=== PATIENT | female | born 1940 | race Caucasian/White ===

== ENCOUNTER → 2017-06-07 11:14 | Outpatient (CLI) | payer MEDICARE, SELFPAY ==
[2017-06-07 13:07] LABS: Absolute Lymphocyte Count 1.81 X10^3/ul (0.83-4.51); Absolute Neutrophil Count 4.9 X10^3/uL (2.0-7.7); Basophil# 0.03 X10^3/uL; Basophil% 0.4 % (0-1); Eosinophil# 0.06 X10^3/uL; Eosinophils% 0.8 % (0-5); Hematocrit 45.4 % (37-47); Hemoglobin 14.9 g/dl (12.0-15.0); Lymphocyte # 1.81 X10^3/ul (4.0); Lymphocyte % 24.3 % (19-41); Mean Corp Hgb Conc 32.8 g/gl (32-36); Mean Corpuscular Hgb 31.8 pg (27.0-32.0); Mean Corpuscular Volume 96.8 fL (81-99); Mean Platelet Vol. 12.1 fl (6.2-12.0); Monocyte# 0.66 X10^3/uL; Monocyte% 8.8 % (0-10); Neutrophil # 4.85 X10^3/uL (2.7-7.7); Platelet Count 259 K/mm3 (150-450); RBC Distribution Width CV 13.5 % (11.6-14.6); RBC Distribution Width SD 47.9 fl (35.1-43.9); Red Blood Count 4.69 M/mm3 (4.2-5.4); White Blood Count 7.5 K/mm3 (4.4-11.0)
[2017-06-07 13:11] LABS: POSITIVE COUNT NO; POSITIVE DIFFERENTIAL NO; POSITIVE MORPHOLOGY NO
[2017-06-07 13:20] LABS: D-Dimer Quantitative (DVT/PE) 0.61 FEU/ug/m (0.27-0.49)
[2017-06-07 13:26] LABS: Vitamin D,25 Hydroxy 31.7 ng/mL (29.95-100.01)
[2017-06-07 13:29] LABS: AST(SGOT) 15 U/L (15-37); Alanine Aminotransfer ALT/SGPT 23 U/L (13-56); Albumin, Serum 3.6 g/dL (3.2-5.0); Alkaline Phosphatase 58 U/L (45-117); Anion Gap 8 (5-15); BUN 17 mg/dL (7-18); BUN/Creat Ratio 18.1 RATIO (10-20); Calcium,Total 8.7 mg/dL (8.5-10.1); Chloride 106 mmol/L (98-107); Creatinine, Serum 0.94 mg/dL (0.55-1.02); EST Glomerular Filtration Rate 61 mL/min (>60); Est Glom Filt Rate - Afr Amer 74 mL/min (>60); Globulin 3.6 g/dL (2.2-4.2); Glucose 91 mg/dL (74-106); Potassium 3.9 mmol/L (3.5-5.1); Protein, Total 7.2 g/dL (6.4-8.2); Sodium Level 138 mmol/L (136-145); Thyroid Stim Hormone (TSH) 1.92 uIU/mL (0.358-3.74)
[2017-06-07 13:35] LABS: BNP,B-Type NATRIURETIC PEPTIDE 20.7 pg/mL (0-100)
== END ==
PROVIDERS: Family Provider Family Medicine Geriatric Medicine; PCP Family Medicine Geriatric Medicine; Visit Provider Family Medicine Geriatric Medicine
DX: R06.02 Shortness of breath (principal); E55.9 Vitamin D deficiency, unspecified; I10 Essential (primary) hypertension
CPT/HCPCS: 36415; 80053; 82306; 83880; 84443; 85025; 85379

== ENCOUNTER → 2017-06-13 14:49 | Outpatient (CLI) | payer MEDICARE, SELFPAY ==
--- NOTE | 2017-06-13 | IMM_PTH ---
PATIENT: BRIANNE CALL LOC: [facility] U#:[id number] AGE/SX: 84/F ROOM: RE06/13/[address]: Dr. Scott Hull MD : 1940 BED: DIS: SPEC #: [id number] RECD: 06/15/17 13:23 STATUS: ANDREW REQ #: [id number] PEGGY: 06/13/17 00:[address]: Scott Hull [facility] DEPT: IMMUNOHISTOCHEMISTRY RECD BY: Ching Sanderson Tissues: Skin of face, NOS Procedures: BCL-2 (add) CD10 (add) CK14 (add) CK5-6 (add) Vimentin (add) Pankeratin (initial) P40 (add) PHYSICIAN & INSTITUTION [place] [id number] SPECIMEN INFORMATION: Tissue Source: Face, right side of nose Clinical Info: L98.9 Specimen Number: [id number] CPT code: 28430, 16360 x6 METHODOLOGY: Deparaffinized sections of prefer/formalin-fixed tissue or PAP/DQ stained slides are incubated with monoclonal/polyclonal antibodies/oligonucleotide probes. Localization is made via biotin free immunoperoxidase method. Appropriate controls are performed and reacted as expected. Results on target cell population are indicated in the following table: RESULTS: ANTIBODY / CLONE RESULT AE1-3 (AE1/AE3/PCK26) positive BCL-2 (bcl-2/100/D5) positive CD10 (56C6) positive, focal Vimentin (V9) negative CK5-6 (D5 & 1684) positive CK14 (LL002) positive P40 (BC28) positive These tests were developed and their performance characteristics determined by [facility]. They may not have been cleared or approved by the U.S. Food and Drug Administration. The FDA has determined that such clearance or approval is not necessary. INTERPRETATION: Skin lesion of nose, biopsy: Consistent with basosquamous carcinoma. AM:sanjuanita 06/19/17 Case has been reviewed in consultation with Dr. Koehler who concurs with the above diagnosis. IDC:LEE ANN
--- NOTE | 2017-06-13 13:08 | TISS_PTH ---
PATIENT: BRIANNE CALL LOC: [facility] U#:[id number] AGE/SX: 84/F ROOM: RE06/13/[address]: Dr. Scott Hull MD : 1940 BED: DIS: SPEC #: [id number] RECD: 06/13/17 15:40 STATUS: ANDREW WENDIE #: [id number] PEGGY: 06/13/17 13:[address]: Scott Hull [facility] DEPT: SURGICAL PATHOLOGY RECD BY: Digna Avendano Tissues: Skin of nose, NOS Procedures: Surgery Specimen Level IV HEADER OPERATION: Not noted PRE-OP DIAGNOSIS: L98.9, 709.9 TISSUE SUBMITTED: Face, right side of nose MICROSCOPIC DIAGNOSIS Skin lesion of nose, biopsy: Consistent with basosquamous carcinoma. AM:sanjuanita 06/19/17 COMMENT The lesion extends to the deep margin of excision. Clinical correlation is necessary. Case has been reviewed in consultation with Dr. Koehler who concurs with the above diagnosis. IDC:SJ MICROSCOPIC DESCRIPTION Slides are reviewed. GROSS DESCRIPTION Received is one container labeled with the patient's name and not further designated. The specimen consists of a discoid fragment of light chadwick skin measuring 0.8 x 0.7 x 0.2 cm. The specimen is inked, bisected and totally submitted in one cassette. / AM:sanjuanita 06/14/17 TC:0 CPT: 33452
== END ==
PROVIDERS: Family Provider Family Medicine Geriatric Medicine; PCP Family Medicine Geriatric Medicine; Visit Provider Family Medicine Geriatric Medicine
DX: L98.9 Disorder of the skin and subcutaneous tissue, unspecified (principal)
CPT/HCPCS: 88305; 88341; 88342

== ENCOUNTER → 2017-07-26 07:58 | Outpatient (CLI) | payer MEDICARE, SELFPAY ==
[2017-07-26 08:37] LABS: Absolute Lymphocyte Count 1.76 X10^3/ul (0.83-4.51); Basophil# 0.04 X10^3/uL; Basophil% 0.5 % (0-1); Eosinophil# 0.13 X10^3/uL; Eosinophils% 1.7 % (0-5); Hematocrit 43.3 % (37-47); Hemoglobin 14.4 g/dl (12.0-15.0); Lymphocyte # 1.76 X10^3/ul (4.0); Lymphocyte % 22.8 % (19-41); Mean Corp Hgb Conc 33.3 g/gl (32-36); Mean Corpuscular Hgb 32.7 pg (27.0-32.0); Mean Corpuscular Volume 98.4 fL (81-99); Monocyte# 0.73 X10^3/uL; Monocyte% 9.4 % (0-10); Neutrophil # 5.03 X10^3/uL (2.7-7.7); Neutrophil % 65.1 % (47-70); Platelet Count 228 K/mm3 (150-450); RBC Distribution Width CV 13.7 % (11.6-14.6); White Blood Count 7.7 K/mm3 (4.4-11.0)
[2017-07-26 08:38] LABS: POSITIVE COUNT NO; POSITIVE DIFFERENTIAL NO; POSITIVE MORPHOLOGY NO
== END ==
PROVIDERS: Family Provider Family Medicine Geriatric Medicine; PCP Family Medicine Geriatric Medicine; Visit Provider Specialist
DX: M17.11 Unilateral primary osteoarthritis, right knee (principal)
CPT/HCPCS: 36415; 85025

== ENCOUNTER → 2017-09-07 13:54 | Outpatient (CLI) | payer MEDICARE, SELFPAY ==
[2017-09-07 16:49] LABS: AST(SGOT) 12 U/L (15-37); Alanine Aminotransfer ALT/SGPT 16 U/L (13-56); Albumin, Serum 3.8 g/dL (3.2-5.0); Alkaline Phosphatase 49 U/L (45-117); Bilirubin, Direct 0.21 mg/dL (0.00-0.30); Globulin 2.8 g/dL (2.2-4.2); Protein, Total 6.6 g/dL (6.4-8.2); Thyroid Stim Hormone (TSH) 1.66 uIU/mL (0.358-3.74)
== END ==
PROVIDERS: Family Provider Family Medicine Geriatric Medicine; PCP Family Medicine Geriatric Medicine; Visit Provider Family Medicine Geriatric Medicine
DX: I10 Essential (primary) hypertension (principal)
CPT/HCPCS: 36415; 80076; 82306; 84443

== ENCOUNTER → 2017-09-11 09:25 | Outpatient (CLI) | payer MEDICARE, SELFPAY ==
--- NOTE | 2017-09-11 09:26 | STE_ITS ---
Reason For Study: AFIB/FLUTTER Stress Results Protocol: Dobutamine Maximum Predicted HR: 144 bpm Target HR: 122 bpm% Maximum Predicted HR: 90 % DurationHeart Rate Stage (mm:ss) (bpm) BPDos e Comment BASELINE 70 134/73 0.2 ML STAGE 1 3:25 80 152/8610.000.1 ML STAGE 2 3:00 12 0 156/7220.00 STAGE 3 2:22 12 9 136/5030.000.2 ML RECOVERY 90 128/81 0.2 ML Stress Duration: 8:47 mm:ss Maximum Stress HR: 129 bpm Baseline Echocardiogram Findings The estimated ejection fraction is 65 %. Stress Echo Wall motion Data Resting WMIntermediate WMStress WM Resting Wall Motion Wall Motion Stress No regional wall motion No regional wall motion abnormalities noted. abnormalities noted. EKG Data Atrial fibrillation with controlled vent response. The patient was titrated from 10 mcg to a maximun of 30 mcg of dobutamine during the stress. During dobutamine infusion, there were no ST or T wave changes noted to suggest ischemia. No clinical angina was noted. Interpretation Summary The study was technically difficult. Contrast injection was performed. The estimated ejection fraction is 65 %. The patient was titrated from 10 mcg to a maximun of 30 mcg of dobutamine during the stress. Normal, adequate, dobutamine echocardiogram. Negative for ischemia by EKG and echocardiographic criteria. No anginal symptoms noted. Baseline atrial fibrillation with rare PVCs during infusion. Appropriate blood pressure response to dobutamine. Decreased sensitivity due to poor echo windows requiring Definity agent enhancement. Final LVEF is 75%. Baseline peak gradient across the aortic valve estimated to be 28 mmHg. No complications Ordering Physician: Gerald Barragna Referring Physician: Gerald Barragan Performed By: Genoveva Arias, TYLER, RVT
== END ==
PROVIDERS: Family Provider Family Medicine Geriatric Medicine; PCP Family Medicine Geriatric Medicine; Visit Provider Internal Medicine Cardiovascular Disease
DX: Z01.810 Encounter for preprocedural cardiovascular examination (principal); Z95.2 Presence of prosthetic heart valve; Z90.710 Acquired absence of both cervix and uterus; Z98.890 Other specified postprocedural states; I10 Essential (primary) hypertension; Z90.49 Acquired absence of other specified parts of digestive tract
CPT/HCPCS: 93017; 93350; J7030; Q9957; A4216; C8928

== ENCOUNTER → 2017-09-13 08:31 | Outpatient (CLI) | payer MEDICARE, SELFPAY ==
--- NOTE | 2017-09-13 08:32 | ECHOD_ITS ---
Reason For Study: AFIB Procedure This was a 2D Doppler, Color Flow transthoracic echocardiogram. Exam performed in department. Left Ventricle Normal size and thickness. The estimated ejection fraction is 60 %. No regional wall motion abnormalities noted. Right Ventricle Mildly dilated right ventricle. Normal systolic function. Atria The left atrium is severely enlarged. Normal right atrium. Normal atrial septum. Mitral Valve Mild diffuse mitral valve thickening. Severe mitral annular calcification extending into the posterior leaflet. Trivial mitral valve insufficiency. Tricuspid Valve Normal tricuspid valve. Trivial tricuspid valve insufficiency. Right ventricular systolic pressure estimated to be 34 mmHg. Aortic Valve Peak aortic valve gradient 22 mmHg. Mean aortic valve gradient 13 mmHg. Bioprosthetic aortic valve. Great Vessels Normal aortic root. Mild atherosclerosis of the aortic arch. Normal inferior vena cava. Inferior vena cava collapse with sniff. Pericardium/Pleural No pericardial effusion. MMode/2D Measurements & Calculations LVIDd: 4.4 cm IVSd: 1.1 cm LVOT diam: 2.0 cm LVIDs: 3.1 cm LVPWd: 1.2 cm LVOT area: 3.2 cm2 RVDd: 3.5 cm FS: 29.0 % Ao root diam: 3.4 cm LAV(MOD-bp): 85.3 ml LA dimension: 4.5 cm LAV(MOD-bp) Indexed: 43.3 ml/m2 LA A4 area: 26.4 cm2 LAV(MOD-sp2): 84.0 ml LAV(MOD-sp4): 87.0 ml RA A4 area: 18.5 cm2 Doppler Measurements & Calculations MV E max sujey: 96.4 cm/sec MV V2 max: 111.7 cm/sec Ao V2 max: 233.6 cm/sec MV max P.0 mmHg Ao max P.0 mmHg MV V2 mean: 45.8 cm/sec Ao V2 mean: 174.1 cm/sec MV mean P.2 mmHg Ao mean P.3 mmHg MV V2 VTI: 34.1 cm Ao V2 VTI: 54.0 cm MVA(VTI): 1.3 cm2 RAMÓN(I,D): 0.81 cm2 RAMÓN(V,D): 0.79 cm2 LV V1 max: 58.1 cm/sec SV(LVOT): 44.0 ml PA V2 max: 73.0 cm/sec LV V1 max P.4 mmHg LV V1 mean P.86 mmHg LV V1 mean: 44.7 cm/sec LV V1 VTI: 13.8 cm TR max sujey: 221.5 cm/sec TR max P.7 mmHg Interpretation Summary The estimated ejection fraction is 60 %. Right ventricular systolic pressure estimated to be 34 mmHg. normal functioning bioprosthetic aortic valve. Mildly dilated right ventricle. Pt appears to be in atrial fibrillation. Compared to echo report dated 01/09/2017, pt now in atrial fibrillation and RVSP has gone from 18 to 34 mm Hg. Ordering Physician: Gerald Barragan Referring Physician: LUCINDA GALLAGHER [facility] Performed By: Corrie Wooten, TYLER, RVT
== END ==
PROVIDERS: Family Provider Family Medicine Geriatric Medicine; PCP Family Medicine Geriatric Medicine; Visit Provider Internal Medicine Cardiovascular Disease
DX: I10 Essential (primary) hypertension (principal); Z98.890 Other specified postprocedural states; Z90.710 Acquired absence of both cervix and uterus; Z90.49 Acquired absence of other specified parts of digestive tract; Z95.2 Presence of prosthetic heart valve; I50.32 Chronic diastolic (congestive) heart failure
CPT/HCPCS: 36415; 80048; 93306

== ENCOUNTER → 2017-09-13 10:18 | Outpatient (CLI) | payer MEDICARE, SELFPAY ==
[2017-09-13 11:43] LABS: Anion Gap 9 (5-15); BUN 37 mg/dL (7-18); Calcium,Total 9.2 mg/dL (8.5-10.1); Chloride 104 mmol/L (98-107); Creatinine, Serum 1.37 mg/dL (0.55-1.02); EST Glomerular Filtration Rate 40 mL/min (>60); Est Glom Filt Rate - Afr Amer 48 mL/min (>60); Glucose 93 mg/dL (74-106); Potassium 4.1 mmol/L (3.5-5.1); Sodium Level 138 mmol/L (136-145)
== END ==
PROVIDERS: Family Provider Family Medicine Geriatric Medicine; PCP Family Medicine Geriatric Medicine; Visit Provider Family Medicine Geriatric Medicine
DX: I50.32 Chronic diastolic (congestive) heart failure (principal)
CPT/HCPCS: 36415; 80048

== ENCOUNTER 2017-09-19 06:47 | Inpatient (IN) | payer MEDICARE, SELFPAY ==
[2017-09-07 09:01] VITALS: BP 150/81; PULSE 49; RESP 16; TEMP 36.3; O2SAT 95; BMI 39.6
[2017-09-07 11:08] LABS: Absolute Neutrophil Count 4.6 X10^3/uL (2.0-7.7); Basophil# 0.05 X10^3/uL; Basophil% 0.7 % (0-1); Eosinophil# 0.11 X10^3/uL; Eosinophils% 1.5 % (0-5); Hematocrit 45.8 % (37-47); Hemoglobin 15.2 g/dl (12.0-15.0); Lymphocyte % 23.8 % (19-41); Mean Corp Hgb Conc 33.2 g/gl (32-36); Mean Corpuscular Hgb 32.1 pg (27.0-32.0); Mean Corpuscular Volume 96.8 fL (81-99); Mean Platelet Vol. 12.3 fl (6.2-12.0); Monocyte# 0.65 X10^3/uL; Monocyte% 9.1 % (0-10); Neutrophil # 4.59 X10^3/uL (2.7-7.7); Neutrophil % 64.2 % (47-70); Platelet Count 223 K/mm3 (150-450); RBC Distribution Width CV 13.4 % (11.6-14.6); Red Blood Count 4.73 M/mm3 (4.2-5.4); White Blood Count 7.2 K/mm3 (4.4-11.0)
[2017-09-07 11:10] LABS: POSITIVE COUNT NO; POSITIVE DIFFERENTIAL NO; POSITIVE MORPHOLOGY NO
[2017-09-07 11:41] LABS: Anion Gap 6 (5-15); BUN 19 mg/dL (7-18); BUN/Creat Ratio 19.2 RATIO (10-20); Calcium,Total 8.8 mg/dL (8.5-10.1); Chloride 106 mmol/L (98-107); Creatinine, Serum 0.99 mg/dL (0.55-1.02); EST Glomerular Filtration Rate 58 mL/min (>60); Est Glom Filt Rate - Afr Amer 70 mL/min (>60); Estimated Creatinine Clearance 38.24 ml/min; Glucose 84 mg/dL (74-106); Potassium 3.9 mmol/L (3.5-5.1); Sodium Level 137 mmol/L (136-145)
--- NOTE | 2017-09-07 14:11 | PCM.HP.BLA ---
History and Physical DATE OF SURGERY: 09/19/2017 SCHEDULED PROCEDURE: Right total knee arthroplasty HISTORY OF PRESENT ILLNESS: This is a 76-year-old female who is been having ongoing pain in bilateral knees for over 10 years. Patient's right knee has been greater than her left knee. Patient does complain of stiffness in the knees. She has pain that is aching. Pain is increased with going up and down stairs. Pain is located behind the knee. She does have difficult time with prolonged walking and sitting. Patient states she has increased pain with activities of daily living including bathing and housework. She feels unsafe going on long walks. Patient has tried conservative measures consisting of rest, ice, elevation with minimal relief. She has had multiple cortisone injections with minimal relief. Patient has tried home exercises with no relief in symptoms. Patient has been using oral medications consisting of ibuprofen with minimal relief. She denies previous surgery on the right knee. Patient currently denies any chest pain, shortness of breath, fevers chills, recent infections. Patient does have a medical history pertinent for hypertension and previous heart valve replacement. 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 Barragan for her policewoman. We are obtaining surgical clearance from patient's policewoman. REVIEW OF SYSTEMS: ROS: Const: Denies change in appetite, fever and weight change. CV: Reports irregular heartbeat, but denies chest pain and heart murmur. Resp: Reports pneumonia and shortness of breath, but denies cough, tuberculosis and wheezing. GI: Reports heartburn, but denies constipation, diarrhea, nausea, rectal itching, bloody stools and vomiting. : Denies incontinence. Musculo: Reports trouble walking, but denies leg swelling, pain and weakness. Skin: Denies Raynaud's, history of shingles and tattoo. Neuro: Denies ambulatory dysfunction, dizziness, numbness/tingling and tremor. Psych: Reports insomnia, but denies anxiety and stress. Osei/Lymph: Denies anemia, bleeding/bruising tendency and past transfusion. Reviewed, no changes. PAST MEDICAL HISTORY: Advance Care Plan: Other Directive, LIVING WILL Effective Date: 07/24/2017 PMH: Medical Problems: Arthritis, High Blood Pressure Accidents: None Surgical Hx: Appendectomy, Heart Valve Replacement, Hysterectomy Anesthesia Complications: None Assistive Devices: Dentures, Glasses Reviewed, no changes. SOCIAL HISTORY: SH: Marital: .Occupation: Retired.Work Status: Retired.Hand Dominance: Right-handed. Personal Habits: Cigarette Use: Never Smoked Cigarettes.Alcohol: Denies use.Drug Use: Denies Use.Enjoy Exercising: Never Exercises. Reviewed, no changes. VITALS: Ht: 62 Wt: 215lb Wt k.524 BMI: 39.3 BP: 138/72 Pulse: 74 Resp: 16 T: 98.1 T: 36.7C ALLERGIES: Lisinopril MEDICATIONS: Losartan Potassium 100 mg 1po qday, Metoprolol Succinate ER 25 mg 1po qday, Vitamin D2 400 Unit 1po qday, Symbicort 160-4.5 mcg/Act 2 puffs bid PRE-OP EXAM: General appearance:NORMAL Other: Eyes: Conjunctivae and lids: NORMAL Pupils: ERR Ears, Nose, Mouth, and Throat: NORMAL Other: Inspection of lips, teeth and gums: NORMAL Other: Neck: Examination of neck: no masses noted. Respiratory: Assessment of respiratory effort: NORMAL Other: Auscultation of lungs: clear to auscultation no wheezes, rhonchi or rales. Cardiovascular: Auscultation of heart: regular rate and rhythm, no murmurs, gallops or rubs. Exam of carotid arteries: NORMAL Other: Gastrointestinal: Exam of abdomen: soft, nontender, nondistended bowel sounds present. PHYSICAL EXAMINATION: Patient walks with an antalgic gait. Right knee has tenderness to palpation of the medial joint line and lateral joint line. Patient does have varus alignment. Range of motion is 0? of extension to 115? of flexion with pain on end range. Sensations intact to light touch. IMAGING STUDIES: X-rays of bilateral knees were obtained at [facility] [place] on July 24, 2017 which does reveal bilateral varus alignment with medial joint space narrowing, subchondral sclerosis, and osteophyte formation consistent with bilateral severe tricompartmental osteoarthritis. IMPRESSION: 1. Severe bilateral knee tricompartmental osteoarthritis 2. Hypertension 3. History of heart valve replacement PLAN: Dr. Gross did discuss and review with the patient all treatment options including surgical versus nonsurgical. Patient wishes to proceed with above-stated procedure. Potential risks, benefits, and complications of this procedure were discussed in detail including but not limited to , infection, nerve and blood vessel damage, persistent pain, numbness, tingling, paresthesias, blood clot, pulmonary embolism, and requirement for further surgery. The patient expressed full understanding has no further questions for the doctor. Patient does agree to proceed with the above-stated procedure and has signed the surgery consent form. Patient will undergo preoperative lab work and EKG. We will obtain surgical clearance from patient's policewoman. ___ I have re-examined the patient. There are no clinical changes since date of exam. ___ See progress notes for changes. ___ Dictated on admission Date: Time: Signature:
--- NOTE | 2017-09-07 14:19 | HP.PCM_ITS ---
History and Physical DATE OF SURGERY: 09/19/2017 SCHEDULED PROCEDURE: Right total knee arthroplasty HISTORY OF PRESENT ILLNESS: This is a 76-year-old female who is been having ongoing pain in bilateral knees for over 10 years. Patient's right knee has been greater than her left knee. Patient does complain of stiffness in the knees. She has pain that is aching. Pain is increased with going up and down stairs. Pain is located behind the knee. She does have difficult time with prolonged walking and sitting. Patient states she has increased pain with activities of daily living including bathing and housework. She feels unsafe going on long walks. Patient has tried conservative measures consisting of rest, ice, elevation with minimal relief. She has had multiple cortisone injections with minimal relief. Patient has tried home exercises with no relief in symptoms. Patient has been using oral medications consisting of ibuprofen with minimal relief. She denies previous surgery on the right knee. Patient currently denies any chest pain, shortness of breath, fevers chills, recent infections. Patient does have a medical history pertinent for hypertension and previous heart valve replacement. 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 We are obtaining surgical clearance from patient's filler shredder machine. REVIEW OF SYSTEMS: ROS: Const: Denies change in appetite, fever and weight change. CV: Reports irregular heartbeat, but denies chest pain and heart murmur. Resp: Reports pneumonia and shortness of breath, but denies cough, tuberculosis and wheezing. GI: Reports heartburn, but denies constipation, diarrhea, nausea, rectal itching , bloody stools and vomiting. : Denies incontinence. Musculo: Reports trouble walking, but denies leg swelling, pain and weakness. Skin: Denies Raynaud's, history of shingles and tattoo. Neuro: Denies ambulatory dysfunction, dizziness, numbness/tingling and tremor. Psych: Reports insomnia, but denies anxiety and stress. Osei/Lymph: Denies anemia, bleeding/bruising tendency and past transfusion. Reviewed, no changes. PAST MEDICAL HISTORY: Advance Care Plan: Other Directive, LIVING WILL Effective Date: 07/24/2017 PMH: Medical Problems: Arthritis, High Blood Pressure Accidents: None Surgical Hx: Appendectomy, Heart Valve Replacement, Hysterectomy Anesthesia Complications: None Assistive Devices: Dentures, Glasses Reviewed, no changes. SOCIAL HISTORY: SH: Marital: .Occupation: Retired.Work Status: Retired.Hand Dominance: Right- handed. Personal Habits: Cigarette Use: Never Smoked Cigarettes.Alcohol: Denies use.Drug Use: Denies Use.Enjoy Exercising: Never Exercises. Reviewed, no changes. VITALS: Ht: 62 Wt: 215lb Wt k.524 BMI: 39.3 BP: 138/72 Pulse: 74 Resp: 16 T: 98.1 T: 36.7C ALLERGIES: Lisinopril MEDICATIONS: Losartan Potassium 100 mg 1po qday, Metoprolol Succinate ER 25 mg 1po qday, Vitamin D2 400 Unit 1po qday, Symbicort 160-4.5 mcg/Act 2 puffs bid PRE-OP EXAM: General appearance:NORMAL Other: Eyes: Conjunctivae and lids: NORMAL Pupils: ERR Ears, Nose, Mouth, and Throat: NORMAL Other: Inspection of lips, teeth and gums: NORMAL Other: Neck: Examination of neck: no masses noted. Respiratory: Assessment of respiratory effort: NORMAL Other: Auscultation of lungs: clear to auscultation no wheezes, rhonchi or rales. Cardiovascular: Auscultation of heart: regular rate and rhythm, no murmurs, gallops or rubs. Exam of carotid arteries: NORMAL Other: Gastrointestinal: Exam of abdomen: soft, nontender, nondistended bowel sounds present. PHYSICAL EXAMINATION: Patient walks with an antalgic gait. Right knee has tenderness to palpation of the medial joint line and lateral joint line. Patient does have varus alignment. Range of motion is 0? of extension to 115? of flexion with pain on end range. Sensations intact to light touch. IMAGING STUDIES: X-rays of bilateral knees were obtained at [facility] [place] on July 24, 2017 which does reveal bilateral varus alignment with medial joint space narrowing, subchondral sclerosis, and osteophyte formation consistent with bilateral severe tricompartmental osteoarthritis. IMPRESSION: 1. Severe bilateral knee tricompartmental osteoarthritis 2. Hypertension 3. History of heart valve replacement PLAN: Dr. Gross did discuss and review with the patient all treatment options including surgical versus nonsurgical. Patient wishes to proceed with above- stated procedure. Potential risks, benefits, and complications of this procedure were discussed in detail including but not limited to , infection , nerve and blood vessel damage, persistent pain, numbness, tingling, paresthesias, blood clot, pulmonary embolism, and requirement for further surgery. The patient expressed full understanding has no further questions for the doctor. Patient does agree to proceed with the above-stated procedure and has signed the surgery consent form. Patient will undergo preoperative lab work and EKG. We will obtain surgical clearance from patient's filler shredder machine. ___ I have re-examined the patient. There are no clinical changes since date of exam. ___ See progress notes for changes. ___ Dictated on admission Date: Time: Signature:
--- NOTE | 2017-09-07 15:54 | SDCEKG_ITS ---
Test Reason : Blood Pressure : / mmHG Vent. Rate : 043 BPM Atrial Rate : 060 BPM P-R Int : 000 ms QRS Dur : 092 ms QT Int : 420 ms P-R-T Axes : 000 -13 024 degrees QTc Int : 354 ms Atrial fibrillation with slow ventricular response Inferior infarct (cited on or before 01-MAY-2015) Cannot rule out Anterior infarct (cited on or before 01-MAY-2015) Abnormal ECG Confirmed by CAROLE FIELD ([id number]), make up editor SHASHA DIEZ ([id number]) on 09/11/2017 2:49:54 PM Referred By: Rios Gross Confirmed By:CAROLE FIELD
[2017-09-19] VITALS (13 sets, daily range): BP systolic 98–149; BP diastolic 40–78; PULSE 46–79; RESP 16–18; TEMP 36.1–37; O2SAT 93–100; BMI 39.6; BMI 40.8
--- NOTE | 2017-09-19 07:06 | RAD_ITS ---
STUDY: X-RAY - LEFT KNEE REASON FOR EXAM: Female, 76 years old. Total knee replacement. TECHNIQUE: 2 view(s) of the knee. COMPARISON: Comparison is made with prior examination dated November 27, 2015. FINDINGS: Normal visualized distal femur. Normal visualized proximal tibia and fibula. Normal proximal tibiofibular articulation. The patient is status post right total knee replacement. There is good alignment Postoperative soft tissue changes. RAD/Knee 1 or 2 Views IMPRESSION: Status post total knee replacement. There is good alignment. Postoperative soft tissue changes. Electronically Signed: Hugo De Leon MD at 14:52 EDT Tel [phone], Service support ,
[2017-09-19] MEDS: oxyCODONE HCl Cr 10 MG Tablet PO (07:43)
[2017-09-19] MEDS: Acetaminophen 500 MG Tablet 1000 MG PO ×3 (07:43→22:42)
[2017-09-19] MEDS: Scopolamine 1mg/72hr Patch 1 PATCH TD (08:00)
[2017-09-19] MEDS: Lactated Ringers 1,000 ML 999 ML IV (08:10)
[2017-09-19] MEDS: Cefazolin 2 GM in 0.9% Normal Saline 100 ML IV (09:16)
--- NOTE | 2017-09-19 10:37 | PCM.OPRPT ---
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 Guero size 3 triathlon cruciate retaining distal femoral component 2. Guero size 4 universal tibial baseplate 3. Guero X3 11 mm CS polyethylene 4. Guero X3 27 mm symmetric patella Brief history operative indications: 76-year-old f with history of right knee osteoarthritis with radiographic findings with loss of joint space, osteophyte formation and subchondral sclerosis. Failed conservative measures as mentioned in the H&P. Discussion of total knee arthroplasty as well as risk and benefits were discussed the patient including but not limited to blood loss, DVTs, PEs, neurovascular damage, general risk of anesthesia including loss of life, and stiffness or instability were discussed with patient. Patient demonstrated understanding and was able to sign informed consent. Procedure: On the date of procedure patient's right lower extremity was marked in the preoperative area. The patient was then taken back to the operating room where the patient was placed on the table in the supine position. All bony prominences were identified a well-padded. Anesthesia assumed control of the C-spine and airway and remained controlled throughout the remainder of the procedure. A tourniquet was placed on the right upper thigh and the leg was prepped in a sterile fashion. The surgeon then scrubbed at this time. Upon reentering the room the right lower extremity was draped in a standard orthopedic fashion. A timeout was then called and everyone agreed upon the side, the site, the procedure to be performed, patient's identity and antibiotics given. Esmarch bandage was used to exsanguinate the extremity and the tourniquet was placed up to 250 mmHg with the knee in flexion. A midline skin incision was made and sharp dissection was taken down through skin subcutaneous tissue and fat. The standard medial parapatellar incision was made and the patella was subluxed laterally. The standard deep MCL release was done and the fat pad was resected. Next our attention was directed to the femur. Navigation pins were placed, navigation was registered. The distal femoral cutting block was pinned into place and 10 mm of distal femur resection was completed. The distal femoral cut was verified with navigation. The knee was then placed in deep flexion in the standard [employer] sizing guide was used to place the femoral component in 3? external rotation based on the posterior condyles. A size 3 4-in-1 cutting block was selected and pinned into place. The anterior cut was then made and checked for notching. The subsequent anterior chamfer cuts, posterior condylar cuts and posterior chamfer cuts were made while ensuring the MCL and LCL were protected. Our attention was then turned to the tibia where the navigation pins were placed, navigation was registered. [employer] tibial cutting guide was used to make the appropriate tibial cut 90 degrees from the mechanical axis. Navigation was then used to verify the cut. A size 4 tibial base plate was selected. the knee was flexed to 90 degrees and the soft tissues and posterior osteophytes were removed from the joint. 40 cc of the periarticular injection was injected into the posterior medial corner of the joint. Standard box cutting jig was placed in a box cut was made. The appropriate trials were then placed on the femur and tibia. A trial polyethylene was trialed to ensure proper balancing and stability of the knee. Patella tracking, was then verified and corrected appropriately as needed. The appropriate tibial internal rotation was then marked with a bovie. Our attention was then directed to the patella. The patella was everted and a flat resection was made. The lug holes were drilled and the patella trial was placed. Patellar tracking was checked and deemed appropriate. Once we were happy lug holes were drilled for the femur and trial components were removed. the tibia was subluxed and pinned into place and the keel was punched and the canal was reamed. Final components were verified and opened, and cement was mixed in a vacuum. [place] Simplex cement was used. The wound was copiously irrigated with normal saline. When the cement was ready the components were cemented into place starting with the tibia, femur and finally the patella. The trial poly component was placed and the knee was placed in full extension. All excess cement was removed in the process. Once the cement had cured the tracking, alignment and balance were verified and a size 11 mm polyethylene component was placed. Once the final components were placed the wound was copiously irrigated with normal saline solution and the periarticular injection was given. The wound was closed in a layer mayorga fashion using #1 vicryl interrupted sutures for the arthrotomy, 2-0 interrupted Vicryl suture for the subcuticular layer and alicia for final skin closure. A sterile compressive dressing was then placed. The patient was then awakened from anesthesia, transferred to the [place] and transferred to the PACU for recovery. Post op plan DVT ppx: Patient will restart Eliquis, thigh high compression stockings Follow up: in office in 2 weeks for wound check PT: to start POD #0 at hospital, outpatient PT should be arranged. My physician photographer assistant was a vital part of this case. He was important in appropriate retraction during the case, and protection of soft tissues during bony cuts. His intimate knowledge of the case and my steps aided in safe and expedient completion of the procedure as well as appropriate position of the leg during the case. He was also vital in assisting with closure under my direct supervision. Grafts/Implants Used: [place] triathlon total knee - Complications None - Admit VTE Documentation VTE Present on Admission: No VTE Mechan Device Prophylaxis: SCD's, Thigh High GEORGI Hose VTE Pharm Prophylaxis ordered?: Yes
--- NOTE | 2017-09-19 10:41 | OP.PCM_ITS ---
Report of Operation Date of Procedure: 09/19/17 Pre-Operative Diagnosis: Right knee primary Osteoarthritis Post-Operative Diagnosis: Right knee primary Osteoarthritis Surgery/Procedure Performed:: Right total knee replacement Description of Surgical Findings:: Cemented posterior stabilized leach tank tender: Lennox Chun Type of Anesthesia:: Spinal Anesthesiologist: James Lizama Special Medications: 2 g Ancef, 1 g TXA at incision, 1 g TXA closure, 10 mg Decadron, joint cocktail (5 mg Duramorph, 30 mL of 0.5% Ropivicaine, 1000 units of epinephrine, 30 mg of Toradol) Specimen's removed: Bony cuts Estimated Blood Loss (mL): 50 Fluids Replaced: 1100 mL crystalloid Description of Procedure: Implants used: 1. Guero size 3 triathlon cruciate retaining distal femoral component 2. Guero size 4 universal tibial baseplate 3. Guero X3 11 mm CS polyethylene 4. Guero X3 27 mm symmetric patella Brief history operative indications: 76-year-old f with history of right knee osteoarthritis with radiographic findings with loss of joint space, osteophyte formation and subchondral sclerosis. Failed conservative measures as mentioned in the H&P. Discussion of total knee arthroplasty as well as risk and benefits were discussed the patient including but not limited to blood loss, DVTs, PEs, neurovascular damage , general risk of anesthesia including loss of life, and stiffness or instability were discussed with patient. Patient demonstrated understanding and was able to sign informed consent. Procedure: On the date of procedure patient's right lower extremity was marked in the preoperative area. The patient was then taken back to the operating room where the patient was placed on the table in the supine position. All bony prominences were identified a well-padded. Anesthesia assumed control of the C- spine and airway and remained controlled throughout the remainder of the procedure. A tourniquet was placed on the right upper thigh and the leg was prepped in a sterile fashion. The surgeon then scrubbed at this time. Upon reentering the room the right lower extremity was draped in a standard orthopedic fashion. A timeout was then called and everyone agreed upon the side , the site, the procedure to be performed, patient's identity and antibiotics given. Esmarch bandage was used to exsanguinate the extremity and the tourniquet was placed up to 250 mmHg with the knee in flexion. A midline skin incision was made and sharp dissection was taken down through skin subcutaneous tissue and fat. The standard medial parapatellar incision was made and the patella was subluxed laterally. The standard deep MCL release was done and the fat pad was resected. Next our attention was directed to the femur. Navigation pins were placed, navigation was registered. The distal femoral cutting block was pinned into place and 10 mm of distal femur resection was completed. The distal femoral cut was verified with navigation. The knee was then placed in deep flexion in the standard [employer] sizing guide was used to place the femoral component in 3? external rotation based on the posterior condyles. A size 3 4-in-1 cutting block was selected and pinned into place. The anterior cut was then made and checked for notching. The subsequent anterior chamfer cuts, posterior condylar cuts and posterior chamfer cuts were made while ensuring the MCL and LCL were protected. Our attention was then turned to the tibia where the navigation pins were placed , navigation was registered. [employer] tibial cutting guide was used to make the appropriate tibial cut 90 degrees from the mechanical axis. Navigation was then used to verify the cut. A size 4 tibial base plate was selected. the knee was flexed to 90 degrees and the soft tissues and posterior osteophytes were removed from the joint. 40 cc of the periarticular injection was injected into the posterior medial corner of the joint. Standard box cutting jig was placed in a box cut was made. The appropriate trials were then placed on the femur and tibia. A trial polyethylene was trialed to ensure proper balancing and stability of the knee. Patella tracking, was then verified and corrected appropriately as needed. The appropriate tibial internal rotation was then marked with a bovie. Our attention was then directed to the patella. The patella was everted and a flat resection was made. The lug holes were drilled and the patella trial was placed. Patellar tracking was checked and deemed appropriate. Once we were happy lug holes were drilled for the femur and trial components were removed. the tibia was subluxed and pinned into place and the keel was punched and the canal was reamed. Final components were verified and opened, and cement was mixed in a vacuum. Guero Simplex cement was used. The wound was copiously irrigated with normal saline. When the cement was ready the components were cemented into place starting with the tibia, femur and finally the patella. The trial poly component was placed and the knee was placed in full extension. All excess cement was removed in the process. Once the cement had cured the tracking, alignment and balance were verified and a size 11 mm polyethylene component was placed. Once the final components were placed the wound was copiously irrigated with normal saline solution and the periarticular injection was given. The wound was closed in a layer [place]orga fashion using #1 vicryl interrupted sutures for the arthrotomy, 2-0 interrupted Vicryl suture for the subcuticular layer and alicia for final skin closure. A sterile compressive dressing was then placed. The patient was then awakened from anesthesia, transferred to the [place] and transferred to the PACU for recovery. Post op plan DVT ppx: Patient will restart Eliquis, thigh high compression stockings Follow up: in office in 2 weeks for wound check PT: to start POD #0 at hospital, outpatient PT should be arranged. My physician pharmacy innovation assistant was a vital part of this case. He was important in appropriate retraction during the case, and protection of soft tissues during bony cuts. His intimate knowledge of the case and my steps aided in safe and expedient completion of the procedure as well as appropriate position of the leg during the case. He was also vital in assisting with closure under my direct supervision. Grafts/Implants Used: Guero triathlon total knee - Complications None - Admit VTE Documentation VTE Present on Admission: No VTE Mechan Device Prophylaxis: SCD's, Thigh High GEORGI Hose VTE Pharm Prophylaxis ordered?: Yes
[2017-09-19] MEDS: Metoprolol Tartrate 25 MG Tablet 12.5 MG PO (14:29)
[2017-09-19] MEDS: Senna/Docusate Sodium 1 Tablet 2 TABLET PO ×2 (14:29→22:42)
[2017-09-19] MEDS: Losartan Potassium 100 MG Tablet 50 MG PO (14:30)
[2017-09-19] MEDS: Famotidine 20 MG Tablet PO (14:30)
--- NOTE | 2017-09-19 15:25 | CASEMGMT ---
LEW WEISS Face to Face with patient for initial transition planning/care coordination assessment. LEW WEISS introduced self and role at [facility]. Patient sitting up in bed, alert and oriented. Patient willing to participate in assessment and is able to answer all questions appropriately. Care providers, pharmacy, and demographics verified. Patient lives with son in a 1st floor apartment with 2 steps to enter apartment. Patient states that she has cane and walker at home. Patient wishes to discharge home with [facility] and is agreeable to [facility]. Patient states she has no further needs or concerns at this time. RN ABHISHEK sent referral to [facility] and they are able to accept the patietn. CM to follow for discharge planning needs that may arise. Disposition Plan: Patient to discharge home with [facility], family support, and follow-up plans in place.
[2017-09-19] MEDS: Lactated Ringers 1,000 ML 125 ML IV (15:54)
[2017-09-19] MEDS: Cefazolin 1 GM/50 ML BAG IV (17:22)
--- NOTE | 2017-09-19 20:30 | NURSING ---
IV site to left upper forearm area intact & patent, but does appear slightly puffy. Area warm & soft, does have some bruising, but pt denies pain. will continue to monitor.
[2017-09-19] MEDS: Albuterol 2.5 MG/3 ML VIAL.NEB. INHALATION (21:40)
[2017-09-19] MEDS: Budesonide Respules 0.5 MG/2 ML AMPUL.NEB. INHALATION (21:50)
[2017-09-19] MEDS: 0.9% NaCl Peripheral Flush Adult/Peds IV (22:57)
[2017-09-20] MEDS: Cefazolin 1 GM/50 ML BAG IV (00:27)
[2017-09-20 02:33] VITALS: BP 159/82; PULSE 50; RESP 18; TEMP 36.3; O2SAT 97
[2017-09-20] MEDS: Acetaminophen 500 MG Tablet 1000 MG PO ×2 (06:05→15:05)
[2017-09-20 06:28] LABS: Hematocrit 41.3 % (37-47); Hemoglobin 13.2 g/dl (12.0-15.0); Mean Corpuscular Hgb 31.4 pg (27.0-32.0); Mean Corpuscular Volume 98.1 fL (81-99); Mean Platelet Vol. 12.4 fl (6.2-12.0); Platelet Count 198 K/mm3 (150-450); RBC Distribution Width CV 13.4 % (11.6-14.6); RBC Distribution Width SD 48.2 fl (35.1-43.9); Red Blood Count 4.21 M/mm3 (4.2-5.4); White Blood Count 9.7 K/mm3 (4.4-11.0)
[2017-09-20 06:33] LABS: Anion Gap 9 (5-15); BUN 31 mg/dL (7-18); BUN/Creat Ratio 27.7 RATIO (10-20); Calcium,Total 8.2 mg/dL (8.5-10.1); Chloride 108 mmol/L (98-107); Creatinine, Serum 1.12 mg/dL (0.55-1.02); EST Glomerular Filtration Rate 50 mL/min (>60); Est Glom Filt Rate - Afr Amer 61 mL/min (>60); Glucose 89 mg/dL (74-106); Potassium 4.4 mmol/L (3.5-5.1); Sodium Level 141 mmol/L (136-145)
[2017-09-20 06:49] LABS: Scan Indicated on CBC? Y/N NO
[2017-09-20] MEDS: Budesonide Respules 0.5 MG/2 ML AMPUL.NEB. INHALATION (07:09)
[2017-09-20] MEDS: Albuterol 2.5 MG/3 ML VIAL.NEB. INHALATION ×2 (07:09→13:17)
[2017-09-20 07:10] VITALS: PULSE 60; RESP 18; O2SAT 90
--- NOTE | 2017-09-20 08:34 | PN.ORTHO_ITS ---
Subjective: The patient was sitting in bedside chair upon examination. Patient denies any chest pain, shortness of breath, dizziness, lightheadedness, nausea or vomiting , or calf pain. Pain is controlled on medications. No adverse overnight events. Overall patient is doing well at this point. Patient does wish to try to go home today if pain is well controlled and tolerates physical therapy. Objective: Vital signs stable and afebrile. Patient is able to plantarflex and dorsiflex actively. Sensation is intact to light touch to saphenous, sural, superficial and deep peroneal, and tibial distribution. Main dressing is clean dry and intact. Distal dressing with old drainage Negative Homans bilaterally, negative signs and symptoms of DVT. - Physical Exam General: Alert, Oriented x3, Cooperative, No apparent distress Vital Signs Temp Pulse Resp BP Pulse Ox 97.4 F L 60 18 159/82 H 90 09/20/17 02:33 09/20/17 07:10 09/20/17 07:10 09/20/17 02:33 09/20/17 07:10 Oxygen Delivery Method Room Air Weight: 101.151 kg Body Mass Index (BMI) 40.8 Intake and Output for Last 24 Hours 09/18/17 09/19/17 09/20/17 23:59 23:59 23:59 Intake Total 2514 / 2514 1329 / 1329 Output Total 150 / 150 Balance 2514 / 2514 1179 / 1179 Laboratory Tests Past 24 Hrs 09/20/17 09/20/17 05:54 05:54 WBC 9.7 RBC 4.21 Hgb 13.2 Hct 41.3 MCV 98.1 MCH 31.4 MCHC 32.0 RDW 13.4 RDW Differential 48.2 H Plt Count 198 MPV 12.4 H Sodium 141 Potassium 4.4 Chloride 108 H Carbon Dioxide 24.0 Anion Gap 9 BUN 31 H Creatinine 1.12 H Estim Creat Clear Calc 33.80 Est GFR (MDRD) Af Amer 61 Est GFR (MDRD) Non-Af 50 L BUN/Creatinine Ratio 27.7 H Glucose 89 Calcium 8.2 L Medical Necessity - Tobacco Use Smoking Status: Never smoker Assessment/Plan All Active Problems (Last Updated 09/11/17 @ 14:38 by Yari Hernandez) New onset atrial fibrillation (Acute ~08/2017) 1. S/P right total knee arthroplasty POD #1 2. Continue Pain Medications: Tylenol and OxyIR 3. DVT Prophylaxis: Patient will restart Eliquis for DVT prophylaxis. 4. PT/OT: Weightbearing as tolerated 5. H & H: 13.2/41.3, asymptomatic 6. Encouraged Incentive Spirometry 7. Disposition: Plan will be for possible discharge home this afternoon if patient's pain is well controlled and tolerates physical therapy. Plan will be for patient to undergo home health physical therapy in which case management has established. Prescriptions will be attached to chart. Patient will follow- up postoperatively per [place] [facility] postop instructions.
--- NOTE | 2017-09-20 08:37 | PCM.DC.TKR ---
Discharge Diet: No Restrictions Discharge Activity: May Not Drive May shower in (days): 1 - Turned dressing away from water Ice area for (Minutes): 20 - every hour while awake. Weight Bearing Status: Weight bearing as tolerated Elevate: Operative Extremity Additional Activity Instructions:: Wear elastic stockings for 2 weeks after your surgery. Call your doctor if your incision/area has: Continuous Slow Oozing, Sudden Increased Bleeding, Increased Pain/ Swelling, Increased Redness, Foul Smelling Discharge Call your doctor if you observe: Fever of 101 or Higher, Coldness, Increased Pain, Numbness or Tingling, Change in Color, Calf discomfort, Uncontrolled pain Remove Dressing in (days):: 4 - Okay to remove dressing on September 24, 2017 Allergies/Adverse Reactions: Allergies lisinopril Adverse Reaction (Verified 09/07/17 08:56) COUGH Medications to take at Discharge budesonide-formoterol HFA 160 mcg-4.5 mcg/actuation aerosol inhaler 2 puff INHALATION BID 07/10/17 cholecalciferol (vitamin D3) 50,000 unit capsule 50,000 unit PO Q30D 07/10/17 losartan 100 mg tablet 100 mg PO DAILY 07/10/17 metoprolol tartrate 25 mg tablet 12.5 mg PO BID tab 07/10/17 apixaban 5 mg tablet 5 mg PO BID #60 tab 09/07/17 Acetaminophen [Tylenol] 1,000 mg PO Q8 tablet 09/20/17 Oxycodone [Oxyir] 5 - 10 mg PO Q4H PRN PRN 6 Days #80 tab 09/20/17 Senna/Docusate Sodium [Senokot-S] 2 tab PO BID #20 tab 09/20/17 The following prescriptions were given: Oxycodone [Oxyir] 5 - 10 mg PO Q4H PRN PRN 6 Days #80 tab PRN Reason: Mod-Severe Pain (4-1010) Senna/Docusate Sodium [Senokot-S] 2 tab PO BID #20 tab Primary Care Physician: Scott Hull Chi, MD [Primary Care Provider] - Test Results: Please Follow Up With: Home Health Physical Therapy When: Patient will be contacted Please Follow Up With: Lennox Chun PA-C When: 10/02/17 @ 8:30 am
[2017-09-20] MEDS: oxyCODONE 5 MG Tablet PO ×2 (10:06→13:49)
[2017-09-20] MEDS: APIXABAN 5 MG TABLET PO (10:07)
[2017-09-20] MEDS: Famotidine 20 MG Tablet PO (10:07)
[2017-09-20] MEDS: Losartan Potassium 100 MG Tablet 50 MG PO (10:07)
[2017-09-20 10:08] VITALS: PULSE 61
[2017-09-20] MEDS: Senna/Docusate Sodium 1 Tablet 2 TABLET PO (10:08)
[2017-09-20] MEDS: Metoprolol Tartrate 25 MG Tablet 12.5 MG PO (10:08)
[2017-09-20 10:55] VITALS: BP 132/55; PULSE 61; RESP 18; TEMP 36.7; O2SAT 97
[2017-09-20 13:19] VITALS: PULSE 46; RESP 18
== END 2017-09-20 16:38 | disposition home health service (06) | DRG 470 ==
PROVIDERS: Admitting Provider Specialist; Family Provider Family Medicine Geriatric Medicine; PCP Family Medicine Geriatric Medicine; Visit Provider Specialist
PROC: 0SRC0J9 Replacement of Right Knee Joint with Synthetic Substitute, Cemented, Open Approach (ICD-10-PCS; CPT 27447; principal; 2017-09-19 08:55)
DX: M17.11 Unilateral primary osteoarthritis, right knee (principal); Z95.2 Presence of prosthetic heart valve; I10 Essential (primary) hypertension
CPT/HCPCS: 36415; 73560; 80048; 85025; 85027; 87081; 93005; 94640; 97110; 97116; 97162; 97166; 97530; 97535; 97802; 99251; C1776; J7120; A4216; G0463

== ENCOUNTER 2017-12-26 06:33 | Inpatient (IN) | payer MEDICARE, SELFPAY ==
[2017-12-11 15:17] VITALS: BP 142/52; PULSE 48; RESP 16; TEMP 37; O2SAT 95; BMI 39.3
[2017-12-11 15:51] LABS: Absolute Lymphocyte Count 2.08 X10^3/ul (0.83-4.51); Absolute Neutrophil Count 3.9 X10^3/uL (2.0-7.7); Basophil# 0.04 X10^3/uL; Basophil% 0.6 % (0-1); Eosinophil# 0.08 X10^3/uL; Eosinophils% 1.2 % (0-5); Hematocrit 43.6 % (37-47); Hemoglobin 14.5 g/dl (12.0-15.0); Lymphocyte # 2.08 X10^3/ul (4.0); Lymphocyte % 30.3 % (19-41); Mean Corp Hgb Conc 33.3 g/gl (32-36); Mean Corpuscular Hgb 31.8 pg (27.0-32.0); Mean Corpuscular Volume 95.6 fL (81-99); Mean Platelet Vol. 12.7 fl (6.2-12.0); Monocyte% 10.2 % (0-10); Neutrophil # 3.94 X10^3/uL (2.7-7.7); Neutrophil % 57.4 % (47-70); Platelet Count 209 K/mm3 (150-450); RBC Distribution Width CV 13.9 % (11.6-14.6); RBC Distribution Width SD 47.6 fl (35.1-43.9); Red Blood Count 4.56 M/mm3 (4.2-5.4); White Blood Count 6.9 K/mm3 (4.4-11.0)
[2017-12-11 15:52] LABS: POSITIVE COUNT NO; POSITIVE DIFFERENTIAL NO; POSITIVE MORPHOLOGY NO
[2017-12-11 16:02] LABS: BUN 16 mg/dL (7-18); Creatinine, Serum 0.98 mg/dL (0.55-1.02); Estimated Creatinine Clearance 38.02 ml/min; Glucose 89 mg/dL (74-106)
[2017-12-11 16:03] LABS: Anion Gap 7 (5-15); BUN/Creat Ratio 16.3 RATIO (10-20); Calcium,Total 8.8 mg/dL (8.5-10.1); Chloride 108 mmol/L (98-107); EST Glomerular Filtration Rate 58 mL/min (>60); Est Glom Filt Rate - Afr Amer 70 mL/min (>60); Potassium 3.7 mmol/L (3.5-5.1); Sodium Level 141 mmol/L (136-145)
--- NOTE | 2017-12-12 21:07 | PCM.HP.BLA ---
History and Physical DATE OF SURGERY: 12/26/2017 SCHEDULED PROCEDURE: Left total knee arthroplasty HISTORY OF PRESENT ILLNESS: This is a 77-year-old female who has been having ongoing pain in bilateral knees for over 10 years. Patient recently underwent a right total knee arthroplasty 3 months ago and is doing well. Patient continues to complain of ongoing left knee pain. Pain is dull. Patient does report start up pain. Pain is increased with going up and down stairs, sitting for extended periods of time. Patient has difficult time with carrying heavy things with activities of daily living. She has tried rest, ice, elevation, and previous corticosteroid injections with minimal relief. Patient has also been through formal physical therapy and home exercises with minimal relief. She has tried previous Euflexxa injection with minimal relief. She has been on oral medications consisting of Tylenol without any significant relief in pain. Patient denies previous surgery on the left knee. She has been using a cane for inflammatory assistance. Patient currently denies any chest pain, shortness of breath, fevers chills, or recent infections. Patient does have a medical history pertinent for hypertension, previous heart valve replacement 5 years ago, and recent right total knee arthroplasty in September 2017. After failing conservative measures and discussing all treatment options with Dr. Rios Gross the patient does wish to proceed with a left total knee arthroplasty. REVIEW OF SYSTEMS: ROS: Const: Denies change in appetite, fever and weight change. CV: Reports irregular heartbeat, but denies chest pain and heart murmur. Resp: Reports pneumonia and shortness of breath, but denies cough, tuberculosis and wheezing. GI: Reports heartburn, but denies constipation, diarrhea, nausea, rectal itching, bloody stools and vomiting. : Denies incontinence. Musculo: Reports trouble walking, but denies leg swelling, pain and weakness. Skin: Denies Raynaud's, history of shingles and tattoo. Neuro: Denies ambulatory dysfunction, dizziness, numbness/tingling and tremor. Psych: Reports insomnia, but denies anxiety and stress. Osei/Lymph: Denies anemia, bleeding/bruising tendency and past transfusion. Reviewed, no changes. PAST MEDICAL HISTORY: Advance Care Plan: Other Directive, LIVING WILL Effective Date: 07/24/2017 PMH: Medical Problems: Arthritis, High Blood Pressure Accidents: None Surgical Hx: Appendectomy, Heart Valve Replacement, Hysterectomy Knee Replacement Rt - (09/2017) [email or web address] Anesthesia Complications: None Assistive Devices: Dentures, Glasses Reviewed, no changes. SOCIAL HISTORY: SH: Marital: .Occupation: Retired.Work Status: Retired.Hand Dominance: Right-handed. Personal Habits: Cigarette Use: Never Smoked Cigarettes.Alcohol: Denies use.Drug Use: Denies Use.Enjoy Exercising: Never Exercises. Reviewed, no changes. VITALS: Ht: 62 Wt: 213lb Wt k.617 BMI: 39.0 BP: 154/74 Pulse: 72 Resp: 18 T: 98.2 T: 36.8C ALLERGIES: Lisinopril MEDICATIONS: Losartan Potassium 100 mg 1po qday, Metoprolol Succinate ER 25 mg 1po qday, Symbicort 160-4.5 mcg/Act 2 puffs bid, Tylenol Extra Strength 500 mg 2 by mouth every 8 hours as needed pain, Eliquis 5 mg 1po qday PRE-OP EXAM: General appearance:NORMAL Other: Eyes: Conjunctivae and lids: NORMAL Pupils: ERR Ears, Nose, Mouth, and Throat: NORMAL Other: Inspection of lips, teeth and gums: NORMAL Other: Neck: Examination of neck: no masses noted. Respiratory: Assessment of respiratory effort: NORMAL Other: Auscultation of lungs: clear to auscultation no wheezes, rhonchi or rales. Cardiovascular: Auscultation of heart: regular rate and rhythm, positive systolic murmur Exam of carotid arteries: NORMAL Other: Gastrointestinal: Exam of abdomen: soft, nontender, nondistended bowel sounds present. PHYSICAL EXAMINATION: Right knee incision is well-healed without erythema or signs of infection. Patient does walk with a limping gait. Left knee is cool to touch without erythema or signs of infection. She has tenderness to palpation over the medial joint line. Patient has varus alignment. Stable to varus and valgus stress test. Patient does have positive effusion on the left. Range of motion on the left lacks 5 of full extension to 115 of flexion with crepitus. Sensation intact to light touch. Neurovascularly intact. IMAGING STUDIES: X-rays of the left knee reveal varus alignment with medial joint space narrowing, subchondral sclerosis, osteophyte formation consistent with severe tricompartmental osteoarthritis of the left knee. IMPRESSION: 1. Severe left knee tricompartmental osteoarthritis 2. Status post 3 month right total knee arthroplasty 3. Hypertension 4. Heart valve replacement 5 years ago PLAN: Dr. Gross did discuss and review with the patient all treatment options including surgical versus nonsurgical options. Patient does wish to proceed with the above-stated procedure. Potential risks, benefits, and complications of the procedure were discussed in detail including but not limited to , infection, nerve and blood vessel damage, persistent pain, numbness, tingling, paresthesias, blood clot, pulmonary embolism, and requirement for possible further surgery. The patient expressed full understanding and has no further questions for the doctor. Patient does agree to proceed with the above-stated procedure and has signed the surgery consent form. ___ I have re-examined the patient. There are no clinical changes since date of exam. ___ See progress notes for changes. ___ Dictated on admission Date: Time: Signature:
--- NOTE | 2017-12-21 10:46 | CASEMGMT ---
Call placed to patient's cell phone to discuss d/c needs after upcoming surgery. No answer, voicemail left requesting call back. Paige Valera LPN Clinical Support
--- NOTE | 2017-12-21 11:00 | CASEMGMT ---
Patient returned phone call. Patient's plan is to return home with assistance from son who lives with her. Outpatient physical therapy is not set up but patient plans to have [facility] PT. Patient has bed/bathroom on 1st level of home with 1 step to enter home. Patient reports she always has a walker. Informed patient that RN-CM will likely follow up to assess for further needs and assist with setting up [facility] PT. Paige Valera LPN Clinical Support
[2017-12-26] VITALS (10 sets, daily range): BP systolic 81–149; BP diastolic 59–81; PULSE 46–65; RESP 16–18; TEMP 35.8–36.8; O2SAT 93–100; BMI 39.3
[2017-12-26] MEDS: Acetaminophen 500 MG Tablet 1000 MG PO ×3 (07:40→21:07)
[2017-12-26] MEDS: oxyCODONE HCl Cr 10 MG Tablet PO (07:40)
[2017-12-26] MEDS: Scopolamine 1mg/72hr Patch 1 PATCH TD (08:05)
[2017-12-26] MEDS: Lactated Ringers 1,000 ML 999 ML IV (08:10)
[2017-12-26] MEDS: Cefazolin 2 GM in 0.9% Normal Saline 100 ML IV (09:01)
--- NOTE | 2017-12-26 10:16 | PCM.OPRPT ---
Report of Operation Date of Procedure: 12/26/17 Pre-Operative Diagnosis: L knee primary OA Post-Operative Diagnosis: L knee primary OA Surgery/Procedure Performed:: Left total knee replacement Description of Surgical Findings:: Stable knee with good patella tracking natural resource manager: Lennox Chun Type of Anesthesia:: Spinal Anesthesiologist: Mor Lowery Special Medications: 2 g Ancef, 1 g TXA at incision, 1 g TXA closure, 10 mg Decadron, joint cocktail (5 mg Duramorph, 30 mL of 0.5% Ropivicaine, 1000 units of epinephrine, 30 mg of Toradol) Specimen's removed: bony cuts Estimated Blood Loss (mL): 50 Fluids Replaced: Thousand liters crystalloid Description of Procedure: Brief history operative indications: 77-year-old F with history of left knee osteoarthritis with radiographic findings with loss of joint space, osteophyte formation and subchondral sclerosis. Failed conservative measures as mentioned in the H&P. Discussion of total knee arthroplasty as well as risk and benefits were discussed the patient including but not limited to blood loss, DVTs, PEs, neurovascular damage, general risk of anesthesia including loss of life, and stiffness or instability were discussed with patient. Patient demonstrated understanding and was able to sign informed consent. Procedure: On the date of procedure patient's left lower extremity was marked in the preoperative area. The patient was then taken back to the operating room where the patient was placed on the table in the supine position. All bony prominences were identified a well-padded. Anesthesia assumed control of the C-spine and airway and remained controlled throughout the remainder of the procedure. A tourniquet was placed on the left upper thigh and the leg was prepped in a sterile fashion. The surgeon then scrubbed at this time .Upon reentering the room left lower extremity was draped in a standard orthopedic fashion. A timeout was then called and everyone agreed upon the side, the site, the procedure to be performed, patient's identity and antibiotics given. Esmarch bandage was used to exsanguinate the extremity and the tourniquet was placed up to 250 mmHg with the knee in flexion. A midline skin incision was made and sharp dissection was taken down through skin subcutaneous tissue and fat. The standard medial parapatellar incision was made and the patella was subluxed laterally. The standard deep MCL release was done and the fat pad was resected. Next our attention was directed to the femur. Navigation pins were placed, navigation was registered. The distal femoral cutting block was pinned into place and 10 mm of distal femur resection was completed. The distal femoral cut was verified with navigation. The knee was then placed in deep flexion in the standard Conjur sizing guide was used to place the femoral component in 3? external rotation based on the posterior condyles. A 4-in-1 cutting block was selected and pinned into place. The anterior cut was then made and checked for notching. The subsequent anterior chamfer cuts, posterior condylar cuts and posterior chamfer cuts were made while ensuring the MCL and LCL were protected. Our attention was then turned to the tibia where the navigation pins were placed, navigation was registered. Package Concierge tibial cutting guide was used to make the appropriate tibial cut 90 degrees from the mechanical axis. Navigation was then used to verify the cut. A universal tibial base plate was selected. the knee was flexed to 90 degrees and the soft tissues and posterior osteophytes were removed from the joint. 40 cc of the periarticular injection was injected into the posterior medial corner of the joint. The appropriate trials were then placed on the femur and tibia. A trial polyethylene was trialed to ensure proper balancing and stability of the knee. Patella tracking, was then verified and corrected appropriately as needed. The appropriate tibial internal rotation was then marked with a bovie. Our attention was then directed to the patella. The patella was everted and a flat resection was made. The lug holes were drilled and the patella trial was placed. Patellar tracking was checked and deemed appropriate. Once we were happy lug holes were drilled for the femur and trial components were removed. the tibia was subluxed and pinned into place and the keel was punched and the canal was reamed. Final components were verified and opened, and cement was mixed in a vacuum. Guero Simplex cement was used. The wound was copiously irrigated with normal saline. When the cement was ready the components were cemented into place starting with the tibia, femur and finally the patella. The trial poly component was placed and the knee was placed in full extension. All excess cement was removed in the process. Once the cement had cured the tracking, alignment and balance were verified and a final polyethylene component was placed. Once the final components were placed the wound was copiously irrigated with normal saline solution and the periarticular injection was given. The wound was closed in a layer mayorga fashion using #1 vicryl interrupted sutures for the arthrotomy, 2-0 interrupted Vicryl suture for the subcuticular layer and alicia for final skin closure. A sterile compressive dressing was then placed. The patient was then awakened from anesthesia, transferred to the [facility] and transferred to the PACU for recovery. Post op plan Follow up: in office in 2 weeks for wound check PT: to start POD #0 at hospital, outpatient PT should be arranged. Grafts/Implants Used: Guero Triathlon - Complications none - Admit VTE Documentation VTE Present on Admission: No VTE Mechan Device Prophylaxis: SCD's, Thigh High GEORGI Hose VTE Pharm Prophylaxis ordered?: Yes
--- NOTE | 2017-12-26 11:00 | RAD_ITS ---
STUDY: X-RAY - LEFT KNEE REASON FOR EXAM: Postop. TECHNIQUE: 2 view(s) of the knee. COMPARISON: Radiographs 11/27/2015. FINDINGS: There is a left total knee arthroplasty without evidence of complication. There are overlying skin alicia and postoperative soft tissue gas. RAD/Knee 1 or 2 Views IMPRESSION: Uncomplicated left total knee arthroplasty. Electronically Signed: Duy Gregory MD at 13:01 EDT Tel , Service support ,
[2017-12-26] MEDS: APIXABAN 5 MG TABLET PO ×2 (12:32→21:07)
[2017-12-26] MEDS: Famotidine 20 MG Tablet PO (12:33)
--- NOTE | 2017-12-26 12:36 | PN_ITS ---
Subjective: Patient is a 77 old lady with past medical history significant for hypertension, generalized osteoarthritis, previous history of right total knee arthroplasty admitted by Dr. Gross who did perform left total knee arthroplasty on 12/26/2017. Hospitalist service was consulted to assist with management of patient medical comorbidities Objective: GENERAL: cooperative HEENT: Atraumatic; moist oral mucosa EYES; Anicteric, Normal Conjunctiva NECK; supple, normal thyroid, no distended JVD. RESPIRATORY: Diminished to auscultation bilaterally, CARDIOVASCULAR: Regular S1 S2, no audible murmurs GI: soft, non-tender, normoactive bowel sounds, : No Renal angle tenderness; EXTREMITIES: No edema, no clubbing, no cyanosis. MUSCULOSKELETAL: Knee in surgical dressing NEURO: Awake; no lateralizing signs. SKIN: No Rash PSYCH; Normal affect Vitals/I&O's: Vital Signs Temp Pulse Resp BP Pulse Ox 97.6 F L 55 L 18 136/81 H 96 12/26/17 12:20 12/26/17 12:20 12/26/17 12:20 12/26/17 12:20 12/26/17 12:20 Oxygen Delivery Method Room Air Weight: 97.5 kg Body Mass Index (BMI) 39.3 Intake and Output for Last 24 Hours 12/24/17 12/25/17 12/26/17 23:59 23:59 23:59 Intake Total 1300 / 1300 Balance 1300 / 1300 Current Medications Acetaminophen (Tylenol) 1,000 mg PO Q8 [facility] Apixaban (Eliquis) 5 mg PO BID [facility] Last Admin: 12/26/17 12:32 Dose: 5 mg Famotidine (Pepcid) 20 mg PO DAILY [facility] Last Admin: 12/26/17 12:33 Dose: 20 mg Cefazolin Sodium () 1 gm in 50 mls @ 150 mls/hr IV Q8H [facility] Stop: 12/27/17 01:19 Lactated Ringer's () 1,000 mls @ 125 mls/hr IV .Q8H [facility] Influenza Virus Vaccine Quadrival (Fluarix/Fluzone) 0.5 ml IM .ONCE ONE Stop: 12/27/17 10:01 Ketorolac Tromethamine (Toradol) 15 mg IV Q6H PRN PRN PRN Reason: MILD-MOD PAIN (1-10) Losartan Potassium (Cozaar) 50 mg PO DAILY [facility] Metoprolol Tartrate (Lopressor (Beta Wendy)) 12.5 mg PO BID [facility] Morphine Sulfate () 2 - 4 mg IV Q2H PRN PRN PRN Reason: SEVERE PAIN (6-12/27) Nutritional Formula (Lactose Free) (Ensure Enlive) 120 ml PO 4X/DAY [facility] Ondansetron HCl (Zofran) 4 mg IV Q8H PRN PRN PRN Reason: NAUSEA Oxycodone HCl (Oxyir) 5 - 10 mg PO Q4H PRN PRN PRN Reason: MOD-SEVERE PAIN (-12/27) Promethazine HCl (Phenergan) 12.5 mg IM Q6H PRN PRN; Protocol PRN Reason: NAUSEA/VOMITING Scopolamine HBr (Transderm-Scop) 1 patch TD Q3D KAMI Stop: 12/26/17 13:01 Last Admin: 12/26/17 08:05 Dose: 1 patch Senna/Docusate Sodium (Senokot-S, Janeth-Colace) 2 tablet PO BID [facility] Sodium Chloride () 5 - 30 ml IV UD PRN PRN Reason: SALINE FLUSH Medical Necessity - Tobacco Use Smoking Status: Never smoker Tobacco Use: Non-smoker Assessment/Plan All Active Problems (Last Updated 09/11/17 @ 14:38 by Yari Hernandez) New onset atrial fibrillation (Acute ~08/2017) Patient is a 77 old lady with past medical history significant for hypertension, generalized osteoarthritis, previous history of right total knee arthroplasty admitted by Dr. Gross who did perform left total knee arthroplasty on 12/26/2017. Hospitalist service was consulted to assist with management of patient medical comorbidities 1. Status post right total knee arthroplasty on account of Severe left knee tricompartmental osteoarthritis with mild on 12/26/2017: Patient postoperative orders regarding PT OT pain management and DVT prophylaxis addressed by Dr. Gross 2. Hypertension-blood pressure controlled, home medications continued with dose adjustment as needed 3. 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 Morbid obesity with BMI of 39.3 5. Previous history of right total knee arthroplasty 6. DVT prophylaxis as addressed by primary service Code Visit Inpatient E&M: 40056 Subs Hosp L3
[2017-12-26] MEDS: Lactated Ringers 1,000 ML 125 ML IV (16:39)
[2017-12-26] MEDS: Cefazolin 1 GM/50 ML BAG IV (16:39)
[2017-12-26] MEDS: Senna/Docusate Sodium 1 Tablet 2 TABLET PO (21:07)
[2017-12-27] VITALS (7 sets, daily range): BP systolic 113–159; BP diastolic 52–61; PULSE 49–60; RESP 16–18; TEMP 36.6–37.1; O2SAT 95–99
[2017-12-27] MEDS: Cefazolin 1 GM/50 ML BAG IV (01:10)
[2017-12-27 06:17] LABS: Hematocrit 37.8 % (37-47); Hemoglobin 12.3 g/dl (12.0-15.0); Mean Corp Hgb Conc 32.5 g/gl (32-36); Mean Corpuscular Hgb 31.9 pg (27.0-32.0); Mean Corpuscular Volume 98.2 fL (81-99); Mean Platelet Vol. 12.9 fl (6.2-12.0); Platelet Count 146 K/mm3 (150-450); RBC Distribution Width CV 13.5 % (11.6-14.6); RBC Distribution Width SD 47.7 fl (35.1-43.9); Red Blood Count 3.85 M/mm3 (4.2-5.4); White Blood Count 6.7 K/mm3 (4.4-11.0)
[2017-12-27] MEDS: Acetaminophen 500 MG Tablet 1000 MG PO ×3 (06:21→21:02)
[2017-12-27] MEDS: 0.9% NaCl Peripheral Flush Adult/Peds IV ×2 (06:21→21:02)
[2017-12-27 06:23] LABS: Scan Indicated on CBC? Y/N NO
[2017-12-27 06:28] LABS: Anion Gap 7 (5-15); BUN 22 mg/dL (7-18); Calcium,Total 8.1 mg/dL (8.5-10.1); Chloride 107 mmol/L (98-107); Creatinine, Serum 1.16 mg/dL (0.55-1.02); EST Glomerular Filtration Rate 48 mL/min (>60); Est Glom Filt Rate - Afr Amer 58 mL/min (>60); Estimated Creatinine Clearance 32.12 ml/min; Glucose 96 mg/dL (74-106); Potassium 4.4 mmol/L (3.5-5.1); Sodium Level 141 mmol/L (136-145)
--- NOTE | 2017-12-27 07:03 | PCM.PN.ORT ---
Subjective: The patient was sitting in bedside chair upon examination. Patient denies any chest pain, shortness of breath, dizziness, lightheadedness, or calf pain. Pain is controlled on medications. No adverse overnight events. Patient states she did vomit last night. She states today she feels well. However as I was discussing discharge with the patient patient began vomiting. Patient is still wanting to try to go home this afternoon if she is doing well. I explained to her we will see how she does with physical therapy and how she feels and make that decision this afternoon. Objective: Vital signs stable and afebrile. Patient is able to plantarflex and dorsiflex actively. Sensation is intact to light touch to saphenous, sural, superficial and deep peroneal, and tibial distribution. Dressing is mild drainage over middle one third Negative Homans bilaterally, negative signs and symptoms of DVT. - Physical Exam General: Alert, Oriented x3, Cooperative, No apparent distress Vital Signs Temp Pulse Resp BP Pulse Ox 98.4 F 53 L 16 113/61 99 12/27/17 03:05 12/27/17 03:05 12/27/17 03:05 12/27/17 03:05 12/27/17 03:05 Oxygen Delivery Method Room Air Weight: 97.5 kg Body Mass Index (BMI) 39.3 Intake and Output for Last 24 Hours 12/25/17 12/26/17 12/27/17 23:59 23:59 23:59 Intake Total 3608 / 3608 355 / 355 Balance 3608 / 3608 355 / 355 Laboratory Tests Past 24 Hrs 12/27/17 12/27/17 05:30 05:30 WBC 6.7 RBC 3.85 L Hgb 12.3 Hct 37.8 MCV 98.2 MCH 31.9 MCHC 32.5 RDW 13.5 RDW Differential 47.7 H Plt Count 146 L MPV 12.9 H Sodium 141 Potassium 4.4 Chloride 107 Carbon Dioxide 27.0 Anion Gap 7 BUN 22 H Creatinine 1.16 H Estim Creat Clear Calc 32.12 Est GFR (MDRD) Af Amer 58 L Est GFR (MDRD) Non-Af 48 L BUN/Creatinine Ratio 19.0 Glucose 96 Calcium 8.1 L Medical Necessity - Tobacco Use Smoking Status: Never smoker Tobacco Use: Non-smoker Assessment/Plan All Active Problems (Last Updated 09/11/17 @ 14:38 by Yari Hernandez) New onset atrial fibrillation (Acute ~08/2017) 1. S/P left total knee arthroplasty POD #1 2. Continue Pain Medications: Tylenol and oxycodone 3. DVT Prophylaxis: Patient was placed back on her Eliquis 4. PT/OT: Weightbearing as tolerated 5. H & H: 12.3/37.8, asymptomatic 6. Encouraged Incentive Spirometry 7. Continue postoperative medical management per medicine 8. Disposition: Patient is requesting to try to go home today. We will see how patient does with physical therapy and if pain is controlled. If she is feeling okay we could try to set her up to go home this afternoon. Patient states she has Tylenol, oxycodone, and senna at home from her previous surgery on the right knee. Patient will follow-up per postop instructions.
--- NOTE | 2017-12-27 07:21 | PCM.DC.TKR ---
Discharge Diet: No Restrictions Discharge Activity: May Not Drive May shower in (days): 1 - Turned dressing away from water Ice area for (Minutes): 20 - every hour while awake. Weight Bearing Status: Weight bearing as tolerated Elevate: Operative Extremity Additional Activity Instructions:: Wear elastic stockings for 2 weeks after your surgery. Call your doctor if your incision/area has: Continuous Slow Oozing, Sudden Increased Bleeding, Increased Pain/ Swelling, Increased Redness, Foul Smelling Discharge Call your doctor if you observe: Fever of 101 or Higher, Coldness, Increased Pain, Numbness or Tingling, Change in Color, Calf discomfort, Uncontrolled pain Remove Dressing in (days):: 4 - Okay to remove on December 31, 2017 Additional Instructions: Follow [place] [facility] postop instructions Allergies/Adverse Reactions: Allergies lisinopril Adverse Reaction (Verified 12/11/17 15:07) COUGH Medications to take at Discharge losartan 100 mg tablet 100 mg PO DAILY 07/10/17 metoprolol tartrate 25 mg tablet 12.5 mg PO BID tab 07/10/17 Apixaban [Eliquis] 5 mg PO BID 12/11/17 Acetaminophen [Tylenol] 1,000 mg PO Q8 tablet 12/27/17 Ondansetron HCl [Zofran] 4 mg PO Q8H PRN PRN #20 tab 12/27/17 Oxycodone [Oxyir] 5 - 10 mg PO Q4H PRN PRN 7 Days tablet 12/27/17 Senna/Docusate Sodium [Senokot-S] 2 tablet PO BID tablet 12/27/17 The following prescriptions were given: Ondansetron HCl [Zofran] 4 mg PO Q8H PRN PRN #20 tab PRN Reason: Nausea/Vomiting Primary Care Physician: Scott Hull Chi, MD [Primary Care Provider] - Test Results: Test results from this visit will be discussed in further detail at your follow-up appointment, if applicable. Please Follow Up With: Home health physical therapy Please Follow Up With: Lennox Chun PA-C When: 01/08/18 @ 10:00 am
--- NOTE | 2017-12-27 08:19 | PCM.PN.HOSP ---
Subjective: Patient seen complains of insomnia. Plan is for patient to be discharged by orthopedic surgery. Objective: GENERAL: cooperative HEENT: Atraumatic; moist oral mucosa EYES; Anicteric, Normal Conjunctiva NECK; supple, normal thyroid, no distended JVD. RESPIRATORY: Diminished to auscultation bilaterally, CARDIOVASCULAR: Regular S1 S2, no audible murmurs GI: soft, non-tender, normoactive bowel sounds, : No Renal angle tenderness; EXTREMITIES: No edema, no clubbing, no cyanosis. MUSCULOSKELETAL: Knee in surgical dressing NEURO: Awake; no lateralizing signs. SKIN: No Rash PSYCH; Normal affect Vitals/I&O's: Vital Signs Temp Pulse Resp BP Pulse Ox 98.4 F 53 L 16 113/61 99 12/27/17 03:05 12/27/17 03:05 12/27/17 03:05 12/27/17 03:05 12/27/17 03:05 Oxygen Delivery Method Room Air Weight: 97.5 kg Body Mass Index (BMI) 39.3 Intake and Output for Last 24 Hours 12/25/17 12/26/17 12/27/17 23:59 23:59 23:59 Intake Total 3608 / 3608 355 / 355 Balance 3608 / 3608 355 / 355 Laboratory Results 12/27/17 05:30: WBC 6.7, RBC 3.85 L, Hgb 12.3, Hct 37.8, MCV 98.2, MCH 31.9, MCHC 32.5, RDW 13.5, RDW Differential 47.7 H, Plt Count 146 L, MPV 12.9 H 12/27/17 05:30: Sodium 141, Potassium 4.4, Chloride 107, Carbon Dioxide 27.0, Anion Gap 7, BUN 22 H, Creatinine 1.16 H, Estim Creat Clear Calc 32.12, Est GFR (MDRD) Af Amer 58 L, Est GFR (MDRD) Non-Af 48 L, BUN/Creatinine Ratio 19.0, Glucose 96, Calcium 8.1 L Current Medications Acetaminophen (Tylenol) 1,000 mg PO Q8 [facility] Last Admin: 12/27/17 06:21 Dose: 1,000 mg Apixaban (Eliquis) 5 mg PO BID [facility] Last Admin: 12/26/17 21:07 Dose: 5 mg Famotidine (Pepcid) 20 mg PO DAILY [facility] Last Admin: 12/26/17 12:33 Dose: 20 mg Influenza Virus Vaccine Quadrival (Fluarix/Fluzone) 0.5 ml IM .ONCE ONE Stop: 12/27/17 10:01 Ketorolac Tromethamine (Toradol) 15 mg IV Q6H PRN PRN PRN Reason: MILD-MOD PAIN (1-5/10) Losartan Potassium (Cozaar) 50 mg PO DAILY [facility] Metoprolol Tartrate (Lopressor (Beta Wendy)) 12.5 mg PO BID [facility] Last Admin: 12/26/17 21:07 Dose: Not Given Morphine Sulfate () 2 - 4 mg IV Q2H PRN PRN PRN Reason: SEVERE PAIN (6-10/10) Nutritional Formula (Lactose Free) (Ensure Enlive) 120 ml PO 4X/DAY [facility] Last Admin: 12/26/17 21:07 Dose: Not Given Ondansetron HCl (Zofran) 4 mg IV Q8H PRN PRN PRN Reason: NAUSEA Oxycodone HCl (Oxyir) 5 - 10 mg PO Q4H PRN PRN PRN Reason: MOD-SEVERE PAIN (4-10/10) Promethazine HCl (Phenergan) 12.5 mg IM Q6H PRN PRN; Protocol PRN Reason: NAUSEA/VOMITING Senna/Docusate Sodium (Senokot-S, Janeth-Colace) 2 tablet PO BID [facility] Last Admin: 12/26/17 21:07 Dose: 2 tablet Sodium Chloride () 5 - 30 ml IV UD PRN PRN Reason: SALINE FLUSH Last Admin: 12/27/17 06:21 Dose: 10 ml Medical Necessity - Tobacco Use Smoking Status: Never smoker Tobacco Use: Non-smoker Assessment/Plan All Active Problems (Last Updated 09/11/17 @ 14:38 by Yari Hernandez) New onset atrial fibrillation (Acute ~08/2017) Patient is a 77 old lady with past medical history significant for hypertension, generalized osteoarthritis, previous history of right total knee arthroplasty admitted by Dr. Gross who did perform left total knee arthroplasty on 12/26/2017. Hospitalist service was consulted to assist with management of patient medical comorbidities 1. Status post right total knee arthroplasty on account of Severe left knee tricompartmental osteoarthritis with mild on 12/26/2017: Patient postoperative orders regarding PT OT pain management and DVT prophylaxis addressed by Dr. Gross 2. Hypertension-blood pressure controlled, home medications continued with dose adjustment as needed 3. 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 Morbid obesity with BMI of 39.3 5. Previous history of right total knee arthroplasty 6. DVT prophylaxis as addressed by primary service Code Visit Inpatient E&M: 85190 Subs Hosp L2
[2017-12-27] MEDS: Famotidine 20 MG Tablet PO (09:42)
[2017-12-27] MEDS: Metoprolol Tartrate 25 MG Tablet 12.5 MG PO ×2 (09:42→21:00)
[2017-12-27] MEDS: APIXABAN 5 MG TABLET PO ×2 (09:42→21:01)
[2017-12-27] MEDS: Senna/Docusate Sodium 1 Tablet 2 TABLET PO ×2 (09:42→21:02)
[2017-12-27] MEDS: Losartan Potassium 50 MG Tablet PO (09:42)
--- NOTE | 2017-12-27 10:40 | CASEMGMT ---
RN ABHISHEK Face to Face with patient for initial transition planning/care coordination assessment. RN ABHISHEK introduced self and role at [facility]. Patient sitting in chair, alert and oriented. Patient willing to participate in assessment and is able to answer all questions appropriately. Care providers, pharmacy, and demographics verified. Patient lives with son in first floor apt. Patient is independent at home and has friend that will be providing transporationl. Patient has shower chair, BSC, cane, and walker. Patient wishes to discharge home with HHC through [facility]. Patient states she has no further needs or concerns at this time. Referral made to [facility] and they are able to accept the patient. CM to follow for discharge planning needs that may arise. Disposition Plan: Patient to discharge home HHC, family support, and follow-up plans in place. Allyssa JUNG, RN, CM
[2017-12-27] MEDS: oxyCODONE 5 MG Tablet PO ×2 (16:09→21:01)
[2017-12-28 02:45] VITALS: BP 146/57; PULSE 59; RESP 18; TEMP 37.1; O2SAT 95
[2017-12-28] MEDS: Acetaminophen 500 MG Tablet 1000 MG PO ×2 (05:35→14:22)
[2017-12-28 06:24] LABS: Hemoglobin 12.5 g/dl (12.0-15.0); Mean Corp Hgb Conc 32.9 g/gl (32-36); Mean Corpuscular Volume 97.2 fL (81-99); Platelet Count 159 K/mm3 (150-450); RBC Distribution Width CV 13.5 % (11.6-14.6); RBC Distribution Width SD 46.7 fl (35.1-43.9); Red Blood Count 3.91 M/mm3 (4.2-5.4); White Blood Count 8.6 K/mm3 (4.4-11.0)
[2017-12-28 06:25] LABS: Scan Indicated on CBC? Y/N NO
[2017-12-28 07:37] VITALS: BP 132/62; PULSE 53; RESP 18; TEMP 37.6; O2SAT 97
[2017-12-28] MEDS: Famotidine 20 MG Tablet PO (07:39)
[2017-12-28] MEDS: Senna/Docusate Sodium 1 Tablet 2 TABLET PO (07:39)
[2017-12-28] MEDS: Losartan Potassium 50 MG Tablet PO (07:39)
[2017-12-28] MEDS: APIXABAN 5 MG TABLET PO (07:40)
[2017-12-28 08:04] VITALS: TEMP 37.6
[2017-12-28 08:08] VITALS: PULSE 53
[2017-12-28] MEDS: Metoprolol Tartrate 25 MG Tablet 12.5 MG PO (08:08)
--- NOTE | 2017-12-28 08:27 | PCM.PN.HOSP ---
Subjective: Patientliana discharged on 12/27/2017 was delayed for a day after she developed persistent nausea and vomiting in this a.m. had a relatively uneventful night able to tolerate breakfast Objective: GENERAL: cooperative HEENT: Atraumatic; moist oral mucosa EYES; Anicteric, Normal Conjunctiva NECK; supple, normal thyroid, no distended JVD. RESPIRATORY: Diminished to auscultation bilaterally, CARDIOVASCULAR: Regular S1 S2, no audible murmurs GI: soft, non-tender, normoactive bowel sounds, : No Renal angle tenderness; EXTREMITIES: No edema, no clubbing, no cyanosis. MUSCULOSKELETAL: Knee in surgical dressing NEURO: Awake; no lateralizing signs. SKIN: No Rash PSYCH; Normal affect Vitals/I&O's: Vital Signs Temp Pulse Resp BP Pulse Ox 99.7 F H 53 L 18 132/62 H 97 12/28/17 08:04 12/28/17 08:08 12/28/17 07:37 12/28/17 07:37 12/28/17 07:37 Oxygen Delivery Method Room Air Weight: 97.5 kg Body Mass Index (BMI) 39.3 Intake and Output for Last 24 Hours 12/26/17 12/27/17 12/28/17 23:59 23:59 23:59 Intake Total 3608 / 3608 1275 / 1275 240 / 240 Balance 3608 / 3608 1275 / 1275 240 / 240 Laboratory Results 12/28/17 05:42: WBC 8.6, RBC 3.91 L, Hgb 12.5, Hct 38.0, MCV 97.2, MCH 32.0, MCHC 32.9, RDW 13.5, RDW Differential 46.7 H, Plt Count 159, MPV 13.0 H Current Medications Acetaminophen (Tylenol) 1,000 mg PO Q8 [facility] Last Admin: 12/28/17 05:35 Dose: 1,000 mg Apixaban (Eliquis) 5 mg PO BID [facility] Last Admin: 12/28/17 07:40 Dose: 5 mg Famotidine (Pepcid) 20 mg PO DAILY [facility] Last Admin: 12/28/17 07:39 Dose: 20 mg Ketorolac Tromethamine (Toradol) 15 mg IV Q6H PRN PRN PRN Reason: MILD-MOD PAIN (-07/27) Losartan Potassium (Cozaar) 50 mg PO DAILY [facility] Last Admin: 12/28/17 07:39 Dose: 50 mg Metoprolol Tartrate (Lopressor (Beta Wendy)) 12.5 mg PO BID [facility] Last Admin: 12/28/17 08:08 Dose: 12.5 mg Morphine Sulfate () 2 - 4 mg IV Q2H PRN PRN PRN Reason: SEVERE PAIN (6-10) Nutritional Formula (Lactose Free) (Ensure Enlive) 120 ml PO 4X/DAY [facility] Last Admin: 12/28/17 07:42 Dose: 120 ml Ondansetron HCl (Zofran) 4 mg IV Q8H PRN PRN PRN Reason: NAUSEA Oxycodone HCl (Oxyir) 5 - 10 mg PO Q4H PRN PRN PRN Reason: MOD-SEVERE PAIN (4-12/27) Last Admin: 12/27/17 21:01 Dose: 5 mg Promethazine HCl (Phenergan) 12.5 mg IM Q6H PRN PRN; Protocol PRN Reason: NAUSEA/VOMITING Senna/Docusate Sodium (Senokot-S, Janeth-Colace) 2 tablet PO BID [facility] Last Admin: 12/28/17 07:39 Dose: 2 tablet Sodium Chloride () 5 - 30 ml IV UD PRN PRN Reason: SALINE FLUSH Last Admin: 12/27/17 21:02 Dose: 10 ml Medical Necessity - Tobacco Use Smoking Status: Never smoker Tobacco Use: Non-smoker Assessment/Plan All Active Problems (Last Updated 09/11/17 @ 14:38 by Yari Hernandez) New onset atrial fibrillation (Acute ~08/2017) Patient is a 77 old lady with past medical history significant for hypertension, generalized osteoarthritis, previous history of right total knee arthroplasty admitted by Dr. Gross who did perform left total knee arthroplasty on 12/26/2017. Hospitalist service was consulted to assist with management of patient medical comorbidities 1. Status post right total knee arthroplasty on account of Severe left knee tricompartmental osteoarthritis with mild on 12/26/2017: Patient postoperative orders regarding PT OT pain management and DVT prophylaxis addressed by Dr. Gross 2. Hypertension-blood pressure controlled, home medications continued with dose adjustment as needed 3. 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 Morbid obesity with BMI of 39.3 5. Previous history of right total knee arthroplasty 6. DVT prophylaxis as addressed by primary service Code Visit Inpatient E&M: 40040 Subs Hosp L2
--- NOTE | 2017-12-28 08:38 | PN.ORTHO_ITS ---
Subjective: The patient was sitting in bedside chair upon examination. Patient denies any chest pain, shortness of breath, dizziness, lightheadedness, nausea or vomiting, or calf pain. Pain is controlled on medications. No adverse overnight events. Patient had nausea/vomiting postoperative day 1 but this has resolved. She feels much better today. Plan is for her to go home today with home health physical therapy. Objective: Vital signs stable and afebrile. Patient is able to plantarflex and dorsiflex actively. Sensation is intact to light touch to saphenous, sural, superficial and deep peroneal, and tibial distribution. Dressing is mild drainage over middle one third, this has been stable Negative Homans bilaterally, negative signs and symptoms of DVT. - Physical Exam General: Alert, Oriented x3, Cooperative, No apparent distress Vital Signs Temp Pulse Resp BP Pulse Ox 99.7 F H 53 L 18 132/62 H 97 12/28/17 08:04 12/28/17 08:08 12/28/17 07:37 12/28/17 07:37 12/28/17 07:37 Oxygen Delivery Method Room Air Weight: 97.5 kg Body Mass Index (BMI) 39.3 Intake and Output for Last 24 Hours 12/26/17 12/27/17 12/28/17 23:59 23:59 23:59 Intake Total 3608 / 3608 1275 / 1275 240 / 240 Balance 3608 / 3608 1275 / 1275 240 / 240 Laboratory Tests Past 24 Hrs 12/28/17 05:42 WBC 8.6 RBC 3.91 L Hgb 12.5 Hct 38.0 MCV 97.2 MCH 32.0 MCHC 32.9 RDW 13.5 RDW Differential 46.7 H Plt Count 159 MPV 13.0 H Medical Necessity - Tobacco Use Smoking Status: Never smoker Tobacco Use: Non-smoker Assessment/Plan All Active Problems (Last Updated 09/11/17 @ 14:38 by Yari Hernandez) New onset atrial fibrillation (Acute ~08/2017) 1. S/P left total knee arthroplasty POD #2 2. Continue Pain Medications: Tylenol and oxycodone 3. DVT Prophylaxis: Continue with Eliquis 4. PT/OT: Weightbearing as tolerated 5. H & H: 12.5/38.0, asymptomatic 6. Encouraged Incentive Spirometry 7. Continue postoperative medical management per medicine 8. Disposition: Orthopedically stable, plan is for discharge home today with home health physical therapy. Patient states she has Tylenol, oxycodone, and senna at home from her previous surgery on the right knee. Patient will follow- up per postop instructions. Patient was given a prescription for Zofran for nausea/vomiting.
[2017-12-28 13:45] VITALS: BP 136/57; PULSE 53; RESP 18; TEMP 37.2; O2SAT 96
== END 2017-12-28 14:35 | disposition home health service (06) | DRG 470 ==
LOC: ACINP 06:34 → MS3 08:51
PROVIDERS: Admitting Provider Specialist; Family Provider Family Medicine Geriatric Medicine; PCP Family Medicine Geriatric Medicine; Referring Provider Specialist; Visit Provider Internal Medicine
PROC: 0SRD0J9 Replacement of Left Knee Joint with Synthetic Substitute, Cemented, Open Approach (ICD-10-PCS; CPT 27447; principal; 2017-12-26 08:30)
DX: M17.12 Unilateral primary osteoarthritis, left knee (principal); Z23 Encounter for immunization; Z95.3 Presence of xenogenic heart valve; Z68.39 Body mass index [BMI] 39.0-39.9, adult; E66.01 Morbid (severe) obesity due to excess calories; Z96.651 Presence of right artificial knee joint; I10 Essential (primary) hypertension
CPT/HCPCS: 36415; 73560; 80048; 85025; 85027; 87081; 97110; 97162; 97165; 97530; 97535; 97802; C1776; J7120; 90686; A4216

== ENCOUNTER → 2018-03-28 14:42 | Outpatient (CLI) | payer MEDICARE, SELFPAY ==
[2017-12-26 12:24] VITALS: BMI 39.3
--- NOTE | 2018-03-28 14:56 | RAD_ITS ---
STUDY: X-RAY - RIGHT FOOT CLINICAL: Female, 77 years old. Gout, pain at the base of the great toe. TECHNIQUE: 3 view(s) of the foot. COMPARISON: None. FINDINGS: 1st digit mild hallux valgus, mild DJD of the metatarsophalangeal joint, small bunion, prominent soft tissues medial to the joint suggesting inflamed joint space. No soft tissue calcifications. Mild DJD of the interphalangeal joints. Mild DJD of the 1st, 2nd and 3rd tarsometatarsal articulations. Small plantar calcaneal spur and Achilles insertion enthesophyte. RAD/Foot min 3 Views IMPRESSION: 1st digit hallux valgus, mild DJD of the metatarsophalangeal joint, mild soft tissue prominence medial to the joint suggesting inflammation. Small bunion. Electronically Signed: Dillon Lopez MD at 16:06 EST Tel , Service support ,
[2018-03-28 17:56] LABS: Anion Gap 10 (5-15); BUN 17 mg/dL (7-18); BUN/Creat Ratio 16.5 RATIO (10-20); Calcium,Total 9.1 mg/dL (8.5-10.1); Chloride 106 mmol/L (98-107); Creatinine, Serum 1.03 mg/dL (0.55-1.02); EST Glomerular Filtration Rate 55 mL/min (>60); Est Glom Filt Rate - Afr Amer 67 mL/min (>60); Glucose 90 mg/dL (74-106); Potassium 4.2 mmol/L (3.5-5.1); Sodium Level 141 mmol/L (136-145); Uric Acid 6.8 mg/dL (2.6-6.0)
[2018-03-28 19:18] LABS: Absolute Lymphocyte Count 1.78 X10^3/ul (0.83-4.51); Absolute Neutrophil Count 4.8 X10^3/uL (2.0-7.7); Basophil# 0.04 X10^3/uL; Basophil% 0.5 % (0-1); Eosinophils% 1.3 % (0-5); Hematocrit 47.5 % (37-47); Hemoglobin 15.2 g/dl (12.0-15.0); Lymphocyte # 1.78 X10^3/ul (4.0); Lymphocyte % 23.8 % (19-41); Mean Corpuscular Hgb 31.2 pg (27.0-32.0); Mean Corpuscular Volume 97.5 fL (81-99); Mean Platelet Vol. 13.1 fl (6.2-12.0); Monocyte# 0.76 X10^3/uL; Monocyte% 10.2 % (0-10); Neutrophil # 4.77 X10^3/uL (2.7-7.7); Neutrophil % 63.9 % (47-70); Platelet Count 242 K/mm3 (150-450); RBC Distribution Width CV 13.1 % (11.6-14.6); RBC Distribution Width SD 46.6 fl (35.1-43.9); Red Blood Count 4.87 M/mm3 (4.2-5.4); White Blood Count 7.5 K/mm3 (4.4-11.0)
[2018-03-28 19:19] LABS: POSITIVE COUNT NO; POSITIVE DIFFERENTIAL NO; POSITIVE MORPHOLOGY NO
[2018-03-28 20:08] LABS: Erythrocyte Sedimentation Rate 25 mm/hr (0-30)
== END ==
LOC: POLAB3 14:42 → RAD 14:55
PROVIDERS: Family Provider Family Medicine Geriatric Medicine; PCP Family Medicine Geriatric Medicine; Referring Provider Family Medicine Geriatric Medicine; Visit Provider Family Medicine Geriatric Medicine
DX: M25.571 Pain in right ankle and joints of right foot (principal); R79.9 Abnormal finding of blood chemistry, unspecified
CPT/HCPCS: 36415; 73630; 80048; 84550; 85025; 85652; 86140

== ENCOUNTER → 2018-09-03 | Outpatient (CLI) | payer MEDICARE, SELFPAY ==
[2017-12-26 12:24] VITALS: BMI 39.3
== END | disposition home or self-care (01) ==
LOC: PSN 14:49
PROVIDERS: Family Provider Family Medicine Geriatric Medicine; PCP Family Medicine Geriatric Medicine; Referring Provider Family Medicine Geriatric Medicine; Visit Provider Family Medicine Geriatric Medicine
DX: R68.83 Chills (without fever) (principal)
CPT/HCPCS: 87633

== ENCOUNTER → 2018-10-15 | Outpatient (CLI) | payer MEDICARE, SELFPAY ==
--- NOTE | 2018-10-15 | RAD_ITS ---
STUDY: X-RAY - ABDOMEN/PELVIS REASON FOR EXAM: Female, 77 years old. Diarrhea. TECHNIQUE: Upright and supine abdomen. COMPARISON: Vascular Surgeon view CT abdomen and pelvis May 01, 2015. FINDINGS: There is an unremarkable bowel gas pattern. There is no demonstrated free abdominal air. The visualized liver, spleen and kidneys are grossly normal in size and morphology. Normal soft tissue structures. Multilevel degenerative changes of the lumbar spine. Mild convex-right thoracic curvature. A sternal wire is visualized. RAD/Abd Inc Decub and/or Erect IMPRESSION: Nonspecific bowel gas pattern without evidence of obstruction. Electronically Signed: Kike Benites MD at 4:16 EDT , Service support ,
[2018-10-15 15:28] LABS: Absolute Lymphocyte Count 1.34 X10^3/uL (0.83-4.51); Absolute Neutrophil Count 6.7 X10^3/uL (2.0-7.7); Basophil# 0.06 X10^3/uL; Basophil% 0.7 % (0-1); Eosinophil# 0.02 X10^3/uL; Eosinophils% 0.2 % (0-5); Hematocrit 24.4 % (37-47); Hemoglobin 7.7 g/dL (12.0-15.0); Lymphocyte # 1.34 X10^3/ul (4.0); Lymphocyte % 14.9 % (19-41); Mean Corp Hgb Conc 31.6 g/dL (32-36); Mean Corpuscular Hgb 28.9 pg (27.0-32.0); Mean Corpuscular Volume 91.7 fL (81-99); Mean Platelet Vol. 13.3 fl (6.2-12.0); Monocyte# 0.76 X10^3/uL; Monocyte% 8.4 % (0-10); NRBC Flagged by Analyzer 0 % (0-5); Neutrophil # 6.69 X10^3/uL (2.7-7.7); Neutrophil % 74.4 % (47-70); POSITIVE MORPHOLOGY YES; Platelet Count 285 K/mm3 (150-450); RBC Distribution Width CV 22.8 % (11.6-14.6); RBC Distribution Width SD 74.8 fl (35.1-43.9); Red Blood Count 2.66 M/mm3 (4.2-5.4)
[2018-10-15 15:37] LABS: Anion Gap 7 (5-15); BUN 48 mg/dL (7-18); BUN/Creat Ratio 24.6 RATIO (10-20); Calcium,Total 8.5 mg/dL (8.5-10.1); Chloride 108 mmol/L (98-107); Creatinine, Serum 1.95 mg/dL (0.55-1.02); EST Glomerular Filtration Rate 26 mL/min (>60); Est Glom Filt Rate - Afr Amer 32 mL/min (>60); Glucose 108 mg/dL (74-106); Sodium Level 138 mmol/L (136-145)
[2018-10-15 16:04] LABS: Differential Indicated SCAN CRITERIA MET
[2018-10-15 17:54] LABS: Platelet Estimate ADEQUATE (ADEQ)
[2018-10-15 17:55] LABS: Anisocytosis 1+; Hypochromasia 1+; Macrocytosis RARE
== END | disposition home or self-care (01) ==
LOC: POLAB3 14:11 → RAD 16:26
PROVIDERS: Family Provider Family Medicine Geriatric Medicine; PCP Family Medicine Geriatric Medicine; Referring Provider Family Medicine Geriatric Medicine; Visit Provider Family Medicine Geriatric Medicine
DX: R19.7 Diarrhea, unspecified (principal); E86.0 Dehydration
CPT/HCPCS: 36415; 74019; 80048; 85025

== ENCOUNTER → 2018-10-16 | Outpatient (CLI) | payer MEDICARE, SELFPAY ==
[2018-10-16 09:29] LABS: Hematocrit 24.6 % (37-47); Hemoglobin 7.7 g/dL (12.0-15.0)
== END | disposition home or self-care (01) ==
LOC: POLAB3 08:39
PROVIDERS: Family Provider Family Medicine Geriatric Medicine; PCP Family Medicine Geriatric Medicine; Visit Provider Family Medicine Geriatric Medicine
DX: D64.9 Anemia, unspecified (principal)
CPT/HCPCS: 36415; 85014; 85018; 86850; 86900; 86920; 86922

== ENCOUNTER → 2018-10-16 | Outpatient (CLI) | payer MEDICARE, SELFPAY ==
[2017-12-26 12:24] VITALS: BMI 39.3
== END | disposition home or self-care (01) ==
PROVIDERS: Family Provider Family Medicine Geriatric Medicine; PCP Family Medicine Geriatric Medicine; Visit Provider Family Medicine Geriatric Medicine
DX: R19.7 Diarrhea, unspecified (principal); D64.9 Anemia, unspecified
CPT/HCPCS: 36415; 82274; 83630; 85014; 85018; 86850; 86900; 86920; 86922; 87177; 87209; 87493

== ENCOUNTER → 2018-10-17 | Outpatient (CLI) | payer MEDICARE, SELFPAY ==
[2017-12-26 12:24] VITALS: BMI 39.3
[2018-10-17 08:24] VITALS: BP 98/37; PULSE 49; RESP 16; TEMP 36.6; O2SAT 99; BMI 39.1
[2018-10-17 09:10] VITALS: BP 88/30; PULSE 42; RESP 16; TEMP 36.4; O2SAT 100
[2018-10-17 10:10] VITALS: BP 92/40; PULSE 40; RESP 15; TEMP 36.4; O2SAT 100
[2018-10-17 10:50] VITALS: BP 105/43; PULSE 45; RESP 15; TEMP 36.4; O2SAT 100
[2018-10-17 11:37] VITALS: BP 109/41; PULSE 48; RESP 15; TEMP 36.4; O2SAT 99
[2018-10-17 12:37] VITALS: BP 122/50; PULSE 55; TEMP 36.4
== END | disposition home or self-care (01) ==
LOC: MEDOUTP 08:15
PROVIDERS: Family Provider Family Medicine Geriatric Medicine; PCP Family Medicine Geriatric Medicine; Referring Provider Family Medicine Geriatric Medicine; Visit Provider Family Medicine Geriatric Medicine
DX: D64.9 Anemia, unspecified (principal)
CPT/HCPCS: 36430; 86850; 86900; 86920; 86922; J7040; P9016; A4216

== ENCOUNTER → 2018-10-18 09:04 | Outpatient (CLI) | payer MEDICARE, SELFPAY ==
[2018-10-17 08:24] VITALS: BMI 39.1
[2018-10-18 09:49] LABS: Hematocrit 30.5 % (37-47); Hemoglobin 9.4 g/dL (12.0-15.0)
== END ==
PROVIDERS: Family Provider Family Medicine Geriatric Medicine; PCP Family Medicine Geriatric Medicine; Referring Provider Family Medicine Geriatric Medicine; Visit Provider Family Medicine Geriatric Medicine
DX: D64.9 Anemia, unspecified (principal)
CPT/HCPCS: 36415; 85014; 85018

== ENCOUNTER → 2018-11-20 | Outpatient (CLI) | payer MEDICARE, SELFPAY ==
[2018-10-17 08:24] VITALS: BMI 39.1
[2018-11-20 17:31] LABS: Hemoglobin 9.2 g/dL (12.0-15.0); Mean Corp Hgb Conc 29.7 g/dL (32-36); Mean Corpuscular Hgb 24.9 pg (27.0-32.0); Mean Corpuscular Volume 83.8 fL (81-99); Mean Platelet Vol. 12.4 fl (6.2-12.0); POSITIVE MORPHOLOGY YES; Platelet Count 305 K/mm3 (150-450); RBC Distribution Width CV 20.1 % (11.6-14.6); RBC Distribution Width SD 61.9 fl (35.1-43.9); White Blood Count 7.2 K/mm3 (4.4-11.0)
[2018-11-20 17:34] LABS: Scan Indicated on CBC? Y/N YES- FLAGS NOTED
[2018-11-20 17:57] LABS: Ferritin 7 ng/mL (8-252); Iron 15 ug/dL (50-170)
[2018-11-20 18:07] LABS: Differential Comment SCANNED
== END | disposition home or self-care (01) ==
LOC: MTLAB 16:08
PROVIDERS: Family Provider Family Medicine Geriatric Medicine; PCP Family Medicine Geriatric Medicine; Referring Provider Internal Medicine Gastroenterology; Visit Provider Internal Medicine Gastroenterology
DX: D50.9 Iron deficiency anemia, unspecified (principal)
CPT/HCPCS: 36415; 82728; 83540; 85027

== ENCOUNTER → 2018-12-13 09:35 | Outpatient (CLI) | payer MEDICARE, SELFPAY ==
[2018-10-17 08:24] VITALS: BMI 39.1
[2018-12-13 11:47] LABS: Absolute Lymphocyte Count 2.12 X10^3/uL (0.83-4.51); Absolute Neutrophil Count 4.1 X10^3/uL (2.0-7.7); Basophil# 0.06 X10^3/uL; Basophil% 0.8 % (0-1); Eosinophil# 0.09 X10^3/uL; Eosinophils% 1.2 % (0-5); Hematocrit 35.5 % (37-47); Hemoglobin 10.4 g/dL (12.0-15.0); Lymphocyte # 2.12 X10^3/ul (4.0); Lymphocyte % 28.3 % (19-41); Mean Corp Hgb Conc 29.3 g/dL (32-36); Mean Corpuscular Volume 81.8 fL (81-99); Mean Platelet Vol. 12.6 fl (6.2-12.0); Monocyte# 1.06 X10^3/uL; Monocyte% 14.1 % (0-10); NRBC Flagged by Analyzer 0 % (0-5); Neutrophil # 4.11 X10^3/uL (2.7-7.7); Neutrophil % 54.8 % (47-70); POSITIVE MORPHOLOGY YES; Platelet Count 291 K/mm3 (150-450); RBC Distribution Width CV 20.7 % (11.6-14.6); RBC Distribution Width SD 61.8 fl (35.1-43.9); Red Blood Count 4.34 M/mm3 (4.2-5.4); White Blood Count 7.5 K/mm3 (4.4-11.0)
[2018-12-13 11:52] LABS: Differential Indicated SCAN CRITERIA MET
[2018-12-13 12:01] LABS: Vitamin D,25 Hydroxy 19.8 ng/mL (29.95-100.01)
[2018-12-13 12:02] LABS: ALB/GLOB Ratio 1.1 RATIO (0.9-2.4); AST(SGOT) 20 U/L (15-37); Alanine Aminotransfer ALT/SGPT 27 U/L (13-56); Albumin, Serum 3.5 g/dL (3.2-5.0); Alkaline Phosphatase 76 U/L (45-117); Anion Gap 9 (5-15); BUN 21 mg/dL (7-18); BUN/Creat Ratio 17.9 RATIO (10-20); Calcium,Total 8.6 mg/dL (8.5-10.1); Chloride 106 mmol/L (98-107); Creatinine, Serum 1.17 mg/dL (0.55-1.02); EST Glomerular Filtration Rate 48 mL/min (>60); Est Glom Filt Rate - Afr Amer 58 mL/min (>60); Globulin 3.3 g/dL (2.2-4.2); Glucose 87 mg/dL (74-106); Potassium 3.6 mmol/L (3.5-5.1); Protein, Total 6.8 g/dL (6.4-8.2); Sodium Level 143 mmol/L (136-145); Thyroid Stim Hormone (TSH) 2.02 uIU/mL (0.358-3.74); Uric Acid 3.7 mg/dL (2.6-6.0)
[2018-12-13 12:35] LABS: Anisocytosis 1+; Hypochromasia 1+; Microcytosis RARE; Platelet Estimate ADEQUATE (ADEQ); Platelet Morphology LARGE
== END ==
PROVIDERS: Family Provider Family Medicine Geriatric Medicine; PCP Family Medicine Geriatric Medicine; Visit Provider Family Medicine Geriatric Medicine
DX: I10 Essential (primary) hypertension (principal); M10.9 Gout, unspecified; E55.9 Vitamin D deficiency, unspecified
CPT/HCPCS: 36415; 80053; 82306; 84443; 84550; 85025

== ENCOUNTER → 2018-12-25 14:38 | Outpatient (CLI) | payer MEDICARE, SELFPAY ==
[2018-10-17 08:24] VITALS: BMI 39.1
--- NOTE | 2018-12-25 09:20 | TISS_PTH ---
PATIENT: BRIANNE CALL LOC: [facility] U#:[id number] AGE/SX: 84/F ROOM: RE12/25/[address]: Dr. Scott Hull MD : 1940 BED: DIS: SPEC #: [id number] RECD: 12/25/18 15:00 STATUS: ANDREW WENDIE #: [id number] PEGGY: 12/25/18 09:[address]: Scott Hull Chi DEPT: SURGICAL PATHOLOGY RECD BY: Digna Avendano Tissues: Skin of chest Procedures: Surgery Specimen Level IV HEADER OPERATION: Not noted PRE-OP DIAGNOSIS: L81.9 TISSUE SUBMITTED: Chest biopsy MICROSCOPIC DIAGNOSIS Skin lesion of chest, shave biopsy: Actinic keratosis with seborrheic keratosis-like features. AM:[email or web address] 12/27/18 MICROSCOPIC DESCRIPTION Slides are reviewed. GROSS DESCRIPTION Received in fixative is one container labeled with the patient's name and designated chest. The specimen consists of a shave biopsy of chadwick-brown skin measuring 1 x 0.5 x 0.1 cm. The specimen is inked and submitted entirely in one cassette. It will be serially sectioned at the time of embedding. / SJ:[email or web address] 12/26/18 TC:5 CPT: 89796
== END ==
PROVIDERS: Family Provider Family Medicine Geriatric Medicine; PCP Family Medicine Geriatric Medicine; Visit Provider Family Medicine Geriatric Medicine
DX: L82.1 Other seborrheic keratosis (principal)
CPT/HCPCS: 88305

== ENCOUNTER → 2019-06-13 09:39 | Outpatient (CLI) | payer MEDICARE, SELFPAY ==
[2018-10-17 08:24] VITALS: BMI 39.1
[2019-06-13 11:57] LABS: Absolute Lymphocyte Count 2.14 X10^3/uL (0.83-4.51); Absolute Neutrophil Count 4.5 X10^3/uL (2.0-7.7); Basophil# 0.06 X10^3/uL; Basophil% 0.8 % (0-1); Eosinophils% 1.3 % (0-5); Hematocrit 46.2 % (37-47); Hemoglobin 15.3 g/dL (12.0-15.0); Lymphocyte # 2.14 X10^3/ul (4.0); Lymphocyte % 28.1 % (19-41); Mean Corp Hgb Conc 33.1 g/dL (32-36); Mean Corpuscular Hgb 32.7 pg (27.0-32.0); Mean Corpuscular Volume 98.7 fL (81-99); Monocyte# 0.78 X10^3/uL; Monocyte% 10.2 % (0-10); NRBC Flagged by Analyzer 0 % (0-5); Neutrophil % 59.1 % (47-70); Platelet Count 215 K/mm3 (150-450); RBC Distribution Width CV 14.6 % (11.6-14.6); RBC Distribution Width SD 52.6 fl (35.1-43.9); Red Blood Count 4.68 M/mm3 (4.2-5.4); White Blood Count 7.6 K/mm3 (4.4-11.0)
[2019-06-13 12:04] LABS: Vitamin D,25 Hydroxy 22.1 ng/mL
[2019-06-13 12:10] LABS: AST(SGOT) 24 U/L (15-37); Alanine Aminotransfer ALT/SGPT 23 U/L (13-56); Albumin, Serum 3.5 g/dL (3.2-5.0); Alkaline Phosphatase 66 U/L (45-117); Anion Gap 8 (5-15); BUN 17 mg/dL (7-18); BUN/Creat Ratio 15.6 RATIO (10-20); Calcium,Total 8.8 mg/dL (8.5-10.1); Chloride 106 mmol/L (98-107); Creatinine, Serum 1.09 mg/dL (0.55-1.02); EST Glomerular Filtration Rate 52 mL/min (>60); Est Glom Filt Rate - Afr Amer 62 mL/min (>60); Globulin 3.6 g/dL (2.2-4.2); Glucose 89 mg/dL (74-106); Protein, Total 7.1 g/dL (6.4-8.2); Sodium Level 140 mmol/L (136-145); Thyroid Stim Hormone (TSH) 2.85 uIU/mL (0.358-3.74); Uric Acid 4.2 mg/dL (2.6-6.0)
== END ==
PROVIDERS: PCP Family Medicine Geriatric Medicine; Visit Provider Family Medicine Geriatric Medicine
DX: I10 Essential (primary) hypertension (principal); E55.9 Vitamin D deficiency, unspecified; M10.9 Gout, unspecified
CPT/HCPCS: 36415; 80053; 82306; 84443; 84550; 85025

== ENCOUNTER → 2019-08-15 17:46 | Outpatient (CLI) | payer MEDICARE, SELFPAY ==
[2018-10-17 08:24] VITALS: BMI 39.1
[2019-08-15 18:57] LABS: Absolute Lymphocyte Count 1.68 X10^3/uL (0.83-4.51); Absolute Neutrophil Count 5.8 X10^3/uL (2.0-7.7); Basophil# 0.05 X10^3/uL; Basophil% 0.6 % (0-1); Eosinophil# 0.13 X10^3/uL; Eosinophils% 1.5 % (0-5); Hematocrit 45.3 % (37-47); Hemoglobin 14.8 g/dL (12.0-15.0); Lymphocyte # 1.68 X10^3/ul (4.0); Lymphocyte % 19.7 % (19-41); Mean Corp Hgb Conc 32.7 g/dL (32-36); Mean Corpuscular Hgb 32.4 pg (27.0-32.0); Mean Corpuscular Volume 99.1 fL (81-99); Mean Platelet Vol. 13.1 fl (6.2-12.0); Monocyte# 0.82 X10^3/uL; Monocyte% 9.6 % (0-10); NRBC Flagged by Analyzer 0 % (0-5); Neutrophil # 5.81 X10^3/uL (2.7-7.7); Neutrophil % 68.1 % (47-70); Platelet Count 204 K/mm3 (150-450); RBC Distribution Width CV 13.5 % (11.6-14.6); RBC Distribution Width SD 48.9 fl (35.1-43.9); Red Blood Count 4.57 M/mm3 (4.2-5.4); White Blood Count 8.5 K/mm3 (4.4-11.0)
[2019-08-15 18:58] LABS: Anion Gap 6 (5-15); BUN 15 mg/dL (7-18); BUN/Creat Ratio 13.3 RATIO (10-20); Calcium,Total 9.1 mg/dL (8.5-10.1); Chloride 106 mmol/L (98-107); Creatinine, Serum 1.13 mg/dL (0.55-1.02); EST Glomerular Filtration Rate 49 mL/min (>60); Est Glom Filt Rate - Afr Amer 60 mL/min (>60); Glucose 98 mg/dL (74-106); Potassium 3.8 mmol/L (3.5-5.1); Sodium Level 140 mmol/L (136-145); Uric Acid 3.7 mg/dL (2.6-6.0)
[2019-08-15 19:29] LABS: Erythrocyte Sedimentation Rate 19 mm/hr (0-30)
== END ==
PROVIDERS: PCP Family Medicine Geriatric Medicine; Visit Provider Family Medicine Geriatric Medicine
DX: R79.9 Abnormal finding of blood chemistry, unspecified (principal)
CPT/HCPCS: 36415; 80048; 84550; 85025; 85652; 86140

== ENCOUNTER → 2019-12-19 09:34 | Outpatient (CLI) | payer MEDICARE, SELFPAY ==
[2018-10-17 08:24] VITALS: BMI 39.1
[2019-12-19 12:44] LABS: Absolute Lymphocyte Count 3.31 X10^3/uL (0.83-4.51); Absolute Neutrophil Count 4.9 X10^3/uL (2.0-7.7); Basophil# 0.11 X10^3/uL; Basophil% 1.1 % (0-1); Eosinophil# 0.19 X10^3/uL; Eosinophils% 1.9 % (0-5); Hematocrit 48.7 % (37-47); Hemoglobin 15.6 g/dL (12.0-15.0); Lymphocyte # 3.31 X10^3/ul (4.0); Lymphocyte % 33.5 % (19-41); Mean Corpuscular Hgb 32.7 pg (27.0-32.0); Mean Corpuscular Volume 102.1 fL (81-99); Mean Platelet Vol. 12.3 fl (6.2-12.0); Monocyte# 1.24 X10^3/uL; Monocyte% 12.6 % (0-10); NRBC Flagged by Analyzer 0 % (0-5); Neutrophil % 49.7 % (47-70); Platelet Count 277 K/mm3 (150-450); RBC Distribution Width CV 13.1 % (11.6-14.6); RBC Distribution Width SD 49.5 fl (35.1-43.9); Red Blood Count 4.77 M/mm3 (4.2-5.4); White Blood Count 9.9 K/mm3 (4.4-11.0)
[2019-12-19 13:03] LABS: Vitamin D,25 Hydroxy 40.6 ng/mL
[2019-12-19 13:08] LABS: ALB/GLOB Ratio 0.9 RATIO (0.9-2.4); AST(SGOT) 26 U/L (15-37); Alanine Aminotransfer ALT/SGPT 25 U/L (13-56); Albumin, Serum 3.7 g/dL (3.2-5.0); Alkaline Phosphatase 63 U/L (45-117); Anion Gap 9 (5-15); BUN 21 mg/dL (7-18); BUN/Creat Ratio 17.8 RATIO (10-20); Chloride 103 mmol/L (98-107); Creatinine, Serum 1.18 mg/dL (0.55-1.02); EST Glomerular Filtration Rate 47 mL/min (>60); Est Glom Filt Rate - Afr Amer 57 mL/min (>60); Glucose 88 mg/dL (74-106); Potassium 3.9 mmol/L (3.5-5.1); Protein, Total 7.7 g/dL (6.4-8.2); Sodium Level 139 mmol/L (136-145); Thyroid Stim Hormone (TSH) 2.32 uIU/mL (0.358-3.74)
== END ==
PROVIDERS: PCP Family Medicine Geriatric Medicine; Visit Provider Family Medicine Geriatric Medicine
DX: E55.9 Vitamin D deficiency, unspecified (principal); I10 Essential (primary) hypertension
CPT/HCPCS: 36415; 80053; 82306; 84443; 85025

== ENCOUNTER → 2019-12-25 13:35 | Outpatient (CLI) | payer MEDICARE, SELFPAY ==
[2018-10-17 08:24] VITALS: BMI 39.1
[2019-12-25 17:02] LABS: Absolute Lymphocyte Count 1.52 X10^3/uL (0.83-4.51); Absolute Neutrophil Count 5.8 X10^3/uL (2.0-7.7); Basophil# 0.09 X10^3/uL; Basophil% 1.1 % (0-1); Eosinophil# 0.07 X10^3/uL; Eosinophils% 0.8 % (0-5); Hematocrit 48.1 % (37-47); Hemoglobin 15.4 g/dL (12.0-15.0); Lymphocyte # 1.52 X10^3/ul (4.0); Lymphocyte % 18.2 % (19-41); Mean Corpuscular Hgb 32.8 pg (27.0-32.0); Mean Corpuscular Volume 102.3 fL (81-99); Mean Platelet Vol. 12.9 fl (6.2-12.0); Monocyte# 0.82 X10^3/uL; Monocyte% 9.8 % (0-10); NRBC Flagged by Analyzer 0 % (0-5); Neutrophil # 5.81 X10^3/uL (2.7-7.7); Neutrophil % 69.4 % (47-70); Platelet Count 246 K/mm3 (150-450); RBC Distribution Width CV 13.1 % (11.6-14.6); RBC Distribution Width SD 49.1 fl (35.1-43.9); White Blood Count 8.4 K/mm3 (4.4-11.0)
[2019-12-25 17:18] LABS: Erythrocyte Sedimentation Rate 30 mm/hr (0-30)
[2019-12-25 17:21] LABS: Anion Gap 9 (5-15); BUN 16 mg/dL (7-18); BUN/Creat Ratio 14.8 RATIO (10-20); Calcium,Total 8.6 mg/dL (8.5-10.1); Chloride 102 mmol/L (98-107); Creatinine, Serum 1.08 mg/dL (0.55-1.02); EST Glomerular Filtration Rate 52 mL/min (>60); Est Glom Filt Rate - Afr Amer 63 mL/min (>60); Glucose 107 mg/dL (74-106); Potassium 4.4 mmol/L (3.5-5.1); Sodium Level 138 mmol/L (136-145); Uric Acid 3.7 mg/dL (2.6-6.0)
== END ==
PROVIDERS: PCP Family Medicine Geriatric Medicine; Visit Provider Family Medicine Geriatric Medicine
DX: R79.9 Abnormal finding of blood chemistry, unspecified (principal)
CPT/HCPCS: 36415; 80048; 84550; 85025; 85652; 86140

== ENCOUNTER → 2020-02-03 10:06 | Outpatient (CLI) | payer MEDICARE, SELFPAY ==
[2018-10-17 08:24] VITALS: BMI 39.1
--- NOTE | 2020-02-03 10:09 | US_ITS ---
STUDY: RENAL ULTRASOUND - COMPLETE REASON FOR EXAM: Female, 79 years old. CKD3 TECHNIQUE: Ultrasound evaluation of the kidneys was performed with real-time and static lr-scale imaging. COMPARISON: None. FINDINGS: RIGHT KIDNEY: Normal location of the right kidney, which is normal in size. The right kidney measures 9.3 cm x 4.3 cm x 4.8 cm. There is a normal cortex of the right kidney. The renal cortex measures 1.5 cm. There is no right renal mass or cyst. There are no right renal calculi. There is no right hydronephrosis. DISTAL RIGHT URETER: There is non-visualization of the distal right ureter. There is no demonstrated right ureterovesical junction calculus. There is no demonstrated right ureteral jet. LEFT KIDNEY: Normal location of the left kidney, which is normal in size. The left kidney measures 10.2 cm x 4.4 cm x 4.9 cm. There is a normal cortex of the left kidney. The renal cortex measures 1.7 cm. There is no left renal mass or cyst. There are no left renal calculi. There is no left hydronephrosis. DISTAL LEFT URETER: There is non-visualization of the distal left ureter. There is no demonstrated left ureterovesical junction calculus. There is no demonstrated left ureteral jet. BLADDER: The bladder was not adequately distended and the time of the examination. US/Kidney and Bladder IMPRESSION: Normal ultrasound of the kidneys. Electronically Signed: Hugo De Leon, at 15:25 EST , Service support ,
== END ==
PROVIDERS: PCP Family Medicine Geriatric Medicine; Referring Provider Internal Medicine Nephrology; Visit Provider Internal Medicine Nephrology
DX: N18.31 Chronic kidney disease, stage 3a (principal)
CPT/HCPCS: 76770

== ENCOUNTER → 2020-06-18 10:47 | Outpatient (CLI) | payer MEDICARE, SELFPAY ==
[2018-10-17 08:24] VITALS: BMI 39.1
[2020-06-18 12:19] LABS: Absolute Lymphocyte Count 1.86 X10^3/uL (0.83-4.51); Absolute Neutrophil Count 4.5 X10^3/uL (2.0-7.7); Basophil# 0.09 X10^3/uL; Basophil% 1.2 % (0-1); Eosinophil# 0.09 X10^3/uL; Eosinophils% 1.2 % (0-5); Hematocrit 50.5 % (37-47); Hemoglobin 16.1 g/dL (12.0-15.0); Lymphocyte # 1.86 X10^3/ul (4.0); Lymphocyte % 24.4 % (19-41); Mean Corp Hgb Conc 31.9 g/dL (32-36); Mean Corpuscular Hgb 31.8 pg (27.0-32.0); Mean Corpuscular Volume 99.6 fL (81-99); Mean Platelet Vol. 12.9 fl (6.2-12.0); Monocyte# 1.07 X10^3/uL; Monocyte% 14.1 % (0-10); NRBC Flagged by Analyzer 0 % (0-5); Neutrophil # 4.45 X10^3/uL (2.7-7.7); Neutrophil % 58.4 % (47-70); Platelet Count 254 K/mm3 (150-450); RBC Distribution Width CV 12.4 % (11.6-14.6); RBC Distribution Width SD 45.8 fl (35.1-43.9); Red Blood Count 5.07 M/mm3 (4.2-5.4); White Blood Count 7.6 K/mm3 (4.4-11.0)
[2020-06-18 12:28] LABS: Vitamin D,25 Hydroxy 26.3 ng/mL
[2020-06-18 12:39] LABS: ALB/GLOB Ratio 0.9 RATIO (0.9-2.4); AST(SGOT) 19 U/L (15-37); Alanine Aminotransfer ALT/SGPT 23 U/L (13-56); Albumin, Serum 3.6 g/dL (3.2-5.0); Alkaline Phosphatase 67 U/L (45-117); Anion Gap 9 (5-15); BUN 20 mg/dL (7-18); BUN/Creat Ratio 15.9 RATIO (10-20); Calcium,Total 9.1 mg/dL (8.5-10.1); Chloride 105 mmol/L (98-107); Creatinine, Serum 1.26 mg/dL (0.55-1.02); EST Glomerular Filtration Rate 44 mL/min (>60); Est Glom Filt Rate - Afr Amer 53 mL/min (>60); Globulin 3.8 g/dL (2.2-4.2); Glucose 97 mg/dL (74-106); Potassium 3.8 mmol/L (3.5-5.1); Protein, Total 7.4 g/dL (6.4-8.2); Sodium Level 136 mmol/L (136-145); Thyroid Stim Hormone (TSH) 2.12 uIU/mL (0.358-3.74); Uric Acid 3.7 mg/dL (2.6-6.0)
== END ==
PROVIDERS: PCP Family Medicine Geriatric Medicine; Visit Provider Family Medicine Geriatric Medicine
DX: I10 Essential (primary) hypertension (principal); M10.9 Gout, unspecified; E55.9 Vitamin D deficiency, unspecified
CPT/HCPCS: 36415; 80053; 82306; 84443; 84550; 85025

== ENCOUNTER → 2020-06-23 | Outpatient (CLI) | payer MEDICARE, SELFPAY ==
[2018-10-17 08:24] VITALS: BMI 39.1
--- NOTE | 2020-06-23 09:30 | LES_PTH ---
PATIENT: BRIANNE CALL LOC: [facility] U#:[id number] AGE/SX: 79/F ROOM: RE06/23/[address]: Dr. Scott Hull MD : 1940 BED: DIS: 06/23/2020 SPEC #: [id number] RECD: 06/23/20 12:14 STATUS: ANDREW WENDIE #: [id number] PEGGY: 06/23/20 09:[address]: Scott Hull Chi DEPT: SURGICAL PATHOLOGY RECD BY: Rylee Henry Tissues: Skin of forehead Procedures: Surgery Specimen Level IV HEADER OPERATION: Forehead, shave biopsy PRE-OP DIAGNOSIS: Forehead lesion TISSUE SUBMITTED: Forehead MICROSCOPIC DIAGNOSIS Skin lesion of forehead, shave biopsy: Basal cell carcinoma, ulcerated, incompletely excised. AM:[email or web address] 06/24/2020 MICROSCOPIC DESCRIPTION Slides are reviewed. GROSS DESCRIPTION Received in fixative is one container labeled with the patient's name and designated forehead. The specimen consists of a shave biopsy of chadwick-white skin measuring 1 x 0.6 x 0.1 cm. The specimen is inked and submitted entirely in one cassette. It will be sectioned at the time of embedding. / SJ:sanjuanita 06/23/20 TC:0 CPT: 85831
== END | disposition home or self-care (01) ==
LOC: LABSPEC 11:00
PROVIDERS: PCP Family Medicine Geriatric Medicine; Visit Provider Family Medicine Geriatric Medicine
DX: C44.319 Basal cell carcinoma of skin of other parts of face (principal)
CPT/HCPCS: 88305

== ENCOUNTER → 2020-09-25 10:35 | Outpatient (CLI) | payer MEDICARE, SELFPAY ==
[2018-10-17 08:24] VITALS: BMI 39.1
--- NOTE | 2020-09-25 10:50 | RAD_ITS ---
STUDY: X-RAY CHEST REASON FOR EXAM: Female, 79 years old. SHORT OF BREATH TECHNIQUE: PA and lateral views of the chest. COMPARISON: None. FINDINGS: Status post coronary artery bypass grafting. The lungs are clear and expanded. There is no demonstrated pleural abnormality. Normal size heart. Normal mediastinum and brandi. Normal visualized pulmonary arteries. Normal visualized aortic arch and descending thoracic aorta. Normal visualized thoracic spine. Normal visualized ribs, clavicles, and shoulders. There is no demonstrated abnormality of the visualized soft tissue structures of the upper abdomen. RAD/Chest PA and Lateral IMPRESSION: No active disease. Electronically Signed: Dillon Ordoñez MD at 6:36 EDT Tel , Service support ,
[2020-09-25 11:37] LABS: Absolute Lymphocyte Count 1.26 X10^3/uL (0.83-4.51); Absolute Neutrophil Count 3.5 X10^3/uL (2.0-7.7); Basophil# 0.08 X10^3/uL; Basophil% 1.4 % (0-1); Eosinophil# 0.08 X10^3/uL; Eosinophils% 1.4 % (0-5); Hematocrit 48.8 % (37-47); Lymphocyte # 1.26 X10^3/ul (0.83-4.51); Mean Corp Hgb Conc 32.8 g/dL (32-36); Mean Corpuscular Hgb 31.5 pg (27.0-32.0); Mean Corpuscular Volume 96.1 fL (81-99); Mean Platelet Vol. 12.6 fl (6.2-12.0); Monocyte# 0.72 X10^3/uL; Monocyte% 12.6 % (0-10); NRBC Flagged by Analyzer 0 % (0-5); Neutrophil # 3.54 X10^3/uL (2.7-7.7); Neutrophil % 61.7 % (47-70); Platelet Count 233 K/mm3 (150-450); RBC Distribution Width CV 13.2 % (11.6-14.6); RBC Distribution Width SD 47.2 fl (35.1-43.9); Red Blood Count 5.08 M/mm3 (4.2-5.4); White Blood Count 5.7 K/mm3 (4.4-11.0)
[2020-09-25 12:01] LABS: Anion Gap 7 (5-15); BNP,B-Type NATRIURETIC PEPTIDE 89.7 pg/mL (0-100); BUN 18 mg/dL (7-18); BUN/Creat Ratio 15.7 RATIO (10-20); Calcium,Total 9.2 mg/dL (8.5-10.1); Chloride 104 mmol/L (98-107); Creatinine, Serum 1.15 mg/dL (0.55-1.02); EST Glomerular Filtration Rate 48 mL/min (>60); Est Glom Filt Rate - Afr Amer 58 mL/min (>60); Glucose 103 mg/dL (74-106); Potassium 4.5 mmol/L (3.5-5.1); Sodium Level 134 mmol/L (136-145)
== END ==
LOC: POLAB3 10:36 → RAD 10:47
PROVIDERS: PCP Family Medicine Geriatric Medicine; Visit Provider Family Medicine Geriatric Medicine
DX: R06.02 Shortness of breath (principal)
CPT/HCPCS: 36415; 71046; 80048; 83880; 85025

== ENCOUNTER → 2020-09-29 08:21 | Outpatient (CLI) | payer MEDICARE, SELFPAY ==
[2018-10-17 08:24] VITALS: BMI 39.1
--- NOTE | 2020-09-29 09:13 | ECHOCS_ITS ---
Reason For Study: SOB Procedure This was a 2D Doppler, Color Flow transthoracic echocardiogram. The study was technically difficult. Contrast injection was performed. Exam performed in department. Left Ventricle Normal LV size. Left ventricular systolic function is normal. The estimated ejection fraction is 55 %. Unable to assess diastolic dysfunction. No regional wall motion abnormalities noted. Right Ventricle Normal RV size. Normal systolic function. Atria The left atrium is severely enlarged. The right atrium is mildly enlarged. No doppler evidence for ASD. Mitral Valve There is moderate to severe mitral annular calcification. Extension of the mitral annular calcification onto the base of the posterior mitral valve leaflet. Mild-Moderate (1-2+) mitral valve insufficiency. Tricuspid Valve Normal tricuspid valve. Mild tricuspid valve insufficiency. Right ventricular systolic pressure estimated to be 41 mmHg. Aortic Valve Stable appearing bioprosthetic aortic valve apparatus. Trivial transvalvular insufficiency of the aortic valve. Pulmonic Valve The pulmonic valve is not well visualized. Trivial pulmonic valve insufficiency. Great Vessels Normal sized aortic root. Pericardium/Pleural No pericardial effusion. Medication 22 gauge I.V. with prn adaptor inserted into right arm. Diluted definity 2ml given slow IV push to enhance endocardial definition. MMode/2D Measurements & Calculations LVIDd: 4.5 cm IVSd: 1.6 cm LVOT diam: 2.0 cm LVIDs: 3.3 cm LVPWd: 1.2 cm RVDd: 3.9 cm FS: 26.4 % LVOT area: 3.1 cm2 Ao root diam: 3.8 cm LAV(MOD-bp): 93.0 ml LA A4 area: 29.9 cm2 LA dimension: 4.9 cm LAV(MOD-bp) Indexed: 45.0 ml/m2 LAV(MOD-sp2): 78.7 ml LAV(MOD-sp4): 99.8 ml RA A4 area: 19.5 cm2 Doppler Measurements & Calculations MV E max sujey: 105.6 cm/sec Ao V2 max: 265.6 cm/sec LV V1 max: 82.4 cm/sec Ao max P.3 mmHg LV V1 max P.9 mmHg Ao V2 mean: 187.3 cm/sec LV V1 mean P.8 mmHg Ao mean P.9 mmHg LV V1 mean: 61.8 cm/sec Ao V2 VTI: 70.5 cm LV V1 VTI: 21.4 cm RAMÓN(I,D): 0.93 cm2 RAMÓN(V,D): 0.95 cm2 MR max sujey: 535.8 cm/sec SV(LVOT): 65.9 ml PA V2 max: 72.7 cm/sec MR max P.8 mmHg TR max sujey: 309.0 cm/sec TR max P.2 mmHg ECHO/Echo Complete W/ Contrast Interpretation Summary The study was technically difficult. Contrast injection was performed. Left ventricular systolic function is normal. The estimated ejection fraction is 55 %. The left atrium is severely enlarged. The right atrium is mildly enlarged. There is moderate to severe mitral annular calcification. Extension of the mitral annular calcification onto the base of the posterior mi tral valve leaflet. Mild-Moderate (1-2+) mitral valve insufficiency. Mild tricuspid valve insufficiency. Stable appearing bioprosthetic aortic valve apparatus. Trivial transvalvular insufficiency of the aortic valve. Trivial pulmonic valve insufficiency. Right ventricular systolic pressure estimated to be 41 mmHg. Unable to assess diastolic dysfunction. Ordering Physician: Scott Hull Referring Physician: Scott Hull Chi Performed By: Fernando Cotter RCS
--- NOTE | 2020-09-30 09:46 | PFT ---
INTRODUCTION: The patient is a 79-year-old female that presents for pulmonary function studies secondary to a diagnosis of shortness of breath. Respiratory therapy reports good patient effort. Bronchodilators were used during testing. INTERPRETATION: Forced expiration spirometry demonstrates no evidence of a large airways obstructive ventilatory defect. There was no significant response to aerosolized bronchodilators. Spirograms are of good quality and plateau normally. Body plethysmography was performed and revealed a decreased TLC to 3.52 L, 81% of predicted, indicative of a mild restrictive ventilatory impairment. Diffusing capacity by single breath CO is reduced at 69% of predicted. IMPRESSION: Mild restrictive ventilatory impairment with disproportionate reduction in diffusing capacity.
== END ==
PROVIDERS: PCP Family Medicine Geriatric Medicine; Referring Provider Family Medicine Geriatric Medicine; Visit Provider Family Medicine Geriatric Medicine
DX: R06.02 Shortness of breath (principal)
CPT/HCPCS: 93306; 94060; 94726; 94729; Q9957; A4216; C8929; J3490

== ENCOUNTER → 2020-12-23 11:08 | Outpatient (CLI) | payer MEDICARE, SELFPAY ==
[2020-12-23 12:23] LABS: Absolute Lymphocyte Count 1.23 X10^3/uL (0.83-4.51); Absolute Neutrophil Count 2.8 X10^3/uL (2.0-7.7); Basophil# 0.06 X10^3/uL; Basophil% 1.3 % (0-1); Eosinophil# 0.09 X10^3/uL; Eosinophils% 1.9 % (0-5); Hematocrit 43.6 % (37-47); Hemoglobin 14.2 g/dL (12.0-15.0); Lymphocyte # 1.23 X10^3/ul (0.83-4.51); Lymphocyte % 26.1 % (19-41); Mean Corp Hgb Conc 32.6 g/dL (32-36); Mean Corpuscular Hgb 30.6 pg (27.0-32.0); Mean Platelet Vol. 12.6 fl (6.2-12.0); Monocyte# 0.55 X10^3/uL; Monocyte% 11.7 % (0-10); NRBC Flagged by Analyzer 0 % (0-5); Neutrophil # 2.75 X10^3/uL (2.7-7.7); Neutrophil % 58.4 % (47-70); Platelet Count 220 K/mm3 (150-450); RBC Distribution Width CV 13.5 % (11.6-14.6); RBC Distribution Width SD 46.5 fl (35.1-43.9); Red Blood Count 4.64 M/mm3 (4.2-5.4); White Blood Count 4.7 K/mm3 (4.4-11.0)
[2020-12-23 12:57] LABS: Vitamin D,25 Hydroxy 19.5 ng/mL
[2020-12-23 13:06] LABS: ALB/GLOB Ratio 0.9 RATIO (0.9-2.4); AST(SGOT) 18 U/L (15-37); Alanine Aminotransfer ALT/SGPT 22 U/L (13-56); Albumin, Serum 3.2 g/dL (3.2-5.0); Alkaline Phosphatase 72 U/L (45-117); Anion Gap 8 (5-15); BUN 22 mg/dL (7-18); BUN/Creat Ratio 21.8 RATIO (10-20); Calcium,Total 8.8 mg/dL (8.5-10.1); Chloride 106 mmol/L (98-107); Creatinine, Serum 1.01 mg/dL (0.55-1.02); EST Glomerular Filtration Rate 56 mL/min (>60); Est Glom Filt Rate - Afr Amer 68 mL/min (>60); Globulin 3.7 g/dL (2.2-4.2); Glucose 104 mg/dL (74-106); Protein, Total 6.9 g/dL (6.4-8.2); Sodium Level 138 mmol/L (136-145); Thyroid Stim Hormone (TSH) 2.04 uIU/mL (0.358-3.74); Uric Acid 3.4 mg/dL (2.6-6.0)
== END ==
PROVIDERS: PCP Family Medicine Geriatric Medicine; Visit Provider Family Medicine Geriatric Medicine
DX: E55.9 Vitamin D deficiency, unspecified (principal); I10 Essential (primary) hypertension; M10.9 Gout, unspecified
CPT/HCPCS: 36415; 80053; 82306; 84443; 84550; 85025

== ENCOUNTER → 2021-01-08 13:39 | Outpatient (CLI) | payer MEDICARE, SELFPAY ==
--- NOTE | 2021-01-08 14:11 | VDLE_ITS ---
Reason For Study: edema RIGHT LEFT GSV is normal. GSV is normal. CFV is compressible, spontaneous, phasic, CFV is compressible, spontaneous, phasic, competent and demonstrates normal competent, and demonstrates normal augmentation. augmentation. FV is compressible, spontaneous, phasic, FV is compressible, spontaneous, phasic, competent and demonstrates normal competent and demonstrates normal augmentation. augmentation. POP V is compressible, spontaneous, phasic, POP V is compressible, spontaneous, phasic, competent and demonstrates normal competent and demonstrates normal augmentation. augmentation. T/P Trunk is compressible. T/P Trunk is compressible. PTV is compressible. PTV is compressible. RT PerV is compressible. LT PerV is compressible. VL/Venous Duplex US - Sony Extrem Interpretation Summary Deep veins of the lower extremities are bilaterally patent and compressible seg mentally. There is no evidence of deep vein thrombosis on either side. Valvular competence appears in tact within the proximal deep venous systems bilaterally. The great saphenous veins appear bila terally patent and compressible segmentally. Ordering Physician: Scott Hull Performed By: Arslan Ortiz RVT
== END ==
PROVIDERS: PCP Family Medicine Geriatric Medicine; Referring Provider Family Medicine Geriatric Medicine; Visit Provider Family Medicine Geriatric Medicine
DX: R60.0 Localized edema (principal)
CPT/HCPCS: 93970

== ENCOUNTER → 2021-01-25 08:44 | Outpatient (CLI) | payer MEDICARE, SELFPAY ==
[2021-01-25 10:29] LABS: Anion Gap 4 (5-15); BUN 25 mg/dL (7-18); BUN/Creat Ratio 19.5 RATIO (10-20); Calcium,Total 9.5 mg/dL (8.5-10.1); Chloride 105 mmol/L (98-107); Creatinine, Serum 1.28 mg/dL (0.55-1.02); EST Glomerular Filtration Rate 43 mL/min (>60); Est Glom Filt Rate - Afr Amer 52 mL/min (>60); Glucose 99 mg/dL (74-106); Potassium 4.3 mmol/L (3.5-5.1); Sodium Level 136 mmol/L (136-145)
== END ==
PROVIDERS: PCP Family Medicine Geriatric Medicine; Referring Provider Family Medicine Geriatric Medicine; Visit Provider Family Medicine Geriatric Medicine
DX: I10 Essential (primary) hypertension (principal)
CPT/HCPCS: 36415; 80048

== ENCOUNTER 2021-06-30 12:20 | Outpatient (CLI) | payer MEDICARE, SELFPAY ==
[2021-06-30 12:31] LABS: Absolute Lymphocyte Count 1.74 X10^3/uL (0.83-4.51); Absolute Neutrophil Count 3.8 X10^3/uL (2.0-7.7); Basophil# 0.09 X10^3/uL; Basophil% 1.4 % (0-1); Eosinophil# 0.07 X10^3/uL; Eosinophils% 1.1 % (0-5); Hematocrit 47.8 % (37-47); Hemoglobin 15.7 g/dL (12.0-15.0); Lymphocyte # 1.74 X10^3/ul (0.83-4.51); Lymphocyte % 27.3 % (19-41); Mean Corp Hgb Conc 32.8 g/dL (32-36); Mean Corpuscular Hgb 31.7 pg (27.0-32.0); Mean Corpuscular Volume 96.6 fL (81-99); Mean Platelet Vol. 12.7 fl (6.2-12.0); Monocyte# 0.68 X10^3/uL; Monocyte% 10.7 % (0-10); NRBC Flagged by Analyzer 0 % (0-5); Neutrophil # 3.77 X10^3/uL (2.7-7.7); Neutrophil % 59.2 % (47-70); Platelet Count 242 K/mm3 (150-450); RBC Distribution Width CV 13.1 % (11.6-14.6); RBC Distribution Width SD 46.4 fl (35.1-43.9); Red Blood Count 4.95 M/mm3 (4.2-5.4); White Blood Count 6.4 K/mm3 (4.4-11.0)
[2021-06-30 12:56] LABS: Vitamin D,25 Hydroxy 24.2 ng/mL
[2021-06-30 13:07] LABS: AST(SGOT) 23 U/L (15-37); Alanine Aminotransfer ALT/SGPT 26 U/L (13-56); Albumin, Serum 3.6 g/dL (3.2-5.0); Alkaline Phosphatase 71 U/L (45-117); Anion Gap 6 (5-15); BUN 19 mg/dL (7-18); BUN/Creat Ratio 14.7 RATIO (10-20); Calcium,Total 9.2 mg/dL (8.5-10.1); Chloride 106 mmol/L (98-107); Creatinine, Serum 1.29 mg/dL (0.55-1.02); EST Glomerular Filtration Rate 42 mL/min (>60); Est Glom Filt Rate - Afr Amer 51 mL/min (>60); Globulin 3.7 g/dL (2.2-4.2); Glucose 112 mg/dL (74-106); Potassium 4.4 mmol/L (3.5-5.1); Protein, Total 7.3 g/dL (6.4-8.2); Sodium Level 137 mmol/L (136-145); Thyroid Stim Hormone (TSH) 2.54 uIU/mL (0.358-3.74); Uric Acid 4.3 mg/dL (2.6-6.0)
== END 2021-06-30 23:59 | disposition home or self-care (01) ==
LOC: POLAB3 12:20
PROVIDERS: PCP Family Medicine Geriatric Medicine; Visit Provider Family Medicine Geriatric Medicine
DX: I10 Essential (primary) hypertension (principal); M10.9 Gout, unspecified; E55.9 Vitamin D deficiency, unspecified
CPT/HCPCS: 36415; 80053; 82306; 84443; 84550; 85025

== ENCOUNTER → 2021-12-30 | Outpatient (CLI) | payer MEDICARE, SELFPAY ==
[2021-12-30 12:22] LABS: Absolute Lymphocyte Count 1.81 X10^3/uL (0.83-4.51); Absolute Neutrophil Count 3.7 X10^3/uL (2.0-7.7); Basophil# 0.07 X10^3/uL; Basophil% 1.1 % (0-1); Eosinophil# 0.09 X10^3/uL; Eosinophils% 1.4 % (0-5); Hematocrit 46.4 % (37-47); Hemoglobin 15.4 g/dL (12.0-15.0); Lymphocyte # 1.81 X10^3/ul (0.83-4.51); Lymphocyte % 27.5 % (19-41); Mean Corp Hgb Conc 33.2 g/dL (32-36); Mean Corpuscular Volume 96.3 fL (81-99); Mean Platelet Vol. 12.6 fl (6.2-12.0); Monocyte% 13.7 % (0-10); NRBC Flagged by Analyzer 0 % (0-5); Neutrophil # 3.68 X10^3/uL (2.7-7.7); Neutrophil % 55.7 % (47-70); Platelet Count 222 K/mm3 (150-450); RBC Distribution Width SD 45.9 fl (35.1-43.9); Red Blood Count 4.82 M/mm3 (4.2-5.4); White Blood Count 6.6 K/mm3 (4.4-11.0)
[2021-12-30 12:45] LABS: Vitamin D,25 Hydroxy 18.4 ng/mL
[2021-12-30 12:50] LABS: ALB/GLOB Ratio 0.9 RATIO (0.9-2.4); AST(SGOT) 22 U/L (15-37); Alanine Aminotransfer ALT/SGPT 23 U/L (13-56); Albumin, Serum 3.4 g/dL (3.2-5.0); Alkaline Phosphatase 78 U/L (45-117); Anion Gap 7 (5-15); BUN 22 mg/dL (7-18); Calcium,Total 9.1 mg/dL (8.5-10.1); Chloride 108 mmol/L (98-107); Creatinine, Serum 1.16 mg/dL (0.55-1.02); EST Glomerular Filtration Rate 48 mL/min (>60); Est Glom Filt Rate - Afr Amer 58 mL/min (>60); Globulin 3.9 g/dL (2.2-4.2); Glucose 104 mg/dL (74-106); Potassium 4.1 mmol/L (3.5-5.1); Protein, Total 7.3 g/dL (6.4-8.2); Sodium Level 138 mmol/L (136-145); Thyroid Stim Hormone (TSH) 2.92 uIU/mL (0.358-3.74); Uric Acid 4.1 mg/dL (2.6-6.0)
== END | disposition home or self-care (01) ==
LOC: POLAB3 09:30
PROVIDERS: PCP Family Medicine Geriatric Medicine; Visit Provider Family Medicine Geriatric Medicine
DX: I10 Essential (primary) hypertension (principal); E55.9 Vitamin D deficiency, unspecified; M10.9 Gout, unspecified
CPT/HCPCS: 36415; 80053; 82306; 84443; 84550; 85025

== ENCOUNTER → 2022-06-30 | Outpatient (CLI) | payer MEDICARE, SELFPAY ==
[2022-06-30 13:10] LABS: Absolute Neutrophil Count 5.8 X10^3/uL (2.0-7.7); Basophil# 0.11 X10^3/uL; Basophil% 1.3 % (0-1); Eosinophil# 0.14 X10^3/uL; Eosinophils% 1.6 % (0-5); Hematocrit 47.2 % (37-47); Hemoglobin 15.7 g/dL (12.0-15.0); Lymphocyte % 20.5 % (19-41); Mean Corp Hgb Conc 33.3 g/dL (32-36); Mean Corpuscular Hgb 32.4 pg (27.0-32.0); Mean Corpuscular Volume 97.5 fL (81-99); Mean Platelet Vol. 12.5 fl (6.2-12.0); Monocyte# 0.84 X10^3/uL; Monocyte% 9.6 % (0-10); NRBC Flagged by Analyzer 0 % (0-5); Neutrophil % 66.1 % (47-70); Platelet Count 252 K/mm3 (150-450); RBC Distribution Width CV 13.2 % (11.6-14.6); RBC Distribution Width SD 47.4 fl (35.1-43.9); Red Blood Count 4.84 M/mm3 (4.2-5.4); White Blood Count 8.8 K/mm3 (4.4-11.0)
[2022-06-30 13:25] LABS: Vitamin D,25 Hydroxy 33.6 ng/mL
[2022-06-30 13:47] LABS: AST(SGOT) 25 U/L (15-37); Alanine Aminotransfer ALT/SGPT 21 U/L (13-56); Albumin, Serum 3.5 g/dL (3.2-5.0); Alkaline Phosphatase 74 U/L (45-117); Anion Gap 9 (5-15); BUN 25 mg/dL (7-18); BUN/Creat Ratio 18.2 RATIO (10-20); Chloride 104 mmol/L (98-107); Creatinine, Serum 1.37 mg/dL (0.55-1.02); EST Glomerular Filtration Rate 39 mL/min (>60); Est Glom Filt Rate - Afr Amer 48 mL/min (>60); Globulin 3.4 g/dL (2.2-4.2); Glucose 106 mg/dL (74-106); Potassium 4.5 mmol/L (3.5-5.1); Protein, Total 6.9 g/dL (6.4-8.2); Sodium Level 136 mmol/L (136-145); Uric Acid 3.9 mg/dL (2.6-6.0)
== END | disposition home or self-care (01) ==
LOC: POLAB3 09:25
PROVIDERS: PCP Family Medicine Geriatric Medicine; Visit Provider Family Medicine Geriatric Medicine
DX: I10 Essential (primary) hypertension (principal); M10.9 Gout, unspecified; E55.9 Vitamin D deficiency, unspecified
CPT/HCPCS: 36415; 80053; 82306; 84443; 84550; 85025

== ENCOUNTER → 2023-01-05 | Outpatient (CLI) | payer MEDICARE, SELFPAY ==
[2023-01-05 10:05] LABS: Absolute Lymphocyte Count 2.04 X10^3/uL (0.83-4.51); Absolute Neutrophil Count 3.9 X10^3/uL (2.0-7.7); Basophil# 0.08 X10^3/uL; Basophil% 1.1 % (0-1); Eosinophil# 0.15 X10^3/uL; Eosinophils% 2.1 % (0-5); Hematocrit 48.1 % (37-47); Hemoglobin 15.7 g/dL (12.0-15.0); Lymphocyte # 2.04 X10^3/ul (0.83-4.51); Lymphocyte % 28.6 % (19-41); Mean Corp Hgb Conc 32.6 g/dL (32-36); Mean Corpuscular Volume 98.2 fL (81-99); Monocyte# 0.93 X10^3/uL; NRBC Flagged by Analyzer 0 % (0-5); Neutrophil # 3.89 X10^3/uL (2.7-7.7); Neutrophil % 54.6 % (47-70); Platelet Count 227 K/mm3 (150-450); RBC Distribution Width CV 13.5 % (11.6-14.6); White Blood Count 7.1 K/mm3 (4.4-11.0)
[2023-01-05 10:34] LABS: Vitamin D,25 Hydroxy 16.6 ng/mL
[2023-01-05 11:28] LABS: ALB/GLOB Ratio 0.8 RATIO (0.9-2.4); AST(SGOT) 18 U/L (15-37); Alanine Aminotransfer ALT/SGPT 22 U/L (13-56); Albumin, Serum 3.3 g/dL (3.2-5.0); Alkaline Phosphatase 63 U/L (45-117); Anion Gap 9 (5-15); BUN 18 mg/dL (7-18); BUN/Creat Ratio 15.3 RATIO (10-20); Calcium,Total 8.7 mg/dL (8.5-10.1); Chloride 108 mmol/L (98-107); Creatinine, Serum 1.18 mg/dL (0.55-1.02); EST Glomerular Filtration Rate 47 mL/min (>60); Est Glom Filt Rate - Afr Amer 56 mL/min (>60); Globulin 3.9 g/dL (2.2-4.2); Glucose 108 mg/dL (74-106); Potassium 4.1 mmol/L (3.5-5.1); Protein, Total 7.2 g/dL (6.4-8.2); Sodium Level 140 mmol/L (136-145); Thyroid Stim Hormone (TSH) 2.88 uIU/mL (0.358-3.74); Uric Acid 4.3 mg/dL (2.6-6.0)
== END | disposition home or self-care (01) ==
LOC: POLAB3 09:36
PROVIDERS: PCP Family Medicine Geriatric Medicine; Visit Provider Family Medicine Geriatric Medicine
DX: I10 Essential (primary) hypertension (principal); M10.9 Gout, unspecified; E55.9 Vitamin D deficiency, unspecified
CPT/HCPCS: 36415; 80053; 82306; 84443; 84550; 85025

== ENCOUNTER → 2023-07-13 | Outpatient (CLI) | payer MEDICARE, SELFPAY ==
[2023-07-13 11:01] LABS: Absolute Lymphocyte Count 1.36 X10^3/uL (0.83-4.51); Absolute Neutrophil Count 3.4 X10^3/uL (2.0-7.7); Basophil# 0.08 X10^3/uL; Basophil% 1.4 % (0-1); Eosinophil# 0.09 X10^3/uL; Eosinophils% 1.6 % (0-5); Hemoglobin 15.2 g/dL (12.0-15.0); Lymphocyte # 1.36 X10^3/ul (0.83-4.51); Lymphocyte % 23.9 % (19-41); Mean Corpuscular Hgb 32.1 pg (27.0-32.0); Mean Platelet Vol. 12.7 fl (6.2-12.0); Monocyte# 0.72 X10^3/uL; Monocyte% 12.6 % (0-10); NRBC Flagged by Analyzer 0 % (0-5); Neutrophil # 3.41 X10^3/uL (2.7-7.7); Neutrophil % 59.8 % (47-70); Platelet Count 190 K/mm3 (150-450); RBC Distribution Width CV 13.1 % (11.6-14.6); RBC Distribution Width SD 47.2 fl (35.1-43.9); Red Blood Count 4.74 M/mm3 (4.2-5.4); White Blood Count 5.7 K/mm3 (4.4-11.0)
[2023-07-13 11:32] LABS: Vitamin D,25 Hydroxy 21.5 ng/mL
[2023-07-13 11:52] LABS: ALB/GLOB Ratio 0.9 RATIO (0.9-2.4); AST(SGOT) 26 U/L (15-37); Alanine Aminotransfer ALT/SGPT 19 U/L (13-56); Albumin, Serum 3.4 g/dL (3.2-5.0); Alkaline Phosphatase 64 U/L (45-117); Anion Gap 5 (5-15); BUN 20 mg/dL (7-18); BUN/Creat Ratio 15.4 RATIO (10-20); Calcium,Total 8.8 mg/dL (8.5-10.1); Chloride 107 mmol/L (98-107); Cholesterol 170 mg/dL (200); EST Glomerular Filtration Rate 42 mL/min (>60); Est Glom Filt Rate - Afr Amer 50 mL/min (>60); Globulin 3.6 g/dL (2.2-4.2); Glucose 108 mg/dL (74-106); High Density Lipoprotein 37 mg/dL; Potassium 4.2 mmol/L (3.5-5.1); Sodium Level 138 mmol/L (136-145); Thyroid Stim Hormone (TSH) 2.73 uIU/mL (0.358-3.74); Triglycerides 186 mg/dL; Uric Acid 4.5 mg/dL (2.6-6.0); Very Low Density Lipoprotein 37 mg/dL (5-40)
== END | disposition home or self-care (01) ==
LOC: LAB 10:11
PROVIDERS: PCP Family Medicine Geriatric Medicine; Referring Provider Family Medicine Geriatric Medicine; Visit Provider Family Medicine Geriatric Medicine
DX: E78.5 Hyperlipidemia, unspecified (principal); I10 Essential (primary) hypertension; M10.9 Gout, unspecified; E55.9 Vitamin D deficiency, unspecified
CPT/HCPCS: 36415; 80053; 80061; 82306; 84443; 84550; 85025

== ENCOUNTER → 2023-07-27 | Outpatient (CLI) | payer MEDICARE, SELFPAY ==
[2023-07-27 12:41] LABS: Absolute Lymphocyte Count 1.13 X10^3/uL (0.83-4.51); Absolute Neutrophil Count 3.9 X10^3/uL (2.0-7.7); Basophil# 0.08 X10^3/uL; Basophil% 1.4 % (0-1); Eosinophil# 0.12 X10^3/uL; Hematocrit 48.5 % (37-47); Hemoglobin 15.6 g/dL (12.0-15.0); Lymphocyte # 1.13 X10^3/ul (0.83-4.51); Lymphocyte % 19.2 % (19-41); Mean Corp Hgb Conc 32.2 g/dL (32-36); Mean Corpuscular Hgb 31.5 pg (27.0-32.0); Mean Corpuscular Volume 97.8 fL (81-99); Mean Platelet Vol. 12.6 fl (6.2-12.0); Monocyte# 0.64 X10^3/uL; Monocyte% 10.8 % (0-10); NRBC Flagged by Analyzer 0 % (0-5); Neutrophil # 3.89 X10^3/uL (2.7-7.7); Neutrophil % 65.9 % (47-70); Platelet Count 190 K/mm3 (150-450); RBC Distribution Width CV 13.3 % (11.6-14.6); Red Blood Count 4.96 M/mm3 (4.2-5.4); White Blood Count 5.9 K/mm3 (4.4-11.0)
[2023-07-27 13:32] LABS: Anion Gap 6 (5-15); BUN 24 mg/dL (7-18); BUN/Creat Ratio 17.9 RATIO (10-20); Chloride 108 mmol/L (98-107); Creatinine, Serum 1.34 mg/dL (0.55-1.02); EST Glomerular Filtration Rate 40 mL/min (>60); Est Glom Filt Rate - Afr Amer 49 mL/min (>60); Glucose 109 mg/dL (74-106); Sodium Level 137 mmol/L (136-145)
== END | disposition home or self-care (01) ==
LOC: LAB 11:43
PROVIDERS: PCP Family Medicine Geriatric Medicine; Referring Provider Family Medicine Geriatric Medicine; Visit Provider Family Medicine Geriatric Medicine
DX: I10 Essential (primary) hypertension (principal)
CPT/HCPCS: 36415; 80048; 85025

== ENCOUNTER → 2023-09-14 | Outpatient (CLI) | payer MEDICARE, SELFPAY ==
[2023-09-14 09:56] LABS: Anion Gap 4 (5-15); BUN 18 mg/dL (7-18); BUN/Creat Ratio 13.1 RATIO (10-20); Calcium,Total 8.9 mg/dL (8.5-10.1); Chloride 106 mmol/L (98-107); Creatinine, Serum 1.37 mg/dL (0.55-1.02); EST Glomerular Filtration Rate 39 mL/min (>60); Est Glom Filt Rate - Afr Amer 47 mL/min (>60); Glucose 106 mg/dL (74-106); Potassium 4.5 mmol/L (3.5-5.1); Sodium Level 137 mmol/L (136-145)
== END | disposition home or self-care (01) ==
LOC: LAB 08:51
PROVIDERS: PCP Family Medicine Geriatric Medicine; Referring Provider Family Medicine Geriatric Medicine; Visit Provider Family Medicine Geriatric Medicine
DX: I10 Essential (primary) hypertension (principal)
CPT/HCPCS: 36415; 80048

== ENCOUNTER → 2023-09-22 | Outpatient (CLI) | payer MEDICARE, SELFPAY ==
--- NOTE | 2023-09-22 13:56 | ECHOD_ITS ---
Reason For Study: SOB Procedure This was a 2D Doppler, Color Flow transthoracic echocardiogram. Exam performed in department. Left Ventricle Normal LV size. Severe concentric left ventricular hypertrophy. The left ventricular ejection fraction is 30 %. No regional wall motion abnormalities noted. There is moderate to severe global hypokinesis of the left ventricle. Right Ventricle Normal RV size. Normal systolic function. Atria The left atrium is mildly enlarged. Normal right atrium. Mitral Valve Normal mitral valve. Tricuspid Valve Normal tricuspid valve. Mild tricuspid valve insufficiency. Aortic Valve Peak aortic valve gradient 71 mmHg. Mean aortic valve gradient 49 mmHg. Severe aortic stenosis. Bioprosthetic aortic valve. Pulmonic Valve Normal pulmonic valve. Great Vessels Normal aortic root. The pulmonary artery is normal size. Normal inferior vena cava. Pericardium/Pleural No pericardial effusion. MMode/2D Measurements & Calculations LVIDd: 4.4 cm IVSd: 1.7 cm LVOT diam: 2.1 cm LVIDs: 3.1 cm LVPWd: 1.4 cm LVOT area: 3.6 cm2 RVDd: 2.4 cm FS: 29.5 % LAV(MOD-bp): 86.7 ml LVAd ap4: 28.1 cm2 SV(MOD-sp4): 28.7 ml LAV(MOD-bp) Indexed: 42.0 ml/m2 LVLd ap4: 7.3 cm LAV(MOD-sp2): 88.5 ml EDV(MOD-sp4): 93.4 ml LAV(MOD-sp4): 88.2 ml EDV(sp4-el): 91.9 ml LVAs ap4: 21.8 cm2 LVLs ap4: 6.4 cm ESV(MOD-sp4): 64.7 ml ESV(sp4-el): 62.4 ml EF(MOD-sp4): 30.7 % EF(sp4-el): 32.1 % SV(sp4-el): 29.5 ml LA A4 area: 26.2 cm2 LA dimension(2D): 5.5 cm RA A4 area: 16.5 cm2 TAPSE: 1.0 cm Time Measurements MV dec time: 0.12 sec Doppler Measurements & Calculations MV E max sujey: 80.6 cm/sec MV V2 max: 85.2 cm/sec MV dec slope: 675.5 cm/sec2 MV A max sujey: 56.8 cm/sec MV max P.9 mmHg MV E/A: 1.4 MV V2 mean: 61.9 cm/sec MV mean P.6 mmHg MV V2 VTI: 17.8 cm Ao V2 max: 420.9 cm/sec PA V2 max: 83.4 cm/sec TR max sujey: 206.0 cm/sec Ao max P.0 mmHg PA max PG (full): 1.3 mmHg TR max P.0 mmHg Ao V2 mean: 336.3 cm/sec Ao mean P.9 mmHg Ao V2 VTI: 95.4 cm ECHO/Echo Complete Interpretation Summary Normal LV size. Severe concentric left ventricular hypertrophy. The left atrium is mildly enlarged. The left ventricular ejection fraction is 30 %. There is moderate to severe global hypokinesis of the left ventricle. Mean aortic valve gradient 49 mmHg. Severe aortic stenosis. Bioprosthetic aortic valve. Compared to the previous the left ventricular function is reduced and the aorti c valve appears to be more stenosed. Ordering Physician: Scott Hull Chi Referring Physician: Scott Hull Chi Performed By: Brooklynn James and Student
== END | disposition home or self-care (01) ==
LOC: CVS 13:53
PROVIDERS: PCP Family Medicine Geriatric Medicine; Referring Provider Family Medicine Geriatric Medicine; Visit Provider Family Medicine Geriatric Medicine
DX: R06.02 Shortness of breath (principal)
CPT/HCPCS: 93306

== ENCOUNTER → 2023-11-08 | Outpatient (CLI) | payer MEDICARE, SELFPAY ==
--- NOTE | 2023-11-08 10:30 | RAD_ITS ---
STUDY: X-RAY CHEST REASON FOR EXAM: Female, 82 years old. SOB/ALONSO TECHNIQUE: PA and lateral views of the chest. COMPARISON: 09/25/2020 FINDINGS: Status post median sternotomy. The lungs are clear and expanded. There is no demonstrated pleural abnormality. There is moderate cardiac enlargement. Normal mediastinum and brandi. Normal visualized pulmonary arteries. Normal visualized aortic arch and descending thoracic aorta. Normal visualized thoracic spine. Normal visualized ribs, clavicles, and shoulders. There is no demonstrated abnormality of the visualized soft tissue structures of the upper abdomen. RAD/Chest PA and Lateral IMPRESSION: No active disease. Cardiomegaly. Electronically Signed: Dillon Ordoñez MD at 12:47 EDT ,
[2023-11-08 11:51] LABS: BNP,B-Type NATRIURETIC PEPTIDE 346.5 pg/mL (0-100)
== END | disposition home or self-care (01) ==
LOC: RAD 10:26
PROVIDERS: PCP Family Medicine Geriatric Medicine; Referring Provider Internal Medicine Cardiovascular Disease; Visit Provider Internal Medicine Cardiovascular Disease
DX: I48.91 Unspecified atrial fibrillation (principal); I50.20 Unspecified systolic (congestive) heart failure; I11.0 Hypertensive heart disease with heart failure; I35.0 Nonrheumatic aortic (valve) stenosis; R06.09 Other forms of dyspnea
CPT/HCPCS: 36415; 71046; 80053; 80061; 83880

== ENCOUNTER → 2023-11-09 | Outpatient (CLI) | payer MEDICARE, SELFPAY ==
[2023-11-09 14:53] LABS: BNP,B-Type NATRIURETIC PEPTIDE 330.1 pg/mL (0-100)
[2023-11-09 14:58] LABS: ALB/GLOB Ratio 0.9 RATIO (0.9-2.4); AST(SGOT) 25 U/L (15-37); Alanine Aminotransfer ALT/SGPT 18 U/L (13-56); Albumin, Serum 3.5 g/dL (3.2-5.0); Alkaline Phosphatase 68 U/L (45-117); Anion Gap 10 (5-15); BUN 26 mg/dL (7-18); BUN/Creat Ratio 17.6 RATIO (10-20); Calcium,Total 8.8 mg/dL (8.5-10.1); Chloride 104 mmol/L (98-107); Cholesterol 175 mg/dL (200); Creatinine, Serum 1.48 mg/dL (0.55-1.02); EST Glomerular Filtration Rate 36 mL/min (>60); Est Glom Filt Rate - Afr Amer 43 mL/min (>60); Globulin 3.9 g/dL (2.2-4.2); Glucose 111 mg/dL (74-106); High Density Lipoprotein 35 mg/dL; Potassium 4.3 mmol/L (3.5-5.1); Protein, Total 7.4 g/dL (6.4-8.2); Sodium Level 138 mmol/L (136-145); Triglycerides 242 mg/dL; Very Low Density Lipoprotein 48 mg/dL (5-40)
== END | disposition home or self-care (01) ==
LOC: LAB 13:38
PROVIDERS: PCP Family Medicine Geriatric Medicine; Referring Provider Internal Medicine Cardiovascular Disease; Visit Provider Internal Medicine Cardiovascular Disease
DX: I50.32 Chronic diastolic (congestive) heart failure (principal); I35.0 Nonrheumatic aortic (valve) stenosis; R06.02 Shortness of breath
CPT/HCPCS: 80053; 80061; 83880

== ENCOUNTER 2023-12-04 07:13 | Day surgery (SDC) | payer MEDICARE, SELFPAY ==
[2023-11-28 10:03] LABS: Absolute Lymphocyte Count 1.45 X10^3/uL (0.83-4.51); Absolute Neutrophil Count 3.9 X10^3/uL (2.0-7.7); Basophil# 0.07 X10^3/uL; Basophil% 1.1 % (0-1); Eosinophil# 0.09 X10^3/uL; Eosinophils% 1.4 % (0-5); Hematocrit 50.3 % (37-47); Hemoglobin 16.2 g/dL (12.0-15.0); Lymphocyte # 1.45 X10^3/ul (0.83-4.51); Lymphocyte % 22.9 % (19-41); Mean Corp Hgb Conc 32.2 g/dL (32-36); Mean Corpuscular Hgb 31.3 pg (27.0-32.0); Mean Corpuscular Volume 97.3 fL (81-99); Mean Platelet Vol. 12.7 fl (6.2-12.0); Monocyte# 0.77 X10^3/uL; Monocyte% 12.2 % (0-10); NRBC Flagged by Analyzer 0 % (0-5); Neutrophil # 3.93 X10^3/uL (2.7-7.7); Neutrophil % 62.1 % (47-70); Platelet Count 191 K/mm3 (150-450); RBC Distribution Width CV 12.6 % (11.6-14.6); RBC Distribution Width SD 45.3 fl (35.1-43.9); Red Blood Count 5.17 M/mm3 (4.2-5.4); White Blood Count 6.3 K/mm3 (4.4-11.0)
[2023-11-28 10:19] LABS: International Normalized Ratio 1.6; Prothrombin Time (Protime)PT. 18.7 SECONDS (11.7-14.9)
[2023-11-28 10:20] LABS: Partial Thromboplast Time 28.7 Seconds (24.1-36.2)
[2023-11-28 10:33] LABS: Anion Gap 7 (5-15); BUN 35 mg/dL (7-18); BUN/Creat Ratio 21.1 RATIO (10-20); Calcium,Total 9.5 mg/dL (8.5-10.1); Chloride 103 mmol/L (98-107); Creatinine, Serum 1.66 mg/dL (0.55-1.02); EST Glomerular Filtration Rate 31 mL/min (>60); Est Glom Filt Rate - Afr Amer 38 mL/min (>60); Glucose 128 mg/dL (74-106); Potassium 3.8 mmol/L (3.5-5.1); Sodium Level 137 mmol/L (136-145)
[2023-12-01 09:17] VITALS: BMI 43.9
--- NOTE | 2023-12-04 09:39 | CL.D_ITS ---
Patient Name: BRIANNE CALL Study Date: 12/04/2023 Performing: Suzan Garces MD Ht: 62 inches 157.48 cm : 1940 Wt: 240 lbs 108.86 kg Age: 83 Gender: female BSA: 2.07 PROCEDURE(S) PERFORMED [id number])[facility] CLINICAL PROFILE AND INDICATIONS Indications: Valvular Disease Heart Failure: None CAD Presentations: No Sxs, no angina. CONCLUSIONS RECOMMENDATIONS Medical therapy Risk factor modification DESCRIPTION OF PROCEDURE The patient arrived to the procedure lab. The risks and benefits of the procedure as well as a full description of our services here and current unavailability of surgical backup were fully explained to the patient and/or their significant other prior to the catheterization. The Timeout was completed, verifying the correct patient and procedure. The patient's procedural site was prepped and draped in the usual fashion. Local anesthetic was given subcutaneously to right radial region with Lidocaine 2%. Using a modified Seldinger technique, arterial access was obtained via the right radial artery, a 6Fr sheath was inserted. Left Coronary Artery selective angiography was performed in multiple views using a 5 Fr. 4.0 [place] catheter. Right Coronary Artery selective angiography was then performed in multiple views using a 5 Fr. 3DRC (Andrew) catheter.The arterial sheath was pulled and a TR Band was applied for hemostasis. 13cc air inserted CORONARY ANGIOGRAPHY DOMINANCE: Right Dominant LEFT MAIN: No significant disease noted LEFT ANTERIOR DESCENDING ARTERY: LAD: Tubular 30% Mid lesion in LAD Tubular 30% Ostial lesion in LAD CIRCUMFLEX ARTERY: No significant disease noted RIGHT CORONARY ARTERY: No significant disease noted COMPLICATIONS No Complications PROCEDURE MEDICATIONS Fentanyl 50 mcg IV Versed 1 mg IV Oxygen: 2 L/min via nasal cannula Heparin given IA 12/04/2023 09:15:31 Heparin 2000 unit(s) IV 12/04/2023 09:20:29 SUMMARY OF HEMODYNAMIC DATA Time AIR REST ECG 07:46:03 AO 137/81 (106) SA 09:29:43 Signed By Suzan Garces MD On 12/04/2023 09:39:09 Suzan Garces MD
== END 2023-12-04 11:50 | disposition home or self-care (01) ==
PROVIDERS: PCP Family Medicine Geriatric Medicine; Referring Provider Internal Medicine Cardiovascular Disease; Visit Provider Internal Medicine Cardiovascular Disease
DX: I35.0 Nonrheumatic aortic (valve) stenosis (principal); I50.32 Chronic diastolic (congestive) heart failure; I13.0 Hypertensive heart and chronic kidney disease with heart failure and stage 1 through stage 4 chronic kidney disease, or unspecified chronic kidney disease; I48.91 Unspecified atrial fibrillation; N18.31 Chronic kidney disease, stage 3a; E66.9 Obesity, unspecified; E78.5 Hyperlipidemia, unspecified; R06.09 Other forms of dyspnea; R53.83 Other fatigue; R06.02 Shortness of breath; R00.2 Palpitations; Z90.710 Acquired absence of both cervix and uterus; Z95.2 Presence of prosthetic heart valve; I25.2 Old myocardial infarction
CPT/HCPCS: 36415; 80048; 85025; 85610; 85730; 93454; 99152; 99153; J7040; Q9967; C1769; C1894

== ENCOUNTER → 2023-12-19 | Outpatient (CLI) | payer MEDICARE, SELFPAY ==
[2023-12-19 10:37] LABS: Anion Gap 9 (5-15); BUN 34 mg/dL (7-18); BUN/Creat Ratio 17.9 RATIO (10-20); Calcium,Total 9.8 mg/dL (8.5-10.1); Chloride 103 mmol/L (98-107); EST Glomerular Filtration Rate 27 mL/min (>60); Est Glom Filt Rate - Afr Amer 33 mL/min (>60); Glucose 119 mg/dL (74-106); Potassium 3.8 mmol/L (3.5-5.1); Sodium Level 138 mmol/L (136-145)
== END | disposition home or self-care (01) ==
LOC: LAB 08:24
PROVIDERS: PCP Family Medicine Geriatric Medicine; Referring Provider Nurse Practitioner Adult Health; Visit Provider Nurse Practitioner Adult Health
DX: I35.0 Nonrheumatic aortic (valve) stenosis (principal)
CPT/HCPCS: 36415; 80048

== ENCOUNTER 2024-01-05 17:04 | Inpatient (IN) | payer MEDICARE, SELFPAY ==
[2024-01-05] VITALS (29 sets, daily range): BP systolic 147–206; BP diastolic 61–177; PULSE 46–78; RESP 10–25; TEMP 35.5–36.9; O2SAT 91–100; BMI 44.1; BMI 43.7
--- NOTE | 2024-01-05 18:00 | EX.ED.DYSGE1 ---
HPI History of Present Illness Chief Complaint: Fall Informant: patient and EMS Onset/Context/Timing Onset: Today Context: Sudden Onset Timing: Continuous Worsened by: Nothing Relieved by: Nothing Narrative Narrative: Patient presents after 2 falls that occurred today. states that the patient has been somewhat confused after the falls. Patient only answers yes no questions. Patient denies difficulty speaking. EMS reports that the patient was slow to respond to questions. The patient had a recent valve replacement surgery 1 week ago. Patient states that this did go through her groin. Patient denies any chest pain. Patient denies any shortness of breath. Patient denies any headaches. [facility] Medical History Osteoarthritis Chronic diastolic (congestive) heart failure Vitamin D deficiency Hyperlipidemia GERD (gastroesophageal reflux disease) Chronic kidney disease, stage 3a Hypokalemia Morbid obesity Severe aortic stenosis LVH (left ventricular hypertrophy) HFrEF (heart failure with reduced ejection fraction) ALONSO (dyspnea on exertion) Actinic keratosis History of skin cancer Pneumonia Gout Cataracts, bilateral Arthritis Encounter for preprocedural cardiovascular examination New onset atrial fibrillation (~08/2017) Hx of aortic valve stenosis Legionella pneumonia Pancreatitis Hypertension Gastric ulcer Home Medications ?Medication ?Instructions ?Recorded ?Last Taken ?Type metoprolol tartrate 25 mg tablet 12.5 mg PO BID BLOOD PRESSURE 07/10/17 12/26/17 06:00 History apixaban 5 mg tablet (Eliquis) 5 mg PO BID BLOOD THINNER 12/11/17 11/30/23 History febuxostat 40 mg tablet 40 mg PO DAILY 02/02/21 Unknown History pantoprazole 40 mg tablet,delayed 40 mg PO DAILY 02/02/21 Unknown History release dapagliflozin propanediol 10 mg 10 mg PO DAILY #90 tabs 11/08/23 Unknown Rx tablet (Farxiga) spironolactone 25 mg tablet 25 mg PO DAILY #90 tabs 11/08/23 Unknown Rx furosemide 40 mg tablet (Lasix) 40 mg PO DAILY #30 tabs 11/10/23 Unknown Rx Allergy/AdvReac Type Severity Reaction Status Date / Time Iodinated Contrast Media Allergy Intermediate Hives Verified 01/05/24 18:54 STANLEY Inhibitors AdvReac Intermediate Other Verified 11/08/23 09:28 dapagliflozin (From Farxiga) AdvReac Intermediate cough Verified 11/08/23 09:28 sacubitril (From Entresto) AdvReac Intermediate cough Verified 11/08/23 09:28 valsartan (From Entresto) AdvReac Intermediate cough Verified 11/08/23 09:28 lisinopril AdvReac COUGH Verified 11/08/23 09:28 Family History Father negative for CAD suspected ASD or VSD Mother Acute kidney failure Other Arthritis Hypertension Skin cancer Surgical History History of cataract removal with insertion of prosthetic lens History of aortic valve replacement History of appendectomy History of hysterectomy History of right and left heart catheterization History of left heart catheterization H/O right heart catheterization Social History Smoking Status: Never smoker alcohol intake: never substance use type: does not use additional social history: Does Not Take Aspirin Does Not Take Ibuprofen ROS ROS ED Review of Systems ROS Unobtainable: due to mental status EXAM Physical Exam Const Vital Signs: 01/05/24 17:05 01/05/24 17:09 01/05/24 17:15 Temperature 98.1 F Temperature Source Oral Pulse Rate 49 L 54 L 46 L Pulse Rate [Lying] Pulse Rate [Sitting (for 1 minute prior to obtaining)] Respiratory Rate 18 10 L 15 Respiratory Effort Respiratory Depth Respiratory Pattern Blood Pressure 155/70 H 149/61 H Blood Pressure [Lying] Blood Pressure [Sitting (for 1 minute prior to obtaining)] Blood Pressure Mean 98 86 Blood Pressure Mean [Lying] Blood Pressure Mean [Sitting (for 1 minute prior to obtaining)] Pulse Ox 96 96 92 Oxygen Delivery Method Room Air 01/05/24 17:30 01/05/24 17:45 01/05/24 18:00 Temperature Temperature Source Pulse Rate 52 L 49 L Pulse Rate [Lying] Pulse Rate [Sitting (for 1 minute prior to obtaining)] Respiratory Rate 18 19 H Respiratory Effort Respiratory Depth Respiratory Pattern Blood Pressure 149/83 H 162/76 H 166/95 H Blood Pressure [Lying] Blood Pressure [Sitting (for 1 minute prior to obtaining)] Blood Pressure Mean 102 101 113 Blood Pressure Mean [Lying] Blood Pressure Mean [Sitting (for 1 minute prior to obtaining)] Pulse Ox 91 95 Oxygen Delivery Method 01/05/24 18:04 01/05/24 18:04 01/05/24 18:15 Temperature Temperature Source Pulse Rate 48 L 49 L Pulse Rate [Lying] Pulse Rate [Sitting (for 1 minute prior to obtaining)] Respiratory Rate 14 16 Respiratory Effort Normal Non-Labored Respiratory Depth Normal Respiratory Pattern Normal Blood Pressure 150/73 H 185/91 H Blood Pressure [Lying] Blood Pressure [Sitting (for 1 minute prior to obtaining)] Blood Pressure Mean 98 107 Blood Pressure Mean [Lying] Blood Pressure Mean [Sitting (for 1 minute prior to obtaining)] Pulse Ox 97 Oxygen Delivery Method Room Air 01/05/24 18:19 01/05/24 18:30 01/05/24 18:45 Temperature Temperature Source Pulse Rate 52 L 55 L 51 L Pulse Rate [Lying] Pulse Rate [Sitting (for 1 minute prior to obtaining)] Respiratory Rate 16 18 19 H Respiratory Effort Respiratory Depth Respiratory Pattern Blood Pressure 168/74 H 150/73 H 169/74 H Blood Pressure [Lying] Blood Pressure [Sitting (for 1 minute prior to obtaining)] Blood Pressure Mean 98 83 100 Blood Pressure Mean [Lying] Blood Pressure Mean [Sitting (for 1 minute prior to obtaining)] Pulse Ox Oxygen Delivery Method 01/05/24 19:00 01/05/24 19:00 01/05/24 19:15 Temperature Temperature Source Pulse Rate 59 L 47 L 64 Pulse Rate [Lying] Pulse Rate [Sitting (for 1 minute prior to obtaining)] Respiratory Rate 13 16 22 H Respiratory Effort Respiratory Depth Respiratory Pattern Blood Pressure 179/103 H 173/79 H 179/103 H Blood Pressure [Lying] Blood Pressure [Sitting (for 1 minute prior to obtaining)] Blood Pressure Mean 128 103 124 Blood Pressure Mean [Lying] Blood Pressure Mean [Sitting (for 1 minute prior to obtaining)] Pulse Ox 92 100 99 Oxygen Delivery Method Room Air 01/05/24 19:30 01/05/24 19:32 01/05/24 19:35 Temperature Temperature Source Pulse Rate 76 70 Pulse Rate [Lying] 70 Pulse Rate [Sitting (for 1 minute prior to obtaining)] 65 Respiratory Rate 16 21 H Respiratory Effort Respiratory Depth Respiratory Pattern Blood Pressure 206/177 H 193/75 H Blood Pressure [Lying] 193/75 H Blood Pressure [Sitting (for 1 minute prior to obtaining)] 169/97 H Blood Pressure Mean 188 104 Blood Pressure Mean [Lying] 114 Blood Pressure Mean [Sitting (for 1 minute prior to obtaining)] 121 Pulse Ox 96 Oxygen Delivery Method 01/05/24 19:40 01/05/24 19:45 01/05/24 20:00 Temperature Temperature Source Pulse Rate 66 56 L Pulse Rate [Lying] Pulse Rate [Sitting (for 1 minute prior to obtaining)] Respiratory Rate 13 13 Respiratory Effort Respiratory Depth Respiratory Pattern Blood Pressure 169/97 H 154/73 H Blood Pressure [Lying] Blood Pressure [Sitting (for 1 minute prior to obtaining)] Blood Pressure Mean 116 97 Blood Pressure Mean [Lying] Blood Pressure Mean [Sitting (for 1 minute prior to obtaining)] Pulse Ox Oxygen Delivery Method 01/05/24 20:00 01/05/24 20:18 01/05/24 20:30 Temperature Temperature Source Pulse Rate 70 69 Pulse Rate [Lying] Pulse Rate [Sitting (for 1 minute prior to obtaining)] Respiratory Rate 13 18 Respiratory Effort Respiratory Depth Respiratory Pattern Blood Pressure 154/73 H Blood Pressure [Lying] Blood Pressure [Sitting (for 1 minute prior to obtaining)] Blood Pressure Mean 97 Blood Pressure Mean [Lying] Blood Pressure Mean [Sitting (for 1 minute prior to obtaining)] Pulse Ox 97 Oxygen Delivery Method 01/05/24 20:45 01/05/24 21:00 Temperature Temperature Source Pulse Rate 69 71 Pulse Rate [Lying] Pulse Rate [Sitting (for 1 minute prior to obtaining)] Respiratory Rate 18 25 H Respiratory Effort Respiratory Depth Respiratory Pattern Blood Pressure 162/75 H Blood Pressure [Lying] Blood Pressure [Sitting (for 1 minute prior to obtaining)] Blood Pressure Mean 98 Blood Pressure Mean [Lying] Blood Pressure Mean [Sitting (for 1 minute prior to obtaining)] Pulse Ox 96 97 Oxygen Delivery Method Positive well nourished and well developed General Appearance ED: well developed and NAD HEENT Reports moist mucous membranes Neck supple and no JVD Resp normal respiratory effort and clear to auscultation bilaterally Cardio Rate: bradycardia Rhythm: abnormal rhythm irregularly irregular GI non-tender and non-distended Palpation: soft Extremity General Extremety ED: Negative for edema or tenderness General Extremity: Negative for edema Neuro CN's II-XII intact bilaterally and no sensory deficits noted Neuro Narrative: Patient only answering yes/no questions. Sensorium / Orientation: alert Motor Exam: strength 5/5 throughout MDM MDM MDM Narrative Medical decision making narrative: Differential diagnosis includes intracranial bleeding, stroke, electrolyte abnormality, pneumonia, congestive heart failure, and cardiac dysrhythmia, cardiac ischemia. CT scan of the brain will be obtained to assess for intracranial bleeding and stroke. EKG will be obtained to assess for cardiac dysrhythmia and cardiac ischemia. CBC will be obtained to assess for leukocytosis and anemia. Basic metabolic profile will be obtained to assess for electrolyte abnormality and renal function. High-sensitivity troponin will be obtained to assess for cardiac ischemia. 2-hour repeat high-sensitivity troponin will be obtained to assess for ongoing cardiac ischemia. CTA of the head and neck will be obtained to assess for for carotid stenosis and large vessel occlusion. Urinalysis will be obtained to assess for urinary tract infection and hematuria. Lab Data Attestation: I reviewed the patient's lab results. Lab results narrative: CBC was reviewed and was within normal limits. Basic metabolic profile was reviewed. BUN was 34 and creatinine was 1.48. This is consistent with previous results. The remainder was essentially within normal limits. High-sensitivity troponin was reviewed and was normal at 24. PT with INR and PTT were reviewed. Pro time was 18.9 and INR is 1.6. PTT was normal at 27. Urinalysis was reviewed. There is no evidence of urinary tract infection or hematuria. COVID-19 PCR was reviewed and was negative. Influenza PCR was reviewed and was negative for influenza A and influenza B. RSV PCR was reviewed and was negative. Labs: Laboratory Results - last 24 hr 01/05/24 01/05/24 18:20 19:50 WBC 8.8 RBC 4.68 Hgb 15.2 H Hct 45.6 MCV 97.4 MCH 32.5 H MCHC 33.3 RDW Std Deviation 48.6 H RDW Coeff of [place] 13.3 Plt Count 187 MPV 12.2 H Immature Gran % (Auto) 0.800 Neut % (Auto) 76.2 H Lymph % (Auto) 13.6 L [place] % (Auto) 8.4 Eos % (Auto) 0.2 Baso % (Auto) 0.8 Absolute Neuts (auto) 6.7 Absolute Lymphs (auto) 1.20 Nucleated RBC % 0 PT 18.9 H INR 1.6 APTT 27.0 Sodium 139 Potassium 4.1 Chloride 104 Carbon Dioxide 28.0 Anion Gap 7 BUN 34 H Creatinine 1.48 H Estim Creat Clear Calc 33.57 Est GFR (MDRD) Af Amer 43 L Est GFR (MDRD) Non-Af 36 L BUN/Creatinine Ratio 23.0 H Glucose 128 H Lactic Acid 1.8 Calcium 9.4 Troponin I High Sens 24 Urine Color Yellow Urine Clarity Clear Urine pH 6.5 Ur Specific [place] 1.015 Urine Protein 15 H Urine Glucose (UA) 1000 H Urine Ketones Negative Urine Occult Blood Negative Urine Nitrite Negative Urine Bilirubin Negative Urine Urobilinogen 4 H Ur Leukocyte Esterase Negative Urine RBC 0-5 SEEN Urine WBC 0-5 SEEN Ur Squamous Epith Cells 0-5 SEEN Urine Bacteria 0 SEEN Hyaline Casts 0-5 SEEN Urine Mucus 0 SEEN Radiography Chest X-Ray - ED: 1 View, Read by ED Physician and Read by Radiologist Diagnostic Testing: Clinical Impression(s) from Imaging Studies Chest X-Ray 01/05/24 18:06 IMPRESSION: Incomplete expansion of the lungs. Patchy bilateral pulmonary opacities suggestive of pulmonary edema. Cannot exclude multifocal pneumonia. Electronically Signed: Ankush Sosa MD at 20:34 EDT , Head/Neck CTA 01/05/24 18:06 IMPRESSION: Severe calcific plaquing of the right carotid bulb creating greater than 70% stenosis. Occluded left common carotid just distal to the origin with reconstitution at the level of the cavernous carotid in the brain Electronically Signed: Benito Chan MD at 20:58 EDT , Portable 1 view chest x-ray was obtained. On my independent interpretation, lung alford show patchy bilateral pulmonary opacities suggestive of edema or multifocal pneumonia. There is incomplete expansion of the lungs. There is normal cardiac silhouette. Bony thorax is normal. Radiologist also interpreted the x-ray and agrees. CTA of the head and neck was obtained. There is no acute infarct noted. There is no acute bleeding noted. There is severe carotid stenosis on the right at 70%. There is left common carotid stenosis just distal to the origin that is occluded. There is collateral circulation at the level of the cavernous carotid sinus. This was interpreted by the radiologist and was also independently reviewed by myself. EKG Initial EKG: Attestation: I personally reviewed and interpreted this EKG as follows: Interpretation: Atrial Fibrillation (50) Comments: EKG was obtained. On my independent interpretation it shows atrial fibrillation with a rate of 50. QRS interval was slightly prolonged at 162 ms. QTc interval was normal at 430 ms. There is borderline left axis deviation at -25. There are occasional PVCs. There is a left bundle branch block pattern. There are no acute ST or T wave changes noted. Treatment and Re-Evaluation :: Patient and son were advised of the findings. Patient and son were advised of the need for admission to the hospital. They are agreeable with this. Case was discussed with the hospitalist. She will admit the patient to her service for further stroke workup. Patient and son understood and were agreeable with the plan. All questions were answered. Discharge Plan Triage Chief Complaint: Fall ED Provider: James Hodges Dx/Rx/DC Orders Clinical Impression: Altered mental status, Atrial fibrillation, Carotid artery stenosis Prescriptions: No Action metoprolol tartrate 25 mg tablet 12.5 mg PO BID febuxostat 40 mg tablet 40 mg PO DAILY pantoprazole 40 mg tablet,delayed release (DR/EC) 40 mg PO DAILY dapagliflozin propanediol [Farxiga] 10 mg tablet 10 mg PO DAILY Qty: 90 3RF Eliquis 5 MG tablet 5 mg PO BID spironolactone 25 mg tablet 25 mg PO DAILY Qty: 90 3RF furosemide [Lasix] 40 mg tablet 40 mg PO DAILY Qty: 30 11RF Primary Care Provider: Scott Hull Chi Referrals: Scott Hull Chi, MD [Primary Care Provider] - Print Language: Faroese Disposition Disposition: Acute Care Hospital [facility]
--- NOTE | 2024-01-05 18:06 | CT_ITS ---
We are attempting to reach an attending provider to discuss findings. An addendum with communication details will be sent when the communication is complete. STUDY: CTA HEAD AND NECK WITH CONTRAST REASON FOR EXAM: Female, 83 years old. Aphasia RADIATION DOSAGE (If Supplied By Facility): CTDIvol = ( 31.44 ) mGy, DLP = ( 1461.46 ) mGycm TECHNIQUE: CT angiography was performed with a multi-detector CT scanner. Data acquisition was obtained from the skull base through the vertex following intravenous administration of IV 100mL [id number]-[id number]. MIP images were reconstructed from the axial data set. Post-processing of the angiographic images was performed, with multiplanar reformation and 3D reconstruction. Individualized dose optimization techniques were used for this CT. COMPARISON: No relevant priors. FINDINGS: Normal right petrous carotid. Occluded left petrous. Calcific plaquing of the right cavernous carotid artery with a normal supraclinoid bifurcation. Calcific plaquing of the left cavernous carotid artery with a normal supraclinoid bifurcation. Normal right A1 segments of the anterior cerebral artery. Normal left A1 segments of the anterior cerebral artery. Normal intact anterior communicating artery (ACOM). Normal bilateral A2 segments of the anterior cerebral arteries. Normal right M1 and M2 segments of the middle cerebral arteries, with a normal M1 bifurcation. Normal left M1 and M2 segments of the middle cerebral arteries, with a normal M1 bifurcation. Normal right posterior communicating artery (PCOM). [Left posterior communicating artery not visualized consistent with normal variant Mild calcific plaquing of the distal vertebral arteries. Normal basilar artery with a normal basilar bifurcation. The visualized bilateral superior cerebellar (SCA) arteries are normal. Normal bilateral P1, P2 and visualized P3 segments of the posterior cerebral arteries. There is no demonstrated aneurysm of the [place] of [place]. There is no demonstrated abnormality of the visualized brain. AORTIC ARCH: Normal visualized aortic arch. Normal origins of the brachiocephalic, left common carotid, and left subclavian arteries. RIGHT CAROTID ARTERIES: Normal right common carotid artery (CCA). Severe calcific plaquing of the right common carotid bulb creating greater than 70% stenosis. Normal origin of the right internal carotid (ICA) artery without a hemodynamically significant stenosis. Normal visualized cervical portion of the right internal carotid artery. Normal origin of the right external carotid artery (ECA). LEFT CAROTID ARTERIES: Occlusion of the proximal left common carotid artery (CCA just distal to the origin). Densely calcified occluded carotid bulb Occluded origin of the left internal carotid (ICA) artery without a hemodynamically significant stenosis. Occluded visualized cervical portion of the left internal carotid artery. Normal origin of the left external carotid artery (ECA). VERTEBRAL ARTERIES: Mild calcific plaquing of the distal bilateral vertebral arteries. CT/CTA Head AND Neck W/ Contrast IMPRESSION: Severe calcific plaquing of the right carotid bulb creating greater than 70% stenosis. Occluded left common carotid just distal to the origin with reconstitution at the level of the cavernous carotid in the brain Electronically Signed: Benito Chan MD at 20:58 EDT ,
--- NOTE | 2024-01-05 18:06 | RAD_ITS ---
STUDY: X-RAY CHEST REASON FOR EXAM: Female, 83 years old. Fall TECHNIQUE: Single AP portable view of the chest. COMPARISON: 11/08/2023. FINDINGS: Exam limited by patient size. Low to moderate lung volumes. Bilateral diffuse patchy pulmonary opacities. Findings are most suggestive of pulmonary edema. Multifocal pneumonia is not excluded. Cannot exclude small effusions. There is moderate cardiac enlargement. Previous CABG. Aortic stent graft in grossly satisfactory position. Normal mediastinum and brandi. Normal visualized pulmonary arteries. There is atherosclerotic calcification of the aortic arch with tortuosity. Normal visualized thoracic spine. Normal visualized ribs, clavicles, and shoulders. There is no demonstrated abnormality of the visualized soft tissue structures of the upper abdomen. RAD/Chest 1 View (Portable) IMPRESSION: Incomplete expansion of the lungs. Patchy bilateral pulmonary opacities suggestive of pulmonary edema. Cannot exclude multifocal pneumonia. Electronically Signed: Ankush Sosa MD at 20:34 EDT ,
--- NOTE | 2024-01-05 18:07 | EKG12_ITS ---
Test Reason : Blood Pressure : / mmHG Vent. Rate : 050 BPM Atrial Rate : 000 BPM P-R Int : 000 ms QRS Dur : 162 ms QT Int : 472 ms P-R-T Axes : 000 -25 168 degrees QTc Int : 430 ms Atrial fibrillation with slow ventricular response with premature ventricular or aberrantly conducted complexes Left bundle branch block Abnormal ECG Confirmed by Sukh Madsen ([id number]), editor department JOSE LUIS FUENTES ([id number]) on 01/08/2024 11:58:07 AM Referred By: LARRY/YENNY Confirmed By:Sukh Madsen
[2024-01-05 18:37] LABS: Absolute Neutrophil Count 6.7 X10^3/uL (2.0-7.7); Basophil# 0.07 X10^3/uL; Basophil% 0.8 % (0-1); Eosinophil# 0.02 X10^3/uL; Eosinophils% 0.2 % (0-5); Hematocrit 45.6 % (37-47); Hemoglobin 15.2 g/dL (12.0-15.0); Lymphocyte % 13.6 % (19-41); Mean Corp Hgb Conc 33.3 g/dL (32-36); Mean Corpuscular Hgb 32.5 pg (27.0-32.0); Mean Corpuscular Volume 97.4 fL (81-99); Mean Platelet Vol. 12.2 fl (6.2-12.0); Monocyte# 0.74 X10^3/uL; Monocyte% 8.4 % (0-10); NRBC Flagged by Analyzer 0 % (0-5); Neutrophil # 6.74 X10^3/uL (2.7-7.7); Neutrophil % 76.2 % (47-70); Platelet Count 187 K/mm3 (150-450); RBC Distribution Width CV 13.3 % (11.6-14.6); RBC Distribution Width SD 48.6 fl (35.1-43.9); Red Blood Count 4.68 M/mm3 (4.2-5.4); White Blood Count 8.8 K/mm3 (4.4-11.0)
--- OUTSIDE RECORDS SUMMARY | 2024-01-05 18:37 | XMS RPT_ITS | CCD ---
Author Organization [facility] Care Team Providers Care Corrugated Box Machine Operator Name Role Phone Paige Singer Unavailable Paige Singer Unavailable Paige Singer N Unavailable Yari Hernandez RN Unavailable Unavailable Yari Hernandez RN Unavailable Unavailable Paige Singer Unavailable Shelly Ahuja Unavailable Unavailable SISI Gutierrez, Mónica Wells Unavailable Yari Hernandez RN Unavailable Unavailable Kurtis GUNN[facility] [phone] KURTIS, SCOTT-CHI Primary Care Unavailable HARJEET HUFFMAN Attending Unavailable HARJEET HUFFMAN Referring Unavailable ARLENE HIGGINS Attending Unavailable KURTIS, SCOTT-CHI Primary Care Unavailable ARLENE HIGGINS Referring Unavailable KURTIS, SCOTT-CHI Primary Care Unavailable HARJEET HUFFMAN Admitting Unavailable HARJEET HUFFMAN Attending Unavailable KURTIS, SCOTT-CHI Primary Care Unavailable JUAN REED Attending Unavailable KURTIS, SCOTT-CHI Primary Care Unavailable THADDEUS STODDARD Attending Unavailable KURTIS, SCOTT-CHI Primary Care Unavailable HARJEET HUFFMAN Attending Unavailable Allergies Allergy Classification Reported Allergen(s) Allergy Type Date of Onset Reaction(s) Facility (20 sources) Angiotensin Converting Enzyme (Varun) Inhibitors drug allergy 6 Other [facility] Work Phone: (11 sources) Lisinopril Propensity to adverse reactions 4 [facility] (11 sources) sacubitril Drug Allergy 4 [facility] (11 sources) Vals[facility] Propensity to adverse reactions [facility] Iodinated Contrast Media Propensity to adverse reactions 4 [facility] Medications Current Medications Medication Drug Class(es) Dates Sig (Normalized) Sig (Original) apixaban 5 mg oral tablet (13 sources) Factor Xa Inhibitor Start: 12-26-2023 End: 12-26-2023 apixaban (Eliquis) 5 MG tablet Take 1 tablet (5 mg) by mouth 2 times daily. Resum12/25 evening dose 12/26/2023 Active 2 ml furosemide 10 mg/ml injection (15 sources) Loop Diuretic Start: 12-26-2023 40 mg, IntraVENous, Once, On Mon12/26/23 at 0845, For 1 dose Start: 11-08-2023 End: 12-26-2023 Completed/Discontinued Medications Medication Drug Class(es) Dates Sig (Normalized) Sig (Original) acetaminophen 325 mg oral tablet (2 sources) Start: 12-25-19 End: 12-26-19 take 1 tablet by mouth every four hours as needed for pain aspirin 81 mg delayed release oral tablet (4 sources) Platelet Aggregation Inhibitor, Nonsteroidal Anti-inflammatory Drug Start: 12-26-19 End: 12-26-19 take 81 mg by mouth once daily 81 mg, Oral, Daily, First dose on Mon12/26/23 at 0900, Do not crush, chew, or split. celecoxib 200 mg oral capsule (15 sources) Nonsteroidal Anti-inflammatory Drug Start: 11-06-19 End: 12-30-19 take 1 tablet by mouth once daily CELEBREX 200 MG CAPS One tablet by mouth daily CELECOXIB [id number] Mónica Gutierrez PA-C dapagliflozin 10 mg oral tablet (13 sources) Sodium-Glucose Cotransporter 2 Inhibitor Start: 11-08-19 End: 12-26-19 take 10 mg by mouth once daily 10 mg, Oral, Daily, First dose on Mon12/26/23 at 0900, Indications: Chronic Renal Disease diphenhydrAMINE hydrochloride 25 mg oral tablet (2 sources) Histamine-1 Receptor Antagonist Start: 12-25-19 End: 12-25-19 take 50 mg by mouth once 50 mg, Oral, Once, On Mon12/25/23 at 0730, For 1 dose, Preprocedure famotidine 20 mg oral tablet (2 sources) Histamine-2 Receptor Antagonist Start: 12-25-19 End: 12-25-19 take 1 dose by mouth every hour 40 mg, Oral, Once, On Mon12/25/23 at 0730, For 1 dose, Preprocedure, One hour prior to procedure famotidine (Pepcid) 20 mg in sodium chloride (PF) 0.9 % 10 mL injection (1 source) Start: 12-12-19 End: 12-12-19 20 mg, IntraVENous, Administer over 2 Minutes, Once, On Mon12/12/23 at 1115, For 1 dose, IV Push over minimum of 2 minutes - Dilute with 10 mL NS febuxostat 40 mg oral tablet (13 sources) Xanthine Oxidase Inhibitor Start: 12-25-19 End: 12-26-19 take 40 mg by mouth once daily 40 mg, Oral, Daily, First dose on Mon12/25/23 at 1130 hydroCHLOROthiazide 25 mg oral tablet (3 sources) Thiazide Diuretic End: 11-21-19 take 1 tablet by mouth once daily hydroCHLOROthiazide (HYDRODiuril) 25 MG tablet Take 25 mg by mouth daily. 11/21/2023 Discontinued (Entered in error) hydrocortisone 100 mg injection (3 sources) Corticosteroid Start: 12-12-19 End: 12-12-19 100 mg, IntraVENous, Once, On Mon12/12/23 at 1245, For 1 dose Start: 12-12-2023 End: 12-12-2023 100 mg, IntraVENous, Once, O n Mon12/12/23 at 1115, For 1 dose Start: 12-12-2023 End: 12-12-2023 Starting on Mon12/12/23 at 1 110, For 1 dose, Cheri Wong: crow override iopamidol (Isovue-370) 76 % injection 100 mL (2 sources) Start: 12-12-2023 End: 12-12-2023 take 100 mL intravenously once as needed 100 mL, IntraVENous, IMG once PRN, contrast, Starting on Mon12/12/23 at 1039, For 1 dose losartan potassium 25 mg oral tablet (9 sources) Angiotensin 2 Receptor Wendy Start: 11-06-2015 take 1 tablet by mouth once daily COZAAR 25 MG TABS One tablet by mouth daily LOSARTAN POTASSIUM [id number] Rhonda Skinner RN metoprolol tartrate 25 mg oral tablet (13 sources) beta-Adrenergic Wendy Start: 12-25-2023 End: 12-26-2023 metoprolol tartr ate (Lopressor) 25 MG tablet Take 12.5 mg by mouth 2 times daily. Active mupirocin 0.02 mg/mg topical ointment (2 sources) RNA Synthetase Inhibitor Antibacterial Start: 12-25-2023 End: 12-26-2023 1 Application, Nasal, 2 times daily, First dose on Mon12/25/23 at 1130, For 5 days, Recovery & On Unit, Indications: MRSA Nasal Decolonization pantoprazole 40 mg delayed release oral tablet (20 sources) Proton Pump Inhibitor Start: 12-26-2023 End: 12-26-2023 take 40 mg by mouth once daily before breakfast 40 mg, Oral, Daily before breakfast, First dose on Mon12/26/23 at 0600, Do not crush, chew, or split. Start: 11-06-2015 End: 11-10-2015 take 1 tablet by mouth twice daily PROTONIX 40 MG SOLR One tablet by mouth twice daily PANTOPRAZOLE SODIUM [id number] Gerald Barragan MD perflutren protein A microsphere (Optison) 3 mL in sodium chloride (PF) 0.9 % 10 mL IV syringe (2 sources) Start: 12-25-2023 End: 12-26-2023 0-10 mL, IntraVENous, IMG once PRN, other, Suboptimal echo image, Starting on Mon12/25/23 at 1119, For 1 dose, CV Procedural Medications, Administer via slow IVP for suboptimal echocardiogram enhancement. May administer as divided doses to reach optimal image enhancement potassium chloride 20 meq extended release oral tablet (3 sources) End: 11-21-2023 take 1 tablet by mouth once daily potassium chloride CR (K-Tab) 20 MEQ ER tablet Take 20 mEq by mouth daily. Do not crush, chew, or split. 11/21/2023 Discontinued (Entered in error) predniSONE (6 sources) Start: 12-25-2023 End: 12-25-2023 take 1 dose by mouth every hour 60 mg, Oral, Once, On Mon12/25/23 at 0730, For 1 dose, Preprocedure, One hour prior to procedure Start: 12-24-2023 End: 12-26-2023 predniSONE (Deltasone) 20 MG tablet Indications: Nonrheumatic aortic valve stenosis Take 3 tablets by mouth 13 hours and 7 hours prior to Heart Valve Procedure. Do not start before December 24, 2023. 6 tablet 12/24/2023 12/26/2023 Discontinued (Stop taking at discharge) Start: 12-24-2023 predniSONE (De ltasone) 20 MG tablet Indications: Nonrheumatic aortic valve stenosis Take 3 tablets by mouth 13 hours and 7 hours prior to Heart Valve Procedure. Do not start before December 24, 2023. 6 tablet 12/24/2023 Active 1000 ml sodium chloride 9 mg/ml injection (4 sources) Start: 12-25-2023 End: 12-25-2023 take 50 mL intravenously every hour 50 mL/hr, IntraVENous, Continuous, Starting on Mon12/25/23 at 0730, Preprocedure, Upon admission to sameday - please start iv if patient does not have iv access. Start: 12-12-2023 End: 12-12-2023 500 mL, IntraVENous, at 100 mL/hr, Administer over 5 Hours, Once, On Mon12/12/23 at 0730, For 1 dose spironolactone 25 mg oral tablet (13 sources) Aldosterone Antagonist Start: 12-26-2023 End: 12-26-2023 take 25 mg by mouth once daily 25 mg, Oral, Daily, First dose on Mon12/26/23 at 0900 Problems Active Problems Problem Classification Problem Date Documented Date Episodic/Chronic Acute and unspecified renal failure (11 sources) Renal failure syndrome; Translations: [Unspecified kidney failure] Onset: 12-07-2023 12-07-2023 Chronic Cardiac dysrhythmias (13 sources) Chronic atrial fibrillation; Translations: [Chronic atrial fibrillation, unspecified] Onset: 11-21-2023 11-21-2023 Chronic Cardiac dysrhythmias (14 sources) Drug-induced bradycardia; Translations: [Bradycardia, unspecified] Onset: 11-21-2023 11-21-2023 Episodic Complication of device; implant or graft (16 sources) Prosthetic aortic valve stenosis; Translations: [Stenosis of other cardiac prosthetic devices, implants and grafts, initial encounter] Onset: 11-16-2023 11-16-2023 Episodic E Codes: Adverse effects of medical drugs (11 sources) Contrast media adverse reaction; Translations: [Adverse effect of diagnostic agents, initial encounter] Onset: 11-21-2023 12-12-2023 Episodic Essential hypertension (9 sources) Hypertensive disorder; Translations: [Essential (primary) hypertension] Onset: 11-06-2015 11-06-2015 Chronic Heart valve disorders (20 sources) Nonrheumatic aortic (valve) stenosis; Translations: [Aortic stenosis, non-rheumatic ] Onset: 11-06-2015 11-06-2015 Chronic Osteoarthritis (9 sources) Osteoarthritis of knee; Translations: [Bilateral primary osteoarthritis of knee] Onset: 04-07-2016 04-14-2016 Chronic Other aftercare (12 sources) Polypharmacy ; Translations: [Other long term care phlebotomist (current) drug therapy] Onset: 11-21-2023 11-21-2023 Episodic Other aftercare (2 sources) Other long term care phlebotomist (current) drug therapy; Translations: [Other long term care phlebotomist (current) drug therapy] Onset: 11-21-2023 Episodic Other and ill-defined heart disease (1 source) Left ventricular cardiac dysfunction; Translations: [Heart disease, unspecified] 12-05-2023 Chronic Other nutritional; endocrine; and metabolic disorders (12 sources) Body mass index (BMI) 38.0-38.9, adult; Translations: [Body mass index (BMI) 40.0-44.9, adult] Onset: 11-06-2015 11-10-2015 Chronic Residual codes; unclassified (12 sources) Poor short-term memory ; Translations: [Other amnesia] Onset: 11-21-2023 11-21-2023 Episodic Residual codes; unclassified (2 sources) Other amnesia; Translations: [Other amnesia] Onset: 11-21-2023 Episodic Unclassified (6 sources) Body mass index (BMI) 40.0-44.9, adult; Translations: [Body mass index (BMI) 40.0-44.9, adult] Onset: 11-06-2015 11-06-2015 Chronic Unclassified (7 sources) Replacement of aortic valve ; Translations: [Presence of prosthetic heart valve] Onset: 11-06-2015 11-06-2015 Unclassified (2 sources) Chronic atrial fibrillation, unspecified; Translations: [Chronic atrial fibrillation, unspecified (HCC)] Onset: 11-21-2023 Unclassified (2 sources) Cardiac Valve Problem; Translations: [Cardiac Valve Problem] Onset: 11-21-2023 Past or Other Problems Problem Classification Problem Date Documented Da te Episodic/Chronic Other lower respiratory disease (6 sources) Dyspnea on exertion; Translations: [Other forms of dyspnea] Onset: 12-29-2016 12-29-2016 Episodic Other non-traumatic joint disorders (9 sources) Knee pain; Translations: [Pain in right knee] Onset: 04-07-2016 04-07-2016 Episodic Unclassified (9 sources) Abnormal findings on diagnostic imaging of heart and coronary circulation; Translations: [Abnormal findings on diagnostic imaging of heart and coronary circulation] Onset: 11-06-2015 11-06-2015 Episodic Results Test Name Value Interpretation Reference Range Facility BASIC METABOLIC PANELon 10-0 Anion gap [Moles/Vol] 7 mmol/L Normal 3-13 [facility] Comment on above: Performed By: #### L [id number] ####Machine Cloth Examiner: AIDE RUEDA ([id number])[address] Calcium [Mass/Vol] 9.1 mg/dL Normal 8.4-10.4 [facility] Comment on above: Performed By: #### L AB15 ####Machine Cloth Examiner: AIDE RUEDA ([id number])[facility])[address] [place] [address] Chloride [Moles/Vol] 108 mmol/L High 98-107 [facility] Comment on above: Performed By: #### L AB15 ####Machine Cloth Examiner: AIDE RUEDA ([id number])[facility])[address] [place] [address] CO2 [Moles/Vol] 19 mmol/L Low 22-30 [facility] Comment on above: Performed By: #### L AB15 ####Machine Cloth Examiner: AIDE RUEDA ([id number])[facility])[address] [place] [address] Creatinine [Mass/Vol] 1.17 mg/dL High 0.52-1.04 [facility] Comment on above: Performed By: #### L AB15 ####Machine Cloth Examiner: AIDE RUEDA ([id number])[facility])[address] [place] [address] [place] GLOMERULAR FILTRATION RATE ML/MIN/1.73 SQ M.PREDICTED 46.4 mL/min/1.73m*2 Low >60.0 [facility] Comment on above: Result Comment: Calc ulation based on the Chronic Kidney Disease Epidemiology Collaboration (CKD-EPI) equation refit without adjustment for race Performed By: #### L AB15 ####Machine Cloth Examiner: AIDE RUEDA ([id number])[facility])[address] [place] [address] Glucose [Mass/Vol] 121 mg/dL High 70-100 [facility] Comment on above: Performed By: #### L AB15 ####Machine Cloth Examiner: AIDE RUEDA ([id number])[facility])[address] [place] [address] Potassium [Moles/Vol] 4.4 mmol/L Normal 3.5-5.1 [facility] Comment on above: Performed By: #### L AB15 ####Machine Cloth Examiner: AIDE RUEDA ([id number])[facility])[address] [place] [address] Sodium [Moles/Vol] 134 mmol/L Low 135-145 [facility] Comment on above: Performed By: #### L AB15 ####Machine Cloth Examiner: AIDE RUEDA ([id number])[facility])[address] [place] [address] Urea nitrogen [Mass/Vol] 31 mg/dL High 7-17 [facility] Comment on above: Performed By: #### L AB15 ####Machine Cloth Examiner: AIDE RUEDA ([id number])[facility] [place] [address] Basic metabolic 1998 panelon 12-26-2023 Anion gap [Moles/Vol] 7 mmol/L 3 - 13 mmol/L [facility] Calcium [Mass/Vol] 9.1 mg/dL 8.4 - 10. 4 mg/dL [facility] Chloride [Moles/Vol] 108 mmol/L High 98 - 10 7 mmol/L [facility] CO2 [Moles/Vol] 19 mmol/L Low 22 - 30 mmol/L [facility] Creatinine [Mass/Vol] 1.17 mg/dL High 0.52 - 1.04 mg/dL [facility] GFR/1.73 sq M.predicted (S/P/Bld) [Vol rate/Area] 46.4 mL/min Low - PINF [facility] Comment on above: Calculation based on the Chronic Kidney Disease Epidemiology Collaboration (CKD-EPI) equation refit without adjustment for race Glucose [Mass/Vol] 121 mg/dL High 70 - 100 mg/dL [facility] Interpretation and review of laboratory results Abnormal [facility] Potassium [Moles/Vol] 4.4 mmol/L 3.5 - 5.1 mmol/L [facility] Sodium [Moles/Vol] 134 mmol/L Low 135 - 145 mmol/L [facility] Urea nitrogen [Mass/Vol] 31 mg/dL High 7 - 17 mg/dL [facility] CBC (HEMOGRAM)on 12-26-2023 Erythrocyte distribution width (RBC) [Ratio] 13.3 % Normal 11.5-15.0 [facility] Comment on above: Performed By: #### L [id number] ####Machine Cloth Examiner: AIDE RUEDA ([id number])[facility] ([facility])[address] [place] [address] Hematocrit (Bld) [Volume fraction] 43.0 % Normal 35.0-47.0 [facility] Comment on above: Performed By: #### L AB294 ####Machine Cloth Examiner: AIDE RUEDA ([id number])[facility] [place] [address] Hemoglobin (Bld) [Mass/Vol] 14.0 g/dL Normal 11.7-16.0 [facility] Comment on above: Performed By: #### L AB294 ####Machine Cloth Examiner: AIDE RUEDA ([id number])[facility])[address] [place] [address] MCH (RBC) [Entitic mass] 31.9 pg Normal 26.0-34.0 [facility] Comment on above: Performed By: #### L AB294 ####Machine Cloth Examiner: AIDE RUEDA ([id number])[facility])[address] [place] [address] MCHC 32.6 % Normal 30.5-36.0 [facility] Comment on above: Performed By: #### L AB294 ####Machine Cloth Examiner: AIDE RUEDA ([id number])[facility])[address] [place] [address] MCV (RBC) [Entitic vol] 97.9 fL Normal 77.0-99.0 [facility] Comment on above: Performed By: #### L AB294 ####Machine Cloth Examiner: AIDE RUEDA ([id number])[facility])[address] [place] [address] Platelet mean volume (Bld) [Entitic vol] 12.4 fL Normal 9.0-12.7 [facility] Comment on above: Performed By: #### L AB294 ####Machine Cloth Examiner: AIDE RUEDA ([id number])[facility])[address] [place] [address] Platelets (Bld) [#/Vol] 154 10*3/uL Normal 140-440 [facility] Comment on above: Performed By: #### L AB294 ####Machine Cloth Examiner: AIDE RUEDA ([id number])[facility])[address] [place] [address] RBC (Bld) [#/Vol] 4.39 10*6/uL Normal 3.80-5.20 [facility] Comment on above: Performed By: #### L AB294 ####Machine Cloth Examiner: AIDE RUEDA ([id number])[facility] ([facility])[address] [place] [address] WBC (Bld) [#/Vol] 11.6 10*3/uL High 3.6-10.7 [facility] Comment on above: Performed By: #### L AB294 ####Machine Cloth Examiner: AIDE RUEDA ([id number])[facility] ([facility])[address] [place] [address] CBC panel Auto (Bld)on 12-25 Erythrocyte distribution width (RBC) [Ratio] 13.3 % 11.5 - 15.0 % [facility] Hematocrit (Bld) [Volume fraction] 43.0 % 35.0 - 47.0 % [facility] Hemoglobin (Bld) [Mass/Vol] 14.0 g/dL 11.7 - 16.0 g/dL [facility] Interpretation and review of laboratory results Abnormal [facility] MCH (RBC) [Entitic mass] 31.9 pg 26.0 - 34.0 pg [facility] MCHC (RBC) [Mass/Vol] 32.6 % 30.5 - 36.0 % [facility] MCV (RBC) [Entitic vol] 97.9 fL 77.0 - 99.0 fL [facility] Platelet mean volume (Bld) [Entitic vol] 12.4 fL 9.0 - 12.7 fL [facility] Platelets (Bld) [#/Vol] 154 10*3/uL 140 - 440 10*3/uL [facility] RBC (Bld) [#/Vol] 4.39 10*6/uL 3.80 - 5.2 0 10*6/uL [facility] WBC (Bld) [#/Vol] 11.6 10*3/uL High 3.6 - 10.7 10*3/uL [facility] ECG 12-LEADon 12-26-2023 ECG 12-LEAD IMPRESSION: Atrial fibrillation with slow ventricular rate Repol abnrm suggests ischemia, diffuse leads Electronically Signed On 12-26-2023 16:26:55 EDT by Austin Carmona Normal [facility] No Panel InformationOrdered By: Austin Carmona on 12-26-2023 P [place] 0 degrees [facility] [employer] Work Phone: CT Interval 0 ms [employer] [facility] Work Phone: QRS [place] 48 degrees [employer] [facility] [employer] Work Phone: QRSD Interval 103 ms [employer] [facility] [employer] Work Phone: QT Interval 492 ms [employer] [facility] [employer] Work Phone: QTC Interval 404 ms [employer] [facility] Work Phone: T Wave [place] -74 degrees [employer] [facility] Work Phone: [employer] [facility] [employer] Work Phone: No Panel Informationon 12-25 Atrial fibrillation with slow ventricular rate Repol abnrm suggests ischemia, diffuse leads Electronically Signed On 12-26-2023 16:26:55 EDT by Austin Carmona Austin Kruger MD - 12/26/2023 IMPRESSION: Atrial fibrillation with slow ventricular rate Repol abnrm suggests ischemia, diffuse leads Electronically Signed On 12-26-2023 16:26:55 EDT by Austin Carmona [facility] [employer] P [place] 0 degrees [facility] [employer] CT Interval 0 ms [facility] [employer] QRS [place] 22 degrees [facility] [employer] QRSD Interval 112 ms [facility] [employer] QT Interval 441 ms [facility] [employer] QTC Interval 405 ms [facility] [employer] T Wave [place] 230 degrees [facility] Austin Carmona MD - 12/26/2023 IMPRESSION: Atrial fibrillation Poor R wave progression, CONSIDER ANTERIOR INFARCT ST and T abnormality Electronically Signed On 12-26-2023 09:21:43 EDT by Austin Carmona [facility] Nursing Noteon 12-26-2023 Nursing Note Discharge instructions given to patient and daughter. Patient verbalizes understanding of medication changes and follow up appointments, and activity restrictions. Discharged to home with daughter. Normal [facility] [employer] [facility] US Heart TransthoracicOrdere d By: Christopher Ruggiero on 12-26-2023 Ao Root Index 1.47 cm/m2 [employer] Work Phone: Aortic Root 3.1 cm [employer] Work Phone: Aortic Sinus Valsalva 3.1 cm [facility] Work Phone: Aortic Sinus Valsalva Index 1.47 cm/m2 [facility] Work Phone: Ascending Aorta 3.6 cm [facility] Work Phone: Ascending Aorta Index 1.71 cm/m2 [facility] Work Phone: AV Area by Peak Velocity 0.6 cm2 [facility] Work Phone: AV Area by VTI 1.3 cm2 [facility] Work Phone: AV AT 75.0 ms [facility] Work Phone: AV Mean Gradient 21 mmHg [facility] Work Phone: AV Mean Velocity 2.8 m/s [facility] Work Phone: AV Peak Gradient 36 mmHg [facility] Work Phone: AV Peak Velocity 3.0 m/s [facility] Work Phone: AV Velocity Ratio 0.27 [facility] Work Phone: AV VTI 71.0 cm [facility] Work Phone: RAMÓN/BSA Peak Velocity 0.3 cm2/m2 [facility] Work Phone: RAMÓN/BSA VTI 0.6 cm2/m2 [facility] Work Phone: E/E' Lateral 11.25 [facility] Work Phone: E/E' Ratio (Averaged) 16.88 [facility] Work Phone: E/E' Septal 22.50 [facility] Work Phone: EF BP 36 % Abnormal 55 - 100 % [facility] Work Phone: Est. RA Pressure 3 mmHg [facility] Work Phone: Fractional Shortening 2D 29 % 28 - 44 % [facility] Work Phone: Interpretation and review of laboratory results Abnormal [facility] Work Phone: IVC Diameter 2.2 cm [facility] Work Phone: IVSd 1.4 cm Abnormal 0.6 - 0.9 cm [facility] Work Phone: LA Diameter 4.9 cm [facility] Work Phone: LA Size Index 2.32 cm/m2 [facility] [employer] Work Phone: LA Volume 2C 111 mL Abnormal 22 - 52 mL [facility] Work Phone: LA Volume 4C 131 mL Abnormal 22 - 52 mL [facility] Work Phone: LA Volume A/L 137 mL [facility] [employer] Work Phone: LA Volume BP 127 mL Abnormal 22 - 52 mL [facility] Work Phone: LA Volume Index 2C 53 mL/m2 Abnormal 16 - 34 mL/m2 [facility] Work Phone: LA Volume Index 4C 62 mL/m2 Abnormal 16 - 34 mL/m2 [facility] Work Phone: LA Volume Index A/L 65 mL/m2 16 - 34 mL/m2 [facility] Work Phone: LA Volume Index BP 60 ml/m2 Abnormal 16 - 34 ml/m2 [facility] Work Phone: LA/AO Root Ratio 1.58 [facility] Work Phone: LV E' Lateral Velocity 8 cm/s [facility] Work Phone: LV E' Septal Velocity 4 cm/s [facility] Work Phone: LV EDV A2C 137 mL [facility] Work Phone: LV EDV A4C 145 mL [facility] Work Phone: LV EDV BP 148 mL Abnormal 56 - 104 mL [facility] Work Phone: LV EDV Index A2C 65 mL/m2 [facility] Work Phone: LV EDV Index A4C 69 mL/m2 [facility] Work Phone: LV EDV Index BP 70 mL/m2 [facility] [employer] Work Phone: LV Ejection Fraction A2C 36 % [facility] Work Phone: LV Ejection Fraction A4C 35 % [facility] Work Phone: LV ESV A2C 88 mL [facility] Work Phone: LV ESV A4C 94 mL [facility] Work Phone: LV ESV BP 95 mL Abnormal 19 - 49 mL [facility] Work Phone: LV ESV Index A2C 42 mL/m2 [facility] [employer] [facility] Work Phone: LV ESV Index A4C 45 mL/m2 [facility] [employer] [facility] Work Phone: LV ESV Index BP 45 mL/m2 [facility] Work Phone: LV Mass 2D 355.3 g Abnormal 67 - 162 g [facility] Work Phone: LV Mass 2D Index 168.4 g/m2 Abnormal 43 - 95 g/m2 [facility] [employer] Work Phone: LV RWT Ratio 0.55 [facility] [employer] Work Phone: LVIDd 5.5 cm Abnormal 3.9 - 5.3 cm [facility] [employer] Work Phone: LVIDd Index 2.61 cm/m2 [facility] [employer] Work Phone: LVIDs 3.9 cm [facility] Work Phone: LVIDs Index 1.85 cm/m2 [facility] [employer] Work Phone: LVOT Area 4.2 cm2 [facility] Work Phone: LVOT Cardiac Output 3.1 liter/mi nut e [employer] [facility] Work Phone: LVOT Diameter 2.3 cm [facility] Work Phone: LVOT Mean Gradient 2 mmHg [facility] Work Phone: LVOT Peak Gradient 3 mmHg [facility] Work Phone: LVOT Peak Velocity 0.8 m/s [facility] Work Phone: LVOT Stroke Volume Index 45.3 mL/m2 [facility] Work Phone: LVOT SV 95.5 ml [facility] Work Phone: LVOT VTI 23.0 cm [facility] Work Phone: LVOT:AV VTI Index 0.32 [facility] Work Phone: LVPWd 1.5 cm Abnormal 0.6 - 0.9 cm [facility] Work Phone: MR VTI 167.4 cm [facility] Work Phone: MV A Velocity 0.53 m/s [facility] Work Phone: MV Area by PHT 3.0 cm2 [facility] Work Phone: MV Area by VTI 2.1 cm2 [facility] Work Phone: MV E Velocity 0.90 m/s [facility] Work Phone: MV E Wave Deceleration Time 149.3 ms [facility] Work Phone: MV E/A 1.70 [facility] Work Phone: MV Max Velocity 1.2 m/s [facility] Work Phone: MV Mean Gradient 2 mmHg [facility] Work Phone: MV Mean Velocity 0.6 m/s [facility] Work Phone: MV Nyquist Velocity 30 cm/s [facility] Work Phone: MV Peak Gradient 6 mmHg [facility] Work Phone: MV PHT 73.0 ms [facility] Work Phone: MV Regurg Velocity PISA 5.3 m/s S [facility] Work Phone: MV VTI 46.5 cm [facility] Work Phone: MV:LVOT VTI Index 2.02 [facility] Work Phone: RA Area 4C 65.2 mL [facility] Work Phone: RV Basal Dimension 3.4 cm [facility] Work Phone: RV Free Wall Peak S' 9 cm/s [facility] Work Phone: RV Mid Dimension 1.4 cm [facility] Work Phone: RVSP 41 mmHg [facility] Work Phone: Sinotubular Junction 2.5 cm [facility] Work Phone: TAPSE 1.7 cm 1.7 cm [facility] Work Phone: TR Max Velocity 3.10 m/s [facility] Work Phone: [facility] Work Phone: Heart Transthoracicon Left Ventricle: Left ventricle size is normal. Normal wall thickness. Normal left ventricular systolic function. The EF by visual approximation is 50%. Normal wall motion. Right Ventricle: Right ventricle is mildly dilated. Low normal systolic function. Aortic Valve: Lucia Soumya 3 Ultra bioprosthetic aortic valve with a size of 23 mm. AV mean gradient is 21 mmHg. No regurgitation. No stenosis. Elevated prosthetic gradient. AV mean gradient is 21 mmHg. AV peak gradient is 36 mmHg. AV peak velocity is 3.0 m/s. AV AT is 75.0 ms. LVOT:AV VTI Index is 0.32. AV area by continuity VTI is 1.3 cm2. Mitral Valve: Severe annular calcification. Mild (1+) regurgitation. No stenosis noted. Tricuspid Valve: Mild (1+) regurgitation. Mildly elevated RVSP. RVSP is 41 mmHg. Technically difficult study. Left Ventricle Left ventricle size is normal. Normal wall thickness. Normal left ventricular systolic function. The EF by visual approximation is 50%. Normal wall motion. Right Ventricle Right ventricle is mildly dilated. Low normal systolic function. Left Atrium Left atrium is severely dilated. LA Vol Index A/L is 65 mL/m2. Right Atrium Right atrium size is normal. IVC/SVC IVC diameter is normal and decreases greater than 50% during inspiration; therefore the estimated right atrial pressure is normal (~3 mmHg). Mitral Valve Severe annular calcification. Mild (1+) regurgitation. No stenosis noted. Tricuspid Valve Valve structure is normal. Mild (1+) regurgitation. Mildly elevated RVSP. RVSP is 41 mmHg. Aortic Valve Lucia Soumya 3 Ultra bioprosthetic aortic valve with a size of 23 mm. AV mean gradient is 21 mmHg. No regurgitation. No stenosis. Elevated prosthetic gradient. AV mean gradient is 21 mmHg. AV peak gradient is 36 mmHg. AV peak velocity is 3.0 m/s. AV AT is 75.0 ms. LVOT:AV VTI Index is 0.32. AV area by continuity VTI is 1.3 cm2. Pulmonic Valve Valve structure is normal. Trace regurgitation. Ascending Aorta Normal sized sinuses of Valsalva and ascending aorta. Pericardium No pericardial effusion. Septum No interatrial shunt visualized on color Doppler. Study Details Image quality: suboptimal. Heart rate: 75 bpm. Blood pressure: 165/78 mmHg. Technical qualifiers: Technically difficult study, technically difficult study with poor endocardial visualization and technically difficult study due to patient's body habitus. Ultrasound enhancement agent was given to enhance imaging. Echo Additional Conclusions Technically difficult study. CV CPACS Vital signsOrdered By: Austin Carmona on 12-26-2023 Heart rate 37 /min bpm [facility] [employer] Work Phone: Vital signson 12-26-2023 Heart rate 51 /min bpm [facility] BASIC METABOLIC PANELon 10-0 Anion gap [Moles/Vol] 9 mmol/L Normal 3-13 [facility] Comment on above: Performed By: #### L [id number] ####Machine Cloth Examiner: AIDE RUEDA ([id number])[facility] ([facility])[address] [place] [address] Calcium [Mass/Vol] 8.5 mg/dL Normal 8.4-10.4 [facility] Comment on above: Performed By: #### L AB15 ####Machine Cloth Examiner: AIDE RUEDA ([id number])[facility] [place] [address] Chloride [Moles/Vol] 113 mmol/L High 98-107 [facility] Comment on above: Performed By: #### L AB15 ####Machine Cloth Examiner: AIDE RUEDA ([id number])[facility] ([facility])[address] [place] [address] CO2 [Moles/Vol] 19 mmol/L Low 22-30 [facility] Comment on above: Performed By: #### L AB15 ####Machine Cloth Examiner: AIDE RUEDA ([id number])[facility])[address] [place] [address] Creatinine [Mass/Vol] 1.09 mg/dL High 0.52-1.04 [facility] Comment on above: Performed By: #### L AB15 ####Machine Cloth Examiner: AIDE RUEDA ([id number])[facility])[address] [place] [address] GLOMERULAR FILTRATION RATE ML/MIN/1.73 SQ M.PREDICTED 50.5 mL/min/1.73m*2 Low >60.0 [facility] Comment on above: Result Comment: Calc ulation based on the Chronic Kidney Disease Epidemiology Collaboration (CKD-EPI) equation refit without adjustment for race ORDER COMMENTS: Slightly Hemolyzed. Interpret {TESTS AFFECTED BY SLIGHT HEMOLYSIS:44869} with caution. Performed By: #### L AB15 ####Machine Cloth Examiner: AIDE RUEDA ([id number])[facility])[address] [place] [address] Glucose [Mass/Vol] 148 mg/dL High 70-100 [facility] Comment on above: Performed By: #### L AB15 ####Machine Cloth Examiner: AIDE RUEDA ([id number])[facility])[address] [place] [address] [place] Potassium [Moles/Vol] 4.7 mmol/L Normal 3.5-5.1 [facility] Comment on above: Performed By: #### L AB15 ####Machine Cloth Examiner: AIDE RUEDA ([id number])[facility])[address] [place] [address] [place] Sodium [Moles/Vol] 141 mmol/L Normal 135-145 [facility] Comment on above: Performed By: #### L AB15 ####Machine Cloth Examiner: AIDE RUEDA ([id number])[facility] ([facility])[address] [place] [address] Urea nitrogen [Mass/Vol] 28 mg/dL High 7-17 [facility] Comment on above: Performed By: #### L AB15 ####Machine Cloth Examiner: AIDE RUEDA ([id number])[facility] ([facility])[address] [place] [address] BLOOD TYPE AND SCREEN GELon 12-25-2023 ABO GROUPING O Normal [facility] Comment on above: Performed By: #### L [id number] ####Machine Cloth Examiner: AIDE RUEDA ([id number])[facility] ([facility])[address] [place] [address] RH TYPE IN BLOOD Positive Normal [facility] Comment on above: Performed By: #### L [id number] ####Machine Cloth Examiner: AIDE RUEDA ([id number])[facility] ([facility])[address] [place] [address] Basic metabolic 1998 panelon 12-25-2023 Anion gap [Moles/Vol] 9 mmol/L 3 - 13 mmol/L [facility] Calcium [Mass/Vol] 8.5 mg/dL 8.4 - 10. 4 mg/dL [facility] Chloride [Moles/Vol] 113 mmol/L High 98 - 10 7 mmol/L [facility] CO2 [Moles/Vol] 19 mmol/L Low 22 - 30 mmol/L [facility] Creatinine [Mass/Vol] 1.09 mg/dL High 0.52 - 1.04 mg/dL [facility] GFR/1.73 sq M.predicted (S/P/Bld) [Vol rate/Area] 50.5 mL/min Low - PINF [facility] Comment on above: Calculation based on the Chronic Kidney Disease Epidemiology Collaboration (CKD-EPI) equation refit without adjustment for race Glucose [Mass/Vol] 148 mg/dL High 70 - 100 mg/dL [facility] Interpretation and review of laboratory results Abnormal [facility] Potassium [Moles/Vol] 4.7 mmol/L 3.5 - 5.1 mmol/L [facility] Sodium [Moles/Vol] 141 mmol/L 135 - 145 mmol/L [facility] Urea nitrogen [Mass/Vol] 28 mg/dL High 7 - 17 mg/dL [facility] Slightly Hemolyzed. Interpret {TESTS AFFECTED BY SLIGHT HEMOLYSIS:82815} with caution. [facility] Blood type and Crossmatch pa justin (Bld)on 12-25-2023 ABO group Nom (Bld) O [facility] Blood group antibody screen GEL Ql Negative [facility] D Ag Ql (RBC) Positive [facility] CBC (HEMOGRAM)on 12-25-2023 Erythrocyte distribution width (RBC) [Ratio] 13.3 % Normal 11.5-15.0 [facility] Comment on above: Performed By: #### L [id number] ####Machine Cloth Examiner: AIDE RUEDA ([id number])[address] Hematocrit (Bld) [Volume fraction] 39.5 % Normal 35.0-47.0 [facility] Comment on above: Performed By: #### L AB294 ####Machine Cloth Examiner: AIDE RUEDA ([id number])[address] Hemoglobin (Bld) [Mass/Vol] 13.0 g/dL Normal 11.7-16.0 [facility] Comment on above: Performed By: #### L AB294 ####Machine Cloth Examiner: AIDE RUEDA ([id number])[address] MCH (RBC) [Entitic mass] 31.9 pg Normal 26.0-34.0 [facility] Comment on above: Performed By: #### L AB294 ####Machine Cloth Examiner: AIDE RUEDA ([id number])[address] MCHC 32.9 % Normal 30.5-36.0 [facility] Comment on above: Performed By: #### L AB294 ####Machine Cloth Examiner: AIDE RUEDA ([id number])[facility] ([facility])[address] [place] [address] MCV (RBC) [Entitic vol] 97.1 fL Normal 77.0-99.0 [facility] Comment on above: Performed By: #### L AB294 ####Machine Cloth Examiner: AIDE RUEDA ([id number])[facility])[address] [place] [address] Platelet mean volume (Bld) [Entitic vol] 12.2 fL Normal 9.0-12.7 [facility] Comment on above: Performed By: #### L [id number] ####Machine Cloth Examiner: AIDE RUEDA ([id number])[facility])[address] [place] [address] Platelets (Bld) [#/Vol] 140 10*3/uL Normal 140-440 [facility] Comment on above: Performed By: #### L AB294 ####Machine Cloth Examiner: AIDE RUEDA ([id number])[facility])[address] [place] [address] RBC (Bld) [#/Vol] 4.07 10*6/uL Normal 3.80-5.20 [facility] Comment on above: Performed By: #### L AB294 ####Machine Cloth Examiner: AIDE RUEDA ([id number])[facility])[address] [place] [address] WBC (Bld) [#/Vol] 9.1 10*3/uL Normal 3.6-10.7 [facility] Comment on above: Performed By: #### L AB294 ####Machine Cloth Examiner: AIDE RUEDA ([id number])[facility])[address] [place] [address] CBC panel Auto (Bld)on 12-24 Erythrocyte distribution width (RBC) [Ratio] 13.3 % 11.5 - 15.0 % [facility] Hematocrit (Bld) [Volume fraction] 39.5 % 35.0 - 47.0 % [facility] Hemoglobin (Bld) [Mass/Vol] 13.0 g/dL 11.7 - 16.0 g/dL [facility] Interpretation and review of laboratory results Normal [facility] MCH (RBC) [Entitic mass] 31.9 pg 26.0 - 34.0 pg [facility] MCHC (RBC) [Mass/Vol] 32.9 % 30.5 - 36.0 % [facility] MCV (RBC) [Entitic vol] 97.1 fL 77.0 - 99.0 fL [facility] Platelet mean volume (Bld) [Entitic vol] 12.2 fL 9.0 - 12.7 fL [facility] Platelets (Bld) [#/Vol] 140 10*3/uL 140 - 440 10*3/uL [facility] RBC (Bld) [#/Vol] 4.07 10*6/uL 3.80 - 5.2 0 10*6/uL [facility] WBC (Bld) [#/Vol] 9.1 10*3/uL 3.6 - 10.7 10*3/uL [facility] Cardiac catheterization stud n 12-25-2023 Successful [id number]-vfcig TAVR with a 23mm soumya S3u, via left femoral approach TAVR Procedural Report Interventional Cardiologists: -Harjeet Huffman MD -Vida Calvin MD (Fellow) -George Ann MD (Fellow) Cardiothoracic Surgeon: -Tien Cornell MD Procedure: 1. A 23 SOUMYA S3 VALVE IMPLANTATION. 2. TRANSFEMORAL TRANSCATHETER AORTIC VALVE REPLACEMENT. Preoperative Diagnosis: Severe and symptomatic aortic stenosis. Postoperative Diagnosis: Severe aortic stenosis. Anesthesia: Moderate Conscious Sedation History of Present Illness: This is a very pleasant 83 y.o. female with a history of severe and symptomatic aortic stenosis. her case was discussed in our multidisciplinary valve conference and was felt to be of appropriate candidacy for TAVR. The pros, cons, risks, benefits, and alternatives of transcatheter aortic valve replacement were reviewed with the patient, and questions were answered, she provided informed consent and wished to proceed with the procedure. Description of Procedure: The patient was brought to the operating suite by anesthesia. The patient was placed under conscious sedation. The patient was then cleaned, prepped and draped in the normal sterile manner. Access was then gained in the left femoral artery, right radial artery, and left femoral vein. Via the left femoral vein, a 6 Argentine sheath was placed and temporary pacing wire was placed into the RV apex with appropriate capture, in addition sterile tubing was attached and given the anesthesia for central access. Via right radial artery, a 6-Argentine sheath was placed and the pigtail catheter was placed into the aortic annulus with confirmation the implant angle. Via the left femoral artery, a 6-Argentine sheath was placed. The patient was then heparinized. Next, two Perclose devices were used using the pre-close strategy. A Super Stiff wire was then placed through the second Perclose into the descending aorta. Then, a 14-Argentine Soumya E-sheath was introduced over the wire into the descending aorta. The sheath was then flushed. Next, an AL1 catheter and a straight wire were used to cross the aortic valve through the e- sheath. The straight wire was then removed and an Amplatz extra stiff wire (formed into a curve) was placed into the LV apex. Next, the AL1 catheter was removed. Next a 23 mm Soumya S3 valve was then advanced through the sheath into the descending aorta.The valve was then mounted on the balloon, the delivery catheter was flexed and advanced around the aortic arch and across the aortic annulus. The valve was then deployed under rapid pacing. Confirmation of an appropriate implant position and appropriately functioning valve was done using TTE. Next, the delivery catheter, extra stiff wire, and large sheath were removed and the Perclose devices were used for hemostasis. A Vascband was used for hemostasis of the additional arterial site. Manual pressure was used for hemostasis of the femoral venous access site. Overall, the patient tolerated the procedure well with minimal blood loss. No immediate complications. The patient will return to the Cardiac Care unit for continued monitoring. It was a pleasure taking care of your patient while hospitalized at [facility]. I will continue to follow along while hospitalized. Please do not hesitate to call with any questions. [facility] [employer] [facility] [employer] No Panel Informationon 12-24 Blood Expiration Date S [facility] Blood Expiration Date S [facility] Crossmatch interpretation COMP [facility] Dispense Status Crossmatch [facility] Product Blood Type 5100 [facility] [employer] PRODUCT CODE [id number] [facility] [employer] PRODUCT CODE [id number] [facility] Unit ABO O [facility] Unit Number [id number] [facility] Number [id number] [facility] RH Positive [facility] Unit Volume 300 mL [facility] Op Noteon 12-25-2023 Op Note Date of surgery 12/25/2023 Cardiothoracic Surgeon: Tien [...] The valve was passed through the 14 Argentine sapient E sheath into the descending thoracic [...] patient was decannulated transferred stable to recovery. Normal [employer] [facility] Heart TransthoracicOrdere d By: Otto Fernandez on 12-25-2023 AV Area (Pre-TAVR) 0.3 cm2 [employer] [facility] Work Phone: AV Area by Peak Velocity 0.7 cm2 [facility] Work Phone: AV Area by VTI 0.7 cm2 [facility] th Work Phone: AV Mean Gradient 14 mmHg [facility] Work Phone: AV Mean Gradient (Pre-TAVR) 59 mmHg [facility] Work Phone: AV Mean Velocity 1.7 m/s [facility] Work Phone: AV Peak Gradient 25 mmHg [facility] Work Phone: AV Peak Gradient (Pre-TAVR) 93 mmHg [facility] Work Phone: AV Peak Velocity 2.5 m/s [facility] Work Phone: AV Peak Velocity (Pre-TAVR) 4.8 m/s [facility] Work Phone: AV Velocity Ratio 0.20 [facility] Work Phone: AV VTI 60.2 cm [facility] Work Phone: RAMÓN/BSA Peak Velocity 0.3 cm2/m2 [facility] Work Phone: RAMÓN/BSA VTI 0.3 cm2/m2 [facility] Work Phone: Est. RA Pressure 3 mmHg [facility] Work Phone: LVOT Area 3.1 cm2 [facility] Work Phone: LVOT Cardiac Output 1.6 liter/mi nut e [facility] Work Phone: LVOT Diameter 2.0 cm [facility] Work Phone: LVOT Mean Gradient 1 mmHg [facility] Work Phone: LVOT Peak Gradient 1 mmHg [facility] Work Phone: LVOT Peak Velocity 0.5 m/s [facility] Work Phone: LVOT Stroke Volume Index 20.6 mL/m2 [facility] Work Phone: LVOT SV 42.7 ml [facility] Work Phone: LVOT VTI 13.6 cm [facility] Work Phone: LVOT:AV VTI Index 0.23 [facility] Work Phone: RVSP 51 mmHg [facility] Work Phone: TR Max Velocity 3.45 m/s [facility] Work Phone: TR Peak Gradient 48 mmHg [facility] Work Phone: [facility] Work Phone: Heart Transthoracicon Aortic Valve: Lucia Soumya 3 Ultra bioprosthetic aortic valve with a size of 23mm mm. AV mean gradient is 14 mmHg. Tricuspid Valve: RVSP is 48 mmHg Plus the RA. Otherwise limited echo. Images not clear enough for further conclusions. Mitral Valve Moderate annular calcification (posterior). Mild (1+) regurgitation. Tricuspid Valve Mild (1+) regurgitation. RVSP is 48 mmHg Plus the RA. Aortic Valve Lucia Soumya 3 Ultra bioprosthetic aortic valve with a size of 23mm mm. AV mean gradient is 14 mmHg. Trace regurgitation. Pericardium No pericardial effusion. Study Details Image quality: technically difficult. Heart rate: 42 bpm. Blood pressure: 150/73 mmHg. Echo performed in conjunction with TAVR procedure. Technical qualifiers: Technically difficult study, technically difficult study due to patient's body habitus, technically difficult study due to patient's heart rhythm and procedure performed with the patient in a supine position. No contrast was given. [facility] CT ANGIOGRAM TAVRon 12-22-19 CT ANGIOGRAM TAVR Patient Name: BRIANNE CALL : 1940 Exam Date/Time: 12/12/2023 10:40 Procedure: CT ANGIOGRAM TAVR Ordering Provider: HIGGINS MEGGAN Reason For Exam: aortic stenosis --------ADDENDUM [...] 12/22/2023 11:10 AM EDT --------ORIGINAL REPORT -------- [facility] Valve [facility] Cardiovascular CTA Indication: 83 year-old woman with severe aortic stenosis, being evaluated for transcatheter aortic valve implantation. Technique: Computed tomography of the heart, thoracoabdominal aorta, and iliofemoral system was performed using a [employer] One 320 detector scanner. Images were [...] 10:40 Procedure: CT ANGIOGRAM TAVR Ordering Provider: HIGGINS MEGGAN Reason For Exam: aortic stenosis [facility] Valve [facility] Cardiovascular CTA Indication: 83 year-old woman with severe aortic stenosis, being evaluated for transcatheter aortic valve implantation. Technique: Computed tomography of the heart, thoracoabdominal aorta, and iliofemoral system was performed usi (more content not included)... Normal [facility] 36on 12-21-2023 36 Patient has stage 3 b- 4 CKD, stable compared to previous. OK to proceed. Normal [facility] 36 BMP received, reviewed, WHIT to enter, Creat 1.9 GFR 27. Teofilo David CNP to review. Normal [facility] 36 I called [facility] for BMP, left message w/ OP lab to fax results. Normal [facility] 36on 12-18-2023 36 I can not make any changes or cx the No Show b/c it's past. [place] [address]on 12-16-2023 36 Name of caller: Brianne Contact phone number: [phone] Relationship to Patient: patient Provider: Mónica David APRN-SIM Practice: [facility] Chief Complaint/Reason for Call: Patient had 3 appointments on 12/12/2023 11:00,11:00 and 11:20, the 11:00 and 11:20 were extended office visits the first 11:00 was moved to 10:00 in which she did arrive to and the other 11:00 was cancelled, no one cancelled out the 11:20 appointment resulting in a no show on an appointment that was cancelled. Can some one please correct the issue for the patient? Please advise. Best time of day caller can be reached: any Patient advised that office/PCP has 24-48 business hours to return their call: N/A [facility] 12-15-2023 36 Lab order faxed to [facility] [phone]/[facility] 12-14-2023 36 Per Teofilo David DNP, will get BMP done on 12/19/23 in [place], RX for Prednisone pended. [facility] to fax lab order to [facility], pt notified via phone and verbalizes understanding. [place] [id number] 36 Pt returned my call, no further issues w/ itching/hives from contrast allergy. I reviewed need for BMP and Prednisone before TAVR. Of note, pt was unaware of any renal insufficiency in the past. Will discuss timing of BMP w/ Teofilo David DNP. [facility] 36 Per Teofilo David DNP, pt had allergic reaction to CTA contrast yesterday, and pt with increase in Creat. Plan for [facility]ye Allergy Prep meds will be needed, and repeat BMP. I left vm message for pt to return call. Normal [facility] BLOOD TYPE AND SCREEN [facility]23 ABO GROUPING O Normal [facility] Comment on above: Performed By: #### L [id number] ####Machine Cloth Examiner: AIDE RUEDA ([id number])[facility] ([facility])[address] [place] [address] RH TYPE IN BLOOD Positive [facility] Comment on above: Performed By: #### L [id number] ####Machine Cloth Examiner: AIDE RUEDA ([id number])[facility] ([facility])[address] [place] [address] Blood type and Crossmatch pa justin (Bld)on 12-12-2023 ABO group Nom (Bld) O [facility] Blood group antibody screen GEL Ql Negative [facility] D [facility]l [facility]BC) [facility] CBC W Auto Differential pane l (Bld)on 12-12-2023 Basophils (Bld) [#/Vol] 0.1 10*3/uL 0.0 - 0.2 10*3/uL [facility] Basophils/100 WBC (Bld) 1.3 % 0.0 - 2.0 % [facility] Eosinophils (Bld) [#/Vol] 0.1 10*3/uL 0.0 - 0.5 10*3/uL [facility] Eosinophils/100 WBC (Bld) 2.0 % 0.0 - 6.0 % [facility] Erythrocyte distribution width (RBC) [Ratio] 13.1 % 11.5 - 15.0 % [facility] Hematocrit (Bld) [Volume fraction] 48.1 % High 35.0 - 47.0 % [facility] Hemoglobin (Bld) [Mass/Vol] 16.0 g/dL 11.7 - 16.0 g/dL [facility] Immature granulocytes (Bld) [#/Vol] 0.1 10*3/uL High NINF - 0.1 10*3/uL [facility] [employer] Immature granulocytes/100 WBC (Bld) 0.7 % 0.0 - 2.0 % [facility] Interpretation and review of laboratory results Abnormal [facility] Lymphocytes (Bld) [#/Vol] 1.6 10*3/uL 1.0 - 4.3 10*3/uL [facility] Lymphocytes/100 WBC (Bld) 23.0 % 15.0 - 45.0 % [facility] MCH (RBC) [Entitic mass] 31.7 pg 26.0 - 34.0 pg [facility] MCHC (RBC) [Mass/Vol] 33.3 % 30.5 - 36.0 % [facility] MCV (RBC) [Entitic vol] 95.2 fL 77.0 - 99.0 fL [facility] Monocytes (Bld) [#/Vol] 1.0 10*3/uL High 0.0 - 0.9 10*3/uL [facility] Monocytes/100 WBC (Bld) 14.2 % High 5.0 - 13.0 % [facility] Neutrophils (Bld) [#/Vol] 4.0 10*3/uL 1.8 - 7.5 10*3/uL [facility] Neutrophils/100 WBC (Bld) 58.8 % 38.0 - 82.0 % [facility] Nucleated RBC/100 WBC (Bld) [Ratio] 0.0 % [facility] Platelet mean volume (Bld) [Entitic vol] 13.0 fL High 9.0 - 12.7 fL [facility] Platelets (Bld) [#/Vol] 194 10*3/uL 140 - 440 10*3/uL [facility] RBC (Bld) [#/Vol] 5.05 10*6/uL 3.80 - 5.2 0 10*6/uL [facility] WBC (Bld) [#/Vol] 6.9 10*3/uL 3.6 - 10.7 10*3/uL [facility] CBC WITH AUTO DIFFERENTIALon 12-12-2023 Basophils (Bld) [#/Vol] 0.1 10*3/uL Normal 0.0-0.2 [facility] Comment on above: Performed By: #### L [id number] #### Machine Cloth Examiner: AIDE RUEDA ([id number]) [facility]) [address] [place] [address] Basophils/100 WBC (Bld) 1.3 % Normal 0.0-2.0 [facility] Comment on above: Performed By: #### L [id number] #### Machine Cloth Examiner: AIDE RUEDA ([id number]) [facility] ([facility]) [address] [place] [address] [place] Eosinophils (Bld) [#/Vol] 0.1 10*3/uL Normal 0.0-0.5 [facility] Comment on above: Performed By: #### L [id number] #### Machine Cloth Examiner: AIDE RUEDA ([id number]) [facility] ([facility]) [address] [place] [address] [place] Eosinophils/100 WBC (Bld) 2.0 % Normal 0.0-6.0 [facility] Comment on above: Performed By: #### L [id number] #### Machine Cloth Examiner: AIDE RUEDA ([id number]) [address] Erythrocyte distribution width (RBC) [Ratio] 13.1 % Normal 11.5-15.0 [facility] Comment on above: Performed By: #### L [id number] #### Machine Cloth Examiner: AIDE RUEDA ([id number]) [facility]) [address] [place] [address] Hematocrit (Bld) [Volume fraction] 48.1 % High 35.0-47.0 [facility] Comment on above: Performed By: #### L [id number] #### Machine Cloth Examiner: AIDE RUEDA ([id number]) [address] Hemoglobin (Bld) [Mass/Vol] 16.0 g/dL Normal 11.7-16.0 [facility] Comment on above: Performed By: #### L [id number] #### Machine Cloth Examiner: AIDE RUEDA ([id number]) [address] IMMATURE GRANS % 0.7 % Normal 0.0-2.0 [facility] Comment on above: Performed By: #### L [id number] #### Machine Cloth Examiner: AIDE RUEDA ([id number]) [address] IMMATURE GRANS ABSOLUTE 0.1 10*3/uL High <0.1 [facility] Comment on above: Performed By: #### L [id number] #### Machine Cloth Examiner: AIDE RUEDA ([id number]) [address] Lymphocytes (Bld) [#/Vol] 1.6 10*3/uL Normal 1.0-4.3 [facility] Comment on above: Performed By: #### L [id number] #### Machine Cloth Examiner: AIDE RUEDA ([id number]) [facility] ([facility]) [address] [place] [address] Lymphocytes/100 WBC (Bld) 23.0 % Normal 15.0-45.0 [facility] Comment on above: Performed By: #### L [id number] #### Machine Cloth Examiner: AIDE RUEAD ([id number]) [facility]) [address] [place] [address] MCH (RBC) [Entitic mass] 31.7 pg Normal 26.0-34.0 [facility] Comment on above: Performed By: #### L [id number] #### Machine Cloth Examiner: AIDE RUEDA ([id number]) [facility]) [address] [place] [address] MCHC 33.3 % Normal 30.5-36.0 [facility] Comment on above: Performed By: #### L [id number] #### Machine Cloth Examiner: AIDE RUEDA ([id number]) [facility] ([facility]) [address] [place] [address] MCV (RBC) [Entitic vol] 95.2 fL Normal 77.0-99.0 [facility] Comment on above: Performed By: #### L [id number] #### Machine Cloth Examiner: AIDE RUEDA ([id number]) [facility]) [address] [place] [address] Monocytes (Bld) [#/Vol] 1.0 10*3/uL High 0.0-0.9 [facility] Comment on above: Performed By: #### L [id number] #### Machine Cloth Examiner: AIDE RUEDA ([id number]) [facility]) [address] [place] [address] Monocytes/100 WBC (Bld) 14.2 % High 5.0-13.0 [facility] Comment on above: Performed By: #### L [id number] #### Machine Cloth Examiner: AIDE RUEDA ([id number]) [facility]) [address] [place] [address] NEUTROPHILS ABSOLUTE 4.0 10*3/uL Normal 1.8-7.5 [facility] Comment on above: Performed By: #### L [id number] #### Machine Cloth Examiner: AIDE RUEDA ([id number]) [facility]) [address] [place] [address] Neutrophils/100 WBC (Bld) 58.8 % Normal 38.0-82.0 [facility] Comment on above: Performed By: #### L [id number] #### Machine Cloth Examiner: AIDE RUEDA ([id number]) [facility]) [address] [place] [address] NRBC 0.0 /100 WBCs Normal 0.0-2.0 [facility] Comment on above: Performed By: #### L [id number] #### Machine Cloth Examiner: AIDE RUEDA ([id number]) [facility]) [address] [place] [address] Platelet mean volume (Bld) [Entitic vol] 13.0 fL High 9.0-12.7 [facility] Comment on above: Performed By: #### L [id number] #### Machine Cloth Examiner: AIDE RUEDA ([id number]) [facility] ([facility]) [address] [place] [address] [place] Platelets (Bld) [#/Vol] 194 10*3/uL Normal 140-440 [facility] Comment on above: Performed By: #### L [id number] #### Machine Cloth Examiner: AIDE RUEDA ([id number]) [facility]) [address] [place] [address] [place] RBC (Bld) [#/Vol] 5.05 10*6/uL Normal 3.80-5.20 [facility] Comment on above: Performed By: #### L [id number] #### Machine Cloth Examiner: AIDE RUEDA ([id number]) [facility]) [address] [place] [address] [place] WBC (Bld) [#/Vol] 6.9 10*3/uL Normal 3.6-10.7 [facility] Comment on above: Performed By: #### L [id number] #### Machine Cloth Examiner: AIDE RUEDA ([id number]) [facility]) [address] [place] [address] COMPREHENSIVE METABOLIC PANE [place] 12-12-2023 Albumin [Mass/Vol] 4.1 g/dL Normal 3.5-5.0 [facility] Comment on above: Performed By: #### L AB106, LAB17 ####Machine Cloth Examiner: AIDE RUEDA ([id number])[facility] ([facility])[address] [place] [address] ALP [Catalytic activity/Vol] 70 U/L Normal 38-126 [facility] Comment on above: Performed By: #### L AB106, LAB17 ####Machine Cloth Examiner: AIDE RUEDA ([id number])[facility])[address] [place] [address] ALT [Catalytic activity/Vol] 18 U/L Normal 0-34 [facility] Comment on above: Performed By: #### L AB106, LAB17 ####Machine Cloth Examiner: AIDE RUEDA ([id number])[facility] ([facility])[address] [place] [address] Anion gap [Moles/Vol] 11 mmol/L Normal 3-13 [facility] Comment on above: Performed By: #### L AB106, LAB17 ####Machine Cloth Examiner: AIDE RUEDA ([id number])[facility])[address] [place] [address] AST [Catalytic activity/Vol] 52 U/L High 15-46 [facility] Comment on above: Performed By: #### L AB106, LAB17 ####Machine Cloth Examiner: AIDE RUEDA ([id number])[facility])[address] [place] [address] Bilirubin [Mass/Vol] 1.0 mg/dL Normal 0.2-1.3 [facility] Comment on above: Performed By: #### L AB106, LAB17 ####Machine Cloth Examiner: AIDE RUEDA ([id number])[facility] ([facility])[address] [place] [address] [place] Calcium [Mass/Vol] 9.3 mg/dL Normal 8.4-10.4 [facility] Comment on above: Performed By: #### L AB106, LAB17 ####Machine Cloth Examiner: AIDE RUEDA ([id number])[facility])[address] [place] [address] [place] Chloride [Moles/Vol] 103 mmol/L Normal 98-107 [facility] Comment on above: Performed By: #### L AB106, LAB17 ####Machine Cloth Examiner: AIDE RUEDA ([id number])[facility] ([facility])[address] [place] [address] CO2 [Moles/Vol] 22 mmol/L Normal 22-30 [facility] Comment on above: Performed By: #### L AB106, LAB17 ####Machine Cloth Examiner: AIDE RUEDA ([id number])[facility] ([facility])[address] [place] [address] [place] Creatinine [Mass/Vol] 1.95 mg/dL High 0.52-1.04 [facility] Comment on above: Performed By: #### L AB106, LAB17 ####Machine Cloth Examiner: AIDE RUEDA ([id number])[facility])[address] [place] [address] [place] GLOMERULAR FILTRATION RATE ML/MIN/1.73 SQ M.PREDICTED 25.1 mL/min/1.73m*2 Low >60.0 [facility] Comment on above: Result Comment: Calc ulation based on the Chronic Kidney Disease Epidemiology Collaboration (CKD-EPI) equation refit without adjustment for race ORDER COMMENTS: Slightly Hemolyzed. Interpret Potassium, Alkaline Phosphatase, and AST with caution. Performed By: #### L AB106, LAB17 ####Machine Cloth Examiner: AIDE RUEDA ([id number])[facility] ([facility])[address] [place] [address] [place] Glucose [Mass/Vol] 107 mg/dL High 70-100 [facility] Comment on above: Performed By: #### L AB106, LAB17 ####Machine Cloth Examiner: AIDE RUEDA ([id number])[facility] ([facility])[address] [place] [address] Potassium [Moles/Vol] 4.3 mmol/L Normal 3.5-5.1 [facility] Comment on above: Performed By: #### L AB106, LAB17 ####Machine Cloth Examiner: AIDE RUEDA ([id number])[facility] ([facility])[address] [place] [address] Protein [Mass/Vol] 7.9 g/dL Normal 6.3-8.2 [facility] Comment on above: Performed By: #### L AB106, LAB17 ####Machine Cloth Examiner: AIDE RUEDA ([id number])[facility] ([facility])[address] [place] [address] Sodium [Moles/Vol] 136 mmol/L Normal 135-145 [facility] Comment on above: Performed By: #### L AB106, LAB17 ####Machine Cloth Examiner: AIDE RUEDA ([id number])[facility] ([facility])[address] [place] [address] Urea nitrogen [Mass/Vol] 36 mg/dL High 7-17 [facility] Comment on above: Performed By: #### L AB106, LAB17 ####Machine Cloth Examiner: AIDE RUEDA ([id number])[facility])[address] [place] [address] Comprehensive metabolic 1998 panelon 12-12-2023 Albumin [Mass/Vol] 4.1 g/dL 3.5 - 5.0 g/dL [facility] ALP [Catalytic activity/Vol] 70 U/L 38 - 126 U/L [facility] ALT [Catalytic activity/Vol] 18 U/L 0 - 34 U/L [facility] Anion gap [Moles/Vol] 11 mmol/L 3 - 13 mmol/L [facility] AST [Catalytic activity/Vol] 52 U/L High 15 - 46 U/L [facility] Bilirubin [Mass/Vol] 1.0 mg/dL 0.2 - 1 .3 mg/dL [facility] Calcium [Mass/Vol] 9.3 mg/dL 8.4 - 10. 4 mg/dL [facility] Chloride [Moles/Vol] 103 mmol/L 98 - 10 7 mmol/L [facility] CO2 [Moles/Vol] 22 mmol/L 22 - 30 mmol/L [facility] Creatinine [Mass/Vol] 1.95 mg/dL High 0.52 - 1.04 mg/dL [facility] GFR/1.73 sq M.predicted (S/P/Bld) [Vol rate/Area] 25.1 mL/min Low - PINF [facility] Comment on above: Calculation based on the Chronic Kidney Disease Epidemiology Collaboration (CKD-EPI) equation refit without adjustment for race Glucose [Mass/Vol] 107 mg/dL High 70 - 100 mg/dL [facility] Interpretation and review of laboratory results Abnormal [facility] Potassium [Moles/Vol] 4.3 mmol/L 3.5 - 5.1 mmol/L [facility] Protein [Mass/Vol] 7.9 g/dL 6.3 - 8.2 g/dL [facility] Sodium [Moles/Vol] 136 mmol/L 135 - 145 mmol/L [facility] Urea nitrogen [Mass/Vol] 36 mg/dL High 7 - 17 mg/dL [facility] Slightly Hemolyzed. Interpret Potassium, Alkaline Phosphatase, and AST with caution. [facility] NT PRO BNPon 12-12-2023 Natriuretic peptide B (Bld) [Mass/Vol] 2261 pg/mL High <450 [facility] Comment on above: Performed By: #### L AB106, LAB17 ####Machine Cloth Examiner: AIDE RUEDA ([id number])[facility] ([address] Natriuretic peptide B [Mass/ Vol]Ordered By: Bob Flores on 12-12-2023 Interpretation and review of laboratory results Abnormal [facility] Natriuretic peptide B (Bld) [Mass/Vol] 2261 pg/mL High NINF - 450 pg/mL [facility] Office Visiton 12-12-2023 Follow-up visit [id number] Brianne Call 1940 [facility] Provider Department Center 12/12/2023 84623-DPZJKNMÓNICA DAVID [facility] [address] No family history on file Level of Service:11187 CT OFFICE/OUTPATIENT ESTABLISHED MOD MDM 30 MIN Reason for Visit and Comments: Cardiac Valve Problem [1334] - Patient seen in private OP procedure area for H + P update and education prior to scheduled TAVR Normal [facility] Progress Noteon 12-12-2023 Progress Note Pts symptoms of the reaction have all gone away. Pt states she feels back to normal. Normal [facility] Progress Note [facility] [place] [address] [facility] [address] Dept: [phone] Dept Visit type: Established : 1940 Reason [...] mm Hg. She underwent cardiac cath at [place] which showed non obstructive CAD. He kidney [...] and headaches. Hematological: Does not bruise/bleed easily. Psychiatric/Behavior al: Negative for dysphoric mood. Allergies Allergen Reactions Varun Inhibitors Other Iodinated [...] tablet Take 25 mg by mouth daily. Facility-Administere d Medications Prior to Visit Medication Dose Route Frequency Provider Last Rate Last Admin famotidine (Pepcid) 20 MG/2ML injection - Pyxis ADS Override Pull Hydrocortisone Sod Suc (PF) (Solu-CORTEF) injection 100 mg 100 mg IntraVENous Once Mónica David APRN - [employer] sodium chloride 0.9 % bolus 500 mL 500 mL IntraVENous Once Harjeet Huffman MD 100 mL/hr at 12/12/23 1005 500 mL at 12/12/23 1005 Past Medical History: Diagnosis Date Aortic stenosis Atrial fibrillation (HCC) Cataracts, bilateral CKD (chronic kidney disease) Congenital heart disease GERD (gastroesophageal reflux disease) Gout Heart failure with reduced ejection fraction (HCC) History of skin cancer Hyperlipidemia Hypertension Hypokalemia LVH (left ventricular hypertrophy) Morbid obesity (HCC) Osteoarthritis Vitamin D deficiency Social (more content not included)... [address] 12-08-2023 Approved [id number] 12/24-12/26/23 Calendars and Snapboard updated. [place] [address] Messaged central scheduling through secure chat and CTA TAVR scheduled at [facility] at [address] 12-07-2023 36 Jay Currie RT is out of office until 12/11/23. I spoke w/ [facility] Radiology Dept, I was sent to a front desk supervisor , I left message re: add on CTA @ [facility] for 12/11. [place] [address] I spoke w/ Katherin in CS, re: [facility] IV hydration, having difficulty with adding pt, she will speak w/ coworker and call me back. I spoke w/ Jennifer RN in [facility], they have pt on their schedule. I spoke w/ patient, reviewed NPO 4 hrs prior, all questions answered. I also spoke w/ Rossana in [facility], CTA needs moved to [facility]. [address] 12-06-2023 Hydration orders faxed,confirmed and scanned under Media Submitted auth request on [facility]. Pending # [id number] On all 3 calendars. [place] [address] I spoke w/ pt and dtr Shama re: need for POP/IV hydration for CTA. I spoke w/ Hiwot in [facility], they can accommodate pt on 12/11 @ 7. 8 hr IV hydration orders and pre op TAVR lab/CXR orders given to [facility] to fax. I called Radha Christiano in to arrange CTA, she will call me back to arrange CTA & once IV hydration orders are scanned. Agrees to TAVR date of 12/25/23 @ 9:15, [facility] notified to schedule/PA/snap board/calendars. Normal [facility] 36 Patient returned my call. No issues with Right radial cath site, cath performed by Dr. Garces in [place], I called to have images pushed to PACS and fax report w/ recent labs. Labs reviewed from [place], drawn 11/28/23 GFR 31 prior to cath. Teofilo Higgins CNP notified to review and advise if IV hydration is needed. [facility] 36 I spoke w/ Medina in Dr. Garces's office, confirmed [facility] completed, she will push images to PACS and fax report & lab results. I left vm message for dtr Shama to review pt status, discuss next steps BMP/CTA. [facility] 36on 12-05-2023 36 Chart note done. I faxed it and the EKG tracings to [phone]/[facility] [address] Dr. Huffman verbally notified. [facility] 36 Medina from [place] [facility] called requesting last OV note but PB has not finished yet. (11/22/23) [phone] They need the most recent EKG wave forms as well. Normal [facility] 36on 11-28-2023 36 Spoke w/ Juana @ [facility], cath scheduled for 12/04/23 w/ Dr. Garces. Normal [facility] ECG 12 lead - CLINIC PERFORM EDon 11-25-2023 Atrial fibrillation -Old anteroseptal infarct. -Diffuse nonspecific T-abnormality. ABNORMAL [facility] 36on 11-22-2023 36 Patient seen in Heart valve Clinic yesterday. Dr. Huffman spoke w/ Dr. Garces @ [facility], agreed for R/LHC to be done in [place]. I spoke w/ Maggie RN in Dr. Garces' office, asked her to call me back with cath date. Need to expedite TAVR due to pt symptoms, will need to coordinate CTA, pt does have CKD, last creat was 1.38 done 08/10 scanned in media. Normal [facility] Office Visiton 11-21-2023 Follow-up visit [id number] Brianne Call 1940 F Date Provider Department Center 11/21/2023 [id number]-JJTGNTHADDEUS STODDARD [facility] [address] No family history on file Level of Service:71101 CT OFFICE/OUTPATIENT NEW MODERATE MDM 45 MINUTES Reason for Visit and Comments: Shortness of Breath [220784] Normal [facility] Follow-up visit [id number] Brianne Call 1940 F Date Provider Department Center 11/21/2023 [id number]-XAJTCYJUAN REED [facility] [address] No family history on file Level of Service:41019 CT OFFICE/OUTPATIENT NEW HIGH MDM 60 MINUTES Reason for Visit and Comments: Cardiac Valve Problem [1334] Normal [facility] Follow-up visit [id number] Brianne Call 1940 F Date Provider Department Center 11/21/2023 [id number]-EHKCLWYLTMFSHARJEET HUFFMAN [facility] [address] No family history on file Level of Service:30666 CT OFFICE/OUTPATIENT NEW HIGH MDM 60 MINUTES Reason for Visit and Comments: Cardiac Valve Problem [1334] Normal [facility] PATINSon 11-21-2023 [facility] DISCHARGE INSTRUCTIONS: Follow-up with [facility] (phone: [phone] fax: [phone]) as needed for memory testing. Please BEGIN TO USE (or continue to use) your pillbox and have someone else (like a trusted friend or family member like your son Rajiv) look over your pillbox (AT LEAST ONCE A WEEK) to make sure you're taking what you are supposed to be taking and not doubling up or missing doses (which can be dangerous). I recommended the following to the patient: Daylight driving only. Only drive locally (10-15 miles of home). No highway driving unless perfect weather conditions (no rain/snow/ice/fog/et c). I recommended having someone else drive long-distances if any trips come up. Recommended patient always have access to charged cell phone while driving in case of emergency. Pt/family is encouraged to notify us and PCP (primary care provider) if/when any of the above warning signs appear for patient driving safety risk. REGARDING YOUR LOW HEART RATE: (heart rate was 58 today on ECG in our office). Please discuss with her cardiologists/PCP (primary care provider) regarding possibly need for change of meds or doses given your advanced age and increased risk of falls. Normal [facility] Progress Noteon 11-21-2023 Progress Note [facility] [address] [facility] [address] Dept: [phone] Dept Loc: [phone] Today's Visit Location: TAVR (transcather aortic valve replacement) Clinic [facility] [address] [place] [address] Visit type: Senior Health Assessment at TAVR (transcather aortic valve replacement) Clinic Visit Date: 11/21/2023 Reason for Visit: Shortness of Breath Assessment and Plan 1. Nonrheumatic aortic valve stenosis Assessment & Plan: S/p AV replacement by Dr. Nagy in 201209/22/23 Transthoracic Echo (TTE) noted severe aortic stenosis . Mean Gradient of 49. Dr. Garces in [place]. No aortic valve area mentioned. I agree with cardiology plan as discussed with museum exhibit technician Dr. Huffman and CTS Dr. Reed on same date regarding next steps for further workup/treatment of cardiac disease which likely includes heart cath +/- TAVR. On this date of evaluation, the patient has sufficient understanding of procedure(s) to consent to the procedure(s) being discussed and has adequate social support(s). 2. Chronic atrial fibrillation (HCC) Assessment & Plan: Chronic; Stable Asymptomatic May be nearing renal (kidney) dysfunction requiring reduced dose of eliquis (given Cr nearly 1.5 in past and patient's age >80 yo). May need eliquis 2.5mg po bid instead of 5mg po bid in future pending renal (kidney) function 3. Short-term memory loss Assessment & Plan: Chronic Patient with occasional word-finding difficulties I suspect either normal memory loss for aging or possibly MCI (Mild Cognitive Impairment) Patient has already named her Power of Supervisor [employer] Finances (Both are her daughter Shama López) I recommended patient follow-up with [facility] (phone: [phone] fax: [phone]) as needed for memory testing. 4. Drug-induced bradycardia Assessment & Plan: HR 58 bpm today but no syncope, presyncope, falls Patient asymptomatic today Patient taking lopressor 12.5mg po bid - I encouraged patient to discuss with her cardiologists/PCP (primary care provider) regarding change of meds given her advanced age and increased risk of falls 5. Polypharmacy Assessment & Plan: meds reviewed; appropriate May be nearing renal (kidney) dysfunction requiring reduced dose of eliquis (given Cr nearly 1.5 in past and patient's age >80 yo). May need eliquis 2.5mg po bid instead of 5mg po bid in future pending renal (kidney) function Has a pill organizing box at home. Uses it routinely. Fills meds on Saturdays for the whole week. No one looks over them. She doesn't miss her meds. - encouraged her to have someone like her son Rajiv who lives with patient to look over meds to ensure she's not missing or doubling up on meds Subjective HPI: Brianne Call is a 83 y.o. female who presents to TAVR (transcather aortic valve replacement) clinic for a combined geriatric/cardiac assessment. The patient is new to me. Patient had AV replacement (Dr. Nagy) in 2012. Recent heart failure (no hospitalization). Reduced EF 55% in 2020->30% on 09/22/23 Transthoracic Echo (TTE) noted severe aortic stenosis . Mean Gradient of 49. Dr. Garces in [place]. No aortic valve area mentioned. A fib on eliquis 5 bid; heart failure w reduced EF, Hypertension, HLD; (CKD) Chronic Kidney Disease (baseline Cr 1.48), morbid obesity, STS score is 17. Unable to walk due to dyspnea on exertion. Some conversational dyspnea today. Being pushed in a Wheelchair here today due to ALONSO. Lives independently with son. Accompanied by daughter Shmaa López today in valve clinic appt. Short-term memory loss - has been more forgetful with birthdays of family members over the last year or so. Has a pill organizing box at home. Uses it routinely. Fills meds on Saturdays for the whole week. No one looks over them. She doesn't miss her meds. TAVR Clinic Geriatrics Screening Tool: Presence of cognitive decline (yes=2 points, no=0 points) 2 Living alone with no help from partner/family (yes=1 point, no=0 points)0 - patient rents room from [facility]. Rajiv (son) lives w pt Reduce mobility or falls in the last 6 mos (yes=1 point, no=0 points) 0 Hospitalized in the last 3 mos (yes=1 point, no=0 points) 0 Polypharmacy (>5 medications daily) (yes=1 point, no=0 points)1 Total points: 3 History obtained from caregiver(s): daughter Shama López has noticed patient's increased shortness of breath about one month ago. No increased swelling of legs. No syncope. No falls. Examples of difficulties patient is experiencing: Increased dyspnea on exertion. History obtained from patient: Occasoinal word-finding difficulties noted by patient. Able to identify 11-18-: yes Current events: Does know current [place] President (Lawson Garay). What is the name of the recent virus/pandemic? Patient does know about COVID19 pandemic. Revi (more content not included)... Normal [facility] Progress Note HR 58 bpm today but no syncope, presyncope, falls Patient asymptomatic today Patient taking lopressor 12.5mg po bid - I encouraged patient to discuss with her cardiologists/PCP (primary care provider) regarding change of meds given her advanced age and increased risk of falls Normal [facility] Progress Note [facility]: Cardiothoracic Surgery Multidisciplinary Heart Valve Clinic Date: 11/21/23 Patient:Brianne Aguayoalisha 1940 83 y.o. female [id number] Subjective: HPI: Brianne Wells [place] [address] Garces is being evaluated for aortic valve stenosis. Echocardiogram completed on 09/22/2023 showed severe bioprosthetic aortic valve stenosis with peak/mean gradients 71/49 mm Hg. Per note, pt has PMH significant for permanent afib, aortic valve disease s/p replacement with a #25 Medtronic bioprosthetic valve in 2012 and HTN. Pt saw Cardiology on 11/08/23 with complaints of increasing SOB with exertion for about 2 months. Recent echocardiogram showed severe LV systolic dysfunction with EF of 30%, severe aortic valve stenosis. Medical History Past Medical History: Diagnosis Date Aortic stenosis Atrial fibrillation (HCC) Cataracts, bilateral CKD (chronic kidney disease) Congenital heart disease GERD (gastroesophageal reflux disease) Gout Heart failure with reduced ejection fraction (HCC) History of skin cancer Hyperlipidemia Hypertension Hypokalemia LVH (left ventricular hypertrophy) Morbid obesity (HCC) Osteoarthritis Vitamin D deficiency Blood thinner - Eliquis Transthoracic Echocardiogram 09/22/2023 Review of Systems Constitutional: Positive for activity change and fatigue. Negative for chills, diaphoresis and fever. HENT: Negative for [...] and headaches. Hematological: Does not bruise/bleed easily. Psychiatric/Behavior al: Negative for dysphoric mood. Allergies: Varun inhibitors, Lisinopril, Sacubitril, and Valsartan Past Medical History: has a past medical history of Aortic stenosis, Atrial fibrillation (HCC), Cataracts, bilateral, CKD (chronic kidney disease), Congenital heart disease, GERD (gastroesophageal reflux disease), Gout, Heart failure with reduced ejection fraction (HCC), History of skin cancer, Hyperlipidemia, Hypertension, Hypokalemia, LVH (left ventricular hypertrophy), Morbid obesity (HCC), Osteoarthritis, and Vitamin D deficiency. Past Surgical History: has a past surgical history that includes Appendectomy; Hysterectomy; and Cataract extraction. Social History: reports that she has never smoked. She has never used smokeless tobacco. She reports that she does not drink alcohol. Family History: family history is not on file. Medications: Prior to Admission medications Medication Sig Start Date End Date Taking? Authorizing Provider apixaban (Eliquis) 5 MG tablet Take 5 mg by mouth 2 times daily. Historical Provider, Farxiga 10 MG tablet Take 10 mg by mouth daily. 11/08/23 Historical Provider, febuxostat (Uloric) 40 MG tablet Take 40 mg by mouth daily. Historical Provider, furosemide (Lasix) 40 MG tablet Take 40 mg by mouth daily. 11/08/23 Historical Provider, hydroCHLOROthiazide (HYDRODiuril) 25 MG tablet Take 25 mg by mouth daily. Historical Provider, metoprolol tartrate (Lopressor) 25 MG tablet Take 12.5 mg by mouth 2 times daily. Historical Provider, pantoprazole (ProtoNix) 40 MG EC tablet Take 40 mg by mouth every morning (before breakfast). Do not crush, chew, or split. Historical Provider, potassium chloride CR (K-Tab) 20 MEQ ER tablet Take 20 mEq by mouth daily. Do not crush, chew, or split. Historical Provider, spironolactone (Aldactone) 25 MG tablet Take 25 mg by mouth daily. Historical Provider, Objective: BP 136/82 (BP Location: Left arm, Patient Position: Sitting, BP Cuff Size: Adult) Pulse 58 Ht 5' 2 (1.575 m) Wt 235 lb 14.3 oz (107 kg) SpO2 98% BMI 43.15 kg/m? Physical Exam Vitals: BP 136/82 (BP Location: Left arm, Patient Position: Sitting, BP Cuff Size: Adult) Pulse 58 Ht 5' 2 (1.575 m) Wt 235 lb 14.3 oz (107 kg) SpO2 98% BMI 43.15 kg/m? Constitutional: General: Not in acute distress. Appearance: Normal appearance. Not toxic-appearing. Ear, nose, mouth: Bilateral external ear and nose normal. Nose: Nose normal. Mouth: Appearance normal, no bleeding, moist mucus membranes Eyes: General: No scleral icterus. No discharge from bilateral eyes Extraocular Movements: Extraocular movements intact. Pupils equal and reactive b (more content not included)... Normal [facility] Progress Note Chronic Patient with occasional word-finding difficulties I suspect either normal memory loss for aging or possibly MCI (Mild Cognitive Impairment) Patient has already named her Power of Supervisor [employer] Finances (Both are her daughter Shama López) I recommended patient follow-up with [facility] (phone: [phone] fax: [phone]) as needed for memory testing. Normal [facility] Progress Note Chronic; Stable Asymptomatic May be nearing renal (kidney) dysfunction requiring reduced dose of eliquis (given Cr nearly 1.5 in past and patient's age >80 yo). May need eliquis 2.5mg po bid instead of 5mg po bid in future pending renal (kidney) function Normal [facility] Progress Note meds reviewed; appropriate May be nearing renal (kidney) dysfunction requiring reduced dose of eliquis (given Cr nearly 1.5 in past and patient's age >80 yo). May need eliquis 2.5mg po bid instead of 5mg po bid in future pending renal (kidney) function Has a pill organizing box at home. Uses it routinely. Fills meds on Saturdays for the whole week. No one looks over them. She doesn't miss her meds. - encouraged her to have someone like her son Rajiv who lives with patient to look over meds to ensure she's not missing or doubling up on meds Normal [facility] Progress Note S/p AV replacement by Dr. Nagy in 201209/22/23 Transthoracic Echo (TTE) noted severe aortic stenosis . Mean Gradient of 49. Dr. Garces in [place]. No aortic valve area mentioned. I agree with cardiology plan as discussed with museum exhibit technician Dr. Huffman and CTS Dr. Reed on same date regarding next steps for further workup/treatment of cardiac disease which likely includes heart cath +/- TAVR. On this date of evaluation, the patient has sufficient understanding of procedure(s) to consent to the procedure(s) being discussed and has adequate social support(s). Normal [facility] Progress Note [facility] [address] [facility] [address] Dept: [phone] Dept Visit type: New : 1940 Reason for Visit: Cardiac Valve Problem Assessment and Plan 1. LV dysfunction 2. Stenosis of prosthetic aortic valve, initial encounter - ECG 12 lead - CLINIC PERFORMED This is a very pleasant 83 y.o. 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 she is clearly in need of aortic valve replacement, likely [id number] TAVR. Will need a diagnostic cath first, to evaluate for concomitant coronary disease. Will get a CTA for anatomic planning. If favorable anatomy for transfemoral TAVR, will likely proceed with TAVR. This decision was made after multidisciplinary discussion, using a shared decision making strategy. CT surgery also saw patient to aide in discussion. It was a pleasure seeing your patient in the office today. Please do not hesitate to call me with any questions. Follow up for Recheck on cath complete. Sonya ANDRE Brianne Call is a very pleasant 83 y.o. female who is here for evaluation of her aortic valve disease. She had a bioprosthetic aortic valve replacement in 2012 with a 25mm Medtronic valve. She has done well since that time, but is starting to have symptoms. her symptoms include progressive dyspnea on exertion and fatigue. her most recent echo shows EF 30% with severe aortic stenosis. Mean aortic valve gradient 49mmHg. Review of Systems Constitutional: Positive for activity change. Negative for chills, diaphoresis, fatigue and fever. HENT: Negative [...] and headaches. Hematological: Does not bruise/bleed easily. Psychiatric/Behavior al: Negative for dysphoric mood. Allergies Allergen Reactions Varun Inhibitors Other Lisinopril Cough Sacubitril Cough Valsartan Cough Outpatient [...] tablet Take 25 mg by mouth daily. hydroCHLOROthiazide (HYDRODiuril) 25 MG tablet Take 25 mg by mouth daily. potassium chloride CR (K-Tab) 20 MEQ ER tablet Take 20 mEq by mouth daily. Do not crush, chew, or split. No facility-administere d medications prior to visit. Past Medical History: [...] Procedure Laterality Date APPENDECTOMY CATARACT EXTRACTION HYSTERECTOMY No family history on file. Objective Vitals: 11/21/23 1401 BP: 136/82 BP Location: Left arm Patient Position: Sitting BP Cuff Size: Adult Pulse: 58 SpO2: 98% Weight: 236 lb 12.8 oz (107 kg) Height: 5' 2 (1.575 m) Physical Exam Constitutional: General: She is not in acute distress. Appearance: She is not diaphoretic. HENT: Head: Normocephalic. Nose: Nose normal. Mouth/Throat: Mouth: Mucous membranes are moist. Pharynx: No oropharyngeal exudate. Eyes: General: No scleral icterus. Right eye: No discharge. Left eye: No discharge. Neck: Thyroid: No thyromegaly. Vascular: No carotid bruit or JVD. Cardiovascular: Rate and Rhythm: Normal rate and regular rhythm. Pulses: Normal pulses. Heart sounds: Murmur heard. Systolic murmur is present with a grade of 3/6. Pulmonary: Effort: Pulmonary (more content not included)... Normal [facility] Progress Noteon 11-17-2023 Progress Note Brianne Wells Mandeepgautam 83 y[address] Dr[address] Garces is being evaluated for aortic valve stenosis. Echocardiogram completed on 09/22/2023 showed severe bioprosthetic aortic valve stenosis with peak/mean gradients 71/49 mm Hg. Per note, pt has PMH significant for permanent afib, aortic valve disease s/p replacement with a #25 Medtronic bioprosthetic valve in 2012 and HTN. Pt saw Cardiology on 11/08/23 with complaints of increasing SOB with exertion for about 2 months. Recent echocardiogram showed severe LV systolic dysfunction with EF of 30%, severe aortic valve stenosis. Past Medical History: Diagnosis Date Aortic stenosis Atrial fibrillation (HCC) Cataracts, bilateral CKD (chronic kidney disease) Congenital heart disease GERD (gastroesophageal reflux disease) Gout Heart failure with reduced ejection fraction (HCC) History of skin cancer Hyperlipidemia Hypertension Hypokalemia LVH (left ventricular hypertrophy) Morbid obesity (HCC) Osteoarthritis Vitamin D deficiency Blood thinner - Eliquis Transthoracic Echocardiogram 09/22/2023 Normal [facility] Office Visiton 01-04-2017 Dietary management education, guidance, and counseling (procedure) yes Invalid Interpretation Code [facility] Work Phone: Documentation of current medications (procedure) Done Invalid Interpretation Code [facility] Work Phone: Tobacco use [facility] Never smoker Invalid Interpretation Code [facility] Work Phone: Office Visit: [facility] 12-30-19 Documentation of current medications (procedure) Done Invalid Interpretation Code [facility] Work Phone: Fall risk assessment No Invalid Interpretation Code [facility] Work Phone: Protein mass conc Done Invalid Interpretation Code [facility] Work Phone: Office Visiton 09-28-2016 Dietary management education, guidance, and counseling (procedure) yes Invalid Interpretation Code [facility] Work Phone: Documentation of current medications (procedure) Done Invalid Interpretation Code [facility] Work Phone: Tobacco smoking status NHIS Never smoker Invalid Interpretation Code [facility] Work Phone: Tobacco use [facility] Never smoker Invalid Interpretation Code [facility] Work Phone: Office Visiton 06-29-2016 Dietary management education, guidance, and counseling (procedure) yes Invalid Interpretation Code [facility] Work Phone: Documentation of current medications (procedure) Done Invalid Interpretation Code [facility] Work Phone: Tobacco use [facility] Never smoker Invalid Interpretation Code [facility] Work Phone: Clinical Lists Update: Prelo animal husbandry manager 11-18-2015 Left ventricular Ejection fraction 65 % Invalid Interpretation Code [facility] Work Phone: Lab Report: Lipid Profileon 11-12-2015 Cholesterol 194 mg/dL Invalid Interpretation Code 200 [facility] Work Phone: HDL Cholesterol 45 mg/dL Invalid Interpretation Code [facility] Work Phone: LDL Cholesterol 123 mg/dL Invalid Interpretation Code 0-130 [facility] Work Phone: Triglyceride 132 mg/dL Invalid Interpretation Code [facility] Work Phone: very low density lipoproteins 26 mg/dL Invalid Interpretation Code 5-40 [facility] Work Phone: Lab Report: Liver Profileon 11-12-2015 Alanine aminotransferase (ALT) 19 U/L Invalid Interpretation Code 12-78 [facility] Work Phone: Albumin 3.6 g/dL Invalid Interpretation Code 3.4-5.[address] [facility] Work Phone: Alkaline phosphatase (ALP) 72 U/L Invalid Interpretation Code 50-136 [facility] Work Phone: ALP enzyme act/vol (Bld) 72 U/L Invalid Interpretation Code 50-136 [facility] Work Phone: Aspartate aminotransferase (AST) 17 U/L Invalid Interpretation Code 15-37 [facility] Work Phone: Bilirubin (direct) 0.17 mg/dL Invalid Interpretation Code 0.00-0.30 [facility] Work Phone: Bilirubin (total) 0.90 mg/dL Invalid Interpretation Code 0.20-1.[address] [facility] Work Phone: Globulin 3.7 g/dL High 2.3-3.[address] [facility] Work Phone: Protein 7.3 g/dL Invalid Interpretation Code 6.4-8.[address] [facility] Work Phone: Vital Signs Date Time Vital Sign Value Performing Clinician Faci [facility] 12-26-2023 11:34-0400 Body temperature 96.49 [degF] Harjeet Huffman MD Work Phone: [facility] 12-26-2023 11:34-0400 Diastolic blood pressure 82 mm[Hg] Harjeet Huffman MD Work Phone: [facility] 12-26-2023 11:34-0400 Heart rate 87 /min Harjeet Huffman MD Work Phone: [facility] 12-26-2023 11:34-0400 Respiratory rate 22 /min Harjeet Huffman MD Work Phone: [facility] 12-26-2023 11:34-0400 SaO2% (BldA) [Mass fraction] 98 % Harjeet Huffman MD Work Phone: [facility] 12-26-2023 11:34-0400 Systolic blood pressure 148 mm[Hg] Harjeet Huffman MD Work Phone: [facility] 12-26-2023 09:27-0400 Body height 157.5 cm Harjeet Huffman MD Work Phone: [facility] [employer] 12-26-2023 09:27-0400 Body mass index (BMI) [Ratio] 45.91 kg/m2 Harjeet Huffman MD Work Phone: [facility] [employer] 12-26-2023 09:27-0400 Body weight 113.85 kg Harjeet Huffman MD Work Phone: [facility] [employer] 12-12-2023 13:57-0400 Diastolic blood pressure 76 mm[Hg] Ach Pop [facility] [employer] 12-12-2023 13:57-0400 Heart rate 73 /min Ach Pop [employer] 12-12-2023 13:57-0400 Respiratory rate 18 /min Ach Pop [facility] [employer] 12-12-2023 13:57-0400 Systolic blood pressure 128 mm[Hg] Ach Pop [employer] 12-12-2023 12:30-0400 Body temperature 96.8 [degF] Arlene Higgins WAITER/[employer] Work Phone: [facility] [employer] 12-12-2023 12:30-0400 Diastolic blood pressure 64 mm[Hg] Arlene Higgins WAITER/[employer] Work Phone: [facility] [employer] 12-12-2023 12:30-0400 Heart rate 50 /min Arlene Higgins WAITER/[employer] Work Phone: [facility] [employer] 12-12-2023 12:30-0400 Respiratory rate 18 /min Arlene Higgins WAITER/[employer] Work Phone: [facility] [employer] 12-12-2023 12:30-0400 Systolic blood pressure 113 mm[Hg] Arlene Higgins WAITER/[employer] Work Phone: [facility] [employer] 12-12-2023 07:34-0400 Body temperature 97 [degF] Ach HouseCall [facility] [employer] 11-21-2023 14:17-0400 Body height 157.5 cm Juan Reed DO Work Phone: [employer] 11-21-2023 14:17-0400 Body mass index (BMI) [Ratio] 43.15 kg/m2 Juan Reed DO Work Phone: [employer] 11-21-2023 14:17-0400 Body weight 107 kg Juan Reed DO Work Phone: [facility] [employer] 11-21-2023 14:17-0400 Diastolic blood pressure 82 mm[Hg] Juan Reed DO Work Phone: [facility] [employer] 11-21-2023 14:17-0400 Heart rate 58 /min Juan Reed DO Work Phone: [facility] [employer] 11-21-2023 14:17-0400 SaO2% (BldA) [Mass fraction] 98 % Juan Reed DO Work Phone: [facility] [employer] 11-21-2023 14:17-0400 Systolic blood pressure 136 mm[Hg] Juan Reed DO Work Phone: [facility] [employer] 11-21-2023 14:01-0400 Body height 157.5 cm Harjeet Huffman MD Work Phone: [facility] [employer] 11-21-2023 14:01-0400 Body mass index (BMI) [Ratio] 43.31 kg/m2 Harjeet Huffman MD Work Phone: [facility] [employer] 11-21-2023 14:01-0400 Body weight 107.41 kg Harjeet Huffman MD Work Phone: [facility] [employer] 11-21-2023 14:01-0400 Diastolic blood pressure 82 mm[Hg] Harjeet Huffman MD Work Phone: [facility] [employer] 11-21-2023 14:01-0400 Heart rate 58 /min Harjeet Huffman MD Work Phone: [facility] [employer] 11-21-2023 14:01-0400 SaO2% (BldA) [Mass fraction] 98 % Harjeet Huffman MD Work Phone: [facility] [employer] 11-21-2023 14:01-0400 Systolic blood pressure 136 mm[Hg] Harjeet Huffman MD Work Phone: [facility] [employer] 12-29-2016 10:24-0400 BMI (Body Mass Index) 38.01 kg/m2 Shelly Ahuja [facility] Work Phone: 12-29-2016 10:24-0400 BP Diastolic 80 mm[Hg] [facility] Work Phone: 12-29-2016 10:24-0400 BP Systolic 128 mm[Hg] [facility] Work Phone: 12-29-2016 10:24-0400 Height 161.29 cm [facility] Work Phone: 12-29-2016 10:24-0400 Pulse (Heart Rate) 72 /min [facility] Work Phone: 12-29-2016 10:24-0400 Respiratory Rate 20 /min [facility] Work Phone: 12-29-2016 10:24-0400 Weight 98.88 kg [facility] Work Phone: 05-26-2016 14:01-0500 BMI (Body Mass Index) 37.83 kg/m2 [facility] Work Phone: 05-26-2016 14:01-0500 BP Diastolic 76 mm[Hg] [facility] Work Phone: 05-26-2016 14:01-0500 BP Systolic 144 mm[Hg] [facility] Work Phone: 05-26-2016 14:01-0500 Height 161.29 cm [facility] Work Phone: 05-26-2016 14:01-0500 Pulse (Heart Rate) 76 /min [facility] Work Phone: 05-26-2016 14:01-0500 Respiratory Rate 18 /min [facility] Work Phone: 05-26-2016 14:01-0500 Weight 98.43 kg Paige Singer [facility] Work Phone: 11-10-2015 14:49-0400 BSA (Body Surface Area) 2.03 m2 [facility] [facility] Work Phone: Encounters Encounter Date Encounter Type Care Provider Facility Start: 12-25-2023 End: 12-26-2023 [facility] and management [facility] Comment on above: Severe aortic stenos is (Primary Dx); Nonrheumatic aortic valve stenosis Start: 12-22-2023 End: 12-22-2023 ambulatory Arlene Higgins WAITER/WAITRESS BAR - [employer] Work Phone: [facility] Comment on above: Severe aortic stenos is (Primary Dx) Start: 12-12-2023 End: 12-12-2023 Office outpatient visit 25 minutes Mónica David APRN [employer] Work Phone: [facility] Comment on above: Chronic atrial fibri llation (HCC) (Primary Dx); Nonrheumatic aortic valve stenosis; Adverse effect of contrast media, initial encounter Start: 12-12-2023 End: 12-12-2023 Subsequent hospital visit by physician Arlene Higgins APRN - SEC[employer]ITY [employer]OVER Work Phone: [facility] Comment on above: Nonrheumatic aortic valve stenosis Start: 12-12-2023 End: 12-12-2023 ambulatory Harjeet Huffman MD Work Phone: [facility] Comment on above: Renal failure, unspe cified chronicity; Stenosis of prosthetic aortic valve, initial encounter Start: 11-21-2023 End: 11-21-2023 Office outpatient new 45 minutes Thaddeus Stoddard MD Work Phone: [facility] [employer] [facility] Comment on above: Nonrheumatic aortic valve stenosis (Primary Dx); Chronic atrial fibrillation (HCC); Short-term memory loss; Drug-induced bradycardia; Polypharmacy Start: 11-21-2023 End: 11-21-2023 Office outpatient new 60 minutes Juan Reed DO Work Phone: [facility] Comment on above: Stenosis of prosthet ic aortic valve, initial encounter (Primary Dx) LV dysfunction (Prim logan Dx); Stenosis of prosthetic aortic valve, initial encounter Start: 11-21-2023 End: 11-21-2023 ambulatory PadinmotionEULOGIO KURTIS [facility] Procedures Date Procedure Procedure Detail Performing Clinician Start: 12-26-2023 TTE w or wo fol wcon,Doppler Mónica David WAITER/WAITRESS BAR - [employer] Work Phone: Start: 12-26-2023 Ecg routine ecg w/le ast 12 lds trcg only w/o i&r Mónica David WAITER/WAITRESS BAR - [employer] Work Phone: Start: 12-26-2023 Basic metabolic pane l calcium total Mónica David WAITER/WAITRESS BAR - [employer] Work Phone: Start: 12-25-2023 Echo transthorc r-t 2d w/wo m-mode rec f-up/lmtd Harjeet Huffman MD Work Phone: Start: 12-25-2023 Basic metabolic pane l calcium total Mónica David WAITER/WAITRESS BAR - [employer] Work Phone: Start: 12-25-2023 Ecg routine ecg w/le ast 12 lds trcg only w/o i&r Mónica David WAITER/WAITRESS BAR - [employer] Work Phone: Start: 12-25-2023 OXYGEN THERAPY Mónica David WAITER/WAITRESS BAR - [employer] Work Phone: Start: 12-25-2023 Cardiac catheterizat ion study Harjeet Huffman MD Work Phone: Start: 12-25-2023 Antibody screen ALVARADO GALLAGHER Comment on above: Performed By: #### L [id number] ####Machine Cloth Examiner: AIDE RUEDA ([id number])[facility] ([facility])[address] [place] [address] Start: 12-25-2023 End: 12-25-2023 Blood typing serologic rh (d) Tien Cornell MD Work Phone: Start: 12-25-2023 End: 12-25-2023 TRANSCATHETER AORTIC VALVE REPLACEMENT (TAVR) - OR Tien Cornell MD Work Phone: Start: 12-12-2023 Antibody screen SCOTT-EULOGIO GALLAGHER Comment on above: Performed By: #### L [id number] ####Machine Cloth Examiner: AIDE RUEDA ([id number])[facility] ([facility])[address] [place] [address] Start: 12-12-2023 Blood typing serologic abo Harjeet Huffman MD Work Phone: Start: 12-12-2023 Comprehensive metabo lic panel Harjeet Huffman MD Work Phone: Start: 11-25-2023 Ecg routine ecg w/le ast 12 lds w/i&r Harjeet Huffman MD Work Phone: Start: 01-05-2017 End: 01-09-2017 Nuclear stress test -Lexiscan Mónica Gutierrez PA-C Work Phone: Start: 01-04-2017 End: 01-16-2017 Arthrocentesis aspir&/inj major jt/bursa w/o us Sukh Raya Work Phone: Start: 01-03-2017 End: 01-09-2017 Nuclear stress test -exercise Mónica Gutierrez PA-C Work Phone: Start: 12-29-2016 End: 12-29-2016 DJN Mónica Gutierrez PA-C Work Phone: Start: 12-29-2016 End: 01-09-2017 Echocardiography Mónica Gutierrez PA-C Work Phone: Start: 12-29-2016 End: 12-29-2016 Follow Up Appt 6 months Mónica shahid PA-C Work Phone: Start: 09-28-2016 End: 10-12-2016 Arthrocentesis aspir&/inj major jt/bursa w/o us Sukh Raya Work Phone: Start: 09-28-2016 End: 09-28-2016 Dietary management education, guidance, and counseling Mónica Gutierrez PA-C Start: 09-28-2016 End: 10-12-2016 Drain/inject, joint/bursa Sukh S Elver Work Phone: Start: 06-29-2016 End: 07-11-2016 Arthrocentesis aspir&/inj major jt/bursa w/o us Sukh S Elver Work Phone: Start: 06-29-2016 End: 07-11-2016 Drain/inject, joint/bursa Sukh S Elver Work Phone: Start: 05-26-2016 End: 05-26-2016 ERIC Barragan MD Work Phone: Start: 05-26-2016 End: 05-26-2016 Follow Up Appt 6 months Gerald Barragan MD Work Phone: Start: 05-26-2016 End: 05-26-2016 ERIC Barragan MD Work Phone: Start: 05-26-2016 End: 05-26-2016 Follow Up Appt 6 months eGrald Barragan MD Work Phone: Start: 04-07-2016 End: 04-14-2016 Arthrocentesis aspir&/inj major jt/bursa w/o us Sukh S Elver Work Phone: Start: 04-07-2016 End: 04-14-2016 Drain/inject, joint/bursa Sukh S Elver Work Phone: Start: 11-10-2015 End: 11-12-2015 *Hepatic Function Panel Gerald Barragan MD Work Phone: Start: 11-10-2015 End: 05-20-2016 ERIC Barragan MD Work Phone: Start: 11-10-2015 End: 11-18-2015 Shannan Barragan MD Work Phone: Start: 11-10-2015 End: 05-20-2016 Follow Up Appt 6 months Gerald Barragan MD Work Phone: Start: 11-10-2015 End: 11-12-2015 Lipid 1996 panel - Serum or Plasma Gerald Barragan MD Work Phone: Start: 11-10-2015 End: 11-12-2015 *Hepatic Function Panel Gerald Barragan MD Work Phone: Start: 11-10-2015 End: 05-20-2016 DJN Gerald Barragan MD Work Phone: Start: 11-10-2015 End: 11-18-2015 Echocardiography Gerald Barragan MD Work Phone: Start: 11-10-2015 End: 05-20-2016 Follow Up Appt 6 months Gerald Barragan MD Work Phone: Start: 11-10-2015 End: 11-12-2015 Lipid panel [AGGREGATE] Gerald Barragan MD Work Phone: Start: 11-06-2015 Replacement of aorti c valve Aortic valve replacement Mónica Gutierrez PA-C Plan of Treatment Date Care Activity Detail Author Start: 12-21-2026 DTaP/Tdap/Td Vaccines (2 - Td or Tdap) DTaP/Tdap/Td Vaccines (2 - Td or Tdap) [facility] Start: 01-04-2024 End: 01-04-2024 Patient encounter procedure 01/04/2024 12:00 PM EDT Office Visit [facility] [address] [place] [id number] Mónica David, WAITER/WAITRESS BAR - [employer] [address] [place] [address] [facility] Start: 12-25-2023 End: 12-25-2023 Admission to same day surgery center 12/25/2023 9:15 AM EDT - 12/25/2023 11:00 AM EDT Surgery [facility] OR [address] [place] [id number] Harjeet Huffman MD [address] [place] [address] TRANSCATHETER AORTIC VALVE REPLACEMENT, TRANSTHORACIC ECHOCARDIOGRAM [facility] Comment on above: TRANSCATHETER AORTIC VALVE REPLACEMENT, TRANSTHORACIC ECHOCARDIOGRAM Start: 12-25-2023 End: 12-25-2023 Anesthesia consultation 12/25/2023 9:15 AM EDT Anesthesia Event [facility] [address] [place] [address] Carolina Waldron, WAITER/WAITRESS BAR - SEC[employer]ITY [employer]OVER [facility] [address] [place], [place] [id number] [facility] Start: 12-25-2023 Subsequent hospital visit by physician 12/25/2023 9:15 AM EDT Hospital Encounter [facility] [address] [place] [address] Harjeet Huffman MD [address] [place] [address] [address] [place], [place] [id number] Nonrheumatic aortic valve stenosis [facility] Comment on above: Nonrheumatic aortic valve stenosis Start: 12-25-2023 End: 12-25-2023 TRANSCATHETER AORTIC VALVE REPLACEMENT (TAVR) - OR TRANSCATHETER AORTIC VALVE REPLACEMENT (TAVR) - OR Nonrheumatic aortic valve stenosis 12/25/2023 9:15 AM EDT [facility] Start: 11-19-2023 COVID-19 Vaccine ( season) COVID-19 Vaccine ( season) [facility] Start: 11-19-2023 Influenza vaccination Influenza Vaccine (#1) [facility] Start: 03-20-2023 Medicare Advantage Annual Wellness Visit Medicare Advantage Annual Wellness Visit [facility] Start: 11-09-2020 Lipid panel Lipid Panel [facility] Start: 07-10-2017 End: 07-10-2017 Appointment Appointment [employer] Work Phone: Start: 01-05-2017 End: 01-09-2017 Nuclear stress test -Lexiscan Nuclear stress test -Lexiscan [facility] Work Phone: Start: 01-04-2017 End: 01-04-2017 Appointment Appointment [facility] Work Phone: Start: 01-03-2017 End: 01-05-2017 Nuclear stress test -exercise Nuclear stress test -exercise [facility] Work Phone: Start: 12-29-2016 End: 12-29-2016 ERIC REYES [facility] Work Phone: Start: 12-29-2016 End: 12-29-2016 Echocardiography Echocardiogram (complete) [facility] Work Phone: Start: 12-29-2016 End: 12-29-2016 Follow Up Appt 6 months Follow Up Appt 6 months [facility] Work Phone: Start: 12-29-2016 End: 12-29-2016 Nuclear stress test -exercise Nuclear stress test -exercise [facility] Work Phone: Start: 12-29-2016 End: 12-29-2016 Appointment Appointment [facility] Work Phone: Start: 12-15-2016 End: 12-15-2016 Appointment Appointment [facility] Work Phone: Start: 11-11-2016 End: 11-18-2015 *Hepatic Function Panel *Hepatic Function Panel [facility] Work Phone: Start: 11-11-2016 End: 11-18-2015 Lipid panel [AGGREGATE] *Lipid Profile CC PCP [facility] Work Phone: Start: 11-11-2016 End: 11-18-2015 *Hepatic Function Panel *Hepatic Function Panel [facility] Work Phone: Start: 11-11-2016 End: 11-18-2015 Lipid panel [AGGREGATE] *Lipid Profile CC PCP [facility] Work Phone: Start: 09-28-2016 End: 09-28-2016 Appointment Appointment [facility] Work Phone: Start: 05-26-2016 End: 05-26-2016 ERIC REYES [facility] Work Phone: Start: 05-26-2016 End: 05-26-2016 Follow Up Appt 6 months Follow Up Appt 6 months [facility] Work Phone: Start: 05-26-2016 End: 05-26-2016 ERIC REYES [facility] Work Phone: Start: 05-26-2016 End: 05-26-2016 Follow Up Appt 6 months Follow Up Appt 6 months [facility] Work Phone: Start: 11-10-2015 End: 11-12-2015 *Hepatic Function Panel *Hepatic Function Panel [facility] Work Phone: Start: 11-10-2015 End: 05-20-2016 ERIC REYES [facility] Work Phone: Start: 11-10-2015 End: 11-10-2015 Echocardiography Echocardiogram (complete) [facility] Work Phone: Start: 11-10-2015 End: 11-10-2015 Follow Up Appt 6 months Follow Up Appt 6 months [facility] Work Phone: Start: 11-10-2015 End: 11-12-2015 Lipid panel [AGGREGATE] *Lipid Profile CC PCP [facility] Work Phone: Start: 11-10-2015 End: 11-12-2015 *Hepatic Function Panel *Hepatic Function Panel [facility] Work Phone: Start: 11-10-2015 End: 05-20-2016 ERIC REYES [facility] Work Phone: Start: 11-10-2015 End: 11-10-2015 Echocardiography Echocardiogram (complete) [facility] Work Phone: Start: 11-10-2015 End: 11-10-2015 Follow Up Appt 6 months Follow Up Appt 6 months [facility] Work Phone: Start: 11-10-2015 End: 11-12-2015 Lipid panel [AGGREGATE] *Lipid Profile CC [facility]CP [facility] Work Phone: Start: 1952 Depression Screening Depression Screening [facility] Start: 1940 Lipid panel Lipid Panel [facility] Start: 1940 Screening for osteoporosis Bone Density Scan [facility] End: 12-12-2023 CT Chest WO and CT angiogram Coronary arteries W contrast IV [facility] [employer] Work Phone: Comment on above: Once for 1 Occurrences starting 12/12/19 until 12/12/2023 Patient Education [facility] Work Phone: Immunizations Immunization Date Immunization Notes Care Provider Fa cili 01-05-2023 influenza virus vacc ine, unspecified formulation Thaddeus Stoddard MD Work Phone: [facility] Payers Date Payer Category Payer Medicare [employer] [id number] 2023-Present [address] [place] [address] Medicare HMO [id number] 2023 Medicare [id number] Social History Date Type Detail Facility Start: 2023 Tobacco smoking status NHIS Never sm oked tobacco [facility] Start: 2023 Tobacco use and exposure Smokeless t obacco non-user [facility] Start: 11-21-2023 End: 12-26-2023 Alcoholic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 on the day of the visit. In addition, that total time includes the following: -Obtaining and/or reviewing separately obtained history, -Communicating results to the patient/family/caregiver, -Counseling/educating the patient/family/caregiver, -Documenting clinical information in the patients electronic record, and -Coordination of care for the patient (Please note: Portions of this note were completed with a voice recognition program. Efforts were made to edit the dictations but occasionally words and phrases are mis-transcribed.) documented in this encounter [facility] 11-21-2023 Instructions Thaddeus Stoddard MD - 11/21/2023 3:30 PM EDT GERIATRICS DISCHARGE INSTRUCTIONS: Follow-up with [facility] (phone: [phone] fax: [phone]) as needed for memory testing. Please BEGIN TO USE (or continue to use) your pillbox and have someone else (like a trusted friend or family member like your son Rajiv) look over your pillbox (AT LEAST ONCE A WEEK) to make sure you're taking what you are supposed to be taking and not doubling up or missing doses (which can be dangerous). I recommended the following to the patient: Daylight driving only. Only drive locally (10-15 miles of home). No highway driving unless perfect weather conditions (no rain/snow/ice/fog/etc). I recommended having someone else drive long-distances if any trips come up. Recommended patient always have access to charged cell phone while driving in case of emergency. Pt/family is encouraged to notify us and PCP (primary care provider) if/when any of the above warning signs appear for patient driving safety risk. REGARDING YOUR LOW HEART RATE: (heart rate was 58 today on ECG in our office). Please discuss with her cardiologists/PCP (primary care provider) regarding possibly need for change of meds or doses given your advanced age and increased risk of falls. documented in this encounter [facility] 11-21-2023 Evaluation + Plan note Associated Problem(s): Drug-induced bradycardia HR 58 bpm today but no syncope, presyncope, falls Patient asymptomatic today Patient taking lopressor 12.5mg po bid - I encouraged patient to discuss with her cardiologists/PCP (primary care provider) regarding change of meds given her advanced age and increased risk of falls [facility] 11-21-2023 Miscellaneous Notes Associated Problem(s): Drug-induced bradycardia HR 58 bpm today but no syncope, presyncope, falls Patient asymptomatic today Patient taking lopressor 12.5mg po bid - I encouraged patient to discuss with her cardiologists/PCP (primary care provider) regarding change of meds given her advanced age and increased risk of falls Associated Problem(s): Short-term memory loss Chronic Patient with occasional word-finding difficulties I suspect either normal memory loss for aging or possibly MCI (Mild Cognitive Impairment) Patient has already named her Power of Supervisor [employer] for Healthcare and Finances (Both are her daughter Shama López) I recommended patient follow-up with [facility] (phone: [phone] fax: [phone]) as needed for memory testing. Associated Problem(s): Chronic atrial fibrillation (HCC) Chronic; Stable Asymptomatic May be nearing renal (kidney) dysfunction requiring reduced dose of eliquis (given Cr nearly 1.5 in past and patient's age >80 yo). May need eliquis 2.5mg po bid instead of 5mg po bid in future pending renal (kidney) function Associated Problem(s): Polypharmacy meds reviewed; appropriate May be nearing renal (kidney) dysfunction requiring reduced dose of eliquis (given Cr nearly 1.5 in past and patient's age >80 yo). May need eliquis 2.5mg po bid instead of 5mg po bid in future pending renal (kidney) function Has a pill organizing box at home. Uses it routinely. Fills meds on Saturdays for the whole week. No one looks over them. She doesn't miss her meds. - encouraged her to have someone like her son Rajiv who lives with patient to look over meds to ensure she's not missing or doubling up on meds Associated Problem(s): Nonrheumatic aortic valve stenosis S/p AV replacement by Dr. Nagy in 201209/22/23 Transthoracic Echo (TTE) noted severe aortic stenosis . Mean Gradient of 49. Dr. Garces in [place]. No aortic valve area mentioned. I agree with cardiology plan as discussed with museum exhibit technician Dr. Huffman and CTS Dr. Reed on same date regarding next steps for further workup/treatment of cardiac disease which likely includes heart cath +/- TAVR. On this date of evaluation, the patient has sufficient understanding of procedure(s) to consent to the procedure(s) being discussed and has adequate social support(s). documented in this encounter [facility] [employer] 11-21-2023 History of Presen t illness Narrative Images from the original note were not included. [facility]: Cardiothoracic Surgery Multidisciplinary Heart Valve Clinic Date: 11/21/23 Patient:Brianne Call 1940 83 y.o. female [id number] Subjective: HPI: Brianne Call [address] Garces is being evaluated for aortic valve stenosis. Echocardiogram completed on 09/22/2023 showed severe bioprosthetic aortic valve stenosis with peak/mean gradients 71/49 mm Hg. Per note, pt has PMH significant for permanent afib, aortic valve disease s/p replacement with a #25 [employer]onic bioprosthetic valve in 2012 and HTN. Pt saw Cardiology on 11/08/23 with complaints of increasing SOB with exertion for about 2 months. Recent echocardiogram showed severe LV systolic dysfunction with EF of 30%, severe aortic valve stenosis. Medical History Past Medical History: Diagnosis Date Aortic stenosis Atrial fibrillation (HCC) Cataracts, bilateral CKD (chronic kidney disease) Congenital heart disease GERD (gastroesophageal reflux disease) Gout Heart failure with reduced ejection fraction (HCC) History of skin cancer Hyperlipidemia Hypertension Hypokalemia LVH (left ventricular hypertrophy) Morbid obesity (HCC) Osteoarthritis Vitamin D deficiency Blood thinner - Eliquis Transthoracic Echocardiogram 09/22/2023 Review of Systems Constitutional: Positive for activity change and fatigue. Negative for chills, diaphoresis and fever. HENT: Negative for [...] bruise/bleed easily. Psychiatric/Behavioral: Negative for dysphoric mood. Allergies: Varun inhibitors, Lisinopril, Sacubitril, and Valsartan Past Medical History: has a past medical history of Aortic stenosis, Atrial fibrillation (HCC), Cataracts, bilateral, CKD (chronic kidney disease), Congenital heart disease, GERD (gastroesophageal reflux disease), Gout, Heart failure with reduced ejection fraction (HCC), History of skin cancer, Hyperlipidemia, Hypertension, Hypokalemia, LVH (left ventricular hypertrophy), Morbid obesity (HCC), Osteoarthritis, and Vitamin D deficiency. Past Surgical History: has a past surgical history that includes Appendectomy; Hysterectomy; and Cataract extraction. Social History: reports that she has never smoked. She has never used smokeless tobacco. She reports that she does not drink alcohol. Family History: family history is not on file. Medications: Prior to Admission medications Medication Sig Start Date End Date Taking? Authorizing Provider apixaban (Eliquis) 5 MG tablet Take 5 mg by mouth 2 times daily. Historical Provider, Farxiga 10 MG tablet Take 10 mg by mouth daily. 11/08/23 Historical Provider, febuxostat (Uloric) 40 MG tablet Take 40 mg by mouth daily. Historical Provider, furosemide (Lasix) 40 MG tablet Take 40 mg by mouth daily. 11/08/23 Historical Provider, hydroCHLOROthiazide (HYDRODiuril) 25 MG tablet Take 25 mg by mouth daily. Historical Provider, metoprolol tartrate (Lopressor) 25 MG tablet Take 12.5 mg by mouth 2 times daily. Historical Provider, pantoprazole (ProtoNix) 40 MG EC tablet Take 40 mg by mouth every morning (before breakfast). Do not crush, chew, or split. Historical Provider, potassium chloride CR (K-Tab) 20 MEQ ER tablet Take 20 mEq by mouth daily. Do not crush, chew, or split. Historical Provider, spironolactone (Aldactone) 25 MG tablet Take 25 mg by mouth daily. Historical Provider, Objective: BP 136/82 (BP Location: Left arm, Patient Position: Sitting, BP Cuff Size: Adult) Pulse 58 Ht 5' 2 (1.575 m) Wt 235 lb 14.3 oz (107 kg) SpO2 98% BMI 43.15 kg/m Physical Exam Vitals: BP 136/82 (BP Location: Left arm, Patient Position: Sitting, BP Cuff Size: Adult) Pulse 58 Ht 5' 2 (1.575 m) Wt 235 lb 14.3 oz (107 kg) SpO2 98% BMI 43.15 kg/m Constitutional: General: Not in acute distress. Appearance: Normal appearance. Not toxic-appearing. Ear, nose, mouth: Bilateral external ear and nose normal. Nose: Nose normal. Mouth: Appearance normal, no bleeding, moist mucus membranes Eyes: General: No scleral icterus. No discharge from bilateral eyes Extraocular Movements: Extraocular movements intact. Pupils equal and reactive bilaterally Cardiovascular: Heart: Regular rhythm. +murmur. Vascular: No carotid bruit. + radiation to bilateral carotids Edema: + edema in bilateral lower extremities Pulmonary: Effort: Pulmonary effort is normal. No respiratory distress. Breath sounds: Normal breath sounds. No wheezing. Chest wall: No tenderness. Abdominal: Appearance: Not distended Palpations: There is no abdominal tenderness, no guarding. Musculoskeletal: Bilateral upper and lower extremities: Normal range of motion, no deformity Head: Normocephalic and atraumatic. Neck: Normal range of motion and neck supple. No muscular tenderness. Lymphadenopathy: Cervical: No cervical adenopathy. Skin: General: Skin is warm and dry. Coloration: Skin is not jaundiced. Neurological: General: No focal deficit present. Cranial Nerves: No obvious cranial nerve deficit. Psychiatric: Mood and Affect: Mood normal. Thought Content: Thought content normal. Patient has good judgement and insight Mental Status: Alert and oriented to place, person, and time. Labs: Reviewed in EMR No results found for: WBC , HGB , HCT , MCV , PLT No results found for: NA , K , CL , CO2 , BUN , CREATININE , GLUCOSE , CALCIUM Diagnostics: Reviewed in EMR Assessment/Plan: Mrs. Call is a pleasant 83 year old female who is seen with family today in valve clinic. They have known aortic stenosis which has progressed to severe and are now having increased symptoms. They would benefit both in quantity and quality of life with a valve replacement. The procedural details as well as risks, benefits and alteratives were discussed with them. They would not pursue if this required open heart surgery primarily but are interested in percutaneous options. This is very reasonable given their age, functional status and comorbidities. They are open to surgical salvage if the unlikely need arose. The patient and her families questions were answered to their satisfaction and they would like to proceed toward TAVR. Plan for LHC and CTA TAVR in near future with subsequent discussion at multidisciplinary conference and TAVR in the near future. Given her proximity to [facility], she would prefer LHC performed there. We will work to coordinate this for her convenience. Patient consents to surgical bailout: [x] Yes [] No If No why: ATTESTATION I personally performed the evaluation and management of Brianne Call in the development of a treatment plan for this patient. I personally interviewed the patient and performed an individual physical examination. In addition, I discussed the patient's condition and treatment options with them. I have also reviewed and agree with the past medical, family and social history unless otherwise noted. All of the patient's questions were answered. I personally spent 60 minutes of time between the face to face encounter, physical exam, reviewing the medical history, coordinating the patient's care, counseling/educating the patient, ordering prescriptions/medications/tests/p rocedures, interpreting results and documenting clinical information in the patient's electronic health record on the day of the encounter. Electronically signed by Juan Reed DO, MS, FACCRISTINA Patient Care Team: Alvarado Gallagher MD as PCP - General (Geriatric Medicine) Disclaimers: INFORMED CONSENT: The nature and purpose of the proposed treatment and/or procedure have been discussed. The risks and benefits of the proposed treatment or procedures have been reviewed. Alternatives have been reviewed in addition to the risks and benefits of not receiving treatments or undergoing procedures. Pursuant to this discussion, the patient agrees to undergo the proposed treatment or procedure. Captured images seen in this note are not a substitute for a comprehensive interpretation of the entire data set as reflected by the interpreting physician with regard to radiology, echocardiography, and other diagnostic images. documented in this encounter [facility] 11-21-2023 Evaluation + Plan note Associated Problem(s): Short-term memory loss Chronic Patient with occasional word-finding difficulties I suspect either normal memory loss for aging or possibly MCI (Mild Cognitive Impairment) Patient has already named her Power of Supervisor [employer] for Healthcare and Finances (Both are her daughter Shama López) I recommended patient follow-up with [facility] (phone: [phone] fax: [phone]) as needed for memory testing. [facility] 11-21-2023 Evaluation + Plan note Associated Problem(s): Chronic atrial fibrillation (HCC) Chronic; Stable Asymptomatic May be nearing renal (kidney) dysfunction requiring reduced dose of eliquis (given Cr nearly 1.5 in past and patient's age >80 yo). May need eliquis 2.5mg po bid instead of 5mg po bid in future pending renal (kidney) function T [facility] 11-21-2023 Evaluation + Plan note Associated Problem(s): Polypharmacy meds reviewed; appropriate May be nearing renal (kidney) dysfunction requiring reduced dose of eliquis (given Cr nearly 1.5 in past and patient's age >80 yo). May need eliquis 2.5mg po bid instead of 5mg po bid in future pending renal (kidney) function Has a pill organizing box at home. Uses it routinely. Fills meds on Saturdays for the whole week. No one looks over them. She doesn't miss her meds. - encouraged her to have someone like her son Rajiv who lives with patient to look over meds to ensure she's not missing or doubling up on meds T [facility] 11-21-2023 Evaluation + Plan note Associated Problem(s): Nonrheumatic aortic valve stenosis S/p AV replacement by Dr. Nagy in 201209/22/23 Transthoracic Echo (TTE) noted severe aortic stenosis . Mean Gradient of 49. Dr. Garces in [place]. No aortic valve area mentioned. I agree with cardiology plan as discussed with museum exhibit technician Dr. Huffman and CTS Dr. Reed on same date regarding next steps for further workup/treatment of cardiac disease which likely includes heart cath +/- TAVR. On this date of evaluation, the patient has sufficient understanding of procedure(s) to consent to the procedure(s) being discussed and has adequate social support(s). [facility] 11-21-2023 History of Presen t illness Narrative Images from the original note were not included. [facility] [address] [place] [address] Dept: [phone] Dept Visit type: New : 1940 Reason for Visit: Cardiac Valve Problem Assessment and Plan 1. LV dysfunction 2. Stenosis of prosthetic aortic valve, initial encounter - ECG 12 lead - CLINIC PERFORMED This is a very pleasant 83 y.o. 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 she is clearly in need of aortic valve replacement, likely [id number] TAVR. Will need a diagnostic cath first, to evaluate for concomitant coronary disease. Will get a CTA for anatomic planning. If favorable anatomy for transfemoral TAVR, will likely proceed with TAVR. This decision was made after multidisciplinary discussion, using a shared decision making strategy. CT surgery also saw patient to aide in discussion. It was a pleasure seeing your patient in the office today. Please do not hesitate to call me with any questions. Follow up for Recheck on cath complete. Subjective HPI Brianne Call is a very pleasant 83 y.o. female who is here for evaluation of her aortic valve disease. She had a bioprosthetic aortic valve replacement in 2012 with a 25mm Medtronic valve. She has done well since that time, but is starting to have symptoms. her symptoms include progressive dyspnea on exertion and fatigue. her most recent echo shows EF 30% with severe aortic stenosis. Mean aortic valve gradient 49mmHg. Review of Systems Constitutional: Positive for activity change. Negative for chills, diaphoresis, fatigue and fever. HENT: Negative [...] easily. Psychiatric/Behavioral: Negative for dysphoric mood. Allergies Allergen Reactions Varun Inhibitors Other Lisinopril Cough Sacubitril Cough Valsartan Cough Outpatient [...] tablet Take 25 mg by mouth daily. hydroCHLOROthiazide (HYDRODiuril) 25 MG tablet Take 25 mg by mouth daily. potassium chloride CR (K-Tab) 20 MEQ ER tablet Take 20 mEq by mouth daily. Do not crush, chew, or split. No facility-administered medications prior to visit. Past [...] Procedure Laterality Date APPENDECTOMY CATARACT EXTRACTION HYSTERECTOMY No family history on file. Objective Vitals: 11/21/23 1401 BP: 136/82 BP Location: Left arm Patient Position: Sitting BP Cuff Size: Adult Pulse: 58 SpO2: 98% Weight: 236 lb 12.8 oz (107 kg) Height: 5' 2 (1.575 m) Physical Exam Constitutional: General: She is not in acute distress. Appearance: She is not diaphoretic. HENT: Head: Normocephalic. Nose: Nose normal. Mouth/Throat: Mouth: Mucous membranes are moist. Pharynx: No oropharyngeal exudate. Eyes: General: No scleral icterus. Right eye: No discharge. Left eye: No discharge. Neck: Thyroid: No thyromegaly. Vascular: No carotid bruit or JVD. Cardiovascular: Rate and Rhythm: Normal rate and regular rhythm. Pulses: Normal pulses. Heart sounds: Murmur heard. Systolic murmur is present with a grade of 3/6. Pulmonary: Effort: Pulmonary effort is normal. Breath sounds: Normal breath sounds. Abdominal: General: Bowel sounds are normal. There is no distension. Palpations: There is no hepatomegaly. Tenderness: There is no abdominal tenderness. Musculoskeletal: General: Normal range of motion. Cervical back: Normal range of motion. Right lower leg: No edema. Left lower leg: No edema. Skin: General: Skin is warm and dry. Neurological: Mental Status: She is oriented to person, place, and time. Psychiatric: Mood and Affect: Mood normal. Behavior: Behavior normal. Data Reviewed and Summarized No results found for: EFBP , PLVEF , LVEFPHYS , LVEF2D , EF Review of tests/labs done/ordered within my specialty: EKG in office: Review of tests/labs done/ordered outside my specialty: Independent interpretation of tests: I personally reviewed the images from Brianne Call's most recent TTE in the office today, to help with medical decision making. My interpretation is noted in the HPI section of this note. Harjeet Huffman MD documented in this encounter [facility] 11-16-2023 Note Received fax referra l to Heart Valve Clinic from Dr. Garces @ [facility]. I spoke w/ Juana, echo images to be pushed to PACS, she will fax lab work. I spoke w/ pt, appt scheduled. Chart made. [facility] Evaluation note Diagnosis Nonrheumatic aortic valve stenosis- Primary Chronic atrial fibrillation (HCC) Atrial fibrillation Short-term memory loss Memory loss Drug-induced bradycardia Polypharmacy Issue of repeat prescriptions [facility] Diagnosis Stenosis of prosthetic aortic valve, initial encounter- Primary documented in this encounter [facility] note* Diagnosis LV dysfunction- Primary Left heart failure Stenosis of prosthetic aortic valve, initial encounter [facility] Diagnosis Nonrheumatic aortic valve stenosis- Primary Chronic atrial fibrillation (HCC)- Primary Atrial fibrillation Nonrheumatic aortic valve stenosis Adverse effect of contrast media, initial encounter Nonrheumatic aortic valve stenosis [facility] Diagnosis Nonrheumatic aortic valve stenosis- Primary Renal failure, unspecified chronicity Stenosis of prosthetic aortic valve, initial encounter Nonrheumatic aortic valve stenosis [facility] Diagnosis Nonrheumatic aortic valve stenosis- Primary Nonrheumatic aortic valve stenosis Nonrheumatic aortic valve stenosis [facility] Diagnosis Nonrheumatic aortic valve stenosis- Primary Severe aortic stenosis- Primary Aortic valve disorders Nonrheumatic aortic valve stenosis [facility] Diagnosis Severe aortic stenosis- Primary Aortic valve disorders [facility] Diagnosis Nonrheumatic aortic valve stenosis- Primary Severe aortic stenosis Aortic valve disorders Severe aortic stenosis Aortic valve disorders Nonrheumatic aortic valve stenosis documented in this encounter [facility] Reason for Referral Specialty Diagnoses / Procedures Referred By Roseline ervin Referred To Contact Radiology Diagnoses Nonrheumatic aortic valve stenosis Procedures CTA Angiogram TAVR Arlene Higgins APRN - [employer] [address] [place] [address] Referral ID Status Reason Start Date Expiration Date Visits Re quested Visits Authorized [id number] Closed 12/07/2023 02/05/2024 1 1 Summary Purpose Family History No Family History Records Found Advance Directives Date Activated Date Inactivated Comments 12/25/2023 7:26 AM Date Activated Date Inactivated Comments 12/25/2023 7:26 AM 12/26/2023 3:54 PM Additional Source Comments Reason for Visit (unrecogniz ed section and content) Reason Comments Shortness of Breath Reason Comments Cardiac Valve Problem Reason Comments Cardiac Valve Problem Patient seen in pr ivate OP procedure area for H + P update and education prior to scheduled TAVR Reason Comments OP Infusion Specialty Diagnoses / Procedures Referred By Roseline t Referred To Contact Infusion Therapy Diagnoses Renal failure, unspecified chronicity Stenosis of prosthetic aortic valve, initial encounter Procedures ONCBCN THERAPY INFUSION APPOINTMENT REQUEST INFUSION TREATMENT Harjeet Huffman MD [address] [address] [address] [place] [address] Referral ID Status Reason Start Date Expiration Date Visits Re quested Visits Authorized [id number] Closed 12/12/2023 12/06/2024 1 1 Specialty Diagnoses / Procedures Referred By Contac t Referred To Contact Radiology Diagnoses Nonrheumatic aortic valve stenosis Procedures CTA Angiogram TAVR Arlene Higgins, JEREMIE - SIM [address] [place] [address] Referral ID Status Reason Start Date Expiration Date Visits Re quested Visits Authorized [id number] Closed 12/07/2023 02/05/2024 1 1 Specialty Diagnoses / Procedures Referred By Contac t Referred To Contact Diagnoses Nonrheumatic aortic valve stenosis Procedures TRANSCATHETER AORTIC VALVE REPLACEMENT, TRANSTHORACIC ECHOCARDIOGRAM TRANSCATHETER AORTIC VALVE REPLACEMENT, TRANSTHORACIC ECHOCARDIOGRAM Harjeet Huffman MD [address] [address] [address] [place] [address] Referral ID Status Reason Start Date Expiration Date Visits Re quested Visits Authorized [id number] 1 1 Care Teams (unrecognized sec tion and content) Corrugated Box Machine Operator Relationship Specialty Start Date End Date Alvarado Gallagher MD [address] [place] [address] PCP - General Geriatric Medicine 11/21/23 Corrugated Box Machine Operator Relationship Specialty Start Date End Date Alvarado Gallagher MD [address] [place], [place] [id number] PCP - General Geriatric Medicine 11/21/23 Corrugated Box Machine Operator Relationship Specialty Start Date End Date Alvarado Gallagher MD [address] [place], [place] [id number] PCP - General Geriatric Medicine 11/21/23 Corrugated Box Machine Operator Relationship Specialty Start Date End Date Alvarado Gallagher MD [address] [place] [address] PCP - General Geriatric Medicine 11/21/23 Corrugated Box Machine Operator Relationship Specialty Start Date End Date Alvarado Gallagher MD [address] [place] [address] PCP - General Geriatric Medicine 11/21/23 Corrugated Box Machine Operator Relationship Specialty Start Date End Date Alvarado Gallagher MD [address] [place] [address] PCP - General Geriatric Medicine 11/21/23 Corrugated Box Machine Operator Relationship Specialty Start Date End Date Alvarado Gallagher MD [address] [place] [address] PCP - General Geriatric Medicine 11/21/23 Corrugated Box Machine Operator Relationship Specialty Start Date End Date Alvarado Gallagher MD [address] [place] [address] PCP - General Geriatric Medicine 11/21/23 INFORMATION SOURCE (unrecogn ized section and content) DATE CREATED AUTHOR 12/27/2023 [facility] Scheduled Active and Recently Administ ered Medications (unrecognized section and content) Medication Order 12/24/2023 12/25/2023 12/26/2023 aspirin EC tablet 81 mg 81 mg, Oral, Daily, First dose on Mon12/26/23 at 0900, Do not crush, chew, or split. 0931 (Given - Provid er: Leticia Arshad RN) ceFAZolin in dextrose 4% (Ancef) IVPB 2,000 mg (COMPLETED) 2,000 mg, IntraVENous, Administer over 30 Minutes, Once, On Mon12/25/23 at 0730, For 1 dose, Preprocedure, Administer within 1 hour prior to incision. Recommend to repeat in 3-4 hours after initial dose if still intra-op. premix bag, Suspected Indication (Select all that apply): Surgical Prophylaxis 0959 (Given - Provider: Edgar Warner APRN - HIDE SORTER) dapagliflozin (Farxiga) tablet 10 mg 10 mg, Oral, Daily, First dose on Mon12/26/23 at 0900, Indications: Chronic Renal Disease 30 (Given - Provid er: Leticia Arshad RN) diphenhydrAMINE (BENADryl) tablet/capsule 50 mg (COMPLETED) 50 mg, Oral, Once, On Mon12/25/23 at 0730, For 1 dose, Preprocedure 0800 (Given - Provider: Jelena Doan RN) famotidine (Pepcid) tablet 40 mg (COMPLETED) 40 mg, Oral, Once, On Mon12/25/23 at 0730, For 1 dose, Preprocedure, One hour prior to procedure 0800 (Given - Provider: Jelena Doan, LEW) febuxostat (Uloric) tablet 40 mg 40 mg, Oral, Daily, First dose on Mon12/25/23 at 1130 1130 (Not Given - Provider: Mirella Kimball RN - Reason: Medication not available) 0931 (Given - Provider: Leticia Arshad RN) furosemide (Lasix) injection 40 mg (COMPLETED) 40 mg, IntraVENous, Once, On Mon12/26/23 at 0845, For 1 dose 0930 (Given - Provid er: Leticia Arshad RN) furosemide (Lasix) tablet 40 mg 40 mg, Oral, Daily, First dose on Mon12/26/23 at 0900 0900 (Not Given - Provider: Leticia Arshad RN - Reason: Other - Comment: got IV) metoprolol tartrate (Lopressor) tablet 12.5 mg 12.5 mg, Oral, 2 times daily, First dose on Mon12/25/23 at 1800, Hold for HR less than 50 1813 (Not Given - Provider: Mirella Kimball RN - Reason: Other - Comment: HR in 40s) 0930 (Not Given - Provider: Leticia Arshad RN - Reason: Contraindicated - Comment: HR 45) mupirocin (Bactroban) 2 % ointment 1 Application 1 Application, Nasal, 2 times daily, First dose on Mon12/25/23 at 1130, For 5 days, Recovery & On Unit, Indications: MRSA Nasal Decolonization 1145 (Given - Provider: Mirella Kimball RN)2006 (Given - Provider: Ellen Durant RN) 0900 (Given - Provider: Leticia Arshad RN) pantoprazole (ProtoNix) EC tablet 40 mg 40 mg, Oral, Daily before breakfast, First dose on Mon12/26/23 at 0600, Do not crush, chew, or split. 0513 (Given - Provid er: Ellen Durant RN) predniSONE (Deltasone) tablet 60 mg (COMPLETED) 60 mg, Oral, Once, On Mon12/25/23 at 0730, For 1 dose, Preprocedure, One hour prior to procedure 0800 (Given - Provider: Jelena Doan RN) spironolactone (Aldactone) tablet 25 mg 25 mg, Oral, Daily, First dose on Mon12/26/23 at 0900 0931 (Given - Provid er: Leticia Arshad RN) Continuous Medication Order 12/24/2023 12/25/2023 12/26/2023 sodium chloride 0.9 % infusion (CANCELED) 50 mL/hr, IntraVENous, Continuous, Starting on Mon12/25/23 at 0730, Preprocedure, Upon admission to sameday - please start iv if patient does not have iv access. 0800 (New Bag - Provider: Jimbo Doan RN)0946 (Continued by Anesthesia - Provider: Edgar Warner APRN - AIYANA)1118 (Anesthesia Volume Adjustment - Provider: JEREMIE Neri CRNA)1130 (Stopped - Provider: Mirella Kimball RN) PRN Medication Order 12/24/2023 12/25/2023 12/26/2023 acetaminophen (Tylenol) tablet 650 mg 650 mg, Oral, Every 4 hours PRN, mild pain (1-3), Fever > 100.5 F (38 C), Starting on Mon12/25/23 at 1117, Recovery & On Unit, Maximum dose of acetaminophen is 4000 mg from all sources in 24 hours. heparin 1,000 Units in sodium chloride 0.9 % 500 mL OR irrigation (CANCELED) As needed, Starting on Mon12/25/23 at 1046, Intraprocedure 1046 (Given - Provider: Harjeet Huffman MD) lidocaine (Xylocaine) 1 % injection (CANCELED) As needed, Starting on Mon12/25/23 at 1046, Intraprocedure 1046 (Given - Provider: Harjeet Huffman MD) perflutren protein A microsphere (Optison) 3 mL in sodium chloride (PF) 0.9 % 10 mL IV syringe (COMPLETED) 0-10 mL, IntraVENous, IMG once PRN, other, Suboptimal echo image, Starting on Mon12/25/23 at 1119, For 1 dose, CV Procedural Medications, Administer via slow IVP for suboptimal echocardiogram enhancement. May administer as divided doses to reach optimal image enhancement 0830 (Given - Provid er: Leticia Arshad RN) sodium chloride 0.9 % irrigation solution (CANCELED) As needed, Starting on Mon12/25/23 at 1046, Intraprocedure 1046 (Given - Provider: Harjeet Huffman MD) FOR RECORDS PERTAINING TO PATIENTS WHO ARE OR HAVE BEEN ENROLLED IN A CHEMICAL DEPENDENCY/SUBSTANCEABUSE PROGRAM, SOME INFORMATION MAY BE OMITTED. This clinical summary was aggregated from multiple sources. Caution should be exercised in using it in the provision of clinical care. This summary normalizes information from multiple sources, and as a consequence, information in this document may materially change the coding, format and clinical context of patient data. In addition, data may be omitted in some cases. CLINICAL DECISIONS SHOULD BE BASED ON THE PRIMARY CLINICAL RECORDS. [facility]. provides no warranty or guarantee of the accuracy or completeness of information in this document.
[2024-01-05 18:52] LABS: Anion Gap 7 (5-15); BUN 34 mg/dL (7-18); Calcium,Total 9.4 mg/dL (8.5-10.1); Chloride 104 mmol/L (98-107); Creatinine, Serum 1.48 mg/dL (0.55-1.02); EST Glomerular Filtration Rate 36 mL/min (>60); Est Glom Filt Rate - Afr Amer 43 mL/min (>60); Estimated Creatinine Clearance 33.57 ml/min; Glucose 128 mg/dL (74-106); Potassium 4.1 mmol/L (3.5-5.1); Sodium Level 139 mmol/L (136-145); Troponin-I HS (w/2H Reflex) 24 pg/mL (3.0-54.0)
[2024-01-05 18:53] LABS: International Normalized Ratio 1.6; Prothrombin Time (Protime)PT. 18.9 SECONDS (11.7-14.9)
[2024-01-05] MEDS: DiphenhydrAMINE 50 MG/ML Syringe IV (19:05)
[2024-01-05 19:09] LABS: Lactic Acid 1.8 mmol/L (0.4-1.9)
[2024-01-05 20:03] LABS: Bacteria 0 SEEN /hpf (None Seen); Color, Urine Yellow (Yellow); Glucose, Dipstick 1000 mg/dl (Normal); Ketone-Dipstick Negative (Negative); Leukocyte Esterase-Dipstick Negative /ul (Negative); Mucous, Urine 0 SEEN /hpf (<or=2+); Nitrite-Dipstick Negative (Negative); Occult Blood-Urine Negative /ul (Negative); Protein-Dipstick 15 mg/dl (Negative); Specific Gravity, Urine 1.015 (1.002-1.030); Urine Bilirubin Dipstick Negative (Negative); Urine Clarity Clear (Clear); Urine Urobilinogen 4 mg/dl (Normal); Urine pH 6.5 (5.0 - 8.0)
[2024-01-05 20:19] LABS: Squamous Epithelial Cells - UA 0-5 SEEN /hpf (5-10)
[2024-01-05 20:21] LABS: Hyaline Cast 0-5 SEEN /lpf (0-5); Red Blood Cells-Urine 0-5 SEEN /hpf (0-5); White Blood Cells 0-5 SEEN /hpf (0-5)
[2024-01-05 20:26] LABS: Reflex Troponin-HS? (from REC) Y
--- NOTE | 2024-01-05 21:32 | HP.PCM.HOS_ITS ---
HPI - General General Date of Admission: 01/05/24 Date of Service: 01/05/24 Chief Complaint: Acute aphasia, confusion, lethargy. HPI Narrative The patient is an 83 y/o F w/ PMHx: Morbid obesity, HFrEF, Valvular Heart Disease, CKD stage IIIa, HTN, HLD, GERD, PAF, GERD w/ Hx Gastric ulcer who presents to the [facility] ED on 01/05/24 with history of unfortunately 2 mechanical falls on day of presentation and per significant mild confusion following these as well as EMS reporting that she was slow to respond to questions status post recent valve replacement approximately 1 week prior to current presentation with groin access reportedly with no recent chest pain or shortness of breath or any headaches but given this new status prompted ED evaluation to be cautious. From review of records patient did have cardiac catheterization 12/04/23 with evidence of 30% stenosis of the proximal and mid LAD with recommendation for medical therapy at that time as part of his evaluation prior to valvular intervention. Workup in the ED included T98.1, heart rate 49, BP 155/70, respiratory rate 18, 96% on room air, orthostatics notable for greater than a 20 point change in systolic with positional changes as well as significant change in heart rate, CBC with WBC 8.8, he will 15.2, platelet 187 without marked shift, coags with PT 18.9 otherwise not marked appearing, BMP with BUN/creatinine 34/1.48, GFR 36, glucose 128, lactic acid 1.8, troponin 24, urinalysis with urine protein 15, glucose of thousand, negative ketone, leukocyte esterase negative with no obvious evidence of UTI, chest x-ray with incomplete expansion of the lungs with patchy bilateral pulmonary opacities suggestive of pulmonary edema although cannot exclude multifocal pneumonia, CTA head and neck w/ severe calcific plaquing of the right carotid bulb creating greater than 70% stenosis, occluded left common carotid just 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 In the ED patient ministered diphenhydramine 50 mg IV x 1 as well as Solu-Medrol 40 mg IV x 1 in order to obtain CTA imaging. [facility] Medical History Osteoarthritis Chronic diastolic (congestive) heart failure Vitamin D deficiency Hyperlipidemia GERD (gastroesophageal reflux disease) Chronic kidney disease, stage 3a Hypokalemia Morbid obesity Severe aortic stenosis LVH (left ventricular hypertrophy) HFrEF (heart failure with reduced ejection fraction) ALONSO (dyspnea on exertion) Actinic keratosis History of skin cancer Pneumonia Gout Cataracts, bilateral Arthritis Encounter for preprocedural cardiovascular examination New onset atrial fibrillation (~08/2017) Hx of aortic valve stenosis Legionella pneumonia Pancreatitis Hypertension Gastric ulcer Home Medications ?Medication ?Instructions ?Recorded ?Last Taken ?Type metoprolol tartrate 25 mg tablet 12.5 mg PO BID BLOOD PRESSURE 07/10/17 12/26/17 06:00 History apixaban 5 mg tablet (Eliquis) 5 mg PO BID BLOOD THINNER 12/11/17 11/30/23 History febuxostat 40 mg tablet 40 mg PO DAILY 02/02/21 Unknown History pantoprazole 40 mg tablet,delayed 40 mg PO DAILY 02/02/21 Unknown History release dapagliflozin propanediol 10 mg 10 mg PO DAILY #90 tabs 11/08/23 Unknown Rx tablet (Farxiga) spironolactone 25 mg tablet 25 mg PO DAILY #90 tabs 11/08/23 Unknown Rx furosemide 40 mg tablet (Lasix) 40 mg PO DAILY #30 tabs 11/10/23 Unknown Rx Allergy/AdvReac Type Severity Reaction Status Date / Time Iodinated Contrast Media Allergy Intermediate Hives Verified 01/05/24 18:54 STANLEY Inhibitors AdvReac Intermediate Other Verified 11/08/23 09:28 dapagliflozin (From Farxiga) AdvReac Intermediate cough Verified 11/08/23 09:28 sacubitril (From Entresto) AdvReac Intermediate cough Verified 11/08/23 09:28 valsartan (From Entresto) AdvReac Intermediate cough Verified 11/08/23 09:28 lisinopril AdvReac COUGH Verified 11/08/23 09:28 Family History Father negative for CAD suspected ASD or VSD Mother Acute kidney failure Other Arthritis Hypertension Skin cancer Surgical History History of cataract removal with insertion of prosthetic lens History of aortic valve replacement History of appendectomy History of hysterectomy History of right and left heart catheterization History of left heart catheterization H/O right heart catheterization Social History (Updated 01/05/24 @ 22:[address] Maribel Vizcarra MD) household members: none Smoking Status: Never smoker alcohol intake: never substance use type: does not use additional social history: Does Not Take Aspirin Does Not Take Ibuprofen ROS ROS Narrative GIVEN PER FAMILY/PATIENT LETHARGIC AND GIVING INCORRECT ORIENTATION QUESTION ANSWERS. Admission Review of Systems: CONSTITUTIONAL: No weight loss, fever, chills, + weakness or fatigue. HEENT: + Possible dizziness/LH. Eyes: No visual loss, blurred vision, double vision or yellow sclerae. Ears, Nose, Throat: No hearing loss, sneezing, congestion, runny nose or sore throat. SKIN: No rash or itching, lesions, wounds. CARDIOVASCULAR: + Possible LH/Dizziness. No chest pain, chest pressure or chest discomfort, palpitations, edema, orthopnea, syncopal events. RESPIRATORY: No shortness of breath, cough or sputum, wheezing, hemoptysis. GASTROINTESTINAL: No anorexia, nausea, vomiting or diarrhea, abdominal pain, melena, BRBPR. GENITOURINARY: No dysuria, frequency, urgency or retention. NEUROLOGICAL: + Concern for confusion, frequent falls, possible dizziness/LH. No headache, syncope, paralysis, ataxia, numbness or tingling in the extremities, focal weakness, change in bowel or bladder control, seizure. MUSCULOSKELETAL: No muscle, back pain, joint pain or stiffness. HEMATOLOGIC: No anemia. + Easy bleeding/bruising. LYMPHATICS: No enlarged nodes. No history of splenectomy. PSYCHIATRIC: No history of depression or anxiety. ENDOCRINOLOGIC: No reports of sweating, cold or heat intolerance. No polyuria or polydipsia. ALLERGIES: + History of hives. Vital Signs Vital Signs Vital Signs: 01/05/24 17:05 01/05/24 17:09 01/05/24 17:15 Temperature 98.1 F Temperature Source Oral Pulse Rate 49 L 54 L 46 L Pulse Rate [Lying] Pulse Rate [Sitting (for 1 minute prior to obtaining)] Respiratory Rate 18 10 L 15 Respiratory Effort Respiratory Depth Respiratory Pattern Blood Pressure 155/70 H 149/61 H Blood Pressure [Lying] Blood Pressure [Sitting (for 1 minute prior to obtaining)] Blood Pressure Mean 98 86 Blood Pressure Mean [Lying] Blood Pressure Mean [Sitting (for 1 minute prior to obtaining)] Pulse Ox 96 96 92 Oxygen Delivery Method Room Air 01/05/24 17:30 01/05/24 17:45 01/05/24 18:00 Temperature Temperature Source Pulse Rate 52 L 49 L Pulse Rate [Lying] Pulse Rate [Sitting (for 1 minute prior to obtaining)] Respiratory Rate 18 19 H Respiratory Effort Respiratory Depth Respiratory Pattern Blood Pressure 149/83 H 162/76 H 166/95 H Blood Pressure [Lying] Blood Pressure [Sitting (for 1 minute prior to obtaining)] Blood Pressure Mean 102 101 113 Blood Pressure Mean [Lying] Blood Pressure Mean [Sitting (for 1 minute prior to obtaining)] Pulse Ox 91 95 Oxygen Delivery Method 01/05/24 18:04 01/05/24 18:04 01/05/24 18:15 Temperature Temperature Source Pulse Rate 48 L 49 L Pulse Rate [Lying] Pulse Rate [Sitting (for 1 minute prior to obtaining)] Respiratory Rate 14 16 Respiratory Effort Normal Non-Labored Respiratory Depth Normal Respiratory Pattern Normal Blood Pressure 150/73 H 185/91 H Blood Pressure [Lying] Blood Pressure [Sitting (for 1 minute prior to obtaining)] Blood Pressure Mean 98 107 Blood Pressure Mean [Lying] Blood Pressure Mean [Sitting (for 1 minute prior to obtaining)] Pulse Ox 97 Oxygen Delivery Method Room Air 01/05/24 18:19 01/05/24 18:30 01/05/24 18:45 Temperature Temperature Source Pulse Rate 52 L 55 L 51 L Pulse Rate [Lying] Pulse Rate [Sitting (for 1 minute prior to obtaining)] Respiratory Rate 16 18 19 H Respiratory Effort Respiratory Depth Respiratory Pattern Blood Pressure 168/74 H 150/73 H 169/74 H Blood Pressure [Lying] Blood Pressure [Sitting (for 1 minute prior to obtaining)] Blood Pressure Mean 98 83 100 Blood Pressure Mean [Lying] Blood Pressure Mean [Sitting (for 1 minute prior to obtaining)] Pulse Ox Oxygen Delivery Method 01/05/24 19:00 01/05/24 19:00 01/05/24 19:15 Temperature Temperature Source Pulse Rate 59 L 47 L 64 Pulse Rate [Lying] Pulse Rate [Sitting (for 1 minute prior to obtaining)] Respiratory Rate 13 16 22 H Respiratory Effort Respiratory Depth Respiratory Pattern Blood Pressure 179/103 H 173/79 H 179/103 H Blood Pressure [Lying] Blood Pressure [Sitting (for 1 minute prior to obtaining)] Blood Pressure Mean 128 103 124 Blood Pressure Mean [Lying] Blood Pressure Mean [Sitting (for 1 minute prior to obtaining)] Pulse Ox 92 100 99 Oxygen Delivery Method Room Air 01/05/24 19:30 01/05/24 19:32 01/05/24 19:35 Temperature Temperature Source Pulse Rate 76 70 Pulse Rate [Lying] 70 Pulse Rate [Sitting (for 1 minute prior to obtaining)] 65 Respiratory Rate 16 21 H Respiratory Effort Respiratory Depth Respiratory Pattern Blood Pressure 206/177 H 193/75 H Blood Pressure [Lying] 193/75 H Blood Pressure [Sitting (for 1 minute prior to obtaining)] 169/97 H Blood Pressure Mean 188 104 Blood Pressure Mean [Lying] 114 Blood Pressure Mean [Sitting (for 1 minute prior to obtaining)] 121 Pulse Ox 96 Oxygen Delivery Method 01/05/24 19:40 01/05/24 19:45 01/05/24 20:00 Temperature Temperature Source Pulse Rate 66 56 L Pulse Rate [Lying] Pulse Rate [Sitting (for 1 minute prior to obtaining)] Respiratory Rate 13 13 Respiratory Effort Respiratory Depth Respiratory Pattern Blood Pressure 169/97 H 154/73 H Blood Pressure [Lying] Blood Pressure [Sitting (for 1 minute prior to obtaining)] Blood Pressure Mean 116 97 Blood Pressure Mean [Lying] Blood Pressure Mean [Sitting (for 1 minute prior to obtaining)] Pulse Ox Oxygen Delivery Method 01/05/24 20:00 01/05/24 20:18 01/05/24 20:30 Temperature Temperature Source Pulse Rate 70 69 Pulse Rate [Lying] Pulse Rate [Sitting (for 1 minute prior to obtaining)] Respiratory Rate 13 18 Respiratory Effort Respiratory Depth Respiratory Pattern Blood Pressure 154/73 H Blood Pressure [Lying] Blood Pressure [Sitting (for 1 minute prior to obtaining)] Blood Pressure Mean 97 Blood Pressure Mean [Lying] Blood Pressure Mean [Sitting (for 1 minute prior to obtaining)] Pulse Ox 97 Oxygen Delivery Method 01/05/24 20:45 01/05/24 21:00 Temperature Temperature Source Pulse Rate 69 71 Pulse Rate [Lying] Pulse Rate [Sitting (for 1 minute prior to obtaining)] Respiratory Rate 18 25 H Respiratory Effort Respiratory Depth Respiratory Pattern Blood Pressure 162/75 H Blood Pressure [Lying] Blood Pressure [Sitting (for 1 minute prior to obtaining)] Blood Pressure Mean 98 Blood Pressure Mean [Lying] Blood Pressure Mean [Sitting (for 1 minute prior to obtaining)] Pulse Ox 96 97 Oxygen Delivery Method Weight Weight: 241 lb 3.2 oz Body Mass Index (BMI) 44.1 Physical Exam Narrative Physical Examination: General: Patient will awaken to stimuli, not very alert and falls back asleep easily, will answer some orientation questions giving correct self, people in the room, location but gave the wrong year but then gives the correct month, remains cooperative, laying in the ED bed. Skin: Normal color, normal turgor, no icterus, no cyanosis except very staged ecchymoses, abrasions including on the face. HEENT: AT/NC, EOMI, PERRLA, mildly dry MM, no carotid bruits or JVD noted. Lungs: Diminished, greater bases, mildly increased respiratory rate but no distress and despite film findings no obvious appreciated rales, ronchi or wheezing. Heart: Irregular, rate controlled; no gallop, rub audible. Abdomen: Soft, morbidly obese, NTTP, mildly hyperactive BS, difficult to discern distention HSM given habitus. Extremities: No cyanosis, no clubbing, no marked peripheral edema noted Neurological: Patient will awaken to stimuli, not very alert and falls back asleep easily, will answer some orientation questions giving correct self, people in the room, location but gave the wrong year but then gives the correct month, remains cooperative, laying in the ED bed, cognitive function not baseline intact; pupils equally reactive to light and accommodation, cranial nerves grossly normal, moving all 4 extremities, no focal deficits, strength severely globally decreased, difficulty performing finger-nose and [id number] and answering questions given significant fatigue more than anything, equivocal Babinski. Psychiatric: Affect appears flat, fatigued, lethargic, no acute evidence of depressive or anxiety feelings. Results Lab / Micro Data 01/05/24 18:20 01/05/24 18:20 Labs: Laboratory Results - last 24 hr 01/05/24 18:20: WBC 8.8, RBC 4.68, Hgb 15.2 H, Hct 45.6, MCV 97.4, MCH 32.5 H, MCHC 33.3, RDW Std Deviation 48.6 H, RDW Coeff of [place] 13.3, Plt Count 187, MPV 12.2 H, Immature Gran % (Auto) 0.800, Neut % (Auto) 76.2 H, Lymph % (Auto) 13.6 L, [place] % (Auto) 8.4, Eos % (Auto) 0.2, Baso % (Auto) 0.8, Absolute Neuts (auto) 6.7, Absolute Lymphs (auto) 1.20, Nucleated RBC % 0, PT 18.9 H, INR 1.6, APTT 27.0, Sodium 139, Potassium 4.1, Chloride 104, Carbon Dioxide 28.0, Anion Gap 7, BUN 34 H, Creatinine 1.48 H, Estim Creat Clear Calc 33.57, Est GFR (MDRD) Af Amer 43 L, Est GFR (MDRD) Non-Af 36 L, BUN/Creatinine Ratio 23.0 H, Glucose 128 H, Lactic Acid 1.8, Calcium 9.4, Troponin I High Sens 24 01/05/24 19:50: Urine Color Yellow, Urine Clarity Clear, Urine pH 6.5, Ur Specific [place] 1.015, Urine Protein 15 H, Urine Glucose (UA) 1000 H, Urine Ketones Negative, Urine Occult Blood Negative, Urine Nitrite Negative, Urine Bilirubin Negative, Urine Urobilinogen 4 H, Ur Leukocyte Esterase Negative, Urine RBC 0-5 SEEN, Urine WBC 0-5 SEEN, Ur Squamous Epith Cells 0-5 SEEN, Urine Bacteria 0 SEEN, Hyaline Casts 0-5 SEEN, Urine Mucus 0 SEEN Micro: Microbiology 01/05/24 19:11 Mucosa - Nose SARS-CoV-2, Influenza & RSV (PCR) - Final Imaging Radiology Impression Chest X-Ray 01/05/24 18:06 IMPRESSION: Incomplete expansion of the lungs. Patchy bilateral pulmonary opacities suggestive of pulmonary edema. Cannot exclude multifocal pneumonia. Electronically Signed: Ankush Sosa MD at 20:34 EDT , Head/Neck CTA 01/05/24 18:06 IMPRESSION: Severe calcific plaquing of the right carotid bulb creating greater than 70% stenosis. 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 Occluded left common carotid just distal to the origin with reconstitution at the level of the cavernous carotid in the brain N.B. : The above Results were Read Back by Benito Chan MD to James Hodges DO, and understanding confirmed on 01/05/2024 21:10:00 (ET). Electronically Signed: Benito Chan MD at 20:58 EDT , Assessment & Plan Assessment/Plan (1) Altered mental status: PLAN: Plan The patient is an 83 y/o F w/ PMHx: Morbid obesity, HFrEF, Valvular Heart Disease, CKD stage IIIa, HTN, HLD, GERD, PAF, GERD w/ Hx Gastric ulcer who presents to the [facility] ED on 01/05/24 with history of unfortunately 2 mechanical falls on day of presentation and per significant mild confusion following these as well as EMS reporting that she was slow to respond to questions status post recent valve replacement approximately 1 week prior to current presentation with groin access reportedly with no recent chest pain or shortness of breath or any headaches but given this new status prompted ED evaluation to be cautious. From review of records patient did have cardiac catheterization 12/04/23 with evidence of 30% stenosis of the proximal and mid LAD with recommendation for medical therapy at that time as part of his evaluation prior to valvular intervention. #1. Acute aphasia concerning for TIA/CVA: Will admit to PCU, will obtain MRI Brain, ECHO repeat as noted with bubble study concurrently, PT/OT/Speech/Nutrition evaluation per protocol. Will allow permissive HTN temporarily, maintain on asa, will hold on statin as she does have underlying history but is not on statin but unclear reason why thus will attempt to investigate further, AM FLP, fall precautions. Mag, TSH, FLP, HgbA1c requested. Maintain on fall and aspiration precautions. Will request Neurology consultation. UA unremarkable. #2. CXR comments of possible Decompensated HFrEF versus possible multifocal pneumonia, complicated by recent valvular surgery intervention with mechanical falls, weakness, debility, adult failure to thrive with noted significant orthostatic vital sign assessment/orthostasis: Given her presentation more suspicious for possible infection than #1. Also, given significant orthostasis and no obvious distress or marked edema will defer diuresis, no recent shortness of breath, chest discomfort, weight gain or peripheral increased edema. BNP requested. Will maintain on telemetry monitoring, given #1 temporary permissive hypertension but will avoid any aggressive fluid administration until assure what process is ongoing, will request repeat echocardiogram as well as records from recent valve replacement to be certain things appear appropriate, will obtain full respiratory viral panel as well as procalcitonin, maintain on fall precautions, PT/OT/case management as noted above concurrently. #3. Valvular heart disease with recent presumed possible TAVR with previous history of bioprosthetic aortic valve additionally: Patient with last echo in the system noted 09/22/2023 thus this is prior to most recent intervention with normal LV size, severe concentric LVH, LA mildly enlarged, LVEF 30%, moderate to severe global hypokinesis LV, mean aortic valve gradient 49 mmHg, severe aortic stenosis, bioprosthetic aortic valve present, compared to previous LV function reduced and aortic valve appears to be more stenosed. Encourage continued outpatient follow-up with cardiothoracic surgery, cardiology as previously arranged. Records requested to discern exact recent intervention although suspect related with aortic valve for repeat replacement. Repeat echocardiogram requested given presentation as noted. #4. Hypertension: Will temporally hold regimen given number 1 investigation per stroke protocol, as needed agents per stroke order set. #4. Hyperlipidemia: Per current list does not appear to be on any statin therapy, FLP in AM. #5. PAF: We will continue home Eliquis regimen, temporarily holding metoprolol given permissive hypertension, add back once appropriate. #6. Chronic Kidney Disease Stage IIIa per records: Admission BUN/Cr 34/1.48, GFR 36, baseline renal function primarily 1.3-1.6 but did vacillate and was noted to be on 10/creatinine 1.90, repeat BMP in AM. #7. Morbid Obesity: Weight loss and lifestyle changes encourage. #8. GERD with history of gastric ulcer: We will continue patient home PPI. #9. DVT prophylaxis: Will continue patient home Eliquis regimen. #10. CODE status: Patient KHADIJAH is her daughter who is present and living will is currently in place. Discussed CODE status at length including difference between FULL code, DNR-CCA and DNR-CC status. Following discussions about the differences in these status, requested following discussions with her brother Full Code status. Encouraged that following her clinical improvement and discharge that as a family they discussed these as it sounds from discussions these have never been reviewed previously. Advanced Care Planning Face to Face Time: 16 minutes. Charges/Coding Visit Charges Inpatient E&M: 49411 Init Hosp L3 Procedures Hospitalists Procedures: 66650 Advncd Care Plan 30 Min
[2024-01-05 21:52] LABS: Troponin-I HS 24 pg/mL (3.0-54.0)
--- OUTSIDE RECORDS SUMMARY | 2024-01-05 22:10 | XMS RPT_ITS | CCD ---
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 Phone Paige Singer Unavailable Paige Singer Unavailable Paige Singer N Unavailable Yari Hernandez RN Unavailable Unavailable Yari Hernandez RN Unavailable Unavailable Paige Singer Unavailable Shelly Ahuja Unavailable Unavailable SISI Gutierrez, Mónica Wells Unavailable Yari Hernandez RN Unavailable Unavailable Kurt[facility] [phone] KURTIS, SCOTT-CHI Primary Care Unavailable HARJEET HUFFMAN [...] Enzyme (Varun) Inhibitors drug allergy 6 Other [facility] Work Phone: (11 sources) Lisinopril Propensity to adverse reactions 4 [facility] (11 sources) sacubitril Drug Allergy 4 [facility]ough [facility] (11 sources) Valsartan Propensity to adverse reactions [facility] Iodinated Contrast Media Propensity to adverse reactions 4 Hives [facility] Medications Current Medications Medication Drug Class(es) [...] CAPS One tablet by mouth daily CELECOXIB [id number] Mónica Gutierrez PA-C dapagliflozin 10 mg oral [...] One tablet by mouth daily LOSARTAN POTASSIUM [id number] Rhonda Skinner RN metoprolol tartrate 25 mg [...] tablet by mouth twice daily PANTOPRAZOLE SODIUM [id number] Gerald Barragan MD perflutren protein A microsphere [...] aftercare (12 sources) Polypharmacy ; Translations: [Other 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 termite (current) drug therapy] Onset: 11-21-2023 11-21-2023 Episodic Other aftercare (2 sources) Other 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 termite (current) drug therapy; Translations: [Other 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 termite (current) drug therapy] Onset: 11-21-2023 Episodic Other [...] Anion gap [Moles/Vol] 7 mmol/L Normal 3-13 [facility] Comment on above: Performed By: #### L AB15 ####Mass Spec: AIDE RUEDA ([id number])[address] Calcium [Mass/Vol] 9.1 mg/dL Normal 8.4-10.4 [facility] Comment on above: Performed By: #### L AB15 ####Mass Spec: AIDE RUEDA ([id number])[facility])[address] [place] [address] Chloride [Moles/Vol] 108 mmol/L High 98-107 [facility] Comment on above: Performed By: #### L AB15 ####Mass Spec: AIDE RUEDA ([id number])[facility])[address] [place] [address] CO2 [Moles/Vol] 19 mmol/L Low 22-30 [facility] Comment on above: Performed By: #### L AB15 ####Mass Spec: AIDE RUEDA ([id number])[facility] ([facility])[address] [place] [address] Creatinine [Mass/Vol] 1.17 mg/dL High 0.52-1.04 [facility] Comment on above: Performed By: #### L AB15 ####Mass Spec: AIDE RUEDA ([id number])[facility])[address] [place] [address] [place] GLOMERULAR FILTRATION RATE ML/MIN/1.73 SQ M.PREDICTED 46.4 mL/min/1.73m*2 Low >60.0 [facility] Comment on above: Result Comment: Calc ulation based on the Chronic Kidney Disease Epidemiology Collaboration (CKD-EPI) equation refit without adjustment for race Performed By: #### L AB15 ####Mass Spec: AIDE RUEDA ([id number])[facility])[address] [place] [address] Glucose [Mass/Vol] 121 mg/dL High 70-100 [facility] Comment on above: Performed By: #### L AB15 ####Mass Spec: AIDE RUEDA ([id number])[facility])[address] [place] [address] Potassium [Moles/Vol] 4.4 mmol/L Normal 3.5-5.1 [facility] Comment on above: Performed By: #### L AB15 ####Mass Spec: AIDE RUEDA ([id number])[facility])[address] [place] [address] Sodium [Moles/Vol] 134 mmol/L Low 135-145 [facility] Comment on above: Performed By: #### L AB15 ####Mass Spec: AIDE RUEDA ([id number])[facility])[address] [place] [address] Urea nitrogen [Mass/Vol] 31 mg/dL High 7-17 [facility] Comment on above: Performed By: #### L AB15 ####Mass Spec: AIDE RUEDA ([id number])[facility])[address] [place] [address] Basic metabolic 1998 panelon 12-26-2023 Anion gap [Moles/Vol] 7 mmol/L 3 - 13 mmol/L [facility] Calcium [Mass/Vol] 9.1 mg/dL 8.4 - 10. 4 mg/dL [facility] Chloride [Moles/Vol] 108 mmol/L High 98 - 10 7 mmol/L [facility] CO2 [Moles/Vol] 19 mmol/L Low 22 - 30 mmol/L [facility] Creatinine [Mass/Vol] 1.17 mg/dL High 0.52 - 1.04 mg/dL [facility] GFR/1.73 sq M.predicted (S/P/Bld) [Vol rate/Area] 46.4 mL/min Low - PINF [facility] Comment on above: Calculation based on the Chronic Kidney Disease Epidemiology Collaboration (CKD-EPI) equation refit without adjustment for race Glucose [Mass/Vol] 121 mg/dL High 70 - 100 mg/dL [facility] Interpretation and review of laboratory results Abnormal [facility] Potassium [Moles/Vol] 4.4 mmol/L 3.5 - 5.1 mmol/L [facility] Sodium [Moles/Vol] 134 mmol/L Low 135 - 145 mmol/L [facility] Urea nitrogen [Mass/Vol] 31 mg/dL High 7 - 17 mg/dL [facility] CBC (HEMOGRAM)on 12-26-2023 Erythrocyte distribution width (RBC) [Ratio] 13.3 % Normal 11.5-15.0 [facility] Comment on above: Performed By: #### L [id number] ####Mass Spec: AIDE RUEDA ([id number])[facility] ([facility])[address] [place] [address] Hematocrit (Bld) [Volume fraction] 43.0 % Normal 35.0-47.0 [facility] Comment on above: Performed By: #### L [id number] ####Mass Spec: AIDE RUEDA ([id number])[facility])[address] [place] [address] Hemoglobin (Bld) [Mass/Vol] 14.0 g/dL Normal 11.7-16.0 [facility] Comment on above: Performed By: #### L [id number] ####Mass Spec: AIDE RUEDA ([id number])[facility])[address] [place] [address] MCH (RBC) [Entitic mass] 31.9 pg Normal 26.0-34.0 [facility] Comment on above: Performed By: #### L [id number] ####Mass Spec: AIDE RUEDA ([id number])[facility])[address] [place] [address] MCHC 32.6 % Normal 30.5-36.0 [facility] Comment on above: Performed By: #### L [id number] ####Mass Spec: AIDE RUEDA ([id number])[facility])[address] [place] [address] MCV (RBC) [Entitic vol] 97.9 fL Normal 77.0-99.0 S [facility] Comment on above: Performed By: #### L [id number] ####Mass Spec: AIDE RUEDA ([id number])[facility])[address] [place] [address] Platelet mean volume (Bld) [Entitic vol] 12.4 fL Normal 9.0-12.7 [facility] Comment on above: Performed By: #### L [id number] ####Mass Spec: AIDE RUEDA ([id number])[facility])[address] [place] [address] Platelets (Bld) [#/Vol] 154 10*3/uL Normal 140-440 [facility] Comment on above: Performed By: #### L [id number] ####Mass Spec: AIDE RUEDA ([id number])[facility])[address] [place] [address] RBC (Bld) [#/Vol] 4.39 10*6/uL Normal 3.80-5.20 [facility] Comment on above: Performed By: #### L [id number] ####Mass Spec: AIDE RUEDA ([id number])[facility] ([facility])[address] [place] [address] WBC (Bld) [#/Vol] 11.6 10*3/uL High 3.6-10.7 [facility] Comment on above: Performed By: #### L [id number] ####Mass Spec: AIDE RUEDA ([id number])[facility] ([facility])[address] [place] [address] CBC panel Auto (Bld)on 12-25 Erythrocyte distribution width (RBC) [Ratio] 13.3 % 11.5 - 15.0 % [facility] Hematocrit (Bld) [Volume fraction] 43.0 % 35.0 - 47.0 % [facility] Hemoglobin (Bld) [Mass/Vol] 14.0 g/dL 11.7 - 16.0 g/dL [facility] Interpretation and review of laboratory results Abnormal [facility] MCH (RBC) [Entitic mass] 31.9 pg 26.0 - 34.0 pg [facility] MCHC (RBC) [Mass/Vol] 32.6 % 30.5 - 36.0 % [facility] MCV (RBC) [Entitic vol] 97.9 fL 77.0 - 99.0 fL [facility] Platelet mean volume (Bld) [Entitic vol] 12.4 fL 9.0 - 12.7 fL [facility] Platelets (Bld) [#/Vol] 154 10*3/uL 140 - 440 10*3/uL [facility] RBC (Bld) [#/Vol] 4.39 10*6/uL 3.80 - 5.2 0 10*6/uL [facility] WBC (Bld) [#/Vol] 11.6 10*3/uL High 3.6 - 10.7 10*3/uL [facility] ECG 12-LEADon 12-26-2023 ECG 12-LEAD IMPRESSION: Atrial fibrillation with slow ventricular rate Repol abnrm suggests ischemia, diffuse leads Electronically Signed On 12-26-2023 16:26:55 EDT by Austin Carmona Normal [facility] No Panel InformationOrdered By: Austin Carmona on 12-26-2023 P [place] 0 degrees [facility] [employer] Work Phone: [place] Interval 0 ms [employer] [facility] Work Phone: QRS [place] 48 degrees [employer] Work Phone: QRSD Interval 103 ms [employer] Work Phone: QT Interval 492 ms [employer] Work Phone: QTC Interval 404 ms [employer] Work Phone: T Wave [place] -74 degrees [employer] [facility] Work Phone: [employer] Work Phone: No Panel Informationon 12-25 Atrial fibrillation with slow ventricular rate Repol abnrm suggests ischemia, diffuse leads Electronically Signed On 12-26-2023 16:26:55 EDT by Austin Carmona Austin Kruger MD - 12/26/2023 IMPRESSION: Atrial fibrillation with slow ventricular rate Repol abnrm suggests ischemia, diffuse leads Electronically Signed On 12-26-2023 16:26:55 EDT by Austin Carmona [facility] [employer] P [place] 0 degrees [facility] [employer] [place] Interval 0 ms [facility] [employer] QRS [place] 22 degrees [facility] [employer] QRSD Interval 112 ms [facility] Campaign [employer] QT Interval 441 ms [facility] [employer] QTC Interval 405 ms [facility] [employer] T Wave [place] 230 degrees [facility] Austin Carmona MD - 12/26/2023 IMPRESSION: Atrial fibrillation Poor R wave progression, CONSIDER ANTERIOR INFARCT ST and T abnormality Electronically Signed On 12-26-2023 09:21:43 EDT by Austin Carmona [facility] Nursing Noteon 12-26-2023 Nursing Note Discharge instructions given to patient and daughter. Patient verbalizes understanding of medication changes and follow up appointments, and activity restrictions. Discharged to home with daughter. Normal [facility] [employer] [facility] US Heart TransthoracicOrdere d By: Christopher Ruggiero on 12-26-2023 Ao Root Index 1.47 cm/m2 [facility] Work Phone: Aortic Root 3.1 cm [employer] Work Phone: Aortic Sinus Valsalva 3.1 cm [facility] Work Phone: Aortic Sinus Valsalva Index 1.47 cm/m2 [facility] Work Phone: Ascending Aorta 3.6 cm [facility] Work Phone: Ascending Aorta Index 1.71 cm/m2 [facility] Work Phone: AV Area by Peak Velocity 0.6 cm2 [facility] Work Phone: AV Area by [...] ealth Work Phone: AV VTI 71.0 cm [facility] Work Phone: RAMÓN/BSA Peak Velocity 0.3 cm2/m2 [facility] Work Phone: RMAÓN/BSA VTI 0.6 cm2/m2 [facility] Work Phone: E/E' Lateral 11.25 [facility] Work Phone: E/E' Ratio (Averaged) 16.88 [facility] Work Phone: E/E' Septal 22.50 [facility] Work Phone: EF BP 36 % Abnormal 55 - 100 % [facility] Work Phone: Est. RA Pressure 3 mmHg [facility] Work Phone: Fractional Shortening 2D 29 % 28 - 44 % [facility] Work Phone: Interpretation and review of laboratory results Abnormal [facility] Work Phone: IVC Diameter 2.2 cm [facility] Work Phone: IVSd 1.4 cm Abnormal 0.6 - 0.9 cm [facility] Work Phone: LA Diameter 4.9 cm [facility] Work Phone: LA Size Index 2.32 cm/m2 [facility] [employer] Work Phone: LA Volume 2C 111 mL Abnormal 22 - 52 mL [facility] Work Phone: LA Volume 4C 131 mL Abnormal 22 - 52 mL [facility] Work Phone: LA Volume A/L 137 mL [facility] [employer] Work Phone: LA Volume BP 127 mL Abnormal 22 - 52 mL [facility] Work Phone: LA Volume Index 2C 53 mL/m2 Abnormal 16 - 34 mL/m2 [facility] Work Phone: LA Volume Index 4C 62 mL/m2 Abnormal 16 - 34 mL/m2 [facility] Work Phone: LA Volume Index A/L 65 mL/m2 16 - 34 mL/m2 [facility] Work Phone: LA Volume Index BP 60 ml/m2 Abnormal 16 - 34 ml/m2 [facility] Work Phone: LA/AO Root Ratio 1.58 [facility] Work Phone: LV E' Lateral Velocity 8 cm/s [facility] Work Phone: LV E' Septal Velocity 4 cm/s [facility] Work Phone: LV EDV A2C 137 mL [facility] Work Phone: LV EDV A4C 145 mL [facility] Work Phone: LV EDV BP 148 mL Abnormal 56 - 104 mL [facility] Health Work Phone: LV EDV Index A2C 65 mL/m2 [facility] Work Phone: LV EDV Index A4C 69 mL/m2 [facility] Work Phone: LV EDV Index BP 70 mL/m2 [facility] [employer] Work Phone: LV Ejection Fraction A2C 36 % [facility] Work Phone: LV Ejection Fraction A4C 35 % [facility] Work Phone: LV ESV A2C 88 mL [facility] Work Phone: LV ESV A4C 94 mL [facility] Work Phone: LV ESV BP 95 mL Abnormal 19 - 49 mL [facility] Work Phone: LV ESV Index A2C 42 mL/m2 [facility] Sequence Design [facility] Work Phone: LV ESV Index A4C 45 mL/m2 [facility] Sequence Design [facility] Work Phone: LV ESV Index BP 45 mL/m2 [facility] Work Phone: LV Mass 2D 355.3 g Abnormal 67 - 162 g [facility] Health Work Phone: LV Mass 2D Index 168.4 g/m2 Abnormal 43 - 95 g/m2 [facility] [employer] Work Phone: LV RWT Ratio 0.55 [facility] [employer] Work Phone: LVIDd 5.5 cm Abnormal 3.9 - 5.3 cm [facility] [employer] Work Phone: LVIDd Index 2.61 cm/m2 [facility] [employer] Work Phone: LVIDs 3.9 cm [facility] Health Work Phone: LVIDs Index 1.85 cm/m2 [facility] [employer] Work Phone: LVOT Area 4.2 cm2 [facility] Health Work Phone: LVOT Cardiac Output 3.1 liter/mi nut e [employer] [facility] Work Phone: LVOT Diameter 2.3 cm [facility] Work Phone: LVOT Mean Gradient 2 mmHg [facility] Work Phone: LVOT Peak Gradient 3 mmHg [facility] Work Phone: LVOT Peak Velocity 0.8 m/s [facility] Work Phone: LVOT Stroke Volume Index 45.3 mL/m2 [facility] Health Work Phone: LVOT SV 95.5 ml [facility] Health Work Phone: LVOT VTI 23.0 cm [facility] Work Phone: LVOT:AV VTI Index 0.32 [facility] H ealth Work Phone: LVPWd 1.5 cm Abnormal 0.6 - 0.9 cm [facility] Health Work Phone: MR VTI 167.4 cm [facility] Health Work Phone: MV A Velocity 0.53 m/s [facility] Work Phone: MV Area by PHT 3.0 cm2 [facility] Heal th Work Phone: MV Area by VTI 2.1 cm2 [facility] Heal th Work Phone: MV E Velocity 0.90 m/s [facility] Work Phone: MV E Wave Deceleration Time 149.3 ms [facility] Health Work Phone: MV E/A 1.70 [facility] Health Work Phone: MV Max Velocity 1.2 m/s [facility] Work Phone: MV Mean Gradient 2 mmHg [facility] Work Phone: MV Mean Velocity 0.6 m/s [facility] Work Phone: MV Nyquist Velocity 30 cm/s [facility] Work Phone: MV Peak Gradient 6 mmHg [facility] Work Phone: MV PHT 73.0 ms [facility] Health Work Phone: MV Regurg Velocity PISA 5.3 m/s [facility] Health Work Phone: MV VTI 46.5 cm [facility] Health Work Phone: MV:LVOT VTI Index 2.02 [facility] Work Phone: RA Area 4C 65.2 mL [facility] Health Work Phone: RV Basal Dimension 3.4 cm [facility] Health Work Phone: RV Free Wall Peak S' 9 cm/s [facility] Work Phone: RV Mid Dimension 1.4 cm [facility] He alth Work Phone: RVSP 41 mmHg [facility] Health Work Phone: Sinotubular Junction 2.5 cm [facility] Work Phone: TAPSE 1.7 cm 1.7 cm [facility] Health Work Phone: TR Max Velocity 3.10 m/s [facility] lt Work Phone: [facility] Health Work Phone: Heart Transthoracicon Left Ventricle: [...] on 12-26-2023 Heart rate 37 /min bpm [facility] [employer] Work Phone: Vital signson 12-26-2023 Heart rate 51 /min bpm [facility] BASIC METABOLIC PANELon 10-0 Anion gap [Moles/Vol] 9 mmol/L Normal 3-13 [facility] Comment on above: Performed By: #### L AB15 ####Mass Spec: AIDE RUEDA ([id number])[facility] ([facility])[address] [place] [address] Calcium [Mass/Vol] 8.5 mg/dL Normal 8.4-10.4 [facility] Comment on above: Performed By: #### L AB15 ####Mass Spec: AIDE RUEDA ([id number])[facility] ([facility])[address] [place] [address] Chloride [Moles/Vol] 113 mmol/L High 98-107 [facility] Comment on above: Performed By: #### L [id number] ####Mass Spec: AIDE RUEDA ([id number])[facility] ([facility])[address] [place] [address] CO2 [Moles/Vol] 19 mmol/L Low 22-30 [facility] Comment on above: Performed By: #### L [id number] ####Mass Spec: AIDE RUEDA ([id number])[facility])[address] [place] [address] Creatinine [Mass/Vol] 1.09 mg/dL High 0.52-1.04 [facility] Comment on above: Performed By: #### L AB15 ####Mass Spec: AIDE RUEDA ([id number])[facility])[address] [place] [address] GLOMERULAR FILTRATION RATE ML/MIN/1.73 SQ M.PREDICTED 50.5 mL/min/1.73m*2 Low >60.0 [facility] Comment on above: Result Comment: Calc ulation based on the Chronic Kidney Disease Epidemiology Collaboration (CKD-EPI) equation refit without adjustment for race ORDER COMMENTS: Slightly Hemolyzed. Interpret {TESTS AFFECTED BY SLIGHT HEMOLYSIS:12867} with caution. Performed By: #### L AB15 ####Mass Spec: AIDE RUEDA ([id number])[facility])[address] [place] [address] Glucose [Mass/Vol] 148 mg/dL High 70-100 [facility] Comment on above: Performed By: #### L AB15 ####Mass Spec: AIDE RUEDA ([id number])[facility])[address] [place] [address] [place] Potassium [Moles/Vol] 4.7 mmol/L Normal 3.5-5.1 [facility] Comment on above: Performed By: #### L AB15 ####Mass Spec: AIDE RUEDA ([id number])[facility])[address] [place] [address] [place] Sodium [Moles/Vol] 141 mmol/L Normal 135-145 [facility] Comment on above: Performed By: #### L AB15 ####Mass Spec: AIDE RUEDA ([id number])[facility] ([facility])[address] [place] [address] Urea nitrogen [Mass/Vol] 28 mg/dL High 7-17 [facility] Comment on above: Performed By: #### L AB15 ####Mass Spec: AIDE RUEDA ([id number])[facility] ([facility])[address] [place] [address] BLOOD TYPE AND SCREEN GELon 12-25-2023 ABO GROUPING O Normal [facility] Comment on above: Performed By: #### L [id number] ####Mass Spec: AIDE RUEDA ([id number])[facility] ([facility])[address] [place] [address] RH TYPE IN BLOOD Positive Normal [facility] Comment on above: Performed By: #### L [id number] ####Mass Spec: AIDE RUEDA ([id number])[facility] ([facility])[address] [place] [address] Basic metabolic 1998 panelon 12-25-2023 Anion gap [Moles/Vol] 9 mmol/L 3 - 13 mmol/L [facility] Calcium [Mass/Vol] 8.5 mg/dL 8.4 - 10. 4 mg/dL [facility] Chloride [Moles/Vol] 113 mmol/L High 98 - 10 7 mmol/L [facility] CO2 [Moles/Vol] 19 mmol/L Low 22 - 30 mmol/L [facility] Creatinine [Mass/Vol] 1.09 mg/dL High 0.52 - 1.04 mg/dL [facility] GFR/1.73 sq M.predicted (S/P/Bld) [Vol rate/Area] 50.5 mL/min Low - PINF [facility] Comment on above: Calculation based on the Chronic Kidney Disease Epidemiology Collaboration (CKD-EPI) equation refit without adjustment for race Glucose [Mass/Vol] 148 mg/dL High 70 - 100 mg/dL [facility] Interpretation and review of laboratory results Abnormal [facility] Potassium [Moles/Vol] 4.7 mmol/L 3.5 - 5.1 mmol/L [facility] Sodium [Moles/Vol] 141 mmol/L 135 - 145 mmol/L [facility] Urea nitrogen [Mass/Vol] 28 mg/dL High 7 - 17 mg/dL [facility] Slightly Hemolyzed. Interpret {TESTS AFFECTED BY SLIGHT HEMOLYSIS:99427} with caution. [facility] Blood type and Crossmatch pa justin (Bld)on 12-25-2023 ABO group Nom (Bld) O [facility] Blood group antibody screen GEL Ql Negative [facility] D Ag Ql (RBC) Positive [facility] Healt [facility] CBC (HEMOGRAM)on 12-25-2023 Erythrocyte distribution width (RBC) [Ratio] 13.3 % Normal 11.5-15.0 [facility] Comment on above: Performed By: #### L [id number] ####Mass Spec: AIDE RUEDA ([id number])[address] Hematocrit (Bld) [Volume fraction] 39.5 % Normal 35.0-47.0 [facility] Comment on above: Performed By: #### L [id number] ####Mass Spec: AIDE RUEDA ([id number])[address] Hemoglobin (Bld) [Mass/Vol] 13.0 g/dL Normal 11.7-16.0 [facility] Comment on above: Performed By: #### L [id number] ####Mass Spec: AIDE RUEDA ([id number])[address] MCH (RBC) [Entitic mass] 31.9 pg Normal 26.0-34.0 [facility] Comment on above: Performed By: #### L [id number] ####Mass Spec: AIDE RUEDA ([id number])[address] MCHC 32.9 % Normal 30.5-36.0 [facility] Comment on above: Performed By: #### L [id number] ####Mass Spec: AIDE RUEDA ([id number])[facility] ([facility])[address] [place] [address] MCV (RBC) [Entitic vol] 97.1 fL Normal 77.0-99.0 S [facility] Comment on above: Performed By: #### L [id number] ####Mass Spec: AIDE RUEDA ([id number])[facility])[address] [place] [address] Platelet mean volume (Bld) [Entitic vol] 12.2 fL Normal 9.0-12.7 [facility] Comment on above: Performed By: #### L [id number] ####Mass Spec: AIDE RUEDA ([id number])[facility])[address] [place] [address] Platelets (Bld) [#/Vol] 140 10*3/uL Normal 140-440 [facility] Comment on above: Performed By: #### L [id number] ####Mass Spec: AIDE RUEDA ([id number])[facility])[address] [place] [address] RBC (Bld) [#/Vol] 4.07 10*6/uL Normal 3.80-5.20 [facility] Comment on above: Performed By: #### L [id number] ####Mass Spec: AIDE RUEDA ([id number])[facility])[address] [place] [address] WBC (Bld) [#/Vol] 9.1 10*3/uL Normal 3.6-10.7 [facility] Comment on above: Performed By: #### L [id number] ####Mass Spec: AIDE RUEDA ([id number])[facility])[address] [place] [address] CBC panel Auto (Bld)on 12-24 Erythrocyte distribution width (RBC) [Ratio] 13.3 % 11.5 - 15.0 % [facility] Hematocrit (Bld) [Volume fraction] 39.5 % 35.0 - 47.0 % [facility] Hemoglobin (Bld) [Mass/Vol] 13.0 g/dL 11.7 - 16.0 g/dL [facility] Interpretation and review of laboratory results Normal [facility] MCH (RBC) [Entitic mass] 31.9 pg 26.0 - 34.0 pg [facility] MCHC (RBC) [Mass/Vol] 32.9 % 30.5 - 36.0 % [facility] MCV (RBC) [Entitic vol] 97.1 fL 77.0 - 99.0 fL [facility] Platelet mean volume (Bld) [Entitic vol] 12.2 fL 9.0 - 12.7 fL [facility] Platelets (Bld) [#/Vol] 140 10*3/uL 140 - 440 10*3/uL [facility] RBC (Bld) [#/Vol] 4.07 10*6/uL 3.80 - 5.2 0 10*6/uL [facility] WBC (Bld) [#/Vol] 9.1 10*3/uL 3.6 - 10.7 10*3/uL [facility] Cardiac catheterization stud n 12-25-2023 Successful ujxca-ef-bodxv TAVR with a 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 Via right radial artery, a 6-Haitian sheath was placed and the pigtail catheter was placed into the aortic annulus with confirmation the implant angle. Via the left femoral artery, a 6-Haitian sheath was placed. The patient was then heparinized. Next, two Perclose devices were used using the pre-close strategy. A Super Stiff wire was then placed through the second Perclose into the descending aorta. Then, a 14-Haitian Soumya E-sheath was introduced over the wire [...] care of your patient while hospitalized at [facility]. I will continue to follow along while hospitalized. Please do not hesitate to call with any questions. [facility] Jag.ag [facility] Jag.ag No Panel Informationon 12-24 Blood Expiration Date S [facility] Blood Expiration Date S [facility] Crossmatch interpretation COMP [facility] Dispense Status Crossmatch [facility] Product Blood Type 5100 [facility] [employer] PRODUCT CODE [id number] [facility] [employer]ag PRODUCT CODE [id number] [facility] Unit ABO O [facility] Unit Number [id number] [facility] Number [id number] [facility] RH Positive [facility] Unit Volume 300 mL [facility] Op Noteon 12-25-2023 Op Note Date of [...] The valve was passed through the 14 Haitian sapient E sheath into the descending thoracic [...] was decannulated transferred stable to recovery. Normal [employer] Jag.ag [facility] Heart TransthoracicOrdere d By: Otto Fernandez on 12-25-2023 AV Area (Pre-TAVR) 0.3 cm2 [facility] Work Phone: AV Area by Peak Velocity 0.7 cm2 [facility] Health Work Phone: AV Area by VTI 0.7 cm2 [facility] th Work Phone: AV Mean Gradient 14 mmHg [facility] alth Work Phone: AV Mean Gradient (Pre-TAVR) 59 mmHg [facility] Work Phone: AV Mean Velocity 1.7 m/s [facility] Luis [facility] alth Work Phone: AV Peak Gradient 25 mmHg [facility] Work Phone: AV Peak Gradient (Pre-TAVR) 93 mmHg [facility] Work Phone: AV Peak Velocity 2.5 m/s [facility] Work Phone: AV Peak Velocity (Pre-TAVR) 4.8 m/s [facility] Work Phone: AV Velocity Ratio 0.20 [facility] Work Phone: AV VTI 60.2 cm [facility] Work Phone: RAMÓN/BSA Peak Velocity 0.3 cm2/m2 [facility] Health Work Phone: RAMÓN/BSA VTI 0.3 cm2/m2 [facility] Work Phone: Est. RA Pressure 3 mmHg [facility] He alth Work Phone: LVOT Area 3.1 cm2 [facility] Health Work Phone: LVOT Cardiac Output 1.6 liter/mi nut e [facility] Work Phone: LVOT Diameter 2.0 cm [facility] Healt h Work Phone: LVOT Mean Gradient 1 mmHg [facility] Work Phone: LVOT Peak Gradient 1 mmHg [facility] Work Phone: LVOT Peak Velocity 0.5 m/s [facility] Work Phone: LVOT Stroke Volume Index 20.6 mL/m2 [facility] Work Phone: LVOT SV 42.7 ml [facility] Work Phone: LVOT VTI 13.6 cm [facility] Work Phone: LVOT:AV VTI Index 0.23 [facility] Work Phone: RVSP 51 mmHg [facility] Work Phone: TR Max Velocity 3.45 m/s [facility] Work Phone: TR Peak Gradient 48 mmHg [facility] Work Phone: [facility] [...] mmHg Plus the RA. Aortic Valve Lucia Suomya 3 Ultra bioprosthetic aortic valve with a [...] a supine position. No contrast was given. [facility] CT ANGIOGRAM TAVRon 12-22-19 CT ANGIOGRAM TAVR [...] 12/22/2023 11:10 AM EDT --------ORIGINAL REPORT -------- [facility] Valve [facility] Cardiovascular CTA Indication: 83 year-old woman with severe aortic stenosis, being evaluated for transcatheter aortic valve implantation. Technique: Computed tomography of the heart, thoracoabdominal aorta, and iliofemoral system was performed using a [employer] Aquilion One 320 detector scanner. Images were [...] HIGGINS MEGGAN Reason For Exam: aortic stenosis [facility] Valve [facility] CTA Indication: 83 year-old woman with severe aortic stenosis, being evaluated for transcatheter aortic valve implantation. Technique: Computed tomography of the heart, thoracoabdominal aorta, and iliofemoral system was performed usi (more content not included)... Normal [facility] 36on 12-21-2023 36 Patient has stage 3 b- 4 CKD, stable compared to previous. OK to proceed. Normal [facility] 36 BMP received, reviewed, WHIT to enter, Creat 1.9 GFR 27. Teofilo David CNP to review. Normal [facility] 36 I called [facility] for BMP, left message w/ OP lab to fax results. Normal [facility] 36on 12-18-2023 36 I can not make any changes or cx the No Show b/c it's past. [place] [address]on 12-16-2023 36 Name of caller: Brianne Contact phone number: [phone] Relationship to Patient: patient Provider: Mónica David APRN-SIM Practice: [facility] Chief Complaint/Reason for Call: Patient had 3 [...] business hours to return their call: N/A [facility] 12-15-2023 36 Lab order faxed to [facility] [phone]/[facility] 12-14-2023 36 Per Teofilo David DNP, will get BMP done on 12/19/23 in [place], RX for Prednisone pended. [place] to fax lab order to [facility], pt notified via phone and verbalizes understanding. [place] 7502812-13-2023 36 Pt returned my call, no further issues w/ itching/hives from contrast allergy. I reviewed need for BMP and Prednisone before TAVR. Of note, pt was unaware of any renal insufficiency in the past. Will discuss timing of BMP w/ Teofilo David DNP. [facility] 36 Per Teofilo David DNP, pt had allergic reaction to CTA contrast yesterday, and pt with increase in Creat. Plan for Dye Allergy Prep meds will be needed, and repeat BMP. I left vm message for pt to return call. Normal [facility] BLOOD TYPE AND SCREEN [facility]12-12-2023 ABO GROUPING O Normal [facility] Comment on above: Performed By: #### L [id number] ####Mass Spec: AIDE RUEDA ([id number])[facility] ([facility])[address] [place] [address] RH TYPE IN BLOOD Positive [facility] Comment on above: Performed By: #### L [id number] ####Mass Spec: AIDE RUEDA ([id number])[facility] ([facility])[address] [place] [address] Blood type and Crossmatch pa justin (Bld)on 12-12-2023 ABO group Nom (Bld) O [facility] Blood group antibody screen GEL Ql Negative [facility] D Ag Ql (RBC) [facility] CBC W Auto Differential pane l (Bld)on 12-12-2023 Basophils (Bld) [#/Vol] 0.1 10*3/uL 0.0 - 0.2 10*3/uL [facility] Basophils/100 WBC (Bld) 1.3 % 0.0 - 2.0 % [facility] Eosinophils (Bld) [#/Vol] 0.1 10*3/uL 0.0 - 0.5 10*3/uL [facility] Eosinophils/100 WBC (Bld) 2.0 % 0.0 - 6.0 % [facility] Erythrocyte distribution width (RBC) [Ratio] 13.1 % 11.5 - 15.0 % [facility] Hematocrit (Bld) [Volume fraction] 48.1 % High 35.0 - 47.0 % [facility] Hemoglobin (Bld) [Mass/Vol] 16.0 g/dL 11.7 - 16.0 g/dL [facility] Immature granulocytes (Bld) [#/Vol] 0.1 10*3/uL High NINF - 0.1 10*3/uL [facility] Jag.ag Immature granulocytes/100 WBC (Bld) 0.7 % 0.0 - 2.0 % [facility] Interpretation and review of laboratory results Abnormal [facility] Lymphocytes (Bld) [#/Vol] 1.6 10*3/uL 1.0 - 4.3 10*3/uL [facility] Lymphocytes/100 WBC (Bld) 23.0 % 15.0 - 45.0 % [facility] MCH (RBC) [Entitic mass] 31.7 pg 26.0 - 34.0 pg [facility] MCHC (RBC) [Mass/Vol] 33.3 % 30.5 - 36.0 % [facility] MCV (RBC) [Entitic vol] 95.2 fL 77.0 - 99.0 fL [facility] Monocytes (Bld) [#/Vol] 1.0 10*3/uL High 0.0 - 0.9 10*3/uL [facility] Monocytes/100 WBC (Bld) 14.2 % High 5.0 - 13.0 % [facility] Neutrophils (Bld) [#/Vol] 4.0 10*3/uL 1.8 - 7.5 10*3/uL [facility] Neutrophils/100 WBC (Bld) 58.8 % 38.0 - 82.0 % [facility] Nucleated RBC/100 WBC (Bld) [Ratio] 0.0 % [facility] Platelet mean volume (Bld) [Entitic vol] 13.0 fL High 9.0 - 12.7 fL [facility] Platelets (Bld) [#/Vol] 194 10*3/uL 140 - 440 10*3/uL [facility] RBC (Bld) [#/Vol] 5.05 10*6/uL 3.80 - 5.2 0 10*6/uL [facility] WBC (Bld) [#/Vol] 6.9 10*3/uL 3.6 - 10.7 10*3/uL [facility] CBC WITH AUTO DIFFERENTIALon 12-12-2023 Basophils (Bld) [#/Vol] 0.1 10*3/uL Normal 0.0-0.2 [facility] Comment on above: Performed By: #### L [id number] #### Mass Spec: AIDE RUEDA ([id number]) [facility]) [address] [place] [address] Basophils/100 WBC (Bld) 1.3 % Normal 0.0-2.0 S [facility] Comment on above: Performed By: #### L [id number] #### Mass Spec: AIDE RUEDA ([id number]) [facility] ([facility]) [address] [place] [address] [place] Eosinophils (Bld) [#/Vol] 0.1 10*3/uL Normal 0.0-0.5 [facility] Comment on above: Performed By: #### L [id number] #### Mass Spec: AIDE RUEDA ([id number]) [facility] ([facility]) [address] [place] [address] [place] Eosinophils/100 WBC (Bld) 2.0 % Normal 0.0-6.0 [facility] Comment on above: Performed By: #### L [id number] #### Mass Spec: AIDE RUEDA ([id number]) [address] Erythrocyte distribution width (RBC) [Ratio] 13.1 % Normal 11.5-15.0 [facility] Comment on above: Performed By: #### L [id number] #### Mass Spec: AIDE RUEDA ([id number]) [facility]) [address] [place] [address] Hematocrit (Bld) [Volume fraction] 48.1 % High 35.0-47.0 [facility] Comment on above: Performed By: #### L [id number] #### Mass Spec: AIDE RUEDA ([id number]) [address] Hemoglobin (Bld) [Mass/Vol] 16.0 g/dL Normal 11.7-16.0 [facility] Comment on above: Performed By: #### L [id number] #### Mass Spec: AIDE RUEDA ([id number]) [address] IMMATURE GRANS % 0.7 % Normal 0.0-2.0 [facility] Comment on above: Performed By: #### L [id number] #### Mass Spec: AIDE RUEDA ([id number]) [address] IMMATURE GRANS ABSOLUTE 0.1 10*3/uL High <0.1 [facility] Comment on above: Performed By: #### L [id number] #### Mass Spec: AIDE RUEDA ([id number]) [address] Lymphocytes (Bld) [#/Vol] 1.6 10*3/uL Normal 1.0-4.3 [facility] Comment on above: Performed By: #### L [id number] #### Mass Spec: AIDE RUEDA ([id number]) [facility] ([facility]) [address] [place] [address] Lymphocytes/100 WBC (Bld) 23.0 % Normal 15.0-45.0 [facility] Comment on above: Performed By: #### L [id number] #### Mass Spec: AIDE RUEDA ([id number]) [facility]) [address] [place] [address] MCH (RBC) [Entitic mass] 31.7 pg Normal 26.0-34.0 [facility] Comment on above: Performed By: #### L [id number] #### Mass Spec: AIDE RUEDA ([id number]) [facility]) [address] [place] [address] MCHC 33.3 % Normal 30.5-36.0 [facility] Comment on above: Performed By: #### L [id number] #### Mass Spec: AIDE RUEDA ([id number]) [facility] ([facility]) [address] [place] [address] MCV (RBC) [Entitic vol] 95.2 fL Normal 77.0-99.0 S [facility] Comment on above: Performed By: #### L [id number] #### Mass Spec: AIDE RUEDA ([id number]) [facility]) [address] [place] [address] Monocytes (Bld) [#/Vol] 1.0 10*3/uL High 0.0-0.9 [facility] Comment on above: Performed By: #### L [id number] #### Mass Spec: AIDE RUEDA ([id number]) [facility]) [address] [place] [address] Monocytes/100 WBC (Bld) 14.2 % High 5.0-13.0 S [facility] Comment on above: Performed By: #### L [id number] #### Mass Spec: AIDE RUEDA ([id number]) [facility]) [address] [place] [address] NEUTROPHILS ABSOLUTE 4.0 10*3/uL Normal 1.8-7.5 [facility] Comment on above: Performed By: #### L [id number] #### Mass Spec: AIDE RUEDA ([id number]) [facility]) [address] [place] [address] Neutrophils/100 WBC (Bld) 58.8 % Normal 38.0-82.0 [facility] Comment on above: Performed By: #### L [id number] #### Mass Spec: AIDE RUEDA ([id number]) [facility] ([facility]) [address] [place] [address] NRBC 0.0 /100 WBCs Normal 0.0-2.0 [facility] Comment on above: Performed By: #### L [id number] #### Mass Spec: AIDE RUEDA ([id number]) [facility]) [address] [place] [address] Platelet mean volume (Bld) [Entitic vol] 13.0 fL High 9.0-12.7 [facility] Comment on above: Performed By: #### L [id number] #### Mass Spec: AIDE RUEDA ([id number]) [facility] ([facility]) [address] [place] [address] [place] Platelets (Bld) [#/Vol] 194 10*3/uL Normal 140-440 [facility] Comment on above: Performed By: #### L [id number] #### Mass Spec: AIDE RUEDA ([id number]) [facility]) [address] [place] [address] [place] RBC (Bld) [#/Vol] 5.05 10*6/uL Normal 3.80-5.20 [facility] Comment on above: Performed By: #### L [id number] #### Mass Spec: AIDE RUEDA ([id number]) [facility]) [address] [place] [address] [place] WBC (Bld) [#/Vol] 6.9 10*3/uL Normal 3.6-10.7 [facility] Comment on above: Performed By: #### L [id number] #### Mass Spec: AIDE RUEDA ([id number]) [facility]) [address] [place] [address] COMPREHENSIVE METABOLIC PANE [place] 12-12-2023 Albumin [Mass/Vol] 4.1 g/dL Normal 3.5-5.0 [facility] Comment on above: Performed By: #### L [id number], LAB17 ####Mass Spec: AIDE RUEDA ([id number])[facility] ([facility])[address] [place] [address] ALP [Catalytic activity/Vol] 70 U/L Normal 38-126 [facility] Comment on above: Performed By: #### L [id number], LAB17 ####Mass Spec: AIDE RUEDA ([id number])[facility])[address] [place] [address] ALT [Catalytic activity/Vol] 18 U/L Normal 0-34 [facility] Comment on above: Performed By: #### L [id number], LAB17 ####Mass Spec: AIDE RUEDA ([id number])[facility] ([facility])[address] [place] [address] Anion gap [Moles/Vol] 11 mmol/L Normal 3-13 [facility] Comment on above: Performed By: #### L [id number], LAB17 ####Mass Spec: AIDE RUEDA ([id number])[facility])[address] [place] [address] AST [Catalytic activity/Vol] 52 U/L High 15-46 [facility] Comment on above: Performed By: #### L [id number], LAB17 ####Mass Spec: AIDE RUEDA ([id number])[facility])[address] [place] [address] Bilirubin [Mass/Vol] 1.0 mg/dL Normal 0.2-1.3 [facility] Comment on above: Performed By: #### L [id number], LAB17 ####Mass Spec: IADE RUEDA ([id number])[facility] ([facility])[address] [place] [address] [place] Calcium [Mass/Vol] 9.3 mg/dL Normal 8.4-10.4 [facility] Comment on above: Performed By: #### L [id number], LAB17 ####Mass Spec: AIDE RUEDA ([id number])[facility] ([facility])[address] [place] [address] [place] Chloride [Moles/Vol] 103 mmol/L Normal 98-107 [facility] Comment on above: Performed By: #### L [id number], LAB17 ####Mass Spec: AIDE RUEDA ([id number])[facility] ([facility])[address] [place] [address] CO2 [Moles/Vol] 22 mmol/L Normal 22-30 [facility] Comment on above: Performed By: #### L [id number], LAB17 ####Mass Spec: AIDE RUEDA ([id number])[facility] ([facility])[address] [place] [address] [place] Creatinine [Mass/Vol] 1.95 mg/dL High 0.52-1.04 [facility] Comment on above: Performed By: #### L [id number], LAB17 ####Mass Spec: AIDE RUEDA ([id number])[facility])[address] [place] [address] [place] GLOMERULAR FILTRATION RATE ML/MIN/1.73 SQ M.PREDICTED 25.1 mL/min/1.73m*2 Low >60.0 [facility] Comment on above: Result Comment: Calc ulation based on the Chronic Kidney Disease Epidemiology Collaboration (CKD-EPI) equation refit without adjustment for race ORDER COMMENTS: Slightly Hemolyzed. Interpret Potassium, Alkaline Phosphatase, and AST with caution. Performed By: #### L [id number], LAB17 ####Mass Spec: AIDE RUEDA ([id number])[facility] ([facility])[address] [place] [address] [place] Glucose [Mass/Vol] 107 mg/dL High 70-100 [facility] Comment on above: Performed By: #### L [id number], LAB17 ####Mass Spec: AIDE RUEDA ([id number])[facility] ([facility])[address] [place] [address] Potassium [Moles/Vol] 4.3 mmol/L Normal 3.5-5.1 [facility] Comment on above: Performed By: #### L [id number], LAB17 ####Mass Spec: AIDE RUEDA ([id number])[facility] ([facility])[address] [place] [address] Protein [Mass/Vol] 7.9 g/dL Normal 6.3-8.2 [facility] Comment on above: Performed By: #### L [id number], LAB17 ####Mass Spec: AIDE RUEDA ([id number])[facility] ([facility])[address] [place] [address] Sodium [Moles/Vol] 136 mmol/L Normal 135-145 [facility] Comment on above: Performed By: #### L [id number], LAB17 ####Mass Spec: AIDE RUEDA ([id number])[facility] ([facility])[address] [place] [address] Urea nitrogen [Mass/Vol] 36 mg/dL High 7-17 [facility] Comment on above: Performed By: #### L [id number], LAB17 ####Mass Spec: AIDE RUEDA ([id number])[facility])[address] [place] [address] Comprehensive metabolic 1998 panelon 12-12-2023 Albumin [Mass/Vol] 4.1 g/dL 3.5 - 5.0 g/dL [facility] ALP [Catalytic activity/Vol] 70 U/L 38 - 126 U/L [facility] ALT [Catalytic activity/Vol] 18 U/L 0 - 34 U/L [facility] Anion gap [Moles/Vol] 11 mmol/L 3 - 13 mmol/L [facility] AST [Catalytic activity/Vol] 52 U/L High 15 - 46 U/L [facility] Bilirubin [Mass/Vol] 1.0 mg/dL 0.2 - 1 .3 mg/dL [facility] Calcium [Mass/Vol] 9.3 mg/dL 8.4 - 10. 4 mg/dL [facility] Chloride [Moles/Vol] 103 mmol/L 98 - 10 7 mmol/L [facility] CO2 [Moles/Vol] 22 mmol/L 22 - 30 mmol/L [facility] Creatinine [Mass/Vol] 1.95 mg/dL High 0.52 - 1.04 mg/dL [facility] GFR/1.73 sq M.predicted (S/P/Bld) [Vol rate/Area] 25.1 mL/min Low - PINF [facility] Comment on above: Calculation based on the Chronic Kidney Disease Epidemiology Collaboration (CKD-EPI) equation refit without adjustment for race Glucose [Mass/Vol] 107 mg/dL High 70 - 100 mg/dL [facility] Interpretation and review of laboratory results Abnormal [facility] Potassium [Moles/Vol] 4.3 mmol/L 3.5 - 5.1 mmol/L [facility] Protein [Mass/Vol] 7.9 g/dL 6.3 - 8.2 g/dL [facility] Sodium [Moles/Vol] 136 mmol/L 135 - 145 mmol/L [facility] Urea nitrogen [Mass/Vol] 36 mg/dL High 7 - 17 mg/dL [facility] Slightly Hemolyzed. Interpret Potassium, Alkaline Phosphatase, and AST with caution. [facility] NT PRO BNPon 12-12-2023 Natriuretic peptide B (Bld) [Mass/Vol] 2261 pg/mL High <450 [facility] Comment on above: Performed By: #### L AB106, LAB17 ####Mass Spec: AIDE RUEDA ([id number])[facility] ([address] Natriuretic peptide B [Mass/ Vol]Ordered By: Bob Flores on 12-12-2023 Interpretation and review of laboratory results Abnormal [facility] Natriuretic peptide B (Bld) [Mass/Vol] 2261 pg/mL High NINF - 450 pg/mL [facility] Office Visiton 12-12-2023 Follow-up visit [id number] Brianne Call [address] [facility] Provider Department Center 12/12/2023 [address]09[address]-LEFEOUMÓNICA ADVID [facility] [address] No family history on file Level of Service:03566 [place] OFFICE/OUTPATIENT ESTABLISHED MOD MDM 30 MIN Reason for Visit and Comments: Cardiac Valve Problem [1334] - Patient seen in private OP procedure area for H + P update and education prior to scheduled TAVR [facility] Progress Noteon 12-12-2023 Progress Note Pts symptoms of the reaction have all gone away. Pt states she feels back to normal. [facility] Progress Note [facility] [place] [address] [facility] [address] Dept: [phone] Dept Visit type: Established : 1940 Reason [...] mm Hg. She underwent cardiac cath at [place] which showed non obstructive CAD. He kidney [...] mg IntraVENous Once Mónica David APRN - DROSOPHERE OPERATOR sodium chloride 0.9 % bolus 500 [...] D deficiency Social (more content not included)... [address] 12-08-2023 Approved [id number] 12/24-12/26/23 Calendars and Snapboard updated. [place] [address] Messaged central scheduling through secure chat and CTA TAVR scheduled at [facility] at [address] 12-07-2023 36 Jay Currie RT is out of office until 12/11/23. I spoke w/ [facility] Radiology Dept, I was sent to a finishing and shipping supervisor , I left message re: add on CTA @ [facility] for 12/11. [place] [address] I spoke w/ Katherin in CS, re: [facility] IV hydration, having difficulty with adding pt, she will speak w/ coworker and call me back. I spoke w/ Jennifer RN in POP, they have pt on their schedule. I spoke w/ patient, reviewed NPO 4 hrs prior, all questions answered. I also spoke w/ Rossana in CS, CTA needs moved to [facility]. [address] 12-06-2023 Hydration orders faxed,confirmed and scanned under Media Submitted auth request on [facility] Central. Pending # [id number] On all 3 calendars. [place] [address] I spoke w/ pt and dtr Shama [...] Capo Bear notified to schedule/PA/snap board/calendars. [facility] 36 Patient returned my call. No issues with Right radial cath site, cath performed by Dr. Garces in [place], I called to have images pushed to PACS and fax report w/ recent labs. Labs reviewed from [place], drawn 11/28/23 GFR 31 prior to cath. Teofilo Higgins CNP notified to review and advise if IV hydration is needed. [facility] 36 I spoke w/ Medina in Dr. Garces's office, confirmed [facility] completed, she will push images to PACS and fax report & lab results. I left vm message for dtr Shama to review pt status, discuss next steps BMP/CTA. [facility] 36on 12-05-2023 36 Chart note done. I faxed it and the EKG tracings to [phone]/[facility] [address] Dr. Huffman verbally notified. [facility] 36 Medina from [facility] called requesting last OV note but PB has not finished yet. (11/22/23) [phone] [phone] They need the most recent EKG wave forms as well. [facility] 36on 11-28-2023 36 Spoke w/ Juana @ [facility], cath scheduled for 12/04/23 w/ Dr. Garces. [facility] ECG 12 lead - CLINIC PERFORM EDon 11-25-2023 Atrial fibrillation -Old anteroseptal infarct. -Diffuse nonspecific T-abnormality. ABNORMAL [facility] 36on 11-22-2023 36 Patient seen in Heart valve Clinic yesterday. Dr. Huffman spoke w/ Dr. Garces @ [facility], agreed for R/LHC to be done in [place]. I spoke w/ Maggie RN in Dr. Garces' office, asked her to call me back with cath date. Need to expedite TAVR due to pt symptoms, will need to coordinate CTA, pt does have CKD, last creat was 1.38 done 08/10 scanned in media. [facility] Office Visiton 11-21-2023 Follow-up visit [id number] Brianne Call 1940 F Date Provider Department Center 11/21/2023 16926-GBNTJTHADDEUS STODDARD [facility] [address] No family history on file Level of Service:58967 [place] OFFICE/OUTPATIENT NEW MODERATE MDM 45 MINUTES Reason for Visit and Comments: Shortness of Breath [768224] [facility] Follow-up visit [id number] Brianne Call 1940 F Date Provider Department Center 11/21/2023 [id number]-ONNIRTJUAN REED [facility] [address] No family history on file Level of Service:92075 [place] OFFICE/OUTPATIENT NEW HIGH MDM 60 MINUTES Reason for Visit and Comments: Cardiac Valve Problem [1334] [facility] Follow-up visit [id number] Brianne Call 1940 F Date Provider Department Center 11/21/2023 51176-KLDORTYLCKXSHARJEET HUFFMAN [facility] [address] No family history on file Level of Service:64430 [place] OFFICE/OUTPATIENT NEW HIGH MDM 60 MINUTES Reason for Visit and Comments: Cardiac Valve Problem [1334] [facility] PATINSon 11-21-2023 [facility] DISCHARGE INSTRUCTIONS: Follow-up with [facility] (phone: [phone] fax: [phone]) as needed for memory testing. Please BEGIN [...] age and increased risk of falls. [facility] Progress Noteon 11-21-2023 Progress Note [facility] C[facility] [address] [facility] [address] Dept: [phone] Dept Loc: [phone] Today's Visit Location: TAVR (transcather aortic valve replacement) Clinic [facility] Cardiology [address] [place] [address] Visit type: Senior Health Assessment at TAVR (transcather aortic valve replacement) Clinic Visit Date: 11/21/2023 Reason for Visit: Shortness of Breath Assessment and Plan 1. Nonrheumatic aortic valve stenosis Assessment & Plan: S/p AV replacement by Dr. Nagy in 201209/22/23 Transthoracic Echo (TTE) noted severe aortic stenosis . Mean Gradient of 49. Dr. Garces in [place]. No aortic valve area mentioned. I agree with cardiology plan as discussed with animator Dr. Huffman and CTS Dr. Reed on [...] Patient has already named her Power of Transport Driver for Healthcare and Finances (Both are her daughter Shama López) I recommended patient follow-up with [facility] (phone: [phone] fax: [phone]) as needed for memory testing. 4. Drug-induced [...] Mean Gradient of 49. Dr. Garces in [place]. No aortic valve area mentioned. A fib [...] no=0 points)0 - [facility]. Rajiv (son) lives w pt Reduce [...] pandemic. Revi (more content not included)... [facility] Progress Note HR 58 bpm today but no syncope, presyncope, falls Patient asymptomatic today Patient taking lopressor 12.5mg po bid - I encouraged patient to discuss with her cardiologists/PCP (primary care provider) regarding change of meds given her advanced age and increased risk of falls [facility] Progress Note [facility]: Cardiothoracic Surgery Multidisciplinary Heart Valve Clinic Date: 11/21/23 Patient:Brianne Aguayoalisha 1940 83 y.o. female [id number] Subjective: HPI: Brianne Wells Marin 83 y.o. [...] reactive b (more content not included)... [facility] Progress Note Chronic Patient with occasional word-finding difficulties I suspect either normal memory loss for aging or possibly MCI (Mild Cognitive Impairment) Patient has already named her Power of Transport Driver for Healthcare and Finances (Both are her daughter Shama López) I recommended patient follow-up with [facility] (phone: [phone] fax: [phone]) as needed for memory testing. [facility] Progress Note Chronic; Stable Asymptomatic May be nearing renal (kidney) dysfunction requiring reduced dose of eliquis (given Cr nearly 1.5 in past and patient's age >80 yo). May need eliquis 2.5mg po bid instead of 5mg po bid in future pending renal (kidney) function [facility] Progress Note meds reviewed; appropriate May be [...] missing or doubling up on meds [facility] Progress Note S/p AV replacement by Dr. Nagy in 201209/22/23 Transthoracic Echo (TTE) noted severe aortic stenosis . Mean Gradient of 49. Dr. Garces in [place]. No aortic valve area mentioned. I agree with cardiology plan as discussed with animator Dr. Huffman and CTS Dr. Reed on same date regarding next steps for further workup/treatment of cardiac disease which likely includes heart cath +/- TAVR. On this date of evaluation, the patient has sufficient understanding of procedure(s) to consent to the procedure(s) being discussed and has adequate social support(s). [facility] Progress Note [facility] [address] [facility] [address] Dept: [phone] Dept Visit type: New : 1940 Reason for Visit: Cardiac Valve Problem Assessment and Plan 1. LV dysfunction 2. Stenosis of prosthetic aortic valve, initial encounter - ECG 12 lead - CLINIC PERFORMED This is a very pleasant 83 y.o. 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 she is clearly in need of aortic valve replacement, likely emikz-me-unylz TAVR. Will need a diagnostic cath first, [...] Effort: Pulmonary (more content not included)... [facility] Progress Noteon 11-17-2023 Progress Note Brianne Wells [...] thinner - Eliquis Transthoracic Echocardiogram 09/22/2023 [facility] Office Visiton 01-04-2017 Dietary management education, guidance, and counseling (procedure) yes Invalid Interpretation Code [facility] Work Phone: Documentation of current medications (procedure) Done Invalid Interpretation Code [facility] Work Phone: Tobacco use CPHS Never smoker Invalid Interpretation Code [facility] Work Phone: Office Visit: [facility] 12-30-19 Documentation of current medications (procedure) Done Invalid Interpretation Code [facility] Work Phone: Fall risk assessment No Invalid Interpretation Code [facility] Work Phone: Protein mass conc Done Invalid Interpretation Code [facility] Work Phone: Office Visiton 09-28-2016 Dietary management education, guidance, and counseling (procedure) yes Invalid Interpretation Code [facility] Work Phone: Documentation of current medications (procedure) Done Invalid Interpretation Code [facility] Work Phone: Tobacco smoking status NHIS Never smoker Invalid Interpretation Code [facility] Work Phone: Tobacco use [facility] Never smoker Invalid Interpretation Code [facility] Work Phone: Office Visiton 06-29-2016 Dietary management education, guidance, and counseling (procedure) yes Invalid Interpretation Code [facility] Work Phone: Documentation of current medications (procedure) Done Invalid Interpretation Code [facility] Work Phone: Tobacco use [facility] Never smoker Invalid Interpretation Code [facility] Work Phone: Clinical 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-2015 Left ventricular Ejection fraction 65 % Invalid Interpretation Code [facility] Work Phone: Lab Report: Lipid Profileon 11-12-2015 Cholesterol 194 mg/dL Invalid Interpretation Code 200 [facility] Work Phone: HDL Cholesterol 45 mg/dL Invalid Interpretation Code [facility] Work Phone: LDL Cholesterol 123 mg/dL Invalid Interpretation Code 0-130 [facility] Work Phone: Triglyceride 132 mg/dL Invalid Interpretation Code [facility] Work Phone: very low density lipoproteins 26 mg/dL Invalid Interpretation Code 5-40 [facility] Work Phone: Lab Report: Liver Profileon 11-12-2015 Alanine aminotransferase (ALT) 19 U/L Invalid Interpretation Code 12-78 [facility] Work Phone: Albumin 3.6 g/dL Invalid Interpretation Code 3.4-5.0 [facility] Work Phone: Alkaline phosphatase (ALP) 72 U/L Invalid Interpretation Code 50-136 [facility] Work Phone: ALP enzyme act/vol (Bld) 72 U/L Invalid Interpretation Code 50-136 [facility] Work Phone: Aspartate aminotransferase (AST) 17 U/L Invalid Interpretation Code 15-37 [facility] Work Phone: Bilirubin (direct) 0.17 mg/dL Invalid Interpretation Code 0.00-0.30 [facility] Work Phone: Bilirubin (total) 0.90 mg/dL Invalid Interpretation Code 0.20-1.00 [facility] Work Phone: Globulin 3.7 g/dL High 2.3-3.5 [facility] Work Phone: Protein 7.3 g/dL Invalid Interpretation Code 6.4-8.2 [facility] Work Phone: Vital Signs Date Time Vital Sign Value Performing Clinician [facility] 12-26-2023 11:34-0400 Body temperature 96.49 [degF] Harjeet Huffman MD Work Phone: [facility] 12-26-2023 11:34-0400 Diastolic blood pressure 82 mm[Hg] Harjeet Huffman MD Work Phone: [facility] 12-26-2023 11:34-0400 Heart rate 87 /min Harjeet Huffman MD Work Phone: [facility] 12-26-2023 11:34-0400 Respiratory rate 22 /min Harjeet Huffman MD Work Phone: [facility] 12-26-2023 11:34-0400 SaO2% (BldA) [Mass fraction] 98 % Harjeet Huffman MD Work Phone: [facility] 12-26-2023 11:34-0400 Systolic blood pressure 148 mm[Hg] Harjeet Huffman MD Work Phone: [facility] 12-26-2023 09:27-0400 Body height 157.5 cm Harjeet Huffman MD Work Phone: [facility] [employer] 12-26-2023 09:27-0400 Body mass index (BMI) [Ratio] 45.91 kg/m2 Harjeet Huffman MD Work Phone: [facility] [employer] 12-26-2023 09:27-0400 Body weight 113.85 kg Harjeet Huffman MD Work Phone: [facility] [employer] 12-12-2023 13:57-0400 Diastolic blood pressure 76 mm[Hg] Ach Pop [facility] [employer] 12-12-2023 13:57-0400 Heart rate 73 /min Ach [employer] 12-12-2023 13:57-0400 Respiratory rate 18 /min Ach Pop [facility] [employer] 12-12-2023 13:57-0400 Systolic blood pressure 128 mm[Hg] Ach Pop [employer] 12-12-2023 12:30-0400 Body temperature 96.8 [degF] Arlene Higgins DYE PENETRANT TESTING TECHNICIAN - DROSOPHERE OPERATOR Work Phone: [facility] [employer] 12-12-2023 12:30-0400 Diastolic blood pressure 64 mm[Hg] Arlene Higgins DYE PENETRANT TESTING TECHNICIAN - DROSOPHERE OPERATOR Work Phone: [facility] [employer] 12-12-2023 12:30-0400 Heart rate 50 /min Arlene Higgins DYE PENETRANT TESTING TECHNICIAN - DROSOPHERE OPERATOR Work Phone: [facility] [employer] 12-12-2023 12:30-0400 Respiratory rate 18 /min Arlene Higgins DYE PENETRANT TESTING TECHNICIAN - DROSOPHERE OPERATOR Work Phone: [facility] [employer] 12-12-2023 12:30-0400 Systolic blood pressure 113 mm[Hg] Arlene Higgins DYE PENETRANT TESTING TECHNICIAN - DROSOPHERE OPERATOR Work Phone: [facility] [employer] 12-12-2023 07:34-0400 Body temperature 97 [degF] Ach [employer] [facility] [employer] 11-21-2023 14:17-0400 Body height 157.5 cm Juan Reed DO Work Phone: [employer] 11-21-2023 14:17-0400 Body mass index (BMI) [Ratio] 43.15 kg/m2 Juan Reed DO Work Phone: [employer] 11-21-2023 14:17-0400 Body weight 107 kg Juan Reed DO Work Phone: [facility] [employer] 11-21-2023 14:17-0400 Diastolic blood pressure 82 mm[Hg] Juan Reed DO Work Phone: [facility] [employer] 11-21-2023 14:17-0400 Heart rate 58 /min Juan Reed DO Work Phone: [facility] [employer] 11-21-2023 14:17-0400 SaO2% (BldA) [Mass fraction] 98 % Juan Reed DO Work Phone: [facility] [employer] 11-21-2023 14:17-0400 Systolic blood pressure 136 mm[Hg] Juan Reed DO Work Phone: [facility] [employer] 11-21-2023 14:01-0400 Body height 157.5 cm Harjeet Huffman MD Work Phone: [facility] [employer] 11-21-2023 14:01-0400 Body mass index (BMI) [Ratio] 43.31 kg/m2 Harjeet Huffman MD Work Phone: [facility] [employer] 11-21-2023 14:01-0400 Body weight 107.41 kg Harjeet Huffman MD Work Phone: [facility] [employer] 11-21-2023 14:01-0400 Diastolic blood pressure 82 mm[Hg] Harjeet Huffman MD Work Phone: [facility] [employer] 11-21-2023 14:01-0400 Heart rate 58 /min Harjeet Huffman MD Work Phone: [facility] [employer] 11-21-2023 14:01-0400 SaO2% (BldA) [Mass fraction] 98 % Harjeet Huffman MD Work Phone: [facility] [employer] 11-21-2023 14:01-0400 Systolic blood pressure 136 mm[Hg] Harjeet Huffman MD Work Phone: [facility] [employer] 12-29-2016 10:24-0400 BMI (Body Mass Index) 38.01 kg/m2 Shelly Ahuja [facility] Work Phone: 12-29-2016 10:24-0400 BP [...] 14:01-0500 BMI (Body Mass Index) 37.83 kg/m2 [facility] Work Phone: 05-26-2016 14:01-0500 BP Diastolic 76 mm[Hg] [facility] Work Phone: 05-26-2016 14:01-0500 BP Systolic 144 mm[Hg] [facility] Work Phone: 05-26-2016 14:01-0500 Height 161.29 cm [facility] Work Phone: 05-26-2016 14:01-0500 Pulse (Heart Rate) 76 /min [facility] Work Phone: 05-26-2016 14:01-0500 Respiratory Rate 18 /min [facility] Work Phone: 05-26-2016 14:01-0500 Weight 98.43 kg Paige Singer [facility] Work Phone: 11-10-2015 14:49-0400 BSA (Body Surface Area) 2.03 m2 Paige Singer [facility] Work Phone: Encounters Encounter Date Encounter Type Care Provider Facility Start: 12-25-2023 End: 12-26-2023 Evaluation and management of [facility] [employer] Comment on above: Severe aortic stenos is (Primary Dx); Nonrheumatic aortic valve stenosis Start: 12-22-2023 End: 12-22-2023 ambulatory Arlene Higgins DYE PENETRANT TESTING TECHNICIAN - [employer] Work Phone: [facility] Comment on above: Severe aortic stenos is (Primary Dx) Start: 12-12-2023 End: 12-12-2023 Office outpatient visit 25 minutes Mónica David APRN [employer] Work Phone: [facility] Comment on above: Chronic atrial fibri llation (HCC) (Primary Dx); Nonrheumatic aortic valve stenosis; Adverse effect of contrast media, initial encounter Start: 12-12-2023 End: 12-12-2023 Subsequent hospital visit by physician Arlene Higgins APRN - DROSOPHERE OPERATOR Work Phone: [facility] Comment on above: Nonrheumatic aortic valve stenosis Start: 12-12-2023 End: 12-12-2023 ambulatory Harjeet Huffman MD Work Phone: [facility] POP Comment on above: Renal failure, unspe cified chronicity; Stenosis of prosthetic aortic valve, initial encounter Start: 11-21-2023 End: 11-21-2023 Office outpatient new 45 minutes Thaddeus Stoddard MD Work Phone: [facility] Comment on above: Nonrheumatic aortic valve stenosis (Primary Dx); Chronic atrial fibrillation (HCC); Short-term memory loss; Drug-induced bradycardia; Polypharmacy Start: 11-21-2023 End: 11-21-2023 Office outpatient new 60 minutes Juan Reed DO Work Phone: [facility] Comment on above: Stenosis of prosthet ic aortic valve, initial encounter (Primary Dx) LV dysfunction (Prim logan Dx); Stenosis of prosthetic aortic valve, initial encounter Start: 11-21-2023 End: 11-21-2023 ambulatory [employer] [facility] [facility] Procedures Date Procedure Procedure Detail Performing Clinician Start: 12-26-2023 TTE w or wo fol wcon,Doppler Mónica David DYE PENETRANT TESTING TECHNICIAN - DROSOPHERE OPERATOR Work Phone: Start: 12-26-2023 Ecg routine ecg w/le ast 12 lds trcg only w/o i&r Mónica Davdi DYE PENETRANT TESTING TECHNICIAN - DROSOPHERE OPERATOR Work Phone: Start: 12-26-2023 Basic metabolic pane l calcium total Mónica David DYE PENETRANT TESTING TECHNICIAN - DROSOPHERE OPERATOR Work Phone: Start: 12-25-2023 Echo transthorc r-t 2d w/wo m-mode rec f-up/lmtd Harjeet Huffman MD Work Phone: Start: 12-25-2023 Basic metabolic pane l calcium total Mónica David DYE PENETRANT TESTING TECHNICIAN - DROSOPHERE OPERATOR Work Phone: Start: 12-25-2023 Ecg routine ecg w/le ast 12 lds trcg only w/o i&r Mónica David DYE PENETRANT TESTING TECHNICIAN - DROSOPHERE OPERATOR Work Phone: Start: 12-25-2023 OXYGEN THERAPY Mónica David DYE PENETRANT TESTING TECHNICIAN - DROSOPHERE OPERATOR Work Phone: Start: 12-25-2023 Cardiac catheterizat ion study Harjeet Huffman MD Work Phone: Start: 12-25-2023 Antibody screen [facility] Comment on above: Performed By: #### L [id number] ####Mass Spec: AIDE RUEDA ([id number])[facility] ([facility])[address] [place] [address] Start: 12-25-2023 End: 12-25-2023 Blood typing serologic rh (d) Tien Cornell MD Work Phone: Start: 12-25-2023 End: 12-25-2023 TRANSCATHETER AORTIC VALVE REPLACEMENT (TAVR) - OR Tien Cornell MD Work Phone: Start: 12-12-2023 Antibody screen [facility] Comment on above: Performed By: #### L [id number] ####Mass Spec: AIDE RUEDA ([id number])[facility] BLOOD [facility] ([facility])[address] [place] [address] Start: 12-12-2023 Blood typing serologic abo Harjeet [...] months Gerald Barragan MD Work Phone: Start: 04-07-2016 End: [...] DTaP/Tdap/Td Vaccines (2 - Td or Tdap) [facility] Start: 01-04-2024 End: 01-04-2024 Patient encounter procedure 01/04/2024 12:00 PM EDT Office Visit [facility] [address] [place] [phone] Mónica David, DYE PENETRANT TESTING TECHNICIAN - DROSOPHERE OPERATOR [address] [place] [address] [facility] Start: 12-25-2023 End: 12-25-2023 Admission to same day surgery center 12/25/2023 9:15 AM EDT - 12/25/2023 11:00 AM EDT Surgery [facility] OR [address] [place] [phone] Harjeet Huffman MD [address] [place] [address] TRANSCATHETER AORTIC VALVE REPLACEMENT, TRANSTHORACIC ECHOCARDIOGRAM [facility] Comment on above: TRANSCATHETER AORTIC VALVE REPLACEMENT, TRANSTHORACIC ECHOCARDIOGRAM Start: 12-25-2023 End: 12-25-2023 Anesthesia consultation 12/25/2023 9:15 AM EDT Anesthesia Event [facility] [address] [place] [address] Carolina Waldron, DYE PENETRANT TESTING TECHNICIAN - DROSOPHERE OPERATOR 1 [facility] [place] [address] [place], [place] [id number] [facility] Start: 12-25-2023 Subsequent hospital visit by physician 12/25/2023 9:15 AM EDT Hospital Encounter [facility] MA[facility] OR [address] [place] [address] Harjeet Huffman MD [address] [place] [address] [address] [place], [place] [id number] Nonrheumatic aortic valve stenosis [facility] Comment on above: Nonrheumatic aortic valve stenosis Start: 12-25-2023 End: 12-25-2023 TRANSCATHETER AORTIC VALVE REPLACEMENT (TAVR) - OR TRANSCATHETER AORTIC VALVE REPLACEMENT (TAVR) - OR Nonrheumatic aortic valve stenosis 12/25/2023 9:15 AM EDT [facility] Start: 11-19-2023 COVID-19 Vaccine ( season) COVID-19 Vaccine ( season) [facility] Start: 11-19-2023 Influenza vaccination Influenza Vaccine (#1) [facility] Start: 03-20-2023 Medicare Advantage Annual Wellness Visit Medicare Advantage Annual Wellness Visit [facility] Start: 11-09-2020 Lipid panel Lipid Panel [facility] Start: 07-10-2017 End: 07-10-2017 Appointment Appointment [facility] Work Phone: Start: 01-05-2017 End: 01-09-2017 Nuclear stress test -Lexiscan Nuclear stress test -Lexiscan [facility] Work Phone: Start: 01-04-2017 End: 01-04-2017 Appointment Appointment [facility] Work Phone: Start: 01-03-2017 End: 01-05-2017 Nuclear stress test -exercise Nuclear stress test -exercise [facility] Work Phone: Start: 12-29-2016 End: 12-29-2016 ERIC REYES [facility] Work Phone: Start: 12-29-2016 End: 12-29-2016 Echocardiography Echocardiogram (complete) [facility] Work Phone: Start: 12-29-2016 End: 12-29-2016 Follow Up Appt 6 months Follow Up Appt 6 months [facility] Work Phone: Start: 12-29-2016 End: 12-29-2016 Nuclear stress test -exercise Nuclear stress test -exercise [facility] Work Phone: Start: 12-29-2016 End: 12-29-2016 Appointment Appointment [facility] Work Phone: Start: 12-15-2016 End: 12-15-2016 Appointment Appointment [facility] Work Phone: Start: 11-11-2016 End: 11-18-2015 *Hepatic Function Panel *Hepatic Function Panel [facility] Work Phone: Start: 11-11-2016 End: 11-18-2015 Lipid panel [AGGREGATE] *Lipid Profile CC PCP [facility] Work Phone: Start: 11-11-2016 End: 11-18-2015 *Hepatic Function Panel *Hepatic Function Panel [facility] Work Phone: Start: 11-11-2016 End: 11-18-2015 Lipid panel [AGGREGATE] *Lipid Profile CC PCP [facility] Work Phone: Start: 09-28-2016 End: 09-28-2016 Appointment Appointment [facility] Work Phone: Start: 05-26-2016 End: 05-26-2016 ERIC REYES [facility] Work Phone: Start: 05-26-2016 End: 05-26-2016 Follow Up Appt 6 months Follow Up Appt 6 months [facility] Work Phone: Start: 05-26-2016 End: 05-26-2016 ERIC REYES [facility] Work Phone: Start: 05-26-2016 End: 05-26-2016 Follow Up Appt 6 months Follow Up Appt 6 months [facility] Work Phone: Start: 11-10-2015 End: 11-12-2015 *Hepatic Function Panel *Hepatic Function Panel [facility] Work Phone: Start: 11-10-2015 End: 05-20-2016 ERIC REYES [facility] Work Phone: Start: 11-10-2015 End: 11-10-2015 Echocardiography Echocardiogram (complete) [facility] Work Phone: Start: 11-10-2015 End: 11-10-2015 Follow Up Appt 6 months Follow Up Appt 6 months [facility] Work Phone: Start: 11-10-2015 End: 11-12-2015 Lipid panel [AGGREGATE] *Lipid Profile CC PCP [facility] Work Phone: Start: 11-10-2015 End: 11-12-2015 *Hepatic Function Panel *Hepatic Function Panel [facility] Work Phone: Start: 11-10-2015 End: 05-20-2016 ERIC REYES [facility] Work Phone: Start: 11-10-2015 End: 11-10-2015 Echocardiography Echocardiogram (complete) [facility] Work Phone: Start: 11-10-2015 End: 11-10-2015 Follow Up Appt 6 months Follow Up Appt 6 months [facility] Work Phone: Start: 11-10-2015 End: 11-12-2015 Lipid panel [AGGREGATE] *Lipid Profile CC PCP [facility] Work Phone: Start: 1952 Depression Screening Depression Screening [facility] Start: 1940 Lipid panel Lipid Panel [facility] Start: 1940 Screening for osteoporosis Bone Density Scan [facility] End: 12-12-2023 CT Chest WO and CT angiogram Coronary arteries W contrast IV [facility] Work Phone: Comment on above: Once for 1 Occurrences starting 12/12/19 until 12/12/2023 Patient Education [facility] Work Phone: Immunizations Immunization Date Immunization Notes Care Provider Fa cili 01-05-2023 influenza virus vacc ine, unspecified formulation Thaddeus Stoddard MD Work Phone: [facility] Payers Date Payer Category Payer Medicare [employer]URE [id number] 2023-Present [address] [place] [address] Medicare HMO [id number] 2023 Medicare [id number] Social History Date Type Detail Facility Start: 2023 Tobacco smoking status NHIS Never sm oked tobacco [facility] Start: 2023 Tobacco use and exposure Smokeless t obacco non-user [facility] Start: 11-21-2023 End: 12-26-2023 Alcoholic beverage intake Lifetime non-drinker (finding) [facility] Start: 11-21-2023 End: 12-25-2023 History of Social function [facility] Start: 11-21-2023 End: 12-25-2023 Tobacco use panel [facility] Start: 1940 Sex assigned at Not on file S [facility] Medical Equipment Procedure Code Equipment Code Equipment Origin al Text Equipment Identifier Dates Valve Aor Soumya 3 Ultra 23mm - [id number] - [id number] Start: 12-25-2023 Comment on above: Description: [id number] Device Perclose Prostyle - [id number] Start: 12-25-2023 Device Perclose Prostyle - [id number] Start: 12-25-2023 Clinical Notes 11-16-2023 to [...] activity restrictions. Discharged to home with daughter. [facility] 12-26-2023 Nurse Note Discharge instructions given to patient and daughter. Patient verbalizes understanding of medication changes and follow up appointments, and activity restrictions. Discharged to home with daughter. documented in this encounter [facility] 12-26-2023 Consult note Associated Order (s): IP CONSULT TO CARDIAC REHAB Received referral and reviewed chart. Phase II Cardiopulmonary Rehab Referral discussed with Brianne Call. Patient prefers cardiopulmonary rehab at [facility]. Given information on program at preferred location. [facility] 12-26-2023 Note Received referral an d reviewed chart. Phase II Cardiopulmonary Rehab Referral discussed with Brianne Call. [facility] Given information on program at preferred location. [facility] 12-26-2023 Consult note Associated Order (s): IP CONSULT TO CARDIAC REHAB Received referral and reviewed chart. Phase II Cardiopulmonary Rehab Referral discussed with Brianne Call. Patient prefers cardiopulmonary rehab at [facility]. Given information on program at preferred location. documented in this encounter [facility] 12-26-2023 Note Atrial fibrillation Poor R wave progression, CONSIDER ANTERIOR INFARCT ST and T abnormality Electronically Signed On 12-26-2023 09:21:43 EDT by Austin Carmona [facility] 12-26-2023 Note Atrial fibrillation Poor R wave progression, CONSIDER ANTERIOR INFARCT ST and T abnormality Electronically Signed On 12-26-2023 09:21:43 EDT by Austin Carmona [facility] 12-26-2023 Note IMPRESSION: Atrial fibrillation Poor R wave progression, CONSIDER ANTERIOR INFARCT ST and T abnormality Electronically Signed On 12-26-2023 09:21:43 EDT by Austin Carmona [facility] 12-25-2023 Hospital Discharg e wero David APRN - DROSOPHERE OPERATOR - 12/25/2023 12:24 PM EDT - Please call the Heart [facility]ve Clinic with any questions: [phone] -You will have have the following follow [...] unless otherwise specified. documented in this encounter [facility] 12-25-2023 Note Patient: Brianne reynolds Procedure Summary Date: 12/25/23 Room / Location: [facility] OR [facility] Operating Room Anesthesia Start: 945 Anesthesia Stop: [...] once all PACU criteria has been met. [facility] 12-25-2023 Note Patient: Brianne reynolds Procedure Summary Date: 12/25/23 Room / Location: [facility] Operating Room Anesthesia Start: 945 Anesthesia Stop: [...] opportunity for questions and acknowledgement of understanding. [facility] 12-25-2023 Note Arterial Line: Date/Time: 12/25/2023 10:22 AM An arterial line was placed Procedure performed using ultrasound guidance - Image permanently retained with wire or catheter in vein.in the Procedural for the following indication(s): continuous blood pressure monitoring and blood sampling needed. A (size) (length) (type) catheter was placed, into the Right secured by tape. Staffing Performed: Other Other staff: Harjeet Huffman MD [facility] 12-25-2023 Note Formatting of this n ote [...] The valve was passed through the 14 Haitian sapient E sheath into the descending thoracic [...] patient was decannulated transferred stable to recovery. [facility] Phone: 12-25-2023 Note Formatting of this n [...] The valve was passed through the 14 Haitian sapient E sheath into the descending thoracic [...] patient was decannulated transferred stable to recovery. [facility] Phone: 12-25-2023 Miscellaneous Notes Date of surgery [...] The valve was passed through the 14 Haitian sapient E sheath into the descending thoracic [...] stable to recovery. documented in this encounter [facility] 12-25-2023 Attending History and physical note H&P reviewed. The patient was examined and there are no changes to the H&P. Source Note - Arlene Higgins APRN - DROSOPHERE OPERATOR - 12/22/2023 12:39 PM EDT Images from the original note were not included. H+ P copied to chart from (office provider's name Mónica David APRN) progress note dated 12/12/23 on behalf of (procedural physician's name Dr. Huffman). Expand All Collapse All [facility] [place] [address] [facility] [address] Dept: [phone] Dept Visit type: Established : 1940 Reason [...] mm Hg. She underwent cardiac cath at [facility] which showed non obstructive CAD. He kidney [...] 100 mg 100 mg IntraVENous Once Mónica Daivd APRN - DROSOPHERE OPERATOR sodium chloride 0.9 % bolus 500 [...] Independent interpretation of tests: JEREMIE Ruiz CNP [facility] Work Phone: 12-25-2023 History and physical [...] name Dr. Huffman). Expand All Collapse All [facility] - [address] [address] Dept: [phone] Dept Visit type: Established : 1940 Reason [...] mm Hg. She underwent cardiac cath at [place] which showed non obstructive CAD. He kidney [...] mg IntraVENous Once Mónica David APRN - DROSOPHERE OPERATOR sodium chloride 0.9 % bolus 500 [...] interpretation of tests: Mónica David APRN - DROSOPHERE OPERATOR documented in this encounter [facility] 12-25-2023 Note H&P reviewed. The pa tient was examined and there are no changes to the H&P. [facility] 12-22-2023 History and physical note Images from the original note were not included. H+ P copied to chart from (office provider's name Mónica David APRN) progress note dated 12/12/23 on behalf of (procedural physician's name Dr. Huffman). Expand All Collapse All [facility] [place] [address] [facility] [address] Dept: [phone] Dept Visit type: Established : 1940 Reason [...] mm Hg. She underwent cardiac cath at [place] which showed non obstructive CAD. He kidney [...] mg IntraVENous Once Mónica David APRN - DROSOPHERE OPERATOR sodium chloride 0.9 % bolus 500 [...] interpretation of tests: Mónica David APRN - DROSOPHERE OPERATOR Associated attestation - Harjeet Huffman MD - [...] We will proceed with the planned procedure. [facility] 12-22-2023 History and physical note Images from the original note were not included. H+ P copied to chart from (office provider's name Mónica David APRN) progress note dated 12/12/23 on behalf of (procedural physician's name Dr. Huffman). Expand All Collapse All [facility] [place] [facility] [place] [address] [place] [address] Dept: [phone] Dept Visit type: Established : 1940 Reason [...] mm Hg. She underwent cardiac cath at [place] which showed non obstructive CAD. He kidney [...] mg IntraVENous Once Mónica David APRN - DROSOPHERE OPERATOR sodium chloride 0.9 % bolus 500 [...] interpretation of tests: Mónica David, JEREMIE - DROSOPHERE OPERATOR Associated attestation - Harjeet Huffman MD - [...] the planned procedure. documented in this encounter [facility] 12-22-2023 Note Attestation signed by Harjeet [...] name Dr. Huffman). Expand All Collapse All [facility] [place] [facility] [place] [address] [facility] [address] Dept: [phone] Dept Visit type: Established : 1940 Reason [...] mm Hg. She underwent cardiac cath at [place] which showed non obstructive CAD. He kidney [...] spironolactone (Aldactone) 25 (more content not included)... [facility] 12-22-2023 Note Attestation signed by Harjeet [...] name Dr. Huffman). Expand All Collapse All [facility] [place] [address] [facility] [address] Dept: [phone] Dept Visit type: Established : 1940 Reason [...] mm Hg. She underwent cardiac cath at [place] which showed non obstructive CAD. He kidney [...] spironolactone (Aldactone) 25 (more content not included)... [facility] 12-21-2023 Note Pre TAVR phone call placed. Reviewed, procedure, instructions and meds. Confirmed Eliquis, and Dye Allergy Prep med instructions. Pt verbalizes understanding. Pt knows to call [phone] with any concerns. Teofilo Higgins CNP notified for prep for procedure orders. Diagnosis: Procedure being done: TF TAVR Date/time of procedure: 12/25/2023 @ 9:15 am Surgeon: Dr. Huffman 2nd surgeon: Dr. Olsen Admission type: To be admitted Anesthesia: MAC Completed: H&P/BNP/CBC/CMP/CXR/EKG Date completed: [facility] 12/19/23, 12/12/23 Additional orders Dye Allergy Prep meds [facility] 12-15-2023 Note Patient: Brianne reynolds Procedure Information Date/Time: 12/25/23 0915 Procedures: TRANSCATHETER AORTIC VALVE REPLACEMENT, TRANSTHORACIC ECHOCARDIOGRAM TRANSCATHETER AORTIC VALVE REPLACEMENT, TRANSTHORACIC ECHOCARDIOGRAM (Chest) Location: [facility] OR [facility] Operating Room Surgeons: Harjeet Huffman MD; Juan [...] Records in media Carolina Waldron APRN - DROSOPHERE OPERATOR JOB Screening Labs: Lab Results Component [...] 71 mmHg Equipment Requests: Additional Equipment Requests [facility] 12-12-2023 History of Presen t illness Narrative Pts symptoms of the reaction have all gone away. Pt states she feels back to normal. Pt came back from CT and pts face is red and she states she is starting to progressively get itchy. Mónica David FRAME AND SCRAP CRUSHER is here at this time and order medications. documented in this encounter [facility] 12-12-2023 History of Presen t illness Narrative Images from the original note were not included. [facility] - [address] [address] Dept: [phone] Dept Visit type: Established : 1940 Reason [...] mm Hg. She underwent cardiac cath at [place] which showed non obstructive CAD. He kidney [...] mg IntraVENous Once Mónica David APRN - DROSOPHERE OPERATOR sodium chloride 0.9 % bolus 500 [...] JEREMIE Ruiz CNP documented in this encounter [facility] 12-12-2023 Note Pt came back from CT and pts face is red and she states she is starting to progressively get itchy. Mónica David FRAME AND SCRAP CRUSHER is here at this time and order medications. [facility] 12-06-2023 Note Message reviewed. Re commend CTA with IV hydration. Can get pre procedure labs at time of CTA. [facility] 11-21-2023 History of Presen t illness Narrative Images from the original note were not included. [facility] [address] [facility] [address] Dept: [phone] Dept Loc: [phone] Today's Visit Location: TAVR (transcather aortic valve replacement) Clinic [facility] Cardiology [address] [place] [address] Visit type: Senior Health Assessment at TAVR [...] agree with cardiology plan as discussed with animator Dr. Huffman and CTS Dr. Reed on [...] Patient has already named her Power of Transport Driver for Healthcare and Finances (Both are her daughter Shama López) I recommended patient follow-up with [facility] (phone: [phone] fax: [phone]) as needed for memory testing. 4. Drug-induced [...] Mean Gradient of 49. Dr. Garces in [place]. No aortic valve area mentioned. A fib [...] no=0 points)0 - patient rents room from [facility]. Rajiv (son) lives w pt Reduce mobility [...] [] Daughter Shama López (financial Power of Transport Driver) is on bank acct but patient manages [...] phrases are mis-transcribed.) documented in this encounter [facility] 11-21-2023 Instructions Thaddeus Stoddard MD - 11/21/2023 3:30 PM EDT GERIATRICS DISCHARGE INSTRUCTIONS: Follow-up with [facility] (phone: [phone] fax: [phone]) as needed for memory testing. Please BEGIN [...] risk of falls. documented in this encounter [facility] 11-21-2023 Evaluation + Plan note Associated Problem(s): Drug-induced bradycardia HR 58 bpm today but no syncope, presyncope, falls Patient asymptomatic today Patient taking lopressor 12.5mg po bid - I encouraged patient to discuss with her cardiologists/PCP (primary care provider) regarding change of meds given her advanced age and increased risk of falls [facility] 11-21-2023 Miscellaneous Notes Associated Problem(s): Drug-induced [...] Patient has already named her Power of Transport Driver for Healthcare and Finances (Both are her daughter Shama López) I recommended patient follow-up with [facility] (phone: [phone] fax: [phone]) as needed for memory testing. Associated Problem(s): [...] agree with cardiology plan as discussed with animator Dr. Huffman and CTS Dr. Reed on same date regarding next steps for further workup/treatment of cardiac disease which likely includes heart cath +/- TAVR. On this date of evaluation, the patient has sufficient understanding of procedure(s) to consent to the procedure(s) being discussed and has adequate social support(s). documented in this encounter [facility] 11-21-2023 History of Presen t illness Narrative Images from the original note were not included. [facility]: Cardiothoracic Surgery Multidisciplinary Heart Valve Clinic Date: 11/21/23 Patient:Brianne Call 1940 83 y.o. female [id number] Subjective: HPI: Brianne Call 83 y.o. referred [...] the near future. Given her proximity to [facility], she would prefer LHC performed there. [...] other diagnostic images. documented in this encounter [facility] 11-21-2023 Evaluation + Plan note Associated Problem(s): Short-term memory loss Chronic Patient with occasional word-finding difficulties I suspect either normal memory loss for aging or possibly MCI (Mild Cognitive Impairment) Patient has already named her Power of Transport Driver for Healthcare and Finances (Both are her daughter Shama López) I recommended patient follow-up with [facility] (phone: [phone] fax: [phone]) as needed for memory testing. [facility] 11-21-2023 Evaluation + Plan note Associated Problem(s): Chronic atrial fibrillation (HCC) Chronic; Stable Asymptomatic May be nearing renal (kidney) dysfunction requiring reduced dose of eliquis (given Cr nearly 1.5 in past and patient's age >80 yo). May need eliquis 2.5mg po bid instead of 5mg po bid in future pending renal (kidney) function T [facility] 11-21-2023 Evaluation + Plan note Associated [...] missing or doubling up on meds T [facility] 11-21-2023 Evaluation + Plan note Associated Problem(s): Nonrheumatic aortic valve stenosis S/p AV replacement by Dr. Nagy in 201209/22/23 Transthoracic Echo (TTE) noted severe aortic stenosis . Mean Gradient of 49. Dr. Garces in [place]. No aortic valve area mentioned. I agree with cardiology plan as discussed with animator Dr. Huffman and CTS Dr. Reed on same date regarding next steps for further workup/treatment of cardiac disease which likely includes heart cath +/- TAVR. On this date of evaluation, the patient has sufficient understanding of procedure(s) to consent to the procedure(s) being discussed and has adequate social support(s). [facility] 11-21-2023 History of Presen t illness Narrative Images from the original note were not included. [facility] C[facility] [address] [place] [address] Dept: [phone] Dept Visit type: New : 1940 Reason for Visit: Cardiac Valve Problem Assessment and Plan 1. LV dysfunction 2. Stenosis of prosthetic aortic valve, initial encounter - ECG 12 lead - CLINIC PERFORMED This is a very pleasant 83 y.o. 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 she is clearly in need of aortic valve replacement, likely [id number] TAVR. Will need a diagnostic cath first, [...] Harjeet Huffman MD documented in this encounter [facility] 11-16-2023 Note Received fax referra l to [facility] from Dr. Garces @ [facility]. I spoke w/ Juana, echo images to be pushed to PACS, she will fax lab work. I spoke w/ pt, appt scheduled. Chart made. [facility] Evaluation note Diagnosis Nonrheumatic aortic valve stenosis- Primary Chronic atrial fibrillation (HCC) Atrial fibrillation Short-term memory loss Memory loss Drug-induced bradycardia Polypharmacy Issue of repeat prescriptions [facility]* Diagnosis Stenosis of prosthetic aortic valve, initial encounter- Primary documented in this encounter [facility] note* Diagnosis LV dysfunction- Primary Left heart failure Stenosis of prosthetic aortic valve, initial encounter [facility] Diagnosis Nonrheumatic aortic valve stenosis- Primary Chronic atrial fibrillation (HCC)- Primary Atrial fibrillation Nonrheumatic aortic valve stenosis Adverse effect of contrast media, initial encounter Nonrheumatic aortic valve stenosis [facility] Diagnosis Nonrheumatic aortic valve stenosis- Primary Renal failure, unspecified chronicity Stenosis of prosthetic aortic valve, initial encounter Nonrheumatic aortic valve stenosis [facility] Diagnosis Nonrheumatic aortic valve stenosis- Primary Nonrheumatic aortic valve stenosis Nonrheumatic aortic valve stenosis [facility] Diagnosis Nonrheumatic aortic valve stenosis- Primary Severe aortic stenosis- Primary Aortic valve disorders Nonrheumatic aortic valve stenosis [facility] Diagnosis Severe aortic stenosis- Primary Aortic valve disorders [facility] Diagnosis Nonrheumatic aortic valve stenosis- Primary Severe aortic stenosis Aortic valve disorders Severe aortic stenosis Aortic valve disorders Nonrheumatic aortic valve stenosis [facility] Reason for Referral Specialty Diagnoses / Procedures Referred By Roseline ervin Referred To Contact Radiology Diagnoses Nonrheumatic aortic valve stenosis Procedures CTA Angiogram TAVR Arlene Higgins APRN - DROSOPHERE OPERATOR [address] [place] [address] Referral ID Status Reason Start Date Expiration Date Visits Re quested Visits Authorized [id number] Closed 12/07/2023 02/05/2024 1 1 Summary Purpose [...] REQUEST INFUSION TREATMENT Harjeet Huffman MD [address] [address] [address] [place] [address] Referral ID Status Reason Start Date Expiration Date Visits Re quested Visits Authorized [id number] Closed 12/12/2023 12/06/2024 1 1 Specialty Diagnoses / Procedures Referred By Contac t Referred To Contact Radiology Diagnoses Nonrheumatic aortic valve stenosis Procedures CTA Angiogram TAVR Arlene Higgins, JEREMIE - SIM [address] [place] [address] Referral ID Status Reason Start Date Expiration Date Visits Re quested Visits Authorized [id number] Closed 12/07/2023 02/05/2024 1 1 Specialty Diagnoses / Procedures Referred By Contac t Referred To Contact Diagnoses Nonrheumatic aortic valve stenosis Procedures TRANSCATHETER AORTIC VALVE REPLACEMENT, TRANSTHORACIC ECHOCARDIOGRAM TRANSCATHETER AORTIC VALVE REPLACEMENT, TRANSTHORACIC ECHOCARDIOGRAM Harjeet Huffman MD [address] [address] [address] [place] [address] Referral ID Status Reason Start Date Expiration Date Visits Re quested Visits Authorized [id number] 1 1 Care Teams (unrecognized sec tion and content) [employer] Mechanic Relationship Specialty Start Date End Date Alvarado Gallagher MD [address] [place] [address] PCP - General Geriatric Medicine 11/21/23 [employer] Mechanic Relationship Specialty Start Date End Date Alvarado Gallagher MD [address] [place], [place] [id number] PCP - General Geriatric Medicine 11/21/23 [employer] Mechanic Relationship Specialty Start Date End Date Alvarado Gallagher MD [address] [place], [place] [id number] PCP - General Geriatric Medicine 11/21/23 [employer] Power[employer] Mechanic Relationship Specialty Start Date End Date Alvarado Gallagher MD [address] [place] [address] PCP - General Geriatric Medicine 11/21/23 [employer] Mechanic Relationship Specialty Start Date End Date Alvarado Gallagher MD [address] [place] [address] PCP - General Geriatric Medicine 11/21/23 [employer] Power[employer] Mechanic Relationship Specialty Start Date End Date Alvarado Gallagher MD [address] [place] [address] PCP - General Geriatric Medicine 11/21/23 [employer] Power[employer] Mechanic Relationship Specialty Start Date End Date Alvarado Gallagher MD [address] [place] [address] PCP - General Geriatric Medicine 11/21/23 [employer] Power[employer] Mechanic Relationship Specialty Start Date End Date Alvarado Gallagher MD [address] [place] [address] PCP - General Geriatric Medicine 11/21/23 INFORMATION SOURCE (unrecogn ized section and content) DATE CREATED AUTHOR 12/27/2023 [employer] [facility] Scheduled Active and Recently [...] (Given - Provider: Edgar Warner APRN - MANAGER PEST) dapagliflozin (Farxiga) tablet 10 mg 10 mg, [...] 1046, Intraprocedure 1046 (Given - Provider: Harjeet Hufmfan MD) perflutren protein A microsphere (Optison) 3 [...] BE BASED ON THE PRIMARY CLINICAL RECORDS. [facility]. provides no warranty or guarantee of the accuracy or completeness of information in this document.
[2024-01-05 22:17] LABS: Magnesium 2.4 mg/dL (1.6-2.6)
[2024-01-05 22:19] LABS: BNP,B-Type NATRIURETIC PEPTIDE 161.7 pg/mL (0-100)
--- NOTE | 2024-01-05 22:39 | MRI_ITS ---
ACR Level 3 findings have been noted. An addendum which confirms receipt of the report will follow. HISTORY: TIA/CVA. TECHNIQUE: Multiplanar and multisequence MR images of the brain were obtained without contrast. 282 images. COMPARISON: CT prior day. FINDINGS: BRAIN PARENCHYMA: Multiple zones and foci of restricted diffusion in the left frontal lobe, left parietal lobe, left blunt radiata, and left basal ganglia with mild associated cytotoxic edema. Mild foci of restricted diffusion in the left temporal cortex and posterior cerebellum. Mild chronic small vessel seen gliosis. No acute intracranial hemorrhage identified. CSF SPACES: Mild volume loss with an empty sella configuration. No significant midline shift or other mass effect.No extra-axial fluid collection. VASCULAR SYSTEM: Loss of the left internal carotid artery flow void with reconstitution in the distal cavernous portion, corresponding to the CTA findings. PARANASAL SINUSES AND MASTOID AIR CELLS: Trace fluid in the right mastoid air cells. ORBITS: Symmetric contents. MRI/Brain without Contrast IMPRESSION: Multiple small acute left frontal, parietal, temporal, and cerebellar infarcts. 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 Electronically Signed: Gwen Nair MD at 13:38 EDT ,
--- NOTE | 2024-01-05 22:39 | ECHOCS_ITS ---
Reason For Study: CHF, Recent TAVR Procedure This was a 2D Doppler, Color Flow transthoracic echocardiogram. The study was technically difficult. Contrast injection was performed. Exam performed portable in patient room. Left Ventricle Mildly dilated left ventricular cavity. Dyssynchronous LV wall motion. Estimated LVEF 30 to 35%. Right Ventricle Normal right ventricle. Atria The left atrium is severely enlarged. Normal right atrium. Mitral Valve Mild (1+) mitral valve insufficiency. Tricuspid Valve Trivial tricuspid valve insufficiency. Unable to estimate RV systolic pressure due to insufficient tricuspid regurgitant envelope. Aortic Valve Bioprosthetic aortic valve mean peak gradient 26.9 mmHg. Pulmonic Valve The pulmonic valve is not well visualized. Great Vessels Normal sized aortic root. Pericardium/Pleural No pericardial effusion. Medication Diluted definity 3.5ml given slow IV push to enhance endocardial definition. Performed a rapid injection of agitated mix of 9 cc saline and 1cc air to assess for atrial septal defect. MMode/2D Measurements & Calculations LVIDd: 5.7 cm IVSd: 1.1 cm LVOT diam: 2.0 cm LVIDs: 4.7 cm LVPWd: 1.0 cm FS: 16.7 % LVOT area: 3.0 cm2 Ao root diam: 3.4 cm asc Aorta Diam: 3.4 cm LAV(MOD-sp4): 124.9 ml LA dimension: 4.5 cm LVAd ap4: 29.2 cm2 SV(MOD-sp4): 39.7 ml SV(sp4-el): 41.3 ml LVLd ap4: 6.8 cm EDV(MOD-sp4): 100.8 ml EDV(sp4-el): 106.7 ml LVAs ap4: 21.6 cm2 LVLs ap4: 6.0 cm ESV(MOD-sp4): 61.2 ml ESV(sp4-el): 65.4 ml EF(MOD-sp4): 39.3 % EF(sp4-el): 38.7 % LA A4 area: 34.5 cm2 RA A4 area: 19.9 cm2 TAPSE: 1.4 cm Doppler Measurements & Calculations MV E max sujey: 82.5 cm/sec MV V2 max: 90.5 cm/sec Ao V2 max: 342.0 cm/sec MV max P.3 mmHg Ao max P.4 mmHg MV V2 mean: 42.9 cm/sec Ao V2 mean: 240.6 cm/sec MV mean P.00 mmHg Ao mean P.9 mmHg MV V2 VTI: 33.6 cm Ao V2 VTI: 68.7 cm AV (velocity ratio): 0.27 MVA(VTI): 1.6 cm2 RAMÓN(I,D): 0.80 cm2 RAMÓN(V,D): 0.87 cm2 LV V1 max: 99.3 cm/sec SV(LVOT): 55.3 ml PA V2 max: 98.9 cm/sec LV V1 max P.1 mmHg PA max PG (full): 2.2 mmHg LV V1 mean P.4 mmHg LV V1 mean: 69.8 cm/sec LV V1 VTI: 18.4 cm TR max sujey: 203.7 cm/sec TR max P.6 mmHg ECHO/Echo Complete W/ Contrast Interpretation Summary The study was technically difficult. Mildly dilated left ventricular cavity. Dyssynchronous LV wall motion. Estimate d LVEF 30 to 35%. The left atrium is severely enlarged. Bioprosthetic aortic valve mean peak gradient 26.9 mmHg. Ordering Physician: Maribel Vizcarra Performed By: Fernando Carrasquillo and Student
[2024-01-05 22:43] LABS: Procalcitonin 0.08 ng/mL (0.00-0.09)
[2024-01-06] VITALS (9 sets, daily range): BP systolic 131–165; BP diastolic 68–114; PULSE 45–86; RESP 16; TEMP 35.4–36.9; O2SAT 94–99; BMI 43.5
[2024-01-06 00:37] LABS: Allen Test Positive; Base Excess -1 mmol/L (-2 to +2); Bicarbonate 22.4 mmol/L (22-26); Blood Gas Specimen Type ART; Mode Not entered; O2 Delivery Device Room Air; PO2 85 mmHG (75-100); SITE R Radial; SO2 98 % (95-99); Total Carbon Dioxide 23 mmol/L; pCO2 28.1 mmHg (35-45); pH 7.51 (7.35-7.45)
[2024-01-06 00:57] LABS: Ammonia < 10.0 umol/L (11-32)
[2024-01-06 07:22] LABS: Absolute Lymphocyte Count 0.62 X10^3/uL (0.83-4.51); Absolute Neutrophil Count 7.5 X10^3/uL (2.0-7.7); Basophil# 0.02 X10^3/uL; Basophil% 0.2 % (0-1); Hematocrit 44.3 % (37-47); Hemoglobin 14.6 g/dL (12.0-15.0); Lymphocyte # 0.62 X10^3/ul (0.83-4.51); Lymphocyte % 7.4 % (19-41); Mean Corpuscular Hgb 32.1 pg (27.0-32.0); Mean Corpuscular Volume 97.4 fL (81-99); Mean Platelet Vol. 12.4 fl (6.2-12.0); Monocyte# 0.21 X10^3/uL; Monocyte% 2.5 % (0-10); NRBC Flagged by Analyzer 0 % (0-5); Platelet Count 188 K/mm3 (150-450); RBC Distribution Width CV 13.4 % (11.6-14.6); RBC Distribution Width SD 48.2 fl (35.1-43.9); Red Blood Count 4.55 M/mm3 (4.2-5.4); White Blood Count 8.4 K/mm3 (4.4-11.0)
[2024-01-06 08:00] LABS: ALB/GLOB Ratio 0.9 RATIO (0.9-2.4); AST(SGOT) 19 U/L (15-37); Alanine Aminotransfer ALT/SGPT 17 U/L (13-56); Albumin, Serum 3.3 g/dL (3.2-5.0); Alkaline Phosphatase 55 U/L (45-117); Anion Gap 7 (5-15); BUN 33 mg/dL (7-18); BUN/Creat Ratio 22.9 RATIO (10-20); Calcium,Total 9.6 mg/dL (8.5-10.1); Chloride 108 mmol/L (98-107); Cholesterol 201 mg/dL (200); Creatinine, Serum 1.44 mg/dL (0.55-1.02); EST Glomerular Filtration Rate 37 mL/min (>60); Est Glom Filt Rate - Afr Amer 45 mL/min (>60); Estimated Creatinine Clearance 34.35 ml/min; Globulin 3.6 g/dL (2.2-4.2); Glucose 138 mg/dL (74-106); High Density Lipoprotein 41 mg/dL; Potassium 4.6 mmol/L (3.5-5.1); Protein, Total 6.9 g/dL (6.4-8.2); Sodium Level 139 mmol/L (136-145); Triglycerides 99 mg/dL; Very Low Density Lipoprotein 20 mg/dL (5-40)
[2024-01-06 09:36] LABS: Hemoglobin A1c 5.8 % (3.8-5.6)
--- NOTE | 2024-01-06 10:53 | PN.HOSP_ITS ---
Subjective Subjective She seems confused today. She does arouse to answer questions but has difficulty staying awake Objective Data Objective Data Vital Signs: Vital Signs Temp Pulse Resp BP Pulse Ox O2 Del Method 97.6 F L 49 L 16 140/68 H 98 Room Air 01/06/24 08:10 01/06/24 08:26 01/06/24 08:10 01/06/24 08:26 01/06/24 08:10 01/06/24 08:20 Oxygen Delivery Method Room Air Weight: 236 lb 12.423 oz Body Mass Index (BMI) 43.5 Intake & Output: Intake and Output for Last 24 Hours 01/05/24 01/06/24 01/07/24 03:59 03:59 03:59 Intake Total 0 / 0 0 / 0 Output Total 0 / 0 0 / 0 Balance 0 / 0 0 / 0 Lab / Micro Data 01/06/24 06:50 01/06/24 06:50 Labs: Laboratory Results - last 24 hr 01/05/24 18:20: WBC 8.8, RBC 4.68, Hgb 15.2 H, Hct 45.6, MCV 97.4, MCH 32.5 H, MCHC 33.3, RDW Std Deviation 48.6 H, RDW Coeff of Dedrick 13.3, Plt Count 187, MPV 12.2 H, Immature Gran % (Auto) 0.800, Neut % (Auto) 76.2 H, Lymph % (Auto) 13.6 L, [place] % (Auto) 8.4, Eos % (Auto) 0.2, Baso % (Auto) 0.8, Absolute Neuts (auto) 6.7, Absolute Lymphs (auto) 1.20, Nucleated RBC % 0, PT 18.9 H, INR 1.6, APTT 27.0, Sodium 139, Potassium 4.1, Chloride 104, Carbon Dioxide 28.0, Anion Gap 7, BUN 34 H, Creatinine 1.48 H, Estim Creat Clear Calc 33.57, Est GFR (MDRD) Af Amer 43 L, Est GFR (MDRD) Non-Af 36 L, BUN/Creatinine Ratio 23.0 H, Glucose 128 H, Lactic Acid 1.8, Calcium 9.4, Troponin I High Sens 24, B-Natriuretic Peptide 161.7 H 01/05/24 19:50: Urine Color Yellow, Urine Clarity Clear, Urine pH 6.5, Ur Specific Pipestem 1.015, Urine Protein 15 H, Urine Glucose (UA) 1000 H, Urine Ketones Negative, Urine Occult Blood Negative, Urine Nitrite Negative, Urine Bilirubin Negative, Urine Urobilinogen 4 H, Ur Leukocyte Esterase Negative, Urine RBC 0-5 SEEN, Urine WBC 0-5 SEEN, Ur Squamous Epith Cells 0-5 SEEN, Urine Bacteria 0 SEEN, Hyaline Casts 0-5 SEEN, Urine Mucus 0 SEEN 01/05/24 21:25: Magnesium 2.4, Troponin I High Sens 24 01/05/24 21:58: Procalcitonin 0.08 01/06/24 00:25: Ammonia < 10.0 L 01/06/24 06:50: WBC 8.4, RBC 4.55, Hgb 14.6, Hct 44.3, MCV 97.4, MCH 32.1 H, MCHC 33.0, RDW Std Deviation 48.2 H, RDW Coeff of Dedrick 13.4, Plt Count 188, MPV 12.4 H, Immature Gran % (Auto) 0.900, Neut % (Auto) 89.0 H, Lymph % (Auto) 7.4 L , [place] % (Auto) 2.5, Eos % (Auto) 0.0, Baso % (Auto) 0.2, Absolute Neuts (auto) 7.5, Absolute Lymphs (auto) 0.62 L, Nucleated RBC % 0, Sodium 139, Potassium 4.6, Chloride 108 H, Carbon Dioxide 24.0, Anion Gap 7, BUN 33 H, Creatinine 1.44 H, Estim Creat Clear Calc 34.35, Est GFR (MDRD) Af Amer 45 L, Est GFR (MDRD) Non-Af 37 L, BUN/Creatinine Ratio 22.9 H, Glucose 138 H, Hemoglobin A1c 5.8 H, Calcium 9.6, Total Bilirubin 1.30 H, AST 19, ALT 17, Alkaline Phosphatase 55, Total Protein 6.9, Albumin 3.3, Globulin 3.6, Albumin/Globulin Ratio 0.9, Triglycerides 99, Cholesterol 201 H, LDL Cholesterol 140 H, VLDL Cholesterol 20, HDL Cholesterol 41, TSH 1.140 Micro: Microbiology 01/05/24 22:50 Mucosa - Nasopharyngeal Respiratory Panel (PCR) - Final 01/05/24 19:11 Mucosa - Nose SARS-CoV-2, Influenza & RSV (PCR) - Final ABG Data ABG results: ABG 01/06/24 00:34 Specimen Type ART Sample Site R Radial pH 7.51 H Bicarbonate Actual 22.4 Total CO2 23 Base Excess -1 O2 Saturation 98 ABG pCO2 28.1 L ABG pO2 85 Brandon Test Positive O2 Delivery Device Room Air Vent Mode Not entered Radiography Diagnostic Testing: Radiology Impression Chest X-Ray 01/05/24 18:06 IMPRESSION: Incomplete expansion of the lungs. Patchy bilateral pulmonary opacities suggestive of pulmonary edema. Cannot exclude multifocal pneumonia. Electronically Signed: Ankush Sosa MD at 20:34 EDT , Head/Neck CTA 01/05/24 18:06 IMPRESSION: Severe calcific plaquing of the right carotid bulb creating greater than 70% stenosis. 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 Occluded left common carotid just distal to the origin with reconstitution at the level of the cavernous carotid in the brain N.B. : The above Results were Read Back by Benito Chan MD to James Hodges DO, and understanding confirmed on 01/05/2024 21:10:00 (ET). Electronically Signed: Benito Chan MD at 20:58 EDT , Physical Exam Narrative General: Arousable, disoriented, Cooperative, No apparent distress HEENT: Atraumatic, PERRLA, EOMI, Normocephalic Oral: Moist Mucosa Neck: Supple, No JVD Lungs: Clear to auscultation, Normal air movement, No rhonchi, No wheeze, No rales Cardiovascular: Irregular rate and rhythm, Normal S1, Normal S2, No murmurs Abdomen: Soft, Non Tender, Non-Distended, No Hepato-splenomegaly Extremities: No edema, Capillary Refill Less than 3 Seconds Skin: No rashes, No breakdown Musculoskeletal: No Tenderness to Palpation of Joints or Extremities Neurological: NIH of 14 upper and lower extremity weakness Psych/Mental Status: Flat Assessment & Plan Assessment/Plan (1) Altered mental status: PLAN: Plan #1. Acute aphasia concerning for TIA/CVA: Will admit to PCU, will obtain MRI Brain, ECHO repeat as noted with bubble study concurrently, PT/OT/Speech/Nutrition evaluation per protocol. Will allow permissive HTN temporarily, maintain on asa, will hold on statin as she does have underlying history but is not on statin but unclear reason why thus will attempt to investigate further, AM FLP, fall precautions. Mag, TSH, FLP, HgbA1c requested. Maintain on fall and aspiration precautions. Will request Neurology consultation. UA unremarkable. 01/06/2024: MRI positive for several acute strokes on the left with occlusion of the left internal carotid artery with distal cavernous reconstitution. Consult to [facility] neurology for evaluation #2. CXR comments of possible Decompensated HFrEF versus possible multifocal pneumonia, complicated by recent valvular surgery intervention with mechanical falls, weakness, debility, adult failure to thrive with noted significant orthostatic vital sign assessment/orthostasis: Given her presentation more suspicious for possible infection than #1. Also, given significant orthostasis and no obvious distress or marked edema will defer diuresis, no recent shortness of breath, chest discomfort, weight gain or peripheral increased edema. BNP requested. Will maintain on telemetry monitoring, given #1 temporary permissive hypertension but will avoid any aggressive fluid administration until assure what process is ongoing, will request repeat echocardiogram as well as records from recent valve replacement to be certain things appear appropriate, will obtain full respiratory viral panel as well as procalcitonin, maintain on fall precautions, PT/OT/case management as noted above concurrently. 01/06/2024: Echo with an EF of 30% and severe aortic stenosis with a bioprosthetic valve on echo in September. Continue with Eliquis despite the acute CVA monitor for change in NIH will await neuroevaluation #3. Valvular heart disease with recent presumed possible TAVR with previous history of bioprosthetic aortic valve additionally: Patient with last echo in the system noted 09/22/2023 thus this is prior to most recent intervention with normal LV size, severe concentric LVH, LA mildly enlarged, LVEF 30%, moderate to severe global hypokinesis LV, mean aortic valve gradient 49 mmHg, severe aortic stenosis, bioprosthetic aortic valve present, compared to previous LV function reduced and aortic valve appears to be more stenosed. Encourage continued outpatient follow-up with cardiothoracic surgery, cardiology as previously arranged. Records requested to discern exact recent intervention although suspect related with aortic valve for repeat replacement. Repeat echocardiogram requested given presentation as noted. #4. Hypertension: Will temporally hold regimen given number 1 investigation per stroke protocol, as needed agents per stroke order set. #4. Hyperlipidemia: Per current list does not appear to be on any statin therapy, FLP in AM. #5. PAF: We will continue home Eliquis regimen, temporarily holding metoprolol given permissive hypertension, add back once appropriate. #6. Chronic Kidney Disease Stage IIIa per records: Admission BUN/Cr 34/1.48, GFR 36, baseline renal function primarily 1.3-1.6 but did vacillate and was noted to be on 12/18/creatinine 1.90, repeat BMP in AM. #7. Morbid Obesity: Weight loss and lifestyle changes encourage. #8. GERD with history of gastric ulcer: We will continue patient home PPI. DVT: Eliquis Charges/Coding Visit Charges Inpatient E&M: 23837 Subs Hosp L2
[2024-01-06] MEDS: APIXABAN 5 MG TABLET PO (13:32)
[2024-01-06] MEDS: Pantoprazole Sodium 40 MG Tablet PO (13:33)
[2024-01-06] MEDS: Aspirin 81 MG TAB.CHEW PO (13:33)
[2024-01-06] MEDS: Febuxostat 40 MG TABLET PO (13:33)
--- NOTE | 2024-01-06 16:02 | CASEMGMT ---
Addendum entered by Nereyda Navarro 01/06/24 16:08: Pt previously had [facility]. JAQUAN Kelley Original Note: Social Work- SW met with pt, pt dtr, and pt son. SW administered PHQ9; pt score of 2. Pt had been having difficulty sleeping. Pt and family report no concerns and declined any resources. Pt previously had HHC; would like again if need continued therapy. Pt lives with son who works 10-12 hours/day. Pt dtr recently retired & lives out of town, but near by. Pt son and dtr open to SNF if it is recommended pt not d/c home with HHC; SW provided education on process. SW remains available to follow. JAQUAN Kelley
--- NOTE | 2024-01-06 22:55 | STROKE.CONS ---
Assessment and Plan: Stroke Assessment/Plan BRIANNE CALL is a 83 F with a history of a fib on Eliquiswho presents for evaluation of AMS and R weakness. She take Eliquis. Might have missed one dose. But usually takes all her pills daily on time. Neurological examination shows AMS, pt is drowsy not following commands. Did just receive meds. Per RN she does move all her extremities. 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 - Anti-platelet medication: Eliquis. Can start tomorrow. - Occupational/ Physical therapy consults - NPO until swallow evaluation. IVF until able to take po - DVT prophylaxis with SCDs and heparin SQ - Vascular risk factor modification. The following are the recommended guidelines: LDL Goal < 70 Diabetes Management residential blood pressure control should achieve <130/80 mmHg. BP management should aim to achieve skilled nursing contorl in a reasonable amount of time, taking into consideration the individual patient's requirements and characteristics. Weight Management: Goal for BMI is 18.5 -24.9 kg/m2 Alcohol: No more than 2 drinks/day for men or 1 drink/day for non- women - Promote lifestyle modification: weight control, physical activity, moderation of alcohol intake, moderate sodium intake. Followup with PCP in 1-2 weeks, and in Neurology clinic in 6-12 weeks HPI Consult Data Date of Consult: 01/06/24 HPI Narrative HPI Narrative: BRIANNE CALL, is a 83 F who presents [facility] Medical History Osteoarthritis Chronic diastolic (congestive) heart failure Vitamin D deficiency Hyperlipidemia GERD (gastroesophageal reflux disease) Chronic kidney disease, stage 3a Hypokalemia Morbid obesity Severe aortic stenosis LVH (left ventricular hypertrophy) HFrEF (heart failure with reduced ejection fraction) ALONSO (dyspnea on exertion) Actinic keratosis History of skin cancer Pneumonia Gout Cataracts, bilateral Arthritis Encounter for preprocedural cardiovascular examination New onset atrial fibrillation (~08/2017) Hx of aortic valve stenosis Legionella pneumonia Pancreatitis Hypertension Gastric ulcer Home Medications ?Medication ?Instructions ?Recorded ?Last Taken ?Type metoprolol tartrate 25 mg tablet 12.5 mg PO BID BLOOD PRESSURE 07/10/17 12/26/17 06:00 History apixaban 5 mg tablet (Eliquis) 5 mg PO BID BLOOD THINNER 12/11/17 11/30/23 History febuxostat 40 mg tablet 40 mg PO DAILY 02/02/21 Unknown History pantoprazole 40 mg tablet,delayed 40 mg PO DAILY 02/02/21 Unknown History release dapagliflozin propanediol 10 mg 10 mg PO DAILY #90 tabs 11/08/23 Unknown Rx tablet (Farxiga) spironolactone 25 mg tablet 25 mg PO DAILY #90 tabs 11/08/23 Unknown Rx furosemide 40 mg tablet (Lasix) 40 mg PO DAILY #30 tabs 11/10/23 Unknown Rx Allergy/AdvReac Type Severity Reaction Status Date / Time Iodinated Contrast Media Allergy Intermediate Hives Verified 01/05/24 18:54 STANLEY Inhibitors AdvReac Intermediate Other Verified 11/08/23 09:28 dapagliflozin (From Farxiga) AdvReac Intermediate cough Verified 11/08/23 09:28 sacubitril (From Entresto) AdvReac Intermediate cough Verified 11/08/23 09:28 valsartan (From Entresto) AdvReac Intermediate cough Verified 11/08/23 09:28 lisinopril AdvReac COUGH Verified 11/08/23 09:28 Family History Father negative for CAD suspected ASD or VSD Mother Acute kidney failure Other Arthritis Hypertension Skin cancer Surgical History History of cataract removal with insertion of prosthetic lens History of aortic valve replacement History of appendectomy History of hysterectomy History of right and left heart catheterization History of left heart catheterization H/O right heart catheterization Social History (Updated 01/05/24 @ 22:[address] Maribel Vizcarra MD) household members: none Smoking Status: Never smoker alcohol intake: never substance use type: does not use additional social history: Does Not Take Aspirin Does Not Take Ibuprofen Vital Signs Vital Signs Vital Signs: 01/06/24 02:00 01/06/24 04:16 01/06/24 06:00 Temperature 98.3 F 95.8 F L Temperature Source Temporal Temporal Pulse Rate 69 61 Pulse Rate [Lying] Pulse Rate [Sitting (for 1 minute prior to obtaining)] Pulse Rate [Standing (for 1 minute prior to obtaining)] Respiratory Rate 16 16 Respiratory Effort Normal Non-Labored Respiratory Depth Normal Respiratory Pattern Normal Blood Pressure 141/76 H 131/76 H Blood Pressure [Lying] Blood Pressure [Sitting (for 1 minute prior to obtaining)] Blood Pressure [Standing (for 1 minute prior to obtaining)] Blood Pressure Mean 97 94 Blood Pressure Mean [Lying] Blood Pressure Mean [Sitting (for 1 minute prior to obtaining)] Blood Pressure Mean [Standing (for 1 minute prior to obtaining)] Blood Pressure Source Monitor Monitor Blood Pressure Position Semi-Fowlers Semi-Fowlers Blood Pressure Location Right Arm Right Arm Pulse Ox 94 99 Oxygen Delivery Method Room Air Room Air Room Air 01/06/24 07:58 01/06/24 08:10 01/06/24 08:20 Temperature 97.6 F L Temperature Source Oral Pulse Rate 48 L Pulse Rate [Lying] Pulse Rate [Sitting (for 1 minute prior to obtaining)] Pulse Rate [Standing (for 1 minute prior to obtaining)] Respiratory Rate 16 Respiratory Effort Normal Non-Labored Respiratory Depth Normal Respiratory Pattern Normal Blood Pressure 141/80 H Blood Pressure [Lying] Blood Pressure [Sitting (for 1 minute prior to obtaining)] Blood Pressure [Standing (for 1 minute prior to obtaining)] Blood Pressure Mean 100 Blood Pressure Mean [Lying] Blood Pressure Mean [Sitting (for 1 minute prior to obtaining)] Blood Pressure Mean [Standing (for 1 minute prior to obtaining)] Blood Pressure Source Monitor Blood Pressure Position Semi-Fowlers Blood Pressure Location Right Forearm Pulse Ox 99 98 Oxygen Delivery Method Room Air Room Air Room Air 01/06/24 08:26 01/06/24 12:10 01/06/24 14:00 Temperature 97.5 F L Temperature Source Oral Pulse Rate 46 L Pulse Rate [Lying] 49 L Pulse Rate [Sitting (for 1 minute prior to obtaining)] 57 L Pulse Rate [Standing (for 1 minute prior to obtaining)] 52 L Respiratory Rate 16 Respiratory Effort Normal Non-Labored Respiratory Depth Normal Respiratory Pattern Normal Blood Pressure 138/81 H Blood Pressure [Lying] 140/68 H Blood Pressure [Sitting (for 1 minute prior to obtaining)] 154/95 H Blood Pressure [Standing (for 1 minute prior to obtaining)] 159/114 H Blood Pressure Mean 100 Blood Pressure Mean [Lying] 92 Blood Pressure Mean [Sitting (for 1 minute prior to obtaining)] 114 Blood Pressure Mean [Standing (for 1 minute prior to obtaining)] 129 Blood Pressure Source Monitor Blood Pressure Position Semi-Fowlers Blood Pressure Location Right Forearm Pulse Ox 98 Oxygen Delivery Method Room Air Room Air 01/06/24 16:10 01/06/24 19:34 01/06/24 20:11 Temperature 96.9 F L 97 F L Temperature Source Temporal Temporal Pulse Rate 45 L 48 L Pulse Rate [Lying] Pulse Rate [Sitting (for 1 minute prior to obtaining)] Pulse Rate [Standing (for 1 minute prior to obtaining)] Respiratory Rate 16 16 Respiratory Effort Normal Non-Labored Respiratory Depth Normal Respiratory Pattern Normal Blood Pressure 165/76 H 151/84 H Blood Pressure [Lying] Blood Pressure [Sitting (for 1 minute prior to obtaining)] Blood Pressure [Standing (for 1 minute prior to obtaining)] Blood Pressure Mean 105 106 Blood Pressure Mean [Lying] Blood Pressure Mean [Sitting (for 1 minute prior to obtaining)] Blood Pressure Mean [Standing (for 1 minute prior to obtaining)] Blood Pressure Source Monitor Monitor Blood Pressure Position Semi-Fowlers Semi-Fowlers Blood Pressure Location Right Arm Right Arm Pulse Ox 95 97 Oxygen Delivery Method Room Air Room Air Room Air 01/06/24 20:20 Temperature 98.4 F Temperature Source Oral Pulse Rate 86 Pulse Rate [Lying] Pulse Rate [Sitting (for 1 minute prior to obtaining)] Pulse Rate [Standing (for 1 minute prior to obtaining)] Respiratory Rate 16 Respiratory Effort Respiratory Depth Respiratory Pattern Blood Pressure 164/75 H Blood Pressure [Lying] Blood Pressure [Sitting (for 1 minute prior to obtaining)] Blood Pressure [Standing (for 1 minute prior to obtaining)] Blood Pressure Mean 104 Blood Pressure Mean [Lying] Blood Pressure Mean [Sitting (for 1 minute prior to obtaining)] Blood Pressure Mean [Standing (for 1 minute prior to obtaining)] Blood Pressure Source Monitor Blood Pressure Position Semi-Fowlers Blood Pressure Location Right Arm Pulse Ox 98 Oxygen Delivery Method Room Air Weight Weight: 107.4 kg Body Mass Index (BMI) 43.5 EEG Results Procedure Details EEG Procedure Details: BRIANNE CALL is a 83 year old F with a past medical history of , who presents for evaluation of Electroencephalogram on DATE at TIME NIHSS NIHSS Nursing Documentation NIHSS Nursing Documentation: NIHSS: Ischemic Stroke/TIA Start: 01/05/24 22:39 Text: For PCU Patients: NIH and Neuro Check every 4 Status: Active hours, PRN and with change in RN caregiver. Freq: [id number] Protocol: Activity Type Activity Date Activity User E-sign Co-sign Detail Recorded Client Recorded Date Recorded By Document 01/06/24 19:34 Tawny [id number] 01/06/24 19:41 HANS 01/06/24 19:34 NIH Stroke Scale [NIHSS] A score of 0 is normal or asymptomatic . Total possible score is 42. Inpatient: RN or Physician to activate a stroke alert for onset of new stroke symptoms or with NIHSS increase >/= 3 points. Following change in neurological status, NIHSS will be performed per physician order or more frequently PRN. -1a. Level of Consciousness Not alert; Arouse to repeat stimuli or strong/pain stimuli if obtunded -1b. LOC Questions Answers one question correctly. -1c. LOC Commands Performs both tasks correctly . -2. Best Gaze Partial gaze palsy; -3. Visual Partial hemianopia -4. Facial Palsy Minor paralysis (flattened nasolabial fold , asymmetry on smiling) -5a. Left Arm No drift; arm holds 90 (or 45 ) degrees for full 10 seconds -5b. Right Arm Some effort against gravity ; -6a. Left Leg Drift; leg falls by the end of 5- seconds, but does not hit bed -6b. Right Leg Some effort against gravity ; -7. Limb Ataxia Present in 2 limbs -8. Sensory Normal; no sensory loss -9. Best Language Severe aphasia; -10. Dysarthria Mild-to- moderate dysarthria; -11. Extinction and Inattention Visual, tactile , auditory, spatial, or personal inattention -Total 17 Query Text:A score of 0 is normal or asymptomatic. Total possible score is 42 . ED: Notify Physician for NIHSS increase by > / = 3 points. Inpatient: RN or Physician to activate a stroke alert for NIHSS increase of > / = 3 points. Lab / Micro Data 01/06/24 06:50 01/06/24 06:50 Labs: Laboratory Results - last 24 hr 01/05/24 21:25: Troponin I High Sens 24 01/06/24 00:25: Ammonia < 10.0 L 01/06/24 06:50: WBC 8.4, RBC 4.55, Hgb 14.6, Hct 44.3, MCV 97.4, MCH 32.1 H, MCHC 33.0, RDW Std Deviation 48.2 H, RDW Coeff of Dedrick 13.4, Plt Count 188, MPV 12.4 H, Immature Gran % (Auto) 0.900, Neut % (Auto) 89.0 H, Lymph % (Auto) 7.4 L, [place] % (Auto) 2.5, Eos % (Auto) 0.0, Baso % (Auto) 0.2, Absolute Neuts (auto) 7.5, Absolute Lymphs (auto) 0.62 L, Nucleated RBC % 0, Sodium 139, Potassium 4.6, Chloride 108 H, Carbon Dioxide 24.0, Anion Gap 7, BUN 33 H, Creatinine 1.44 H, Estim Creat Clear Calc 34.35, Est GFR (MDRD) Af Amer 45 L, Est GFR (MDRD) Non-Af 37 L, BUN/Creatinine Ratio 22.9 H, Glucose 138 H, Hemoglobin A1c 5.8 H, Calcium 9.6, Total Bilirubin 1.30 H, AST 19, ALT 17, Alkaline Phosphatase 55, Total Protein 6.9, Albumin 3.3, Globulin 3.6, Albumin/Globulin Ratio 0.9, Triglycerides 99, Cholesterol 201 H, LDL Cholesterol 140 H, VLDL Cholesterol 20, HDL Cholesterol 41, TSH 1.140 Micro: Microbiology 01/05/24 22:50 Mucosa - Nasopharyngeal Respiratory Panel (PCR) - Final 01/05/24 19:11 Mucosa - Nose SARS-CoV-2, Influenza & RSV (PCR) - Final ABG Data ABG results: ABG 01/06/24 00:34 Specimen Type ART Sample Site R Radial pH 7.51 H Bicarbonate Actual 22.4 Total CO2 23 Base Excess -1 O2 Saturation 98 ABG pCO2 28.1 L ABG pO2 85 Brandon Test Positive O2 Delivery Device Room Air Vent Mode Not entered Imaging Radiology Impression Brain MRI 01/05/24 22:39 IMPRESSION: Multiple small acute left frontal, parietal, temporal, and cerebellar infarcts. 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 Electronically Signed: Gwen Nair MD at 13:38 EDT , ADDENDUM: 01/06/24 1421 IMPRESSION: Multiple small acute left frontal, parietal, temporal, and cerebellar infarcts. 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 N.B. : Emily Mobley RN, confirmed on 01/06/2024 14:14:28 (ET) that the healthcare facility has received the radiology report. Electronically Signed: Gwen Nair MD at 13:38 EDT , Active Medications Active Medications Active Medications: Current Medications Generic Name Dose Route Start Last Admin Trade Name Freq PRN Reason Stop Dose Admin Acetaminophen 650 mg 01/05/24 22:39 Acetaminophen 325 Mg Tablet PO Q4H PRN PRN Fever, pain 1-12/27 Al Hydroxide/Mg Hydroxide 30 ml 01/05/24 22:39 Mag Hydrox/Al Hydrox/Simeth 30 Ml Udc PO Q6H PRN PRN Gastric Burning Albuterol Sulfate 2.5 mg 01/05/24 22:39 Albuterol 2.5 Mg/3 Ml Vial.Neb. INHALATION Q2H PRN PRN Dyspnea, wheezing Apixaban 5 mg 01/05/24 22:39 01/06/24 13:32 Apixaban 5 Mg Tablet PO 5 mg BID KAMI Administration Aspirin 81 mg 01/06/24 08:00 01/06/24 13:33 Aspirin 81 Mg Tab.Chew PO 81 mg BREAKFAST KAMI Administration Febuxostat 40 mg 01/06/24 10:00 01/06/24 13:33 Febuxostat 40 Mg Tablet PO 40 mg DAILY KAMI Administration Guaifenesin 20 ml 01/05/24 22:39 Guaifenesin 10 Ml Udc (200mg/10ml) PO Q4H PRN PRN COUGH Sodium Chloride 500 mls @ 15 mls/hr 01/05/24 23:08 IV .[id number] PRN Saline Flush Sodium Chloride 500 mls @ 15 mls/hr 01/05/24 23:08 IV .[id number] PRN Additional IVPB Infusion Melatonin 3 mg 01/05/24 22:39 Melatonin 3 Mg Tablet PO QHS PRN PRN INSOMNIA Ondansetron HCl 4 mg 01/05/24 22:39 Ondansetron 4 Mg/2 Ml Vial IV Q8H PRN PRN NAUSEA/VOMITING Pantoprazole Sodium 40 mg 01/06/24 10:00 01/06/24 13:33 Pantoprazole Sodium 40 Mg Tablet PO 40 mg DAILY KAMI Administration Prochlorperazine Edisylate 5 mg 01/05/24 22:39 Prochlorperazine 10 Mg/2 Ml Vial IV Q4H PRN PRN Breakthrough Nausea/Vomiting Senna/Docusate Sodium 2 tablet 01/05/24 22:39 Senna/Docusate Sodium 1 Tablet PO BID PRN PRN Constipation Sodium Chloride 10 - 40 ml 01/05/24 23:08 0.9% Saline Lock 10 Ml Syringe IV UD PRN SALINE FLUSH
[2024-01-07] VITALS (9 sets, daily range): BP systolic 115–178; BP diastolic 62–91; PULSE 41–75; RESP 16–18; TEMP 36–36.8; O2SAT 94–98; BMI 43.5
[2024-01-07 04:17] LABS: Absolute Lymphocyte Count 1.42 X10^3/uL (0.83-4.51); Absolute Neutrophil Count 7.4 X10^3/uL (2.0-7.7); Basophil# 0.09 X10^3/uL; Basophil% 0.9 % (0-1); Eosinophil# 0.03 X10^3/uL; Eosinophils% 0.3 % (0-5); Hematocrit 45.3 % (37-47); Lymphocyte # 1.42 X10^3/ul (0.83-4.51); Lymphocyte % 14.2 % (19-41); Mean Corp Hgb Conc 33.1 g/dL (32-36); Mean Corpuscular Hgb 32.3 pg (27.0-32.0); Mean Corpuscular Volume 97.4 fL (81-99); Mean Platelet Vol. 12.1 fl (6.2-12.0); Monocyte# 0.98 X10^3/uL; Monocyte% 9.8 % (0-10); NRBC Flagged by Analyzer 0 % (0-5); Neutrophil % 74.2 % (47-70); Platelet Count 193 K/mm3 (150-450); RBC Distribution Width CV 13.5 % (11.6-14.6); RBC Distribution Width SD 48.4 fl (35.1-43.9); Red Blood Count 4.65 M/mm3 (4.2-5.4)
[2024-01-07 04:54] LABS: Anion Gap 7 (5-15); BUN 31 mg/dL (7-18); BUN/Creat Ratio 22.3 RATIO (10-20); Calcium,Total 9.6 mg/dL (8.5-10.1); Chloride 105 mmol/L (98-107); Creatinine, Serum 1.39 mg/dL (0.55-1.02); EST Glomerular Filtration Rate 39 mL/min (>60); Est Glom Filt Rate - Afr Amer 47 mL/min (>60); Estimated Creatinine Clearance 35.49 ml/min; Glucose 106 mg/dL (74-106); Potassium 4.3 mmol/L (3.5-5.1); Sodium Level 136 mmol/L (136-145)
--- NOTE | 2024-01-07 10:34 | PN.HOSP_ITS ---
Subjective Subjective No issues overnight Objective Data Objective Data Vital Signs: Vital Signs Temp Pulse Resp BP Pulse Ox O2 Del Method 97.7 F L 41 L 16 136/73 H 94 Room Air 01/07/24 07:35 01/07/24 07:35 01/07/24 07:35 01/07/24 07:35 01/07/24 08:49 01/07/24 08:49 Oxygen Delivery Method Room Air Weight: 238 lb 5.115 oz Body Mass Index (BMI) 43.5 Intake & Output: Intake and Output for Last 24 Hours 01/06/24 01/07/24 01/08/24 03:59 03:59 03:59 Intake Total 0 / 0 200 / 200 Output Total 0 / 0 200 / 200 175 / 175 Balance 0 / 0 0 / 0 -175 / -175 Lab / Micro Data 01/07/24 03:50 01/07/24 03:50 Labs: Laboratory Results - last 24 hr 01/07/24 03:50: WBC 10.0, RBC 4.65, Hgb 15.0, Hct 45.3, MCV 97.4, MCH 32.3 H, MCHC 33.1, RDW Std Deviation 48.4 H, RDW Coeff of Dedrick 13.5, Plt Count 193, MPV 12.1 H, Immature Gran % (Auto) 0.600, Neut % (Auto) 74.2 H, Lymph % (Auto) 14.2 L, [place] % (Auto) 9.8, Eos % (Auto) 0.3, Baso % (Auto) 0.9, Absolute Neuts (auto) 7.4, Absolute Lymphs (auto) 1.42, Nucleated RBC % 0, Sodium 136, Potassium 4.3, Chloride 105, Carbon Dioxide 24.0, Anion Gap 7, BUN 31 H, Creatinine 1.39 H, Estim Creat Clear Calc 35.49, Est GFR (MDRD) Af Amer 47 L, Est GFR (MDRD) Non-Af 39 L, BUN/Creatinine Ratio 22.3 H, Glucose 106, Calcium 9.6 Micro: Microbiology 01/05/24 22:50 Mucosa - Nasopharyngeal Respiratory Panel (PCR) - Final 01/05/24 19:11 Mucosa - Nose SARS-CoV-2, Influenza & RSV (PCR) - Final Radiography Diagnostic Testing: Radiology Impression Brain MRI 01/05/24 22:39 IMPRESSION: Multiple small acute left frontal, parietal, temporal, and cerebellar infarcts. 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 Electronically Signed: Gwen Nair MD at 13:38 EDT Reading Location ID and State: [facility] / [place] Tel , Service support , ADDENDUM: 01/06/24 1421 IMPRESSION: Multiple small acute left frontal, parietal, temporal, and cerebellar infarcts. 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 N.B. : Emily Mobley RN, confirmed on 01/06/2024 14:14:28 (ET) that the healthcare facility has received the radiology report. Electronically Signed: Gwen Nair MD at 13:38 EDT , Physical Exam Narrative General: Arousable, disoriented, No apparent distress HEENT: Atraumatic, PERRLA, EOMI, Normocephalic Oral: Moist Mucosa Neck: Supple, No JVD Lungs: Clear to auscultation, Normal air movement, No rhonchi, No wheeze, No rales Cardiovascular: Irregular rate and rhythm, Normal S1, Normal S2, No murmurs Abdomen: Soft, Non Tender, Non-Distended, No Hepato-splenomegaly Extremities: No edema, Capillary Refill Less than 3 Seconds Skin: No rashes, No breakdown Musculoskeletal: No Tenderness to Palpation of Joints or Extremities Neurological: NIH of 14 upper and lower extremity weakness with aphasia and dysarthria Psych/Mental Status: Flat Assessment & Plan Assessment/Plan (1) Altered mental status: PLAN: Plan #1. Acute aphasia concerning for TIA/CVA: Will admit to PCU, will obtain MRI Brain, ECHO repeat as noted with bubble study concurrently, PT/OT/Speech/Nutrition evaluation per protocol. Will allow permissive HTN temporarily, maintain on asa, will hold on statin as she does have underlying history but is not on statin but unclear reason why thus will attempt to investigate further, AM FLP, fall precautions. Mag, TSH, FLP, HgbA1c requested. Maintain on fall and aspiration precautions. Will request Neurology consultation. UA unremarkable. 01/06/2024: MRI positive for several acute strokes on the left with occlusion of the left internal carotid artery with distal cavernous reconstitution. Consult to [facility] neurology for evaluation 01/07/2024: Will obtain a carotid ultrasound tomorrow for better characterization of the CTA findings, will discuss with vascular surgery #2. CXR comments of possible Decompensated HFrEF versus possible multifocal pneumonia, complicated by recent valvular surgery intervention with mechanical falls, weakness, debility, adult failure to thrive with noted significant orthostatic vital sign assessment/orthostasis: Given her presentation more suspicious for possible infection than #1. Also, given significant orthostasis and no obvious distress or marked edema will defer diuresis, no recent shortness of breath, chest discomfort, weight gain or peripheral increased edema. BNP requested. Will maintain on telemetry monitoring, given #1 temporary permissive hypertension but will avoid any aggressive fluid administration until assure what process is ongoing, will request repeat echocardiogram as well as records from recent valve replacement to be certain things appear appropriate, will obtain full respiratory viral panel as well as procalcitonin, maintain on fall precautions, PT/OT/case management as noted above concurrently. 01/06/2024: Echo with an EF of 30% and severe aortic stenosis with a bioprosthetic valve on echo in September. Continue with Eliquis despite the acute CVA monitor for change in NIH will await neuroevaluation #3. Valvular heart disease with recent presumed possible TAVR with previous history of bioprosthetic aortic valve additionally: Patient with last echo in the system noted 09/22/2023 thus this is prior to most recent intervention with normal LV size, severe concentric LVH, LA mildly enlarged, LVEF 30%, moderate to severe global hypokinesis LV, mean aortic valve gradient 49 mmHg, severe aortic stenosis, bioprosthetic aortic valve present, compared to previous LV function reduced and aortic valve appears to be more stenosed. Encourage continued outpatient follow-up with cardiothoracic surgery, cardiology as previously arranged. Records requested to discern exact recent intervention although suspect related with aortic valve for repeat replacement. Repeat echocardiogram requested given presentation as noted. #4. Hypertension: Will temporally hold regimen given number 1 investigation per stroke protocol, as needed agents per stroke order set. 01/07/2024: Will reinstitute blood pressure medications #4. Hyperlipidemia: Per current list does not appear to be on any statin therapy, FLP in AM. 01/07/2024: Continue with statin therapy #5. PAF: We will continue home Eliquis regimen, temporarily holding metoprolol given permissive hypertension, add back once appropriate. #6. Chronic Kidney Disease Stage IIIa per records: Admission BUN/Cr 34/1.48, GFR 36, baseline renal function primarily 1.3-1.6 but did vacillate and was noted to be on 12/18/creatinine 1.90, repeat BMP in AM. #7. Morbid Obesity: Weight loss and lifestyle changes encourage. #8. GERD with history of gastric ulcer: We will continue patient home PPI. DVT: Eliquis Charges/Coding Visit Charges Inpatient E&M: 17691 Subs Hosp L2
--- NOTE | 2024-01-07 10:41 | CDU_ITS ---
Reason For Study: Stroke Rt. Velocities/BP Lt. Velocities/BP Prox CCA 62.2/8.1 cm/sec. Prox CCA 32.4 cm/sec. Mid CCA 50/9.9 cm/sec. Mid CCA 20.8 cm/sec. Dist CCA 50.9/9.9 cm/sec. Dist CCA 11.5 cm/sec. Prox ICA 63.1/16 cm/sec. Prox ICA 0 cm/sec. Mid ICA 83.2/29.3 cm/sec. Mid ICA 0 cm/sec. Dist ICA 71.8/21.2 cm/sec. Distal ICA, retrograde flow. Rt. ICA/CCA = 1.66. Prox ECA 447.1/15.3 cm/sec. Prox ECA 70.9/4.6 cm/sec. Lt. Vert. 48.8/14.7 cm/sec. Rt. Vert. 85/20.1 cm/sec. Right Extracranial There is homogeneous, smooth atherosclerotic plaque noted in the right common carotid artery. There is heterogeneous, irregular atherosclerotic plaque noted in the right internal carotid artery. There is heterogeneous, irregular atherosclerotic plaque noted in the right external carotid artery. Antegrade flow is noted in the right vertebral artery. Left Extracranial There is homogeneous, smooth atherosclerotic plaque noted in the left common carotid artery. Drumbeat flow noted throughout the CCA. The left internal carotid artery is occluded. Retrograde flow noted in the distal ICA. There is heterogeneous, irregular atherosclerotic plaque noted in the left external carotid artery. Antegrade flow is noted in the left vertebral artery. Procedure Carotid Duplex [id number]. This is a Carotid Duplex examination using B-mode, color flow and specral Doppler. Preliminary report given to business development sales executive. Exam performed portable in patient room. VL/Carotid Duplex Ultrasound Interpretation Summary Mild (<50%) stenosis right extracranial internal carotid. Occlusion of the left extracranial internal carotid. Patent and antegrade vertebrals bilaterally. Ordering Physician: Ricardo Viera Referring Physician: Scott Hull Chi Performed By: Allyssa Solano RVT
[2024-01-07] MEDS: APIXABAN 5 MG TABLET PO ×2 (11:47→21:00)
[2024-01-07] MEDS: Pantoprazole Sodium 40 MG Tablet PO (11:47)
[2024-01-07] MEDS: Febuxostat 40 MG TABLET PO (11:47)
[2024-01-07] MEDS: Aspirin 81 MG TAB.CHEW PO (11:47)
--- NOTE | 2024-01-07 15:42 | CT_ITS ---
STUDY: CT BRAIN WITHOUT CONTRAST REASON FOR EXAM: Female, 83 years old. worsening stroke symptoms Individualized dose optimization techniques were used for this CT. TECHNIQUE: Transaxial CT imaging of the brain was performed without administration of intravenous contrast material. COMPARISON: 01.05.24 CT head. An MRI done yesterday FINDINGS: There are calcifications noted in the distal vertebral arteries. There are calcifications noted in the cavernous carotid arteries. This is consistent for atherosclerotic disease. Normal calvarium. Normal soft tissues. There is mild cerebral atrophy with widening of the extra-axial spaces and ventricular dilatation. There are areas of decreased attenuation within the white matter tracts of the supratentorial brain, consistent with microvascular disease changes. Normal basal ganglia and thalami. Normal brainstem. There is mild cerebellar atrophy. There is no intracranial hemorrhage. Punctate area of low density in the left cerebral hemisphere, left basal ganglia, and left frontal parietal lobe. Normal visualized paranasal sinuses. CT/Brain/Head without Contrast IMPRESSION: Multiple left-sided acute infarcts as described above. This correlate with MRI findings. Electronically Signed: Tarun Aguiar MD at 16:40 EDT ,
[2024-01-07] MEDS: Atorvastatin Calcium 40 MG Tablet PO (21:01)
[2024-01-08] VITALS (8 sets, daily range): BP systolic 124–165; BP diastolic 59–88; PULSE 48–69; RESP 16–18; TEMP 35.5–36.6; O2SAT 86–96; BMI 44.2
[2024-01-08 09:10] LABS: Anion Gap 8 (5-15); BUN 27 mg/dL (7-18); BUN/Creat Ratio 21.1 RATIO (10-20); Calcium,Total 9.3 mg/dL (8.5-10.1); Chloride 101 mmol/L (98-107); Creatinine, Serum 1.28 mg/dL (0.55-1.02); EST Glomerular Filtration Rate 42 mL/min (>60); Est Glom Filt Rate - Afr Amer 51 mL/min (>60); Estimated Creatinine Clearance 38.87 ml/min; Glucose 106 mg/dL (74-106); Potassium 4.5 mmol/L (3.5-5.1); Sodium Level 135 mmol/L (136-145)
--- NOTE | 2024-01-08 10:41 | PCM.PN.HOSP ---
Subjective Subjective Very little improvement since admission on her NIH, there is a slightly worsening in her NIH as yesterday so CT of the brain was obtained to rule out bleed, and it was negative Objective Data Objective Data Vital Signs: Vital Signs Temp Pulse Resp BP Pulse Ox O2 Del Method O2 Flow Rate 97.5 F L 48 L 16 124/59 H 93 Room Air 3 01/08/24 07:50 01/08/24 07:50 01/08/24 07:50 01/08/24 07:50 01/08/24 07:50 01/08/24 07:50 01/07/24 16:23 Oxygen Flow Rate (L/min) 3 Oxygen Delivery Method Room Air Weight: 241 lb 13.553 oz Body Mass Index (BMI) 44.2 Intake & Output: Intake and Output for Last 24 Hours 01/07/24 01/08/24 01/09/24 03:59 03:59 03:59 Intake Total 200 / 200 240 / 240 Output Total 200 / 200 625 / 625 Balance 0 / 0 -385 / -385 Lab / Micro Data 01/07/24 03:50 01/08/24 08:23 Labs: Laboratory Results - last 24 hr 01/08/24 05:17: Sodium Cancelled, Potassium Cancelled, Chloride Cancelled, Carbon Dioxide Cancelled, Anion Gap Cancelled, BUN Cancelled, Creatinine Cancelled, Estim Creat Clear Calc Cancelled, Est GFR (MDRD) Af Amer Cancelled, Est GFR (MDRD) Non-Af Cancelled, BUN/Creatinine Ratio Cancelled, Glucose Cancelled, Calcium Cancelled 01/08/24 08:23: Sodium 135 L, Potassium 4.5, Chloride 101, Carbon Dioxide 25.0, Anion Gap 8, BUN 27 H, Creatinine 1.28 H, Estim Creat Clear Calc 38.87, Est GFR (MDRD) Af Amer 51 L, Est GFR (MDRD) Non-Af 42 L, BUN/Creatinine Ratio 21.1 H, Glucose 106, Calcium 9.3 Micro: Microbiology 01/05/24 22:50 Mucosa - Nasopharyngeal Respiratory Panel (PCR) - Final 01/05/24 19:11 Mucosa - Nose SARS-CoV-2, Influenza & RSV (PCR) - Final Radiography Diagnostic Testing: Radiology Impression Brain CT 01/07/24 15:42 IMPRESSION: Multiple left-sided acute infarcts as described above. This correlate with MRI findings. Electronically Signed: Tarun Aguiar MD at 16:40 EDT , Physical Exam Narrative General: Arousable, disoriented, No apparent distress HEENT: Atraumatic, PERRLA, EOMI, Normocephalic Oral: Moist Mucosa Neck: Supple, No JVD Lungs: Clear to auscultation, Normal air movement, No rhonchi, No wheeze, No rales Cardiovascular: Irregular rate and rhythm, Normal S1, Normal S2, No murmurs Abdomen: Soft, Non Tender, Non-Distended, No Hepato-splenomegaly Extremities: No edema, Capillary Refill Less than 3 Seconds Skin: No rashes, No breakdown Musculoskeletal: No Tenderness to Palpation of Joints or Extremities Neurological: Significant neurological derangements, NIH around 16 moves extremities but difficult to follow exam Psych/Mental Status: Flat Assessment & Plan Assessment/Plan (1) Altered mental status: PLAN: Plan #1. Acute aphasia concerning for TIA/CVA: Will admit to PCU, will obtain MRI Brain, ECHO repeat as noted with bubble study concurrently, PT/OT/Speech/Nutrition evaluation per protocol. Will allow permissive HTN temporarily, maintain on asa, will hold on statin as she does have underlying history but is not on statin but unclear reason why thus will attempt to investigate further, AM FLP, fall precautions. Mag, TSH, FLP, HgbA1c requested. Maintain on fall and aspiration precautions. Will request Neurology consultation. UA unremarkable. 01/06/2024: MRI positive for several acute strokes on the left with occlusion of the left internal carotid artery with distal cavernous reconstitution. Consult to [facility] neurology for evaluation 01/07/2024: Will obtain a carotid ultrasound tomorrow for better characterization of the CTA findings, will discuss with vascular surgery 01/08/2024: Left carotid ultrasound demonstrates less than 50% occlusion on the right with a complete occlusion on the left. Continue with statin. Appreciate neurology's assistance given the severity of her deficits will need SNF #2. CXR comments of possible Decompensated HFrEF versus possible multifocal pneumonia, complicated by recent valvular surgery intervention with mechanical falls, weakness, debility, adult failure to thrive with noted significant orthostatic vital sign assessment/orthostasis: Given her presentation more suspicious for possible infection than #1. Also, given significant orthostasis and no obvious distress or marked edema will defer diuresis, no recent shortness of breath, chest discomfort, weight gain or peripheral increased edema. BNP requested. Will maintain on telemetry monitoring, given #1 temporary permissive hypertension but will avoid any aggressive fluid administration until assure what process is ongoing, will request repeat echocardiogram as well as records from recent valve replacement to be certain things appear appropriate, will obtain full respiratory viral panel as well as procalcitonin, maintain on fall precautions, PT/OT/case management as noted above concurrently. 01/06/2024: Echo with an EF of 30% and severe aortic stenosis with a bioprosthetic valve on echo in September. Continue with Eliquis despite the acute CVA monitor for change in NIH will await neuroevaluation 01/08/2024: Awaiting echo today with bubble #3. Valvular heart disease with recent presumed possible TAVR with previous history of bioprosthetic aortic valve additionally: Patient with last echo in the system noted 09/22/2023 thus this is prior to most recent intervention with normal LV size, severe concentric LVH, LA mildly enlarged, LVEF 30%, moderate to severe global hypokinesis LV, mean aortic valve gradient 49 mmHg, severe aortic stenosis, bioprosthetic aortic valve present, compared to previous LV function reduced and aortic valve appears to be more stenosed. Encourage continued outpatient follow-up with cardiothoracic surgery, cardiology as previously arranged. Records requested to discern exact recent intervention although suspect related with aortic valve for repeat replacement. Repeat echocardiogram requested given presentation as noted. #4. Hypertension: Will temporally hold regimen given number 1 investigation per stroke protocol, as needed agents per stroke order set. 01/07/2024: Will reinstitute blood pressure medications #4. Hyperlipidemia: Per current list does not appear to be on any statin therapy, FLP in AM. 01/07/2024: Continue with statin therapy #5. PAF: We will continue home Eliquis regimen, temporarily holding metoprolol given permissive hypertension, add back once appropriate. 01/08/2024: Continue with Eliquis, CT scan did not demonstrate any head bleeds #6. Chronic Kidney Disease Stage IIIa per records: Admission BUN/Cr 34/1.48, GFR 36, baseline renal function primarily 1.3-1.6 but did vacillate and was noted to be on 12/18/creatinine 1.90, repeat BMP in AM. #7. Morbid Obesity: Weight loss and lifestyle changes encourage. #8. GERD with history of gastric ulcer: We will continue patient home PPI. DVT: Eliquis Charges/Coding Visit Charges Inpatient E&M: 58699 Subs Hosp L2
--- NOTE | 2024-01-08 11:00 | CASEMGMT ---
LEW WEISS Face to Face with daughter, Shama, for initial transition planning/care coordination assessment as patient is confused. LEW CM introduced self and role at [facility]. Daughter willing to participate in assessment and is able to answer all questions appropriately. Care providers, pharmacy, and demographics verified. Strata: 3 PCP: Kurt[facility] Specialists: Dez, company manager; [facility]acy[facility] Insurance: [employer] Prescription Benefit: yes Living Will/HPOA: yes, daughter Shama López LNOK: daughter, sons Living Arrangements: Patient lives with son in a first floor apartment with 1 step to enter. Patient was independent at home. Transportation: self, children DME/HHC: Patient has cane and grab bars at home. No previous SNF. Patient has had [facility] in the past. RN CM reviewed progress with therapy, SNF recommended for additional therapy, discussed with daughter. RN CM provided daughter SNF list to review with family and provide preferences, daughter voiced understanding. Daughter states she has no further needs or concerns at this time. CM to follow for discharge planning needs that may arise. Disposition Plan: SNF pending acceptance and precert. Allyssa JUNG, RN, CM
[2024-01-08] MEDS: Aspirin 81 MG TAB.CHEW PO (12:30)
[2024-01-08] MEDS: Furosemide 40 MG Tablet PO (12:30)
[2024-01-08] MEDS: Febuxostat 40 MG TABLET PO (12:30)
[2024-01-08] MEDS: Pantoprazole Sodium 40 MG Tablet PO (12:31)
[2024-01-08] MEDS: APIXABAN 5 MG TABLET PO ×2 (12:31→23:14)
[2024-01-08] MEDS: Ondansetron 4 MG/2 ML Vial IV (15:32)
--- NOTE | 2024-01-08 15:35 | CASEMGMT ---
Social Work SW met with pt's dgt and two sons to discuss discharge plan. They are agreeable that pt will need SNF (A list of SNF providers including quality and resource use data and consistent with the patient?s preferred geographic region, medical needs, and insurance network were provided from the [facility]Port Guide had been provided by RNCM). Family preferred providers are 1. [facility] 2. [facility] 3. [facility]. Referral sent to [facility]CU. SW will await determination of acceptance. Plan: TCU, pending acceptance JAQUAN Perez
[2024-01-08] MEDS: Atorvastatin Calcium 40 MG Tablet PO (23:14)
[2024-01-09] VITALS (7 sets, daily range): BP systolic 140–150; BP diastolic 74–91; PULSE 55–75; RESP 16–18; TEMP 36.6–37; O2SAT 94–98; BMI 44.1
[2024-01-09] MEDS: Pantoprazole Sodium 40 MG Tablet PO (10:11)
[2024-01-09] MEDS: Aspirin 81 MG TAB.CHEW PO (10:11)
[2024-01-09] MEDS: APIXABAN 5 MG TABLET PO ×2 (10:11→20:44)
[2024-01-09] MEDS: Furosemide 40 MG Tablet PO (10:12)
[2024-01-09] MEDS: Metoprolol Tartrate 25 MG Tablet 12.5 MG PO (10:12)
[2024-01-09] MEDS: Febuxostat 40 MG TABLET PO (10:12)
--- NOTE | 2024-01-09 10:12 | PCM.PN.HOSP ---
Subjective Subjective She is getting frustrated with the NIH's and so she show seems to not want a participate Objective Data Objective Data Vital Signs: Vital Signs Temp Pulse Resp BP Pulse Ox O2 Del Method O2 Flow Rate 98.3 F 75 18 142/91 H 98 Nasal Cannula 2 01/09/24 10:10 01/09/24 10:10 01/09/24 10:10 01/09/24 10:10 01/09/24 10:10 01/09/24 10:10 01/09/24 10:10 Oxygen Flow Rate (L/min) 2 Oxygen Delivery Method Nasal Cannula Weight: 241 lb 2.971 oz Body Mass Index (BMI) 44.1 Intake & Output: Intake and Output for Last 24 Hours 01/08/24 01/09/24 01/10/24 03:59 03:59 03:59 Intake Total 240 / 240 230 / 230 Output Total 625 / 625 250 / 250 Balance -385 / -385 -20 / -20 Lab / Micro Data 01/07/24 03:50 01/08/24 08:23 Micro: Microbiology 01/05/24 22:50 Mucosa - Nasopharyngeal Respiratory Panel (PCR) - Final 01/05/24 19:11 Mucosa - Nose SARS-CoV-2, Influenza & RSV (PCR) - Final Radiography Diagnostic Testing: Radiology Impression Echocardiogram 01/05/24 22:39 Interpretation Summary The study was technically difficult. Mildly dilated left ventricular cavity. Dyssynchronous LV wall motion. Estimated LVEF 30 to 35%. The left atrium is severely enlarged. Bioprosthetic aortic valve mean peak gradient 26.9 mmHg. Ordering Physician: Maribel Vizcarra Performed By: Fernando Carrasquillo and Student Physical Exam Narrative General: Arousable, disoriented, No apparent distress HEENT: Atraumatic, PERRLA, EOMI, Normocephalic Oral: Moist Mucosa Neck: Supple, No JVD Lungs: Clear to auscultation, Normal air movement, No rhonchi, No wheeze, No rales Cardiovascular: Irregular rate and rhythm, Normal S1, Normal S2, No murmurs Abdomen: Soft, Non Tender, Non-Distended, No Hepato-splenomegaly Extremities: No edema, Capillary Refill Less than 3 Seconds Skin: No rashes, No breakdown Musculoskeletal: No Tenderness to Palpation of Joints or Extremities Neurological: Significant neurological derangements, NIH this morning of 21 however it is difficult to discern whether this is due to actual physical issues versus mental health, she does not want to participate in the NIHs Psych/Mental Status: Flat Assessment & Plan Assessment/Plan (1) Altered mental status: PLAN: Plan #1. Acute aphasia concerning for TIA/CVA: Will admit to PCU, will obtain MRI Brain, ECHO repeat as noted with bubble study concurrently, PT/OT/Speech/Nutrition evaluation per protocol. Will allow permissive HTN temporarily, maintain on asa, will hold on statin as she does have underlying history but is not on statin but unclear reason why thus will attempt to investigate further, AM FLP, fall precautions. Mag, TSH, FLP, HgbA1c requested. Maintain on fall and aspiration precautions. Will request Neurology consultation. UA unremarkable. 01/06/2024: MRI positive for several acute strokes on the left with occlusion of the left internal carotid artery with distal cavernous reconstitution. Consult to [facility] neurology for evaluation 01/07/2024: Will obtain a carotid ultrasound tomorrow for better characterization of the CTA findings, will discuss with vascular surgery 01/08/2024: Left carotid ultrasound demonstrates less than 50% occlusion on the right with a complete occlusion on the left. Continue with statin. Appreciate neurology's assistance given the severity of her deficits will need SNF 01/09/2024: Continues to have significant deficits, will need placement. Neurology has signed off #2. CXR comments of possible Decompensated HFrEF versus possible multifocal pneumonia, complicated by recent valvular surgery intervention with mechanical falls, weakness, debility, adult failure to thrive with noted significant orthostatic vital sign assessment/orthostasis: Given her presentation more suspicious for possible infection than #1. Also, given significant orthostasis and no obvious distress or marked edema will defer diuresis, no recent shortness of breath, chest discomfort, weight gain or peripheral increased edema. BNP requested. Will maintain on telemetry monitoring, given #1 temporary permissive hypertension but will avoid any aggressive fluid administration until assure what process is ongoing, will request repeat echocardiogram as well as records from recent valve replacement to be certain things appear appropriate, will obtain full respiratory viral panel as well as procalcitonin, maintain on fall precautions, PT/OT/case management as noted above concurrently. 01/06/2024: Echo with an EF of 30% and severe aortic stenosis with a bioprosthetic valve on echo in September. Continue with Eliquis despite the acute CVA monitor for change in NIH will await neuroevaluation 01/08/2024: Awaiting echo today with bubble 01/09/2024: Echo with an EF of 30 to 35% #3. Valvular heart disease with recent presumed possible TAVR with previous history of bioprosthetic aortic valve additionally: Patient with last echo in the system noted 09/22/2023 thus this is prior to most recent intervention with normal LV size, severe concentric LVH, LA mildly enlarged, LVEF 30%, moderate to severe global hypokinesis LV, mean aortic valve gradient 49 mmHg, severe aortic stenosis, bioprosthetic aortic valve present, compared to previous LV function reduced and aortic valve appears to be more stenosed. Encourage continued outpatient follow-up with cardiothoracic surgery, cardiology as previously arranged. Records requested to discern exact recent intervention although suspect related with aortic valve for repeat replacement. Repeat echocardiogram requested given presentation as noted. #4. Hypertension: Will temporally hold regimen given number 1 investigation per stroke protocol, as needed agents per stroke order set. 01/07/2024: Will reinstitute blood pressure medications 01/09/2024: Blood pressures are staying in the 140s to 160s, will not lower further #4. Hyperlipidemia: Per current list does not appear to be on any statin therapy, FLP in AM. 01/07/2024: Continue with statin therapy #5. PAF: We will continue home Eliquis regimen, temporarily holding metoprolol given permissive hypertension, add back once appropriate. 01/08/2024: Continue with Eliquis, CT scan did not demonstrate any head bleeds #6. Chronic Kidney Disease Stage IIIa per records: Admission BUN/Cr 34/1.48, GFR 36, baseline renal function primarily 1.3-1.6 but did vacillate and was noted to be on 12/18/creatinine 1.90, repeat BMP in AM. #7. Morbid Obesity: Weight loss and lifestyle changes encourage. #8. GERD with history of gastric ulcer: We will continue patient home PPI. DVT: Eliquis Charges/Coding Visit Charges Inpatient E&M: 11682 Subs Hosp L2
--- NOTE | 2024-01-09 15:07 | CASEMGMT ---
Social Work Patients daughter notified that TCU is unable to accept patient and that a referral will be sent to [facility]. Daughter in agreement with same. Vanesa Alves, CONDUIT REAMER OPERATOR, [employer]
--- NOTE | 2024-01-09 15:13 | CASEMGMT ---
Addendum entered by Yari Rodríguez 01/09/24 16:15: [facility] has accepted. SW updated. Yari Rodríguez DC Planning Asst. Original Note: Discharge Planning Referral sent via [facility]port to [facility]. Yari Rodríguez DC Planning Asst.
[2024-01-09] MEDS: Atorvastatin Calcium 40 MG Tablet PO (20:42)
[2024-01-10] VITALS (7 sets, daily range): BP systolic 132–154; BP diastolic 55–80; PULSE 56–65; RESP 16–18; TEMP 36.7–37.1; O2SAT 92–96; BMI 44.1
[2024-01-10 06:27] LABS: Absolute Lymphocyte Count 1.48 X10^3/uL (0.83-4.51); Absolute Neutrophil Count 8.6 X10^3/uL (2.0-7.7); Basophil# 0.13 X10^3/uL; Basophil% 1.1 % (0-1); Eosinophil# 0.35 X10^3/uL; Eosinophils% 2.9 % (0-5); Hematocrit 46.4 % (37-47); Hemoglobin 15.5 g/dL (12.0-15.0); Lymphocyte # 1.48 X10^3/ul (0.83-4.51); Lymphocyte % 12.1 % (19-41); Mean Corp Hgb Conc 33.4 g/dL (32-36); Mean Corpuscular Hgb 32.4 pg (27.0-32.0); Mean Corpuscular Volume 97.1 fL (81-99); Mean Platelet Vol. 12.7 fl (6.2-12.0); Monocyte# 1.54 X10^3/uL; Monocyte% 12.6 % (0-10); NRBC Flagged by Analyzer 0 % (0-5); Neutrophil # 8.58 X10^3/uL (2.7-7.7); Neutrophil % 70.1 % (47-70); POSITIVE DIFFERENTIAL YES; Platelet Count 199 K/mm3 (150-450); RBC Distribution Width CV 13.1 % (11.6-14.6); RBC Distribution Width SD 46.5 fl (35.1-43.9); Red Blood Count 4.78 M/mm3 (4.2-5.4); White Blood Count 12.2 K/mm3 (4.4-11.0)
[2024-01-10 06:41] LABS: Anion Gap 7 (5-15); BUN 39 mg/dL (7-18); BUN/Creat Ratio 24.4 RATIO (10-20); Calcium,Total 9.5 mg/dL (8.5-10.1); Chloride 99 mmol/L (98-107); EST Glomerular Filtration Rate 33 mL/min (>60); Est Glom Filt Rate - Afr Amer 40 mL/min (>60); Estimated Creatinine Clearance 31.06 ml/min; Glucose 116 mg/dL (74-106); Potassium 4.4 mmol/L (3.5-5.1); Sodium Level 131 mmol/L (136-145)
[2024-01-10 07:06] LABS: Differential Indicated SCAN CRITERIA MET
[2024-01-10 08:22] LABS: Differential Comment SCANNED
[2024-01-10] MEDS: Metoprolol Tartrate 25 MG Tablet 12.5 MG PO (09:24)
[2024-01-10] MEDS: Furosemide 40 MG Tablet PO (09:26)
[2024-01-10] MEDS: Aspirin 81 MG TAB.CHEW PO (09:26)
[2024-01-10] MEDS: APIXABAN 5 MG TABLET PO (09:26)
[2024-01-10] MEDS: Pantoprazole Sodium 40 MG Tablet PO (09:27)
[2024-01-10] MEDS: Febuxostat 40 MG TABLET PO (09:27)
[2024-01-10] MEDS: 0.9% Saline Lock 10 ML Syringe IV (09:38)
--- NOTE | 2024-01-10 09:50 | CASEMGMT ---
SW asked [facility] to please start pre-cert. Plan: [facility] pending insurance approval. Yael VILLARREAL
--- NOTE | 2024-01-10 16:07 | CASEMGMT ---
Discharge Planning [facility] has obtained auth to admit. Yari Rodríguez DC Planning Asst.
--- NOTE | 2024-01-10 16:15 | TREXTCAR_ITS ---
Diet Diet Order/Speech Therapy: 01/06/24 09:12 Diet: Cardiac - Heart Healthy Food consistency:: Mechanical (Minced/Moist) Liquid Consistency:: Regular/Thin Dietary Modifications:: Sodium Restricted Type of Dietary Supplement:: Ensure Compact w/ meals Diet Comments: 1:1 supervision/assistance; Upright Position, small bite/sip, liquid wash Routine Orders/Code Status Routine Lab Work: CBC and BMP Code Status: Full Code Wound(s) forehead: Wound Type: Abrasion Therapies Physical Therapy: Eval and Treat Occupational Therapy: Eval and Treat Problem/Diagnosis (1) Altered mental status: Status: Acute Code(s): R41.82 - Altered mental status, unspecified Plan #1. Acute aphasia concerning for TIA/CVA: Will admit to PCU, will obtain MRI Brain, ECHO repeat as noted with bubble study concurrently, PT/OT/Speech/Nutrition evaluation per protocol. Will allow permissive HTN temporarily, maintain on asa, will hold on statin as she does have underlying history but is not on statin but unclear reason why thus will attempt to investigate further, AM FLP, fall precautions. Mag, TSH, FLP, HgbA1c requested. Maintain on fall and aspiration precautions. Will request Neurology consultation. UA unremarkable. 01/06/2024: MRI positive for several acute strokes on the left with occlusion of the left internal carotid artery with distal cavernous reconstitution. Consult to [facility] neurology for evaluation 01/07/2024: Will obtain a carotid ultrasound tomorrow for better characterization of the CTA findings, will discuss with vascular surgery 01/08/2024: Left carotid ultrasound demonstrates less than 50% occlusion on the right with a complete occlusion on the left. Continue with statin. Appreciate neurology's assistance given the severity of her deficits will need SNF 01/09/2024: Continues to have significant deficits, will need placement. Neurology has signed off #2. CXR comments of possible Decompensated HFrEF versus possible multifocal pneumonia, complicated by recent valvular surgery intervention with mechanical falls, weakness, debility, adult failure to thrive with noted significant orthostatic vital sign assessment/orthostasis: Given her presentation more suspicious for possible infection than #1. Also, given significant orthostasis and no obvious distress or marked edema will defer diuresis, no recent shortness of breath, chest discomfort, weight gain or peripheral increased edema. BNP requested. Will maintain on telemetry monitoring, given #1 temporary permissive hypertension but will avoid any aggressive fluid administration until assure what process is ongoing, will request repeat echocardiogram as well as records from recent valve replacement to be certain things appear appropriate, will obtain full respiratory viral panel as well as procalcitonin, maintain on fall precautions, PT/OT/case management as noted above concurrently. 01/06/2024: Echo with an EF of 30% and severe aortic stenosis with a bioprosth etic valve on echo in September. Continue with Eliquis despite the acute CVA monitor for change in NIH will await neuroevaluation 01/08/2024: Awaiting echo today with bubble 01/09/2024: Echo with an EF of 30 to 35% #3. Valvular heart disease with recent presumed possible TAVR with previous history of bioprosthetic aortic valve additionally: Patient with last echo in the system noted 09/22/2023 thus this is prior to most recent intervention with normal LV size, severe concentric LVH, LA mildly enlarged, LVEF 30%, moderate to severe global hypokinesis LV, mean aortic valve gradient 49 mmHg, severe aortic stenosis, bioprosthetic aortic valve present, compared to previous LV function reduced and aortic valve appears to be more stenosed. Encourage continued outpatient follow-up with cardiothoracic surgery, cardiology as previously arranged. Records requested to discern exact recent intervention although suspect related with aortic valve for repeat replacement. Repeat echocardiogram requested given presentation as noted. #4. Hypertension: Will temporally hold regimen given number 1 investigation per stroke protocol, as needed agents per stroke order set. 01/07/2024: Will reinstitute blood pressure medications 01/09/2024: Blood pressures are staying in the 140s to 160s, will not lower further #4. Hyperlipidemia: Per current list does not appear to be on any statin therapy, FLP in AM. 01/07/2024: Continue with statin therapy #5. PAF: We will continue home Eliquis regimen, temporarily holding metoprolol given permissive hypertension, add back once appropriate. 01/08/2024: Continue with Eliquis, CT scan did not demonstrate any head bleeds #6. Chronic Kidney Disease Stage IIIa per records: Admission BUN/Cr 34/1.48, GFR 36, baseline renal function primarily 1.3-1.6 but did vacillate and was noted to be on 12/18/creatinine 1.90, repeat BMP in AM. #7. Morbid Obesity: Weight loss and lifestyle changes encourage. #8. GERD with history of gastric ulcer: We will continue patient home PPI. DVT: Eliquis Allergies/Procedures Done in Hospital Allergies Iodinated Contrast Media Allergy (Intermediate, Verified 01/05/24 18:54) Hives hives, red face and itching STANLEY Inhibitors Adverse Reaction (Intermediate, Verified 11/08/23 09:28) Other dapagliflozin (From Farxiga) Adverse Reaction (Intermediate, Verified 11/08/23 09:28) cough sacubitril (From Entresto) Adverse Reaction (Intermediate, Verified 11/08/23 09:28) cough valsartan (From Entresto) Adverse Reaction (Intermediate, Verified 11/08/23 09:28) cough lisinopril Adverse Reaction (Verified 11/08/23 09:28) COUGH Procedures: 2-D Echocardiogram Type of Care/Length of Stay Estimated LOS: Convalescent Care Less Than 30 days Type of Care Needed: Skilled Rehab Potential: Poor Prognosis: Poor Additional Orders/Day of Discharge Day of Discharge: 01/10/24 Dietary and Speech Recommendations Dietitian Recommendations/Changes: Will continue cardiac/sodium-restricted diet with consistency/texture as per CIVIL STRUCTURAL ENGINEER. FR as needed per physician given history of CHF. Will ensure compact for now until PO established with meals, will d/c if oral intake adequate. Speech Linguistic Eval Summary: Seated upright in bed. BEST aphasia eval attempted but unable to participate. Informal cognitive-linguistic evaluation initiated this date - Unable to state name or answer any orientation questions. Verbal expression is marked by mildly breathy vocal quality w/ frequent perseveration on no , no, no, no and I don't know . Able to repeat ah following modeling w/ max cues. Attempted to repeat ooo w/ brief lip rounding w/out voicing appreciated before returning to perseverative no response (ooo) no . Pt was able to count from 1-5 in unison w/ this CIVIL STRUCTURAL ENGINEER w/ max visual and verbal cues, accurately producing two, three, four, five 2x in unison. Confrontation naming 0% Able to point to the printed words yes and no when named by this CIVIL STRUCTURAL ENGINEER, but was not inconsistent w/ pointing responses to questions. Verbal responses to yes/no ?s were all no , but the patient was able to nod her head yes to provide an appropriate response (while still perseverativng on no verbally). Able to touch her nose w/ hand over hand assist and make a fist following CIVIL STRUCTURAL ENGINEER model, although perseveration persisted w/ patient touching her nose w/ the fist. Family reports spontaneous verablizations in response to Hello and How are you? this morning. Pt was yawning frequently and required verbal/tactile cues to maintain alertness for participation in this evaluation. Severe expressive aphasia w/ comprehension > expression, suspicious for apraxia, given her difficulty w/ motor planning for ah , ah-ah-ah and oo . Discharge Plan Admission Admit Date/Time: 01/06/24 14:45 Attending Provider: Ricardo Viera Primary Care Provider: Scott Hull Chi Consulting Providers: Sudarshan Sandoval; Rosi Decker; Alla Dunlap; Carolina Dobbs; Micki Fair; Rommel Dobbins; Debbie Zhang; Flash Blackwell; Preet Clark; Griffin Simon; Amanda Bustamante; Eriberto Eddy; Lucy Muñoz; George Parker; Shikha Olsen; Earnest French; Tiffany Sharpe; Peña Gilmore; Penelope Jama; Shawn Agrawal; Maribel Vizcarra Discharge Orders/Prescriptions Prescriptions: New atorvastatin 40 mg Tablet 40 mg PO QHS Qty: 0 0RF Continued metoprolol tartrate 25 mg tablet 12.5 mg PO BID febuxostat 40 mg tablet 40 mg PO DAILY pantoprazole 40 mg tablet,delayed release (DR/EC) 40 mg PO DAILY dapagliflozin propanediol [Farxiga] 10 mg tablet 10 mg PO DAILY Qty: 90 3RF Eliquis 5 MG tablet 5 mg PO BID Held spironolactone 25 mg tablet 25 mg PO DAILY Qty: 90 3RF Hold Instructions: Resume on 01/12/24. furosemide [Lasix] 40 mg tablet 40 mg PO DAILY Qty: 30 11RF Hold Instructions: Resume on 01/12/24. Referrals / Follow Up: Scott Hull Chi, MD [Primary Care Provider] - Disposition Disposition (needs filled in before D/C Order can be placed): [facility]
--- NOTE | 2024-01-10 16:38 | PCM.DC.SUM ---
Providers Date of Admission: 01/06/24 Primary Care Physician: Dr. Scott Hull MD Consultations 01/05/24 22:39 Consult: Tele-Neurology Routine Consulting Provider: [facility] Reason for Consult: Acute Ischemic Stroke/TIA EMERGENT Consult: No MD Notified: Yes Date Notified: 01/05/24 Time Notified: 23:26 Method of Notification: Answering Service Nursing Unit Staff Notify [facility] of Tele-Neurology Consult: Yes Reason For Visit: TIA/CVA Diagnosis Discharge Diagnosis (1) Altered mental status: Status: Acute Code(s): R41.82 - Altered mental status, unspecified Plan #1. Acute aphasia concerning for TIA/CVA: Will admit to PCU, will obtain MRI Brain, ECHO repeat as noted with bubble study concurrently, PT/OT/Speech/Nutrition evaluation per protocol. Will allow permissive HTN temporarily, maintain on asa, will hold on statin as she does have underlying history but is not on statin but unclear reason why thus will attempt to investigate further, AM FLP, fall precautions. Mag, TSH, FLP, HgbA1c requested. Maintain on fall and aspiration precautions. Will request Neurology consultation. UA unremarkable. 01/06/2024: MRI positive for several acute strokes on the left with occlusion of the left internal carotid artery with distal cavernous reconstitution. Consult to [facility] neurology for evaluation 01/07/2024: Will obtain a carotid ultrasound tomorrow for better characterization of the CTA findings, will discuss with vascular surgery 01/08/2024: Left carotid ultrasound demonstrates less than 50% occlusion on the right with a complete occlusion on the left. Continue with statin. Appreciate neurology's assistance given the severity of her deficits will need SNF 01/09/2024: Continues to have significant deficits, will need placement. Neurology has signed off #2. CXR comments of possible Decompensated HFrEF versus possible multifocal pneumonia, complicated by recent valvular surgery intervention with mechanical falls, weakness, debility, adult failure to thrive with noted significant orthostatic vital sign assessment/orthostasis: Given her presentation more suspicious for possible infection than #1. Also, given significant orthostasis and no obvious distress or marked edema will defer diuresis, no recent shortness of breath, chest discomfort, weight gain or peripheral increased edema. BNP requested. Will maintain on telemetry monitoring, given #1 temporary permissive hypertension but will avoid any aggressive fluid administration until assure what process is ongoing, will request repeat echocardiogram as well as records from recent valve replacement to be certain things appear appropriate, will obtain full respiratory viral panel as well as procalcitonin, maintain on fall precautions, PT/OT/case management as noted above concurrently. 01/06/2024: Echo with an EF of 30% and severe aortic stenosis with a bioprosthetic valve on echo in September. Continue with Eliquis despite the acute CVA monitor for change in NIH will await neuroevaluation 01/08/2024: Awaiting echo today with bubble 01/09/2024: Echo with an EF of 30 to 35% #3. Valvular heart disease with recent presumed possible TAVR with previous history of bioprosthetic aortic valve additionally: Patient with last echo in the system noted 09/22/2023 thus this is prior to most recent intervention with normal LV size, severe concentric LVH, LA mildly enlarged, LVEF 30%, moderate to severe global hypokinesis LV, mean aortic valve gradient 49 mmHg, severe aortic stenosis, bioprosthetic aortic valve present, compared to previous LV function reduced and aortic valve appears to be more stenosed. Encourage continued outpatient follow-up with cardiothoracic surgery, cardiology as previously arranged. Records requested to discern exact recent intervention although suspect related with aortic valve for repeat replacement. Repeat echocardiogram requested given presentation as noted. #4. Hypertension: Will temporally hold regimen given number 1 investigation per stroke protocol, as needed agents per stroke order set. 01/07/2024: Will reinstitute blood pressure medications 01/09/2024: Blood pressures are staying in the 140s to 160s, will not lower further #4. Hyperlipidemia: Per current list does not appear to be on any statin therapy, FLP in AM. 01/07/2024: Continue with statin therapy #5. PAF: We will continue home Eliquis regimen, temporarily holding metoprolol given permissive hypertension, add back once appropriate. 01/08/2024: Continue with Eliquis, CT scan did not demonstrate any head bleeds #6. Chronic Kidney Disease Stage IIIa per records: Admission BUN/Cr 34/1.48, GFR 36, baseline renal function primarily 1.3-1.6 but did vacillate and was noted to be on 12/18/creatinine 1.90, repeat BMP in AM. #7. Morbid Obesity: Weight loss and lifestyle changes encourage. #8. GERD with history of gastric ulcer: We will continue patient home PPI. DVT: Eliquis Medications at Discharge Home Medications metoprolol tartrate 25 mg tablet 12.5 mg PO BID BLOOD PRESSURE 07/10/17 apixaban 5 mg tablet (Eliquis) 5 mg PO BID BLOOD THINNER 12/11/17 febuxostat 40 mg tablet 40 mg PO DAILY 02/02/21 pantoprazole 40 mg tablet,delayed release 40 mg PO DAILY 02/02/21 dapagliflozin propanediol 10 mg tablet (Farxiga) 10 mg PO DAILY #90 tabs 11/08/23 spironolactone 25 mg tablet 25 mg PO DAILY #90 tabs 11/08/23 furosemide 40 mg tablet (Lasix) 40 mg PO DAILY #30 tabs 11/10/23 atorvastatin 40 mg tablet 40 mg PO QHS #0 tabs 01/10/24 Hospital Course Operations None Procedures 2-D Echocardiogram Summary of Care Provided Minutes Spent on Discharge: 34 Hospital Course: Per HPI: The patient is an 83 y/o F w/ PMHx: Morbid obesity, HFrEF, Valvular Heart Disease, CKD stage IIIa, HTN, HLD, GERD, PAF, GERD w/ Hx Gastric ulcer who presents to the [facility] ED on 01/05/24 with history of unfortunately 2 mechanical falls on day of presentation and per significant mild confusion following these as well as EMS reporting that she was slow to respond to questions status post recent valve replacement approximately 1 week prior to current presentation with groin access reportedly with no recent chest pain or shortness of breath or any headaches but given this new status prompted ED evaluation to be cautious. From review of records patient did have cardiac catheterization 12/04/23 with evidence of 30% stenosis of the proximal and mid LAD with recommendation for medical therapy at that time as part of his evaluation prior to valvular intervention. Workup in the ED included T98.1, heart rate 49, BP 155/70, respiratory rate 18, 96% on room air, orthostatics notable for greater than a 20 point change in systolic with positional changes as well as significant change in heart rate, CBC with WBC 8.8, he will 15.2, platelet 187 without marked shift, coags with PT 18.9 otherwise not marked appearing, BMP with BUN/creatinine 34/1.48, GFR 36, glucose 128, lactic acid 1.8, troponin 24, urinalysis with urine protein 15, glucose of thousand, negative ketone, leukocyte esterase negative with no obvious evidence of UTI, chest x-ray with incomplete expansion of the lungs with patchy bilateral pulmonary opacities suggestive of pulmonary edema although cannot exclude multifocal pneumonia, CTA head and neck w/ severe calcific plaquing of the right carotid bulb creating greater than 70% stenosis, occluded left common carotid just 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 In the ED patient ministered diphenhydramine 50 mg IV x 1 as well as Solu-Medrol 40 mg IV x 1 in order to obtain CTA imaging. Hospital Course: 1. 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 She had an MRI which demonstrated multiple left-sided strokes and a CTA of the head and neck demonstrated a left carotid artery occlusion. Carotid Doppler was obtained which confirmed the left carotid artery occlusion however downgraded the right carotid artery stenosis seen on the CTA from 70% to less than 50%. She has not had any significant improvement in her stroke symptoms since admission. She is already on Eliquis and family confirms that she is not missing any doses and it is possible that she had a rupture in her left carotid artery plaques leading to stroke. She has not been having any heart failure or pneumonia like symptoms. I discussed with family the plan for discharge to SNF expressed understanding the risk and benefits of going to SNF and would like to go today. Of note during this admission she had a repeat echo with an EF of 30 to 35% which is baseline, negative for PFO. She does have a history of severe aortic stenosis with a bioprosthetic valve. Will continue with Eliquis and Lipitor on discharge we will hold off on aspirin. 2. Essential hypertension, hyperlipidemia, paroxysmal A-fib, chronic kidney disease stage IIIa, GERD with a history of gastric ulcer all chronic medical conditions which complicate her care. Her home medications were continued where appropriate. Of note on discharge her creatinine was slightly elevated to 1.6 which is not outside of the realm of her previous baselines. Will hold her Lasix and Aldactone for a couple of days Physical Exam Narrative General: Arousable, disoriented, No apparent distress HEENT: Atraumatic, PERRLA, EOMI, Normocephalic Oral: Moist Mucosa Neck: Supple, No JVD Lungs: Clear to auscultation, Normal air movement, No rhonchi, No wheeze, No rales Cardiovascular: Irregular rate and rhythm, Normal S1, Normal S2, No murmurs Abdomen: Soft, Non Tender, Non-Distended, No Hepato-splenomegaly Extremities: No edema, Capillary Refill Less than 3 Seconds Skin: No rashes, No breakdown Musculoskeletal: No Tenderness to Palpation of Joints or Extremities Neurological: Significant neurological derangements, NIH of 21 however it is difficult to discern whether this is due to actual physical issues versus mental health, she does not want to participate in the NIHs Psych/Mental Status: Flat Weight / BMI Weight Weight: 241 lb 6.499 oz Body Mass Index (BMI) 44.1 ABG / Lab / Microbiology Data 01/10/24 05:44 01/10/24 05:44 Laboratory: Laboratory Results - last 24 hr 01/10/24 05:44: WBC 12.2 H, RBC 4.78, Hgb 15.5 H, Hct 46.4, MCV 97.1, MCH 32.4 H, MCHC 33.4, RDW Std Deviation 46.5 H, RDW Coeff of [place] 13.1, Plt Count 199, MPV 12.7 H, Immature Gran % (Auto) 1.200 H, Neut % (Auto) 70.1 H, Lymph % (Auto) 12.1 L, [place] % (Auto) 12.6 H, Eos % (Auto) 2.9, Baso % (Auto) 1.1 H, Absolute Neuts (auto) 8.6 H, Absolute Lymphs (auto) 1.48, Nucleated RBC % 0, Differential Comment SCANNED, Diff Path Review July foll, Sodium 131 L, Potassium 4.4, Chloride 99, Carbon Dioxide 25.0, Anion Gap 7, BUN 39 H, Creatinine 1.60 H, Estim Creat Clear Calc 31.06, Est GFR (MDRD) Af Amer 40 L, Est GFR (MDRD) Non-Af 33 L, BUN/Creatinine Ratio 24.4 H, Glucose 116 H, Calcium 9.5 Microbiology: Microbiology 01/05/24 22:50 Mucosa - Nasopharyngeal Respiratory Panel (PCR) - Final 01/05/24 19:11 Mucosa - Nose SARS-CoV-2, Influenza & RSV (PCR) - Final Meaningful Use Info Meaningful Use Meaningful Use Diagnoses (Choose all that apply): None applicable Ischemic Stroke Statin Dosing Therapy Reference: STATIN DOSE THERAPY REFERENCE: * Patients > 75 years receive moderate or high dose statin therapy. * Patients 75 years or YOUNGER should receive HIGH intensity statin dose unless contraindicated. You will be required to document reason for non-treatment if statin daily dose does not meet guidelines. HIGH DOSE STATIN THERAPY DAILY Atorvastatin > than or = to 40 mg Rosuvastatin > than or = to 20 mg Amlodipine + Atorvastatin > than or = to 2.5/40 mg Ezetimibe + Simvastatin 10/80 mg Simvastatin 80mg Discharge Plan Admission Admit Date/Time: 01/06/24 14:45 Attending Provider: Ricardo Viera Primary Care Provider: Scott Hull Chi Consulting Providers: Sudarshan Sandoval; Rosi Decker; Alla Dunlap; Carolina Dobbs; Micki Fair; Rommel Dobbins; Debbie Zhang; Flash Blackwell; Preet Clark; Griffin Simon; Amanda Bustamante; Eriberto Eddy; Lucy Muñoz; George Parker; Shikha Olsen; Earnest French; Tiffany Sharpe; Peña Gilmore; Penelope Jama; Shawn Agrawal; Maribel Vizcarra Discharge Orders/Prescriptions Prescriptions: New atorvastatin 40 mg Tablet 40 mg PO QHS Qty: 0 0RF Continued metoprolol tartrate 25 mg tablet 12.5 mg PO BID febuxostat 40 mg tablet 40 mg PO DAILY pantoprazole 40 mg tablet,delayed release (DR/EC) 40 mg PO DAILY dapagliflozin propanediol [Farxiga] 10 mg tablet 10 mg PO DAILY Qty: 90 3RF Eliquis 5 MG tablet 5 mg PO BID Held spironolactone 25 mg tablet 25 mg PO DAILY Qty: 90 3RF Hold Instructions: Resume on 01/12/24. furosemide [Lasix] 40 mg tablet 40 mg PO DAILY Qty: 30 11RF Hold Instructions: Resume on 01/12/24. Referrals / Follow Up: Scott Hull Chi, MD [Primary Care Provider] - Disposition Disposition (needs filled in before D/C Order can be placed): Long-Term Facility Charges/Coding Visit Charges Inpatient E&M: 68449 Disch Hosp >30min
--- NOTE | 2024-01-10 16:45 | CASEMGMT ---
Social Work Convalescent exemption form completed via the [facility]. Copy made for [facility] Medical records. Plan: Short term convalescent stay, skilled at [facility]. Notifications to SNF/Patient/family as per Discharge Doubling Machine Operator. -DEBBIE Castellano
--- NOTE | 2024-01-10 16:49 | CASEMGMT ---
Discharge Planning Discharge orders and med list sent to [facility]. COLE (Nicole) completed [id number]. Nursing, pt, and her son updated on discharge. insole tape stitcher [facility] will schedule cot transport once med list is signed. Yari Rodríguez DC Planning Asst.
--- NOTE | 2024-01-10 18:03 | NURSING ---
This RN attemped to call report to [facility] x4 at this time. Placed on hold with no reanswer.
--- NOTE | 2024-01-10 19:55 | NURSING ---
Call placed to [facility]. No answer at 2 different extension to give report. Transport stated the would notify staff at [facility] that attempts were made and if information was needed they were to call [facility] PCU. IV removed, heart monitor off and pt transported to [facility] at this time.
--- NOTE | 2024-01-10 20:00 | NURSING ---
Attempted to call [facility] for report as nurse was unable to reach anyone earlier. NO answer, left message with call back number on answering machine if they have any questions.
[2024-01-11 09:45] LABS: Pathologist Review Reviewed
== END 2024-01-10 19:50 | disposition skilled nursing facility (03) | DRG 65 ==
LOC: ED 22:05 → PCU 22:07
PROVIDERS: Admitting Provider Family Medicine; Emergency Provider Emergency Medicine; PCP Family Medicine Geriatric Medicine; Visit Provider Family Medicine
DX: I63.232 Cerebral infarction due to unspecified occlusion or stenosis of left carotid arteries (principal); I13.0 Hypertensive heart and chronic kidney disease with heart failure and stage 1 through stage 4 chronic kidney disease, or unspecified chronic kidney disease; I50.20 Unspecified systolic (congestive) heart failure; Z68.41 Body mass index [BMI] 40.0-44.9, adult; R29.714 NIHSS score 14; N18.31 Chronic kidney disease, stage 3a; I35.0 Nonrheumatic aortic (valve) stenosis; I48.0 Paroxysmal atrial fibrillation; E66.01 Morbid (severe) obesity due to excess calories; K21.9 Gastro-esophageal reflux disease without esophagitis; E78.5 Hyperlipidemia, unspecified; M10.9 Gout, unspecified; I35.2 Nonrheumatic aortic (valve) stenosis with insufficiency; Z90.710 Acquired absence of both cervix and uterus; Z85.828 Personal history of other malignant neoplasm of skin; Z79.899 Other long term (current) drug therapy; Z79.01 Long term (current) use of anticoagulants; Z90.49 Acquired absence of other specified parts of digestive tract; Z95.3 Presence of xenogenic heart valve
CPT/HCPCS: 36415; 36600; 70450; 70496; 70498; 70551; 71045; 80048; 80053; 80061; 81001; 82140; 82803; 83036; 83605; 83735; 83880; 84145; 84443; 84484; 85025; 85610; 85730; 87631; 87633; 92507; 92523; 92526; 92610; 93005; 93306; 93880; 94762; 97110; 97162; 97166; 97530; 97535; 97802; 99285; P9612; Q9957; Q9967; A4216; C8929; J2405

== ENCOUNTER → 2024-02-23 | Outpatient (REF) | payer MEDICARE, SELFPAY ==
[2024-02-23 07:45] LABS: Absolute Lymphocyte Count 1.23 X10^3/uL (0.83-4.51); Absolute Neutrophil Count 5.4 X10^3/uL (2.0-7.7); Basophil% 1.2 % (0-1); Eosinophil# 0.13 X10^3/uL; Eosinophils% 1.6 % (0-5); Hemoglobin 13.3 g/dL (12.0-15.0); Lymphocyte # 1.23 X10^3/ul (0.83-4.51); Lymphocyte % 15.3 % (19-41); Mean Corp Hgb Conc 33.3 g/dL (32-36); Mean Corpuscular Volume 96.4 fL (81-99); Mean Platelet Vol. 12.7 fl (6.2-12.0); Monocyte# 1.11 X10^3/uL; Monocyte% 13.8 % (0-10); NRBC Flagged by Analyzer 0 % (0-5); Neutrophil # 5.39 X10^3/uL (2.7-7.7); Neutrophil % 67.4 % (47-70); Platelet Count 236 K/mm3 (150-450); RBC Distribution Width CV 13.7 % (11.6-14.6); RBC Distribution Width SD 48.6 fl (35.1-43.9); Red Blood Count 4.15 M/mm3 (4.2-5.4)
[2024-02-23 08:00] LABS: Anion Gap 9 (5-15); BUN 36 mg/dL (7-18); BUN/Creat Ratio 19.3 RATIO (10-20); Calcium,Total 9.4 mg/dL (8.5-10.1); Chloride 101 mmol/L (98-107); Creatinine, Serum 1.87 mg/dL (0.55-1.02); EST Glomerular Filtration Rate 27 mL/min (>60); Est Glom Filt Rate - Afr Amer 33 mL/min (>60); Glucose 91 mg/dL (74-106); Potassium 5.1 mmol/L (3.5-5.1); Sodium Level 133 mmol/L (136-145)
== END ==
LOC: OLS.WHLEAS 05:00
PROVIDERS: PCP Family Medicine Geriatric Medicine; Visit Provider Internal Medicine
DX: R48.8 Other symbolic dysfunctions (principal); I69.820 Aphasia following other cerebrovascular disease; I69.398 Other sequelae of cerebral infarction; I69.391 Dysphagia following cerebral infarction
CPT/HCPCS: 36415; 80048; 85025

== ENCOUNTER → 2024-03-01 | Outpatient (REF) | payer MEDICARE, SELFPAY ==
[2024-03-01 06:21] LABS: Absolute Lymphocyte Count 1.56 X10^3/uL (0.83-4.51); Absolute Neutrophil Count 5.1 X10^3/uL (2.0-7.7); Basophil# 0.13 X10^3/uL; Basophil% 1.6 % (0-1); Eosinophil# 0.26 X10^3/uL; Eosinophils% 3.2 % (0-5); Hematocrit 37.7 % (37-47); Hemoglobin 12.6 g/dL (12.0-15.0); Lymphocyte # 1.56 X10^3/ul (0.83-4.51); Mean Corp Hgb Conc 33.4 g/dL (32-36); Mean Corpuscular Hgb 32.1 pg (27.0-32.0); Mean Corpuscular Volume 96.2 fL (81-99); Monocyte# 1.06 X10^3/uL; Monocyte% 12.9 % (0-10); NRBC Flagged by Analyzer 0 % (0-5); Neutrophil # 5.12 X10^3/uL (2.7-7.7); Neutrophil % 62.1 % (47-70); Platelet Count 212 K/mm3 (150-450); RBC Distribution Width SD 49.1 fl (35.1-43.9); Red Blood Count 3.92 M/mm3 (4.2-5.4); White Blood Count 8.2 K/mm3 (4.4-11.0)
[2024-03-01 06:37] LABS: Anion Gap 8 (5-15); BUN 32 mg/dL (7-18); BUN/Creat Ratio 15.9 RATIO (10-20); Calcium,Total 9.6 mg/dL (8.5-10.1); Chloride 101 mmol/L (98-107); Creatinine, Serum 2.01 mg/dL (0.55-1.02); EST Glomerular Filtration Rate 25 mL/min (>60); Est Glom Filt Rate - Afr Amer 30 mL/min (>60); Glucose 101 mg/dL (74-106); Potassium 4.1 mmol/L (3.5-5.1); Sodium Level 136 mmol/L (136-145)
== END ==
LOC: OLS.WHLEAS 05:00
PROVIDERS: PCP Family Medicine Geriatric Medicine; Visit Provider Internal Medicine
DX: R48.8 Other symbolic dysfunctions (principal)
CPT/HCPCS: 36415; 80048; 85025

== ENCOUNTER → 2024-03-08 04:00 | Outpatient (REF) | payer MEDICARE, SELFPAY ==
[2024-03-08 08:08] LABS: Absolute Lymphocyte Count 1.69 X10^3/uL (0.83-4.51); Absolute Neutrophil Count 5.5 X10^3/uL (2.0-7.7); Basophil# 0.11 X10^3/uL; Basophil% 1.3 % (0-1); Eosinophil# 0.31 X10^3/uL; Eosinophils% 3.6 % (0-5); Hematocrit 39.8 % (37-47); Hemoglobin 13.1 g/dL (12.0-15.0); Lymphocyte # 1.69 X10^3/ul (0.83-4.51); Lymphocyte % 19.6 % (19-41); Mean Corp Hgb Conc 32.9 g/dL (32-36); Mean Corpuscular Volume 97.3 fL (81-99); Mean Platelet Vol. 11.9 fl (6.2-12.0); Monocyte# 0.94 X10^3/uL; Monocyte% 10.9 % (0-10); NRBC Flagged by Analyzer 0 % (0-5); Neutrophil # 5.48 X10^3/uL (2.7-7.7); Neutrophil % 63.3 % (47-70); Platelet Count 232 K/mm3 (150-450); RBC Distribution Width CV 14.1 % (11.6-14.6); RBC Distribution Width SD 50.5 fl (35.1-43.9); Red Blood Count 4.09 M/mm3 (4.2-5.4); White Blood Count 8.6 K/mm3 (4.4-11.0)
[2024-03-08 08:41] LABS: Anion Gap 9 (5-15); BUN 24 mg/dL (7-18); BUN/Creat Ratio 13.4 RATIO (10-20); Calcium,Total 9.6 mg/dL (8.5-10.1); Chloride 98 mmol/L (98-107); Creatinine, Serum 1.79 mg/dL (0.55-1.02); EST Glomerular Filtration Rate 29 mL/min (>60); Est Glom Filt Rate - Afr Amer 35 mL/min (>60); Glucose 82 mg/dL (74-106); Potassium 4.1 mmol/L (3.5-5.1); Sodium Level 134 mmol/L (136-145)
== END ==
LOC: OLS.WHLEAS 04:00
PROVIDERS: PCP Family Medicine Geriatric Medicine; Referring Provider Internal Medicine; Visit Provider Internal Medicine
DX: R48.8 Other symbolic dysfunctions (principal)
CPT/HCPCS: 36415; 80048; 85025

== ENCOUNTER → 2024-03-15 14:14 | Outpatient (REF) | payer MEDICARE, SELFPAY ==
[2024-03-15 14:23] LABS: Color, Urine Straw (Yellow); Glucose, Dipstick 250 mg/dl (Normal); Ketone-Dipstick Negative (Negative); Leukocyte Esterase-Dipstick 500 /ul (Negative); Nitrite-Dipstick Negative (Negative); Occult Blood-Urine 250 /ul (Negative); Protein-Dipstick 100 mg/dl (Negative); Specific Gravity, Urine 1.015 (1.002-1.030); Urine Bilirubin Dipstick Negative (Negative); Urine Clarity Cloudy (Clear); Urine Urobilinogen Normal (Normal)
== END ==
LOC: OLS.WHLEAS 14:14
PROVIDERS: PCP Family Medicine Geriatric Medicine; Visit Provider Internal Medicine
DX: N39.0 Urinary tract infection, site not specified (principal)
CPT/HCPCS: 81002; 87077; 87086; 87088; 87186

== ENCOUNTER → 2024-04-09 | Outpatient (REF) | payer MEDICARE, SELFPAY ==
[2024-04-09 08:16] LABS: Absolute Lymphocyte Count 1.63 X10^3/uL (0.83-4.51); Basophil% 1.3 % (0-1); Eosinophil# 0.19 X10^3/uL; Eosinophils% 2.4 % (0-5); Hematocrit 40.5 % (37-47); Lymphocyte # 1.63 X10^3/ul (0.83-4.51); Lymphocyte % 20.7 % (19-41); Mean Corp Hgb Conc 32.1 g/dL (32-36); Mean Corpuscular Hgb 31.6 pg (27.0-32.0); Mean Corpuscular Volume 98.5 fL (81-99); Mean Platelet Vol. 12.2 fl (6.2-12.0); Monocyte# 0.86 X10^3/uL; Monocyte% 10.9 % (0-10); NRBC Flagged by Analyzer 0 % (0-5); Neutrophil # 5.04 X10^3/uL (2.7-7.7); Neutrophil % 64.1 % (47-70); Platelet Count 215 K/mm3 (150-450); RBC Distribution Width CV 13.6 % (11.6-14.6); RBC Distribution Width SD 49.9 fl (35.1-43.9); Red Blood Count 4.11 M/mm3 (4.2-5.4); White Blood Count 7.9 K/mm3 (4.4-11.0)
[2024-04-09 08:30] LABS: Anion Gap 6 (5-15); BUN 20 mg/dL (7-18); BUN/Creat Ratio 11.4 RATIO (10-20); Calcium,Total 9.8 mg/dL (8.5-10.1); Chloride 100 mmol/L (98-107); Creatinine, Serum 1.75 mg/dL (0.55-1.02); EST Glomerular Filtration Rate 30 mL/min (>60); Est Glom Filt Rate - Afr Amer 36 mL/min (>60); Glucose 86 mg/dL (74-106); Potassium 4.2 mmol/L (3.5-5.1); Sodium Level 137 mmol/L (136-145)
== END ==
LOC: OLS.WHLEAS 05:00
PROVIDERS: PCP Family Medicine Geriatric Medicine; Visit Provider Internal Medicine
DX: R48.8 Other symbolic dysfunctions (principal); I63.542 Cerebral infarction due to unspecified occlusion or stenosis of left cerebellar artery; I69.320 Aphasia following cerebral infarction; I69.351 Hemiplegia and hemiparesis following cerebral infarction affecting right dominant side
CPT/HCPCS: 36415; 80048; 85025

== ENCOUNTER → 2024-05-07 05:00 | Outpatient (REF) | payer MEDICARE, SELFPAY ==
[2024-05-07 08:07] LABS: Absolute Neutrophil Count 5.1 X10^3/uL (2.0-7.7); Basophil# 0.07 X10^3/uL; Eosinophils% 2.7 % (0-5); Hematocrit 41.3 % (37-47); Hemoglobin 13.4 g/dL (12.0-15.0); Lymphocyte % 19.1 % (19-41); Mean Corp Hgb Conc 32.4 g/dL (32-36); Mean Corpuscular Volume 98.6 fL (81-99); Mean Platelet Vol. 12.6 fl (6.2-12.0); Monocyte# 0.54 X10^3/uL; Monocyte% 7.4 % (0-10); NRBC Flagged by Analyzer 0 % (0-5); Neutrophil # 5.07 X10^3/uL (2.7-7.7); Neutrophil % 69.1 % (47-70); Platelet Count 194 K/mm3 (150-450); RBC Distribution Width CV 13.5 % (11.6-14.6); RBC Distribution Width SD 48.3 fl (35.1-43.9); Red Blood Count 4.19 M/mm3 (4.2-5.4); White Blood Count 7.3 K/mm3 (4.4-11.0)
[2024-05-07 08:14] LABS: Anion Gap 10 (5-15); BUN 29 mg/dL (7-18); BUN/Creat Ratio 13.9 RATIO (10-20); Calcium,Total 9.3 mg/dL (8.5-10.1); Chloride 101 mmol/L (98-107); Creatinine, Serum 2.08 mg/dL (0.55-1.02); EST Glomerular Filtration Rate 24 mL/min (>60); Est Glom Filt Rate - Afr Amer 29 mL/min (>60); Glucose 122 mg/dL (74-106); Potassium 3.6 mmol/L (3.5-5.1); Sodium Level 139 mmol/L (136-145)
== END ==
LOC: OLS.WHLEAS 05:00
PROVIDERS: PCP Family Medicine Geriatric Medicine; Visit Provider Internal Medicine
DX: I63.542 Cerebral infarction due to unspecified occlusion or stenosis of left cerebellar artery (principal); I69.320 Aphasia following cerebral infarction; I69.351 Hemiplegia and hemiparesis following cerebral infarction affecting right dominant side; R48.8 Other symbolic dysfunctions
CPT/HCPCS: 36415; 80048; 85025

== ENCOUNTER → 2024-06-04 | Outpatient (REF) | payer MEDICARE, SELFPAY ==
[2024-06-04 08:12] LABS: Absolute Lymphocyte Count 1.61 X10^3/uL (0.83-4.51); Absolute Neutrophil Count 5.3 X10^3/uL (2.0-7.7); Basophil# 0.09 X10^3/uL; Basophil% 1.1 % (0-1); Eosinophil# 0.18 X10^3/uL; Eosinophils% 2.2 % (0-5); Hematocrit 43.1 % (37-47); Hemoglobin 14.2 g/dL (12.0-15.0); Lymphocyte # 1.61 X10^3/ul (0.83-4.51); Lymphocyte % 19.9 % (19-41); Mean Corp Hgb Conc 32.9 g/dL (32-36); Mean Corpuscular Hgb 31.9 pg (27.0-32.0); Mean Corpuscular Volume 96.9 fL (81-99); Mean Platelet Vol. 12.3 fl (6.2-12.0); Monocyte# 0.84 X10^3/uL; Monocyte% 10.4 % (0-10); NRBC Flagged by Analyzer 0 % (0-5); Neutrophil # 5.32 X10^3/uL (2.7-7.7); Neutrophil % 65.8 % (47-70); Platelet Count 216 K/mm3 (150-450); RBC Distribution Width CV 13.2 % (11.6-14.6); RBC Distribution Width SD 46.8 fl (35.1-43.9); Red Blood Count 4.45 M/mm3 (4.2-5.4); White Blood Count 8.1 K/mm3 (4.4-11.0)
[2024-06-04 08:29] LABS: Anion Gap 13 (5-15); BUN 28 mg/dL (4-19); Calcium,Total 9.5 mg/dL (7.6-11.0); Carbon Dioxide 26.2 mmol/L (21.0-32.0); Chloride 99 mmol/L (98-108); Creatinine, Serum 1.74 mg/dL (0.70-1.20); EST Glomerular Filtration Rate 29 (>60); Glucose 91 mg/dL (70-99); Potassium 4.5 mmol/L (3.3-5.1); Sodium Level 138 mmol/L (133-145)
== END ==
LOC: OLS.WHLEAS 05:00
PROVIDERS: PCP Family Medicine Geriatric Medicine; Visit Provider Internal Medicine
DX: R48.8 Other symbolic dysfunctions (principal); I63.542 Cerebral infarction due to unspecified occlusion or stenosis of left cerebellar artery; I69.321 Dysphasia following cerebral infarction; I69.351 Hemiplegia and hemiparesis following cerebral infarction affecting right dominant side
CPT/HCPCS: 36415; 80048; 85025

== ENCOUNTER → 2024-06-18 | Outpatient (REF) | payer MEDICARE, SELFPAY ==
[2024-06-18 09:29] LABS: Vitamin D,25 Hydroxy 23.4 ng/mL (30-100)
== END ==
LOC: OLS.WHLEAS 05:00
PROVIDERS: PCP Family Medicine Geriatric Medicine; Visit Provider Internal Medicine
DX: E55.9 Vitamin D deficiency, unspecified (principal)
CPT/HCPCS: 36415; 82306

== ENCOUNTER → 2024-07-02 | Outpatient (REF) | payer MEDICARE, SELFPAY ==
[2024-07-02 08:17] LABS: Absolute Lymphocyte Count 1.69 X10^3/uL (0.83-4.51); Absolute Neutrophil Count 4.5 X10^3/uL (2.0-7.7); Basophil# 0.07 X10^3/uL; Eosinophil# 0.12 X10^3/uL; Eosinophils% 1.7 % (0-5); Hematocrit 41.2 % (37-47); Hemoglobin 13.8 g/dL (12.0-15.0); Lymphocyte # 1.69 X10^3/ul (0.83-4.51); Lymphocyte % 23.8 % (19-41); Mean Corp Hgb Conc 33.5 g/dL (32-36); Mean Corpuscular Hgb 32.1 pg (27.0-32.0); Mean Corpuscular Volume 95.8 fL (81-99); Mean Platelet Vol. 12.6 fl (6.2-12.0); Monocyte% 9.8 % (0-10); NRBC Flagged by Analyzer 0 % (0-5); Neutrophil # 4.49 X10^3/uL (2.7-7.7); Neutrophil % 63.1 % (47-70); Platelet Count 210 K/mm3 (150-450); RBC Distribution Width CV 13.5 % (11.6-14.6); RBC Distribution Width SD 47.8 fl (35.1-43.9); White Blood Count 7.1 K/mm3 (4.4-11.0)
[2024-07-02 08:45] LABS: Anion Gap 13 (5-15); BUN 30 mg/dL (4-19); BUN/Creat Ratio 16.6 RATIO (10-20); Calcium,Total 9.5 mg/dL (7.6-11.0); Chloride 99 mmol/L (98-108); Creatinine, Serum 1.78 mg/dL (0.70-1.20); EST Glomerular Filtration Rate 28 (>60); Glucose 100 mg/dL (70-99); Potassium 4.4 mmol/L (3.3-5.1); Sodium Level 138 mmol/L (133-145)
== END ==
LOC: OLS.WHLEAS 05:00
PROVIDERS: PCP Family Medicine Geriatric Medicine; Visit Provider Internal Medicine
DX: R48.8 Other symbolic dysfunctions (principal); I69.320 Aphasia following cerebral infarction; I69.351 Hemiplegia and hemiparesis following cerebral infarction affecting right dominant side
CPT/HCPCS: 36415; 80048; 85025

== ENCOUNTER → 2024-07-15 | Outpatient (REF) | payer MEDICARE, SELFPAY ==
[2024-07-15 09:49] LABS: Hemoglobin A1c 5.5 % (<=5.6)
[2024-07-15 09:53] LABS: AST(SGOT) 19 U/L (<=31); Alanine Aminotransfer ALT/SGPT 7 U/L (<=34); Albumin, Serum 3.4 g/dL (3.4-4.8); Alkaline Phosphatase 67 U/L (35-104); Bilirubin, Direct 0.26 mg/dL (0.00-0.30); Cholesterol 142 mg/dL (<=200); Globulin 3.2 g/dL (2.2-4.2); High Density Lipoprotein 36 mg/dL; Low Density Lipoprotein Calc. 86 mg/dL; Protein, Total 6.7 g/dL (5.9-8.4); Total Bilirubin 0.62 mg/dL (0.00-1.30); Triglycerides 101 mg/dL; Very Low Density Lipoprotein 20 mg/dL (5-40); cholesterol:hdl ratio screen 3.91
== END ==
LOC: OLS.WHLEAS 04:00
PROVIDERS: PCP Family Medicine Geriatric Medicine; Referring Provider Internal Medicine; Visit Provider Internal Medicine
DX: N18.31 Chronic kidney disease, stage 3a (principal); I12.9 Hypertensive chronic kidney disease with stage 1 through stage 4 chronic kidney disease, or unspecified chronic kidney disease; Z79.899 Other long term (current) drug therapy
CPT/HCPCS: 36415; 80061; 80076; 83036

== ENCOUNTER → 2024-07-30 | Outpatient (REF) | payer MEDICARE, SELFPAY ==
[2024-07-30 08:00] LABS: Absolute Lymphocyte Count 1.85 X10^3/uL (0.83-4.51); Absolute Neutrophil Count 3.8 X10^3/uL (2.0-7.7); Basophil# 0.07 X10^3/uL; Basophil% 1.1 % (0-1); Eosinophil# 0.12 X10^3/uL; Eosinophils% 1.8 % (0-5); Hematocrit 41.4 % (37-47); Hemoglobin 13.5 g/dL (12.0-15.0); Lymphocyte # 1.85 X10^3/ul (0.83-4.51); Lymphocyte % 28.5 % (19-41); Mean Corp Hgb Conc 32.6 g/dL (32-36); Mean Corpuscular Hgb 33.5 pg (27.0-32.0); Mean Corpuscular Volume 102.7 fL (81-99); Mean Platelet Vol. 11.8 fl (6.2-12.0); Monocyte% 9.2 % (0-10); NRBC Flagged by Analyzer 0 % (0-5); Neutrophil # 3.81 X10^3/uL (2.7-7.7); Neutrophil % 58.6 % (47-70); Platelet Count 167 K/mm3 (150-450); RBC Distribution Width CV 14.2 % (11.6-14.6); RBC Distribution Width SD 52.9 fl (35.1-43.9); Red Blood Count 4.03 M/mm3 (4.2-5.4); White Blood Count 6.5 K/mm3 (4.4-11.0)
[2024-07-30 08:26] LABS: Anion Gap 12 (5-15); BUN 28 mg/dL (4-19); BUN/Creat Ratio 14.9 RATIO (10-20); Calcium,Total 9.4 mg/dL (7.6-11.0); Carbon Dioxide 26.5 mmol/L (21.0-32.0); Chloride 100 mmol/L (98-108); Creatinine, Serum 1.87 mg/dL (0.70-1.20); EST Glomerular Filtration Rate 26 (>60); Glucose 89 mg/dL (70-99); Potassium 4.3 mmol/L (3.3-5.1); Sodium Level 138 mmol/L (133-145)
== END ==
LOC: OLS.WHLEAS 05:00
PROVIDERS: PCP Family Medicine Geriatric Medicine; Visit Provider Internal Medicine
DX: R48.8 Other symbolic dysfunctions (principal); I69.320 Aphasia following cerebral infarction; I69.351 Hemiplegia and hemiparesis following cerebral infarction affecting right dominant side
CPT/HCPCS: 36415; 80048; 85025

== ENCOUNTER → 2024-08-14 05:00 | Outpatient (REF) | payer MEDICARE, SELFPAY ==
[2024-08-14 11:47] LABS: Vitamin D,25 Hydroxy 27.1 ng/mL (30-100)
== END ==
LOC: OLS.WHLEAS 05:00
PROVIDERS: PCP Family Medicine Geriatric Medicine; Visit Provider Internal Medicine
DX: E55.9 Vitamin D deficiency, unspecified (principal)
CPT/HCPCS: 36415; 82306

== ENCOUNTER → 2024-08-27 05:00 | Outpatient (REF) | payer MEDICARE, SELFPAY ==
--- OUTSIDE RECORDS SUMMARY | 2024-08-27 04:08 | XMS RPT_ITS | CCD ---
Author Organization [facility] CliniSyde Care Team Providers Care Assembly Line Upholsterer Name Role Phone SingerPaige N Unavailable Lucrecia Paige N Unavailable Lucrecia Paige N Unavailable Yari Hernandez RN Unavailable Unavailable Yari Hernandez RN Unavailable Unavailable Paige Singer Unavailable Shelly Ahuja Unavailable Unavailable SISI Gutierrez Michelle M Unavailable Yari Hernandez RN Unavailable Unavailable Kurtis GUNN, Alvarado Primary Care Provider HARJEET HUFFMAN Attending Unavailable HARJEET HUFFMAN Referring Unavailable KURTIS, SCOTT-CHI Primary Care Unavailable HARJEET HUFFMAN Admitting Unavailable HARJEET HUFFMAN Attending Unavailable KURTIS, SCOTT-CHI Primary Care Unavailable THADDEUS MCKEON Attending Unavailable KURTIS, SCOTT-CHI Primary Care Unavailable MÓNICA DAVID Attending Unavailable KURTIS, SCOTT-CHI Primary Care Unavailable HARJEET HUFFMAN Attending Unavailable KURTIS, SCOTT-CHI Primary Care Unavailable ARLENE VELEZ Attending Unavailable ARLENE VELEZ Referring Unavailable KURTIS, SCOTT-CHI Primary Care Unavailable JUAN REED Attending Unavailable KURTIS, SCOTT-CHI Primary Care Unavailable Dr. Scott Hull MD, Chi Primary Care Provider Sara Cormier Attending Provider Joe Sanchez MD Attending Provider UnavailJoe Rivera MD Referring Provider Unavailagustin Sanchez MD, Dr. Diaz Attending Provider Eriberto Lugo Attending Provider Kurtis MD, Dr. Scott Sabillon Primary Care Provider Daniel GUNN, Joe Attending Provider Unavailagustin Hull MD, Dr. Scott Sabillon Primary Care Provider Joe Sanchez MD Attending Provider Unavailagustin Sanchez MD, Dr. Diaz Attending Provider Kurtis, Scott Chi Primary Care Unavailable Bruce Bourne Attending Unavailable Kurtis, Scott Chi Primary Care Unavailable Oleghe OLS, Efewongbe Attending Unavailabl e Kurtis, Scott Chi Primary Care Unavailable Oleghe OLS, Efewongbe Attending Unavailabl e Kurtis, Scott Chi Primary Care Unavailable Oleghe OLS, Efewongbe Attending Unavailabl e Oleghe OLS, Efewongbe Attending Unavailabl e Kurtis, Scott Chi Primary Care Unavailable Oleghe OLS, Efewongbe Attending Unavailabl e Kurtis, Scott Chi Primary Care Unavailable Kurtis, Scott Chi Primary Care Unavailable Dez, Suzan Referring Unavailable Dez, Suzan Attending Unavailable Kurtis, Scott Chi Primary Care Unavailable Dez, Suzan Referring Unavailable Dez, Suzan Attending Unavailable Kurtis, Scott Chi Primary Care Unavailable Kurtis, Scott Chi Attending Unavailable Kurtis, Scott Chi Referring Unavailable Kurtis, Scott Chi Primary Care Unavailable Oleghe OLS, Efewongbe Attending Unavailabl e Oleghe OLS, Efewongbe Attending Unavailabl e Kurtis, Scott Chi Primary Care Unavailable Kurtis, Scott Chi Primary Care Unavailable Dez, Suzan Attending Unavailable Dez, Suzan Referring Unavailable Kurtis, Scott Chi Primary Care Unavailable Mónica David Referring Unavailable Mónica David Attending Unavailable Oleghe OLS, Efewongbe Attending Unavailabl e Kurtis, Scott Chi Primary Care Unavailable Kurtis, Scott Chi Primary Care Unavailable Oleghe OLS, Efewongbe Attending Unavailabl e Kurtis, Scott Chi Primary Care Unavailable Oleghe OLS, Efewongbe Attending Unavailabl e Kurtis, Scott Chi Primary Care Unavailable Oleghe OLS, Efewongbe Attending Unavailabl e Oleghe OLS, Efewongbe Referring Unavailabl e Oleghe OLS, Efewongbe Attending Unavailabl e Kurtis, Scott Chi Primary Care Unavailable Kurtis, Scott Chi Primary Care Unavailable Oleghe OLS, Efewongbe Attending Unavailabl e Oleghe OLS, Efewongbe Attending Unavailabl e Kurtis, Scott Chi Primary Care Unavailable Kurtis, Scott Chi Primary Care Unavailable Oleghe OLS, Efewongbe Attending Unavailabl e Maribel Vizcarra Admitting Unavailable Kurtis, Scott Chi Primary Care Unavailable Sudarshan Sandoval Consulting Unavailable Ricardo Viera Attending Unavailable Adeli, Amir Consulting Unavailable Hinduja, Alla Consulting Unavailable Rinku, Carolina Consulting Unavailable Zha, Micki Consulting Unavailable Mu, Rommel Consulting Unavailable Vicente, Debbie Consulting Unavailable Bittar, Flash Consulting Unavailable Preet Clark Consulting Unavailable Simon, Griffin Consulting Unavailable BeAngie whitet Consulting Unavailable Eriberto Eddy Consulting Unavailable Toni, Lucy Consulting Unavailable Ridha, Mohamed Consulting Unavailable Zaghlouleh, Mhd Walter Consulting UnavailHarjeet Garza Consulting Unavailable Sharpe, Rami Consulting Unavailable Deirdre, Peña Consulting Unavailable Wiley, Penelope Consulting Unavailable Hannawi, Yousef Consulting Unavailable Maribel Vizcarra Consulting Unavailable Oleghe OLS, Efewongbe Referring Unavailabl e Oleghe OLS, Efewongbe Attending Unavailabl e Kurtis, Scott Chi Primary Care Unavailable Kurtis, Scott Chi Primary Care Unavailable Sudarshan Sandoval Consulting Unavailable Ricardo Viera Attending Unavailable Maribel Vizcarra Admitting Unavailable Adeli, Amir Consulting Unavailable Hinduja, Alla Consulting Unavailable Rinku, Carolina Consulting Unavailable Zha, Micki Consulting Unavailable Mu, Rommel Consulting Unavailable Vicente, Debbie Consulting Unavailable Bittar, Flash Consulting Unavailable Preet Clark Consulting Unavailable Danna Simonrge Consulting Unavailable Holli Bustamantearet Consulting Unavailable Gusivet, Eriberto Consulting Unavailable Toni, Lucy Consulting Unavailable Ridha, Mohamed Consulting Unavailable Zaghlouleh, Mhd Walter Consulting UnavailHarjeet Garza Consulting Unavailable Sharpe, Rami Consulting Unavailable Deirdre, Peña Consulting Unavailable Wiley, Penelope Consulting Unavailable Hannawi, Yousef Consulting Unavailable Maribel Vizcarra Consulting Unavailable Ricardo Viera Consulting Unavailable Kurtis, Scott Chi Primary Care Unavailable Oleghe OLS, Efewongbe Attending Unavailabl e Kurtis, Scott Chi Primary Care Unavailable Oleghe, Efewongbe Attending Unavailable Kurtis, Scott Chi Primary Care Unavailable Opalton ANIMAL CRUELTY INVESTIGATION SUPERVISOR, Sara Attending Unavailable Kurtis, Scott Chi Primary Care Unavailable Tickton ANIMAL CRUELTY INVESTIGATION SUPERVISOR, Sara Attending Unavailable Kurtis, Scott Chi Primary Care Unavailable Tickton ANIMAL CRUELTY INVESTIGATION SUPERVISOR, Sara Attending Unavailable Kurtis, Scott Chi Primary Care Unavailable Tickton ANIMAL CRUELTY INVESTIGATION SUPERVISOR, Sara Attending Unavailable Kurtis, Scott Chi Primary Care Unavailable Oleghe, Efewongbe Attending Unavailable Kurtis, Scott Chi Primary Care Unavailable Eriberto Lugo Attending Unavailable White, Maribel L Consulting Unavailable White, Maribel L Admitting Unavailable Kurtis, Scott Chi Primary Care Unavailable White, Maribel L Attending Unavailable Kurtis, Scott Chi Primary Care Unavailable Dez, Suzan Attending Unavailable Mónica Sterling Attending Unavail able Kurtis, Scott Chi Referring Unavailable Kurtis, Scott Chi Primary Care Unavailable Kurtis, Scott Chi Primary Care Unavailable Kurtis, Scott Chi Referring Unavailable Dez, Suzan Attending Unavailable Oleghe, Efewongbe Attending Unavailable Kurtis, Scott Chi Primary Care Unavailable Kurtis, Scott Chi Primary Care Unavailable Kurtis, Scott Chi Referring Unavailable Mis Wagner Attending Unavailable Kurtis, Scott Chi Primary Care Unavailable Kurtis, Scott Chi Referring Unavailable Dez, Suzan Attending Unavailable Kurtis, Scott Chi Primary Care Unavailable James Flores Attending Unavailable Ricardo Viera Referring Unavailable Kurtis, Scott Chi Primary Care Unavailable Oleghe OLS Efewongbe Attending Unavailabl e Kurtis, Scott Chi Primary Care Unavailable Oleghe OLS Efewongbe Attending Unavailabl e Kurtis, Scott Chi Primary Care Unavailable Oleghe OLS Efewongbe Attending Unavailabl e Kurtis, Scott Chi Primary Care Unavailable Oleghe OLS, Efewongbe Attending Unavailabl e Kurtis, Scott Chi Primary Care Unavailable Kurtis, Scott Chi Referring Unavailable Dez, Suzan Attending Unavailable Kurtis, Scott Chi Primary Care Unavailable Kurtis, Scott Chi Attending Unavailable Kurtis, Scott Chi Referring Unavailable Oleghe OLS, Efewongbe Attending Unavailabl e Kurtis, Scott Chi Primary Care Unavailable Allergies Allergy Classification Reported Allergen(s) Allergy Type Date of Onset Reaction(s) Facility (20 sources) Angiotensin Converting Enzyme (Landon) Inhibitors; Translations: [LANDON Inhibitors] drug allergy 11-06-19 16 Other [facility] Work Phone: (8 sources) Lisinopril Drug Allergy 03-04-20 [facility] (17 sources) Lisinopril Propensity to adverse reactions 11-14-19 [facility] (17 sources) sacubitril Drug Allergy 11-14-19 [facility] (17 sources) Valsartan Propensity to adverse reactions 11-14-19 [facility] (14 sources) Iodinated Contrast Media Propensity to adverse reactions 12-12-19 [facility] (3 sources) dapagliflozin Drug Allergy 02-07-20 [facility] (3 sources) sacubitril Drug Allergy 02-07-20 [facility] (3 sources) Triiodobenzoic Acids Allergy to substance 02-07-20 [facility] Comment on above: hives, red face and itching (3 sources) valsartan Drug Allergy 02-07-20 [facility] (1 source) dapagliflozin Drug Allergy 02-07-20 [facility] (1 source) Lisinopril Drug Allergy 02-07-20 [facility] (1 source) sacubitril Drug Allergy 02-07-20 [facility] (1 source) valsartan Drug Allergy 02-07-20 [facility] (1 source) Iodinated Contrast Media Drug allergy (disorder) 02-07-20 [facility] Medications Current Medications Medication Drug Class(es) Dates Sig (Normalized) Sig (Original) apixaban 5 mg oral tablet (20 sources) Factor Xa Inhibitor Start: 09-07-2017 End: 12-26-2023 take 1 tablet by mouth twice daily Apixaban (Eliquis) 5 MG tablet Active 5 mg PO TWICE A DAY December 11, 2017 3:10pm atorvastatin 40 mg oral tablet (3 sources) HMG-CoA Reductase Inhibitor Start: 01-10-2024 take 1 tablet by mouth at bedtime Atorvastatin 40 mg Tablet Active 40 mg PO AT BEDTIME 0 January 10, 2024 12:00am dapagliflozin 10 mg oral tablet (20 sources) Sodium-Glucose Cotransporter 2 Inhibitor Start: 11-08-2023 End: 12-26-2023 take 1 tablet by mouth once daily Dapagliflozin Propanediol (Farxiga) 10 mg tablet Active 10 mg PO DAILY November 08, 2023 12:00am febuxostat 40 mg oral tablet (20 sources) Xanthine Oxidase Inhibitor Start: 02-02-2021 End: 12-26-2023 take 1 tablet by mouth once daily Febuxostat 40 mg tablet Active 40 mg PO DAILY February 02, 2021 1:00am 2 ml furosemide 10 mg/ml injection (20 sources) Loop Diuretic Start: 12-26-2023 40 mg, IntraVENous, Once, On Mon12/26/23 at 0845, For 1 dose Start: 11-08-2023 End: 12-26-2023 take 1 tablet by mouth once daily Furosemide (Lasix) 40 mg tablet Active 40 mg PO DAILY November 10, 2023 11:35am On Hold: Resume on 01/12/24. pantoprazole 40 mg delayed release oral tablet (20 sources) Proton Pump Inhibitor Start: 02-02-2021 End: 12-26-2023 take 1 tablet by mouth once daily Pantoprazole 40 mg tablet,delayed release (DR/EC) Active 40 mg PO DAILY February 02, 2021 1:00am Start: 11-06-2015 End: 11-10-2015 take 1 tablet by mouth twice daily PROTONIX 40 MG SOLR One tablet by mouth twice daily PANTOPRAZOLE SODIUM [id number] Gerald Barragan MD potassium chloride 20 meq extended release oral tablet (9 sources) Start: 02-07-2024 take 1 tablet by mouth once daily Potassium Chloride 20 mEq tablet extended release Active 20 meq PO daily February 07, 2024 1:00am Start: 10-06-2023 End: 11-08-2023 take 1 tablet by mouth once daily Potassium Chloride 20 mEq tablet,ER particles/crystals Discontinued 20 meq PO DAILY October 06, 2023 12:00am November 08, 2023 12:53pm End: 11-21-2023 take 1 tablet by mouth once daily potassium chloride CR (K-Tab) 20 MEQ ER tablet Take 20 mEq by mouth daily. Do not crush, chew, or split. 11/21/2023 Discontinued (Entered in error) sertraline 50 mg oral tablet (3 sources) Serotonin Reuptake Inhibitor Start: 02-07-2024 take 1 tablet by mouth once daily Sertraline 50 mg tablet Active 50 mg PO daily February 07, 2024 1:00am spironolactone 25 mg oral tablet (20 sources) Aldosterone Antagonist Start: 11-08-2023 End: 12-26-2023 take 1 tablet by mouth once daily Spironolactone 25 mg tablet Active 25 mg PO DAILY November 08, 2023 12:54pm On Hold: Resume on 01/12/24. Start: 10-06-2023 End: 11-08-2023 Spironolactone 25 mg tablet Discontinued 12.5 mg PO DAILY October 06, 2023 12:00am November 08, 2023 12:54pm Start: 05-01-2015 End: 05-02-2015 take 1 tablet by mouth once daily Spironolactone 25 MG tablet Discontinued 25 mg PO DAILY May 01, 2015 1:00am May 02, 2015 12:15pm Completed/Discontinued Medications Medication Drug Class(es) Dates Sig (Normalized) Sig (Original) acetaminophen 325 mg oral tablet (20 sources) Start: 12-25-2023 End: 12-26-2023 take 1 tablet by mouth every four hours as needed for pain Start: 09-20-2017 End: 10-06-2023 take 2 tablets by mouth every eight hours Acetaminophen 500 MG tablet Discontinued 1000 mg PO EVERY 8 HOURS December 27, 2017 12:00am October 06, 2023 8:37am Start: 09-20-2017 End: 12-27-2017 take 1000 mg by mouth every eight hours Acetaminophen Discontinued 1000 MG PO EVERY 8 HOURS December 11, 2017 3:10pm December 27, 2017 7:13am aspirin 81 mg delayed release oral tablet (12 sources) Platelet Aggregation Inhibitor, Nonsteroidal Anti-inflammatory Drug Start: 12-26-2023 End: 12-26-2023 take 81 mg by mouth once daily 81 mg, Oral, Daily, First dose on Mon12/26/23 at 0900, Do not crush, chew, or split. Start: 05-01-2015 End: 05-02-2015 take 1 tablet by mouth once daily Aspirin 325 MG tablet Discontinued 325 mg PO DAILY@0800 May 01, 2015 1:00am May 02, 2015 12:14pm celecoxib 200 mg oral capsule (15 sources) Nonsteroidal Anti-inflammatory Drug Start: 11-06-2015 End: 12-29-2016 take 1 tablet by mouth once daily CELEBREX 200 MG CAPS One tablet by mouth daily CELECOXIB [id number] Mónica Gutierrez PA-C diphenhydrAMINE hydrochloride 25 mg oral tablet (2 sources) Histamine-1 Receptor Antagonist Start: 12-25-2023 End: 12-25-2023 take 50 mg by mouth once 50 mg, Oral, Once, On Mon12/25/23 at 0730, For 1 dose, Preprocedure docusate sodium 50 mg / sennosides, long term 8.6 mg oral tablet (8 sources) Start: 12-27-2017 End: 10-06-2023 take 1 tablet by mouth twice daily as needed Sennosides-Docusate Sodium (Stool Softener-Stimulant Laxat) 1 TABLET tablet Discontinued 2 {tbl} PO TWICE A DAY December 27, 2017 12:00am October 06, 2023 8:38am Take until first bowel movement, then as needed famotidine 20 mg oral tablet (2 sources) Histamine-2 Receptor Antagonist Start: 12-25-2023 End: 12-25-2023 take 1 dose by mouth every hour 40 mg, Oral, Once, On Mon12/25/23 at 0730, For 1 dose, Preprocedure, One hour prior to procedure famotidine (Pepcid) 20 mg in sodium chloride (PF) 0.9 % 10 mL injection (1 source) Start: 12-12-2023 End: 12-12-2023 20 mg, IntraVENous, Administer over 2 Minutes, Once, On Mon12/12/23 at 1115, For 1 dose, IV Push over minimum of 2 minutes - Dilute with 10 mL NS hydroCHLOROthiazide 25 mg oral tablet (11 sources) Thiazide Diuretic Start: 02-02-2021 End: 11-21-2023 take 1 tablet by mouth once daily Hydrochlorothiazide 25 mg tablet Discontinued 25 mg PO DAILY February 02, 2021 1:00am November 08, 2023 12:52pm hydrocortisone 100 mg injection (3 sources) Corticosteroid Start: 12-12-2023 End: 12-12-2023 100 mg, IntraVENous, Once, On Mon12/12/23 at 1245, For 1 dose Start: 12-12-2023 End: 12-12-2023 100 mg, IntraVENous, Once, O n Mon12/12/23 at 1115, For 1 dose Start: 12-12-2023 End: 12-12-2023 Starting on Mon12/12/23 at 1 110, For 1 dose, Cheri Wong: crow stallings imiquimod 50 mg/ml topical cream (8 sources) Start: 02-02-2021 End: 03-04-2021 Imiquimod 5 % cream in packet Discontinued 4 mmol TOPICAL 5 times per week 30 42 February 02, 2021 1:00am March 15, 2021 1:00am March 04, 2021 3:01pm apply once daily Monday through Monday before bedtime 30 packets iopamidol (Isovue-370) 76 % injection 100 mL (2 sources) Start: 12-12-2023 End: 12-12-2023 take 100 mL intravenously once as needed 100 mL, IntraVENous, IMG once PRN, contrast, Starting on Mon12/12/23 at 1039, For 1 dose losartan potassium 100 mg oral tablet (20 sources) Angiotensin 2 Receptor Vaughn Start: 07-10-2017 End: 02-02-2021 take 0.5 tablet by mouth once daily Losartan 100 mg tablet Discontinued 100 mg PO DAILY July 10, 2017 1:53pm February 02, 2021 10:10am 100 mg PO 0.5 tablet daily Start: 07-10-2017 End: 07-10-2017 take 1 tablet by mouth once daily Losartan 100 mg tablet Discontinued 100 mg PO daily July 10, 2017 12:00am July 10, 2017 1:54pm Start: 05-01-2015 End: 07-10-2017 take 1 tablet by mouth once daily Losartan 25 MG tablet Discontinued 25 mg PO DAILY May 01, 2015 1:00am July 10, 2017 1:49pm meloxicam 15 mg oral tablet (8 sources) Nonsteroidal Anti-inflammatory Drug Start: 05-01-2015 End: 05-02-2015 take 1 tablet by mouth once daily Meloxicam 15 MG tablet Discontinued 15 mg PO DAILY May 01, 2015 1:00am May 02, 2015 12:14pm metoprolol tartrate 25 mg oral tablet (20 sources) beta-Adrenergic Vaughn Start: 12-25-2023 End: 12-26-2023 Start: 07-10-2017 Metoprolol Tar trate 25 mg tablet Active 12.5 mg PO TWICE A DAY July 10, 2017 12:00am Start: 07-10-2017 take 12.5 mg by mout h twice daily Metoprolol Tartrate Active 12.5 MG PO TWICE A DAY July 10, 2017 12:00am mupirocin 0.02 mg/mg topical ointment (2 sources) RNA Synthetase Inhibitor Antibacterial Start: 12-25-2023 End: 12-26-2023 1 Application, Nasal, 2 times daily, First dose on Mon12/25/23 at 1130, For 5 days, Recovery [facility] On Unit, Indications: MRSA Nasal Decolonization ondansetron 4 mg oral tablet (8 sources) Serotonin-3 Receptor Antagonist Start: 12-27-2017 End: 01-03-2018 take 1 tablet by mouth every eight hours as needed for nausea Ondansetron Hcl 4 MG tablet Discontinued 4 mg PO EVERY 8 HOURS NEEDED as needed for Nausea/Vomiting December 27, 2017 7:16am January 02, 2018 12:00am January 03, 2018 12:08am oxyCODONE hydrochloride 5 mg oral tablet (8 sources) Opioid Agonist Start: 12-27-2017 End: 01-03-2018 take 5-10 mg by mouth every four hours as needed for pain Oxycodone 5 MG tablet Discontinued 5 - 10 mg PO EVERY 4 HOURS NEEDED as needed for Mod-Severe Pain () December 27, 2017 12:00am January 02, 2018 12:00am January 03, 2018 12:08am perflutren protein A microsphere (Optison) 3 mL in sodium chloride (PF) 0.9 % 10 mL IV syringe (2 sources) Start: 12-25-2023 End: 12-26-2023 0-10 mL, IntraVENous, IMG once PRN, other, Suboptimal echo image, Starting on Mon12/25/23 at 1119, For 1 dose, CV Procedural Medications, Administer via slow IVP for suboptimal echocardiogram enhancement. May administer as divided doses to reach optimal image enhancement predniSONE (6 sources) Start: 12-25-2023 End: 12-25-2023 [...] On Mon12/12/23 at 0730, For 1 dose triamcinolone acetonide 40 mg/ml injectable suspension (2 sources) Corticosteroid Start: 07-05-2017 End: 07-05-2017 inject 4 mg by intramuscular injection once Kenalog (triamcinolone acetonide) 10 mg/mL suspension for injection Discontinued 4 MG IM ONCE 0.4 July 05, 2017 8:47am July 05, 2017 9:28am Start: 04-10-2017 End: 04-10-2017 inject 2 mg by intramuscular injection once Kenalog (triamcinolone acetonide) 10 mg/mL suspension for injection Discontinued 2 MG IM ONCE 0.2 April 10, 2017 12:54pm April 10, 2017 12:59pm Problems Active Problems Problem Classification Problem Date Documented Da te Episodic/Chronic Acute and unspecified renal failure (17 sources) Renal failure syndrome; Translations: [Unspecified kidney failure] Onset: 12-07-2023 12-07-2023 Chronic Acute cerebrovascular disease (3 sources) 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; Translations: [Cerebral infarction due to unspecified occlusion or stenosis of left carotid arteries] Onset: 03-27-2024 Chronic Cardiac dysrhythmias (20 sources) Atrial fibrillation; Translations: [Unspecified atrial fibrillation] Onset: 03-20-2017 12-28-2017 Chronic Chronic kidney disease (7 sources) Chronic kidney disease stage 3A ; Translations: [Stage 3a chronic kidney disease (HCC)] Onset: 01-03-2024 01-03-2024 Chronic Chronic kidney disease (3 sources) Chronic kidney disease; Translations: [Chronic kidney disease, stage 3a (HCC)] Onset: 01-03-2024 Congestive heart failure; nonhypertensive (17 sources) Left heart failure; Translations: [Left ventricular failure, unspecified] Onset: 11-22-2023 01-03-2024 Chronic Disorders of lipid metabolism (4 sources) Hyperlipidemia; Translations: [Hyperlipidemia, unspecified] Onset: 11-08-2023 10-06-2023 Chronic Essential hypertension (18 sources) Hypertensive disorder; Translations: [Essential (primary) hypertension] Onset: 11-06-2015 11-06-2015 Chronic Heart valve disorders (20 sources) Nonrheumatic aortic (valve) stenosis; Translations: [History of aortic valve replacement] Onset: 11-06-2015 11-06-2015 Chronic Comment on above: #25 [employer]onic Porcin e Valve 01/22/2013 @ [facility] per Dr. Rivero Late effects of cerebrovascular disease (7 sources) Aphasia following cerebral infarction; Translations: [Dysphagia following cerebral infarction] Onset: 03-27-2024 Chronic Nutritional deficiencies (1 source) Vitamin D deficiency, unspecified; Translations: [Vitamin D deficiency, unspecified] Onset: 07-16-2024 Chronic Occlusion or stenosis of precerebral arteries (3 sources) Carotid artery stenosis; Translations: [Occlusion and stenosis of unspecified carotid artery] 01-05-2024 Chronic Osteoarthritis (17 sources) Osteoarthritis of knee; Translations: [Arthritis] Onset: 04-07-2016 04-14-2016 Chronic Other aftercare (3 sources) Long-term current use of anticoagulant; Translations: [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) use of anticoagulants] 11-22-2023 Episodic Other and ill-defined heart disease (1 source) Left ventricular cardiac dysfunction; Translations: [Heart disease, unspecified] 12-05-2023 Chronic Other and ill-defined heart disease (3 sources) Left ventricular hypertrophy; Translations: [Cardiomegaly] 10-06-2023 Chronic Other and ill-defined heart disease (1 source) Cardiomegaly; Translations: [Cardiomegaly] Onset: 11-08-2023 Chronic Other gastrointestinal disorders (3 sources) Occult blood in stools; Translations: [Other fecal abnormalities] 01-18-2024 Episodic Other lower respiratory disease (9 sources) Dyspnea on exertion; Translations: [Other forms of dyspnea] Onset: 12-29-2016 12-29-2016 Episodic Other lower respiratory disease (3 sources) Dyspnea; Translations: [Shortness of breath] 11-09-2023 Episodic Other nervous system disorders (2 sources) Other symbolic dysfunctions; Translations: [Other symbolic dysfunctions] Onset: 03-27-2024 Episodic Other non-epithelial cancer of skin (8 sources) History of malignant neoplasm of skin; Translations: [Personal history of other malignant neoplasm of skin] 02-04-2021 Episodic Other nutritional; endocrine; and metabolic disorders (12 sources) Body mass index (BMI) 38.0-38.9, adult; Translations: [Body mass index (BMI) 40.0-44.9, adult] Onset: 11-06-2015 11-10-2015 Chronic Other nutritional; endocrine; and metabolic disorders (3 sources) Morbid obesity; Translations: [Morbid (severe) obesity due to excess calories] 10-06-2023 Chronic Other nutritional; endocrine; and metabolic disorders (3 sources) Obesity; Translations: [Obesity, unspecified] 11-08-2023 Chronic Other nutritional; endocrine; and metabolic disorders (1 source) Obesity, unspecified; Translations: [Obesity, unspecified] Onset: 03-28-2024 Chronic Other skin disorders (8 sources) Actinic keratosis; Translations: [Actinic keratosis] 02-18-2021 Episodic Comment on above: 8 mm actinic lesion nasal tip 8 mm actinic lesion nasal dorsumscattered areas of actinic damage cheeks Residual codes; unclassified (8 sources) History of cardiac catheterization; Translations: [Other specified postprocedural states] 12-28-2017 Episodic Comment on above: 11/03/[address] 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, implants and grafts, initial encounter] Onset: 11-16-2023 11-16-2023 Episodic E Codes: Adverse effects of medical drugs (17 sources) Contrast media adverse reaction; Translations: [Adverse effect of diagnostic agents, initial encounter] Onset: 11-21-2023 12-12-2023 Episodic Other aftercare (18 sources) Polypharmacy ; Translations: [Other oysterman (current) drug therapy] Onset: 11-21-2023 11-21-2023 Episodic Other aftercare (2 sources) Other shelter (current) drug therapy; Translations: [Other oysterman (current) drug therapy] Onset: 11-21-2023 Episodic Other gastrointestinal disorders (1 source) Other fecal abnormalities; Translations: [Other fecal abnormalities] Onset: 04-02-2024 Episodic Other lower respiratory disease (1 source) Other forms of dyspnea; Translations: [Other forms of dyspnea] Onset: 11-08-2023 Episodic Other lower respiratory disease (1 source) Shortness of breath; Translations: [Shortness of breath] Onset: 10-05-2023 Episodic Other non-traumatic joint disorders (9 sources) Knee pain; Translations: [Pain in right knee] Onset: 04-07-2016 04-07-2016 Episodic Residual codes; unclassified (18 sources) Poor short-term memory ; Translations: [Other amnesia] Onset: 11-21-2023 11-21-2023 Episodic Residual codes; unclassified (2 sources) Other amnesia; Translations: [Other amnesia] Onset: 11-21-2023 Episodic Residual codes; unclassified (1 source) Altered mental status, unspecified; Translations: [Altered mental status, unspecified] Onset: 01-10-2024 Episodic Unclassified (9 sources) Abnormal findings on diagnostic imaging of heart and coronary circulation; Translations: [Abnormal findings on diagnostic imaging of heart and coronary circulation] Onset: 11-06-2015 11-06-2015 Episodic Urinary tract infections (1 source) Urinary tract infection, site not specified; Translations: [Urinary tract infection, site not specified] Onset: 03-27-2024 Episodic Results Test Name Value Interpretation Reference Range Facility Absolute lymphocyte countOrd ered By: Joe Sanchez on 07-30-2024 Lymphocytes Auto (Unsp spec) [#/Vol] 1.85 10*3/uL 0.83-4.51 [facility] Absolute neutrophil countOrd ered By: Joe Sanchez on 07-30-2024 Neutrophils (Bld) [#/Vol] 3.8 10*3/uL 2.0-7.7 [facility] Anion gap in Serum or Plasma Ordered By: Joe Sanchez on 07-30-2024 Anion gap [Moles/Vol] 12 mmol/L 5-15 [facility] Automated lymphocyte count a s percentage of total leukocytesOrdered By: Joe Sanchez on 07-30-2024 Lymphocytes/100 WBC Auto (Unsp spec) 28.5 % - [facility] BUN/creatinine ratioOrdered By: montez Sanchez on 07-30-2024 Urea nitrogen/Creatinine [Mass ratio] 14.9 mg/mg 10-20 [facility] Basophil percentageOrdered B y: Joe Sanchez on 07-30-2024 Basophils/100 WBC (Bld) 1.1 % High 0-1 [facility] Carbon dioxide, total [Moles /volume] in Central venous bloodOrdered By: Joe Sanchez on 07-30-2024 CO2 [Moles/Vol] 26.5 mmol/L 21.0-32.0 [facility] Chloride assayOrdered By: Lluvia Sanchez on 07-30-2024 Chloride [Moles/Vol] 100 mmol/L 98-108 [facility] Eosinophil percentageOrdered By: Joe Sanchez on 07-30-2024 Eosinophils/100 WBC (Bld) 1.8 % 0-5 [facility] Erythrocyte distribution wid th ratioOrdered By: Joe Sanchez on 07-30-2024 Erythrocyte distribution width (RBC) [Ratio] 14.2 % 11.6-14.6 [facility] Erythrocyte distribution wid th standard deviationOrdered By: Joe Sanchez on 07-30-2024 Erythrocyte distribution width (RBC) [Ratio] 52.9 fl High 35.1-43.9 [facility] Glomerular filtration rate ( GFR) estimation/1.73 sq m using serum, plasma, or whole bOrdered By: Joe Sanchez on 07-30-2024 GFR/1.73 sq M.predicted among non-blacks MDRD (S/P/Bld) [Vol rate/Area] 26 mL/min/{1.73_m2} Low >60 [facility] Comment on above: mL/min/1.73m2 CKD-EP I Creatinine Equation (2020) Hematocrit Auto (Bld) [Volum e fraction]Ordered By: Joe Sanchez on 07-30-2024 Hematocrit (Bld) [Volume fraction] 41.4 % 37-47 [facility] Hemoglobin measurementOrdere d By: Joe Sanchez on 07-30-2024 Hemoglobin (Bld) [Mass/Vol] 13.5 g/dL 12.0-15.0 [facility] Immature granulocytes/100 WB C Auto (Bld)Ordered By: Joe Sanchez on 07-30-2024 Immature granulocytes/100 WBC (Bld) 0.800 % 0.0-0.9 [facility] Comment on above: IG% - Immature Granu locytes (promyelocytes, myelocytes and metamyelocytes) > 1% indicates that a LEFT SHIFT is Present. MCV (mean corpuscular volume ) determinationOrdered By: Joe Sanchez on 07-30-2024 MCV (RBC) [Entitic vol] 102.7 fL High 81-99 [facility] Mean corpuscular hemoglobin (MCH) determinationOrdered By: Joe Sanchez on 07-30-2024 MCH (RBC) [Entitic mass] 33.5 pg High 27.0-32.0 [facility] Mean corpuscular hemoglobin concentration (MCHC) determinationOrdered By: Joe Sanchez on 07-30-2024 MCHC (RBC) [Mass/Vol] 32.6 g/dL 32-36 [facility] Mean platelet volume determi nationOrdered By: Joe Sanchez on 07-30-2024 Platelet mean volume (Bld) [Entitic vol] 11.8 fL 6.2-12.0 [facility] Monocyte percentageOrdered B y: Joe Sanchez on 07-30-2024 Monocytes/100 WBC (Bld) 9.2 % 0-10 [facility] Neutrophil percentageOrdered By: [facility] on 07-30-2024 Neutrophils/100 WBC (Bld) 58.6 % 47-70 [facility] Nucleated red blood cell per centageOrdered By: Joe Sanchez on 07-30-2024 Nucleated RBC/100 WBC (Bld) [Ratio] 0 % 0-5 [facility] Platelet countOrdered By: Lluvia Sanchez on 07-30-2024 Platelets (Bld) [#/Vol] 167 10*3/uL 150-450 [facility] Potassium measurement (mass/ volume)Ordered By: Joe Sanchez on 07-30-2024 Potassium (Unsp spec) [Mass/Vol] 4.3 mmol/L 3.3-5.1 [facility] Comment on above: Hemolysis present, R esults could be affected. RBC Auto (Bld) [#/Vol]Ordere d By: Joe Sanchez on 07-30-2024 RBC (Bld) [#/Vol] 4.03 10*6/uL Low 4.2-5.4 [facility] Serum creatinine measurement (mass/volume)Ordered By: Joe Sanchez on 07-30-2024 Creatinine [Mass/Vol] 1.87 mg/dL High 0.70-1.20 [facility] Serum glucose measurement (m ass/volume)Ordered By: Joe Sanchez on 07-30-2024 Glucose [Mass/Vol] 89 mg/dL 70-99 [facility] Serum or plasma calcium leah urement (mass/volume)Ordered By: Joe Sanchez on 07-30-2024 Calcium [Mass/Vol] 9.4 mg/dL 7.6-11.0 [facility] Serum or plasma urea nitroge n measurement (mass/volume)Ordered By: Joe Sanchez on 07-30-2024 Urea nitrogen [Mass/Vol] 28 mg/dL High 4-19 [facility] Sodium levelOrdered By: Yudi Sanchez on 07-30-2024 Sodium [Moles/Vol] 138 mmol/L 133-145 [facility] White blood cell (WBC) count Ordered By: Joe Sanchez on 07-30-2024 WBC (Bld) [#/Vol] 6.5 10*3/uL 4.4-11.0 [facility] Bilirubin directOrdered By: Joe Sanchez on 07-15-2024 Bilirubin.direct [Mass/Vol] 0.26 mg/dL 0.00-0.30 [facility] Bilirubin, totalOrdered By: Joe Sanchez on 07-15-2024 Bilirubin [Mass/Vol] 0.62 mg/dL 0.00-1.30 [facility] Calculated very low density lipoprotein (VLDL) cholesterol measurementOrdered By: Joe Sanchez on 07-15-2024 Calculated very low density lipoprotein (VLDL) cholesterol measurement 20 mg/dL 5-40 [facility] Hemoglobin A1c percentageOrd ered By: Joe Sanchez on 07-15-2024 HbA1c (Bld) [Mass fraction] 5.5 % <5.7 [facility] Comment on above: Normal < 5.7 % Predi abetic 5.7 - 6.4 % Diabetic >or= 6.5 % Please note range changes. LDL calc ser/plasOrdered By: Joe Sanchez on 07-15-2024 Cholesterol in LDL [Mass/Vol] 86 mg/dL [facility] Comment on above: Mbcwtrzvub=360-649 m g/dL & Higher Sfcg=514 mg/dL or greater Laboratory - Chemistry and C hemistry - challengeOrdered By: Joe Sanchez on 07-15-2024 AST [Catalytic activity/Vol] 19 U/L <32 [facility] Screening total cholesterol/ high density lipoprotein (HDL) cholesterol ratioOrdered By: Joe Sanchez on 07-15-2024 Cholesterol.total/Shannon sterol in HDL [Mass ratio] 3.91 {ratio} [facility] Serum globulin measurementOr dered By: Joe Sanchez 07-15-2024 Globulin (S) [Mass/Vol] 3.2 g/dL 2.2-4.2 [facility] Serum or plasma alanine kilpatrick otransferase (ALT) measurementOrdered By: Joe Sanchez on 07-15-2024 ALT [Catalytic activity/Vol] 7 U/L <35 [facility] Serum or plasma albumin leah urement (mass/volume)Ordered By: Joe Sanchez 07-15-2024 Albumin [Mass/Vol] 3.4 g/dL 3.4-4.8 [facility] Serum or plasma alkaline kirti sphatase measurementOrdered By: Joe Sanchez 07-15-2024 ALP [Catalytic activity/Vol] 67 U/L 35-104 [facility] Serum or plasma cholesterol in HDL measurement (mass/volume)Ordered By: Joe Sanchez 07-15-2024 Cholesterol in HDL [Mass/Vol] 36 mg/dL Low >40 [facility] Comment on above: National Cholesterol Education Program (NCEP) guidelines:<40 mg/dL: Low HDL-cholesterol (major risk factor for CHD)>= 60 mg/dL: High HDL-cholesterol (negative risk factor for CHD)HDL-cholesterol is affected by a number of factors, e.g. smoking, exercise, hormones, sex and age. Serum or plasma cholesterol measurement (mass/volume)Ordered By: Lluviaclaudiomelissalynnette Morrisawaismilton on 07-15-2024 Cholesterol [Mass/Vol] 142 mg/dL <201 [facility] Comment on above: Cholesterol level, D esirable <200 mg/dLBorderline high cholesterol 200-239 mg/dLHigh cholesterol >=240 mg/dLRecommendations of the NCEP Adult Treatment Panel for the following risk-cutoff thresholds for the [place] population. Total proteinOrdered By: Constantin frausto Arturoawaismilton on 07-15-2024 Protein [Mass/Vol] 6.7 g/dL 5.9-8.4 [facility] Triglycerides measurementOrd ered By: Lluviaclaudiokayleigh Arturoawaismilton on 07-15-2024 Triglyceride [Mass/Vol] 101 mg/dL <199 [facility] Comment on above: The drugs N-Acetylcy steine and Metamizole may falsely depress this assay. Normal range: <150 mg/dLBorderline High: 150-199 mg/dLHigh: 200-499 mg/dLVery High: >500 mg/dL Absolute lymphocyte countOrd ered By: Lluviaclaudiomelissalynnette Morrisawaismilton on 07-02-2024 Lymphocytes Auto (Unsp spec) [#/Vol] 1.69 10*3/uL 0.83-4.51 [facility] Absolute neutrophil countOrd ered By: Joe Arturohans on 07-02-2024 Neutrophils (Bld) [#/Vol] 4.5 10*3/uL 2.0-7.7 [facility] Anion gap in Serum or Plasma Ordered By: Lluviaclaudiomelissalynnette Morrisawaismilton on 07-02-2024 Anion gap [Moles/Vol] 13 mmol/L - [facility] Automated lymphocyte count a s percentage of total leukocytesOrdered By: Lluviaclaudiomelissalynnette Morrisawaismilton on 07-02-2024 Lymphocytes/100 WBC Auto (Unsp spec) 23.8 % - [facility] BUN/creatinine ratioOrdered By: Lluviamontez Morrisawaismilton on 07-02-2024 Urea nitrogen/Creatinine [Mass ratio] 16.6 mg/mg 10-20 [facility] Basophil percentageOrdered B y: Joe Sanchez on 07-02-2024 Basophils/100 WBC (Bld) 1.0 % 0-1 [facility] Carbon dioxide, total [Moles /volume] in Central venous bloodOrdered By: Joe Sanchez on 07-02-2024 CO2 [Moles/Vol] 26.0 mmol/L 21.0-32.0 [facility] Chloride assayOrdered By: Lluvia Sanchez on 07-02-2024 Chloride [Moles/Vol] 99 mmol/L 98-108 [facility] Eosinophil percentageOrdered By: Joe Sanchez on 07-02-2024 Eosinophils/100 WBC (Bld) 1.7 % 0-5 [facility] Erythrocyte distribution wid th ratioOrdered By: Joe Sanchez on 07-02-2024 Erythrocyte distribution width (RBC) [Ratio] 13.5 % 11.6-14.6 [facility] Erythrocyte distribution wid th standard deviationOrdered By: Joe Sanchez 07-02-2024 Erythrocyte distribution width (RBC) [Ratio] 47.8 fl High 35.1-43.9 [facility] Glomerular filtration rate ( GFR) estimation/1.73 sq m using serum, plasma, or whole bOrdered By: Joe Sanchez on 07-02-2024 GFR/1.73 sq M.predicted among non-blacks MDRD (S/P/Bld) [Vol rate/Area] 28 mL/min/{1.73_m2} Low >60 [facility] Comment on above: mL/min/1.73m2 CKD-EP I Creatinine Equation (2020) Hematocrit Auto (Bld) [Volum e fraction]Ordered By: Joe Sanchez on 07-02-2024 Hematocrit (Bld) [Volume fraction] 41.2 % 37-47 [facility] Hemoglobin measurementOrdere d By: Joe Sanchez 07-02-2024 Hemoglobin (Bld) [Mass/Vol] 13.8 g/dL 12.0-15.0 [facility] Immature granulocytes/100 WB C Auto (Bld)Ordered By: Joe Sanchez 07-02-2024 Immature granulocytes/100 WBC (Bld) 0.600 % 0.0-0.9 [facility] Comment on above: IG% - Immature Granu locytes (promyelocytes, myelocytes and metamyelocytes) > 1% indicates that a LEFT SHIFT is Present. MCV (mean corpuscular volume ) determinationOrdered By: Lluviamontez Sanchez on 07-02-2024 MCV (RBC) [Entitic vol] 95.8 fL 81-99 [facility] Mean corpuscular hemoglobin (MCH) determinationOrdered By: claudiomelissalynnette Morrisawaismilton on 07-02-2024 MCH (RBC) [Entitic mass] 32.1 pg High 27.0-32.0 [facility] Mean corpuscular hemoglobin concentration (MCHC) determinationOrdered By: claudiograngerlynnette Morrisawaismilton on 07-02-2024 MCHC (RBC) [Mass/Vol] 33.5 g/dL 32-36 [facility] Mean platelet volume determi nationOrdered By: Lluviaclaudiograngerlynnette Morrisawaismilton on 07-02-2024 Platelet mean volume (Bld) [Entitic vol] 12.6 fL High 6.2-12.0 [facility] Monocyte percentageOrdered B y: [facility] Arturomilton on 07-02-2024 Monocytes/100 WBC (Bld) 9.8 % 0-10 [facility] Neutrophil percentageOrdered By: [facility] Morrismilton on 07-02-2024 Neutrophils/100 WBC (Bld) 63.1 % 47-70 [facility] Nucleated red blood cell per centageOrdered By: Lluviaclaudiograngerlynnette Morrisawaismilton on 07-02-2024 Nucleated RBC/100 WBC (Bld) [Ratio] 0 % 0-5 [facility] Platelet countOrdered By: montez Arturomilton on 07-02-2024 Platelets (Bld) [#/Vol] 210 10*3/uL 150-450 [facility] Potassium measurement (mass/ volume)Ordered By: claudiograngerlynnette Morrisawaismilton on 07-02-2024 Potassium (Unsp spec) [Mass/Vol] 4.4 mmol/L 3.3-5.1 [facility] Comment on above: Hemolysis present, R esults could be affected. RBC Auto (Bld) [#/Vol]Ordere d By: Joe Sanchez on 07-02-2024 RBC (Bld) [#/Vol] 4.30 10*6/uL 4.2-5.4 [facility] Serum creatinine measurement (mass/volume)Ordered By: Joe Sanchez on 07-02-2024 Creatinine [Mass/Vol] 1.78 mg/dL High 0.70-1.20 [facility] Serum glucose measurement (m ass/volume)Ordered By: Joe Sanchez on 07-02-2024 Glucose [Mass/Vol] 100 mg/dL High 70-99 [facility] Serum or plasma calcium leah urement (mass/volume)Ordered By: Joe Sanchez on 07-02-2024 Calcium [Mass/Vol] 9.5 mg/dL 7.6-11.0 [facility] Serum or plasma urea nitroge n measurement (mass/volume)Ordered By: Joe Sanchez on 07-02-2024 Urea nitrogen [Mass/Vol] 30 mg/dL High 4-19 [facility] Sodium levelOrdered By: Yudi kirbydrew Daniel on 07-02-2024 Sodium [Moles/Vol] 138 mmol/L 133-145 [facility] White blood cell (WBC) count Ordered By: Joe Sanchez on 07-02-2024 WBC (Bld) [#/Vol] 7.1 10*3/uL 4.4-11.0 [facility] Vitamin D, 25-hydroxyOrdered By: Joe Sanchez on 06-18-2024 Vitamin D 25-Hydroxy 23.4 ng/mL Low 30-100 [facility] Comment on above: Vitamin D StatusDefi ciency: <20 ng/mL (50nmol/L)Insufficiency: 20-30 ng/mL (50-75 nmol/L)Sufficiency: 30-100 ng/mL (75-250 nmol/L)Toxicity: >100 ng/mL (>250 nmol/L) Absolute lymphocyte countOrd ered By: Joe Sanchez on 06-04-2024 Lymphocytes Auto (Unsp spec) [#/Vol] 1.61 10*3/uL 0.83-4.51 [facility] Absolute neutrophil countOrd ered By: montez Sanchez on 06-04-2024 Neutrophils (Bld) [#/Vol] 5.3 10*3/uL 2.0-7.7 [facility] Anion gap in Serum or Plasma Ordered By: montez Sanchez on 06-04-2024 Anion gap [Moles/Vol] 13 mmol/L 5-15 [facility] Automated lymphocyte count a s percentage of total leukocytesOrdered By: Joe Sanchez on 06-04-2024 Lymphocytes/100 WBC Auto (Unsp spec) 19.9 % 19-41 [facility] BUN/creatinine ratioOrdered By: [facility] on 06-04-2024 Urea nitrogen/Creatinine [Mass ratio] 16.0 mg/mg 10-20 [facility] Basophil percentageOrdered B y: Joe Sanchez on 06-04-2024 Basophils/100 WBC (Bld) 1.1 % High 0-1 [facility] Carbon dioxide, total [Moles /volume] in Central venous bloodOrdered By: [facility] on 06-04-2024 CO2 [Moles/Vol] 26.2 mmol/L 21.0-32.0 [facility] Chloride assayOrdered By: Lluvia Sanchez on 06-04-2024 Chloride [Moles/Vol] 99 mmol/L 98-108 [facility] Eosinophil percentageOrdered By: montez Sanchez on 06-04-2024 Eosinophils/100 WBC (Bld) 2.2 % 0-5 [facility] Erythrocyte distribution wid th (RBC) [Ratio]Ordered By: montez Sanchez on 06-04-2024 Erythrocyte distribution width (RBC) [Entitic vol] 46.8 fL High 35.1-43.9 [facility] Erythrocyte distribution wid th ratioOrdered By: [facility] on 06-04-2024 Erythrocyte distribution width (RBC) [Ratio] 13.2 % 11.6-14.6 [facility] Erythrocyte distribution wid th standard deviationOrdered By: claudiograngerlynnette Sanchez on 06-04-2024 Erythrocyte distribution width (RBC) [Ratio] 46.8 fl High 35.1-43.9 [facility] GFR/1.73 sq M.predicted venkata g non-blacks MDRD (S/P/Bld) [Vol rate/Area]Ordered By: Joe Sanchez on 06-04-2024 Estimated GFR (MDRD) Non-Af Amer 29 Low >60 [facility] Comment on above: mL/min/1.73m2 CKD-EP I Creatinine Equation (2020) Glomerular filtration rate ( GFR) estimation/1.73 sq m using serum, plasma, or whole bOrdered By: Joe Sanchez on 06-04-2024 GFR/1.73 sq M.predicted among non-blacks MDRD (S/P/Bld) [Vol rate/Area] 29 mL/min/{1.73_m2} Low >60 [facility] Comment on above: mL/min/1.73m2 CKD-EP I Creatinine Equation (2020) Hematocrit Auto (Bld) [Volum e fraction]Ordered By: Joe Sanchez on 06-04-2024 Hematocrit (Bld) [Volume fraction] 43.1 % 37-47 [facility] Hemoglobin measurementOrdere d By: Joe Sanchez on 06-04-2024 Hemoglobin (Bld) [Mass/Vol] 14.2 g/dL 12.0-15.0 [facility] Immature granulocytes/100 WB C Auto (Bld)Ordered By: Joe Sanchez on 06-04-2024 Immature granulocytes/100 WBC (Bld) 0.600 % 0.0-0.9 [facility] Comment on above: IG% - Immature Granu locytes (promyelocytes, myelocytes and metamyelocytes) > 1% indicates that a LEFT SHIFT is Present. Lymphocytes Auto (Unsp spec) [#/Vol]Ordered By: Joe Sanchez on 06-04-2024 Lymphocytes (Bld) [#/Vol] 1.61 10*3/uL 0.83-4.51 [facility] Lymphocytes/100 WBC Auto (Un sp spec)Ordered By: Joe Sanchez on 06-04-2024 Lymphocytes/100 WBC (Bld) 19.9 % 19-41 [facility] MCV (mean corpuscular volume ) determinationOrdered By: Joe Sanchez on 06-04-2024 MCV (RBC) [Entitic vol] 96.9 fL 81-99 [facility] Mean corpuscular hemoglobin (MCH) determinationOrdered By: Joe Sanchez on 06-04-2024 MCH (RBC) [Entitic mass] 31.9 pg 27.0-32.0 [facility] Mean corpuscular hemoglobin concentration (MCHC) determinationOrdered By: Joe Sanchez on 06-04-2024 MCHC (RBC) [Mass/Vol] 32.9 g/dL 32-36 [facility] Mean platelet volume determi nationOrdered By: Joe Sanchez on 06-04-2024 Platelet mean volume (Bld) [Entitic vol] 12.3 fL High 6.2-12.0 [facility] Monocyte percentageOrdered B y: Joe Sanchez on 06-04-2024 Monocytes/100 WBC (Bld) 10.4 % High 0-10 [facility] Neutrophil percentageOrdered By: Joe Sanchez on 06-04-2024 Neutrophils/100 WBC (Bld) 65.8 % 47-70 [facility] Nucleated red blood cell per centageOrdered By: Joe Sanchez on 06-04-2024 Nucleated RBC/100 WBC (Bld) [Ratio] 0 % 0-5 [facility] Platelet countOrdered By: Lluvia Sanchez on 06-04-2024 Platelets (Bld) [#/Vol] 216 10*3/uL 150-450 [facility] Potassium (Unsp spec) [Mass/ Vol]Ordered By: Joe Sanchez on 06-04-2024 Potassium [Moles/Vol] 4.5 mmol/L 3.3-5.1 [facility] Potassium measurement (mass/ volume)Ordered By: Joe Sanchez on 06-04-2024 Potassium (Unsp spec) [Mass/Vol] 4.5 mmol/L 3.3-5.1 [facility] RBC Auto (Bld) [#/Vol]Ordere d By: Joe Sanchez on 06-04-2024 RBC (Bld) [#/Vol] 4.45 10*6/uL 4.2-5.4 [facility] Serum creatinine measurement (mass/volume)Ordered By: Lluviaclaudiokayleigh Chaumilton on 06-04-2024 Creatinine [Mass/Vol] 1.74 mg/dL High 0.70-1.20 [facility] Serum glucose measurement (m ass/volume)Ordered By: Lluviamontez Morrisawaismilton on 06-04-2024 Glucose [Mass/Vol] 91 mg/dL 70-99 [facility] Serum or plasma calcium leah urement (mass/volume)Ordered By: Lluviaclaudiomelissalynnetet Morrisawaismilton on 06-04-2024 Calcium [Mass/Vol] 9.5 mg/dL 7.6-11.0 [facility] Serum or plasma urea nitroge n measurement (mass/volume)Ordered By: Joe Morrisawaismilton on 06-04-2024 Urea nitrogen [Mass/Vol] 28 mg/dL High 4-19 [facility] Sodium levelOrdered By: Yudi Sanchez on 06-04-2024 Sodium [Moles/Vol] 138 mmol/L 133-145 [facility] White blood cell (WBC) count Ordered By: Lluviaclaudiokayleigh Arturoawaismilton on 06-04-2024 WBC (Bld) [#/Vol] 8.1 10*3/uL 4.4-11.0 [facility] Absolute lymphocyte countOrd ered By: Yudimelissalynnette Morrisawaismilton on 05-07-2024 Lymphocytes Auto (Unsp spec) [#/Vol] 1.40 10*3/uL 0.83-4.51 [facility] Absolute neutrophil countOrd ered By: Joaquinlynnette Morrisawaismilton on 05-07-2024 Neutrophils (Bld) [#/Vol] 5.1 10*3/uL 2.0-7.7 [facility] Automated lymphocyte count a s percentage of total leukocytesOrdered By: Lluviamontez Morrisawaismilton on 05-07-2024 Lymphocytes/100 WBC Auto (Unsp spec) 19.1 % 19-41 [facility] Basophil percentageOrdered B y: Joe Sanchez on 05-07-2024 Basophils/100 WBC (Bld) 1.0 % 0-1 [facility] Blood urea nitrogen (BUN)/cr eatinine ratioOrdered By: Joe Sanchez on 05-07-2024 Urea nitrogen/Creatinine [Mass ratio] 13.9 mg/mg 10-20 [facility] Carbon dioxide measurementOr dered By: Joe Sanchez on 05-07-2024 CO2 [Moles/Vol] 28.0 mmol/L 21.0-32.0 [facility] Chloride measurementOrdered By: Joe Sanchez on 05-07-2024 Chloride [Moles/Vol] 101 mmol/L 98-107 [facility] Eosinophil percentageOrdered By: Joe Sanchez on 05-07-2024 Eosinophils/100 WBC (Bld) 2.7 % 0-5 [facility] Erythrocyte distribution wid th (RBC) [Ratio]Ordered By: Joe Sanchez on 05-07-2024 Erythrocyte distribution width (RBC) [Entitic vol] 48.3 fL High 35.1-43.9 [facility] Erythrocyte distribution wid th ratioOrdered By: Joe Sanchez on 05-07-2024 Erythrocyte distribution width (RBC) [Ratio] 13.5 % 11.6-14.6 [facility] Erythrocyte distribution wid th standard deviationOrdered By: claudiograngerlynnette Sanchez on 05-07-2024 Erythrocyte distribution width (RBC) [Ratio] 48.3 fl High 35.1-43.9 [facility] Estimated glomerular filtrat ion rate (GFR) AmericanOrdered By: Joe Sanchez on 05-07-2024 Estimated GFR (MDRD) Amer 29 mL/min Low >60 [facility] Comment on above: GFR Calc Glomerular filtration rate ( GFR) estimationOrdered By: Joe Sanchez on 05-07-2024 Estimated GFR (MDRD) Non-Af Amer 24 mL/min Low >60 [facility] Comment on above: Non- GFR Calc GFR/1.73 sq M.predicted among non-blacks MDRD (S/P/Bld) [Vol rate/Area] 24 mL/min/{1.73_m2} Low >60 [facility] Comment on above: Non- GFR Calc Glucose measurementOrdered B y: Joe Arturohans on 05-07-2024 Glucose [Mass/Vol] 122 mg/dL High 74-106 [facility] Comment on above: Fasting Glucose resu lt from 100 to 125 mg/dL suggests IMPAIRED HOMEOSTASIS per A.D.A. criteria. Hematocrit Auto (Bld) [Volum e fraction]Ordered By: Joe Sanchez on 05-07-2024 Hematocrit (Bld) [Volume fraction] 41.3 % 37-47 [facility] Hemoglobin measurementOrdere d By: Joe Sanchez on 05-07-2024 Hemoglobin (Bld) [Mass/Vol] 13.4 g/dL 12.0-15.0 [facility] Immature granulocytes/100 WB C Auto (Bld)Ordered By: Joe Sanchez on 05-07-2024 Immature granulocytes/100 WBC (Bld) 0.700 % 0.0-0.9 [facility] Comment on above: IG% - Immature Granu locytes (promyelocytes, myelocytes and metamyelocytes) > 1% indicates that a LEFT SHIFT is Present. Lymphocytes Auto (Unsp spec) [#/Vol]Ordered By: Joe Sanchez on 05-07-2024 Lymphocytes (Bld) [#/Vol] 1.40 10*3/uL 0.83-4.51 [facility] Lymphocytes/100 WBC Auto (Un sp spec)Ordered By: Joe Sanchez on 05-07-2024 Lymphocytes/100 WBC (Bld) 19.1 % 19-41 [facility] MCV (mean corpuscular volume ) determinationOrdered By: Joe Sanchez on 05-07-2024 MCV (RBC) [Entitic vol] 98.6 fL 81-99 [facility] Mean corpuscular hemoglobin (MCH) determinationOrdered By: Joe Sanchez on 05-07-2024 MCH (RBC) [Entitic mass] 32.0 pg 27.0-32.0 [facility] Mean corpuscular hemoglobin concentration (MCHC) determinationOrdered By: Joe Sanchez on 05-07-2024 MCHC (RBC) [Mass/Vol] 32.4 g/dL 32-36 [facility] Mean platelet volume determi nationOrdered By: Joe Sanchez on 05-07-2024 Platelet mean volume (Bld) [Entitic vol] 12.6 fL High 6.2-12.0 [facility] Monocyte percentageOrdered B y: Joe Sanchez on 05-07-2024 Monocytes/100 WBC (Bld) 7.4 % 0-10 [facility] Neutrophil percentageOrdered By: Joe Sanchez on 05-07-2024 Neutrophils/100 WBC (Bld) 69.1 % 47-70 [facility] Nucleated red blood cell per centageOrdered By: Joe Sanchez on 05-07-2024 Nucleated RBC/100 WBC (Bld) [Ratio] 0 % 0-5 [facility] Platelet countOrdered By: Lluvia Sanchez on 05-07-2024 Platelets (Bld) [#/Vol] 194 10*3/uL 150-450 [facility] Potassium measurementOrdered By: Joe Sanchez on 05-07-2024 Potassium [Moles/Vol] 3.6 mmol/L 3.5-5.1 [facility] RBC Auto (Bld) [#/Vol]Ordere d By: Joe Sanchez on 05-07-2024 RBC (Bld) [#/Vol] 4.19 10*6/uL Low 4.2-5.4 [facility] Serum anion gap measurementO rdered By: Joe Sanchez on 05-07-2024 Anion gap [Moles/Vol] 10 mmol/L 5-15 [facility] Serum or plasma calcium leah urement (mass/volume)Ordered By: Joe Sanchez on 05-07-2024 Calcium [Mass/Vol] 9.3 mg/dL 8.5-10.1 [facility] Serum or plasma creatinine m easurement (mass/volume)Ordered By: Joe Sanchez on 05-07-2024 Creatinine [Mass/Vol] 2.08 mg/dL High 0.55-1.02 [facility] Comment on above: The validity of the calculated GFR & GFRAA in patients over 70 years has not been determined. Clinical correlation is essential. Serum or plasma urea nitroge n measurement (mass/volume)Ordered By: Joe Sanchez on 05-07-2024 Urea nitrogen [Mass/Vol] 29 mg/dL High 7-18 [facility] Sodium levelOrdered By: Yudi Sanchez on 05-07-2024 Sodium [Moles/Vol] 139 mmol/L 136-145 [facility] White blood cell (WBC) count Ordered By: Joe Sanchez on 05-07-2024 WBC (Bld) [#/Vol] 7.3 10*3/uL 4.4-11.0 [facility] 81-OK-Arbayhv DOrdered By: Milton Sanchez on 04-22-2024 Vitamin D 25-Hydroxy 69.4 ng/mL [facility] Comment on above: Vitamin D 25(OH) Sta tus Range Deficiency <20 ng/mL (50nmol/L) Insufficiency 20 - 30 ng/mL (50 - 75 nmol/L) Sufficiency 30 - 100 ng/mL (75 - 250 nmol/L) Toxicity >100 ng/mL (>250 nmol/L) Bilirubin directOrdered By: Joe Sanchez on 04-22-2024 Bilirubin.direct [Mass/Vol] 0.29 mg/dL 0.00-0.30 [facility] Bilirubin, totalOrdered By: Joe Sanchez on 04-22-2024 Bilirubin [Mass/Vol] 0.90 mg/dL 0.20-1.00 [facility] Comment on above: For patients on eltr ombopag therapy, use of Dimension [place] TBIL is not recommended. Hemoglobin A1c percentageOrd ered By: Joe Sanchez on 04-22-2024 HbA1c (Bld) [Mass fraction] 5.2 % 3.8-5.6 [facility] Comment on above: Normal < 5.7 % Predi abetic 5.7 - 6.4 % Diabetic >or= 6.5 % Please note range changes. High density lipoprotein (HD L) measurementOrdered By: Joe Sanchez on 04-22-2024 Cholesterol in HDL [Mass/Vol] 44 mg/dL >40 [facility] Comment on above: The drugs N-Acetylcy steine and Metamizole may falsely depress this assay. Reference Range HDL <40 mg/dL Low HDL Cholesterol HDL >or= 60 mg/dL High HDL Cholesterol Laboratory - Chemistry and C hemistry - challengeOrdered By: Joe Sanchez on 04-22-2024 AST [Catalytic activity/Vol] 15 U/L 15-37 [facility] Low density lipoprotein (LDL ) cholesterol measurementOrdered By: Joe Sanchez on 04-22-2024 Cholesterol in LDL [Mass/Vol] 41 mg/dL 0-130 [facility] Serum globulin measurementOr dered By: Joe Sanchez on 04-22-2024 Globulin (S) [Mass/Vol] 3.7 g/dL 2.2-4.2 [facility] Serum or plasma alanine kilpatrick otransferase (ALT) measurementOrdered By: Joe Sanchez on 04-22-2024 ALT [Catalytic activity/Vol] 14 U/L 13-56 [facility] Serum or plasma albumin leha urement (mass/volume)Ordered By: Joe Sanchez on 04-22-2024 Albumin [Mass/Vol] 2.7 g/dL Low 3.2-5.0 [facility] Serum or plasma alkaline kirti sphatase measurementOrdered By: Joe Sanchez on 04-22-2024 ALP [Catalytic activity/Vol] 61 U/L 45-117 [facility] Serum or plasma cholesterol measurement (mass/volume)Ordered By: Joe Sanchez on 04-22-2024 Cholesterol [Mass/Vol] 106 mg/dL <200 [facility] Comment on above: <200 mg/dL Desirable 200-240 mg/dL Borderline >240 mg/dL High Risk Total proteinOrdered By: Constantin Sanchez on 04-22-2024 Protein [Mass/Vol] 6.4 g/dL 6.4-8.2 [facility] Triglycerides measurementOrd ered By: Joe Sanchez on 04-22-2024 Triglyceride [Mass/Vol] 107 mg/dL <199 [facility] Comment on above: The drugs N-Acetylcy steine and Metamizole may falsely depress this assay.Serum Triglycerides Reference Interval Normal <150 mg/dL Borderline high 150 - 199 mg/dL High 200 - 499 mg/dL Very High > or = 500 mg/dL Very low density lipoprotein (VLDL) cholesterol measurementOrdered By: Joe Sanchez on 04-22-2024 Very low density lipoprotein (VLDL) cholesterol measurement 21 mg/dL 5-40 [facility] VLDL Cholesterol 21 mg/dL 5-40 [facility] Absolute lymphocyte countOrd ered By: Yudimelissalynnette Morrisawaismilton on 04-09-2024 Lymphocytes Auto (Unsp spec) [#/Vol] 1.63 10*3/uL 0.83-4.51 [facility] Absolute neutrophil countOrd ered By: Joe Sanchez on 04-09-2024 Neutrophils (Bld) [#/Vol] 5.0 10*3/uL 2.0-7.7 [facility] Automated lymphocyte count a s percentage of total leukocytesOrdered By: Joe Sanchez on 04-09-2024 Lymphocytes/100 WBC Auto (Unsp spec) 20.7 % 19-41 [facility] Basophil percentageOrdered B y: Joe Morrisawaismilton on 04-09-2024 Basophils/100 WBC (Bld) 1.3 % High 0-1 [facility] Blood urea nitrogen (BUN)/cr eatinine ratioOrdered By: Joe Sanchez on 04-09-2024 Urea nitrogen/Creatinine [Mass ratio] 11.4 mg/mg 10-20 [facility] Carbon dioxide measurementOr dered By: Joe Morrisawaismilton on 04-09-2024 CO2 [Moles/Vol] 30.0 mmol/L 21.0-32.0 [facility] Chloride measurementOrdered By: Joe Sanchez on 04-09-2024 Chloride [Moles/Vol] 100 mmol/L 98-107 [facility] Eosinophil percentageOrdered By: Joe Sanchez on 04-09-2024 Eosinophils/100 WBC (Bld) 2.4 % 0-5 [facility] Erythrocyte distribution wid th (RBC) [Ratio]Ordered By: Joe Sanchez on 04-09-2024 Erythrocyte distribution width (RBC) [Entitic vol] 49.9 fL High 35.1-43.9 [facility] Erythrocyte distribution wid th ratioOrdered By: montez Sanchez on 04-09-2024 Erythrocyte distribution width (RBC) [Ratio] 13.6 % 11.6-14.6 [facility] Erythrocyte distribution wid th standard deviationOrdered By: Joe Sanchez on 04-09-2024 Erythrocyte distribution width (RBC) [Ratio] 49.9 fl High 35.1-43.9 [facility] Estimated glomerular filtrat ion rate (GFR) AmericanOrdered By: Joe Sanchez on 04-09-2024 Estimated GFR (MDRD) Amer 36 mL/min Low >60 [facility] Comment on above: GFR Calc Glomerular filtration rate ( GFR) estimationOrdered By: Joe Sanchez on 04-09-2024 Estimated GFR (MDRD) Non-Af Amer 30 mL/min Low >60 [facility] Comment on above: Non- GFR Calc GFR/1.73 sq M.predicted among non-blacks MDRD (S/P/Bld) [Vol rate/Area] 30 mL/min/{1.73_m2} Low >60 [facility] Comment on above: Non- GFR Calc Glucose measurementOrdered B y: Joe Sanchez on 04-09-2024 Glucose [Mass/Vol] 86 mg/dL 74-106 [facility] Hematocrit Auto (Bld) [Volum e fraction]Ordered By: Joe Sanchez on 04-09-2024 Hematocrit (Bld) [Volume fraction] 40.5 % 37-47 [facility] Hemoglobin measurementOrdere d By: Joe Sanchez on 04-09-2024 Hemoglobin (Bld) [Mass/Vol] 13.0 g/dL 12.0-15.0 [facility] Immature granulocytes/100 WB C Auto (Bld)Ordered By: Joe Sanchez on 04-09-2024 Immature granulocytes/100 WBC (Bld) 0.600 % 0.0-0.9 [facility] Comment on above: IG% - Immature Granu locytes (promyelocytes, myelocytes and metamyelocytes) > 1% indicates that a LEFT SHIFT is Present. Lymphocytes Auto (Unsp spec) [#/Vol]Ordered By: Joe Sanchez on 04-09-2024 Lymphocytes (Bld) [#/Vol] 1.63 10*3/uL 0.83-4.51 [facility] Lymphocytes/100 WBC Auto (Un sp spec)Ordered By: Joe Sanchez on 04-09-2024 Lymphocytes/100 WBC (Bld) 20.7 % 19-41 [facility] MCV (mean corpuscular volume ) determinationOrdered By: Joe Sanchez on 04-09-2024 MCV (RBC) [Entitic vol] 98.5 fL 81-99 [facility] Mean corpuscular hemoglobin (MCH) determinationOrdered By: Joe Sanchez on 04-09-2024 MCH (RBC) [Entitic mass] 31.6 pg 27.0-32.0 [facility] Mean corpuscular hemoglobin concentration (MCHC) determinationOrdered By: montez Sanchez on 04-09-2024 MCHC (RBC) [Mass/Vol] 32.1 g/dL 32-36 [facility] Mean platelet volume determi nationOrdered By: Joe Sanchez on 04-09-2024 Platelet mean volume (Bld) [Entitic vol] 12.2 fL High 6.2-12.0 [facility] Monocyte percentageOrdered B y: Joe Sanchez on 04-09-2024 Monocytes/100 WBC (Bld) 10.9 % High 0-10 [facility] Neutrophil percentageOrdered By: Joe Sanchez on 04-09-2024 Neutrophils/100 WBC (Bld) 64.1 % 47-70 [facility] Nucleated red blood cell per centageOrdered By: Joe Sanchez on 04-09-2024 Nucleated RBC/100 WBC (Bld) [Ratio] 0 % 0-5 [facility] Platelet countOrdered By: Lluvia Sanchez on 04-09-2024 Platelets (Bld) [#/Vol] 215 10*3/uL 150-450 [facility] Potassium measurementOrdered By: Joe Morrisawaismilton on 04-09-2024 Potassium [Moles/Vol] 4.2 mmol/L 3.5-5.1 [facility] RBC Auto (Bld) [#/Vol]Ordere d By: Yudimelissalynnette Morrishans on 04-09-2024 RBC (Bld) [#/Vol] 4.11 10*6/uL Low 4.2-5.4 [facility] Serum anion gap measurementO rdered By: Yudimelissalynnette Morrisawaismilton on 04-09-2024 Anion gap [Moles/Vol] 6 mmol/L 5-15 [facility] Serum or plasma calcium leah urement (mass/volume)Ordered By: Joe Morrisawaismilton on 04-09-2024 Calcium [Mass/Vol] 9.8 mg/dL 8.5-10.1 [facility] Serum or plasma creatinine m easurement (mass/volume)Ordered By: Joe Morrisawaismilton on 04-09-2024 Creatinine [Mass/Vol] 1.75 mg/dL High 0.55-1.02 [facility] Comment on above: The validity of the calculated GFR & GFRAA in patients over 70 years has not been determined. Clinical correlation is essential. Serum or plasma urea nitroge n measurement (mass/volume)Ordered By: Joe Sanchez on 04-09-2024 Urea nitrogen [Mass/Vol] 20 mg/dL High 7-18 [facility] Sodium levelOrdered By: Yudi kayleigh Arturoawaismilton on 04-09-2024 Sodium [Moles/Vol] 137 mmol/L 136-145 [facility] White blood cell (WBC) count Ordered By: Yudimelissalynnette Morrisawaismilton on 04-09-2024 WBC (Bld) [#/Vol] 7.9 10*3/uL 4.4-11.0 [facility] 36on 04-03-2024 36 Records received and scanned under [facility] 36on 04-01-2024 36 I called Osmany and she requested me to fax med recs release to [phone] I faxed this morning. Confirmed 04/02 at 5:45p [facility] 36on 03-15-2024 36 Chart reviewed, patient completed 30 day follow-up in [place]. Cancelled echo order [facility] 36 Patient prefers care in [facility] 36 We have been unable to reach your patient to schedule their testing. Test Name: echo 1st Attempt: 03/14/2024 left voicemail 2nd Attempt: 03/15/2024 left voicemail [facility] Bilirubin Test strip Ql (U)O rdered By: Joe Sanchez on 03-15-2024 Bilirubin Ql (U) Negative Negative [facility] Glucose Ql (U)Ordered By: Lluvia Sanchez on 03-15-2024 Glucose (U) [Mass/Vol] 250 mg/dL High Normal [facility] Ketones Test strip Ql (U)Ord ered By: Joe Sanchez on 03-15-2024 Ketones Ql (U) Negative Negative [facility] Nitrite Test strip Ql (U)Ord ered By: Joe Sanchez on 03-15-2024 Nitrite Ql (U) Negative Negative [facility] Protein Test strip Ql (U)Ord ered By: Joe Sanchez on 03-15-2024 Protein Ql (U) 100 mg/dl High Negative [facility] Urine blood detectionOrdered By: Joe Sanchez on 03-15-2024 Urine Occult Blood 250 /ul High Negative [facility] Urine clarityOrdered By: Constantin Sanchez on 03-15-2024 Clarity (U) Cloudy Clear [facility] Urine color determinationOrd ered By: Joe Sanchez on 03-15-2024 Color (U) Straw Yellow [facility] Urine cultureOrdered By: Constantin Sanchez on 03-15-2024 Bacteria identified Cx Nom (U) Enterobacter cloacae complex Abnormal [facility] Urine leukocyte esterase det ection by dipstickOrdered By: Joe Sanchez on 03-15-2024 Leukocyte esterase Test strip Ql (U) 500 /ul High Negative [facility] Urine pHOrdered By: Miles Sanchez on 03-15-2024 pH (U) 6.0 [pH] 5.0 - 8.0 [facility] Urine specific gravity measu rementOrdered By: Lluviaclaudiokayleigh Chaumilton on 03-15-2024 Specific gravity (U) [Rel density] 1.015 1.002-1.030 [facility] Urobilinogen Ql (U)Ordered B y: Joe Chaumilton on 03-15-2024 Urine Urobilinogen Normal mg/dl Normal [facility] Absolute neutrophil countOrd ered By: Lluviamontez Morrisawaismilton on 03-08-2024 Neutrophils (Bld) [#/Vol] 5.5 10*3/uL 2.0-7.7 [facility] Basophil percentageOrdered B y: Joaquinlynnette Morrisawaismilton on 03-08-2024 Basophils/100 WBC (Bld) 1.3 % High 0-1 [facility] Blood urea nitrogen (BUN)/cr eatinine ratioOrdered By: Joe Morrisawaismilton on 03-08-2024 Urea nitrogen/Creatinine [Mass ratio] 13.4 mg/mg 10-20 [facility] Carbon dioxide measurementOr dered By: Joaquinlynnette Arturoawaismilton on 03-08-2024 CO2 [Moles/Vol] 27.0 mmol/L 21.0-32.0 [facility] Chloride measurementOrdered By: Joe Sanchez on 03-08-2024 Chloride [Moles/Vol] 98 mmol/L 98-107 [facility] Eosinophil percentageOrdered By: Yudionglynnette Kandie on 03-08-2024 Eosinophils/100 WBC (Bld) 3.6 % 0-5 [facility] Erythrocyte distribution wid th (RBC) [Ratio]Ordered By: Joe Morrisawaise on 03-08-2024 Erythrocyte distribution width (RBC) [Entitic vol] 50.5 fL High 35.1-43.9 [facility] Erythrocyte distribution wid th ratioOrdered By: Joe Morrisawaise on 03-08-2024 Erythrocyte distribution width (RBC) [Ratio] 14.1 % 11.6-14.6 [facility] Estimated glomerular filtrat ion rate (GFR) AmericanOrdered By: Joe Sanchez on 03-08-2024 Estimated GFR (MDRD) Amer 35 mL/min Low >60 [facility] Comment on above: GFR Calc Glomerular filtration rate ( GFR) estimationOrdered By: Joe Sanchez on 03-08-2024 Estimated GFR (MDRD) Non-Af Amer 29 mL/min Low >60 [facility] Comment on above: Non- GFR Calc Glucose measurementOrdered B y: Joe Sanchez on 03-08-2024 Glucose [Mass/Vol] 82 mg/dL 74-106 [facility] Hematocrit Auto (Bld) [Volum e fraction]Ordered By: Joe Sanchez on 03-08-2024 Hematocrit (Bld) [Volume fraction] 39.8 % 37-47 [facility] Hemoglobin measurementOrdere d By: Joe Sanchez on 03-08-2024 Hemoglobin (Bld) [Mass/Vol] 13.1 g/dL 12.0-15.0 [facility] Immature granulocytes/100 WB C Auto (Bld)Ordered By: montez Sanchez on 03-08-2024 Immature granulocytes/100 WBC (Bld) 1.300 % High 0.0-0.9 [facility] Comment on above: IG% - Immature Granu locytes (promyelocytes, myelocytes and metamyelocytes) > 1% indicates that a LEFT SHIFT is Present. Lymphocytes Auto (Unsp spec) [#/Vol]Ordered By: Joe Sanchez on 03-08-2024 Lymphocytes (Bld) [#/Vol] 1.69 10*3/uL 0.83-4.51 [facility] Lymphocytes/100 WBC Auto (Un sp spec)Ordered By: Joe Sanchez on 03-08-2024 Lymphocytes/100 WBC (Bld) 19.6 % 19-41 [facility] MCV (mean corpuscular volume ) determinationOrdered By: Joe Sanchez on 03-08-2024 MCV (RBC) [Entitic vol] 97.3 fL 81-99 [facility] Mean corpuscular hemoglobin (MCH) determinationOrdered By: Joe Sanchez on 03-08-2024 MCH (RBC) [Entitic mass] 32.0 pg 27.0-32.0 [facility] Mean corpuscular hemoglobin concentration (MCHC) determinationOrdered By: Joe Sanchez on 03-08-2024 MCHC (RBC) [Mass/Vol] 32.9 g/dL 32-36 [facility] Mean platelet volume determi nationOrdered By: Joe Sanchez on 03-08-2024 Platelet mean volume (Bld) [Entitic vol] 11.9 fL 6.2-12.0 [facility] Monocyte percentageOrdered B y: Joe Sanchez on 03-08-2024 Monocytes/100 WBC (Bld) 10.9 % High 0-10 [facility] Neutrophil percentageOrdered By: Joe Sanchez on 03-08-2024 Neutrophils/100 WBC (Bld) 63.3 % 47-70 [facility] Nucleated red blood cell per centageOrdered By: Joe Sanchez on 03-08-2024 Nucleated RBC/100 WBC (Bld) [Ratio] 0 % 0-5 [facility] Platelet countOrdered By: Lluvia Sanchez on 03-08-2024 Platelets (Bld) [#/Vol] 232 10*3/uL 150-450 [facility] Potassium measurementOrdered By: Joe Sanchez on 03-08-2024 Potassium [Moles/Vol] 4.1 mmol/L 3.5-5.1 [facility] RBC Auto (Bld) [#/Vol]Ordere d By: Joaquinbe Daniel on 03-08-2024 RBC (Bld) [#/Vol] 4.09 10*6/uL Low 4.2-5.4 [facility] Serum anion gap measurementO rdered By: Joe Sanchez on 03-08-2024 Anion gap [Moles/Vol] 9 mmol/L 5-15 [facility] Serum or plasma calcium leah urement (mass/volume)Ordered By: Joe Sanchez on 03-08-2024 Calcium [Mass/Vol] 9.6 mg/dL 8.5-10.1 [facility] Serum or plasma creatinine m easurement (mass/volume)Ordered By: Joe Sanchez on 03-08-2024 Creatinine [Mass/Vol] 1.79 mg/dL High 0.55-1.02 [facility] Comment on above: The validity of the calculated GFR & GFRAA in patients over 70 years has not been determined. Clinical correlation is essential. Serum or plasma urea nitroge n measurement (mass/volume)Ordered By: Joe Sanchez on 03-08-2024 Urea nitrogen [Mass/Vol] 24 mg/dL High 7-18 [facility] Sodium levelOrdered By: Yudi kayleigh Daniel on 03-08-2024 Sodium [Moles/Vol] 134 mmol/L Low 136-145 [facility] White blood cell (WBC) count Ordered By: Joe Sanchez on 03-08-2024 WBC (Bld) [#/Vol] 8.6 10*3/uL 4.4-11.0 [facility] Absolute neutrophil countOrd ered By: Joe Sanchez on 03-01-2024 Neutrophils (Bld) [#/Vol] 5.1 10*3/uL 2.0-7.7 [facility] Basophil percentageOrdered B y: Joe Sanchez on 03-01-2024 Basophils/100 WBC (Bld) 1.6 % High 0-1 [facility] Blood urea nitrogen (BUN)/cr eatinine ratioOrdered By: Joe Sanchez on 03-01-2024 Urea nitrogen/Creatinine [Mass ratio] 15.9 mg/mg 10- [facility] Carbon dioxide measurementOr dered By: Joe Sanchez on 03-01-2024 CO2 [Moles/Vol] 26.0 mmol/L 21.0-32.0 [facility] Chloride measurementOrdered By: Joe Sanchez on 03-01-2024 Chloride [Moles/Vol] 101 mmol/L 98-107 [facility] Eosinophil percentageOrdered By: Joe Sanchez on 03-01-2024 Eosinophils/100 WBC (Bld) 3.2 % 0-5 [facility] Erythrocyte distribution wid th (RBC) [Ratio]Ordered By: Joe Sanchez on 03-01-2024 Erythrocyte distribution width (RBC) [Entitic vol] 49.1 fL High 35.1-43.9 [facility] Erythrocyte distribution wid th ratioOrdered By: Joe Sanchez on 03-01-2024 Erythrocyte distribution width (RBC) [Ratio] 14.0 % 11.6-14.6 [facility] Estimated glomerular filtrat ion rate (GFR) AmericanOrdered By: montez Sanchez on 03-01-2024 Estimated GFR (MDRD) Amer 30 mL/min Low >60 [facility] Comment on above: GFR Calc Glomerular filtration rate ( GFR) estimationOrdered By: Joe Sanchez on 03-01-2024 Estimated GFR (MDRD) Non-Af Amer 25 mL/min Low >60 [facility] Comment on above: Non- GFR Calc Glucose measurementOrdered B y: Lluviaclaudiomelissalynnette Sanchez on 03-01-2024 Glucose [Mass/Vol] 101 mg/dL 74-106 [facility] Comment on above: Fasting Glucose resu lt from 100 to 125 mg/dL suggests IMPAIRED HOMEOSTASIS per A.D.A. criteria. Hematocrit Auto (Bld) [Volum e fraction]Ordered By: Joe Sanchez on 03-01-2024 Hematocrit (Bld) [Volume fraction] 37.7 % 37-47 [facility] Hemoglobin measurementOrdere d By: Joe Sanchez on 03-01-2024 Hemoglobin (Bld) [Mass/Vol] 12.6 g/dL 12.0-15.0 [facility] Immature granulocytes/100 WB C Auto (Bld)Ordered By: Joe Sanchez on 03-01-2024 Immature granulocytes/100 WBC (Bld) 1.200 % High 0.0-0.9 [facility] Comment on above: IG% - Immature Granu locytes (promyelocytes, myelocytes and metamyelocytes) > 1% indicates that a LEFT SHIFT is Present. Lymphocytes Auto (Unsp spec) [#/Vol]Ordered By: Joe Chaumilton on 03-01-2024 Lymphocytes (Bld) [#/Vol] 1.56 10*3/uL 0.83-4.51 [facility] Lymphocytes/100 WBC Auto (Un sp spec)Ordered By: Joe Chaue on 03-01-2024 Lymphocytes/100 WBC (Bld) 19.0 % 19-41 [facility] MCV (mean corpuscular volume ) determinationOrdered By: Joe Arturoawaismilton on 03-01-2024 MCV (RBC) [Entitic vol] 96.2 fL 81-99 [facility] Mean corpuscular hemoglobin (MCH) determinationOrdered By: Lluviaclaudiomelissalynnette Morrisawaismilton on 03-01-2024 MCH (RBC) [Entitic mass] 32.1 pg High 27.0-32.0 [facility] Mean corpuscular hemoglobin concentration (MCHC) determinationOrdered By: Joe Morrisawaismilton on 03-01-2024 MCHC (RBC) [Mass/Vol] 33.4 g/dL 32-36 [facility] Mean platelet volume determi nationOrdered By: Joe Arturoawaismilton on 03-01-2024 Platelet mean volume (Bld) [Entitic vol] 12.0 fL 6.2-12.0 [facility] Monocyte percentageOrdered B y: Joe Chaumilton on 03-01-2024 Monocytes/100 WBC (Bld) 12.9 % High 0-10 [facility] Neutrophil percentageOrdered By: Lluviaclaudiokayleigh Chaumilton on 03-01-2024 Neutrophils/100 WBC (Bld) 62.1 % 47-70 [facility] Nucleated red blood cell per centageOrdered By: Joe Arturoawaismilton on 03-01-2024 Nucleated RBC/100 WBC (Bld) [Ratio] 0 % 0-5 [facility] Platelet countOrdered By: Ef montez Arturoawaismilton on 03-01-2024 Platelets (Bld) [#/Vol] 212 10*3/uL 150-450 [facility] Potassium measurementOrdered By: Lluviaclaudiomelissalynnette Morrisawaismilton on 03-01-2024 Potassium [Moles/Vol] 4.1 mmol/L 3.5-5.1 [facility] RBC Auto (Bld) [#/Vol]Ordere d By: Joe Sanchez on 03-01-2024 RBC (Bld) [#/Vol] 3.92 10*6/uL Low 4.2-5.4 [facility] Serum anion gap measurementO rdered By: Joe Sanchez on 03-01-2024 Anion gap [Moles/Vol] 8 mmol/L 5-15 [facility] Serum or plasma calcium leah urement (mass/volume)Ordered By: Joe Morrisawaismilton on 03-01-2024 Calcium [Mass/Vol] 9.6 mg/dL 8.5-10.1 [facility] Serum or plasma creatinine m easurement (mass/volume)Ordered By: Lluviaclaudiomelissalynnette Morrisawaismilton on 03-01-2024 Creatinine [Mass/Vol] 2.01 mg/dL High 0.55-1.02 [facility] Comment on above: The validity of the calculated GFR & GFRAA in patients over 70 years has not been determined. Clinical correlation is essential. Serum or plasma urea nitroge n measurement (mass/volume)Ordered By: Lluviaclaudiomelissalynnette Morrishnas on 03-01-2024 Urea nitrogen [Mass/Vol] 32 mg/dL High -18 [facility] Sodium levelOrdered By: Yudi Sanchez on 03-01-2024 Sodium [Moles/Vol] 136 mmol/L 136-145 [facility] White blood cell (WBC) count Ordered By: Lluviaclaudiomelissalynnette Morrisawaismilton on 03-01-2024 WBC (Bld) [#/Vol] 8.2 10*3/uL 4.4-11.0 [facility] Cardiology Visit Reporton Cardiology Visit Report Normal [facility] Gastroenterology Visit Repor ton 01-18-2024 Gastroenterology Visit Report Normal [facility] CBC W/Diff, Automatedon 12-19 PATH REV Reviewed Normal [facility] Comment on above: Result Comment: Neut rophilic leukocytosis.REACTIVE LYMPHOCYTES PRESENTArun Mahesh King 01/11/24 AMENDED REPORT 01/11/24 2797 PATH REV previously reported as: July Performed By: #### L 100.0100, L500.2500 ####[facility] [address] [place], [address] Basic Metabolic Profile (BMP )on 01-10-2024 BUN/CRE 24.4 RATIO High 10-20 [facility] Comment on above: Performed By: #### L 100.0100, L500.2500 ####[facility] [address] [place], [address] CA,Total 9.5 mg/dL Normal 8.5-10.1 [facility] Comment on above: Performed By: #### L 100.0100, L500.2500 ####[facility] [address] [place], [address] Chloride [Moles/Vol] 99 mmol/L Normal 98-107 [facility] Comment on above: Performed By: #### L 100.0100, L500.2500 ####[facility] [address] [place], [address] CO2 [Moles/Vol] 25.0 mmol/L Normal 21.0-32.0 [facility] Comment on above: Performed By: #### L 100.0100, L500.2500 ####[facility] [address] [place], [address] Creatinine [Mass/Vol] 1.60 mg/dL High 0.55-1.02 [facility] Comment on above: Result Comment: The validity of the calculated GFR GFRAA in patients over70 years has not been determined. Clinical correlation isessential. Performed By: #### L 100.0100, L500.2500 ####[facility] [address] [place], [address] ECRCL 31.06 ml/min Normal [facility] Comment on above: Performed By: #### L 100.0100, L500.2500 ####[facility] [address] [place], [address] EST GFR - AA 40 mL/min Low >60 [facility] Comment on above: Result Comment: Afri can Cypriot GFR Calc Performed By: #### L 100.0100, L500.2500 ####[facility] [address] [place], [address] GAP 7 Normal 5-15 [facility] Comment on above: Performed By: #### L 100.0100, L500.2500 ####[facility] [address] [place], [address] GFR/1.73 sq M.predicted among non-blacks MDRD (S/P/Bld) [Vol rate/Area] 33 mL/min/{1.73_m2} Low >60 [facility] Comment on above: Result Comment: Non- GFR Calc Performed By: #### L 100.0100, L500.2500 ####[facility] [address] [place], [address] Glucose [Mass/Vol] 116 mg/dL High 74-106 [facility] Comment on above: Result Comment: Fast ing Glucose result from 100 to 125 mg/dLsuggests IMPAIRED HOMEOSTASIS per A.D.A. criteria. Performed By: #### L 100.0100, L500.2500 ####[facility] [address] [place], [address] Potassium [Moles/Vol] 4.4 mmol/L Normal 3.5-5.1 [facility] Comment on above: Performed By: #### L 100.0100, L500.2500 ####[facility] [address] [place], [address] Sodium [Moles/Vol] 131 mmol/L Low 136-145 [facility] Comment on above: Performed By: #### L 100.0100, L500.2500 ####[facility] [address] [place], [address] Urea nitrogen [Mass/Vol] 39 mg/dL High - [facility] Comment on above: Performed By: #### L 100.0100, L500.2500 ####[facility] [address] [place], [address] Basic Metabolic Profile (BMP )on 01-08-2024 BUN/CRE 21.1 RATIO High - [facility] Comment on above: Order Comment: REDRA W. PREVIOUS SPECIMEN REJECTED DUE TOHEMOLYSIS. 01/08/24742 Preet Vizcarra. Performed By: #### L 500.2500 ####[facility] [address] [place], [address] CA,Total 9.3 mg/dL Normal 8.5-10.1 [facility] Comment on above: Order Comment: REDRA W. PREVIOUS SPECIMEN REJECTED DUE TOHEMOLYSIS. 01/08/2443 Preet Vizcarra. Performed By: #### L 500.2500 ####[facility] [address] [place], [address] Chloride [Moles/Vol] 101 mmol/L Normal 98-107 [facility] Comment on above: Order Comment: REDRA W. PREVIOUS SPECIMEN REJECTED DUE TOHEMOLYSIS. 01/08/2443 Preet Vizcarra. Performed By: #### L 500.2500 ####[facility] [address] [place], [address] CO2 [Moles/Vol] 25.0 mmol/L Normal 21.0-32.0 [facility] Comment on above: Order Comment: REDRA W. PREVIOUS SPECIMEN REJECTED DUE TOHEMOLYSIS. 01/08/2443 Preet Vizcarra. Performed By: #### L 500.2500 ####[facility] [address] [place], [address] Creatinine [Mass/Vol] 1.28 mg/dL High 0.55-1.02 [facility] Comment on above: Order Comment: REDRA W. PREVIOUS SPECIMEN REJECTED DUE TOHEMOLYSIS. 01/08/24742 Preet Vizcarra. Result Comment: The validity of the calculated GFR GFRAA in patients over70 years has not been determined. Clinical correlation isessential. Performed By: #### L 500.2500 ####[facility] [address] [place], [address] ECRCL 38.87 ml/min Normal [facility] Comment on above: Order Comment: REDRA W. PREVIOUS SPECIMEN REJECTED DUE TOHEMOLYSIS. 01/08/24742 Preet Vizcarra. Performed By: #### L 500.2500 ####[facility] [address] [place], [address] EST GFR - AA 51 mL/min Low >60 [facility] Comment on above: Order Comment: REDRA W. PREVIOUS SPECIMEN REJECTED DUE TOHEMOLYSIS. 01/08/24742 Preet Vizcarra. Result Comment: Afri can Cypriot GFR Calc Performed By: #### L 500.2500 ####[facility] [address] [place], [address] GAP 8 Normal 5-15 [facility] Comment on above: Order Comment: REDRA W. PREVIOUS SPECIMEN REJECTED DUE TOHEMOLYSIS. 01/08/24742 Preet Vizcarra. Performed By: #### L 500.2500 ####[facility] [address] [place], [address] GFR/1.73 sq M.predicted among non-blacks MDRD (S/P/Bld) [Vol rate/Area] 42 mL/min/{1.73_m2} Low >60 [facility] Comment on above: Order Comment: REDRA W. PREVIOUS SPECIMEN REJECTED DUE TOHEMOLYSIS. 01/08/24742 Preet Vizcarra. Result Comment: Non- GFR Calc Performed By: #### L 500.2500 ####[facility] [address] [place], [address] Glucose [Mass/Vol] 106 mg/dL Normal 74-106 [facility] Comment on above: Order Comment: REDRA W. PREVIOUS SPECIMEN REJECTED DUE TOHEMOLYSIS. 01/08/24742 Preet Vizcarra. Result Comment: Fast ing Glucose result from 100 to 125 mg/dLsuggests IMPAIRED HOMEOSTASIS per A.D.A. criteria. Performed By: #### L 500.2500 ####[facility] [address] [place], [address] Potassium [Moles/Vol] 4.5 mmol/L Normal 3.5-5.1 [facility] Comment on above: Order Comment: REDRA W. PREVIOUS SPECIMEN REJECTED DUE TOHEMOLYSIS. 01/08/24742 Preet Vizcarra. Performed By: #### L 500.2500 ####[facility] [address] [place], [address] Sodium [Moles/Vol] 135 mmol/L Low 136-145 [facility] Comment on above: Order Comment: REDRA W. PREVIOUS SPECIMEN REJECTED DUE TOHEMOLYSIS. 01/08/24742 Preet Vizcarra. Performed By: #### L 500.2500 ####[facility] [address] [place], [address] Urea nitrogen [Mass/Vol] 27 mg/dL High - [facility] Comment on above: Order Comment: REDRA W. PREVIOUS SPECIMEN REJECTED DUE TOHEMOLYSIS. 01/08/24742 Preet Vizcarra. Performed By: #### L 500.2500 ####[facility] [address] [place], [address] BUN Normal - [facility] Comment on above: Result Comment: This specimen has been REJECTED due to Laboratory criteria:Hemolyzed.PHLEBOTOMISTS has been notified of need of recollection.01/08/24742 Preet Vizcarra Performed By: #### L 500.2500 ####[facility] [address] [place], [address] BUN/CRE Normal -20 [facility] Comment on above: Result Comment: This specimen has been REJECTED due to Laboratory criteria:Hemolyzed.PHLEBOTOMISTS has been notified of need of recollection.01/08/24742 Preet L White Performed By: #### L 500.2500 ####[facility] [address] [place], [address] CA,Total Normal 8.5-10.1 [facility] Comment on above: Result Comment: This specimen has been REJECTED due to Laboratory criteria:Hemolyzed.PHLEBOTOMISTS has been notified of need of recollection.01/08/24742 Preet L White Performed By: #### L 500.2500 ####[facility] [address] [place], [address] CL Normal 98-107 [facility] Comment on above: Result Comment: This specimen has been REJECTED due to Laboratory criteria:Hemolyzed.PHLEBOTOMISTS has been notified of need of recollection.01/08/24742 Preet L White Performed By: #### L 500.2500 ####[facility] [address] [place], [address] CO2 Normal 21.0-32.0 [facility] Comment on above: Result Comment: This specimen has been REJECTED due to Laboratory criteria:Hemolyzed.PHLEBOTOMISTS has been notified of need of recollection.01/08/24742 Preet L White Performed By: #### L 500.2500 ####[facility] [address] [place], [address] CREAT,SERUM Normal 0.55-1.02 [facility] Comment on above: Result Comment: This specimen has been REJECTED due to Laboratory criteria:Hemolyzed.PHLEBOTOMISTS has been notified of need of recollection.01/08/24742 Preet L White Performed By: #### L 500.2500 ####[facility] [address] [place], [address] EST GFR Normal >60 [facility] Comment on above: Result Comment: This specimen has been REJECTED due to Laboratory criteria:Hemolyzed.PHLEBOTOMISTS has been notified of need of recollection.01/08/24742 Preet L White Performed By: #### L 500.2500 ####[facility] [address] [place], [address] EST GFR - AA Normal >60 [facility] Comment on above: Result Comment: This specimen has been REJECTED due to Laboratory criteria:Hemolyzed.PHLEBOTOMISTS has been notified of need of recollection.01/08/24742 Preet L White Performed By: #### L 500.2500 ####[facility] [address] [facility] [address] GAP Normal 5-15 [facility] Comment on above: Result Comment: This specimen has been REJECTED due to Laboratory criteria:Hemolyzed.PHLEBOTOMISTS has been notified of need of recollection.01/08/24742 Preet L White Performed By: #### L 500.2500 ####[facility] [address] [place], [address] GLU Normal 74-106 [facility] Comment on above: Result Comment: This specimen has been REJECTED due to Laboratory criteria:Hemolyzed.PHLEBOTOMISTS has been notified of need of recollection.01/08/24742 Preet L White Performed By: #### L 500.2500 ####[facility] [address] [facility] [address] Potassium Normal 3.5-5.1 [facility] Comment on above: Result Comment: This specimen has been REJECTED due to Laboratory criteria:Hemolyzed.PHLEBOTOMISTS has been notified of need of recollection.01/08/24742 Preet L White Performed By: #### L 500.2500 ####[facility] [address] [place], [address] Basic Metabolic Profile (BMP) Normal 136-145 [facility] Comment on above: Result Comment: This specimen has been REJECTED due to Laboratory criteria:Hemolyzed.PHLEBOTOMISTS has been notified of need of recollection.01/08/24 0743 Preet Radford Carmita Performed By: #### L 500.2500 ####[facility] [address] [place], [address] Basic Metabolic Profile (BMP )on 01-07-2024 BUN/CRE 22.3 RATIO High 01-06 [facility] Comment on above: Performed By: #### L 100.0100, L500.2500 ####[facility] [address] [place], [address] CA,Total 9.6 mg/dL Normal 8.5-10.1 [facility] Comment on above: Performed By: #### L 100.0100, L500.2500 ####[facility] [address] [place], [address] Chloride [Moles/Vol] 105 mmol/L Normal 98-107 [facility] Comment on above: Performed By: #### L 100.0100, L500.2500 ####[facility] [address] [place], [address] CO2 [Moles/Vol] 24.0 mmol/L Normal 21.0-32.0 [facility] Comment on above: Performed By: #### L 100.0100, L500.2500 ####[facility] [address] [place], [address] Creatinine [Mass/Vol] 1.39 mg/dL High 0.55-1.02 [facility] Comment on above: Result Comment: The validity of the calculated GFR GFRAA in patients over70 years has not been determined. Clinical correlation isessential. Performed By: #### L 100.0100, L500.2500 ####[facility] [address] [place], [address] ECRCL 35.49 ml/min Normal [facility] Comment on above: Performed By: #### L 100.0100, L500.2500 ####[facility] [address] [place], [address] EST GFR - AA 47 mL/min Low >60 [facility] Comment on above: Result Comment: Afri can Cypriot GFR Calc Performed By: #### L 100.0100, L500.2500 ####[facility] [address] [place], [address] GAP 7 Normal 5-15 [facility] Comment on above: Performed By: #### L 100.0100, L500.2500 ####[facility] [address] [place], [address] GFR/1.73 sq M.predicted among non-blacks MDRD (S/P/Bld) [Vol rate/Area] 39 mL/min/{1.73_m2} Low >60 [facility] Comment on above: Result Comment: Non- GFR Calc Performed By: #### L 100.0100, L500.2500 ####[facility] [address] [place], [address] Glucose [Mass/Vol] 106 mg/dL Normal 74-106 [facility] Comment on above: Result Comment: Fast ing Glucose result from 100 to 125 mg/dLsuggests IMPAIRED HOMEOSTASIS per A.D.A. criteria. Performed By: #### L 100.0100, L500.2500 ####[facility] [address] [place], [address] Potassium [Moles/Vol] 4.3 mmol/L Normal 3.5-5.1 [facility] Comment on above: Performed By: #### L 100.0100, L500.2500 ####[facility] [address] [place], [address] Sodium [Moles/Vol] 136 mmol/L Normal 136-145 [facility] Comment on above: Performed By: #### L 100.0100, L500.2500 ####[facility] [address] [place], [address] Urea nitrogen [Mass/Vol] 31 mg/dL High 7-18 [facility] Comment on above: Performed By: #### L 100.0100, L500.2500 ####[facility] [address] [place], [address] Brain/Head without Contrasto n --2023 Brain/Head without Contrast Normal [facility] CBC W/Diff, Automatedon 10- 0-2023 Absolute Lymph 1.42 X10 3/uL Normal 0.83-4.51 [facility] Comment on above: Performed By: #### L 100.0100, L500.2500 ####[facility] [address] [place], [address] Absolute Neut 7.4 X10 3/uL Normal 2.0-7.7 [facility] Comment on above: Performed By: #### L 100.0100, L500.2500 ####[facility] [address] [place], [address] Basophils/100 WBC (Bld) 0.9 % Normal 0-1 [facility] Comment on above: Performed By: #### L 100.0100, L500.2500 ####[facility] [address] [place], [address] Eosinophils/100 WBC (Bld) 0.3 % Normal 0-5 [facility] Comment on above: Performed By: #### L 100.0100, L500.2500 ####[facility] [address] [place], [address] Erythrocyte distribution width (RBC) [Ratio] 13.5 % Normal 11.6-14.6 [facility] Comment on above: Performed By: #### L 100.0100, L500.2500 ####[facility] [address] [place], [address] Hematocrit (Bld) [Volume fraction] 45.3 % Normal 37-47 [facility] Comment on above: Performed By: #### L 100.0100, L500.2500 ####[facility] [address] [place], [address] Hemoglobin (Bld) [Mass/Vol] 15.0 g/dL Normal 12.0-15.0 [facility] Comment on above: Performed By: #### L 100.0100, L500.2500 ####[facility] [address] [place], [address] IG% 0.600 Normal 0.0-0.9 [facility] Comment on above: Result Comment: IG% - Immature Granulocytes (promyelocytes, myelocytes andmetamyelocytes) > 1% indicates that a LEFT SHIFT is Present. Performed By: #### L 100.0100, L500.2500 ####[facility] [address] [place], [address] Lymphocytes/100 WBC (Bld) 14.2 % Low 19-41 [facility] Comment on above: Performed By: #### L 100.0100, L500.2500 ####[facility] [address] [place], [address] MCH (RBC) [Entitic mass] 32.3 pg High 27.0-32.0 [facility] Comment on above: Performed By: #### L 100.0100, L500.2500 ####[facility] [address] [place], [address] MCHC (RBC) [Mass/Vol] 33.1 g/dL Normal 32-36 [facility] Comment on above: Performed By: #### L 100.0100, L500.2500 ####[facility] [address] [place], [address] MCV (RBC) [Entitic vol] 97.4 fL Normal 81-99 [facility] Comment on above: Performed By: #### L 100.0100, L500.2500 ####[facility] [address] [place], [address] Monocytes/100 WBC (Bld) 9.8 % Normal 0-10 [facility] Comment on above: Performed By: #### L 100.0100, L500.2500 ####[facility] [address] [place], [address] Neutrophils/100 WBC (Bld) 74.2 % High 47-70 [facility] Comment on above: Performed By: #### L 100.0100, L500.2500 ####[facility] [address] [place], [address] Nucleated RBC (Bld) [#/Vol] 0 10*3/uL Normal 0-5 [facility] Comment on above: Performed By: #### L 100.0100, L500.2500 ####[facility] [address] [place], [address] Platelet mean volume (Bld) [Entitic vol] 12.1 fL High 6.2-12.0 [facility] Comment on above: Performed By: #### L 100.0100, L500.2500 ####[facility] [address] [place], [address] Platelets (Bld) [#/Vol] 193 10*3/uL Normal 150-450 [facility] Comment on above: Performed By: #### L 100.0100, L500.2500 ####[facility] [address] [place], [address] RBC (Bld) [#/Vol] 4.65 10*6/uL Normal 4.2-5.4 [facility] Comment on above: Performed By: #### L 100.0100, L500.2500 ####[facility] [address] [place], [address] RDW SD 48.4 fl High 35.1-43.9 [facility] Comment on above: Performed By: #### L 100.0100, L500.2500 ####[facility] [address] [place], [address] WBC (Bld) [#/Vol] 10.0 10*3/uL Normal 4.4-11.0 [facility] Comment on above: Performed By: #### L 100.0100, L500.2500 ####[facility] [address] [place], [address] Carotid Duplex Ultrasoundon 01-07-2024 Carotid Duplex Ultrasound Normal [facility] Ammoniaon 01-06-2024 Ammonia (P) [Mass/Vol] ug/dL Low 11-32 [facility] Comment on above: Performed By: #### L 503.5510 ####[facility] [address] [place], [address] [facility] Positive Normal [facility] Comment on above: Performed By: #### L 9000.0800 ####[facility] [address] [place], [address] Base excess Calc (Bld) [Moles/Vol] -1 mmol/L Normal -2 to +2 [facility] Comment on above: Performed By: #### L 9000.0800 ####[facility] [address] [place], [address] Blood Gas Type ART Normal [facility] Comment on above: Performed By: #### L 9000.0800 ####[facility] [address] [place], [address] CO2 [Moles/Vol] 23 mmol/L Normal [facility] Comment on above: Performed By: #### L 9000.0800 ####[facility] [address] [place], [address] HCO3 (Bld) [Moles/Vol] 22.4 mmol/L Normal 22-26 [facility] Comment on above: Performed By: #### L 0.0800 ####[facility] [address] [place], [address] Mode Not entered Normal [facility] Comment on above: Performed By: #### L 0.0800 ####[facility] [address] [place], [address] O2 Delivery Dev Room Air Normal [facility] Comment on above: Performed By: #### L 0.08 ####[facility] [address] [place], [address] pCO2 28.1 mmHg Low 35-45 [facility] Comment on above: Performed By: #### L 0.08 ####[facility] [address] [place], [address] pH (Bld) 7.51 [pH] High 7.35-7.45 [facility] Comment on above: Performed By: #### L 0.0800 ####[facility] [address] [place], [address] PO2 85 mmHG Normal 75-100 [facility] Comment on above: Performed By: #### L 0.0800 ####[facility] [address] [place], [address] SITE R Radial Normal [facility] Comment on above: Performed By: #### L 0.0800 ####[facility] [address] [place], [address] SO2 98 Normal 95-99 [facility] Comment on above: Performed By: #### L 0.0800 ####[facility] [address] [place], [address] CBC W/Diff, Automatedon 10- Absolute Lymph 0.62 X10 3/uL Low 0.83-4.51 [facility] Comment on above: Performed By: #### L 500.4050, L500.4100, L501.9520, L100.0100, L501.9985 ####[facility] [address] [place], [address] Absolute Neut 7.5 X10 3/uL Normal 2.0-7.7 [facility] Comment on above: Performed By: #### L 500.4050, L500.4100, L501.9520, L100.0100, L501.9985 ####[facility] [address] [place], [address] Basophils/100 WBC (Bld) 0.2 % Normal 0-1 [facility] Comment on above: Performed By: #### L 500.4050, L500.4100, L501.9520, L100.0100, L501.9985 ####[facility] [address] [place], [address] Eosinophils/100 WBC (Bld) 0.0 % Normal 0-5 [facility] Comment on above: Performed By: #### L 500.4050, L500.4100, L501.9520, L100.0100, L501.9985 ####[facility] [address] [place], [address] Erythrocyte distribution width (RBC) [Ratio] 13.4 % Normal 11.6-14.6 [facility] Comment on above: Performed By: #### L 500.4050, L500.4100, L501.9520, L100.0100, L501.9985 ####[facility] [address] [place], [address] Hematocrit (Bld) [Volume fraction] 44.3 % Normal 37-47 [facility] Comment on above: Performed By: #### L 500.4050, L500.4100, L501.9520, L100.0100, L501.9985 ####[facility] [address] [place], [address] Hemoglobin (Bld) [Mass/Vol] 14.6 g/dL Normal 12.0-15.0 [facility] Comment on above: Performed By: #### L 500.4050, L500.4100, L501.9520, L100.0100, L501.9985 ####[facility] [address] [place], [address] IG% 0.900 Normal 0.0-0.9 [facility] Comment on above: Result Comment: IG% - Immature Granulocytes (promyelocytes, myelocytes andmetamyelocytes) > 1% indicates that a LEFT SHIFT is Present. Performed By: #### L 500.4050, L500.4100, L501.9520, L100.0100, L501.9985 ####[facility] [address] [place], [address] Lymphocytes/100 WBC (Bld) 7.4 % Low 19-41 [facility] Comment on above: Performed By: #### L 500.4050, L500.4100, L501.9520, L100.0100, L501.9985 ####[facility] [address] [place], [address] MCH (RBC) [Entitic mass] 32.1 pg High 27.0-32.0 [facility] Comment on above: Performed By: #### L 500.4050, L500.4100, L501.9520, L100.0100, L501.9985 ####[facility] [address] [place], [address] MCHC (RBC) [Mass/Vol] 33.0 g/dL Normal 32-36 [facility] Comment on above: Performed By: #### L 500.4050, L500.4100, L501.9520, L100.0100, L501.9985 ####[facility] [address] [place], [address] MCV (RBC) [Entitic vol] 97.4 fL Normal 81-99 [facility] Comment on above: Performed By: #### L 500.4050, L500.4100, L501.9520, L100.0100, L501.9985 ####[facility] [address] [place], [address] Monocytes/100 WBC (Bld) 2.5 % Normal 0-10 [facility] Comment on above: Performed By: #### L 500.4050, L500.4100, L501.9520, L100.0100, L501.9985 ####[facility] [address] [place], [address] Neutrophils/100 WBC (Bld) 89.0 % High 47-70 [facility] Comment on above: Performed By: #### L 500.4050, L500.4100, L501.9520, L100.0100, L501.9985 ####[facility] [address] [place], [address] Nucleated RBC (Bld) [#/Vol] 0 10*3/uL Normal 0-5 [facility] Comment on above: Performed By: #### L 500.4050, L500.4100, L501.9520, L100.0100, L501.9985 ####[facility] [address] [place], [address] Platelet mean volume (Bld) [Entitic vol] 12.4 fL High 6.2-12.0 [facility] Comment on above: Performed By: #### L 500.4050, L500.4100, L501.9520, L100.0100, L501.9985 ####[facility] [address] [place], [address] Platelets (Bld) [#/Vol] 188 10*3/uL Normal 150-450 [facility] Comment on above: Performed By: #### L 500.4050, L500.4100, L501.9520, L100.0100, L501.9985 ####[facility] [address] [place], [address] RBC (Bld) [#/Vol] 4.55 10*6/uL Normal 4.2-5.4 [facility] Comment on above: Performed By: #### L 500.4050, L500.4100, L501.9520, L100.0100, L501.9985 ####[facility] [address] [place], [address] RDW SD 48.2 fl High 35.1-43.9 [facility] Comment on above: Performed By: #### L 500.4050, L500.4100, L501.9520, L100.0100, L501.9985 ####[facility] [address] [place], [address] WBC (Bld) [#/Vol] 8.4 10*3/uL Normal 4.4-11.0 [facility] Comment on above: Performed By: #### L 500.4050, L500.4100, L501.9520, L100.0100, L501.9985 ####[facility] [address] [place], [address] Comprehensive Metabolic Prof ilon 01-06-2024 Albumin [Mass/Vol] 3.3 g/dL Normal 3.2-5.0 [facility] Comment on above: Order Comment: Comme nts: NPO at [place] prior to lipid panel Performed By: #### L 500.4050, L500.4100, L501.9520, L100.0100, L501.9985 ####[facility] [address] [place], [address] Albumin/Globulin [Mass ratio] 0.9 {ratio} Normal 0.9-2.4 [facility] Comment on above: Order Comment: Comme nts: NPO at [place] prior to lipid panel Performed By: #### L 500.4050, L500.4100, L501.9520, L100.0100, L501.9985 ####[facility] [address] [place], [address] ALK P 55 U/L Normal 45-117 [facility] Comment on above: Order Comment: Comme nts: NPO at [place] prior to lipid panel Performed By: #### L 500.4050, L500.4100, L501.9520, L100.0100, L501.9985 ####[facility] [address] [place], [address] ALT [Catalytic activity/Vol] 17 U/L Normal 13-56 [facility] Comment on above: Order Comment: Comme nts: NPO at [place] prior to lipid panel Performed By: #### L 500.4050, L500.4100, L501.9520, L100.0100, L501.9985 ####[facility] [address] [place], [address] AST [Catalytic activity/Vol] 19 U/L Normal 15-37 [facility] Comment on above: Order Comment: Comme nts: NPO at [place] prior to lipid panel Performed By: #### L 500.4050, L500.4100, L501.9520, L100.0100, L501.9985 ####[facility] [address] [place], [address] Bilirubin [Mass/Vol] 1.30 mg/dL High 0.20-1.00 [facility] Comment on above: Order Comment: Comme nts: NPO at [place] prior to lipid panel Result Comment: For patients on eltrombopag therapy, use of Dimension [place] TBIL is not recommended. Performed By: #### L 500.4050, L500.4100, L501.9520, L100.0100, L501.9985 ####[facility] [address] [place], [address] BUN/CRE 22.9 RATIO High 10-20 [facility] Comment on above: Order Comment: Comme nts: NPO at [place] prior to lipid panel Performed By: #### L 500.4050, L500.4100, L501.9520, L100.0100, L501.9985 ####[facility] [address] [place], [address] CA,Total 9.6 mg/dL Normal 8.5-10.1 [facility] Comment on above: Order Comment: Comme nts: NPO at [place] prior to lipid panel Performed By: #### L 500.4050, L500.4100, L501.9520, L100.0100, L501.9985 ####[facility] [address] [place], [address] Chloride [Moles/Vol] 108 mmol/L High 98-107 [facility] Comment on above: Order Comment: Comme nts: NPO at [place] prior to lipid panel Performed By: #### L 500.4050, L500.4100, L501.9520, L100.0100, L501.9985 ####[facility] [address] [place], [address] CO2 [Moles/Vol] 24.0 mmol/L Normal 21.0-32.0 [facility] Comment on above: Order Comment: Comme nts: NPO at [place] prior to lipid panel Performed By: #### L 500.4050, L500.4100, L501.9520, L100.0100, L501.9985 ####[facility] [address] [place], [address] Creatinine [Mass/Vol] 1.44 mg/dL High 0.55-1.02 [facility] Comment on above: Order Comment: Comme nts: NPO at [place] prior to lipid panel Result Comment: The validity of the calculated GFR GFRAA in patients over70 years has not been determined. Clinical correlation isessential. Performed By: #### L 500.4050, L500.4100, L501.9520, L100.0100, L501.9985 ####[facility] [address] [place], [address] ECRCL 34.35 ml/min Normal [facility] Comment on above: Order Comment: Comme nts: NPO at [place] prior to lipid panel Performed By: #### L 500.4050, L500.4100, L501.9520, L100.0100, L501.9985 ####[facility] [address] [place], [address] EST GFR - AA 45 mL/min Low >60 [facility] Comment on above: Order Comment: Comme nts: NPO at [place] prior to lipid panel Result Comment: Afri can Cypriot GFR Calc Performed By: #### L 500.4050, L500.4100, L501.9520, L100.0100, L501.9985 ####[facility] [address] [place], [address] GAP 7 Normal 5-15 [facility] Comment on above: Order Comment: Comme nts: NPO at [place] prior to lipid panel Performed By: #### L 500.4050, L500.4100, L501.9520, L100.0100, L501.9985 ####[facility] [address] [place], [address] GFR/1.73 sq M.predicted among non-blacks MDRD (S/P/Bld) [Vol rate/Area] 37 mL/min/{1.73_m2} Low >60 [facility] Comment on above: Order Comment: Comme nts: NPO at [place] prior to lipid panel Result Comment: Non- GFR Calc Performed By: #### L 500.4050, L500.4100, L501.9520, L100.0100, L501.9985 ####[facility] [address] [place], [address] Globulin (S) [Mass/Vol] 3.6 g/dL Normal 2.2-4.2 [facility] Comment on above: Order Comment: Comme nts: NPO at [place] prior to lipid panel Performed By: #### L 500.4050, L500.4100, L501.9520, L100.0100, L501.9985 ####[facility] [address] [place], [address] Glucose [Mass/Vol] 138 mg/dL High 74-106 [facility] Comment on above: Order Comment: Comme nts: NPO at [place] prior to lipid panel Result Comment: Fast ing Glucose result greater than or equal to 126 mg/dLsuggests DIABETES MELLITUS per A.D.A. criteria. Performed By: #### L 500.4050, L500.4100, L501.9520, L100.0100, L501.9985 ####[facility] [address] [place], [address] Potassium [Moles/Vol] 4.6 mmol/L Normal 3.5-5.1 [facility] Comment on above: Order Comment: Comme nts: NPO at [place] prior to lipid panel Performed By: #### L 500.4050, L500.4100, L501.9520, L100.0100, L501.9985 ####[facility] [address] [place], [address] Sodium [Moles/Vol] 139 mmol/L Normal 136-145 [facility] Comment on above: Order Comment: Comme nts: NPO at [place] prior to lipid panel Performed By: #### L 500.4050, L500.4100, L501.9520, L100.0100, L501.9985 ####[facility] [address] [place], [address] T PROT 6.9 g/dL Normal 6.4-8.2 [facility] Comment on above: Order Comment: Comme nts: NPO at [place] prior to lipid panel Performed By: #### L 500.4050, L500.4100, L501.9520, L100.0100, L501.9985 ####[facility] [address] [place], [address] Urea nitrogen [Mass/Vol] 33 mg/dL High 7-18 [facility] Comment on above: Order Comment: Comme nts: NPO at [place] prior to lipid panel Performed By: #### L 500.4050, L500.4100, L501.9520, L100.0100, L501.9985 ####[facility] [address] [place], [address] Hemoglobin A1con 01-06-2024 HbA1c (Bld) [Mass fraction] 5.8 % High 3.8-5.6 [facility] Comment on above: Result Comment: Norm al < 5.7 % Prediabetic 5.7 - 6.4 % Diabetic >or= 6.5 % Please note range changes. Performed By: #### L 500.4050, L500.4100, L501.9520, L100.0100, L501.9985 ####[facility] [address] [place], [address] Lipid Profileon 01-06-2024 Cholesterol [Mass/Vol] 201 mg/dL High 200 [facility] Comment on above: Order Comment: Comme nts: NPO at [place] prior to lipid panel Result Comment: <200 mg/dL Desirable 200-240 mg/dL Borderline >240 mg/dL High Risk Performed By: #### L 500.4050, L500.4100, L501.9520, L100.0100, L501.9985 ####[facility] [address] [place], [address] Cholesterol in HDL [Mass/Vol] 41 mg/dL Normal [facility] Comment on above: Order Comment: Comme nts: NPO at [place] prior to lipid panel Result Comment: The drugs N-Acetylcysteine and Metamizole may falselydepress this assay. Reference Range HDL <40 mg/dL Low HDL Cholesterol HDL >or= 60 mg/dL High HDL Cholesterol Performed By: #### L 500.4050, L500.4100, L501.9520, L100.0100, L501.9985 ####[facility] [address] [place], [address] Cholesterol in LDL [Mass/Vol] 140 mg/dL High 0-130 [facility] Comment on above: Order Comment: Comme nts: NPO at [place] prior to lipid panel Performed By: #### L 500.4050, L500.4100, L501.9520, L100.0100, L501.9985 ####[facility] [address] [place], [address] Cholesterol in VLDL [Mass/Vol] 20 mg/dL Normal 5-40 [facility] Comment on above: Order Comment: Comme nts: NPO at [place] prior to lipid panel Performed By: #### L 500.4050, L500.4100, L501.9520, L100.0100, L501.9985 ####[facility] [address] [place], [address] Triglyceride [Mass/Vol] 99 mg/dL Normal [facility] Comment on above: Order Comment: Comme nts: NPO at [place] prior to lipid panel Result Comment: The drugs N-Acetylcysteine and Metamizole may falselydepress this assay.Serum Triglycerides Reference Interval Normal <150 mg/dL Borderline high 150 - 199 mg/dL High 200 - 499 mg/dL Very High > or = 500 mg/dL Performed By: #### L 500.4050, L500.4100, L501.9520, L100.0100, L501.9985 ####[facility] [address] [place], [address] MR/CON.PCM.NEon 01-06-2024 MR/CON.PCM.NE Normal [facility] RESPIRATORY PANEL MOLECULARo n 01-06-2024 RP PANEL Normal [facility] Comment on above: Performed By: #### M 100.638 ####[facility] [address] [place], [address] Thyroid Stim Hormone (TSH)on 01-06-2024 TSH 1.140 uIU/mL Normal 0.358-3.740 [facility] Comment on above: Order Comment: Comme nts: NPO at [place] prior to lipid panel Performed By: #### L 500.4050, L500.4100, L501.9520, L100.0100, L501.9985 ####[facility] [address] [place], [address] 12 Lead EKGon 01-05-2024 12 Lead EKG Normal [facility] BNP,B-Type NATRIURETIC PEPTI Delroy 01-05-2024 Natriuretic peptide B (Bld) [Mass/Vol] 161.7 pg/mL High 0-100 [facility] Comment on above: Performed By: #### L 509.7000, L501.5200, L503.6620 ####[facility] [address] [place], [address] Basic Metabolic Profile (BMP )on 01-05-2024 BUN/CRE 23.0 RATIO High 10-20 [facility] Comment on above: Order Comment: 1Y Performed By: #### L 300.4310, L501.5425, L300.3900, L503.6005, L100.0100, L500.2500 ####[facility] [address] [place], [address] CA,Total 9.4 mg/dL Normal 8.5-10.1 [facility] Comment on above: Order Comment: 1Y Performed By: #### L 300.4310, L501.5425, L300.3900, L503.6005, L100.0100, L500.2500 ####[facility] [address] [place], [address] Chloride [Moles/Vol] 104 mmol/L Normal 98-107 [facility] Comment on above: Order Comment: 1Y Performed By: #### L 300.4310, L501.5425, L300.3900, L503.6005, L100.0100, L500.2500 ####[facility] [address] [place], [address] CO2 [Moles/Vol] 28.0 mmol/L Normal 21.0-32.0 [facility] Comment on above: Order Comment: 1Y Performed By: #### L 300.4310, L501.5425, L300.3900, L503.6005, L100.0100, L500.2500 ####[facility] [address] [place], [address] Creatinine [Mass/Vol] 1.48 mg/dL High 0.55-1.02 [facility] Comment on above: Order Comment: 1Y Result Comment: The validity of the calculated GFR GFRAA in patients over70 years has not been determined. Clinical correlation isessential. Performed By: #### L 300.4310, L501.5425, L300.3900, L503.6005, L100.0100, L500.2500 ####[facility] [address] [place], [address] ECRCL 33.57 ml/min Normal [facility] Comment on above: Order Comment: 1Y Performed By: #### L 300.4310, L501.5425, L300.3900, L503.6005, L100.0100, L500.2500 ####[facility] [address] [place], [address] EST GFR - AA 43 mL/min Low >60 [facility] Comment on above: Order Comment: 1Y Result Comment: Afri can Cypriot GFR Calc Performed By: #### L 300.4310, L501.5425, L300.3900, L503.6005, L100.0100, L500.2500 ####[facility] [address] [place], [address] GAP 7 Normal 5-15 [facility] Comment on above: Order Comment: 1Y Performed By: #### L 300.4310, L501.5425, L300.3900, L503.6005, L100.0100, L500.2500 ####[facility] [address] [place], [address] GFR/1.73 sq M.predicted among non-blacks MDRD (S/P/Bld) [Vol rate/Area] 36 mL/min/{1.73_m2} Low >60 [facility] Comment on above: Order Comment: 1Y Result Comment: Non- GFR Calc Performed By: #### L 300.4310, L501.5425, L300.3900, L503.6005, L100.0100, L500.2500 ####[facility] [address] [place], [address] Glucose [Mass/Vol] 128 mg/dL High 74-106 [facility] Comment on above: Order Comment: 1Y Result Comment: Fast ing Glucose result greater than or equal to 126 mg/dLsuggests DIABETES MELLITUS per A.D.A. criteria. Performed By: #### L 300.4310, L501.5425, L300.3900, L503.6005, L100.0100, L500.2500 ####[facility] [address] [place], [address] Potassium [Moles/Vol] 4.1 mmol/L Normal 3.5-5.1 [facility] Comment on above: Order Comment: 1Y Performed By: #### L 300.4310, L501.5425, L300.3900, L503.6005, L100.0100, L500.2500 ####[facility] [address] [place], [address] Sodium [Moles/Vol] 139 mmol/L Normal 136-145 [facility] Comment on above: Order Comment: 1Y Performed By: #### L 300.4310, L501.5425, L300.3900, L503.6005, L100.0100, L500.2500 ####[facility] [address] [place], [address] Urea nitrogen [Mass/Vol] 34 mg/dL High - [facility] Comment on above: Order Comment: 1Y Performed By: #### L 300.4310, L501.5425, L300.3900, L503.6005, L100.0100, L500.2500 ####[facility] [address] [place], [address] Brain without Contraston Brain without Contrast Normal [facility] CBC W/Diff, Automatedon 12-18 Absolute Lymph 1.20 X10 3/uL Normal 0.83-4.51 [facility] Comment on above: Performed By: #### L 300.4310, L501.5425, L300.3900, L503.6005, L100.0100, L500.2500 ####[facility] [address] [place], [address] Absolute Neut 6.7 X10 3/uL Normal 2.0-7.7 [facility] Comment on above: Performed By: #### L 300.4310, L501.5425, L300.3900, L503.6005, L100.0100, L500.2500 ####[facility] [address] [place], [address] Basophils/100 WBC (Bld) 0.8 % Normal 0-1 [facility] Comment on above: Performed By: #### L 300.4310, L501.5425, L300.3900, L503.6005, L100.0100, L500.2500 ####[facility] [address] [place], [address] Eosinophils/100 WBC (Bld) 0.2 % Normal 0-5 [facility] Comment on above: Performed By: #### L 300.4310, L501.5425, L300.3900, L503.6005, L100.0100, L500.2500 ####[facility] [address] [place], [address] Erythrocyte distribution width (RBC) [Ratio] 13.3 % Normal 11.6-14.6 [facility] Comment on above: Performed By: #### L 300.4310, L501.5425, L300.3900, L503.6005, L100.0100, L500.2500 ####[facility] [address] [place], [address] Hematocrit (Bld) [Volume fraction] 45.6 % Normal 37-47 [facility] Comment on above: Performed By: #### L 300.4310, L501.5425, L300.3900, L503.6005, L100.0100, L500.2500 ####[facility] [address] [place], [address] Hemoglobin (Bld) [Mass/Vol] 15.2 g/dL High 12.0-15.0 [facility] Comment on above: Performed By: #### L 300.4310, L501.5425, L300.3900, L503.6005, L100.0100, L500.2500 ####[facility] [address] [place], [address] IG% 0.800 Normal 0.0-0.9 [facility] Comment on above: Result Comment: IG% - Immature Granulocytes (promyelocytes, myelocytes andmetamyelocytes) > 1% indicates that a LEFT SHIFT is Present. Performed By: #### L 300.4310, L501.5425, L300.3900, L503.6005, L100.0100, L500.2500 ####[facility] [address] [place], [address] Lymphocytes/100 WBC (Bld) 13.6 % Low 19-41 [facility] Comment on above: Performed By: #### L 300.4310, L501.5425, L300.3900, L503.6005, L100.0100, L500.2500 ####[facility] [address] [place], [address] MCH (RBC) [Entitic mass] 32.5 pg High 27.0-32.0 [facility] Comment on above: Performed By: #### L 300.4310, L501.5425, L300.3900, L503.6005, L100.0100, L500.2500 ####[facility] [address] [place], [address] MCHC (RBC) [Mass/Vol] 33.3 g/dL Normal 32-36 [facility] Comment on above: Performed By: #### L 300.4310, L501.5425, L300.3900, L503.6005, L100.0100, L500.2500 ####[facility] [address] [place], [address] MCV (RBC) [Entitic vol] 97.4 fL Normal 81-99 [facility] Comment on above: Performed By: #### L 300.4310, L501.5425, L300.3900, L503.6005, L100.0100, L500.2500 ####[facility] [address] [place], [address] Monocytes/100 WBC (Bld) 8.4 % Normal 0-10 [facility] Comment on above: Performed By: #### L 300.4310, L501.5425, L300.3900, L503.6005, L100.0100, L500.2500 ####[facility] [address] [place], [address] Neutrophils/100 WBC (Bld) 76.2 % High 47-70 [facility] Comment on above: Performed By: #### L 300.4310, L501.5425, L300.3900, L503.6005, L100.0100, L500.2500 ####[facility] [address] [place], [address] Nucleated RBC (Bld) [#/Vol] 0 10*3/uL Normal 0-5 [facility] Comment on above: Performed By: #### L 300.4310, L501.5425, L300.3900, L503.6005, L100.0100, L500.2500 ####[facility] [address] [place], [address] Platelet mean volume (Bld) [Entitic vol] 12.2 fL High 6.2-12.0 [facility] Comment on above: Performed By: #### L 300.4310, L501.5425, L300.3900, L503.6005, L100.0100, L500.2500 ####[facility] [address] [place], [address] Platelets (Bld) [#/Vol] 187 10*3/uL Normal 150-450 [facility] Comment on above: Performed By: #### L 300.4310, L501.5425, L300.3900, L503.6005, L100.0100, L500.2500 ####[facility] [address] [place], [address] RBC (Bld) [#/Vol] 4.68 10*6/uL Normal 4.2-5.4 [facility] Comment on above: Performed By: #### L 300.4310, L501.5425, L300.3900, L503.6005, L100.0100, L500.2500 ####[facility] [address] [place], [address] RDW SD 48.6 fl High 35.1-43.9 [facility] Comment on above: Performed By: #### L 300.4310, L501.5425, L300.3900, L503.6005, L100.0100, L500.2500 ####[facility] [address] [place], [address] WBC (Bld) [#/Vol] 8.8 10*3/uL Normal 4.4-11.0 [facility] Comment on above: Performed By: #### L 300.4310, L501.5425, L300.3900, L503.6005, L100.0100, L500.2500 ####[facility] [address] [place], [address] CTA Head AND Neck W/ Contras ton 01-05-2024 CTA Head AND Neck W/ Contrast Normal [facility] Chest 1 View (Portable)on Chest 1 View (Portable) Normal [facility] Echo Complete W/ Contraston 01-05-2024 Echo Complete W/ Contrast Normal [facility] Emergency Department Summary on 01-05-2024 Emergency Department Summary Normal [facility] H AND P Exam - Hospitaliston 01-05-2024 H&P Exam - Hospitalist Normal [facility] L501.4020on 01-05-2024 TROPONIN-I HS 24 pg/mL Normal 3.0-54.0 [facility] Comment on above: Result Comment: Plea se Note: New Test Units and Gender Specific Reference Ranges. For more information see Policy Stat Procedure [place] High Sensitivity Troponin (TNIH) and attachments. Performed By: #### L 501.4020 ####[facility] [address] [place], [address] L501.5425on 01-05-2024 TROPONIN-I HS 24 pg/mL Normal 3.0-54.0 [facility] Comment on above: Order Comment: 1Y Result Comment: Plea se Note: New Test Units and Gender Specific Reference Ranges. For more information see Policy Stat Procedure [place] High Sensitivity Troponin (TNIH) and attachments. Performed By: #### L 300.4310, L501.5425, L300.3900, L503.6005, L100.0100, L500.2500 ####[facility] [address] [place], [address] Lactic Acidon 01-05-2024 Lactate [Moles/Vol] 1.8 mmol/L Normal 0.4-1.9 [facility] Comment on above: Order Comment: Y Performed By: #### L 300.4310, L501.5425, L300.3900, L503.6005, L100.0100, L500.2500 ####[facility] [address] [place], [address] M100.678on 01-05-2024 M100.678 Pending SARS-CoV-2 (COVID 19) Negative INFLUENZA A Negative INFLUENZA B Negative RSV PCR Negative Normal [facility] Comment on above: Performed By: #### M 100.678 ####[facility] [address] [place], [address] Magnesiumon 01-05-2024 Magnesium [Mass/Vol] 2.4 mg/dL Normal 1.6-2.6 [facility] Comment on above: Order Comment: Comme nts: may add to ED labs Performed By: #### L 509.7000, L501.5200, L503.6620 ####[facility] [address] [place], [place], [address] Partial Thromboplast Timeon 01-05-2024 aPTT Coag (Bld) [Time] 27.0 s Normal 24.1-36.2 [facility] Comment on above: Performed By: #### L 300.4310, L501.5425, L300.3900, L503.6005, L100.0100, L500.2500 ####[facility] [address] [facility] [address] [place], [place], [id number] Procalcitoninon 01-05-2024 Procalcitonin 0.08 ng/mL Normal 0.00-0.09 [facility] Comment on above: Result Comment: A pr ocalcitonin (PCT) level above 2.0 ng/mL on the first day of ICU admission is associated with a high risk for progression to severe sepsis and/or septic shock. A PCT level below 0.5 ng/mL on the first day of ICU admission is associated with a low risk for progression to severe and/or septic shock. Note: Concentrations <0.5 ng/mL do not exclude an infection on account of localized infections (without systemic signs) which can be associated with such low concentrations, or a systemic infection in its initial stages (<6 hours). Furthermore, increased procalcitonin can occur without infection. PCT concentrations between 0.5 and 2.0 ng/mL should be interpreted taking into account the patient's history. It is recommended to retest PCT within 6-24 hours if any concentrations <2 ng/mL are obtained. Performed By: #### L 509.7000, L501.5200, L503.6620 ####[facility] [address] [place], [address] Prothrombin Time w/INRon INR Coag (PPP) [Relative time] 1.6 {INR} Normal [facility] Comment on above: Performed By: #### L 300.4310, L501.5425, L300.3900, L503.6005, L100.0100, L500.2500 ####[facility] [address] [place], [address] PT Coag (PPP) [Time] 18.9 s High 11.7-14.9 [facility] Comment on above: Performed By: #### L 300.4310, L501.5425, L300.3900, L503.6005, L100.0100, L500.2500 ####[facility] [address] [place], [address] Urinalysis, Completeon 01-04 CAST,HYALINE 0-5 SEEN Normal 0-5 [facility] Comment on above: Order Comment: JESÚS CTOR TO SPECIFY Performed By: #### L 400.0001 ####[facility] [address] [place], [address] RBC 0-5 SEEN Normal 0-5 [facility] Comment on above: Order Comment: JESÚS CTOR TO SPECIFY Performed By: #### L 400.0001 ####[facility] [id number] [place], [address] WBC 0-5 SEEN Normal 0-5 [facility] Comment on above: Order Comment: JESÚS CTOR TO SPECIFY Performed By: #### L 400.0001 ####[facility] [address] [place], [address] EPI,SQUAMOUS 0-5 SEEN Normal 5-10 [facility] Comment on above: Order Comment: COLLE CTOR TO SPECIFY Performed By: #### L 400.0001 ####[facility] [id number] [place], [address] BACTERIA 0 SEEN Normal None Seen [facility] Comment on above: Order Comment: COLLE CTOR TO SPECIFY Performed By: #### L 400.0001 ####[facility] [id number] [place], [address] Mucus Ql (Urine sed) 0 SEEN Normal [facility] Comment on above: Order Comment: COLLE CTOR TO SPECIFY Performed By: #### L 400.0001 ####[facility] [id number] [place], [address] 36on 01-04-2024 36 I spoke w/ Juana in Dr. Garces's office, asking for echo order to be faxed. I placed order, Teofilo David DNP to sign, order needs faxed to Juana's attention @ [phone]. Time frame dates given to Juana for completion of OV/EKG/echo. KCCQ mailed to pt. [facility] 36 ----- Message from JEREMIE Saldaña CNP sent at 01/04/2024 1:51 PM EDT ----- Please call [facility] office and advise regarding registry requirements of one month and one yr appts and echo. Will likely need phone call for KCCQ. [facility] Office Visiton 01-04-2024 Follow-up visit [id number] Brianne Call 1940 F Date Provider Department Center 01/04/2024 55428-NQJYKXMÓNICA DAVID [facility] [address] No family history on file Level of Service:67346 [place] OFFICE/OUTPATIENT ESTABLISHED MOD MDM 30 MIN Reason for Visit and Comments: Cardiac Valve Problem [1334] - One week post TAVR [facility] Progress Noteon 01-04-2024 Progress Note [facility] [place] [address] [facility] [address] Dept: [phone] Dept Visit type: Established : 1940 Reason for Visit: Cardiac Valve Problem (One week post TAVR) Assessment and Plan 1. Chronic atrial fibrillation (HCC). HR stable. Continue Apixaban 2. Severe aortic stenosis. S/p tAVR. Continue Eliquis. Will contact [facility] regarding follow up and registry requirements. SBE prophylaxis. Plan echo in one month 3. Stage 3a chronic kidney disease (HCC). Renal function remains stable post procedure. 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 GFR 27--> 46 4. Left heart failure (HCC). Improved after TAVR, EF 30%--> 50 %, continue furosemide, Aldactone, Farxiga, metoprolol (allerg to landon/ARB) Plan follow up in [place] Subjective Ms Call is an 83 yr old female with a PMH of permanent AF, HFrEF, HTN, HPL, CKD stage 3b, obesity, GERD, and severe with EF 30%, mean and peak gradients 49/71 mm Hg. She underwent cardiac cath at [facility] which showed non obstructive CAD. She underwent [...] wrist complaints. She wishes to follow in [place] as travel is difficult for her Allergies Allergen Reactions Landon Inhibitors Other Iodinated Contrast Media Hives Lisinopril Cough Sacubitril Cough Valsartan Cough Outpatient Medications Prior to Visit Medication Sig Dispense Refill apixaban (Eliquis) 5 MG tablet Take 1 tablet (5 mg) by mouth 2 times daily. Resume 12/25 evening dose Farxiga 10 MG tablet Take [...] daily. furosemide (Lasix) injection 40 mg No facility-administere d medications prior to visit. [...] 12/25/2023 Performed by Harjeet Huffman MD at [facility] OR CATARACT EXTRACTION HYSTERECTOMY No family history [...] specialty: Independent interpretation of tests: Mónica David, HEAD OF GEOGRAPHY - LEARNING SUPPORT ASSISTANT Normal [facility] BASIC METABOLIC PANELon 10-0 Anion gap [Moles/Vol] 7 mmol/L Normal 3-13 [facility] Comment on above: Performed By: #### L AB15 ####Relocation Coordinator: AIDE RUEDA ([id number])[facility] ([address] Calcium [Mass/Vol] 9.1 mg/dL Normal 8.4-10.4 [facility] Comment on above: Performed By: #### L AB15 ####Relocation Coordinator: AIDE RUEDA ([id number])[facility] [place] [address] Chloride [Moles/Vol] 108 mmol/L High 98-107 [facility] Comment on above: Performed By: #### L AB15 ####Relocation Coordinator: AIDE RUEDA ([id number])[facility] [place] [address] [place] CO2 [Moles/Vol] 19 mmol/L Low 22-30 [facility] Comment on above: Performed By: #### L AB15 ####Relocation Coordinator: AIDE RUEDA ([id number])[facility] ([facility])[address] [place] [address] Creatinine [Mass/Vol] 1.17 mg/dL High 0.52-1.04 [facility] Comment on above: Performed By: #### L AB15 ####Relocation Coordinator: AIDE RUEDA ([id number])[facility] ([facility])[address] [place] [address] [place] GLOMERULAR FILTRATION RATE ML/MIN/1.73 SQ M.PREDICTED 46.4 mL/min/1.73m*2 Low >60.0 [facility] Comment on above: Result Comment: Calc ulation based on the Chronic Kidney Disease Epidemiology Collaboration (CKD-EPI) equation refit without adjustment for race Performed By: #### L AB15 ####Relocation Coordinator: AIDE RUEDA ([id number])[facility] ([facility])[address] [place] [address] [place] Glucose [Mass/Vol] 121 mg/dL High 70-100 [facility] Comment on above: Performed By: #### L AB15 ####Relocation Coordinator: AIDE RUEDA ([id number])[facility] ([facility])[address] [place] [address] [place] Potassium [Moles/Vol] 4.4 mmol/L Normal 3.5-5.1 [facility] Comment on above: Performed By: #### L AB15 ####Relocation Coordinator: AIDE RUEDA ([id number])[facility] ([facility])[address] [place] [address] Sodium [Moles/Vol] 134 mmol/L Low 135-145 [facility] Comment on above: Performed By: #### L AB15 ####Relocation Coordinator: AIDE RUEDA ([id number])[facility])[address] [place] [address] Urea nitrogen [Mass/Vol] 31 mg/dL High 7-17 [facility] Comment on above: Performed By: #### L AB15 ####Relocation Coordinator: AIDE RUEDA ([id number])[facility])[address] [place] [address] Basic metabolic 1998 panelon 12-26-2023 Anion gap [Moles/Vol] 7 mmol/L 3 - 13 mmol/L [facility] Calcium [Mass/Vol] 9.1 mg/dL 8.4 - 10. 4 mg/dL [facility] Chloride [Moles/Vol] 108 mmol/L High 98 - 10 7 mmol/L [facility] CO2 [Moles/Vol] 19 mmol/L Low 22 - 30 mmol/L [facility] Creatinine [Mass/Vol] 1.17 mg/dL High 0.52 - 1.04 mg/dL [facility] GFR/1.73 sq M.predicted (S/P/Bld) [Vol rate/Area] 46.4 mL/min Low - PINF [facility] Comment on above: Calculation based on the Chronic Kidney Disease Epidemiology Collaboration (CKD-EPI) equation refit without adjustment for race Glucose [Mass/Vol] 121 mg/dL High 70 - 100 mg/dL [facility] Interpretation and review of laboratory results Abnormal [facility] Potassium [Moles/Vol] 4.4 mmol/L 3.5 - 5.1 mmol/L [facility] Sodium [Moles/Vol] 134 mmol/L Low 135 - 145 mmol/L [facility] Urea nitrogen [Mass/Vol] 31 mg/dL High 7 - 17 mg/dL [facility] CBC (HEMOGRAM)on 12-26-2023 Erythrocyte distribution width (RBC) [Ratio] 13.3 % Normal 11.5-15.0 [facility] Comment on above: Performed By: #### L [id number] ####Relocation Coordinator: AIDE RUEDA ([id number])[facility])[address] [place] [address] Hematocrit (Bld) [Volume fraction] 43.0 % Normal 35.0-47.0 [facility] Comment on above: Performed By: #### L AB294 ####Relocation Coordinator: AIDE RUEDA ([id number])[facility])[address] [place] [address] Hemoglobin (Bld) [Mass/Vol] 14.0 g/dL Normal 11.7-16.0 [facility] Comment on above: Performed By: #### L AB294 ####Relocation Coordinator: AIDE RUEDA ([id number])[facility])[address] [place] [address] MCH (RBC) [Entitic mass] 31.9 pg Normal 26.0-34.0 [facility] Comment on above: Performed By: #### L AB294 ####Relocation Coordinator: AIDE RUEDA ([id number])[facility])[address] [place] [address] MCHC 32.6 % Normal 30.5-36.0 [facility] Comment on above: Performed By: #### L AB294 ####Relocation Coordinator: AIDE RUEDA ([id number])[facility])[address] [place] [address] MCV (RBC) [Entitic vol] 97.9 fL Normal 77.0-99.0 [facility] Comment on above: Performed By: #### L AB294 ####Relocation Coordinator: AIDE RUEDA ([id number])[facility])[address] [place] [address] Platelet mean volume (Bld) [Entitic vol] 12.4 fL Normal 9.0-12.7 [facility] Comment on above: Performed By: #### L AB294 ####Relocation Coordinator: AIDE RUEDA ([id number])[facility] ([facility])[address] [place] [address] Platelets (Bld) [#/Vol] 154 10*3/uL Normal 140-440 [facility] Comment on above: Performed By: #### L AB294 ####Relocation Coordinator: AIDE RUEDA ([id number])[facility] ([facility])[address] [place] [address] RBC (Bld) [#/Vol] 4.39 10*6/uL Normal 3.80-5.20 [facility] Comment on above: Performed By: #### L AB294 ####Relocation Coordinator: AIDE RUEDA ([id number])[facility] ([facility])[address] [place] [address] WBC (Bld) [#/Vol] 11.6 10*3/uL High 3.6-10.7 [facility] Comment on above: Performed By: #### L AB294 ####Relocation Coordinator: AIDE RUEDA ([id number])[facility])[address] [place] [address] CBC panel Auto (Bld)on 12-25 Erythrocyte distribution width (RBC) [Ratio] 13.3 % 11.5 - 15.0 % [facility] Hematocrit (Bld) [Volume fraction] 43.0 % 35.0 - 47.0 % [facility] Hemoglobin (Bld) [Mass/Vol] 14.0 g/dL 11.7 - 16.0 g/dL [facility] Interpretation and review of laboratory results Abnormal [facility] MCH (RBC) [Entitic mass] 31.9 pg 26.0 - 34.0 pg [facility] MCHC (RBC) [Mass/Vol] 32.6 % 30.5 - 36.0 % [facility] MCV (RBC) [Entitic vol] 97.9 fL 77.0 - 99.0 fL [facility] Platelet mean volume (Bld) [Entitic vol] 12.4 fL 9.0 - 12.7 fL [facility] Platelets (Bld) [#/Vol] 154 10*3/uL 140 - 440 10*3/uL [facility]To RBC (Bld) [#/Vol] 4.39 10*6/uL 3.80 - 5.2 0 10*6/uL [facility]To WBC (Bld) [#/Vol] 11.6 10*3/uL High 3.6 - 10.7 10*3/uL [facility] ECG 12-LEADon 12-26-2023 ECG 12-LEAD IMPRESSION: Atrial fibrillation with slow ventricular rate Repol abnrm suggests ischemia, diffuse leads Electronically Signed On 12-26-2023 16:26:55 EDT by Austin Carmona [facility] No Panel InformationOrdered By: Austin Carmona on 12-26-2023 P [place] 0 degrees [facility] Work Phone: [place] Interval 0 ms [facility] Work Phone: QRS [place] 48 degrees [facility] Work Phone: QRSD Interval 103 ms [facility] Work Phone: QT Interval 492 ms [facility] Work Phone: QTC Interval 404 ms [facility] Work Phone: T Wave [place] -74 degrees [facility] Work Phone: [facility] Work Phone: No Panel Informationon 12-25 Atrial fibrillation with slow ventricular rate Repol abnrm suggests ischemia, diffuse leads Electronically Signed On 12-26-2023 16:26:55 EDT by Austin Carmona Austin Kruger MD - 12/26/2023 IMPRESSION: Atrial fibrillation with slow ventricular rate Repol abnrm suggests ischemia, diffuse leads Electronically Signed On 12-26-2023 16:26:55 EDT by Austin Carmona [facility] P [place] 0 degrees [facility] [place] Interval 0 ms [facility] QRS [place] 22 degrees [facility] QRSD Interval 112 ms [facility] QT Interval 441 ms [facility] QTC Interval 405 ms [facility] T Wave [place] 230 degrees [facility] Austin Carmona MD - 12/26/2023 IMPRESSION: Atrial fibrillation Poor R wave progression, CONSIDER ANTERIOR INFARCT ST and T abnormality Electronically Signed On 12-26-2023 09:21:43 EDT by Austin Carmona [facility] Nursing Noteon 12-26-2023 Nursing Note Discharge instructions given to patient and daughter. Patient verbalizes understanding of medication changes and follow up appointments, and activity restrictions. Discharged to home with daughter. Normal [facility] US Heart TransthoracicOrdere d By: Christopher Ruggiero on 12-26-2023 Ao Root Index 1.47 cm/m2 [facility] Work Phone: Aortic Root 3.1 cm [facility] Work Phone: Aortic Sinus Valsalva 3.1 cm [facility] Work Phone: Aortic Sinus Valsalva Index 1.47 cm/m2 [facility] Work Phone: Ascending Aorta 3.6 cm [facility] Work Phone: Ascending Aorta Index 1.71 cm/m2 [facility] Work Phone: AV Area by Peak Velocity 0.6 cm2 [facility] Work Phone: AV Area by VTI 1.3 cm2 [facility] Work Phone: AV AT 75.0 ms [facility] Work Phone: AV Mean Gradient 21 mmHg [facility] Work Phone: AV Mean Velocity 2.8 m/s [facility] Work Phone: AV Peak Gradient 36 mmHg [facility] Work Phone: AV Peak Velocity 3.0 m/s [facility] Work Phone: AV Velocity Ratio 0.27 [facility] Work Phone: AV VTI 71.0 cm [facility] Work Phone: RAMÓN/BSA Peak Velocity 0.3 cm2/m2 [facility] Work Phone: RAMÓN/BSA VTI 0.6 cm2/m2 [facility] Work Phone: E/E' Lateral 11.25 [facility] Work Phone: E/E' Ratio (Averaged) 16.88 [facility] Work Phone: E/E' Septal 22.50 [facility] Work Phone: EF BP 36 % Abnormal 55 - 100 % [facility] Work Phone: Est. RA Pressure 3 mmHg [facility] [employer] Work Phone: Fractional Shortening 2D 29 % 28 - 44 % [facility] Work Phone: Interpretation and review of laboratory results Abnormal [facility] [employer] Phone: IVC Diameter 2.2 cm [facility] [employer] Phone: IVSd 1.4 cm Abnormal 0.6 - 0.9 cm [facility] [employer] Phone: LA Diameter 4.9 cm [facility] [employer] Phone: LA Size Index 2.32 cm/m2 [facility] [employer] Work Phone: LA Volume 2C 111 mL Abnormal 22 - 52 mL [facility] [employer] Phone: LA Volume 4C 131 mL Abnormal 22 - 52 mL [facility] [employer] Phone: LA Volume A/L 137 mL [facility] [employer] Work Phone: LA Volume BP 127 mL Abnormal 22 - 52 mL [facility] [employer] Work Phone: LA Volume Index 2C 53 mL/m2 Abnormal 16 - 34 mL/m2 [facility] [employer] Phone: LA Volume Index 4C 62 mL/m2 Abnormal 16 - 34 mL/m2 [facility] [employer] Work Phone: LA Volume Index A/L 65 mL/m2 16 - 34 mL/m2 [facility] [employer] Phone: LA Volume Index BP 60 ml/m2 Abnormal 16 - 34 ml/m2 [facility] [employer] Phone: LA/AO Root Ratio 1.58 [facility] Work Phone: LV E' Lateral Velocity 8 cm/s [facility] Work Phone: LV E' Septal Velocity 4 cm/s [facility] Work Phone: LV EDV A2C 137 mL [facility] Work Phone: LV EDV A4C 145 mL [facility] Work Phone: LV EDV BP 148 mL Abnormal 56 - 104 mL [facility] Work Phone: LV EDV Index A2C 65 mL/m2 [facility] Work Phone: LV EDV Index A4C 69 mL/m2 [facility] Work Phone: LV EDV Index BP 70 mL/m2 [facility] Work Phone: LV Ejection Fraction A2C 36 % [facility] Work Phone: LV Ejection Fraction A4C 35 % [facility] Work Phone: LV ESV A2C 88 mL [facility] Work Phone: LV ESV A4C 94 mL [facility] Work Phone: LV ESV BP 95 mL Abnormal 19 - 49 mL [facility] Work Phone: LV ESV Index A2C 42 mL/m2 [facility] Work Phone: LV ESV Index A4C 45 mL/m2 [facility] Work Phone: LV ESV Index BP 45 mL/m2 [facility] Work Phone: LV Mass 2D 355.3 g Abnormal 67 - 162 g [facility] Work Phone: LV Mass 2D Index 168.4 g/m2 Abnormal 43 - 95 g/m2 [facility] Work Phone: LV RWT Ratio 0.55 [facility] Work Phone: LVIDd 5.5 cm Abnormal 3.9 - 5.3 cm [facility] Work Phone: LVIDd Index 2.61 cm/m2 [facility] Work Phone: LVIDs 3.9 cm [facility] Work Phone: LVIDs Index 1.85 cm/m2 [facility] Work Phone: LVOT Area 4.2 cm2 [facility] Work Phone: LVOT Cardiac Output 3.1 liter/mi nut e [facility] Work Phone: LVOT Diameter 2.3 cm [facility] Work Phone: LVOT Mean Gradient 2 mmHg [facility] Work Phone: LVOT Peak Gradient 3 mmHg [facility] Work Phone: LVOT Peak Velocity 0.8 m/s [facility] Work Phone: LVOT Stroke Volume Index 45.3 mL/m2 [facility] Work Phone: LVOT SV 95.5 ml [facility] Work Phone: LVOT VTI 23.0 cm [facility] Work Phone: LVOT:AV VTI Index 0.32 [facility] ealth Work Phone: LVPWd 1.5 cm Abnormal 0.6 - 0.9 cm [facility] Work Phone: MR VTI 167.4 cm [facility] Work Phone: MV A Velocity 0.53 m/s [facility] Work Phone: MV Area by PHT 3.0 cm2 [facility] Work Phone: MV Area by VTI 2.1 cm2 [facility] Work Phone: MV E Velocity 0.90 m/s [facility] Work Phone: MV E Wave Deceleration Time 149.3 ms [facility] Work Phone: MV E/A 1.70 [facility] Work Phone: MV Max Velocity 1.2 m/s [facility] Work Phone: MV Mean Gradient 2 mmHg [facility] Work Phone: MV Mean Velocity 0.6 m/s [facility] Work Phone: MV Nyquist Velocity 30 cm/s [facility] Work Phone: MV Peak Gradient 6 mmHg [facility] Work Phone: MV PHT 73.0 ms [facility] Work Phone: MV Regurg Velocity PISA 5.3 m/s S [facility] Work Phone: MV VTI 46.5 cm [facility] Work Phone: MV:LVOT VTI Index 2.02 [facility] Work Phone: RA Area 4C 65.2 mL [facility] Work Phone: RV Basal Dimension 3.4 cm [facility] Work Phone: RV Free Wall Peak S' 9 cm/s [facility] Work Phone: RV Mid Dimension 1.4 cm [facility] Work Phone: RVSP 41 mmHg [facility] Work Phone: Sinotubular Junction 2.[address] [facility] Work Phone: TAPSE 1.7 cm 1.7 cm [facility] Work Phone: TR Max Velocity 3.10 m/s [facility] Work Phone: [facility] Work Phone: Heart Transthoracicon Left [...] on 12-26-2023 Heart rate 37 /min bpm [employer] Work Phone: Vital signson 12-26-2023 Heart rate 51 /min bpm [employer] BASIC METABOLIC PANELon 10- Anion gap [Moles/Vol] 9 mmol/L Normal 3-13 [facility] Comment on above: Performed By: #### L AB15 ####Relocation Coordinator: AIDE RUEDA ([id number])[facility])[address] [place] [address] Calcium [Mass/Vol] 8.5 mg/dL Normal 8.4-10.4 [facility] Comment on above: Performed By: #### L AB15 ####Relocation Coordinator: AIDE RUEDA ([id number])[facility] [place] [address] Chloride [Moles/Vol] 113 mmol/L High 98-107 [facility] Comment on above: Performed By: #### L AB15 ####Relocation Coordinator: AIDE RUEDA ([id number])[facility] ([facility])[address] [place] [address] CO2 [Moles/Vol] 19 mmol/L Low 22-30 [facility] Comment on above: Performed By: #### L AB15 ####Relocation Coordinator: AIDE RUEDA ([id number])[facility])[address] [place] [address] Creatinine [Mass/Vol] 1.09 mg/dL High 0.52-1.04 [facility] Comment on above: Performed By: #### L AB15 ####Relocation Coordinator: AIDE RUEDA ([id number])[facility])[address] [place] [address] GLOMERULAR FILTRATION RATE ML/MIN/1.73 SQ M.PREDICTED 50.5 mL/min/1.73m*2 Low >60.0 [facility] Comment on above: Result Comment: Calc ulation based on the Chronic Kidney Disease Epidemiology Collaboration (CKD-EPI) equation refit without adjustment for race ORDER COMMENTS: Slightly Hemolyzed. Interpret {TESTS AFFECTED BY SLIGHT HEMOLYSIS:86223} with caution. Performed By: #### L AB15 ####Relocation Coordinator: AIDE RUEDA ([id number])[facility] ([facility])[address] [place] [address] Glucose [Mass/Vol] 148 mg/dL High 70-100 [facility] Comment on above: Performed By: #### L AB15 ####Relocation Coordinator: AIDE RUEDA ([id number])[facility] CENTER ([facility])[address] [place] [address] Potassium [Moles/Vol] 4.7 mmol/L Normal 3.5-5.1 [facility] Comment on above: Performed By: #### L [id number] ####Relocation Coordinator: AIDE RUEDA ([id number])[facility] ([facility])[address] [place] [address] Sodium [Moles/Vol] 141 mmol/L Normal 135-145 [facility] Comment on above: Performed By: #### L AB15 ####Relocation Coordinator: AIDE RUEDA ([id number])[facility] ([facility])[address] [place] [address] Urea nitrogen [Mass/Vol] 28 mg/dL High 7-17 [facility] Comment on above: Performed By: #### L AB15 ####Relocation Coordinator: AIDE RUEDA ([id number])[facility] ([facility])[address] [place] [address] BLOOD TYPE AND SCREEN GELon 12-25-2023 ABO GROUPING O Normal [facility] Comment on above: Performed By: #### L [id number] #### Relocation Coordinator: AIDE RUEDA ([id number]) [facility] ([facility]) [address] [place] [address] RH TYPE IN BLOOD Positive Normal [facility] Comment on above: Performed By: #### L [id number] #### Relocation Coordinator: AIDE RUEDA ([id number]) [facility] ([facility]) [address] [place] [address] Basic metabolic 1998 panelon 12-25-2023 Anion gap [Moles/Vol] 9 mmol/L 3 - 13 mmol/L [facility] Calcium [Mass/Vol] 8.5 mg/dL 8.4 - 10. 4 mg/dL [facility] Chloride [Moles/Vol] 113 mmol/L High 98 - 10 7 mmol/L [facility] CO2 [Moles/Vol] 19 mmol/L Low 22 - 30 mmol/L [facility] Creatinine [Mass/Vol] 1.09 mg/dL High 0.52 - 1.04 mg/dL [facility] GFR/1.73 sq M.predicted (S/P/Bld) [Vol rate/Area] 50.5 mL/min Low - PINF [facility] Comment on above: Calculation based on the Chronic Kidney Disease Epidemiology Collaboration (CKD-EPI) equation refit without adjustment for race Glucose [Mass/Vol] 148 mg/dL High 70 - 100 mg/dL [facility] Interpretation and review of laboratory results Abnormal [facility] Potassium [Moles/Vol] 4.7 mmol/L 3.5 - 5.1 mmol/L [facility] Sodium [Moles/Vol] 141 mmol/L 135 - 145 mmol/L [facility] Urea nitrogen [Mass/Vol] 28 mg/dL High 7 - 17 mg/dL [facility] Slightly Hemolyzed. Interpret {TESTS AFFECTED BY SLIGHT HEMOLYSIS:74580} with caution. [facility] Blood type and Crossmatch pa justin (Bld)on 12-25-2023 ABO group Nom (Bld) O [facility] Blood group antibody screen GEL Ql Negative [facility] D Ag Ql (RBC) [facility] CBC (HEMOGRAM)on 12-25-2023 Erythrocyte distribution width (RBC) [Ratio] 13.3 % Normal 11.5-15.0 [facility] Comment on above: Performed By: #### L [id number] ####Relocation Coordinator: AIDE RUEDA ([id number])[address] Hematocrit (Bld) [Volume fraction] 39.5 % Normal 35.0-47.0 [facility] Comment on above: Performed By: #### L [id number] ####Relocation Coordinator: AIDE RUEDA ([id number])[facility])[address] [place] [address] Hemoglobin (Bld) [Mass/Vol] 13.0 g/dL Normal 11.7-16.0 [facility] Comment on above: Performed By: #### L [id number] ####Relocation Coordinator: AIDE RUEDA ([id number])[facility])[address] [place] [address] MCH (RBC) [Entitic mass] 31.9 pg Normal 26.0-34.0 [facility] Comment on above: Performed By: #### L [id number] ####Relocation Coordinator: AIDE RUEDA ([id number])[facility])[address] [place] [address] MCHC 32.9 % Normal 30.5-36.0 [facility] Comment on above: Performed By: #### L [id number] ####Relocation Coordinator: AIDE RUEDA ([id number])[facility])[address] [place] [address] MCV (RBC) [Entitic vol] 97.1 fL Normal 77.0-99.0 S [facility] Comment on above: Performed By: #### L [id number] ####Relocation Coordinator: AIDE RUEDA ([id number])[facility])[address] [place] [address] Platelet mean volume (Bld) [Entitic vol] 12.2 fL Normal 9.0-12.7 [facility] Comment on above: Performed By: #### L [id number] ####Relocation Coordinator: AIDE RUEDA ([id number])[facility])[address] [place] [address] Platelets (Bld) [#/Vol] 140 10*3/uL Normal 140-440 [facility] Comment on above: Performed By: #### L [id number] ####Relocation Coordinator: AIDE RUEDA ([id number])[facility])[address] [place] [address] RBC (Bld) [#/Vol] 4.07 10*6/uL Normal 3.80-5.20 [facility] Comment on above: Performed By: #### L [id number] ####Relocation Coordinator: AIDE RUEDA ([id number])[facility] ([facility])[address] [place] [address] WBC (Bld) [#/Vol] 9.1 10*3/uL Normal 3.6-10.7 [facility] System [facility] Comment on above: Performed By: #### L [id number] ####Relocation Coordinator: AIDE RUEDA ([id number])[facility] ([facility])[address] [place] [address] CBC panel Auto (Bld)on 12-24 Erythrocyte distribution width (RBC) [Ratio] 13.3 % 11.5 - 15.0 % [facility] Hematocrit (Bld) [Volume fraction] 39.5 % 35.0 - 47.0 % [facility] Hemoglobin (Bld) [Mass/Vol] 13.0 g/dL 11.7 - 16.0 g/dL [facility] Interpretation and review of laboratory results Normal [facility] MCH (RBC) [Entitic mass] 31.9 pg 26.0 - 34.0 pg [facility] MCHC (RBC) [Mass/Vol] 32.9 % 30.5 - 36.0 % [facility] MCV (RBC) [Entitic vol] 97.1 fL 77.0 - 99.0 fL [facility] Platelet mean volume (Bld) [Entitic vol] 12.2 fL 9.0 - 12.7 fL [facility] Platelets (Bld) [#/Vol] 140 10*3/uL 140 - 440 10*3/uL [facility] RBC (Bld) [#/Vol] 4.07 10*6/uL 3.80 - 5.2 0 10*6/uL [facility] WBC (Bld) [#/Vol] 9.1 10*3/uL 3.6 - 10.7 10*3/uL [facility] Cardiac catheterization stud yon 12-25-2023 Successful [id number] TAVR with a 23mm soumya S3u, via [...] Via the left femoral vein, a 6 Algerian sheath was placed and temporary pacing wire was placed into the RV apex with appropriate capture, in addition sterile tubing was attached and given the anesthesia for central access. Via right radial artery, a 6-Algerian sheath was placed and the pigtail catheter was placed into the aortic annulus with confirmation the implant angle. Via the left femoral artery, a 6-Algerian sheath was placed. The patient was then heparinized. Next, two Perclose devices were used using the pre-close strategy. A Super Stiff wire was then placed through the second Perclose into the descending aorta. Then, a 14-Algerian Soumya E-sheath was introduced over the wire [...] care of your patient while hospitalized at [facility]. I will continue to follow along while hospitalized. Please do not hesitate to call with any questions. ReplySend The Local Path.To No Panel Informationon 12-24 Blood Expiration Date S [facility] Path.To Blood Expiration Date S [facility] Path.To Crossmatch interpretation COMP ReplySend Path.To Dispense Status Crossmatch ReplySend [facility] Product Blood Type 5100 ReplySend Path.To PRODUCT CODE [id number] ReplySend Path.To PRODUCT CODE [id number] ReplySend Path.To Unit ABO O ReplySend Path.To Unit Number [id number] [facility] Unit Number [id number] [facility] alth Unit RH Positive [facility] Path.To Unit Volume 300 mL ReplySend The [facility] Path.To Op Noteon 12-25-2023 Op Note Date of [...] The valve was passed through the 14 Algerian sapient E sheath into the descending thoracic [...] was decannulated transferred stable to recovery. Normal [facility] Path.To System [facility] US Heart TransthoracicOrdere d By: Otto Fernandez on 12-25-2023 AV Area (Pre-TAVR) 0.3 cm2 [facility] Work Phone: AV Area by Peak Velocity 0.7 cm2 [facility] Work Phone: AV Area by VTI 0.7 cm2 [facility] th Work Phone: AV Mean Gradient 14 mmHg [facility] Work Phone: AV Mean Gradient (Pre-TAVR) 59 mmHg [facility] Work Phone: AV Mean Velocity 1.7 m/s [facility] Work Phone: AV Peak Gradient 25 mmHg [facility] Work Phone: AV Peak Gradient (Pre-TAVR) 93 mmHg [facility] Work Phone: AV Peak Velocity 2.5 m/s [facility] Work Phone: AV Peak Velocity (Pre-TAVR) 4.8 m/s [facility] Work Phone: AV Velocity Ratio 0.20 [facility] Work Phone: AV VTI 60.2 cm [facility] Work Phone: RAMÓN/BSA Peak Velocity 0.3 cm2/m2 [facility] Work Phone: RAMÓN/BSA VTI 0.3 cm2/m2 [facility] Work Phone: Est. RA Pressure 3 mmHg [facility] Work Phone: LVOT Area 3.1 cm2 [facility] Work Phone: LVOT Cardiac Output 1.6 liter/mi nut e [facility] Work Phone: LVOT Diameter 2.0 cm [facility] Work Phone: LVOT Mean Gradient 1 mmHg [facility] Work Phone: LVOT Peak Gradient 1 mmHg [facility] Work Phone: LVOT Peak Velocity 0.5 m/s [facility] Work Phone: LVOT Stroke Volume Index 20.6 mL/m2 [facility] Work Phone: LVOT SV 42.7 ml [facility] Work Phone: LVOT VTI 13.6 cm [facility] Work Phone: LVOT:AV VTI Index 0.23 [facility] Work Phone: RVSP 51 mmHg [facility] Work Phone: TR Max Velocity 3.45 m/s [facility] Work Phone: TR Peak Gradient 48 mmHg [facility] Work Phone: [facility] Work Phone: Heart Transthoracicon Aortic Valve: Lucia [...] a supine position. No contrast was given. CV CPACS CT ANGIOGRAM TAVRon 12-22-19 CT ANGIOGRAM TAVR [...] 12/22/2023 11:10 AM EDT --------ORIGINAL REPORT -------- [facility] Valve [facility] Cardiovascular CTA Indication: 83 year-old woman with severe aortic stenosis, being evaluated for transcatheter aortic valve implantation. Technique: Computed tomography of the heart, thoracoabdominal aorta, and iliofemoral system was performed using a [employer] One 320 detector scanner. Images were [...] VELEZ MEGGAN Reason For Exam: aortic stenosis [facility] Valve [facility] Cardiovascular CTA Indication: 83 year-old woman with severe aortic stenosis, being evaluated for transcatheter aortic valve implantation. Technique: Computed tomography of the heart, thoracoabdominal aorta, and iliofemoral system was performed usi (more content not included)... Normal [facility] 36on 12-21-2023 36 Patient has stage 3 b- 4 CKD, stable compared to previous. OK to proceed. Normal [facility] 36 BMP received, reviewed, MA to enter, Creat 1.9 GFR 27. Teofilo David CNP to review. Normal [facility] 36 I called [facility] for BMP, left message w/ OP lab to fax results. Normal [facility] Basic Metabolic Profile (BMP )on 12-19-2023 BUN/CRE 17.9 RATIO Normal 10-20 [facility] Comment on above: Performed By: #### L 500.2500 ####[facility] [address] [place], [address] CA,Total 9.8 mg/dL Normal 8.5-10.1 [facility] Comment on above: Performed By: #### L 500.2500 ####[facility] [address] [place], [address] Chloride [Moles/Vol] 103 mmol/L Normal 98-107 [facility] Comment on above: Performed By: #### L 500.2500 ####[facility] [address] [place], [address] CO2 [Moles/Vol] 26.0 mmol/L Normal 21.0-32.0 [facility] Comment on above: Performed By: #### L 500.2500 ####[facility] [address] [place], [address] Creatinine [Mass/Vol] 1.90 mg/dL High 0.55-1.02 [facility] Comment on above: Result Comment: The validity of the calculated GFR GFRAA in patients over70 years has not been determined. Clinical correlation isessential. Performed By: #### L 500.2500 ####[facility] [address] [place], [address] EST GFR - AA 33 mL/min Low >60 [facility] Comment on above: Result Comment: Afri can Cypriot GFR Calc Performed By: #### L 500.2500 ####[facility] [address] [place], [address] GAP 9 Normal 5-15 [facility] Comment on above: Performed By: #### L 500.2500 ####[facility] [address] [place], [address] GFR/1.73 sq M.predicted among non-blacks MDRD (S/P/Bld) [Vol rate/Area] 27 mL/min/{1.73_m2} Low >60 [facility] Comment on above: Result Comment: Non- GFR Calc Performed By: #### L 500.2500 ####[facility] [address] [place], [address] Glucose [Mass/Vol] 119 mg/dL High 74-106 [facility] Comment on above: Result Comment: Fast ing Glucose result from 100 to 125 mg/dLsuggests IMPAIRED HOMEOSTASIS per A.D.A. criteria. Performed By: #### L 500.2500 ####[facility] [address] [place], [address] Potassium [Moles/Vol] 3.8 mmol/L Normal 3.5-5.1 [facility] Comment on above: Performed By: #### L 500.2500 ####[facility] [address] [place], [address] Sodium [Moles/Vol] 138 mmol/L Normal 136-145 [facility] Comment on above: Performed By: #### L 500.2500 ####[facility] [address] [place], [address] Urea nitrogen [Mass/Vol] 34 mg/dL High 7-18 [facility] Comment on above: Performed By: #### L 500.2500 ####[facility] [address] [place], [address] 36on 12-18-2023 36 I can not make any changes or cx the No Show b/c it's past. [facility] 12-16-2023 36 Name of caller: Brianne Contact phone number: [phone] Relationship to Patient: patient Provider: Mónica VOGEL Practice: [facility] Chief Complaint/Reason for Call: Patient had [...] business hours to return their call: N/A [facility] 12-15-2023 36 Lab order faxed to [facility] [phone]/[facility] 12-14-2023 36 Per Teofilo David DNP, will get BMP done on 12/19/23 in [place], RX for Prednisone pended. [place] to fax lab order to [facility], pt notified via phone and verbalizes understanding. [facility] 12-13-2023 36 Pt returned my call, no further issues w/ itching/hives from contrast allergy. I reviewed need for BMP and Prednisone before TAVR. Of note, pt was unaware of any renal insufficiency in the past. Will discuss timing of BMP w/ Teofilo David DNP. [facility] 36 Per Teofilo David DNP, pt had allergic reaction to CTA contrast yesterday, and pt with increase in Creat. Plan for Dye Allergy Prep meds will be needed, and repeat BMP. I left vm message for pt to return call. [facility] BLOOD TYPE AND SCREEN GEL12-12-2023 ABO GROUPING O [facility] Comment on above: Performed By: #### L [id number] ####Relocation Coordinator: AIDE RUEDA ([id number])[facility] ([facility])[address] [place] [address] RH TYPE IN BLOOD Positive Normal [facility] alth System [facility] Comment on above: Performed By: #### L [id number] ####Relocation Coordinator: AIDE RUEDA ([id number])[facility] ([facility])[address] [place] [address] Blood type and Crossmatch pa justin (Bld)on 12-12-2023 ABO group Nom (Bld) O [facility] Blood group antibody screen GEL Ql Negative [facility] Path.To D Ag Ql (RBC) Positive [facility] Healt [facility]Send[facility] CBC W Auto Differential pane l (Bld)on 12-12-2023 Basophils (Bld) [#/Vol] 0.1 10*3/uL 0.0 - 0.2 10*3/uL ReplySend Path.To Basophils/100 WBC (Bld) 1.3 % 0.0 - 2.0 % ReplySend Path.To Eosinophils (Bld) [#/Vol] 0.1 10*3/uL 0.0 - 0.5 10*3/uL ReplySend Path.To Eosinophils/100 WBC (Bld) 2.0 % 0.0 - 6.0 % ReplySend Path.To Erythrocyte distribution width (RBC) [Ratio] 13.1 % 11.5 - 15.0 % ReplySend Path.To Hematocrit (Bld) [Volume fraction] 48.1 % High 35.0 - 47.0 % ReplySend Path.To Hemoglobin (Bld) [Mass/Vol] 16.0 g/dL 11.7 - 16.0 g/dL ReplySend Path.To Immature granulocytes (Bld) [#/Vol] 0.1 10*3/uL High NINF - 0.1 10*3/uL ReplySend Path.To Immature granulocytes/100 WBC (Bld) 0.7 % 0.0 - 2.0 % [facility] Path.To Interpretation and review of laboratory results Abnormal ReplySend Path.To Lymphocytes (Bld) [#/Vol] 1.6 10*3/uL 1.0 - 4.3 10*3/uL ReplySend Path.To Lymphocytes/100 WBC (Bld) 23.0 % 15.0 - 45.0 % ReplySend Path.To MCH (RBC) [Entitic mass] 31.7 pg 26.0 - 34.0 pg ReplySend Path.To MCHC (RBC) [Mass/Vol] 33.3 % 30.5 - 36.0 % [facility] MCV (RBC) [Entitic vol] 95.2 fL 77.0 - 99.0 fL [facility] Monocytes (Bld) [#/Vol] 1.0 10*3/uL High 0.0 - 0.9 10*3/uL [facility] Monocytes/100 WBC (Bld) 14.2 % High 5.0 - 13.0 % [facility] Neutrophils (Bld) [#/Vol] 4.0 10*3/uL 1.8 - 7.5 10*3/uL [facility] Neutrophils/100 WBC (Bld) 58.8 % 38.0 - 82.0 % [facility] Nucleated RBC/100 WBC (Bld) [Ratio] 0.0 % [facility] Platelet mean volume (Bld) [Entitic vol] 13.0 fL High 9.0 - 12.7 fL [facility] Platelets (Bld) [#/Vol] 194 10*3/uL 140 - 440 10*3/uL [facility] RBC (Bld) [#/Vol] 5.05 10*6/uL 3.80 - 5.2 0 10*6/uL [facility] WBC (Bld) [#/Vol] 6.9 10*3/uL 3.6 - 10.7 10*3/uL [facility] CBC WITH AUTO DIFFERENTIALon 12-12-2023 Basophils (Bld) [#/Vol] 0.1 10*3/uL Normal 0.0-0.2 [facility] Comment on above: Performed By: #### L [id number] ####Relocation Coordinator: AIDE RUEDA ([id number])[facility])[address] [place] [address] Basophils/100 WBC (Bld) 1.3 % Normal 0.0-2.0 S [facility] Comment on above: Performed By: #### L [id number] ####Relocation Coordinator: AIDE RUEDA ([id number])[facility] ([facility])[address] [place] [address] Eosinophils (Bld) [#/Vol] 0.1 10*3/uL Normal 0.0-0.5 [facility] Comment on above: Performed By: #### L [id number] ####Relocation Coordinator: AIDE RUEDA ([id number])[facility])[address] [place] [address] Eosinophils/100 WBC (Bld) 2.0 % Normal 0.0-6.0 [facility] Comment on above: Performed By: #### L [id number] ####Relocation Coordinator: AIDE RUEDA ([id number])[facility])[address] [place] [address] Erythrocyte distribution width (RBC) [Ratio] 13.1 % Normal 11.5-15.0 [facility] Comment on above: Performed By: #### L [id number] ####Relocation Coordinator: AIDE RUEDA ([id number])[address] Hematocrit (Bld) [Volume fraction] 48.1 % High 35.0-47.0 [facility] Comment on above: Performed By: #### L [id number] ####Relocation Coordinator: AIDE RUEDA ([id number])[address] Hemoglobin (Bld) [Mass/Vol] 16.0 g/dL Normal 11.7-16.0 [facility] Comment on above: Performed By: #### L [id number] ####Relocation Coordinator: AIDE RUEDA ([id number])[facility])[address] [place] [address] IMMATURE GRANS % 0.7 % Normal 0.0-2.0 [facility] Comment on above: Performed By: #### L [id number] ####Relocation Coordinator: AIDE RUEDA ([id number])[address] IMMATURE GRANS ABSOLUTE 0.1 10*3/uL High <0.1 [facility] Comment on above: Performed By: #### L [id number] ####Relocation Coordinator: AIDE [id number])[facility])[address] [place] [address] Lymphocytes (Bld) [#/Vol] 1.6 10*3/uL Normal 1.0-4.3 [facility] Comment on above: Performed By: #### L [id number] ####Relocation Coordinator: AIDE RUEDA ([id number])[facility])[address] [place] [address] Lymphocytes/100 WBC (Bld) 23.0 % Normal 15.0-45.0 [facility] Comment on above: Performed By: #### L [id number] ####Relocation Coordinator: AIDE RUEDA ([id number])[facility])[address] [place] [address] MCH (RBC) [Entitic mass] 31.7 pg Normal 26.0-34.0 [facility] Comment on above: Performed By: #### L [id number] ####Relocation Coordinator: AIDE RUEDA ([id number])[facility])[address] [place] [address] MCHC 33.3 % Normal 30.5-36.0 [facility] Comment on above: Performed By: #### L [id number] ####Relocation Coordinator: AIDE RUEDA ([id number])[facility])[address] [place] [address] MCV (RBC) [Entitic vol] 95.2 fL Normal 77.0-99.0 S [facility] Comment on above: Performed By: #### L [id number] ####Relocation Coordinator: AIDE RUEDA ([id number])[facility])[address] [place] [address] Monocytes (Bld) [#/Vol] 1.0 10*3/uL High 0.0-0.9 [facility] Comment on above: Performed By: #### L [id number] ####Relocation Coordinator: AIDE RUEDA ([id number])[facility])[address] [place] [address] Monocytes/100 WBC (Bld) 14.2 % High 5.0-13.0 [facility] Comment on above: Performed By: #### L [id number] ####Relocation Coordinator: AIDE RUEDA ([id number])[facility] ([facility])[address] [place] [address] NEUTROPHILS ABSOLUTE 4.0 10*3/uL Normal 1.8-7.5 [facility] Comment on above: Performed By: #### L [id number] ####Relocation Coordinator: AIDE RUEDA ([id number])[facility] ([facility])[address] [place] [address] Neutrophils/100 WBC (Bld) 58.8 % Normal 38.0-82.0 [facility] Comment on above: Performed By: #### L [id number] ####Relocation Coordinator: AIDE RUEDA ([id number])[facility] ([facility])[address] [place] [address] NRBC 0.0 /100 WBCs Normal 0.0-2.0 [facility] Comment on above: Performed By: #### L [id number] ####Relocation Coordinator: AIDE RUEDA ([id number])[facility] ([facility])[address] [place] [address] Platelet mean volume (Bld) [Entitic vol] 13.0 fL High 9.0-12.7 [facility] Comment on above: Performed By: #### L [id number] ####Relocation Coordinator: AIDE RUEDA ([id number])[facility] ([facility])[address] [place] [address] Platelets (Bld) [#/Vol] 194 10*3/uL Normal 140-440 [facility] Comment on above: Performed By: #### L [id number] ####Relocation Coordinator: AIDE RUEDA ([id number])[facility] [facility])[address] [place] [address] [place] RBC (Bld) [#/Vol] 5.05 10*6/uL Normal 3.80-5.20 [facility] Comment on above: Performed By: #### L [id number] ####Relocation Coordinator: AIDE RUEDA ([id number])[facility])[address] [place] [address] WBC (Bld) [#/Vol] 6.9 10*3/uL Normal 3.6-10.7 [facility] Comment on above: Performed By: #### L [id number] ####Relocation Coordinator: AIDE RUEDA ([id number])[facility])[address] [place] [address] COMPREHENSIVE METABOLIC PANE Dillon 12-12-2023 Albumin [Mass/Vol] 4.1 g/dL Normal 3.5-5.0 [facility] Comment on above: Performed By: #### L AB106, LAB17 ####Relocation Coordinator: AIDE RUEDA ([id number])[facility])[address] [place] [address] ALP [Catalytic activity/Vol] 70 U/L Normal 38-126 [facility] Comment on above: Performed By: #### L AB106, LAB17 ####Relocation Coordinator: AIDE RUEDA ([id number])[facility])[address] [place] [address] ALT [Catalytic activity/Vol] 18 U/L Normal 0-34 [facility] Comment on above: Performed By: #### L AB106, LAB17 ####Relocation Coordinator: AIDE RUEDA ([id number])[facility])[address] [place] [address] Anion gap [Moles/Vol] 11 mmol/L Normal 3-13 [facility] Comment on above: Performed By: #### L AB106, LAB17 ####Relocation Coordinator: AIDE RUEDA ([id number])[facility])[address] [place] [address] AST [Catalytic activity/Vol] 52 U/L High 15-46 [facility] Comment on above: Performed By: #### L AB106, LAB17 ####Relocation Coordinator: AIDE [id number])[facility] [place] [address] [place] Bilirubin [Mass/Vol] 1.0 mg/dL Normal 0.2-1.3 [facility] Comment on above: Performed By: #### L AB106, LAB17 ####Relocation Coordinator: AIDE RUEDA ([id number])[facility])[address] [place] [address] Calcium [Mass/Vol] 9.3 mg/dL Normal 8.4-10.4 [facility] Comment on above: Performed By: #### L AB106, LAB17 ####Relocation Coordinator: AIDE RUEDA ([id number])[facility] ([facility])[address] [place] [address] Chloride [Moles/Vol] 103 mmol/L Normal 98-107 [facility] Comment on above: Performed By: #### L AB106, LAB17 ####Relocation Coordinator: AIDE RUEDA ([id number])[facility] ([facility])[address] [place] [address] [place] CO2 [Moles/Vol] 22 mmol/L Normal 22-30 [facility] Comment on above: Performed By: #### L AB106, LAB17 ####Relocation Coordinator: AIDE RUEDA ([id number])[facility] ([facility])[address] [place] [address] [place] Creatinine [Mass/Vol] 1.95 mg/dL High 0.52-1.04 [facility] Comment on above: Performed By: #### L AB106, LAB17 ####Relocation Coordinator: AIDE RUEDA ([id number])[facility])[address] [place] [address] [place] GLOMERULAR FILTRATION RATE ML/MIN/1.73 SQ M.PREDICTED 25.1 mL/min/1.73m*2 Low >60.0 [facility] Comment on above: Result Comment: Calc ulation based on the Chronic Kidney Disease Epidemiology Collaboration (CKD-EPI) equation refit without adjustment for race ORDER COMMENTS: Slightly Hemolyzed. Interpret Potassium, Alkaline Phosphatase, and AST with caution. Performed By: #### L AB106, LAB17 ####Relocation Coordinator: AIDE RUEDA ([id number])[facility])[address] [place] [address] Glucose [Mass/Vol] 107 mg/dL High 70-100 [facility] Comment on above: Performed By: #### L AB106, LAB17 ####Relocation Coordinator: AIDE RUEDA ([id number])[facility])[address] [place] [address] Potassium [Moles/Vol] 4.3 mmol/L Normal 3.5-5.1 [facility] Comment on above: Performed By: #### L AB106, LAB17 ####Relocation Coordinator: AIDE RUEDA ([id number])[facility])[address] [place] [address] Protein [Mass/Vol] 7.9 g/dL Normal 6.3-8.2 [facility] Comment on above: Performed By: #### L AB106, LAB17 ####Relocation Coordinator: AIDE RUEDA ([id number])[facility])[address] [place] [address] Sodium [Moles/Vol] 136 mmol/L Normal 135-145 [facility] Comment on above: Performed By: #### L AB106, LAB17 ####Relocation Coordinator: AIDE RUEDA ([id number])[facility])[address] [place] [address] Urea nitrogen [Mass/Vol] 36 mg/dL High 7-17 [facility] Comment on above: Performed By: #### L AB106, LAB17 ####Relocation Coordinator: AIDE RUEDA ([id number])[facility])[address] [place] [address] Comprehensive metabolic 1998 panelon 12-12-2023 Albumin [Mass/Vol] 4.1 g/dL 3.5 - 5.0 g/dL [facility] ALP [Catalytic activity/Vol] 70 U/L 38 - 126 U/L [facility] ALT [Catalytic activity/Vol] 18 U/L 0 - 34 U/L [facility] Anion gap [Moles/Vol] 11 mmol/L 3 - 13 mmol/L [facility] AST [Catalytic activity/Vol] 52 U/L High 15 - 46 U/L [facility] Bilirubin [Mass/Vol] 1.0 mg/dL 0.2 - 1 .3 mg/dL [facility] Calcium [Mass/Vol] 9.3 mg/dL 8.4 - 10. 4 mg/dL [facility] Chloride [Moles/Vol] 103 mmol/L 98 - 10 7 mmol/L [facility] CO2 [Moles/Vol] 22 mmol/L 22 - 30 mmol/L [facility] Creatinine [Mass/Vol] 1.95 mg/dL High 0.52 - 1.04 mg/dL [facility] GFR/1.73 sq M.predicted (S/P/Bld) [Vol rate/Area] 25.1 mL/min Low - PINF [facility] Comment on above: Calculation based on the Chronic Kidney Disease Epidemiology Collaboration (CKD-EPI) equation refit without adjustment for race Glucose [Mass/Vol] 107 mg/dL High 70 - 100 mg/dL [facility] Interpretation and review of laboratory results Abnormal [facility] Potassium [Moles/Vol] 4.3 mmol/L 3.5 - 5.1 mmol/L [facility] Protein [Mass/Vol] 7.9 g/dL 6.3 - 8.2 g/dL [facility] Sodium [Moles/Vol] 136 mmol/L 135 - 145 mmol/L [facility] Urea nitrogen [Mass/Vol] 36 mg/dL High 7 - 17 mg/dL [facility] Slightly Hemolyzed. Interpret Potassium, Alkaline Phosphatase, and AST with caution. [facility] NT PRO BNPon 12-12-2023 Natriuretic peptide B (Bld) [Mass/Vol] 2261 pg/mL High <450 [facility] Comment on above: Performed By: #### L AB106, LAB17 ####Relocation Coordinator: AIDE RUEDA ([id number])[facility] ([address] Natriuretic peptide B [Mass/ Vol]Ordered By: Bob Flores on 12-12-2023 Interpretation and review of laboratory results Abnormal [facility] Natriuretic peptide B (Bld) [Mass/Vol] 2261 pg/mL High NINF - 450 pg/mL [facility] Office Visiton 12-12-2023 Follow-up visit [id number] Brianne Call 1940 F Date Provider Department Center 12/12/2023 23158-VUJMFUMÓNICA DAVID [facility] [address] No family history on file Level of Service:52011 [place] OFFICE/OUTPATIENT ESTABLISHED MOD MDM 30 MIN Reason for Visit and Comments: Cardiac Valve Problem [1334] - Patient seen in private OP procedure area for H + P update and education prior to scheduled TAVR Normal [facility] Progress Noteon 12-12-2023 Progress Note Pts symptoms of the reaction have all gone away. Pt states she feels back to normal. Normal [facility] Progress Note [facility] [place] [address] [place] [address] Dept: [phone] Dept Visit type: Established : 1940 Reason [...] mm Hg. She underwent cardiac cath at [place] which showed non obstructive CAD. He kidney [...] Negative for dysphoric mood. Allergies Allergen Reactions Landon Inhibitors Other Iodinated Contrast Media Hives Lisinopril [...] mg IntraVENous Once Mónica David APRN - LEARNING SUPPORT ASSISTANT sodium chloride 0.9 % bolus 500 mL [...] D deficiency Social (more content not included)... [place] [address]on 12-08-2023 36 Approved [id number] 12/24-12/26/23 Calendars and Snapboard updated. [facility] 36 Messaged central scheduling through secure chat and CTA TAVR scheduled at [facility] at [address] 12-07-2023 36 Jay Currie RT is out of office until 12/11/23. I spoke w/ [facility] Radiology Dept, I was sent to a fish hatchery supervisor , I left message re: add on CTA @ [facility] for 12/11. [facility] 36 I spoke w/ Katherin in [place], re: [facility] IV hydration, having difficulty with adding pt, she will speak w/ coworker and call me back. I spoke w/ Jennifer RN in [facility], they have pt on their schedule. I spoke w/ patient, reviewed NPO 4 hrs prior, all questions answered. I also spoke w/ Rossana in [facility], CTA needs moved to [facility]. [facility] 36on 12-06-2023 36 Hydration orders faxed,confirmed and scanned under Media Submitted auth request on [facility]. Pending # [id number] On all 3 calendars. [facility] 36 I spoke w/ pt and dtr Shama re: need for POP/IV hydration for CTA. I spoke w/ Hiwot in [place], they can accommodate pt on 12/11 @ 7. 8 hr IV hydration orders and pre op TAVR lab/CXR orders given to [facility] [place] to fax. I called Radha Christiano in [place] to arrange CTA, she will call me back to arrange CTA & once IV hydration orders are scanned. Agrees to TAVR date of 12/25/23 @ 9:15, [facility] notified to schedule/PA/snap board/calendars. Normal [facility] 36 Patient returned my call. No issues with Right radial cath site, cath performed by Dr. Garces in [place], I called to have images pushed to PACS and fax report w/ recent labs. Labs reviewed from [place], drawn 11/28/23 GFR 31 prior to cath. Teofilo Velez CNP notified to review and advise if IV hydration is needed. [facility] 36 I spoke w/ Medina in Dr. Garces's office, confirmed LHC completed, she will push images to PACS and fax report & lab results. I left vm message for dtr Shama to review pt status, discuss next steps BMP/CTA. [facility] 36on 12-05-2023 36 Chart note done. I faxed it and the EKG tracings to [phone]/[facility] [address] Dr. Huffman verbally notified. [facility] 36 Medina from [facility] called requesting last OV note but PB has not finished yet. (11/22/23) [phone] They need the most recent EKG wave forms as well. [facility] Cardiac Cath [employer] Cardiac Cath Diagnostic Normal [facility] 36on 11-28-2023 36 Spoke w/ Juana @ [facility], cath scheduled for 12/04/23 w/ Dr. Garces. Normal [facility] Basic Metabolic Profile (BMP )on 11-28-2023 BUN/CRE 21.1 RATIO High 10-20 [facility] Comment on above: Order Comment: for h eart cath Performed By: #### L 500.2500, L300.4310, L100.0100, L300.3900 ####[facility] [address] [place], [address] CA,Total 9.5 mg/dL Normal 8.5-10.1 [facility] Comment on above: Order Comment: for h eart cath Performed By: #### L 500.2500, L300.4310, L100.0100, L300.3900 ####[facility] [address] [place], [address] Chloride [Moles/Vol] 103 mmol/L Normal 98-107 [facility] Comment on above: Order Comment: for h eart cath Performed By: #### L 500.2500, L300.4310, L100.0100, L300.3900 ####[facility] [address] [place], [address] CO2 [Moles/Vol] 27.0 mmol/L Normal 21.0-32.0 [facility] Comment on above: Order Comment: for h eart cath Performed By: #### L 500.2500, L300.4310, L100.0100, L300.3900 ####[facility] [address] [place], [address] Creatinine [Mass/Vol] 1.66 mg/dL High 0.55-1.02 [facility] Comment on above: Order Comment: for h eart cath Result Comment: The validity of the calculated GFR GFRAA in patients over70 years has not been determined. Clinical correlation isessential. Performed By: #### L 500.2500, L300.4310, L100.0100, L300.3900 ####[facility] [address] [place], [address] EST GFR - AA 38 mL/min Low >60 [facility] Comment on above: Order Comment: for h eart cath Result Comment: Afri can Cypriot GFR Calc Performed By: #### L 500.2500, L300.4310, L100.0100, L300.3900 ####[facility] [address] [place], [address] GAP 7 Normal 5-15 [facility] Comment on above: Order Comment: for h eart cath Performed By: #### L 500.2500, L300.4310, L100.0100, L300.3900 ####[facility] [address] [place], [address] GFR/1.73 sq M.predicted among non-blacks MDRD (S/P/Bld) [Vol rate/Area] 31 mL/min/{1.73_m2} Low >60 [facility] Comment on above: Order Comment: for h eart cath Result Comment: Non- GFR Calc Performed By: #### L 500.2500, L300.4310, L100.0100, L300.3900 ####[facility] [address] [place], [address] Glucose [Mass/Vol] 128 mg/dL High 74-106 [facility] Comment on above: Order Comment: for h eart cath Result Comment: Fast ing Glucose result greater than or equal to 126 mg/dLsuggests DIABETES MELLITUS per A.D.A. criteria. Performed By: #### L 500.2500, L300.4310, L100.0100, L300.3900 ####[facility] [address] [place], [address] Potassium [Moles/Vol] 3.8 mmol/L Normal 3.5-5.1 [facility] Comment on above: Order Comment: for h eart cath Performed By: #### L 500.2500, L300.4310, L100.0100, L300.3900 ####[facility] [address] [place], [address] Sodium [Moles/Vol] 137 mmol/L Normal 136-145 [facility] Comment on above: Order Comment: for h eart cath Performed By: #### L 500.2500, L300.4310, L100.0100, L300.3900 ####[facility] [address] [place], [address] Urea nitrogen [Mass/Vol] 35 mg/dL High 7-18 [facility] Comment on above: Order Comment: for h eart cath Performed By: #### L 500.2500, L300.4310, L100.0100, L300.3900 ####[facility] [address] [place], [address] CBC W/Diff, Automatedon 09- 0-4 Absolute Lymph 1.45 X10 3/uL Normal 0.83-4.51 [facility] Comment on above: Order Comment: Comme nts: For heart cath Performed By: #### L 500.2500, L300.4310, L100.0100, L300.3900 ####[facility] [address] [place], [address] Absolute Neut 3.9 X10 3/uL Normal 2.0-7.7 [facility] Comment on above: Order Comment: Comme nts: For heart cath Performed By: #### L 500.2500, L300.4310, L100.0100, L300.3900 ####[facility] [address] [place], [address] Basophils/100 WBC (Bld) 1.1 % High 0-1 [facility] Comment on above: Order Comment: Comme nts: For heart cath Performed By: #### L 500.2500, L300.4310, L100.0100, L300.3900 ####[facility] [address] [place], [address] Eosinophils/100 WBC (Bld) 1.4 % Normal 0-5 [facility] Comment on above: Order Comment: Comme nts: For heart cath Performed By: #### L 500.2500, L300.4310, L100.0100, L300.3900 ####[facility] [address] [place], [address] Erythrocyte distribution width (RBC) [Ratio] 12.6 % Normal 11.6-14.6 [facility] Comment on above: Order Comment: Comme nts: For heart cath Performed By: #### L 500.2500, L300.4310, L100.0100, L300.3900 ####[facility] [address] [place], [address] Hematocrit (Bld) [Volume fraction] 50.3 % High 37-47 [facility] Comment on above: Order Comment: Comme nts: For heart cath Performed By: #### L 500.2500, L300.4310, L100.0100, L300.3900 ####[facility] [address] [place], [address] Hemoglobin (Bld) [Mass/Vol] 16.2 g/dL High 12.0-15.0 [facility] Comment on above: Order Comment: Comme nts: For heart cath Performed By: #### L 500.2500, L300.4310, L100.0100, L300.3900 ####[facility] [address] [place], [address] IG% 0.300 Normal 0.0-0.9 [facility] Comment on above: Order Comment: Comme nts: For heart cath Result Comment: IG% - Immature Granulocytes (promyelocytes, myelocytes andmetamyelocytes) > 1% indicates that a LEFT SHIFT is Present. Performed By: #### L 500.2500, L300.4310, L100.0100, L300.3900 ####[facility] [address] [place], [address] Lymphocytes/100 WBC (Bld) 22.9 % Normal 19-41 [facility] Comment on above: Order Comment: Comme nts: For heart cath Performed By: #### L 500.2500, L300.4310, L100.0100, L300.3900 ####[facility] [address] [place], [address] MCH (RBC) [Entitic mass] 31.3 pg Normal 27.0-32.0 [facility] Comment on above: Order Comment: Comme nts: For heart cath Performed By: #### L 500.2500, L300.4310, L100.0100, L300.3900 ####[facility] [address] [place], [address] MCHC (RBC) [Mass/Vol] 32.2 g/dL Normal 32-36 [facility] Comment on above: Order Comment: Comme nts: For heart cath Performed By: #### L 500.2500, L300.4310, L100.0100, L300.3900 ####[facility] [address] [place], [address] MCV (RBC) [Entitic vol] 97.3 fL Normal 81-99 [facility] Comment on above: Order Comment: Comme nts: For heart cath Performed By: #### L 500.2500, L300.4310, L100.0100, L300.3900 ####[facility] [address] [place], [address] Monocytes/100 WBC (Bld) 12.2 % High 0-10 [facility] Comment on above: Order Comment: Comme nts: For heart cath Performed By: #### L 500.2500, L300.4310, L100.0100, L300.3900 ####[facility] [address] [place], [address] Neutrophils/100 WBC (Bld) 62.1 % Normal 47-70 [facility] Comment on above: Order Comment: Comme nts: For heart cath Performed By: #### L 500.2500, L300.4310, L100.0100, L300.3900 ####[facility] [address] [place], [address] Nucleated RBC (Bld) [#/Vol] 0 10*3/uL Normal 0-5 [facility] Comment on above: Order Comment: Comme nts: For heart cath Performed By: #### L 500.2500, L300.4310, L100.0100, L300.3900 ####[facility] [address] [place], [address] Platelet mean volume (Bld) [Entitic vol] 12.7 fL High 6.2-12.0 [facility] Comment on above: Order Comment: Comme nts: For heart cath Performed By: #### L 500.2500, L300.4310, L100.0100, L300.3900 ####[facility] [address] [place], [address] Platelets (Bld) [#/Vol] 191 10*3/uL Normal 150-450 [facility] Comment on above: Order Comment: Comme nts: For heart cath Performed By: #### L 500.2500, L300.4310, L100.0100, L300.3900 ####[facility] [address] [place], [address] RBC (Bld) [#/Vol] 5.17 10*6/uL Normal 4.2-5.4 [facility] Comment on above: Order Comment: Comme nts: For heart cath Performed By: #### L 500.2500, L300.4310, L100.0100, L300.3900 ####[facility] [address] [place], [address] RDW SD 45.3 fl High 35.1-43.9 [facility] Comment on above: Order Comment: Comme nts: For heart cath Performed By: #### L 500.2500, L300.4310, L100.0100, L300.3900 ####[facility] [address] [place], [address] WBC (Bld) [#/Vol] 6.3 10*3/uL Normal 4.4-11.0 [facility] Comment on above: Order Comment: Comme nts: For heart cath Performed By: #### L 500.2500, L300.4310, L100.0100, L300.3900 ####[facility] [address] [place], [address] Partial Thromboplast Timeon 11-28-2023 aPTT Coag (Bld) [Time] 28.7 s Normal 24.1-36.2 [facility] Comment on above: Order Comment: Comme nts: for heart cath Performed By: #### L 500.2500, L300.4310, L100.0100, L300.3900 ####[facility] [address] [place], [address] Prothrombin Time w/INRon INR Coag (PPP) [Relative time] 1.6 {INR} Normal [facility] Comment on above: Order Comment: Comme nts: for heart cath Performed By: #### L 500.2500, L300.4310, L100.0100, L300.3900 ####[facility] [address] [place], [address] PT Coag (PPP) [Time] 18.7 s High 11.7-14.9 [facility] Comment on above: Order Comment: Comme nts: for heart cath Performed By: #### L 500.2500, L300.4310, L100.0100, L300.3900 ####[facility] [address] [place], [address] ECG 12 lead - CLINIC PERFORM EDon 11-25-2023 Atrial fibrillation -Old anteroseptal infarct. -Diffuse nonspecific T-abnormality. ABNORMAL [facility] 36on 11-22-2023 36 Patient seen in Heart valve Clinic yesterday. Dr. Huffman spoke w/ Dr. Garces @ [facility], agreed for R/LHC to be done in [place]. I spoke w/ Maggie HACKETT in Dr. Garces' office, asked her to call me back with cath date. Need to expedite TAVR due to pt symptoms, will need to coordinate CTA, pt does have CKD, last creat was 1.38 done 08/10 scanned in media. Normal [facility] Office Visiton 11-21-2023 Follow-up visit [id number] Nitza Cally 1940 F Date Provider Department Center 11/21/2023 30265-AESRWTHADDEUS MCKEON [facility] [address] No family history on file Level of Service:52498 [place] OFFICE/OUTPATIENT NEW MODERATE MDM 45 MINUTES Reason for Visit and Comments: Shortness of Breath [968081] Normal [facility] Follow-up visit [id number] Brianne Call 1940 F Date Provider Department Center 11/21/2023 69015-QNNGOIJUAN [place] [facility] [address] No family history on file Level of Service:95666 [place] OFFICE/OUTPATIENT NEW HIGH MDM 60 MINUTES Reason for Visit and Comments: Cardiac Valve Problem [1334] Normal [facility] Follow-up visit [id number] Brianne Call 1940 F Date Provider Department Center 11/21/2023 31594-HJHNUCDXWWIJHARJEET RUIZ [facility] [address] No family history on file Level of Service:44940 [place] OFFICE/OUTPATIENT NEW HIGH MDM 60 MINUTES Reason for Visit and Comments: Cardiac Valve Problem [1334] Normal [facility] PATINSon 11-21-2023 [facility] DISCHARGE INSTRUCTIONS: Follow-up with [facility] (phone: [phone] fax: [phone]) as needed for memory testing. Please BEGIN [...] age and increased risk of falls. Normal [facility] Progress Noteon 11-21-2023 Progress Note [facility] [address] [facility] [address] Dept: [phone] Dept Loc: [phone] Today's Visit Location: TAVR (transcather aortic valve replacement) Clinic [facility] Cardiology [address] [place] [address] Visit type: Senior Health Assessment at TAVR (transcather aortic valve replacement) Clinic Visit Date: 11/21/2023 Reason for Visit: Shortness of Breath Assessment and Plan 1. Nonrheumatic aortic valve stenosis Assessment & Plan: S/p AV replacement by Dr. Nagy in 201209/22/23 Transthoracic Echo (TTE) noted severe aortic stenosis. Mean Gradient of 49. Dr. Garces in [place]. No aortic valve area mentioned. I agree with cardiology plan as discussed with claims collector Dr. Huffman and CTS Dr. Reed on [...] Patient has already named her Power of Navigation Teacher for Healthcare and Finances (Both are her daughter Shama López) I recommended patient follow-up with [facility] (phone: [phone] fax: [phone]) as needed for memory testing. 4. Drug-induced [...] 09/22/23 Transthoracic Echo (TTE) noted severe aortic stenosis. Mean Gradient of 49. Dr. Garces in [place]. No aortic valve area mentioned. A fib [...] no=0 points)0 - patient rents room from [facility]. Rajiv (son) lives w pt Reduce mobility [...] difficulties noted by patient. Able to identify : yes Current events: Does know current [place] President (Lawson Garay). What is the name of the recent virus/pandemic? Patient does know about COVID19 pandemic. Revi (more content not included)... Normal [facility] Progress Note HR 58 bpm today but no syncope, presyncope, falls Patient asymptomatic today Patient taking lopressor 12.5mg po bid - I encouraged patient to discuss with her cardiologists/PCP (primary care provider) regarding change of meds given her advanced age and increased risk of falls Normal [facility] Progress Note [facility] Group: Cardiothoracic Surgery Multidisciplinary Heart Valve Clinic Date: 11/21/23 Patient:Brianne Call 1940 83 y.o. female [id number] Subjective: HPI: Brianne Call 83 y.o. referred [...] Psychiatric/Behavior al: Negative for dysphoric mood. Allergies: Landon inhibitors, Lisinopril, Sacubitril, and Valsartan Past Medical [...] reactive b (more content not included)... Normal [facility] Progress Note Chronic Patient with occasional word-finding difficulties I suspect either normal memory loss for aging or possibly MCI (Mild Cognitive Impairment) Patient has already named her Power of Navigation Teacher for Healthcare and Finances (Both are her daughter Shama López) I recommended patient follow-up with [facility] (phone: [phone] fax: [phone]) as needed for memory testing. Normal [facility] Progress Note Chronic; Stable Asymptomatic May be nearing renal (kidney) dysfunction requiring reduced dose of eliquis (given Cr nearly 1.5 in past and patient's age >80 yo). May need eliquis 2.5mg po bid instead of 5mg po bid in future pending renal (kidney) function Normal [facility] Progress Note meds reviewed; appropriate May [...] missing or doubling up on meds Normal [facility] Progress Note S/p AV replacement by Dr. Nagy in 201209/22/23 Transthoracic Echo (TTE) noted severe aortic stenosis. Mean Gradient of 49. Dr. Garces in [place]. No aortic valve area mentioned. I agree with cardiology plan as discussed with claims collector Dr. Huffman and CTS Dr. Reed on same date regarding next steps for further workup/treatment of cardiac disease which likely includes heart cath +/- TAVR. On this date of evaluation, the patient has sufficient understanding of procedure(s) to consent to the procedure(s) being discussed and has adequate social support(s). Normal [facility] Progress Note [facility] CARDIOLOGY [address] [place] [address] Dept: [phone] Dept Visit type: New : 1940 Reason for Visit: Cardiac Valve Problem Assessment and Plan 1. LV dysfunction 2. Stenosis of prosthetic aortic valve, initial encounter - ECG 12 lead - CLINIC PERFORMED This is a very pleasant 83 y.o. 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 she is clearly in need of aortic valve replacement, likely [id number] TAVR. Will need a diagnostic cath first, [...] up for Recheck on cath complete. Sonya HPI Brianne Call is a very pleasant [...] Negative for dysphoric mood. Allergies Allergen Reactions Landon Inhibitors Other Lisinopril Cough Sacubitril Cough Valsartan [...] Effort: Pulmonary (more content not included)... Normal [facility] Progress Noteon 11-17-2023 Progress Note Brianne Wells Marin 83 y.o. referred by [...] thinner - Eliquis Transthoracic Echocardiogram 09/22/2023 Normal [facility] BNP,B-Type NATRIURETIC PEPTI Delroy 11-09-2023 Natriuretic peptide B (Bld) [Mass/Vol] 330.1 pg/mL High 0-100 [facility] Comment on above: Performed By: #### L 500.2272, L503.0607, L500.4051 ####[facility] [address] [place], [place], [address] Comprehensive Metabolic Prof ilon 11-09-2023 Albumin [Mass/Vol] 3.5 g/dL Normal 3.2-5.0 [facility] Comment on above: Performed By: #### L 500.4100, L503.6620, L500.4050 ####[facility] [address] [place], [address] Albumin/Globulin [Mass ratio] 0.9 {ratio} Normal 0.9-2.4 [facility] Comment on above: Performed By: #### L 500.4100, L503.6620, L500.4050 ####[facility] [address] [place], [address] ALK P 68 U/L Normal 45-117 [facility] Comment on above: Performed By: #### L 500.4100, L503.6620, L500.4050 ####[facility] [address] [place], [address] ALT [Catalytic activity/Vol] 18 U/L Normal 13-56 [facility] Comment on above: Performed By: #### L 500.4100, L503.6620, L500.4050 ####[facility] [address] [place], [address] AST [Catalytic activity/Vol] 25 U/L Normal 15-37 [facility] Comment on above: Result Comment: Slig ht Hemolysis, Result may be falsely increased. Performed By: #### L 500.4100, L503.6620, L500.4050 ####[facility] [address] [place], [address] Bilirubin [Mass/Vol] 1.10 mg/dL High 0.20-1.00 [facility] Comment on above: Result Comment: For patients on eltrombopag therapy, use of Dimension [place] TBIL is not recommended. Performed By: #### L 500.4100, L503.6620, L500.4050 ####[facility] [address] [place], [address] BUN/CRE 17.6 RATIO Normal 10-20 [facility] Comment on above: Performed By: #### L 500.4100, L503.6620, L500.4050 ####[facility] [address] [place], [address] CA,Total 8.8 mg/dL Normal 8.5-10.1 [facility] Comment on above: Performed By: #### L 500.4100, L503.6620, L500.4050 ####[facility] [address] [place], [address] Chloride [Moles/Vol] 104 mmol/L Normal 98-107 [facility] Comment on above: Performed By: #### L 500.4100, L503.6620, L500.4050 ####[facility] [address] [place], [address] CO2 [Moles/Vol] 24.0 mmol/L Normal 21.0-32.0 [facility] Comment on above: Performed By: #### L 500.4100, L503.6620, L500.4050 ####[facility] [address] [place], [address] Creatinine [Mass/Vol] 1.48 mg/dL High 0.55-1.02 [facility] Comment on above: Result Comment: The validity of the calculated GFR GFRAA in patients over70 years has not been determined. Clinical correlation isessential. Performed By: #### L 500.4100, L503.6620, L500.4050 ####[facility] [address] [place], [address] EST GFR - AA 43 mL/min Low >60 [facility] Comment on above: Result Comment: Afri can Cypriot GFR Calc Performed By: #### L 500.4100, L503.6620, L500.4050 ####[facility] [address] [place], [address] GAP 10 Normal 5-15 [facility] Comment on above: Performed By: #### L 500.4100, L503.6620, L500.4050 ####[facility] [address] [place], [address] GFR/1.73 sq M.predicted among non-blacks MDRD (S/P/Bld) [Vol rate/Area] 36 mL/min/{1.73_m2} Low >60 [facility] Comment on above: Result Comment: Non- GFR Calc Performed By: #### L 500.4100, L503.6620, L500.4050 ####[facility] [address] [place], [address] Globulin (S) [Mass/Vol] 3.9 g/dL Normal 2.2-4.2 [facility] Comment on above: Performed By: #### L 500.4100, L503.6620, L500.4050 ####[facility] [address] [place], [address] Glucose [Mass/Vol] 111 mg/dL High 74-106 [facility] Comment on above: Result Comment: Fast ing Glucose result from 100 to 125 mg/dLsuggests IMPAIRED HOMEOSTASIS per A.D.A. criteria. Performed By: #### L 500.4100, L503.6620, L500.4050 ####[facility] [address] [place], [address] Potassium [Moles/Vol] 4.3 mmol/L Normal 3.5-5.1 [facility] Comment on above: Result Comment: Slig ht Hemolysis, Result may be falsely increased. Performed By: #### L 500.4100, L503.6620, L500.4050 ####[facility] [address] [place], [address] Sodium [Moles/Vol] 138 mmol/L Normal 136-145 [facility] Comment on above: Performed By: #### L 500.4100, L503.6620, L500.4050 ####[facility] [address] [place], [address] T PROT 7.4 g/dL Normal 6.4-8.2 [facility] Comment on above: Performed By: #### L 500.4100, L503.6620, L500.4050 ####[facility] [address] [place], [address] Urea nitrogen [Mass/Vol] 26 mg/dL High 7-18 [facility] Comment on above: Performed By: #### L 500.4100, L503.6620, L500.4050 ####[facility] [address] [place], [address] Lipid Profileon 11-09-2023 Cholesterol [Mass/Vol] 175 mg/dL Normal 200 [facility] Comment on above: Result Comment: <200 mg/dL Desirable 200-240 mg/dL Borderline >240 mg/dL High Risk Performed By: #### L 500.4100, L503.6620, L500.4050 ####[facility] [address] [place], [address] Cholesterol in HDL [Mass/Vol] 35 mg/dL Low [facility] Comment on above: Result Comment: The drugs N-Acetylcysteine and Metamizole may falselydepress this assay. Reference Range HDL <40 mg/dL Low HDL Cholesterol HDL >or= 60 mg/dL High HDL Cholesterol Performed By: #### L 500.4100, L503.6620, L500.4050 ####[facility] [address] [place], [address] Cholesterol in LDL [Mass/Vol] 92 mg/dL Normal 0-130 [facility] Comment on above: Performed By: #### L 500.4100, L503.6620, L500.4050 ####[facility] [address] [place], [address] Cholesterol in VLDL [Mass/Vol] 48 mg/dL High 5-40 [facility] Comment on above: Performed By: #### L 500.4100, L503.6620, L500.4050 ####[facility] [address] [place], [address] Triglyceride [Mass/Vol] 242 mg/dL High [facility] Comment on above: Result Comment: The drugs N-Acetylcysteine and Metamizole may falselydepress this assay.Serum Triglycerides Reference Interval Normal <150 mg/dL Borderline high 150 - 199 mg/dL High 200 - 499 mg/dL Very High > or = 500 mg/dL Performed By: #### L 500.4100, L503.6620, L500.4050 ####[facility] [address] [place], [address] 12 Lead EKG performed by BMS on 11-08-2023 12 Lead EKG performed by BMS Normal [facility] BNP,B-Type NATRIURETIC PEPTI Delroy 11-08-2023 Natriuretic peptide B (Bld) [Mass/Vol] 346.5 pg/mL High 0-100 [facility] Comment on above: Performed By: #### L 500.4100, L503.6620, L500.4050 ####[facility] [address] [place], [address] Cardiology Visit Reporton Cardiology Visit Report Normal [facility] Chest PA and Lateralon 11-07 Chest PA and Lateral Normal [facility] Comprehensive Metabolic Prof ilon 11-08-2023 ALB Normal 3.2-5.0 [facility] Comment on above: Result Comment: no t ube in lab Performed By: #### L 500.4100, L503.6620, L500.4050 ####[facility] [address] [place], [address] ALK P Normal 45-117 [facility] Comment on above: Result Comment: no t ube in lab Performed By: #### L 500.4100, L503.6620, L500.4050 ####[facility] [address] [place], [address] ALT Normal 13-56 [facility] Comment on above: Result Comment: no t ube in lab Performed By: #### L 500.4100, L503.6620, L500.4050 ####[facility] [address] [place], [address] AST Normal 15-37 [facility] Comment on above: Result Comment: no t ube in lab Performed By: #### L 500.4100, L503.6620, L500.4050 ####[facility] [address] [place], [address] BUN Normal 7-18 [facility] Comment on above: Result Comment: no t ube in lab Performed By: #### L 500.4100, L503.6620, L500.4050 ####[facility] [address] [place], [address] BUN/CRE Normal 10-20 [facility] Comment on above: Result Comment: no t ube in lab Performed By: #### L 500.4100, L503.6620, L500.4050 ####[facility] [address] [place], [address] CA,Total Normal 8.5-10.1 [facility] Comment on above: Result Comment: no t ube in lab Performed By: #### L 500.4100, L503.6620, L500.4050 ####[facility] [address] [place], [address] CL Normal 98-107 [facility] Comment on above: Result Comment: no t ube in lab Performed By: #### L 500.4100, L503.6620, L500.4050 ####[facility] [address] [place], [address] CO2 Normal 21.0-32.0 [facility] Comment on above: Result Comment: no t ube in lab Performed By: #### L 500.4100, L503.6620, L500.4050 ####[facility] [address] [place], [address] CREAT,SERUM Normal 0.55-1.02 [facility] Comment on above: Result Comment: no t ube in lab Performed By: #### L 500.4100, L503.6620, L500.4050 ####[facility] [address] [place], [address] EST GFR Normal >60 [facility] Comment on above: Result Comment: no t ube in lab Performed By: #### L 500.4100, L503.6620, L500.4050 ####[facility] [address] [place], [address] EST GFR - AA Normal >60 [facility] Comment on above: Result Comment: no t ube in lab Performed By: #### L 500.4100, L503.6620, L500.4050 ####[facility] [address] [place], [address] GAP Normal 5-15 [facility] Comment on above: Result Comment: no t ube in lab Performed By: #### L 500.4100, L503.6620, L500.4050 ####[facility] [address] [place], [address] GLU Normal 74-106 [facility] Comment on above: Result Comment: no t ube in lab Performed By: #### L 500.4100, L503.6620, L500.4050 ####[facility] [address] [place], [address] Potassium Normal 3.5-5.1 [facility] Comment on above: Result Comment: no t ube in lab Performed By: #### L 500.4100, L503.6620, L500.4050 ####[facility] [address] [place], [address] T BILI Normal 0.20-1.00 [facility] Comment on above: Result Comment: no t ube in lab Performed By: #### L 500.4100, L503.6620, L500.4050 ####[facility] [address] [place], [address] T PROT Normal 6.4-8.2 [facility] Comment on above: Result Comment: no t ube in lab Performed By: #### L 500.4100, L503.6620, L500.4050 ####[facility] [address] [place], [address] Comprehensive Metabolic Profil Normal 136-145 [facility] Comment on above: Result Comment: no t ube in lab Performed By: #### L 500.4100, L503.6620, L500.4050 ####[facility] [address] [place], [address] Lipid Profileon 11-08-2023 HDL Normal [facility] Comment on above: Result Comment: no t ube in labThe drugs N-Acetylcysteine and Metamizole may falselydepress this assay. Performed By: #### L 500.4100, L503.6620, L500.4050 ####[facility] [address] [place], [address] TRIG Normal [facility] Comment on above: Result Comment: no t ube in labThe drugs N-Acetylcysteine and Metamizole may falselydepress this assay. Performed By: #### L 500.4100, L503.6620, L500.4050 ####[facility] [address] [place], [address] CHOL Normal 200 [facility] Comment on above: Result Comment: no t ube in lab Performed By: #### L 500.4100, L503.6620, L500.4050 ####[facility] [address] [place], [address] LDL Normal 0-130 [facility] Comment on above: Result Comment: no t ube in lab Performed By: #### L 500.4100, L503.6620, L500.4050 ####[facility] [address] [place], [address] VLDL Normal 5-40 [facility] Comment on above: Result Comment: no t ube in lab Performed By: #### L 500.4100, L503.6620, L500.4050 ####[facility] [address] [place], [address] Echo Completeon 09-22-2023 Echo Complete Normal [facility] Basic Metabolic Profile (BMP )on 09-14-2023 BUN/CRE 13.1 RATIO Normal 10-20 [facility] Comment on above: Performed By: #### L 500.2500 ####[facility] [address] [place], [address] CA,Total 8.9 mg/dL Normal 8.5-10.1 [facility] Comment on above: Performed By: #### L 500.2500 ####[facility] [address] [place], [address] Chloride [Moles/Vol] 106 mmol/L Normal 98-107 [facility] Comment on above: Performed By: #### L 500.2500 ####[facility] [address] [place], [address] CO2 [Moles/Vol] 27.0 mmol/L Normal 21.0-32.0 [facility] Comment on above: Performed By: #### L 500.2500 ####[facility] [address] [place], [address] Creatinine [Mass/Vol] 1.37 mg/dL High 0.55-1.02 [facility] Comment on above: Result Comment: The validity of the calculated GFR GFRAA in patients over70 years has not been determined. Clinical correlation isessential. Performed By: #### L 500.2500 ####[facility] [address] [place], [address] EST GFR - AA 47 mL/min Low >60 [facility] Comment on above: Result Comment: Afri can Cypriot GFR Calc Performed By: #### L 500.2500 ####[facility] [address] [place], [address] GAP 4 Low 5-15 [facility] Comment on above: Performed By: #### L 500.2500 ####[facility] [address] [place], [address] GFR/1.73 sq M.predicted among non-blacks MDRD (S/P/Bld) [Vol rate/Area] 39 mL/min/{1.73_m2} Low >60 [facility] Comment on above: Result Comment: Non- GFR Calc Performed By: #### L 500.2500 ####[facility] [address] [place], [address] Glucose [Mass/Vol] 106 mg/dL Normal 74-106 [facility] Comment on above: Result Comment: Fast ing Glucose result from 100 to 125 mg/dLsuggests IMPAIRED HOMEOSTASIS per A.D.A. criteria. Performed By: #### L 500.2500 ####[facility] [address] [place], [address] Potassium [Moles/Vol] 4.5 mmol/L Normal 3.5-5.1 [facility] Comment on above: Performed By: #### L 500.2500 ####[facility] [address] [place], [place], [address] Sodium [Moles/Vol] 137 mmol/L Normal 136-145 [facility] Comment on above: Performed By: #### L 500.2500 ####[facility] [address] [place], [place], [address] Urea nitrogen [Mass/Vol] 18 mg/dL Normal 7-18 [facility] Comment on above: Performed By: #### L 500.2500 ####[facility] [address] [place], [place], [address] Absolute lymphocyte countOrd ered By: Scott Hull on 07-13-2023 Lymphocytes Auto (Unsp spec) [#/Vol] 1.36 10*3/uL 0.83-4.51 [facility] Automated lymphocyte count a s percentage of total leukocytesOrdered By: Scott Hull on 07-13-2023 Lymphocytes/100 WBC Auto (Unsp spec) 23.9 % 19-41 [facility] Basophil percentageOrdered B y: Scott Hull on 07-13-2023 Basophils/100 WBC (Bld) 1.4 % 0-1 [facility] Bilirubin [Mass/Vol] 1.30 mg/dL 0.20-1.00 [facility] Comment on above: For patients on eltr ombopag therapy, use of Dimension [place] TBIL is not recommended. Chloride [Moles/Vol] 107 mmol/L 98-107 [facility] Cholesterol [Mass/Vol] 170 mg/dL <200 [facility] Comment on above: <200 mg/dL Desirable 200-240 mg/dL Borderline >240 mg/dL High Risk Eosinophils/100 WBC (Bld) 1.6 % 0-5 [facility] Glucose [Mass/Vol] 108 mg/dL 74-106 [facility] Comment on above: Fasting Glucose resu lt from 100 to 125 mg/dL suggests IMPAIRED HOMEOSTASIS per A.D.A. criteria. Hemoglobin (Bld) [Mass/Vol] 15.2 g/dL 12.0-15.0 [facility] Monocytes/100 WBC (Bld) 12.6 % 0-10 [facility] Neutrophils (Bld) [#/Vol] 3.4 10*3/uL 2.0-7.7 [facility] Neutrophils/100 WBC (Bld) 59.8 % 47-70 [facility] Potassium [Moles/Vol] 4.2 mmol/L 3.5-5.1 [facility] Protein [Mass/Vol] 7.0 g/dL 6.4-8.2 [facility] Sodium [Moles/Vol] 138 mmol/L 136-145 [facility] Triglyceride [Mass/Vol] 186 mg/dL <199 [facility] Comment on above: The drugs N-Acetylcy steine and Metamizole may falsely depress this assay.Serum Triglycerides Reference Interval Normal <150 mg/dL Borderline high 150 - 199 mg/dL High 200 - 499 mg/dL Very High > or = 500 mg/dL WBC (Bld) [#/Vol] 5.7 10*3/uL 4.4-11.0 [facility] Determination of erythrocyte mean corpuscular volume (MCV)Ordered By: Scott Hull on 07-13-2023 MCV (RBC) [Entitic vol] 97.0 fL 81-99 [facility] Erythrocyte distribution wid th ratioOrdered By: [facility] on 07-13-2023 Erythrocyte distribution width (RBC) [Ratio] 13.1 % 11.6-14.6 [facility] Erythrocyte distribution wid th standard deviationOrdered By: [facility] on 07-13-2023 Erythrocyte distribution width (RBC) [Entitic vol] 47.2 fL 35.1-43.9 [facility] Hematocrit Auto (Bld) [Volum e fraction][facility] Hematocrit (Bld) [Volume fraction] 46.0 % 37-47 [facility] Immature granulocytes/100 WB C Auto (Bld)Ordered By: Scott Kurtis on 07-13-2023 Immature granulocytes/100 WBC (Bld) 0.700 % 0.0-0.9 [facility] Comment on above: IG% - Immature Granu locytes (promyelocytes, myelocytes and metamyelocytes) > 1% indicates that a LEFT SHIFT is Present. Laboratory - Chemistry and C hemistry - challengeOrdered By: Scott Hull on 07-13-2023 Albumin/Globulin [Mass ratio] 0.9 {ratio} 0.9-2.4 [facility] ALP [Catalytic activity/Vol] 64 U/L 45-117 [facility] ALT [Catalytic activity/Vol] 19 U/L 13-56 [facility] Cholesterol in HDL [Mass/Vol] 37 mg/dL >40 [facility] Comment on above: The drugs N-Acetylcy steine and Metamizole may falsely depress this assay. Reference Range HDL <40 mg/dL Low HDL Cholesterol HDL >or= 60 mg/dL High HDL Cholesterol Cholesterol in LDL [Mass/Vol] 96 mg/dL 0-130 [facility] CO2 [Moles/Vol] 26.0 mmol/L 21.0-32.0 [facility] Globulin (S) [Mass/Vol] 3.6 g/dL 2.2-4.2 [facility] Urea nitrogen/Creatinine [Mass ratio] 15.4 mg/mg 10-20 [facility] Laboratory - Hematology and Cell countsOrdered By: Scott Hull on 07-13-2023 MCH (RBC) [Entitic mass] 32.1 pg 27.0-32.0 [facility] MCHC (RBC) [Mass/Vol] 33.0 g/dL 32-36 [facility] Nucleated RBC/100 WBC (Bld) [Ratio] 0 % 0-5 [facility] Platelet mean volume (Bld) [Entitic vol] 12.7 fL 6.2-12.0 [facility] Platelets (Bld) [#/Vol] 190 10*3/uL 150-450 [facility] No Panel InformationOrdered By: Scott Hull on 07-13-2023 Estimated GFR (MDRD) Amer 50 mL/min >60 [facility] Comment on above: GFR Calc Estimated GFR (MDRD) Non-Af Amer 42 mL/min >60 [facility] Comment on above: Non- GFR Calc Vitamin D 25-Hydroxy 21.5 ng/mL [facility] Comment on above: Vitamin D 25(OH) Sta tus Range Deficiency <20 ng/mL (50nmol/L) Insufficiency 20 - 30 ng/mL (50 - 75 nmol/L) Sufficiency 30 - 100 ng/mL (75 - 250 nmol/L) Toxicity >100 ng/mL (>250 nmol/L) VLDL Cholesterol 37 mg/dL 5-40 [facility] RBC Auto (Bld) [#/Vol]Ordere d By: Scott Hull on 07-13-2023 RBC (Bld) [#/Vol] 4.74 10*6/uL 4.2-5.4 [facility] Serum or plasma calcium leah urement (mass/volume)Ordered By: Scott Hull on 07-13-2023 Calcium [Mass/Vol] 8.8 mg/dL 8.5-10.1 [facility] Serum or plasma creatinine m easurement (mass/volume)Ordered By: Scott Hull on 07-13-2023 Creatinine [Mass/Vol] 1.30 mg/dL 0.55-1.02 [facility] Comment on above: The validity of the calculated GFR & GFRAA in patients over 70 years has not been determined. Clinical correlation is essential. Serum or plasma thyroid stim ulating hormone (TSH) measurement (units/volume)Ordered By: Scott Hull 07-13-2023 TSH Qn 2.73 uIU/mL 0.358-3.74 [facility] Serum or plasma urea nitroge n measurement (mass/volume)Ordered By: Scott Hull 07-13-2023 Urea nitrogen [Mass/Vol] 20 mg/dL 7-18 [facility] Serum or plasma uric acid me asurement (mass/volume)Ordered By: Scott Hull 07-13-2023 Urate [Mass/Vol] 4.5 mg/dL 2.6-6.0 [facility] Comment on above: The drugs N-Acetylcy steine and Metamizole may falsely depress this assay. Thin prep Papanicolaou smear with manual screeningOrdered By: Scott Hull on 07-13-2023 Thin prep Papanicolaou smear with manual screening 3.4 g/dL 3.2-5.0 [facility] Thin prep Papanicolaou smear with manual screening 26 U/L 15-37 [facility] Thin prep Papanicolaou smear with manual screening 5 5-15 [facility] Absolute lymphocyte countOrd ered By: Scott Hull on 01-05-2023 Lymphocytes Auto (Unsp spec) [#/Vol] 2.04 10*3/uL 0.83-4.51 [facility] [facility] Bas[facility] percentageOrdered B y: Scott Hull on 01-05-2023 Basophils/100 WBC (Bld) 1.1 % 0-1 [facility] Bilirubin [Mass/Vol] 0.90 mg/dL 0.20-1.00 [facility] Comment on above: For patients on eltr ombopag therapy, use of Dimension [place] TBIL is not recommended. Chloride [Moles/Vol] 108 mmol/L 98-107 [facility] Eosinophils/100 WBC (Bld) 2.1 % 0-5 [facility] Glucose [Mass/Vol] 108 mg/dL 74-106 [facility] Comment on above: Fasting Glucose resu lt from 100 to 125 mg/dL suggests IMPAIRED HOMEOSTASIS per A.D.A. criteria. Neutrophils (Bld) [#/Vol] 3.9 10*3/uL 2.0-7.7 [facility] Neutrophils/100 WBC (Bld) 54.6 % 47-70 [facility] Potassium [Moles/Vol] 4.1 mmol/L 3.5-5.1 [facility] Protein [Mass/Vol] 7.2 g/dL 6.4-8.2 [facility] Sodium [Moles/Vol] 140 mmol/L 136-145 [facility] WBC (Bld) [#/Vol] 7.1 10*3/uL 4.4-11.0 [facility] Blood erythrocytes count (nu mber/volume)Ordered By: Scott Hull on 01-05-2023 RBC (Bld) [#/Vol] 4.90 10*6/uL 4.2-5.4 [facility] Blood hemoglobin measurement (mass/volume)Ordered By: Scott Hull on 01-05-2023 Hemoglobin (Bld) [Mass/Vol] 15.7 g/dL 12.0-15.0 [facility] Blood lymphocytes/100 leukoc ytesOrdered By: Scott Hull on 01-05-2023 Lymphocytes/100 WBC (Bld) 28.6 % 19-41 [facility] Blood monocytes/100 leukocyt esOrdered By: Scott Kurtis on 01-05-2023 Monocytes/100 WBC (Bld) 13.0 % 0-10 [facility] Blood platelet mean volumeOr dered By: [facility] on 01-05-2023 Platelet mean volume (Bld) [Entitic vol] 12.0 fL 6.2-12.0 [facility] Determination of erythrocyte mean corpuscular volume (MCV)Ordered By: [facility] on 01-05-2023 MCV (RBC) [Entitic vol] 98.2 fL 81-99 [facility] Hematocrit Auto (Bld) [Volum e fraction]Ordered By: [facility] on 01-05-2023 Hematocrit (Bld) [Volume fraction] 48.1 % 37-47 [facility] Laboratory - Chemistry and C hemistry - challengeOrdered By: [facility] on 01-05-2023 ALP [Catalytic activity/Vol] 63 U/L 45-117 [facility] ALT [Catalytic activity/Vol] 22 U/L 13-56 [facility] CO2 [Moles/Vol] 23.0 mmol/L 21.0-32.0 [facility] Globulin (S) [Mass/Vol] 3.9 g/dL 2.2-4.2 [facility] Urea nitrogen/Creatinine [Mass ratio] 15.3 mg/mg 10-20 [facility] Laboratory - Hematology and Cell countsOrdered By: [facility] on 01-05-2023 Erythrocyte distribution width (RBC) [Entitic vol] 49.0 fL 35.1-43.9 [facility] Erythrocyte distribution width (RBC) [Ratio] 13.5 % 11.6-14.6 [facility] Immature granulocytes/100 WBC (Bld) 0.600 % 0.0-0.9 [facility] Comment on above: IG% - Immature Granu locytes (promyelocytes, myelocytes and metamyelocytes) > 1% indicates that a LEFT SHIFT is Present. MCH (RBC) [Entitic mass] 32.0 pg 27.0-32.0 [facility] Nucleated RBC/100 WBC (Bld) [Ratio] 0 % 0-5 [facility] MCHC Auto (RBC) [Mass/Vol]Or dered By: Scott Hull on 01-05-2023 MCHC (RBC) [Mass/Vol] 32.6 g/dL 32-36 [facility] No Panel InformationOrdered By: Scott Hull on 01-05-2023 Estimated GFR (MDRD) Amer 56 mL/min >60 [facility] Comment on above: GFR Calc Estimated GFR (MDRD) Non-Af Amer 47 mL/min >60 [facility] Comment on above: Non- GFR Calc Thyroid Stimulating Hormone (TSH) 2.88 uIU/mL 0.358-3.74 [facility] Vitamin D 25-Hydroxy 16.6 ng/mL [facility] Comment on above: Vitamin D 25(OH) Sta tus Range Deficiency <20 ng/mL (50nmol/L) Insufficiency 20 - 30 ng/mL (50 - 75 nmol/L) Sufficiency 30 - 100 ng/mL (75 - 250 nmol/L) Toxicity >100 ng/mL (>250 nmol/L) Platelets bldOrdered By: Scott Hull on 01-05-2023 Platelets (Bld) [#/Vol] 227 10*3/uL 150-450 [facility] Serum or plasma albumin leah urement (mass/volume)Ordered By: Scott Hull on 01-05-2023 Albumin [Mass/Vol] 3.3 g/dL 3.2-5.0 [facility] Serum or plasma albumin/glob ulin mass ratioOrdered By: Scott Hull 01-05-2023 Albumin/Globulin [Mass ratio] 0.8 {ratio} 0.9-2.4 [facility] Serum or plasma calcium leah urement (mass/volume)Ordered By: Scott Hull on 01-05-2023 Calcium [Mass/Vol] 8.7 mg/dL 8.5-10.1 [facility] Serum or plasma creatinine m easurement (mass/volume)Ordered By: Scott Hull on 01-05-2023 Creatinine [Mass/Vol] 1.18 mg/dL 0.55-1.02 [facility] Comment on above: The validity of the calculated GFR & GFRAA in patients over 70 years has not been determined. Clinical correlation is essential. Serum or plasma urea nitroge n measurement (mass/volume)Ordered By: Scott Hull on 01-05-2023 Urea nitrogen [Mass/Vol] 18 mg/dL 7-18 [facility] Serum or plasma uric acid me asurement (mass/volume)Ordered By: Scott Hull on 01-05-2023 Urate [Mass/Vol] 4.3 mg/dL 2.6-6.0 [facility] Comment on above: The drugs N-Acetylcy steine and Metamizole may falsely depress this assay. Thin prep Papanicolaou smear with manual screeningOrdered By: Scott Hull on 01-05-2023 Thin prep Papanicolaou smear with manual screening 18 U/L 15-37 [facility] Thin prep Papanicolaou smear with manual screening 9 5-15 [facility] Absolute lymphocyte countOrd ered By: Dr. Hull on 06-30-2022 Lymphocytes Auto (Unsp spec) [#/Vol] 1.80 10*3/uL 0.83-4.51 [facility] Basophil percentageOrdered B y: Dr. Hull on 06-30-2022 Basophils/100 WBC (Bld) 1.3 % 0-1 [facility] Bilirubin [Mass/Vol] 0.80 mg/dL 0.20-1.00 [facility] Comment on above: For patients on eltr ombopag therapy, use of Dimension [place] TBIL is not recommended. Chloride [Moles/Vol] 104 mmol/L 98-107 [facility] Eosinophils/100 WBC (Bld) 1.6 % 0-5 [facility] Glucose [Mass/Vol] 106 mg/dL 74-106 [facility] Comment on above: Fasting Glucose resu lt from 100 to 125 mg/dL suggests IMPAIRED HOMEOSTASIS per A.D.A. criteria. Neutrophils (Bld) [#/Vol] 5.8 10*3/uL 2.0-7.7 [facility] Neutrophils/100 WBC (Bld) 66.1 % 47-70 [facility] Potassium [Moles/Vol] 4.5 mmol/L 3.5-5.1 [facility] Protein [Mass/Vol] 6.9 g/dL 6.4-8.2 [facility] Sodium [Moles/Vol] 136 mmol/L 136-145 [facility] WBC (Bld) [#/Vol] 8.8 10*3/uL 4.4-11.0 [facility] Blood erythrocytes count (nu mber/volume)Ordered By: Dr. Hull on 06-30-2022 RBC (Bld) [#/Vol] 4.84 10*6/uL 4.2-5.4 [facility] Blood hemoglobin measurement (mass/volume)Ordered By: Dr. Hull on 06-30-2022 Hemoglobin (Bld) [Mass/Vol] 15.7 g/dL 12.0-15.0 [facility] Blood lymphocytes/100 leukoc ytesOrdered By: Dr. Hull on 06-30-2022 Lymphocytes/100 WBC (Bld) 20.5 % 19-41 [facility] Blood monocytes/100 leukocyt esOrdered By: Dr. Hull on 06-30-2022 Monocytes/100 WBC (Bld) 9.6 % 0-10 [facility] Blood platelet mean volumeOr dered By: Dr. Hull on 06-30-2022 Platelet mean volume (Bld) [Entitic vol] 12.5 fL 6.2-12.0 [facility] Determination of erythrocyte mean corpuscular volume (MCV)Ordered By: Dr. Hull on 06-30-2022 MCV (RBC) [Entitic vol] 97.5 fL 81-99 [facility] Hematocrit Auto (Bld) [Volum e fraction]Ordered By: Dr. Hull on 06-30-2022 Hematocrit (Bld) [Volume fraction] 47.2 % 37-47 [facility] Laboratory - Chemistry and C hemistry - challengeOrdered By: Dr. Hull on 06-30-2022 ALP [Catalytic activity/Vol] 74 U/L 45-117 [facility] ALT [Catalytic activity/Vol] 21 U/L 13-56 [facility] CO2 [Moles/Vol] 23.0 mmol/L 21.0-32.0 [facility] Globulin (S) [Mass/Vol] 3.4 g/dL 2.2-4.2 [facility] Urea nitrogen/Creatinine [Mass ratio] 18.2 mg/mg 10-20 [facility] Laboratory - Hematology and Cell countsOrdered By: Dr. Hull on 06-30-2022 Erythrocyte distribution width (RBC) [Entitic vol] 47.4 fL 35.1-43.9 [facility] Erythrocyte distribution width (RBC) [Ratio] 13.2 % 11.6-14.6 [facility] Immature granulocytes/100 WBC (Bld) 0.900 % 0.0-0.9 [facility] Comment on above: IG% - Immature Granu locytes (promyelocytes, myelocytes and metamyelocytes) > 1% indicates that a LEFT SHIFT is Present. MCH (RBC) [Entitic mass] 32.4 pg 27.0-32.0 [facility] Nucleated RBC/100 WBC (Bld) [Ratio] 0 % 0-5 [facility] MCHC Auto (RBC) [Mass/Vol]Or dered By: Dr. Hull on 06-30-2022 MCHC (RBC) [Mass/Vol] 33.3 g/dL 32-36 [facility] No Panel InformationOrdered By: Dr. Hull on 06-30-2022 Estimated GFR (MDRD) Amer 48 mL/min >60 [facility] Comment on above: GFR Calc Estimated GFR (MDRD) Non-Af Amer 39 mL/min >60 [facility] Comment on above: Non- GFR Calc Thyroid Stimulating Hormone (TSH) 3.20 uIU/mL 0.358-3.74 [facility] Vitamin D 25-Hydroxy 33.6 ng/mL [facility] Comment on above: Vitamin D 25(OH) Sta tus Range Deficiency <20 ng/mL (50nmol/L) Insufficiency 20 - 30 ng/mL (50 - 75 nmol/L) Sufficiency 30 - 100 ng/mL (75 - 250 nmol/L) Toxicity >100 ng/mL (>250 nmol/L) Platelets bldOrdered By: Dr. Hull on 06-30-2022 Platelets (Bld) [#/Vol] 252 10*3/uL 150-450 [facility] Serum or plasma albumin leah urement (mass/volume)Ordered By: Dr. Hull on 06-30-2022 Albumin [Mass/Vol] 3.5 g/dL 3.2-5.0 [facility] Serum or plasma albumin/glob ulin mass ratioOrdered By: Dr. Hull on 06-30-2022 Albumin/Globulin [Mass ratio] 1.0 {ratio} 0.9-2.4 [facility] Serum or plasma calcium leah urement (mass/volume)Ordered By: Dr. Hull on 06-30-2022 Calcium [Mass/Vol] 9.0 mg/dL 8.5-10.1 [facility] Serum or plasma creatinine m easurement (mass/volume)Ordered By: Dr. Hull on 06-30-2022 Creatinine [Mass/Vol] 1.37 mg/dL 0.55-1.02 [facility] Comment on above: The validity of the calculated GFR & GFRAA in patients over 70 years has not been determined. Clinical correlation is essential. Serum or plasma urea nitroge n measurement (mass/volume)Ordered By: Dr. Hull on 06-30-2022 Urea nitrogen [Mass/Vol] 25 mg/dL 7-18 [facility] Serum or plasma uric acid me asurement (mass/volume)Ordered By: Dr. Hull on 06-30-2022 Urate [Mass/Vol] 3.9 mg/dL 2.6-6.0 [facility] Comment on above: The drugs N-Acetylcy steine and Metamizole may falsely depress this assay. Thin prep Papanicolaou smear with manual screeningOrdered By: Dr. Hull on 06-30-2022 Thin prep Papanicolaou smear with manual screening 25 U/L 15-37 [facility] Thin prep Papanicolaou smear with manual screening 9 5-15 [facility] Absolute lymphocyte counton 12-30-2021 Lymphocytes Auto (Unsp spec) [#/Vol] 1.81 10*3/uL 0.83-4.51 [facility] Work Phone: Basophil percentageon 2021 Basophils/100 WBC (Bld) 1.1 % 0-1 [facility] Work Phone: Bilirubin [Mass/Vol] 1.10 mg/dL 0.20-1.00 [facility] Work Phone: Comment on above: For patients on eltr ombopag therapy, use of Dimension [place] TBIL is not recommended. Chloride [Moles/Vol] 108 mmol/L 98-107 [facility] Work Phone: Eosinophils/100 WBC (Bld) 1.4 % 0-5 [facility] Work Phone: Glucose [Mass/Vol] 104 mg/dL 74-106 [facility] Work Phone: Comment on above: Fasting Glucose resu lt from 100 to 125 mg/dL suggests IMPAIRED HOMEOSTASIS per A.D.A. criteria. Neutrophils (Bld) [#/Vol] 3.7 10*3/uL 2.0-7.7 [facility] Work Phone: Neutrophils/100 WBC (Bld) 55.7 % 47-70 [facility] Work Phone: Potassium [Moles/Vol] 4.1 mmol/L 3.5-5.1 [facility] Work Phone: Protein [Mass/Vol] 7.3 g/dL 6.4-8.2 [facility] Work Phone: Sodium [Moles/Vol] 138 mmol/L 136-145 [facility] Work Phone: WBC (Bld) [#/Vol] 6.6 10*3/uL 4.4-11.0 [facility] Work Phone: Blood erythrocytes count (nu mber/volume)on 12-30-2021 RBC (Bld) [#/Vol] 4.82 10*6/uL 4.2-5.4 [facility] Work Phone: Blood hemoglobin measurement (mass/volume)on 12-30-2021 Hemoglobin (Bld) [Mass/Vol] 15.4 g/dL 12.0-15.0 [facility] Work Phone: Blood lymphocytes/100 leukoc yteson 12-30-2021 Lymphocytes/100 WBC (Bld) 27.5 % 19-41 [facility] Work Phone: Blood monocytes/100 leukocyt eson 12-30-2021 Monocytes/100 WBC (Bld) 13.7 % 0-10 [facility] Work Phone: Blood platelet mean volumeon 12-30-2021 Platelet mean volume (Bld) [Entitic vol] 12.6 fL 6.2-12.0 [facility] Work Phone: Determination of erythrocyte mean corpuscular volume (MCV)on 12-30-2021 MCV (RBC) [Entitic vol] 96.3 fL 81-99 [facility] Work Phone: Hematocrit Auto (Bld) [Volum e fraction]on 12-30-2021 Hematocrit (Bld) [Volume fraction] 46.4 % 37-47 [facility] Work Phone: Laboratory - Chemistry and C hemistry - challengeon 12-30-2021 ALP [Catalytic activity/Vol] 78 U/L 45-117 [facility] Work Phone: ALT [Catalytic activity/Vol] 23 U/L 13-56 [facility] Work Phone: CO2 [Moles/Vol] 23.0 mmol/L 21.0-32.0 [facility] Work Phone: Globulin (S) [Mass/Vol] 3.9 g/dL 2.2-4.2 [facility] Work Phone: Urea nitrogen/Creatinine [Mass ratio] 19.0 mg/mg 10-20 [facility] Work Phone: Laboratory - Hematology and Cell countson 12-30-2021 Erythrocyte distribution width (RBC) [Entitic vol] 45.9 fL 35.1-43.9 [facility] Work Phone: Erythrocyte distribution width (RBC) [Ratio] 13.0 % 11.6-14.6 [facility] Work Phone: Immature granulocytes/100 WBC (Bld) 0.600 % 0.0-0.9 [facility] Work Phone: Comment on above: IG% - Immature Granu locytes (promyelocytes, myelocytes and metamyelocytes) > 1% indicates that a LEFT SHIFT is Present. MCH (RBC) [Entitic mass] 32.0 pg 27.0-32.0 [facility] Work Phone: Nucleated RBC/100 WBC (Bld) [Ratio] 0 % 0-5 [facility] Work Phone: MCHC Auto (RBC) [Mass/Vol]on 12-30-2021 MCHC (RBC) [Mass/Vol] 33.2 g/dL 32-36 [facility] Work Phone: No Panel Informationon 12-30 Estimated GFR (MDRD) Amer 58 mL/min >60 [facility] Work Phone: Comment on above: GFR Calc Estimated GFR (MDRD) Non-Af Amer 48 mL/min >60 [facility] Work Phone: Comment on above: Non- GFR Calc Thyroid Stimulating Hormone (TSH) 2.92 uIU/mL 0.358-3.74 [facility] Work Phone: Vitamin D 25-Hydroxy 18.4 ng/mL [facility] Work Phone: Comment on above: Vitamin D 25(OH) Sta tus Range Deficiency <20 ng/mL (50nmol/L) Insufficiency 20 - 30 ng/mL (50 - 75 nmol/L) Sufficiency 30 - 100 ng/mL (75 - 250 nmol/L) Toxicity >100 ng/mL (>250 nmol/L) Platelets bldon 12-30-2021 Platelets (Bld) [#/Vol] 222 10*3/uL 150-450 [facility] Work Phone: Serum or plasma albumin leah urement (mass/volume)on 12-30-2021 Albumin [Mass/Vol] 3.4 g/dL 3.2-5.0 [facility] Work Phone: Serum or plasma albumin/glob ulin mass ratioon 12-30-2021 Albumin/Globulin [Mass ratio] 0.9 {ratio} 0.9-2.4 [facility] Work Phone: Serum or plasma calcium leah urement (mass/volume)on 12-30-2021 Calcium [Mass/Vol] 9.1 mg/dL 8.5-10.1 [facility] Work Phone: Serum or plasma creatinine m easurement (mass/volume)on 12-30-2021 Creatinine [Mass/Vol] 1.16 mg/dL 0.55-1.02 [facility] Work Phone: Comment on above: The validity of the calculated GFR & GFRAA in patients over 70 years has not been determined. Clinical correlation is essential. Serum or plasma urea nitroge n measurement (mass/volume)on 12-30-2021 Urea nitrogen [Mass/Vol] 22 mg/dL 7-18 [facility] Work Phone: Serum or plasma uric acid me asurement (mass/volume)on 12-30-2021 Urate [Mass/Vol] 4.1 mg/dL 2.6-6.0 [facility] Work Phone: Comment on above: The drugs N-Acetylcy steine and Metamizole may falsely depress this assay. Thin prep Papanicolaou smear with manual screeningon 12-30-2021 Thin prep Papanicolaou smear with manual screening 22 U/L 15-37 [facility] Work Phone: Thin prep Papanicolaou smear with manual screening 7 5-15 [facility] Work Phone: Absolute lymphocyte counton 06-30-2021 Lymphocytes Auto (Unsp spec) [#/Vol] 1.74 10*3/uL 0.83-4.51 [facility] Work Phone: Basophil percentageon 2021 Basophils/100 WBC (Bld) 1.4 % 0-1 [facility] Work Phone: Bilirubin [Mass/Vol] 0.90 mg/dL 0.20-1.00 [facility] Work Phone: Comment on above: For patients on eltr ombopag therapy, use of Dimension [place] TBIL is not recommended. Chloride [Moles/Vol] 106 mmol/L 98-107 [facility] Work Phone: Eosinophils/100 WBC (Bld) 1.1 % 0-5 [facility] Work Phone: Glucose [Mass/Vol] 112 mg/dL 74-106 [facility] Work Phone: Comment on above: Fasting Glucose resu lt from 100 to 125 mg/dL suggests IMPAIRED HOMEOSTASIS per A.D.A. criteria. Neutrophils (Bld) [#/Vol] 3.8 10*3/uL 2.0-7.7 [facility] Work Phone: Neutrophils/100 WBC (Bld) 59.2 % 47-70 [facility] Work Phone: Potassium [Moles/Vol] 4.4 mmol/L 3.5-5.1 [facility] Work Phone: Protein [Mass/Vol] 7.3 g/dL 6.4-8.2 [facility] Work Phone: Sodium [Moles/Vol] 137 mmol/L 136-145 [facility] Work Phone: WBC (Bld) [#/Vol] 6.4 10*3/uL 4.4-11.0 [facility] Work Phone: Blood erythrocytes count (nu mber/volume)on 06-30-2021 RBC (Bld) [#/Vol] 4.95 10*6/uL 4.2-5.4 [facility] Work Phone: Blood hemoglobin measurement (mass/volume)on 06-30-2021 Hemoglobin (Bld) [Mass/Vol] 15.7 g/dL 12.0-15.0 [facility] Work Phone: Blood lymphocytes/100 leukoc yteson 06-30-2021 Lymphocytes/100 WBC (Bld) 27.3 % 19-41 [facility] Work Phone: Blood monocytes/100 leukocyt eson 06-30-2021 Monocytes/100 WBC (Bld) 10.7 % 0-10 [facility] Work Phone: Blood platelet mean volumeon 06-30-2021 Platelet mean volume (Bld) [Entitic vol] 12.7 fL 6.2-12.0 [facility] Work Phone: Determination of erythrocyte mean corpuscular volume (MCV)on 06-30-2021 MCV (RBC) [Entitic vol] 96.6 fL 81-99 [facility] Work Phone: Hematocrit Auto (Bld) [Volum e fraction]on 06-30-2021 Hematocrit (Bld) [Volume fraction] 47.8 % 37-47 [facility] Work Phone: Laboratory - Chemistry and C hemistry - challengeon 06-30-2021 ALP [Catalytic activity/Vol] 71 U/L 45-117 [facility] Work Phone: ALT [Catalytic activity/Vol] 26 U/L 13-56 [facility] Work Phone: CO2 [Moles/Vol] 25.0 mmol/L 21.0-32.0 [facility] Work Phone: Globulin (S) [Mass/Vol] 3.7 g/dL 2.2-4.2 [facility] Work Phone: Urea nitrogen/Creatinine [Mass ratio] 14.7 mg/mg 10-20 [facility] Work Phone: Laboratory - Hematology and Cell countson 06-30-2021 Erythrocyte distribution width (RBC) [Entitic vol] 46.4 fL 35.1-43.9 [facility] Work Phone: Erythrocyte distribution width (RBC) [Ratio] 13.1 % 11.6-14.6 [facility] Work Phone: Immature granulocytes/100 WBC (Bld) 0.300 % 0.0-0.9 [facility] Work Phone: Comment on above: IG% - Immature Granu locytes (promyelocytes, myelocytes and metamyelocytes) > 1% indicates that a LEFT SHIFT is Present. MCH (RBC) [Entitic mass] 31.7 pg 27.0-32.0 [facility] Work Phone: Nucleated RBC/100 WBC (Bld) [Ratio] 0 % 0-5 [facility] Work Phone: MCHC Auto (RBC) [Mass/Vol]on 06-30-2021 MCHC (RBC) [Mass/Vol] 32.8 g/dL 32-36 [facility] Work Phone: No Panel Informationon 06-30 Estimated GFR (MDRD) Amer 51 mL/min >60 [facility] Work Phone: Comment on above: GFR Calc Estimated GFR (MDRD) Non-Af Amer 42 mL/min >60 [facility] Work Phone: Comment on above: Non- GFR Calc Thyroid Stimulating Hormone (TSH) 2.54 uIU/mL 0.358-3.74 [facility] Work Phone: Vitamin D 25-Hydroxy 24.2 ng/mL [facility] Work Phone: Comment on above: Vitamin D 25(OH) Sta tus Range Deficiency <20 ng/mL (50nmol/L) Insufficiency 20 - 30 ng/mL (50 - 75 nmol/L) Sufficiency 30 - 100 ng/mL (75 - 250 nmol/L) Toxicity >100 ng/mL (>250 nmol/L) Platelets bldon 06-30-2021 Platelets (Bld) [#/Vol] 242 10*3/uL 150-450 [facility] Work Phone: Serum or plasma albumin leah urement (mass/volume)on 06-30-2021 Albumin [Mass/Vol] 3.6 g/dL 3.2-5.0 [facility] Work Phone: Serum or plasma albumin/glob ulin mass ratioon 06-30-2021 Albumin/Globulin [Mass ratio] 1.0 {ratio} 0.9-2.4 [facility] Work Phone: Serum or plasma calcium leah urement (mass/volume)on 06-30-2021 Calcium [Mass/Vol] 9.2 mg/dL 8.5-10.1 [facility] Work Phone: Serum or plasma creatinine m easurement (mass/volume)on 06-30-2021 Creatinine [Mass/Vol] 1.29 mg/dL 0.55-1.02 [facility] Work Phone: Comment on above: The validity of the calculated GFR & GFRAA in patients over 70 years has not been determined. Clinical correlation is essential. Serum or plasma urea nitroge n measurement (mass/volume)on 06-30-2021 Urea nitrogen [Mass/Vol] 19 mg/dL 7-18 [facility] Work Phone: Serum or plasma uric acid me asurement (mass/volume)on 06-30-2021 Urate [Mass/Vol] 4.3 mg/dL 2.6-6.0 [facility] Work Phone: Comment on above: The drugs N-Acetylcy steine and Metamizole may falsely depress this assay. Thin prep Papanicolaou smear with manual screeningon 06-30-2021 Thin prep Papanicolaou smear with manual screening 23 U/L 15-37 [facility] Work Phone: Thin prep Papanicolaou smear with manual screening 6 5-15 [facility] Work Phone: Office Visiton 01-04-2017 Dietary management education, guidance, and counseling (procedure) yes Invalid Interpretation Code [facility] Work Phone: Documentation of current medications (procedure) Done Invalid Interpretation Code [facility] Work Phone: Tobacco use CPHS Never smoker Invalid Interpretation Code [facility] Work Phone: Office Visit: [facility] 12-30-19 Documentation of current medications (procedure) Done Invalid Interpretation Code [facility] Work Phone: Fall risk assessment No Invalid Interpretation Code [facility] Work Phone: Protein mass conc Done Invalid Interpretation Code [facility] Work Phone: Office Visiton 09-28-2016 Dietary management education, guidance, and counseling (procedure) yes Invalid Interpretation Code [facility] Work Phone: Documentation of current medications (procedure) Done Invalid Interpretation Code [facility] Work Phone: Tobacco smoking status NHIS Never smoker Invalid Interpretation Code [facility] Work Phone: Tobacco use CPHS Never smoker Invalid Interpretation Code [facility] Work Phone: Office Visiton 06-29-2016 Dietary management education, guidance, and counseling (procedure) yes Invalid Interpretation Code [facility] Work Phone: Documentation of current medications (procedure) Done Invalid Interpretation Code [facility] Work Phone: Tobacco use [facility]PHS Never smoker Invalid Interpretation Code [facility] Work Phone: Clinical Lists Update: Prelo rn pediatric 11-18-2015 Left ventricular Ejection fraction 65 % Invalid Interpretation Code [facility] Work Phone: Lab Report: Lipid Profileon 11-12-2015 Cholesterol 194 mg/dL Invalid Interpretation Code 200 [facility] Work Phone: HDL Cholesterol 45 mg/dL Invalid Interpretation Code [facility] Work Phone: LDL Cholesterol 123 mg/dL Invalid Interpretation Code 0-130 [facility] Work Phone: Triglyceride 132 mg/dL Invalid Interpretation Code [facility] Work Phone: very low density lipoproteins 26 mg/dL Invalid Interpretation Code 5-40 [facility] Work Phone: Lab Report: Liver Profileon 11-12-2015 Alanine aminotransferase (ALT) 19 U/L Invalid Interpretation Code 12-78 [facility] [facility] Work Phone: Albumin 3.6 g/dL Invalid Interpretation Code 3.4-5.0 [facility] Work Phone: Alkaline phosphatase (ALP) 72 U/L Invalid Interpretation Code 50-136 [facility] Work Phone: ALP enzyme act/vol (Bld) 72 U/L Invalid Interpretation Code 50-136 [facility] Work Phone: Aspartate aminotransferase (AST) 17 U/L Invalid Interpretation Code 15-37 [facility] Work Phone: Bilirubin (direct) 0.17 mg/dL Invalid Interpretation Code 0.00-0.30 [facility] Work Phone: Bilirubin (total) 0.90 mg/dL Invalid Interpretation Code 0.20-1.00 [facility] Work Phone: Globulin 3.7 g/dL High 2.3-3.5 [facility] Work Phone: Protein 7.3 g/dL Invalid Interpretation Code 6.4-8.2 [facility] Work Phone: Vital Signs Date Time Vital Sign Value Performing Clinician Angle euceda 01-04-2024 11:57-0400 Body height 157.5 cm Mónica Maldonado CNP Work Phone: [facility]To 01-04-2024 11:57-0400 Body mass index (BMI) [Ratio] 43.09 kg/m2 Mónica Maldonado CNP Work Phone: [facility]To 01-04-2024 11:57-0400 Body weight 106.87 kg Mónica Maldonado CNP Work Phone: [facility]To 01-04-2024 11:57-0400 Diastolic blood pressure 64 mm[Hg] Mónica Maldonado CNP Work Phone: [facility]To 01-04-2024 11:57-0400 Heart rate 68 /min Mónica David HEAD OF GEOGRAPHY - LEARNING SUPPORT ASSISTANT Work Phone: [facility].To 01-04-2024 11:57-0400 SaO2% (BldA) [Mass fraction] 97 % Mónica David HEAD OF GEOGRAPHY - LEARNING SUPPORT ASSISTANT Work Phone: [facility] 01-04-2024 11:57-0400 Systolic blood pressure 112 mm[Hg] Mónica David HEAD OF GEOGRAPHY - LEARNING SUPPORT ASSISTANT Work Phone: [facility]To 12-26-2023 11:34-0400 Body temperature 96.49 [degF] Harjeet Huffman MD Work Phone: [facility]To 12-26-2023 11:34-0400 Diastolic blood pressure 82 mm[Hg] Harjeet Huffman MD Work Phone: [facility]To 12-26-2023 11:34-0400 Heart rate 87 /min Harjeet Huffman MD Work Phone: [facility]To 12-26-2023 11:34-0400 Respiratory rate 22 /min Harjeet Huffman MD Work Phone: [facility]To 12-26-2023 11:34-0400 SaO2% (BldA) [Mass fraction] 98 % Harjeet Huffman MD Work Phone: [facility]To 12-26-2023 11:34-0400 Systolic blood pressure 148 mm[Hg] Harjeet Huffman MD Work Phone: [facility]To 12-26-2023 09:27-0400 Body height 157.5 cm Harjeet Huffman MD Work Phone: [facility]To 12-26-2023 09:27-0400 Body mass index (BMI) [Ratio] 45.91 kg/m2 Harjeet Huffman MD Work Phone: [facility]To 12-26-2023 09:27-0400 Body weight 113.85 kg Harjeet Huffman MD Work Phone: [facility]To 12-12-2023 13:57-0400 Diastolic blood pressure 76 mm[Hg] [facility] 12-12-2023 13:57-0400 Heart rate 73 /min [facility] 12-12-2023 13:57-0400 Respiratory rate 18 /min [facility] 12-12-2023 13:57-0400 Systolic blood pressure 128 mm[Hg] [facility] 12-12-2023 12:30-0400 Body temperature 96.8 [degF] Arlene Velez HEAD OF GEOGRAPHY - LEARNING SUPPORT ASSISTANT Work Phone: [facility] 12-12-2023 12:30-0400 Diastolic blood pressure 64 mm[Hg] Arlene Velez HEAD OF GEOGRAPHY - LEARNING SUPPORT ASSISTANT Work Phone: [facility] 12-12-2023 12:30-0400 Heart rate 50 /min Arlene Velez HEAD OF GEOGRAPHY - LEARNING SUPPORT ASSISTANT Work Phone: [facility] 12-12-2023 12:30-0400 Respiratory rate 18 /min Arlene Velez HEAD OF GEOGRAPHY - LEARNING SUPPORT ASSISTANT Work Phone: [facility] 12-12-2023 12:30-0400 Systolic blood pressure 113 mm[Hg] Arlene Velez HEAD OF GEOGRAPHY - LEARNING SUPPORT ASSISTANT Work Phone: [facility] 12-12-2023 07:34-0400 Body temperature 97 [degF] [facility] 11-21-2023 14:17-0400 Body height 157.5 cm Juan Reed DO Work Phone: [facility] 11-21-2023 14:17-0400 Body mass index (BMI) [Ratio] 43.15 kg/m2 Juan Reed DO Work Phone: [facility] 11-21-2023 14:17-0400 Body weight 107 kg Juan Reed DO Work Phone: [facility] 11-21-2023 14:17-0400 Diastolic blood pressure 82 mm[Hg] Juan Reed DO Work Phone: [facility] 11-21-2023 14:17-0400 Heart rate 58 /min Juan Reed DO Work Phone: [facility] 11-21-2023 14:17-0400 SaO2% (BldA) [Mass fraction] 98 % Juan Reed DO Work Phone: [facility] 11-21-2023 14:17-0400 Systolic blood pressure 136 mm[Hg] Juan Reed DO Work Phone: [facility] 11-21-2023 14:01-0400 Body height 157.5 cm Harjeet Huffman MD Work Phone: [facility] 11-21-2023 14:01-0400 Body mass index (BMI) [Ratio] 43.31 kg/m2 Harjeet Huffman MD Work Phone: [facility] 11-21-2023 14:01-0400 Body weight 107.41 kg Harjeet Huffman MD Work Phone: [facility] 11-21-2023 14:01-0400 Diastolic blood pressure 82 mm[Hg] Harjeet Huffman MD Work Phone: [facility] 11-21-2023 14:01-0400 Heart rate 58 /min Harjeet Huffman MD Work Phone: [facility] 11-21-2023 14:01-0400 SaO2% (BldA) [Mass fraction] 98 % Harjeet Huffman MD Work Phone: [facility] 11-21-2023 14:01-0400 Systolic blood pressure 136 mm[Hg] Harjeet Huffman MD Work Phone: [facility] 12-29-2016 10:24-0400 BMI (Body Mass Index) 38.01 kg/m2 [facility] Work Phone: 12-29-2016 10:24-0400 BP Diastolic 80 mm[Hg] [facility] Work Phone: 12-29-2016 10:24-0400 BP Systolic 128 mm[Hg] [facility] Work Phone: 12-29-2016 10:24-0400 Height 161.29 cm [facility] Work Phone: 12-29-2016 10:24-0400 Pulse (Heart Rate) 72 /min [facility] Work Phone: 12-29-2016 10:24-0400 Respiratory Rate 20 /min [facility] Work Phone: 12-29-2016 10:24-0400 Weight 98.88 kg [facility] Work Phone: 05-26-2016 14:01-0500 BMI (Body Mass Index) 37.83 kg/m2 [facility] Work Phone: 05-26-2016 14:01-0500 BP Diastolic 76 mm[Hg] [facility] Work Phone: 05-26-2016 14:01-0500 BP Systolic 144 mm[Hg] [facility] Work Phone: 05-26-2016 14:01-[address] [facility] Work Phone: 05-26-2016 14:01-0500 Pulse (Heart Rate) 76 /min [facility] Work Phone: 05-26-2016 14:01-0500 Respiratory Rate 18 /min [facility] Work Phone: 05-26-2016 14:01-[address] [facility] Work Phone: 11-10-2015 14:49-0400 BSA (Body Surface Area) 2.03 m2 [facility] Work Phone: Encounters Encounter Date Encounter Type Care Provider Facility Start: 08-14-2024 ambulatory Joe PORTILLO Fa cility:[facility] Start: 08-14-2024 [facility] Start: 07-30-2024 End: 07-30-[address] Scott Hull MD Work Phone: [facility] Work Phone: Start: 07-30-2024 End: 07-30-2024 [facility] Start: 07-30-2024 End: 07-30-2024 ambulatory Joe PORTILLO Facility:[facility] Start: 07-15-2024 [facility] Start: 07-15-2024 End: 07-15-2024 ambulatory Joe PORTILLO Facility:[facility] Start: 07-02-2024 End: 07-02-[address] Scott Hull MD Work Phone: [facility] Work Phone: Start: 07-02-2024 End: 07-02-2024 [facility] Start: 07-02-2024 End: 07-02-2024 ambulatory Scott Hull Facility:[facility] Start: 06-18-2024 End: 06-18-2024 [facility] Start: 06-18-2024 [facility] Start: 06-18-2024 End: 06-18-2024 ambulatory Scott Chi Kurtis Facility:[facility] Start: 06-04-2024 End: 06-04-[address] Scott Hull MD Work Phone: [facility] Work Phone: Start: 06-04-2024 End: 06-04-2024 [facility] Start: 06-04-2024 End: 06-04-2024 ambulatory Scott Chi Kurtis Facility:[facility] Start: 05-28-2024 End: 05-28-2024 ambulatory Scott Chi Kurtis Facility:[facility] Start: 05-28-2024 End: 05-28-[address] Joe Sanchez MD -[facility] [place] Work Phone: Start: 05-16-2024 End: 05-16-2024 ambulatory Scott Chi Kurtis Facility:[facility] Start: 05-16-2024 End: 05-16-2024 Patient encounter procedure Eriberto VILLALOBOS -[facility] [place] Work Phone: Start: 05-07-2024 ambulatory Scott Chi Kurtis Facility:[facility] Start: 05-07-2024 [facility] Start: 04-22-2024 ambulatory Scott Chi Kurtis Facility:[facility] Start: 04-22-2024 [facility] Start: 04-18-2024 ambulatory Mónica VILLALOBOS Facility:[facility] Start: 04-09-2024 End: 04-09-2024 [facility] Start: 04-09-2024 End: 04-09-2024 ambulatory Joe PORTILLO Facility:[facility] Start: 04-02-2024 End: 04-02-2024 ambulatory Scott Chi Kurtis Facility:[facility] Start: 04-02-2024 End: 04-02-[address] Joe Sanchez MD -[facility] [place] Work Phone: Start: 03-15-2024 End: 03-15-2024 ambulatory Scott Chi Kurtis Facility:[facility] Start: 03-15-2024 End: 03-15-2024 Patient encounter procedure Sara MONTEMAYOR -[facility] Work Phone: Start: 03-15-2024 ambulatory Joe PORTILLO Fa cility:[facility] Start: 03-15-2024 Registered Referred Joe Sanchez MD [facility] Start: 03-08-2024 ambulatory Joe Sanchez OLS Fa cility:[facility] Start: 03-08-2024 Registered Referred Joe Sanchez MD [facility] Start: 03-01-2024 End: 03-01-2024 [facility] Start: 03-01-2024 End: 03-01-2024 ambulatory Joe Sanchez OLS Facility:[facility] Start: 02-27-2024 End: 02-27-2024 ambulatory Scott Chi Kurtis Facility:[facility] Start: 02-27-2024 End: 02-27-2024 Patient encounter procedure Sara MONTEMAYOR -[facility] [place] Work Phone: Start: 02-23-2024 End: 02-23-2024 ambulatory Joe Sanchez OLS Facility:[facility] Start: 02-16-2024 ambulatory Scott Chi Kurtis Facility:[facility] Start: 02-09-2024 ambulatory Csott Chi Kurtis Facility:[facility] Start: 02-07-2024 End: 02-07-2024 ambulatory Scott Chi Kurtis Facility:[facility] Start: 02-02-2024 ambulatory Scott Chi Kurtis Facility:[facility] Start: 01-29-2024 ambulatory Scott Chi Kurtis [facility] Start: 01-26-2024 ambulatory Scott Chi Kurtis Facility:[facility] Start: 01-22-2024 ambulatory Scott Chi Kurtis Facility:[facility] Start: 01-19-2024 ambulatory Scott Chi Kurtis Facility:[facility] Start: 01-18-2024 End: 01-18-2024 ambulatory Scott Chi Kurtis Facility:[facility] Start: 01-16-2024 End: 01-16-2024 ambulatory Efewongbe Oleghe Facility:[facility] Start: 01-15-2024 End: 01-15-2024 ambulatory Scott Chi Kurtis Facility:[facility] Start: 01-12-2024 ambulatory Scott Chi Kurtis Facility:[facility] Start: 01-11-2024 End: 01-11-2024 ambulatory Scott Chi Kurtis Facility:[facility] Start: 01-08-2024 ambulatory Scott Chi Kurtis [facility] Start: 01-08-2024 ambulatory Scott Chi Kurtis [facility] Start: 01-06-2024 ambulatory Scott Chi Kurtis [facility] Start: 01-06-2024 End: 01-10-2024 Evaluation and management of inpatient Maribel Vizcarra Facility:[facility] Start: 01-05-2024 ambulatory Maribel Vizcarra Facility :[facility] Start: 01-04-2024 End: 02-22-2024 Telephone encounter Mónica David HEAD OF GEOGRAPHY - LEARNING SUPPORT ASSISTANT Work Phone: [facility] [place] Comment on above: Orders Start: 01-04-2024 End: 01-04-2024 Office outpatient visit 25 minutes Mónica David HEAD OF GEOGRAPHY - LEARNING SUPPORT ASSISTANT Work Phone: [facility] [employer] [place] Comment on above: Chronic atrial fibri llation (HCC) (Primary Dx); Severe aortic stenosis; Stage 3a chronic kidney disease (HCC); Left heart failure (HCC) Start: 01-04-2024 End: 01-04-2024 [facility] Start: 12-25-2023 End: 12-26-2023 Evaluation and management of inpatient Harjeet Huffman MD Work Phone: [facility] Cardiac Thoracic Vascular Intensive Care Unit CTV ICU T1 Comment on above: Severe aortic stenos is (Primary Dx); Nonrheumatic aortic valve stenosis Start: 12-22-2023 End: 12-22-2023 ambulatory Arlene Velez HEAD OF GEOGRAPHY - LEARNING SUPPORT ASSISTANT Work Phone: [facility] [employer] [place] Comment on above: Severe aortic stenos is (Primary Dx) Start: 12-19-2023 End: 12-19-2023 ambulatory Scott Chi Kurtis Facility:[facility] Start: 12-12-2023 End: 12-12-2023 Office outpatient visit 25 minutes Mónica David HEAD OF GEOGRAPHY - LEARNING SUPPORT ASSISTANT Work Phone: [facility] [employer] [place] Comment on above: Chronic atrial fibri llation (HCC) (Primary Dx); Nonrheumatic aortic valve stenosis; Adverse effect of contrast media, initial encounter Start: 12-12-2023 End: 12-12-2023 Subsequent hospital visit by physician Arlene Maldonado CNP Work Phone: [facility] Imaging Comment on above: Nonrheumatic aortic valve stenosis Start: 12-12-2023 End: 12-12-2023 ambulatory Harjeet Huffman MD Work Phone: [facility] Comment on above: Renal failure, unspe cified chronicity; Stenosis of prosthetic aortic valve, initial encounter Start: 12-04-2023 End: 12-04-2023 ambulatory Scott Chi Kurtis Facility:[facility] Start: 11-21-2023 End: 11-21-2023 Office outpatient new 45 minutes Thaddeus Mckeon MD Work Phone: [facility] Comment on above: Nonrheumatic aortic valve stenosis (Primary Dx); Chronic atrial fibrillation (HCC); Short-term memory loss; Drug-induced bradycardia; Polypharmacy Start: 11-21-2023 End: 11-21-2023 Office outpatient new 60 minutes Juan Reed DO Work Phone: [facility] Comment on above: Stenosis of prosthet ic aortic valve, initial encounter (Primary Dx) LV dysfunction (Prim logan Dx); Stenosis of prosthetic aortic valve, initial encounter Start: 11-21-2023 End: 11-21-2023 ambulatory THADDEUS MCKEON [facility] Start: 11-08-2023 End: 11-09-2023 ambulatory Scott Chi Kurtis Facility:[facility] Start: 11-08-2023 End: 11-08-2023 ambulatory Scott Chi Kurtis Facility:[facility] Start: 09-22-2023 ambulatory Scott Chi Kurtis [facility] Start: 09-22-2023 End: 09-22-2023 ambulatory Scott Chi Kurtis Facility:[facility] Start: 09-14-2023 End: 09-14-2023 ambulatory Scott Chi Kurtis Facility:[facility] Start: 07-13-2023 End: 07-13-2023 ambulatory [facility] Work Phone: Start: 07-13-2023 End: 07-13-2023 Patient encounter procedure [facility] Work Phone: Start: 01-05-2023 End: 01-05-2023 ambulatory [facility] Work Phone: Start: 01-05-2023 End: 01-05-2023 Patient encounter procedure [facility], Phy Office 3rd Flr Start: 06-30-2022 End: 06-30-2022 ambulatory [facility] Work Phone: Start: 06-30-2022 End: 06-30-2022 Patient encounter procedure [facility], Phy Office 3rd Flr Start: 12-30-2021 End: 12-30-2021 ambulatory [facility] Work Phone: Start: 12-30-2021 End: 12-30-2021 [facility] Start: 06-30-2021 End: 06-30-2021 [facility] Start: 09-11-2017 Patient encounter status [facility] Procedures Date Procedure Procedure Detail Performing Clinician Start: 08-14-2024 Vitamin D, 25-hydrox y measurement Dr. Scott Hull MD Work Phone: Comment on above: Vitamin D StatusDefi ciency: <20 ng/mL (50nmol/L)Insufficiency: 20-30 ng/mL (50-75 nmol/L)Sufficiency: 30-100 ng/mL (75-250 nmol/L)Toxicity: >100 ng/mL (>250 nmol/L) Start: 06-18-2024 Vitamin D, 25-hydrox y measurement Dr. Scott Hull MD Work Phone: Comment on above: Vitamin D StatusDefi ciency: <20 ng/mL (50nmol/L)Insufficiency: 20-30 ng/mL (50-75 nmol/L)Sufficiency: 30-100 ng/mL (75-250 nmol/L)Toxicity: >100 ng/mL (>250 nmol/L) Start: 05-07-2024 Measurement of renal function Dr. Scott Hull MD Work Phone: Comment on above: GFR Calc Start: 04-22-2024 Vitamin D, 25-hydrox y measurement Dr. Scott Hull MD Work Phone: Comment on above: Vitamin D 25(OH) Sta tus Range Deficiency <20 ng/mL (50nmol/L) Insufficiency 20 - 30 ng/mL (50 - 75 nmol/L) Sufficiency 30 - 100 ng/mL (75 - 250 nmol/L) Toxicity >100 ng/mL (>250 nmol/L) Start: 04-09-2024 Measurement of renal function Dr. Scott Hull MD Work Phone: Comment on above: GFR Calc Start: 03-15-[address] Scott mitchell MD Work Phone: Start: 01-04-2024 Ecg routine ecg w/le ast 12 lds trcg only w/o i&r Harjeet Huffman MD Work Phone: Start: 12-26-2023 TTE w or wo fol wcon,Doppler Mónica David HEAD OF GEOGRAPHY - LEARNING SUPPORT ASSISTANT Work Phone: Start: 12-26-2023 Ecg routine ecg w/le ast 12 lds trcg only w/o i&r Mónica David HEAD OF GEOGRAPHY - LEARNING SUPPORT ASSISTANT Work Phone: Start: 12-26-2023 Basic metabolic pane l calcium total Mónica David HEAD OF GEOGRAPHY - LEARNING SUPPORT ASSISTANT Work Phone: Start: 12-25-2023 Echo transthorc r-t 2d w/wo m-mode rec f-up/lmtd Harjeet Huffman MD Work Phone: Start: 12-25-2023 Basic metabolic pane l calcium total Mónica David HEAD OF GEOGRAPHY - LEARNING SUPPORT ASSISTANT Work Phone: Start: 12-25-2023 Ecg routine ecg w/le ast 12 lds trcg only w/o i&r Mónica David HEAD OF GEOGRAPHY - LEARNING SUPPORT ASSISTANT Work Phone: Start: 12-25-2023 OXYGEN THERAPY Mónica David APRN - LEARNING SUPPORT ASSISTANT Work Phone: Start: 12-25-2023 Cardiac catheterizat ion study Harjeet Huffman MD Work Phone: Start: 12-25-2023 Antibody screen HARJEET DOWNING Comment on above: Performed By: #### L [id number] #### Relocation Coordinator: AIDE RUEDA ([phone]) [facility] BLOOD [facility] [address] [place] [address] Start: 12-25-2023 End: 12-25-2023 Blood typing serologic rh (d) Tien Cornell MD Work Phone: Start: 12-25-2023 End: 12-25-2023 TRANSCATHETER AORTIC VALVE REPLACEMENT (TAVR) - OR Tien Cornell MD Work Phone: Start: 12-12-2023 Antibody screen HARJEET DOWNING Comment on above: Performed By: #### L [id number] ####Relocation Coordinator: AIDE RUEDA ([phone])[facility] BLOOD [facility])[address] [place] [address] Start: 12-12-2023 Blood typing serologic abo Harjeet [...] PA-C Work Phone: Start: 12-29-2016 End: 12-29-2016 ERIC Gutierrez PA-C Work Phone: Start: 12-29-2016 End: 01-09-2017 Shannan Gutierrez PA-C Work Phone: Start: 12-29-2016 End: 12-29-2016 Follow Up Appt 6 months Mónica shahid PA-C Work Phone: Start: 09-28-2016 End: 10-12-2016 Arthrocentesis aspir&/inj major jt/bursa w/o us Sukh S Elver Work Phone: Start: 09-28-2016 End: 09-28-2016 Dietary [...] Start: 04-07-2016 End: 04-14-2016 Drain/inject, joint/bursa Sukh Raya Work Phone: Start: 11-10-2015 End: 11-12-2015 *Hepatic Function Panel Gerald Barragan MD Work Phone: Start: 11-10-2015 End: 05-20-2016 ERENN Gerald Barragan MD Work Phone: Start: 11-10-2015 [...] valve Aortic valve replacement Mónica Gutierrez PA-C H/O: hysterectomy History of hysterectomy History of appendectomy History of appendectomy Plan of Treatment Date Care Activity Detail Author Start: 12-21-2026 DTaP/Tdap/Td Vaccines (2 - Td or Tdap) DTaP/Tdap/Td Vaccines (2 - Td or Tdap) [facility] Start: 12-25-2024 Creatinine measurement Creatinine Level [facility] Start: 12-25-2024 Echocardiography Echocardiogram [facility] Start: 12-25-2024 Potassium measurement Potassium Level [facility] Start: 03-20-2024 Medicare Advantage Annual Wellness Visit Medicare [facility] Annual Wellness Visit [facility] Start: 01-04-2024 End: 01-04-2024 Patient encounter procedure 01/04/2024 12:00 PM EDT Office Visit [facility] [address] [place] [id number] Mónica David, HEAD OF GEOGRAPHY - LEARNING SUPPORT ASSISTANT [address] [place] [address] [facility] Start: 12-25-2023 End: 12-25-2023 Admission to same day surgery center 12/25/2023 9:15 AM EDT - 12/25/2023 11:00 AM EDT Surgery [facility] [address] [place] [id number] Harjeet Huffman MD [address] [place] [address] TRANSCATHETER AORTIC VALVE REPLACEMENT, TRANSTHORACIC ECHOCARDIOGRAM [facility] Comment on above: TRANSCATHETER AORTIC VALVE REPLACEMENT, TRANSTHORACIC ECHOCARDIOGRAM Start: 12-25-2023 End: 12-25-2023 Anesthesia consultation 12/25/2023 9:15 AM EDT Anesthesia Event [facility] [address] [place] [address] Carolina Waldron, HEAD OF GEOGRAPHY - LEARNING SUPPORT ASSISTANT [address] [facility] [address] [place] [address] [facility] Start: 12-25-2023 Subsequent hospital visit by physician 12/25/2023 9:15 AM EDT Hospital Encounter [facility] [address] [place] [phone] Harjeet Huffman MD [address] [place] [address] Nonrheumatic aortic valve stenosis [facility] Comment on above: Nonrheumatic aortic valve stenosis Start: 12-25-2023 End: 12-25-2023 TRANSCATHETER AORTIC VALVE REPLACEMENT (TAVR) - OR TRANSCATHETER AORTIC VALVE REPLACEMENT (TAVR) - OR Nonrheumatic aortic valve stenosis 12/25/2023 9:15 AM EDT [facility] Start: 11-19-2023 COVID-19 Vaccine ( season) COVID-19 Vaccine () [facility] Start: 11-19-2023 COVID-19 Vaccine () [facility]19 [facility] Start: 11-19-2023 Influenza vaccination Influenza Vaccine (#1) [facility]To Start: 03-20-2023 Medicare Advantage Annual Wellness Visit Medicare Advantage Annual Wellness Visit [facility]To Start: 11-09-2020 Lipid panel Lipid Panel [facility]To Start: 07-10-2017 End: 07-10-2017 Appointment Appointment [facility] Work Phone: Start: 01-05-2017 End: 01-09-2017 Nuclear stress test -Lexiscan Nuclear stress test -Lexiscan [facility] Work Phone: Start: 01-04-2017 End: 01-04-2017 Appointment Appointment [facility] Work Phone: Start: 01-03-2017 End: 01-05-2017 Nuclear stress test -exercise Nuclear stress test -exercise [facility] Work Phone: Start: 12-29-2016 End: 12-29-2016 DJN DJN [facility] Work Phone: Start: 12-29-2016 End: 12-29-2016 Echocardiography Echocardiogram (complete) [facility] Work Phone: Start: 12-29-2016 End: 12-29-2016 Follow Up Appt 6 months Follow Up Appt 6 months [facility] Work Phone: Start: 12-29-2016 End: 12-29-2016 Nuclear stress test -exercise Nuclear stress test -exercise [facility] Work Phone: Start: 12-29-2016 End: 12-29-2016 Appointment Appointment [facility] Work Phone: Start: 12-15-2016 End: 12-15-2016 Appointment Appointment [facility] Work Phone: Start: 11-11-2016 End: 11-18-2015 *Hepatic Function Panel *Hepatic Function Panel [facility] Work Phone: Start: 11-11-2016 End: 11-18-2015 Lipid panel [AGGREGATE] *Lipid Profile CC PCP [facility] Work Phone: Start: 11-11-2016 End: 11-18-2015 *Hepatic Function Panel *Hepatic Function Panel [facility] Work Phone: Start: 11-11-2016 End: 11-18-2015 Lipid panel [AGGREGATE] *Lipid Profile CC PCP [facility] Work Phone: Start: 09-28-2016 End: 09-28-2016 Appointment Appointment [facility] Work Phone: Start: 05-26-2016 End: 05-26-2016 ERIC REYES [facility] Work Phone: Start: 05-26-2016 End: 05-26-2016 Follow Up Appt 6 months Follow Up Appt 6 months [facility] Work Phone: Start: 05-26-2016 End: 05-26-2016 ERIC REYES [facility] Work Phone: Start: 05-26-2016 End: 05-26-2016 Follow Up Appt 6 months Follow Up Appt 6 months [facility] Work Phone: Start: 11-10-2015 End: 11-12-2015 *Hepatic Function Panel *Hepatic Function Panel [facility] Work Phone: Start: 11-10-2015 End: 05-20-2016 ERIC REYES [facility] Work Phone: Start: 11-10-2015 End: 11-10-2015 Echocardiography Echocardiogram (complete) [facility] Work Phone: Start: 11-10-2015 End: 11-10-2015 Follow Up Appt 6 months Follow Up Appt 6 months [facility] Work Phone: Start: 11-10-2015 End: 11-12-2015 Lipid panel [AGGREGATE] *Lipid Profile CC PCP [facility] Work Phone: Start: 11-10-2015 End: 11-12-2015 *Hepatic Function Panel *Hepatic Function Panel [facility] Work Phone: Start: 11-10-2015 End: 05-20-2016 DJN DJN [facility] Work Phone: Start: 11-10-2015 End: 11-10-2015 Echocardiography Echocardiogram (complete) [facility] Work Phone: Start: 11-10-2015 End: 11-10-2015 Follow Up Appt 6 months Follow Up Appt 6 months [facility] Work Phone: Start: 11-10-2015 End: 11-12-2015 Lipid panel [AGGREGATE] *Lipid Profile CC PCP [facility] Work Phone: Start: 1952 Depression Screening Depression Screening [facility] Start: 1940 Lipid panel Lipid Panel [facility] Start: 1940 Screening for osteoporosis Bone Density Scan [facility] End: 12-12-2023 CT Chest WO and CT angiogram Coronary arteries W contrast IV [facility] [employer] Work Phone: Comment on above: Once for 1 Occurrences starting 12/12/19 until 12/12/2023 ECG 12 lead - CLINIC PERFORMED ECG 12 lead - CLINIC PERFORMED CV ECG Routine Severe aortic stenosis 01/04/2024 11:54 AM EDT [facility] [employer] Work Phone: Patient Education [facility] Work Phone: Immunizations Immunization Date Immunization Notes Care Provider Fa cililaurence 01-05-2023 influenza virus vaccine, unspecified formulation Thaddeus Mckeon MD Work Phone: [facility] 12-27-2017 influenza, injectabl e, quadrivalent, preservative free [facility] 12-27-2017 influenza, seasonal, injectable [facility] Payers Date Payer Category Payer Unknown 2024 Medicare [id number] 2024 Medicaid [id number] 2023 Self-pay [id number] 2023 Medicare [employer] MED[employer] RE [employer] SECURE [id number] 2023-Present [address] [place] [address] Medicare HMO [id number] 2023 Medicare HMO [employer] SECURE [id number] 2016 Medicare [id number] Unknown [id number] 2.0.1.047968.3.579.2.462 Unknown [id number] 2.0.1.079330.3.579.2.462 Unknown [id number] 2.0.1.099600.3.579.2.462 Unknown [id number] 2.16.840.1.495893.3.579.2.462 Unknown [id number] 2.16.840.1.343151.3.579.2.462 Unknown [id number] 2.16.840.1.510056.3.579.2.462 Unknown [id number] 2.16.840.1.719833.3.579.2.462 Unknown [id number] 2.16.840.1.035978.3.579.2.462 Unknown [id number] 2.16.840.1.066326.3.579.2.462 Unknown [id number] 2.16.840.1.864776.3.579.2.462 Unknown [id number] 2.16.840.1.208528.3.579.2.462 Unknown [id number] 2.16.840.1.571920.3.579.2.462 Unknown [id number] 2.16.840.1.021380.3.579.2.462 Unknown [id number] 2.16.840.1.933792.3.579.2.462 Unknown [id number] 2.16.840.1.450836.3.579.2.462 Unknown [id number] 2.16.840.1.907255.3.579.2.462 Unknown [id number] 2.16.840.1.101245.3.579.2.462 Unknown [id number] 2.16.840.1.376578.3.579.2.462 Unknown [id number] 2.16.840.1.782372.3.579.2.462 Unknown [id number] 2.16.840.1.108824.3.579.2.462 Unknown [id number] 2.16.840.1.202627.3.579.2.462 Unknown [id number] 2.16.840.1.753144.3.579.2.462 Unknown [id number] 2.16.840.1.981218.3.579.2.462 Unknown [id number] 2.16840.1.287325.3.579.2.462 Unknown [id number] 2.16840.1.990880.3.579.2.462 Unknown [id number] 2.16840.1.651954.3.579.2.462 Unknown [id number] 2.16840.1.102626.3.579.2.462 Unknown [id number] 2.840.1.754068.3.579.2.462 Unknown [id number] 2.840.1.050857.3.579.2.462 Unknown [id number] 2.840.1.640520.3.579.2.462 Unknown [id number] 2.840.1.972395.3.579.2.462 Unknown [id number] 2.840.1.578218.3.579.2.462 Unknown [id number] 2.840.1.579589.3.579.2.462 Unknown [id number] 2.840.1.442411.3.579.2.462 Unknown [id number] 2.840.1.460508.3.579.2.462 Unknown [id number] 2.840.1.826065.3.579.2.462 Unknown [id number] 2.840.1.768077.3.579.2.462 Unknown [id number] 2.840.1.403463.3.579.2.462 Unknown [id number] 2.16840.1.520285.3.579.2.462 Unknown [id number] 2.16840.1.843709.3.579.2.462 Unknown [id number] 2.840.1.349304.3.579.2.462 Unknown [id number] 2.16.840.1.856765.3.579.2.462 Unknown [id number] 2.16.840.1.559848.3.579.2.462 Social History Date Type Detail Facility [facility] Start: 12-28-2017 Non-smoker [facility] Start: 1940 Sex Assigned At Female W [facility] Start: 2023 End: 01-10-2024 Tobacco smoking status VTIS Never smoked tobacco [facility] Start: 2023 Tobacco use and exposure Smokeless tobacco non-user [facility] Start: 11-21-2023 End: 01-04-2024 Alcoholic beverage intake Lifetime non-drinker (finding) [facility] Start: 11-21-2023 End: 01-04-2024 History of Social function [facility] Start: 11-21-2023 End: 01-04-2024 Tobacco use panel [facility] Start: 1940 Sex assigned at Not on file [facility] Start: 10-18-2021 End: 06-25-2024 Sex Female (finding) [facility] Medical Equipment Procedure Code Equipment Code Equipment Original Text Equipment Identifier Dates Total replacement of knee joint DOUGH,CEMENT 6191-1-010 FDA Start: 12-26-2017 Total replacement of knee joint TRAITHLON POST STAB FEM COMP FDA Start: 12-26-2017 Total replacement of knee joint TRIATHLON UNIV TIBIAL B-PLATE FDA Start: 12-26-2017 Total replacement of knee joint TRIATHLON X3 ASYMMETRC PATELLA FDA Start: 12-26-2017 Total replacement of knee joint TRIATHLON X3 TIBIAL INSERT-PS FDA Start: 12-26-2017 Total replacement of knee joint DOUGH,CEMENT 6191-1-010 FDA Start: 12-26-2017 Total replacement of knee joint TRAITHLON POST STAB FEM COMP FDA Start: 12-26-2017 Total replacement of knee joint TRIATHLON UNIV TIBIAL B-PLATE FDA Start: 12-26-2017 Total replacement of knee joint TRIATHLON X3 ASYMMETRC PATELLA FDA Start: 12-26-2017 Total replacement of knee joint TRIATHLON X3 TIBIAL INSERT-PS FDA Start: 12-26-2017 Total replacement of knee joint DOUGH,CEMENT 6191-1-010 FDA Start: 12-26-2017 Total replacement of knee joint TRAITHLON POST STAB FEM COMP FDA Start: 12-26-2017 Total replacement of knee joint TRIATHLON UNIV TIBIAL B-PLATE FDA Start: 12-26-2017 Total replacement of knee joint TRIATHLON X3 ASYMMETRC PATELLA FDA Start: 12-26-2017 Total replacement of knee joint TRIATHLON X3 TIBIAL INSERT-PS FDA Start: 12-26-2017 Total replacement of knee joint DOUGH,CEMENT 6191-1-010 FDA Start: 12-26-2017 Total replacement of knee joint TRAITHLON POST STAB FEM COMP FDA Start: 12-26-2017 Total replacement of knee joint TRIATHLON UNIV TIBIAL B-PLATE FDA Start: 12-26-2017 Total replacement of knee joint TRIATHLON X3 ASYMMETRC PATELLA FDA Start: 12-26-2017 Total replacement of knee joint TRIATHLON X3 TIBIAL INSERT-PS FDA Start: 12-26-2017 Total replacement of knee joint DOUGH,CEMENT 6191-1-010 FDA Start: 12-26-2017 Total replacement of knee joint TRAITHLON POST STAB FEM COMP FDA Start: 12-26-2017 Total replacement of knee joint TRIATHLON UNIV TIBIAL B-PLATE FDA Start: 12-26-2017 Total replacement of knee joint TRIATHLON X3 ASYMMETRC PATELLA FDA Start: 12-26-2017 Total replacement of knee joint TRIATHLON X3 TIBIAL INSERT-PS FDA Start: 12-26-2017 Total replacement of knee joint DOUGH,CEMENT 6191-1-010 FDA Start: 12-26-2017 Total replacement of knee joint TRAITHLON POST STAB FEM COMP FDA Start: 12-26-2017 Total replacement of knee joint TRIATHLON UNIV TIBIAL B-PLATE FDA Start: 12-26-2017 Total replacement of knee joint TRIATHLON X3 ASYMMETRC PATELLA FDA Start: 12-26-2017 Total replacement of knee joint TRIATHLON X3 TIBIAL INSERT-PS FDA Start: 12-26-2017 Total replacement of knee joint DOUGH,CEMENT 6191-1-010 FDA Start: 12-26-2017 Total replacement of knee joint TRAITHLON POST STAB FEM COMP FDA Start: 12-26-2017 Total replacement of knee joint TRIATHLON UNIV TIBIAL B-PLATE FDA Start: 12-26-2017 Total replacement of knee joint TRIATHLON X3 ASYMMETRC PATELLA FDA Start: 12-26-2017 Total replacement of knee joint TRIATHLON X3 TIBIAL INSERT-PS FDA Start: 12-26-2017 Total replacement of knee joint DOUGH,CEMENT 6191-1-010 FDA Start: 12-26-2017 Total replacement of knee joint TRAITHLON POST STAB FEM COMP FDA Start: 12-26-2017 Total replacement of knee joint TRIATHLON UNIV TIBIAL B-PLATE FDA Start: 12-26-2017 Total replacement of knee joint TRIATHLON X3 ASYMMETRC PATELLA FDA Start: 12-26-2017 Total replacement of knee joint TRIATHLON X3 TIBIAL INSERT-PS FDA Start: 12-26-2017 DOUGH,CEMENT 6191-1-010 FDA Start: 09-19-2017 DOUGH,CEMENT 6191-1-010 FDA Start: 09-19-2017 TRIATHLON TIBIAL INSERT-PS FDA Start: 09-19-2017 TRIATHLON UNIV TIB BASEPLATE FDA Start: 09-19-2017 TRIATHLON X3 PATELLA FDA Start: 09-19-2017 TRIATLHON POST STABIL FEM COMP FDA Start: 09-19-2017 DOUGH,CEMENT 6191-1-010 FDA Start: 09-19-2017 DOUGH,CEMENT 6191-1-010 FDA Start: 09-19-2017 TRIATHLON TIBIAL INSERT-PS FDA Start: 09-19-2017 TRIATHLON UNIV TIB BASEPLATE FDA Start: 09-19-2017 TRIATHLON X3 PATELLA FDA Start: 09-19-2017 TRIATLHON POST STABIL FEM COMP FDA Start: 09-19-2017 DOUGH,CEMENT 6191-1-010 FDA Start: 09-19-2017 DOUGH,CEMENT 6191-1-010 FDA Start: 09-19-2017 TRIATHLON TIBIAL INSERT-PS FDA Start: 09-19-2017 TRIATHLON UNIV TIB BASEPLATE FDA Start: 09-19-2017 TRIATHLON X3 PATELLA FDA Start: 09-19-2017 TRIATLHON POST STABIL FEM COMP FDA Start: 09-19-2017 DOUGH,CEMENT 6191-1-010 FDA Start: 09-19-2017 DOUGH,CEMENT 6191-1-010 FDA Start: 09-19-2017 TRIATHLON TIBIAL INSERT-PS FDA Start: 09-19-2017 TRIATHLON UNIV TIB BASEPLATE FDA Start: 09-19-2017 TRIATHLON X3 PATELLA FDA Start: 09-19-2017 TRIATLHON POST STABIL FEM COMP FDA Start: 09-19-2017 DOUGH,CEMENT 6191-1-010 FDA Start: 09-19-2017 DOUGH,CEMENT 6191-1-010 FDA Start: 09-19-2017 TRIATHLON TIBIAL INSERT-PS FDA Start: 09-19-2017 TRIATHLON UNIV TIB BASEPLATE FDA Start: 09-19-2017 TRIATHLON X3 PATELLA FDA Start: 09-19-2017 TRIATLHON POST STABIL FEM COMP FDA Start: 09-19-2017 Valve Aor Soumya 3 Ultra 23mm - [id number] - [id number] Start: 12-25-2023 Comment on above: Description: [id number] Device Perclose Prostyle - [id number] Start: 12-25-2023 Device Perclose Prostyle - [id number] Start: 12-25-2023 DOUGH,CEMENT 6191-1-010 FDA Start: 09-19-2017 DOUGH,CEMENT 6191-1-010 FDA Start: 09-19-2017 TRIATHLON TIBIAL INSERT-PS FDA Start: 09-19-2017 TRIATHLON UNIV TIB BASEPLATE FDA Start: 09-19-2017 TRIATHLON X3 PATELLA FDA Start: 09-19-2017 TRIATLHON POST STABIL FEM COMP FDA Start: 09-19-2017 DOUGH,CEMENT 6191-1-010 FDA Start: 09-19-2017 DOUGH,CEMENT 6191-1-010 FDA Start: 09-19-2017 TRIATHLON TIBIAL INSERT-PS FDA Start: 09-19-2017 TRIATHLON UNIV TIB BASEPLATE FDA Start: 09-19-2017 TRIATHLON X3 PATELLA FDA Start: 09-19-2017 TRIATLHON POST STABIL FEM COMP FDA Start: 09-19-2017 DOUGH,CEMENT 6191-1-010 FDA Start: 09-19-2017 FEMI RAY 6191-1-010 FDA Start: 09-19-2017 TRIATHLON TIBIAL INSERT-PS FDA Start: 09-19-2017 TRIATHLON UNIV TIB BASEPLATE FDA Start: 09-19-2017 TRIATHLON X3 PATELLA FDA Start: 09-19-2017 TRIATLHON POST STABIL FEM COMP FDA Start: 09-19-2017 Clinical Notes 11-16-2023 to 04-03-2024 Telephone Encounter - Jennifer Bear - 04/03/2024 11:30 AM ESTTelephone Encounter - Jennifer Bear - 04/03/2024 11:30 AM ESTTelephone Encounter - Jennifer Bear - 04/01/2024 10:30 AM ESTPatient Instructions Note Date & Type Note Facility 04-03-2024 Telephone encounter Note Records received and scanned under Media [employer] 04-03-2024 Miscellaneous Notes Records received and scanned under Media I called [facility] and she requested me to fax med recs release to [phone] I faxed this morning. Confirmed 04/02 at 5:45p I spoke w/ Juana in Dr. Garces's office, asking for echo order to be faxed. I placed Teofilo brennan DNP to sign, order needs faxed to Juana's attention @ [phone]. Time frame dates given to Juana for completion of OV/EKG/echo. KCCQ mailed to pt. ----- Message from JEREMIE Saldaña CNP sent at 01/04/2024 1:51 PM EDT ----- Please call [facility] office and advise regarding registry requirements of one month and one yr appts and echo. Will likely need phone call for KCCQ. documented in this encounter [facility] 04-01-2024 Telephone encounter Note I called [facility] and she requested me to fax med recs release to [phone] I faxed this morning. Confirmed 04/02 at 5:45p [facility] 04-01-2024 Miscellaneous Notes I called [facility] and she requested me to fax med recs release to [phone] I faxed this morning. I spoke w/ Juana in Dr. Garces's office, asking for echo order to be faxed. I placed order, Teofilo David DNP to sign, order needs faxed to Juana's attention @ [phone]. Time frame dates given to Juana for completion of OV/EKG/echo. KCCQ mailed to pt. ----- Message from JEREMIE Saldaña CNP sent at 01/04/2024 1:51 PM EDT ----- Please call [facility] office and advise regarding registry requirements of one month and one yr appts and echo. Will likely need phone call for KCCQ. documented in this encounter [facility] 04-01-2024 Miscellaneous Notes I called [facility] and she requested me to fax med recs release to [phone] I faxed this morning. Confirmed 04/02 at 5:45p I spoke w/ Juana in Dr. Garces's office, asking for echo order to be faxed. I placed Teofilo brennan DNP to sign, order needs faxed to Juana's attention @ [phone]. Time frame dates given to Juana for completion of OV/EKG/echo. KCCQ mailed to pt. ----- Message from Mónica David, JEREMIE - LEARNING SUPPORT ASSISTANT sent at 01/04/2024 1:51 PM EDT ----- Please call [facility] office and advise regarding registry requirements of one month and one yr appts and echo. Will likely need phone call for KCCQ. documented in this encounter [facility] 01-10-2024 French Ceron [facility] 01-04-2024 Telephone encounter Note I spoke omid/ Juana in Dr. Garces's office, asking for echo order to be faxed. I placed Teofilo brennan DNP to sign, order needs faxed to Juana's attention @ [phone]. Time frame dates given to Juana for completion of OV/EKG/echo. KCCQ mailed to pt. [facility] 01-04-2024 Telephone encounter Note ----- Message from JEREMIE Saldaña CNP sent at 01/04/2024 1:51 PM EDT ----- Please call [facility] office and advise regarding registry requirements of one month and one yr appts and echo. Will likely need phone call for KCCQ. [facility] 01-04-2024 History of Present illness Narrative Images from the original note were not included. [facility] [address] [facility] [address] Dept: [phone] Dept Visit type: Established : 1940 Reason for Visit: Cardiac Valve Problem (One week post TAVR) Assessment and Plan 1. Chronic atrial fibrillation (HCC). HR stable. Continue Apixaban 2. Severe aortic stenosis. S/p tAVR. Continue Eliquis. Will contact [facility] regarding follow up and registry requirements. SBE prophylaxis. Plan echo in one month 3. Stage 3a chronic kidney disease (HCC). Renal function remains stable post procedure. 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 GFR 27--> 46 4. Left heart failure (HCC). Improved after TAVR, EF 30%--> 50 %, continue furosemide, Aldactone, Farxiga, metoprolol (allerg to landon/ARB) Plan follow up in [facility] Subjective Ms Call is an 83 yr old female with a PMH of permanent AF, HFrEF, HTN, HPL, CKD stage 3b, obesity, GERD, and severe with EF 30%, mean and peak gradients 49/71 mm Hg. She underwent cardiac cath at [facility] which showed non obstructive CAD. She underwent [...] wrist complaints. She wishes to follow in [facility] as travel is difficult for her Allergies Allergen Reactions Landon Inhibitors Other Iodinated Contrast Media Hives Lisinopril Cough Sacubitril Cough Valsartan Cough Outpatient Medications Prior to Visit Medication Sig Dispense Refill apixaban (Eliquis) 5 MG tablet Take 1 tablet (5 mg) by mouth 2 times daily. Resume 12/25 evening dose Farxiga 10 MG tablet Take [...] Hypokalemia LVH (left ventricular hypertrophy) Morbid obesity ([facility]) Osteoarthritis Vitamin D deficiency Social History Tobacco Use Smoking status: Never Smokeless tobacco: Never Substance Use Topics Alcohol use: Never Past Surgical History: Procedure Laterality Date APPENDECTOMY CARDIAC CATHETERIZATION N/A 12/25/2023 Performed by Harjeet Huffman MD at [facility] OR CATARACT EXTRACTION HYSTERECTOMY No family history [...] JEREMIE Ruiz CNP documented in this encounter [facility] 12-26-2023 Nurse Note Discharge instructions given to patient and daughter. Patient verbalizes understanding of medication changes and follow up appointments, and activity restrictions. Discharged to home with daughter. [facility] 12-26-2023 Nurse Note Discharge instructions given to patient and daughter. Patient verbalizes understanding of medication changes and follow up appointments, and activity restrictions. Discharged to home with daughter. documented in this encounter [facility] 12-26-2023 Note Attestation signed by Harjeet Huffman MD [...] JEREMIE Ruiz CNP, MD Primary Care Physician: ALVARADO HULL MD Reason for Admission: Severe Symptomatic Aortic [...] discharge. Referral has been made to the [facility] Program. Last Labs: Lab Results Component Value Date WBC 11.6 (H) 12/26/2023 HGB 14.0 12/26/2023 HCT 43.0 12/26/2023 MCV 97.9 12/26/2023 PLT 154 10/ (more content not included)... [facility] 12-26-2023 Consult note Associated Order (s): IP CONSULT TO CARDIAC REHAB Received referral and reviewed chart. Phase II Cardiopulmonary Rehab Referral discussed with Brianne Call. Patient prefers cardiopulmonary rehab at [facility]. Given information on program at preferred location. [facility] 12-26-2023 Note Received referral an d reviewed chart. Phase II Cardiopulmonary Rehab Referral discussed with Brianne Call. Patient prefers cardiopulmonary rehab at [facility]. Given information on program at preferred location. [facility] 12-26-2023 Consult note Associated Order (s): IP CONSULT TO CARDIAC REHAB Received referral and reviewed chart. Phase II Cardiopulmonary Rehab Referral discussed with Brianne Call. [facility] Given information on program at preferred location. documented in this encounter [facility] 12-26-2023 Note Atrial fibrillation Poor R wave progression, CONSIDER ANTERIOR INFARCT ST and T abnormality Electronically Signed On 12-26-2023 09:21:43 EDT by Austin Carmona [facility] 12-26-2023 Note Atrial fibrillation Poor R wave progression, CONSIDER ANTERIOR INFARCT ST and T abnormality Electronically Signed On 12-26-2023 09:21:43 EDT by Austin Carmona [facility] 12-26-2023 Note IMPRESSION: Atrial fibrillation Poor R wave progression, CONSIDER ANTERIOR INFARCT ST and T abnormality Electronically Signed On 12-26-2023 09:21:43 EDT by Austin Kristine [facility] 12-25-2023 Hospital Discharge instructions Mónica David APRN - SIM - 12/25/2023 12:24 PM EDT - Please call the [facility] with any questions: [phone] -You will have have the following follow [...] unless otherwise specified. documented in this encounter [facility] 12-25-2023 Note Patient: Brianne Yao rodolfo Procedure Summary Date: 12/25/23 Room / Location: [facility] Operating Room Anesthesia Start: 945 Anesthesia Stop: Procedures: TRANSCATHETER AORTIC VALVE REPLACEMENT, TRANSTHORACIC ECHOCARDIOGRAM TRANSCATHETER AORTIC VALVE REPLACEMENT, TRANSTHORACIC ECHOCARDIOGRAM (Chest) Diagnosis: Nonrheumatic aortic valve stenosis Surgeons: Harjeet Huffman MD; Tien Conrell MD Responsible Provider: Phu Lee MD Anesthesia [...] once all PACU criteria has been met. [facility] 12-25-2023 Note Patient: Brianne reynolds Procedure Summary Date: 12/25/23 Room / Location: [facility] Operating Room Anesthesia Start: 945 Anesthesia Stop: [...] opportunity for questions and acknowledgement of understanding. [facility] 12-25-2023 Note Arterial Line: Date/Time: 12/25/2023 [...] Performed: Other Other staff: Harjeet Huffman MD [facility] 12-25-2023 Note Formatting of this n [...] The valve was passed through the 14 Algerian sapient E sheath into the descending thoracic [...] patient was decannulated transferred stable to recovery. [facility] Phone: 12-25-2023 Note Formatting of this n ote might be different from the original. Date of surgery 12/25/2023 Cardiothoracic Surgeon: Tien Cornell MD, [facility] Preoperative diagnosis: Severe, symptomatic aortic valve stenosis [...] The valve was passed through the 14 [place]ian sapient E sheath into the descending thoracic [...] patient was decannulated transferred stable to recovery. [facility] Phone: 12-25-2023 Miscellaneous Notes Date of surgery [...] The valve was passed through the 14 Algerian sapient E sheath into the descending thoracic [...] stable to recovery. documented in this encounter [facility] 12-25-2023 Attending History and physical note H&P reviewed. The patient was examined and there are no changes to the H&P. Source Note - Arlene Velez APRN - LEARNING SUPPORT ASSISTANT - 12/22/2023 12:39 PM EDT Images from the original note were not included. H+ P copied to chart from (office provider's name Mónica David APRN) progress note dated 12/12/23 on behalf of (procedural physician's name Dr. Huffman). Expand All Collapse All [facility] [place] [address] [facility] [address] Dept: [phone] Dept Visit type: Established : 1940 Reason [...] 2 days prior and begin ASA. Brianne Aguayosydneygautam participated in a shared decision making process regarding treatment of aortic stenosis. Brianne Call was made aware of the techniques for aortic valve implantation, the risks and benefits for both forms of AVR therapy, medical management or a palliative care strategy, and the multidisciplinary team's recommendations to facilitate achieving the best outcome given specific risk, characteristics, and goals of care. Brianne Wlels Mandeepgautam was engaged in the decision and expressed [...] mm Hg. She underwent cardiac cath at [place] which showed non obstructive CAD. He kidney [...] for dysphoric mood. Allergies Allergies Allergen Reactions Landon Inhibitors Other Iodinated Contrast Media Hives Lisinopril [...] mg IntraVENous Once Mónica David APRN - LEARNING SUPPORT ASSISTANT sodium chloride 0.9 % bolus 500 mL [...] Independent interpretation of tests: JEREMIE Ruiz CNP [employer] Phone: 12-25-2023 History and physical note H&P [...] All Collapse All [facility] [place] [address] [facility] [address] Dept: [phone] Dept Visit type: Established : 1940 Reason [...] mm Hg. She underwent cardiac cath at [place] which showed non obstructive CAD. He kidney [...] for dysphoric mood. Allergies Allergies Allergen Reactions Landon Inhibitors Other Iodinated Contrast Media Hives Lisinopril [...] JEREMIE Ruiz CNP documented in this encounter [facility] 12-25-2023 Note H&P reviewed. The griselda hannah was examined and there are no changes to the H&P. [facility] 12-22-2023 History and physical note Images from the original note were not included. H+ P copied to chart from (office provider's name Mónica David APRN) progress note dated 12/12/23 on behalf of (procedural physician's name Dr. Huffman). Expand All Collapse All [facility] [place] [address] [place] [address] Dept: [phone] Dept Visit type: Established : 1940 Reason [...] mm Hg. She underwent cardiac cath at [place] which showed non obstructive CAD. He kidney [...] for dysphoric mood. Allergies Allergies Allergen Reactions Landon Inhibitors Other Iodinated Contrast Media Hives Lisinopril [...] mg IntraVENous Once Mónica David APRN - LEARNING SUPPORT ASSISTANT sodium chloride 0.9 % bolus 500 mL [...] interpretation of tests: Mónica David APRN - LEARNING SUPPORT ASSISTANT Associated attestation - Harjeet Huffman MD - [...] We will proceed with the planned procedure. [facility] 12-22-2023 History and physical note Images from the original note were not included. H+ P copied to chart from (office provider's name Mónica David APRN) progress note dated 12/12/23 on behalf of (procedural physician's name Dr. Huffman). Expand All Collapse All [facility] [address] [address] Dept: [phone] Dept Visit type: Established : 1940 Reason [...] mm Hg. She underwent cardiac cath at [place] which showed non obstructive CAD. He kidney [...] for dysphoric mood. Allergies Allergies Allergen Reactions Landon Inhibitors Other Iodinated Contrast Media Hives Lisinopril [...] mg IntraVENous Once Mónica David APRN - LEARNING SUPPORT ASSISTANT sodium chloride 0.9 % bolus 500 mL [...] interpretation of tests: Mónica David APRN - LEARNING SUPPORT ASSISTANT Associated attestation - Harjeet Huffman MD - [...] the planned procedure. documented in this encounter [facility] 12-22-2023 Note Attestation signed by Harjeet Huffman [...] Expand All Collapse All [facility] [address] [facility] [address] Dept: [phone] Dept Visit type: Established : 1940 Reason [...] mm Hg. She underwent cardiac cath at [place] which showed non obstructive CAD. He kidney [...] for dysphoric mood. Allergies Allergies Allergen Reactions Landon Inhibitors Other Iodinated Contrast Media Hives Lisinopril [...] spironolactone (Aldactone) 25 (more content not included)... [facility] 12-22-2023 Note Attestation signed by Harjeet [...] All Collapse All [facility] [address] [facility] [address] Dept: [phone] Dept Visit type: Established : 1940 Reason [...] mm Hg. She underwent cardiac cath at [place] which showed non obstructive CAD. He kidney [...] for dysphoric mood. Allergies Allergies Allergen Reactions Landon Inhibitors Other Iodinated Contrast Media Hives Lisinopril [...] spironolactone (Aldactone) 25 (more content not included)... [facility] 12-21-2023 Note Pre TAVR phone call placed. Reviewed, procedure, instructions and meds. Confirmed Eliquis, and Dye Allergy Prep med instructions. Pt verbalizes understanding. Pt knows to call [phone] with any concerns. Teofilo Velez CNP notified for prep for procedure orders. Diagnosis: Procedure being done: TF TAVR Date/time of procedure: 12/25/2023 @ 9:15 am Surgeon: Dr. Huffman 2nd surgeon: Dr. Olsen Admission type: To be admitted Anesthesia: MAC Completed: H&P/BNP/CBC/CMP/CXR/EKG Date completed: BMP 12/19/23, 12/12/23 Additional orders Dye Allergy Prep [facility] 12-15-2023 Note Patient: Brianne reynolds Procedure Information Date/Time: 12/25/23914 Procedures: TRANSCATHETER AORTIC VALVE REPLACEMENT, TRANSTHORACIC ECHOCARDIOGRAM TRANSCATHETER AORTIC VALVE REPLACEMENT, TRANSTHORACIC ECHOCARDIOGRAM (Chest) Location: [facility] Operating Room Surgeons: Harjeet Huffman MD; Juan [...] Records in media Carolina Waldron APRN - LEARNING SUPPORT ASSISTANT JOB Screening Labs: Lab Results Component Value [...] 71 mmHg Equipment Requests: Additional Equipment Requests [facility] 12-12-2023 History of Present illness Narrative Pts symptoms of the reaction have all gone away. Pt states she feels back to normal. Pt came back from CT and pts face is red and she states she is starting to progressively get itchy. Mónica David NP is here at this time and order medications. documented in this encounter [facility] 12-12-2023 History of Present illness Narrative Images from the original note were not included. [facility] [place] [address] Dept: [phone] Dept Visit type: Established : 1940 Reason [...] mm Hg. She underwent cardiac cath at [place] which showed non obstructive CAD. He kidney [...] Negative for dysphoric mood. Allergies Allergen Reactions Landon Inhibitors Other Iodinated Contrast Media Hives Lisinopril [...] mg IntraVENous Once Mónica David APRN - LEARNING SUPPORT ASSISTANT sodium chloride 0.9 % bolus 500 mL [...] JEREMIE Ruiz CNP documented in this encounter [facility] 12-12-2023 Note Pt came back from CT and pts face is red and she states she is starting to progressively get itchy. Mónica David ANIMAL CRUELTY INVESTIGATION SUPERVISOR is here at this time and order medications. [facility] 12-06-2023 Note Message reviewed. Re commend CTA with IV hydration. Can get pre procedure labs at time of CTA. [facility] 11-21-2023 History of Present illness Narrative Images from the original note were not included. [facility] [address] [facility] [address] Dept: [phone] Dept Loc: [phone] Today's Visit Location: TAVR (transcather aortic valve replacement) Clinic [facility] Cardiology [address] [place] [address] Visit type: Senior Health Assessment at TAVR (transcather aortic valve replacement) Clinic Visit Date: 11/21/2023 Reason for Visit: Shortness of Breath Assessment and Plan 1. Nonrheumatic aortic valve stenosis Assessment & Plan: S/p AV replacement by Dr. Nagy in 201209/22/23 Transthoracic Echo (TTE) noted severe aortic stenosis. Mean Gradient of 49. Dr. Garces in . No aortic valve area mentioned. I agree with cardiology plan as discussed with claims collector Dr. Huffman and CTS Dr. Reed on [...] Patient has already named her Power of Navigation Teacher for Healthcare and Finances (Both are her daughter Shama López) I recommended patient follow-up with [facility] (phone: [phone] fax: [phone]) as needed for memory testing. 4. Drug-induced [...] 09/22/23 Transthoracic Echo (TTE) noted severe aortic stenosis. Mean Gradient of 49. Dr. Garces in [place]. No aortic valve area mentioned. A fib [...] no=0 points)0 - patient rents room from [facility]. Rajiv (son) lives w pt Reduce mobility [...] difficulties noted by patient. Able to identify : yes Current events: Does know current [place] [...] Negative for dysphoric mood. Allergies Allergen Reactions Landon Inhibitors Other Lisinopril Cough Sacubitril Cough Valsartan [...] [] Daughter Shama López (financial Power of Navigation Teacher) is on bank acct but patient manages [...] phrases are mis-transcribed.) documented in this encounter [facility] 11-21-2023 Instructions Thaddeus Mckeon MD - 11/21/2023 3:30 PM EDT GERIATRICS DISCHARGE INSTRUCTIONS: Follow-up with [facility] (phone: [phone] fax: [phone]) as needed for memory testing. Please BEGIN [...] risk of falls. documented in this encounter [facility] 11-21-2023 Evaluation + Plan note Associated Problem(s): Drug-induced bradycardia HR 58 bpm today but no syncope, presyncope, falls Patient asymptomatic today Patient taking lopressor 12.5mg po bid - I encouraged patient to discuss with her cardiologists/PCP (primary care provider) regarding change of meds given her advanced age and increased risk of falls [facility] 11-21-2023 Miscellaneous Notes Associated Problem(s): Drug-induced bradycardia [...] Patient has already named her Power of Navigation Teacher for Healthcare and Finances (Both are her daughter Shama López) I recommended patient follow-up with [facility] (phone: [phone] fax: [phone]) as needed for memory testing. Associated Problem(s): [...] 201209/22/23 Transthoracic Echo (TTE) noted severe aortic stenosis. Mean Gradient of 49. Dr. Garces in [place]. No aortic valve area mentioned. I agree with cardiology plan as discussed with claims collector Dr. Huffman and CTS Dr. Reed on same date regarding next steps for further workup/treatment of cardiac disease which likely includes heart cath +/- TAVR. On this date of evaluation, the patient has sufficient understanding of procedure(s) to consent to the procedure(s) being discussed and has adequate social support(s). documented in this encounter [facility] 11-21-2023 History of Present illness Narrative Images from the original note were not included. [facility] Medical Group: Cardiothoracic Surgery Multidisciplinary Heart Valve Clinic Date: 11/21/23 Patient:Brianne Call 1940 83 y.o. female [id number] Subjective: HPI: Brianne Call 83 y.o. referred [...] easily. Psychiatric/Behavioral: Negative for dysphoric mood. Allergies: Landon inhibitors, Lisinopril, Sacubitril, and Valsartan Past Medical [...] by mouth 2 times daily. Historical Provider, MD Hernandez 10 MG tablet Take 10 mg by [...] Reviewed in EMR No results found for: WBC, HGB, HCT, MCV, PLT No results found for: NA, K, CL, CO2, BUN, CREATININE, GLUCOSE, CALCIUM Diagnostics: Reviewed in EMR Assessment/Plan: Mrs. [...] the near future. Given her proximity to [facility], she would prefer LHC performed there. We [...] DO, MS, FACCRISTINA Patient Care Team: Alvarado Hull MD as PCP - General (Geriatric Medicine) [...] other diagnostic images. documented in this encounter [facility] 11-21-2023 Evaluation + Plan note Associated Problem(s): Short-term memory loss Chronic Patient with occasional word-finding difficulties I suspect either normal memory loss for aging or possibly MCI (Mild Cognitive Impairment) Patient has already named her Power of Navigation Teacher for Healthcare and Finances (Both are her daughter Shama López) I recommended patient follow-up with [facility] (phone: [phone] fax: [phone]) as needed for memory testing. [facility] 11-21-2023 Evaluation + Plan note Associated Problem(s): Chronic atrial fibrillation (HCC) Chronic; Stable Asymptomatic May be nearing renal (kidney) dysfunction requiring reduced dose of eliquis (given Cr nearly 1.5 in past and patient's age >80 yo). 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 Nagy in 201209/22/23 Transthoracic Echo (TTE) noted severe aortic stenosis. Mean Gradient of 49. Dr. Garces in [place]. No aortic valve area mentioned. I agree with cardiology plan as discussed with claims collector Dr. Huffman and CTS Dr. Reed on same date regarding next steps for further workup/treatment of cardiac disease which likely includes heart cath +/- TAVR. On this date of evaluation, the patient has sufficient understanding of procedure(s) to consent to the procedure(s) being discussed and has adequate social support(s). [facility] 11-21-2023 History of Present illness Narrative Images from the original note were not included. [facility] [address] [facility] [address] Dept: [phone] Dept Visit type: New : 1940 Reason for Visit: Cardiac Valve Problem Assessment and Plan 1. LV dysfunction 2. Stenosis of prosthetic aortic valve, initial encounter - ECG 12 lead - CLINIC PERFORMED This is a very pleasant 83 y.o. 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 she is clearly in need of aortic valve replacement, likely [id number] TAVR. Will need a diagnostic cath first, [...] up for Recheck on cath complete. Sonya Goddarddamon Call is a very pleasant 83 y.o. [...] Negative for dysphoric mood. Allergies Allergen Reactions Landon Inhibitors Other Lisinopril Cough Sacubitril Cough Valsartan [...] Harjeet Huffman MD documented in this encounter [facility] 11-16-2023 Note Received fax referra l to Heart Valve Clinic from Dr. Garces @ [facility]. I spoke w/ Juana, echo images to be pushed to PACS, she will fax lab work. I spoke w/ pt, appt scheduled. Chart made. [facility] Evaluation note No assessment inform ation available [facility] Work Phone: Evaluation note Diagnosis Nonrheumatic aortic valve stenosis- Primary Chronic atrial fibrillation (HCC) Atrial fibrillation Short-term memory loss Memory loss Drug-induced bradycardia Polypharmacy Issue of repeat prescriptions [facility] Diagnosis Stenosis of prosthetic aortic valve, initial encounter- Primary documented in this encounter [facility] note* Diagnosis LV dysfunction- Primary Left heart failure Stenosis of prosthetic aortic valve, initial encounter documented in this encounter [facility]* Diagnosis Nonrheumatic aortic valve stenosis- Primary Chronic atrial fibrillation (HCC)- Primary Atrial fibrillation Nonrheumatic aortic valve stenosis Adverse effect of contrast media, initial encounter Nonrheumatic aortic valve stenosis documented in this encounter [facility] Diagnosis Nonrheumatic aortic valve stenosis- Primary Renal failure, unspecified chronicity Stenosis of prosthetic aortic valve, initial encounter Nonrheumatic aortic valve stenosis documented in this encounter [facility] note* Diagnosis Nonrheumatic aortic valve stenosis- Primary Nonrheumatic aortic valve stenosis Nonrheumatic aortic valve stenosis documented in this encounter [facility] note* Diagnosis Nonrheumatic aortic valve stenosis- Primary Severe aortic stenosis- Primary Aortic valve disorders Nonrheumatic aortic valve stenosis documented in this encounter [facility]* Diagnosis Severe aortic stenosis- Primary Aortic valve disorders documented in this encounter [facility] note* Diagnosis Nonrheumatic aortic valve stenosis- Primary Severe aortic stenosis Aortic valve disorders Severe aortic stenosis Aortic valve disorders Nonrheumatic aortic valve stenosis documented in this encounter [facility] note* Diagnosis Chronic atrial fibrillation (HCC)- Primary Atrial fibrillation Severe aortic stenosis Aortic valve disorders Stage 3a chronic kidney disease (HCC) Left heart failure (HCC) Left heart failure [facility] Diagnosis Nonrheumatic aortic valve stenosis- Primary Chronic atrial fibrillation (HCC) Atrial fibrillation Short-term memory loss Memory loss Drug-induced bradycardia Polypharmacy Issue of repeat prescriptions S/P TAVR (transcatheter aortic valve replacement) [facility] Diagnosis Nonrheumatic aortic valve stenosis- Primary Chronic atrial fibrillation (HCC) Atrial fibrillation Short-term memory loss Memory loss Drug-induced bradycardia Polypharmacy Issue of repeat prescriptions S/P TAVR (transcatheter aortic valve replacement) [facility] (n[facility]ative)No reason for referral information availableWUniversity [facility] Work Phone: Family History No Family History Records Found Relationship Condition Age at Onset Recorded Date/T robinson Not Specified Malignant neoplasm of skin Unknown Arthritis Unknown Hypertension Unknown father Unknown Unknown Relationship Condition Age at Onset Recorded Date/T robinson Not Specified Malignant neoplasm of skin Unknown Arthritis Unknown Hypertension Unknown father Unknown Unknown mother Acute renal failure Unknown Advance Directives No Advanced Directives Records Found Advance Directive Response Recorded Date/ Time Advance Directives Yes September 07 9:01am Living Will Yes December 26 8 12:21pm Power of Navigation Teacher Yes December 26 12:21pm Date Activated Date Inactivated Comments 12/25/2023 7:26 AM Date Activated Date Inactivated Comments 12/25/2023 7:26 AM 12/26/2023 3:54 PM Date Activated Date Inactivated Comments 12/25/2023 7:26 AM 12/26/2023 3:54 PM Advance Directive Response Recorded Date/ Time Advance Directives Yes November 7:44am Reason for Referral Specialty Diagnoses / Procedures Referred By Roseline ervin Referred To Contact Radiology Diagnoses Nonrheumatic aortic valve stenosis Procedures CTA Angiogram TAVR Arlene Velez APRN - LEARNING SUPPORT ASSISTANT [address] [place] [address] Referral ID Status Reason Start Date Expiration Date Visits Re quested Visits Authorized [id number] Closed 12/07/2023 02/05/2024 1 1 Summary Purpose Chief Complaint and Reason for Visit Chief Complaint Admit Date MONTHLY EXAM February 27, 2024 3:12pm LABWORK March 01, 2024 5:00am SKILLED NURSING LAB WORK March 08 4:00am LABWORK March 15, 2024 2:14pm NEW CONCERN March 15, 2024 4:36pm MONTHLY EXAM April 02, 2024 1 1:01pm SKILLED NURSING LAB WORK April 09, 2024 5:00am SKILLED NURSING LAB WORK April 22, 2024 5:00am LABWORK May 07, 2024 5:00am MONTHLY EXAM May 16, 2024 11:05am SKILLED NURSING LAB WORK June 04, 2024 5 :00am Chief Complaint Admit Date MONTHLY EXAM April 02, 2024 1 1:01pm SKILLED NURSING LAB WORK April 09, 2024 5:00am SKILLED NURSING LAB WORK April 22, 2024 5:00am LABWORK May 07, 2024 5:00am MONTHLY EXAM May 16, 2024 11:05am MONTHLY EXAM May 28, 2024 4:2 0pm SKILLED NURSING LAB WORK June 04, 2024 5 :00am SKILLED NURSING LAB WORK June 18, 2024 5: 00am SKILLED NURSING LAB WORK July 02, 2024 5 :00am Chief Complaint Admit Date SKILLED NURSING LAB WORK April 22, 2024 5:00am LABWORK May 07, 2024 5:00am MONTHLY EXAM May 16, 2024 11:05am MONTHLY EXAM May 28, 2024 4:2 0pm SKILLED NURSING LAB WORK June 04, 2024 5 :00am SKILLED NURSING LAB WORK June 18, 2024 5: 00am SKILLED NURSING LAB WORK July 02, 2024 5 :00am LABWORK July 30, 2024 5:00a m Additional Source Comments Goals (unrecognized section and content) Goals may be documented in a n alternate sectionGoals may be documented in an alternate sectionGoals may be documented in an alternate sectionGoals may be documented in an alternate sectionGoals may be documented in an alternate sectionGoals may be documented in an alternate sectionGoals may be documented in an alternate section Care Teams (unrecognized sec tion and content) Team Status: Active Member Role Status Dates Dr. Scott Hull MD Primary Care Provider Active Team Status: Active Member Role Status Dates Dr. Scott Hull MD Primary Care Provider Active Start: April 22, 2024 Joe PORTILLO MD Attending Provider Active Start: April 22, 2024 Team Status: Active Member Role Status Dates Dr. Scott Hull MD Primary Care Provider Active Start: May 07, 2024 Joe PORTILLO MD Attending Provider Active Start: May 07, 2024 Team Status: Inactive Member Role Status Dates Dr. Scott Hull MD Primary Care Provider Active Start: May 16, 2024 End: May 16, 2024 GRISELDA Lai Attending Provider Active St art: May 16, 2024 End: May 16, 2024 Team Status: Inactive Member Role Status Dates Dr. Scott Hull MD Primary Care Provider Active Start: May 28, 2024 End: May 28, 2024 Dr. Joe Sanchez MD Attending Provider Active Start: May 28, 2024 End: May 28, 2024 Team Status: Inactive Member Role Status Dates Dr. Scott Hull MD Primary Care Provider Active Start: June 04, 2024 End: June 04, 2024 Joe PORTILLO MD Attending Provider Active Start: June 04, 2024 End: June 04, 2024 Team Status: Inactive Member Role Status Dates Dr. Scott Hull MD Primary Care Provider Active Start: June 18, 2024 End: June 18, 2024 Joe PORTILLO MD Attending Provider Active Start: June 18, 2024 End: June 18, 2024 Team Status: Inactive Member Role Status Dates Dr. Soctt Hull MD Primary Care Provider Active Start: July 02, 2024 End: July 02, 2024 Joe PORTILLO MD Attending Provider Active Start: July 02, 2024 End: July 02, 2024 Team Status: Active Member Role Status Dates Dr. Scott Hull MD Primary Care Provider Active Start: July 15, 2024 Joe PORTILLO MD Attending Provider Active Start: July 15, 2024 Team Status: Inactive Member Role Status Dates Dr. Scott Hull MD Primary Care Provider Active Start: July 30, 2024 End: July 30, 2024 Joe PORTILLO MD Attending Provider Active Start: July 30, 2024 End: July 30, 2024 Team Status: Active Member Role Status Dates Dr. Scott Hull MD Primary Care Provider Active Start: August 14, 2024 Joe PORTILLO MD Attending Provider Active Start: August 14, 2024 Team Status: Active Member Role Status Dates Dr. Scott Hull MD Family Provider Active Dr. Scott Hull MD Primary Care Provider Active Team Status: Inactive Member Role Status Dates Dr. Scott Hull MD Primary Care Provider, Attending Provider Active Team Status: Inactive Member Role Status Dates Dr. Scott Hull MD Primary Care Provi guillermo, Attending Provider, Referring Provider Active Assembly Line Upholsterer Relationship Specialty Start Date End Date Alvarado Hull MD [address] [place] [address] PCP - General Geriatric Medicine 11/21/23 Assembly Line Upholsterer Relationship Specialty Start Date End Date Alvarado Hull MD [address] [place] [address] PCP - General Geriatric Medicine 11/21/23 Assembly Line Upholsterer Relationship Specialty Start Date End Date Alvarado Hull MD [address] [place] [address] PCP - General Geriatric Medicine 11/21/23 Assembly Line Upholsterer Relationship Specialty Start Date End Date Alvarado Hull MD [address] [place] [address] PCP - General Geriatric Medicine 11/21/23 Assembly Line Upholsterer Relationship Specialty Start Date End Date Alvarado Hull MD [address] [place] [address] PCP - General Geriatric Medicine 11/21/23 Assembly Line Upholsterer Relationship Specialty Start Date End Date Alvarado Hull MD [address] [place] [address] PCP - General Geriatric Medicine 11/21/23 Assembly Line Upholsterer Relationship Specialty Start Date End Date Alvarado Hull MD [address] [place] [address] PCP - General Geriatric Medicine 11/21/23 Assembly Line Upholsterer Relationship Specialty Start Date End Date Alvarado Hull MD [address] [place] [address] PCP - General Geriatric Medicine 11/21/23 Assembly Line Upholsterer Relationship Specialty Start Date End Date Alvarado Hull MD [address] [place] [address] PCP - General Geriatric Medicine 11/21/23 Assembly Line Upholsterer Relationship Specialty Start Date End Date Alvarado Hull MD [address] [place] [address] PCP - General Geriatric Medicine 11/21/23 Assembly Line Upholsterer Relationship Specialty Start Date End Date Alvarado Hull MD [address] [place] [address] PCP - General Geriatric Medicine 11/21/23 Team Status: Inactive Member Role Status Dates Dr. Scott Hull MD Primary Care Provider Active Start: February 27, 2024 End: February 27, 2024 Sara Irizarry ANIMAL CRUELTY INVESTIGATION SUPERVISOR, ANIMAL CRUELTY INVESTIGATION SUPERVISOR-C Attending Provider Active Start: February 27, 2024 End: February 27, 2024 Team Status: Inactive Member Role Status Dates Dr. Scott Hull MD Primary Care Provider Active Start: March 01, 2024 End: March 01, 2024 Joe PORTILLO MD Attending Provider Active Start: March 01, 2024 End: March 01, 2024 Team Status: Active Member Role Status Dates Dr. Scott Hull MD Primary Care Provider Active Start: March 08, 2024 Joe PORTILLO MD Attending Provider Active Start: March 08, 2024 Joe PORTILLO MD Referring Provider Active Start: March 08, 2024 Team Status: Active Member Role Status Dates Dr. Scott Hull MD Primary Care Provider Active Start: March 15, 2024 Joe PORTILLO MD Attending Provider Active Start: March 15, 2024 Team Status: Inactive Member Role Status Dates Dr. Scott Hull MD Primary Care Provider Active Start: March 15, 2024 End: March 15, 2024 Sara Irizarry NP, ANIMAL CRUELTY INVESTIGATION SUPERVISOR-C Attending Provider Active Start: March 15, 2024 End: March 15, 2024 Team Status: Inactive Member Role Status Dates Dr. Scott Hull MD Primary Care Provider Active Start: April 02, 2024 End: April 02, 2024 Dr. Joe Sanchez MD Attending Provider Active Start: April 02, 2024 End: April 02, 2024 Team Status: Inactive Member Role Status Dates Dr. Scott Hull MD Primary Care Provider Active Start: April 09, 2024 End: April 09, 2024 Joe PORTILLO MD Attending Provider Active Start: April 09, 2024 End: April 09, 2024 Team Status: Active Member Role Status Dates Dr. Scott Hull MD Primary Care Provider Active Start: June 18, 2024 Joe PORTILLO MD Attending Provider Active Start: June 18, 2024 Reason for Visit (unrecogniz ed section and content) Reason Comments Shortness of Breath Reason Comments Cardiac Valve Problem Reason Comments Cardiac Valve Problem Patient seen in pr ivate OP procedure area for H + P update and education prior to scheduled TAVR Reason Comments OP Infusion Specialty Diagnoses / Procedures Referred By Roseline ervin Referred To Contact Infusion Therapy Diagnoses Renal failure, unspecified chronicity Stenosis of prosthetic aortic valve, initial encounter Procedures ONCBCN THERAPY INFUSION APPOINTMENT REQUEST INFUSION TREATMENT Harjeet Huffman MD [address] [facility] [address] [place] [address] [facility] [address] [place] [address] Referral ID Status Reason Start Date Expiration Date Visits Re quested Visits Authorized [id number] Closed 12/12/2023 12/06/2024 1 1 Specialty Diagnoses / Procedures Referred By Roseline ervin Referred To Contact Radiology Diagnoses Nonrheumatic aortic valve stenosis Procedures CTA Angiogram TAVR Arlene Velez APRN - SIM [address] [place] [address] Referral ID Status Reason Start Date Expiration Date Visits Re quested Visits Authorized [id number] Closed 12/07/2023 02/05/2024 1 1 Specialty Diagnoses / Procedures Referred By Contac t Referred To Contact Diagnoses Nonrheumatic aortic valve stenosis Procedures TRANSCATHETER AORTIC VALVE REPLACEMENT, TRANSTHORACIC ECHOCARDIOGRAM TRANSCATHETER AORTIC VALVE REPLACEMENT, TRANSTHORACIC ECHOCARDIOGRAM Harjeet Huffman MD [address] [place] [address] [address] [place] [address] Referral ID Status Reason Start Date Expiration Date Visits Re quested Visits Authorized [id number] 1 1 Reason Comments Cardiac Valve Problem One week post TAVR Reason Onset Date Comments Orders 01/04/2024 Scheduled Active and Recently Administ ered Medications [...] Indication (Select all that apply): Surgical Prophylaxis 59 (Given - Provider: Edgar Warner APRN - SECTION CHIEF) dapagliflozin (Farxiga) tablet 10 mg 10 mg, Oral, Daily, First dose on Mon12/26/23 at 0900, Indications: Chronic Renal Disease 30 (Given - Provid er: Leticia Arshad RN) diphenhydrAMINE (BENADryl) tablet/capsule 50 mg (COMPLETED) 50 mg, Oral, Once, On Mon12/25/23 at 0730, For 1 dose, Preprocedure 0800 (Given - Provider: Jelena Doan, RN) famotidine (Pepcid) tablet 40 mg (COMPLETED) 40 mg, Oral, Once, On Mon12/25/23 at 0730, For 1 dose, Preprocedure, One hour prior to procedure 0800 (Given - Provider: Jelena Doan, RN) febuxostat (Uloric) tablet 40 mg 40 mg, [...] RN)2006 (Given - Provider: Ellen Durant RN) 09 (Given - Provider: Leticia Arshad RN) pantoprazole (ProtoNix) EC tablet 40 mg 40 mg, Oral, Daily before breakfast, First dose on Mon12/26/23 at 0600, Do not crush, chew, or split. 0513 (Given - Provid er: Ellen Durant, LEW) predniSONE (Deltasone) tablet 60 mg (COMPLETED) 60 mg, Oral, Once, On Mon12/25/23 at 0730, For 1 dose, Preprocedure, One hour prior to procedure 0800 (Given - Provider: Jelena Doan, LEW) spironolactone (Aldactone) tablet 25 mg 25 mg, [...] Doan RN)0946 (Continued by Anesthesia - Provider: JEREMIE Neri CRNA)1118 (Anesthesia Volume Adjustment - Provider: JEREMIE Neri [...] 1046 (Given - Provider: Harjeet Huffman MD) INFORMATION SOURCE (unrecogn ized section and content) DATE CREATED AUTHOR 04/04/2024 [facility]To [facility] DATE CREATED AUTHOR AUTHOR'S ORGANIZ ATION 08/22/2024 [facility] FOR RECORDS PERTAINING TO PATIENTS WHO ARE [...] BE BASED ON THE PRIMARY CLINICAL RECORDS. [employer] [facility]. provides no warranty or guarantee of the accuracy or completeness of information in this document.
--- OUTSIDE RECORDS SUMMARY | 2024-08-27 04:08 | XMS RPT_ITS | CCD ---
Author Organization [facility] [employer] Care Team Providers Care Operational Risk Manager Name Role Phone SingerPaige N Unavailable Lucrecia [...] MD, Dr. Scott Sabillon Primary Care Provider [phone] Joe Sanchez MD Attending Provider Unavailagustin Sanchez [...] Kurtis, Scott Chi Primary Care Unavailable [place] DATABASE REPORT WRITER, Sara Attending Unavailable Kurtis, Scott Chi Primary Care Unavailable [place] DATABASE REPORT WRITER, Sara Attending Unavailable Kurtis, Scott Chi Primary Care Unavailable [place] DATABASE REPORT WRITER, Sara Attending Unavailable Kurtis, Scott Chi Primary Care Unavailable [place] DATABASE REPORT WRITER, Sara Attending Unavailable Kurtis, Scott Chi Primary [...] [LANDON Inhibitors] drug allergy 11-06-19 16 Other [facility] Work Phone: (8 sources) Lisinopril Drug Allergy 03-04-20 [facility] (17 sources) Lisinopril Propensity to adverse reactions 11-14-19 [facility] (17 sources) sacubitril Drug Allergy 11-14-19 [facility] (17 sources) Valsartan Propensity to adverse reactions 11-14-19 [facility] (14 sources) Iodinated Contrast Media Propensity to adverse reactions 12-12-19 [facility] (3 sources) dapagliflozin Drug Allergy 02-07-20 [facility] (3 sources) sacubitril Drug Allergy 02-07-20 [facility] (3 sources) Triiodobenzoic Acids Allergy to substance 02-07-20 [facility] Comment on above: hives, red face and itching (3 sources) valsartan Drug Allergy 02-07-20 [facility] (1 source) dapagliflozin Drug Allergy 02-07-20 [facility] (1 source) Lisinopril Drug Allergy 02-07-20 [facility] (1 source) sacubitril Drug Allergy 02-07-20 [facility] (1 source) valsartan Drug Allergy 02-07-20 [facility] (1 source) Iodinated Contrast Media Drug allergy (disorder) 02-07-20 [facility] Medications Current Medications Medication Drug Class(es) [...] tablet by mouth twice daily PANTOPRAZOLE SODIUM [id number] Gerald Barragan MD potassium chloride 20 meq [...] CAPS One tablet by mouth daily CELECOXIB [id number] Mónica Gutierrez PA-C diphenhydrAMINE hydrochloride 25 mg oral tablet (2 sources) Histamine-1 Receptor Antagonist Start: 12-25-2023 End: 12-25-2023 take 50 mg by mouth once 50 mg, Oral, Once, On Mon12/25/23 at 0730, For 1 dose, Preprocedure docusate sodium 50 mg / sennosides, detention 8.6 mg oral tablet (8 sources) Start: [...] #25 Medtronic Porcin e 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 Jeyson sánchez @ [facility], and 01/18/2013 per Kahlil Burgess Residual codes; [...] aftercare (18 sources) Polypharmacy ; Translations: [Other terminal makeup operator (current) drug therapy] Onset: 11-21-2023 11-21-2023 Episodic Other aftercare (2 sources) Other correction (current) drug therapy; Translations: [Other terminal makeup operator (current) drug therapy] Onset: 11-21-2023 Episodic Other [...] Auto (Unsp spec) [#/Vol] 1.85 10*3/uL 0.83-4.51 [facility] Absolute neutrophil countOrd ered By: Joe Sanchez on 07-30-2024 Neutrophils (Bld) [#/Vol] 3.8 10*3/uL 2.0-7.7 [facility] Anion gap in Serum or Plasma Ordered By: Joe Sanchez on 07-30-2024 Anion gap [Moles/Vol] 12 mmol/L 5-15 [facility] Automated lymphocyte count a s percentage of total leukocytesOrdered By: Joe Sanchez on 07-30-2024 Lymphocytes/100 WBC Auto (Unsp spec) 28.5 % - [facility] BUN/creatinine ratioOrdered By: montez Sanchez on 07-30-2024 Urea nitrogen/Creatinine [Mass ratio] 14.9 mg/mg 10-20 [facility] Basophil percentageOrdered B y: Joe Sanchez on 07-30-2024 Basophils/100 WBC (Bld) 1.1 % High 0-1 [facility] Carbon dioxide, total [Moles /volume] in Central venous bloodOrdered By: Joe Sanchez on 07-30-2024 CO2 [Moles/Vol] 26.5 mmol/L 21.0-32.0 [facility] Chloride assayOrdered By: Lluvia Sanchez on 07-30-2024 Chloride [Moles/Vol] 100 mmol/L 98-108 [facility] [place] Eosinophil percentageOrdered By: Joe Sanchez on 07-30-2024 Eosinophils/100 WBC (Bld) 1.8 % 0-5 [facility] Erythrocyte distribution wid th ratioOrdered By: Joe Sanchez on 07-30-2024 Erythrocyte distribution width (RBC) [Ratio] 14.2 % 11.6-14.6 [facility] Erythrocyte distribution wid th standard deviationOrdered By: Joe Sanchez on 07-30-2024 Erythrocyte distribution width (RBC) [Ratio] 52.9 fl High 35.1-43.9 [facility] Glomerular filtration rate ( GFR) estimation/1.73 sq m using serum, plasma, or whole bOrdered By: Joe Sanchez on 07-30-2024 GFR/1.73 sq M.predicted among non-blacks MDRD (S/P/Bld) [Vol rate/Area] 26 mL/min/{1.73_m2} Low >60 [facility] Comment on above: mL/min/1.73m2 CKD-EP I Creatinine Equation (2020) Hematocrit Auto (Bld) [Volum e fraction]Ordered By: Joe Sanchez on 07-30-2024 Hematocrit (Bld) [Volume fraction] 41.4 % 37-47 [facility] Hemoglobin measurementOrdere d By: Joe Sanchez on 07-30-2024 Hemoglobin (Bld) [Mass/Vol] 13.5 g/dL 12.0-15.0 [facility] Immature granulocytes/100 WB C Auto (Bld)Ordered By: Joe Sanchez on 07-30-2024 Immature granulocytes/100 WBC (Bld) 0.800 % 0.0-0.9 [facility] Comment on above: IG% - Immature Granu locytes (promyelocytes, myelocytes and metamyelocytes) > 1% indicates that a LEFT SHIFT is Present. MCV (mean corpuscular volume ) determinationOrdered By: Joe Sanchez on 07-30-2024 MCV (RBC) [Entitic vol] 102.7 fL High 81-99 [facility] Mean corpuscular hemoglobin (MCH) determinationOrdered By: Joe Sanchez on 07-30-2024 MCH (RBC) [Entitic mass] 33.5 pg High 27.0-32.0 [facility] Mean corpuscular hemoglobin concentration (MCHC) determinationOrdered By: Joe Sanchez on 07-30-2024 MCHC (RBC) [Mass/Vol] 32.6 g/dL 32-36 [facility] Mean platelet volume determi nationOrdered By: Joe Sanchez on 07-30-2024 Platelet mean volume (Bld) [Entitic vol] 11.8 fL 6.2-12.0 [facility] Monocyte percentageOrdered B y: Joe Sanchez on 07-30-2024 Monocytes/100 WBC (Bld) 9.2 % 0-10 [facility] Neutrophil percentageOrdered By: [facility] on 07-30-2024 Neutrophils/100 WBC (Bld) 58.6 % 47-70 [facility] Nucleated red blood cell per centageOrdered By: Joe Sanchez on 07-30-2024 Nucleated RBC/100 WBC (Bld) [Ratio] 0 % 0-5 [facility] Platelet countOrdered By: Lluvia Sanchez on 07-30-2024 Platelets (Bld) [#/Vol] 167 10*3/uL 150-450 [facility] Potassium measurement (mass/ volume)Ordered By: Joe Sanchez on 07-30-2024 Potassium (Unsp spec) [Mass/Vol] 4.3 mmol/L 3.3-5.1 [facility] Comment on above: Hemolysis present, R esults could be affected. RBC Auto (Bld) [#/Vol]Ordere d By: Joe Sanchez on 07-30-2024 RBC (Bld) [#/Vol] 4.03 10*6/uL Low 4.2-5.4 [facility] Serum creatinine measurement (mass/volume)Ordered By: Joe Sanchez on 07-30-2024 Creatinine [Mass/Vol] 1.87 mg/dL High 0.70-1.20 [facility] Serum glucose measurement (m ass/volume)Ordered By: Joe Sanchez on 07-30-2024 Glucose [Mass/Vol] 89 mg/dL 70-99 [facility] Serum or plasma calcium leah urement (mass/volume)Ordered By: Joe Sanchez on 07-30-2024 Calcium [Mass/Vol] 9.4 mg/dL 7.6-11.0 [facility] Serum or plasma urea nitroge n measurement (mass/volume)Ordered By: Joe Sanchez on 07-30-2024 Urea nitrogen [Mass/Vol] 28 mg/dL High 4-19 [facility] Sodium levelOrdered By: Yudi Sanchez on 07-30-2024 Sodium [Moles/Vol] 138 mmol/L 133-145 [facility] White blood cell (WBC) count Ordered By: Joe Sanchez on 07-30-2024 WBC (Bld) [#/Vol] 6.5 10*3/uL 4.4-11.0 [facility] Bilirubin directOrdered By: Joe Sanchez on 07-15-2024 Bilirubin.direct [Mass/Vol] 0.26 mg/dL 0.00-0.30 [facility] Bilirubin, totalOrdered By: Joe Sanchez on 07-15-2024 Bilirubin [Mass/Vol] 0.62 mg/dL 0.00-1.30 [facility] [place] Calculated very low density lipoprotein (VLDL) cholesterol measurementOrdered By: Joe Sanchez on 07-15-2024 Calculated very low density lipoprotein (VLDL) cholesterol measurement 20 mg/dL 5-40 [facility] Hemoglobin A1c percentageOrd ered By: Joe Sanchez on 07-15-2024 HbA1c (Bld) [Mass fraction] 5.5 % <5.7 [facility] Comment on above: Normal < 5.7 % Predi abetic 5.7 - 6.4 % Diabetic >or= 6.5 % Please note range changes. LDL calc ser/plasOrdered By: Joe Sanchez on 07-15-2024 Cholesterol in LDL [Mass/Vol] 86 mg/dL [facility] Comment on above: Bntbjnuqfk=452-602 m g/dL & Higher Iciq=375 mg/dL or greater Laboratory - Chemistry and C hemistry - challengeOrdered By: Joe Sanchez on 07-15-2024 AST [Catalytic activity/Vol] 19 U/L <32 [facility] Screening total cholesterol/ high density lipoprotein (HDL) cholesterol ratioOrdered By: Joe Sanchez on 07-15-2024 Cholesterol.total/Shannon sterol in HDL [Mass ratio] 3.91 {ratio} [facility] Serum globulin measurementOr dered By: Joe Sanchez 07-15-2024 Globulin (S) [Mass/Vol] 3.2 g/dL 2.2-4.2 [facility] Serum or plasma alanine kilpatrick otransferase (ALT) measurementOrdered By: Joe Sanchez on 07-15-2024 ALT [Catalytic activity/Vol] 7 U/L <35 [facility] Serum or plasma albumin leah urement (mass/volume)Ordered By: Joe Sanchez 07-15-2024 Albumin [Mass/Vol] 3.4 g/dL 3.4-4.8 [facility] Serum or plasma alkaline kirti sphatase measurementOrdered By: Joe Sanchez 07-15-2024 ALP [Catalytic activity/Vol] 67 U/L 35-104 [facility] Serum or plasma cholesterol in HDL measurement (mass/volume)Ordered By: Joe Sanchez 07-15-2024 Cholesterol in HDL [Mass/Vol] 36 mg/dL Low >40 [facility] Comment on above: National Cholesterol Education Program (NCEP) guidelines:<40 mg/dL: Low HDL-cholesterol (major risk factor for CHD)>= 60 mg/dL: High HDL-cholesterol (negative risk factor for CHD)HDL-cholesterol is affected by a number of factors, e.g. smoking, exercise, hormones, sex and age. Serum or plasma cholesterol measurement (mass/volume)Ordered By: Lluviaclaudiomelissalynnette Morrisawaismilton on 07-15-2024 Cholesterol [Mass/Vol] 142 mg/dL <201 [facility] Comment on above: Cholesterol level, D esirable <200 mg/dLBorderline high cholesterol 200-239 mg/dLHigh cholesterol >=240 mg/dLRecommendations of the NCEP Adult Treatment Panel for the following risk-cutoff thresholds for the [place] population. Total proteinOrdered By: Constantin frausto Arturoawaismilton on 07-15-2024 Protein [Mass/Vol] 6.7 g/dL 5.9-8.4 [facility] Triglycerides measurementOrd ered By: Lluviaclaudiokayleigh Arturoawaismilton on 07-15-2024 Triglyceride [Mass/Vol] 101 mg/dL <199 [facility] Comment on above: The drugs N-Acetylcy steine and Metamizole may falsely depress this assay. Normal range: <150 mg/dLBorderline High: 150-199 mg/dLHigh: 200-499 mg/dLVery High: >500 mg/dL Absolute lymphocyte countOrd ered By: Lluviaclaudiomelissalynnette Morrisawaismilton on 07-02-2024 Lymphocytes Auto (Unsp spec) [#/Vol] 1.69 10*3/uL 0.83-4.51 [facility] Absolute neutrophil countOrd ered By: Joe Arturohans on 07-02-2024 Neutrophils (Bld) [#/Vol] 4.5 10*3/uL 2.0-7.7 [facility] Anion gap in Serum or Plasma Ordered By: Lluviaclaudiomelissalynnette Morrisawaismilton on 07-02-2024 Anion gap [Moles/Vol] 13 mmol/L - [facility] Automated lymphocyte count a s percentage of total leukocytesOrdered By: Lluviaclaudiomelissalynnette Morrisawaismilton on 07-02-2024 Lymphocytes/100 WBC Auto (Unsp spec) 23.8 % - [facility] BUN/creatinine ratioOrdered By: Lluviamontez Morrisawaismilton on 07-02-2024 Urea nitrogen/Creatinine [Mass ratio] 16.6 mg/mg 10-20 [facility] Basophil percentageOrdered B y: Joe Sanchez on 07-02-2024 Basophils/100 WBC (Bld) 1.0 % 0-1 [facility] Carbon dioxide, total [Moles /volume] in Central venous bloodOrdered By: Joe Sanchez on 07-02-2024 CO2 [Moles/Vol] 26.0 mmol/L 21.0-32.0 [facility] Chloride assayOrdered By: Lluvia Sanchez on 07-02-2024 Chloride [Moles/Vol] 99 mmol/L 98-108 [facility] [place] Eosinophil percentageOrdered By: Joe Sanchez on 07-02-2024 Eosinophils/100 WBC (Bld) 1.7 % 0-5 [facility] Erythrocyte distribution wid th ratioOrdered By: Joe Sanchez on 07-02-2024 Erythrocyte distribution width (RBC) [Ratio] 13.5 % 11.6-14.6 [facility] Erythrocyte distribution wid th standard deviationOrdered By: Joe Sanchez 07-02-2024 Erythrocyte distribution width (RBC) [Ratio] 47.8 fl High 35.1-43.9 [facility] Glomerular filtration rate ( GFR) estimation/1.73 sq m using serum, plasma, or whole bOrdered By: Joe Sanchez on 07-02-2024 GFR/1.73 sq M.predicted among non-blacks MDRD (S/P/Bld) [Vol rate/Area] 28 mL/min/{1.73_m2} Low >60 [facility] Comment on above: mL/min/1.73m2 CKD-EP I Creatinine Equation (2020) Hematocrit Auto (Bld) [Volum e fraction]Ordered By: Joe Sanchez on 07-02-2024 Hematocrit (Bld) [Volume fraction] 41.2 % 37-47 [facility] Hemoglobin measurementOrdere d By: Joe Sanchez 07-02-2024 Hemoglobin (Bld) [Mass/Vol] 13.8 g/dL 12.0-15.0 [facility] Immature granulocytes/100 WB C Auto (Bld)Ordered By: Joe Sanchez 07-02-2024 Immature granulocytes/100 WBC (Bld) 0.600 % 0.0-0.9 [facility] Comment on above: IG% - Immature Granu locytes (promyelocytes, myelocytes and metamyelocytes) > 1% indicates that a LEFT SHIFT is Present. MCV (mean corpuscular volume ) determinationOrdered By: Lluviamontez Sacnhez on 07-02-2024 MCV (RBC) [Entitic vol] 95.8 fL 81-99 [facility] Mean corpuscular hemoglobin (MCH) determinationOrdered By: claudoimelissalynnette Morrisawaismilton on 07-02-2024 MCH (RBC) [Entitic mass] 32.1 pg High 27.0-32.0 [facility] Mean corpuscular hemoglobin concentration (MCHC) determinationOrdered By: claudiowacolynnette Morrisawaismilton on 07-02-2024 MCHC (RBC) [Mass/Vol] 33.5 g/dL 32-36 [facility] Mean platelet volume determi nationOrdered By: Lluviaclaudiowacolynnette Morrisawaismilton on 07-02-2024 Platelet mean volume (Bld) [Entitic vol] 12.6 fL High 6.2-12.0 [facility] Monocyte percentageOrdered B y: [facility] Arturomilton on 07-02-2024 Monocytes/100 WBC (Bld) 9.8 % 0-10 [facility] Neutrophil percentageOrdered By: [facility] Morrismilton on 07-02-2024 Neutrophils/100 WBC (Bld) 63.1 % 47-70 [facility] Nucleated red blood cell per centageOrdered By: Lluviaclaudiowacolynnette Morrisawaismilton on 07-02-2024 Nucleated RBC/100 WBC (Bld) [Ratio] 0 % 0-5 [facility] Platelet countOrdered By: montez Arturomilton on 07-02-2024 Platelets (Bld) [#/Vol] 210 10*3/uL 150-450 [facility] Potassium measurement (mass/ volume)Ordered By: claudiowacolynnette Morrisawaismilton on 07-02-2024 Potassium (Unsp spec) [Mass/Vol] 4.4 mmol/L 3.3-5.1 [facility] Comment on above: Hemolysis present, R esults could be affected. RBC Auto (Bld) [#/Vol]Ordere d By: Joe Sanchez on 07-02-2024 RBC (Bld) [#/Vol] 4.30 10*6/uL 4.2-5.4 [facility] Serum creatinine measurement (mass/volume)Ordered By: Joe Sanchez on 07-02-2024 Creatinine [Mass/Vol] 1.78 mg/dL High 0.70-1.20 [facility] Serum glucose measurement (m ass/volume)Ordered By: Joe Sanchez on 07-02-2024 Glucose [Mass/Vol] 100 mg/dL High 70-99 [facility] Serum or plasma calcium leah urement (mass/volume)Ordered By: Joe Sanchez on 07-02-2024 Calcium [Mass/Vol] 9.5 mg/dL 7.6-11.0 [facility] Serum or plasma urea nitroge n measurement (mass/volume)Ordered By: Joe Sanchez on 07-02-2024 Urea nitrogen [Mass/Vol] 30 mg/dL High 4-19 [facility] Sodium levelOrdered By: Yudi kirbydrew Daniel on 07-02-2024 Sodium [Moles/Vol] 138 mmol/L 133-145 [facility] White blood cell (WBC) count Ordered By: Jeo Sanchez on 07-02-2024 WBC (Bld) [#/Vol] 7.1 10*3/uL 4.4-11.0 [facility] Vitamin D, 25-hydroxyOrdered By: Joe Sanchez on 06-18-2024 Vitamin D 25-Hydroxy 23.4 ng/mL Low 30-100 [facility] [place] Comment on above: Vitamin D StatusDefi ciency: <20 ng/mL (50nmol/L)Insufficiency: 20-30 ng/mL (50-75 nmol/L)Sufficiency: 30-100 ng/mL (75-250 nmol/L)Toxicity: >100 ng/mL (>250 nmol/L) Absolute lymphocyte countOrd ered By: Joe Sanchez on 06-04-2024 Lymphocytes Auto (Unsp spec) [#/Vol] 1.61 10*3/uL 0.83-4.51 [facility] Absolute neutrophil countOrd ered By: montez Sanchez on 06-04-2024 Neutrophils (Bld) [#/Vol] 5.3 10*3/uL 2.0-7.7 [facility] Anion gap in Serum or Plasma Ordered By: montez Sanchez on 06-04-2024 Anion gap [Moles/Vol] 13 mmol/L 5-15 [facility] Automated lymphocyte count a s percentage of total leukocytesOrdered By: Joe Sanchez on 06-04-2024 Lymphocytes/100 WBC Auto (Unsp spec) 19.9 % 19-41 [facility] BUN/creatinine ratioOrdered By: [facility] Sanchez on 06-04-2024 Urea nitrogen/Creatinine [Mass ratio] 16.0 mg/mg 10-20 [facility] Basophil percentageOrdered B y: Joe Sanchez on 06-04-2024 Basophils/100 WBC (Bld) 1.1 % High 0-1 [facility] Carbon dioxide, total [Moles /volume] in Central venous bloodOrdered By: [facility] Sanchez on 06-04-2024 CO2 [Moles/Vol] 26.2 mmol/L 21.0-32.0 [facility] Chloride assayOrdered By: Lluvia Sanchez on 06-04-2024 Chloride [Moles/Vol] 99 mmol/L 98-108 [facility] [place] Eosinophil percentageOrdered By: montez Sanchez on 06-04-2024 Eosinophils/100 WBC (Bld) 2.2 % 0-5 [facility] Erythrocyte distribution wid th (RBC) [Ratio]Ordered By: montez Sanchez on 06-04-2024 Erythrocyte distribution width (RBC) [Entitic vol] 46.8 fL High 35.1-43.9 [facility] Erythrocyte distribution wid th ratioOrdered By: [facility] Sanchez on 06-04-2024 Erythrocyte distribution width (RBC) [Ratio] 13.2 % 11.6-14.6 [facility] Erythrocyte distribution wid th standard deviationOrdered By: claudiowacolynnette Sanchez on 06-04-2024 Erythrocyte distribution width (RBC) [Ratio] 46.8 fl High 35.1-43.9 [facility] GFR/1.73 sq M.predicted venkata g non-blacks MDRD (S/P/Bld) [Vol rate/Area]Ordered By: Joe Sanchez on 06-04-2024 Estimated GFR (MDRD) Non-Af Amer 29 Low >60 [facility] Comment on above: mL/min/1.73m2 CKD-EP I Creatinine Equation (2020) Glomerular filtration rate ( GFR) estimation/1.73 sq m using serum, plasma, or whole bOrdered By: Joe Sanchez on 06-04-2024 GFR/1.73 sq M.predicted among non-blacks MDRD (S/P/Bld) [Vol rate/Area] 29 mL/min/{1.73_m2} Low >60 [facility] Comment on above: mL/min/1.73m2 CKD-EP I Creatinine Equation (2020) Hematocrit Auto (Bld) [Volum e fraction]Ordered By: Joe Sanchez on 06-04-2024 Hematocrit (Bld) [Volume fraction] 43.1 % 37-47 [facility] Hemoglobin measurementOrdere d By: Joe Sanchez on 06-04-2024 Hemoglobin (Bld) [Mass/Vol] 14.2 g/dL 12.0-15.0 [facility] Immature granulocytes/100 WB C Auto (Bld)Ordered By: oJe Sanchez on 06-04-2024 Immature granulocytes/100 WBC (Bld) 0.600 % 0.0-0.9 [facility] Comment on above: IG% - Immature Granu locytes (promyelocytes, myelocytes and metamyelocytes) > 1% indicates that a LEFT SHIFT is Present. Lymphocytes Auto (Unsp spec) [#/Vol]Ordered By: Joe Sanchez on 06-04-2024 Lymphocytes (Bld) [#/Vol] 1.61 10*3/uL 0.83-4.51 [facility] Lymphocytes/100 WBC Auto (Un sp spec)Ordered By: Joe Sanchez on 06-04-2024 Lymphocytes/100 WBC (Bld) 19.9 % 19-41 [facility] MCV (mean corpuscular volume ) determinationOrdered By: Joe Sanchez on 06-04-2024 MCV (RBC) [Entitic vol] 96.9 fL 81-99 [facility] Mean corpuscular hemoglobin (MCH) determinationOrdered By: Joe Sanchez on 06-04-2024 MCH (RBC) [Entitic mass] 31.9 pg 27.0-32.0 [facility] Mean corpuscular hemoglobin concentration (MCHC) determinationOrdered By: Joe Sanchez on 06-04-2024 MCHC (RBC) [Mass/Vol] 32.9 g/dL 32-36 [facility] Mean platelet volume determi nationOrdered By: Joe Sanchez on 06-04-2024 Platelet mean volume (Bld) [Entitic vol] 12.3 fL High 6.2-12.0 [facility] Monocyte percentageOrdered B y: Joe Sanchez on 06-04-2024 Monocytes/100 WBC (Bld) 10.4 % High 0-10 [facility] Neutrophil percentageOrdered By: Joe Sanchez on 06-04-2024 Neutrophils/100 WBC (Bld) 65.8 % 47-70 [facility] Nucleated red blood cell per centageOrdered By: Joe Sanchez on 06-04-2024 Nucleated RBC/100 WBC (Bld) [Ratio] 0 % 0-5 [facility] Platelet countOrdered By: Lluvia Sanchez on 06-04-2024 Platelets (Bld) [#/Vol] 216 10*3/uL 150-450 [facility] Potassium (Unsp spec) [Mass/ Vol]Ordered By: Joe Sanchez on 06-04-2024 Potassium [Moles/Vol] 4.5 mmol/L 3.3-5.1 [facility] Potassium measurement (mass/ volume)Ordered By: Joe Sanchez on 06-04-2024 Potassium (Unsp spec) [Mass/Vol] 4.5 mmol/L 3.3-5.1 [facility] RBC Auto (Bld) [#/Vol]Ordere d By: Joe Sanchez on 06-04-2024 RBC (Bld) [#/Vol] 4.45 10*6/uL 4.2-5.4 [facility] Serum creatinine measurement (mass/volume)Ordered By: Lluviaclaudiokayleigh Chaumilton on 06-04-2024 Creatinine [Mass/Vol] 1.74 mg/dL High 0.70-1.20 [facility] Serum glucose measurement (m ass/volume)Ordered By: Lluviamontez Morrisawaismilton on 06-04-2024 Glucose [Mass/Vol] 91 mg/dL 70-99 [facility] Serum or plasma calcium leah urement (mass/volume)Ordered By: Lluviaclaudiomelissalynnette Morrisawaismilton on 06-04-2024 Calcium [Mass/Vol] 9.5 mg/dL 7.6-11.0 [facility] Serum or plasma urea nitroge n measurement (mass/volume)Ordered By: Joe Morrisawaismilton on 06-04-2024 Urea nitrogen [Mass/Vol] 28 mg/dL High 4-19 [facility] Sodium levelOrdered By: Yudi Sanchez on 06-04-2024 Sodium [Moles/Vol] 138 mmol/L 133-145 [facility] White blood cell (WBC) count Ordered By: Lluviaclaudiokayleigh Arturoawaismilton on 06-04-2024 WBC (Bld) [#/Vol] 8.1 10*3/uL 4.4-11.0 [facility] Absolute lymphocyte countOrd ered By: Yudimelissalynnette Morrisawaismilton on 05-07-2024 Lymphocytes Auto (Unsp spec) [#/Vol] 1.40 10*3/uL 0.83-4.51 [facility] Absolute neutrophil countOrd ered By: Joaquinlynnette Morrisawaismilton on 05-07-2024 Neutrophils (Bld) [#/Vol] 5.1 10*3/uL 2.0-7.7 [facility] Automated lymphocyte count a s percentage of total leukocytesOrdered By: Lluviamontez Morrisawaismilton on 05-07-2024 Lymphocytes/100 WBC Auto (Unsp spec) 19.1 % 19-41 [facility] Basophil percentageOrdered B y: Joe Sanchez on 05-07-2024 Basophils/100 WBC (Bld) 1.0 % 0-1 [facility] Blood urea nitrogen (BUN)/cr eatinine ratioOrdered By: Joe Sanchez on 05-07-2024 Urea nitrogen/Creatinine [Mass ratio] 13.9 mg/mg 10-20 [facility] Carbon dioxide measurementOr dered By: Joe Sanchez on 05-07-2024 CO2 [Moles/Vol] 28.0 mmol/L 21.0-32.0 [facility] Chloride measurementOrdered By: Joe Sanchez on 05-07-2024 Chloride [Moles/Vol] 101 mmol/L 98-107 [facility] [place] Eosinophil percentageOrdered By: Joe Sanchez on 05-07-2024 Eosinophils/100 WBC (Bld) 2.7 % 0-5 [facility] Erythrocyte distribution wid th (RBC) [Ratio]Ordered By: Joe Sanchez on 05-07-2024 Erythrocyte distribution width (RBC) [Entitic vol] 48.3 fL High 35.1-43.9 [facility] Erythrocyte distribution wid th ratioOrdered By: Joe Sanchez on 05-07-2024 Erythrocyte distribution width (RBC) [Ratio] 13.5 % 11.6-14.6 [facility] Erythrocyte distribution wid th standard deviationOrdered By: claudiowacolynnette Sanchez on 05-07-2024 Erythrocyte distribution width (RBC) [Ratio] 48.3 fl High 35.1-43.9 [facility] Estimated glomerular filtrat ion rate (GFR) AmericanOrdered By: Joe Sanchez on 05-07-2024 Estimated GFR (MDRD) Amer 29 mL/min Low >60 [facility] Comment on above: GFR Calc Glomerular filtration rate ( GFR) estimationOrdered By: Joe Sanchez on 05-07-2024 Estimated GFR (MDRD) Non-Af Amer 24 mL/min Low >60 [facility] Comment on above: Non- GFR Calc GFR/1.73 sq M.predicted among non-blacks MDRD (S/P/Bld) [Vol rate/Area] 24 mL/min/{1.73_m2} Low >60 [facility] Comment on above: Non- GFR Calc Glucose measurementOrdered B y: Joe Arturohans on 05-07-2024 Glucose [Mass/Vol] 122 mg/dL High 74-106 [facility] Comment on above: Fasting Glucose resu lt from 100 to 125 mg/dL suggests IMPAIRED HOMEOSTASIS per A.D.A. criteria. Hematocrit Auto (Bld) [Volum e fraction]Ordered By: Joe Sanchez on 05-07-2024 Hematocrit (Bld) [Volume fraction] 41.3 % 37-47 [facility] Hemoglobin measurementOrdere d By: Joe Sanchez on 05-07-2024 Hemoglobin (Bld) [Mass/Vol] 13.4 g/dL 12.0-15.0 [facility] Immature granulocytes/100 WB C Auto (Bld)Ordered By: Joe Sanchez on 05-07-2024 Immature granulocytes/100 WBC (Bld) 0.700 % 0.0-0.9 [facility] Comment on above: IG% - Immature Granu locytes (promyelocytes, myelocytes and metamyelocytes) > 1% indicates that a LEFT SHIFT is Present. Lymphocytes Auto (Unsp spec) [#/Vol]Ordered By: Joe Sanchez on 05-07-2024 Lymphocytes (Bld) [#/Vol] 1.40 10*3/uL 0.83-4.51 [facility] Lymphocytes/100 WBC Auto (Un sp spec)Ordered By: Joe Sanchez on 05-07-2024 Lymphocytes/100 WBC (Bld) 19.1 % 19-41 [facility] MCV (mean corpuscular volume ) determinationOrdered By: Joe Sanchez on 05-07-2024 MCV (RBC) [Entitic vol] 98.6 fL 81-99 [facility] Mean corpuscular hemoglobin (MCH) determinationOrdered By: Joe Sanchez on 05-07-2024 MCH (RBC) [Entitic mass] 32.0 pg 27.0-32.0 [facility] Mean corpuscular hemoglobin concentration (MCHC) determinationOrdered By: Joe Sanchez on 05-07-2024 MCHC (RBC) [Mass/Vol] 32.4 g/dL 32-36 [facility] Mean platelet volume determi nationOrdered By: Joe Sanchez on 05-07-2024 Platelet mean volume (Bld) [Entitic vol] 12.6 fL High 6.2-12.0 [facility] Monocyte percentageOrdered B y: Joe aSnchez on 05-07-2024 Monocytes/100 WBC (Bld) 7.4 % 0-10 [facility] Neutrophil percentageOrdered By: Joe Sanchez on 05-07-2024 Neutrophils/100 WBC (Bld) 69.1 % 47-70 [facility] Nucleated red blood cell per centageOrdered By: Joe Sanchez on 05-07-2024 Nucleated RBC/100 WBC (Bld) [Ratio] 0 % 0-5 [facility] Platelet countOrdered By: Lluvia Sanchez on 05-07-2024 Platelets (Bld) [#/Vol] 194 10*3/uL 150-450 [facility] Potassium measurementOrdered By: Joe Sanchez on 05-07-2024 Potassium [Moles/Vol] 3.6 mmol/L 3.5-5.1 [facility] RBC Auto (Bld) [#/Vol]Ordere d By: Joe Sanchez on 05-07-2024 RBC (Bld) [#/Vol] 4.19 10*6/uL Low 4.2-5.4 [facility] Serum anion gap measurementO rdered By: Joe Sanchez on 05-07-2024 Anion gap [Moles/Vol] 10 mmol/L 5-15 [facility] Serum or plasma calcium leah urement (mass/volume)Ordered By: Joe Sanchez on 05-07-2024 Calcium [Mass/Vol] 9.3 mg/dL 8.5-10.1 [facility] Serum or plasma creatinine m easurement (mass/volume)Ordered By: Joe Sanchez on 05-07-2024 Creatinine [Mass/Vol] 2.08 mg/dL High 0.55-1.02 [facility] Comment on above: The validity of the calculated GFR & GFRAA in patients over 70 years has not been determined. Clinical correlation is essential. Serum or plasma urea nitroge n measurement (mass/volume)Ordered By: Joe Sanchez on 05-07-2024 Urea nitrogen [Mass/Vol] 29 mg/dL High 7-18 [facility] Sodium levelOrdered By: Yudi Sanchez on 05-07-2024 Sodium [Moles/Vol] 139 mmol/L 136-145 [facility] White blood cell (WBC) count Ordered By: Joe Sanchez on 05-07-2024 WBC (Bld) [#/Vol] 7.3 10*3/uL 4.4-11.0 [facility] [id number] DOrdered By: Milton Sanchez on 04-22-2024 Vitamin D 25-Hydroxy 69.4 ng/mL [facility] [place] Comment on above: Vitamin D 25(OH) Sta tus Range Deficiency <20 ng/mL (50nmol/L) Insufficiency 20 - 30 ng/mL (50 - 75 nmol/L) Sufficiency 30 - 100 ng/mL (75 - 250 nmol/L) Toxicity >100 ng/mL (>250 nmol/L) Bilirubin directOrdered By: Joe Sanchez on 04-22-2024 Bilirubin.direct [Mass/Vol] 0.29 mg/dL 0.00-0.30 [facility] Bilirubin, totalOrdered By: Joe Sanchez on 04-22-2024 Bilirubin [Mass/Vol] 0.90 mg/dL 0.20-1.00 [facility] [place] Comment on above: For patients on eltr ombopag therapy, use of Dimension [place] TBIL is not recommended. Hemoglobin A1c percentageOrd ered By: Joe Sanchez on 04-22-2024 HbA1c (Bld) [Mass fraction] 5.2 % 3.8-5.6 [facility] Comment on above: Normal < 5.7 % Predi abetic 5.7 - 6.4 % Diabetic >or= 6.5 % Please note range changes. High density lipoprotein (HD L) measurementOrdered By: Joe Sanchez on 04-22-2024 Cholesterol in HDL [Mass/Vol] 44 mg/dL >40 [facility] Comment on above: The drugs N-Acetylcy steine and Metamizole may falsely depress this assay. Reference Range HDL <40 mg/dL Low HDL Cholesterol HDL >or= 60 mg/dL High HDL Cholesterol Laboratory - Chemistry and C hemistry - challengeOrdered By: Joe Sanchez on 04-22-2024 AST [Catalytic activity/Vol] 15 U/L 15-37 [facility] Low density lipoprotein (LDL ) cholesterol measurementOrdered By: Joe Sanchez on 04-22-2024 Cholesterol in LDL [Mass/Vol] 41 mg/dL 0-130 [facility] Serum globulin measurementOr dered By: Jeo Sanchez on 04-22-2024 Globulin (S) [Mass/Vol] 3.7 g/dL 2.2-4.2 [facility] Serum or plasma alanine kilpatrick otransferase (ALT) measurementOrdered By: Joe Sanchez on 04-22-2024 ALT [Catalytic activity/Vol] 14 U/L 13-56 [facility] Serum or plasma albumin leah urement (mass/volume)Ordered By: Joe Sanchez on 04-22-2024 Albumin [Mass/Vol] 2.7 g/dL Low 3.2-5.0 [facility] Serum or plasma alkaline kirti sphatase measurementOrdered By: Joe Sanchez on 04-22-2024 ALP [Catalytic activity/Vol] 61 U/L 45-117 [facility] Serum or plasma cholesterol measurement (mass/volume)Ordered By: Joe Sanchez on 04-22-2024 Cholesterol [Mass/Vol] 106 mg/dL <200 [facility] Comment on above: <200 mg/dL Desirable 200-240 mg/dL Borderline >240 mg/dL High Risk Total proteinOrdered By: Constantin Sanchez on 04-22-2024 Protein [Mass/Vol] 6.4 g/dL 6.4-8.2 [facility] Triglycerides measurementOrd ered By: Joe Sanchez on 04-22-2024 Triglyceride [Mass/Vol] 107 mg/dL <199 [facility] Comment on above: The drugs N-Acetylcy steine and Metamizole may falsely depress this assay.Serum Triglycerides Reference Interval Normal <150 mg/dL Borderline high 150 - 199 mg/dL High 200 - 499 mg/dL Very High > or = 500 mg/dL Very low density lipoprotein (VLDL) cholesterol measurementOrdered By: Joe Sanchez on 04-22-2024 Very low density lipoprotein (VLDL) cholesterol measurement 21 mg/dL 5-40 [facility] VLDL Cholesterol 21 mg/dL 5-40 [facility] Absolute lymphocyte countOrd ered By: Yudimelissalynnette Morrisawaismilton on 04-09-2024 Lymphocytes Auto (Unsp spec) [#/Vol] 1.63 10*3/uL 0.83-4.51 [facility] Absolute neutrophil countOrd ered By: Joe Sanchez on 04-09-2024 Neutrophils (Bld) [#/Vol] 5.0 10*3/uL 2.0-7.7 [facility] Automated lymphocyte count a s percentage of total leukocytesOrdered By: Joe Sanchez on 04-09-2024 Lymphocytes/100 WBC Auto (Unsp spec) 20.7 % 19-41 [facility] Basophil percentageOrdered B y: Joe Morrisawaismilton on 04-09-2024 Basophils/100 WBC (Bld) 1.3 % High 0-1 [facility] Blood urea nitrogen (BUN)/cr eatinine ratioOrdered By: Joe Sanchez on 04-09-2024 Urea nitrogen/Creatinine [Mass ratio] 11.4 mg/mg 10-20 [facility] Carbon dioxide measurementOr dered By: Joe Morrisawaismilton on 04-09-2024 CO2 [Moles/Vol] 30.0 mmol/L 21.0-32.0 [facility] Chloride measurementOrdered By: Joe Sanchez on 04-09-2024 Chloride [Moles/Vol] 100 mmol/L 98-107 [facility] [place] Eosinophil percentageOrdered By: Joe Sanchez on 04-09-2024 Eosinophils/100 WBC (Bld) 2.4 % 0-5 [facility] Erythrocyte distribution wid th (RBC) [Ratio]Ordered By: Joe Sanchez on 04-09-2024 Erythrocyte distribution width (RBC) [Entitic vol] 49.9 fL High 35.1-43.9 [facility] Erythrocyte distribution wid th ratioOrdered By: montez Sanchez on 04-09-2024 Erythrocyte distribution width (RBC) [Ratio] 13.6 % 11.6-14.6 [facility] Erythrocyte distribution wid th standard deviationOrdered By: Joe Sanchez on 04-09-2024 Erythrocyte distribution width (RBC) [Ratio] 49.9 fl High 35.1-43.9 [facility] Estimated glomerular filtrat ion rate (GFR) AmericanOrdered By: Joe Sanchez on 04-09-2024 Estimated GFR (MDRD) Amer 36 mL/min Low >60 [facility] Comment on above: GFR Calc Glomerular filtration rate ( GFR) estimationOrdered By: Joe Sanchez on 04-09-2024 Estimated GFR (MDRD) Non-Af Amer 30 mL/min Low >60 [facility] Comment on above: Non- GFR Calc GFR/1.73 sq M.predicted among non-blacks MDRD (S/P/Bld) [Vol rate/Area] 30 mL/min/{1.73_m2} Low >60 [facility] Comment on above: Non- GFR Calc Glucose measurementOrdered B y: Joe Sanchez on 04-09-2024 Glucose [Mass/Vol] 86 mg/dL 74-106 [facility] Hematocrit Auto (Bld) [Volum e fraction]Ordered By: Joe Sanchez on 04-09-2024 Hematocrit (Bld) [Volume fraction] 40.5 % 37-47 [facility] Hemoglobin measurementOrdere d By: Joe Sanchez on 04-09-2024 Hemoglobin (Bld) [Mass/Vol] 13.0 g/dL 12.0-15.0 [facility] Immature granulocytes/100 WB C Auto (Bld)Ordered By: Joe Sanchez on 04-09-2024 Immature granulocytes/100 WBC (Bld) 0.600 % 0.0-0.9 [facility] Comment on above: IG% - Immature Granu locytes (promyelocytes, myelocytes and metamyelocytes) > 1% indicates that a LEFT SHIFT is Present. Lymphocytes Auto (Unsp spec) [#/Vol]Ordered By: Joe Sanchez on 04-09-2024 Lymphocytes (Bld) [#/Vol] 1.63 10*3/uL 0.83-4.51 [facility] Lymphocytes/100 WBC Auto (Un sp spec)Ordered By: Joe Sanchez on 04-09-2024 Lymphocytes/100 WBC (Bld) 20.7 % 19-41 [facility] MCV (mean corpuscular volume ) determinationOrdered By: Joe Sanchez on 04-09-2024 MCV (RBC) [Entitic vol] 98.5 fL 81-99 [facility] Mean corpuscular hemoglobin (MCH) determinationOrdered By: Joe Sanchez on 04-09-2024 MCH (RBC) [Entitic mass] 31.6 pg 27.0-32.0 [facility] Mean corpuscular hemoglobin concentration (MCHC) determinationOrdered By: montez Sanchez on 04-09-2024 MCHC (RBC) [Mass/Vol] 32.1 g/dL 32-36 [facility] Mean platelet volume determi nationOrdered By: Joe Sanchez on 04-09-2024 Platelet mean volume (Bld) [Entitic vol] 12.2 fL High 6.2-12.0 [facility] Monocyte percentageOrdered B y: Joe Sanchez on 04-09-2024 Monocytes/100 WBC (Bld) 10.9 % High 0-10 [facility] Neutrophil percentageOrdered By: Joe Sanchez on 04-09-2024 Neutrophils/100 WBC (Bld) 64.1 % 47-70 [facility] Nucleated red blood cell per centageOrdered By: Joe Sanchez on 04-09-2024 Nucleated RBC/100 WBC (Bld) [Ratio] 0 % 0-5 [facility] Platelet countOrdered By: Lluvia Sanchez on 04-09-2024 Platelets (Bld) [#/Vol] 215 10*3/uL 150-450 [facility] Potassium measurementOrdered By: Joe Morrisawaismilton on 04-09-2024 Potassium [Moles/Vol] 4.2 mmol/L 3.5-5.1 [facility] RBC Auto (Bld) [#/Vol]Ordere d By: Yudimelissalynnette Morrishans on 04-09-2024 RBC (Bld) [#/Vol] 4.11 10*6/uL Low 4.2-5.4 [facility] Serum anion gap measurementO rdered By: Yudimelissalynnette Morrisawaismilton on 04-09-2024 Anion gap [Moles/Vol] 6 mmol/L 5-15 [facility] Serum or plasma calcium leah urement (mass/volume)Ordered By: Joe Morrisawaismilton on 04-09-2024 Calcium [Mass/Vol] 9.8 mg/dL 8.5-10.1 [facility] Serum or plasma creatinine m easurement (mass/volume)Ordered By: Joe Morrisawaismilton on 04-09-2024 Creatinine [Mass/Vol] 1.75 mg/dL High 0.55-1.02 [facility] Comment on above: The validity of the calculated GFR & GFRAA in patients over 70 years has not been determined. Clinical correlation is essential. Serum or plasma urea nitroge n measurement (mass/volume)Ordered By: Joe Sanchez on 04-09-2024 Urea nitrogen [Mass/Vol] 20 mg/dL High 7-18 [facility] Sodium levelOrdered By: Yudi kayleigh Arturoawaismilton on 04-09-2024 Sodium [Moles/Vol] 137 mmol/L 136-145 [facility] White blood cell (WBC) count Ordered By: Yudimelissalynnette Morrisawaismilton on 04-09-2024 WBC (Bld) [#/Vol] 7.9 10*3/uL 4.4-11.0 [facility] 36on 04-03-2024 36 Records received and scanned under [facility] 36on 04-01-2024 36 I called Osmany and she requested me to fax med recs release to [phone] I faxed this morning. Confirmed 04/02 at 5:45p 36on 03-15-2024 36 Chart reviewed, patient completed 30 day follow-up in [place]. Cancelled echo order 36 Patient prefers care in [facility] 36 We have been unable to reach your patient to schedule their testing. Test Name: echo 1st Attempt: 03/14/2024 left voicemail 2nd Attempt: 03/15/2024 left voicemail Bilirubin Test strip Ql (U)O rdered By: Joe Sanchez on 03-15-2024 Bilirubin Ql (U) Negative Negative [facility] Glucose Ql (U)Ordered By: Lluvia Sanchez on 03-15-2024 Glucose (U) [Mass/Vol] 250 mg/dL High Normal [facility] Ketones Test strip Ql (U)Ord ered By: Joe Sanchez on 03-15-2024 Ketones Ql (U) Negative Negative [facility] Nitrite Test strip Ql (U)Ord ered By: Joe Sanchez on 03-15-2024 Nitrite Ql (U) Negative Negative [facility] Protein Test strip Ql (U)Ord ered By: Joe Sanchez on 03-15-2024 Protein Ql (U) 100 mg/dl High Negative [facility] Urine blood detectionOrdered By: Joe Sanchez on 03-15-2024 Urine Occult Blood 250 /ul High Negative [facility] Urine clarityOrdered By: Constantin Sanchez on 03-15-2024 Clarity (U) Cloudy Clear [facility] Urine color determinationOrd ered By: Joe Sanchez on 03-15-2024 Color (U) Straw Yellow [facility] Urine cultureOrdered By: Constantin Sanchez on 03-15-2024 Bacteria identified Cx Nom (U) Enterobacter cloacae complex Abnormal [facility] Urine leukocyte esterase det ection by dipstickOrdered By: Joe Sanchez on 03-15-2024 Leukocyte esterase Test strip Ql (U) 500 /ul High Negative [facility] Urine pHOrdered By: Miles Sanchez on 03-15-2024 pH (U) 6.0 [pH] 5.0 - 8.0 [facility] Urine specific gravity measu rementOrdered By: Lluviaclaudiokayleigh Chaumilton on 03-15-2024 Specific gravity (U) [Rel density] 1.015 1.002-1.030 [facility] Urobilinogen Ql (U)Ordered B y: Joe Chaumilton on 03-15-2024 Urine Urobilinogen Normal mg/dl Normal [facility] [place] Absolute neutrophil countOrd ered By: Lluviamontez Morrisawaismilton on 03-08-2024 Neutrophils (Bld) [#/Vol] 5.5 10*3/uL 2.0-7.7 [facility] Basophil percentageOrdered B y: Joaquinlynnette Morrisawaismilton on 03-08-2024 Basophils/100 WBC (Bld) 1.3 % High 0-1 [facility] Blood urea nitrogen (BUN)/cr eatinine ratioOrdered By: Joe Morrisawaismilton on 03-08-2024 Urea nitrogen/Creatinine [Mass ratio] 13.4 mg/mg 10-20 [facility] Carbon dioxide measurementOr dered By: Joaquinlynnette Arturoawaismilton on 03-08-2024 CO2 [Moles/Vol] 27.0 mmol/L 21.0-32.0 [facility] Chloride measurementOrdered By: Joe Sanchez on 03-08-2024 Chloride [Moles/Vol] 98 mmol/L 98-107 [facility] [place] Eosinophil percentageOrdered By: Yudionglynnette Kandie on 03-08-2024 Eosinophils/100 WBC (Bld) 3.6 % 0-5 [facility] Erythrocyte distribution wid th (RBC) [Ratio]Ordered By: Joe Morrisawaise on 03-08-2024 Erythrocyte distribution width (RBC) [Entitic vol] 50.5 fL High 35.1-43.9 [facility] Erythrocyte distribution wid th ratioOrdered By: Joe Morrisawaise on 03-08-2024 Erythrocyte distribution width (RBC) [Ratio] 14.1 % 11.6-14.6 [facility] Estimated glomerular filtrat ion rate (GFR) AmericanOrdered By: Joe Sanchez on 03-08-2024 Estimated GFR (MDRD) Amer 35 mL/min Low >60 [facility] Comment on above: GFR Calc Glomerular filtration rate ( GFR) estimationOrdered By: Joe Sanchez on 03-08-2024 Estimated GFR (MDRD) Non-Af Amer 29 mL/min Low >60 [facility] Comment on above: Non- GFR Calc Glucose measurementOrdered B y: Joe Sanchez on 03-08-2024 Glucose [Mass/Vol] 82 mg/dL 74-106 [facility] Hematocrit Auto (Bld) [Volum e fraction]Ordered By: Joe Sanchez on 03-08-2024 Hematocrit (Bld) [Volume fraction] 39.8 % 37-47 [facility] Hemoglobin measurementOrdere d By: Joe Sanchez on 03-08-2024 Hemoglobin (Bld) [Mass/Vol] 13.1 g/dL 12.0-15.0 [facility] Immature granulocytes/100 WB C Auto (Bld)Ordered By: montez Sanchez on 03-08-2024 Immature granulocytes/100 WBC (Bld) 1.300 % High 0.0-0.9 [facility] Comment on above: IG% - Immature Granu locytes (promyelocytes, myelocytes and metamyelocytes) > 1% indicates that a LEFT SHIFT is Present. Lymphocytes Auto (Unsp spec) [#/Vol]Ordered By: Joe Sanchez on 03-08-2024 Lymphocytes (Bld) [#/Vol] 1.69 10*3/uL 0.83-4.51 [facility] Lymphocytes/100 WBC Auto (Un sp spec)Ordered By: Joe Sanchez on 03-08-2024 Lymphocytes/100 WBC (Bld) 19.6 % 19-41 [facility] MCV (mean corpuscular volume ) determinationOrdered By: Joe Sanchez on 03-08-2024 MCV (RBC) [Entitic vol] 97.3 fL 81-99 [facility] Mean corpuscular hemoglobin (MCH) determinationOrdered By: Joe Sanchez on 03-08-2024 MCH (RBC) [Entitic mass] 32.0 pg 27.0-32.0 [facility] Mean corpuscular hemoglobin concentration (MCHC) determinationOrdered By: Joe Sanchez on 03-08-2024 MCHC (RBC) [Mass/Vol] 32.9 g/dL 32-36 [facility] Mean platelet volume determi nationOrdered By: Joe Sanchez on 03-08-2024 Platelet mean volume (Bld) [Entitic vol] 11.9 fL 6.2-12.0 [facility] Monocyte percentageOrdered B y: Joe Sanchez on 03-08-2024 Monocytes/100 WBC (Bld) 10.9 % High 0-10 [facility] Neutrophil percentageOrdered By: Joe Sanchez on 03-08-2024 Neutrophils/100 WBC (Bld) 63.3 % 47-70 [facility] Nucleated red blood cell per centageOrdered By: Joe Sanchez on 03-08-2024 Nucleated RBC/100 WBC (Bld) [Ratio] 0 % 0-5 [facility] Platelet countOrdered By: Lluvia Sanchez on 03-08-2024 Platelets (Bld) [#/Vol] 232 10*3/uL 150-450 [facility] Potassium measurementOrdered By: Joe Sanchez on 03-08-2024 Potassium [Moles/Vol] 4.1 mmol/L 3.5-5.1 [facility] RBC Auto (Bld) [#/Vol]Ordere d By: Joaquinbe Daniel on 03-08-2024 RBC (Bld) [#/Vol] 4.09 10*6/uL Low 4.2-5.4 [facility] Serum anion gap measurementO rdered By: Joe Sanchez on 03-08-2024 Anion gap [Moles/Vol] 9 mmol/L 5-15 [facility] Serum or plasma calcium leah urement (mass/volume)Ordered By: Joe Sanchez on 03-08-2024 Calcium [Mass/Vol] 9.6 mg/dL 8.5-10.1 [facility] Serum or plasma creatinine m easurement (mass/volume)Ordered By: Joe Sanchez on 03-08-2024 Creatinine [Mass/Vol] 1.79 mg/dL High 0.55-1.02 [facility] Comment on above: The validity of the calculated GFR & GFRAA in patients over 70 years has not been determined. Clinical correlation is essential. Serum or plasma urea nitroge n measurement (mass/volume)Ordered By: Joe Sanchez on 03-08-2024 Urea nitrogen [Mass/Vol] 24 mg/dL High 7-18 [facility] Sodium levelOrdered By: Yudi kayleigh Daniel on 03-08-2024 Sodium [Moles/Vol] 134 mmol/L Low 136-145 [facility] White blood cell (WBC) count Ordered By: Joe Sanchez on 03-08-2024 WBC (Bld) [#/Vol] 8.6 10*3/uL 4.4-11.0 [facility] Absolute neutrophil countOrd ered By: Joe Sanchez on 03-01-2024 Neutrophils (Bld) [#/Vol] 5.1 10*3/uL 2.0-7.7 [facility] Basophil percentageOrdered B y: Joe Sanchez on 03-01-2024 Basophils/100 WBC (Bld) 1.6 % High 0-1 [facility] Blood urea nitrogen (BUN)/cr eatinine ratioOrdered By: Joe Sanchez on 03-01-2024 Urea nitrogen/Creatinine [Mass ratio] 15.9 mg/mg 10- [facility] Carbon dioxide measurementOr dered By: Joe Sanchez on 03-01-2024 CO2 [Moles/Vol] 26.0 mmol/L 21.0-32.0 [facility] Chloride measurementOrdered By: Joe Sanchez on 03-01-2024 Chloride [Moles/Vol] 101 mmol/L 98-107 [facility] [place] Eosinophil percentageOrdered By: Joe Sanchez on 03-01-2024 Eosinophils/100 WBC (Bld) 3.2 % 0-5 [facility] Erythrocyte distribution wid th (RBC) [Ratio]Ordered By: Joe Sanchez on 03-01-2024 Erythrocyte distribution width (RBC) [Entitic vol] 49.1 fL High 35.1-43.9 [facility] Erythrocyte distribution wid th ratioOrdered By: Joe Sanchez on 03-01-2024 Erythrocyte distribution width (RBC) [Ratio] 14.0 % 11.6-14.6 [facility] Estimated glomerular filtrat ion rate (GFR) AmericanOrdered By: montez Sanchez on 03-01-2024 Estimated GFR (MDRD) Amer 30 mL/min Low >60 [facility] Comment on above: GFR Calc Glomerular filtration rate ( GFR) estimationOrdered By: Joe Sanchez on 03-01-2024 Estimated GFR (MDRD) Non-Af Amer 25 mL/min Low >60 [facility] Comment on above: Non- GFR Calc Glucose measurementOrdered B y: Lluviaclaudiomelissalynnette Sanchez on 03-01-2024 Glucose [Mass/Vol] 101 mg/dL 74-106 [facility] Comment on above: Fasting Glucose resu lt from 100 to 125 mg/dL suggests IMPAIRED HOMEOSTASIS per A.D.A. criteria. Hematocrit Auto (Bld) [Volum e fraction]Ordered By: Joe Sanchez on 03-01-2024 Hematocrit (Bld) [Volume fraction] 37.7 % 37-47 [facility] Hemoglobin measurementOrdere d By: Joe Sanchez on 03-01-2024 Hemoglobin (Bld) [Mass/Vol] 12.6 g/dL 12.0-15.0 [facility] Immature granulocytes/100 WB C Auto (Bld)Ordered By: Joe Sanchez on 03-01-2024 Immature granulocytes/100 WBC (Bld) 1.200 % High 0.0-0.9 [facility] Comment on above: IG% - Immature Granu locytes (promyelocytes, myelocytes and metamyelocytes) > 1% indicates that a LEFT SHIFT is Present. Lymphocytes Auto (Unsp spec) [#/Vol]Ordered By: Joe Chaumilton on 03-01-2024 Lymphocytes (Bld) [#/Vol] 1.56 10*3/uL 0.83-4.51 [facility] Lymphocytes/100 WBC Auto (Un sp spec)Ordered By: Joe Chaue on 03-01-2024 Lymphocytes/100 WBC (Bld) 19.0 % 19-41 [facility] MCV (mean corpuscular volume ) determinationOrdered By: Joe Arturoawaismilton on 03-01-2024 MCV (RBC) [Entitic vol] 96.2 fL 81-99 [facility] Mean corpuscular hemoglobin (MCH) determinationOrdered By: Lluviaclaudiomelissalynnette Morrisawaismilton on 03-01-2024 MCH (RBC) [Entitic mass] 32.1 pg High 27.0-32.0 [facility] Mean corpuscular hemoglobin concentration (MCHC) determinationOrdered By: Joe Morrisawaismilton on 03-01-2024 MCHC (RBC) [Mass/Vol] 33.4 g/dL 32-36 [facility] Mean platelet volume determi nationOrdered By: Joe Arturoawaismilton on 03-01-2024 Platelet mean volume (Bld) [Entitic vol] 12.0 fL 6.2-12.0 [facility] Monocyte percentageOrdered B y: Joe Chaumilton on 03-01-2024 Monocytes/100 WBC (Bld) 12.9 % High 0-10 [facility] Neutrophil percentageOrdered By: Lluviaclaudiokayleigh Chaumilton on 03-01-2024 Neutrophils/100 WBC (Bld) 62.1 % 47-70 [facility] Nucleated red blood cell per centageOrdered By: Joe Arturoawaismilton on 03-01-2024 Nucleated RBC/100 WBC (Bld) [Ratio] 0 % 0-5 [facility] Platelet countOrdered By: Ef montez Arturoawaismilton on 03-01-2024 Platelets (Bld) [#/Vol] 212 10*3/uL 150-450 [facility] Potassium measurementOrdered By: Lluviaclaudiomelissalynnette Morrisawaismilton on 03-01-2024 Potassium [Moles/Vol] 4.1 mmol/L 3.5-5.1 [facility] RBC Auto (Bld) [#/Vol]Ordere d By: Joe Sanchez on 03-01-2024 RBC (Bld) [#/Vol] 3.92 10*6/uL Low 4.2-5.4 [facility] Serum anion gap measurementO rdered By: Joe Sanchez on 03-01-2024 Anion gap [Moles/Vol] 8 mmol/L 5-15 [facility] Serum or plasma calcium leah urement (mass/volume)Ordered By: Joe Morrisawaismilton on 03-01-2024 Calcium [Mass/Vol] 9.6 mg/dL 8.5-10.1 [facility] Serum or plasma creatinine m easurement (mass/volume)Ordered By: Lluviaclaudiomelissalynnette Morrisawaismilton on 03-01-2024 Creatinine [Mass/Vol] 2.01 mg/dL High 0.55-1.02 [facility] Comment on above: The validity of the calculated GFR & GFRAA in patients over 70 years has not been determined. Clinical correlation is essential. Serum or plasma urea nitroge n measurement (mass/volume)Ordered By: Lluviaclaudiomelissalynnette Morrishans on 03-01-2024 Urea nitrogen [Mass/Vol] 32 mg/dL High -18 [facility] Sodium levelOrdered By: Yudi Sanchez on 03-01-2024 Sodium [Moles/Vol] 136 mmol/L 136-145 [facility] White blood cell (WBC) count Ordered By: Lluviaclaudiomelissalynnette Morrisawaismilton on 03-01-2024 WBC (Bld) [#/Vol] 8.2 10*3/uL 4.4-11.0 [facility] Cardiology Visit Reporton Cardiology Visit Report Normal [facility] Gastroenterology Visit Repor ton 01-18-2024 Gastroenterology Visit Report Normal [facility] CBC W/Diff, Automatedon 12-19 PATH REV Reviewed Normal [facility] Comment on above: Result Comment: Neut rophilic leukocytosis.REACTIVE LYMPHOCYTES PRESENTArun Mahesh King 01/11/24 AMENDED REPORT 01/11/24 0298 PATH REV previously reported as: July Performed By: #### L 100.0100, L500.2500 ####[facility] [address] [place], [address] Basic Metabolic Profile (BMP )on 01-10-2024 BUN/CRE 24.4 RATIO High 10-20 [facility] Comment on above: Performed By: #### L 100.0100, L500.2500 ####[facility] [address] [place], [address] CA,Total 9.5 mg/dL Normal 8.5-10.1 [facility] Comment on above: Performed By: #### L 100.0100, L500.2500 ####[facility] [address] [place], [address] Chloride [Moles/Vol] 99 mmol/L Normal 98-107 [facility] Comment on above: Performed By: #### L 100.0100, L500.2500 ####[facility] [address] [place], [address] CO2 [Moles/Vol] 25.0 mmol/L Normal 21.0-32.0 [facility] Comment on above: Performed By: #### L 100.0100, L500.2500 ####[facility] [address] [place], [address] Creatinine [Mass/Vol] 1.60 mg/dL High 0.55-1.02 [facility] Comment on above: Result Comment: The validity of the calculated GFR GFRAA in patients over70 years has not been determined. Clinical correlation isessential. Performed By: #### L 100.0100, L500.2500 ####[facility] [address] [place], [address] ECRCL 31.06 ml/min Normal [facility] Comment on above: Performed By: #### L 100.0100, L500.2500 ####[facility] [address] [place], [address] EST GFR - AA 40 mL/min Low >60 [facility] Comment on above: Result Comment: Afri can Welsh GFR Calc Performed By: #### L 100.0100, L500.2500 ####[facility] [address] [place], [address] GAP 7 Normal 5-15 [facility] Comment on above: Performed By: #### L 100.0100, L500.2500 ####[facility] [address] [place], [address] GFR/1.73 sq M.predicted among non-blacks MDRD (S/P/Bld) [Vol rate/Area] 33 mL/min/{1.73_m2} Low >60 [facility] Comment on above: Result Comment: Non- GFR Calc Performed By: #### L 100.0100, L500.2500 ####[facility] [address] [place], [address] Glucose [Mass/Vol] 116 mg/dL High 74-106 [facility] Comment on above: Result Comment: Fast ing Glucose result from 100 to 125 mg/dLsuggests IMPAIRED HOMEOSTASIS per A.D.A. criteria. Performed By: #### L 100.0100, L500.2500 ####[facility] [address] [place], [address] Potassium [Moles/Vol] 4.4 mmol/L Normal 3.5-5.1 [facility] Comment on above: Performed By: #### L 100.0100, L500.2500 ####[facility] [address] [place], [address] Sodium [Moles/Vol] 131 mmol/L Low 136-145 [facility] Comment on above: Performed By: #### L 100.0100, L500.2500 ####[facility] [address] [place], [address] Urea nitrogen [Mass/Vol] 39 mg/dL High - [facility] Comment on above: Performed By: #### L 100.0100, L500.2500 ####[facility] [address] [place], [address] Basic Metabolic Profile (BMP )on 01-08-2024 BUN/CRE 21.1 RATIO High - [facility] Comment on above: Order Comment: REDRA W. PREVIOUS SPECIMEN REJECTED DUE TOHEMOLYSIS. 01/08/24742 Preet Vizcarra. Performed By: #### L 500.2500 ####[facility] [address] [place], [address] CA,Total 9.3 mg/dL Normal 8.5-10.1 [facility] Comment on above: Order Comment: REDRA W. PREVIOUS SPECIMEN REJECTED DUE TOHEMOLYSIS. 01/08/2443 Preet Vizcarra. Performed By: #### L 500.2500 ####[facility] [address] [place], [address] Chloride [Moles/Vol] 101 mmol/L Normal 98-107 [facility] [place] Comment on above: Order Comment: REDRA W. PREVIOUS SPECIMEN REJECTED DUE TOHEMOLYSIS. 01/08/2443 Preet Vizcarra. Performed By: #### L 500.2500 ####[facility] [address] [place], [address] CO2 [Moles/Vol] 25.0 mmol/L Normal 21.0-32.0 [facility] Comment on above: Order Comment: REDRA W. PREVIOUS SPECIMEN REJECTED DUE TOHEMOLYSIS. 01/08/2443 Preet Vizcarra. Performed By: #### L 500.2500 ####[facility] [address] [place], [address] Creatinine [Mass/Vol] 1.28 mg/dL High 0.55-1.02 [facility] Comment on above: Order Comment: REDRA W. PREVIOUS SPECIMEN REJECTED DUE TOHEMOLYSIS. 01/08/24742 Preet Vizcarra. Result Comment: The validity of the calculated GFR GFRAA in patients over70 years has not been determined. Clinical correlation isessential. Performed By: #### L 500.2500 ####[facility] [address] [place], [address] ECRCL 38.87 ml/min Normal [facility] Comment on above: Order Comment: REDRA W. PREVIOUS SPECIMEN REJECTED DUE TOHEMOLYSIS. 01/08/24742 Preet Vizcarra. Performed By: #### L 500.2500 ####[facility] [address] [place], [address] EST GFR - AA 51 mL/min Low >60 [facility] Comment on above: Order Comment: REDRA W. PREVIOUS SPECIMEN REJECTED DUE TOHEMOLYSIS. 01/08/24742 Preet Vizcarra. Result Comment: Afri can Welsh GFR Calc Performed By: #### L 500.2500 ####[facility] [address] [place], [address] GAP 8 Normal 5-15 [facility] Comment on above: Order Comment: REDRA W. PREVIOUS SPECIMEN REJECTED DUE TOHEMOLYSIS. 01/08/24742 Preet Vizcarra. Performed By: #### L 500.2500 ####[facility] [address] [place], [address] GFR/1.73 sq M.predicted among non-blacks MDRD (S/P/Bld) [Vol rate/Area] 42 mL/min/{1.73_m2} Low >60 [facility] Comment on above: Order Comment: REDRA W. PREVIOUS SPECIMEN REJECTED DUE TOHEMOLYSIS. 01/08/24742 Preet Vizcarra. Result Comment: Non- GFR Calc Performed By: #### L 500.2500 ####[facility] [address] [place], [address] Glucose [Mass/Vol] 106 mg/dL Normal 74-106 [facility] Comment on above: Order Comment: REDRA W. PREVIOUS SPECIMEN REJECTED DUE TOHEMOLYSIS. 01/08/24742 Preet Vizcarra. Result Comment: Fast ing Glucose result from 100 to 125 mg/dLsuggests IMPAIRED HOMEOSTASIS per A.D.A. criteria. Performed By: #### L 500.2500 ####[facility] [address] [place], [address] Potassium [Moles/Vol] 4.5 mmol/L Normal 3.5-5.1 [facility] Comment on above: Order Comment: REDRA W. PREVIOUS SPECIMEN REJECTED DUE TOHEMOLYSIS. 01/08/24742 Preet Vizcarra. Performed By: #### L 500.2500 ####[facility] [address] [place], [address] Sodium [Moles/Vol] 135 mmol/L Low 136-145 [facility] Comment on above: Order Comment: REDRA W. PREVIOUS SPECIMEN REJECTED DUE TOHEMOLYSIS. 01/08/24742 Preet Vizcarra. Performed By: #### L 500.2500 ####[facility] [address] [place], [address] Urea nitrogen [Mass/Vol] 27 mg/dL High - [facility] Comment on above: Order Comment: REDRA W. PREVIOUS SPECIMEN REJECTED DUE TOHEMOLYSIS. 01/08/24742 Preet Vizcarra. Performed By: #### L 500.2500 ####[facility] [address] [place], [address] BUN Normal - [facility] Comment on above: Result Comment: This specimen has been REJECTED due to Laboratory criteria:Hemolyzed.PHLEBOTOMISTS has been notified of need of recollection.01/08/24742 Preet Vizcarra Performed By: #### L 500.2500 ####[facility] [address] [place], [address] BUN/CRE Normal -20 [facility] Comment on above: Result Comment: This specimen has been REJECTED due to Laboratory criteria:Hemolyzed.PHLEBOTOMISTS has been notified of need of recollection.01/08/24742 Preet L White Performed By: #### L 500.2500 ####[facility] [address] [place], [address] CA,Total Normal 8.5-10.1 [facility] Comment on above: Result Comment: This specimen has been REJECTED due to Laboratory criteria:Hemolyzed.PHLEBOTOMISTS has been notified of need of recollection.01/08/24742 Preet L White Performed By: #### L 500.2500 ####[facility] [address] [place], [address] CL Normal 98-107 [facility] Comment on above: Result Comment: This specimen has been REJECTED due to Laboratory criteria:Hemolyzed.PHLEBOTOMISTS has been notified of need of recollection.01/08/24742 Preet L White Performed By: #### L 500.2500 ####[facility] [address] [place], [address] CO2 Normal 21.0-32.0 [facility] Comment on above: Result Comment: This specimen has been REJECTED due to Laboratory criteria:Hemolyzed.PHLEBOTOMISTS has been notified of need of recollection.01/08/24742 Preet L White Performed By: #### L 500.2500 ####[facility] [address] [place], [address] CREAT,SERUM Normal 0.55-1.02 [facility] Comment on above: Result Comment: This specimen has been REJECTED due to Laboratory criteria:Hemolyzed.PHLEBOTOMISTS has been notified of need of recollection.01/08/24742 Preet L White Performed By: #### L 500.2500 ####[facility] [address] [place], [address] EST GFR Normal >60 [facility] Comment on above: Result Comment: This specimen has been REJECTED due to Laboratory criteria:Hemolyzed.PHLEBOTOMISTS has been notified of need of recollection.01/08/24742 Preet L White Performed By: #### L 500.2500 ####[facility] [address] [place], [address] EST GFR - AA Normal >60 [facility] Comment on above: Result Comment: This specimen has been REJECTED due to Laboratory criteria:Hemolyzed.PHLEBOTOMISTS has been notified of need of recollection.01/08/24742 Preet L White Performed By: #### L 500.2500 ####[facility] [address] [facility] [address] GAP Normal 5-15 [facility] Comment on above: Result Comment: This specimen has been REJECTED due to Laboratory criteria:Hemolyzed.PHLEBOTOMISTS has been notified of need of recollection.01/08/24742 Preet L White Performed By: #### L 500.2500 ####[facility] [address] [place], [address] GLU Normal 74-106 [facility] Comment on above: Result Comment: This specimen has been REJECTED due to Laboratory criteria:Hemolyzed.PHLEBOTOMISTS has been notified of need of recollection.01/08/24742 Preet L White Performed By: #### L 500.2500 ####[facility] [address] [facility] [address] Potassium Normal 3.5-5.1 [facility] Comment on above: Result Comment: This specimen has been REJECTED due to Laboratory criteria:Hemolyzed.PHLEBOTOMISTS has been notified of need of recollection.01/08/24742 Preet L White Performed By: #### L 500.2500 ####[facility] [address] [place], [address] Basic Metabolic Profile (BMP) Normal 136-145 [facility] Comment on above: Result Comment: This specimen has been REJECTED due to Laboratory criteria:Hemolyzed.PHLEBOTOMISTS has been notified of need of recollection.01/08/24 0743 Preet Radford Carmita Performed By: #### L 500.2500 ####[facility] [address] [place], [address] Basic Metabolic Profile (BMP )on 01-07-2024 BUN/CRE 22.3 RATIO High 01-06 [facility] Comment on above: Performed By: #### L 100.0100, L500.2500 ####[facility] [address] [place], [address] CA,Total 9.6 mg/dL Normal 8.5-10.1 [facility] Comment on above: Performed By: #### L 100.0100, L500.2500 ####[facility] [address] [place], [address] Chloride [Moles/Vol] 105 mmol/L Normal 98-107 [facility] [place] Comment on above: Performed By: #### L 100.0100, L500.2500 ####[facility] [address] [place], [address] CO2 [Moles/Vol] 24.0 mmol/L Normal 21.0-32.0 [facility] Comment on above: Performed By: #### L 100.0100, L500.2500 ####[facility] [address] [place], [address] Creatinine [Mass/Vol] 1.39 mg/dL High 0.55-1.02 [facility] Comment on above: Result Comment: The validity of the calculated GFR GFRAA in patients over70 years has not been determined. Clinical correlation isessential. Performed By: #### L 100.0100, L500.2500 ####[facility] [address] [place], [address] ECRCL 35.49 ml/min Normal [facility] Comment on above: Performed By: #### L 100.0100, L500.2500 ####[facility] [address] [place], [address] EST GFR - AA 47 mL/min Low >60 [facility] Comment on above: Result Comment: Afri can Welsh GFR Calc Performed By: #### L 100.0100, L500.2500 ####[facility] [address] [place], [address] GAP 7 Normal 5-15 [facility] Comment on above: Performed By: #### L 100.0100, L500.2500 ####[facility] [address] [place], [address] GFR/1.73 sq M.predicted among non-blacks MDRD (S/P/Bld) [Vol rate/Area] 39 mL/min/{1.73_m2} Low >60 [facility] Comment on above: Result Comment: Non- GFR Calc Performed By: #### L 100.0100, L500.2500 ####[facility] [address] [place], [address] Glucose [Mass/Vol] 106 mg/dL Normal 74-106 [facility] Comment on above: Result Comment: Fast ing Glucose result from 100 to 125 mg/dLsuggests IMPAIRED HOMEOSTASIS per A.D.A. criteria. Performed By: #### L 100.0100, L500.2500 ####[facility] [address] [place], [address] Potassium [Moles/Vol] 4.3 mmol/L Normal 3.5-5.1 [facility] Comment on above: Performed By: #### L 100.0100, L500.2500 ####[facility] [address] [place], [address] Sodium [Moles/Vol] 136 mmol/L Normal 136-145 [facility] Comment on above: Performed By: #### L 100.0100, L500.2500 ####[facility] [address] [place], [address] Urea nitrogen [Mass/Vol] 31 mg/dL High 7-18 [facility] Comment on above: Performed By: #### L 100.0100, L500.2500 ####[facility] [address] [place], [address] Brain/Head without Contrasto n --2023 Brain/Head without Contrast Normal [facility] CBC W/Diff, Automatedon 10- 0-2023 Absolute Lymph 1.42 X10 3/uL Normal 0.83-4.51 [facility] Comment on above: Performed By: #### L 100.0100, L500.2500 ####[facility] [address] [place], [address] Absolute Neut 7.4 X10 3/uL Normal 2.0-7.7 [facility] Comment on above: Performed By: #### L 100.0100, L500.2500 ####[facility] [address] [place], [address] Basophils/100 WBC (Bld) 0.9 % Normal 0-1 [facility] Comment on above: Performed By: #### L 100.0100, L500.2500 ####[facility] [address] [place], [address] Eosinophils/100 WBC (Bld) 0.3 % Normal 0-5 [facility] Comment on above: Performed By: #### L 100.0100, L500.2500 ####[facility] [address] [place], [address] Erythrocyte distribution width (RBC) [Ratio] 13.5 % Normal 11.6-14.6 [facility] Comment on above: Performed By: #### L 100.0100, L500.2500 ####[facility] [address] [place], [address] Hematocrit (Bld) [Volume fraction] 45.3 % Normal 37-47 [facility] Comment on above: Performed By: #### L 100.0100, L500.2500 ####[facility] [address] [place], [address] Hemoglobin (Bld) [Mass/Vol] 15.0 g/dL Normal 12.0-15.0 [facility] Comment on above: Performed By: #### L 100.0100, L500.2500 ####[facility] [address] [place], [address] IG% 0.600 Normal 0.0-0.9 [facility] Comment on above: Result Comment: IG% - Immature Granulocytes (promyelocytes, myelocytes andmetamyelocytes) > 1% indicates that a LEFT SHIFT is Present. Performed By: #### L 100.0100, L500.2500 ####[facility] [address] [place], [address] Lymphocytes/100 WBC (Bld) 14.2 % Low 19-41 [facility] Comment on above: Performed By: #### L 100.0100, L500.2500 ####[facility] [address] [place], [address] MCH (RBC) [Entitic mass] 32.3 pg High 27.0-32.0 [facility] Comment on above: Performed By: #### L 100.0100, L500.2500 ####[facility] [address] [place], [address] MCHC (RBC) [Mass/Vol] 33.1 g/dL Normal 32-36 [facility] Comment on above: Performed By: #### L 100.0100, L500.2500 ####[facility] [address] [place], [address] MCV (RBC) [Entitic vol] 97.4 fL Normal 81-99 [facility] Comment on above: Performed By: #### L 100.0100, L500.2500 ####[facility] [address] [place], [address] Monocytes/100 WBC (Bld) 9.8 % Normal 0-10 [facility] Comment on above: Performed By: #### L 100.0100, L500.2500 ####[facility] [address] [place], [address] Neutrophils/100 WBC (Bld) 74.2 % High 47-70 [facility] Comment on above: Performed By: #### L 100.0100, L500.2500 ####[facility] [address] [place], [address] Nucleated RBC (Bld) [#/Vol] 0 10*3/uL Normal 0-5 [facility] Comment on above: Performed By: #### L 100.0100, L500.2500 ####[facility] [address] [place], [address] Platelet mean volume (Bld) [Entitic vol] 12.1 fL High 6.2-12.0 [facility] Comment on above: Performed By: #### L 100.0100, L500.2500 ####[facility] [address] [place], [address] Platelets (Bld) [#/Vol] 193 10*3/uL Normal 150-450 [facility] Comment on above: Performed By: #### L 100.0100, L500.2500 ####[facility] [address] [place], [address] RBC (Bld) [#/Vol] 4.65 10*6/uL Normal 4.2-5.4 [facility] Comment on above: Performed By: #### L 100.0100, L500.2500 ####[facility] [address] [place], [address] RDW SD 48.4 fl High 35.1-43.9 [facility] Comment on above: Performed By: #### L 100.0100, L500.2500 ####[facility] [address] [place], [address] WBC (Bld) [#/Vol] 10.0 10*3/uL Normal 4.4-11.0 [facility] Comment on above: Performed By: #### L 100.0100, L500.2500 ####[facility] [address] [place], [address] Carotid Duplex Ultrasoundon 01-07-2024 Carotid Duplex Ultrasound Normal [facility] Ammoniaon 01-06-2024 Ammonia (P) [Mass/Vol] ug/dL Low 11-32 [facility] Comment on above: Performed By: #### L 503.5510 ####[facility] [address] [place], [address] [facility] JORGITO TEST Positive Normal [facility] Comment on above: Performed By: #### L 9000.0800 ####[facility] [address] [place], [address] Base excess Calc (Bld) [Moles/Vol] -1 mmol/L Normal -2 to +2 [facility] Comment on above: Performed By: #### L 9000.0800 ####[facility] [address] [place], [address] Blood Gas Type ART Normal [facility] Comment on above: Performed By: #### L 9000.0800 ####[facility] [address] [place], [address] CO2 [Moles/Vol] 23 mmol/L Normal [facility] Comment on above: Performed By: #### L 9000.0800 ####[facility] [address] [place], [address] HCO3 (Bld) [Moles/Vol] 22.4 mmol/L Normal 22-26 [facility] Comment on above: Performed By: #### L 0.0800 ####[facility] [address] [place], [address] Mode Not entered Normal [facility] Comment on above: Performed By: #### L 0.0800 ####[facility] [address] [place], [address] O2 Delivery Dev Room Air Normal [facility] Comment on above: Performed By: #### L 0.08 ####[facility] [address] [place], [address] pCO2 28.1 mmHg Low 35-45 [facility] Comment on above: Performed By: #### L 0.08 ####[facility] [address] [place], [address] pH (Bld) 7.51 [pH] High 7.35-7.45 [facility] Comment on above: Performed By: #### L 0.0800 ####[facility] [address] [place], [address] PO2 85 mmHG Normal 75-100 [facility] Comment on above: Performed By: #### L 0.0800 ####[facility] [address] [place], [address] SITE R Radial Normal [facility] Comment on above: Performed By: #### L 0.0800 ####[facility] [address] [place], [address] SO2 98 Normal 95-99 [facility] Comment on above: Performed By: #### L 0.0800 ####[facility] [address] [place], [address] CBC W/Diff, Automatedon 10- Absolute Lymph 0.62 X10 3/uL Low 0.83-4.51 [facility] Comment on above: Performed By: #### L 500.4050, L500.4100, L501.9520, L100.0100, L501.9985 ####[facility] [address] [place], [address] Absolute Neut 7.5 X10 3/uL Normal 2.0-7.7 [facility] Comment on above: Performed By: #### L 500.4050, L500.4100, L501.9520, L100.0100, L501.9985 ####[facility] [address] [place], [address] Basophils/100 WBC (Bld) 0.2 % Normal 0-1 [facility] Comment on above: Performed By: #### L 500.4050, L500.4100, L501.9520, L100.0100, L501.9985 ####[facility] [address] [place], [address] Eosinophils/100 WBC (Bld) 0.0 % Normal 0-5 [facility] Comment on above: Performed By: #### L 500.4050, L500.4100, L501.9520, L100.0100, L501.9985 ####[facility] [address] [place], [address] Erythrocyte distribution width (RBC) [Ratio] 13.4 % Normal 11.6-14.6 [facility] Comment on above: Performed By: #### L 500.4050, L500.4100, L501.9520, L100.0100, L501.9985 ####[facility] [address] [place], [address] Hematocrit (Bld) [Volume fraction] 44.3 % Normal 37-47 [facility] Comment on above: Performed By: #### L 500.4050, L500.4100, L501.9520, L100.0100, L501.9985 ####[facility] [address] [place], [address] Hemoglobin (Bld) [Mass/Vol] 14.6 g/dL Normal 12.0-15.0 [facility] Comment on above: Performed By: #### L 500.4050, L500.4100, L501.9520, L100.0100, L501.9985 ####[facility] [address] [place], [address] IG% 0.900 Normal 0.0-0.9 [facility] Comment on above: Result Comment: IG% - Immature Granulocytes (promyelocytes, myelocytes andmetamyelocytes) > 1% indicates that a LEFT SHIFT is Present. Performed By: #### L 500.4050, L500.4100, L501.9520, L100.0100, L501.9985 ####[facility] [address] [place], [address] Lymphocytes/100 WBC (Bld) 7.4 % Low 19-41 [facility] Comment on above: Performed By: #### L 500.4050, L500.4100, L501.9520, L100.0100, L501.9985 ####[facility] [address] [place], [address] MCH (RBC) [Entitic mass] 32.1 pg High 27.0-32.0 [facility] Comment on above: Performed By: #### L 500.4050, L500.4100, L501.9520, L100.0100, L501.9985 ####[facility] [id number] [place], [address] MCHC (RBC) [Mass/Vol] 33.0 g/dL Normal 32-36 [facility] Comment on above: Performed By: #### L 500.4050, L500.4100, L501.9520, L100.0100, L501.9985 ####[facility] [id number] [place], [address] MCV (RBC) [Entitic vol] 97.4 fL Normal 81-99 [facility] Comment on above: Performed By: #### L 500.4050, L500.4100, L501.9520, L100.0100, L501.9985 ####[facility] [address] [place], [address] Monocytes/100 WBC (Bld) 2.5 % Normal 0-10 [facility] Comment on above: Performed By: #### L 500.4050, L500.4100, L501.9520, L100.0100, L501.9985 ####[facility] [address] [place], [address] Neutrophils/100 WBC (Bld) 89.0 % High 47-70 [facility] Comment on above: Performed By: #### L 500.4050, L500.4100, L501.9520, L100.0100, L501.9985 ####[facility] [address] [place], [address] Nucleated RBC (Bld) [#/Vol] 0 10*3/uL Normal 0-5 [facility] Comment on above: Performed By: #### L 500.4050, L500.4100, L501.9520, L100.0100, L501.9985 ####[facility] [address] [place], [address] Platelet mean volume (Bld) [Entitic vol] 12.4 fL High 6.2-12.0 [facility] Comment on above: Performed By: #### L 500.4050, L500.4100, L501.9520, L100.0100, L501.9985 ####[facility] [address] [place], [address] Platelets (Bld) [#/Vol] 188 10*3/uL Normal 150-450 [facility] Comment on above: Performed By: #### L 500.4050, L500.4100, L501.9520, L100.0100, L501.9985 ####[facility] [address] [place], [address] RBC (Bld) [#/Vol] 4.55 10*6/uL Normal 4.2-5.4 [facility] Comment on above: Performed By: #### L 500.4050, L500.4100, L501.9520, L100.0100, L501.9985 ####[facility] [address] [place], [address] RDW SD 48.2 fl High 35.1-43.9 [facility] Comment on above: Performed By: #### L 500.4050, L500.4100, L501.9520, L100.0100, L501.9985 ####[facility] [address] [place], [address] WBC (Bld) [#/Vol] 8.4 10*3/uL Normal 4.4-11.0 [facility] Comment on above: Performed By: #### L 500.4050, L500.4100, L501.9520, L100.0100, L501.9985 ####[facility] [address] [place], [address] Comprehensive Metabolic Prof ilon 01-06-2024 Albumin [Mass/Vol] 3.3 g/dL Normal 3.2-5.0 [facility] Comment on above: Order Comment: Comme nts: NPO at [place] prior to lipid panel Performed By: #### L 500.4050, L500.4100, L501.9520, L100.0100, L501.9985 ####[facility] [address] [place], [address] Albumin/Globulin [Mass ratio] 0.9 {ratio} Normal 0.9-2.4 [facility] Comment on above: Order Comment: Comme nts: NPO at [place] prior to lipid panel Performed By: #### L 500.4050, L500.4100, L501.9520, L100.0100, L501.9985 ####[facility] [address] [place], [address] ALK P 55 U/L Normal 45-117 [facility] Comment on above: Order Comment: Comme nts: NPO at [place] prior to lipid panel Performed By: #### L 500.4050, L500.4100, L501.9520, L100.0100, L501.9985 ####[facility] [address] [place], [address] ALT [Catalytic activity/Vol] 17 U/L Normal 13-56 [facility] Comment on above: Order Comment: Comme nts: NPO at [place] prior to lipid panel Performed By: #### L 500.4050, L500.4100, L501.9520, L100.0100, L501.9985 ####[facility] [address] [place], [address] AST [Catalytic activity/Vol] 19 U/L Normal 15-37 [facility] Comment on above: Order Comment: Comme nts: NPO at [place] prior to lipid panel Performed By: #### L 500.4050, L500.4100, L501.9520, L100.0100, L501.9985 ####[facility] [address] [place], [address] Bilirubin [Mass/Vol] 1.30 mg/dL High 0.20-1.00 [facility] [place] Comment on above: Order Comment: Comme nts: NPO at [place] prior to lipid panel Result Comment: For patients on eltrombopag therapy, use of Dimension [place] TBIL is not recommended. Performed By: #### L 500.4050, L500.4100, L501.9520, L100.0100, L501.9985 ####[facility] [address] [place], [address] BUN/CRE 22.9 RATIO High 10-20 [facility] Comment on above: Order Comment: Comme nts: NPO at [place] prior to lipid panel Performed By: #### L 500.4050, L500.4100, L501.9520, L100.0100, L501.9985 ####[facility] [address] [place], [address] CA,Total 9.6 mg/dL Normal 8.5-10.1 [facility] Comment on above: Order Comment: Comme nts: NPO at [place] prior to lipid panel Performed By: #### L 500.4050, L500.4100, L501.9520, L100.0100, L501.9985 ####[facility] [address] [place], [address] Chloride [Moles/Vol] 108 mmol/L High 98-107 [facility] [place] Comment on above: Order Comment: Comme nts: NPO at [place] prior to lipid panel Performed By: #### L 500.4050, L500.4100, L501.9520, L100.0100, L501.9985 ####[facility] [address] [place], [address] CO2 [Moles/Vol] 24.0 mmol/L Normal 21.0-32.0 [facility] Comment on above: Order Comment: Comme nts: NPO at [place] prior to lipid panel Performed By: #### L 500.4050, L500.4100, L501.9520, L100.0100, L501.9985 ####[facility] [address] [place], [address] Creatinine [Mass/Vol] 1.44 mg/dL High 0.55-1.02 [facility] Comment on above: Order Comment: Comme nts: NPO at [place] prior to lipid panel Result Comment: The validity of the calculated GFR GFRAA in patients over70 years has not been determined. Clinical correlation isessential. Performed By: #### L 500.4050, L500.4100, L501.9520, L100.0100, L501.9985 ####[facility] [address] [place], [address] ECRCL 34.35 ml/min Normal [facility] Comment on above: Order Comment: Comme nts: NPO at [place] prior to lipid panel Performed By: #### L 500.4050, L500.4100, L501.9520, L100.0100, L501.9985 ####[facility] [address] [place], [address] EST GFR - AA 45 mL/min Low >60 [facility] Comment on above: Order Comment: Comme nts: NPO at [place] prior to lipid panel Result Comment: Afri can Welsh GFR Calc Performed By: #### L 500.4050, L500.4100, L501.9520, L100.0100, L501.9985 ####[facility] [address] [place], [address] GAP 7 Normal 5-15 [facility] Comment on above: Order Comment: Comme nts: NPO at [place] prior to lipid panel Performed By: #### L 500.4050, L500.4100, L501.9520, L100.0100, L501.9985 ####[facility] [address] [place], [address] GFR/1.73 sq M.predicted among non-blacks MDRD (S/P/Bld) [Vol rate/Area] 37 mL/min/{1.73_m2} Low >60 [facility] Comment on above: Order Comment: Comme nts: NPO at [place] prior to lipid panel Result Comment: Non- GFR Calc Performed By: #### L 500.4050, L500.4100, L501.9520, L100.0100, L501.9985 ####[facility] [address] [place], [address] Globulin (S) [Mass/Vol] 3.6 g/dL Normal 2.2-4.2 [facility] Comment on above: Order Comment: Comme nts: NPO at [place] prior to lipid panel Performed By: #### L 500.4050, L500.4100, L501.9520, L100.0100, L501.9985 ####[facility] [address] [place], [address] Glucose [Mass/Vol] 138 mg/dL High 74-106 [facility] Comment on above: Order Comment: Comme nts: NPO at [place] prior to lipid panel Result Comment: Fast ing Glucose result greater than or equal to 126 mg/dLsuggests DIABETES MELLITUS per A.D.A. criteria. Performed By: #### L 500.4050, L500.4100, L501.9520, L100.0100, L501.9985 ####[facility] [address] [place], [address] Potassium [Moles/Vol] 4.6 mmol/L Normal 3.5-5.1 [facility] Comment on above: Order Comment: Comme nts: NPO at [place] prior to lipid panel Performed By: #### L 500.4050, L500.4100, L501.9520, L100.0100, L501.9985 ####[facility] [address] [place], [address] Sodium [Moles/Vol] 139 mmol/L Normal 136-145 [facility] Comment on above: Order Comment: Comme nts: NPO at [place] prior to lipid panel Performed By: #### L 500.4050, L500.4100, L501.9520, L100.0100, L501.9985 ####[facility] [address] [place], [address] T PROT 6.9 g/dL Normal 6.4-8.2 [facility] Comment on above: Order Comment: Comme nts: NPO at [place] prior to lipid panel Performed By: #### L 500.4050, L500.4100, L501.9520, L100.0100, L501.9985 ####[facility] [address] [place], [address] Urea nitrogen [Mass/Vol] 33 mg/dL High 7-18 [facility] Comment on above: Order Comment: Comme nts: NPO at [place] prior to lipid panel Performed By: #### L 500.4050, L500.4100, L501.9520, L100.0100, L501.9985 ####[facility] [address] [place], [address] Hemoglobin A1con 01-06-2024 HbA1c (Bld) [Mass fraction] 5.8 % High 3.8-5.6 [facility] Comment on above: Result Comment: Norm al < 5.7 % Prediabetic 5.7 - 6.4 % Diabetic >or= 6.5 % Please note range changes. Performed By: #### L 500.4050, L500.4100, L501.9520, L100.0100, L501.9985 ####[facility] [address] [place], [address] Lipid Profileon 01-06-2024 Cholesterol [Mass/Vol] 201 mg/dL High 200 [facility] Comment on above: Order Comment: Comme nts: NPO at [place] prior to lipid panel Result Comment: <200 mg/dL Desirable 200-240 mg/dL Borderline >240 mg/dL High Risk Performed By: #### L 500.4050, L500.4100, L501.9520, L100.0100, L501.9985 ####[facility] [address] [place], [address] Cholesterol in HDL [Mass/Vol] 41 mg/dL Normal [facility] Comment on above: Order Comment: Comme nts: NPO at [place] prior to lipid panel Result Comment: The drugs N-Acetylcysteine and Metamizole may falselydepress this assay. Reference Range HDL <40 mg/dL Low HDL Cholesterol HDL >or= 60 mg/dL High HDL Cholesterol Performed By: #### L 500.4050, L500.4100, L501.9520, L100.0100, L501.9985 ####[facility] [address] [place], [address] Cholesterol in LDL [Mass/Vol] 140 mg/dL High 0-130 [facility] Comment on above: Order Comment: Comme nts: NPO at [place] prior to lipid panel Performed By: #### L 500.4050, L500.4100, L501.9520, L100.0100, L501.9985 ####[facility] [address] [place], [address] Cholesterol in VLDL [Mass/Vol] 20 mg/dL Normal 5-40 [facility] Comment on above: Order Comment: Comme nts: NPO at [place] prior to lipid panel Performed By: #### L 500.4050, L500.4100, L501.9520, L100.0100, L501.9985 ####[facility] [address] [place], [address] Triglyceride [Mass/Vol] 99 mg/dL Normal [facility] Comment on above: Order Comment: Comme nts: NPO at [place] prior to lipid panel Result Comment: The drugs N-Acetylcysteine and Metamizole may falselydepress this assay.Serum Triglycerides Reference Interval Normal <150 mg/dL Borderline high 150 - 199 mg/dL High 200 - 499 mg/dL Very High > or = 500 mg/dL Performed By: #### L 500.4050, L500.4100, L501.9520, L100.0100, L501.9985 ####[facility] [address] [place], [address] MR/CON.PCM.NEon 01-06-2024 MR/CON.PCM.NE Normal [facility] RESPIRATORY PANEL MOLECULARo n 01-06-2024 RP PANEL Normal [facility] Comment on above: Performed By: #### M 100.638 ####[facility] [address] [place], [address] Thyroid Stim Hormone (TSH)on 01-06-2024 TSH 1.140 uIU/mL Normal 0.358-3.740 [facility] Comment on above: Order Comment: Comme nts: NPO at [place] prior to lipid panel Performed By: #### L 500.4050, L500.4100, L501.9520, L100.0100, L501.9985 ####[facility] [address] [place], [address] 12 Lead EKGon 01-05-2024 12 Lead EKG Normal [facility] BNP,B-Type NATRIURETIC PEPTI Delroy 01-05-2024 Natriuretic peptide B (Bld) [Mass/Vol] 161.7 pg/mL High 0-100 [facility] Comment on above: Performed By: #### L 509.7000, L501.5200, L503.6620 ####[facility] [address] [place], [address] Basic Metabolic Profile (BMP )on 01-05-2024 BUN/CRE 23.0 RATIO High 10-20 [facility] Comment on above: Order Comment: 1Y Performed By: #### L 300.4310, L501.5425, L300.3900, L503.6005, L100.0100, L500.2500 ####[facility] [address] [place], [address] CA,Total 9.4 mg/dL Normal 8.5-10.1 [facility] Comment on above: Order Comment: 1Y Performed By: #### L 300.4310, L501.5425, L300.3900, L503.6005, L100.0100, L500.2500 ####[facility] [address] [place], [address] Chloride [Moles/Vol] 104 mmol/L Normal 98-107 [facility] [place] Comment on above: Order Comment: 1Y Performed By: #### L 300.4310, L501.5425, L300.3900, L503.6005, L100.0100, L500.2500 ####[facility] [address] [place], [address] CO2 [Moles/Vol] 28.0 mmol/L Normal 21.0-32.0 [facility] Comment on above: Order Comment: 1Y Performed By: #### L 300.4310, L501.5425, L300.3900, L503.6005, L100.0100, L500.2500 ####[facility] [address] [place], [address] Creatinine [Mass/Vol] 1.48 mg/dL High 0.55-1.02 [facility] Comment on above: Order Comment: 1Y Result Comment: The validity of the calculated GFR GFRAA in patients over70 years has not been determined. Clinical correlation isessential. Performed By: #### L 300.4310, L501.5425, L300.3900, L503.6005, L100.0100, L500.2500 ####[facility] [address] [place], [address] ECRCL 33.57 ml/min Normal [facility] Comment on above: Order Comment: 1Y Performed By: #### L 300.4310, L501.5425, L300.3900, L503.6005, L100.0100, L500.2500 ####[facility] [address] [place], [address] EST GFR - AA 43 mL/min Low >60 [facility] Comment on above: Order Comment: 1Y Result Comment: Afri can Welsh GFR Calc Performed By: #### L 300.4310, L501.5425, L300.3900, L503.6005, L100.0100, L500.2500 ####[facility] [address] [place], [address] GAP 7 Normal 5-15 [facility] Comment on above: Order Comment: 1Y Performed By: #### L 300.4310, L501.5425, L300.3900, L503.6005, L100.0100, L500.2500 ####[facility] [address] [place], [address] GFR/1.73 sq M.predicted among non-blacks MDRD (S/P/Bld) [Vol rate/Area] 36 mL/min/{1.73_m2} Low >60 [facility] Comment on above: Order Comment: 1Y Result Comment: Non- GFR Calc Performed By: #### L 300.4310, L501.5425, L300.3900, L503.6005, L100.0100, L500.2500 ####[facility] [address] [place], [address] Glucose [Mass/Vol] 128 mg/dL High 74-106 [facility] Comment on above: Order Comment: 1Y Result Comment: Fast ing Glucose result greater than or equal to 126 mg/dLsuggests DIABETES MELLITUS per A.D.A. criteria. Performed By: #### L 300.4310, L501.5425, L300.3900, L503.6005, L100.0100, L500.2500 ####[facility] [address] [place], [address] Potassium [Moles/Vol] 4.1 mmol/L Normal 3.5-5.1 [facility] Comment on above: Order Comment: 1Y Performed By: #### L 300.4310, L501.5425, L300.3900, L503.6005, L100.0100, L500.2500 ####[facility] [address] [place], [address] Sodium [Moles/Vol] 139 mmol/L Normal 136-145 [facility] Comment on above: Order Comment: 1Y Performed By: #### L 300.4310, L501.5425, L300.3900, L503.6005, L100.0100, L500.2500 ####[facility] [address] [place], [address] Urea nitrogen [Mass/Vol] 34 mg/dL High - [facility] Comment on above: Order Comment: 1Y Performed By: #### L 300.4310, L501.5425, L300.3900, L503.6005, L100.0100, L500.2500 ####[facility] [address] [place], [address] Brain without Contraston Brain without Contrast Normal [facility] CBC W/Diff, Automatedon 12-18 Absolute Lymph 1.20 X10 3/uL Normal 0.83-4.51 [facility] Comment on above: Performed By: #### L 300.4310, L501.5425, L300.3900, L503.6005, L100.0100, L500.2500 ####[facility] [address] [place], [address] Absolute Neut 6.7 X10 3/uL Normal 2.0-7.7 [facility] Comment on above: Performed By: #### L 300.4310, L501.5425, L300.3900, L503.6005, L100.0100, L500.2500 ####[facility] [address] [place], [address] Basophils/100 WBC (Bld) 0.8 % Normal 0-1 [facility] Comment on above: Performed By: #### L 300.4310, L501.5425, L300.3900, L503.6005, L100.0100, L500.2500 ####[facility] [address] [place], [address] Eosinophils/100 WBC (Bld) 0.2 % Normal 0-5 [facility] Comment on above: Performed By: #### L 300.4310, L501.5425, L300.3900, L503.6005, L100.0100, L500.2500 ####[facility] [address] [place], [address] Erythrocyte distribution width (RBC) [Ratio] 13.3 % Normal 11.6-14.6 [facility] Comment on above: Performed By: #### L 300.4310, L501.5425, L300.3900, L503.6005, L100.0100, L500.2500 ####[facility] [address] [place], [address] Hematocrit (Bld) [Volume fraction] 45.6 % Normal 37-47 [facility] Comment on above: Performed By: #### L 300.4310, L501.5425, L300.3900, L503.6005, L100.0100, L500.2500 ####[facility] [address] [place], [address] Hemoglobin (Bld) [Mass/Vol] 15.2 g/dL High 12.0-15.0 [facility] Comment on above: Performed By: #### L 300.4310, L501.5425, L300.3900, L503.6005, L100.0100, L500.2500 ####[facility] [address] [place], [address] IG% 0.800 Normal 0.0-0.9 [facility] Comment on above: Result Comment: IG% - Immature Granulocytes (promyelocytes, myelocytes andmetamyelocytes) > 1% indicates that a LEFT SHIFT is Present. Performed By: #### L 300.4310, L501.5425, L300.3900, L503.6005, L100.0100, L500.2500 ####[facility] [address] [place], [address] Lymphocytes/100 WBC (Bld) 13.6 % Low 19-41 [facility] Comment on above: Performed By: #### L 300.4310, L501.5425, L300.3900, L503.6005, L100.0100, L500.2500 ####[facility] [address] [place], [address] MCH (RBC) [Entitic mass] 32.5 pg High 27.0-32.0 [facility] Comment on above: Performed By: #### L 300.4310, L501.5425, L300.3900, L503.6005, L100.0100, L500.2500 ####[facility] [address] [place], [address] MCHC (RBC) [Mass/Vol] 33.3 g/dL Normal 32-36 [facility] Comment on above: Performed By: #### L 300.4310, L501.5425, L300.3900, L503.6005, L100.0100, L500.2500 ####[facility] [address] [place], [address] MCV (RBC) [Entitic vol] 97.4 fL Normal 81-99 [facility] Comment on above: Performed By: #### L 300.4310, L501.5425, L300.3900, L503.6005, L100.0100, L500.2500 ####[facility] [address] [place], [address] Monocytes/100 WBC (Bld) 8.4 % Normal 0-10 [facility] Comment on above: Performed By: #### L 300.4310, L501.5425, L300.3900, L503.6005, L100.0100, L500.2500 ####[facility] [address] [place], [address] Neutrophils/100 WBC (Bld) 76.2 % High 47-70 [facility] Comment on above: Performed By: #### L 300.4310, L501.5425, L300.3900, L503.6005, L100.0100, L500.2500 ####[facility] [address] [place], [address] Nucleated RBC (Bld) [#/Vol] 0 10*3/uL Normal 0-5 [facility] Comment on above: Performed By: #### L 300.4310, L501.5425, L300.3900, L503.6005, L100.0100, L500.2500 ####[facility] [address] [place], [address] Platelet mean volume (Bld) [Entitic vol] 12.2 fL High 6.2-12.0 [facility] Comment on above: Performed By: #### L 300.4310, L501.5425, L300.3900, L503.6005, L100.0100, L500.2500 ####[facility] [address] [place], [address] Platelets (Bld) [#/Vol] 187 10*3/uL Normal 150-450 [facility] Comment on above: Performed By: #### L 300.4310, L501.5425, L300.3900, L503.6005, L100.0100, L500.2500 ####[facility] [address] [place], [address] RBC (Bld) [#/Vol] 4.68 10*6/uL Normal 4.2-5.4 [facility] Comment on above: Performed By: #### L 300.4310, L501.5425, L300.3900, L503.6005, L100.0100, L500.2500 ####[facility] [address] [place], [address] RDW SD 48.6 fl High 35.1-43.9 [facility] Comment on above: Performed By: #### L 300.4310, L501.5425, L300.3900, L503.6005, L100.0100, L500.2500 ####[facility] [address] [place], [address] WBC (Bld) [#/Vol] 8.8 10*3/uL Normal 4.4-11.0 [facility] Comment on above: Performed By: #### L 300.4310, L501.5425, L300.3900, L503.6005, L100.0100, L500.2500 ####[facility] [address] [place], [address] CTA Head AND Neck W/ Contras ton 01-05-2024 CTA Head AND Neck W/ Contrast Normal [facility] Chest 1 View (Portable)on Chest 1 View (Portable) Normal [facility] Echo Complete W/ Contraston 01-05-2024 Echo Complete W/ Contrast Normal [facility] Emergency Department Summary on 01-05-2024 Emergency Department Summary Normal [facility] H AND P Exam - Hospitaliston 01-05-2024 H&P Exam - Hospitalist Normal [facility] L501.4020on 01-05-2024 TROPONIN-I HS 24 pg/mL Normal 3.0-54.0 [facility] Comment on above: Result Comment: Plea se Note: New Test Units and Gender Specific Reference Ranges. For more information see Policy Stat Procedure [place] High Sensitivity Troponin (TNIH) and attachments. Performed By: #### L 501.4020 ####[facility] [address] [place], [address] L501.5425on 01-05-2024 TROPONIN-I HS 24 pg/mL Normal 3.0-54.0 [facility] Comment on above: Order Comment: 1Y Result Comment: Plea se Note: New Test Units and Gender Specific Reference Ranges. For more information see Policy Stat Procedure [place] High Sensitivity Troponin (TNIH) and attachments. Performed By: #### L 300.4310, L501.5425, L300.3900, L503.6005, L100.0100, L500.2500 ####[facility] [address] [place], [address] Lactic Acidon 01-05-2024 Lactate [Moles/Vol] 1.8 mmol/L Normal 0.4-1.9 [facility] Comment on above: Order Comment: Y Performed By: #### L 300.4310, L501.5425, L300.3900, L503.6005, L100.0100, L500.2500 ####[facility] [address] [place], [address] M100.678on 01-05-2024 M100.678 Pending SARS-CoV-2 (COVID 19) Negative INFLUENZA A Negative INFLUENZA B Negative RSV PCR Negative Normal [facility] Comment on above: Performed By: #### M 100.678 ####[facility] [address] [place], [address] Magnesiumon 01-05-2024 Magnesium [Mass/Vol] 2.4 mg/dL Normal 1.6-2.6 [facility] [place] Comment on above: Order Comment: Comme nts: may add to ED labs Performed By: #### L 509.7000, L501.5200, L503.6620 ####[facility] [address] [place], [place], [id number] Partial Thromboplast Timeon 01-05-2024 aPTT Coag (Bld) [Time] 27.0 s Normal 24.1-36.2 [facility] Comment on above: Performed By: #### L 300.4310, L501.5425, L300.3900, L503.6005, L100.0100, L500.2500 ####[facility] [address] [place], [place], [id number] Procalcitoninon 01-05-2024 Procalcitonin 0.08 ng/mL Normal 0.00-0.09 [facility] Comment on above: Result Comment: A pr [...] Performed By: #### L 509.7000, L501.5200, L503.6620 ####[facility] [address] [place], [address] Prothrombin Time w/INRon INR Coag (PPP) [Relative time] 1.6 {INR} Normal [facility] Comment on above: Performed By: #### L 300.4310, L501.5425, L300.3900, L503.6005, L100.0100, L500.2500 ####[facility] [address] [place], [address] PT Coag (PPP) [Time] 18.9 s High 11.7-14.9 [facility] [place] Comment on above: Performed By: #### L 300.4310, L501.5425, L300.3900, L503.6005, L100.0100, L500.2500 ####[facility] [address] [place], [address] Urinalysis, Completeon 01-04 CAST,HYALINE 0-5 SEEN Normal 0-5 [facility] Comment on above: Order Comment: JESÚS CTOR TO SPECIFY Performed By: #### L 400.0001 ####[facility] [address] [place], [address] RBC 0-5 SEEN Normal 0-5 [facility] Comment on above: Order Comment: JESÚS CTOR TO SPECIFY Performed By: #### L 400.0001 ####[facility] [address] [place], [address] WBC 0-5 SEEN Normal 0-5 [facility] Comment on above: Order Comment: JESÚS CTOR TO SPECIFY Performed By: #### L 400.0001 ####[facility] [address] [place], [address] EPI,SQUAMOUS 0-5 SEEN Normal 5-10 [facility] Comment on above: Order Comment: COLLE CTOR TO SPECIFY Performed By: #### L 400.0001 ####[facility] [address] [place], [place], [address] BACTERIA 0 SEEN Normal None Seen [facility] Comment on above: Order Comment: COLLE CTOR TO SPECIFY Performed By: #### L 400.0001 ####[facility] [id number] [place], [address] Mucus Ql (Urine sed) 0 SEEN Normal [facility] [place] Comment on above: Order Comment: COLLE CTOR TO SPECIFY Performed By: #### L 400.0001 ####[facility] [id number] [place], [address] 36on 01-04-2024 36 I spoke w/ Juana in Dr. Garces's office, asking for echo order to be faxed. I placed order, Teofilo David DNP to sign, order needs faxed to Juana's attention @ [phone]. Time frame dates given to Juana for completion of OV/EKG/echo. KCCQ mailed to pt. 36 ----- Message from JEREMIE Saldaña CNP sent at 01/04/2024 1:51 PM EDT ----- Please call [place] office and advise regarding registry requirements of one month and one yr appts and echo. Will likely need phone call for KCCQ. Office Visiton 01-04-2024 Follow-up visit [id number] Brianne Call 1940 F Date Provider Department Center 01/04/2024 [id number] DAVID [facility] [address] No family history on file Level of Service:42549 [place] OFFICE/OUTPATIENT ESTABLISHED MOD MDM 30 MIN Reason for Visit and Comments: Cardiac Valve Problem [1334] - One week post TAVR Progress Noteon 01-04-2024 Progress Note [facility] [place] [address] [facility] [address] Dept: [phone] Dept Visit type: Established : 1940 Reason for Visit: Cardiac Valve Problem (One week post TAVR) Assessment and Plan 1. Chronic atrial fibrillation (HCC). HR stable. Continue Apixaban 2. Severe aortic stenosis. S/p tAVR. Continue Eliquis. Will contact [place] regarding follow up and registry requirements. SBE prophylaxis. Plan echo in one month 3. Stage 3a chronic kidney disease (HCC). Renal function remains stable post procedure. 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 GFR 27--> 46 4. Left heart failure (HCC). Improved after TAVR, EF 30%--> 50 %, continue furosemide, Aldactone, Farxiga, metoprolol (allerg to landon/ARB) Plan follow up in [place] Subjective Ms Call is an 83 yr old female with a PMH of permanent AF, HFrEF, HTN, HPL, CKD stage 3b, obesity, GERD, and severe with EF 30%, mean and peak gradients 49/71 mm Hg. She underwent cardiac cath at [place] which showed non obstructive CAD. She underwent [...] wrist complaints. 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 ([address] Calcium [Mass/Vol] 9.1 mg/dL Normal 8.4-10.4 [facility] Comment on above: Performed By: #### L [id number] ####Hanger Off: AIDE RUEDA ([id number])[facility] [place] [address] Chloride [Moles/Vol] 108 mmol/L High 98-107 [facility] Comment on above: Performed By: #### L AB15 ####Hanger Off: AIDE RUEDA ([id number])[facility] [place] [address] [place] CO2 [Moles/Vol] 19 mmol/L Low 22-30 [facility] Comment on above: Performed By: #### L AB15 ####Hanger Off: AIDE RUEDA ([id number])[facility] ([facility])[address] [place] [address] Creatinine [Mass/Vol] 1.17 mg/dL High 0.52-1.04 [facility] Comment on above: Performed By: #### L AB15 ####Hanger Off: AIDE RUEDA ([id number])[facility] ([facility])[address] [place] [address] [place] GLOMERULAR FILTRATION RATE ML/MIN/1.73 SQ M.PREDICTED 46.4 mL/min/1.73m*2 Low >60.0 [facility] Comment on above: Result Comment: Calc ulation based on the Chronic Kidney Disease Epidemiology Collaboration (CKD-EPI) equation refit without adjustment for race Performed By: #### L AB15 ####Hanger Off: AIDE RUEDA ([id number])[facility] ([facility])[address] [place] [address] [place] Glucose [Mass/Vol] 121 mg/dL High 70-100 [facility] Comment on above: Performed By: #### L [id number] ####Hanger Off: AIDE RUEDA ([id number])[facility] ([facility])[address] [place] [address] [place] Potassium [Moles/Vol] 4.4 mmol/L Normal 3.5-5.1 [facility] Comment on above: Performed By: #### L AB15 ####Hanger Off: AIDE RUEDA ([id number])[facility] ([facility])[address] [place] [address] Sodium [Moles/Vol] 134 mmol/L Low 135-145 [facility] Comment on above: Performed By: #### L AB15 ####Hanger Off: AIDE RUEDA ([id number])[facility])[address] [place] [address] Urea nitrogen [Mass/Vol] 31 mg/dL High 7-17 [facility] Comment on above: Performed By: #### L AB15 ####Hanger Off: AIDE RUEDA ([id number])[facility])[address] [place] [address] Basic metabolic 1998 panelon 12-26-2023 Anion gap [Moles/Vol] 7 mmol/L 3 - 13 mmol/L [facility] Calcium [Mass/Vol] 9.1 mg/dL 8.4 - 10. 4 mg/dL [facility] Chloride [Moles/Vol] 108 mmol/L High 98 - 10 7 mmol/L [facility] CO2 [Moles/Vol] 19 mmol/L Low 22 - 30 mmol/L [facility] Creatinine [Mass/Vol] 1.17 mg/dL High 0.52 - 1.04 mg/dL [facility] GFR/1.73 sq M.predicted (S/P/Bld) [Vol rate/Area] 46.4 mL/min Low - PINF [facility] Comment on above: Calculation based on the Chronic Kidney Disease Epidemiology Collaboration (CKD-EPI) equation refit without adjustment for race Glucose [Mass/Vol] 121 mg/dL High 70 - 100 mg/dL [facility] Interpretation and review of laboratory results Abnormal [facility] Potassium [Moles/Vol] 4.4 mmol/L 3.5 - 5.1 mmol/L [facility] Sodium [Moles/Vol] 134 mmol/L Low 135 - 145 mmol/L [facility] Urea nitrogen [Mass/Vol] 31 mg/dL High 7 - 17 mg/dL [facility] CBC (HEMOGRAM)on 12-26-2023 Erythrocyte distribution width (RBC) [Ratio] 13.3 % Normal 11.5-15.0 [facility] Comment on above: Performed By: #### L [id number] ####Hanger Off: AIDE RUEDA ([id number])[facility])[address] [place] [address] Hematocrit (Bld) [Volume fraction] 43.0 % Normal 35.0-47.0 [facility] Comment on above: Performed By: #### L [id number] ####Hanger Off: AIDE RUEDA ([id number])[facility])[address] [place] [address] Hemoglobin (Bld) [Mass/Vol] 14.0 g/dL Normal 11.7-16.0 [facility] Comment on above: Performed By: #### L [id number] ####Hanger Off: AIDE RUEDA ([id number])[facility])[address] [place] [address] MCH (RBC) [Entitic mass] 31.9 pg Normal 26.0-34.0 [facility] Comment on above: Performed By: #### L [id number] ####Hanger Off: AIDE RUEDA ([id number])[facility])[address] [place] [address] MCHC 32.6 % Normal 30.5-36.0 [facility] Comment on above: Performed By: #### L [id number] ####Hanger Off: AIDE RUEDA ([id number])[facility])[address] [place] [address] MCV (RBC) [Entitic vol] 97.9 fL Normal 77.0-99.0 S [facility] Comment on above: Performed By: #### L [id number] ####Hanger Off: AIDE RUEDA ([id number])[facility])[address] [place] [address] Platelet mean volume (Bld) [Entitic vol] 12.4 fL Normal 9.0-12.7 [facility] Comment on above: Performed By: #### L [id number] ####Hanger Off: AIDE RUEDA ([id number])[facility] ([facility])[address] [place] [address] Platelets (Bld) [#/Vol] 154 10*3/uL Normal 140-440 [facility] Comment on above: Performed By: #### L [id number] ####Hanger Off: AIDE RUEDA ([id number])[facility] ([facility])[address] [place] [address] RBC (Bld) [#/Vol] 4.39 10*6/uL Normal 3.80-5.20 [facility] Comment on above: Performed By: #### L [id number] ####Hanger Off: AIDE RUEDA ([id number])[facility] ([facility])[address] [place] [address] WBC (Bld) [#/Vol] 11.6 10*3/uL High 3.6-10.7 [facility] Comment on above: Performed By: #### L [id number] ####Hanger Off: AIDE RUEDA ([id number])[facility])[address] [place] [address] CBC panel Auto (Bld)on 12-25 Erythrocyte distribution width (RBC) [Ratio] 13.3 % 11.5 - 15.0 % [facility] Hematocrit (Bld) [Volume fraction] 43.0 % 35.0 - 47.0 % [facility] Hemoglobin (Bld) [Mass/Vol] 14.0 g/dL 11.7 - 16.0 g/dL [facility] Interpretation and review of laboratory results Abnormal [facility] MCH (RBC) [Entitic mass] 31.9 pg 26.0 - 34.0 pg [facility] MCHC (RBC) [Mass/Vol] 32.6 % 30.5 - 36.0 % [facility] MCV (RBC) [Entitic vol] 97.9 fL 77.0 - 99.0 fL [facility] Platelet mean volume (Bld) [Entitic vol] 12.4 fL 9.0 - 12.7 fL [facility] Platelets (Bld) [#/Vol] 154 10*3/uL 140 - 440 10*3/uL [facility] [employer] RBC (Bld) [#/Vol] 4.39 10*6/uL 3.80 - 5.2 0 10*6/uL [facility] [employer] WBC (Bld) [#/Vol] 11.6 10*3/uL High 3.6 - 10.7 10*3/uL [facility] ECG 12-LEADon 12-26-2023 ECG 12-LEAD IMPRESSION: Atrial fibrillation with slow ventricular rate Repol abnrm suggests ischemia, diffuse leads Electronically Signed On 12-26-2023 16:26:55 EDT by Austin Carmona [facility] No Panel InformationOrdered By: Austin Carmona on 12-26-[address] [place] [address] [facility] Work Phone: [place] Interval [address] [facility] Work Phone: QRS [place] [address] [facility] Work Phone: QRSD Interval [address] [facility] Work Phone: QT Interval 492 ms [facility] Work Phone: QTC Interval [address] [facility] Work Phone: T Wave [place] -[address] [facility] Work Phone: [facility] Work Phone: No Panel Informationon 12-25 Atrial fibrillation with slow ventricular rate Repol abnrm suggests ischemia, diffuse leads Electronically Signed On 12-26-2023 16:26:55 EDT by Austin Carmona Austin Kruger MD - 12/26/2023 IMPRESSION: Atrial fibrillation with slow ventricular rate Repol abnrm suggests ischemia, diffuse leads Electronically Signed On 12-26-2023 16:26:55 EDT by Austin Carmona [facility] P [place] 0 degrees [facility] [place] Interval 0 ms [facility] QRS [place] 22 degrees [facility] QRSD Interval [address] [facility] QT Interval 441 ms [facility] QTC Interval 405 ms [facility] T Wave [place] 230 degrees [facility] Austin Carmona MD - 12/26/2023 IMPRESSION: Atrial fibrillation Poor R wave progression, CONSIDER ANTERIOR INFARCT ST and T abnormality Electronically Signed On 12-26-2023 09:21:43 EDT by Austin Carmona [facility] Nursing Noteon 12-26-2023 Nursing Note Discharge instructions given to patient and daughter. Patient verbalizes understanding of medication changes and follow up appointments, and activity restrictions. Discharged to home with daughter. Normal [facility] US Heart TransthoracicOrdere d By: Christopher Ruggiero on 12-26-2023 Ao Root Index 1.47 cm/m2 [facility] Work Phone: Aortic Root 3.[address] [facility] Work Phone: Aortic Sinus Valsalva 3.1 cm [facility] Work Phone: Aortic Sinus Valsalva Index 1.47 cm/m2 [facility] Work Phone: Ascending Aorta 3.[address] [facility] Work Phone: Ascending Aorta Index 1.71 cm/m2 [facility] Work Phone: AV Area by Peak Velocity 0.[address] [facility] Work Phone: AV Area by VTI 1.[address] [facility] Work Phone: AV AT 75.[address] [facility] Work Phone: AV Mean Gradient [address] [facility] Work Phone: AV Mean Velocity 2.8 m/s [facility] Work Phone: AV Peak Gradient [address] [facility] Work Phone: AV Peak Velocity 3.0 m/s [facility] Work Phone: AV Velocity Ratio 0.27 [facility] Work Phone: AV VTI 71.[address] [facility] Work Phone: RAMÓN/BSA Peak Velocity 0.3 cm2/m2 [facility] Work Phone: RAMÓN/BSA VTI 0.6 cm2/m2 [facility] [employer] Work Phone: E/E' Lateral 11.25 [facility] [employer] Work Phone: E/E' Ratio (Averaged) 16.88 [facility] [employer] Work Phone: E/E' Septal 22.50 [facility] [employer] Work Phone: EF BP 36 % Abnormal 55 - 100 % [facility] [employer] Work Phone: Est. RA Pressure 3 mmHg [facility] [employer] Work Phone: Fractional Shortening 2D 29 % 28 - 44 % [facility] [employer] Work Phone: Interpretation and review of laboratory results Abnormal [facility] [employer] Phone: IVC Diameter 2.2 cm [facility] [employer] Phone: IVSd 1.4 cm Abnormal 0.6 - 0.9 cm [facility] [employer] Phone: LA Diameter 4.9 cm [facility] [employer] Phone: LA Size Index 2.32 cm/m2 [facility] [employer] Work Phone: LA Volume 2C 111 mL Abnormal 22 - 52 mL [facility] [employer] Phone: LA Volume 4C 131 mL Abnormal 22 - 52 mL [facility] [employer] Phone: LA Volume A/L 137 mL [facility] [employer] Work Phone: LA Volume BP 127 mL Abnormal 22 - 52 mL [facility] [employer] Work Phone: LA Volume Index 2C 53 mL/m2 Abnormal 16 - 34 mL/m2 [facility] [employer] Phone: LA Volume Index 4C 62 mL/m2 Abnormal 16 - 34 mL/m2 [facility] [employer] Work Phone: LA Volume Index A/L 65 mL/m2 16 - 34 mL/m2 [facility] [employer] Phone: LA Volume Index BP 60 ml/m2 Abnormal 16 - 34 ml/m2 [facility] [employer] Phone: LA/AO Root Ratio 1.58 [facility] Work Phone: LV E' Lateral Velocity 8 cm/s [facility] Work Phone: LV E' Septal Velocity 4 cm/s [facility] Work Phone: LV EDV A2C 137 mL [facility] Work Phone: LV EDV A4C 145 mL [facility] Work Phone: LV EDV BP 148 mL Abnormal 56 - 104 mL [facility] Work Phone: LV EDV Index A2C 65 mL/m2 [facility] Work Phone: LV EDV Index A4C 69 mL/m2 [facility] Work Phone: LV EDV Index BP 70 mL/m2 [facility] Work Phone: LV Ejection Fraction A2C 36 % [facility] Work Phone: LV Ejection Fraction A4C 35 % [facility] Work Phone: LV ESV A2C 88 mL [facility] Work Phone: LV ESV A4C 94 mL [facility] Work Phone: LV ESV BP 95 mL Abnormal 19 - 49 mL [facility] Work Phone: LV ESV Index A2C 42 mL/m2 [facility] Work Phone: LV ESV Index A4C 45 mL/m2 [facility] Work Phone: LV ESV Index BP 45 mL/m2 [facility] Work Phone: LV Mass 2D 355.3 g Abnormal 67 - 162 g [facility] Work Phone: LV Mass 2D Index 168.4 g/m2 Abnormal 43 - 95 g/m2 [facility] Work Phone: LV RWT Ratio 0.55 [facility] Work Phone: LVIDd 5.5 cm Abnormal 3.9 - 5.3 cm [facility] Work Phone: LVIDd Index 2.61 cm/m2 [facility] Work Phone: LVIDs 3.[address] [facility] Work Phone: LVIDs Index 1.85 cm/m2 [facility] Work Phone: LVOT Area 4.[address] [facility] Work Phone: LVOT Cardiac Output 3.1 liter/mi nut e [facility] Work Phone: LVOT Diameter 2.3 cm [facility] Work Phone: LVOT Mean Gradient [address] [facility] Work Phone: LVOT Peak Gradient [address] [facility] Work Phone: LVOT Peak Velocity 0.8 m/s [facility] Work Phone: LVOT Stroke Volume Index 45.3 mL/m2 [facility] Work Phone: LVOT SV 95.5 ml [facility] Work Phone: LVOT VTI 23.[address] [facility] Work Phone: LVOT:AV VTI Index 0.32 [facility] Work Phone: LVPWd 1.5 cm Abnormal 0.6 - 0.[address] [facility] Work Phone: MR VTI 167.4 cm [facility] Work Phone: MV A Velocity 0.53 m/s [facility] Work Phone: MV Area by PHT 3.[address] [facility] Work Phone: MV Area by VTI 2.[address] [facility] Work Phone: MV E Velocity 0.90 m/s [facility] Work Phone: MV E Wave Deceleration Time 149.[address] [facility] Work Phone: MV E/A 1.70 [facility] Work Phone: MV Max Velocity 1.2 m/s [facility] Work Phone: MV Mean Gradient 2 mmHg [facility] Work Phone: MV Mean Velocity 0.6 m/s [facility] Work Phone: MV Nyquist Velocity 30 cm/s [facility] Work Phone: MV Peak Gradient [address] [facility] Work Phone: MV PHT 73.[address] [facility] Work Phone: MV Regurg Velocity PISA 5.3 m/s S [facility] Work Phone: MV VTI 46.5 cm [facility] Work Phone: MV:LVOT VTI Index 2.02 [facility] Work Phone: RA Area 4C 65.[address] [facility] Work Phone: RV Basal Dimension 3.4 cm [facility] Work Phone: RV Free Wall Peak S' 9 cm/s [facility] Work Phone: RV Mid Dimension 1.4 cm [facility] He alth Work Phone: RVSP 41 mmHg [facility] Work Phone: Sinotubular Junction 2.5 cm [facility] Work Phone: TAPSE 1.7 cm 1.7 cm [facility] Work Phone: TR Max Velocity 3.10 m/s [facility] Work Phone: [facility] Work Phone: Heart Transthoracicon Left [...] on 12-26-2023 Heart rate 37 /min bpm [employer] Work Phone: Vital signson 12-26-2023 Heart rate 51 /min bpm [facility] BASIC METABOLIC PANELon 10- Anion gap [Moles/Vol] 9 mmol/L Normal 3-13 [facility] Comment on above: Performed By: #### L [id number] ####Hanger Off: AIDE RUEDA ([id number])[facility])[address] [place] [address] Calcium [Mass/Vol] 8.5 mg/dL Normal 8.4-10.4 [facility] Comment on above: Performed By: #### L AB15 ####Hanger Off: AIDE RUEDA ([id number])[facility] [place] [address] Chloride [Moles/Vol] 113 mmol/L High 98-107 [facility] Comment on above: Performed By: #### L AB15 ####Hanger Off: AIDE RUEDA ([id number])[facility] ([facility])[address] [place] [address] CO2 [Moles/Vol] 19 mmol/L Low 22-30 [facility] Comment on above: Performed By: #### L AB15 ####Hanger Off: AIDE RUEDA ([id number])[facility])[address] [place] [address] Creatinine [Mass/Vol] 1.09 mg/dL High 0.52-1.04 [facility] Comment on above: Performed By: #### L AB15 ####Hanger Off: AIDE RUEDA ([id number])[facility])[address] [place] [address] GLOMERULAR FILTRATION RATE ML/MIN/1.73 SQ M.PREDICTED 50.5 mL/min/1.73m*2 Low >60.0 [facility] Comment on above: Result Comment: Calc ulation based on the Chronic Kidney Disease Epidemiology Collaboration (CKD-EPI) equation refit without adjustment for race ORDER COMMENTS: Slightly Hemolyzed. Interpret {TESTS AFFECTED BY SLIGHT HEMOLYSIS:[id number]} with caution. Performed By: #### L AB15 ####Hanger Off: AIDE RUEDA ([id number])[facility] ([facility])[address] [place] [address] Glucose [Mass/Vol] 148 mg/dL High 70-100 [facility] Comment on above: Performed By: #### L AB15 ####Hanger Off: AIDE RUEDA ([id number])[facility] ([facility])[address] [place] [address] Potassium [Moles/Vol] 4.7 mmol/L Normal 3.5-5.1 [facility] Comment on above: Performed By: #### L AB15 ####Hanger Off: AIDE RUEDA ([id number])[facility] ([facility])[address] [place] [address] Sodium [Moles/Vol] 141 mmol/L Normal 135-145 [facility] Comment on above: Performed By: #### L AB15 ####Hanger Off: AIDE RUEDA ([id number])[facility] ([facility])[address] [place] [address] Urea nitrogen [Mass/Vol] 28 mg/dL High 7-17 [facility] Comment on above: Performed By: #### L AB15 ####Hanger Off: AIDE RUEDA ([id number])[facility] ([facility])[address] [place] [address] BLOOD TYPE AND SCREEN GELon 12-25-2023 ABO GROUPING O Normal [facility] Comment on above: Performed By: #### L [id number] #### Hanger Off: AIDE RUEDA ([id number]) [facility] ([facility]) [address] [place] [address] RH TYPE IN BLOOD Positive Normal [facility] Comment on above: Performed By: #### L [id number] #### Hanger Off: AIDE RUEDA ([id number]) [facility] ([facility]) [address] [place] [address] Basic metabolic 1998 panelon 12-25-2023 Anion gap [Moles/Vol] 9 mmol/L 3 - 13 mmol/L [facility] Calcium [Mass/Vol] 8.5 mg/dL 8.4 - 10. 4 mg/dL [facility] Chloride [Moles/Vol] 113 mmol/L High 98 - 10 7 mmol/L [facility] CO2 [Moles/Vol] 19 mmol/L Low 22 - 30 mmol/L [facility] Creatinine [Mass/Vol] 1.09 mg/dL High 0.52 - 1.04 mg/dL [facility] GFR/1.73 sq M.predicted (S/P/Bld) [Vol rate/Area] 50.5 mL/min Low - PINF [facility] Comment on above: Calculation based on the Chronic Kidney Disease Epidemiology Collaboration (CKD-EPI) equation refit without adjustment for race Glucose [Mass/Vol] 148 mg/dL High 70 - 100 mg/dL [facility] Interpretation and review of laboratory results Abnormal [facility] Potassium [Moles/Vol] 4.7 mmol/L 3.5 - 5.1 mmol/L [facility] Sodium [Moles/Vol] 141 mmol/L 135 - 145 mmol/L [facility] Urea nitrogen [Mass/Vol] 28 mg/dL High 7 - 17 mg/dL [facility] Slightly Hemolyzed. Interpret {TESTS AFFECTED BY SLIGHT HEMOLYSIS:96757} with caution. [facility] Blood type and Crossmatch pa justin (Bld)on 12-25-2023 ABO group Nom (Bld) O [facility] Blood group antibody screen GEL Ql Negative [facility] D Ag Ql (RBC) [facility] CBC (HEMOGRAM)on 12-25-2023 Erythrocyte distribution width (RBC) [Ratio] 13.3 % Normal 11.5-15.0 [facility] Comment on above: Performed By: #### L [id number] ####Hanger Off: AIDE RUEDA ([id number])[address] Hematocrit (Bld) [Volume fraction] 39.5 % Normal 35.0-47.0 [facility] Comment on above: Performed By: #### L [id number] ####Hanger Off: AIDE RUEDA ([id number])[facility])[address] [place] [address] Hemoglobin (Bld) [Mass/Vol] 13.0 g/dL Normal 11.7-16.0 [facility] Comment on above: Performed By: #### L [id number] ####Hanger Off: AIDE RUEDA ([phone])[facility])[address] [place] [address] MCH (RBC) [Entitic mass] 31.9 pg Normal 26.0-34.0 [facility] Comment on above: Performed By: #### L [id number] ####Hanger Off: AIDE RUEDA ([id number])[facility])[address] [place] [address] MCHC 32.9 % Normal 30.5-36.0 [facility] Comment on above: Performed By: #### L [id number] ####Hanger Off: AIDE RUEDA ([id number])[facility])[address] [place] [address] MCV (RBC) [Entitic vol] 97.1 fL Normal 77.0-99.0 S [facility] Comment on above: Performed By: #### L [id number] ####Hanger Off: AIDE RUEDA ([id number])[facility])[address] [place] [address] Platelet mean volume (Bld) [Entitic vol] 12.2 fL Normal 9.0-12.7 [facility] Comment on above: Performed By: #### L [id number] ####Hanger Off: AIDE RUEDA ([phone])[facility])[address] [place] [address] Platelets (Bld) [#/Vol] 140 10*3/uL Normal 140-440 [facility] Comment on above: Performed By: #### L [id number] ####Hanger Off: AIDE RUEDA ([id number])[facility])[address] [place] [address] RBC (Bld) [#/Vol] 4.07 10*6/uL Normal 3.80-5.20 [facility] Comment on above: Performed By: #### L [id number] ####Hanger Off: AIDE RUEDA ([id number])[facility] ([facility])[address] [place] [address] WBC (Bld) [#/Vol] 9.1 10*3/uL Normal 3.6-10.7 [facility] Comment on above: Performed By: #### L [id number] ####Hanger Off: AIDE RUEDA ([id number])[facility] ([facility])[address] [place] [address] CBC panel Auto (Bld)on 12-24 Erythrocyte distribution width (RBC) [Ratio] 13.3 % 11.5 - 15.0 % [facility] Hematocrit (Bld) [Volume fraction] 39.5 % 35.0 - 47.0 % [facility] Hemoglobin (Bld) [Mass/Vol] 13.0 g/dL 11.7 - 16.0 g/dL [facility] Interpretation and review of laboratory results Normal [facility] MCH (RBC) [Entitic mass] 31.9 pg 26.0 - 34.0 pg [facility] MCHC (RBC) [Mass/Vol] 32.9 % 30.5 - 36.0 % [facility] MCV (RBC) [Entitic vol] 97.1 fL 77.0 - 99.0 fL [facility] Platelet mean volume (Bld) [Entitic vol] 12.2 fL 9.0 - 12.7 fL [facility] Platelets (Bld) [#/Vol] 140 10*3/uL 140 - 440 10*3/uL [facility] RBC (Bld) [#/Vol] 4.07 10*6/uL 3.80 - 5.2 0 10*6/uL [facility] WBC (Bld) [#/Vol] 9.1 10*3/uL 3.6 - 10.7 10*3/uL [facility] Cardiac catheterization stud yon 12-25-2023 Successful pfcvs-[id number] TAVR with a 23mm soumya S3u, via [...] Via the left femoral vein, a 6 American sheath was placed and temporary pacing wire was placed into the RV apex with appropriate capture, in addition sterile tubing was attached and given the anesthesia for central access. Via right radial artery, a 6-American sheath was placed and the pigtail catheter was placed into the aortic annulus with confirmation the implant angle. Via the left femoral artery, a 6-American sheath was placed. The patient was then heparinized. Next, two Perclose devices were used using the pre-close strategy. A Super Stiff wire was then placed through the second Perclose into the descending aorta. Then, a 14-American Soumya E-sheath was introduced over the wire [...] care of your patient while hospitalized at [facility]. I will continue to follow along while hospitalized. Please do not hesitate to call with any questions. [email or web address] No Panel Informationon 12-24 Blood Expiration Date S [facility] Blood Expiration Date S [facility] Crossmatch interpretation COMP [employer] [facility] Dispense Status Crossmatch [facility] Product Blood Type 5100 [employer] [facility] PRODUCT CODE [id number] [employer] [facility] PRODUCT CODE [id number] [employer] Unit ABO O [employer] [facility] Unit Number [id number] [facility] Number [id number] [facility] alth Unit RH Positive [facility] Ziptr Unit Volume 300 mL [email or web address] Op Noteon 12-25-2023 Op Note Date of [...] The valve was passed through the 14 American sapient E sheath into the descending thoracic [...] was decannulated transferred stable to recovery. Normal [facility] Ziptr System [facility] US Heart TransthoracicOrdere d By: Otto Fernandez on 12-25-2023 AV Area (Pre-TAVR) 0.[address] [facility] Work Phone: AV Area by Peak Velocity 0.[address] [facility] Work Phone: AV Area by VTI 0.7 cm2 [facility] Heal th Work Phone: AV Mean Gradient 14 mmHg [facility] Work Phone: AV Mean Gradient (Pre-TAVR) [address] [facility] Work Phone: AV Mean Velocity 1.7 m/s [facility] Work Phone: AV Peak Gradient [address] [facility] Work Phone: AV Peak Gradient (Pre-TAVR) 93 mmHg [facility] Work Phone: AV Peak Velocity 2.5 m/s [facility] Work Phone: AV Peak Velocity (Pre-TAVR) 4.8 m/s [facility] Work Phone: AV Velocity Ratio 0.20 [facility] Work Phone: AV VTI 60.[address] [facility] Work Phone: RAMÓN/BSA Peak Velocity 0.3 cm2/m2 [facility] Work Phone: RAMÓN/BSA VTI 0.3 cm2/m2 [facility] Work Phone: Est. RA Pressure [address] [facility] Work Phone: LVOT Area 3.[address] [facility] Work Phone: LVOT Cardiac Output 1.6 liter/mi nut e [facility] Work Phone: LVOT Diameter 2.0 cm [facility]alt h Work Phone: LVOT Mean Gradient [address] [facility] Work Phone: LVOT Peak Gradient [address] [facility] Work Phone: LVOT Peak Velocity 0.5 m/s [facility] Work Phone: LVOT Stroke Volume Index 20.6 mL/m2 [facility] Health Work Phone: LVOT SV 42.7 ml [facility] Work Phone: LVOT VTI 13.6 cm [facility] Health Work Phone: LVOT:AV VTI Index 0.23 [facility] ealth Work Phone: RVSP 51 mmHg [facility] Health Work Phone: TR Max Velocity 3.45 m/s [facility] Work Phone: TR Peak Gradient 48 mmHg [facility] He alth Work Phone: [facility] Work Phone: Heart Transthoracicon Aortic Valve: Lucia [...] 12/22/2023 11:10 AM EDT --------ORIGINAL REPORT -------- [facility] Valve [facility] Cardiovascular CTA Indication: 83 year-old woman with severe aortic stenosis, being evaluated for transcatheter aortic valve implantation. Technique: Computed tomography of the heart, thoracoabdominal aorta, and iliofemoral system was performed using a [employer] ([employer]) Aquilion One 320 detector scanner. Images were [...] VELEZ MEGGAN Reason For Exam: aortic stenosis [facility] Valve [facility] Cardiovascular CTA Indication: 83 year-old woman with severe aortic stenosis, being evaluated for transcatheter aortic valve implantation. Technique: Computed tomography of the heart, thoracoabdominal aorta, and iliofemoral system was performed usi (more content not included)... Normal [facility] 36on 12-21-2023 36 Patient has stage 3 b- 4 CKD, stable compared to previous. OK to proceed. Normal [facility] 36 BMP received, reviewed, MA to enter, Creat 1.9 GFR 27. Teofilo David CNP to review. Normal [facility] 36 I called [facility] for BMP, left message w/ OP lab to fax results. Normal [facility] Basic Metabolic Profile (BMP )on 12-19-2023 BUN/CRE 17.9 RATIO Normal 10-20 [facility] Comment on above: Performed By: #### L 500.2500 ####[facility] [address] [place], [address] CA,Total 9.8 mg/dL Normal 8.5-10.1 [facility] Comment on above: Performed By: #### L 500.2500 ####[facility] [address] [place], [address] Chloride [Moles/Vol] 103 mmol/L Normal 98-107 [facility] Comment on above: Performed By: #### L 500.2500 ####[facility] [address] [place], [address] CO2 [Moles/Vol] 26.0 mmol/L Normal 21.0-32.0 [facility] Comment on above: Performed By: #### L 500.2500 ####[facility] [address] [place], [address] Creatinine [Mass/Vol] 1.90 mg/dL High 0.55-1.02 [facility] Comment on above: Result Comment: The validity of the calculated GFR GFRAA in patients over70 years has not been determined. Clinical correlation isessential. Performed By: #### L 500.2500 ####[facility] [address] [place], [address] EST GFR - AA 33 mL/min Low >60 [facility] Comment on above: Result Comment: Afri can Welsh GFR Calc Performed By: #### L 500.2500 ####[facility] [address] [place], [address] GAP 9 Normal 5-15 [facility] Comment on above: Performed By: #### L 500.2500 ####[facility] [address] [place], [address] GFR/1.73 sq M.predicted among non-blacks MDRD (S/P/Bld) [Vol rate/Area] 27 mL/min/{1.73_m2} Low >60 [facility] Comment on above: Result Comment: Non- GFR Calc Performed By: #### L 500.2500 ####[facility] [address] [place], [address] Glucose [Mass/Vol] 119 mg/dL High 74-106 [facility] Comment on above: Result Comment: Fast ing Glucose result from 100 to 125 mg/dLsuggests IMPAIRED HOMEOSTASIS per A.D.A. criteria. Performed By: #### L 500.2500 ####[facility] [address] [place], [address] Potassium [Moles/Vol] 3.8 mmol/L Normal 3.5-5.1 [facility] Comment on above: Performed By: #### L 500.2500 ####[facility] [address] [place], [address] Sodium [Moles/Vol] 138 mmol/L Normal 136-145 [facility] Comment on above: Performed By: #### L 500.2500 ####[facility] [address] [place], [address] Urea nitrogen [Mass/Vol] 34 mg/dL High 7-18 [facility] Comment on above: Performed By: #### L 500.2500 ####[facility] [address] [place], [address] 36on 12-18-2023 36 I can not make any changes or cx the No Show b/c it's past. 12-16-2023 36 Name of caller: Brianne Contact phone number: [phone] Relationship to Patient: patient Provider: Mónica VOGEL Practice: [facility] Chief Complaint/Reason for Call: Patient had 3 [...] business hours to return their call: N/A 12-15-2023 36 Lab order faxed to [facility] [phone]/[facility] 12-14-2023 36 Per Teofilo David DNP, will get BMP done on 12/19/23 in [place], RX for Prednisone pended. [place] to fax lab order to [facility], pt notified via phone and verbalizes understanding. 12-13-2023 36 Pt returned my call, no further issues w/ itching/hives from contrast allergy. I reviewed need for BMP and Prednisone before TAVR. Of note, pt was unaware of any renal insufficiency in the past. Will discuss timing of BMP w/ Teofilo David DNP. 36 Per Teofilo David DNP, pt had allergic reaction to CTA contrast yesterday, and pt with increase in Creat. Plan for Dye Allergy Prep meds will be needed, and repeat BMP. I left vm message for pt to return call. BLOOD TYPE AND SCREEN GEL12-12-2023 ABO GROUPING O Comment on above: Performed By: #### L [id number] ####Hanger Off: AIDE RUEDA ([id number])[facility] ([facility])[address] [place] [address] RH TYPE IN BLOOD Positive Normal [facility] alth System [facility] Comment on above: Performed By: #### L [id number] ####Hanger Off: AIDE RUEDA ([id number])[facility] ([facility])[address] [place] [address] Blood type and Crossmatch pa justin (Bld)on 12-12-2023 ABO group Nom (Bld) O [facility] Blood group antibody screen GEL Ql Negative [facility] D Ag Ql (RBC) Positive [facility]alt [facility] CBC W Auto Differential pane l (Bld)on 12-12-2023 Basophils (Bld) [#/Vol] 0.1 10*3/uL 0.0 - 0.2 10*3/uL [facility] Basophils/100 WBC (Bld) 1.3 % 0.0 - 2.0 % [facility] Eosinophils (Bld) [#/Vol] 0.1 10*3/uL 0.0 - 0.5 10*3/uL [facility] Eosinophils/100 WBC (Bld) 2.0 % 0.0 - 6.0 % [facility] Erythrocyte distribution width (RBC) [Ratio] 13.1 % 11.5 - 15.0 % [facility] Hematocrit (Bld) [Volume fraction] 48.1 % High 35.0 - 47.0 % [facility] Hemoglobin (Bld) [Mass/Vol] 16.0 g/dL 11.7 - 16.0 g/dL [facility] Immature granulocytes (Bld) [#/Vol] 0.1 10*3/uL High NINF - 0.1 10*3/uL [facility] Immature granulocytes/100 WBC (Bld) 0.7 % 0.0 - 2.0 % [facility] Interpretation and review of laboratory results Abnormal [facility] Lymphocytes (Bld) [#/Vol] 1.6 10*3/uL 1.0 - 4.3 10*3/uL [facility] Lymphocytes/100 WBC (Bld) 23.0 % 15.0 - 45.0 % [facility] MCH (RBC) [Entitic mass] 31.7 pg 26.0 - 34.0 pg [facility] MCHC (RBC) [Mass/Vol] 33.3 % 30.5 - 36.0 % [facility] MCV (RBC) [Entitic vol] 95.2 fL 77.0 - 99.0 fL [facility] Monocytes (Bld) [#/Vol] 1.0 10*3/uL High 0.0 - 0.9 10*3/uL [facility] Health Monocytes/100 WBC (Bld) 14.2 % High 5.0 - 13.0 % [facility] Neutrophils (Bld) [#/Vol] 4.0 10*3/uL 1.8 - 7.5 10*3/uL [facility] Neutrophils/100 WBC (Bld) 58.8 % 38.0 - 82.0 % [facility] Nucleated RBC/100 WBC (Bld) [Ratio] 0.0 % [facility] Platelet mean volume (Bld) [Entitic vol] 13.0 fL High 9.0 - 12.7 fL [facility] Platelets (Bld) [#/Vol] 194 10*3/uL 140 - 440 10*3/uL [facility] RBC (Bld) [#/Vol] 5.05 10*6/uL 3.80 - 5.2 0 10*6/uL [facility] WBC (Bld) [#/Vol] 6.9 10*3/uL 3.6 - 10.7 10*3/uL [facility] CBC WITH AUTO DIFFERENTIALon 12-12-2023 Basophils (Bld) [#/Vol] 0.1 10*3/uL Normal 0.0-0.2 [facility] Comment on above: Performed By: #### L [id number] ####Hanger Off: AIDE RUEDA ([id number])[facility])[address] [place] [address] Basophils/100 WBC (Bld) 1.3 % Normal 0.0-2.0 [facility] Comment on above: Performed By: #### L [id number] ####Hanger Off: AIDE RUEDA ([phone])[facility] ([facility])[address] [place] [address] Eosinophils (Bld) [#/Vol] 0.1 10*3/uL Normal 0.0-0.5 [facility] Comment on above: Performed By: #### L [id number] ####Hanger Off: AIDE RUEDA ([id number])[facility])[address] [place] [address] Eosinophils/100 WBC (Bld) 2.0 % Normal 0.0-6.0 [facility] Comment on above: Performed By: #### L [id number] ####Hanger Off: AIDE RUEDA ([id number])[facility])[address] [place] [address] Erythrocyte distribution width (RBC) [Ratio] 13.1 % Normal 11.5-15.0 [facility] Comment on above: Performed By: #### L [id number] ####Hanger Off: AIDE RUEDA ([id number])[address] Hematocrit (Bld) [Volume fraction] 48.1 % High 35.0-47.0 [facility] Comment on above: Performed By: #### L [id number] ####Hanger Off: AIDE RUEDA ([id number])[address] Hemoglobin (Bld) [Mass/Vol] 16.0 g/dL Normal 11.7-16.0 [facility] Comment on above: Performed By: #### L [id number] ####Hanger Off: AIDE RUEDA ([id number])[facility])[address] [place] [address] IMMATURE GRANS % 0.7 % Normal 0.0-2.0 [facility] Comment on above: Performed By: #### L [id number] ####Hanger Off: AIDE RUEDA ([id number])[address] IMMATURE GRANS ABSOLUTE 0.1 10*3/uL High <0.1 [facility] Comment on above: Performed By: #### L [id number] ####Hanger Off: AIDE [id number])[facility])[address] [place] [address] Lymphocytes (Bld) [#/Vol] 1.6 10*3/uL Normal 1.0-4.3 [facility] Comment on above: Performed By: #### L [id number] ####Hanger Off: AIDE RUEDA ([id number])[facility])[address] [place] [address] Lymphocytes/100 WBC (Bld) 23.0 % Normal 15.0-45.0 [facility] Comment on above: Performed By: #### L [id number] ####Hanger Off: AIDE RUEDA ([id number])[facility])[address] [place] [address] MCH (RBC) [Entitic mass] 31.7 pg Normal 26.0-34.0 [facility] Comment on above: Performed By: #### L [id number] ####Hanger Off: AIDE RUEDA ([id number])[facility])[address] [place] [address] MCHC 33.3 % Normal 30.5-36.0 [facility] Comment on above: Performed By: #### L [id number] ####Hanger Off: AIDE RUEDA ([id number])[facility])[address] [place] [address] MCV (RBC) [Entitic vol] 95.2 fL Normal 77.0-99.0 [facility] Comment on above: Performed By: #### L [id number] ####Hanger Off: AIDE RUEDA ([id number])[facility])[address] [place] [address] Monocytes (Bld) [#/Vol] 1.0 10*3/uL High 0.0-0.9 [facility] Comment on above: Performed By: #### L [id number] ####Hanger Off: AIDE RUEDA ([id number])[facility])[address] [place] [address] Monocytes/100 WBC (Bld) 14.2 % High 5.0-13.0 [facility] Comment on above: Performed By: #### L [id number] ####Hanger Off: AIDE RUEDA ([id number])[facility] ([facility])[address] [place] [address] NEUTROPHILS ABSOLUTE 4.0 10*3/uL Normal 1.8-7.5 [facility] Comment on above: Performed By: #### L [id number] ####Hanger Off: AIDE RUEDA ([id number])[facility] ([facility])[address] [place] [address] Neutrophils/100 WBC (Bld) 58.8 % Normal 38.0-82.0 [facility] Comment on above: Performed By: #### L [id number] ####Hanger Off: AIDE RUEDA ([id number])[facility] ([facility])[address] [place] [address] NRBC 0.0 /100 WBCs Normal 0.0-2.0 [facility] Comment on above: Performed By: #### L [id number] ####Hanger Off: AIDE RUEDA ([id number])[facility] ([facility])[address] [place] [address] Platelet mean volume (Bld) [Entitic vol] 13.0 fL High 9.0-12.7 [facility] Comment on above: Performed By: #### L [id number] ####Hanger Off: AIDE RUEDA ([id number])[facility] ([facility])[address] [place] [address] Platelets (Bld) [#/Vol] 194 10*3/uL Normal 140-440 [facility] Comment on above: Performed By: #### L [id number] ####Hanger Off: AIDE RUEDA ([id number])[facility] ([facility])[address] [place] [address] [place] RBC (Bld) [#/Vol] 5.05 10*6/uL Normal 3.80-5.20 [facility] Comment on above: Performed By: #### L [id number] ####Hanger Off: AIDE RUEDA ([id number])[facility])[address] [place] [address] WBC (Bld) [#/Vol] 6.9 10*3/uL Normal 3.6-10.7 [facility] Comment on above: Performed By: #### L [id number] ####Hanger Off: AIDE RUEDA ([id number])[facility])[address] [place] [address] COMPREHENSIVE METABOLIC PANE [place] 12-12-2023 Albumin [Mass/Vol] 4.1 g/dL Normal 3.5-5.0 [facility] Comment on above: Performed By: #### L AB106, LAB17 ####Hanger Off: AIDE RUEDA ([id number])[facility])[address] [place] [address] ALP [Catalytic activity/Vol] 70 U/L Normal 38-126 [facility] Comment on above: Performed By: #### L AB106, LAB17 ####Hanger Off: AIDE RUEDA ([id number])[facility])[address] [place] [address] ALT [Catalytic activity/Vol] 18 U/L Normal 0-34 [facility] Comment on above: Performed By: #### L AB106, LAB17 ####Hanger Off: AIDE RUEDA ([id number])[facility])[address] [place] [address] Anion gap [Moles/Vol] 11 mmol/L Normal 3-13 [facility] Comment on above: Performed By: #### L AB106, LAB17 ####Hanger Off: AIDE RUEDA ([id number])[facility])[address] [place] [address] AST [Catalytic activity/Vol] 52 U/L High 15-46 [facility] Comment on above: Performed By: #### L AB106, LAB17 ####Hanger Off: AIDE [id number])[facility] [place] [address] [place] Bilirubin [Mass/Vol] 1.0 mg/dL Normal 0.2-1.3 [facility] Comment on above: Performed By: #### L [id number], LAB17 ####Hanger Off: AIDE RUEDA ([id number])[facility])[address] [place] [address] Calcium [Mass/Vol] 9.3 mg/dL Normal 8.4-10.4 [facility] Comment on above: Performed By: #### L AB106, LAB17 ####Hanger Off: AIDE RUEDA ([id number])[facility] ([facility])[address] [place] [address] Chloride [Moles/Vol] 103 mmol/L Normal 98-107 [facility] Comment on above: Performed By: #### L AB106, LAB17 ####Hanger Off: AIDE RUEDA ([id number])[facility] ([facility])[address] [place] [address] [place] CO2 [Moles/Vol] 22 mmol/L Normal 22-30 [facility] Comment on above: Performed By: #### L AB106, LAB17 ####Hanger Off: AIDE RUEDA ([id number])[facility] ([facility])[address] [place] [address] [place] Creatinine [Mass/Vol] 1.95 mg/dL High 0.52-1.04 [facility] Comment on above: Performed By: #### L AB106, LAB17 ####Hanger Off: AIDE RUEDA ([id number])[facility])[address] [place] [address] [place] GLOMERULAR FILTRATION RATE ML/MIN/1.73 SQ M.PREDICTED 25.1 mL/min/1.73m*2 Low >60.0 [facility] Comment on above: Result Comment: Calc ulation based on the Chronic Kidney Disease Epidemiology Collaboration (CKD-EPI) equation refit without adjustment for race ORDER COMMENTS: Slightly Hemolyzed. Interpret Potassium, Alkaline Phosphatase, and AST with caution. Performed By: #### L AB106, LAB17 ####Hanger Off: AIDE RUEDA ([id number])[facility])[address] [place] [address] Glucose [Mass/Vol] 107 mg/dL High 70-100 [facility] Comment on above: Performed By: #### L AB106, LAB17 ####Hanger Off: AIDE RUEDA ([id number])[facility])[address] [place] [address] Potassium [Moles/Vol] 4.3 mmol/L Normal 3.5-5.1 [facility] Comment on above: Performed By: #### L AB106, LAB17 ####Hanger Off: AIDE RUEDA ([id number])[facility])[address] [place] [address] Protein [Mass/Vol] 7.9 g/dL Normal 6.3-8.2 [facility] Comment on above: Performed By: #### L AB106, LAB17 ####Hanger Off: AIDE RUEDA ([id number])[facility])[address] [place] [address] Sodium [Moles/Vol] 136 mmol/L Normal 135-145 [facility] Comment on above: Performed By: #### L AB106, LAB17 ####Hanger Off: AIDE RUEDA ([id number])[facility])[address] [place] [address] Urea nitrogen [Mass/Vol] 36 mg/dL High 7-17 [facility] Comment on above: Performed By: #### L AB106, LAB17 ####Hanger Off: AIDE RUEDA ([id number])[facility])[address] [place] [address] Comprehensive metabolic 1998 panelon 12-12-2023 Albumin [Mass/Vol] 4.1 g/dL 3.5 - 5.0 g/dL [facility] ALP [Catalytic activity/Vol] 70 U/L 38 - 126 U/L [facility] ALT [Catalytic activity/Vol] 18 U/L 0 - 34 U/L [facility] Anion gap [Moles/Vol] 11 mmol/L 3 - 13 mmol/L [facility] AST [Catalytic activity/Vol] 52 U/L High 15 - 46 U/L [facility] Bilirubin [Mass/Vol] 1.0 mg/dL 0.2 - 1 .3 mg/dL [facility] Calcium [Mass/Vol] 9.3 mg/dL 8.4 - 10. 4 mg/dL [facility] Chloride [Moles/Vol] 103 mmol/L 98 - 10 7 mmol/L [facility] CO2 [Moles/Vol] 22 mmol/L 22 - 30 mmol/L [facility] Creatinine [Mass/Vol] 1.95 mg/dL High 0.52 - 1.04 mg/dL [facility] GFR/1.73 sq M.predicted (S/P/Bld) [Vol rate/Area] 25.1 mL/min Low - PINF [facility] Comment on above: Calculation based on the Chronic Kidney Disease Epidemiology Collaboration (CKD-EPI) equation refit without adjustment for race Glucose [Mass/Vol] 107 mg/dL High 70 - 100 mg/dL [facility] Interpretation and review of laboratory results Abnormal [facility] Potassium [Moles/Vol] 4.3 mmol/L 3.5 - 5.1 mmol/L [facility] Protein [Mass/Vol] 7.9 g/dL 6.3 - 8.2 g/dL [facility] Sodium [Moles/Vol] 136 mmol/L 135 - 145 mmol/L [facility] Urea nitrogen [Mass/Vol] 36 mg/dL High 7 - 17 mg/dL [facility] Slightly Hemolyzed. Interpret Potassium, Alkaline Phosphatase, and AST with caution. [facility] NT PRO BNPon 12-12-2023 Natriuretic peptide B (Bld) [Mass/Vol] 2261 pg/mL High <450 [facility] Comment on above: Performed By: #### L AB106, LAB17 ####Hanger Off: AIDE RUEDA ([id number])[facility] ([address] Natriuretic peptide B [Mass/ Vol]Ordered By: Bob Flores on 12-12-2023 Interpretation and review of laboratory results Abnormal [facility] Natriuretic peptide B (Bld) [Mass/Vol] 2261 pg/mL High NINF - 450 pg/mL [facility] Office Visiton 12-12-2023 Follow-up visit [id number] Brianne Call 1940 F Date Provider Department Center 12/12/2023 [id number]-BMOBEFMÓNICA DAVID [facility] [address] No family history on file Level of Service:00313 [place] OFFICE/OUTPATIENT ESTABLISHED MOD MDM 30 MIN Reason for Visit and Comments: Cardiac Valve Problem [1334] - Patient seen in private OP procedure area for H + P update and education prior to scheduled TAVR Normal [facility] Progress Noteon 12-12-2023 Progress Note Pts symptoms of the reaction have all gone away. Pt states she feels back to normal. Normal [facility] Progress Note [facility] [place] [address] [place] [address] Dept: [phone] Dept Visit type: Established : 1940 Reason [...] mm Hg. She underwent cardiac cath at [place] which showed non obstructive CAD. 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 [place] [address]on 12-08-2023 36 Approved [id number] 12/24-12/26/23 Calendars and Snapboard updated. 36 Messaged central scheduling through secure chat and CTA TAVR scheduled at [facility] at [address] 12-07-2023 36 Jay Currie RT is out of office until 12/11/23. I spoke w/ [facility] Radiology Dept, I was sent to a automobile body repair supervisor , I left message re: add on CTA @ [facility] for 12/11. 36 I spoke w/ Katherin in CS, re: [facility] IV hydration, having difficulty with adding pt, she will speak w/ coworker and call me back. I spoke w/ Jennifer RN in [facility], they have pt on their schedule. I spoke w/ patient, reviewed NPO 4 hrs prior, all questions answered. I also spoke w/ Rossana in CS, CTA needs moved to [facility]. 36on 12-06-2023 36 Hydration orders faxed,confirmed and scanned under Media Submitted auth request on [facility]. Pending # [id number] On all 3 calendars. 36 I spoke w/ pt and dtr [...] Capo Bear notified to schedule/PA/snap board/calendars. Normal [facility] 36 Patient returned my call. No issues with Right radial cath site, cath performed by Dr. Garces in [place], I called to have images pushed to PACS and fax report w/ recent labs. Labs reviewed from [place], drawn 11/28/23 GFR 31 prior to cath. Teofilo Velez CNP notified to review and advise if IV hydration is needed. 36 I spoke w/ Medina in Dr. Garces's office, confirmed LHC completed, she will push images to PACS and fax report & lab results. I left vm message for dtr Shama to review pt status, discuss next steps BMP/CTA. 36on 12-05-2023 36 Chart note done. I faxed it and the EKG tracings to [phone]/[facility] [address]. Huffman verbally notified. 36 Medina from [facility] called requesting last OV note but PB has not finished yet. (11/22/23) [phone] They need the most recent EKG wave forms as well. Cardiac Cath [facility] Cardiac Cath Diagnostic Normal [facility] 36on 11-28-2023 36 Spoke w/ Juana @ [facility], cath scheduled for 12/04/23 w/ Dr. Garces. Normal [facility] Basic Metabolic Profile (BMP )on 11-28-2023 BUN/CRE 21.1 RATIO High 10-20 [facility] Comment on above: Order Comment: for h eart cath Performed By: #### L 500.2500, L300.4310, L100.0100, L300.3900 ####[facility] [address] [place], [address] CA,Total 9.5 mg/dL Normal 8.5-10.1 [facility] Comment on above: Order Comment: for h eart cath Performed By: #### L 500.2500, L300.4310, L100.0100, L300.3900 ####[facility] [address] [place], [address] Chloride [Moles/Vol] 103 mmol/L Normal 98-107 [facility] Comment on above: Order Comment: for h eart cath Performed By: #### L 500.2500, L300.4310, L100.0100, L300.3900 ####[facility] [address] [place], [address] CO2 [Moles/Vol] 27.0 mmol/L Normal 21.0-32.0 [facility] Comment on above: Order Comment: for h eart cath Performed By: #### L 500.2500, L300.4310, L100.0100, L300.3900 ####[facility] [address] [place], [address] Creatinine [Mass/Vol] 1.66 mg/dL High 0.55-1.02 [facility] Comment on above: Order Comment: for h eart cath Result Comment: The validity of the calculated GFR GFRAA in patients over70 years has not been determined. Clinical correlation isessential. Performed By: #### L 500.2500, L300.4310, L100.0100, L300.3900 ####[facility] [address] [place], [address] EST GFR - AA 38 mL/min Low >60 [facility] Comment on above: Order Comment: for h eart cath Result Comment: Afri can Welsh GFR Calc Performed By: #### L 500.2500, L300.4310, L100.0100, L300.3900 ####[facility] [address] [place], [address] GAP 7 Normal 5-15 [facility] Comment on above: Order Comment: for h eart cath Performed By: #### L 500.2500, L300.4310, L100.0100, L300.3900 ####[facility] [address] [place], [address] GFR/1.73 sq M.predicted among non-blacks MDRD (S/P/Bld) [Vol rate/Area] 31 mL/min/{1.73_m2} Low >60 [facility] Comment on above: Order Comment: for h eart cath Result Comment: Non- GFR Calc Performed By: #### L 500.2500, L300.4310, L100.0100, L300.3900 ####[facility] [address] [place], [address] Glucose [Mass/Vol] 128 mg/dL High 74-106 [facility] Comment on above: Order Comment: for h eart cath Result Comment: Fast ing Glucose result greater than or equal to 126 mg/dLsuggests DIABETES MELLITUS per A.D.A. criteria. Performed By: #### L 500.2500, L300.4310, L100.0100, L300.3900 ####[facility] [address] [place], [address] Potassium [Moles/Vol] 3.8 mmol/L Normal 3.5-5.1 [facility] Comment on above: Order Comment: for h eart cath Performed By: #### L 500.2500, L300.4310, L100.0100, L300.3900 ####[facility] [address] [place], [address] Sodium [Moles/Vol] 137 mmol/L Normal 136-145 [facility] Comment on above: Order Comment: for h eart cath Performed By: #### L 500.2500, L300.4310, L100.0100, L300.3900 ####[facility] [address] [place], [address] Urea nitrogen [Mass/Vol] 35 mg/dL High 7-18 [facility] Comment on above: Order Comment: for h eart cath Performed By: #### L 500.2500, L300.4310, L100.0100, L300.3900 ####[facility] [address] [place], [address] CBC W/Diff, Automatedon 09- 0-4 Absolute Lymph 1.45 X10 3/uL Normal 0.83-4.51 [facility] Comment on above: Order Comment: Comme nts: For heart cath Performed By: #### L 500.2500, L300.4310, L100.0100, L300.3900 ####[facility] [address] [place], [address] Absolute Neut 3.9 X10 3/uL Normal 2.0-7.7 [facility] Comment on above: Order Comment: Comme nts: For heart cath Performed By: #### L 500.2500, L300.4310, L100.0100, L300.3900 ####[facility] [address] [place], [address] Basophils/100 WBC (Bld) 1.1 % High 0-1 [facility] Comment on above: Order Comment: Comme nts: For heart cath Performed By: #### L 500.2500, L300.4310, L100.0100, L300.3900 ####[facility] [address] [place], [address] Eosinophils/100 WBC (Bld) 1.4 % Normal 0-5 [facility] Comment on above: Order Comment: Comme nts: For heart cath Performed By: #### L 500.2500, L300.4310, L100.0100, L300.3900 ####[facility] [address] [place], [address] Erythrocyte distribution width (RBC) [Ratio] 12.6 % Normal 11.6-14.6 [facility] Comment on above: Order Comment: Comme nts: For heart cath Performed By: #### L 500.2500, L300.4310, L100.0100, L300.3900 ####[facility] [address] [place], [address] Hematocrit (Bld) [Volume fraction] 50.3 % High 37-47 [facility] Comment on above: Order Comment: Comme nts: For heart cath Performed By: #### L 500.2500, L300.4310, L100.0100, L300.3900 ####[facility] [address] [place], [address] Hemoglobin (Bld) [Mass/Vol] 16.2 g/dL High 12.0-15.0 [facility] Comment on above: Order Comment: Comme nts: For heart cath Performed By: #### L 500.2500, L300.4310, L100.0100, L300.3900 ####[facility] [address] [place], [address] IG% 0.300 Normal 0.0-0.9 [facility] Comment on above: Order Comment: Comme nts: For heart cath Result Comment: IG% - Immature Granulocytes (promyelocytes, myelocytes andmetamyelocytes) > 1% indicates that a LEFT SHIFT is Present. Performed By: #### L 500.2500, L300.4310, L100.0100, L300.3900 ####[facility] [address] [place], [address] Lymphocytes/100 WBC (Bld) 22.9 % Normal 19-41 [facility] Comment on above: Order Comment: Comme nts: For heart cath Performed By: #### L 500.2500, L300.4310, L100.0100, L300.3900 ####[facility] [address] [place], [address] MCH (RBC) [Entitic mass] 31.3 pg Normal 27.0-32.0 [facility] Comment on above: Order Comment: Comme nts: For heart cath Performed By: #### L 500.2500, L300.4310, L100.0100, L300.3900 ####[facility] [address] [place], [address] MCHC (RBC) [Mass/Vol] 32.2 g/dL Normal 32-36 [facility] Comment on above: Order Comment: Comme nts: For heart cath Performed By: #### L 500.2500, L300.4310, L100.0100, L300.3900 ####[facility] [address] [place], [address] MCV (RBC) [Entitic vol] 97.3 fL Normal 81-99 [facility] Comment on above: Order Comment: Comme nts: For heart cath Performed By: #### L 500.2500, L300.4310, L100.0100, L300.3900 ####[facility] [address] [place], [address] Monocytes/100 WBC (Bld) 12.2 % High 0-10 [facility] Comment on above: Order Comment: Comme nts: For heart cath Performed By: #### L 500.2500, L300.4310, L100.0100, L300.3900 ####[facility] [address] [place], [address] Neutrophils/100 WBC (Bld) 62.1 % Normal 47-70 [facility] Comment on above: Order Comment: Comme nts: For heart cath Performed By: #### L 500.2500, L300.4310, L100.0100, L300.3900 ####[facility] [address] [place], [address] Nucleated RBC (Bld) [#/Vol] 0 10*3/uL Normal 0-5 [facility] Comment on above: Order Comment: Comme nts: For heart cath Performed By: #### L 500.2500, L300.4310, L100.0100, L300.3900 ####[facility] [address] [place], [address] Platelet mean volume (Bld) [Entitic vol] 12.7 fL High 6.2-12.0 [facility] Comment on above: Order Comment: Comme nts: For heart cath Performed By: #### L 500.2500, L300.4310, L100.0100, L300.3900 ####[facility] [address] [place], [address] Platelets (Bld) [#/Vol] 191 10*3/uL Normal 150-450 [facility] Comment on above: Order Comment: Comme nts: For heart cath Performed By: #### L 500.2500, L300.4310, L100.0100, L300.3900 ####[facility] [address] [place], [address] RBC (Bld) [#/Vol] 5.17 10*6/uL Normal 4.2-5.4 [facility] Comment on above: Order Comment: Comme nts: For heart cath Performed By: #### L 500.2500, L300.4310, L100.0100, L300.3900 ####[facility] [address] [place], [address] RDW SD 45.3 fl High 35.1-43.9 [facility] Comment on above: Order Comment: Comme nts: For heart cath Performed By: #### L 500.2500, L300.4310, L100.0100, L300.3900 ####[facility] [address] [place], [address] WBC (Bld) [#/Vol] 6.3 10*3/uL Normal 4.4-11.0 [facility] Comment on above: Order Comment: Comme nts: For heart cath Performed By: #### L 500.2500, L300.4310, L100.0100, L300.3900 ####[facility] [address] [place], [address] Partial Thromboplast Timeon 11-28-2023 aPTT Coag (Bld) [Time] 28.7 s Normal 24.1-36.2 [facility] Comment on above: Order Comment: Comme nts: for heart cath Performed By: #### L 500.2500, L300.4310, L100.0100, L300.3900 ####[facility] [address] [place], [address] Prothrombin Time w/INRon INR Coag (PPP) [Relative time] 1.6 {INR} Normal [facility] Comment on above: Order Comment: Comme nts: for heart cath Performed By: #### L 500.2500, L300.4310, L100.0100, L300.3900 ####[facility] [address] [place], [address] PT Coag (PPP) [Time] 18.7 s High 11.7-14.9 [facility] Comment on above: Order Comment: Comme nts: for heart cath Performed By: #### L 500.2500, L300.4310, L100.0100, L300.3900 ####[facility] [address] [place], [address] ECG 12 lead - CLINIC PERFORM EDon 11-25-2023 Atrial fibrillation -Old anteroseptal infarct. -Diffuse nonspecific T-abnormality. ABNORMAL [facility] 36on 11-22-2023 36 Patient seen in Heart valve Clinic yesterday. Dr. Huffman spoke w/ Dr. Garces @ [place] [facility], agreed for R/LHC to be done in [place]. I spoke w/ Maggie HACKETT in Dr. Garces' office, asked her to call me back with cath date. Need to expedite TAVR due to pt symptoms, will need to coordinate CTA, pt does have CKD, last creat was 1.38 done 08/10 scanned in media. Normal [facility] Office Visiton 11-21-2023 Follow-up visit [id number] Nitza Cally 1940 F Date Provider Department Center 11/21/2023 71765-RJDKPTHADDEUS MCKEON [facility] [address] No family history on file Level of Service:73933 [place] OFFICE/OUTPATIENT NEW MODERATE MDM 45 MINUTES Reason for Visit and Comments: Shortness of Breath [718419] Normal [facility] Follow-up visit [id number] Brianne Call 1940 F Date Provider Department Center 11/21/2023 70547-DPMBOJJUAN WINCHESTER [facility] [address] No family history on file Level of Service:97511 [place] OFFICE/OUTPATIENT NEW HIGH MDM 60 MINUTES Reason for Visit and Comments: Cardiac Valve Problem [1334] Normal [facility] Follow-up visit [id number] Brianne Call 1940 F Date Provider Department Center 11/21/2023 55060-YDVDDKYPDAYYHARJEET RUIZ [facility] [address] No family history on file Level of Service:02688 [place] OFFICE/OUTPATIENT NEW HIGH MDM 60 MINUTES Reason for Visit and Comments: Cardiac Valve Problem [1334] Normal [facility] PATINSon 11-21-2023 [facility] DISCHARGE INSTRUCTIONS: Follow-up with [facility] (phone: [phone] fax: [phone]) as needed for memory testing. Please BEGIN [...] age and increased risk of falls. Normal [facility] Progress Noteon 11-21-2023 Progress Note [facility] MEDICAL [facility] CARDIOLOGY [address] [address] Dept: [phone] Dept Loc: [phone] Today's Visit Location: TAVR (transcather aortic valve replacement) Clinic [facility] Cardiology [address] [place] [address] Visit type: Senior Health Assessment at TAVR (transcather aortic valve replacement) Clinic Visit Date: 11/21/2023 Reason for Visit: Shortness of Breath Assessment and Plan 1. Nonrheumatic aortic valve stenosis Assessment & Plan: S/p AV replacement by Dr. Nagy in 201209/22/23 Transthoracic Echo (TTE) noted severe aortic stenosis. Mean Gradient of 49. Dr. Garces in [place]. No aortic valve area mentioned. I agree with cardiology plan as discussed with extractor plant operator Dr. Huffman and CTS Dr. Reed on [...] Patient has already named her Power of Events Administrative Assistant for Healthcare and Finances (Both are her daughter Shama López) I recommended patient follow-up with [facility] (phone: [phone] fax: [phone]) as needed for memory testing. 4. Drug-induced [...] Mean Gradient of 49. Dr. Garces in [place]. No aortic valve area mentioned. A fib [...] no=0 points)0 - patient rents room from [facility]. Rajiv (son) lives w pt Reduce mobility [...] pandemic. Revi (more content not included)... Normal [facility] Progress Note HR 58 bpm today but no syncope, presyncope, falls Patient asymptomatic today Patient taking lopressor 12.5mg po bid - I encouraged patient to discuss with her cardiologists/PCP (primary care provider) regarding change of meds given her advanced age and increased risk of falls Normal [facility] Progress Note [facility]: Cardiothoracic Surgery Multidisciplinary Heart Valve Clinic Date: 11/21/23 Patient:Brianne Call 1940 83 y.o. female [id number] Subjective: HPI: Brianne Call 83 y.o. referred [...] reactive b (more content not included)... Normal [facility] Progress Note Chronic Patient with occasional word-finding difficulties I suspect either normal memory loss for aging or possibly MCI (Mild Cognitive Impairment) Patient has already named her Power of Events Administrative Assistant for Healthcare and Finances (Both are her daughter Shama López) I recommended patient follow-up with [facility] (phone: [phone] fax: [phone]) as needed for memory testing. Normal [facility] Progress Note Chronic; Stable Asymptomatic May be nearing renal (kidney) dysfunction requiring reduced dose of eliquis (given Cr nearly 1.5 in past and patient's age >80 yo). May need eliquis 2.5mg po bid instead of 5mg po bid in future pending renal (kidney) function Normal [facility] Progress Note meds reviewed; appropriate May [...] missing or doubling up on meds Normal [facility] Progress Note S/p AV replacement by Dr. Nagy in 201209/22/23 Transthoracic Echo (TTE) noted severe aortic stenosis. Mean Gradient of 49. Dr. Garces in [place]. No aortic valve area mentioned. I agree with cardiology plan as discussed with extractor plant operator Dr. Huffman and CTS Dr. Reed on same date regarding next steps for further workup/treatment of cardiac disease which likely includes heart cath +/- TAVR. On this date of evaluation, the patient has sufficient understanding of procedure(s) to consent to the procedure(s) being discussed and has adequate social support(s). Normal [facility] Progress Note [facility] CARDIOLOGY [address] [place] [address] Dept: [phone] Dept Visit type: New : 1940 Reason for Visit: Cardiac Valve Problem Assessment and Plan 1. LV dysfunction 2. Stenosis of prosthetic aortic valve, initial encounter - ECG 12 lead - CLINIC PERFORMED This is a very pleasant 83 y.o. 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 she is clearly in need of aortic valve replacement, likely umpwk-wa-hxhyf TAVR. Will need a diagnostic cath first, [...] Effort: Pulmonary (more content not included)... Normal [facility] Progress Noteon 11-17-2023 Progress Note Brianne [...] thinner - Eliquis Transthoracic Echocardiogram 09/22/2023 Normal [facility] BNP,B-Type NATRIURETIC PEPTI Delroy 11-09-2023 Natriuretic peptide B (Bld) [Mass/Vol] 330.1 pg/mL High 0-100 [facility] Comment on above: Performed By: #### L 500.5501, L503.8483, L500.4055 ####[facility] [address] [place], [place], [address] Comprehensive Metabolic Prof ilon 11-09-2023 Albumin [Mass/Vol] 3.5 g/dL Normal 3.2-5.0 [facility] Comment on above: Performed By: #### L 500.4100, L503.6620, L500.4050 ####[facility] [address] [place], [address] Albumin/Globulin [Mass ratio] 0.9 {ratio} Normal 0.9-2.4 [facility] Comment on above: Performed By: #### L 500.4100, L503.6620, L500.4050 ####[facility] [address] [place], [address] ALK P 68 U/L Normal 45-117 [facility] Comment on above: Performed By: #### L 500.4100, L503.6620, L500.4050 ####[facility] [address] [place], [address] ALT [Catalytic activity/Vol] 18 U/L Normal 13-56 [facility] Comment on above: Performed By: #### L 500.4100, L503.6620, L500.4050 ####[facility] [address] [place], [address] AST [Catalytic activity/Vol] 25 U/L Normal 15-37 [facility] Comment on above: Result Comment: Slig ht Hemolysis, Result may be falsely increased. Performed By: #### L 500.4100, L503.6620, L500.4050 ####[facility] [address] [place], [address] Bilirubin [Mass/Vol] 1.10 mg/dL High 0.20-1.00 [facility] Comment on above: Result Comment: For patients on eltrombopag therapy, use of Dimension [place] TBIL is not recommended. Performed By: #### L 500.4100, L503.6620, L500.4050 ####[facility] [address] [place], [address] BUN/CRE 17.6 RATIO Normal 10-20 [facility] Comment on above: Performed By: #### L 500.4100, L503.6620, L500.4050 ####[facility] [address] [place], [address] CA,Total 8.8 mg/dL Normal 8.5-10.1 [facility] Comment on above: Performed By: #### L 500.4100, L503.6620, L500.4050 ####[facility] [address] [place], [address] Chloride [Moles/Vol] 104 mmol/L Normal 98-107 [facility] [place] Comment on above: Performed By: #### L 500.4100, L503.6620, L500.4050 ####[facility] [address] [place], [address] CO2 [Moles/Vol] 24.0 mmol/L Normal 21.0-32.0 [facility] Comment on above: Performed By: #### L 500.4100, L503.6620, L500.4050 ####[facility] [address] [place], [address] Creatinine [Mass/Vol] 1.48 mg/dL High 0.55-1.02 [facility] Comment on above: Result Comment: The validity of the calculated GFR GFRAA in patients over70 years has not been determined. Clinical correlation isessential. Performed By: #### L 500.4100, L503.6620, L500.4050 ####[facility] [address] [place], [address] EST GFR - AA 43 mL/min Low >60 [facility] Comment on above: Result Comment: Afri can Welsh GFR Calc Performed By: #### L 500.4100, L503.6620, [id number] ####[facility] [address] [place], [address] GAP 10 Normal 5-15 [facility] Comment on above: Performed By: #### L 500.4100, L503.6620, L500.4050 ####[facility] [address] [place], [address] GFR/1.73 sq M.predicted among non-blacks MDRD (S/P/Bld) [Vol rate/Area] 36 mL/min/{1.73_m2} Low >60 [facility] Comment on above: Result Comment: Non- GFR Calc Performed By: #### L 500.4100, L503.6620, L500.4050 ####[facility] [address] [place], [address] Globulin (S) [Mass/Vol] 3.9 g/dL Normal 2.2-4.2 [facility] Comment on above: Performed By: #### L 500.4100, L503.6620, L500.4050 ####[facility] [address] [place], [address] Glucose [Mass/Vol] 111 mg/dL High 74-106 [facility] Comment on above: Result Comment: Fast ing Glucose result from 100 to 125 mg/dLsuggests IMPAIRED HOMEOSTASIS per A.D.A. criteria. Performed By: #### L 500.4100, L503.6620, L500.4050 ####[facility] [address] [place], [address] Potassium [Moles/Vol] 4.3 mmol/L Normal 3.5-5.1 [facility] Comment on above: Result Comment: Slig ht Hemolysis, Result may be falsely increased. Performed By: #### L 500.4100, L503.6620, L500.4050 ####[facility] [address] [place], [address] Sodium [Moles/Vol] 138 mmol/L Normal 136-145 [facility] Comment on above: Performed By: #### L 500.4100, L503.6620, L500.4050 ####[facility] [address] [place], [address] T PROT 7.4 g/dL Normal 6.4-8.2 [facility] Comment on above: Performed By: #### L 500.4100, L503.6620, L500.4050 ####[facility] [address] [place], [address] Urea nitrogen [Mass/Vol] 26 mg/dL High 7-18 [facility] Comment on above: Performed By: #### L 500.4100, L503.6620, L500.4050 ####[facility] [address] [place], [address] Lipid Profileon 11-09-2023 Cholesterol [Mass/Vol] 175 mg/dL Normal 200 [facility] Comment on above: Result Comment: <200 mg/dL Desirable 200-240 mg/dL Borderline >240 mg/dL High Risk Performed By: #### L 500.4100, L503.6620, L500.4050 ####[facility] [address] [place], [address] Cholesterol in HDL [Mass/Vol] 35 mg/dL Low [facility] Comment on above: Result Comment: The drugs N-Acetylcysteine and Metamizole may falselydepress this assay. Reference Range HDL <40 mg/dL Low HDL Cholesterol HDL >or= 60 mg/dL High HDL Cholesterol Performed By: #### L 500.4100, L503.6620, L500.4050 ####[facility] [address] [place], [address] Cholesterol in LDL [Mass/Vol] 92 mg/dL Normal 0-130 [facility] Comment on above: Performed By: #### L 500.4100, L503.6620, L500.4050 ####[facility] [address] [place], [address] Cholesterol in VLDL [Mass/Vol] 48 mg/dL High 5-40 [facility] Comment on above: Performed By: #### L 500.4100, L503.6620, L500.4050 ####[facility] [address] [place], [address] Triglyceride [Mass/Vol] 242 mg/dL High [facility] Comment on above: Result Comment: The drugs N-Acetylcysteine and Metamizole may falselydepress this assay.Serum Triglycerides Reference Interval Normal <150 mg/dL Borderline high 150 - 199 mg/dL High 200 - 499 mg/dL Very High > or = 500 mg/dL Performed By: #### L 500.4100, L503.6620, L500.4050 ####[facility] [address] [place], [address] 12 Lead EKG performed by BMS on 11-08-2023 12 Lead EKG performed by [facility] Normal [facility] BNP,B-Type NATRIURETIC PEPTI Delroy 11-08-2023 Natriuretic peptide B (Bld) [Mass/Vol] 346.5 pg/mL High 0-100 [facility] Comment on above: Performed By: #### L 500.4100, L503.6620, L500.4050 ####[facility] [address] [place], [address] Cardiology Visit Reporton Cardiology Visit Report Normal [facility] Chest PA and Lateralon 11-07 Chest PA and Lateral Normal [facility] [place] Comprehensive Metabolic Prof ilon 11-08-2023 ALB Normal 3.2-5.0 [facility] Comment on above: Result Comment: no t ube in lab Performed By: #### L 500.4100, L503.6620, L500.4050 ####[facility] [address] [place], [address] ALK P Normal 45-117 [facility] Comment on above: Result Comment: no t ube in lab Performed By: #### L 500.4100, L503.6620, L500.4050 ####[facility] [address] [place], [address] ALT Normal 13-56 [facility] Comment on above: Result Comment: no t ube in lab Performed By: #### L 500.4100, L503.6620, L500.4050 ####[facility] [address] [place], [address] AST Normal 15-37 [facility] Comment on above: Result Comment: no t ube in lab Performed By: #### L 500.4100, L503.6620, L500.4050 ####[facility] [address] [place], [address] BUN Normal 7-18 [facility] Comment on above: Result Comment: no t ube in lab Performed By: #### L 500.4100, L503.6620, L500.4050 ####[facility] [address] [place], [address] BUN/CRE Normal 10-20 [facility] Comment on above: Result Comment: no t ube in lab Performed By: #### L 500.4100, L503.6620, L500.4050 ####[facility] [address] [place], [address] CA,Total Normal 8.5-10.1 [facility] Comment on above: Result Comment: no t ube in lab Performed By: #### L 500.4100, L503.6620, L500.4050 ####[facility] [address] [place], [address] CL Normal 98-107 [facility] Comment on above: Result Comment: no t ube in lab Performed By: #### L 500.4100, L503.6620, L500.4050 ####[facility] [address] [place], [address] CO2 Normal 21.0-32.0 [facility] Comment on above: Result Comment: no t ube in lab Performed By: #### L 500.4100, L503.6620, L500.4050 ####[facility] [address] [place], [address] CREAT,SERUM Normal 0.55-1.02 [facility] Comment on above: Result Comment: no t ube in lab Performed By: #### L 500.4100, L503.6620, L500.4050 ####[facility] [address] [place], [address] EST GFR Normal >60 [facility] Comment on above: Result Comment: no t ube in lab Performed By: #### L 500.4100, L503.6620, L500.4050 ####[facility] [address] [place], [address] EST GFR - AA Normal >60 [facility] Comment on above: Result Comment: no t ube in lab Performed By: #### L 500.4100, L503.6620, L500.4050 ####[facility] [address] [place], [address] GAP Normal 5-15 [facility] Comment on above: Result Comment: no t ube in lab Performed By: #### L 500.4100, L503.6620, L500.4050 ####[facility] [address] [place], [address] GLU Normal 74-106 [facility] Comment on above: Result Comment: no t ube in lab Performed By: #### L 500.4100, L503.6620, L500.4050 ####[facility] [address] [place], [address] Potassium Normal 3.5-5.1 [facility] Comment on above: Result Comment: no t ube in lab Performed By: #### L 500.4100, L503.6620, L500.4050 ####[facility] [address] [place], [address] T BILI Normal 0.20-1.00 [facility] Comment on above: Result Comment: no t ube in lab Performed By: #### L 500.4100, L503.6620, L500.4050 ####[facility] [address] [place], [address] T PROT Normal 6.4-8.2 [facility] Comment on above: Result Comment: no t ube in lab Performed By: #### L 500.4100, L503.6620, L500.4050 ####[facility] [address] [place], [address] Comprehensive Metabolic Profil Normal 136-145 [facility] Comment on above: Result Comment: no t ube in lab Performed By: #### L 500.4100, L503.6620, L500.4050 ####[facility] [address] [place], [address] Lipid Profileon 11-08-2023 HDL Normal [facility] Comment on above: Result Comment: no t ube in labThe drugs N-Acetylcysteine and Metamizole may falselydepress this assay. Performed By: #### L 500.4100, L503.6620, L500.4050 ####[facility] [address] [place], [address] TRIG Normal [facility] Comment on above: Result Comment: no t ube in labThe drugs N-Acetylcysteine and Metamizole may falselydepress this assay. Performed By: #### L 500.4100, L503.6620, L500.4050 ####[facility] [address] [place], [address] CHOL Normal 200 [facility] Comment on above: Result Comment: no t ube in lab Performed By: #### L 500.4100, L503.6620, L500.4050 ####[facility] [address] [place], [address] LDL Normal 0-130 [facility] Comment on above: Result Comment: no t ube in lab Performed By: #### L 500.4100, L503.6620, L500.4050 ####[facility] [address] [place], [address] VLDL Normal 5-40 [facility] Comment on above: Result Comment: no t ube in lab Performed By: #### L 500.4100, L503.6620, L500.4050 ####[facility] [address] [place], [address] Echo Completeon 09-22-2023 Echo Complete Normal [facility] Basic Metabolic Profile (BMP )on 09-14-2023 BUN/CRE 13.1 RATIO Normal 10-20 [facility] Comment on above: Performed By: #### L 500.2500 ####[facility] [address] [place], [address] CA,Total 8.9 mg/dL Normal 8.5-10.1 [facility] Comment on above: Performed By: #### L 500.2500 ####[facility] [address] [place], [address] Chloride [Moles/Vol] 106 mmol/L Normal 98-107 [facility] [place] Comment on above: Performed By: #### L 500.2500 ####[facility] [address] [place], [address] CO2 [Moles/Vol] 27.0 mmol/L Normal 21.0-32.0 [facility] Comment on above: Performed By: #### L 500.2500 ####[facility] [address] [place], [address] Creatinine [Mass/Vol] 1.37 mg/dL High 0.55-1.02 [facility] Comment on above: Result Comment: The validity of the calculated GFR GFRAA in patients over70 years has not been determined. Clinical correlation isessential. Performed By: #### L 500.2500 ####[facility] [address] [place], [address] EST GFR - AA 47 mL/min Low >60 [facility] Comment on above: Result Comment: Afri can Welsh GFR Calc Performed By: #### L 500.2500 ####[facility] [address] [place], [address] GAP 4 Low 5-15 [facility] Comment on above: Performed By: #### L 500.2500 ####[facility] [address] [place], [address] GFR/1.73 sq M.predicted among non-blacks MDRD (S/P/Bld) [Vol rate/Area] 39 mL/min/{1.73_m2} Low >60 [facility] Comment on above: Result Comment: Non- GFR Calc Performed By: #### L 500.2500 ####[facility] [address] [place], [address] Glucose [Mass/Vol] 106 mg/dL Normal 74-106 [facility] Comment on above: Result Comment: Fast ing Glucose result from 100 to 125 mg/dLsuggests IMPAIRED HOMEOSTASIS per A.D.A. criteria. Performed By: #### L 500.2500 ####[facility] [address] [place], [address] Potassium [Moles/Vol] 4.5 mmol/L Normal 3.5-5.1 [facility] Comment on above: Performed By: #### L 500.2500 ####[facility] [address] [place], [place], [address] Sodium [Moles/Vol] 137 mmol/L Normal 136-145 [facility] Comment on above: Performed By: #### L 500.2500 ####[facility] [address] [place], [place], [address] Urea nitrogen [Mass/Vol] 18 mg/dL Normal 7-18 [facility] Comment on above: Performed By: #### L 500.2500 ####[facility] [address] [place], [place], [id number] Absolute lymphocyte countOrd ered By: Scott Hull on 07-13-2023 Lymphocytes Auto (Unsp spec) [#/Vol] 1.36 10*3/uL 0.83-4.51 [facility] Automated lymphocyte count a s percentage of total leukocytesOrdered By: Scott Hull on 07-13-2023 Lymphocytes/100 WBC Auto (Unsp spec) 23.9 % 19-41 [facility] Basophil percentageOrdered B y: Scott Hull on 07-13-2023 Basophils/100 WBC (Bld) 1.4 % 0-1 [facility] Bilirubin [Mass/Vol] 1.30 mg/dL 0.20-1.00 [facility] [place] Comment on above: For patients on eltr ombopag therapy, use of Dimension [place] TBIL is not recommended. Chloride [Moles/Vol] 107 mmol/L 98-107 [facility] Cholesterol [Mass/Vol] 170 mg/dL <200 [facility] Comment on above: <200 mg/dL Desirable 200-240 mg/dL Borderline >240 mg/dL High Risk Eosinophils/100 WBC (Bld) 1.6 % 0-5 [facility] Glucose [Mass/Vol] 108 mg/dL 74-106 [facility] Comment on above: Fasting Glucose resu lt from 100 to 125 mg/dL suggests IMPAIRED HOMEOSTASIS per A.D.A. criteria. Hemoglobin (Bld) [Mass/Vol] 15.2 g/dL 12.0-15.0 [facility] Monocytes/100 WBC (Bld) 12.6 % 0-10 [facility] Neutrophils (Bld) [#/Vol] 3.4 10*3/uL 2.0-7.7 [facility] Neutrophils/100 WBC (Bld) 59.8 % 47-70 [facility] Potassium [Moles/Vol] 4.2 mmol/L 3.5-5.1 [facility] Protein [Mass/Vol] 7.0 g/dL 6.4-8.2 [facility] Sodium [Moles/Vol] 138 mmol/L 136-145 [facility] Triglyceride [Mass/Vol] 186 mg/dL <199 [facility] Comment on above: The drugs N-Acetylcy steine and Metamizole may falsely depress this assay.Serum Triglycerides Reference Interval Normal <150 mg/dL Borderline high 150 - 199 mg/dL High 200 - 499 mg/dL Very High > or = 500 mg/dL WBC (Bld) [#/Vol] 5.7 10*3/uL 4.4-11.0 [facility] Determination of erythrocyte mean corpuscular volume (MCV)Ordered By: Scott Hull on 07-13-2023 MCV (RBC) [Entitic vol] 97.0 fL 81-99 [facility] Erythrocyte distribution wid th ratioOrdered By: [facility] on 07-13-2023 Erythrocyte distribution width (RBC) [Ratio] 13.1 % 11.6-14.6 [facility] Erythrocyte distribution wid th standard deviationOrdered By: [facility] on 07-13-2023 Erythrocyte distribution width (RBC) [Entitic vol] 47.2 fL 35.1-43.9 [facility] Hematocrit Auto (Bld) [Volum e fraction][facility] Hematocrit (Bld) [Volume fraction] 46.0 % 37-47 [facility] Immature granulocytes/100 WB C Auto (Bld)Ordered By: Scott Kurtis on 07-13-2023 Immature granulocytes/100 WBC (Bld) 0.700 % 0.0-0.9 [facility] Comment on above: IG% - Immature Granu locytes (promyelocytes, myelocytes and metamyelocytes) > 1% indicates that a LEFT SHIFT is Present. Laboratory - Chemistry and C hemistry - challengeOrdered By: Scott Hull on 07-13-2023 Albumin/Globulin [Mass ratio] 0.9 {ratio} 0.9-2.4 [facility] ALP [Catalytic activity/Vol] 64 U/L 45-117 [facility] ALT [Catalytic activity/Vol] 19 U/L 13-56 [facility] Cholesterol in HDL [Mass/Vol] 37 mg/dL >40 [facility] Comment on above: The drugs N-Acetylcy steine and Metamizole may falsely depress this assay. Reference Range HDL <40 mg/dL Low HDL Cholesterol HDL >or= 60 mg/dL High HDL Cholesterol Cholesterol in LDL [Mass/Vol] 96 mg/dL 0-130 [facility] CO2 [Moles/Vol] 26.0 mmol/L 21.0-32.0 [facility] Globulin (S) [Mass/Vol] 3.6 g/dL 2.2-4.2 [facility] Urea nitrogen/Creatinine [Mass ratio] 15.4 mg/mg 10-20 [facility] Laboratory - Hematology and Cell countsOrdered By: Scott Hull on 07-13-2023 MCH (RBC) [Entitic mass] 32.1 pg 27.0-32.0 [facility] MCHC (RBC) [Mass/Vol] 33.0 g/dL 32-36 [facility] Nucleated RBC/100 WBC (Bld) [Ratio] 0 % 0-5 [facility] Platelet mean volume (Bld) [Entitic vol] 12.7 fL 6.2-12.0 [facility] Platelets (Bld) [#/Vol] 190 10*3/uL 150-450 [facility] No Panel InformationOrdered By: Scott Hull on 07-13-2023 Estimated GFR (MDRD) Amer 50 mL/min >60 [facility] Comment on above: GFR Calc Estimated GFR (MDRD) Non-Af Amer 42 mL/min >60 [facility] Comment on above: Non- GFR Calc Vitamin D 25-Hydroxy 21.5 ng/mL [facility] Comment on above: Vitamin D 25(OH) Sta tus Range Deficiency <20 ng/mL (50nmol/L) Insufficiency 20 - 30 ng/mL (50 - 75 nmol/L) Sufficiency 30 - 100 ng/mL (75 - 250 nmol/L) Toxicity >100 ng/mL (>250 nmol/L) VLDL Cholesterol 37 mg/dL 5-40 [facility] RBC Auto (Bld) [#/Vol]Ordere d By: Scott Hull on 07-13-2023 RBC (Bld) [#/Vol] 4.74 10*6/uL 4.2-5.4 [facility] Serum or plasma calcium leah urement (mass/volume)Ordered By: Scott Hull on 07-13-2023 Calcium [Mass/Vol] 8.8 mg/dL 8.5-10.1 [facility] Serum or plasma creatinine m easurement (mass/volume)Ordered By: Scott Hull on 07-13-2023 Creatinine [Mass/Vol] 1.30 mg/dL 0.55-1.02 [facility] Comment on above: The validity of the calculated GFR & GFRAA in patients over 70 years has not been determined. Clinical correlation is essential. Serum or plasma thyroid stim ulating hormone (TSH) measurement (units/volume)Ordered By: Scott Hull 07-13-2023 TSH Qn 2.73 uIU/mL 0.358-3.74 [facility] Serum or plasma urea nitroge n measurement (mass/volume)Ordered By: Scott Hull 07-13-2023 Urea nitrogen [Mass/Vol] 20 mg/dL 7-18 [facility] Serum or plasma uric acid me asurement (mass/volume)Ordered By: Scott Hull 07-13-2023 Urate [Mass/Vol] 4.5 mg/dL 2.6-6.0 [facility] Comment on above: The drugs N-Acetylcy steine and Metamizole may falsely depress this assay. Thin prep Papanicolaou smear with manual screeningOrdered By: Scott Hull on 07-13-2023 Thin prep Papanicolaou smear with manual screening 3.4 g/dL 3.2-5.0 [facility] Thin prep Papanicolaou smear with manual screening 26 U/L 15-37 [facility] Thin prep Papanicolaou smear with manual screening 5 5-15 [facility] Absolute lymphocyte countOrd ered By: Scott Hull on 01-05-2023 Lymphocytes Auto (Unsp spec) [#/Vol] 2.04 10*3/uL 0.83-4.51 [facility] Basophil percentageOrdered B y: Scott Hull on 01-05-2023 Basophils/100 WBC (Bld) 1.1 % 0-1 [facility] Bilirubin [Mass/Vol] 0.90 mg/dL 0.20-1.00 [facility] [place] Comment on above: For patients on eltr ombopag therapy, use of Dimension [place] TBIL is not recommended. Chloride [Moles/Vol] 108 mmol/L 98-107 [facility] Eosinophils/100 WBC (Bld) 2.1 % 0-5 [facility] Glucose [Mass/Vol] 108 mg/dL 74-106 [facility] Comment on above: Fasting Glucose resu lt from 100 to 125 mg/dL suggests IMPAIRED HOMEOSTASIS per A.D.A. criteria. Neutrophils (Bld) [#/Vol] 3.9 10*3/uL 2.0-7.7 [facility] Neutrophils/100 WBC (Bld) 54.6 % 47-70 [facility] Potassium [Moles/Vol] 4.1 mmol/L 3.5-5.1 [facility] Protein [Mass/Vol] 7.2 g/dL 6.4-8.2 [facility] Sodium [Moles/Vol] 140 mmol/L 136-145 [facility] WBC (Bld) [#/Vol] 7.1 10*3/uL 4.4-11.0 [facility] Blood erythrocytes count (nu mber/volume)Ordered By: Scott Hull on 01-05-2023 RBC (Bld) [#/Vol] 4.90 10*6/uL 4.2-5.4 [facility] Blood hemoglobin measurement (mass/volume)Ordered By: Scott Hull on 01-05-2023 Hemoglobin (Bld) [Mass/Vol] 15.7 g/dL 12.0-15.0 [facility] Blood lymphocytes/100 leukoc ytesOrdered By: Scott Hull on 01-05-2023 Lymphocytes/100 WBC (Bld) 28.6 % 19-41 [facility] Blood monocytes/100 leukocyt esOrdered By: Scott Kurtis on 01-05-2023 Monocytes/100 WBC (Bld) 13.0 % 0-10 [facility] Blood platelet mean volumeOr dered By: [facility] on 01-05-2023 Platelet mean volume (Bld) [Entitic vol] 12.0 fL 6.2-12.0 [facility] Determination of erythrocyte mean corpuscular volume (MCV)Ordered By: [facility] on 01-05-2023 MCV (RBC) [Entitic vol] 98.2 fL 81-99 [facility] Hematocrit Auto (Bld) [Volum e fraction]Ordered By: [facility] on 01-05-2023 Hematocrit (Bld) [Volume fraction] 48.1 % 37-47 [facility] Laboratory - Chemistry and C hemistry - challengeOrdered By: [facility] on 01-05-2023 ALP [Catalytic activity/Vol] 63 U/L 45-117 [facility] ALT [Catalytic activity/Vol] 22 U/L 13-56 [facility] CO2 [Moles/Vol] 23.0 mmol/L 21.0-32.0 [facility] Globulin (S) [Mass/Vol] 3.9 g/dL 2.2-4.2 [facility] Urea nitrogen/Creatinine [Mass ratio] 15.3 mg/mg 10-20 [facility] Laboratory - Hematology and Cell countsOrdered By: [facility] on 01-05-2023 Erythrocyte distribution width (RBC) [Entitic vol] 49.0 fL 35.1-43.9 [facility] Erythrocyte distribution width (RBC) [Ratio] 13.5 % 11.6-14.6 [facility] Immature granulocytes/100 WBC (Bld) 0.600 % 0.0-0.9 [facility] Comment on above: IG% - Immature Granu locytes (promyelocytes, myelocytes and metamyelocytes) > 1% indicates that a LEFT SHIFT is Present. MCH (RBC) [Entitic mass] 32.0 pg 27.0-32.0 [facility] Nucleated RBC/100 WBC (Bld) [Ratio] 0 % 0-5 [facility] MCHC Auto (RBC) [Mass/Vol]Or dered By: Scott Hull on 01-05-2023 MCHC (RBC) [Mass/Vol] 32.6 g/dL 32-36 [facility] No Panel InformationOrdered By: Scott Hull on 01-05-2023 Estimated GFR (MDRD) Amer 56 mL/min >60 [facility] Comment on above: GFR Calc Estimated GFR (MDRD) Non-Af Amer 47 mL/min >60 [facility] Comment on above: Non- GFR Calc Thyroid Stimulating Hormone (TSH) 2.88 uIU/mL 0.358-3.74 [facility] Vitamin D 25-Hydroxy 16.6 ng/mL [facility] Comment on above: Vitamin D 25(OH) Sta tus Range Deficiency <20 ng/mL (50nmol/L) Insufficiency 20 - 30 ng/mL (50 - 75 nmol/L) Sufficiency 30 - 100 ng/mL (75 - 250 nmol/L) Toxicity >100 ng/mL (>250 nmol/L) Platelets bldOrdered By: Scott Hull on 01-05-2023 Platelets (Bld) [#/Vol] 227 10*3/uL 150-450 [facility] Serum or plasma albumin leah urement (mass/volume)Ordered By: Scott Hull on 01-05-2023 Albumin [Mass/Vol] 3.3 g/dL 3.2-5.0 [facility] Serum or plasma albumin/glob ulin mass ratioOrdered By: Scott Hull 01-05-2023 Albumin/Globulin [Mass ratio] 0.8 {ratio} 0.9-2.4 [facility] Serum or plasma calcium leah urement (mass/volume)Ordered By: Scott Hull on 01-05-2023 Calcium [Mass/Vol] 8.7 mg/dL 8.5-10.1 [facility] Serum or plasma creatinine m easurement (mass/volume)Ordered By: Scott Hull on 01-05-2023 Creatinine [Mass/Vol] 1.18 mg/dL 0.55-1.02 [facility] Comment on above: The validity of the calculated GFR & GFRAA in patients over 70 years has not been determined. Clinical correlation is essential. Serum or plasma urea nitroge n measurement (mass/volume)Ordered By: Scott Hull on 01-05-2023 Urea nitrogen [Mass/Vol] 18 mg/dL 7-18 [facility] Serum or plasma uric acid me asurement (mass/volume)Ordered By: Scott Hull on 01-05-2023 Urate [Mass/Vol] 4.3 mg/dL 2.6-6.0 [facility] Comment on above: The drugs N-Acetylcy steine and Metamizole may falsely depress this assay. Thin prep Papanicolaou smear with manual screeningOrdered By: cSott Hull on 01-05-2023 Thin prep Papanicolaou smear with manual screening 18 U/L 15-37 [facility] Thin prep Papanicolaou smear with manual screening 9 5-15 [facility] Absolute lymphocyte countOrd ered By: Dr. Hull on 06-30-2022 Lymphocytes Auto (Unsp spec) [#/Vol] 1.80 10*3/uL 0.83-4.51 [facility] Basophil percentageOrdered B y: Dr. Hull on 06-30-2022 Basophils/100 WBC (Bld) 1.3 % 0-1 [facility] Bilirubin [Mass/Vol] 0.80 mg/dL 0.20-1.00 [facility] [place] Comment on above: For patients on eltr ombopag therapy, use of Dimension [place] TBIL is not recommended. Chloride [Moles/Vol] 104 mmol/L 98-107 [facility] [place] Eosinophils/100 WBC (Bld) 1.6 % 0-5 [facility] Glucose [Mass/Vol] 106 mg/dL 74-106 [facility] Comment on above: Fasting Glucose resu lt from 100 to 125 mg/dL suggests IMPAIRED HOMEOSTASIS per A.D.A. criteria. Neutrophils (Bld) [#/Vol] 5.8 10*3/uL 2.0-7.7 [facility] Neutrophils/100 WBC (Bld) 66.1 % 47-70 [facility] Potassium [Moles/Vol] 4.5 mmol/L 3.5-5.1 [facility] Protein [Mass/Vol] 6.9 g/dL 6.4-8.2 [facility] Sodium [Moles/Vol] 136 mmol/L 136-145 [facility] WBC (Bld) [#/Vol] 8.8 10*3/uL 4.4-11.0 [facility] Blood erythrocytes count (nu mber/volume)Ordered By: Dr. Hull on 06-30-2022 RBC (Bld) [#/Vol] 4.84 10*6/uL 4.2-5.4 [facility] Blood hemoglobin measurement (mass/volume)Ordered By: Dr. Hull on 06-30-2022 Hemoglobin (Bld) [Mass/Vol] 15.7 g/dL 12.0-15.0 [facility] Blood lymphocytes/100 leukoc ytesOrdered By: Dr. Hull on 06-30-2022 Lymphocytes/100 WBC (Bld) 20.5 % 19-41 [facility] Blood monocytes/100 leukocyt esOrdered By: Dr. Hull on 06-30-2022 Monocytes/100 WBC (Bld) 9.6 % 0-10 [facility] Blood platelet mean volumeOr dered By: Dr. Hull on 06-30-2022 Platelet mean volume (Bld) [Entitic vol] 12.5 fL 6.2-12.0 [facility] Determination of erythrocyte mean corpuscular volume (MCV)Ordered By: Dr. Hull on 06-30-2022 MCV (RBC) [Entitic vol] 97.5 fL 81-99 [facility] Hematocrit Auto (Bld) [Volum e fraction]Ordered By: Dr. Hull on 06-30-2022 Hematocrit (Bld) [Volume fraction] 47.2 % 37-47 [facility] - Chemistry and C hemistry - challengeOrdered By: Dr. Hull on 06-30-2022 ALP [Catalytic activity/Vol] 74 U/L 45-117 [facility] ALT [Catalytic activity/Vol] 21 U/L 13-56 [facility] CO2 [Moles/Vol] 23.0 mmol/L 21.0-32.0 [facility] Globulin (S) [Mass/Vol] 3.4 g/dL 2.2-4.2 [facility] Urea nitrogen/Creatinine [Mass ratio] 18.2 mg/mg 10-20 [facility] - Hematology and Cell countsOrdered By: Dr. Hull on 06-30-2022 Erythrocyte distribution width (RBC) [Entitic vol] 47.4 fL 35.1-43.9 [facility] Erythrocyte distribution width (RBC) [Ratio] 13.2 % 11.6-14.6 [facility] Immature granulocytes/100 WBC (Bld) 0.900 % 0.0-0.9 [facility] Comment on above: IG% - Immature Granu locytes (promyelocytes, myelocytes and metamyelocytes) > 1% indicates that a LEFT SHIFT is Present. MCH (RBC) [Entitic mass] 32.4 pg 27.0-32.0 [facility] Nucleated RBC/100 WBC (Bld) [Ratio] 0 % 0-5 [facility] MCHC Auto (RBC) [Mass/Vol]Or dered By: Dr. Hull on 06-30-2022 MCHC (RBC) [Mass/Vol] 33.3 g/dL 32-36 [facility] No Panel InformationOrdered By: Dr. Hull on 06-30-2022 Estimated GFR (MDRD) Amer 48 mL/min >60 [facility] Comment on above: GFR Calc Estimated GFR (MDRD) Non-Af Amer 39 mL/min >60 [facility] Comment on above: Non- GFR Calc Thyroid Stimulating Hormone (TSH) 3.20 uIU/mL 0.358-3.74 [facility] Vitamin D 25-Hydroxy 33.6 ng/mL [facility] [place] Comment on above: Vitamin D 25(OH) Sta tus Range Deficiency <20 ng/mL (50nmol/L) Insufficiency 20 - 30 ng/mL (50 - 75 nmol/L) Sufficiency 30 - 100 ng/mL (75 - 250 nmol/L) Toxicity >100 ng/mL (>250 nmol/L) Platelets bldOrdered By: Dr. Hull on 06-30-2022 Platelets (Bld) [#/Vol] 252 10*3/uL 150-450 [facility] Serum or plasma albumin leah urement (mass/volume)Ordered By: Dr. Hull on 06-30-2022 Albumin [Mass/Vol] 3.5 g/dL 3.2-5.0 [facility] Serum or plasma albumin/glob ulin mass ratioOrdered By: Dr. Hull on 06-30-2022 Albumin/Globulin [Mass ratio] 1.0 {ratio} 0.9-2.4 [facility] Serum or plasma calcium leah urement (mass/volume)Ordered By: Dr. Hull on 06-30-2022 Calcium [Mass/Vol] 9.0 mg/dL 8.5-10.1 [facility] Serum or plasma creatinine m easurement (mass/volume)Ordered By: Dr. Hull on 06-30-2022 Creatinine [Mass/Vol] 1.37 mg/dL 0.55-1.02 [facility] Comment on above: The validity of the calculated GFR & GFRAA in patients over 70 years has not been determined. Clinical correlation is essential. Serum or plasma urea nitroge n measurement (mass/volume)Ordered By: Dr. Hull on 06-30-2022 Urea nitrogen [Mass/Vol] 25 mg/dL 7-18 [facility] Serum or plasma uric acid me asurement (mass/volume)Ordered By: Dr. Hull on 06-30-2022 Urate [Mass/Vol] 3.9 mg/dL 2.6-6.0 [facility] Comment on above: The drugs N-Acetylcy steine and Metamizole may falsely depress this assay. Thin prep Papanicolaou smear with manual screeningOrdered By: Dr. Hull on 06-30-2022 Thin prep Papanicolaou smear with manual screening 25 U/L 15-37 [facility] Thin prep Papanicolaou smear with manual screening 9 5-15 [facility] Absolute lymphocyte counton 12-30-2021 Lymphocytes Auto (Unsp spec) [#/Vol] 1.81 10*3/uL 0.83-4.51 [facility] Work Phone: Basophil percentageon 2021 Basophils/100 WBC (Bld) 1.1 % 0-1 [facility] Work Phone: Bilirubin [Mass/Vol] 1.10 mg/dL 0.20-1.00 [facility] [place] Work Phone: Comment on above: For patients on eltr ombopag therapy, use of Dimension [place] TBIL is not recommended. Chloride [Moles/Vol] 108 mmol/L 98-107 [facility] [place] Work Phone: Eosinophils/100 WBC (Bld) 1.4 % 0-5 [facility] Work Phone: Glucose [Mass/Vol] 104 mg/dL 74-106 [facility] Work Phone: Comment on above: Fasting Glucose resu lt from 100 to 125 mg/dL suggests IMPAIRED HOMEOSTASIS per A.D.A. criteria. Neutrophils (Bld) [#/Vol] 3.7 10*3/uL 2.0-7.7 [facility] Work Phone: Neutrophils/100 WBC (Bld) 55.7 % 47-70 [facility] Work Phone: Potassium [Moles/Vol] 4.1 mmol/L 3.5-5.1 [facility] Work Phone: Protein [Mass/Vol] 7.3 g/dL 6.4-8.2 [facility] Work Phone: Sodium [Moles/Vol] 138 mmol/L 136-145 [facility] Work Phone: WBC (Bld) [#/Vol] 6.6 10*3/uL 4.4-11.0 [facility] Work Phone: Blood erythrocytes count (nu mber/volume)on 12-30-2021 RBC (Bld) [#/Vol] 4.82 10*6/uL 4.2-5.4 [facility] Work Phone: Blood hemoglobin measurement (mass/volume)on 12-30-2021 Hemoglobin (Bld) [Mass/Vol] 15.4 g/dL 12.0-15.0 [facility] Work Phone: Blood lymphocytes/100 leukoc yteson 12-30-2021 Lymphocytes/100 WBC (Bld) 27.5 % 19-41 [facility] Work Phone: Blood monocytes/100 leukocyt eson 12-30-2021 Monocytes/100 WBC (Bld) 13.7 % 0-10 [facility] Work Phone: Blood platelet mean volumeon 12-30-2021 Platelet mean volume (Bld) [Entitic vol] 12.6 fL 6.2-12.0 [facility] Work Phone: Determination of erythrocyte mean corpuscular volume (MCV)on 12-30-2021 MCV (RBC) [Entitic vol] 96.3 fL 81-99 [facility] Work Phone: Hematocrit Auto (Bld) [Volum e fraction]on 12-30-2021 Hematocrit (Bld) [Volume fraction] 46.4 % 37-47 [facility] Work Phone: Laboratory - Chemistry and C hemistry - challengeon 12-30-2021 ALP [Catalytic activity/Vol] 78 U/L 45-117 [facility] Work Phone: ALT [Catalytic activity/Vol] 23 U/L 13-56 [facility] Work Phone: CO2 [Moles/Vol] 23.0 mmol/L 21.0-32.0 [facility] Work Phone: Globulin (S) [Mass/Vol] 3.9 g/dL 2.2-4.2 [facility] Work Phone: Urea nitrogen/Creatinine [Mass ratio] 19.0 mg/mg 10-20 [facility] Work Phone: Laboratory - Hematology and Cell countson 12-30-2021 Erythrocyte distribution width (RBC) [Entitic vol] 45.9 fL 35.1-43.9 [facility] Work Phone: Erythrocyte distribution width (RBC) [Ratio] 13.0 % 11.6-14.6 [facility] Work Phone: Immature granulocytes/100 WBC (Bld) 0.600 % 0.0-0.9 [facility] Work Phone: Comment on above: IG% - Immature Granu locytes (promyelocytes, myelocytes and metamyelocytes) > 1% indicates that a LEFT SHIFT is Present. MCH (RBC) [Entitic mass] 32.0 pg 27.0-32.0 [facility] Work Phone: Nucleated RBC/100 WBC (Bld) [Ratio] 0 % 0-5 [facility] Work Phone: MCHC Auto (RBC) [Mass/Vol]on 12-30-2021 MCHC (RBC) [Mass/Vol] 33.2 g/dL 32-36 [facility] Work Phone: No Panel Informationon 12-30 Estimated GFR (MDRD) Amer 58 mL/min >60 [facility] Work Phone: Comment on above: GFR Calc Estimated GFR (MDRD) Non-Af Amer 48 mL/min >60 [facility] Work Phone: Comment on above: Non- GFR Calc Thyroid Stimulating Hormone (TSH) 2.92 uIU/mL 0.358-3.74 [facility] Work Phone: Vitamin D 25-Hydroxy 18.4 ng/mL [facility] [place] Work Phone: Comment on above: Vitamin D 25(OH) Sta tus Range Deficiency <20 ng/mL (50nmol/L) Insufficiency 20 - 30 ng/mL (50 - 75 nmol/L) Sufficiency 30 - 100 ng/mL (75 - 250 nmol/L) Toxicity >100 ng/mL (>250 nmol/L) Platelets bldon 12-30-2021 Platelets (Bld) [#/Vol] 222 10*3/uL 150-450 [facility] Work Phone: Serum or plasma albumin leah urement (mass/volume)on 12-30-2021 Albumin [Mass/Vol] 3.4 g/dL 3.2-5.0 [facility] Work Phone: Serum or plasma albumin/glob ulin mass ratioon 12-30-2021 Albumin/Globulin [Mass ratio] 0.9 {ratio} 0.9-2.4 [facility] Work Phone: Serum or plasma calcium leah urement (mass/volume)on 12-30-2021 Calcium [Mass/Vol] 9.1 mg/dL 8.5-10.1 [facility] Work Phone: Serum or plasma creatinine m easurement (mass/volume)on 12-30-2021 Creatinine [Mass/Vol] 1.16 mg/dL 0.55-1.02 [facility] Work Phone: Comment on above: The validity of the calculated GFR & GFRAA in patients over 70 years has not been determined. Clinical correlation is essential. Serum or plasma urea nitroge n measurement (mass/volume)on 12-30-2021 Urea nitrogen [Mass/Vol] 22 mg/dL 7-18 [facility] Work Phone: Serum or plasma uric acid me asurement (mass/volume)on 12-30-2021 Urate [Mass/Vol] 4.1 mg/dL 2.6-6.0 [facility] Work Phone: Comment on above: The drugs N-Acetylcy steine and Metamizole may falsely depress this assay. Thin prep Papanicolaou smear with manual screeningon 12-30-2021 Thin prep Papanicolaou smear with manual screening 22 U/L 15-37 [facility] Work Phone: Thin prep Papanicolaou smear with manual screening 7 5-15 [facility] Work Phone: Absolute lymphocyte counton 06-30-2021 Lymphocytes Auto (Unsp spec) [#/Vol] 1.74 10*3/uL 0.83-4.51 [facility] Work Phone: Basophil percentageon 2021 Basophils/100 WBC (Bld) 1.4 % 0-1 [facility] Work Phone: Bilirubin [Mass/Vol] 0.90 mg/dL 0.20-1.00 [facility] [place] Work Phone: Comment on above: For patients on eltr ombopag therapy, use of Dimension [place] TBIL is not recommended. Chloride [Moles/Vol] 106 mmol/L 98-107 [facility] [place] Work Phone: Eosinophils/100 WBC (Bld) 1.1 % 0-5 [facility] Work Phone: Glucose [Mass/Vol] 112 mg/dL 74-106 [facility] Work Phone: Comment on above: Fasting Glucose resu lt from 100 to 125 mg/dL suggests IMPAIRED HOMEOSTASIS per A.D.A. criteria. Neutrophils (Bld) [#/Vol] 3.8 10*3/uL 2.0-7.7 [facility] Work Phone: Neutrophils/100 WBC (Bld) 59.2 % 47-70 [facility] Work Phone: Potassium [Moles/Vol] 4.4 mmol/L 3.5-5.1 [facility] Work Phone: Protein [Mass/Vol] 7.3 g/dL 6.4-8.2 [facility] Work Phone: Sodium [Moles/Vol] 137 mmol/L 136-145 [facility] Work Phone: WBC (Bld) [#/Vol] 6.4 10*3/uL 4.4-11.0 [facility] Work Phone: Blood erythrocytes count (nu mber/volume)on 06-30-2021 RBC (Bld) [#/Vol] 4.95 10*6/uL 4.2-5.4 [facility] Work Phone: Blood hemoglobin measurement (mass/volume)on 06-30-2021 Hemoglobin (Bld) [Mass/Vol] 15.7 g/dL 12.0-15.0 [facility] Work Phone: Blood lymphocytes/100 leukoc yteson 06-30-2021 Lymphocytes/100 WBC (Bld) 27.3 % 19-41 [facility] Work Phone: Blood monocytes/100 leukocyt eson 06-30-2021 Monocytes/100 WBC (Bld) 10.7 % 0-10 [facility] Work Phone: Blood platelet mean volumeon 06-30-2021 Platelet mean volume (Bld) [Entitic vol] 12.7 fL 6.2-12.0 [facility] Work Phone: Determination of erythrocyte mean corpuscular volume (MCV)on 06-30-2021 MCV (RBC) [Entitic vol] 96.6 fL 81-99 [facility] Work Phone: Hematocrit Auto (Bld) [Volum e fraction]on 06-30-2021 Hematocrit (Bld) [Volume fraction] 47.8 % 37-47 [facility] Work Phone: Laboratory - Chemistry and C hemistry - challengeon 06-30-2021 ALP [Catalytic activity/Vol] 71 U/L 45-117 [facility] Work Phone: ALT [Catalytic activity/Vol] 26 U/L 13-56 [facility] Work Phone: CO2 [Moles/Vol] 25.0 mmol/L 21.0-32.0 [facility] Work Phone: Globulin (S) [Mass/Vol] 3.7 g/dL 2.2-4.2 [facility] Work Phone: Urea nitrogen/Creatinine [Mass ratio] 14.7 mg/mg 10-20 [facility] Work Phone: Laboratory - Hematology and Cell countson 06-30-2021 Erythrocyte distribution width (RBC) [Entitic vol] 46.4 fL 35.1-43.9 [facility] Work Phone: Erythrocyte distribution width (RBC) [Ratio] 13.1 % 11.6-14.6 [facility] Work Phone: Immature granulocytes/100 WBC (Bld) 0.300 % 0.0-0.9 [facility] Work Phone: Comment on above: IG% - Immature Granu locytes (promyelocytes, myelocytes and metamyelocytes) > 1% indicates that a LEFT SHIFT is Present. MCH (RBC) [Entitic mass] 31.7 pg 27.0-32.0 [facility] Work Phone: Nucleated RBC/100 WBC (Bld) [Ratio] 0 % 0-5 [facility] Work Phone: MCHC Auto (RBC) [Mass/Vol]on 06-30-2021 MCHC (RBC) [Mass/Vol] 32.8 g/dL 32-36 [facility] Work Phone: No Panel Informationon 06-30 Estimated GFR (MDRD) Amer 51 mL/min >60 [facility] Work Phone: Comment on above: GFR Calc Estimated GFR (MDRD) Non-Af Amer 42 mL/min >60 [facility] Work Phone: Comment on above: Non- GFR Calc Thyroid Stimulating Hormone (TSH) 2.54 uIU/mL 0.358-3.74 [facility] Work Phone: Vitamin D 25-Hydroxy 24.2 ng/mL [facility] [place] Work Phone: Comment on above: Vitamin D 25(OH) Sta tus Range Deficiency <20 ng/mL (50nmol/L) Insufficiency 20 - 30 ng/mL (50 - 75 nmol/L) Sufficiency 30 - 100 ng/mL (75 - 250 nmol/L) Toxicity >100 ng/mL (>250 nmol/L) Platelets bldon 06-30-2021 Platelets (Bld) [#/Vol] 242 10*3/uL 150-450 [facility] Work Phone: Serum or plasma albumin leah urement (mass/volume)on 06-30-2021 Albumin [Mass/Vol] 3.6 g/dL 3.2-5.0 [facility] Work Phone: Serum or plasma albumin/glob ulin mass ratioon 06-30-2021 Albumin/Globulin [Mass ratio] 1.0 {ratio} 0.9-2.4 [facility] Work Phone: Serum or plasma calcium leah urement (mass/volume)on 06-30-2021 Calcium [Mass/Vol] 9.2 mg/dL 8.5-10.1 [facility] Work Phone: Serum or plasma creatinine m easurement (mass/volume)on 06-30-2021 Creatinine [Mass/Vol] 1.29 mg/dL 0.55-1.02 [facility] Work Phone: Comment on above: The validity of the calculated GFR & GFRAA in patients over 70 years has not been determined. Clinical correlation is essential. Serum or plasma urea nitroge n measurement (mass/volume)on 06-30-2021 Urea nitrogen [Mass/Vol] 19 mg/dL 7-18 [facility] Work Phone: Serum or plasma uric acid me asurement (mass/volume)on 06-30-2021 Urate [Mass/Vol] 4.3 mg/dL 2.6-6.0 [facility] Work Phone: Comment on above: The drugs N-Acetylcy steine and Metamizole may falsely depress this assay. Thin prep Papanicolaou smear with manual screeningon 06-30-2021 Thin prep Papanicolaou smear with manual screening 23 U/L 15-37 [facility] Work Phone: Thin prep Papanicolaou smear with manual screening 6 5-15 [facility] Work Phone: Office Visiton 01-04-2017 Dietary management education, guidance, and counseling (procedure) yes Invalid Interpretation Code [facility] Work Phone: Documentation of current medications (procedure) Done Invalid Interpretation Code [facility] Work Phone: Tobacco use CPHS Never smoker Invalid Interpretation Code [facility] Work Phone: Office Visit: [facility] 12-30-19 Documentation of current medications (procedure) Done Invalid Interpretation Code [facility] Work Phone: Fall risk assessment No Invalid Interpretation Code [facility] Work Phone: Protein mass conc Done Invalid Interpretation Code [facility] Work Phone: Office Visiton 09-28-2016 Dietary management education, guidance, and counseling (procedure) yes Invalid Interpretation Code [facility] Work Phone: Documentation of current medications (procedure) Done Invalid Interpretation Code [facility] Work Phone: Tobacco smoking status NHIS Never smoker Invalid Interpretation Code [facility] Work Phone: Tobacco use CPHS Never smoker Invalid Interpretation Code [facility] Work Phone: Office Visiton 06-29-2016 Dietary management education, guidance, and counseling (procedure) yes Invalid Interpretation Code [facility] Work Phone: Documentation of current medications (procedure) Done Invalid Interpretation Code [facility] Work Phone: Tobacco use CPHS Never smoker Invalid Interpretation Code [facility] Work Phone: Clinical Lists Update: Prelo lead nurse 11-18-2015 Left ventricular Ejection fraction 65 % Invalid Interpretation Code [facility] Work Phone: Lab Report: Lipid Profileon 11-12-2015 Cholesterol 194 mg/dL Invalid Interpretation Code 200 [facility] Work Phone: HDL Cholesterol 45 mg/dL Invalid Interpretation Code [facility] Work Phone: LDL Cholesterol 123 mg/dL Invalid Interpretation Code 0-130 [facility] Work Phone: Triglyceride 132 mg/dL Invalid Interpretation Code [facility] Work Phone: very low density lipoproteins 26 mg/dL Invalid Interpretation Code 5-40 [facility] Work Phone: Lab Report: Liver Profileon 11-12-2015 Alanine aminotransferase (ALT) 19 U/L Invalid Interpretation Code 12-78 [facility] Work Phone: Albumin 3.6 g/dL Invalid Interpretation Code 3.4-5.0 [facility] Work Phone: Alkaline phosphatase (ALP) 72 U/L Invalid Interpretation Code 50-136 [facility] Work Phone: ALP enzyme act/vol (Bld) 72 U/L Invalid Interpretation Code 50-136 [facility] Work Phone: Aspartate aminotransferase (AST) 17 U/L Invalid Interpretation Code 15-37 [facility] Work Phone: Bilirubin (direct) 0.17 mg/dL Invalid Interpretation Code 0.00-0.30 [facility] Work Phone: Bilirubin (total) 0.90 mg/dL Invalid Interpretation Code 0.20-1.00 [facility] Work Phone: Globulin 3.7 g/dL High 2.3-3.5 [facility] Work Phone: Protein 7.3 g/dL Invalid Interpretation Code 6.4-8.2 [facility] Work Phone: Vital Signs Date Time Vital Sign Value Performing Clinician Angle euceda 01-04-2024 11:57-0400 Body height 157.5 cm Mónica Maldonado CNP Work Phone: [facility] 01-04-2024 11:57-0400 Body mass index (BMI) [Ratio] 43.09 kg/m2 Mónica Maldonado CNP Work Phone: [facility] 01-04-2024 11:57-0400 Body weight 106.87 kg Mónica Maldonado CNP Work Phone: [facility] 01-04-2024 11:57-0400 Diastolic blood pressure 64 mm[Hg] Mónica Maldonado CNP Work Phone: [facility] 01-04-2024 11:57-0400 Heart rate 68 /min Mónica David DRY HOUSE WHEELER - TURNING MACHINE OPERATOR HELPER Work Phone: [facility] 01-04-2024 11:57-0400 SaO2% (BldA) [Mass fraction] 97 % Mónica David DRY HOUSE WHEELER - TURNING MACHINE OPERATOR HELPER Work Phone: [facility] 01-04-2024 11:57-0400 Systolic blood pressure 112 mm[Hg] Mónica David DRY HOUSE WHEELER - TURNING MACHINE OPERATOR HELPER Work Phone: [facility] 12-26-2023 11:34-0400 Body temperature 96.49 [degF] Harjeet Huffman MD Work Phone: [facility] 12-26-2023 11:34-0400 Diastolic blood pressure 82 mm[Hg] Harjeet Huffman MD Work Phone: [facility] 12-26-2023 11:34-0400 Heart rate 87 /min Harjeet Huffman MD Work Phone: [facility] 12-26-2023 11:34-0400 Respiratory rate 22 /min Harjeet Huffman MD Work Phone: [facility] 12-26-2023 11:34-0400 SaO2% (BldA) [Mass fraction] 98 % Harjeet Huffman MD Work Phone: [facility] 12-26-2023 11:34-0400 Systolic blood pressure 148 mm[Hg] Harjeet Huffman MD Work Phone: [facility] 12-26-2023 09:27-0400 Body height 157.5 cm Harjeet Huffman MD Work Phone: [facility] 12-26-2023 09:27-0400 Body mass index (BMI) [Ratio] 45.91 kg/m2 Harjeet Huffman MD Work Phone: [facility] 12-26-2023 09:27-0400 Body weight 113.85 kg Harjeet Huffman MD Work Phone: [facility] 12-12-2023 13:57-0400 Diastolic blood pressure 76 mm[Hg] [facility] 12-12-2023 13:57-0400 Heart rate 73 /min [facility] 12-12-2023 13:57-0400 Respiratory rate 18 /min [facility] 12-12-2023 13:57-0400 Systolic blood pressure 128 mm[Hg] [facility] 12-12-2023 12:30-0400 Body temperature 96.8 [degF] Arlene Velez DRY HOUSE WHEELER - TURNING MACHINE OPERATOR HELPER Work Phone: [facility] 12-12-2023 12:30-0400 Diastolic blood pressure 64 mm[Hg] Arlene Velez DRY HOUSE WHEELER - TURNING MACHINE OPERATOR HELPER Work Phone: [facility] 12-12-2023 12:30-0400 Heart rate 50 /min Arlene Velez DRY HOUSE WHEELER - TURNING MACHINE OPERATOR HELPER Work Phone: [facility] 12-12-2023 12:30-0400 Respiratory rate 18 /min Arlene Velez DRY HOUSE WHEELER - TURNING MACHINE OPERATOR HELPER Work Phone: [facility] 12-12-2023 12:30-0400 Systolic blood pressure 113 mm[Hg] Arlene Velez DRY HOUSE WHEELER - TURNING MACHINE OPERATOR HELPER Work Phone: [facility] 12-12-2023 07:34-0400 Body temperature 97 [degF] [facility] 11-21-2023 14:17-0400 Body height 157.5 cm Juan Reed DO Work Phone: [facility] 11-21-2023 14:17-0400 Body mass index (BMI) [Ratio] 43.15 kg/m2 Juan Reed DO Work Phone: [facility] 11-21-2023 14:17-0400 Body weight 107 kg Juan Reed DO Work Phone: [facility] 11-21-2023 14:17-0400 Diastolic blood pressure 82 mm[Hg] Juan Reed DO Work Phone: [facility] 11-21-2023 14:17-0400 Heart rate 58 /min Juan Reed DO Work Phone: [facility] 11-21-2023 14:17-0400 SaO2% (BldA) [Mass fraction] 98 % Juan Reed DO Work Phone: [facility] 11-21-2023 14:17-0400 Systolic blood pressure 136 mm[Hg] Juan Reed DO Work Phone: [facility] 11-21-2023 14:01-0400 Body height 157.5 cm Harjeet Huffman MD Work Phone: [facility] 11-21-2023 14:01-0400 Body mass index (BMI) [Ratio] 43.31 kg/m2 Harjeet Huffman MD Work Phone: [facility] 11-21-2023 14:01-0400 Body weight 107.41 kg Harjeet Huffman MD Work Phone: [facility] 11-21-2023 14:01-0400 Diastolic blood pressure 82 mm[Hg] Harjeet Huffman MD Work Phone: [facility] 11-21-2023 14:01-0400 Heart rate 58 /min Harjeet Huffman MD Work Phone: [facility] 11-21-2023 14:01-0400 SaO2% (BldA) [Mass fraction] 98 % Harjeet Huffman MD Work Phone: [facility] 11-21-2023 14:01-0400 Systolic blood pressure 136 mm[Hg] Harjeet Huffman MD Work Phone: [facility] 12-29-2016 10:24-0400 BMI (Body Mass Index) 38.01 kg/m2 [facility] Work Phone: 12-29-2016 10:24-0400 BP Diastolic 80 mm[Hg] [facility] Work Phone: 12-29-2016 10:24-0400 BP Systolic 128 mm[Hg] [facility] Work Phone: 12-29-2016 10:24-0400 Height 161.29 cm [facility] Work Phone: 12-29-2016 10:24-0400 Pulse (Heart Rate) 72 /min [facility] Work Phone: 12-29-2016 10:24-0400 Respiratory Rate 20 /min [facility] Work Phone: 12-29-2016 10:24-0400 Weight 98.88 kg [facility] Work Phone: 05-26-2016 14:01-0500 BMI (Body Mass Index) 37.83 kg/m2 [facility] Work Phone: 05-26-2016 14:01-0500 BP Diastolic 76 mm[Hg] [facility] Work Phone: 05-26-2016 14:01-0500 BP Systolic 144 mm[Hg] [facility] Work Phone: 05-26-2016 14:01-0500 Height 161.29 cm [facility] Work Phone: 05-26-2016 14:01-0500 Pulse (Heart Rate) 76 /min [facility] Work Phone: 05-26-2016 14:01-0500 Respiratory Rate 18 /min [facility] ter [facility] Work Phone: 05-26-2016 14:01-0500 Weight 98.43 kg [facility] Work Phone: 11-10-2015 14:49-0400 BSA (Body Surface Area) 2.03 m2 [facility] Work Phone: Encounters Encounter Date Encounter Type Care Provider Facility Start: 08-14-2024 ambulatory Joe PORTILLO Fa cility:[facility] Start: 08-14-2024 [facility] Start: 07-30-2024 End: 07-30-[address] Scott Hull MD Work Phone: [facility] Work Phone: Start: 07-30-2024 End: 07-30-2024 [facility] Start: 07-30-2024 End: 07-30-2024 ambulatory Joe PORTILLO Facility:[facility] Start: 07-15-2024 [facility] Start: 07-15-2024 End: 07-15-2024 ambulatory Joe PORTILLO Facility:[facility] Start: 07-02-2024 End: 07-02-[address] Scott Hull MD Work Phone: [facility] Work Phone: Start: 07-02-2024 End: 07-02-2024 [facility] Start: 07-02-2024 End: 07-02-2024 ambulatory Scott Hull Facility:[facility] Start: 06-18-2024 End: 06-18-2024 [facility] Start: 06-18-2024 [facility] Start: 06-18-2024 End: 06-18-2024 ambulatory Scott Chi Kurtis Facility:[facility] Start: 06-04-2024 End: 06-04-[address] Scott Hull MD Work Phone: [facility] Work Phone: Start: 06-04-2024 End: 06-04-2024 [facility] Start: 06-04-2024 End: 06-04-2024 ambulatory Scott Chi Kurtis Facility:[facility] Start: 05-28-2024 End: 05-28-2024 ambulatory Scott Chi Kurtis Facility:[facility] Start: 05-28-2024 End: 05-28-[address] Joe Sanchez MD -[facility] Work Phone: Start: 05-16-2024 End: 05-16-2024 ambulatory Scott Chi Kurtis Facility:[facility] Start: 05-16-2024 End: 05-16-2024 Patient encounter procedure Eriberto VILLALOBOS -[facility] Work Phone: Start: 05-07-2024 ambulatory Scott Chi Kurtis Facility:[facility] Start: 05-07-2024 [facility] Start: 04-22-2024 ambulatory Scott Chi Kurtis Facility:[facility] Start: 04-22-2024 [facility] Start: 04-18-2024 ambulatory Mónica VILLALOBOS Facility:[facility] Start: 04-09-2024 End: 04-09-2024 [facility] Start: 04-09-2024 End: 04-09-2024 ambulatory Joe PORTILLO Facility:[facility] Start: 04-02-2024 End: 04-02-2024 ambulatory Scott Chi Kurtis Facility:[facility] Start: 04-02-2024 End: 04-02-[address] Joe Sanchez MD -[facility] Work Phone: Start: 03-15-2024 End: 03-15-2024 ambulatory Scott Chi Kurtis Facility:[facility] Start: 03-15-2024 End: 03-15-2024 Patient encounter procedure Sara MONTEMAYOR -[facility] Work Phone: Start: 03-15-2024 ambulatory Joe PORTILLO Fa cility:[facility] Start: 03-15-2024 Registered Referred Joe Sanchez MD [facility] Start: 03-08-2024 ambulatory Joe Sanchez OLS Fa cility:[facility] Start: 03-08-2024 Registered Referred Joe Sanchez MD [facility] Start: 03-01-2024 End: 03-01-2024 [facility] Start: 03-01-2024 End: 03-01-2024 ambulatory Joe Sanchez OLS Facility:[facility] Start: 02-27-2024 End: 02-27-2024 ambulatory Scott Chi Kurtis Facility:[facility] Start: 02-27-2024 End: 02-27-2024 Patient encounter procedure Sara MONTEMAYOR -[facility] Work Phone: Start: 02-23-2024 End: 02-23-2024 ambulatory Joe Sanchez OLS Facility:[facility] Start: 02-16-2024 ambulatory Scott Chi Kurtis Facility:[facility] Start: 02-09-2024 ambulatory Scott Chi Kurtis Facility:[facility] Start: 02-07-2024 End: 02-07-2024 ambulatory Scott Chi Kurtis Facility:[facility] Start: 02-02-2024 ambulatory Scott Chi Kurtis Facility:[facility] Start: 01-29-2024 ambulatory Scott Chi Kurtis [facility] Start: 01-26-2024 ambulatory Scott Chi Kurtis Facility:[facility] Start: 01-22-2024 ambulatory Scott Chi Kurtis Facility:[facility] Start: 01-19-2024 ambulatory Scott Chi Kurtis Facility:[facility] Start: 01-18-2024 End: 01-18-2024 ambulatory Scott Chi Kurtis Facility:[facility] Start: 01-16-2024 End: 01-16-2024 ambulatory Efewongbe Oleghe Facility:[facility] Start: 01-15-2024 End: 01-15-2024 ambulatory Scott Chi Kurtis Facility:[facility] Start: 01-12-2024 ambulatory Scott Chi Kurtis Facility:[facility] Start: 01-11-2024 End: 01-11-2024 ambulatory Scott Chi Kurtis Facility:[facility] Start: 01-08-2024 ambulatory Scott Chi Kurtis [facility] Start: 01-08-2024 ambulatory Scott Chi Kurtis [facility] Start: 01-06-2024 ambulatory Scott Chi Kurtis [facility] Start: 01-06-2024 End: 01-10-2024 Evaluation and management of inpatient Maribel Vizcarra Facility:[facility] Start: 01-05-2024 ambulatory Maribel Vizcarra Facility :[facility] Start: 01-04-2024 End: 02-22-2024 Telephone encounter Mónica David DRY HOUSE WHEELER - TURNING MACHINE OPERATOR HELPER Work Phone: [facility] [employer] [place] Comment on above: Orders Start: 01-04-2024 End: 01-04-2024 Office outpatient visit 25 minutes Mónica David DRY HOUSE WHEELER - TURNING MACHINE OPERATOR HELPER Work Phone: [facility] [employer] [place] Comment on above: Chronic atrial fibri llation (HCC) (Primary Dx); Severe aortic stenosis; Stage 3a chronic kidney disease (HCC); Left heart failure (HCC) Start: 01-04-2024 End: 01-04-20[facility] Start: 12-25-2023 End: 12-26-2023 Evaluation and management of inpatient Harjeet Huffman MD Work Phone: [facility] Cardiac Thoracic Vascular Intensive Care Unit CTV ICU T1 Comment on above: Severe aortic stenos is (Primary Dx); Nonrheumatic aortic valve stenosis Start: 12-22-2023 End: 12-22-2023 ambulatory Arlene Velez DRY HOUSE WHEELER - TURNING MACHINE OPERATOR HELPER Work Phone: [facility] [employer] [place] Comment on above: Severe aortic stenos is (Primary Dx) Start: 12-19-2023 End: 12-19-2023 ambulatory Scott Chi Kurtis Facility:[facility] Start: 12-12-2023 End: 12-12-2023 Office outpatient visit 25 minutes Mónica David DRY HOUSE WHEELER - TURNING MACHINE OPERATOR HELPER Work Phone: [facility] [employer] [place] Comment on above: Chronic atrial fibri llation (HCC) (Primary Dx); Nonrheumatic aortic valve stenosis; Adverse effect of contrast media, initial encounter Start: 12-12-2023 End: 12-12-2023 Subsequent hospital visit by physician Arlene Maldonado CNP Work Phone: [facility] CT Imaging Comment on above: Nonrheumatic aortic valve stenosis Start: 12-12-2023 End: 12-12-2023 ambulatory Harjeet Huffman MD Work Phone: [facility] Comment on above: Renal failure, unspe cified chronicity; Stenosis of prosthetic aortic valve, initial encounter Start: 12-04-2023 End: 12-04-2023 ambulatory Scott Chi Kurtis Facility:[facility] Start: 11-21-2023 End: 11-21-2023 Office outpatient new 45 minutes Thaddeus Mckeon MD Work Phone: [facility] Comment on above: Nonrheumatic aortic valve stenosis (Primary Dx); Chronic atrial fibrillation (HCC); Short-term memory loss; Drug-induced bradycardia; Polypharmacy Start: 11-21-2023 End: 11-21-2023 Office outpatient new 60 minutes Juan Reed DO Work Phone: [facility] Comment on above: Stenosis of prosthet ic aortic valve, initial encounter (Primary Dx) LV dysfunction (Prim logan Dx); Stenosis of prosthetic aortic valve, initial encounter Start: 11-21-2023 End: 11-21-2023 ambulatory THADDEUS MCKEON [facility] Start: 11-08-2023 End: 11-09-2023 ambulatory Scott Chi Kurtis Facility:[facility] Start: 11-08-2023 End: 11-08-2023 ambulatory Scott Chi Kurtis Facility:[facility] Start: 09-22-2023 ambulatory Scott Chi Kurtis Facility:[facility] Start: 09-22-2023 End: 09-22-2023 ambulatory Scott Chi Kurtis Facility:[facility] Start: 09-14-2023 End: 09-14-2023 ambulatory Scott Chi Kurtis Facility:[facility] Start: 07-13-2023 End: 07-13-2023 ambulatory [facility] Work Phone: Start: 07-13-2023 End: 07-13-2023 Patient encounter procedure [facility] Work Phone: Start: 01-05-2023 End: 01-05-2023 ambulatory [facility] Work Phone: Start: 01-05-2023 End: 01-05-2023 Patient encounter procedure [facility], Phy Office 3rd Flr Start: 06-30-2022 End: 06-30-2022 ambulatory [facility] Work Phone: Start: 06-30-2022 End: 06-30-2022 Patient encounter procedure [facility], Phy Office 3rd Flr Start: 12-30-2021 End: 12-30-2021 ambulatory [facility] Work Phone: Start: 12-30-2021 End: 12-30-2021 [facility] Start: 06-30-2021 End: 06-30-2021 [facility] Start: 09-11-2017 Patient encounter status [facility] Procedures Date Procedure Procedure Detail Performing Clinician [...] w or wo fol wcon,Doppler Mónica David DRY HOUSE WHEELER - TURNING MACHINE OPERATOR HELPER Work Phone: Start: 12-26-2023 Ecg routine ecg w/le ast 12 lds trcg only w/o i&r Mónica David DRY HOUSE WHEELER - TURNING MACHINE OPERATOR HELPER Work Phone: Start: 12-26-2023 Basic metabolic pane l calcium total Mónica David DRY HOUSE WHEELER - TURNING MACHINE OPERATOR HELPER Work Phone: Start: 12-25-2023 Echo transthorc r-t 2d w/wo m-mode rec f-up/lmtd Harjeet Huffman MD Work Phone: Start: 12-25-2023 Basic metabolic pane l calcium total Mónica David DRY HOUSE WHEELER - TURNING MACHINE OPERATOR HELPER Work Phone: Start: 12-25-2023 Ecg routine ecg w/le ast 12 lds trcg only w/o i&r Mónica David DRY HOUSE WHEELER - TURNING MACHINE OPERATOR HELPER Work Phone: Start: 12-25-2023 OXYGEN THERAPY Mónica David APRN - TURNING MACHINE OPERATOR HELPER Work Phone: Start: 12-25-2023 Cardiac catheterizat ion study Harjeet Huffman MD Work Phone: Start: 12-25-2023 Antibody screen HARJEET DOWNING Comment on above: Performed By: #### L [id number] #### Hanger Off: AIDE RUEDA ([phone]) [facility] BLOOD [facility] ([facility]) [address] [place] [address] Start: 12-25-2023 End: 12-25-2023 Blood typing serologic rh (d) Tien Cornell MD Work Phone: Start: 12-25-2023 End: 12-25-2023 TRANSCATHETER AORTIC VALVE REPLACEMENT (TAVR) - OR Tien Cornell MD Work Phone: Start: 12-12-2023 Antibody screen HARJEET DOWNING Comment on above: Performed By: #### L [id number] ####Hanger Off: AIDE RUEDA ([phone])[facility] BLOOD [facility] ([facility])[address] [place] [address] Start: 12-12-2023 Blood typing serologic abo Harjeet [...] DTaP/Tdap/Td Vaccines (2 - Td or Tdap) [facility] Start: 12-25-2024 Creatinine measurement Creatinine Level [facility] Start: 12-25-2024 Echocardiography Echocardiogram [facility] Start: 12-25-2024 Potassium measurement Potassium Level [facility] Start: 03-20-2024 Medicare Advantage Annual Wellness Visit Medicare [facility] Annual Wellness Visit [facility] Start: 01-04-2024 End: 01-04-2024 Patient encounter procedure 01/04/2024 12:00 PM EDT Office Visit [facility] [place] [address] [place] [id number] Mónica David, DRY HOUSE WHEELER - TURNING MACHINE OPERATOR HELPER [address] [place] [address] [facility] Start: 12-25-2023 End: 12-25-2023 Admission to same day surgery center 12/25/2023 9:15 AM EDT - 12/25/2023 11:00 AM EDT Surgery [facility] OR [address] [place] [id number] Harjeet Huffman MD [address] [place] [address] TRANSCATHETER AORTIC VALVE REPLACEMENT, TRANSTHORACIC ECHOCARDIOGRAM [facility] Comment on above: TRANSCATHETER AORTIC VALVE REPLACEMENT, TRANSTHORACIC ECHOCARDIOGRAM Start: 12-25-2023 End: 12-25-2023 Anesthesia consultation 12/25/2023 9:15 AM EDT Anesthesia Event [facility] [address] [place] [address] Carolina Waldron, DRY HOUSE WHEELER - TURNING MACHINE OPERATOR HELPER [facility] [address] [place] [address] [facility] Start: 12-25-2023 Subsequent hospital visit by physician 12/25/2023 9:15 AM EDT Hospital Encounter [facility] [address] [place] [phone] Harjeet Huffman MD [address] [place] [address] Nonrheumatic aortic valve stenosis [facility] Comment on above: Nonrheumatic aortic valve stenosis Start: 12-25-2023 End: 12-25-2023 TRANSCATHETER AORTIC VALVE REPLACEMENT (TAVR) - OR TRANSCATHETER AORTIC VALVE REPLACEMENT (TAVR) - OR Nonrheumatic aortic valve stenosis 12/25/2023 9:15 AM EDT [facility] Start: 11-19-2023 COVID-19 Vaccine ( season) COVID-19 Vaccine () [facility] Start: 11-19-2023 COVID-19 Vaccine () COVID-19 Vaccine () [facility] Start: 11-19-2023 Influenza vaccination Influenza Vaccine (#1) [facility] Start: 03-20-2023 Medicare Advantage Annual Wellness Visit Medicare Advantage Annual Wellness Visit [facility] Start: 11-09-2020 Lipid panel Lipid Panel [facility] Start: 07-10-2017 End: 07-10-2017 Appointment Appointment [facility] Work Phone: Start: 01-05-2017 End: 01-09-2017 Nuclear stress test -Lexiscan Nuclear stress test -Lexiscan [facility] Work Phone: Start: 01-04-2017 End: 01-04-2017 Appointment Appointment [facility] Work Phone: Start: 01-03-2017 End: 01-05-2017 Nuclear stress test -exercise Nuclear stress test -exercise [facility] Work Phone: Start: 12-29-2016 End: 12-29-2016 DJN DJN [facility] Work Phone: Start: 12-29-2016 End: 12-29-2016 Echocardiography Echocardiogram (complete) [facility] Work Phone: Start: 12-29-2016 End: 12-29-2016 Follow Up Appt 6 months Follow Up Appt 6 months [facility] Work Phone: Start: 12-29-2016 End: 12-29-2016 Nuclear stress test -exercise Nuclear stress test -exercise [facility] Work Phone: Start: 12-29-2016 End: 12-29-2016 Appointment Appointment [facility] Work Phone: Start: 12-15-2016 End: 12-15-2016 Appointment Appointment [facility] Work Phone: Start: 11-11-2016 End: 11-18-2015 *Hepatic Function Panel *Hepatic Function Panel [facility] Work Phone: Start: 11-11-2016 End: 11-18-2015 Lipid panel [AGGREGATE] *Lipid Profile CC PCP [facility] Work Phone: Start: 11-11-2016 End: 11-18-2015 *Hepatic Function Panel *Hepatic Function Panel [facility] Work Phone: Start: 11-11-2016 End: 11-18-2015 Lipid panel [AGGREGATE] *Lipid Profile CC PCP [facility] Work Phone: Start: 09-28-2016 End: 09-28-2016 Appointment Appointment [facility] Work Phone: Start: 05-26-2016 End: 05-26-2016 ERIC REYES [facility] Work Phone: Start: 05-26-2016 End: 05-26-2016 Follow Up Appt 6 months Follow Up Appt 6 months [facility] Work Phone: Start: 05-26-2016 End: 05-26-2016 ERIC REYES [facility] Work Phone: Start: 05-26-2016 End: 05-26-2016 Follow Up Appt 6 months Follow Up Appt 6 months [facility] Work Phone: Start: 11-10-2015 End: 11-12-2015 *Hepatic Function Panel *Hepatic Function Panel [facility] Work Phone: Start: 11-10-2015 End: 05-20-2016 ERIC REYES [facility] Work Phone: Start: 11-10-2015 End: 11-10-2015 Echocardiography Echocardiogram (complete) [facility] Work Phone: Start: 11-10-2015 End: 11-10-2015 Follow Up Appt 6 months Follow Up Appt 6 months [facility] Work Phone: Start: 11-10-2015 End: 11-12-2015 Lipid panel [AGGREGATE] *Lipid Profile CC PCP [facility] Work Phone: Start: 11-10-2015 End: 11-12-2015 *Hepatic Function Panel *Hepatic Function Panel [facility] Work Phone: Start: 11-10-2015 End: 05-20-2016 DJN DJN [facility] Work Phone: Start: 11-10-2015 End: 11-10-2015 Echocardiography Echocardiogram (complete) [facility] Work Phone: Start: 11-10-2015 End: 11-10-2015 Follow Up Appt 6 months Follow Up Appt 6 months [facility] Work Phone: Start: 11-10-2015 End: 11-12-2015 Lipid panel [AGGREGATE] *Lipid Profile CC PCP [facility] Work Phone: Start: 1952 Depression Screening Depression Screening [facility] Start: 1940 Lipid panel Lipid Panel [facility] Start: 1940 Screening for osteoporosis Bone Density Scan [facility] End: 12-12-2023 CT Chest WO and CT angiogram Coronary arteries W contrast IV [facility] Work Phone: Comment on above: Once for 1 Occurrences starting 12/12/19 until 12/12/2023 ECG 12 lead - CLINIC PERFORMED ECG 12 lead - CLINIC PERFORMED CV ECG Routine Severe aortic stenosis 01/04/2024 11:54 AM EDT [facility] Work Phone: Patient Education [facility] Work Phone: Immunizations Immunization Date Immunization Notes Care Provider Fa cililaurence 01-05-2023 influenza virus vaccine, unspecified formulation Thaddeus Mckeon MD Work Phone: [facility] 12-27-2017 influenza, injectabl e, quadrivalent, preservative free [facility] 12-27-2017 influenza, seasonal, injectable [facility] Payers Date Payer Category Payer Unknown 2024 Medicare [id number] 2024 Medicaid [id number] 2023 Self-pay [id number] 2023 Medicare [employer] RE [employer]URE [id number] 2023-Present [address] [place] [address] Medicare HMO [id number] 2023 Medicare HMO [employer]URE [id number] 2016 Medicare [id number] Unknown [id number] 2.0.1.307368.3.579.2.462 Unknown [id number] 2.0.1.989157.3.579.2.462 Unknown [id number] 2.0.1.459441.3.579.2.462 Unknown [id number] 2.16.840.1.675634.3.579.2.462 Unknown [id number] 2.16.840.1.329817.3.579.2.462 Unknown [id number] 2.16.840.1.553287.3.579.2.462 Unknown [id number] 2.16.840.1.333409.3.579.2.462 Unknown [id number] 2.16.840.1.275483.3.579.2.462 Unknown [id number] 2.16.840.1.058209.3.579.2.462 Unknown [id number] 2.16.840.1.721645.3.579.2.462 Unknown [id number] 2.16.840.1.489716.3.579.2.462 Unknown [id number] 2.16.840.1.136757.3.579.2.462 Unknown [id number] 2.16.840.1.331473.3.579.2.462 Unknown [id number] 2.16.840.1.398151.3.579.2.462 Unknown [id number] 2.16.840.1.778145.3.579.2.462 Unknown [id number] 2.16.840.1.432699.3.579.2.462 Unknown [id number] 2.16.840.1.477169.3.579.2.462 Unknown [id number] 2.16.840.1.287562.3.579.2.462 Unknown [id number] 2.16.840.1.166041.3.579.2.462 Unknown [id number] 2.16.840.1.573995.3.579.2.462 Unknown [id number] 2.16.840.1.423862.3.579.2.462 Unknown [id number] 2.16.840.1.591251.3.579.2.462 Unknown [id number] 2.16.840.1.981182.3.579.2.462 Unknown [id number] 2.16840.1.440659.3.579.2.462 Unknown [id number] 2.16840.1.250068.3.579.2.462 Unknown [id number] 2.16840.1.211389.3.579.2.462 Unknown [id number] 2.16840.1.911120.3.579.2.462 Unknown [id number] 2.840.1.635156.3.579.2.462 Unknown [id number] 2.840.1.296775.3.579.2.462 Unknown [id number] 2.840.1.125703.3.579.2.462 Unknown [id number] 2.840.1.606521.3.579.2.462 Unknown [id number] 2.840.1.519454.3.579.2.462 Unknown [id number] 2.840.1.827321.3.579.2.462 Unknown [id number] 2.840.1.444698.3.579.2.462 Unknown [id number] 2.840.1.739885.3.579.2.462 Unknown [id number] 2.840.1.831452.3.579.2.462 Unknown [id number] 2.840.1.454892.3.579.2.462 Unknown [id number] 2.840.1.409916.3.579.2.462 Unknown [id number] 2.16840.1.483265.3.579.2.462 Unknown [id number] 2.16840.1.721556.3.579.2.462 Unknown [id number] 2.840.1.830492.3.579.2.462 Unknown [id number] 2.16.840.1.653044.3.579.2.462 Unknown [id number] 2.16.840.1.668187.3.579.2.462 Social History Date Type Detail Facility [facility]: [facility]04[facility] Start: 12-28-2017 Non-smoker [facility] Start: 1940 Sex Assigned At Female W [facility] Start: 2023 End: 01-10-2024 Tobacco smoking status MOIS Never smoked tobacco [facility] Start: 2023 Tobacco use and exposure Smokeless tobacco non-user [facility] Start: 11-21-2023 End: 01-04-2024 Alcoholic beverage intake Lifetime non-drinker (finding) [facility] Start: 11-21-2023 End: 01-04-2024 History of Social function [facility] Start: 11-21-2023 End: 01-04-2024 Tobacco use panel [facility] Start: 1940 Sex assigned at Not on file [facility] Start: 10-18-2021 End: 06-25-2024 Sex Female (finding) [facility] Medical Equipment Procedure Code Equipment Code Equipment [...] Valve Aor Soumya 3 Ultra 23mm - [id number] - [id number] Start: 12-25-2023 Comment on above: Description: [id number] Device Perclose Prostyle - [id number] Start: 12-25-2023 Device Perclose Prostyle - [id number] Start: 12-25-2023 DOUGH,CEMENT 6191-1-010 FDA Start: [...] 04/03/2024 11:30 AM ESTTelephone Encounter - Jennifer Baer - 04/01/2024 10:30 AM ESTPatient Instructions Note Date & Type Note Facility 04-03-2024 Telephone encounter Note Records received and scanned under Media [facility]irq 04-03-2024 Miscellaneous Notes Records received and scanned under Media I called [facility] and she requested me to fax med recs release to [phone] I faxed this morning. Confirmed 04/02 at 5:45p I spoke w/ Juana in Dr. Garces's office, asking for echo order to be faxed. I placed Teofilo brennan DNP to sign, order needs faxed to Juana's attention @ [phone]. Time frame dates given to Juana for completion of OV/EKG/echo. KCCQ mailed to pt. ----- Message from JEREMIE Saldaña CNP sent at 01/04/2024 1:51 PM EDT ----- Please call [facility] office and advise regarding registry requirements of one month and one yr appts and echo. Will likely need phone call for KCCQ. documented in this encounter [facility] 04-01-2024 Telephone encounter Note I called Osmany and she requested me to fax med recs release to [phone] I faxed this morning. Confirmed 04/02 at 5:45p [facility] 04-01-2024 Miscellaneous Notes I called Osmany and she requested me to fax med recs release to [phone] I faxed this morning. I spoke w/ Juana in Dr. Garces's office, asking for echo order to be faxed. I placed order, Teofilo David DNP to sign, order needs faxed to Juana's attention @ [phone]. Time frame dates given to Juana for completion of OV/EKG/echo. KCCQ mailed to pt. ----- Message from JEREMIE Saldaña CNP sent at 01/04/2024 1:51 PM EDT ----- Please call [facility] office and advise regarding registry requirements of one month and one yr appts and echo. Will likely need phone call for KCCQ. documented in this encounter [facility] 04-01-2024 Miscellaneous Notes I called Osmany and she requested me to fax med recs release to [phone] I faxed this morning. Confirmed 04/02 at 5:45p I spoke w/ Juana in Dr. Garces's office, asking for echo order to be faxed. I placed Teofilo brennan DNP to sign, order needs faxed to Juana's attention @ [phone]. Time frame dates given to Juana for completion of OV/EKG/echo. KCCQ mailed to pt. ----- Message from Mónica David, JEREMIE - TURNING MACHINE OPERATOR HELPER sent at 01/04/2024 1:51 PM EDT ----- Please call [place] office and advise regarding registry requirements of one month and one yr appts and echo. Will likely need phone call for KCCQ. documented in this encounter [facility] 01-10-2024 [place] [facility] 01-04-2024 Telephone encounter Note I spoke omid/ Juana in Dr. Garces's office, asking for echo order to be faxed. I placed Teofilo brennan DNP to sign, order needs faxed to Juana's attention @ [phone]. Time frame dates given to Juana for completion of OV/EKG/echo. KCCQ mailed to pt. [facility] 01-04-2024 Telephone encounter Note ----- Message from JEREMIE Saldaña CNP sent at 01/04/2024 1:51 PM EDT ----- Please call [place] office and advise regarding registry requirements of one month and one yr appts and echo. Will likely need phone call for KCCQ. [facility] 01-04-2024 History of Present illness Narrative Images from the original note were not included. [facility] [address] [facility] [address] Dept: [phone] Dept Visit type: Established : 1940 Reason for Visit: Cardiac Valve Problem (One week post TAVR) Assessment and Plan 1. Chronic atrial fibrillation (HCC). HR stable. Continue Apixaban 2. Severe aortic stenosis. S/p tAVR. Continue Eliquis. Will contact [place] regarding follow up and registry requirements. SBE prophylaxis. Plan echo in one month 3. Stage 3a chronic kidney disease (HCC). Renal function remains stable post procedure. 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 GFR 27--> 46 4. Left heart failure (HCC). Improved after TAVR, EF 30%--> 50 %, continue furosemide, Aldactone, Farxiga, metoprolol (allerg to landon/ARB) Plan follow up in [place] Subjective Ms Call is an 83 yr old female with a PMH of permanent AF, HFrEF, HTN, HPL, CKD stage 3b, obesity, GERD, and severe with EF 30%, mean and peak gradients 49/71 mm Hg. She underwent cardiac cath at [place] which showed non obstructive CAD. She underwent [...] wrist complaints. She wishes to follow in [place] as travel is difficult for her Allergies [...] Hypokalemia LVH (left ventricular hypertrophy) Morbid obesity ([facility]) Osteoarthritis Vitamin D deficiency Social History Tobacco Use Smoking status: Never Smokeless tobacco: Never Substance Use Topics Alcohol use: Never Past Surgical History: Procedure Laterality Date APPENDECTOMY CARDIAC CATHETERIZATION N/A 12/25/2023 Performed by Harjeet Huffman MD at [facility] OR CATARACT EXTRACTION HYSTERECTOMY No family [...] JEREMIE Ruiz CNP documented in this encounter [facility] 12-26-2023 Nurse Note Discharge instructions given to patient and daughter. Patient verbalizes understanding of medication changes and follow up appointments, and activity restrictions. Discharged to home with daughter. [facility] 12-26-2023 Nurse Note Discharge instructions given to patient and daughter. Patient verbalizes understanding of medication changes and follow up appointments, and activity restrictions. Discharged to home with daughter. documented in this encounter [facility] 12-26-2023 Note Attestation signed by Harjeet Huffman [...] discharge. Referral has been made to the [facility] Outpatient Cardiac Rehabilitation Program. Last Labs: Lab Results Component Value Date WBC 11.6 (H) 12/26/2023 HGB 14.0 12/26/2023 HCT 43.0 12/26/2023 MCV 97.9 12/26/2023 PLT 154 10/ (more content not included)... [facility] 12-26-2023 Consult note Associated Order (s): IP CONSULT TO CARDIAC REHAB Received referral and reviewed chart. Phase II Cardiopulmonary Rehab Referral discussed with Brianne Call. Patient prefers cardiopulmonary rehab at [place] [facility]. Given information on program at preferred location. [facility] 12-26-2023 Note Received referral an d reviewed chart. Phase II Cardiopulmonary Rehab Referral discussed with Brianne Call. Patient prefers cardiopulmonary rehab at [place] [facility]. Given information on program at preferred location. [facility] 12-26-2023 Consult note Associated Order (s): IP CONSULT TO CARDIAC REHAB Received referral and reviewed chart. Phase II Cardiopulmonary Rehab Referral discussed with Brianne Call. Patient [facility] [place] [facility] Given information on program at preferred location. documented in this encounter [facility] 12-26-2023 Note Atrial fibrillation Poor R wave progression, CONSIDER ANTERIOR INFARCT ST and T abnormality Electronically Signed On 12-26-2023 09:21:43 EDT by Austin Carmona [facility] 12-26-2023 Note Atrial fibrillation Poor R wave progression, CONSIDER ANTERIOR INFARCT ST and T abnormality Electronically Signed On 12-26-2023 09:21:43 EDT by Austin Carmona [facility] 12-26-2023 Note IMPRESSION: Atrial fibrillation Poor R wave progression, CONSIDER ANTERIOR INFARCT ST and T abnormality Electronically Signed On 12-26-2023 09:21:43 EDT by Austin Kristine [facility] 12-25-2023 Hospital Discharge instructions Mónica David APRN - SIM - 12/25/2023 12:24 PM EDT - Please call the Heart Valve Clinic with any questions: [phone] -You will have have the following follow [...] unless otherwise specified. documented in this encounter [facility] 12-25-2023 Note Patient: Brianne Yao rodolfo Procedure Summary Date: 12/25/23 Room / Location: [facility] Operating Room Anesthesia Start: 945 Anesthesia [...] once all PACU criteria has been met. [facility] 12-25-2023 Note Patient: Brianne reynolds Procedure Summary Date: 12/25/23 Room / Location: [facility] Operating Room Anesthesia Start: 945 Anesthesia [...] opportunity for questions and acknowledgement of understanding. [facility] 12-25-2023 Note Arterial Line: Date/Time: 12/25/2023 [...] Performed: Other Other staff: Harjeet Huffman MD [facility] 12-25-2023 Note Formatting of this n [...] The valve was passed through the 14 American sapient E sheath into the descending thoracic [...] patient was decannulated transferred stable to recovery. [employer] [place] Phone: 12-25-2023 Note Formatting of this n ote might be different from the original. Date of surgery 12/25/2023 Cardiothoracic Surgeon: Tien Cornell MD, [facility] Preoperative diagnosis: Severe, symptomatic aortic valve stenosis [...] The valve was passed through the 14 American sapient E sheath into the descending thoracic [...] patient was decannulated transferred stable to recovery. [place] [place] Phone: 12-25-2023 Miscellaneous Notes Date of surgery [...] The valve was passed through the 14 American sapient E sheath into the descending thoracic [...] stable to recovery. documented in this encounter [facility] 12-25-2023 Attending History and physical note H&P reviewed. The patient was examined and there are no changes to the H&P. Source Note - Arlene Velez APRN - TURNING MACHINE OPERATOR HELPER - 12/22/2023 12:39 PM EDT Images from the original note were not included. H+ P copied to chart from (office provider's name Mónica David APRN) progress note dated 12/12/23 on behalf of (procedural physician's name Dr. Huffman). Expand All Collapse All [facility] - [place] [address] [facility] [address] Dept: [phone] Dept Visit type: Established : 1940 Reason [...] risk, characteristics, and goals of care. Brianne Wells Mandeepgautam was engaged in the decision and [...] mm Hg. She underwent cardiac cath at [place] which showed non obstructive CAD. He kidney [...] mg IntraVENous Once Mónica David APRN - TURNING MACHINE OPERATOR HELPER sodium chloride 0.9 % bolus 500 mL [...] Independent interpretation of tests: JEREMIE Ruiz CNP [employer] Phone: 12-25-2023 History and physical note H&P [...] name Dr. Huffman). Expand All Collapse All [facility] - [place] [address] [facility] [address] Dept: [phone] Dept Visit type: Established : 1940 Reason [...] mm Hg. She underwent cardiac cath at [place] which showed non obstructive CAD. He kidney [...] JEREMIE Ruiz CNP documented in this encounter [facility] 12-25-2023 Note H&P reviewed. The griselda hannah was examined and there are no changes to the H&P. [facility] 12-22-2023 History and physical note Images from the original note were not included. H+ P copied to chart from (office provider's name Mónica David APRN) progress note dated 12/12/23 on behalf of (procedural physician's name Dr. Huffman). Expand All Collapse All [facility] - [place] [address] [place] [address] Dept: [phone] Dept Visit type: Established : 1940 Reason [...] mm Hg. She underwent cardiac cath at [place] which showed non obstructive CAD. He kidney [...] mg IntraVENous Once Mónica David APRN - TURNING MACHINE OPERATOR HELPER sodium chloride 0.9 % bolus 500 mL [...] interpretation of tests: Mónica David APRN - TURNING MACHINE OPERATOR HELPER Associated attestation - Harjeet Huffman MD - [...] We will proceed with the planned procedure. [facility] 12-22-2023 History and physical note Images from the original note were not included. H+ P copied to chart from (office provider's name Mónica David APRN) progress note dated 12/12/23 on behalf of (procedural physician's name Dr. Huffman). Expand All Collapse All [facility] - [address] [address] Dept: [phone] Dept Visit type: Established : 1940 Reason [...] mm Hg. She underwent cardiac cath at [place] which showed non obstructive CAD. He kidney [...] mg IntraVENous Once Mónica David APRN - TURNING MACHINE OPERATOR HELPER sodium chloride 0.9 % bolus 500 mL [...] interpretation of tests: Mónica David APRN - TURNING MACHINE OPERATOR HELPER Associated attestation - Harjeet Huffman MD - [...] the planned procedure. documented in this encounter [facility] 12-22-2023 Note Attestation signed by Harjeet [...] name Dr. Huffman). Expand All Collapse All [facility] [address] [facility] [address] Dept: [phone] Dept Visit type: Established : 1940 Reason [...] mm Hg. She underwent cardiac cath at [place] which showed non obstructive CAD. He kidney [...] spironolactone (Aldactone) 25 (more content not included)... [facility] 12-22-2023 Note Attestation signed by Harjeet [...] name Dr. Huffman). Expand All Collapse All [facility] [address] [facility] [address] Dept: [phone] Dept Visit type: Established : 1940 Reason [...] mm Hg. She underwent cardiac cath at [place] which showed non obstructive CAD. He kidney [...] spironolactone (Aldactone) 25 (more content not included)... [facility] 12-21-2023 Note Pre TAVR phone call placed. Reviewed, procedure, instructions and meds. Confirmed Eliquis, and Dye Allergy Prep med instructions. Pt verbalizes understanding. Pt knows to call [phone] with any concerns. Teofilo Velez CNP notified for prep for procedure orders. Diagnosis: Procedure being done: TF TAVR Date/time of procedure: 12/25/2023 @ 9:15 am Surgeon: Dr. Huffman 2nd surgeon: Dr. Olsen Admission type: To be admitted Anesthesia: MAC Completed: H&P/BNP/CBC/CMP/CXR/EKG Date completed: BMP 12/19/23, 12/12/23 Additional orders Dye Allergy Prep [facility] 12-15-2023 Note Patient: Brianne reynolds Procedure Information Date/Time: 12/25/23914 Procedures: TRANSCATHETER AORTIC VALVE REPLACEMENT, TRANSTHORACIC ECHOCARDIOGRAM TRANSCATHETER AORTIC VALVE REPLACEMENT, TRANSTHORACIC ECHOCARDIOGRAM (Chest) Location: [facility] Operating Room Surgeons: Harjeet Huffman MD; [...] Records in media Carolina Waldron APRN - TURNING MACHINE OPERATOR HELPER JOB Screening Labs: Lab Results Component Value [...] 71 mmHg Equipment Requests: Additional Equipment Requests [facility] 12-12-2023 History of Present illness Narrative Pts symptoms of the reaction have all gone away. Pt states she feels back to normal. Pt came back from CT and pts face is red and she states she is starting to progressively get itchy. Mónica David NP is here at this time and order medications. documented in this encounter [facility] 12-12-2023 History of Present illness Narrative Images from the original note were not included. [facility] - [address] [address] Dept: [phone] Dept Visit type: Established : 1940 Reason [...] mm Hg. She underwent cardiac cath at [place] which showed non obstructive CAD. He kidney [...] mg IntraVENous Once Mónica David APRN - TURNING MACHINE OPERATOR HELPER sodium chloride 0.9 % bolus 500 mL [...] JEREMIE Ruiz CNP documented in this encounter [facility] 12-12-2023 Note Pt came back from CT and pts face is red and she states she is starting to progressively get itchy. Mónica David DATABASE REPORT WRITER is here at this time and order medications. [facility] 12-06-2023 Note Message reviewed. Re commend CTA with IV hydration. Can get pre procedure labs at time of CTA. [facility] 11-21-2023 History of Present illness Narrative Images from the original note were not included. [facility] [address] [facility] [address] Dept: [phone] Dept Loc: [phone] Today's Visit Location: TAVR (transcather aortic valve replacement) Clinic [facility] Cardiology [address] [place] [address] Visit type: Senior Health Assessment at TAVR [...] agree with cardiology plan as discussed with extractor plant operator Dr. Huffman and CTS Dr. Reed on [...] Patient has already named her Power of Events Administrative Assistant for Healthcare and Finances (Both are her daughter Shama López) I recommended patient follow-up with [facility] (phone: [phone] fax: [phone]) as needed for memory testing. 4. Drug-induced [...] Mean Gradient of 49. Dr. Garces in [place]. No aortic valve area mentioned. A fib [...] no=0 points)0 - patient rents room from [facility]. Rajiv (son) lives w pt Reduce mobility [...] [] Daughter Shama López (financial Power of Events Administrative Assistant) is on bank acct but patient manages [...] phrases are mis-transcribed.) documented in this encounter [facility] 11-21-2023 Instructions Thaddeus Mckeon MD - 11/21/2023 3:30 PM EDT GERIATRICS DISCHARGE INSTRUCTIONS: Follow-up with [facility] (phone: [phone] fax: [phone]) as needed for memory testing. Please BEGIN [...] risk of falls. documented in this encounter [facility] 11-21-2023 Evaluation + Plan note Associated Problem(s): Drug-induced bradycardia HR 58 bpm today but no syncope, presyncope, falls Patient asymptomatic today Patient taking lopressor 12.5mg po bid - I encouraged patient to discuss with her cardiologists/PCP (primary care provider) regarding change of meds given her advanced age and increased risk of falls [facility] 11-21-2023 Miscellaneous Notes Associated Problem(s): Drug-induced [...] Patient has already named her Power of Events Administrative Assistant for Healthcare and Finances (Both are her daughter Shama López) I recommended patient follow-up with [facility] (phone: [phone] fax: [phone]) as needed for memory testing. Associated Problem(s): [...] agree with cardiology plan as discussed with extractor plant operator Dr. Huffman and CTS Dr. Reed on same date regarding next steps for further workup/treatment of cardiac disease which likely includes heart cath +/- TAVR. On this date of evaluation, the patient has sufficient understanding of procedure(s) to consent to the procedure(s) being discussed and has adequate social support(s). documented in this encounter [facility] 11-21-2023 History of Present illness Narrative Images from the original note were not included. [facility] Medical Group: Cardiothoracic Surgery Multidisciplinary Heart Valve Clinic Date: 11/21/23 Patient:Brianne Call 1940 83 y.o. female [id number] Subjective: HPI: Brianne Call 83 y.o. referred [...] easily. Psychiatric/Behavioral: Negative for dysphoric mood. Allergies: Ladnon inhibitors, Lisinopril, Sacubitril, and Valsartan Past Medical [...] the near future. Given her proximity to [facility], she would prefer LHC performed there. [...] other diagnostic images. documented in this encounter [facility] 11-21-2023 Evaluation + Plan note Associated Problem(s): Short-term memory loss Chronic Patient with occasional word-finding difficulties I suspect either normal memory loss for aging or possibly MCI (Mild Cognitive Impairment) Patient has already named her Power of Events Administrative Assistant for Healthcare and Finances (Both are her daughter Shama López) I recommended patient follow-up with [facility] (phone: [phone] fax: [phone]) as needed for memory testing. [facility] 11-21-2023 Evaluation + Plan note Associated Problem(s): Chronic atrial fibrillation (HCC) Chronic; Stable Asymptomatic May be nearing renal (kidney) dysfunction requiring reduced dose of eliquis (given Cr nearly 1.5 in past and patient's age >80 yo). May need eliquis 2.5mg po bid instead of 5mg po bid in future pending renal (kidney) function [facility] 11-21-2023 Evaluation + Plan note Associated [...] not missing or doubling up on meds [facility] 11-21-2023 Evaluation + Plan note Associated Problem(s): Nonrheumatic aortic valve stenosis S/p AV replacement by Dr. Nagy in 201209/22/23 Transthoracic Echo (TTE) noted severe aortic stenosis. Mean Gradient of 49. Dr. Garces in [place]. No aortic valve area mentioned. I agree with cardiology plan as discussed with extractor plant operator Dr. Huffman and CTS Dr. Reed on same date regarding next steps for further workup/treatment of cardiac disease which likely includes heart cath +/- TAVR. On this date of evaluation, the patient has sufficient understanding of procedure(s) to consent to the procedure(s) being discussed and has adequate social support(s). [facility] 11-21-2023 History of Present illness Narrative Images from the original note were not included. [facility] [address] [facility] [address] Dept: [phone] Dept Visit type: New : 1940 Reason for Visit: Cardiac Valve Problem Assessment and Plan 1. LV dysfunction 2. Stenosis of prosthetic aortic valve, initial encounter - ECG 12 lead - CLINIC PERFORMED This is a very pleasant 83 y.o. 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 she is clearly in need of aortic valve replacement, likely [id number] TAVR. Will need a diagnostic cath first, [...] Harjeet Huffman MD documented in this encounter [facility] 11-16-2023 Note Received fax referra l to [facility]ve Clinic from Dr. Garces @ [facility]. I spoke w/ Juana, echo images to be pushed to PACS, she will fax lab work. I spoke w/ pt, appt scheduled. Chart made. [facility] Evaluation note No assessment inform ation available [facility] Work Phone: Evaluation note Diagnosis Nonrheumatic aortic valve stenosis- Primary Chronic atrial fibrillation (HCC) Atrial fibrillation Short-term memory loss Memory loss Drug-induced bradycardia Polypharmacy Issue of repeat prescriptions [facility] Diagnosis Stenosis of prosthetic aortic valve, initial encounter- Primary documented in this encounter [facility] note* Diagnosis LV dysfunction- Primary Left heart failure Stenosis of prosthetic aortic valve, initial encounter documented in this encounter [facility]* Diagnosis Nonrheumatic aortic valve stenosis- Primary Chronic atrial fibrillation (HCC)- Primary Atrial fibrillation Nonrheumatic aortic valve stenosis Adverse effect of contrast media, initial encounter Nonrheumatic aortic valve stenosis documented in this encounter [facility]* Diagnosis Nonrheumatic aortic valve stenosis- Primary Renal failure, unspecified chronicity Stenosis of prosthetic aortic valve, initial encounter Nonrheumatic aortic valve stenosis documented in this encounter [facility] [facility]* Diagnosis Nonrheumatic aortic valve stenosis- Primary Nonrheumatic aortic valve stenosis Nonrheumatic aortic valve stenosis documented in this encounter [facility] Diagnosis Nonrheumatic aortic valve stenosis- Primary Severe aortic stenosis- Primary Aortic valve disorders Nonrheumatic aortic valve stenosis documented in this encounter [facility] Diagnosis Severe aortic stenosis- Primary Aortic valve disorders documented in this encounter [facility]* Diagnosis Nonrheumatic aortic valve stenosis- Primary Severe aortic stenosis Aortic valve disorders Severe aortic stenosis Aortic valve disorders Nonrheumatic aortic valve stenosis documented in this encounter [facility]* Diagnosis Chronic atrial fibrillation (HCC)- Primary Atrial fibrillation Severe aortic stenosis Aortic valve disorders Stage 3a chronic kidney disease (HCC) Left heart failure (HCC) Left heart failure [facility] Diagnosis Nonrheumatic aortic valve stenosis- Primary Chronic atrial fibrillation (HCC) Atrial fibrillation Short-term memory loss Memory loss Drug-induced bradycardia Polypharmacy Issue of repeat prescriptions S/P TAVR (transcatheter aortic valve replacement) [facility] Nonrheumatic aortic valve stenosis- Primary Chronic atrial fibrillation (HCC) Atrial fibrillation Short-term memory loss Memory loss Drug-induced bradycardia Polypharmacy Issue of repeat prescriptions S/P TAVR (transcatheter aortic valve replacement) [facility] (narrative)No reason for referral information availableWUniversity [facility] Work Phone: Family History No [...] Yes December 26 8 12:21pm Power of Events Administrative Assistant Yes December 26 12:21pm Date Activated Date [...] CTA Angiogram TAVR Arlene Velez APRN - TURNING MACHINE OPERATOR HELPER [address] [place] [address] Referral ID Status Reason Start Date Expiration Date Visits Re quested Visits Authorized [id number] Closed 12/07/2023 02/05/2024 1 1 Summary Purpose Chief Complaint and Reason for Visit Chief Complaint Admit Date MONTHLY EXAM February 27, 2024 3:12pm LABWORK March 01, 2024 5:00am PRISON LAB WORK March 08 4:00am LABWORK March 15, 2024 2:14pm NEW CONCERN March 15, 2024 4:36pm MONTHLY EXAM April 02, 2024 1 1:01pm PRISON LAB WORK April 09, 2024 5:00am PRISON LAB WORK April 22, 2024 5:00am LABWORK May 07, 2024 5:00am MONTHLY EXAM May 16, 2024 11:05am PRISON LAB WORK June 04, 2024 5 :00am Chief Complaint Admit Date MONTHLY EXAM April 02, 2024 1 1:01pm PRISON LAB WORK April 09, 2024 5:00am PRISON LAB WORK April 22, 2024 5:00am LABWORK May 07, 2024 5:00am MONTHLY EXAM May 16, 2024 11:05am MONTHLY EXAM May 28, 2024 4:2 0pm PRISON LAB WORK June 04, 2024 5 :00am PRISON LAB WORK June 18, 2024 5: 00am PRISON LAB WORK July 02, 2024 5 :00am Chief Complaint Admit Date PRISON LAB WORK April 22, 2024 5:00am LABWORK May 07, 2024 5:00am MONTHLY EXAM May 16, 2024 11:05am MONTHLY EXAM May 28, 2024 4:2 0pm PRISON LAB WORK June 04, 2024 5 :00am PRISON LAB WORK June 18, 2024 5: 00am PRISON LAB WORK July 02, 2024 5 :00am [...] Provi guillermo, Attending Provider, Referring Provider Active Operational Risk Manager Relationship Specialty Start Date End Date Alvarado Hull MD [address] [place] [address] PCP - General Geriatric Medicine 11/21/23 Operational Risk Manager Relationship Specialty Start Date End Date Alvarado Hull MD [address] [place] [address] PCP - General Geriatric Medicine 11/21/23 Operational Risk Manager Relationship Specialty Start Date End Date Alvarado Hull MD [address] [place] [address] PCP - General Geriatric Medicine 11/21/23 Operational Risk Manager Relationship Specialty Start Date End Date Alvarado Hull MD [address] [place] [address] PCP - General Geriatric Medicine 11/21/23 Operational Risk Manager Relationship Specialty Start Date End Date Alvarado Hull MD [address] [place] [address] PCP - General Geriatric Medicine 11/21/23 Operational Risk Manager Relationship Specialty Start Date End Date Alvarado Hull MD [address] [place] [address] PCP - General Geriatric Medicine 11/21/23 Operational Risk Manager Relationship Specialty Start Date End Date Alvarado Hull MD [address] [place] [address] PCP - General Geriatric Medicine 11/21/23 Operational Risk Manager Relationship Specialty Start Date End Date Alvarado Hull MD [address] [place] [address] PCP - General Geriatric Medicine 11/21/23 Operational Risk Manager Relationship Specialty Start Date End Date Alvarado Hull MD [address] [place] [address] PCP - General Geriatric Medicine 11/21/23 Operational Risk Manager Relationship Specialty Start Date End Date Alvarado Hull MD [address] [place] [address] PCP - General Geriatric Medicine 11/21/23 Operational Risk Manager Relationship Specialty Start Date End Date Alvarado Hull MD [address] [place] [address] PCP - General Geriatric Medicine 11/21/23 Team Status: Inactive Member Role Status Dates Dr. Scott Hull MD Primary Care Provider Active Start: February 27, 2024 End: February 27, 2024 Sara Irizarry DATABASE REPORT WRITER, DATABASE REPORT WRITER-C Attending Provider Active Start: February 27, 2024 [...] End: March 15, 2024 Sara Irizarry NP, DATABASE REPORT WRITER-C Attending Provider Active Start: March 15, 2024 [...] INFUSION TREATMENT Harjeet Huffman MD [address] [facility] [address] [place] [address] [facility] [address] [place] [address] Referral ID Status Reason Start Date Expiration Date Visits Re quested Visits Authorized [id number] Closed 12/12/2023 12/06/2024 1 1 Specialty Diagnoses / Procedures Referred By Roseline ervin Referred To Contact Radiology Diagnoses Nonrheumatic aortic valve stenosis Procedures CTA Angiogram TAVR Arlene Velez APRN - SIM [address] [place] [address] Referral ID Status Reason Start Date Expiration Date Visits Re quested Visits Authorized [id number] Closed 12/07/2023 02/05/2024 1 1 Specialty Diagnoses / Procedures Referred By Contac t Referred To Contact Diagnoses Nonrheumatic aortic valve stenosis Procedures TRANSCATHETER AORTIC VALVE REPLACEMENT, TRANSTHORACIC ECHOCARDIOGRAM TRANSCATHETER AORTIC VALVE REPLACEMENT, TRANSTHORACIC ECHOCARDIOGRAM Harjeet Huffman MD [address] [place] [address] [address] [place] [address] Referral ID Status Reason Start Date Expiration Date Visits Re quested Visits Authorized [id number] 1 1 Reason Comments Cardiac Valve Problem [...] Surgical Prophylaxis 59 (Given - Provider: Edgar Wraner APRN - CHAIR MAKER) dapagliflozin (Farxiga) tablet 10 mg 10 mg, [...] at 1046, Intraprocedure 1046 (Given - Provider: Hajreet Huffman MD) perflutren protein A microsphere ([employer]) [...] section and content) DATE CREATED AUTHOR 04/04/2024 [employer] [facility] DATE CREATED AUTHOR AUTHOR'S ORGANIZ ATION 08/22/2024 [facility] FOR RECORDS PERTAINING TO PATIENTS [...] BE BASED ON THE PRIMARY CLINICAL RECORDS. [employer] [facility]. provides no warranty or guarantee of the accuracy or completeness of information in this document.
[2024-08-27 07:50] LABS: Absolute Lymphocyte Count 1.87 X10^3/uL (0.83-4.51); Absolute Neutrophil Count 4.2 X10^3/uL (2.0-7.7); Basophil# 0.07 X10^3/uL; Eosinophil# 0.14 X10^3/uL; Hematocrit 42.3 % (37-47); Hemoglobin 13.8 g/dL (12.0-15.0); Lymphocyte # 1.87 X10^3/ul (0.83-4.51); Lymphocyte % 27.1 % (19-41); Mean Corp Hgb Conc 32.6 g/dL (32-36); Mean Corpuscular Hgb 31.6 pg (27.0-32.0); Mean Corpuscular Volume 96.8 fL (81-99); Mean Platelet Vol. 12.5 fl (6.2-12.0); Monocyte# 0.65 X10^3/uL; Monocyte% 9.4 % (0-10); NRBC Flagged by Analyzer 0 % (0-5); Neutrophil # 4.15 X10^3/uL (2.7-7.7); Neutrophil % 60.1 % (47-70); Platelet Count 196 K/mm3 (150-450); RBC Distribution Width CV 13.7 % (11.6-14.6); RBC Distribution Width SD 49.1 fl (35.1-43.9); Red Blood Count 4.37 M/mm3 (4.2-5.4); White Blood Count 6.9 K/mm3 (4.4-11.0)
[2024-08-27 08:00] LABS: Anion Gap 12 (5-15); BUN 26 mg/dL (4-19); Calcium,Total 9.5 mg/dL (7.6-11.0); Carbon Dioxide 27.3 mmol/L (21.0-32.0); Chloride 99 mmol/L (98-108); Creatinine, Serum 1.74 mg/dL (0.70-1.20); EST Glomerular Filtration Rate 29 (>60); Glucose 103 mg/dL (70-99); Potassium 4.1 mmol/L (3.3-5.1); Sodium Level 138 mmol/L (133-145)
== END ==
LOC: OLS.WHLEAS 05:00
PROVIDERS: PCP Family Medicine Geriatric Medicine; Visit Provider Internal Medicine
DX: R48.8 Other symbolic dysfunctions (principal)
CPT/HCPCS: 36415; 80048; 85025

== ENCOUNTER → 2024-09-24 04:00 | Outpatient (REF) | payer MEDICARE, SELFPAY ==
[2024-09-24 06:37] LABS: Hematocrit 42.5 % (37-47); Hemoglobin 14.1 g/dL (12.0-15.0); Immature Granulocytes Count 0.050 X10^3/uL (0.0-0.0); Mean Corp Hgb Conc 33.2 g/dL (32-36); Mean Corpuscular Volume 97.5 fL (81-99); Mean Platelet Vol. 12.3 fl (6.2-12.0); NRBC Flagged by Analyzer 0 % (0-5); Platelet Count 204 K/mm3 (150-450); RBC Distribution Width CV 13.6 % (11.6-14.6); RBC Distribution Width SD 48.6 fl (35.1-43.9); Red Blood Count 4.36 M/mm3 (4.2-5.4); White Blood Count 7.4 K/mm3 (4.4-11.0)
[2024-09-24 06:58] LABS: Anion Gap 13 (5-15); BUN 28 mg/dL (4-19); BUN/Creat Ratio 15.6 RATIO (10-20); Calcium,Total 9.6 mg/dL (7.6-11.0); Carbon Dioxide 26.0 mmol/L (21.0-32.0); Chloride 99 mmol/L (98-108); Glucose 86 mg/dL (70-99); Potassium 4.3 mmol/L (3.3-5.1)
== END ==
LOC: OLS.WHLEAS 04:00
PROVIDERS: PCP Family Medicine Geriatric Medicine; Referring Provider Internal Medicine; Visit Provider Internal Medicine
DX: R48.8 Other symbolic dysfunctions (principal); I63.542 Cerebral infarction due to unspecified occlusion or stenosis of left cerebellar artery
CPT/HCPCS: 36415; 80048; 85025

== ENCOUNTER → 2024-10-07 | Outpatient (REF) | payer MEDICARE, MEDICAID, SELFPAY ==
--- OUTSIDE RECORDS SUMMARY | 2024-10-07 04:50 | XMS RPT_ITS | CCD ---
Author Organization [facility] Care Team Providers Care Medical Director Occupational Health Name Role Phone SingerSophiaPaige N Unavailable Lucrecia Paige N Unavailable Lucrecia [...] Dr. Scott Sabillon Primary Care Provider [phone] Daniel GUNN, Joe Attending Provider Unavailagustin Hull MD, Dr. Scott Sabillon Primary Care Provider Daniel GUNN, Joe Attending Provider Unavailagustin Sanchez MD, Dr. Diaz Attending Provider Kurtis GUNN, Dr. Scott Sabillon Primary Care Provider Daniel GUNN, Joe Attending Provider Unavailagustin Sanchez MD, Joe Referring Provider Unavailagustin Hull MD, Dr. Scott Sabillon Primary Care Provider Daniel GUNN, Joe Attending Provider Unavailagustin Sanchez MD, Dr. Diaz Attending Provider Juan C LAYTON-CSara Attending Provider Sudarshan Sandoval Consulting Unavailable Kurtis, Scott Chi Primary Care Unavailable Ricardo Viera Attending Unavailable Maribel Vizcarra Admitting Unavailable Adeli, Amir Consulting Unavailable Hinduja, Alla Consulting Unavailable Rinku, Carolina Consulting Unavailable Zha, Micki Consulting Unavailable Mu, Rommel Consulting Unavailable Vicente, Debbie Consulting Unavailable Bittar, Flash Consulting Unavailable Preet Clark Consulting Unavailable Griffin Simon Consulting Unavailable Amanda Bustamante Consulting Unavailable Eriberto Eddy Consulting Unavailable Lucy Muñoz Consulting Unavailable RidGeorge walls Consulting Unavailable Raúl, Jessicad Walter Consulting UnavailHarjeet Garza Consulting Unavailable Sharpe, Rami Consulting Unavailable Leta Gilmorehil Consulting Unavailable Penelope Jama Consulting Unavailable Santi Agrawalsemadeline Consulting Unavailable Maribel Vizcarra Consulting Unavailable Kurtis, Scott Chi Primary Care Unavailable Oleghe OLS, Efewongbe Attending Unavailabl e Kurtis, Scott Chi Primary Care Unavailable Oleghe OLS, Efewongbe Attending Unavailabl e Kurtis, Scott Chi Primary Care Unavailable Oleghe OLS, Efewongbe Referring Unavailabl e Oleghe OLS, Efewongbe Attending Unavailabl e Kurtis, Scott Chi Primary Care Unavailable Kurtis, Scott Chi Referring Unavailable Suzan Garces Attending Unavailable Kurtis, Scott Chi Referring Unavailable Kurtis, Scott Chi Primary Care Unavailable Brenda VILLALOBOS, Mónica Wells Attending Unavail able Oleghe OLS, Efewongbe Attending Unavailabl e Kurtis, [...] Chi Primary Care Unavailable Oleghe OLS, Efewongbe Referring Unavailabl e [...] David Referring Unavailable Mónica David Attending Unavailable Kurtis, Scott Chi Primary Care Unavailable Oleghe OLS, Efewongbe Attending Unavailabl e Kurtis, Scott Chi Primary Care Unavailable Ricardo Viera Referring Unavailable James Flores Attending Unavailable Kurtis, Scott Chi Primary Care Unavailable Oleghe OLS, Efewongbe Attending Unavailabl e Kurtis, Scott Chi Primary Care Unavailable Ricardo Viera Attending Unavailable Sudarshan Sandoval Consulting Unavailable Maribel Vizcarra L Admitting Unavailable Adeli, Amir Consulting Unavailable Hinduja, Alla Consulting Unavailable Rinku, Carolina Consulting Unavailable Manjula, Micki Consulting Unavailable Mu, Rommel Consulting Unavailable Vicente, Debbie Consulting Unavailable Flash Blackwell Consulting Unavailable Preet Clark Consulting Unavailable Griffin Simon Consulting Unavailable Amanda Bustamante Consulting Unavailable Eriberto Eddy Consulting Unavailable Lucy Muñoz Consulting Unavailable RidGeorge walls Consulting Unavailable Shikha Olsen Consulting UnavailHarjeet Garza Consulting Unavailable Tiffany Sharpe Consulting Unavailable Peña Gilmore Consulting Unavailable Penelope Jama Consulting Unavailable Shawn Agrawal Consulting Unavailable White, Maribel L Consulting Unavailable Ricardo Viera Consulting Unavailable Kurtis, Scott Chi Primary Care Unavailable [place] HELP DESK OPERATOR, Sara Attending Unavailable Kurtis, Scott Chi Primary Care Unavailable [place] HELP DESK OPERATOR, Sara Attending Unavailable Kurtis, Scott Chi Primary Care Unavailable [place] HELP DESK OPERATOR, Sara Attending Unavailable Kurtis, Scott Chi Primary Care Unavailable [place] HELP DESK OPERATOR, Sara Attending Unavailable Kurtis, Scott Chi Primary Care Unavailable Oleghe, Efewongbe Attending Unavailable Kurtis, Scott Chi Primary Care Unavailable Kurtis, Scott Chi Referring Unavailable Dez, Suzan Attending Unavailable Kurtis, Scott Chi Primary Care Unavailable [place] HELP DESK OPERATOR, Sara Attending Unavailable Kurtis, Scott Chi Primary Care Unavailable White, Maribel L Attending Unavailable White, Maribel L Consulting Unavailable White, Maribel L Admitting Unavailable Kurtis, Scott Chi Primary Care Unavailable Oleghe, Efewongbe Attending Unavailable Kurtis, Scott Chi Primary Care Unavailable [place] HELP DESK OPERATOR, Sara Attending Unavailable Oleghe, Efewongbe Attending Unavailable Kurtis, Scott Chi Primary Care Unavailable Kurtis, Scott Chi Primary Care Unavailable Kurtis, Scott Chi Referring Unavailable Mis Wagner Attending Unavailable Kurtis, Scott Chi Primary Care Unavailable Eriberto Ames Attending Unavailable Oleghe, Efewongbe Attending Unavailable Kurtis, Scott Chi Primary Care Unavailable Kurtis, Scott Chi Primary Care Unavailable Dez, Suzan Attending Unavailable Kurtis, Scott [...] Unavailable Kurtis, Scott Chi Primary Care Unavailable Suzan Garces Referring Unavailable Suzan Garces Attending Unavailable Kurtis, Scott Chi Primary Care Unavailable Dez, Suzan Referring Unavailable DezAbiola ayalad Attending Unavailable Kurtis, Scott Chi Primary Care Unavailable Joe Posey Attending Unavailabl e Kurtis, Scott Chi Primary Care Unavailable Joe Posey Attending Unavailabl e Allergies Allergy Classification Reported Allergen(s) Allergy Type Date of Onset Reaction(s) Facility (20 sources) Angiotensin Converting Enzyme (Landon) Inhibitors; Translations: [LANDON Inhibitors] drug allergy 11-06-19 16 Other [facility] Work Phone: (12 sources) Lisinopril Drug Allergy 03-04-20 [facility] (17 sources) Lisinopril Propensity to adverse reactions 11-14-19 [facility] (17 sources) sacubitril Drug Allergy 11-14-19 [facility] (17 sources) Valsartan Propensity to adverse reactions 11-14-19 [facility] (14 sources) Iodinated Contrast Media Propensity to adverse reactions 12-12-19 [facility] (7 sources) dapagliflozin Drug Allergy 02-07-20 [facility] (7 sources) sacubitril Drug Allergy 02-07-20 [facility] (7 sources) Triiodobenzoic Acids Allergy to substance 02-07-20 [facility] Comment on above: hives, red face and itching (7 sources) valsartan Drug Allergy 02-07-20 [facility] (1 source) dapagliflozin Drug Allergy 02-07-20 [facility] (1 source) Lisinopril Drug Allergy 02-07-20 [facility] (1 source) sacubitril Drug Allergy 02-07-20 [facility] (1 source) valsartan Drug Allergy 02-07-20 [facility] (1 source) Iodinated Contrast Media Drug allergy (disorder) 02-07-20 [facility] Medications Current Medications Medication Drug Class(es) Dates Sig (Normalized) Sig (Original) apixaban 5 mg oral tablet (20 sources) Factor Xa Inhibitor Start: 09-07-2017 End: 12-26-2023 take 1 tablet by mouth twice daily Apixaban (Eliquis) 5 MG tablet Active 5 mg PO TWICE A DAY December 11, 2017 3:10pm BLOOD THINNER atorvastatin 40 mg oral tablet (7 sources) HMG-CoA Reductase Inhibitor Start: 01-10-2024 take [...] mg tablet Active 40 mg PO DAILY 16 02November 10, 2023 11:35am On Hold: Resume on [...] tablet by mouth twice daily PANTOPRAZOLE SODIUM [id number] Gerald Barragan MD potassium chloride 20 meq extended release oral tablet (17 sources) Start: 02-07-2024 take 1 tablet by [...] in error) sertraline 50 mg oral tablet (7 sources) Serotonin Reuptake Inhibitor Start: 02-07-2024 take [...] Discontinued 1000 mg PO EVERY 8 HOURS 0 December 27, 2017 12:00am October 06, 2023 8:37am Start: 09-20-2017 End: 12-27-2017 take 1000 mg by mouth every eight hours Acetaminophen Discontinued 1000 MG PO EVERY 8 HOURS December 11, 2017 3:10pm December 27, 2017 7:13am aspirin 81 mg delayed release oral tablet (16 sources) Platelet Aggregation Inhibitor, Nonsteroidal Anti-inflammatory Drug [...] CAPS One tablet by mouth daily CELECOXIB [id number] Mónica Gutierrez PA-C diphenhydrAMINE hydrochloride 25 mg oral tablet (2 sources) Histamine-1 Receptor Antagonist Start: 12-25-2023 End: 12-25-2023 take 50 mg by mouth once 50 mg, Oral, Once, On Mon12/25/23 at 0730, For 1 dose, Preprocedure docusate sodium 50 mg / sennosides, group home 8.6 mg oral tablet (12 sources) Start: 12-27-2017 End: 10-06-2023 take 1 tablet by mouth twice daily as needed Sennosides-Docusate Sodium (Stool Softener-Stimulant Laxat) 1 TABLET tablet Discontinued 2 {tbl} PO TWICE A DAY 0 December 27, 2017 12:00am October 06, 2023 [...] mL NS hydroCHLOROthiazide 25 mg oral tablet (15 sources) Thiazide Diuretic Start: 02-02-2021 End: 11-21-2023 [...] crow stallings imiquimod 50 mg/ml topical cream (12 sources) Start: 02-02-2021 End: 03-04-2021 Imiquimod 5 % cream in packet Discontinued 4 mmol TOPICAL 5 times per week 30 42 0 February 02, 2021 1:00am March 15, 2021 [...] 10, 2017 1:53pm February 02, 2021 10:10am BLOOD PRESSURE 100 mg PO 0.5 tablet daily Start: [...] 2017 1:49pm meloxicam 15 mg oral tablet (12 sources) Nonsteroidal Anti-inflammatory Drug Start: 05-01-2015 End: [...] TWICE A DAY July 10, 2017 12:00am BLOOD PRESSURE Start: 07-10-2017 take 12.5 mg by mout [...] Nasal Decolonization ondansetron 4 mg oral tablet (12 sources) Serotonin-3 Receptor Antagonist Start: 12-27-2017 End: 01-03-2018 take 1 tablet by mouth every eight hours as needed for nausea Ondansetron Hcl 4 MG tablet Discontinued 4 mg PO EVERY 8 HOURS NEEDED as needed for Nausea/Vomiting 20 December 27, 2017 7:16am January 02, 2018 12:00am January 03, 2018 12:08am oxyCODONE hydrochloride 5 mg oral tablet (12 sources) Opioid Agonist Start: 12-27-2017 End: 01-03-2018 take 5-10 mg by mouth every four hours as needed for pain Oxycodone 5 MG tablet Discontinued 5 - 10 mg PO EVERY 4 HOURS NEEDED as needed for Mod-Severe Pain (4-10/10) December 27, 2017 12:00am January 02, 2018 12:00am January 03, 2018 12:08am 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 (Optison) 3 mL [...] or stenosis of left carotid arteries] Onset: 07-15-2024 Chronic Cardiac dysrhythmias (20 sources) Atrial fibrillation; Translations: [Unspecified atrial fibrillation] Onset: 03-20-2017 12-28-2017 Chronic Chronic kidney disease (7 sources) Chronic kidney disease stage 3A ; Translations: [Stage 3a chronic kidney disease (HCC)] Onset: 01-03-2024 01-03-2024 Chronic Chronic kidney disease (3 sources) Chronic kidney disease; Translations: [Chronic kidney disease, stage 3a (HCC)] Onset: 01-03-2024 Congestive heart failure; nonhypertensive (20 sources) Left heart failure; Translations: [Left ventricular failure, unspecified] Onset: 11-22-2023 01-03-2024 Chronic Disorders of lipid metabolism (8 sources) Hyperlipidemia; Translations: [Hyperlipidemia, unspecified] Onset: 11-08-2023 10-06-2023 Chronic Essential hypertension (20 sources) Hypertensive disorder; Translations: [Essential (primary) hypertension] Onset: 11-06-2015 11-06-2015 Chronic Heart valve disorders (20 sources) Nonrheumatic aortic (valve) stenosis; Translations: [History of aortic valve replacement] Onset: 11-06-2015 11-06-2015 Chronic Comment on above: #25 Medtronic Porcin e Valve 01/22/2013 @ [facility] per Dr. Rivero Late effects of cerebrovascular disease (8 sources) Aphasia following cerebral infarction; Translations: [Hemiplegia and hemiparesis following cerebral infarction affecting right dominant side] Onset: 03-27-2024 Chronic Nutritional deficiencies (2 sources) Vitamin D deficiency, unspecified; Translations: [Vitamin D deficiency, unspecified] Onset: 07-16-2024 Chronic Occlusion or stenosis of precerebral arteries (7 sources) Carotid artery stenosis; Translations: [Occlusion and stenosis of unspecified carotid artery] 01-05-2024 Chronic Osteoarthritis (20 sources) Osteoarthritis of knee; Translations: [Arthritis] Onset: 04-07-2016 04-14-2016 Chronic Other aftercare (7 sources) Long-term current use of anticoagulant; Translations: [half-way (current) use of anticoagulants] 11-22-2023 Episodic Other and ill-defined heart disease (1 source) Left ventricular cardiac dysfunction; Translations: [Heart disease, unspecified] 12-05-2023 Chronic Other and ill-defined heart disease (7 sources) Left ventricular hypertrophy; Translations: [Cardiomegaly] 10-06-2023 Chronic Other and ill-defined heart disease (1 source) Cardiomegaly; Translations: [Cardiomegaly] Onset: 11-08-2023 Chronic Other gastrointestinal disorders (7 sources) Occult blood in stools; Translations: [Other fecal abnormalities] 01-18-2024 Episodic Other lower respiratory disease (13 sources) Dyspnea on exertion; Translations: [Other forms of dyspnea] Onset: 12-29-2016 12-29-2016 Episodic Other lower respiratory disease (7 sources) Dyspnea; Translations: [Shortness of breath] 11-09-2023 Episodic Other nervous system disorders (2 sources) Other symbolic dysfunctions; Translations: [Other symbolic dysfunctions] Onset: 03-27-2024 Episodic Other non-epithelial cancer of skin (12 sources) History of malignant neoplasm of skin; Translations: [Personal history of other malignant neoplasm of skin] 02-04-2021 Episodic Other nutritional; endocrine; and metabolic disorders (12 sources) Body mass index (BMI) 38.0-38.9, adult; Translations: [Body mass index (BMI) 40.0-44.9, adult] Onset: 11-06-2015 11-10-2015 Chronic Other nutritional; endocrine; and metabolic disorders (7 sources) Morbid obesity; Translations: [Morbid (severe) obesity due to excess calories] 10-06-2023 Chronic Other nutritional; endocrine; and metabolic disorders (7 sources) Obesity; Translations: [Obesity, unspecified] 11-08-2023 Chronic Other nutritional; endocrine; and metabolic disorders (1 source) Obesity, unspecified; Translations: [Obesity, unspecified] Onset: 03-28-2024 Chronic Other skin disorders (12 sources) Actinic keratosis; Translations: [Actinic keratosis] 02-18-2021 Episodic Comment on above: 8 mm actinic lesion nasal tip 8 mm actinic lesion nasal dorsumscattered areas of actinic damage cheeks Residual codes; unclassified (12 sources) History of cardiac catheterization; Translations: [Other specified postprocedural states] 12-28-2017 Episodic Comment on above: 11/03/[address] Jeyson sánchez @ [facility], and 01/18/2013 per Kahlil Burgess Residual codes; unclassified (7 sources) Altered mental status; Translations: [Altered mental [...] of diagnostic agents, initial encounter] Onset: 11-21-2023 4 Episodic Other aftercare (18 sources) Polypharmacy ; Translations: [Other mcfp (current) drug therapy] Onset: 11-21-2023 11-21-2023 Episodic Other aftercare (2 sources) Other intermediate frame tender (current) drug therapy; Translations: [Other mcfp (current) drug therapy] Onset: 11-21-2023 Episodic Other gastrointestinal disorders (1 source) Other fecal abnormalities; Translations: [Other fecal abnormalities] Onset: 04-02-2024 Episodic Other lower respiratory disease (1 source) Other forms of dyspnea; Translations: [Other forms of dyspnea] Onset: 11-08-2023 Episodic Other non-traumatic joint disorders (9 sources) [...] lymphocyte countOrd ered By: Joe Sanchez on 09-24-2024 Lymphocytes Auto (Unsp spec) [#/Vol] 1.76 10*3/uL 0.83-4.51 [facility] Absolute neutrophil countOrd ered By: Joe Sanchez on 09-24-2024 Neutrophils (Bld) [#/Vol] 4.6 10*3/uL 2.0-7.7 [facility] Anion gap in Serum or Plasma Ordered By: Joe Sanchez on 09-24-2024 Anion gap [Moles/Vol] 13 mmol/L 5-15 [facility] Automated lymphocyte count a s percentage of total leukocytesOrdered By: Joe Sanchez on 09-24-2024 Lymphocytes/100 WBC Auto (Unsp spec) 23.7 % 19-41 [facility] BUN/creatinine ratioOrdered By: Joe Sanchez on 09-24-2024 Urea nitrogen/Creatinine [Mass ratio] 15.6 mg/mg 10-20 [facility] Basophil percentageOrdered B y: Joe Sanchez on 09-24-2024 Basophils/100 WBC (Bld) 1.3 % High 0-1 [facility] Carbon dioxide, total [Moles /volume] in Central venous bloodOrdered By: Joe Sanchez on 09-24-2024 CO2 [Moles/Vol] 26.0 mmol/L 21.0-32.0 [facility] Chloride assayOrdered By: Lluvia Sanchez on 09-24-2024 Chloride [Moles/Vol] 99 mmol/L 98-108 [facility] Eosinophil percentageOrdered By: Joe Sanchez on 09-24-2024 Eosinophils/100 WBC (Bld) 1.7 % 0-5 [facility] Erythrocyte distribution wid th ratioOrdered By: Joe Sanchez on 09-24-2024 Erythrocyte distribution width (RBC) [Ratio] 13.6 % 11.6-14.6 [facility] Erythrocyte distribution wid th standard deviationOrdered By: Joe Sanchez on 09-24-2024 Erythrocyte distribution width (RBC) [Ratio] 48.6 fl High 35.1-43.9 [facility] Glomerular filtration rate ( GFR) estimation/1.73 sq m using serum, plasma, or whole bOrdered By: Joe Sanchez on 09-24-2024 GFR/1.73 sq M.predicted among non-blacks MDRD (S/P/Bld) [Vol rate/Area] 28 mL/min/{1.73_m2} Low >60 [facility] Comment on above: mL/min/1.73m2 CKD-EP I Creatinine Equation (2020) Hematocrit Auto (Bld) [Volum e fraction]Ordered By: Joe Sanchez on 09-24-2024 Hematocrit (Bld) [Volume fraction] 42.5 % 37-47 [facility] Hemoglobin measurementOrdere d By: Joe Sanchez on 09-24-2024 Hemoglobin (Bld) [Mass/Vol] 14.1 g/dL 12.0-15.0 [facility] Immature granulocytes/100 WB C Auto (Bld)Ordered By: Joe Sanchez on 09-24-2024 Immature granulocytes/100 WBC (Bld) 0.700 % 0.0-0.9 [facility] Comment on above: IG% - Immature Granu locytes (promyelocytes, myelocytes and metamyelocytes) > 1% indicates that a LEFT SHIFT is Present. MCV (mean corpuscular volume ) determinationOrdered By: Joe Sanchez on 09-24-2024 MCV (RBC) [Entitic vol] 97.5 fL 81-99 [facility] Mean corpuscular hemoglobin (MCH) determinationOrdered By: Joe Sanchez on 09-24-2024 MCH (RBC) [Entitic mass] 32.3 pg High 27.0-32.0 [facility] Mean corpuscular hemoglobin concentration (MCHC) determinationOrdered By: Joe Sanchez on 09-24-2024 MCHC (RBC) [Mass/Vol] 33.2 g/dL 32-36 [facility] Mean platelet volume determi nationOrdered By: montez Sanchez on 09-24-2024 Platelet mean volume (Bld) [Entitic vol] 12.3 fL High 6.2-12.0 [facility] Monocyte percentageOrdered B y: Joe Sanchez on 09-24-2024 Monocytes/100 WBC (Bld) 10.8 % High 0-10 [facility] Neutrophil percentageOrdered By: claudiobethany beachlynnette Sanchez on 09-24-2024 Neutrophils/100 WBC (Bld) 61.8 % 47-70 [facility] Nucleated red blood cell per centageOrdered By: montez Sanchez on 09-24-2024 Nucleated RBC/100 WBC (Bld) [Ratio] 0 % 0-5 [facility] Platelet countOrdered By: Lluvia montez Arturoawaismilton on 09-24-2024 Platelets (Bld) [#/Vol] 204 10*3/uL 150-450 [facility] Potassium measurement (mass/ volume)Ordered By: Lluviaclaudiokayleigh Arturoawaismilton on 09-24-2024 Potassium (Unsp spec) [Mass/Vol] 4.3 mmol/L 3.3-5.1 [facility] Comment on above: Hemolysis present, R esults could be affected. RBC Auto (Bld) [#/Vol]Ordere d By: Lluviagenelynnette Morrisawaismilton on 09-24-2024 RBC (Bld) [#/Vol] 4.36 10*6/uL 4.2-5.4 [facility] Serum creatinine measurement (mass/volume)Ordered By: Lluviaclaudiomelissalynnette Morrisawaismilton on 09-24-2024 Creatinine [Mass/Vol] 1.76 mg/dL High 0.70-1.20 [facility] Serum glucose measurement (m ass/volume)Ordered By: Joe Morrisawaismilton on 09-24-2024 Glucose [Mass/Vol] 86 mg/dL 70-99 [facility] Serum or plasma calcium leah urement (mass/volume)Ordered By: Lluviaclaudiomelissalynnette Morrisawaismilton on 09-24-2024 Calcium [Mass/Vol] 9.6 mg/dL 7.6-11.0 [facility] Serum or plasma urea nitroge n measurement (mass/volume)Ordered By: Joe Morrisawaismilton on 09-24-2024 Urea nitrogen [Mass/Vol] 28 mg/dL High 4-19 [facility] Sodium levelOrdered By: Yudi victor Arturoawaismilton on 09-24-2024 Sodium [Moles/Vol] 139 mmol/L 133-145 [facility] White blood cell (WBC) count Ordered By: Yudimelissalynnette Morrisawaismilton on 09-24-2024 WBC (Bld) [#/Vol] 7.4 10*3/uL 4.4-11.0 [facility] Absolute lymphocyte countOrd ered By: Yudimelissalynnette Morrisawaismilton on 08-27-2024 Lymphocytes Auto (Unsp spec) [#/Vol] 1.87 10*3/uL 0.83-4.51 [facility] Absolute neutrophil countOrd ered By: Joe Sanchez on 08-27-2024 Neutrophils (Bld) [#/Vol] 4.2 10*3/uL 2.0-7.7 [facility] Anion gap in Serum or Plasma Ordered By: Joe Sanhcez on 08-27-2024 Anion gap [Moles/Vol] 12 mmol/L 5-15 [facility] Automated lymphocyte count a s percentage of total leukocytesOrdered By: Joe Sanchez on 08-27-2024 Lymphocytes/100 WBC Auto (Unsp spec) 27.1 % 19-41 [facility] BUN/creatinine ratioOrdered By: Joe Sanchez on 08-27-2024 Urea nitrogen/Creatinine [Mass ratio] 15.0 mg/mg 10- [facility] Basophil percentageOrdered B y: Joe Sanchez on 08-27-2024 Basophils/100 WBC (Bld) 1.0 % 0-1 [facility] Carbon dioxide, total [Moles /volume] in Central venous bloodOrdered By: Joe Sanchez on 08-27-2024 CO2 [Moles/Vol] 27.3 mmol/L 21.0-32.0 [facility] Chloride assayOrdered By: Lluvia Sanchez on 08-27-2024 Chloride [Moles/Vol] 99 mmol/L 98-108 [facility] Eosinophil percentageOrdered By: Joe Sanchez on 08-27-2024 Eosinophils/100 WBC (Bld) 2.0 % 0-5 [facility] Erythrocyte distribution wid th ratioOrdered By: Joe Sanchez on 08-27-2024 Erythrocyte distribution width (RBC) [Ratio] 13.7 % 11.6-14.6 [facility] Erythrocyte distribution wid th standard deviationOrdered By: Joe Sanchez on 08-27-2024 Erythrocyte distribution width (RBC) [Ratio] 49.1 fl High 35.1-43.9 [facility] Glomerular filtration rate ( GFR) estimation/1.73 sq m using serum, plasma, or whole bOrdered By: Joe Sanchez on 08-27-2024 GFR/1.73 sq M.predicted among non-blacks MDRD (S/P/Bld) [Vol rate/Area] 29 mL/min/{1.73_m2} Low >60 [facility] Comment on above: mL/min/1.73m2 CKD-EP I Creatinine Equation (2020) Hematocrit Auto (Bld) [Volum e fraction]Ordered By: Joe Sanchez on 08-27-2024 Hematocrit (Bld) [Volume fraction] 42.3 % 37-47 [facility] Hemoglobin measurementOrdere d By: Joe Sanchez on 08-27-2024 Hemoglobin (Bld) [Mass/Vol] 13.8 g/dL 12.0-15.0 [facility] Immature granulocytes/100 WB C Auto (Bld)Ordered By: Joe Sanchez on 08-27-2024 Immature granulocytes/100 WBC (Bld) 0.400 % 0.0-0.9 [facility] Comment on above: IG% - Immature Granu locytes (promyelocytes, myelocytes and metamyelocytes) > 1% indicates that a LEFT SHIFT is Present. MCV (mean corpuscular volume ) determinationOrdered By: Joe Sanchez on 08-27-2024 MCV (RBC) [Entitic vol] 96.8 fL 81-99 [facility] Mean corpuscular hemoglobin (MCH) determinationOrdered By: Joe Sanchez on 08-27-2024 MCH (RBC) [Entitic mass] 31.6 pg 27.0-32.0 [facility] Mean corpuscular hemoglobin concentration (MCHC) determinationOrdered By: Joe Sanchez on 08-27-2024 MCHC (RBC) [Mass/Vol] 32.6 g/dL 32-36 [facility] Mean platelet volume determi nationOrdered By: Joe Sanchez on 08-27-2024 Platelet mean volume (Bld) [Entitic vol] 12.5 fL High 6.2-12.0 [facility] Monocyte percentageOrdered B y: Joe Sanchez on 08-27-2024 Monocytes/100 WBC (Bld) 9.4 % 0-10 [facility] Neutrophil percentageOrdered By: Joe Sanchez on 08-27-2024 Neutrophils/100 WBC (Bld) 60.1 % 47-[facility] [facility] Nucleated red blood cell per centageOrdered By: Joe Sanchez on 08-27-2024 Nucleated RBC/100 WBC (Bld) [Ratio] 0 % 0-5 [facility] Platelet countOrdered By: Lluvia Sanchez on 08-27-2024 Platelets (Bld) [#/Vol] 196 10*3/uL 150-450 [facility] Potassium measurement (mass/ volume)Ordered By: Joe Sanchez on 08-27-2024 Potassium (Unsp spec) [Mass/Vol] 4.1 mmol/L 3.3-5.1 [facility] RBC Auto (Bld) [#/Vol]Ordere d By: Joe Sanchez on 08-27-2024 RBC (Bld) [#/Vol] 4.37 10*6/uL 4.2-5.4 [facility] Serum creatinine measurement (mass/volume)Ordered By: Joe Sanchez on 08-27-2024 Creatinine [Mass/Vol] 1.74 mg/dL High 0.70-1.20 [facility] Serum glucose measurement (m ass/volume)Ordered By: Joe Sanchez on 08-27-2024 Glucose [Mass/Vol] 103 mg/dL High 70-99 [facility] Serum or plasma calcium leah urement (mass/volume)Ordered By: Joe Sanchez on 08-27-2024 Calcium [Mass/Vol] 9.5 mg/dL 7.6-11.0 [facility] Serum or plasma urea nitroge n measurement (mass/volume)Ordered By: Joe Sanchez on 08-27-2024 Urea nitrogen [Mass/Vol] 26 mg/dL High 4-19 [facility] Sodium levelOrdered By: Yudi Sanchez on 08-27-2024 Sodium [Moles/Vol] 138 mmol/L 133-145 [facility] White blood cell (WBC) count Ordered By: Joe Sanchez on 08-27-2024 WBC (Bld) [#/Vol] 6.9 10*3/uL 4.4-11.0 [facility] Absolute lymphocyte countOrd ered By: Yudimelissalynnette Morrisawaismilton on 07-30-2024 Lymphocytes Auto (Unsp spec) [#/Vol] 1.85 10*3/uL 0.83-4.51 [facility] Absolute neutrophil countOrd ered By: Joe Morrisawaismilton on 07-30-2024 Neutrophils (Bld) [#/Vol] 3.8 10*3/uL 2.0-7.7 [facility] Anion gap in Serum or Plasma Ordered By: Joe Sanchez on 07-30-2024 Anion gap [Moles/Vol] 12 mmol/L 5-15 [facility] Automated lymphocyte count a s percentage of total leukocytesOrdered By: Joe Sanchez on 07-30-2024 Lymphocytes/100 WBC Auto (Unsp spec) 28.5 % 19-41 [facility] BUN/creatinine ratioOrdered By: Joe Sanchez on 07-30-2024 Urea nitrogen/Creatinine [Mass ratio] 14.9 mg/mg 10-20 [facility] Basophil percentageOrdered B y: Joe Sanchez on 07-30-2024 Basophils/100 WBC (Bld) 1.1 % High 0-1 [facility] Carbon dioxide, total [Moles /volume] in Central venous bloodOrdered By: Joe Sanchez on 07-30-2024 CO2 [Moles/Vol] 26.5 mmol/L 21.0-32.0 [facility] Chloride assayOrdered By: Lluvia Sanchez on 07-30-2024 Chloride [Moles/Vol] 100 mmol/L 98-108 [facility] Eosinophil percentageOrdered By: Joe Sanchez on 07-30-2024 Eosinophils/100 WBC (Bld) 1.8 % 0-5 [facility] Erythrocyte distribution wid th ratioOrdered By: Joe Sanchez on 07-30-2024 Erythrocyte distribution width (RBC) [Ratio] 14.2 % 11.6-14.6 [facility] Erythrocyte distribution wid th standard deviationOrdered By: Joe Sanchez on 07-30-2024 Erythrocyte distribution width (RBC) [Ratio] 52.9 fl High 35.1-43.9 [facility] Glomerular filtration rate ( GFR) estimation/1.73 sq m using serum, plasma, or whole bOrdered By: Joe Sanchez on 07-30-2024 GFR/1.73 sq M.predicted among non-blacks MDRD (S/P/Bld) [Vol rate/Area] 26 mL/min/{1.73_m2} Low >60 [facility] Comment on above: mL/min/1.73m2 CKD-EP I Creatinine Equation (2020) Hematocrit Auto (Bld) [Volum e fraction]Ordered By: Joe Sanchez on 07-30-2024 Hematocrit (Bld) [Volume fraction] 41.4 % 37-47 [facility] Hemoglobin measurementOrdere d By: Joe Sanchez on 07-30-2024 Hemoglobin (Bld) [Mass/Vol] 13.5 g/dL 12.0-15.0 [facility] Immature granulocytes/100 WB C Auto (Bld)Ordered By: Joe Sanchez 07-30-2024 Immature granulocytes/100 WBC (Bld) 0.800 % 0.0-0.9 [facility] Comment on above: IG% - Immature Granu locytes (promyelocytes, myelocytes and metamyelocytes) > 1% indicates that a LEFT SHIFT is Present. MCV (mean corpuscular volume ) determinationOrdered By: Joe Sanchez on 07-30-2024 MCV (RBC) [Entitic vol] 102.7 fL High 81-99 [facility] Mean corpuscular hemoglobin (MCH) determinationOrdered By: Joe Sanchez 07-30-2024 MCH (RBC) [Entitic mass] 33.5 pg High 27.0-32.0 [facility] Mean corpuscular hemoglobin concentration (MCHC) determinationOrdered By: Joe Sanchez 07-30-2024 MCHC (RBC) [Mass/Vol] 32.6 g/dL 32-36 [facility] Mean platelet volume determi nationOrdered By: Joe Sanchez on 07-30-2024 Platelet mean volume (Bld) [Entitic vol] 11.8 fL 6.2-12.0 [facility] Monocyte percentageOrdered B y: Joe Sanchez on 07-30-2024 Monocytes/100 WBC (Bld) 9.2 % 0-10 [facility] Neutrophil percentageOrdered By: Jeo Sanchez on 07-30-2024 Neutrophils/100 WBC (Bld) 58.6 % 47-70 [facility] Nucleated red blood cell per centageOrdered By: Joe Sanchez on 07-30-2024 Nucleated RBC/100 WBC (Bld) [Ratio] 0 % 0-5 [facility] Platelet countOrdered By: Lluvia claudiokayleigh Sanchez on 07-30-2024 Platelets (Bld) [#/Vol] 167 10*3/uL 150-450 [facility] Potassium measurement (mass/ volume)Ordered By: Joe Sanchez on 07-30-2024 Potassium (Unsp spec) [Mass/Vol] 4.3 mmol/L 3.3-5.1 [facility] Comment on above: Hemolysis present, R esults could be affected. RBC Auto (Bld) [#/Vol]Ordere d By: Joe Sanchez on 07-30-2024 RBC (Bld) [#/Vol] 4.03 10*6/uL Low 4.2-5.4 [facility] Serum creatinine measurement (mass/volume)Ordered By: Joe Sanchez on 07-30-2024 Creatinine [Mass/Vol] 1.87 mg/dL High 0.70-1.20 [facility] Serum glucose measurement (m ass/volume)Ordered By: Joe Sanchez on 07-30-2024 Glucose [Mass/Vol] 89 mg/dL 70-99 [facility] Serum or plasma calcium leah urement (mass/volume)Ordered By: Joe Sanchez on 07-30-2024 Calcium [Mass/Vol] 9.4 mg/dL 7.6-11.0 [facility] Serum or plasma urea nitroge n measurement (mass/volume)Ordered By: Joe Sanchez on 07-30-2024 Urea nitrogen [Mass/Vol] 28 mg/dL High 4-19 [facility] Sodium levelOrdered By: Yudi Sanchez on 07-30-2024 Sodium [Moles/Vol] 138 mmol/L 133-145 [facility] White blood cell (WBC) count Ordered By: Joe Sanchez on 07-30-2024 WBC (Bld) [#/Vol] 6.5 10*3/uL 4.4-11.0 [facility] Bilirubin directOrdered By: Joe Sanchez on 07-15-2024 Bilirubin.direct [Mass/Vol] 0.26 mg/dL 0.00-0.30 [facility] Bilirubin, totalOrdered By: Joe Sanchez on 07-15-2024 Bilirubin [Mass/Vol] 0.62 mg/dL 0.00-1.30 [facility] Calculated very low density lipoprotein (VLDL) cholesterol measurementOrdered By: Joe Sanchez on 07-15-2024 Calculated very low density lipoprotein (VLDL) cholesterol measurement 20 mg/dL 5-40 [facility] Hemoglobin A1c percentageOrd ered By: Joe Sanchez on 07-15-2024 HbA1c (Bld) [Mass fraction] 5.5 % <5.7 [facility] Comment on above: Normal < 5.7 % Predi abetic 5.7 - 6.4 % Diabetic >or= 6.5 % Please note range changes. LDL calc ser/plasOrdered By: Joe Sanchez on 07-15-2024 Cholesterol in LDL [Mass/Vol] 86 mg/dL [facility] Comment on above: Kjyjsegcyy=531-246 m g/dL & Higher Zewk=039 mg/dL or greater Laboratory - Chemistry and C hemistry - challengeOrdered By: Joe Sanchez on 07-15-2024 AST [Catalytic activity/Vol] 19 U/L <32 [facility] Screening total cholesterol/ high density lipoprotein (HDL) cholesterol ratioOrdered By: Joe Sanchez 07-15-2024 Cholesterol.total/Shannon sterol in HDL [Mass ratio] 3.91 {ratio} [facility] Serum globulin measurementOr dered By: Joe Sanchez on 07-15-2024 Globulin (S) [Mass/Vol] 3.2 g/dL 2.2-4.2 [facility] Serum or plasma alanine kilpatrick otransferase (ALT) measurementOrdered By: Joe Sanchez 07-15-2024 ALT [Catalytic activity/Vol] 7 U/L <35 [facility] Serum or plasma albumin leah urement (mass/volume)Ordered By: Joe Sanchez 07-15-2024 Albumin [Mass/Vol] 3.4 g/dL 3.4-4.8 [facility] Serum or plasma alkaline kirti sphatase measurementOrdered By: Joe Sanchez 07-15-2024 ALP [Catalytic activity/Vol] 67 U/L 35-104 [facility] Serum or plasma cholesterol in HDL measurement (mass/volume)Ordered By: Joe Sanchez 07-15-2024 Cholesterol in HDL [Mass/Vol] 36 mg/dL Low >40 [facility] Comment on above: National Cholesterol Education Program (NCEP) guidelines:<40 mg/dL: Low HDL-cholesterol (major risk factor for CHD)>= 60 mg/dL: High HDL-cholesterol (negative risk factor for CHD)HDL-cholesterol is affected by a number of factors, e.g. smoking, exercise, hormones, sex and age. Serum or plasma cholesterol measurement (mass/volume)Ordered By: Joe Sanchez on 07-15-2024 Cholesterol [Mass/Vol] 142 mg/dL <201 [facility] Comment on above: Cholesterol level, D esirable <200 mg/dLBorderline high cholesterol 200-239 mg/dLHigh cholesterol >=240 mg/dLRecommendations of the NCEP Adult Treatment Panel for the following risk-cutoff thresholds for the [place] population. Total proteinOrdered By: Constantin Sanchez on 07-15-2024 Protein [Mass/Vol] 6.7 g/dL 5.9-8.4 [facility] Triglycerides measurementOrd ered By: Joe Sanchez 07-15-2024 Triglyceride [Mass/Vol] 101 mg/dL <199 [facility] Comment on above: The drugs N-Acetylcy steine and Metamizole may falsely depress this assay. Normal range: <150 mg/dLBorderline High: 150-199 mg/dLHigh: 200-499 mg/dLVery High: >500 mg/dL Absolute lymphocyte countOrd ered By: Joe Sanchez on 07-02-2024 Lymphocytes Auto (Unsp spec) [#/Vol] 1.69 10*3/uL 0.83-4.51 [facility] Absolute neutrophil countOrd ered By: Joe Sanchez on 07-02-2024 Neutrophils (Bld) [#/Vol] 4.5 10*3/uL 2.0-7.7 [facility] Anion gap in Serum or Plasma Ordered By: Joe Sanchez on 07-02-2024 Anion gap [Moles/Vol] 13 mmol/L 5- [facility] Automated lymphocyte count a s percentage of total leukocytesOrdered By: Joe Sanchez on 07-02-2024 Lymphocytes/100 WBC Auto (Unsp spec) 23.8 % 19-41 [facility] BUN/creatinine ratioOrdered By: Joe Sanchez on 07-02-2024 Urea nitrogen/Creatinine [Mass ratio] 16.6 mg/mg 10-20 [facility] Basophil percentageOrdered B y: Joe Sanchez on 07-02-2024 Basophils/100 WBC (Bld) 1.0 % 0-1 [facility] Carbon dioxide, total [Moles /volume] in Central venous bloodOrdered By: Joe Sanchez on 07-02-2024 CO2 [Moles/Vol] 26.0 mmol/L 21.0-32.0 [facility] Chloride assayOrdered By: Lluvia Sanchez on 07-02-2024 Chloride [Moles/Vol] 99 mmol/L 98-108 [facility] Eosinophil percentageOrdered By: Joe Sanchez on 07-02-2024 Eosinophils/100 WBC (Bld) 1.7 % 0-5 [facility] Erythrocyte distribution wid th ratioOrdered By: Joe Sanchez on 07-02-2024 Erythrocyte distribution width (RBC) [Ratio] 13.5 % 11.6-14.6 [facility] Erythrocyte distribution wid th standard deviationOrdered By: Joe Sanchez on 07-02-2024 Erythrocyte distribution width (RBC) [Ratio] 47.8 fl High 35.1-43.9 [facility] Glomerular filtration rate ( GFR) estimation/1.73 sq m using serum, plasma, or whole bOrdered By: Joe Sanchez on 07-02-2024 GFR/1.73 sq M.predicted among non-blacks MDRD (S/P/Bld) [Vol rate/Area] 28 mL/min/{1.73_m2} Low >60 [facility] Comment on above: mL/min/1.73m2 CKD-EP I Creatinine Equation (2020) Hematocrit Auto (Bld) [Volum e fraction]Ordered By: claudiobethany beachlynnette Sanchez 07-02-2024 Hematocrit (Bld) [Volume fraction] 41.2 % 37-47 [facility] Hemoglobin measurementOrdere d By: Joe Sanchez 07-02-2024 Hemoglobin (Bld) [Mass/Vol] 13.8 g/dL 12.0-15.0 [facility] Immature granulocytes/100 WB C Auto (Bld)Ordered By: Joe Sanchez 07-02-2024 Immature granulocytes/100 WBC (Bld) 0.600 % 0.0-0.9 [facility] Comment on above: IG% - Immature Granu locytes (promyelocytes, myelocytes and metamyelocytes) > 1% indicates that a LEFT SHIFT is Present. MCV (mean corpuscular volume ) determinationOrdered By: Joe Sanchez 07-02-2024 MCV (RBC) [Entitic vol] 95.8 fL 81-99 [facility] Mean corpuscular hemoglobin (MCH) determinationOrdered By: Joe Sanchez 07-02-2024 MCH (RBC) [Entitic mass] 32.1 pg High 27.0-32.0 [facility] Mean corpuscular hemoglobin concentration (MCHC) determinationOrdered By: Joe Sanchez on 07-02-2024 MCHC (RBC) [Mass/Vol] 33.5 g/dL 32-36 [facility] Mean platelet volume determi nationOrdered By: Joe Sanchez on 07-02-2024 Platelet mean volume (Bld) [Entitic vol] 12.6 fL High 6.2-12.0 [facility] Monocyte percentageOrdered B y: Joe Sancehz on 07-02-2024 Monocytes/100 WBC (Bld) 9.8 % 0-10 [facility] Neutrophil percentageOrdered By: Joe Sanchez on 07-02-2024 Neutrophils/100 WBC (Bld) 63.1 % 47-70 [facility] Nucleated red blood cell per centageOrdered By: Joe Sanchez on 07-02-2024 Nucleated RBC/100 WBC (Bld) [Ratio] 0 % 0-5 [facility] Platelet countOrdered By: Lluvia claudiokayleigh Sanchez on 07-02-2024 Platelets (Bld) [#/Vol] 210 10*3/uL 150-450 [facility] Potassium measurement (mass/ volume)Ordered By: Joe Sanchez on 07-02-2024 Potassium (Unsp spec) [Mass/Vol] 4.4 mmol/L 3.3-5.1 [facility] Comment on above: Hemolysis present, R esults could be affected. RBC Auto (Bld) [#/Vol]Ordere d By: Joe Sanchez on 07-02-2024 RBC (Bld) [#/Vol] 4.30 10*6/uL 4.2-5.4 [facility] Serum creatinine measurement (mass/volume)Ordered By: Joe Sanchez on 07-02-2024 Creatinine [Mass/Vol] 1.78 mg/dL High 0.70-1.20 [facility] Serum glucose measurement (m ass/volume)Ordered By: Joe Sanchez on 07-02-2024 Glucose [Mass/Vol] 100 mg/dL High 70-99 [facility] Serum or plasma calcium leah urement (mass/volume)Ordered By: Joe Sanchez on 07-02-2024 Calcium [Mass/Vol] 9.5 mg/dL 7.6-11.0 [facility] Serum or plasma urea nitroge n measurement (mass/volume)Ordered By: Joe Sanchez on 07-02-2024 Urea nitrogen [Mass/Vol] 30 mg/dL High 4-19 [facility] Sodium levelOrdered By: Yudi kirbydrew Daniel on 07-02-2024 Sodium [Moles/Vol] 138 mmol/L 133-145 [facility] White blood cell (WBC) count Ordered By: Joe Sanchez on 07-02-2024 WBC (Bld) [#/Vol] 7.1 10*3/uL 4.4-11.0 [facility] Vitamin D, 25-hydroxyOrdered By: Joe Sanchez on 06-18-2024 Vitamin D 25-Hydroxy 23.4 ng/mL Low 30-100 [facility] Comment on above: Vitamin D StatusDefi ciency: <20 ng/mL (50nmol/L)Insufficiency: 20-30 ng/mL (50-75 nmol/L)Sufficiency: 30-100 ng/mL (75-250 nmol/L)Toxicity: >100 ng/mL (>250 nmol/L) Absolute lymphocyte countOrd ered By: Joe Sanchez on 06-04-2024 Lymphocytes Auto (Unsp spec) [#/Vol] 1.61 10*3/uL 0.83-4.51 [facility] Absolute neutrophil countOrd ered By: Joe Sanchez on 06-04-2024 Neutrophils (Bld) [#/Vol] 5.3 10*3/uL 2.0-7.7 [facility] Anion gap in Serum or Plasma Ordered By: Joe Sanchez on 06-04-2024 Anion gap [Moles/Vol] 13 mmol/L 5-15 [facility] Automated lymphocyte count a s percentage of total leukocytesOrdered By: Joe Sanchez on 06-04-2024 Lymphocytes/100 WBC Auto (Unsp spec) 19.9 % 19-41 [facility] BUN/creatinine ratioOrdered By: Joe Sanchez on 06-04-2024 Urea nitrogen/Creatinine [Mass ratio] 16.0 mg/mg 10-20 [facility] Basophil percentageOrdered B y: Yudimelissalynnette Sanchez on 06-04-2024 Basophils/100 WBC (Bld) 1.1 % High 0-1 [facility] Carbon dioxide, total [Moles /volume] in Central venous bloodOrdered By: Joe Sanchez on 06-04-2024 CO2 [Moles/Vol] 26.2 mmol/L 21.0-32.0 [facility] Chloride assayOrdered By: Lluvia claudiokayleigh Sanchez on 06-04-2024 Chloride [Moles/Vol] 99 mmol/L 98-108 [facility] Eosinophil percentageOrdered By: Joe Sanchez on 06-04-2024 Eosinophils/100 WBC (Bld) 2.2 % 0-5 [facility] Erythrocyte distribution wid th (RBC) [Ratio]Ordered By: Joe Sanchez on 06-04-2024 Erythrocyte distribution width (RBC) [Entitic vol] 46.8 fL High 35.1-43.9 [facility] Erythrocyte distribution wid th ratioOrdered By: Joe Sanchez on 06-04-2024 Erythrocyte distribution width (RBC) [Ratio] 13.2 % 11.6-14.6 [facility] Erythrocyte distribution wid th standard deviationOrdered By: Yudimelissalynnette Morrisawaismilton on 06-04-2024 Erythrocyte distribution width (RBC) [Ratio] 46.8 fl High 35.1-43.9 [facility] GFR/1.73 sq M.predicted venkata g non-blacks MDRD (S/P/Bld) [Vol rate/Area]Ordered By: Joe Sanchez on 06-04-2024 Estimated GFR (MDRD) Non-Af Amer 29 Low >60 [facility] Comment on above: mL/min/1.73m2 CKD-EP I Creatinine Equation (2020) Glomerular filtration rate ( GFR) estimation/1.73 sq m using serum, plasma, or whole bOrdered By: Joe Sanchez on 06-04-2024 GFR/1.73 sq M.predicted among non-blacks MDRD (S/P/Bld) [Vol rate/Area] 29 mL/min/{1.73_m2} Low >60 [facility] Comment on above: mL/min/1.73m2 CKD-EP I Creatinine Equation (2020) Hematocrit Auto (Bld) [Volum e fraction]Ordered By: Joe Sanchez on 06-04-2024 Hematocrit (Bld) [Volume fraction] 43.1 % 37-47 [facility] Hemoglobin measurementOrdere d By: Joe Sanchez on 06-04-2024 Hemoglobin (Bld) [Mass/Vol] 14.2 g/dL 12.0-15.0 [facility] Immature granulocytes/100 WB C Auto (Bld)Ordered By: Joe Sanchez on 06-04-2024 Immature granulocytes/100 WBC (Bld) 0.600 % 0.0-0.9 [facility] Comment on above: IG% - Immature Granu locytes (promyelocytes, myelocytes and metamyelocytes) > 1% indicates that a LEFT SHIFT is Present. Lymphocytes Auto (Unsp spec) [#/Vol]Ordered By: Joe Sanchez on 06-04-2024 Lymphocytes (Bld) [#/Vol] 1.61 10*3/uL 0.83-4.51 [facility] Lymphocytes/100 WBC Auto (Un sp spec)Ordered By: Joe Sanchez on 06-04-2024 Lymphocytes/100 WBC (Bld) 19.9 % 19-41 [facility] MCV (mean corpuscular volume ) determinationOrdered By: Joe Sanchez on 06-04-2024 MCV (RBC) [Entitic vol] 96.9 fL 81-99 [facility] Mean corpuscular hemoglobin (MCH) determinationOrdered By: Joe Sanchez on 06-04-2024 MCH (RBC) [Entitic mass] 31.9 pg 27.0-32.0 [facility] Mean corpuscular hemoglobin concentration (MCHC) determinationOrdered By: Joe Sanchez on 06-04-2024 MCHC (RBC) [Mass/Vol] 32.9 g/dL 32-36 [facility] Mean platelet volume determi nationOrdered By: Joe Sanchez on 06-04-2024 Platelet mean volume (Bld) [Entitic vol] 12.3 fL High 6.2-12.0 [facility] Monocyte percentageOrdered B y: Joe Chaumilton on 06-04-2024 Monocytes/100 WBC (Bld) 10.4 % High 0-10 [facility] Neutrophil percentageOrdered By: Lluviamontez Morrisawaismilton on 06-04-2024 Neutrophils/100 WBC (Bld) 65.8 % 47-70 [facility] Nucleated red blood cell per centageOrdered By: Lluviaclaudiokayleigh Arturoawaismilton on 06-04-2024 Nucleated RBC/100 WBC (Bld) [Ratio] 0 % 0-5 [facility] Platelet countOrdered By: Lluvia egnelynnette Morrisawaismilton on 06-04-2024 Platelets (Bld) [#/Vol] 216 10*3/uL 150-450 [facility] Potassium (Unsp spec) [Mass/ Vol]Ordered By: Joe Morrisawaismilton on 06-04-2024 Potassium [Moles/Vol] 4.5 mmol/L 3.3-5.1 [facility] Potassium measurement (mass/ volume)Ordered By: Joe Sanchez on 06-04-2024 Potassium (Unsp spec) [Mass/Vol] 4.5 mmol/L 3.3-5.1 [facility] RBC Auto (Bld) [#/Vol]Ordere d By: Lluviamontez Arturoawaismilton on 06-04-2024 RBC (Bld) [#/Vol] 4.45 10*6/uL 4.2-5.4 [facility] Serum creatinine measurement (mass/volume)Ordered By: Joe Sanchez on 06-04-2024 Creatinine [Mass/Vol] 1.74 mg/dL High 0.70-1.20 [facility] Serum glucose measurement (m ass/volume)Ordered By: Joe Sanchez on 06-04-2024 Glucose [Mass/Vol] 91 mg/dL 70-99 [facility] Serum or plasma calcium leah urement (mass/volume)Ordered By: Joe Sanchez on 06-04-2024 Calcium [Mass/Vol] 9.5 mg/dL 7.6-11.0 [facility] Serum or plasma urea nitroge n measurement (mass/volume)Ordered By: Joe Sanchez on 06-04-2024 Urea nitrogen [Mass/Vol] 28 mg/dL High 4-19 [facility] Sodium levelOrdered By: Yudi kirbydrew Daniel on 06-04-2024 Sodium [Moles/Vol] 138 mmol/L 133-145 [facility] White blood cell (WBC) count Ordered By: Joe Sanchez on 06-04-2024 WBC (Bld) [#/Vol] 8.1 10*3/uL 4.4-11.0 [facility] Absolute lymphocyte countOrd ered By: Joe Sanchez on 05-07-2024 Lymphocytes Auto (Unsp spec) [#/Vol] 1.40 10*3/uL 0.83-4.51 [facility] Absolute neutrophil countOrd ered By: Joe Sanchez on 05-07-2024 Neutrophils (Bld) [#/Vol] 5.1 10*3/uL 2.0-7.7 [facility] Automated lymphocyte count a s percentage of total leukocytesOrdered By: Joe Sanchez on 05-07-2024 Lymphocytes/100 WBC Auto (Unsp spec) 19.1 % 19-41 [facility] Basophil percentageOrdered B y: Joe Sanchez on 05-07-2024 Basophils/100 WBC (Bld) 1.0 % 0-1 [facility] Blood urea nitrogen (BUN)/cr eatinine ratioOrdered By: Joe Sanchez on 05-07-2024 Urea nitrogen/Creatinine [Mass ratio] 13.9 mg/mg 10-20 [facility] Carbon dioxide measurementOr dered By: Joe Sanchez on 05-07-2024 CO2 [Moles/Vol] 28.0 mmol/L 21.0-32.0 [facility] Chloride measurementOrdered By: Joe Sanchez on 05-07-2024 Chloride [Moles/Vol] 101 mmol/L 98-107 [facility] Eosinophil percentageOrdered By: Joe Sanchez on 05-07-2024 Eosinophils/100 WBC (Bld) 2.7 % 0-5 [facility] Erythrocyte distribution wid th (RBC) [Ratio]Ordered By: Joe Sanchez on 05-07-2024 Erythrocyte distribution width (RBC) [Entitic vol] 48.3 fL High 35.1-43.9 [facility] Erythrocyte distribution wid th ratioOrdered By: Joe Sanchez on 05-07-2024 Erythrocyte distribution width (RBC) [Ratio] 13.5 % 11.6-14.6 [facility] Erythrocyte distribution wid th standard deviationOrdered By: montez Sanchez on 05-07-2024 Erythrocyte distribution width (RBC) [Ratio] 48.3 fl High 35.1-43.9 [facility] Estimated glomerular filtrat ion rate (GFR) AmericanOrdered By: Joe Sanchez on 05-07-2024 Estimated GFR (MDRD) Amer 29 mL/min Low >60 [facility] Comment on above: GFR Calc Glomerular filtration rate ( GFR) estimationOrdered By: Joe Sanchez on 05-07-2024 Estimated GFR (MDRD) Non-Af Amer 24 mL/min Low >60 [facility] Comment on above: Non- GFR Calc GFR/1.73 sq M.predicted among non-blacks MDRD (S/P/Bld) [Vol rate/Area] 24 mL/min/{1.73_m2} Low >60 [facility] Comment on above: Non- GFR Calc Glucose measurementOrdered B y: Joe Sanchez on 05-07-2024 Glucose [Mass/Vol] 122 mg/dL High 74-106 [facility] Comment on above: Fasting Glucose resu lt from 100 to 125 mg/dL suggests IMPAIRED HOMEOSTASIS per A.D.A. criteria. Hematocrit Auto (Bld) [Volum e fraction]Ordered By: Joe Sanchez on 05-07-2024 Hematocrit (Bld) [Volume fraction] 41.3 % 37-47 [facility] Hemoglobin measurementOrdere d By: Joe Sanchez on 05-07-2024 Hemoglobin (Bld) [Mass/Vol] 13.4 g/dL 12.0-15.0 [facility] Immature granulocytes/100 WB C Auto (Bld)Ordered By: Joe Sanchez on 05-07-2024 Immature granulocytes/100 WBC (Bld) 0.700 % 0.0-0.9 [facility] Comment on above: IG% - Immature Granu locytes (promyelocytes, myelocytes and metamyelocytes) > 1% indicates that a LEFT SHIFT is Present. Lymphocytes Auto (Unsp spec) [#/Vol]Ordered By: Joe Sanchez on 05-07-2024 Lymphocytes (Bld) [#/Vol] 1.40 10*3/uL 0.83-4.51 [facility] Lymphocytes/100 WBC Auto (Un sp spec)Ordered By: Joe Sanchez on 05-07-2024 Lymphocytes/100 WBC (Bld) 19.1 % 19-41 [facility] MCV (mean corpuscular volume ) determinationOrdered By: Joe Sanchez on 05-07-2024 MCV (RBC) [Entitic vol] 98.6 fL 81-99 [facility] Mean corpuscular hemoglobin (MCH) determinationOrdered By: Yudibethany beachlynnette Sanchez on 05-07-2024 MCH (RBC) [Entitic mass] 32.0 pg 27.0-32.0 [facility] Mean corpuscular hemoglobin concentration (MCHC) determinationOrdered By: Joe Sanchez on 05-07-2024 MCHC (RBC) [Mass/Vol] 32.4 g/dL 32-36 [facility] Mean platelet volume determi nationOrdered By: Joe Sanchez on 05-07-2024 Platelet mean volume (Bld) [Entitic vol] 12.6 fL High 6.2-12.0 [facility] Monocyte percentageOrdered B y: Joe Sanchez on 05-07-2024 Monocytes/100 WBC (Bld) 7.4 % 0-10 [facility] Neutrophil percentageOrdered By: Joe Sanchez on 05-07-2024 Neutrophils/100 WBC (Bld) 69.1 % 47-70 [facility] Nucleated red blood cell per centageOrdered By: Joe Sanchez on 05-07-2024 Nucleated RBC/100 WBC (Bld) [Ratio] 0 % 0-5 [facility] Platelet countOrdered By: Lluvia genelynnette Sanchez on 05-07-2024 Platelets (Bld) [#/Vol] 194 10*3/uL 150-450 [facility] Potassium measurementOrdered By: Joe Morrisawaismilton on 05-07-2024 Potassium [Moles/Vol] 3.6 mmol/L 3.5-5.1 [facility] RBC Auto (Bld) [#/Vol]Ordere d By: Joe Morrisawaismilton on 05-07-2024 RBC (Bld) [#/Vol] 4.19 10*6/uL Low 4.2-5.4 [facility] Serum anion gap measurementO rdered By: Yudimelissalynnette Morrisawaismilton on 05-07-2024 Anion gap [Moles/Vol] 10 mmol/L 5-15 [facility] Serum or plasma calcium leah urement (mass/volume)Ordered By: Joe Sanchez on 05-07-2024 Calcium [Mass/Vol] 9.3 mg/dL 8.5-10.1 [facility] Serum or plasma creatinine m easurement (mass/volume)Ordered By: Joe Morrisawaismilton on 05-07-2024 Creatinine [Mass/Vol] 2.08 mg/dL High 0.55-1.02 [facility] Comment on above: The validity of the calculated GFR & GFRAA in patients over 70 years has not been determined. Clinical correlation is essential. Serum or plasma urea nitroge n measurement (mass/volume)Ordered By: Joe Sanchez on 05-07-2024 Urea nitrogen [Mass/Vol] 29 mg/dL High 7-18 [facility] Sodium levelOrdered By: Yudi kirbydrew Arturoawaismilton on 05-07-2024 Sodium [Moles/Vol] 139 mmol/L 136-145 [facility] White blood cell (WBC) count Ordered By: Joe Morrisawaismilton on 05-07-2024 WBC (Bld) [#/Vol] 7.3 10*3/uL 4.4-11.0 [facility] [id number] DOrdered By: Milton Sanchez on 04-22-2024 Vitamin D 25-Hydroxy 69.4 ng/mL [facility] Comment on above: Vitamin D 25(OH) Sta tus Range Deficiency <20 ng/mL (50nmol/L) Insufficiency 20 - 30 ng/mL (50 - 75 nmol/L) Sufficiency 30 - 100 ng/mL (75 - 250 nmol/L) Toxicity >100 ng/mL (>250 nmol/L) Bilirubin directOrdered By: Joe Sanchez on 04-22-2024 Bilirubin.direct [Mass/Vol] 0.29 mg/dL 0.00-0.30 [facility] Bilirubin, totalOrdered By: Joe Sanchez on 04-22-2024 Bilirubin [Mass/Vol] 0.90 mg/dL 0.20-1.00 [facility] Comment on above: For patients on eltr ombopag therapy, use of Dimension Hol[place] TBIL is not recommended. Hemoglobin A1c percentageOrd ered By: Joe Sanchez on 04-22-2024 HbA1c (Bld) [Mass fraction] 5.2 % 3.8-5.6 [facility] Comment on above: Normal < 5.7 % Predi abetic 5.7 - 6.4 % Diabetic >or= 6.5 % Please note range changes. High density lipoprotein (HD L) measurementOrdered By: Joe Sanchez on 04-22-2024 Cholesterol in HDL [Mass/Vol] 44 mg/dL >40 [facility] Comment on above: The drugs N-Acetylcy steine and Metamizole may falsely depress this assay. Reference Range HDL <40 mg/dL Low HDL Cholesterol HDL >or= 60 mg/dL High HDL Cholesterol Laboratory - Chemistry and C hemistry - challengeOrdered By: Joe Sanchez on 04-22-2024 AST [Catalytic activity/Vol] 15 U/L 15-37 [facility] Low density lipoprotein (LDL ) cholesterol measurementOrdered By: Joe Sanchez on 04-22-2024 Cholesterol in LDL [Mass/Vol] 41 mg/dL 0-130 [facility] Serum globulin measurementOr dered By: Joe Sanchez on 04-22-2024 Globulin (S) [Mass/Vol] 3.7 g/dL 2.2-4.2 [facility] Serum or plasma alanine kilpatrick otransferase (ALT) measurementOrdered By: Joe Sanchez on 04-22-2024 ALT [Catalytic activity/Vol] 14 U/L 13-56 [facility] Serum or plasma albumin leah urement (mass/volume)Ordered By: Joe Sanchez on 04-22-2024 Albumin [Mass/Vol] 2.7 g/dL Low 3.2-5.0 [facility] Serum or plasma alkaline kirti sphatase measurementOrdered By: Joe Sanchez on 04-22-2024 ALP [Catalytic activity/Vol] 61 U/L 45-117 [facility] Serum or plasma cholesterol measurement (mass/volume)Ordered By: Joe Sanchez on 04-22-2024 Cholesterol [Mass/Vol] 106 mg/dL <200 [facility] Comment on above: <200 mg/dL Desirable 200-240 mg/dL Borderline >240 mg/dL High Risk Total proteinOrdered By: Constantin Sanchez on 04-22-2024 Protein [Mass/Vol] 6.4 g/dL 6.4-8.2 [facility] Triglycerides measurementOrd ered By: Joe Sanchez on 04-22-2024 Triglyceride [Mass/Vol] 107 mg/dL <199 [facility] Comment on above: The drugs N-Acetylcy steine and Metamizole may falsely depress this assay.Serum Triglycerides Reference Interval Normal <150 mg/dL Borderline high 150 - 199 mg/dL High 200 - 499 mg/dL Very High > or = 500 mg/dL Very low density lipoprotein (VLDL) cholesterol measurementOrdered By: Joe Sanchez on 04-22-2024 Very low density lipoprotein (VLDL) cholesterol measurement 21 mg/dL 5-40 [facility] VLDL Cholesterol 21 mg/dL 5-40 [facility] Absolute lymphocyte countOrd ered By: Joe Sanchez on 04-09-2024 Lymphocytes Auto (Unsp spec) [#/Vol] 1.63 10*3/uL 0.83-4.51 [facility] Absolute neutrophil countOrd ered By: Joe Sanchez on 04-09-2024 Neutrophils (Bld) [#/Vol] 5.0 10*3/uL 2.0-7.7 [facility] Automated lymphocyte count a s percentage of total leukocytesOrdered By: Joe Sanchez on 04-09-2024 Lymphocytes/100 WBC Auto (Unsp spec) 20.7 % 19-41 [facility] Basophil percentageOrdered B y: Joe Sanchez on 04-09-2024 Basophils/100 WBC (Bld) 1.3 % High 0-1 [facility] Blood urea nitrogen (BUN)/cr eatinine ratioOrdered By: Joe Sanchez on 04-09-2024 Urea nitrogen/Creatinine [Mass ratio] 11.4 mg/mg 10-20 [facility] Carbon dioxide measurementOr dered By: Joe Sanchez on 04-09-2024 CO2 [Moles/Vol] 30.0 mmol/L 21.0-32.0 [facility] Chloride measurementOrdered By: claudiobethany beachlynnette Sanchez on 04-09-2024 Chloride [Moles/Vol] 100 mmol/L 98-107 [facility] Eosinophil percentageOrdered By: Joe aSnchez on 04-09-2024 Eosinophils/100 WBC (Bld) 2.4 % 0-5 [facility] Erythrocyte distribution wid th (RBC) [Ratio]Ordered By: Joe Sanchez on 04-09-2024 Erythrocyte distribution width (RBC) [Entitic vol] 49.9 fL High 35.1-43.9 [facility] Erythrocyte distribution wid th ratioOrdered By: Joe Sanchez on 04-09-2024 Erythrocyte distribution width (RBC) [Ratio] 13.6 % 11.6-14.6 [facility] Erythrocyte distribution wid th standard deviationOrdered By: Joe Sanchez on 04-09-2024 Erythrocyte distribution width (RBC) [Ratio] 49.9 fl High 35.1-43.9 [facility] Estimated glomerular filtrat ion rate (GFR) AmericanOrdered By: Joe Sanchez on 04-09-2024 Estimated GFR (MDRD) Amer 36 mL/min Low >60 [facility] Comment on above: GFR Calc Glomerular filtration rate ( GFR) estimationOrdered By: Joe Sanchez on 04-09-2024 Estimated GFR (MDRD) Non-Af Amer 30 mL/min Low >60 [facility] Comment on above: Non- GFR Calc GFR/1.73 sq M.predicted among non-blacks MDRD (S/P/Bld) [Vol rate/Area] 30 mL/min/{1.73_m2} Low >60 [facility] Comment on above: Non- GFR Calc Glucose measurementOrdered B y: Joe Sanchez on 04-09-2024 Glucose [Mass/Vol] 86 mg/dL 74-106 [facility] Hematocrit Auto (Bld) [Volum e fraction]Ordered By: Joe Sanchez on 04-09-2024 Hematocrit (Bld) [Volume fraction] 40.5 % 37-47 [facility] Hemoglobin measurementOrdere d By: Joe Sanchez on 04-09-2024 Hemoglobin (Bld) [Mass/Vol] 13.0 g/dL 12.0-15.0 [facility] Immature granulocytes/100 WB C Auto (Bld)Ordered By: Joe Sanchez on 04-09-2024 Immature granulocytes/100 WBC (Bld) 0.600 % 0.0-0.9 [facility] Comment on above: IG% - Immature Granu locytes (promyelocytes, myelocytes and metamyelocytes) > 1% indicates that a LEFT SHIFT is Present. Lymphocytes Auto (Unsp spec) [#/Vol]Ordered By: Joe Sanchez on 04-09-2024 Lymphocytes (Bld) [#/Vol] 1.63 10*3/uL 0.83-4.51 [facility] Lymphocytes/100 WBC Auto (Un sp spec)Ordered By: Joe Sanchez on 04-09-2024 Lymphocytes/100 WBC (Bld) 20.7 % 19-41 [facility] MCV (mean corpuscular volume ) determinationOrdered By: Joe Sanchez on 04-09-2024 MCV (RBC) [Entitic vol] 98.5 fL 81-99 [facility] Mean corpuscular hemoglobin (MCH) determinationOrdered By: Joe Sanchez on 04-09-2024 MCH (RBC) [Entitic mass] 31.6 pg 27.0-32.0 [facility] Mean corpuscular hemoglobin concentration (MCHC) determinationOrdered By: Joe Sanchez on 04-09-2024 MCHC (RBC) [Mass/Vol] 32.1 g/dL 32-36 [facility] Mean platelet volume determi nationOrdered By: Joe Sanchez on 04-09-2024 Platelet mean volume (Bld) [Entitic vol] 12.2 fL High 6.2-12.0 [facility] Monocyte percentageOrdered B y: Joe Sanchez on 04-09-2024 Monocytes/100 WBC (Bld) 10.9 % High 0-10 [facility] Neutrophil percentageOrdered By: Joe Sanchez on 04-09-2024 Neutrophils/100 WBC (Bld) 64.1 % 47-70 [facility] Nucleated red blood cell per centageOrdered By: Joe Sanchez on 04-09-2024 Nucleated RBC/100 WBC (Bld) [Ratio] 0 % 0-5 [facility] Platelet countOrdered By: Lluvia Sanchez on 04-09-2024 Platelets (Bld) [#/Vol] 215 10*3/uL 150-450 [facility] Potassium measurementOrdered By: Joe Sanchez on 04-09-2024 Potassium [Moles/Vol] 4.2 mmol/L 3.5-5.1 [facility] RBC Auto (Bld) [#/Vol]Ordere d By: Joe Sanchez on 04-09-2024 RBC (Bld) [#/Vol] 4.11 10*6/uL Low 4.2-5.4 [facility] Serum anion gap measurementO rdered By: Joe Sanchez on 04-09-2024 Anion gap [Moles/Vol] 6 mmol/L 5-15 [facility] Serum or plasma calcium leah urement (mass/volume)Ordered By: Joe Sanchez on 04-09-2024 Calcium [Mass/Vol] 9.8 mg/dL 8.5-10.1 [facility] Serum or plasma creatinine m easurement (mass/volume)Ordered By: Joe Sanchez on 04-09-2024 Creatinine [Mass/Vol] 1.75 mg/dL High 0.55-1.02 [facility] Comment on above: The validity of the calculated GFR & GFRAA in patients over 70 years has not been determined. Clinical correlation is essential. Serum or plasma urea nitroge n measurement (mass/volume)Ordered By: Joe Sanchez on 04-09-2024 Urea nitrogen [Mass/Vol] 20 mg/dL High 7-18 [facility] Sodium levelOrdered By: Yudi Sanchez on 04-09-2024 Sodium [Moles/Vol] 137 mmol/L 136-145 [facility] White blood cell (WBC) count Ordered By: Joe Sanchez on 04-09-2024 WBC (Bld) [#/Vol] 7.9 10*3/uL 4.4-11.0 [facility] 36on 04-03-2024 36 Records received and scanned under [employer] [facility] 36on 04-01-2024 36 I called [place] and she requested me to fax med recs release to [phone] I faxed this morning. Confirmed 04/02 at 5:45p [facility] 36on 03-15-2024 36 Chart reviewed, patient completed 30 day follow-up in [place]. Cancelled echo order [facility] 36 Patient prefers care in [place] [id number] We have been unable to reach your patient to schedule their testing. Test Name: echo 1st Attempt: 03/14/2024 left voicemail 2nd Attempt: 03/15/2024 left voicemail [facility] Bilirubin Test strip Ql (U)O rdered By: Joe Sanchez on 03-15-2024 Bilirubin Ql (U) Negative Negative [facility] Glucose Ql (U)Ordered By: Lluvia Sanchez on 03-15-2024 Glucose (U) [Mass/Vol] 250 mg/dL High Normal [facility] Ketones Test strip Ql (U)Ord ered By: Joe Sanchez on 03-15-2024 Ketones Ql (U) Negative Negative [facility] Nitrite Test strip Ql (U)Ord ered By: Joe Sanchez on 03-15-2024 Nitrite Ql (U) Negative Negative [facility] Protein Test strip Ql (U)Ord ered By: Joe Sanchez on 03-15-2024 Protein Ql (U) 100 mg/dl High Negative [facility] Urine blood detectionOrdered By: Joe Sanchez on 03-15-2024 Urine Occult Blood 250 /ul High Negative [facility] Urine clarityOrdered By: Constantin Sanchez on 03-15-2024 Clarity (U) Cloudy Clear [facility] Urine color determinationOrd ered By: Joe Sanchez on 03-15-2024 Color (U) Straw Yellow [facility] Urine cultureOrdered By: Constantin Sanchez on 03-15-2024 Bacteria identified Cx Nom (U) Enterobacter cloacae complex Abnormal [facility] Urine leukocyte esterase det ection by dipstickOrdered By: Joe Sanchez on 03-15-2024 Leukocyte esterase Test strip Ql (U) 500 /ul High Negative [facility] Urine pHOrdered By: Miles Sanchez on 03-15-2024 pH (U) 6.0 [pH] 5.0 - 8.0 [facility] Urine specific gravity measu rementOrdered By: Jeo Sanchez on 03-15-2024 Specific gravity (U) [Rel density] 1.015 1.002-1.030 [facility] Urobilinogen Ql (U)Ordered B y: Joe Sanchez on 03-15-2024 Urine Urobilinogen Normal mg/dl Normal [facility] Absolute neutrophil countOrd ered By: Joe Sanchez on 03-08-2024 Neutrophils (Bld) [#/Vol] 5.5 10*3/uL 2.0-7.7 [facility] Basophil percentageOrdered B y: Joe Sanchez on 03-08-2024 Basophils/100 WBC (Bld) 1.3 % High 0-1 [facility] Blood urea nitrogen (BUN)/cr eatinine ratioOrdered By: Joe Sanchez on 03-08-2024 Urea nitrogen/Creatinine [Mass ratio] 13.4 mg/mg 10-20 [facility] Carbon dioxide measurementOr dered By: Joe Sanchez on 03-08-2024 CO2 [Moles/Vol] 27.0 mmol/L 21.0-32.0 [facility] Chloride measurementOrdered By: Joe Sanchez on 03-08-2024 Chloride [Moles/Vol] 98 mmol/L 98-107 [facility] Eosinophil percentageOrdered By: Joe Sanchez on 03-08-2024 Eosinophils/100 WBC (Bld) 3.6 % 0-5 [facility] Erythrocyte distribution wid th (RBC) [Ratio]Ordered By: Joe Sanchez on 03-08-2024 Erythrocyte distribution width (RBC) [Entitic vol] 50.5 fL High 35.1-43.9 [facility] Erythrocyte distribution wid th ratioOrdered By: Joe Sanchez on 03-08-2024 Erythrocyte distribution width (RBC) [Ratio] 14.1 % 11.6-14.6 [facility] Estimated glomerular filtrat ion rate (GFR) AmericanOrdered By: Joe Sanchez on 03-08-2024 Estimated GFR (MDRD) Amer 35 mL/min Low >60 [facility] Comment on above: GFR Calc Glomerular filtration rate ( GFR) estimationOrdered By: Joe Sanchez on 03-08-2024 Estimated GFR (MDRD) Non-Af Amer 29 mL/min Low >60 [facility] Comment on above: Non- GFR Calc Glucose measurementOrdered B y: Joe Sanchez on 03-08-2024 Glucose [Mass/Vol] 82 mg/dL 74-106 [facility] Hematocrit Auto (Bld) [Volum e fraction]Ordered By: Joe Sanchez on 03-08-2024 Hematocrit (Bld) [Volume fraction] 39.8 % 37-47 [facility] Hemoglobin measurementOrdere d By: Joe Sanchez on 03-08-2024 Hemoglobin (Bld) [Mass/Vol] 13.1 g/dL 12.0-15.0 [facility] Immature granulocytes/100 WB C Auto (Bld)Ordered By: Joe Sanchez on 03-08-2024 Immature granulocytes/100 WBC (Bld) 1.300 % High 0.0-0.9 [facility] Comment on above: IG% - Immature Granu locytes (promyelocytes, myelocytes and metamyelocytes) > 1% indicates that a LEFT SHIFT is Present. Lymphocytes Auto (Unsp spec) [#/Vol]Ordered By: Joe Sanchez on 03-08-2024 Lymphocytes (Bld) [#/Vol] 1.69 10*3/uL 0.83-4.51 [facility] Lymphocytes/100 WBC Auto (Un sp spec)Ordered By: Joe Sanchez on 03-08-2024 Lymphocytes/100 WBC (Bld) 19.6 % 19-41 [facility] MCV (mean corpuscular volume ) determinationOrdered By: Joe Sanchez on 03-08-2024 MCV (RBC) [Entitic vol] 97.3 fL 81-99 [facility] Mean corpuscular hemoglobin (MCH) determinationOrdered By: Joe Sanchez on 03-08-2024 MCH (RBC) [Entitic mass] 32.0 pg 27.0-32.0 [facility] Mean corpuscular hemoglobin concentration (MCHC) determinationOrdered By: Joe Sanchez on 03-08-2024 MCHC (RBC) [Mass/Vol] 32.9 g/dL 32-36 [facility] Mean platelet volume determi nationOrdered By: Joe Sanchez on 03-08-2024 Platelet mean volume (Bld) [Entitic vol] 11.9 fL 6.2-12.0 [facility] Monocyte percentageOrdered B y: Joe Sanchez on 03-08-2024 Monocytes/100 WBC (Bld) 10.9 % High 0-10 [facility] Neutrophil percentageOrdered By: Lluviaclaudiokayleigh Arturohans on 03-08-2024 Neutrophils/100 WBC (Bld) 63.3 % 47-70 [facility] Nucleated red blood cell per centageOrdered By: Joe Morrisawaismilton on 03-08-2024 Nucleated RBC/100 WBC (Bld) [Ratio] 0 % 0-5 [facility] Platelet countOrdered By: Lluvia montez Arturoawaismilton on 03-08-2024 Platelets (Bld) [#/Vol] 232 10*3/uL 150-450 [facility] Potassium measurementOrdered By: Joe Morrisawaismilton on 03-08-2024 Potassium [Moles/Vol] 4.1 mmol/L 3.5-5.1 [facility] RBC Auto (Bld) [#/Vol]Ordere d By: Joe Morrisawaismilton on 03-08-2024 RBC (Bld) [#/Vol] 4.09 10*6/uL Low 4.2-5.4 [facility] Serum anion gap measurementO rdered By: Yudimelissalynnette Morrisawaismilton on 03-08-2024 Anion gap [Moles/Vol] 9 mmol/L 5-15 [facility] Serum or plasma calcium leah urement (mass/volume)Ordered By: Joe Morrisawaismilton on 03-08-2024 Calcium [Mass/Vol] 9.6 mg/dL 8.5-10.1 [facility] Serum or plasma creatinine m easurement (mass/volume)Ordered By: Joe Sanchez on 03-08-2024 Creatinine [Mass/Vol] 1.79 mg/dL High 0.55-1.02 [facility] Comment on above: The validity of the calculated GFR & GFRAA in patients over 70 years has not been determined. Clinical correlation is essential. Serum or plasma urea nitroge n measurement (mass/volume)Ordered By: Joe Sanchez on 03-08-2024 Urea nitrogen [Mass/Vol] 24 mg/dL High 7-18 [facility] Sodium levelOrdered By: Yudi angelamilton Sanchez on 03-08-2024 Sodium [Moles/Vol] 134 mmol/L Low 136-145 [facility] White blood cell (WBC) count Ordered By: Joaquinlynnette Morrisawaismilton on 03-08-2024 WBC (Bld) [#/Vol] 8.6 10*3/uL 4.4-11.0 [facility] Absolute neutrophil countOrd ered By: montez Morrisawaismilton on 03-01-2024 Neutrophils (Bld) [#/Vol] 5.1 10*3/uL 2.0-7.7 [facility] Basophil percentageOrdered B y: Joaquinlynnette Morrisawaismilton on 03-01-2024 Basophils/100 WBC (Bld) 1.6 % High 0-1 [facility] Blood urea nitrogen (BUN)/cr eatinine ratioOrdered By: Joe Sanchez on 03-01-2024 Urea nitrogen/Creatinine [Mass ratio] 15.9 mg/mg 10-20 [facility] Carbon dioxide measurementOr dered By: Joe Sanchez on 03-01-2024 CO2 [Moles/Vol] 26.0 mmol/L 21.0-32.0 [facility] Chloride measurementOrdered By: [facility] on 03-01-2024 Chloride [Moles/Vol] 101 mmol/L 98-107 [facility] Eosinophil percentageOrdered By: Joe Sanchez on 03-01-2024 Eosinophils/100 WBC (Bld) 3.2 % 0-5 [facility] Erythrocyte distribution wid th (RBC) [Ratio]Ordered By: Joe Sanchez on 03-01-2024 Erythrocyte distribution width (RBC) [Entitic vol] 49.1 fL High 35.1-43.9 [facility] Erythrocyte distribution wid th ratioOrdered By: montez Sanchez on 03-01-2024 Erythrocyte distribution width (RBC) [Ratio] 14.0 % 11.6-14.6 [facility] Estimated glomerular filtrat ion rate (GFR) AmericanOrdered By: Joe Sanchez on 03-01-2024 Estimated GFR (MDRD) Amer 30 mL/min Low >60 [facility] Comment on above: GFR Calc Glomerular filtration rate ( GFR) estimationOrdered By: Joe Sanchez on 03-01-2024 Estimated GFR (MDRD) Non-Af Amer 25 mL/min Low >60 [facility] Comment on above: Non- GFR Calc Glucose measurementOrdered B y: Joe Sanchez on 03-01-2024 Glucose [Mass/Vol] 101 mg/dL 74-106 [facility] Comment on above: Fasting Glucose resu lt from 100 to 125 mg/dL suggests IMPAIRED HOMEOSTASIS per A.D.A. criteria. Hematocrit Auto (Bld) [Volum e fraction]Ordered By: Joe Sanchez on 03-01-2024 Hematocrit (Bld) [Volume fraction] 37.7 % 37-47 [facility] Hemoglobin measurementOrdere d By: Joe Sanchez on 03-01-2024 Hemoglobin (Bld) [Mass/Vol] 12.6 g/dL 12.0-15.0 [facility] Immature granulocytes/100 WB C Auto (Bld)Ordered By: Joe Sanchez on 03-01-2024 Immature granulocytes/100 WBC (Bld) 1.200 % High 0.0-0.9 [facility] Comment on above: IG% - Immature Granu locytes (promyelocytes, myelocytes and metamyelocytes) > 1% indicates that a LEFT SHIFT is Present. Lymphocytes Auto (Unsp spec) [#/Vol]Ordered By: Joe Sanchez on 03-01-2024 Lymphocytes (Bld) [#/Vol] 1.56 10*3/uL 0.83-4.51 [facility] Lymphocytes/100 WBC Auto (Un sp spec)Ordered By: Joe Sanchez on 03-01-2024 Lymphocytes/100 WBC (Bld) 19.0 % 19-41 [facility] MCV (mean corpuscular volume ) determinationOrdered By: Joe Sanchez on 03-01-2024 MCV (RBC) [Entitic vol] 96.2 fL 81-99 [facility] Mean corpuscular hemoglobin (MCH) determinationOrdered By: Joe Sanchez on 03-01-2024 MCH (RBC) [Entitic mass] 32.1 pg High 27.0-32.0 [facility] Mean corpuscular hemoglobin concentration (MCHC) determinationOrdered By: Joe Sanchez on 03-01-2024 MCHC (RBC) [Mass/Vol] 33.4 g/dL 32-36 [facility] Mean platelet volume determi nationOrdered By: Joe Sanchez on 03-01-2024 Platelet mean volume (Bld) [Entitic vol] 12.0 fL 6.2-12.0 [facility] Monocyte percentageOrdered B y: Joe Sanchez on 03-01-2024 Monocytes/100 WBC (Bld) 12.9 % High 0-10 [facility] Neutrophil percentageOrdered By: Joe Sanchez on 03-01-2024 Neutrophils/100 WBC (Bld) 62.1 % 47-70 [facility] Nucleated red blood cell per centageOrdered By: Joe Sanchez on 03-01-2024 Nucleated RBC/100 WBC (Bld) [Ratio] 0 % 0-5 [facility] Platelet countOrdered By: Lluvia Sanchez on 03-01-2024 Platelets (Bld) [#/Vol] 212 10*3/uL 150-450 [facility] Potassium measurementOrdered By: Joe Sanchez on 03-01-2024 Potassium [Moles/Vol] 4.1 mmol/L 3.5-5.1 [facility] RBC Auto (Bld) [#/Vol]Ordere d By: Joe Sanchez on 03-01-2024 RBC (Bld) [#/Vol] 3.92 10*6/uL Low 4.2-5.4 [facility] Serum anion gap measurementO rdered By: Joe Sanchez on 03-01-2024 Anion gap [Moles/Vol] 8 mmol/L 5-15 [facility] Serum or plasma calcium leah urement (mass/volume)Ordered By: Joe Sanchez on 03-01-2024 Calcium [Mass/Vol] 9.6 mg/dL 8.5-10.1 [facility] Serum or plasma creatinine m easurement (mass/volume)Ordered By: Yudimelissalynnette Sanchez on 03-01-2024 Creatinine [Mass/Vol] 2.01 mg/dL High 0.55-1.02 [facility] Comment on above: The validity of the calculated GFR & GFRAA in patients over 70 years has not been determined. Clinical correlation is essential. Serum or plasma urea nitroge n measurement (mass/volume)Ordered By: Joe Sanchez on 03-01-2024 Urea nitrogen [Mass/Vol] 32 mg/dL High - [facility] Sodium levelOrdered By: Yudi victor Arturoawaismilton on 03-01-2024 Sodium [Moles/Vol] 136 mmol/L 136-145 [facility] White blood cell (WBC) count Ordered By: Yudibethany beachlynnette Sanchez on 03-01-2024 WBC (Bld) [#/Vol] 8.2 10*3/uL 4.4-11.0 [facility] Cardiology Visit Reporton Cardiology Visit Report Normal [facility] Gastroenterology Visit Repor ton 01-18-2024 Gastroenter[address] Report Normal [facility] CBC W/Diff, Automatedon 12-19 PATH REV Reviewed Normal [facility] Comment on above: Result Comment: Neut rophilic leukocytosis.REACTIVE LYMPHOCYTES PRESENTArun Mahesh King 01/11/24 AMENDED REPORT 01/11/24 0945 PATH REV previously reported as: July Performed By: #### L 100.0100, L500.2500 ####[facility] [address] [place], [place], [id number] Basic Metabolic Profile (BMP )on 01-10-2024 BUN/CRE 24.4 RATIO High 01-06 [facility] Comment on above: Performed By: #### L 100.0100, L500.2500 ####[facility] [address] [place], [place], [address] CA,Total 9.5 mg/dL Normal 8.5-10.1 [facility] Comment on above: Performed By: #### L 100.0100, L500.2500 ####[facility] [address] [place], [address] Chloride [Moles/Vol] 99 mmol/L Normal 98-107 [facility] Comment on above: Performed By: #### L 100.0100, L500.2500 ####[facility] [address] [place], [address] CO2 [Moles/Vol] 25.0 mmol/L Normal 21.0-32.0 [facility] Comment on above: Performed By: #### L 100.0100, L500.2500 ####[facility] [address] [place], [address] Creatinine [Mass/Vol] 1.60 mg/dL High 0.55-1.02 [facility] Comment on above: Result Comment: The validity of the calculated GFR GFRAA in patients over70 years has not been determined. Clinical correlation isessential. Performed By: #### L 100.0100, L500.2500 ####[facility] [address] [place], [address] ECRCL 31.06 ml/min Normal [facility] Comment on above: Performed By: #### L 100.0100, L500.2500 ####[facility] [address] [place], [address] EST GFR - AA 40 mL/min Low >60 [facility] Comment on above: Result Comment: Afri can Montserratian GFR Calc Performed By: #### L 100.0100, L500.2500 ####[facility] [address] [place], [address] GAP 7 Normal 5-15 [facility] Comment on above: Performed By: #### L 100.0100, L500.2500 ####[facility] [address] [place], [address] GFR/1.73 sq M.predicted among non-blacks MDRD (S/P/Bld) [Vol rate/Area] 33 mL/min/{1.73_m2} Low >60 [facility] Comment on above: Result Comment: Non- GFR Calc Performed By: #### L 100.0100, L500.2500 ####[facility] [address] [place], [address] Glucose [Mass/Vol] 116 mg/dL High 74-106 [facility] Comment on above: Result Comment: Fast ing Glucose result from 100 to 125 mg/dLsuggests IMPAIRED HOMEOSTASIS per A.D.A. criteria. Performed By: #### L 100.0100, L500.2500 ####[facility] [address] [place], [address] Potassium [Moles/Vol] 4.4 mmol/L Normal 3.5-5.1 [facility] Comment on above: Performed By: #### L 100.0100, L500.2500 ####[facility] [address] [place], [address] Sodium [Moles/Vol] 131 mmol/L Low 136-145 [facility] Comment on above: Performed By: #### L 100.0100, L500.2500 ####[facility] [address] [place], [address] Urea nitrogen [Mass/Vol] 39 mg/dL High 7-18 [facility] Comment on above: Performed By: #### L 100.0100, L500.2500 ####[facility] [address] [place], [address] Basic Metabolic Profile (BMP )on 01-08-2024 BUN/CRE 21.1 RATIO High - [facility] Comment on above: Order Comment: LUIS Garza PREVIOUS SPECIMEN REJECTED DUE TOHEMOLYSIS. 01/08/24 0743 Preet Vizcarra. Performed By: #### L 500.2500 ####[facility] [address] [place], [address] CA,Total 9.3 mg/dL Normal 8.5-10.1 [facility] Comment on above: Order Comment: REDRA W. PREVIOUS SPECIMEN REJECTED DUE TOHEMOLYSIS. 01/08/24742 Preet Vizcarra. Performed By: #### L 500.2500 ####[facility] [address] [place], [address] Chloride [Moles/Vol] 101 mmol/L Normal 98-107 [facility] Comment on above: Order Comment: REDRA W. PREVIOUS SPECIMEN REJECTED DUE TOHEMOLYSIS. 01/08/24742 Preet Vizcarra. Performed By: #### L 500.2500 ####[facility] [address] [place], [address] CO2 [Moles/Vol] 25.0 mmol/L Normal 21.0-32.0 [facility] Comment on above: Order Comment: REDRA W. PREVIOUS SPECIMEN REJECTED DUE TOHEMOLYSIS. 01/08/24742 rPeet Vizcarra. Performed By: #### L 500.2500 ####[facility] [address] [place], [address] Creatinine [Mass/Vol] 1.28 mg/dL High 0.55-1.02 [facility] Comment on above: Order Comment: REDRA W. PREVIOUS SPECIMEN REJECTED DUE TOHEMOLYSIS. 01/08/24742 Preet Vizcarra. Result Comment: The validity of the calculated GFR GFRAA in patients over70 years has not been determined. Clinical correlation isessential. Performed By: #### L 500.2500 ####[facility] [address] [place], [address] ECRCL 38.87 ml/min Normal [facility] Comment on above: Order Comment: REDRA W. PREVIOUS SPECIMEN REJECTED DUE TOHEMOLYSIS. 01/08/24742 Preet Vizcarra. Performed By: #### L 500.2500 ####[facility] [address] [place] [phone] EST GFR - AA 51 mL/min Low >60 [facility] Comment on above: Order Comment: REDRA W. PREVIOUS SPECIMEN REJECTED DUE TOHEMOLYSIS. 01/08/24742 Preet Vizcarra. Result Comment: Afri can Montserratian GFR Calc Performed By: #### L 500.2500 ####[facility] [address] [place], [address] GAP 8 Normal 5-15 [facility] Comment on above: Order Comment: REDRA W. PREVIOUS SPECIMEN REJECTED DUE TOHEMOLYSIS. 01/08/24742 Preet Vizcarra. Performed By: #### L 500.2500 ####[facility] [address] [place], [address] GFR/1.73 sq M.predicted among non-blacks MDRD (S/P/Bld) [Vol rate/Area] 42 mL/min/{1.73_m2} Low >60 [facility] Comment on above: Order Comment: REDRA W. PREVIOUS SPECIMEN REJECTED DUE TOHEMOLYSIS. 01/08/24742 Preet Vizcarra. Result Comment: Non- GFR Calc Performed By: #### L 500.2500 ####[facility] [address] [place], [address] Glucose [Mass/Vol] 106 mg/dL Normal 74-106 [facility] Comment on above: Order Comment: REDRA W. PREVIOUS SPECIMEN REJECTED DUE TOHEMOLYSIS. 01/08/24742 Preet Vizcarra. Result Comment: Fast ing Glucose result from 100 to 125 mg/dLsuggests IMPAIRED HOMEOSTASIS per A.D.A. criteria. Performed By: #### L 500.2500 ####[facility] [address] [place], [address] Potassium [Moles/Vol] 4.5 mmol/L Normal 3.5-5.1 [facility] Comment on above: Order Comment: REDRA W. PREVIOUS SPECIMEN REJECTED DUE TOHEMOLYSIS. 01/08/24742 Preet Vizcarra. Performed By: #### L 500.2500 ####[facility] [address] [place], [address] Sodium [Moles/Vol] 135 mmol/L Low 136-145 [facility] Comment on above: Order Comment: REDRA W. PREVIOUS SPECIMEN REJECTED DUE TOHEMOLYSIS. 01/08/24742 Preet L White. Performed By: #### L 500.2500 ####[facility] [address] [place], [address] Urea nitrogen [Mass/Vol] 27 mg/dL High 7-18 [facility] Comment on above: Order Comment: REDRA W. PREVIOUS SPECIMEN REJECTED DUE TOHEMOLYSIS. 01/08/24742 Preet L White. Performed By: #### L 500.2500 ####[facility] [address] [place], [address] BUN Normal - [facility] Comment on above: Result Comment: This specimen has been REJECTED due to Laboratory criteria:Hemolyzed.PHLEBOTOMISTS has been notified of need of recollection.01/08/24742 Preet L White Performed By: #### L 500.2500 ####[facility] [address] [place], [address] BUN/CRE Normal - [facility] Comment on above: Result Comment: This specimen has been REJECTED due to Laboratory criteria:Hemolyzed.PHLEBOTOMISTS has been notified of need of recollection.01/08/24742 Preet L White Performed By: #### L 500.2500 ####[facility] [address] [place], [address] CA,Total Normal 8.5-10.1 [facility] Comment on above: Result Comment: This specimen has been REJECTED due to Laboratory criteria:Hemolyzed.PHLEBOTOMISTS has been notified of need of recollection.01/08/24742 Preet L White Performed By: #### L 500.2500 ####[facility] [address] [place], [address] CL Normal 98-107 [facility] Comment on above: Result Comment: This specimen has been REJECTED due to Laboratory criteria:Hemolyzed.PHLEBOTOMISTS has been notified of need of recollection.01/08/24742 Preet L White Performed By: #### L 500.2500 ####[facility] [address] [place], [address] CO2 Normal 21.0-32.0 [facility] Comment on above: Result Comment: This specimen has been REJECTED due to Laboratory criteria:Hemolyzed.PHLEBOTOMISTS has been notified of need of recollection.01/08/24742 Preet L White Performed By: #### L 500.2500 ####[facility] [address] [place], [address] CREAT,SERUM Normal 0.55-1.02 [facility] Comment on above: Result Comment: This specimen has been REJECTED due to Laboratory criteria:Hemolyzed.PHLEBOTOMISTS has been notified of need of recollection.01/08/24742 Preet L White Performed By: #### L 500.2500 ####[facility] [address] [place], [address] EST GFR Normal >60 [facility] Comment on above: Result Comment: This specimen has been REJECTED due to Laboratory criteria:Hemolyzed.PHLEBOTOMISTS has been notified of need of recollection.01/08/24742 Preet L White Performed By: #### L 500.2500 ####[facility] [address] [place], [address] EST GFR - AA Normal >60 [facility] Comment on above: Result Comment: This specimen has been REJECTED due to Laboratory criteria:Hemolyzed.PHLEBOTOMISTS has been notified of need of recollection.01/08/24742 Preet L White Performed By: #### L 500.2500 ####[facility] [address] [place], [address] GAP Normal 5-15 [facility] Comment on above: Result Comment: This specimen has been REJECTED due to Laboratory criteria:Hemolyzed.PHLEBOTOMISTS has been notified of need of recollection.01/08/24742 Preet L White Performed By: #### L 500.2500 ####[facility] [address] [place], [address] GLU Normal 74-106 [facility] Comment on above: Result Comment: This specimen has been REJECTED due to Laboratory criteria:Hemolyzed.PHLEBOTOMISTS has been notified of need of recollection.01/08/24742 Preet L White Performed By: #### L 500.2500 ####[facility] [address] [place], [address] Potassium Normal 3.5-5.1 [facility] Comment on above: Result Comment: This specimen has been REJECTED due to Laboratory criteria:Hemolyzed.PHLEBOTOMISTS has been notified of need of recollection.01/08/24742 Preet L White Performed By: #### L 500.2500 ####[facility] [address] [place], [address] Basic Metabolic Profile (BMP) Normal 136-145 [facility] Comment on above: Result Comment: This specimen has been REJECTED due to Laboratory criteria:Hemolyzed.PHLEBOTOMISTS has been notified of need of recollection.01/08/2443 Preet L White Performed By: #### L 500.2500 ####[facility] [address] [place], [address] Basic Metabolic Profile (BMP )on 01-06-2023 BUN/CRE 22.3 RATIO High 01-06 [facility] Comment on above: Performed By: #### L 100.0100, L500.2500 ####[facility] [address] [place], [address] CA,Total 9.6 mg/dL Normal 8.5-10.1 [facility] Comment on above: Performed By: #### L 100.0100, L500.2500 ####[facility] [address] [place], [address] Chloride [Moles/Vol] 105 mmol/L Normal 98-107 [facility] Comment on above: Performed By: #### L 100.0100, L500.2500 ####[facility] [address] [place], [address] CO2 [Moles/Vol] 24.0 mmol/L Normal 21.0-32.0 [facility] Comment on above: Performed By: #### L 100.0100, L500.2500 ####[facility] [address] [place], [address] Creatinine [Mass/Vol] 1.39 mg/dL High 0.55-1.02 [facility] Comment on above: Result Comment: The validity of the calculated GFR GFRAA in patients over70 years has not been determined. Clinical correlation isessential. Performed By: #### L 100.0100, L500.2500 ####[facility] [address] [place], [address] ECRCL 35.49 ml/min Normal [facility] Comment on above: Performed By: #### L 100.0100, L500.2500 ####[facility] [address] [place], [address] EST GFR - AA 47 mL/min Low >60 [facility] Comment on above: Result Comment: Afri can Montserratian GFR Calc Performed By: #### L 100.0100, L500.2500 ####[facility] [address] [place], [address] GAP 7 Normal 5-15 [facility] Comment on above: Performed By: #### L 100.0100, L500.2500 ####[facility] [address] [place], [address] GFR/1.73 sq M.predicted among non-blacks MDRD (S/P/Bld) [Vol rate/Area] 39 mL/min/{1.73_m2} Low >60 [facility] Comment on above: Result Comment: Non- GFR Calc Performed By: #### L 100.0100, L500.2500 ####[facility] [address] [place], [address] Glucose [Mass/Vol] 106 mg/dL Normal 74-106 [facility] Comment on above: Result Comment: Fast ing Glucose result from 100 to 125 mg/dLsuggests IMPAIRED HOMEOSTASIS per A.D.A. criteria. Performed By: #### L 100.0100, L500.2500 ####[facility] [address] [place], [address] Potassium [Moles/Vol] 4.3 mmol/L Normal 3.5-5.1 [facility] Comment on above: Performed By: #### L 100.0100, L500.2500 ####[facility] [address] [place], [address] Sodium [Moles/Vol] 136 mmol/L Normal 136-145 [facility] Comment on above: Performed By: #### L 100.0100, L500.2500 ####[facility] [address] [place], [address] Urea nitrogen [Mass/Vol] 31 mg/dL High 7-18 [facility] Comment on above: Performed By: #### L 100.0100, L500.2500 ####[facility] [address] [place], [address] Brain/Head without Contrasto n 10--2023 Brain/Head without Contrast Normal [facility] CBC W/Diff, Automatedon 10-2 0-2023 Absolute Lymph 1.42 X10 3/uL Normal 0.83-4.51 [facility] Comment on above: Performed By: #### L 100.0100, L500.2500 ####[facility] [address] [place], [address] Absolute Neut 7.4 X10 3/uL Normal 2.0-7.7 [facility] Comment on above: Performed By: #### L 100.0100, L500.2500 ####[facility] [address] [place], [address] Basophils/100 WBC (Bld) 0.9 % Normal 0-1 [facility] Comment on above: Performed By: #### L 100.0100, L500.2500 ####[facility] [address] [place], [address] Eosinophils/100 WBC (Bld) 0.3 % Normal 0-5 [facility] Comment on above: Performed By: #### L 100.0100, L500.2500 ####[facility] [address] [place], [address] Erythrocyte distribution width (RBC) [Ratio] 13.5 % Normal 11.6-14.6 [facility] Comment on above: Performed By: #### L 100.0100, L500.2500 ####[facility] [address] [place], [address] Hematocrit (Bld) [Volume fraction] 45.3 % Normal 37-47 [facility] Comment on above: Performed By: #### L 100.0100, L500.2500 ####[facility] [address] [place], [address] Hemoglobin (Bld) [Mass/Vol] 15.0 g/dL Normal 12.0-15.0 [facility] Comment on above: Performed By: #### L 100.0100, L500.2500 ####[facility] [address] [place], [address] IG% 0.600 Normal 0.0-0.9 [facility] Comment on above: Result Comment: IG% - Immature Granulocytes (promyelocytes, myelocytes andmetamyelocytes) > 1% indicates that a LEFT SHIFT is Present. Performed By: #### L 100.0100, L500.2500 ####[facility] [address] [place], [address] Lymphocytes/100 WBC (Bld) 14.2 % Low 19-41 [facility] Comment on above: Performed By: #### L 100.0100, L500.2500 ####[facility] [address] [place], [address] MCH (RBC) [Entitic mass] 32.3 pg High 27.0-32.0 [facility] Comment on above: Performed By: #### L 100.0100, L500.2500 ####[facility] [address] [place], [address] MCHC (RBC) [Mass/Vol] 33.1 g/dL Normal 32-36 [facility] Comment on above: Performed By: #### L 100.0100, L500.2500 ####[facility] [address] [place], [address] MCV (RBC) [Entitic vol] 97.4 fL Normal 81-99 [facility] Comment on above: Performed By: #### L 100.0100, L500.2500 ####[facility] [address] [place], [address] Monocytes/100 WBC (Bld) 9.8 % Normal 0-10 [facility] Comment on above: Performed By: #### L 100.0100, L500.2500 ####[facility] [address] [place], [address] Neutrophils/100 WBC (Bld) 74.2 % High 47-70 [facility] Comment on above: Performed By: #### L 100.0100, L500.2500 ####[facility] [address] [place], [address] Nucleated RBC (Bld) [#/Vol] 0 10*3/uL Normal 0-5 [facility] Comment on above: Performed By: #### L 100.0100, L500.2500 ####[facility] [address] [place], [address] Platelet mean volume (Bld) [Entitic vol] 12.1 fL High 6.2-12.0 [facility] Comment on above: Performed By: #### L 100.0100, L500.2500 ####[facility] [address] [place], [address] Platelets (Bld) [#/Vol] 193 10*3/uL Normal 150-450 [facility] Comment on above: Performed By: #### L 100.0100, L500.2500 ####[facility] [address] [place], [address] RBC (Bld) [#/Vol] 4.65 10*6/uL Normal 4.2-5.4 [facility] Comment on above: Performed By: #### L 100.0100, L500.2500 ####[facility] [address] [place], [address] RDW SD 48.4 fl High 35.1-43.9 [facility] Comment on above: Performed By: #### L 100.0100, L500.2500 ####[facility] [address] [place], [address] WBC (Bld) [#/Vol] 10.0 10*3/uL Normal 4.4-11.0 [facility] Comment on above: Performed By: #### L 100.0100, L500.2500 ####[facility] [address] [place], [address] Carotid Duplex Ultrasoundon 01-07-2024 Carotid Duplex Ultrasound Normal [facility] Ammoniaon 01-06-2024 Ammonia (P) [Mass/Vol] ug/dL Low 11-32 [facility] Comment on above: Performed By: #### L 503.5510 ####[facility] [address] [place], [address] [facility] Positive Normal [facility] Comment on above: Performed By: #### L 9000.0800 ####[facility] [address] [place], [address] Base excess Calc (Bld) [Moles/Vol] -1 mmol/L Normal -2 to +2 [facility] Comment on above: Performed By: #### L 9000.0800 ####[facility] [address] [place], [address] Blood Gas Type ART Normal [facility] Comment on above: Performed By: #### L 9000.0800 ####[facility] [address] [place], [address] CO2 [Moles/Vol] 23 mmol/L [facility] Comment on above: Performed By: #### L 9000.0800 ####[facility] [address] [place], [address] HCO3 (Bld) [Moles/Vol] 22.4 mmol/L Normal 22-26 [facility] Comment on above: Performed By: #### L 9000.0800 ####[facility] [address] [place], [address] Mode Not entered [facility] Comment on above: Performed By: #### L 9000.0800 ####[facility] [address] [place], [address] O2 Delivery Dev Room Air Normal [facility] Comment on above: Performed By: #### L 9000.0800 ####[facility] [address] [place], [address] pCO2 28.1 mmHg Low 35-45 [facility] Comment on above: Performed By: #### L 9000.0800 ####[facility] [address] [place], [address] pH (Bld) 7.51 [pH] High 7.35-7.45 [facility] Comment on above: Performed By: #### L 9000.0800 ####[facility] [address] [place], [address] PO2 85 mmHG Normal 75-100 [facility] Comment on above: Performed By: #### L 9000.0800 ####[facility] [address] [place], [address] SITE R Radial Normal [facility] Comment on above: Performed By: #### L 9000.0800 ####[facility] [address] [place], [address] SO2 98 Normal 95-99 [facility] Comment on above: Performed By: #### L 9000.0800 ####[facility] [address] [place], [address] CBC W/Diff, Automatedon 10-1 Absolute Lymph 0.62 X10 3/uL Low 0.83-4.51 [facility] Comment on above: Performed By: #### L 500.4050, L500.4100, L501.9520, L100.0100, L501.9985 ####[facility] [address] [place], [address] Absolute Neut 7.5 X10 3/uL Normal 2.0-7.7 [facility] Comment on above: Performed By: #### L 500.4050, L500.4100, L501.9520, L100.0100, L501.9985 ####[facility] [address] [place], [address] Basophils/100 WBC (Bld) 0.2 % Normal 0-1 [facility] Comment on above: Performed By: #### L 500.4050, L500.4100, L501.9520, L100.0100, L501.9985 ####[facility] [address] [place], [address] Eosinophils/100 WBC (Bld) 0.0 % Normal 0-5 [facility] Comment on above: Performed By: #### L 500.4050, L500.4100, L501.9520, L100.0100, L501.9985 ####[facility] [address] [place], [address] Erythrocyte distribution width (RBC) [Ratio] 13.4 % Normal 11.6-14.6 [facility] Comment on above: Performed By: #### L 500.4050, L500.4100, L501.9520, L100.0100, L501.9985 ####[facility] [address] [place], [address] Hematocrit (Bld) [Volume fraction] 44.3 % Normal 37-47 [facility] Comment on above: Performed By: #### L 500.4050, L500.4100, L501.9520, L100.0100, L501.9985 ####[facility] [address] [place], [address] Hemoglobin (Bld) [Mass/Vol] 14.6 g/dL Normal 12.0-15.0 [facility] Comment on above: Performed By: #### L 500.4050, L500.4100, L501.9520, L100.0100, L501.9985 ####[facility] [address] [place], [address] IG% 0.900 Normal 0.0-0.9 [facility] Comment on above: Result Comment: IG% - Immature Granulocytes (promyelocytes, myelocytes andmetamyelocytes) > 1% indicates that a LEFT SHIFT is Present. Performed By: #### L 500.4050, L500.4100, L501.9520, L100.0100, L501.9985 ####[facility] [address] [place], [address] Lymphocytes/100 WBC (Bld) 7.4 % Low 19-41 [facility] Comment on above: Performed By: #### L 500.4050, L500.4100, L501.9520, L100.0100, L501.9985 ####[facility] [address] [place], [address] MCH (RBC) [Entitic mass] 32.1 pg High 27.0-32.0 [facility] Comment on above: Performed By: #### L 500.4050, L500.4100, L501.9520, L100.0100, L501.9985 ####[facility] [address] [place], [address] MCHC (RBC) [Mass/Vol] 33.0 g/dL Normal 32-36 [facility] Comment on above: Performed By: #### L 500.4050, L500.4100, L501.9520, L100.0100, L501.9985 ####[facility] [address] [place], [address] MCV (RBC) [Entitic vol] 97.4 fL Normal 81-99 [facility] Comment on above: Performed By: #### L 500.4050, L500.4100, L501.9520, L100.0100, L501.9985 ####[facility] [address] [place], [address] Monocytes/100 WBC (Bld) 2.5 % Normal 0-10 [facility] Comment on above: Performed By: #### L 500.4050, L500.4100, L501.9520, L100.0100, L501.9985 ####[facility] [address] [place], [address] Neutrophils/100 WBC (Bld) 89.0 % High 47-70 [facility] Comment on above: Performed By: #### L 500.4050, L500.4100, L501.9520, L100.0100, L501.9985 ####[facility] [address] [place], [address] Nucleated RBC (Bld) [#/Vol] 0 10*3/uL Normal 0-5 [facility] Comment on above: Performed By: #### L 500.4050, L500.4100, L501.9520, L100.0100, L501.9985 ####[facility] [address] [place], [address] Platelet mean volume (Bld) [Entitic vol] 12.4 fL High 6.2-12.0 [facility] Comment on above: Performed By: #### L 500.4050, L500.4100, L501.9520, L100.0100, L501.9985 ####[facility] [address] [place], [address] Platelets (Bld) [#/Vol] 188 10*3/uL Normal 150-450 [facility] Comment on above: Performed By: #### L 500.4050, L500.4100, L501.9520, L100.0100, L501.9985 ####[facility] [address] [place], [address] RBC (Bld) [#/Vol] 4.55 10*6/uL Normal 4.2-5.4 [facility] Comment on above: Performed By: #### L 500.4050, L500.4100, L501.9520, L100.0100, L501.9985 ####[facility] [address] [place], [address] RDW SD 48.2 fl High 35.1-43.9 [facility] Comment on above: Performed By: #### L 500.4050, L500.4100, L501.9520, L100.0100, L501.9985 ####[facility] [address] [place], [address] WBC (Bld) [#/Vol] 8.4 10*3/uL Normal 4.4-11.0 [facility] Comment on above: Performed By: #### L 500.4050, L500.4100, L501.9520, L100.0100, L501.9985 ####[facility] [address] [place], [address] Comprehensive Metabolic Prof [facility] 01-06-2024 Albumin [Mass/Vol] 3.3 g/dL Normal 3.2-5.0 [facility] Comment on above: Order Comment: Comme nts: NPO at [place] prior to lipid panel Performed By: #### L 500.4050, L500.4100, L501.9520, L100.0100, L501.9985 ####[facility] [address] [place], [address] Albumin/Globulin [Mass ratio] 0.9 {ratio} Normal 0.9-2.4 [facility] Comment on above: Order Comment: Comme nts: NPO at [place] prior to lipid panel Performed By: #### L 500.4050, L500.4100, L501.9520, L100.0100, L501.9985 ####[facility] [address] [place], [address] ALK P 55 U/L Normal 45-117 [facility] Comment on above: Order Comment: Comme nts: NPO at [place] prior to lipid panel Performed By: #### L 500.4050, L500.4100, L501.9520, L100.0100, L501.9985 ####[facility] [address] [place], [address] ALT [Catalytic activity/Vol] 17 U/L Normal 13-56 [facility] Comment on above: Order Comment: Comme nts: NPO at [place] prior to lipid panel Performed By: #### L 500.4050, L500.4100, L501.9520, L100.0100, L501.9985 ####[facility] [address] [place], [address] AST [Catalytic activity/Vol] 19 U/L Normal 15-37 [facility] Comment on above: Order Comment: Comme nts: NPO at [place] prior to lipid panel Performed By: #### L 500.4050, L500.4100, L501.9520, L100.0100, L501.9985 ####[facility] [address] [place], [address] Bilirubin [Mass/Vol] 1.30 mg/dL High 0.20-1.00 [facility] Comment on above: Order Comment: Comme nts: NPO at [place] prior to lipid panel Result Comment: For patients on eltrombopag therapy, use of Dimension Holley TBIL is not recommended. Performed By: #### L 500.4050, L500.4100, L501.9520, L100.0100, L501.9985 ####[facility] [address] [place], [address] BUN/CRE 22.9 RATIO High 10-20 [facility] Comment on above: Order Comment: Comme nts: NPO at [place] prior to lipid panel Performed By: #### L 500.4050, L500.4100, L501.9520, L100.0100, L501.9985 ####[facility] [address] [place], [address] CA,Total 9.6 mg/dL Normal 8.5-10.1 [facility] Comment on above: Order Comment: Comme nts: NPO at [place] prior to lipid panel Performed By: #### L 500.4050, L500.4100, L501.9520, L100.0100, L501.9985 ####[facility] [address] [place], [address] Chloride [Moles/Vol] 108 mmol/L High 98-107 [facility] Comment on above: Order Comment: Comme nts: NPO at [place] prior to lipid panel Performed By: #### L 500.4050, L500.4100, L501.9520, L100.0100, L501.9985 ####[facility] [address] [place], [address] CO2 [Moles/Vol] 24.0 mmol/L Normal 21.0-32.0 [facility] Comment on above: Order Comment: Comme nts: NPO at [place] prior to lipid panel Performed By: #### L 500.4050, L500.4100, L501.9520, L100.0100, L501.9985 ####[facility] [address] [place], [address] Creatinine [Mass/Vol] 1.44 mg/dL High 0.55-1.02 [facility] Comment on above: Order Comment: Comme nts: NPO at [place] prior to lipid panel Result Comment: The validity of the calculated GFR GFRAA in patients over70 years has not been determined. Clinical correlation isessential. Performed By: #### L 500.4050, L500.4100, L501.9520, L100.0100, L501.9985 ####[facility] [address] [place], [address] ECRCL 34.35 ml/min Normal [facility] Comment on above: Order Comment: Comme nts: NPO at [place] prior to lipid panel Performed By: #### L 500.4050, L500.4100, L501.9520, L100.0100, L501.9985 ####[facility] [address] [place], [address] EST GFR - AA 45 mL/min Low >60 [facility] Comment on above: Order Comment: Comme nts: NPO at MN prior to lipid panel Result Comment: Afri can Montserratian GFR Calc Performed By: #### L 500.4050, L500.4100, L501.9520, L100.0100, L501.9985 ####[facility] [address] [place], [address] GAP 7 Normal 5-15 [facility] Comment on above: Order Comment: Comme nts: NPO at [place] prior to lipid panel Performed By: #### L 500.4050, L500.4100, L501.9520, L100.0100, L501.9985 ####[facility] [address] [place], [address] GFR/1.73 sq M.predicted among non-blacks MDRD (S/P/Bld) [Vol rate/Area] 37 mL/min/{1.73_m2} Low >60 [facility] Comment on above: Order Comment: Comme nts: NPO at [place] prior to lipid panel Result Comment: Non- GFR Calc Performed By: #### L 500.4050, L500.4100, L501.9520, L100.0100, L501.9985 ####[facility] [address] [place], [address] Globulin (S) [Mass/Vol] 3.6 g/dL Normal 2.2-4.2 [facility] Comment on above: Order Comment: Comme nts: NPO at [place] prior to lipid panel Performed By: #### L 500.4050, L500.4100, L501.9520, L100.0100, L501.9985 ####[facility] [address] [place], [address] Glucose [Mass/Vol] 138 mg/dL High 74-106 [facility] Comment on above: Order Comment: Comme nts: NPO at [place] prior to lipid panel Result Comment: Fast ing Glucose result greater than or equal to 126 mg/dLsuggests DIABETES MELLITUS per A.D.A. criteria. Performed By: #### L 500.4050, L500.4100, L501.9520, L100.0100, L501.9985 ####[facility] [address] [place], [address] Potassium [Moles/Vol] 4.6 mmol/L Normal 3.5-5.1 [facility] Comment on above: Order Comment: Comme nts: NPO at [place] prior to lipid panel Performed By: #### L 500.4050, L500.4100, L501.9520, L100.0100, L501.9985 ####[facility] [address] [place], [address] Sodium [Moles/Vol] 139 mmol/L Normal 136-145 [facility] Comment on above: Order Comment: Comme nts: NPO at [place] prior to lipid panel Performed By: #### L 500.4050, L500.4100, L501.9520, L100.0100, L501.9985 ####[facility] [address] [place], [address] T PROT 6.9 g/dL Normal 6.4-8.2 [facility] Comment on above: Order Comment: Comme nts: NPO at [place] prior to lipid panel Performed By: #### L 500.4050, L500.4100, L501.9520, L100.0100, L501.9985 ####[facility] [address] [place], [address] Urea nitrogen [Mass/Vol] 33 mg/dL High 7-18 [facility] Comment on above: Order Comment: Comme nts: NPO at [place] prior to lipid panel Performed By: #### L 500.4050, L500.4100, L501.9520, L100.0100, L501.9985 ####[facility] [address] [place], [address] Hemoglobin A1con 01-06-2024 HbA1c (Bld) [Mass fraction] 5.8 % High 3.8-5.6 [facility] Comment on above: Result Comment: Norm al < 5.7 % Prediabetic 5.7 - 6.4 % Diabetic >or= 6.5 % Please note range changes. Performed By: #### L 500.4050, L500.4100, L501.9520, L100.0100, L501.9985 ####[facility] [address] [place], [address] Lipid Profileon 01-06-2024 Cholesterol [Mass/Vol] 201 mg/dL High 200 [facility] Comment on above: Order Comment: Comme nts: NPO at [place] prior to lipid panel Result Comment: <200 mg/dL Desirable 200-240 mg/dL Borderline >240 mg/dL High Risk Performed By: #### L 500.4050, L500.4100, L501.9520, L100.0100, L501.9985 ####[facility] [address] [place], [address] Cholesterol in HDL [Mass/Vol] 41 mg/dL Normal [facility] Comment on above: Order Comment: Comme nts: NPO at [place] prior to lipid panel Result Comment: The drugs N-Acetylcysteine and Metamizole may falselydepress this assay. Reference Range HDL <40 mg/dL Low HDL Cholesterol HDL >or= 60 mg/dL High HDL Cholesterol Performed By: #### L 500.4050, L500.4100, L501.9520, L100.0100, L501.9985 ####[facility] [address] [place], [address] Cholesterol in LDL [Mass/Vol] 140 mg/dL High 0-130 [facility] Comment on above: Order Comment: Comme nts: NPO at [place] prior to lipid panel Performed By: #### L 500.4050, L500.4100, L501.9520, L100.0100, L501.9985 ####[facility] [address] [place], [address] Cholesterol in VLDL [Mass/Vol] 20 mg/dL Normal 5-40 [facility] Comment on above: Order Comment: Comme nts: NPO at [place] prior to lipid panel Performed By: #### L 500.4050, L500.4100, L501.9520, L100.0100, L501.9985 ####[facility] [address] [place], [address] Triglyceride [Mass/Vol] 99 mg/dL Normal [facility] Comment on above: Order Comment: Comme nts: NPO at [place] prior to lipid panel Result Comment: The drugs N-Acetylcysteine and Metamizole may falselydepress this assay.Serum Triglycerides Reference Interval Normal <150 mg/dL Borderline high 150 - 199 mg/dL High 200 - 499 mg/dL Very High > or = 500 mg/dL Performed By: #### L 500.4050, L500.4100, L501.9520, L100.0100, L501.9985 ####[facility] [address] [place], [address] MR/CON.PCM.NEon 01-06-2024 MR/CON.PCM.NE Normal [facility] RESPIRATORY PANEL MOLECULARo n 01-06-[address] [facility] Comment on above: Performed By: #### M 100.638 ####[facility] [address] [place], [address] Thyroid Stim Hormone (TSH)on 01-06-2024 TSH 1.140 uIU/mL Normal 0.358-3.740 [facility] Comment on above: Order Comment: Comme nts: NPO at [place] prior to lipid panel Performed By: #### L 500.4050, L500.4100, L501.9520, L100.0100, L501.9985 ####[facility] [address] [place], [address] 12 Lead EKGon 01-05-[address] [facility] BNP,B-Type NATRIURETIC PEPTI Delroy 01-05-2024 Natriuretic peptide B (Bld) [Mass/Vol] 161.7 pg/mL High 0-100 [facility] Comment on above: Performed By: #### L 509.7000, L501.5200, L503.6620 ####[facility] [address] [place], [address] Basic Metabolic Profile (BMP )on 01-05-2024 BUN/CRE 23.0 RATIO High 10-20 [facility] Comment on above: Order Comment: 1Y Performed By: #### L 300.4310, L501.5425, L300.3900, L503.6005, L100.0100, L500.2500 ####[facility] [address] [place], [address] CA,Total 9.4 mg/dL Normal 8.5-10.1 [facility] Comment on above: Order Comment: 1Y Performed By: #### L 300.4310, L501.5425, L300.3900, L503.6005, L100.0100, L500.2500 ####[facility] [address] [place], [address] Chloride [Moles/Vol] 104 mmol/L Normal 98-107 [facility] Comment on above: Order Comment: 1Y Performed By: #### L 300.4310, L501.5425, L300.3900, L503.6005, L100.0100, L500.2500 ####[facility] [address] [place], [address] CO2 [Moles/Vol] 28.0 mmol/L Normal 21.0-32.0 [facility] Comment on above: Order Comment: 1Y Performed By: #### L 300.4310, L501.5425, L300.3900, L503.6005, L100.0100, L500.2500 ####[facility] [address] [place], [address] Creatinine [Mass/Vol] 1.48 mg/dL High 0.55-1.02 [facility] Comment on above: Order Comment: 1Y Result Comment: The validity of the calculated GFR GFRAA in patients over70 years has not been determined. Clinical correlation isessential. Performed By: #### L 300.4310, L501.5425, L300.3900, L503.6005, L100.0100, L500.2500 ####[facility] [address] [place], [address] ECRCL 33.57 ml/min Normal [facility] Comment on above: Order Comment: 1Y Performed By: #### L 300.4310, L501.5425, L300.3900, L503.6005, L100.0100, L500.2500 ####[facility] [address] [place], [address] EST GFR - AA 43 mL/min Low >60 [facility] Comment on above: Order Comment: 1Y Result Comment: Afri can Montserratian GFR Calc Performed By: #### L 300.4310, L501.5425, L300.3900, L503.6005, L100.0100, L500.2500 ####[facility] [address] [place], [address] GAP 7 Normal 5-15 [facility] Comment on above: Order Comment: 1Y Performed By: #### L 300.4310, L501.5425, L300.3900, L503.6005, L100.0100, L500.2500 ####[facility] [address] [place], [address] GFR/1.73 sq M.predicted among non-blacks MDRD (S/P/Bld) [Vol rate/Area] 36 mL/min/{1.73_m2} Low >60 [facility] Comment on above: Order Comment: 1Y Result Comment: Non- GFR Calc Performed By: #### L 300.4310, L501.5425, L300.3900, L503.6005, L100.0100, L500.2500 ####[facility] [address] [place], [address] Glucose [Mass/Vol] 128 mg/dL High 74-106 [facility] Comment on above: Order Comment: 1Y Result Comment: Fast ing Glucose result greater than or equal to 126 mg/dLsuggests DIABETES MELLITUS per A.D.A. criteria. Performed By: #### L 300.4310, L501.5425, L300.3900, L503.6005, L100.0100, L500.2500 ####[facility] [address] [place], [address] Potassium [Moles/Vol] 4.1 mmol/L Normal 3.5-5.1 [facility] Comment on above: Order Comment: 1Y Performed By: #### L 300.4310, L501.5425, L300.3900, L503.6005, L100.0100, L500.2500 ####[facility] [address] [place], [address] Sodium [Moles/Vol] 139 mmol/L Normal 136-145 [facility] Comment on above: Order Comment: 1Y Performed By: #### L 300.4310, L501.5425, L300.3900, L503.6005, L100.0100, L500.2500 ####[facility] [address] [place], [address] Urea nitrogen [Mass/Vol] 34 mg/dL High 10-04 [facility] Comment on above: Order Comment: 1Y Performed By: #### L 300.4310, L501.5425, L300.3900, L503.6005, L100.0100, L500.2500 ####[facility] [address] [place], [address] Brain without Contraston Brain without Contrast Normal [facility] CBC W/Diff, Automatedon 12-18 Absolute Lymph 1.20 X10 3/uL Normal 0.83-4.51 [facility] Comment on above: Performed By: #### L 300.4310, L501.5425, L300.3900, L503.6005, L100.0100, L500.2500 ####[facility] [address] [place], [address] Absolute Neut 6.7 X10 3/uL Normal 2.0-7.7 [facility] Comment on above: Performed By: #### L 300.4310, L501.5425, L300.3900, L503.6005, L100.0100, L500.2500 ####[facility] [address] [place], [address] Basophils/100 WBC (Bld) 0.8 % Normal 0-1 [facility] Comment on above: Performed By: #### L 300.4310, L501.5425, L300.3900, L503.6005, L100.0100, L500.2500 ####[facility] [address] [place], [address] Eosinophils/100 WBC (Bld) 0.2 % Normal 0-5 [facility] Comment on above: Performed By: #### L 300.4310, L501.5425, L300.3900, L503.6005, L100.0100, L500.2500 ####[facility] [address] [place], [address] Erythrocyte distribution width (RBC) [Ratio] 13.3 % Normal 11.6-14.6 [facility] Comment on above: Performed By: #### L 300.4310, L501.5425, L300.3900, L503.6005, L100.0100, L500.2500 ####[facility] [address] [place], [address] Hematocrit (Bld) [Volume fraction] 45.6 % Normal 37-47 [facility] Comment on above: Performed By: #### L 300.4310, L501.5425, L300.3900, L503.6005, L100.0100, L500.2500 ####[facility] [address] [place], [address] Hemoglobin (Bld) [Mass/Vol] 15.2 g/dL High 12.0-15.0 [facility] Comment on above: Performed By: #### L 300.4310, L501.5425, L300.3900, L503.6005, L100.0100, L500.2500 ####[facility] [address] [place], [address] IG% 0.800 Normal 0.0-0.9 [facility] Comment on above: Result Comment: IG% - Immature Granulocytes (promyelocytes, myelocytes andmetamyelocytes) > 1% indicates that a LEFT SHIFT is Present. Performed By: #### L 300.4310, L501.5425, L300.3900, L503.6005, L100.0100, L500.2500 ####[facility] [address] [place], [address] Lymphocytes/100 WBC (Bld) 13.6 % Low 19-41 [facility] Comment on above: Performed By: #### L 300.4310, L501.5425, L300.3900, L503.6005, L100.0100, L500.2500 ####[facility] [address] [place], [address] MCH (RBC) [Entitic mass] 32.5 pg High 27.0-32.0 [facility] Comment on above: Performed By: #### L 300.4310, L501.5425, L300.3900, L503.6005, L100.0100, L500.2500 ####[facility] [address] [place], [address] MCHC (RBC) [Mass/Vol] 33.3 g/dL Normal 32-36 [facility] Comment on above: Performed By: #### L 300.4310, L501.5425, L300.3900, L503.6005, L100.0100, L500.2500 ####[facility] [address] [place], [address] MCV (RBC) [Entitic vol] 97.4 fL Normal 81-99 [facility] Comment on above: Performed By: #### L 300.4310, L501.5425, L300.3900, L503.6005, L100.0100, L500.2500 ####[facility] [address] [place], [address] Monocytes/100 WBC (Bld) 8.4 % Normal 0-10 [facility] Comment on above: Performed By: #### L 300.4310, L501.5425, L300.3900, L503.6005, L100.0100, L500.2500 ####[facility] [address] [place], [address] Neutrophils/100 WBC (Bld) 76.2 % High 47-70 [facility] Comment on above: Performed By: #### L 300.4310, L501.5425, L300.3900, L503.6005, L100.0100, L500.2500 ####[facility] [address] [place], [address] Nucleated RBC (Bld) [#/Vol] 0 10*3/uL Normal 0-5 [facility] Comment on above: Performed By: #### L 300.4310, L501.5425, L300.3900, L503.6005, L100.0100, L500.2500 ####[facility] [address] [place], [address] Platelet mean volume (Bld) [Entitic vol] 12.2 fL High 6.2-12.0 [facility] Comment on above: Performed By: #### L 300.4310, L501.5425, L300.3900, L503.6005, L100.0100, L500.2500 ####[facility] [address] [place], [address] Platelets (Bld) [#/Vol] 187 10*3/uL Normal 150-450 [facility] Comment on above: Performed By: #### L 300.4310, L501.5425, L300.3900, L503.6005, L100.0100, L500.2500 ####[facility] [address] [place], [address] RBC (Bld) [#/Vol] 4.68 10*6/uL Normal 4.2-5.4 [facility] Comment on above: Performed By: #### L 300.4310, L501.5425, L300.3900, L503.6005, L100.0100, L500.2500 ####[facility] [address] [place], [address] RDW SD 48.6 fl High 35.1-43.9 [facility] Comment on above: Performed By: #### L 300.4310, L501.5425, L300.3900, L503.6005, L100.0100, L500.2500 ####[facility] [address] [place], [address] WBC (Bld) [#/Vol] 8.8 10*3/uL Normal 4.4-11.0 [facility] Comment on above: Performed By: #### L 300.4310, L501.5425, L300.3900, L503.6005, L100.0100, L500.2500 ####[facility] [address] [place], [address] CTA Head AND Neck W/ Contras ton 01-05-2024 CTA Head AND Neck W/ Contrast Normal [facility] Chest 1 View (Portable)on Chest 1 View (Portable) Normal [facility] Echo Complete W/ Contraston 01-05-2024 Echo Complete W/ Contrast Normal [facility] Emergency Department Summary on 01-05-2024 Emergency Department [address] Normal [facility] H AND P Exam - Hospitaliston 01-05-2024 H&P Exam - Hospitalist Normal [facility] L501.4020on 01-05-2024 TROPONIN-I HS 24 pg/mL Normal 3.0-54.0 [facility] Comment on above: Result Comment: Plea se Note: New Test Units and Gender Specific Reference Ranges. For more information see Policy Stat Procedure Holley High Sensitivity Troponin (TNIH) and attachments. Performed By: #### L 501.4020 ####[facility] [address] [place], [address] L501.5425on 01-05-2024 TROPONIN-I HS 24 pg/mL Normal 3.0-54.0 [facility] Comment on above: Order Comment: 1Y Result Comment: Moriah horton Note: New Test Units and Gender Specific Reference Ranges. For more information see Policy Stat Procedure Holley High Sensitivity Troponin (TNIH) and attachments. Performed By: #### L 300.4310, L501.5425, L300.3900, L503.6005, L100.0100, L500.2500 ####[facility] [address] [place], [address] Lactic Acidon 01-05-2024 Lactate [Moles/Vol] 1.8 mmol/L Normal 0.4-1.9 [facility] Comment on above: Order Comment: Y Performed By: #### L 300.4310, L501.5425, L300.3900, L503.6005, L100.0100, L500.2500 ####[facility] [address] [place], [address] M100.678on 01-05-2024 M100.678 Pending SARS-CoV-2 (COVID 19) Negative INFLUENZA A Negative INFLUENZA B Negative RSV PCR Negative Normal [facility] Comment on above: Performed By: #### M 100.678 ####[facility] [address] [place], [address] Magnesiumon 01-05-2024 Magnesium [Mass/Vol] 2.4 mg/dL Normal 1.6-2.6 [facility] Comment on above: Order Comment: Comme nts: may add to ED labs Performed By: #### L 509.7000, L501.5200, L503.6620 ####[facility] [id number] [place], [address] Partial Thromboplast Timeon 01-05-2024 aPTT Coag (Bld) [Time] 27.0 s Normal 24.1-36.2 [facility] Comment on above: Performed By: #### L 300.4310, L501.5425, L300.3900, L503.6005, L100.0100, L500.2500 ####[facility] [id number] [place], [address] Procalcitoninon 01-05-2024 Procalcitonin 0.08 ng/mL Normal 0.00-0.09 [facility] Comment on above: Result Comment: A [...] Performed By: #### L 509.7000, L501.5200, L503.6620 ####[facility] [id number] [facility]. [place], [place], [phone] Prothrombin Time w/INRon INR Coag (PPP) [Relative time] 1.6 {INR} Normal [facility] Comment on above: Performed By: #### L 300.4310, L501.5425, L300.3900, L503.6005, L100.0100, L500.2500 ####[facility] [id number] [facility] [place], [address] PT Coag (PPP) [Time] 18.9 s High 11.7-14.9 [facility] Comment on above: Performed By: #### L 300.4310, L501.5425, L300.3900, L503.6005, L100.0100, L500.2500 ####[facility] [address] [place], [address] Urinalysis, Completeon 01-04 CAST,HYALINE 0-5 SEEN Normal 0-5 [facility] Comment on above: Order Comment: COLLE CTOR TO SPECIFY Performed By: #### L 400.0001 ####[facility] [address] [place], [address] RBC 0-5 SEEN Normal 0-5 [facility] Comment on above: Order Comment: COLLE CTOR TO SPECIFY Performed By: #### L 400.0001 ####[facility] [address] [place], [address] WBC 0-5 SEEN Normal 0-5 [facility] Comment on above: Order Comment: JESÚS CTOR TO SPECIFY Performed By: #### L 400.0001 ####[facility] [address] [place], [address] EPI,SQUAMOUS 0-5 SEEN Normal 5-10 [facility] Comment on above: Order Comment: JESÚS CTOR TO SPECIFY Performed By: #### L 400.0001 ####[facility] [address] [place], [address] BACTERIA 0 SEEN Normal None Seen [facility] Comment on above: Order Comment: JESÚS CTOR TO SPECIFY Performed By: #### L 400.0001 ####[facility] [address] [place], [address] Mucus Ql (Urine sed) 0 SEEN Normal [facility] Comment on above: Order Comment: JESÚS CTOR TO SPECIFY Performed By: #### L 400.0001 ####[facility] [address] [place], [address] 36on 01-04-2024 36 I spoke w/ Juana in Dr. Garces's office, asking for echo order to be faxed. I placed order, M. Sandeep DNP to sign, order needs faxed to Juana's attention @ [phone]. Time frame dates given to Juana for completion of OV/EKG/echo. KCCQ mailed to pt. [facility] 36 ----- Message from JEREMIE Saldaña CNP sent at 01/04/2024 1:51 PM EDT ----- Please call [place] office and advise regarding registry requirements of one month and one yr appts and echo. Will likely need phone call for KCCQ. [facility] Office Visiton 01-04-2024 Follow-up visit [id number] Brianne Call 1940 F Date Provider Department Center 01/04/2024 [id number]-BXGUWZMÓNICA DAVID [facility] [address] No family history on file Level of Service:82731 [place] OFFICE/OUTPATIENT ESTABLISHED MOD MDM 30 MIN Reason for Visit and Comments: Cardiac Valve Problem [1334] - One week post TAVR [facility] Progress Noteon 01-04-2024 Progress Note [facility] [place] [address] [facility] [address] Dept: [phone] Dept Visit type: Established : 1940 Reason for Visit: Cardiac Valve Problem (One week post TAVR) Assessment and Plan 1. Chronic atrial fibrillation (HCC). HR stable. Continue Apixaban 2. Severe aortic stenosis. S/p tAVR. Continue Eliquis. Will contact [place] regarding follow up and registry requirements. SBE prophylaxis. Plan echo in one month 3. Stage 3a chronic kidney disease (HCC). Renal function remains stable post procedure. Advised that kidney function should be followed mcfp. GFR 27--> 46 4. Left heart failure (HCC). Improved after TAVR, EF 30%--> 50 %, continue furosemide, Aldactone, Farxiga, metoprolol (allerg to landon/ARB) Plan follow up in [place] Subjective Ms Call is an 83 yr old female with a PMH of permanent AF, HFrEF, HTN, HPL, CKD stage 3b, obesity, GERD, and severe with EF 30%, mean and peak gradients 49/71 mm Hg. She underwent cardiac cath at [place] which showed non obstructive CAD. She underwent [...] wrist complaints. She wishes to follow in [place] as travel is difficult for her Allergies [...] Hypokalemia LVH (left ventricular hypertrophy) Morbid obesity ([facility]) Osteoarthritis Vitamin D deficiency Social History Tobacco Use Smoking status: Never Smokeless tobacco: Never Substance Use Topics Alcohol use: Never Past Surgical History: Procedure Laterality Date APPENDECTOMY CARDIAC CATHETERIZATION N/A 12/25/2023 Performed by Harjeet Huffman MD at [facility] OR CATARACT EXTRACTION HYSTERECTOMY No [...] specialty: Independent interpretation of tests: Mónica David, COMMISSION SALES ASSOCIATE - MEDICAL ASSISTANT SECRETARY Normal [facility] BASIC METABOLIC PANELon 10-0 Anion gap [Moles/Vol] 7 mmol/L Normal 3-13 [facility] [place] [facility] Comment on above: Performed By: #### L AB15 ####Social Media Assistant: AIDE RUEDA ([phone])[facility])[address] [place] [address] Calcium [Mass/Vol] 9.1 mg/dL Normal 8.4-10.4 [facility] Comment on above: Performed By: #### L AB15 ####Social Media Assistant: AIDE RUEDA ([phone])[facility] ([facility])[address] [place] [address] [place] Chloride [Moles/Vol] 108 mmol/L High 98-107 [facility] Comment on above: Performed By: #### L AB15 ####Social Media Assistant: AIDE RUEDA ([phone])[facility])[address] [place] [address] CO2 [Moles/Vol] 19 mmol/L Low 22-30 [facility] Comment on above: Performed By: #### L AB15 ####Social Media Assistant: AIDE RUEDA ([phone])[facility] ([facility])[address] [place] [address] Creatinine [Mass/Vol] 1.17 mg/dL High 0.52-1.04 [facility] [place] [facility] Comment on above: Performed By: #### L AB15 ####Social Media Assistant: AIDE RUEDA ([phone])[facility])[address] [place] [address] GLOMERULAR FILTRATION RATE ML/MIN/1.73 SQ M.PREDICTED 46.4 mL/min/1.73m*2 Low >60.0 [facility] Comment on above: Result Comment: Calc ulation based on the Chronic Kidney Disease Epidemiology Collaboration (CKD-EPI) equation refit without adjustment for race Performed By: #### L AB15 ####Social Media Assistant: AIDE RUEDA ([id number])[facility])[address] [place] [address] Glucose [Mass/Vol] 121 mg/dL High 70-100 [facility] Comment on above: Performed By: #### L AB15 ####Social Media Assistant: AIDE RUEDA ([phone])[facility])[address] [place] [address] Potassium [Moles/Vol] 4.4 mmol/L Normal 3.5-5.1 [facility] [place] [facility] Comment on above: Performed By: #### L AB15 ####Social Media Assistant: AIDE RUEDA ([phone])[facility])[address] [place] [address] Sodium [Moles/Vol] 134 mmol/L Low 135-145 [facility] Comment on above: Performed By: #### L AB15 ####Social Media Assistant: AIDE RUEDA ([phone])[facility])[address] [place] [address] Urea nitrogen [Mass/Vol] 31 mg/dL High 7-17 [facility] Comment on above: Performed By: #### L AB15 ####Social Media Assistant: AIDE RUEDA ([phone])[facility] [place] [address] Basic metabolic 1998 panelon 12-26-2023 Anion gap [Moles/Vol] 7 mmol/L 3 - 13 mmol/L [facility] Calcium [Mass/Vol] 9.1 mg/dL 8.4 - 10. 4 mg/dL [facility] Chloride [Moles/Vol] 108 mmol/L High 98 - 10 7 mmol/L [facility] CO2 [Moles/Vol] 19 mmol/L Low 22 - 30 mmol/L [facility] Creatinine [Mass/Vol] 1.17 mg/dL High 0.52 - 1.04 mg/dL [facility] GFR/1.73 sq M.predicted (S/P/Bld) [Vol rate/Area] 46.4 mL/min Low - PINF [facility] Comment on above: Calculation based on the Chronic Kidney Disease Epidemiology Collaboration (CKD-EPI) equation refit without adjustment for race Glucose [Mass/Vol] 121 mg/dL High 70 - 100 mg/dL [facility] Interpretation and review of laboratory results Abnormal [facility] Potassium [Moles/Vol] 4.4 mmol/L 3.5 - 5.1 mmol/L [facility] Sodium [Moles/Vol] 134 mmol/L Low 135 - 145 mmol/L [facility] Urea nitrogen [Mass/Vol] 31 mg/dL High 7 - 17 mg/dL [facility] CBC (HEMOGRAM)on 12-26-2023 Erythrocyte distribution width (RBC) [Ratio] 13.3 % Normal 11.5-15.0 [facility] Comment on above: Performed By: #### L AB294 ####Social Media Assistant: AIDE RUEDA ([phone])[facility] [place] [address] Hematocrit (Bld) [Volume fraction] 43.0 % Normal 35.0-47.0 [facility] Comment on above: Performed By: #### L AB294 ####Social Media Assistant: AIDE RUEDA ([phone])[facility] [place] [address] Hemoglobin (Bld) [Mass/Vol] 14.0 g/dL Normal 11.7-16.0 [facility] Comment on above: Performed By: #### L AB294 ####Social Media Assistant: AIDE RUEDA ([id number])[facility])[address] [place] [address] MCH (RBC) [Entitic mass] 31.9 pg Normal 26.0-34.0 [facility] Comment on above: Performed By: #### L AB294 ####Social Media Assistant: AIDE RUEDA ([phone])[facility])[address] [place] [address] MCHC 32.6 % Normal 30.5-36.0 [facility] Comment on above: Performed By: #### L AB294 ####Social Media Assistant: AIDE RUEDA ([phone])[facility])[address] [place] [address] MCV (RBC) [Entitic vol] 97.9 fL Normal 77.0-99.0 S [facility] Comment on above: Performed By: #### L AB294 ####Social Media Assistant: AIDE RUEDA ([phone])[facility])[address] [place] [address] Platelet mean volume (Bld) [Entitic vol] 12.4 fL Normal 9.0-12.7 [facility] Comment on above: Performed By: #### L AB294 ####Social Media Assistant: AIDE RUEDA ([phone])[facility])[address] [place] [address] Platelets (Bld) [#/Vol] 154 10*3/uL Normal 140-440 [facility] Comment on above: Performed By: #### L AB294 ####Social Media Assistant: AIDE RUEDA ([phone])[facility])[address] [place] [address] RBC (Bld) [#/Vol] 4.39 10*6/uL Normal 3.80-5.20 [facility] Comment on above: Performed By: #### L AB294 ####Social Media Assistant: AIDE RUEDA ([id number])[facility] ([facility])[address] [place] [address] WBC (Bld) [#/Vol] 11.6 10*3/uL High 3.6-10.7 [facility] Comment on above: Performed By: #### L AB294 ####Social Media Assistant: AIDE RUEDA ([id number])[facility] ([facility])[address] [place] [address] CBC panel Auto (Bld)on 12-25 Erythrocyte distribution width (RBC) [Ratio] 13.3 % 11.5 - 15.0 % [facility] Hematocrit (Bld) [Volume fraction] 43.0 % 35.0 - 47.0 % [facility] Hemoglobin (Bld) [Mass/Vol] 14.0 g/dL 11.7 - 16.0 g/dL [facility] Interpretation and review of laboratory results Abnormal [facility] MCH (RBC) [Entitic mass] 31.9 pg 26.0 - 34.0 pg [facility] MCHC (RBC) [Mass/Vol] 32.6 % 30.5 - 36.0 % [facility] MCV (RBC) [Entitic vol] 97.9 fL 77.0 - 99.0 fL [facility] Platelet mean volume (Bld) [Entitic vol] 12.4 fL 9.0 - 12.7 fL [facility] Platelets (Bld) [#/Vol] 154 10*3/uL 140 - 440 10*3/uL [facility] RBC (Bld) [#/Vol] 4.39 10*6/uL 3.80 - 5.2 0 10*6/uL [facility] WBC (Bld) [#/Vol] 11.6 10*3/uL High 3.6 - 10.7 10*3/uL [facility] ECG 12-LEADon 12-26-2023 ECG 12-LEAD IMPRESSION: Atrial fibrillation with slow ventricular rate Repol abnrm suggests ischemia, diffuse leads Electronically Signed On 12-26-2023 16:26:55 EDT by Austin Carmona Normal [facility] No Panel InformationOrdered By: Austin Carmona on 12-26-2023 P [place] 0 degrees [facility] Work Phone: NH Interval 0 ms [facility] Work Phone: QRS [place] 48 degrees [facility] Work Phone: QRSD Interval 103 ms [facility] [employer] Work Phone: QT Interval 492 ms [facility] Work Phone: QTC Interval 404 ms [facility] Work Phone: T Wave [place] -74 degrees [facility] Work Phone: [facility] Work Phone: No Panel Informationon 12-25 Atrial fibrillation with slow ventricular rate Repol abnrm suggests ischemia, diffuse leads Electronically Signed On 12-26-2023 16:26:55 EDT by Austin Carmona Austin Kruger MD - 12/26/2023 IMPRESSION: Atrial fibrillation with slow ventricular rate Repol abnrm suggests ischemia, diffuse leads Electronically Signed On 12-26-2023 16:26:55 EDT by Austin Carmona [facility] P [place] 0 degrees [facility] [place] Interval 0 ms [facility] QRS [place] 22 degrees [facility] QRSD Interval 112 ms [facility] [employer] QT Interval 441 ms [facility] QTC Interval 405 ms [facility] T Wave [place] 230 degrees [facility] Austin Carmona MD - 12/26/2023 IMPRESSION: Atrial fibrillation Poor R wave progression, CONSIDER ANTERIOR INFARCT ST and T abnormality Electronically Signed On 12-26-2023 09:21:43 EDT by Austin Carmona [facility] Nursing Noteon 12-26-2023 Nursing Note Discharge instructions given to patient and daughter. Patient verbalizes understanding of medication changes and follow up appointments, and activity restrictions. Discharged to home with daughter. Normal [facility] US Heart TransthoracicOrdere d By: Christopher Ruggiero on 12-26-2023 Ao Root Index 1.47 cm/m2 [employer] Work Phone: Aortic Root 3.1 cm [facility] Work Phone: Aortic Sinus Valsalva 3.1 cm [facility] Work Phone: Aortic Sinus Valsalva Index 1.47 cm/m2 [facility] Work Phone: Ascending Aorta 3.6 cm [facility] Work Phone: Ascending Aorta Index 1.71 cm/m2 [facility] Work Phone: AV Area by Peak Velocity 0.6 cm2 [facility] Work Phone: AV Area by VTI [...] ealth Work Phone: AV VTI 71.0 cm [facility] Work Phone: RAMÓN/BSA Peak Velocity 0.3 cm2/m2 [facility] Work Phone: RAMÓN/BSA VTI 0.6 cm2/m2 [facility] Work Phone: E/E' Lateral 11.25 [facility] Work Phone: E/E' Ratio (Averaged) 16.88 [facility] Work Phone: E/E' Septal 22.50 [facility] Work Phone: EF BP 36 % Abnormal 55 - 100 % [facility] Work Phone: Est. RA Pressure 3 mmHg [facility] Work Phone: Fractional Shortening 2D 29 % 28 - 44 % [facility] Work Phone: Interpretation and review of laboratory results Abnormal [facility] Work Phone: IVC Diameter 2.2 cm [facility] Work Phone: IVSd 1.4 cm Abnormal 0.6 - 0.9 cm [facility] Work Phone: LA Diameter 4.9 cm [facility] Work Phone: LA Size Index 2.32 cm/m2 [facility] Work Phone: LA Volume 2C 111 mL Abnormal 22 - 52 mL [facility] Work Phone: LA Volume 4C 131 mL Abnormal 22 - 52 mL [facility] Work Phone: LA Volume A/L 137 mL [facility] Work Phone: LA Volume BP 127 mL Abnormal 22 - 52 mL [facility] Work Phone: LA Volume Index 2C 53 mL/m2 Abnormal 16 - 34 mL/m2 [facility] Work Phone: LA Volume Index 4C 62 mL/m2 Abnormal 16 - 34 mL/m2 [facility] Work Phone: LA Volume Index A/L 65 mL/m2 16 - 34 mL/m2 [facility] Work Phone: LA Volume Index BP 60 ml/m2 Abnormal 16 - 34 ml/m2 [facility] Work Phone: LA/AO Root Ratio 1.58 [facility] Work Phone: LV E' Lateral Velocity 8 cm/s [facility] Work Phone: LV E' Septal Velocity 4 cm/s [facility] Work Phone: LV EDV A2C 137 mL [facility] Work Phone: LV EDV A4C 145 mL [facility] Work Phone: LV EDV BP 148 mL Abnormal 56 - 104 mL [facility] Work Phone: LV EDV Index A2C 65 mL/m2 [facility] Work Phone: LV EDV Index A4C 69 mL/m2 [facility] Work Phone: LV EDV Index BP 70 mL/m2 [facility] In[facility] lt Work Phone: LV Ejection Fraction A2C 36 % [facility] Work Phone: LV Ejection Fraction A4C 35 % [facility] Work Phone: LV ESV A2C 88 mL [facility] Work Phone: LV ESV A4C 94 mL [facility] Work Phone: LV ESV BP 95 mL Abnormal 19 - 49 mL [facility] Work Phone: LV ESV Index A2C 42 mL/m2 [facility] Involvio [facility] Work Phone: LV ESV Index A4C 45 mL/m2 [facility] Involvio [facility] Work Phone: LV ESV Index BP 45 mL/m2 [facility] Work Phone: LV Mass 2D 355.3 g Abnormal 67 - 162 g [facility] Work Phone: LV Mass 2D Index 168.4 g/m2 Abnormal 43 - 95 g/m2 [facility] Work Phone: LV RWT Ratio 0.55 [facility] Work Phone: LVIDd 5.5 cm Abnormal 3.9 - 5.3 cm [facility] Work Phone: LVIDd Index 2.61 cm/m2 [facility] Work Phone: LVIDs 3.9 cm [facility] Work Phone: LVIDs Index 1.85 cm/m2 [facility] Work Phone: LVOT Area 4.2 cm2 [facility] Work Phone: LVOT Cardiac Output 3.1 liter/mi nut e [facility] Work Phone: LVOT Diameter 2.3 cm [facility] Work Phone: LVOT Mean Gradient 2 mmHg [facility] Work Phone: LVOT Peak Gradient 3 mmHg [facility] Work Phone: LVOT Peak Velocity 0.8 m/s [facility] Work Phone: LVOT Stroke Volume Index 45.3 mL/m2 [facility] Work Phone: LVOT SV 95.5 ml [facility] Work Phone: LVOT VTI 23.0 cm [facility] Work Phone: LVOT:AV VTI Index 0.32 [facility] Work Phone: LVPWd 1.5 cm Abnormal 0.6 - 0.9 cm [facility] Work Phone: MR VTI 167.4 cm [facility] Work Phone: MV A Velocity 0.53 m/s [facility] Work Phone: MV Area by PHT 3.0 cm2 [facility] Work Phone: MV Area by VTI 2.1 cm2 [facility] Work Phone: MV E Velocity 0.90 m/s [facility] Work Phone: MV E Wave Deceleration Time 149.3 ms [facility] Work Phone: MV E/A 1.70 [facility] Work Phone: MV Max Velocity 1.2 m/s [facility] Work Phone: MV Mean Gradient 2 mmHg [facility] Work Phone: MV Mean Velocity 0.6 m/s [facility] Work Phone: MV Nyquist Velocity 30 cm/s [facility] Work Phone: MV Peak Gradient 6 mmHg [facility] Work Phone: MV PHT 73.0 ms [facility] Work Phone: MV Regurg Velocity PISA 5.3 m/s [facility] Work Phone: MV VTI 46.5 cm [facility] Work Phone: MV:LVOT VTI Index 2.02 [facility] Work Phone: RA Area 4C 65.2 mL [facility] Work Phone: RV Basal Dimension 3.4 cm [facility] Work Phone: RV Free [place] Peak S' 9 cm/s [facility] Work Phone: RV Mid Dimension 1.4 cm [facility] Work Phone: RVSP 41 mmHg [facility] Work Phone: Sinotubular Junction 2.5 cm [facility] Work Phone: TAPSE 1.7 cm 1.7 cm [facility] Work Phone: TR Max Velocity 3.10 m/s [facility] Work Phone: [facility] Work Phone: US Heart Transthoracicon Left Ventricle: Left ventricle size [...] on 12-26-2023 Heart rate 37 /min bpm [facility] Work Phone: Vital signson 12-26-2023 Heart rate 51 /min bpm [facility] BASIC METABOLIC PANELon 10-0 Anion gap [Moles/Vol] 9 mmol/L Normal 3-13 [facility] Comment on above: Performed By: #### L AB15 ####Social Media Assistant: AIDE RUEDA ([phone])[facility] [place] [address] Calcium [Mass/Vol] 8.5 mg/dL Normal 8.4-10.4 [facility] Comment on above: Performed By: #### L AB15 ####Social Media Assistant: AIDE RUEDA ([phone])[facility] ([facility])[address] [place] [address] Chloride [Moles/Vol] 113 mmol/L High 98-107 [facility] Comment on above: Performed By: #### L AB15 ####Social Media Assistant: AIDE RUEDA ([phone])[facility] ([facility])[address] [place] [address] CO2 [Moles/Vol] 19 mmol/L Low 22-30 [facility] Comment on above: Performed By: #### L AB15 ####Social Media Assistant: AIDE RUEDA ([phone])[facility])[address] [place] [address] Creatinine [Mass/Vol] 1.09 mg/dL High 0.52-1.04 [facility] Comment on above: Performed By: #### L AB15 ####Social Media Assistant: AIDE RUEDA ([phone])[facility])[address] [place] [address] GLOMERULAR FILTRATION RATE ML/MIN/1.73 SQ M.PREDICTED 50.5 mL/min/1.73m*2 Low >60.0 [facility] Comment on above: Result Comment: Calc ulation based on the Chronic Kidney Disease Epidemiology Collaboration (CKD-EPI) equation refit without adjustment for race ORDER COMMENTS: Slightly Hemolyzed. Interpret {TESTS AFFECTED BY SLIGHT HEMOLYSIS:61754} with caution. Performed By: #### L AB15 ####Social Media Assistant: AIDE RUEDA ([phone])[facility] ([facility])[address] [place] [address] Glucose [Mass/Vol] 148 mg/dL High 70-100 [facility] Comment on above: Performed By: #### L AB15 ####Social Media Assistant: AIDE RUEDA ([id number])[facility] ([facility])[address] [place] [address] [place] Potassium [Moles/Vol] 4.7 mmol/L Normal 3.5-5.1 [facility] Comment on above: Performed By: #### L AB15 ####Social Media Assistant: AIDE RUEDA ([phone])[facility])[address] [place] [address] Sodium [Moles/Vol] 141 mmol/L Normal 135-145 [facility] Comment on above: Performed By: #### L AB15 ####Social Media Assistant: AIDE RUEDA ([phone])[facility] ([facility])[address] [place] [address] Urea nitrogen [Mass/Vol] 28 mg/dL High 7-17 [facility] Comment on above: Performed By: #### L AB15 ####Social Media Assistant: AIDE RUEDA ([phone])[facility] ([facility])[address] [place] [address] BLOOD TYPE AND SCREEN GELon 12-25-2023 ABO GROUPING O Normal [facility] Comment on above: Performed By: #### L [id number] #### Social Media Assistant: AIDE RUEDA ([id number]) [facility] ([facility]) [address] [place] [address] RH TYPE IN BLOOD Positive Normal [facility] Comment on above: Performed By: #### L AB276 #### Social Media Assistant: AIDE RUEDA ([phone]) [facility] ([facility]) [address] [place] [address] Basic metabolic 1998 panelon 12-25-2023 Anion gap [Moles/Vol] 9 mmol/L 3 - 13 mmol/L [facility] Calcium [Mass/Vol] 8.5 mg/dL 8.4 - 10. 4 mg/dL [facility] Chloride [Moles/Vol] 113 mmol/L High 98 - 10 7 mmol/L [facility] CO2 [Moles/Vol] 19 mmol/L Low 22 - 30 mmol/L [facility] Creatinine [Mass/Vol] 1.09 mg/dL High 0.52 - 1.04 mg/dL [facility] GFR/1.73 sq M.predicted (S/P/Bld) [Vol rate/Area] 50.5 mL/min Low - PINF [facility] Comment on above: Calculation based on the Chronic Kidney Disease Epidemiology Collaboration (CKD-EPI) equation refit without adjustment for race Glucose [Mass/Vol] 148 mg/dL High 70 - 100 mg/dL [facility] Interpretation and review of laboratory results Abnormal [facility] Potassium [Moles/Vol] 4.7 mmol/L 3.5 - 5.1 mmol/L [facility] Sodium [Moles/Vol] 141 mmol/L 135 - 145 mmol/L [facility] Urea nitrogen [Mass/Vol] 28 mg/dL High 7 - 17 mg/dL [facility] Slightly Hemolyzed. Interpret {TESTS AFFECTED BY SLIGHT HEMOLYSIS:95354} with caution. [facility] Blood type and Crossmatch pa justin (Bld)on 12-25-2023 ABO group Nom (Bld) O [facility] Blood group antibody screen GEL Ql Negative [facility] D Ag Ql (RBC) Positive [facility] CBC (HEMOGRAM)on 12-25-2023 Erythrocyte distribution width (RBC) [Ratio] 13.3 % Normal 11.5-15.0 [facility] Comment on above: Performed By: #### L [id number] ####Social Media Assistant: AIDE RUEDA ([phone])[address] Hematocrit (Bld) [Volume fraction] 39.5 % Normal 35.0-47.0 [facility] Comment on above: Performed By: #### L [id number] ####Social Media Assistant: AIDE RUEDA ([phone])[address] Hemoglobin (Bld) [Mass/Vol] 13.0 g/dL Normal 11.7-16.0 [facility] Comment on above: Performed By: #### L [id number] ####Social Media Assistant: AIDE RUEDA ([phone])[address] MCH (RBC) [Entitic mass] 31.9 pg Normal 26.0-34.0 [facility] Comment on above: Performed By: #### L [id number] ####Social Media Assistant: AIDE RUEDA ([phone])[address] MCHC 32.9 % Normal 30.5-36.0 [facility] Comment on above: Performed By: #### L [id number] ####Social Media Assistant: AIDE RUEDA ([phone])[facility] ([facility])[address] [place] [address] MCV (RBC) [Entitic vol] 97.1 fL Normal 77.0-99.0 S [facility] Comment on above: Performed By: #### L [id number] ####Social Media Assistant: AIDE RUEDA ([phone])[facility])[address] [place] [address] Platelet mean volume (Bld) [Entitic vol] 12.2 fL Normal 9.0-12.7 [facility] Comment on above: Performed By: #### L [id number] ####Social Media Assistant: AIDE RUEDA ([phone])[facility])[address] [place] [address] Platelets (Bld) [#/Vol] 140 10*3/uL Normal 140-440 [facility] Comment on above: Performed By: #### L [id number] ####Social Media Assistant: AIDE RUEDA ([phone])[facility] ([facility])[address] [place] [address] RBC (Bld) [#/Vol] 4.07 10*6/uL Normal 3.80-5.20 [facility] Comment on above: Performed By: #### L [id number] ####Social Media Assistant: AIDE RUEDA ([phone])[facility])[address] [place] [address] WBC (Bld) [#/Vol] 9.1 10*3/uL Normal 3.6-10.7 [facility] Comment on above: Performed By: #### L [id number] ####Social Media Assistant: AIDE RUEDA ([phone])[facility])[address] [place] [address] CBC panel Auto (Bld)on 12-24 Erythrocyte distribution width (RBC) [Ratio] 13.3 % 11.5 - 15.0 % [facility] Hematocrit (Bld) [Volume fraction] 39.5 % 35.0 - 47.0 % [facility] Hemoglobin (Bld) [Mass/Vol] 13.0 g/dL 11.7 - 16.0 g/dL [facility] Interpretation and review of laboratory results Normal [facility] MCH (RBC) [Entitic mass] 31.9 pg 26.0 - 34.0 pg [facility] MCHC (RBC) [Mass/Vol] 32.9 % 30.5 - 36.0 % [facility] MCV (RBC) [Entitic vol] 97.1 fL 77.0 - 99.0 fL [facility] Platelet mean volume (Bld) [Entitic vol] 12.2 fL 9.0 - 12.7 fL [facility] Platelets (Bld) [#/Vol] 140 10*3/uL 140 - 440 10*3/uL [facility] RBC (Bld) [#/Vol] 4.07 10*6/uL 3.80 - 5.2 0 10*6/uL [facility] WBC (Bld) [#/Vol] 9.1 10*3/uL 3.6 - 10.7 10*3/uL [facility]2023 Successful qcilg-pz-ptffu TAVR with a 23mm soumya S3u, via [...] Via the left femoral vein, a 6 Dutch sheath was placed and temporary pacing wire was placed into the RV apex with appropriate capture, in addition sterile tubing was attached and given the anesthesia for central access. Via right radial artery, a 6-Dutch sheath was placed and the pigtail catheter was placed into the aortic annulus with confirmation the implant angle. Via the left femoral artery, a 6-Dutch sheath was placed. The patient was then heparinized. Next, two Perclose devices were used using the pre-close strategy. A Super Stiff wire was then placed through the second Perclose into the descending aorta. Then, a 14-Dutch Soumya E-sheath was introduced over the wire [...] care of your patient while hospitalized at [facility]. I will continue to follow along while hospitalized. Please do not hesitate to call with any questions. obiwon [employer] Bottle No Panel Informationon 12-24 Blood Expiration Date S [facility] Bottle Blood Expiration Date S [facility] Bottle Crossmatch interpretation COMP [facility] Bottle Dispense Status Crossmatch [facility] Product Blood Type 5100 [facility] Bottle PRODUCT CODE [id number] [facility] PRODUCT CODE [id number] [facility] Unit ABO O [facility] Unit Number [id number] [facility] Number [id number] [facility] RH Positive [facility] Unit Volume 300 mL [facility] Op Noteon 12-25-2023 Op Note Date of [...] The valve was passed through the 14 Dutch sapient E sheath into the descending thoracic [...] was decannulated transferred stable to recovery. Normal [facility] US Heart TransthoracicOrdere d By: Otto Fernandez on 12-25-2023 AV Area (Pre-TAVR) 0.3 cm2 [facility] Work Phone: AV Area by Peak Velocity 0.7 cm2 [facility] Work Phone: AV Area by VTI 0.7 cm2 [facility] Work Phone: AV Mean Gradient 14 mmHg [facility] Work Phone: AV Mean Gradient (Pre-TAVR) 59 mmHg [facility] Work Phone: AV Mean Velocity 1.7 m/s [facility] Work Phone: AV Peak Gradient 25 mmHg [facility] Work Phone: AV Peak Gradient (Pre-TAVR) 93 mmHg [facility] Work Phone: AV Peak Velocity 2.5 m/s [facility] Work Phone: AV Peak Velocity (Pre-TAVR) 4.8 m/s [facility] Work Phone: AV Velocity Ratio 0.20 [facility] Work Phone: AV VTI 60.2 cm [facility] Work Phone: RAMÓN/BSA Peak Velocity 0.3 cm2/m2 [facility] Work Phone: RAMÓN/BSA VTI 0.3 cm2/m2 [facility] Work Phone: Est. RA Pressure 3 mmHg [facility] Work Phone: LVOT Area 3.1 cm2 [facility] Work Phone: LVOT Cardiac Output 1.6 liter/mi nut e [facility] Work Phone: LVOT Diameter 2.0 cm [facility] Work Phone: LVOT Mean Gradient 1 mmHg [facility] Work Phone: LVOT Peak Gradient 1 mmHg [facility] Work Phone: LVOT Peak Velocity 0.5 m/s [facility] Work Phone: LVOT Stroke Volume Index 20.6 mL/m2 [facility] Work Phone: LVOT SV 42.7 ml [facility] Work Phone: LVOT VTI 13.6 cm [facility] Work Phone: LVOT:AV VTI Index 0.23 [facility] Work Phone: RVSP 51 mmHg [facility] Work Phone: TR Max Velocity 3.45 m/s [facility] Work Phone: TR Peak Gradient 48 mmHg [facility] Work Phone: [facility] Phone: Heart Transthoracicon Aortic Valve: Lucia Soumya [...] a supine position. No contrast was given. [facility] CT ANGIOGRAM TAVRon 12-22-19 CT ANGIOGRAM [...] 12/22/2023 11:10 AM EDT --------ORIGINAL REPORT -------- [facility] Valve [facility] Cardiovascular CTA Indication: 83 year-old woman with severe aortic stenosis, being evaluated for transcatheter aortic valve implantation. Technique: Computed tomography of the heart, thoracoabdominal aorta, and iliofemoral system was performed using a [employer] [facility] One 320 detector scanner. Images were [...] VELEZ MEGGAN Reason For Exam: aortic stenosis [facility] Valve [facility] Cardiovascular CTA Indication: 83 year-old woman with severe aortic stenosis, being evaluated for transcatheter aortic valve implantation. Technique: Computed tomography of the heart, thoracoabdominal aorta, and iliofemoral system was performed usi (more content not included)... Normal [facility] 36on 12-21-2023 36 Patient has stage 3 b- 4 CKD, stable compared to previous. OK to proceed. Normal [facility] 36 BMP received, reviewed, MA to enter, Creat 1.9 GFR 27. MJennifer David CNP to review. Normal [facility] 36 I called [facility] for BMP, left message w/ OP lab to fax results. Normal [facility] Basic Metabolic Profile (BMP )on 12-19-2023 BUN/CRE 17.9 RATIO Normal 01-06 [facility] Comment on above: Performed By: #### L 500.2500 ####[facility] [address] [place], [place], [id number] CA,Total 9.8 mg/dL Normal 8.5-10.1 [facility] Comment on above: Performed By: #### L 500.2500 ####[facility] [address] [place], [address] Chloride [Moles/Vol] 103 mmol/L Normal 98-107 [facility] Comment on above: Performed By: #### L 500.2500 ####[facility] [address] [place], [address] CO2 [Moles/Vol] 26.0 mmol/L Normal 21.0-32.0 [facility] Comment on above: Performed By: #### L 500.2500 ####[facility] [address] [place], [address] Creatinine [Mass/Vol] 1.90 mg/dL High 0.55-1.02 [facility] Comment on above: Result Comment: The validity of the calculated GFR GFRAA in patients over70 years has not been determined. Clinical correlation isessential. Performed By: #### L 500.2500 ####[facility] [address] [place], [address] EST GFR - AA 33 mL/min Low >60 [facility] Comment on above: Result Comment: Afri can Montserratian GFR Calc Performed By: #### L 500.2500 ####[facility] [address] [place], [address] GAP 9 Normal 5-15 [facility] Comment on above: Performed By: #### L 500.2500 ####[facility] [address] [place], [address] GFR/1.73 sq M.predicted among non-blacks MDRD (S/P/Bld) [Vol rate/Area] 27 mL/min/{1.73_m2} Low >60 [facility] Comment on above: Result Comment: Non- GFR Calc Performed By: #### L 500.2500 ####[facility] [address] [place], [address] Glucose [Mass/Vol] 119 mg/dL High 74-106 [facility] Comment on above: Result Comment: Fast ing Glucose result from 100 to 125 mg/dLsuggests IMPAIRED HOMEOSTASIS per A.D.A. criteria. Performed By: #### L 500.2500 ####[facility] [address] [place], [address] Potassium [Moles/Vol] 3.8 mmol/L Normal 3.5-5.1 [facility] Comment on above: Performed By: #### L 500.2500 ####[facility] [address] [place], [address] Sodium [Moles/Vol] 138 mmol/L Normal 136-145 [facility] Comment on above: Performed By: #### L 500.2500 ####[facility] [address] [place], [address] Urea nitrogen [Mass/Vol] 34 mg/dL High 7-18 [facility] Comment on above: Performed By: #### L 500.2500 ####[facility] [address] [place], [address] 36on 12-18-2023 36 I can not make any changes or cx the No Show b/c it's past. [facility] 3612-16-2023 36 Name of caller: Brianne Contact phone number: [phone] Relationship to Patient: patient Provider: Mónica VOGEL Practice: [facility] Chief Complaint/Reason for Call: Patient had [...] business hours to return their call: N/A [facility] 36on 12-15-2023 36 Lab order faxed to [place] [facility] [phone]/Confir med [facility] 36on 12-14-2023 36 Per Teofilo David DNP, will get BMP done on 12/19/23 in [place], RX for Prednisone pended. [place] to fax lab order to [facility], pt notified via phone and verbalizes understanding. [facility] 36on 12-13-2023 36 Pt returned my call, no further issues w/ itching/hives from contrast allergy. I reviewed need for BMP and Prednisone before TAVR. Of note, pt was unaware of any renal insufficiency in the past. Will discuss timing of BMP w/ Teofilo David DNP. [facility] 36 Per Teoflio David DNP, pt had allergic reaction to CTA contrast yesterday, and pt with increase in Creat. Plan for Dye Allergy Prep meds will be needed, and repeat BMP. I left vm message for pt to return call. [facility] BLOOD TYPE AND SCREEN GELon 12-12-2023 ABO GROUPING O Normal [facility] Comment on above: Performed By: #### L [id number] ####Social Media Assistant: AIDE RUEDA ([phone])[facility] BLOOD [employer] [facility] ([facility])[address] [place] [address] RH TYPE IN BLOOD Positive Normal [facility] Comment on above: Performed By: #### L [id number] ####Social Media Assistant: AIDE RUEDA ([phone])[facility] ([facility])[address] [place] [address] Blood type and Crossmatch pa justin (Bld)on 12-12-2023 ABO group Nom (Bld) O [facility] Blood group antibody screen GEL Ql Negative [facility] D Ag Ql (RBC) Positive [facility] CBC W Auto Differential pane l (Bld)on 12-12-2023 Basophils (Bld) [#/Vol] 0.1 10*3/uL 0.0 - 0.2 10*3/uL [facility] Basophils/100 WBC (Bld) 1.3 % 0.0 - 2.0 % [facility] Eosinophils (Bld) [#/Vol] 0.1 10*3/uL 0.0 - 0.5 10*3/uL [facility] Eosinophils/100 WBC (Bld) 2.0 % 0.0 - 6.0 % [facility] Erythrocyte distribution width (RBC) [Ratio] 13.1 % 11.5 - 15.0 % [facility] Hematocrit (Bld) [Volume fraction] 48.1 % High 35.0 - 47.0 % [facility] Hemoglobin (Bld) [Mass/Vol] 16.0 g/dL 11.7 - 16.0 g/dL [facility] Immature granulocytes (Bld) [#/Vol] 0.1 10*3/uL High NINF - 0.1 10*3/uL [facility] Immature granulocytes/100 WBC (Bld) 0.7 % 0.0 - 2.0 % [facility] Interpretation and review of laboratory results Abnormal [facility] Lymphocytes (Bld) [#/Vol] 1.6 10*3/uL 1.0 - 4.3 10*3/uL [facility] Lymphocytes/100 WBC (Bld) 23.0 % 15.0 - 45.0 % [facility] MCH (RBC) [Entitic mass] 31.7 pg 26.0 - 34.0 pg [facility] MCHC (RBC) [Mass/Vol] 33.3 % 30.5 - 36.0 % [facility] MCV (RBC) [Entitic vol] 95.2 fL 77.0 - 99.0 fL [facility] Monocytes (Bld) [#/Vol] 1.0 10*3/uL High 0.0 - 0.9 10*3/uL [facility] Monocytes/100 WBC (Bld) 14.2 % High 5.0 - 13.0 % [facility] Neutrophils (Bld) [#/Vol] 4.0 10*3/uL 1.8 - 7.5 10*3/uL [facility] Neutrophils/100 WBC (Bld) 58.8 % 38.0 - 82.0 % [facility] Nucleated RBC/100 WBC (Bld) [Ratio] 0.0 % [facility] Platelet mean volume (Bld) [Entitic vol] 13.0 fL High 9.0 - 12.7 fL [facility] Platelets (Bld) [#/Vol] 194 10*3/uL 140 - 440 10*3/uL [facility] RBC (Bld) [#/Vol] 5.05 10*6/uL 3.80 - 5.2 0 10*6/uL [facility] WBC (Bld) [#/Vol] 6.9 10*3/uL 3.6 - 10.7 10*3/uL [facility] CBC WITH AUTO DIFFERENTIALon 12-12-2023 Basophils (Bld) [#/Vol] 0.1 10*3/uL Normal 0.0-0.2 [facility] Comment on above: Performed By: #### L [id number] ####Social Media Assistant: AIDE RUEDA ([phone])[facility])[address] [place] [address] Basophils/100 WBC (Bld) 1.3 % Normal 0.0-2.0 [facility] Comment on above: Performed By: #### L [id number] ####Social Media Assistant: AIDE RUEDA ([phone])[facility])[address] [place] [address] Eosinophils (Bld) [#/Vol] 0.1 10*3/uL Normal 0.0-0.5 [facility] Comment on above: Performed By: #### L [id number] ####Social Media Assistant: AIDE RUEDA ([phone])[facility])[address] [place] [address] Eosinophils/100 WBC (Bld) 2.0 % Normal 0.0-6.0 [facility] Comment on above: Performed By: #### L [id number] ####Social Media Assistant: AIDE RUEDA ([phone])[facility])[address] [place] [address] Erythrocyte distribution width (RBC) [Ratio] 13.1 % Normal 11.5-15.0 [facility] Comment on above: Performed By: #### L [id number] ####Social Media Assistant: AIDE RUEDA ([phone])[facility])[address] [place] [address] Hematocrit (Bld) [Volume fraction] 48.1 % High 35.0-47.0 [facility] Comment on above: Performed By: #### L [id number] ####Social Media Assistant: AIDE RUEDA ([phone])[facility])[address] [place] [address] Hemoglobin (Bld) [Mass/Vol] 16.0 g/dL Normal 11.7-16.0 [facility] Comment on above: Performed By: #### L [id number] ####Social Media Assistant: AIDE RUEDA ([phone])[facility])[address] [place] [address] IMMATURE GRANS % 0.7 % Normal 0.0-2.0 [facility] Comment on above: Performed By: #### L [id number] ####Social Media Assistant: AIDE RUEDA ([phone])[facility])[address] [place] [address] IMMATURE GRANS ABSOLUTE 0.1 10*3/uL High <0.1 [facility] Comment on above: Performed By: #### L [id number] ####Social Media Assistant: AIDE RUEDA ([phone])[facility])[address] [place] [address] Lymphocytes (Bld) [#/Vol] 1.6 10*3/uL Normal 1.0-4.3 [facility] Comment on above: Performed By: #### L [id number] ####Social Media Assistant: AIDE RUEDA ([phone])[facility])[address] [place] [address] Lymphocytes/100 WBC (Bld) 23.0 % Normal 15.0-45.0 [facility] Comment on above: Performed By: #### L [id number] ####Social Media Assistant: AIDE RUEDA ([phone])[facility] [address] MCH (RBC) [Entitic mass] 31.7 pg Normal 26.0-34.0 [facility] Comment on above: Performed By: #### L [id number] ####Social Media Assistant: AIDE RUEDA ([phone])[facility])[address] [place] [address] MCHC 33.3 % Normal 30.5-36.0 [facility] Comment on above: Performed By: #### L [id number] ####Social Media Assistant: AIDE RUEDA ([phone])[facility])[address] [place] [address] MCV (RBC) [Entitic vol] 95.2 fL Normal 77.0-99.0 S [facility] Comment on above: Performed By: #### L [id number] ####Social Media Assistant: AIDE RUEDA ([phone])[facility])[address] [place] [address] Monocytes (Bld) [#/Vol] 1.0 10*3/uL High 0.0-0.9 [facility] Comment on above: Performed By: #### L [id number] ####Social Media Assistant: AIDE RUEDA ([phone])[facility])[address] [place] [address] Monocytes/100 WBC (Bld) 14.2 % High 5.0-13.0 S [facility] Comment on above: Performed By: #### L [id number] ####Social Media Assistant: AIDE RUEDA ([phone])[facility])[address] [place] [address] NEUTROPHILS ABSOLUTE 4.0 10*3/uL Normal 1.8-7.5 [facility] Comment on above: Performed By: #### L [id number] ####Social Media Assistant: AIDE RUEDA ([phone])[facility])[address] [place] [address] Neutrophils/100 WBC (Bld) 58.8 % Normal 38.0-82.0 [facility] Comment on above: Performed By: #### L [id number] ####Social Media Assistant: AIDE RUEDA ([phone])[facility])[address] [place] [address] NRBC 0.0 /100 WBCs Normal 0.0-2.0 [facility] Comment on above: Performed By: #### L [id number] ####Social Media Assistant: AIDE RUEDA ([phone])[facility] ([facility])[address] [place] [address] Platelet mean volume (Bld) [Entitic vol] 13.0 fL High 9.0-12.7 [facility] Comment on above: Performed By: #### L [id number] ####Social Media Assistant: AIDE RUEDA ([phone])[facility] ([facility])[address] [place] [address] Platelets (Bld) [#/Vol] 194 10*3/uL Normal 140-440 [facility] Comment on above: Performed By: #### L [id number] ####Social Media Assistant: AIDE RUEDA ([phone])[facility] ([facility])[address] [place] [address] RBC (Bld) [#/Vol] 5.05 10*6/uL Normal 3.80-5.20 [facility] Comment on above: Performed By: #### L [id number] ####Social Media Assistant: AIDE RUEDA ([phone])[facility] ([facility])[address] [place] [address] WBC (Bld) [#/Vol] 6.9 10*3/uL Normal 3.6-10.7 [facility] Comment on above: Performed By: #### L [id number] ####Social Media Assistant: AIDE RUEDA ([phone])[facility])[address] [place] [address] COMPREHENSIVE METABOLIC PANE [place] 12-12-2023 Albumin [Mass/Vol] 4.1 g/dL Normal 3.5-5.0 [facility] Comment on above: Performed By: #### L AB106, LAB17 ####Social Media Assistant: AIDE RUEDA ([phone])[facility] ([facility])[address] [place] [address] ALP [Catalytic activity/Vol] 70 U/L Normal 38-126 [facility] Comment on above: Performed By: #### L AB106, LAB17 ####Social Media Assistant: AIDE RUEDA ([phone])[facility] ([facility])[address] [place] [address] ALT [Catalytic activity/Vol] 18 U/L Normal 0-34 [facility] Comment on above: Performed By: #### L AB106, LAB17 ####Social Media Assistant: AIDE RUEDA ([phone])[facility] ([facility])[address] [place] [address] Anion gap [Moles/Vol] 11 mmol/L Normal 3-13 [facility] Comment on above: Performed By: #### L AB106, LAB17 ####Social Media Assistant: AIDE RUEDA ([phone])[facility] ([facility])[address] [place] [address] AST [Catalytic activity/Vol] 52 U/L High 15-46 [facility] Comment on above: Performed By: #### L AB106, LAB17 ####Social Media Assistant: ADIE RUEDA ([phone])[facility] ([facility])[address] [place] [address] Bilirubin [Mass/Vol] 1.0 mg/dL Normal 0.2-1.3 [facility] Comment on above: Performed By: #### L AB106, LAB17 ####Social Media Assistant: AIDE RUEDA ([phone])[facility])[address] [place] [address] Calcium [Mass/Vol] 9.3 mg/dL Normal 8.4-10.4 [facility] Comment on above: Performed By: #### L AB106, LAB17 ####Social Media Assistant: AIDE RUEDA ([phone])[facility])[address] [place] [address] Chloride [Moles/Vol] 103 mmol/L Normal 98-107 [facility] Comment on above: Performed By: #### L AB106, LAB17 ####Social Media Assistant: AIDE RUEDA ([phone])[facility])[address] [place] [address] CO2 [Moles/Vol] 22 mmol/L Normal 22-30 [facility] Comment on above: Performed By: #### L AB106, LAB17 ####Social Media Assistant: AIDE RUEDA ([phone])[facility])[address] [place] [address] Creatinine [Mass/Vol] 1.95 mg/dL High 0.52-1.04 [facility] [place] [facility] Comment on above: Performed By: #### L AB106, LAB17 ####Social Media Assistant: AIDE RUEDA ([phone])[facility])[address] [place] [address] GLOMERULAR FILTRATION RATE ML/MIN/1.73 SQ M.PREDICTED 25.1 mL/min/1.73m*2 Low >60.0 [facility] Comment on above: Result Comment: Calc ulation based on the Chronic Kidney Disease Epidemiology Collaboration (CKD-EPI) equation refit without adjustment for race ORDER COMMENTS: Slightly Hemolyzed. Interpret Potassium, Alkaline Phosphatase, and AST with caution. Performed By: #### L AB106, LAB17 ####Social Media Assistant: AIDE RUEDA ([phone])[facility])[address] [place] [address] [place] Glucose [Mass/Vol] 107 mg/dL High 70-100 [facility] Comment on above: Performed By: #### L AB106, LAB17 ####Social Media Assistant: AIDE RUEDA ([phone])[facility])[address] [place] [address] Potassium [Moles/Vol] 4.3 mmol/L Normal 3.5-5.1 [facility] [place] [facility] Comment on above: Performed By: #### L AB106, LAB17 ####Social Media Assistant: AIDE RUEDA ([phone])[facility] ([facility])[address] [place] [address] Protein [Mass/Vol] 7.9 g/dL Normal 6.3-8.2 [facility] Comment on above: Performed By: #### L AB106, LAB17 ####Social Media Assistant: AIDE RUEDA ([phone])[facility] ([facility])[address] [place] [address] Sodium [Moles/Vol] 136 mmol/L Normal 135-145 [facility] Comment on above: Performed By: #### L AB106, LAB17 ####Social Media Assistant: AIDE RUEDA ([phone])[facility] ([facility])[address] [place] [address] Urea nitrogen [Mass/Vol] 36 mg/dL High 7-17 [facility] Comment on above: Performed By: #### L AB106, LAB17 ####Social Media Assistant: AIDE REUDA ([phone])[facility] ([facility])[address] [place] [address] Comprehensive metabolic 1998 panelon 12-12-2023 Albumin [Mass/Vol] 4.1 g/dL 3.5 - 5.0 g/dL [facility] ALP [Catalytic activity/Vol] 70 U/L 38 - 126 U/L [facility] ALT [Catalytic activity/Vol] 18 U/L 0 - 34 U/L [facility] Anion gap [Moles/Vol] 11 mmol/L 3 - 13 mmol/L [facility] AST [Catalytic activity/Vol] 52 U/L High 15 - 46 U/L [facility] Bilirubin [Mass/Vol] 1.0 mg/dL 0.2 - 1 .3 mg/dL [facility] Calcium [Mass/Vol] 9.3 mg/dL 8.4 - 10. 4 mg/dL [facility] Chloride [Moles/Vol] 103 mmol/L 98 - 10 7 mmol/L [facility] CO2 [Moles/Vol] 22 mmol/L 22 - 30 mmol/L [facility] Creatinine [Mass/Vol] 1.95 mg/dL High 0.52 - 1.04 mg/dL [facility] Bottle GFR/1.73 sq M.predicted (S/P/Bld) [Vol rate/Area] 25.1 mL/min Low - PINF [facility] Comment on above: Calculation based on the Chronic Kidney Disease Epidemiology Collaboration (CKD-EPI) equation refit without adjustment for race Glucose [Mass/Vol] 107 mg/dL High 70 - 100 mg/dL [facility] Interpretation and review of laboratory results Abnormal [facility] Potassium [Moles/Vol] 4.3 mmol/L 3.5 - 5.1 mmol/L [facility] Protein [Mass/Vol] 7.9 g/dL 6.3 - 8.2 g/dL [facility] Sodium [Moles/Vol] 136 mmol/L 135 - 145 mmol/L [facility] Urea nitrogen [Mass/Vol] 36 mg/dL High 7 - 17 mg/dL [facility] Bottle Slightly Hemolyzed. Interpret Potassium, Alkaline Phosphatase, and AST with caution. [facility] NT PRO BNPon 12-12-2023 Natriuretic peptide B (Bld) [Mass/Vol] 2261 pg/mL High <450 [facility] Comment on above: Performed By: #### L AB106, LAB17 ####Social Media Assistant: AIDE RUEDA ([phone])[facility] ([address] Natriuretic peptide B [Mass/ Vol]Ordered By: Bob Flores on 12-12-2023 Interpretation and review of laboratory results Abnormal [facility] Natriuretic peptide B (Bld) [Mass/Vol] 2261 pg/mL High NINF - 450 pg/mL [facility] Office Visiton 12-12-2023 Follow-up visit [id number] Brianne Call 1940 F Date Provider Department Center 12/12/2023 46505-BPGYIAMÓNICA DAVID [facility] [address] No family history on file Level of Service:63925 [place] OFFICE/OUTPATIENT ESTABLISHED MOD MDM 30 MIN Reason for Visit and Comments: Cardiac Valve Problem [1334] - Patient seen in private OP procedure area for H + P update and education prior to scheduled TAVR Normal [facility] Progress Noteon 12-12-2023 Progress Note Pts symptoms of the reaction have all gone away. Pt states she feels back to normal. Normal [facility] Progress Note [facility] - [place] [address] [facility] [address] Dept: [phone] Dept Visit type: Established : 1940 Reason [...] mm Hg. She underwent cardiac cath at [place] which showed non obstructive CAD. He kidney [...] mg IntraVENous Once Mónica David APRN - MEDICAL ASSISTANT SECRETARY sodium chloride 0.9 % bolus 500 mL [...] D deficiency Social (more content not included)... [address] 12-08-2023 Approved [id number] 12/24-12/26/23 Calendars and Snapboard updated. [place] [address] Messaged central scheduling through secure chat and CTA TAVR scheduled at [facility] at [address] 12-07-2023 36 B. Labut RT is out of office until Mon12/11/23. I spoke w/ [facility] Radiology Dept, I was sent to a "dining service supervisor" , I left message re: add on CTA @ [facility] for 12/11. [place] [address] I spoke w/ Katherin in CS, re: [place] IV hydration, having difficulty with adding pt, she will speak w/ coworker and call me back. I spoke w/ Jennifer RN in [place], they have pt on their schedule. I spoke w/ patient, reviewed NPO 4 hrs prior, all questions answered. I also spoke w/ Rossana in [place], CTA needs moved to [facility]. [address] 12-06-2023 36 Hydration orders faxed,confirmed and scanned under Media Submitted auth request on [facility]. Pending # [id number] On all 3 s. [place] [address] I spoke w/ pt and dtr Shama re: need for POP/IV hydration for CTA. I spoke w/ Hiwot in [place], they can accommodate pt on 12/11 @ 7. 8 hr IV hydration orders and pre op TAVR lab/CXR orders given to [place] to fax. I called Radha Alvarado in [place] to arrange CTA, she will call me back to arrange CTA & once IV hydration orders are scanned. Agrees to TAVR date of 12/25/23 @ 9:15, [facility] notified to schedule/PA/snap board/calendars. Normal [facility] 36 Patient returned my call. No issues with Right radial cath site, cath performed by Dr. Garces in [place], I called to have images pushed to PACS and fax report w/ recent labs. Labs reviewed from [place], drawn 11/28/23 GFR 31 prior to cath. Teofilo Velez CNP notified to review and advise if IV hydration is needed. Normal [facility] 36 I spoke w/ Medina in Dr. Garces's office, confirmed LHC completed, she will push images to PACS and fax report & lab results. I left vm message for dtr Shama to review pt status, discuss next steps BMP/CTA. [facility] 36on 12-05-2023 36 Chart note done. I faxed it and the EKG tracings to [phone]/[facility] [address] Dr. Huffman verbally notified. [facility] 36 Medina from [facility] called requesting last OV note but PB has not finished yet. (11/22/23) [phone] [phone] They need the most recent EKG wave forms as well. [facility] Cardiac Cath [employer] Cardiac Cath Diagnostic Normal [facility] 36on 11-28-2023 36 Spoke w/ Juana @ [facility], cath scheduled for 12/04/23 w/ Dr. Garces. [facility] Basic Metabolic Profile (BMP )on 11-28-2023 BUN/CRE 21.1 RATIO High 10-20 [facility] Comment on above: Order Comment: for h eart cath Performed By: #### L 500.2500, L300.4310, L100.0100, L300.3900 ####[facility] [address] [place], [address] CA,Total 9.5 mg/dL Normal 8.5-10.1 [facility] Comment on above: Order Comment: for h eart cath Performed By: #### L 500.2500, L300.4310, L100.0100, L300.3900 ####[facility] [address] [place], [address] Chloride [Moles/Vol] 103 mmol/L Normal 98-107 [facility] Comment on above: Order Comment: for h eart cath Performed By: #### L 500.2500, L300.4310, L100.0100, L300.3900 ####[facility] [address] [place], [address] CO2 [Moles/Vol] 27.0 mmol/L Normal 21.0-32.0 [facility] Comment on above: Order Comment: for h eart cath Performed By: #### L 500.2500, L300.4310, L100.0100, L300.3900 ####[facility] [address] [place], [address] Creatinine [Mass/Vol] 1.66 mg/dL High 0.55-1.02 [facility] Comment on above: Order Comment: for h eart cath Result Comment: The validity of the calculated GFR GFRAA in patients over70 years has not been determined. Clinical correlation isessential. Performed By: #### L 500.2500, L300.4310, L100.0100, L300.3900 ####[facility] [address] [place], [address] EST GFR - AA 38 mL/min Low >60 [facility] Comment on above: Order Comment: for h eart cath Result Comment: Afri can Montserratian GFR Calc Performed By: #### L 500.2500, L300.4310, L100.0100, L300.3900 ####[facility] [address] [place], [address] GAP 7 Normal 5-15 [facility] Comment on above: Order Comment: for h eart cath Performed By: #### L 500.2500, L300.4310, L100.0100, L300.3900 ####[facility] [address] [place], [address] GFR/1.73 sq M.predicted among non-blacks MDRD (S/P/Bld) [Vol rate/Area] 31 mL/min/{1.73_m2} Low >60 [facility] Comment on above: Order Comment: for h eart cath Result Comment: Non- GFR Calc Performed By: #### L 500.2500, L300.4310, L100.0100, L300.3900 ####[facility] [address] [place], [address] Glucose [Mass/Vol] 128 mg/dL High 74-106 [facility] Comment on above: Order Comment: for h eart cath Result Comment: Fast ing Glucose result greater than or equal to 126 mg/dLsuggests DIABETES MELLITUS per A.D.A. criteria. Performed By: #### L 500.2500, L300.4310, L100.0100, L300.3900 ####[facility] [address] [place], [address] Potassium [Moles/Vol] 3.8 mmol/L Normal 3.5-5.1 [facility] Comment on above: Order Comment: for h eart cath Performed By: #### L 500.2500, L300.4310, L100.0100, L300.3900 ####[facility] [address] [place], [address] Sodium [Moles/Vol] 137 mmol/L Normal 136-145 [facility] Comment on above: Order Comment: for h eart cath Performed By: #### L 500.2500, L300.4310, L100.0100, L300.3900 ####[facility] [address] [place], [address] Urea nitrogen [Mass/Vol] 35 mg/dL High 7-18 [facility] Comment on above: Order Comment: for h eart cath Performed By: #### L 500.2500, L300.4310, L100.0100, L300.3900 ####[facility] [address] [place], [address] CBC W/Diff, Automatedon 09- 0-2024 Absolute Lymph 1.45 X10 3/uL Normal 0.83-4.51 [facility] Comment on above: Order Comment: Comme nts: For heart cath Performed By: #### L 500.2500, L300.4310, L100.0100, L300.3900 ####[facility] [address] [place], [address] Absolute Neut 3.9 X10 3/uL Normal 2.0-7.7 [facility] Comment on above: Order Comment: Comme nts: For heart cath Performed By: #### L 500.2500, L300.4310, L100.0100, L300.3900 ####[facility] [address] [place], [address] Basophils/100 WBC (Bld) 1.1 % High 0-1 [facility] Comment on above: Order Comment: Comme nts: For heart cath Performed By: #### L 500.2500, L300.4310, L100.0100, L300.3900 ####[facility] [address] [place], [address] Eosinophils/100 WBC (Bld) 1.4 % Normal 0-5 [facility] Comment on above: Order Comment: Comme nts: For heart cath Performed By: #### L 500.2500, L300.4310, L100.0100, L300.3900 ####[facility] [address] [place], [address] Erythrocyte distribution width (RBC) [Ratio] 12.6 % Normal 11.6-14.6 [facility] Comment on above: Order Comment: Comme nts: For heart cath Performed By: #### L 500.2500, L300.4310, L100.0100, L300.3900 ####[facility] [address] [place], [address] Hematocrit (Bld) [Volume fraction] 50.3 % High 37-47 [facility] Comment on above: Order Comment: Comme nts: For heart cath Performed By: #### L 500.2500, L300.4310, L100.0100, L300.3900 ####[facility] [address] [place], [address] Hemoglobin (Bld) [Mass/Vol] 16.2 g/dL High 12.0-15.0 [facility] Comment on above: Order Comment: Comme nts: For heart cath Performed By: #### L 500.2500, L300.4310, L100.0100, L300.3900 ####[facility] [address] [place], [address] IG% 0.300 Normal 0.0-0.9 [facility] Comment on above: Order Comment: Comme nts: For heart cath Result Comment: IG% - Immature Granulocytes (promyelocytes, myelocytes andmetamyelocytes) > 1% indicates that a LEFT SHIFT is Present. Performed By: #### L 500.2500, L300.4310, L100.0100, L300.3900 ####[facility] [address] [place], [address] Lymphocytes/100 WBC (Bld) 22.9 % Normal 19-41 [facility] Comment on above: Order Comment: Comme nts: For heart cath Performed By: #### L 500.2500, L300.4310, L100.0100, L300.3900 ####[facility] [address] [place], [address] MCH (RBC) [Entitic mass] 31.3 pg Normal 27.0-32.0 [facility] Comment on above: Order Comment: Comme nts: For heart cath Performed By: #### L 500.2500, L300.4310, L100.0100, L300.3900 ####[facility] [address] [place], [address] MCHC (RBC) [Mass/Vol] 32.2 g/dL Normal 32-36 [facility] Comment on above: Order Comment: Comme nts: For heart cath Performed By: #### L 500.2500, L300.4310, L100.0100, L300.3900 ####[facility] [address] [place], [address] MCV (RBC) [Entitic vol] 97.3 fL Normal 81-99 [facility] Comment on above: Order Comment: Comme nts: For heart cath Performed By: #### L 500.2500, L300.4310, L100.0100, L300.3900 ####[facility] [address] [place], [address] Monocytes/100 WBC (Bld) 12.2 % High 0-10 [facility] Comment on above: Order Comment: Comme nts: For heart cath Performed By: #### L 500.2500, L300.4310, L100.0100, L300.3900 ####[facility] [address] [place], [address] Neutrophils/100 WBC (Bld) 62.1 % Normal 47-70 [facility] Comment on above: Order Comment: Comme nts: For heart cath Performed By: #### L 500.2500, L300.4310, L100.0100, L300.3900 ####[facility] [address] [place], [address] Nucleated RBC (Bld) [#/Vol] 0 10*3/uL Normal 0-5 [facility] Comment on above: Order Comment: Comme nts: For heart cath Performed By: #### L 500.2500, L300.4310, L100.0100, L300.3900 ####[facility] [address] [place], [address] Platelet mean volume (Bld) [Entitic vol] 12.7 fL High 6.2-12.0 [facility] Comment on above: Order Comment: Comme nts: For heart cath Performed By: #### L 500.2500, L300.4310, L100.0100, L300.3900 ####[facility] [address] [place], [address] Platelets (Bld) [#/Vol] 191 10*3/uL Normal 150-450 [facility] Comment on above: Order Comment: Comme nts: For heart cath Performed By: #### L 500.2500, L300.4310, L100.0100, L300.3900 ####[facility] [address] [place], [address] RBC (Bld) [#/Vol] 5.17 10*6/uL Normal 4.2-5.4 [facility] Comment on above: Order Comment: Comme nts: For heart cath Performed By: #### L 500.2500, L300.4310, L100.0100, L300.3900 ####[facility] [address] [place], [address] RDW SD 45.3 fl High 35.1-43.9 [facility] Comment on above: Order Comment: Comme nts: For heart cath Performed By: #### L 500.2500, L300.4310, L100.0100, L300.3900 ####[facility] [address] [place], [address] WBC (Bld) [#/Vol] 6.3 10*3/uL Normal 4.4-11.0 [facility] Comment on above: Order Comment: Comme nts: For heart cath Performed By: #### L 500.2500, L300.4310, L100.0100, L300.3900 ####[facility] [address] [place], [address] Partial Thromboplast Timeon 11-28-2023 aPTT Coag (Bld) [Time] 28.7 s Normal 24.1-36.2 [facility] Comment on above: Order Comment: Comme nts: for heart cath Performed By: #### L 500.2500, L300.4310, L100.0100, L300.3900 ####[facility] [address] [place], [address] Prothrombin Time w/INRon INR Coag (PPP) [Relative time] 1.6 {INR} Normal [facility] Comment on above: Order Comment: Comme nts: for heart cath Performed By: #### L 500.2500, L300.4310, L100.0100, L300.3900 ####[facility] [address] [place], [address] PT Coag (PPP) [Time] 18.7 s High 11.7-14.9 [facility] Comment on above: Order Comment: Comme nts: for heart cath Performed By: #### L 500.2500, L300.4310, L100.0100, L300.3900 ####[facility] [address] [place], [address] ECG 12 lead - CLINIC PERFORM EDon 11-25-2023 Atrial fibrillation -Old anteroseptal infarct. -Diffuse nonspecific T-abnormality. ABNORMAL [facility] 36on 11-22-2023 36 Patient seen in Heart valve Clinic yesterday. Dr. Huffman spoke w/ Dr. Garces @ [facility], agreed for R/LHC to be done in [place]. I spoke w/ Maggie HACKETT in Dr. Garces' office, asked her to call me back with cath date. Need to expedite TAVR due to pt symptoms, will need to coordinate CTA, pt does have CKD, last creat was 1.38 done 08/10 scanned in media. Normal [facility] Office Visiton 11-21-2023 Follow-up visit [id number] Brianne Call 1940 F Date Provider Department Center 11/21/2023 86424-GBJKX THADDEUS [facility] [address] No family history on file Level of Service:59794 [place] OFFICE/OUTPATIENT NEW MODERATE MDM 45 MINUTES Reason for Visit and Comments: Shortness of Breath [133514] Normal [facility] Follow-up visit [id number] Brianne Call 1940 F Date Provider Department Center 11/21/2023 45043-ATFEIS JUAN [facility] [address] No family history on file Level of Service:09001 [place] OFFICE/OUTPATIENT NEW HIGH MDM 60 MINUTES Reason for Visit and Comments: Cardiac Valve Problem [1334] Normal [facility] Follow-up visit [id number] Brianne Call 1940 F Date Provider Department Center 11/21/2023 50006-RECHCAQXEGPOHARJEET [facility] [address] No family history on file Level of Service:95570 [place] OFFICE/OUTPATIENT NEW HIGH MDM 60 MINUTES Reason for Visit and Comments: Cardiac Valve Problem [1334] Normal [facility] PATINSon 11-21-2023 PATI GERIATRICS DISCHARGE INSTRUCTIONS: Follow-up with [facility] (phone: [phone] fax: [phone]) as needed for memory testing. Please BEGIN [...] age and increased risk of falls. Normal [facility] Progress Noteon 11-21-2023 Progress Note [facility] [address] [facility] [address] Dept: [phone] Dept Loc: [phone] Today's Visit Location: TAVR (transcather aortic valve replacement) Clinic [facility] [address] [place] [address] Visit type: Senior Health Assessment at TAVR (transcather aortic valve replacement) Clinic Visit Date: 11/21/2023 Reason for Visit: Shortness of Breath Assessment and Plan 1. Nonrheumatic aortic valve stenosis Assessment & Plan: S/p AV replacement by Dr. Nagy in 201209/22/23 Transthoracic Echo (TTE) noted severe aortic stenosis". Mean Gradient of 49. Dr. Garces in . No aortic valve area mentioned. I agree with cardiology plan as discussed with steam fitter supervisor maintenance Dr. Huffman and CTS Dr. Reed on [...] Patient has already named her Power of Department Administrator for Healthcare and Finances (Both are her daughter Shama López) I recommended patient follow-up with [facility] (phone: [phone] fax: [phone]) as needed for memory testing. 4. Drug-induced [...] 2020->30% on 09/22/23 Transthoracic Echo (TTE) noted "severe aortic stenosis". Mean Gradient of 49. Dr. Garces in [place]. No aortic valve area mentioned. A fib [...] no=0 points)0 - patient rents room from [facility]. Rajiv (son) lives w pt Reduce [...] pandemic. Revi (more content not included)... Normal [facility] Progress Note HR 58 bpm today but no syncope, presyncope, falls Patient asymptomatic today Patient taking lopressor 12.5mg po bid - I encouraged patient to discuss with her cardiologists/PCP (primary care provider) regarding change of meds given her advanced age and increased risk of falls Normal [facility] Progress Note [facility]: Cardiothoracic Surgery Multidisciplinary Heart Valve Clinic Date: 11/21/23 Patient:Brianne Kaufmangautam 1940 83 y.o. female [id number] Subjective: HPI: Brianne Wells [place] [address] Garces is being evaluated for aortic valve stenosis. Echocardiogram completed on 09/22/2023 showed severe bioprosthetic aortic valve stenosis with peak/mean gradients 71/49 mm Hg. Per note, pt has PMH significant for permanent afib, aortic valve disease s/p replacement with a #25 [employer] bioprosthetic valve in 2013 and HTN. Pt saw Cardiology on 11/08/23 [...] Psychiatric/Behavior al: Negative for dysphoric mood. Allergies: Landno inhibitors, Lisinopril, Sacubitril, and Valsartan Past Medical [...] Cuff Size: Adult) Pulse 58 Ht 5' 2" (1.575 m) Wt 235 lb 14.3 oz (107 kg) SpO2 98% BMI 43.15 kg/m? Physical Exam Vitals: BP 136/82 (BP Location: Left arm, Patient Position: Sitting, BP Cuff Size: Adult) Pulse 58 Ht 5' 2" (1.575 m) Wt 235 lb 14.3 oz [...] reactive b (more content not included)... Normal [facility] Progress Note Chronic Patient with occasional word-finding difficulties I suspect either normal memory loss for aging or possibly MCI (Mild Cognitive Impairment) Patient has already named her Power of Department Administrator for Healthcare and Finances (Both are her daughter Shama López) I recommended patient follow-up with [facility] (phone: [phone] fax: [phone]) as needed for memory testing. Normal [facility] Progress Note Chronic; Stable Asymptomatic May be nearing renal (kidney) dysfunction requiring reduced dose of eliquis (given Cr nearly 1.5 in past and patient's age >80 yo). May need eliquis 2.5mg po bid instead of 5mg po bid in future pending renal (kidney) function Normal [facility] Progress Note meds reviewed; appropriate May be [...] missing or doubling up on meds Normal [facility] Progress Note S/p AV replacement by Dr. Nagy in 201209/22/23 Transthoracic Echo (TTE) noted severe aortic stenosis". Mean Gradient of 49. Dr. Garces in . No aortic valve area mentioned. I agree with cardiology plan as discussed with steam fitter supervisor maintenance Dr. Huffman and CTS Dr. Reed on same date regarding next steps for further workup/treatment of cardiac disease which likely includes heart cath +/- TAVR. On this date of evaluation, the patient has sufficient understanding of procedure(s) to consent to the procedure(s) being discussed and has adequate social support(s). Normal [facility] Progress Note [facility] CARDIOLOGY [address] [facility] [address] Dept: [phone] Dept Visit type: New : 1940 Reason for Visit: Cardiac Valve Problem Assessment and Plan 1. LV dysfunction 2. Stenosis of prosthetic aortic valve, initial encounter - ECG 12 lead - CLINIC PERFORMED This is a very pleasant 83 y.o. 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 she is clearly in need of aortic valve replacement, likely ofeug-lh-usfui TAVR. Will need a diagnostic cath first, [...] up for Recheck on cath complete. Sonya Call is a very pleasant 83 y.o. [...] lb 12.8 oz (107 kg) Height: 5' 2" (1.575 m) Physical Exam Constitutional: General: She [...] Effort: Pulmonary (more content not included)... Normal [facility] Progress Noteon 11-17-2023 Progress Note Brianne Call 83 [address] [...] thinner - Eliquis Transthoracic Echocardiogram 09/22/2023 Normal [facility] BNP,B-Type NATRIURETIC PEPTI Delroy 11-09-2023 Natriuretic peptide B (Bld) [Mass/Vol] 330.1 pg/mL High 0-100 [facility] Comment on above: Performed By: #### L 500.4100, L503.6620, L500.4050 ####[facility] [address] [place], [address] Comprehensive Metabolic Prof [facility] 11-09-2023 Albumin [Mass/Vol] 3.5 g/dL Normal 3.2-5.0 [facility] Comment on above: Performed By: #### L 500.4100, L503.6620, L500.4050 ####[facility] [address] [place], [address] Albumin/Globulin [Mass ratio] 0.9 {ratio} Normal 0.9-2.4 [facility] Comment on above: Performed By: #### L 500.4100, L503.6620, L500.4050 ####[facility] [address] [place], [address] ALK P 68 U/L Normal 45-117 [facility] Comment on above: Performed By: #### L 500.4100, L503.6620, L500.4050 ####[facility] [address] [place], [address] ALT [Catalytic activity/Vol] 18 U/L Normal 13-56 [facility] Comment on above: Performed By: #### L 500.4100, L503.6620, L500.4050 ####[facility] [address] [place], [address] AST [Catalytic activity/Vol] 25 U/L Normal 15-37 [facility] Comment on above: Result Comment: Slig ht Hemolysis, Result may be falsely increased. Performed By: #### L 500.4100, L503.6620, L500.4050 ####[facility] [address] [place], [address] Bilirubin [Mass/Vol] 1.10 mg/dL High 0.20-1.00 [facility] Comment on above: Result Comment: For patients on eltrombopag therapy, use of Dimension Holley TBIL is not recommended. Performed By: #### L 500.4100, L503.6620, L500.4050 ####[facility] [address] [place], [address] BUN/CRE 17.6 RATIO Normal 10-20 [facility] Comment on above: Performed By: #### L 500.4100, L503.6620, L500.4050 ####[facility] [address] [place], [address] CA,Total 8.8 mg/dL Normal 8.5-10.1 [facility] Comment on above: Performed By: #### L 500.4100, L503.6620, L500.4050 ####[facility] [address] [place], [address] Chloride [Moles/Vol] 104 mmol/L Normal 98-107 [facility] Comment on above: Performed By: #### L 500.4100, L503.6620, L500.4050 ####[facility] [address] [place], [address] CO2 [Moles/Vol] 24.0 mmol/L Normal 21.0-32.0 [facility] Comment on above: Performed By: #### L 500.4100, L503.6620, L500.4050 ####[facility] [address] [place], [address] Creatinine [Mass/Vol] 1.48 mg/dL High 0.55-1.02 [facility] Comment on above: Result Comment: The validity of the calculated GFR GFRAA in patients over70 years has not been determined. Clinical correlation isessential. Performed By: #### L 500.4100, L503.6620, L500.4050 ####[facility] [address] [place], [address] EST GFR - AA 43 mL/min Low >60 [facility] Comment on above: Result Comment: Afri can Montserratian GFR Calc Performed By: #### L 500.4100, L503.6620, L500.4050 ####[facility] [address] [place], [address] GAP 10 Normal 5-15 [facility] Comment on above: Performed By: #### L 500.4100, L503.6620, L500.4050 ####[facility] [address] [place], [address] GFR/1.73 sq M.predicted among non-blacks MDRD (S/P/Bld) [Vol rate/Area] 36 mL/min/{1.73_m2} Low >60 [facility] Comment on above: Result Comment: Non- GFR Calc Performed By: #### L 500.4100, L503.6620, L500.4050 ####[facility] [address] [place], [address] Globulin (S) [Mass/Vol] 3.9 g/dL Normal 2.2-4.2 [facility] Comment on above: Performed By: #### L 500.4100, L503.6620, L500.4050 ####[facility] [address] [place], [address] Glucose [Mass/Vol] 111 mg/dL High 74-106 [facility] Comment on above: Result Comment: Fast ing Glucose result from 100 to 125 mg/dLsuggests IMPAIRED HOMEOSTASIS per A.D.A. criteria. Performed By: #### L 500.4100, L503.6620, L500.4050 ####[facility] [address] [place], [address] Potassium [Moles/Vol] 4.3 mmol/L Normal 3.5-5.1 [facility] Comment on above: Result Comment: Slig ht Hemolysis, Result may be falsely increased. Performed By: #### L 500.4100, L503.6620, L500.4050 ####[facility] [address] [place], [address] Sodium [Moles/Vol] 138 mmol/L Normal 136-145 [facility] Comment on above: Performed By: #### L 500.4100, L503.6620, L500.4050 ####[facility] [address] [place], [address] T PROT 7.4 g/dL Normal 6.4-8.2 [facility] Comment on above: Performed By: #### L 500.4100, L503.6620, L500.4050 ####[facility] [address] [place], [address] Urea nitrogen [Mass/Vol] 26 mg/dL High 7-18 [facility] Comment on above: Performed By: #### L 500.4100, L503.6620, L500.4050 ####[facility] [address] [place], [address] Lipid Profileon 11-09-2023 Cholesterol [Mass/Vol] 175 mg/dL Normal 200 [facility] Comment on above: Result Comment: <200 mg/dL Desirable 200-240 mg/dL Borderline >240 mg/dL High Risk Performed By: #### L 500.4100, L503.6620, L500.4050 ####[facility] [address] [place], [address] Cholesterol in HDL [Mass/Vol] 35 mg/dL Low [facility] Comment on above: Result Comment: The drugs N-Acetylcysteine and Metamizole may falselydepress this assay. Reference Range HDL <40 mg/dL Low HDL Cholesterol HDL >or= 60 mg/dL High HDL Cholesterol Performed By: #### L 500.4100, L503.6620, L500.4050 ####[facility] [address] [place], [address] Cholesterol in LDL [Mass/Vol] 92 mg/dL Normal 0-130 [facility] Comment on above: Performed By: #### L 500.4100, L503.6620, L500.4050 ####[facility] [address] [place], [address] Cholesterol in VLDL [Mass/Vol] 48 mg/dL High 5-40 [facility] Comment on above: Performed By: #### L 500.4100, L503.6620, L500.4050 ####[facility] [address] [place], [address] Triglyceride [Mass/Vol] 242 mg/dL High [facility] Comment on above: Result Comment: The drugs N-Acetylcysteine and Metamizole may falselydepress this assay.Serum Triglycerides Reference Interval Normal <150 mg/dL Borderline high 150 - 199 mg/dL High 200 - 499 mg/dL Very High > or = 500 mg/dL Performed By: #### L 500.4100, L503.6620, L500.4050 ####[facility] [address] [place], [address] 12 Lead EKG performed by [facility]MS on 11-08-2023 12 Lead EKG performed by BMS Normal [facility] BNP,B-Type NATRIURETIC PEPTI Delroy 11-08-2023 Natriuretic peptide B (Bld) [Mass/Vol] 346.5 pg/mL High 0-100 [facility] Comment on above: Performed By: #### L 503.6620, L500.4050, L500.4100 ####[facility] [address] [place], [address] Cardiology Visit Reporton Cardiology Visit Report Normal [facility] Chest PA and Lateralon 11-07 Chest PA and Lateral Normal [facility] Comprehensive Metabolic Prof ilon 11-08-2023 ALB Normal 3.2-5.0 [facility] Comment on above: Result Comment: no t ube in lab Performed By: #### L 503.6620, L500.4050, L500.4100 ####[facility] [address] [place], [address] ALK P Normal 45-117 [facility] Comment on above: Result Comment: no t ube in lab Performed By: #### L 503.6620, L500.4050, L500.4100 ####[facility] [address] [place], [address] ALT Normal 13-56 [facility] Comment on above: Result Comment: no t ube in lab Performed By: #### L 503.6620, L500.4050, L500.4100 ####[facility] [address] [place], [address] AST Normal 15-37 [facility] Comment on above: Result Comment: no t ube in lab Performed By: #### L 503.6620, L500.4050, L500.4100 ####[facility] [address] [place], [address] BUN Normal 7-18 [facility] Comment on above: Result Comment: no t ube in lab Performed By: #### L 503.6620, L500.4050, L500.4100 ####[facility] [address] [place], [address] BUN/CRE Normal 10-20 [facility] Comment on above: Result Comment: no t ube in lab Performed By: #### L 503.6620, L500.4050, L500.4100 ####[facility] [address] [place], [address] CA,Total Normal 8.5-10.1 [facility] Comment on above: Result Comment: no t ube in lab Performed By: #### L 503.6620, L500.4050, L500.4100 ####[facility] [address] [place], [address] CL Normal 98-107 [facility] Comment on above: Result Comment: no t ube in lab Performed By: #### L 503.6620, L500.4050, L500.4100 ####[facility] [address] [place], [address] CO2 Normal 21.0-32.0 [facility] Comment on above: Result Comment: no t ube in lab Performed By: #### L 503.6620, L500.4050, L500.4100 ####[facility] [address] [place], [address] CREAT,SERUM Normal 0.55-1.02 [facility] Comment on above: Result Comment: no t ube in lab Performed By: #### L 503.6620, L500.4050, L500.4100 ####[facility] [address] [place], [address] EST GFR Normal >60 [facility] Comment on above: Result Comment: no t ube in lab Performed By: #### L 503.6620, L500.4050, L500.4100 ####[facility] [address] [place], [address] EST GFR - AA Normal >60 [facility] Comment on above: Result Comment: no t ube in lab Performed By: #### L 503.6620, L500.4050, L500.4100 ####[facility] [address] [place], [address] GAP Normal 5-15 [facility] Comment on above: Result Comment: no t ube in lab Performed By: #### L 503.6620, L500.4050, L500.4100 ####[facility] [address] [place], [address] GLU Normal 74-106 [facility] Comment on above: Result Comment: no t ube in lab Performed By: #### L 503.6620, L500.4050, L500.4100 ####[facility] [address] [place], [address] Potassium Normal 3.5-5.1 [facility] Comment on above: Result Comment: no t ube in lab Performed By: #### L 503.6620, L500.4050, L500.4100 ####[facility] [address] [place], [address] T BILI Normal 0.20-1.00 [facility] Comment on above: Result Comment: no t ube in lab Performed By: #### L 503.6620, L500.4050, L500.4100 ####[facility] [address] [place], [address] T PROT Normal 6.4-8.2 [facility] Comment on above: Result Comment: no t ube in lab Performed By: #### L 503.6620, L500.4050, L500.4100 ####[facility] [address] [place], [address] Comprehensive Metabolic Profil Normal 136-145 [facility] Comment on above: Result Comment: no t ube in lab Performed By: #### L 503.6620, L500.4050, L500.4100 ####[facility] [address] [place], [address] Lipid Profileon 11-08-[address] [facility] Comment on above: Result Comment: no t ube in labThe drugs N-Acetylcysteine and Metamizole may falselydepress this assay. Performed By: #### L 503.6620, L500.4050, L500.4100 ####[facility] [address] [place], [address] [facility] Comment on above: Result Comment: no t ube in labThe drugs N-Acetylcysteine and Metamizole may falselydepress this assay. Performed By: #### L 503.6620, L500.4050, L500.4100 ####[facility] [address] [place], [address] [address] Normal [address] [facility] Comment on above: Result Comment: no t ube in lab Performed By: #### L 503.6620, L500.4050, L500.4100 ####[facility] [address] [place], [address] LDL Normal 0-130 [facility] Comment on above: Result Comment: no t ube in lab Performed By: #### L 503.6620, L500.4050, L500.4100 ####[facility] [address] [place], [address] VLDL Normal 5-40 [facility] Comment on above: Result Comment: no t ube in lab Performed By: #### L 503.6683, L500.4050, L500.4100 ####[facility] [address] [place], [address] Absolute lymphocyte countOrd ered By: Scott Hull on 07-13-2023 Lymphocytes Auto (Unsp spec) [#/Vol] 1.36 10*3/uL 0.83-4.51 [facility] Automated lymphocyte count a s percentage of total leukocytesOrdered By: Scott Kurtis on 07-13-2023 Lymphocytes/100 WBC Auto (Unsp spec) 23.9 % 19-41 [facility] Basophil percentageOrdered B y: Scott Hull on 07-13-2023 Basophils/100 WBC (Bld) 1.4 % 0-1 [facility] Bilirubin [Mass/Vol] 1.30 mg/dL 0.20-1.00 [facility] Comment on above: For patients on eltr ombopag therapy, use of Dimension [place] TBIL is not recommended. Chloride [Moles/Vol] 107 mmol/L 98-107 [facility] Cholesterol [Mass/Vol] 170 mg/dL <200 [facility] Comment on above: <200 mg/dL Desirable 200-240 mg/dL Borderline >240 mg/dL High Risk Eosinophils/100 WBC (Bld) 1.6 % 0-5 [facility] Glucose [Mass/Vol] 108 mg/dL 74-106 [facility] Comment on above: Fasting Glucose resu lt from 100 to 125 mg/dL suggests IMPAIRED HOMEOSTASIS per A.D.A. criteria. Hemoglobin (Bld) [Mass/Vol] 15.2 g/dL 12.0-15.0 [facility] Monocytes/100 WBC (Bld) 12.6 % 0-10 [facility] Neutrophils (Bld) [#/Vol] 3.4 10*3/uL 2.0-7.7 [facility] Neutrophils/100 WBC (Bld) 59.8 % 47-70 [facility] Potassium [Moles/Vol] 4.2 mmol/L 3.5-5.1 [facility] Protein [Mass/Vol] 7.0 g/dL 6.4-8.2 [facility] Sodium [Moles/Vol] 138 mmol/L 136-145 [facility] Triglyceride [Mass/Vol] 186 mg/dL <199 [facility] Comment on above: The drugs N-Acetylcy steine and Metamizole may falsely depress this assay.Serum Triglycerides Reference Interval Normal <150 mg/dL Borderline high 150 - 199 mg/dL High 200 - 499 mg/dL Very High > or = 500 mg/dL WBC (Bld) [#/Vol] 5.7 10*3/uL 4.4-11.0 [facility] Determination of erythrocyte mean corpuscular volume (MCV)Ordered By: Scott Hull on 07-13-2023 MCV (RBC) [Entitic vol] 97.0 fL 81-99 [facility] Erythrocyte distribution wid th ratioOrdered By: Scott Hull 07-13-2023 Erythrocyte distribution width (RBC) [Ratio] 13.1 % 11.6-14.6 [facility] Erythrocyte distribution wid th standard deviationOrdered By: Scott Hull 07-13-2023 Erythrocyte distribution width (RBC) [Entitic vol] 47.2 fL 35.1-43.9 [facility] Hematocrit Auto (Bld) [Volum e fraction]Ordered By: Scott Hull 07-13-2023 Hematocrit (Bld) [Volume fraction] 46.0 % 37-47 [facility] Immature granulocytes/100 WB C Auto (Bld)Ordered By: Scott Hull 07-13-2023 Immature granulocytes/100 WBC (Bld) 0.700 % 0.0-0.9 [facility] Comment on above: IG% - Immature Granu locytes (promyelocytes, myelocytes and metamyelocytes) > 1% indicates that a LEFT SHIFT is Present. Laboratory - Chemistry and C hemistry - challengeOrdered By: Scott Hull on 07-13-2023 Albumin/Globulin [Mass ratio] 0.9 {ratio} 0.9-2.4 [facility] ALP [Catalytic activity/Vol] 64 U/L 45-117 [facility] ALT [Catalytic activity/Vol] 19 U/L 13-56 [facility] Cholesterol in HDL [Mass/Vol] 37 mg/dL >40 [facility] Comment on above: The drugs N-Acetylcy steine and Metamizole may falsely depress this assay. Reference Range HDL <40 mg/dL Low HDL Cholesterol HDL >or= 60 mg/dL High HDL Cholesterol Cholesterol in LDL [Mass/Vol] 96 mg/dL 0-130 [facility] CO2 [Moles/Vol] 26.0 mmol/L 21.0-32.0 [facility] Globulin (S) [Mass/Vol] 3.6 g/dL 2.2-4.2 [facility] Urea nitrogen/Creatinine [Mass ratio] 15.4 mg/mg 10-20 [facility] Laboratory - Hematology and Cell countsOrdered By: Scott Hull on 07-13-2023 MCH (RBC) [Entitic mass] 32.1 pg 27.0-32.0 [facility] MCHC (RBC) [Mass/Vol] 33.0 g/dL 32-36 [facility] Nucleated RBC/100 WBC (Bld) [Ratio] 0 % 0-5 [facility] Platelet mean volume (Bld) [Entitic vol] 12.7 fL 6.2-12.0 [facility] Platelets (Bld) [#/Vol] 190 10*3/uL 150-450 [facility] No Panel InformationOrdered By: cSott Hull on 07-13-2023 Estimated GFR (MDRD) Amer 50 mL/min >60 [facility] Comment on above: GFR Calc Estimated GFR (MDRD) Non-Af Amer 42 mL/min >60 [facility] Comment on above: Non- GFR Calc Vitamin D 25-Hydroxy 21.5 ng/mL [facility] Comment on above: Vitamin D 25(OH) Sta tus Range Deficiency <20 ng/mL (50nmol/L) Insufficiency 20 - 30 ng/mL (50 - 75 nmol/L) Sufficiency 30 - 100 ng/mL (75 - 250 nmol/L) Toxicity >100 ng/mL (>250 nmol/L) VLDL Cholesterol 37 mg/dL 5-40 [facility] RBC Auto (Bld) [#/Vol]Ordere d By: Scott Hull on 07-13-2023 RBC (Bld) [#/Vol] 4.74 10*6/uL 4.2-5.4 [facility] Serum or plasma calcium leah urement (mass/volume)Ordered By: Scott Hull on 07-13-2023 Calcium [Mass/Vol] 8.8 mg/dL 8.5-10.1 [facility] Serum or plasma creatinine m easurement (mass/volume)Ordered By: Scott Hull on 07-13-2023 Creatinine [Mass/Vol] 1.30 mg/dL 0.55-1.02 [facility] Comment on above: The validity of the calculated GFR & GFRAA in patients over 70 years has not been determined. Clinical correlation is essential. Serum or plasma thyroid stim ulating hormone (TSH) measurement (units/volume)Ordered By: Scott Hull on 07-13-2023 TSH Qn 2.73 uIU/mL 0.358-3.74 [facility] Serum or plasma urea nitroge n measurement (mass/volume)Ordered By: Scott Hull on 07-13-2023 Urea nitrogen [Mass/Vol] 20 mg/dL 7-18 [facility] Serum or plasma uric acid me asurement (mass/volume)Ordered By: Scott Hull 07-13-2023 Urate [Mass/Vol] 4.5 mg/dL 2.6-6.0 [facility] Comment on above: The drugs N-Acetylcy steine and Metamizole may falsely depress this assay. Thin prep Papanicolaou smear with manual screeningOrdered By: Scott Hull on 07-13-2023 Thin prep Papanicolaou smear with manual screening 3.4 g/dL 3.2-5.0 [facility] Thin prep Papanicolaou smear with manual screening 26 U/L 15-37 [facility] Thin prep Papanicolaou smear with manual screening 5 5-15 [facility] Absolute lymphocyte countOrd ered By: Scott Hull on 01-05-2023 Lymphocytes Auto (Unsp spec) [#/Vol] 2.04 10*3/uL 0.83-4.51 [facility] Basophil percentageOrdered B y: Scott Hull on 01-05-2023 Basophils/100 WBC (Bld) 1.1 % 0-1 [facility] Bilirubin [Mass/Vol] 0.90 mg/dL 0.20-1.00 [facility] Comment on above: For patients on eltr ombopag therapy, use of Dimension [place] TBIL is not recommended. Chloride [Moles/Vol] 108 mmol/L 98-107 [facility] Eosinophils/100 WBC (Bld) 2.1 % 0-5 [facility] Glucose [Mass/Vol] 108 mg/dL 74-106 [facility] Comment on above: Fasting Glucose resu lt from 100 to 125 mg/dL suggests IMPAIRED HOMEOSTASIS per A.D.A. criteria. Neutrophils (Bld) [#/Vol] 3.9 10*3/uL 2.0-7.7 [facility] Neutrophils/100 WBC (Bld) 54.6 % 47-70 [facility] Potassium [Moles/Vol] 4.1 mmol/L 3.5-5.1 [facility] Protein [Mass/Vol] 7.2 g/dL 6.4-8.2 [facility] Sodium [Moles/Vol] 140 mmol/L 136-145 [facility] WBC (Bld) [#/Vol] 7.1 10*3/uL 4.4-11.0 [facility] Blood erythrocytes count (nu mber/volume)Ordered By: Scott Hull on 01-05-2023 RBC (Bld) [#/Vol] 4.90 10*6/uL 4.2-5.4 [facility] Blood hemoglobin measurement (mass/volume)Ordered By: Scott Hull on 01-05-2023 Hemoglobin (Bld) [Mass/Vol] 15.7 g/dL 12.0-15.0 [facility] Blood lymphocytes/100 leukoc ytesOrdered By: Scott Hull on 01-05-2023 Lymphocytes/100 WBC (Bld) 28.6 % 19-41 [facility] Blood monocytes/100 leukocyt esOrdered By: Scott Hull on 01-05-2023 Monocytes/100 WBC (Bld) 13.0 % 0-10 [facility] Blood platelet mean volumeOr dered By: Scott Hull on 01-05-2023 Platelet mean volume (Bld) [Entitic vol] 12.0 fL 6.2-12.0 [facility] Determination of erythrocyte mean corpuscular volume (MCV)Ordered By: Scott Hull on 01-05-2023 MCV (RBC) [Entitic vol] 98.2 fL 81-99 [facility] Hematocrit Auto (Bld) [Volum e fraction]Ordered By: [facility] Kurtis on 01-05-2023 Hematocrit (Bld) [Volume fraction] 48.1 % 37-47 [facility] Laboratory - Chemistry and C hemistry - challengeOrdered By: [facility] Kurtis on 01-05-2023 ALP [Catalytic activity/Vol] 63 U/L 45-117 [facility] ALT [Catalytic activity/Vol] 22 U/L 13-56 [facility] CO2 [Moles/Vol] 23.0 mmol/L 21.0-32.0 [facility] Globulin (S) [Mass/Vol] 3.9 g/dL 2.2-4.2 [facility] Urea nitrogen/Creatinine [Mass ratio] 15.3 mg/mg 10-20 [facility] Laboratory - Hematology and Cell countsOrdered By: [facility]2023 Erythrocyte distribution width (RBC) [Entitic vol] 49.0 fL 35.1-43.9 [facility] Erythrocyte distribution width (RBC) [Ratio] 13.5 % 11.6-14.6 [facility] Immature granulocytes/100 WBC (Bld) 0.600 % 0.0-0.9 [facility] Comment on above: IG% - Immature Granu locytes (promyelocytes, myelocytes and metamyelocytes) > 1% indicates that a LEFT SHIFT is Present. MCH (RBC) [Entitic mass] 32.0 pg 27.0-32.0 [facility] Nucleated RBC/100 WBC (Bld) [Ratio] 0 % 0-5 [facility] MCHC Auto (RBC) [Mass/Vol]Or dered By: Scott Hull on 01-05-2023 MCHC (RBC) [Mass/Vol] 32.6 g/dL 32-36 [facility] No Panel InformationOrdered By: Scott Hull on 01-05-2023 Estimated GFR (MDRD) Amer 56 mL/min >60 [facility] Comment on above: GFR Calc Estimated GFR (MDRD) Non-Af Amer 47 mL/min >60 [facility] Comment on above: Non- GFR Calc Thyroid Stimulating Hormone (TSH) 2.88 uIU/mL 0.358-3.74 [facility] Vitamin D 25-Hydroxy 16.6 ng/mL [facility] Comment on above: Vitamin D 25(OH) Sta tus Range Deficiency <20 ng/mL (50nmol/L) Insufficiency 20 - 30 ng/mL (50 - 75 nmol/L) Sufficiency 30 - 100 ng/mL (75 - 250 nmol/L) Toxicity >100 ng/mL (>250 nmol/L) Platelets bldOrdered By: Scott Hull on 01-05-2023 Platelets (Bld) [#/Vol] 227 10*3/uL 150-450 [facility] Serum or plasma albumin leah urement (mass/volume)Ordered By: Scott Hull on 01-05-2023 Albumin [Mass/Vol] 3.3 g/dL 3.2-5.0 [facility] Serum or plasma albumin/glob ulin mass ratioOrdered By: Scott Hull on 01-05-2023 Albumin/Globulin [Mass ratio] 0.8 {ratio} 0.9-2.4 [facility] Serum or plasma calcium leah urement (mass/volume)Ordered By: Scott Hull on 01-05-2023 Calcium [Mass/Vol] 8.7 mg/dL 8.5-10.1 [facility] Serum or plasma creatinine m easurement (mass/volume)Ordered By: Scott Hull 01-05-2023 Creatinine [Mass/Vol] 1.18 mg/dL 0.55-1.02 [facility] Comment on above: The validity of the calculated GFR & GFRAA in patients over 70 years has not been determined. Clinical correlation is essential. Serum or plasma urea nitroge n measurement (mass/volume)Ordered By: Scott Hull on 01-05-2023 Urea nitrogen [Mass/Vol] 18 mg/dL 7-18 [facility] Serum or plasma uric acid me asurement (mass/volume)Ordered By: Scott Hull 01-05-2023 Urate [Mass/Vol] 4.3 mg/dL 2.6-6.0 [facility] Comment on above: The drugs N-Acetylcy steine and Metamizole may falsely depress this assay. Thin prep Papanicolaou smear with manual screeningOrdered By: Scott Hull on 01-05-2023 Thin prep Papanicolaou smear with manual screening 18 U/L 15-37 [facility] Thin prep Papanicolaou smear with manual screening 9 5-15 [facility] Absolute lymphocyte countOrd ered By: Dr. Hull on 06-30-2022 Lymphocytes Auto (Unsp spec) [#/Vol] 1.80 10*3/uL 0.83-4.51 [facility] Basophil percentageOrdered B y: Dr. Hull on 06-30-2022 Basophils/100 WBC (Bld) 1.3 % 0-1 [facility] Bilirubin [Mass/Vol] 0.80 mg/dL 0.20-1.00 [facility] Comment on above: For patients on eltr ombopag therapy, use of Dimension [place] TBIL is not recommended. Chloride [Moles/Vol] 104 mmol/L 98-107 [facility] Eosinophils/100 WBC (Bld) 1.6 % 0-5 [facility] Glucose [Mass/Vol] 106 mg/dL 74-106 [facility] Comment on above: Fasting Glucose resu lt from 100 to 125 mg/dL suggests IMPAIRED HOMEOSTASIS per A.D.A. criteria. Neutrophils (Bld) [#/Vol] 5.8 10*3/uL 2.0-7.7 [facility] Neutrophils/100 WBC (Bld) 66.1 % 47-70 [facility] Potassium [Moles/Vol] 4.5 mmol/L 3.5-5.1 [facility] Protein [Mass/Vol] 6.9 g/dL 6.4-8.2 [facility] Sodium [Moles/Vol] 136 mmol/L 136-145 [facility] WBC (Bld) [#/Vol] 8.8 10*3/uL 4.4-11.0 [facility] Blood erythrocytes count (nu mber/volume)Ordered By: Dr. Hull on 06-30-2022 RBC (Bld) [#/Vol] 4.84 10*6/uL 4.2-5.4 [facility] Blood hemoglobin measurement (mass/volume)Ordered By: Dr. Hull on 06-30-2022 Hemoglobin (Bld) [Mass/Vol] 15.7 g/dL 12.0-15.0 [facility] Blood lymphocytes/100 leukoc ytesOrdered By: Dr. Hull on 06-30-2022 Lymphocytes/100 WBC (Bld) 20.5 % 19-41 [facility] Blood monocytes/100 leukocyt esOrdered By: Dr. Hull on 06-30-2022 Monocytes/100 WBC (Bld) 9.6 % 0-10 [facility] Blood platelet mean volumeOr dered By: Dr. Hull on 06-30-2022 Platelet mean volume (Bld) [Entitic vol] 12.5 fL 6.2-12.0 [facility] Determination of erythrocyte mean corpuscular volume (MCV)Ordered By: Dr. Hull on 06-30-2022 MCV (RBC) [Entitic vol] 97.5 fL 81-99 [facility] Hematocrit Auto (Bld) [Volum e fraction]Ordered By: Dr. Hull on 06-30-2022 Hematocrit (Bld) [Volume fraction] 47.2 % 37-47 [facility] Laboratory - Chemistry and C hemistry - challengeOrdered By: Dr. Hull on 06-30-2022 ALP [Catalytic activity/Vol] 74 U/L 45-117 [facility] ALT [Catalytic activity/Vol] 21 U/L 13-56 [facility] CO2 [Moles/Vol] 23.0 mmol/L 21.0-32.0 [facility] Globulin (S) [Mass/Vol] 3.4 g/dL 2.2-4.2 [facility] Urea nitrogen/Creatinine [Mass ratio] 18.2 mg/mg 10-20 [facility] Laboratory - Hematology and Cell countsOrdered By: Dr. Hull on 06-30-2022 Erythrocyte distribution width (RBC) [Entitic vol] 47.4 fL 35.1-43.9 [facility] Erythrocyte distribution width (RBC) [Ratio] 13.2 % 11.6-14.6 [facility] Immature granulocytes/100 WBC (Bld) 0.900 % 0.0-0.9 [facility] Comment on above: IG% - Immature Granu locytes (promyelocytes, myelocytes and metamyelocytes) > 1% indicates that a LEFT SHIFT is Present. MCH (RBC) [Entitic mass] 32.4 pg 27.0-32.0 [facility] Nucleated RBC/100 WBC (Bld) [Ratio] 0 % 0-5 [facility] MCHC Auto (RBC) [Mass/Vol]Or dered By: Dr. Hull on 06-30-2022 MCHC (RBC) [Mass/Vol] 33.3 g/dL 32-36 [facility] No Panel InformationOrdered By: Dr. Hull on 06-30-2022 Estimated GFR (MDRD) Amer 48 mL/min >60 [facility] Comment on above: GFR Calc Estimated GFR (MDRD) Non-Af Amer 39 mL/min >60 [facility] Comment on above: Non- GFR Calc Thyroid Stimulating Hormone (TSH) 3.20 uIU/mL 0.358-3.74 [facility] Vitamin D 25-Hydroxy 33.6 ng/mL [facility] Comment on above: Vitamin D 25(OH) Sta tus Range Deficiency <20 ng/mL (50nmol/L) Insufficiency 20 - 30 ng/mL (50 - 75 nmol/L) Sufficiency 30 - 100 ng/mL (75 - 250 nmol/L) Toxicity >100 ng/mL (>250 nmol/L) Platelets bldOrdered By: Dr. Hull on 06-30-2022 Platelets (Bld) [#/Vol] 252 10*3/uL 150-450 [facility] Serum or plasma albumin leah urement (mass/volume)Ordered By: Dr. Hull on 06-30-2022 Albumin [Mass/Vol] 3.5 g/dL 3.2-5.0 [facility] Serum or plasma albumin/glob ulin mass ratioOrdered By: Dr. Hull on 06-30-2022 Albumin/Globulin [Mass ratio] 1.0 {ratio} 0.9-2.4 [facility] Serum or plasma calcium leah urement (mass/volume)Ordered By: Dr. Hull on 06-30-2022 Calcium [Mass/Vol] 9.0 mg/dL 8.5-10.1 [facility] Serum or plasma creatinine m easurement (mass/volume)Ordered By: Dr. Hull on 06-30-2022 Creatinine [Mass/Vol] 1.37 mg/dL 0.55-1.02 [facility] Comment on above: The validity of the calculated GFR & GFRAA in patients over 70 years has not been determined. Clinical correlation is essential. Serum or plasma urea nitroge n measurement (mass/volume)Ordered By: Dr. Hull on 06-30-2022 Urea nitrogen [Mass/Vol] 25 mg/dL 7-18 [facility] Serum or plasma uric acid me asurement (mass/volume)Ordered By: Dr. Hull on 06-30-2022 Urate [Mass/Vol] 3.9 mg/dL 2.6-6.0 [facility] Comment on above: The drugs N-Acetylcy steine and Metamizole may falsely depress this assay. Thin prep Papanicolaou smear with manual screeningOrdered By: Dr. Hull on 06-30-2022 Thin prep Papanicolaou smear with manual screening 25 U/L 15-37 [facility] Thin prep Papanicolaou smear with manual screening 9 5-15 [facility] Absolute lymphocyte counton 12-30-2021 Lymphocytes Auto (Unsp spec) [#/Vol] 1.81 10*3/uL 0.83-4.51 [facility] Work Phone: Basophil percentageon 2021 Basophils/100 WBC (Bld) 1.1 % 0-1 [facility] Work Phone: Bilirubin [Mass/Vol] 1.10 mg/dL 0.20-1.00 [facility] Work Phone: Comment on above: For patients on eltr ombopag therapy, use of Dimension [place] TBIL is not recommended. Chloride [Moles/Vol] 108 mmol/L 98-107 [facility] Work Phone: Eosinophils/100 WBC (Bld) 1.4 % 0-5 [facility] Work Phone: Glucose [Mass/Vol] 104 mg/dL 74-106 [facility] Work Phone: Comment on above: Fasting Glucose resu lt from 100 to 125 mg/dL suggests IMPAIRED HOMEOSTASIS per A.D.A. criteria. Neutrophils (Bld) [#/Vol] 3.7 10*3/uL 2.0-7.7 [facility] Work Phone: Neutrophils/100 WBC (Bld) 55.7 % 47-70 [facility] Work Phone: Potassium [Moles/Vol] 4.1 mmol/L 3.5-5.1 [facility] Work Phone: Protein [Mass/Vol] 7.3 g/dL 6.4-8.2 [facility] Work Phone: Sodium [Moles/Vol] 138 mmol/L 136-145 [facility] Work Phone: WBC (Bld) [#/Vol] 6.6 10*3/uL 4.4-11.0 [facility] Work Phone: Blood erythrocytes count (nu mber/volume)on 12-30-2021 RBC (Bld) [#/Vol] 4.82 10*6/uL 4.2-5.4 [facility] Work Phone: Blood hemoglobin measurement (mass/volume)on 12-30-2021 Hemoglobin (Bld) [Mass/Vol] 15.4 g/dL 12.0-15.0 [facility] Work Phone: Blood lymphocytes/100 leukoc yteson 12-30-2021 Lymphocytes/100 WBC (Bld) 27.5 % 19-41 [facility] Work Phone: Blood monocytes/100 leukocyt eson 12-30-2021 Monocytes/100 WBC (Bld) 13.7 % 0-10 [facility] Work Phone: Blood platelet mean volumeon 12-30-2021 Platelet mean volume (Bld) [Entitic vol] 12.6 fL 6.2-12.0 [facility] Work Phone: Determination of erythrocyte mean corpuscular volume (MCV)on 12-30-2021 MCV (RBC) [Entitic vol] 96.3 fL 81-99 [facility] Work Phone: Hematocrit Auto (Bld) [Volum e fraction]on 12-30-2021 Hematocrit (Bld) [Volume fraction] 46.4 % 37-47 [facility] Work Phone: Laboratory - Chemistry and C hemistry - challengeon 12-30-2021 ALP [Catalytic activity/Vol] 78 U/L 45-117 [facility] Work Phone: ALT [Catalytic activity/Vol] 23 U/L 13-56 [facility] Work Phone: CO2 [Moles/Vol] 23.0 mmol/L 21.0-32.0 [facility] Work Phone: Globulin (S) [Mass/Vol] 3.9 g/dL 2.2-4.2 [facility] Work Phone: Urea nitrogen/Creatinine [Mass ratio] 19.0 mg/mg 10-20 [facility] Work Phone: Laboratory - Hematology and Cell countson 12-30-2021 Erythrocyte distribution width (RBC) [Entitic vol] 45.9 fL 35.1-43.9 [facility] Work Phone: Erythrocyte distribution width (RBC) [Ratio] 13.0 % 11.6-14.6 [facility] Work Phone: Immature granulocytes/100 WBC (Bld) 0.600 % 0.0-0.9 [facility] Work Phone: Comment on above: IG% - Immature Granu locytes (promyelocytes, myelocytes and metamyelocytes) > 1% indicates that a LEFT SHIFT is Present. MCH (RBC) [Entitic mass] 32.0 pg 27.0-32.0 [facility] Work Phone: Nucleated RBC/100 WBC (Bld) [Ratio] 0 % 0-5 [facility] Work Phone: MCHC Auto (RBC) [Mass/Vol]on 12-30-2021 MCHC (RBC) [Mass/Vol] 33.2 g/dL 32-36 [facility] Work Phone: No Panel Informationon 12-30 Estimated GFR (MDRD) Amer 58 mL/min >60 [facility] Work Phone: Comment on above: GFR Calc Estimated GFR (MDRD) Non-Af Amer 48 mL/min >60 [facility] Work Phone: Comment on above: Non- GFR Calc Thyroid Stimulating Hormone (TSH) 2.92 uIU/mL 0.358-3.74 [facility] Work Phone: Vitamin D 25-Hydroxy 18.4 ng/mL [facility] Work Phone: Comment on above: Vitamin D 25(OH) Sta tus Range Deficiency <20 ng/mL (50nmol/L) Insufficiency 20 - 30 ng/mL (50 - 75 nmol/L) Sufficiency 30 - 100 ng/mL (75 - 250 nmol/L) Toxicity >100 ng/mL (>250 nmol/L) Platelets bldon 12-30-2021 Platelets (Bld) [#/Vol] 222 10*3/uL 150-450 [facility] Work Phone: Serum or plasma albumin leah urement (mass/volume)on 12-30-2021 Albumin [Mass/Vol] 3.4 g/dL 3.2-5.0 [facility] Work Phone: Serum or plasma albumin/glob ulin mass ratioon 12-30-2021 Albumin/Globulin [Mass ratio] 0.9 {ratio} 0.9-2.4 [facility] Work Phone: Serum or plasma calcium leah urement (mass/volume)on 12-30-2021 Calcium [Mass/Vol] 9.1 mg/dL 8.5-10.1 [facility] Work Phone: Serum or plasma creatinine m easurement (mass/volume)on 12-30-2021 Creatinine [Mass/Vol] 1.16 mg/dL 0.55-[facility] Work [facility]: Comment on above: The validity of the calculated GFR & GFRAA in patients over 70 years has not been determined. Clinical correlation is essential. Serum or plasma urea nitroge n measurement (mass/volume)on 12-30-2021 Urea nitrogen [Mass/Vol] 22 mg/dL 7-18 [facility] Work Phone: Serum or plasma uric acid me asurement (mass/volume)on 12-30-2021 Urate [Mass/Vol] 4.1 mg/dL 2.6-6.0 [facility] Work Phone: Comment on above: The drugs N-Acetylcy steine and Metamizole may falsely depress this assay. Thin prep Papanicolaou smear with manual screeningon 12-30-2021 Thin prep Papanicolaou smear with manual screening 22 U/L 15-37 [facility] Work Phone: Thin prep Papanicolaou smear with manual screening 7 5-15 [facility] Work Phone: Absolute lymphocyte counton 06-30-2021 Lymphocytes Auto (Unsp spec) [#/Vol] 1.74 10*3/uL 0.83-4.51 [facility] Work Phone: Basophil percentageon 2021 Basophils/100 WBC (Bld) 1.4 % 0-1 [facility] Work Phone: Bilirubin [Mass/Vol] 0.90 mg/dL 0.20-1.00 [facility] Work Phone: Comment on above: For patients on eltr ombopag therapy, use of Dimension [place] TBIL is not recommended. Chloride [Moles/Vol] 106 mmol/L 98-107 [facility] Work Phone: Eosinophils/100 WBC (Bld) 1.1 % 0-5 [facility] Work Phone: Glucose [Mass/Vol] 112 mg/dL 74-106 [facility] Work Phone: Comment on above: Fasting Glucose resu lt from 100 to 125 mg/dL suggests IMPAIRED HOMEOSTASIS per A.D.A. criteria. Neutrophils (Bld) [#/Vol] 3.8 10*3/uL 2.0-7.7 [facility] Work Phone: Neutrophils/100 WBC (Bld) 59.2 % 47-70 [facility] Work Phone: Potassium [Moles/Vol] 4.4 mmol/L 3.5-5.1 [facility] Work Phone: Protein [Mass/Vol] 7.3 g/dL 6.4-8.2 [facility] Work Phone: Sodium [Moles/Vol] 137 mmol/L 136-145 [facility] Work Phone: WBC (Bld) [#/Vol] 6.4 10*3/uL 4.4-11.0 [facility] Work Phone: Blood erythrocytes count (nu mber/volume)on 06-30-2021 RBC (Bld) [#/Vol] 4.95 10*6/uL 4.2-5.4 [facility] Work Phone: Blood hemoglobin measurement (mass/volume)on 06-30-2021 Hemoglobin (Bld) [Mass/Vol] 15.7 g/dL 12.0-15.0 [facility] Work Phone: Blood lymphocytes/100 leukoc yteson 06-30-2021 Lymphocytes/100 WBC (Bld) 27.3 % 19-41 [facility] Work Phone: Blood monocytes/100 leukocyt eson 06-30-2021 Monocytes/100 WBC (Bld) 10.7 % 0-10 [facility] Work Phone: Blood platelet mean volumeon 06-30-2021 Platelet mean volume (Bld) [Entitic vol] 12.7 fL 6.2-12.0 [facility] Work Phone: Determination of erythrocyte mean corpuscular volume (MCV)on 06-30-2021 MCV (RBC) [Entitic vol] 96.6 fL 81-99 [facility] Work Phone: Hematocrit Auto (Bld) [Volum e fraction]on 06-30-2021 Hematocrit (Bld) [Volume fraction] 47.8 % 37-47 [facility] Work Phone: Laboratory - Chemistry and C hemistry - challengeon 06-30-2021 ALP [Catalytic activity/Vol] 71 U/L 45-117 [facility] Work Phone: ALT [Catalytic activity/Vol] 26 U/L 13-56 [facility] Work Phone: CO2 [Moles/Vol] 25.0 mmol/L 21.0-32.0 [facility] Work Phone: Globulin (S) [Mass/Vol] 3.7 g/dL 2.2-4.2 [facility] Work Phone: Urea nitrogen/Creatinine [Mass ratio] 14.7 mg/mg 10-20 [facility] Work Phone: Laboratory - Hematology and Cell countson 06-30-2021 Erythrocyte distribution width (RBC) [Entitic vol] 46.4 fL 35.1-43.9 [facility] Work Phone: Erythrocyte distribution width (RBC) [Ratio] 13.1 % 11.6-14.6 [facility] Work Phone: Immature granulocytes/100 WBC (Bld) 0.300 % 0.0-0.9 [facility] Work Phone: Comment on above: IG% - Immature Granu locytes (promyelocytes, myelocytes and metamyelocytes) > 1% indicates that a LEFT SHIFT is Present. MCH (RBC) [Entitic mass] 31.7 pg 27.0-32.0 [facility] Work Phone: Nucleated RBC/100 WBC (Bld) [Ratio] 0 % 0-5 [facility] Work Phone: MCHC Auto (RBC) [Mass/Vol]on 06-30-2021 MCHC (RBC) [Mass/Vol] 32.8 g/dL 32-36 [facility] Work Phone: No Panel Informationon 06-30 Estimated GFR (MDRD) Amer 51 mL/min >60 [facility] Work Phone: Comment on above: GFR Calc Estimated GFR (MDRD) Non-Af Amer 42 mL/min >60 [facility] Work Phone: Comment on above: Non- GFR Calc Thyroid Stimulating Hormone (TSH) 2.54 uIU/mL 0.358-3.74 [facility] Work Phone: Vitamin D 25-Hydroxy 24.2 ng/mL [facility] Work Phone: Comment on above: Vitamin D 25(OH) Sta tus Range Deficiency <20 ng/mL (50nmol/L) Insufficiency 20 - 30 ng/mL (50 - 75 nmol/L) Sufficiency 30 - 100 ng/mL (75 - 250 nmol/L) Toxicity >100 ng/mL (>250 nmol/L) Platelets bldon 06-30-2021 Platelets (Bld) [#/Vol] 242 10*3/uL 150-450 [facility] Work Phone: Serum or plasma albumin leah urement (mass/volume)on 06-30-2021 Albumin [Mass/Vol] 3.6 g/dL 3.2-5.0 [facility] Work Phone: Serum or plasma albumin/glob ulin mass ratioon 06-30-2021 Albumin/Globulin [Mass ratio] 1.0 {ratio} 0.9-2.4 [facility] Work Phone: Serum or plasma calcium leah urement (mass/volume)on 06-30-2021 Calcium [Mass/Vol] 9.2 mg/dL 8.5-10.1 [facility] Work Phone: Serum or plasma creatinine m easurement (mass/volume)on 06-30-2021 Creatinine [Mass/Vol] 1.29 mg/dL 0.55-1.02 [facility] Work Phone: Comment on above: The validity of the calculated GFR & GFRAA in patients over 70 years has not been determined. Clinical correlation is essential. Serum or plasma urea nitroge n measurement (mass/volume)on 06-30-2021 Urea nitrogen [Mass/Vol] 19 mg/dL 7-18 [facility] Work Phone: Serum or plasma uric acid me asurement (mass/volume)on 06-30-2021 Urate [Mass/Vol] 4.3 mg/dL 2.6-6.0 [facility] Work Phone: Comment on above: The drugs N-Acetylcy steine and Metamizole may falsely depress this assay. Thin prep Papanicolaou smear with manual screeningon 06-30-2021 Thin prep Papanicolaou smear with manual screening 23 U/L 15-37 [facility] Work Phone: Thin prep Papanicolaou smear with manual screening 6 5-15 [facility] Work Phone: Office Visiton 01-04-2017 Dietary management education, guidance, and counseling (procedure) yes Invalid Interpretation Code [facility] [employer] Work Phone: Documentation of current medications (procedure) Done Invalid Interpretation Code [facility] [employer] Work Phone: Tobacco use [facility]PHS Never smoker Invalid Interpretation Code [facility] [employer] Work Phone: Office Visit: [facility] 12-30-19 17 Documentation of current medications (procedure) Done Invalid Interpretation Code [facility] [employer] Work Phone: Fall risk assessment No Invalid Interpretation Code [facility] [employer] Work Phone: Protein mass conc Done Invalid Interpretation Code [facility] [employer] Work Phone: Office Visiton 09-28-2016 Dietary management education, guidance, and counseling (procedure) yes Invalid Interpretation Code [facility] Work Phone: Documentation of current medications (procedure) Done Invalid Interpretation Code [facility] Work Phone: Tobacco smoking status NHIS Never smoker Invalid Interpretation Code [facility] Work Phone: Tobacco use CPHS Never smoker Invalid Interpretation Code [facility] Work Phone: Office Visiton 06-29-2016 Dietary management education, guidance, and counseling (procedure) yes Invalid Interpretation Code [facility] Work Phone: Documentation of current medications (procedure) Done Invalid Interpretation Code [facility] Work Phone: Tobacco use CPHS Never smoker Invalid Interpretation Code [facility] Work Phone: Clinical Lists Update: 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-2015 Left ventricular Ejection fraction 65 % Invalid Interpretation Code [facility] Work Phone: Lab Report: Lipid Profileon 11-12-2015 Cholesterol 194 mg/dL Invalid Interpretation Code 200 [facility] Work Phone: HDL Cholesterol 45 mg/dL Invalid Interpretation Code [facility] Work Phone: LDL Cholesterol 123 mg/dL Invalid Interpretation Code 0-130 [facility] Work Phone: Triglyceride 132 mg/dL Invalid Interpretation Code [facility] Work Phone: very low density lipoproteins 26 mg/dL Invalid Interpretation Code 5-40 [facility] Work Phone: Lab Report: Liver Profileon 11-12-2015 Alanine aminotransferase (ALT) 19 U/L Invalid Interpretation Code 12-78 [facility] Work Phone: Albumin 3.6 g/dL Invalid Interpretation Code 3.4-5.0 [facility] Work Phone: Alkaline phosphatase (ALP) 72 U/L Invalid Interpretation Code 50-136 [facility] Work Phone: ALP enzyme act/vol (Bld) 72 U/L Invalid Interpretation Code 50-136 [facility] Work Phone: Aspartate aminotransferase (AST) 17 U/L Invalid Interpretation Code 15-37 [facility] Work Phone: Bilirubin (direct) 0.17 mg/dL Invalid Interpretation Code 0.00-0.30 [facility] Work Phone: Bilirubin (total) 0.90 mg/dL Invalid Interpretation Code 0.20-1.00 [facility] Work Phone: Globulin 3.7 g/dL High 2.3-3.5 [facility] Work Phone: Protein 7.3 g/dL Invalid Interpretation Code 6.4-8.2 [facility] Work Phone: Vital Signs Date Time Vital Sign Value Performing Clinician [facility] [employer] 01-04-2024 11:57-0400 Body height 157.5 cm Mónica Maldonado CNP Work Phone: [facility] 01-04-2024 11:57-0400 Body mass index (BMI) [Ratio] 43.09 kg/m2 Mónica Maldonado CNP Work Phone: [facility] 01-04-2024 11:57-0400 Body weight 106.87 kg Mónica Maldonado CNP Work Phone: [facility] 01-04-2024 11:57-0400 Diastolic blood pressure 64 mm[Hg] Mónica Maldonado CNP Work Phone: [facility] 01-04-2024 11:57-0400 Heart rate 68 /min Mónica Maldonado CNP Work Phone: [facility] 01-04-2024 11:57-0400 SaO2% (BldA) [Mass fraction] 97 % Mónica Maldonado CNP Work Phone: [facility] 01-04-2024 11:57-0400 Systolic blood pressure 112 mm[Hg] Mónica David COMMISSION SALES ASSOCIATE - MEDICAL ASSISTANT SECRETARY Work Phone: [facility] 12-26-2023 11:34-0400 Body temperature 96.49 [degF] Harjeet Huffman MD Work Phone: [facility] 12-26-2023 11:34-0400 Diastolic blood pressure 82 mm[Hg] Harjeet Huffman MD Work Phone: [facility] 12-26-2023 11:34-0400 Heart rate 87 /min Harjeet Huffman MD Work Phone: [facility] 12-26-2023 11:34-0400 Respiratory rate 22 /min Harjeet Huffman MD Work Phone: [facility] 12-26-2023 11:34-0400 SaO2% (BldA) [Mass fraction] 98 % Harjeet Huffman MD Work Phone: [facility] 12-26-2023 11:34-0400 Systolic blood pressure 148 mm[Hg] Harjeet Huffman MD Work Phone: [facility] 12-26-2023 09:27-0400 Body height 157.5 cm Harjeet Huffman MD Work Phone: [facility] 12-26-2023 09:27-0400 Body mass index (BMI) [Ratio] 45.91 kg/m2 Harjeet Huffman MD Work Phone: [facility] 12-26-2023 09:27-0400 Body weight 113.85 kg Harjeet Huffman MD Work Phone: [employer] 12-12-2023 13:57-0400 Diastolic blood pressure 76 mm[Hg] Ach Pop [facility] 12-12-2023 13:57-0400 Heart rate 73 /min Ach Pop [facility] 12-12-2023 13:57-0400 Respiratory rate 18 /min Ach Pop [facility] 12-12-2023 13:57-0400 Systolic blood pressure 128 mm[Hg] Ach Pop [facility] 12-12-2023 12:30-0400 Body temperature 96.8 [degF] Arlene Velez COMMISSION SALES ASSOCIATE - MEDICAL ASSISTANT SECRETARY Work Phone: [facility] 12-12-2023 12:30-0400 Diastolic blood pressure 64 mm[Hg] Arlene Velez COMMISSION SALES ASSOCIATE - MEDICAL ASSISTANT SECRETARY Work Phone: [facility] 12-12-2023 12:30-0400 Heart rate 50 /min Arlene Velez COMMISSION SALES ASSOCIATE - MEDICAL ASSISTANT SECRETARY Work Phone: [facility] 12-12-2023 12:30-0400 Respiratory rate 18 /min Arlene Velez COMMISSION SALES ASSOCIATE - MEDICAL ASSISTANT SECRETARY Work Phone: [facility] 12-12-2023 12:30-0400 Systolic blood pressure 113 mm[Hg] Arlene Velez COMMISSION SALES ASSOCIATE - MEDICAL ASSISTANT SECRETARY Work Phone: [facility] 12-12-2023 07:34-0400 Body temperature 97 [degF] [facility] 11-21-2023 14:17-0400 Body height 157.5 cm Juan Connorung DO Work Phone: [facility] 11-21-2023 14:17-0400 Body mass index (BMI) [Ratio] 43.15 kg/m2 Juan Reed DO Work Phone: [facility] 11-21-2023 14:17-0400 Body weight 107 kg Juan Reed DO Work Phone: [facility] 11-21-2023 14:17-0400 Diastolic blood pressure 82 mm[Hg] Juan Connorung DO Work Phone: [facility] 11-21-2023 14:17-0400 Heart rate 58 /min Juan Reed DO Work Phone: [facility] 11-21-2023 14:17-0400 SaO2% (BldA) [Mass fraction] 98 % Juan Reed DO Work Phone: [facility] 11-21-2023 14:17-0400 Systolic blood pressure 136 mm[Hg] Juan Reed DO Work Phone: [employer] 11-21-2023 14:01-0400 Body height 157.5 cm Harjeet Huffman MD Work Phone: [employer] 11-21-2023 14:01-0400 Body mass index (BMI) [Ratio] 43.31 kg/m2 Harjeet Huffman MD Work Phone: [employer] 11-21-2023 14:01-0400 Body weight 107.41 kg Harjeet Huffman MD Work Phone: [employer] 11-21-2023 14:01-0400 Diastolic blood pressure 82 mm[Hg] Harjeet Huffman MD Work Phone: [employer] 11-21-2023 14:01-0400 Heart rate 58 /min Harjeet Huffman MD Work Phone: [employer] 11-21-2023 14:01-0400 SaO2% (BldA) [Mass fraction] 98 % Harjeet Huffman MD Work Phone: [employer] 11-21-2023 14:01-0400 Systolic blood pressure 136 mm[Hg] Harjeet Huffman MD Work Phone: [employer] 12-29-2016 10:24-0400 BMI (Body Mass Index) 38.01 kg/m2 Shelly Ahuja [facility] Work Phone: 12-29-2016 10:24-0400 BP Diastolic 80 mm[Hg] [facility] Work Phone: 12-29-2016 10:24-0400 BP Systolic 128 mm[Hg] [facility] Work Phone: 12-29-2016 10:24-0400 Height 161.29 cm [facility] Work Phone: 12-29-2016 10:24-0400 Pulse (Heart Rate) 72 /min [facility] Work Phone: 12-29-2016 10:24-0400 Respiratory Rate 20 /min [facility] Work Phone: 12-29-2016 10:24-0400 Weight 98.88 kg [facility] Work Phone: 05-26-2016 14:01-0500 BMI (Body Mass Index) 37.83 kg/m2 [facility] Work Phone: 05-26-2016 14:01-0500 BP Diastolic 76 mm[Hg] [facility] Work Phone: 05-26-2016 14:01-0500 BP Systolic 144 mm[Hg] [facility] Work Phone: 05-26-2016 14:01-0500 Height 161.29 cm [facility] Work Phone: 05-26-2016 14:01-0500 Pulse (Heart Rate) 76 /min [facility] Work Phone: 05-26-2016 14:01-0500 Respiratory Rate 18 /min [facility] ter [facility] Work Phone: 05-26-2016 14:01-0500 Weight 98.43 kg [facility] Work Phone: 11-10-2015 14:49-0400 BSA (Body Surface Area) 2.03 m2 [facility] Work Phone: Encounters Encounter Date Encounter Type Care Provider Facility Start: 09-24-2024 ambulatory Scott Hull Facility:[facility] Start: 09-24-2024 Registered Referred Joe Sanchez MD [facility] Start: 09-02-2024 End: 09-02-[address] Scott Hull MD Work Phone: [facility] Start: 09-02-2024 End: 09-02-2024 Patient encounter procedure Sara MONTEMAYOR [facility] Work Phone: Start: 08-27-2024 ambulatory Scott Hull Facility:[facility] Start: 08-27-2024 Registered Referred Joe Sanchez MD [facility] Start: 08-20-2024 End: 08-20-[address] Scott Hull MD Work Phone: [facility] Start: 08-20-2024 End: 08-20-2024 Patient encounter procedure Sara MONTEMAYOR [facility] Work Phone: Start: 08-14-2024 ambulatory Scott Ridge Hull Facility:[facility] Start: 08-14-2024 Registered Referred Joe Sanchez MD [facility] Start: 07-30-2024 End: 07-30-[address] cSott Hull MD Work Phone: [facility] Work Phone: Start: 07-30-2024 End: 07-30-2024 Departed Referred Joe Sanchez MD [facility] Start: 07-30-2024 End: 07-30-2024 ambulatory Scott Ridge Hull Facility:[facility] Start: 07-23-2024 End: 07-23-[address] Scott Hull MD Work Phone: [facility] Start: 07-23-2024 End: 07-23-[address] Joe Sanchez MD [facility] Work Phone: Start: 07-15-2024 End: 07-15-[address] Scott Hull MD Work Phone: [facility] Work Phone: Start: 07-15-2024 End: 07-15-2024 [facility]: 07-15-[facility]24 [facility] Start: 07-15-2024 End: 07-15-2024 ambulatory Scott uHll Facility:[facility] Start: 07-02-2024 End: 07-02-[address] Scott Hull MD Work Phone: [facility] Work Phone: Start: 07-02-2024 End: 07-02-2024 [facility] Start: 07-02-2024 End: 07-02-2024 ambulatory Efewkayleigh Sanchez OLS Facility:[facility] Start: 06-18-2024 End: 06-18-2024 [facility] Start: 06-18-2024 [facility] Start: 06-18-2024 End: 06-18-2024 ambulatory Efewkayleigh Chaue OLS Facility:[facility] Start: 06-04-2024 End: 06-04-[address] Scott Hull MD Work Phone: [facility] Work Phone: Start: 06-04-2024 End: 06-04-2024 [facility] Start: 06-04-2024 End: 06-04-2024 ambulatory Efewongbe Oleghe OLS Facility:[facility] Start: 05-28-2024 End: 05-28-2024 ambulatory Efewongbe Oleghe Facility:[facility] Start: 05-28-2024 End: 05-28-[address] Joe Sanchez MD -[facility] Work Phone: Start: 05-16-2024 End: 05-16-2024 ambulatory Scott Ridge Kurtis Facility:[facility] Start: 05-16-2024 End: 05-16-2024 Patient encounter procedure Eriberto VILLALOBOS -[facility] Work Phone: Start: 05-07-2024 ambulatory Joe PORTILLO Fa cility:[facility] Start: 05-07-2024 [facility] Start: 04-22-2024 ambulatory Joe Sanchez OLS Fa cility:[facility] Start: 04-22-2024 [facility] Start: 04-18-2024 ambulatory Scott Chi Kurtis [facility] Start: 04-09-2024 End: 04-09-2024 [facility] Start: 04-09-2024 End: 04-09-2024 ambulatory Joe PORTILLO Facility:[facility] Start: 04-02-2024 End: 04-02-2024 ambulatory Yudimelissalynnette Daniel Facility:[facility] Start: 04-02-2024 End: 04-02-[address] Joe Sanchez MD -[facility] Work Phone: Start: 03-15-2024 End: 03-15-2024 ambulatory Scott Chi Kurtis Facility:[facility] Start: 03-15-2024 End: 03-15-2024 Patient encounter procedure Sara MONTEMAYOR -[facility] Work Phone: Start: 03-15-2024 ambulatory Joe PORTILLO Fa cility:[facility] Start: 03-15-2024 [facility] Start: 03-08-2024 ambulatory Scott Chi Kurtis Facility:[facility] Start: 03-08-2024 [facility] Start: 03-01-2024 End: 03-01-2024 [facility] Start: 03-01-2024 End: 03-01-2024 ambulatory Scott Chi Kurtis Facility:[facility] Start: 02-27-2024 End: 02-27-2024 ambulatory Scott Chi Kurtis Facility:[facility] Start: 02-27-2024 End: 02-27-2024 Patient encounter procedure Sara MONTEMAYOR -[facility] Work Phone: Start: 02-23-2024 End: 02-23-2024 ambulatory Scott Chi Kurtis Facility:[facility] Start: 02-16-2024 ambulatory Scott Chi Kurtis Facility:[facility] Start: 02-09-2024 ambulatory Scott Chi Kurtis Facility:[facility] Start: 02-07-2024 End: 02-07-2024 ambulatory Scott Chi Kurtis Facility:[facility] Start: 02-02-2024 ambulatory Scott Chi Kurtis Facility:[facility] Start: 01-29-2024 ambulatory Scott Chi Kurtis Facility:[facility] Start: 01-26-2024 ambulatory Scott Chi Kurtis Facility:[facility] Start: 01-22-2024 ambulatory Scott Chi Kurtis Facility:[facility] Start: 01-19-2024 ambulatory Efewongbe Kandie OLS Fa cility:[facility] Start: 01-18-2024 End: 01-18-2024 ambulatory Scott Chi Kurtis Facility:[facility] Start: 01-16-2024 End: 01-16-2024 ambulatory Scott Chi Kurtis Facility:[facility] Start: 01-15-2024 End: 01-15-2024 ambulatory Scott Chi Kurtis Facility:[facility] Start: 01-12-2024 ambulatory Scott Chi Kurtis Facility:[facility] Start: 01-11-2024 End: 01-11-2024 ambulatory Scott Chi Kurtis Facility:[facility] Start: 01-08-2024 ambulatory Scott Chi Kurtis [facility] Start: 01-08-2024 ambulatory Scott Chi Kurtis [facility] Start: 01-06-2024 ambulatory Scott Chi Kurtis [facility] Start: 01-06-2024 End: 01-10-2024 Evaluation and management of inpatient Sudarshan Sandoval Facility:[facility] Start: 01-05-2024 ambulatory Scott Chi Kurtis Facility:[facility] Start: 01-04-2024 End: 02-22-2024 Telephone encounter Mónica Maldonado CNP Work Phone: [facility] [employer] Comment on above: Orders Start: 01-04-2024 End: 01-04-2024 Office outpatient visit 25 minutes Mónica David APRN [employer] Work Phone: [facility] [employer] Comment on above: Chronic atrial fibri llation (HCC) (Primary Dx); Severe aortic stenosis; Stage 3a chronic kidney disease (HCC); Left heart failure (HCC) Start: 01-04-2024 End: 01-04-2024 ambulatory MÓNICA DAVID [facility] Start: 12-25-2023 End: 12-26-2023 Evaluation and management of inpatient Harjeet Huffman MD Work Phone: [facility] Cardiac Thoracic Vascular Intensive Care Unit CTV ICU T1 Comment on above: Severe aortic stenos is (Primary Dx); Nonrheumatic aortic valve stenosis Start: 12-22-2023 End: 12-22-2023 ambulatory Arlene Velez APRN [employer] Work Phone: [facility] [employer] Comment on above: Severe aortic stenos is (Primary Dx) Start: 12-19-2023 End: 12-19-2023 ambulatory Scott Chi Kurtis Facility:[facility] Start: 12-12-2023 End: 12-12-2023 Office outpatient visit 25 minutes Mónica David APRN [employer] Work Phone: [facility] [employer] Comment on above: Chronic atrial fibri llation (HCC) (Primary Dx); Nonrheumatic aortic valve stenosis; Adverse effect of contrast media, initial encounter Start: 12-12-2023 End: 12-12-2023 Subsequent hospital visit by physician Arlene Velez APRN - [employer] Work Phone: [facility] Comment on above: Nonrheumatic aortic valve stenosis Start: 12-12-2023 End: 12-12-2023 ambulatory Harjeet Huffman MD Work Phone: [facility] [employer] Comment on above: Renal failure, unspe cified chronicity; Stenosis of prosthetic aortic valve, initial encounter Start: 12-04-2023 End: 12-04-2023 ambulatory Scott Chi Kurtis [facility] Start: 11-21-2023 End: 11-21-2023 Office outpatient new 45 minutes Thaddeus Mckeon MD Work Phone: [facility] Comment on above: Nonrheumatic aortic valve stenosis (Primary Dx); Chronic atrial fibrillation (HCC); Short-term memory loss; Drug-induced bradycardia; Polypharmacy Start: 11-21-2023 End: 11-21-2023 Office outpatient new 60 minutes Juan Reed DO Work Phone: [facility] Comment on above: Stenosis of prosthet ic aortic valve, initial encounter (Primary Dx) LV dysfunction (Prim logan Dx); Stenosis of prosthetic aortic valve, initial encounter Start: 11-21-2023 End: 11-21-2023 ambulatory THADDEUS MCKEON [facility] Start: 11-08-2023 End: 11-09-2023 ambulatory [facility] Facility:[facility] Start: 11-08-2023 End: 11-08-2023 ambulatory [facility] Facility:[facility] Start: 07-13-2023 End: 07-13-[address] [facility] Work Phone: Start: 07-13-2023 End: 07-13-[address] [facility] Work Phone: Start: 01-05-2023 End: 01-05-[address] [facility] Work Phone: Start: 01-05-2023 End: 01-05-[address] [facility], Phy Office 3rd Flr Start: 06-30-2022 End: 06-30-[address] [facility] Work Phone: Start: 06-30-2022 End: 06-30-[address] [facility] Phy Office 3rd Flr Start: 12-30-2021 End: 12-30-[address] [facility] Work Phone: Start: 12-30-2021 End: 12-30-[address] [facility]y Office 3rd Flr Start: 06-30-2021 End: 06-30-[address] [facility] Phy Office 3rd Flr Start: 09-11-[address] [facility] Procedures Date Procedure Procedure Detail Performing [...] TTE w or wo fol wcon,Doppler Mónica Radford Sandeep COMMISSION SALES ASSOCIATE - MEDICAL ASSISTANT SECRETARY Work Phone: Start: 12-26-2023 Ecg routine ecg w/le ast 12 lds trcg only w/o i&r Mónica Radford Sandeep COMMISSION SALES ASSOCIATE - MEDICAL ASSISTANT SECRETARY Work Phone: Start: 12-26-2023 Basic metabolic pane l calcium total Mónica Radford Sandeep COMMISSION SALES ASSOCIATE - MEDICAL ASSISTANT SECRETARY Work Phone: Start: 12-25-2023 Echo transthorc r-t 2d w/wo m-mode rec f-up/lmtd Harjeet Huffman MD Work Phone: Start: 12-25-2023 Basic metabolic pane l calcium total Mónica Radford Sandeep COMMISSION SALES ASSOCIATE - MEDICAL ASSISTANT SECRETARY Work Phone: Start: 12-25-2023 Ecg routine ecg w/le ast 12 lds trcg only w/o i&r Mónica Radford Sandeep COMMISSION SALES ASSOCIATE - MEDICAL ASSISTANT SECRETARY Work Phone: Start: 12-25-2023 OXYGEN THERAPY Mónica Radford Sandeep COMMISSION SALES ASSOCIATE - MEDICAL ASSISTANT SECRETARY Work Phone: Start: 12-25-2023 Cardiac catheterizat ion study Harjeet Huffman MD Work Phone: Start: 12-25-2023 Antibody screen HARJEET DOWNING Comment on above: Performed By: #### L [id number] #### Social Media Assistant: AIDE RUEDA ([phone]) [facility] ([facility]) [address] [place] [address] Start: 12-25-2023 End: 12-25-2023 Blood typing serologic rh (d) Tien Cornell MD Work Phone: Start: 12-25-2023 End: 12-25-2023 TRANSCATHETER AORTIC VALVE REPLACEMENT (TAVR) - OR Tien Cornell MD Work Phone: Start: 12-12-2023 Antibody screen HARJEET DOWNING Comment on above: Performed By: #### L [id number] ####Social Media Assistant: AIDE RUEDA ([phone])[facility] ([facility])[address] [place] [address] Start: 12-12-2023 Blood typing serologic abo Harjeet Huffman MD Work Phone: Start: 12-12-2023 Comprehensive metabo lic panel Harjeet Huffman MD Work Phone: Start: 11-25-2023 Ecg routine ecg w/le ast 12 lds w/i&r Harjeet Huffman MD Work Phone: Start: 01-05-2017 End: 01-09-2017 Nuclear stress test -Lexiscan Mónica Gutierrez PA-C Work Phone: Start: 01-04-2017 End: 01-16-2017 Arthrocentesis aspir&/inj major jt/bursa w/o us Sukh Raay Work Phone: Start: 01-03-2017 End: 01-09-2017 Nuclear [...] Start: 09-28-2016 End: 10-12-2016 Drain/inject, joint/bursa Sukh Raya Work Phone: Start: 06-29-2016 End: 07-11-2016 Arthrocentesis [...] DTaP/Tdap/Td Vaccines (2 - Td or Tdap) [facility] Start: 12-25-2024 Creatinine measurement Creatinine Level [facility] Start: 12-25-2024 Echocardiography Echocardiogram [facility] Start: 12-25-2024 Potassium measurement Potassium Level [facility] Start: 03-20-2024 Medicare Advantage Annual Wellness Visit Medicare Advantage Annual Wellness Visit [facility] Start: 01-04-2024 End: 01-04-2024 Patient encounter procedure 01/04/2024 12:00 PM EDT Office Visit [facility] [place] [address] [place] [id number] Mónica David, COMMISSION SALES ASSOCIATE - MEDICAL ASSISTANT SECRETARY [address] [place] [address] [facility] [place] Start: 12-25-2023 End: 12-25-2023 Admission to same day surgery center 12/25/2023 9:15 AM EDT - 12/25/2023 11:00 AM EDT Surgery [facility] MA[facility] OR [address] [place] [address] Harjeet Huffman MD [address] [place] [address] TRANSCATHETER AORTIC VALVE REPLACEMENT, TRANSTHORACIC ECHOCARDIOGRAM [facility] Comment on above: TRANSCATHETER AORTIC VALVE REPLACEMENT, TRANSTHORACIC ECHOCARDIOGRAM Start: 12-25-2023 End: 12-25-2023 Anesthesia consultation 12/25/2023 9:15 AM EDT Anesthesia Event [facility] [address] [facility] [place] [phone] Carolina Waldron, COMMISSION SALES ASSOCIATE - MEDICAL ASSISTANT SECRETARY [address] [facility] [address] [place] [address] [facility] Start: 12-25-2023 Subsequent hospital visit by physician 12/25/2023 9:15 AM EDT Hospital Encounter [facility] [address] [facility] [place] [phone] Harjeet Huffman MD [address] [facility] [address] [place] [address] Nonrheumatic aortic valve stenosis [facility] Comment on above: Nonrheumatic aortic valve stenosis Start: 12-25-2023 End: 12-25-2023 TRANSCATHETER AORTIC VALVE REPLACEMENT (TAVR) - OR TRANSCATHETER AORTIC VALVE REPLACEMENT (TAVR) - OR Nonrheumatic aortic valve stenosis 12/25/2023 9:15 AM EDT [facility] Start: 11-19-2023 COVID-19 Vaccine ( season) COVID-19 Vaccine ( season) [facility] Start: 11-19-2023 COVID-19 Vaccine ( season) COVID-19 Vaccine ( season) [facility] Start: 11-19-2023 Influenza vaccination Influenza Vaccine (#1) [facility] Start: 03-20-2023 Medicare Advantage Annual Wellness Visit Medicare Advantage Annual Wellness Visit [facility] Start: 11-09-2020 Lipid panel Lipid Panel [facility] Start: 07-10-2017 End: 07-10-2017 Appointment Appointment [facility] Work Phone: Start: 01-05-2017 End: 01-09-2017 Nuclear stress test -Lexiscan Nuclear stress test -Lexiscan [facility] Work Phone: Start: 01-04-2017 End: 01-04-2017 Appointment Appointment [facility] Work Phone: Start: 01-03-2017 End: 01-05-2017 Nuclear stress test -exercise Nuclear stress test -exercise [facility] Work Phone: Start: 12-29-2016 End: 12-29-2016 DJN DJN [facility] Work Phone: Start: 12-29-2016 End: 12-29-2016 Echocardiography Echocardiogram (complete) [facility] Work Phone: Start: 12-29-2016 End: 12-29-2016 Follow Up Appt 6 months Follow Up Appt 6 months [facility] Work Phone: Start: 12-29-2016 End: 12-29-2016 Nuclear stress test -exercise Nuclear stress test -exercise [facility] Work Phone: Start: 12-29-2016 End: 12-29-2016 Appointment Appointment [facility] Work Phone: Start: 12-15-2016 End: 12-15-2016 Appointment Appointment [facility] Work Phone: Start: 11-11-2016 End: 11-18-2015 *Hepatic Function Panel *Hepatic Function Panel [facility] Work Phone: Start: 11-11-2016 End: 11-18-2015 Lipid panel [AGGREGATE] *Lipid Profile CC PCP [facility] Work Phone: Start: 11-11-2016 End: 11-18-2015 *Hepatic Function Panel *Hepatic Function Panel [facility] Work Phone: Start: 11-11-2016 End: 11-18-2015 Lipid panel [AGGREGATE] *Lipid Profile CC PCP [facility] Work Phone: Start: 09-28-2016 End: 09-28-2016 Appointment Appointment [facility] Work Phone: Start: 05-26-2016 End: 05-26-2016 ERIC REYES [facility] Work Phone: Start: 05-26-2016 End: 05-26-2016 Follow Up Appt 6 months Follow Up Appt 6 months [facility] Work Phone: Start: 05-26-2016 End: 05-26-2016 ERIC REYES [facility] Work Phone: Start: 05-26-2016 End: 05-26-2016 Follow Up Appt 6 months Follow Up Appt 6 months [facility] Work Phone: Start: 11-10-2015 End: 11-12-2015 *Hepatic Function Panel *Hepatic Function Panel [facility] Work Phone: Start: 11-10-2015 End: 05-20-2016 ERIC REYES [facility] Work Phone: Start: 11-10-2015 End: 11-10-2015 Echocardiography Echocardiogram (complete) [facility] Work Phone: Start: 11-10-2015 End: 11-10-2015 Follow Up Appt 6 months Follow Up Appt 6 months [facility] Work Phone: Start: 11-10-2015 End: 11-12-2015 Lipid panel [AGGREGATE] *Lipid Profile CC PCP [facility] Work Phone: Start: 11-10-2015 End: 11-12-2015 *Hepatic Function Panel *Hepatic Function Panel [facility] Work Phone: Start: 11-10-2015 End: 05-20-2016 ERIC REYES [facility] Work Phone: Start: 11-10-2015 End: 11-10-2015 Echocardiography Echocardiogram (complete) [facility] Work Phone: Start: 11-10-2015 End: 11-10-2015 Follow Up Appt 6 months Follow Up Appt 6 months [facility] Work Phone: Start: 11-10-2015 End: 11-12-2015 Lipid panel [AGGREGATE] *Lipid Profile CC PCP [facility] Work Phone: Start: 1952 Depression Screening Depression Screening [facility] Start: 1940 Lipid panel Lipid Panel [facility] Start: 1940 Screening for osteoporosis Bone Density Scan [facility] End: 12-12-2023 CT Chest WO and CT angiogram Coronary arteries W contrast IV [facility] [employer] Work Phone: Comment on above: Once for 1 Occurrences starting 12/12/19 until 12/12/2023 ECG 12 lead - CLINIC PERFORMED ECG 12 lead - CLINIC PERFORMED CV ECG Routine Severe aortic stenosis 01/04/2024 11:54 AM EDT [facility] Work Phone: Patient Education [facility] [facility] Work Phone: Immunizations Immunization Date Immunization Notes Care Provider [facility] 01-05-2023 influenza virus vaccine, unspecified formulation Thaddeus Mckeon MD Work Phone: [facility] 12-27-2017 influenza, injectabl e, quadrivalent, preservative free [facility] 12-27-2017 influenza, seasonal, injectable [facility] Payers Date Payer Category Payer Unknown 2024 Unknown [id number] 2024 Medicaid [id number] 2023 Self-pay [id number] 2023 Medicare [employer] MED[employer] RE [employer] SECURE [id number] 2023-Present [address] [place] [address] Medicare O [id number] 2023 Medicare HMO [employer] SECURE [id number] 2016 Medicare [id number] Unknown [id number] 2.16.840.1.818526.3.579.2.462 Unknown [id number] 2.16.840.1.502028.3.579.2.462 Unknown [id number] 2.16.840.1.905042.3.579.2.462 Unknown [id number] 2.16.840.1.748015.3.579.2.462 Unknown [id number] 2.16.840.1.418483.3.579.2.462 Unknown [id number] 2.16.840.1.908006.3.579.2.462 Unknown [id number] 2.16.840.1.319750.3.579.2.462 Unknown [id number] 2.16.840.1.457710.3.579.2.462 Unknown [id number] 2.16.840.1.824908.3.579.2.462 Unknown [id number] 2.16.840.1.492087.3.579.2.462 Unknown [id number] 2.16.840.1.740038.3.579.2.462 Unknown [id number] 2.16.840.1.030522.3.579.2.462 Unknown [id number] 2.16.840.1.626148.3.579.2.462 Unknown [id number] 2.16.840.1.475329.3.579.2.462 Unknown [id number] 2.16.840.1.457688.3.579.2.462 Unknown [id number] 2.16840.1.294659.3.579.2.462 Unknown [id number] 2.16.840.1.822022.3.579.2.462 Unknown [id number] 2.16840.1.659333.3.579.2.462 Unknown [id number] 2.16840.1.607375.3.579.2.462 Unknown [id number] 2.840.1.910249.3.579.2.462 Unknown [id number] 2.840.1.660255.3.579.2.462 Unknown [id number] 2.840.1.122769.3.579.2.462 Unknown [id number] 2.840.1.495233.3.579.2.462 Unknown [id number] 2.840.1.631617.3.579.2.462 Unknown [id number] 2.16840.1.874506.3.579.2.462 Unknown [id number] 2.16840.1.045277.3.579.2.462 Unknown [id number] 2.16840.1.116108.3.579.2.462 Unknown [id number] 2.16840.1.172446.3.579.2.462 Unknown [id number] 2.16840.1.718651.3.579.2.462 Unknown [id number] 2.16.840.1.783658.3.579.2.462 Unknown [id number] 2.16840.1.637383.3.579.2.462 Unknown [id number] 2.16.840.1.889065.3.579.2.462 Unknown [id number] 2.16.840.1.573518.3.579.2.462 Unknown [id number] 2.16.840.1.273752.3.579.2.462 Unknown [id number] 2.16.840.1.881608.3.579.2.462 Unknown [id number] 2.16.840.1.645793.3.579.2.462 Unknown [id number] 2.16.840.1.285348.3.579.2.462 Unknown [id number] 2.16.840.1.976340.3.579.2.462 Unknown [id number] 2.16.840.1.259289.3.579.2.462 Unknown [id number] 2.16.840.1.715408.3.579.2.462 Unknown [id number] 2.16.840.1.817327.3.579.2.462 Unknown [id number] 2.16.840.1.102131.3.579.2.462 Unknown [id number] 2.16.840.1.003604.3.579.2.462 Unknown [id number] 2.16.840.1.623804.3.579.2.462 Unknown [id number] 2.16.840.1.231900.3.579.2.462 Social History Date Type Detail Facility Start: [facility]04[facility]21 [facility] Start: 12-28-2017 Non-smoker [facility] Start: 1940 Sex Assigned At Female [facility] Start: 2023 End: 01-10-2024 Tobacco smoking status TNIS Never smoked tobacco [facility] Start: 2023 Tobacco use and exposure Smokeless tobacco non-user [facility] Start: 11-21-2023 End: 01-04-2024 Alcoholic beverage intake Lifetime non-drinker (finding) [facility] Start: 11-21-2023 End: 01-04-2024 History of Social function [facility] Start: 11-21-2023 End: 01-04-2024 Tobacco use panel [facility] Start: 1940 Sex assigned at Not on file [facility] Start: 10-18-2021 End: 06-25-2024 Sex Female (finding) [facility] Medical Equipment Procedure Code Equipment Code [...] Valve Aor Soumya 3 Ultra 23mm - [id number] - [id number] Start: 12-25-2023 Comment on above: Description: [id number] Device Perclose Prostyle - [id number] Start: 12-25-2023 Device Perclose Prostyle - [id number] Start: 12-25-2023 DOUGH,CEMENT [id number] FDA Start: 09-19-2017 [...] - 04/03/2024 11:30 AM ESTTelephone Encounter - Jenniferamaya Bear - 04/03/2024 11:30 AM ESTTelephone Encounter - Jennifer Bear - 04/01/2024 10:30 AM ESTPatient Instructions Note Date & Type Note Facility 04-03-2024 Telephone encounter Note Records received and scanned under Media [facility] 04-03-2024 Miscellaneous Notes Records received and scanned under Media I called [facility] and she requested me to fax med recs release to [phone] I faxed this morning. Confirmed 04/02 at 5:45p I spoke w/ Juana in Dr. Garces's office, asking for echo order to be faxed. I placed Teofilo brennan DNP to sign, order needs faxed to Juana's attention @ [phone]. Time frame dates given to [place] for completion of OV/EKG/echo. KCCQ mailed to pt. ----- Message from Mónica David APRN - SIM sent at 01/04/2024 1:51 PM EDT ----- Please call [place] office and advise regarding registry requirements of one month and one yr appts and echo. Will likely need phone call for KCCQ. documented in this encounter [facility] 04-01-2024 Telephone encounter Note I called [facility] and she requested me to fax med recs release to [phone] I faxed this morning. Confirmed 04/02 at 5:45p [facility] 04-01-2024 Miscellaneous Notes I called [facility] and she requested me to fax med recs release to [phone] I faxed this morning. I spoke w/ Juana in Dr. Garces's office, asking for echo order to be faxed. I placed Teofilo brennan DNP to sign, order needs faxed to [place]ana's attention @ [phone]. Time frame dates given to [place] for completion of OV/EKG/echo. KCCQ mailed to pt. ----- Message from JEREMIE Saldaña CNP sent at 01/04/2024 1:51 PM EDT ----- Please call [place] office and advise regarding registry requirements of one month and one yr appts and echo. Will likely need phone call for KCCQ. documented in this encounter [facility] 04-01-2024 Miscellaneous Notes I called [facility] and she requested me to fax med recs release to [phone] I faxed this morning. Confirmed 04/02 at 5:45p I spoke w/ Juana in Dr. Garces's office, asking for echo order to be faxed. I placed anu, Teofilo David DNP to sign, order needs faxed to [place]'s attention @ [phone]. Time frame dates given to [place] for completion of OV/EKG/echo. KCCQ mailed to pt. ----- Message from JEREMIE Saldaña CNP sent at 01/04/2024 1:51 PM EDT ----- Please call [place] office and advise regarding registry requirements of one month and one yr appts and echo. Will likely need phone call for KCCQ. documented in this encounter [facility] 01-10-2024 Note [facility] 01-04-2024 Telephone encounter Note I spoke w/ Juana in Dr. Garces's office, asking for echo order to be faxed. I placed order, Teofilo David DNP to sign, order needs faxed to Juana's attention @ [phone]. Time frame dates given to [place] for completion of OV/EKG/echo. KCCQ mailed to pt. [facility] 01-04-2024 Telephone encounter Note ----- Message from Mónica David APRN - MEDICAL ASSISTANT SECRETARY sent at 01/04/2024 1:51 PM EDT ----- Please call [place] office and advise regarding registry requirements of one month and one yr appts and echo. Will likely need phone call for KCCQ. [facility] 01-04-2024 History of Present illness Narrative Images from the original note were not included. [facility] CARDIOLOGY - [address] [address] Dept: [phone] Dept Visit type: Established : 1940 Reason for Visit: Cardiac Valve Problem (One week post TAVR) Assessment and Plan 1. Chronic atrial fibrillation (HCC). HR stable. Continue Apixaban 2. Severe aortic stenosis. S/p tAVR. Continue Eliquis. Will contact [facility] regarding follow up and registry requirements. SBE prophylaxis. Plan echo in one month 3. Stage 3a chronic kidney disease (HCC). Renal function remains stable post procedure. Advised that kidney function should be followed mcfp. GFR 27--> 46 4. Left heart failure (HCC). Improved after TAVR, EF 30%--> 50 %, continue furosemide, Aldactone, Farxiga, metoprolol (allerg to landon/ARB) Plan follow up in [place] Subjective Ms Call is an 83 yr old female with a PMH of permanent AF, HFrEF, HTN, HPL, CKD stage 3b, obesity, GERD, and severe with EF 30%, mean and peak gradients 49/71 mm Hg. She underwent cardiac cath at [place] which showed non obstructive CAD. She underwent [...] wrist complaints. She wishes to follow in [place] as travel is difficult for her Allergies [...] Hypokalemia LVH (left ventricular hypertrophy) Morbid obesity ([facility]) Osteoarthritis Vitamin D deficiency Social History Tobacco Use Smoking status: Never Smokeless tobacco: Never Substance Use Topics Alcohol use: Never Past Surgical History: Procedure Laterality Date APPENDECTOMY CARDIAC CATHETERIZATION N/A 12/25/2023 Performed by Harjeet Huffman MD at [facility] OR CATARACT EXTRACTION HYSTERECTOMY No [...] JEREMIE Ruiz CNP documented in this encounter [facility] 12-26-2023 Nurse Note Discharge instructions given to patient and daughter. Patient verbalizes understanding of medication changes and follow up appointments, and activity restrictions. Discharged to home with daughter. [facility] 12-26-2023 Nurse Note Discharge instructions given to patient and daughter. Patient verbalizes understanding of medication changes and follow up appointments, and activity restrictions. Discharged to home with daughter. documented in this encounter [facility] 12-26-2023 Note Attestation signed by Harjeet [...] discharge. Referral has been made to the [facility] Outpatient Cardiac Rehabilitation Program. Last Labs: Lab Results Component Value Date WBC 11.6 (H) 12/26/2023 HGB 14.0 12/26/2023 HCT 43.0 12/26/2023 MCV 97.9 12/26/2023 PLT 154 10/ (more content not included)... [facility] 12-26-2023 Consult note Associated Order (s): IP CONSULT TO CARDIAC REHAB Received referral and reviewed chart. Phase II Cardiopulmonary Rehab Referral discussed with Brianne Call. Patient prefers cardiopulmonary rehab at [place] [facility]. Given information on program at preferred location. [facility] 12-26-2023 Note Received referral an d reviewed chart. Phase II Cardiopulmonary Rehab Referral discussed with Brianne Call. Patient prefers cardiopulmonary rehab at [place] [facility]. Given information on program at preferred location. [facility] 12-26-2023 Consult note Associated Order (s): IP CONSULT TO CARDIAC REHAB Received referral and reviewed chart. Phase II Cardiopulmonary Rehab Referral discussed with Brianne Call. [facility] [place] [facility] Given information on program at preferred location. documented in this encounter [facility] 12-26-2023 Note Atrial fibrillation Poor R wave progression, CONSIDER ANTERIOR INFARCT ST and T abnormality Electronically Signed On 12-26-2023 09:21:43 EDT by Austin Carmona [facility] 12-26-2023 Note Atrial fibrillation Poor R wave progression, CONSIDER ANTERIOR INFARCT ST and T abnormality Electronically Signed On 12-26-2023 09:21:43 EDT by Austin Carmona [facility] 12-26-2023 Note IMPRESSION: Atrial fibrillation Poor R wave progression, CONSIDER ANTERIOR INFARCT ST and T abnormality Electronically Signed On 12-26-2023 09:21:43 EDT by Austin Carmona [facility] 12-25-2023 Hospital Discharge instructions JEREMIE Ruiz CNP - 12/25/2023 12:24 PM EDT - Please call the [facility] with any questions: [phone] -You will have have the following follow [...] unless otherwise specified. documented in this encounter [facility] 12-25-2023 Note Patient: Brianne reynolds Procedure Summary Date: 12/25/23 Room / Location: [facility] Operating Room Anesthesia Start: 945 Anesthesia Stop: [...] once all PACU criteria has been met. [facility] 12-25-2023 Note Patient: Brianne reynolds Procedure Summary Date: 12/25/23 Room / Location: [facility] Operating Room Anesthesia Start: 945 Anesthesia Stop: [...] opportunity for questions and acknowledgement of understanding. [facility] 12-25-2023 Note Arterial Line: Date/Time: 12/25/2023 10:22 AM An arterial line was placed Procedure performed using ultrasound guidance - Image permanently retained with wire or catheter in vein.in the Procedural for the following indication(s): continuous blood pressure monitoring and blood sampling needed. A (size) (length) (type) catheter was placed, into the Right secured by tape. Staffing Performed: Other Other staff: Harjeet Huffman MD [facility] 12-25-2023 Note Formatting of this n [...] The valve was passed through the 14 Dutch sapient E sheath into the descending thoracic [...] patient was decannulated transferred stable to recovery. [facility] Work Phone: 12-25-2023 Note Formatting of this n [...] The valve was passed through the 14 Dutch sapient E sheath into the descending thoracic [...] patient was decannulated transferred stable to recovery. [facility] Work Phone: 12-25-2023 Miscellaneous Notes Date of surgery 12/25/2023 Cardiothoracic Surgeon: Tien Cornell MD, [facility] Preoperative diagnosis: Severe, symptomatic aortic valve [...] The valve was passed through the 14 Dutch sapient E sheath into the descending thoracic [...] stable to recovery. documented in this encounter [facility] 12-25-2023 Attending History and physical note H&P reviewed. The patient was examined and there are no changes to the H&P. Source Note - Arlene JEREMIE Velez - MEDICAL ASSISTANT SECRETARY - 12/22/2023 12:39 PM EDT Images from the original note were not included. H+ P copied to chart from (office provider's name Mónica David APRN) progress note dated 12/12/23 on behalf of (procedural physician's name Dr. Huffman). Expand All Collapse [facility] CARDIOLOGY - [place] [address] [facility] [address] Dept: [phone] Dept Visit type: Established : 1940 Reason [...] mm Hg. She underwent cardiac cath at [place] which showed non obstructive CAD. He kidney [...] mg IntraVENous Once Mónica David APRN - MEDICAL ASSISTANT SECRETARY sodium chloride 0.9 % bolus 500 mL [...] Reviewed and Summarized No results found for: "EFBP", "PLVEF", "LVEFPHYS", "LVEF2D", EF Review of tests/labs done/ordered within my specialty: EKG in office: Review of tests/labs done/ordered outside my specialty: Independent interpretation of tests: Mónica David APRN - SIM [facility] Work Phone: 12-25-2023 History and physical note H&P reviewed. The patient was examined and there are no changes to the H&P. Source Note - Arlene Velez APRN - SIM - 12/22/2023 12:39 PM EDT Images from the original note were not included. H+ P copied to chart from (office provider's name Mónica David APRN) progress note dated 12/12/23 on behalf of (procedural physician's name Dr. Huffman). Expand All Collapse All [facility] CARDIOLOGY - [address] [address] Dept: [phone] Dept Visit type: Established : 1940 Reason [...] mm Hg. She underwent cardiac cath at [place] which showed non obstructive CAD. He kidney [...] mg IntraVENous Once Mónica David APRN - MEDICAL ASSISTANT SECRETARY sodium chloride 0.9 % bolus 500 mL [...] Reviewed and Summarized No results found for: "EFBP", "PLVEF", "LVEFPHYS", "LVEF2D", EF Review of tests/labs done/ordered within my specialty: EKG in office: Review of tests/labs done/ordered outside my specialty: Independent interpretation of tests: Mónica David APRN - MEDICAL ASSISTANT SECRETARY documented in this encounter [facility] 12-25-2023 Note H&P reviewed. The pa tient was examined and there are no changes to the H&P. [facility] 12-22-2023 History and physical note Images from the original note were not included. H+ P copied to chart from (office provider's name Mónica David APRN) progress note dated 12/12/23 on behalf of (procedural physician's name Dr. Huffman). Expand All Collapse All [facility] CARDIOLOGY - [place] [address] [facility] [address] Dept: [phone] Dept Visit type: Established : 1940 Reason [...] mm Hg. She underwent cardiac cath at [place] which showed non obstructive CAD. He kidney [...] mg IntraVENous Once Mónica David APRN - MEDICAL ASSISTANT SECRETARY sodium chloride 0.9 % bolus 500 mL [...] Reviewed and Summarized No results found for: "EFBP", "PLVEF", "LVEFPHYS", "LVEF2D", EF Review of tests/labs done/ordered within my specialty: EKG in office: Review of tests/labs done/ordered outside my specialty: Independent interpretation of tests: Mónica David APRN - MEDICAL ASSISTANT SECRETARY Associated attestation - Harjeet Huffman MD - [...] We will proceed with the planned procedure. [facility] 12-22-2023 History and physical note Images from the original note were not included. H+ P copied to chart from (office provider's name Mónica David APRN) progress note dated 12/12/23 on behalf of (procedural physician's name Dr. Huffman). Expand All Collapse All [facility] CARDIOLOG[facility] - [place] [address] [place] [address] Dept: [phone] Dept Visit type: Established : 1940 Reason [...] 2 days prior and begin ASA. Brianne Russell Aguayosydneygautam participated in a shared decision making [...] mm Hg. She underwent cardiac cath at [place] which showed non obstructive CAD. He kidney [...] mg IntraVENous Once Mónica David APRN - MEDICAL ASSISTANT SECRETARY sodium chloride 0.9 % bolus 500 mL [...] Reviewed and Summarized No results found for: "EFBP", "PLVEF", "LVEFPHYS", "LVEF2D", EF Review of tests/labs done/ordered within my specialty: EKG in office: Review of tests/labs done/ordered outside my specialty: Independent interpretation of tests: Mónica David APRN - MEDICAL ASSISTANT SECRETARY Associated attestation - Harjeet Huffman MD - [...] the planned procedure. documented in this encounter [facility] 12-22-2023 Note Attestation signed by Harjeet [...] name Dr. Huffman). Expand All Collapse All [facility] CARDIOLOGY - [address] [address] Dept: [phone] Dept Visit type: Established : 1940 Reason [...] mm Hg. She underwent cardiac cath at [place] which showed non obstructive CAD. He kidney [...] spironolactone (Aldactone) 25 (more content not included)... [facility] 12-22-2023 Note Attestation signed by [...] (procedural physician's name Dr. Huffman). Expand All [facility] All [facility] CARDIOLOGY - [address] [address] Dept: [phone] Dept Visit type: Established : 1940 Reason [...] mm Hg. She underwent cardiac cath at [place] which showed non obstructive CAD. He kidney [...] spironolactone (Aldactone) 25 (more content not included)... [facility] 12-21-2023 Note Pre TAVR phone call placed. Reviewed, procedure, instructions and meds. Confirmed Eliquis, and Dye Allergy Prep med instructions. Pt verbalizes understanding. Pt knows to call [phone] with any concerns. Teofilo Velez CNP notified for prep for procedure orders. Diagnosis: Procedure being done: TF TAVR Date/time of procedure: 12/25/2023 @ 9:15 am Surgeon: Dr. Huffman 2nd surgeon: Dr. Olsen Admission type: To be admitted Anesthesia: MAC Completed: H&P/BNP/CBC/CMP/CXR/EKG Date completed: [facility] 12/19/23, 12/12/23 Additional orders Dye Allergy Prep meds [facility] 12-15-2023 Note Patient: Brianne reynolds Procedure Information Date/Time: 12/25/23 0915 Procedures: TRANSCATHETER AORTIC VALVE REPLACEMENT, TRANSTHORACIC ECHOCARDIOGRAM TRANSCATHETER AORTIC VALVE REPLACEMENT, TRANSTHORACIC ECHOCARDIOGRAM (Chest) Location: [facility] Operating Room Surgeons: Harjeet Huffman MD; Juan Reed, DO Relevant Problems Cardio (+) Chronic atrial [...] checklist complete Records in media Carolina Waldron, COMMISSION SALES ASSOCIATE - MEDICAL ASSISTANT SECRETARY JOB Screening Labs: Lab Results Component Value [...] 71 mmHg Equipment Requests: Additional Equipment Requests [facility] 09-24-2024 History of Present illness Narrative Pts symptoms of the reaction have all gone away. Pt states she feels back to normal. Pt came back from CT and pts face is red and she states she is starting to progressively get itchy. Mónica David HELP DESK OPERATOR is here at this time and order medications. documented in this encounter [facility] 12-12-2023 History of Present illness Narrative Images from the original note were not included. [facility] CARDIOLOGY - [address] [address] Dept: [phone] Dept Visit type: Established : 1940 Reason [...] mm Hg. She underwent cardiac cath at [place] which showed non obstructive CAD. He kidney [...] mg IntraVENous Once Mónica David APRN - MEDICAL ASSISTANT SECRETARY sodium chloride 0.9 % bolus 500 mL [...] Reviewed and Summarized No results found for: "EFBP", "PLVEF", "LVEFPHYS", "LVEF2D", EF Review of tests/labs done/ordered within my specialty: EKG in office: Review of tests/labs done/ordered outside my specialty: Independent interpretation of tests: JEREMIE Ruiz CNP documented in this encounter [facility] 12-12-2023 Note Pt came back from CT and pts face is red and she states she is starting to progressively get itchy. Mónica David HELP DESK OPERATOR is here at this time and order medications. [facility] 12-06-2023 Note Message reviewed. Re commend CTA with IV hydration. Can get pre procedure labs at time of CTA. [facility] 11-21-2023 History of Present illness Narrative Images from the original note were not included. [facility] CARDIOLOGY [address] [facility] [address] Dept: [phone] Dept Loc: [phone] Today's Visit Location: TAVR (transcather aortic valve replacement) Clinic [facility] [address] [facility] [place] [address] Visit type: Senior Health Assessment at TAVR (transcather aortic valve replacement) Clinic Visit Date: 11/21/2023 Reason for Visit: Shortness of Breath Assessment and Plan 1. Nonrheumatic aortic valve stenosis Assessment & Plan: S/p AV replacement by Dr. Nagy in 201209/22/23 Transthoracic Echo (TTE) noted "severe aortic stenosis". Mean Gradient of 49. Dr. Garces in [place]. No aortic valve area mentioned. I agree with cardiology plan as discussed with steam fitter supervisor maintenance Dr. Huffman and CTS Dr. Reed on [...] Patient has already named her Power of Department Administrator for Healthcare and Finances (Both are her daughter Shama López) I recommended patient follow-up with [facility] (phone: [phone] fax: [phone]) as needed for memory testing. 4. Drug-induced [...] 2020->30% on 09/22/23 Transthoracic Echo (TTE) noted "severe aortic stenosis". Mean Gradient of 49. Dr. Garces in [place]. No aortic valve area mentioned. A fib [...] no=0 points)0 - patient rents room from [facility]. Rajiv (son) lives w pt Reduce [...] [] Daughter Shama López (financial Power of Department Administrator) is on bank acct but patient manages her own money at this time. Patient does still drive. Patient denies any recent tickets/accidents/getting lost/unexplained car damage. Objective Objective: BP 136/82 (BP Location: Left arm, Patient Position: Sitting, BP Cuff Size: Adult) Pulse 58 Ht 5' 2" (1.575 m) Wt 235 lb 14.3 oz [...] phrases are mis-transcribed.) documented in this encounter [facility] 11-21-2023 Instructions Thaddeus Mckeon MD - 11/21/2023 3:30 PM EDT GERIATRICS DISCHARGE INSTRUCTIONS: Follow-up with [facility] (phone: [phone] fax: [phone]) as needed for memory testing. Please BEGIN [...] risk of falls. documented in this encounter [facility] 11-21-2023 Evaluation + Plan note Associated Problem(s): Drug-induced bradycardia HR 58 bpm today but no syncope, presyncope, falls Patient asymptomatic today Patient taking lopressor 12.5mg po bid - I encouraged patient to discuss with her cardiologists/PCP (primary care provider) regarding change of meds given her advanced age and increased risk of falls [facility] 11-21-2023 Miscellaneous Notes Associated Problem(s): Drug-induced [...] Patient has already named her Power of Department Administrator for Healthcare and Finances (Both are her daughter Shama López) I recommended patient follow-up with [facility] (phone: [phone] fax: [phone]) as needed for memory testing. Associated Problem(s): [...] Nagy in 201209/22/23 Transthoracic Echo (TTE) noted "severe aortic stenosis". Mean Gradient of 49. Dr. Garces in [place]. No aortic valve area mentioned. I agree with cardiology plan as discussed with steam fitter supervisor maintenance Dr. Huffman and CTS Dr. Reed on same date regarding next steps for further workup/treatment of cardiac disease which likely includes heart cath +/- TAVR. On this date of evaluation, the patient has sufficient understanding of procedure(s) to consent to the procedure(s) being discussed and has adequate social support(s). documented in this encounter [facility] 11-21-2023 History of Present illness Narrative Images from the original note were not included. [facility]: Cardiothoracic Surgery Multidisciplinary Heart Valve Clinic Date: 11/21/23 Patient:Brianne Call 1940 83 y.o. female [id number] Subjective: HPI: Brianne Call 83 y.o. referred [...] Cuff Size: Adult) Pulse 58 Ht 5' 2" (1.575 m) Wt 235 lb 14.3 oz (107 kg) SpO2 98% BMI 43.15 kg/m Physical Exam Vitals: BP 136/82 (BP Location: Left arm, Patient Position: Sitting, BP Cuff Size: Adult) Pulse 58 Ht 5' 2" (1.575 m) Wt 235 lb 14.3 oz [...] Reviewed in EMR No results found for: "WBC", "HGB", "HCT", "MCV", "PLT" No results found for: "NA", "K", "CL", "CO2", "BUN", "CREATININE", "GLUCOSE", "CALCIUM" Diagnostics: Reviewed in EMR Assessment/Plan: Mrs. Call [...] future. Given her proximity to [facility], she would prefer LHC performed there. We [...] Electronically signed by Juan Reed DO, MS, [place]OL[place] Patient Care Team: Alvarado Hull MD as [...] other diagnostic images. documented in this encounter [facility] 11-21-2023 Evaluation + Plan note Associated Problem(s): Short-term memory loss Chronic Patient with occasional word-finding difficulties I suspect either normal memory loss for aging or possibly MCI (Mild Cognitive Impairment) Patient has already named her Power of Department Administrator for Healthcare and Finances (Both are her daughter Shama López) I recommended patient follow-up with [facility] (phone: [phone] fax: [phone]) as needed for memory testing. [facility] 11-21-2023 Evaluation + Plan note Associated Problem(s): Chronic atrial fibrillation (HCC) Chronic; Stable Asymptomatic May be nearing renal (kidney) dysfunction requiring reduced dose of eliquis (given Cr nearly 1.5 in past and patient's age >80 yo). May need eliquis 2.5mg po bid instead of 5mg po bid in future pending renal (kidney) function [facility] 11-21-2023 Evaluation + Plan note Associated [...] not missing or doubling up on meds [facility] 11-21-2023 Evaluation + Plan note Associated Problem(s): Nonrheumatic aortic valve stenosis S/p AV replacement by Dr. Nagy in 201209/22/23 Transthoracic Echo (TTE) noted "severe aortic stenosis". Mean Gradient of 49. Dr. Garces in . No aortic valve area mentioned. I agree with cardiology plan as discussed with steam fitter supervisor maintenance Dr. Huffman and CTS Dr. Reed on same date regarding next steps for further workup/treatment of cardiac disease which likely includes heart cath +/- TAVR. On this date of evaluation, the patient has sufficient understanding of procedure(s) to consent to the procedure(s) being discussed and has adequate social support(s). [facility] 11-21-2023 History of Present illness Narrative Images from the original note were not included. [facility] [address] [facility] [address] Dept: [phone] Dept Visit type: New : 1940 Reason for Visit: Cardiac Valve Problem Assessment and Plan 1. LV dysfunction 2. Stenosis of prosthetic aortic valve, initial encounter - ECG 12 lead - CLINIC PERFORMED This is a very pleasant 83 y.o. 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 she is clearly in need of aortic valve replacement, likely [id number] TAVR. Will need a diagnostic cath first, [...] lb 12.8 oz (107 kg) Height: 5' 2" (1.575 m) Physical Exam Constitutional: General: She [...] Reviewed and Summarized No results found for: "EFBP", "PLVEF", "LVEFPHYS", "LVEF2D", EF Review of tests/labs done/ordered within my specialty: EKG in office: Review of tests/labs done/ordered outside my specialty: Independent interpretation of tests: I personally reviewed the images from Brianne Call's most recent TTE in the office today, to help with medical decision making. My interpretation is noted in the HPI section of this note. Harjeet Huffman MD documented in this encounter [facility] 11-16-2023 Note Received fax referra l to Heart Valve Clinic from Dr. Garces @ [facility]. I spoke w/ [place], echo images to be pushed to PACS, she will fax lab work. I spoke w/ pt, appt scheduled. Chart made. [facility] Evaluation note No assessment inform ation available [facility] Work Phone: Evaluation note Diagnosis Nonrheumatic aortic valve stenosis- Primary Chronic atrial fibrillation (HCC) Atrial fibrillation Short-term memory loss Memory loss Drug-induced bradycardia Polypharmacy Issue of repeat prescriptions documented in this encounter [facility] note* Diagnosis Stenosis of prosthetic aortic valve, initial encounter- Primary [facility] Diagnosis LV dysfunction- Primary Left heart failure Stenosis of prosthetic aortic valve, initial encounter [facility]* Diagnosis Nonrheumatic aortic valve stenosis- Primary Chronic atrial fibrillation (HCC)- Primary Atrial fibrillation Nonrheumatic aortic valve stenosis Adverse effect of contrast media, initial encounter Nonrheumatic aortic valve stenosis documented in this encounter [facility] note* Diagnosis Nonrheumatic aortic valve stenosis- Primary Renal failure, unspecified chronicity Stenosis of prosthetic aortic valve, initial encounter Nonrheumatic aortic valve stenosis [facility] Diagnosis Nonrheumatic aortic valve stenosis- Primary Nonrheumatic aortic valve stenosis Nonrheumatic aortic valve stenosis [facility] Diagnosis Nonrheumatic aortic valve stenosis- Primary Severe aortic stenosis- Primary Aortic valve disorders Nonrheumatic aortic valve stenosis [facility] Diagnosis Severe aortic stenosis- Primary Aortic valve disorders [facility] Diagnosis Nonrheumatic aortic valve stenosis- Primary Severe aortic stenosis Aortic valve disorders Severe aortic stenosis Aortic valve disorders Nonrheumatic aortic valve stenosis [facility] Diagnosis Chronic atrial fibrillation (HCC)- Primary Atrial fibrillation Severe aortic stenosis Aortic valve disorders Stage 3a chronic kidney disease (HCC) Left heart failure (HCC) Left heart failure [facility] Diagnosis Nonrheumatic aortic valve stenosis- Primary Chronic atrial fibrillation (HCC) Atrial fibrillation Short-term memory loss Memory loss Drug-induced bradycardia Polypharmacy Issue of repeat prescriptions S/P TAVR (transcatheter aortic valve replacement) [facility] Diagnosis Nonrheumatic aortic valve stenosis- Primary Chronic atrial fibrillation (HCC) Atrial fibrillation Short-term memory loss Memory loss Drug-induced bradycardia Polypharmacy Issue of repeat prescriptions S/P TAVR (transcatheter aortic valve replacement) [facility])No reason for referral information [facility]WM[facility] Work Phone: Family History No Family History [...] Yes December 26 8 12:21pm Power of Department Administrator Yes December 26 12:21pm Date Activated Date Inactivated Comments 12/25/2023 7:26 AM Date Activated Date Inactivated Comments 12/25/2023 7:26 AM 12/26/2023 3:54 PM Date Activated Date Inactivated Comments 12/25/2023 7:26 AM 12/26/2023 3:54 PM Advance Directive Response Recorded Date/ Time Advance Directives Yes November 7:44am Reason for Referral Specialty Diagnoses / Procedures Referred By Contac t Referred To Contact Radiology Diagnoses Nonrheumatic aortic valve stenosis Procedures CTA Angiogram TAVR Arlene Velez, COMMISSION SALES ASSOCIATE - MEDICAL ASSISTANT SECRETARY [address] [place] [address] Referral ID Status Reason Start Date Expiration Date Visits Re quested Visits Authorized [id number] Closed 12/07/2023 02/05/2024 1 1 Summary Purpose Chief Complaint and Reason for Visit Chief Complaint Admit Date MONTHLY EXAM February 27, 2024 3:12pm LABWORK March 01, 2024 5:00am [facility] LAB WORK March 08 4:00am LABWORK March 15, 2024 2:14pm NEW CONCERN March 15, 2024 4:36pm MONTHLY EXAM April 02, 2024 1 1:01pm [facility] LAB WORK April 09, 2024 5:00am [facility] LAB WORK April 22, 2024 5:00am LABWORK May 07, 2024 5:00am MONTHLY EXAM May 16, 2024 11:05am [facility] LAB WORK June 04, 2024 5 :00am Chief Complaint Admit Date MONTHLY EXAM April 02, 2024 1 1:01pm [facility] LAB WORK April 09, 2024 5:00am [facility] LAB WORK April 22, 2024 5:00am LABWORK May 07, 2024 5:00am MONTHLY EXAM May 16, 2024 11:05am MONTHLY EXAM May 28, 2024 4:2 0pm [facility] LAB WORK June 04, 2024 5 :00am [facility] LAB WORK June 18, 2024 5: 00am [facility] LAB WORK July 02, 2024 5 :00am Chief Complaint Admit Date [facility] LAB WORK April 22, 2024 5:00am LABWORK May 07, 2024 5:00am MONTHLY EXAM May 16, 2024 11:05am MONTHLY EXAM May 28, 2024 4:2 0pm [facility] LAB WORK June 04, 2024 5 :00am [facility] LAB WORK June 18, 2024 5: 00am [facility] LAB WORK July 02, 2024 5 :00am LABWORK July 30, 2024 5:00a m Chief Complaint Admit Date LABWORK May 07, 2024 5:00am MONTHLY EXAM May 16, 2024 11:05am MONTHLY EXAM May 28, 2024 4:2 0pm [facility] LAB WORK June 04, 2024 5 :00am [facility] LAB WORK June 18, 2024 5: 00am [facility] LAB WORK July 02, 2024 5 :00am [facility] LAB WORK July 15, 2024 4 :00am LABWORK July 30, 2024 5:00a m Chief Complaint Admit Date [facility] LAB WORK June 18, 2024 5: 00am [facility] LAB WORK July 02, 2024 5 :00am [facility] LAB WORK July 15, 2024 4 :00am MONTHLY EXAM July 23, 2024 3:15pm LABWORK July 30, 2024 5:00a m [facility] LAB WORK August 14, 2024 5:0 0am [facility] LAB WORK August 27, 2024 5: 00am Chief Complaint Admit Date [facility] LAB WORK June 18, 2024 5: 00am [facility] LAB WORK July 02, 2024 5 :00am [facility] LAB WORK July 15, 2024 4 :00am MONTHLY EXAM July 23, 2024 3:15pm LABWORK July 30, 2024 5:00a m [facility] LAB WORK August 14, 2024 5:0 0am NEW CONCERN August 20, 2024 3:45p m [facility] LAB WORK August 27, 2024 5: 00am Chief Complaint Admit Date [facility] LAB WORK June 18, 2024 5: 00am [facility] LAB WORK July 02, 2024 5 :00am [facility] LAB WORK July 15, 2024 4 :00am MONTHLY EXAM July 23, 2024 3:15pm LABWORK July 30, 2024 5:00a m [facility] LAB WORK August 14, 2024 5:0 0am NEW CONCERN August 20, 2024 3:45p m [facility] LAB WORK August 27, 2024 5: 00am NEW CONCERN September 02, 2024 3:00 pm Additional Source Comments Goals (unrecognized section and [...] 30, 2024 End: July 30, 2024 Joe PROTILLO MD Attending Provider Active Start: July 30, [...] Provi guillermo, Attending Provider, Referring Provider Active Medical Director Occupational Health Relationship Specialty Start Date End Date Alvarado Hull MD [address] [place] [address] PCP - General Geriatric Medicine 11/21/23 Medical Director Occupational Health Relationship Specialty Start Date End Date Alvarado Hull MD [address] [place] [address] PCP - General Geriatric Medicine 11/21/23 Medical Director Occupational Health Relationship Specialty Start Date End Date Alvarado Hull MD [address] [place] [address] PCP - General Geriatric Medicine 11/21/23 Medical Director Occupational Health Relationship Specialty Start Date End Date Alvarado Hull MD [address] [place] [address] PCP - General Geriatric Medicine 11/21/23 Medical Director Occupational Health Relationship Specialty Start Date End Date Alvarado Hull MD [address] [place] [address] PCP - General Geriatric Medicine 11/21/23 Medical Director Occupational Health Relationship Specialty Start Date End Date Alvarado Hull MD [address] [place] [address] PCP - General Geriatric Medicine 11/21/23 Medical Director Occupational Health Relationship Specialty Start Date End Date Alvarado Hull MD [address] [place] [address] PCP - General Geriatric Medicine 11/21/23 Medical Director Occupational Health Relationship Specialty Start Date End Date Alvarado Hull MD [address] [place] [address] PCP - General Geriatric Medicine 11/21/23 Medical Director Occupational Health Relationship Specialty Start Date End Date Alvarado Hull MD [address] [place] [address] PCP - General Geriatric Medicine 11/21/23 Medical Director Occupational Health Relationship Specialty Start Date End Date Alvarado Hull MD [address] [place] [address] PCP - General Geriatric Medicine 11/21/23 Medical Director Occupational Health Relationship Specialty Start Date End Date Alvarado Hull MD [address] [place] [address] PCP - General Geriatric Medicine 11/21/23 Team Status: Inactive Member Role Status Dates Dr. Scott Hull MD Primary Care Provider Active Start: February 27, 2024 End: February 27, 2024 Sara Irizarry HELP DESK OPERATOR, HELP DESK OPERATOR-C Attending Provider Active Start: February 27, 2024 [...] 2024 End: March 15, 2024 Sara Irizarry HELP DESK OPERATOR, HELP DESK OPERATOR-C Attending Provider Active Start: March 15, 2024 [...] Attending Provider Active Start: June 18, 2024 Team Status: Inactive Member Role Status Dates Dr. Scott Hull MD Primary Care Provider Active Start: July 15, 2024 End: July 15, 2024 Joe PORTILLO MD Attending Provider Active Start: July 15, 2024 End: July 15, 2024 Joe PORTILLO MD Referring Provider Active Start: July 15, 2024 End: July 15, 2024 Team Status: Active Member Role/Relationship Status Dates Dr. Scott Hull MD Primary Care Provider Active Team Status: Inactive Member Role/Relationship Status Dates Dr. Scott Hull MD Primary Care Provider Active Start: June 18, 2024 End: June 18, 2024 Joe PORTILLO MD Attending Provider Active Start: June 18, 2024 End: June 18, 2024 Team Status: Inactive Member Role/Relationship Status Dates Dr. Scott Hull MD Primary Care Provider Active Start: July 02, 2024 End: July 02, 2024 Joe PORTILLO MD Attending Provider Active Start: July 02, 2024 End: July 02, 2024 Team Status: Inactive Member Role/Relationship Status Dates Dr. Scott Hull MD Primary Care Provider Active Start: July 15, 2024 End: July 15, 2024 Joe PORTILLO MD Attending Provider Active Start: July 15, 2024 End: July 15, 2024 Joe PORTILLO MD Referring Provider Active Start: July 15, 2024 End: July 15, 2024 Team Status: Inactive Member Role/Relationship Status Dates Dr. Scott Hull MD Primary Care Provider Active Start: July 23, 2024 End: July 23, 2024 Dr. Joe Sanchez MD Attending Provider Active Start: July 23, 2024 End: July 23, 2024 Team Status: Inactive Member Role/Relationship Status Dates Dr. Scott Hull MD Primary Care Provider Active Start: July 30, 2024 End: July 30, 2024 Joe PORTILLO MD Attending Provider Active Start: July 30, 2024 End: July 30, 2024 Team Status: Active Member Role/Relationship Status Dates Dr. Scott Hull MD Primary Care Provider Active Start: August 14, 2024 Joe PORTILLO MD Attending Provider Active Start: August 14, 2024 Team Status: Active Member Role/Relationship Status Dates Dr. Scott Hull MD Primary Care Provider Active Start: August 27, 2024 Joe PORTILLO MD Attending Provider Active Start: August 27, 2024 Team Status: Active Member Role/Relationship Status Dates Dr. Scott Hull MD Primary Care Provider Active Start: September 24, 2024 Joe PORTILLO MD Attending Provider Active Start: September 24, 2024 Team Status: Inactive Member Role/Relationship Status Dates Dr. Scott Hull MD Primary Care Provider Active Start: August 20, 2024 End: August 20, 2024 Sara Irizarry NP HELP DESK OPERATOR-C Attending Provider Active Start: August 20, 2024 End: August 20, 2024 Team Status: Active Member Role/Relationship Status Dates Dr. Scott Hull MD Primary Care Provider Active Start: August 27, 2024 Joe PORTILLO MD Attending Provider Active Start: August 27, 2024 Team Status: Active Member Role/Relationship Status Dates Dr. Scott Hull MD Primary Care Provider Active Start: September 24, 2024 Joe PORTILLO MD Attending Provider Active Start: September 24, 2024 Team Status: Inactive Member Role/Relationship Status Dates Dr. Scott Hull MD Primary Care Provider Active Start: September 02, 2024 End: September 02, 2024 Sara Irizarry NP HELP DESK OPERATOR-C Attending Provider Active Start: September 02, 2024 End: September 02, 2024 Team Status: Active Member Role/Relationship Status Dates Dr. Scott Hull MD Primary Care Provider Active Start: September 24, 2024 Joe PORTILLO MD Attending Provider Active Start: September 24, 2024 Reason for Visit (unrecogniz ed section and content) Reason Comments Shortness of Breath Reason Comments Cardiac Valve Problem Reason Comments Cardiac Valve Problem Patient seen in pr ivate OP procedure area for H + P update and education prior to scheduled TAVR Reason Comments OP Infusion Specialty Diagnoses / Procedures Referred By Contac t Referred To Contact Infusion Therapy Diagnoses Renal failure, unspecified chronicity Stenosis of prosthetic aortic valve, initial encounter Procedures ONCBCN THERAPY INFUSION APPOINTMENT REQUEST INFUSION TREATMENT Harjeet Huffman MD [address] [place] [address] [address] [place] [address] Referral ID Status Reason Start Date Expiration Date Visits Re quested Visits Authorized [id number] Closed 12/12/2023 12/06/2024 1 1 Specialty Diagnoses / Procedures Referred By Contac t Referred To Contact Radiology Diagnoses Nonrheumatic aortic valve stenosis Procedures CTA Angiogram TAVR Arlene Velez, COMMISSION SALES ASSOCIATE - MEDICAL ASSISTANT SECRETARY [address] [place] [address] Referral ID Status Reason Start Date Expiration Date Visits Re quested Visits Authorized [id number] Closed 12/07/2023 02/05/2024 1 1 Specialty Diagnoses / Procedures Referred By Roseline ervin Referred To Contact Diagnoses Nonrheumatic aortic valve stenosis Procedures TRANSCATHETER AORTIC VALVE REPLACEMENT, TRANSTHORACIC ECHOCARDIOGRAM TRANSCATHETER AORTIC VALVE REPLACEMENT, TRANSTHORACIC ECHOCARDIOGRAM Harjeet Huffman MD [address] [address] [facility] [address] [place] [address] Referral ID Status Reason Start Date Expiration Date Visits Re quested Visits Authorized [id number] 1 1 Reason Comments Cardiac Valve Problem One week post TAVR Reason Onset Date Comments Orders 01/04/2024 Scheduled Active and Recently Administ ered Medications (unrecognized section and content) Medication Order 12/24/2023 12/25/2023 12/26/2023 aspirin EC tablet 81 mg 81 mg, Oral, Daily, First dose on Mon12/26/23 at 0900, Do not crush, chew, or split. 0931 (Given - Provid er: Leticia Arshad, RN) ceFAZolin in dextrose 4% (Ancef) IVPB 2,000 mg (COMPLETED) 2,000 mg, IntraVENous, Administer over 30 Minutes, Once, On Mon12/25/23 at 0730, For 1 dose, Preprocedure, Administer within 1 hour prior to incision. Recommend to repeat in 3-4 hours after initial dose if still intra-op. premix bag, Suspected Indication (Select all that apply): Surgical Prophylaxis 0959 (Given - Provider: Edgar Warner APRN - VAULT KEEPER) dapagliflozin (Farxiga) tablet 10 mg 10 mg, Oral, Daily, First dose on Mon12/26/23 at 0900, Indications: Chronic Renal Disease 0930 (Given - Provid er: Leticia Arshad [...] Nasal Decolonization 1145 (Given - Provider: Mirella Kimball, RN)2006 (Given - Provider: Ellen Durant, RN) 0900 (Given - Provider: Leticia Arshad, RN) pantoprazole (ProtoNix) EC tablet 40 mg [...] JEREMIE Neri CRNA)1130 (Stopped - Provider: Mirella Kimball, LEW) PRN Medication Order 12/24/2023 12/25/2023 12/26/2023 acetaminophen [...] section and content) DATE CREATED AUTHOR 04/04/2024 [facility] DATE CREATED AUTHOR AUTHOR'S ORGANIZ ATION 10/06/2024 [facility] FOR RECORDS PERTAINING TO PATIENTS WHO [...] BE BASED ON THE PRIMARY CLINICAL RECORDS. [employer] [facility]. provides no warranty or guarantee of the accuracy or completeness of information in this document.
[2024-10-07 08:39] LABS: Cholesterol 111 mg/dL (<=200); Low Density Lipoprotein Calc. 54 mg/dL; Triglycerides 92 mg/dL; Very Low Density Lipoprotein 18 mg/dL (5-40); cholesterol:hdl ratio screen 2.90
[2024-10-07 08:45] LABS: AST(SGOT) 21 U/L (<=31); Alanine Aminotransfer ALT/SGPT < 5 U/L (<=34); Albumin, Serum 3.3 g/dL (3.4-4.8); Alkaline Phosphatase 64 U/L (35-104); Bilirubin, Direct 0.35 mg/dL (0.00-0.30); Globulin 3.2 g/dL (2.2-4.2)
== END ==
LOC: OLS.WHLEAS 05:00
PROVIDERS: PCP Family Medicine Geriatric Medicine; Visit Provider Internal Medicine
DX: N18.31 Chronic kidney disease, stage 3a (principal)
CPT/HCPCS: 36415; 80061; 80076; 83036

== ENCOUNTER → 2024-10-09 05:00 | Outpatient (REF) | payer MEDICARE, MEDICAID, SELFPAY ==
--- OUTSIDE RECORDS SUMMARY | 2024-10-09 04:36 | XMS RPT_ITS | CCD ---
Author Organization [facility] ion Partnership [facility] Care Team Providers Care Supervisor Seaming Name Role Phone Lucrecia Paige N Unavailable Lucrecia Paige N Unavailable Lucrecia Paige N Unavailable Yari Hernandez RN Unavailable Unavailable Yari Hernandez RN Unavailable Unavailable Paige Singer N Unavailable Shelly Ahuja Unavailable Unavailable SISI Gutierrez Michelle M Unavailable Yari Hernandez RN Unavailable Unavailable Alvarado Hull MD Primary Care Provider HARJEET HUFFMAN Attending Unavailable BITHARJEET PIERCE Referring Unavailable KURTIS, SCOTT-CHI Primary Care Unavailable HARJEET HUFFMAN Admitting Unavailable HARJEET HUFFMAN Attending Unavailable KURTIS, SCOTT-CHI Primary Care Unavailable THADDEUS MCKEON Attending Unavailable KURTIS, SCOTT-CHI Primary Care Unavailable MÓNICA HOPKINS Attending Unavailable KURTIS, SCOTT-CHI Primary Care Unavailable [...] Attending Provider Eriberto Lugo Attending Provider Kurtis GUNN, Dr. Scott Sabillon Primary Care Provider Joe Sanchez MD Attending Provider Unavailagustin Hull MD, Dr. Scott Sabillon Primary Care Provider Daniel GUNN, Joe Attending Provider Unavailagustin Sanchez MD, Dr. Diaz Attending Provider [phone] Kurtis GUNN, Dr. Scott Sabillon Primary Care Provider [phone] Joe Sanchez MD Attending Provider Unavailagustin Sanchez MD, Joe Referring Provider Unavailagustin Hull MD, Dr. Scott Sabillon Primary Care Provider Daniel GUNN, Joe Attending Provider Unavailagustin Sanchez MD, Dr. Diaz Attending Provider [phone] Juan C STEM TEACHER-CSara Attending Provider Kurtis, Scott Chi Primary Care Unavailable Joe Posey Attending UnavailSudarshan Lang Consulting Unavailable Kurtis, Scott Chi Primary Care Unavailable Ricardo Viera Attending Unavailable Maribel Vizcarra Admitting Unavailable Adeli, Amir Consulting Unavailable Hinduja, Alla Consulting Unavailable Rinku, Carolina Consulting Unavailable Zha, Micki Consulting Unavailable Mu, Rommel Consulting Unavailable Vicente, Debbie Consulting Unavailable Bittar, Flash Consulting Unavailable Preet lCark Consulting Unavailable Griffin Simon Consulting Unavailable Amanda Bustamante Consulting Unavailable Eriberto Eddy Consulting Unavailable Lucy Muñoz Consulting Unavailable Ridha, Mohamed Consulting Unavailable Zaghlosherinh, Mhd Walter Consulting UnavailHarjeet Garza Consulting Unavailable Sharpe, Rami Consulting Unavailable Deirdre, Peña Consulting Unavailable Penelope Jama Consulting Unavailable Hanvicki, Yousef Consulting Unavailable Maribel Vizcarra Consulting Unavailable Kurtis, Scott Chi Primary Care Unavailable Oleghe Joe PORTILLO Attending Unavailabl e Kurtis, Scott Chi Primary Care Unavailable Oleghe Joaquin PORTILLObe Attending Unavailabl e Kurtis, Scott Chi Referring Unavailable Kurtis, Scott Chi Primary Care Unavailable Mónica Sterling Attending Unavail able Kurtis, Scott Chi Primary Care Unavailable Kurtis, Scott Chi Referring Unavailable Dez, Suzan Attending Unavailable Kurtis, Scott Chi Primary Care Unavailable Oleghe OLS, Efewongbe Attending Unavailabl e Kurtis, Scott Chi Primary Care Unavailable Oleghe OLS, Efewongbe Attending Unavailabl e Kurtis, Scott Chi Primary Care Unavailable Mónica Hopkins Referring Unavailable SandeepMónica nicole Attending Unavailable Kurtis, Scott Chi Primary Care Unavailable Dez, Suzan Referring Unavailable Dez, Suzan Attending Unavailable Kurtis, Scott Chi Primary Care Unavailable Oleghe OLS, Efewongbe Attending Unavailabl e Kurtis, Scott Chi Primary Care Unavailable Oleghe OLS, Efewongbe Attending Unavailabl e Kurtis, Scott Chi Primary Care Unavailable Oleghe OLS, Efewongbe Referring Unavailabl e Oleghe OLS, Efewongbe Attending Unavailabl e Oleghe [...] e Kurtis, Scott Chi Primary Care Unavailable Dez, Suzan Attending Unavailable Kurtis, Scott Chi Primary Care Unavailable Oleghe OLS, Efewongbe Attending Unavailabl e Kurtis, Scott Chi Primary Care Unavailable White, Maribel L Admitting Unavailable White, Maribel L Consulting Unavailable White, Maribel L Attending Unavailable Kurtis, Scott Chi Primary Care Unavailable Ricardo Viera Attending Unavailable Sudarshan Sandoval Consulting Unavailable White, Maribel L Admitting Unavailable Adeli, Amir Consulting Unavailable Hinduja, Alla Consulting Unavailable Rinku, Carolina Consulting Unavailable Manjula, Micki Consulting Unavailable Mu, Rommel Consulting Unavailable Vicente, Debbie Consulting Unavailable Flash Blackwell Consulting Unavailable Preet Clark Consulting Unavailable Griffin Simon Consulting Unavailable Amanda Bustamante Consulting Unavailable Eriberto Eddy Consulting Unavailable Lucy Muñoz Consulting Unavailable George Parker Consulting Unavailable Shikha Olsen Consulting UnavailHarjeet Garza Consulting Unavailable Tiffany Sharpe Consulting Unavailable Peña Gilmore Consulting Unavailable Penelope Jama Consulting Unavailable Shawn Agrawal Consulting Unavailable Maribel Vizcarra Consulting Unavailable Ricardo Viera Consulting Unavailable Kurtis, Scott Chi Primary Care Unavailable [place] STEM TEACHER, Sara Attending Unavailable Kurtis, Scott Chi Primary Care Unavailable [place] STEM TEACHER, Sara Attending Unavailable Oleghe, Efewongbe Attending Unavailable Kurtis, Scott Chi Primary Care Unavailable Eriberto Lugo Attending Unavailable Kurtis, Scott Chi Primary Care Unavailable Oleghe, Efewongbe Attending Unavailable Kurtis, Scott Chi Primary Care Unavailable Kurtis, Scott Chi Referring Unavailable Kurtis, Scott Chi Primary Care Unavailable Mis Wagner Attending Unavailable Kurtis, Scott Chi Primary Care Unavailable [place] STEM TEACHER, Sara Attending Unavailable Kurtis, Scott Chi Primary Care Unavailable [place] STEM TEACHER, Sara Attending Unavailable Kurtis, Scott Chi Primary Care Unavailable Oleghe, Efewongbe Attending Unavailable Kurtis, Scott Chi Primary Care Unavailable Kurtis, Scott Chi Referring Unavailable Suzan Garces Attending Unavailable Kurtis, Soctt Chi Primary Care Unavailable Oleghe, Efewongbe Attending Unavailable Kurtis, Scott Chi Primary Care Unavailable [place] STEM TEACHER, Sara Attending Unavailable Kurtis, Scott Chi Primary Care Unavailable [place] STEM TEACHER, Sara Attending Unavailable Kurtis, Scott Chi Primary [...] Suzan Referring Unavailable Dez, Suzan Attending Unavailable OleJoe Johnson Attending Unavailabl e Kurtis, Scott Chi Primary Care Unavailable OleYudi Johnsonongbe Referring Unavailabl e Yudi Poseyongbe Attending Unavailabl e Kurtis, Scott Chi Primary Care Unavailable Allergies Allergy Classification Reported Allergen(s) Allergy Type Date of Onset Reaction(s) Facility (20 sources) Angiotensin Converting Enzyme (Landon) Inhibitors; Translations: [LANDON Inhibitors] drug allergy 11-06-19 16 Other [facility] Work Phone: (12 sources) Lisinopril Drug Allergy 03-04-20 [facility] (17 sources) Lisinopril Propensity to adverse reactions 11-14-19 [facility] (17 sources) sacubitril Drug Allergy 11-14-19 [facility] (17 sources) Valsartan Propensity to adverse reactions 11-14-19 [facility] (14 sources) Iodinated Contrast Media Propensity to adverse reactions 12-12-19 [facility] (7 sources) dapagliflozin Drug Allergy 02-07-20 [facility] (7 sources) sacubitril Drug Allergy 02-07-20 [facility] (7 sources) Triiodobenzoic Acids Allergy to substance 02-07-20 [facility] Comment on above: hives, red face and itching (7 sources) valsartan Drug Allergy 02-07-20 [facility] (1 source) dapagliflozin Drug Allergy 02-07-20 [facility] (1 source) Lisinopril Drug Allergy 02-07-20 [facility] (1 source) sacubitril Drug Allergy 02-07-20 [facility] (1 source) valsartan Drug Allergy 02-07-20 [facility] (1 source) Iodinated Contrast Media Drug allergy (disorder) 02-07-20 [facility] Medications Current Medications Medication Drug Class(es) [...] Active 40 mg PO AT BEDTIME 0 0 January 10, 2024 12:00am dapagliflozin 10 mg oral tablet (20 sources) Sodium-Glucose Cotransporter 2 Inhibitor Start: 11-08-2023 End: 12-26-2023 take 1 tablet by mouth once daily Dapagliflozin Propanediol (Farxiga) 10 mg tablet Active 10 mg PO DAILY 90 November 08, 2023 12:00am febuxostat 40 mg [...] mg tablet Active 40 mg PO DAILY 30 November 10, 2023 11:35am On Hold: Resume [...] tablet by mouth twice daily PANTOPRAZOLE SODIUM [id number] Gerald Barragan MD potassium chloride 20 meq [...] mg tablet Active 25 mg PO DAILY 90 3 November 08, 2023 12:54pm On Hold: Resume [...] CAPS One tablet by mouth daily CELECOXIB [id number] Mónica Gutierrez PA-C diphenhydrAMINE hydrochloride 25 mg oral tablet (2 sources) Histamine-1 Receptor Antagonist Start: 12-25-2023 End: 12-25-2023 take 50 mg by mouth once 50 mg, Oral, Once, On Mon12/25/23 at 0730, For 1 dose, Preprocedure docusate sodium 50 mg / sennosides, care home 8.6 mg oral tablet (12 sources) [...] HOURS NEEDED as needed for Nausea/Vomiting 20 0 December 27, 2017 7:16am January 02, 2018 12:00am January 03, 2018 12:08am oxyCODONE hydrochloride 5 mg oral tablet (12 sources) Opioid Agonist Start: 12-27-2017 End: 01-03-2018 take 5-10 mg by mouth every four hours as needed for pain Oxycodone 5 MG tablet Discontinued 5 - 10 mg PO EVERY 4 HOURS NEEDED as needed for Mod-Severe Pain (4-12/27) 7 0 December 27, 2017 12:00am January 02, 2018 [...] #25 Medtronic Porcin e Valve 01/22/2013 @ [facility] Late effects of cerebrovascular disease (8 [...] sources) Long-term current use of anticoagulant; Translations: [USP (current) use of anticoagulants] 11-22-2023 Episodic Other [...] above: 11/03/[address] Jeyson sánchez @ [facility], and 01/18/2013 per Kahlil Burgess [...] aftercare (18 sources) Polypharmacy ; Translations: [Other rat 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 (current) drug therapy] Onset: 11-21-2023 11-21-2023 Episodic Other aftercare (2 sources) Other half-way (current) drug therapy; Translations: [Other rat 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 (current) drug therapy] Onset: 11-21-2023 Episodic Other [...] Auto (Unsp spec) [#/Vol] 1.76 10*3/uL 0.83-4.51 [facility] Absolute neutrophil countOrd ered By: Joe Sanchez on 09-24-2024 Neutrophils (Bld) [#/Vol] 4.6 10*3/uL 2.0-7.7 [facility] Anion gap in Serum or Plasma Ordered By: Joe Sanchez on 09-24-2024 Anion gap [Moles/Vol] 13 mmol/L 5-15 [facility] Automated lymphocyte count a s percentage of total leukocytesOrdered By: Joe Sanchez on 09-24-2024 Lymphocytes/100 WBC Auto (Unsp spec) 23.7 % 19-41 [facility] BUN/creatinine ratioOrdered By: Joe Sanchez on 09-24-2024 Urea nitrogen/Creatinine [Mass ratio] 15.6 mg/mg 10-20 [facility] Basophil percentageOrdered B y: Joe Sanchez on 09-24-2024 Basophils/100 WBC (Bld) 1.3 % High 0-1 [facility] Carbon dioxide, total [Moles /volume] in Central venous bloodOrdered By: Joe Sanchez on 09-24-2024 CO2 [Moles/Vol] 26.0 mmol/L 21.0-32.0 [facility] Chloride assayOrdered By: Lluvia Sanchez on 09-24-2024 Chloride [Moles/Vol] 99 mmol/L 98-108 [facility] Eosinophil percentageOrdered By: Joe Sanchez on 09-24-2024 Eosinophils/100 WBC (Bld) 1.7 % 0-5 [facility] Erythrocyte distribution wid th ratioOrdered By: Joe Sanchez on 09-24-2024 Erythrocyte distribution width (RBC) [Ratio] 13.6 % 11.6-14.6 [facility] Erythrocyte distribution wid th standard deviationOrdered By: Joe Sanchez on 09-24-2024 Erythrocyte distribution width (RBC) [Ratio] 48.6 fl High 35.1-43.9 [facility] Glomerular filtration rate ( GFR) estimation/1.73 sq m using serum, plasma, or whole bOrdered By: Joe Sanchez on 09-24-2024 GFR/1.73 sq M.predicted among non-blacks MDRD (S/P/Bld) [Vol rate/Area] 28 mL/min/{1.73_m2} Low >60 [facility] Comment on above: mL/min/1.73m2 CKD-EP I Creatinine Equation (2020) Hematocrit Auto (Bld) [Volum e fraction]Ordered By: Joe Sanchez on 09-24-2024 Hematocrit (Bld) [Volume fraction] 42.5 % 37-47 [facility] Hemoglobin measurementOrdere d By: Joe Sanchez on 09-24-2024 Hemoglobin (Bld) [Mass/Vol] 14.1 g/dL 12.0-15.0 [facility] Immature granulocytes/100 WB C Auto (Bld)Ordered By: Joe Sanchez on 09-24-2024 Immature granulocytes/100 WBC (Bld) 0.700 % 0.0-0.9 [facility] Comment on above: IG% - Immature Granu locytes (promyelocytes, myelocytes and metamyelocytes) > 1% indicates that a LEFT SHIFT is Present. MCV (mean corpuscular volume ) determinationOrdered By: Joe Sanchez on 09-24-2024 MCV (RBC) [Entitic vol] 97.5 fL 81-99 [facility] Mean corpuscular hemoglobin (MCH) determinationOrdered By: Joe Sanchez on 09-24-2024 MCH (RBC) [Entitic mass] 32.3 pg High 27.0-32.0 [facility] Mean corpuscular hemoglobin concentration (MCHC) determinationOrdered By: Joe Sanchez on 09-24-2024 MCHC (RBC) [Mass/Vol] 33.2 g/dL 32-36 [facility] Mean platelet volume determi nationOrdered By: Joe Sanchez on 09-24-2024 Platelet mean volume (Bld) [Entitic vol] 12.3 fL High 6.2-12.0 [facility] Monocyte percentageOrdered B y: Joe Sanchez on 09-24-2024 Monocytes/100 WBC (Bld) 10.8 % High 0-10 [facility] Neutrophil percentageOrdered By: Joe Sanchez on 09-24-2024 Neutrophils/100 WBC (Bld) 61.8 % 47-70 [facility] Nucleated red blood cell per centageOrdered By: Joe Sanchez on 09-24-2024 Nucleated RBC/100 WBC (Bld) [Ratio] 0 % 0-5 [facility] Platelet countOrdered By: Lluvia genelynnette Morrisawaismilton on 09-24-2024 Platelets (Bld) [#/Vol] 204 10*3/uL 150-450 [facility] Potassium measurement (mass/ volume)Ordered By: Joe Sanchez on 09-24-2024 Potassium (Unsp spec) [Mass/Vol] 4.3 mmol/L 3.3-5.1 [facility] Comment on above: Hemolysis present, R esults could be affected. RBC Auto (Bld) [#/Vol]Ordere d By: Joe Sanchez on 09-24-2024 RBC (Bld) [#/Vol] 4.36 10*6/uL 4.2-5.4 [facility] Serum creatinine measurement (mass/volume)Ordered By: Joe Sanchez on 09-24-2024 Creatinine [Mass/Vol] 1.76 mg/dL High 0.70-1.20 [facility] Serum glucose measurement (m ass/volume)Ordered By: Joe Sanchez on 09-24-2024 Glucose [Mass/Vol] 86 mg/dL 70-99 [facility] Serum or plasma calcium leah urement (mass/volume)Ordered By: Joe Sanchez on 09-24-2024 Calcium [Mass/Vol] 9.6 mg/dL 7.6-11.0 [facility] Serum or plasma urea nitroge n measurement (mass/volume)Ordered By: Joe Sanchez on 09-24-2024 Urea nitrogen [Mass/Vol] 28 mg/dL High 4-19 [facility] Sodium levelOrdered By: Yudi kirbydrew Daniel on 09-24-2024 Sodium [Moles/Vol] 139 mmol/L 133-145 [facility] White blood cell (WBC) count Ordered By: Joe Sanchez on 09-24-2024 WBC (Bld) [#/Vol] 7.4 10*3/uL 4.4-11.0 [facility] Absolute lymphocyte countOrd ered By: Joe Sanchez on 08-27-2024 Lymphocytes Auto (Unsp spec) [#/Vol] 1.87 10*3/uL 0.83-4.51 [facility] Absolute neutrophil countOrd ered By: Joe Morrisawaise on 08-27-2024 Neutrophils (Bld) [#/Vol] 4.2 10*3/uL 2.0-7.7 [facility] Anion gap in Serum or Plasma Ordered By: Joe Sanchez on 08-27-2024 Anion gap [Moles/Vol] 12 mmol/L 5-15 [facility] Automated lymphocyte count a s percentage of total leukocytesOrdered By: Joe Sanchez on 08-27-2024 Lymphocytes/100 WBC Auto (Unsp spec) 27.1 % 19-41 [facility] BUN/creatinine ratioOrdered By: Yudiaustinlynnette Sanchez on 08-27-2024 Urea nitrogen/Creatinine [Mass ratio] 15.0 mg/mg 10-20 [facility] Basophil percentageOrdered B y: Joe Sanchez on 08-27-2024 Basophils/100 WBC (Bld) 1.0 % 0-1 [facility] Carbon dioxide, total [Moles /volume] in Central venous bloodOrdered By: Joe Sanchez on 08-27-2024 CO2 [Moles/Vol] 27.3 mmol/L 21.0-32.0 [facility] Chloride assayOrdered By: Lluvia Sanchez on 08-27-2024 Chloride [Moles/Vol] 99 mmol/L 98-108 [facility] Eosinophil percentageOrdered By: Joe Chaue on 08-27-2024 Eosinophils/100 WBC (Bld) 2.0 % 0-5 [facility] Erythrocyte distribution wid th ratioOrdered By: Joauqinbe Kandie on 08-27-2024 Erythrocyte distribution width (RBC) [Ratio] 13.7 % 11.6-14.6 [facility] Erythrocyte distribution wid th standard deviationOrdered By: Joe Chaue on 08-27-2024 Erythrocyte distribution width (RBC) [Ratio] 49.1 fl High 35.1-43.9 [facility] Glomerular filtration rate ( GFR) estimation/1.73 sq m using serum, plasma, or whole bOrdered By: Joe Sanchez on 08-27-2024 GFR/1.73 sq M.predicted among non-blacks MDRD (S/P/Bld) [Vol rate/Area] 29 mL/min/{1.73_m2} Low >60 [facility] Comment on above: mL/min/1.73m2 CKD-EP I Creatinine Equation (2020) Hematocrit Auto (Bld) [Volum e fraction]Ordered By: Joe Sanchez on 08-27-2024 Hematocrit (Bld) [Volume fraction] 42.3 % 37-47 [facility] Hemoglobin measurementOrdere d By: Joe Sanchez on 08-27-2024 Hemoglobin (Bld) [Mass/Vol] 13.8 g/dL 12.0-15.0 [facility] Immature granulocytes/100 WB C Auto (Bld)Ordered By: Joe Sanchez on 08-27-2024 Immature granulocytes/100 WBC (Bld) 0.400 % 0.0-0.9 [facility] Comment on above: IG% - Immature Granu locytes (promyelocytes, myelocytes and metamyelocytes) > 1% indicates that a LEFT SHIFT is Present. MCV (mean corpuscular volume ) determinationOrdered By: Joe Sanchez on 08-27-2024 MCV (RBC) [Entitic vol] 96.8 fL 81-99 [facility] Mean corpuscular hemoglobin (MCH) determinationOrdered By: Joe Sanchez on 08-27-2024 MCH (RBC) [Entitic mass] 31.6 pg 27.0-32.0 [facility] Mean corpuscular hemoglobin concentration (MCHC) determinationOrdered By: Joe Sanchez 08-27-2024 MCHC (RBC) [Mass/Vol] 32.6 g/dL 32-36 [facility] Mean platelet volume determi nationOrdered By: Joe Sanchez 08-27-2024 Platelet mean volume (Bld) [Entitic vol] 12.5 fL High 6.2-12.0 [facility] Monocyte percentageOrdered B y: Lluviaclaudiomelissalynnette Morrisawaismilton on 08-27-2024 Monocytes/100 WBC (Bld) 9.4 % 0-10 [facility] Neutrophil percentageOrdered By: Joe Morrisawaismilton on 08-27-2024 Neutrophils/100 WBC (Bld) 60.1 % 47-70 [facility] Nucleated red blood cell per centageOrdered By: Joe Morrisawaismilton on 08-27-2024 Nucleated RBC/100 WBC (Bld) [Ratio] 0 % 0-5 [facility] Platelet countOrdered By: Lluvia genelynnette Sanchez on 08-27-2024 Platelets (Bld) [#/Vol] 196 10*3/uL 150-450 [facility] Potassium measurement (mass/ volume)Ordered By: Joe Sanchez on 08-27-2024 Potassium (Unsp spec) [Mass/Vol] 4.1 mmol/L 3.3-5.1 [facility] RBC Auto (Bld) [#/Vol]Ordere d By: Joe Sanchez on 08-27-2024 RBC (Bld) [#/Vol] 4.37 10*6/uL 4.2-5.4 [facility] Serum creatinine measurement (mass/volume)Ordered By: Joe Sanchez on 08-27-2024 Creatinine [Mass/Vol] 1.74 mg/dL High 0.70-1.20 [facility] Serum glucose measurement (m ass/volume)Ordered By: Joe Sanchez on 08-27-2024 Glucose [Mass/Vol] 103 mg/dL High 70-99 [facility] Serum or plasma calcium leah urement (mass/volume)Ordered By: Joe Sanchez on 08-27-2024 Calcium [Mass/Vol] 9.5 mg/dL 7.6-11.0 [facility] Serum or plasma urea nitroge n measurement (mass/volume)Ordered By: Joe Sanchez on 08-27-2024 Urea nitrogen [Mass/Vol] 26 mg/dL High 4-19 [facility] Sodium levelOrdered By: Yudi Sanchez on 08-27-2024 Sodium [Moles/Vol] 138 mmol/L 133-145 [facility] White blood cell (WBC) count Ordered By: Yudimelissalynnette Sanchez on 08-27-2024 WBC (Bld) [#/Vol] 6.9 10*3/uL 4.4-11.0 [facility] Absolute lymphocyte countOrd ered By: Joe Sanchez on 07-30-2024 Lymphocytes Auto (Unsp spec) [#/Vol] 1.85 10*3/uL 0.83-4.51 [facility] Absolute neutrophil countOrd ered By: Joe Sanchez on 07-30-2024 Neutrophils (Bld) [#/Vol] 3.8 10*3/uL 2.0-7.7 [facility] Anion gap in Serum or Plasma Ordered By: Joe Sanchez on 07-30-2024 Anion gap [Moles/Vol] 12 mmol/L 5-15 [facility] Automated lymphocyte count a s percentage of total leukocytesOrdered By: Joe Sanchez on 07-30-2024 Lymphocytes/100 WBC Auto (Unsp spec) 28.5 % 19-41 [facility] BUN/creatinine ratioOrdered By: Joe Sanchez on 07-30-2024 Urea nitrogen/Creatinine [Mass ratio] 14.9 mg/mg 10-20 [facility] Basophil percentageOrdered B y: Joe Sanchez on 07-30-2024 Basophils/100 WBC (Bld) 1.1 % High 0-1 [facility] Carbon dioxide, total [Moles /volume] in Central venous bloodOrdered By: Joe Sanchez on 07-30-2024 CO2 [Moles/Vol] 26.5 mmol/L 21.0-32.0 [facility] Chloride assayOrdered By: Lluvia Sanchez on 07-30-2024 Chloride [Moles/Vol] 100 mmol/L 98-108 [facility] Eosinophil percentageOrdered By: Joe Sanchez on 07-30-2024 Eosinophils/100 WBC (Bld) 1.8 % 0-5 [facility] Erythrocyte distribution wid th ratioOrdered By: Joe Sanchez on 07-30-2024 Erythrocyte distribution width (RBC) [Ratio] 14.2 % 11.6-14.6 [facility] Erythrocyte distribution wid th standard deviationOrdered By: Joe Sanchez on 07-30-2024 Erythrocyte distribution width (RBC) [Ratio] 52.9 fl High 35.1-43.9 [facility] Glomerular filtration rate ( GFR) estimation/1.73 sq m using serum, plasma, or whole bOrdered By: Joe Sanchez on 07-30-2024 GFR/1.73 sq M.predicted among non-blacks MDRD (S/P/Bld) [Vol rate/Area] 26 mL/min/{1.73_m2} Low >60 [facility] Comment on above: mL/min/1.73m2 CKD-EP I Creatinine Equation (2020) Hematocrit Auto (Bld) [Volum e fraction]Ordered By: Yudiaustinlynnette Sanchez on 07-30-2024 Hematocrit (Bld) [Volume fraction] 41.4 % 37-47 [facility] Hemoglobin measurementOrdere d By: Joe Sanchez on 07-30-2024 Hemoglobin (Bld) [Mass/Vol] 13.5 g/dL 12.0-15.0 [facility] Immature granulocytes/100 WB C Auto (Bld)Ordered By: Joe Sanchez on 07-30-2024 Immature granulocytes/100 WBC (Bld) 0.800 % 0.0-0.9 [facility] Comment on above: IG% - Immature Granu locytes (promyelocytes, myelocytes and metamyelocytes) > 1% indicates that a LEFT SHIFT is Present. MCV (mean corpuscular volume ) determinationOrdered By: Joe Sanchez on 07-30-2024 MCV (RBC) [Entitic vol] 102.7 fL High 81-99 [facility] Mean corpuscular hemoglobin (MCH) determinationOrdered By: Joe Sanchez 07-30-2024 MCH (RBC) [Entitic mass] 33.5 pg High 27.0-32.0 [facility] Mean corpuscular hemoglobin concentration (MCHC) determinationOrdered By: Joe Sanchez on 07-30-2024 MCHC (RBC) [Mass/Vol] 32.6 g/dL 32-36 [facility] Mean platelet volume determi nationOrdered By: Joe Sanchez on 07-30-2024 Platelet mean volume (Bld) [Entitic vol] 11.8 fL 6.2-12.0 [facility] Monocyte percentageOrdered B y: Joe Sanchez on 07-30-2024 Monocytes/100 WBC (Bld) 9.2 % 0-10 [facility] Neutrophil percentageOrdered By: Joe Sanchez on 07-30-2024 Neutrophils/100 WBC (Bld) 58.6 % 47-70 [facility] Nucleated red blood cell per centageOrdered By: Joe Sanchez on 07-30-2024 Nucleated RBC/100 WBC (Bld) [Ratio] 0 % 0-5 [facility] Platelet countOrdered By: Lluvia Sanchez on 07-30-2024 Platelets (Bld) [#/Vol] 167 10*3/uL 150-450 [facility] Potassium measurement (mass/ volume)Ordered By: Joe Sanchez on 07-30-2024 Potassium (Unsp spec) [Mass/Vol] 4.3 mmol/L 3.3-5.1 [facility] Comment on above: Hemolysis present, R esults could be affected. RBC Auto (Bld) [#/Vol]Ordere d By: Joe Sanchez on 07-30-2024 RBC (Bld) [#/Vol] 4.03 10*6/uL Low 4.2-5.4 [facility] Serum creatinine measurement (mass/volume)Ordered By: Joe Sanchez on 07-30-2024 Creatinine [Mass/Vol] 1.87 mg/dL High 0.70-1.20 [facility] Serum glucose measurement (m ass/volume)Ordered By: Joe Sanchez on 07-30-2024 Glucose [Mass/Vol] 89 mg/dL 70-99 [facility] Serum or plasma calcium leah urement (mass/volume)Ordered By: Joe Sanchez on 07-30-2024 Calcium [Mass/Vol] 9.4 mg/dL 7.6-11.0 [facility] Serum or plasma urea nitroge n measurement (mass/volume)Ordered By: Joe Sanchez on 07-30-2024 Urea nitrogen [Mass/Vol] 28 mg/dL High 4-19 [facility] Sodium levelOrdered By: Yudi Sanchez on 07-30-2024 Sodium [Moles/Vol] 138 mmol/L 133-145 [facility] White blood cell (WBC) count Ordered By: Joe Sanchez on 07-30-2024 WBC (Bld) [#/Vol] 6.5 10*3/uL 4.4-11.0 [facility] Bilirubin directOrdered By: Joe Sanchez on 07-15-2024 Bilirubin.direct [Mass/Vol] 0.26 mg/dL 0.00-0.30 [facility] Bilirubin, totalOrdered By: Joe Sanchez on 07-15-2024 Bilirubin [Mass/Vol] 0.62 mg/dL 0.00-1.30 [facility] Calculated very low density lipoprotein (VLDL) cholesterol measurementOrdered By: Joe Sanchez on 07-15-2024 Calculated very low density lipoprotein (VLDL) cholesterol measurement 20 mg/dL 5-40 [facility] Hemoglobin A1c percentageOrd ered By: Joe Sanchez on 07-15-2024 HbA1c (Bld) [Mass fraction] 5.5 % <5.7 [facility] Comment on above: Normal < 5.7 % Predi abetic 5.7 - 6.4 % Diabetic >or= 6.5 % Please note range changes. LDL calc ser/plasOrdered By: Joe Sanchez on 07-15-2024 Cholesterol in LDL [Mass/Vol] 86 mg/dL [facility] Comment on above: Jgcjfeubhz=830-953 m g/dL & Higher Sowv=719 mg/dL or greater Laboratory - Chemistry and C hemistry - challengeOrdered By: Joe Sanchez on 07-15-2024 AST [Catalytic activity/Vol] 19 U/L <32 [facility] Screening total cholesterol/ high density lipoprotein (HDL) cholesterol ratioOrdered By: Joe Sanchez on 07-15-2024 Cholesterol.total/Shannon sterol in HDL [Mass ratio] 3.91 {ratio} [facility] Serum globulin measurementOr dered By: Joe Sanchez on 07-15-2024 Globulin (S) [Mass/Vol] 3.2 g/dL 2.2-4.2 [facility] Serum or plasma alanine kilpatrick otransferase (ALT) measurementOrdered By: Joe Sanchez on 07-15-2024 ALT [Catalytic activity/Vol] 7 U/L <35 [facility] Serum or plasma albumin leah urement (mass/volume)Ordered By: Joe Sanchez 07-15-2024 Albumin [Mass/Vol] 3.4 g/dL 3.4-4.8 [facility] Serum or plasma alkaline kirti sphatase measurementOrdered By: Joe Sanchez 07-15-2024 ALP [Catalytic activity/Vol] 67 U/L 35-104 [facility] Serum or plasma cholesterol in HDL measurement (mass/volume)Ordered By: Joe Sanchez 07-15-2024 Cholesterol in HDL [Mass/Vol] 36 mg/dL Low >40 [facility] Comment on above: National Cholesterol Education Program (NCEP) guidelines:<40 mg/dL: Low HDL-cholesterol (major risk factor for CHD)>= 60 mg/dL: High HDL-cholesterol (negative risk factor for CHD)HDL-cholesterol is affected by a number of factors, e.g. smoking, exercise, hormones, sex and age. Serum or plasma cholesterol measurement (mass/volume)Ordered By: Joe Sanchez 07-15-2024 Cholesterol [Mass/Vol] 142 mg/dL <201 [facility] [place] Comment on above: Cholesterol level, D esirable <200 mg/dLBorderline high cholesterol 200-239 mg/dLHigh cholesterol >=240 mg/dLRecommendations of the NCEP Adult Treatment Panel for the following risk-cutoff thresholds for the [place] population. Total proteinOrdered By: Constantin Sanchez 07-15-2024 Protein [Mass/Vol] 6.7 g/dL 5.9-8.4 [facility] Triglycerides measurementOrd ered By: Joe Sanchez on 07-15-2024 Triglyceride [Mass/Vol] 101 mg/dL <199 [facility] Comment on above: The drugs N-Acetylcy steine and Metamizole may falsely depress this assay. Normal range: <150 mg/dLBorderline High: 150-199 mg/dLHigh: 200-499 mg/dLVery High: >500 mg/dL Absolute lymphocyte countOrd ered By: Joe Sanchez on 07-02-2024 Lymphocytes Auto (Unsp spec) [#/Vol] 1.69 10*3/uL 0.83-4.51 [facility] Absolute neutrophil countOrd ered By: Joe Sanchez on 07-02-2024 Neutrophils (Bld) [#/Vol] 4.5 10*3/uL 2.0-7.7 [facility] Anion gap in Serum or Plasma Ordered By: Joe Sanchez on 07-02-2024 Anion gap [Moles/Vol] 13 mmol/L 5-15 [facility] Automated lymphocyte count a s percentage of total leukocytesOrdered By: Joe Sanchez on 07-02-2024 Lymphocytes/100 WBC Auto (Unsp spec) 23.8 % 19-41 [facility] BUN/creatinine ratioOrdered By: Joe Sanchez on 07-02-2024 Urea nitrogen/Creatinine [Mass ratio] 16.6 mg/mg 10-20 [facility] Basophil percentageOrdered B y: Joe Sanchez on 07-02-2024 Basophils/100 WBC (Bld) 1.0 % 0-1 [facility] Carbon dioxide, total [Moles /volume] in Central venous bloodOrdered By: Joe Sanchez on 07-02-2024 CO2 [Moles/Vol] 26.0 mmol/L 21.0-32.0 [facility] Chloride assayOrdered By: Lluvia Sanchez on 07-02-2024 Chloride [Moles/Vol] 99 mmol/L 98-108 [facility] Eosinophil percentageOrdered By: Joe Sanchez on 07-02-2024 Eosinophils/100 WBC (Bld) 1.7 % 0-5 [facility] Erythrocyte distribution wid th ratioOrdered By: Joe Sanchez on 07-02-2024 Erythrocyte distribution width (RBC) [Ratio] 13.5 % 11.6-14.6 [facility] Erythrocyte distribution wid th standard deviationOrdered By: Joe Sanchez on 07-02-2024 Erythrocyte distribution width (RBC) [Ratio] 47.8 fl High 35.1-43.9 [facility] Glomerular filtration rate ( GFR) estimation/1.73 sq m using serum, plasma, or whole bOrdered By: [facility] on 07-02-2024 GFR/1.73 sq M.predicted among non-blacks MDRD (S/P/Bld) [Vol rate/Area] 28 mL/min/{1.73_m2} Low >60 [facility] Comment on above: mL/min/1.73m2 CKD-EP I Creatinine Equation (2020) Hematocrit Auto (Bld) [Volum e fraction]Ordered By: Joe Sanchez on 07-02-2024 Hematocrit (Bld) [Volume fraction] 41.2 % 37-47 [facility] Hemoglobin measurementOrdere d By: Joe Sanchez 07-02-2024 Hemoglobin (Bld) [Mass/Vol] 13.8 g/dL 12.0-15.0 [facility] Immature granulocytes/100 WB C Auto (Bld)Ordered By: Joe Sanchez 07-02-2024 Immature granulocytes/100 WBC (Bld) 0.600 % 0.0-0.9 [facility] Comment on above: IG% - Immature Granu locytes (promyelocytes, myelocytes and metamyelocytes) > 1% indicates that a LEFT SHIFT is Present. MCV (mean corpuscular volume ) determinationOrdered By: Joe Sanchez 07-02-2024 MCV (RBC) [Entitic vol] 95.8 fL 81-99 [facility] Mean corpuscular hemoglobin (MCH) determinationOrdered By: Joe Sanchez 07-02-2024 MCH (RBC) [Entitic mass] 32.1 pg High 27.0-32.0 [facility] Mean corpuscular hemoglobin concentration (MCHC) determinationOrdered By: Lluviaclaudiomelissalynnette Morrisawaismilton on 07-02-2024 MCHC (RBC) [Mass/Vol] 33.5 g/dL 32-36 [facility] Mean platelet volume determi nationOrdered By: Joe Arturoawaismilton on 07-02-2024 Platelet mean volume (Bld) [Entitic vol] 12.6 fL High 6.2-12.0 [facility] Monocyte percentageOrdered B y: Joe Arturoawaismilton on 07-02-2024 Monocytes/100 WBC (Bld) 9.8 % 0-10 [facility] Neutrophil percentageOrdered By: Lluviaclaudioaustinlynnette Arturoawaismilton on 07-02-2024 Neutrophils/100 WBC (Bld) 63.1 % 47-70 [facility] Nucleated red blood cell per centageOrdered By: Lluviaclaudiokayleigh Arturoawaismilton on 07-02-2024 Nucleated RBC/100 WBC (Bld) [Ratio] 0 % 0-5 [facility] Platelet countOrdered By: Lluvia montez Arturoawaismilton on 07-02-2024 Platelets (Bld) [#/Vol] 210 10*3/uL 150-450 [facility] Potassium measurement (mass/ volume)Ordered By: Lluviaclaudiomelissalynnette Morrisawaismilton on 07-02-2024 Potassium (Unsp spec) [Mass/Vol] 4.4 mmol/L 3.3-5.1 [facility] Comment on above: Hemolysis present, R esults could be affected. RBC Auto (Bld) [#/Vol]Ordere d By: Joaquinlynnette Sanchez on 07-02-2024 RBC (Bld) [#/Vol] 4.30 10*6/uL 4.2-5.4 [facility] Serum creatinine measurement (mass/volume)Ordered By: Lluviamontez Sanchez on 07-02-2024 Creatinine [Mass/Vol] 1.78 mg/dL High 0.70-1.20 [facility] Serum glucose measurement (m ass/volume)Ordered By: Joe Sanchez on 07-02-2024 Glucose [Mass/Vol] 100 mg/dL High 70-99 [facility] Serum or plasma calcium leah urement (mass/volume)Ordered By: Joe Sanchez on 07-02-2024 Calcium [Mass/Vol] 9.5 mg/dL 7.6-11.0 [facility] Serum or plasma urea nitroge n measurement (mass/volume)Ordered By: Joe Sanchez on 07-02-2024 Urea nitrogen [Mass/Vol] 30 mg/dL High 4-19 [facility] Sodium levelOrdered By: Lluviaclaudio victor Daniel on 07-02-2024 Sodium [Moles/Vol] 138 mmol/L 133-145 [facility] White blood cell (WBC) count Ordered By: Joe Sanchez on 07-02-2024 WBC (Bld) [#/Vol] 7.1 10*3/uL 4.4-11.0 [facility] Vitamin D, 25-hydroxyOrdered By: Joe Sanchez on 06-18-2024 Vitamin D 25-Hydroxy 23.4 ng/mL Low 30-100 [facility] Comment on above: Vitamin D StatusDefi ciency: <20 ng/mL (50nmol/L)Insufficiency: 20-30 ng/mL (50-75 nmol/L)Sufficiency: 30-100 ng/mL (75-250 nmol/L)Toxicity: >100 ng/mL (>250 nmol/L) Absolute lymphocyte countOrd ered By: Joe Sanchez on 06-04-2024 Lymphocytes Auto (Unsp spec) [#/Vol] 1.61 10*3/uL 0.83-4.51 [facility] Absolute neutrophil countOrd ered By: Joe Sanchez on 06-04-2024 Neutrophils (Bld) [#/Vol] 5.3 10*3/uL 2.0-7.7 [facility] Anion gap in Serum or Plasma Ordered By: Joe Sanchez on 06-04-2024 Anion gap [Moles/Vol] 13 mmol/L 5-15 [facility] Automated lymphocyte count a s percentage of total leukocytesOrdered By: Joe Sanchez on 06-04-2024 Lymphocytes/100 WBC Auto (Unsp spec) 19.9 % 19-41 [facility] BUN/creatinine ratioOrdered By: Joe Sanchez on 06-04-2024 Urea nitrogen/Creatinine [Mass ratio] 16.0 mg/mg 10-20 [facility] Basophil percentageOrdered B y: Joe Sanchez on 06-04-2024 Basophils/100 WBC (Bld) 1.1 % High 0-1 [facility] Carbon dioxide, total [Moles /volume] in Central venous bloodOrdered By: Joe Sanchez on 06-04-2024 CO2 [Moles/Vol] 26.2 mmol/L 21.0-32.0 [facility] Chloride assayOrdered By: Lluvia Sanchez on 06-04-2024 Chloride [Moles/Vol] 99 mmol/L 98-108 [facility] Eosinophil percentageOrdered By: Joe Sanchez on 06-04-2024 Eosinophils/100 WBC (Bld) 2.2 % 0-5 [facility] Erythrocyte distribution wid th (RBC) [Ratio]Ordered By: Joe Sanchez on 06-04-2024 Erythrocyte distribution width (RBC) [Entitic vol] 46.8 fL High 35.1-43.9 [facility] Erythrocyte distribution wid th ratioOrdered By: Joe Sanchez on 06-04-2024 Erythrocyte distribution width (RBC) [Ratio] 13.2 % 11.6-14.6 [facility] Erythrocyte distribution wid th standard deviationOrdered By: Joe Sanchez on 06-04-2024 Erythrocyte distribution width (RBC) [Ratio] 46.8 fl High 35.1-43.9 [facility] GFR/1.73 sq M.predicted venkata g non-blacks MDRD (S/P/Bld) [Vol rate/Area]Ordered By: Joe Sanchez on 06-04-2024 Estimated GFR (MDRD) Non-Af Amer 29 Low >60 [facility] Comment on above: mL/min/1.73m2 CKD-EP I Creatinine Equation (2020) Glomerular filtration rate ( GFR) estimation/1.73 sq m using serum, plasma, or whole bOrdered By: Joe Sanchez on 06-04-2024 GFR/1.73 sq M.predicted among non-blacks MDRD (S/P/Bld) [Vol rate/Area] 29 mL/min/{1.73_m2} Low >60 [facility] Comment on above: mL/min/1.73m2 CKD-EP I Creatinine Equation (2020) Hematocrit Auto (Bld) [Volum e fraction]Ordered By: Joe Sanchez on 06-04-2024 Hematocrit (Bld) [Volume fraction] 43.1 % 37-47 [facility] Hemoglobin measurementOrdere d By: montez Sanchez on 06-04-2024 Hemoglobin (Bld) [Mass/Vol] 14.2 g/dL 12.0-15.0 [facility] Immature granulocytes/100 WB C Auto (Bld)Ordered By: montez Sanchez on 06-04-2024 Immature granulocytes/100 WBC (Bld) 0.600 % 0.0-0.9 [facility] Comment on above: IG% - Immature Granu locytes (promyelocytes, myelocytes and metamyelocytes) > 1% indicates that a LEFT SHIFT is Present. Lymphocytes Auto (Unsp spec) [#/Vol]Ordered By: Joe Sanchez on 06-04-2024 Lymphocytes (Bld) [#/Vol] 1.61 10*3/uL 0.83-4.51 [facility] Lymphocytes/100 WBC Auto (Un sp spec)Ordered By: Joe Sanchez on 06-04-2024 Lymphocytes/100 WBC (Bld) 19.9 % 19-41 [facility] MCV (mean corpuscular volume ) determinationOrdered By: Joe Sanchez on 06-04-2024 MCV (RBC) [Entitic vol] 96.9 fL 81-99 [facility] Mean corpuscular hemoglobin (MCH) determinationOrdered By: Joe Sanchez on 06-04-2024 MCH (RBC) [Entitic mass] 31.9 pg 27.0-32.0 [facility] Mean corpuscular hemoglobin concentration (MCHC) determinationOrdered By: Joe Sanchez on 06-04-2024 MCHC (RBC) [Mass/Vol] 32.9 g/dL 32-36 [facility] Mean platelet volume determi nationOrdered By: Lluviaclaudiomelissalynnette Morrisawaismilton on 06-04-2024 Platelet mean volume (Bld) [Entitic vol] 12.3 fL High 6.2-12.0 [facility] Monocyte percentageOrdered B y: Yudimelissalynnette Morrisawaismilton on 06-04-2024 Monocytes/100 WBC (Bld) 10.4 % High 0-10 [facility] Neutrophil percentageOrdered By: Lluviamontez Morrisawasimilton on 06-04-2024 Neutrophils/100 WBC (Bld) 65.8 % 47-70 [facility] Nucleated red blood cell per centageOrdered By: Lluviamontez Morrisawaismilton on 06-04-2024 Nucleated RBC/100 WBC (Bld) [Ratio] 0 % 0-5 [facility] Platelet countOrdered By: Lluvia genelynnette Morrisawaismilton on 06-04-2024 Platelets (Bld) [#/Vol] 216 10*3/uL 150-450 [facility] Potassium (Unsp spec) [Mass/ Vol]Ordered By: Joe Morrisawaismilton on 06-04-2024 Potassium [Moles/Vol] 4.5 mmol/L 3.3-5.1 [facility] Potassium measurement (mass/ volume)Ordered By: Joe Morrisawaismilton on 06-04-2024 Potassium (Unsp spec) [Mass/Vol] 4.5 mmol/L 3.3-5.1 [facility] RBC Auto (Bld) [#/Vol]Ordere d By: Lluviagenelynnette Morrisawaismilton on 06-04-2024 RBC (Bld) [#/Vol] 4.45 10*6/uL 4.2-5.4 [facility] Serum creatinine measurement (mass/volume)Ordered By: Joe Sanchez on 06-04-2024 Creatinine [Mass/Vol] 1.74 mg/dL High 0.70-1.20 [facility] Serum glucose measurement (m ass/volume)Ordered By: Joe Sanchez on 06-04-2024 Glucose [Mass/Vol] 91 mg/dL 70-99 [facility] Serum or plasma calcium leah urement (mass/volume)Ordered By: Joe Sanchez on 06-04-2024 Calcium [Mass/Vol] 9.5 mg/dL 7.6-11.0 [facility] Serum or plasma urea nitroge n measurement (mass/volume)Ordered By: Joe Sanchez on 06-04-2024 Urea nitrogen [Mass/Vol] 28 mg/dL High 4-19 [facility] Sodium levelOrdered By: Yudi kayleigh Daniel on 06-04-2024 Sodium [Moles/Vol] 138 mmol/L 133-145 [facility] White blood cell (WBC) count Ordered By: Joe Sanchez on 06-04-2024 WBC (Bld) [#/Vol] 8.1 10*3/uL 4.4-11.0 [facility] Absolute lymphocyte countOrd ered By: Joe Sanchez on 05-07-2024 Lymphocytes Auto (Unsp spec) [#/Vol] 1.40 10*3/uL 0.83-4.51 [facility] Absolute neutrophil countOrd ered By: Joe Sanchez on 05-07-2024 Neutrophils (Bld) [#/Vol] 5.1 10*3/uL 2.0-7.7 [facility] Automated lymphocyte count a s percentage of total leukocytesOrdered By: Joe Sanchez on 05-07-2024 Lymphocytes/100 WBC Auto (Unsp spec) 19.1 % 19-41 [facility] Basophil percentageOrdered B y: Joe Sanchez on 05-07-2024 Basophils/100 WBC (Bld) 1.0 % 0-1 [facility] Blood urea nitrogen (BUN)/cr eatinine ratioOrdered By: Joe Sanchez on 05-07-2024 Urea nitrogen/Creatinine [Mass ratio] 13.9 mg/mg 10-20 [facility] Carbon dioxide measurementOr dered By: Joe Sanchez on 05-07-2024 CO2 [Moles/Vol] 28.0 mmol/L 21.0-32.0 [facility] Chloride measurementOrdered By: Joe Sanchez on 05-07-2024 Chloride [Moles/Vol] 101 mmol/L 98-107 [facility] Eosinophil percentageOrdered By: Lluviaclaudiomelissalynnette Sanchez on 05-07-2024 Eosinophils/100 WBC (Bld) 2.7 % 0-5 [facility] Erythrocyte distribution wid th (RBC) [Ratio]Ordered By: montez Sanchez on 05-07-2024 Erythrocyte distribution width (RBC) [Entitic vol] 48.3 fL High 35.1-43.9 [facility] Erythrocyte distribution wid th ratioOrdered By: [facility] on 05-07-2024 Erythrocyte distribution width (RBC) [Ratio] 13.5 % 11.6-14.6 [facility] Erythrocyte distribution wid th standard deviationOrdered By: [facility] on 05-07-2024 Erythrocyte distribution width (RBC) [Ratio] 48.3 fl High 35.1-43.9 [facility] Estimated glomerular filtrat ion rate (GFR) AmericanOrdered By: Joe Sanchez on 05-07-2024 Estimated GFR (MDRD) Amer 29 mL/min Low >60 [facility] Comment on above: GFR Calc Glomerular filtration rate ( GFR) estimationOrdered By: Joe Sanchez on 05-07-2024 Estimated GFR (MDRD) Non-Af Amer 24 mL/min Low >60 [facility] Comment on above: Non- GFR Calc GFR/1.73 sq M.predicted among non-blacks MDRD (S/P/Bld) [Vol rate/Area] 24 mL/min/{1.73_m2} Low >60 [facility] Comment on above: Non- GFR Calc Glucose measurementOrdered B y: Lluviaclaudiomelissalynnette Sanchez on 05-07-2024 Glucose [Mass/Vol] 122 mg/dL High 74-106 [facility] Comment on above: Fasting Glucose resu lt from 100 to 125 mg/dL suggests IMPAIRED HOMEOSTASIS per A.D.A. criteria. Hematocrit Auto (Bld) [Volum e fraction]Ordered By: Joe Sanchez on 05-07-2024 Hematocrit (Bld) [Volume fraction] 41.3 % 37-47 [facility] Hemoglobin measurementOrdere d By: Joe Sanchez on 05-07-2024 Hemoglobin (Bld) [Mass/Vol] 13.4 g/dL 12.0-15.0 [facility] Immature granulocytes/100 WB C Auto (Bld)Ordered By: Jeo Sanchez on 05-07-2024 Immature granulocytes/100 WBC (Bld) 0.700 % 0.0-0.9 [facility] Comment on above: IG% - Immature Granu locytes (promyelocytes, myelocytes and metamyelocytes) > 1% indicates that a LEFT SHIFT is Present. Lymphocytes Auto (Unsp spec) [#/Vol]Ordered By: Joe Sanchez on 05-07-2024 Lymphocytes (Bld) [#/Vol] 1.40 10*3/uL 0.83-4.51 [facility] Lymphocytes/100 WBC Auto (Un sp spec)Ordered By: Joe Sanchez on 05-07-2024 Lymphocytes/100 WBC (Bld) 19.1 % 19-41 [facility] MCV (mean corpuscular volume ) determinationOrdered By: Joe Sanchez on 05-07-2024 MCV (RBC) [Entitic vol] 98.6 fL 81-99 [facility] Mean corpuscular hemoglobin (MCH) determinationOrdered By: Joe Sanchez on 05-07-2024 MCH (RBC) [Entitic mass] 32.0 pg 27.0-32.0 [facility] Mean corpuscular hemoglobin concentration (MCHC) determinationOrdered By: Joe Sanchez on 05-07-2024 MCHC (RBC) [Mass/Vol] 32.4 g/dL 32-36 [facility] Mean platelet volume determi nationOrdered By: Joe Sanchez on 05-07-2024 Platelet mean volume (Bld) [Entitic vol] 12.6 fL High 6.2-12.0 [facility] Monocyte percentageOrdered B y: Joe Sanchez on 05-07-2024 Monocytes/100 WBC (Bld) 7.4 % 0-10 [facility] Neutrophil percentageOrdered By: Joe Sanchez on 05-07-2024 Neutrophils/100 WBC (Bld) 69.1 % 47-70 [facility] Nucleated red blood cell per centageOrdered By: Joe Sanchez on 05-07-2024 Nucleated RBC/100 WBC (Bld) [Ratio] 0 % 0-5 [facility] Platelet countOrdered By: Lluvia Sanchez on 05-07-2024 Platelets (Bld) [#/Vol] 194 10*3/uL 150-450 [facility] Potassium measurementOrdered By: Joe Sanchez on 05-07-2024 Potassium [Moles/Vol] 3.6 mmol/L 3.5-5.1 [facility] RBC Auto (Bld) [#/Vol]Ordere d By: Joe Sanchez on 05-07-2024 RBC (Bld) [#/Vol] 4.19 10*6/uL Low 4.2-5.4 [facility] Serum anion gap measurementO rdered By: Joe Sanchez on 05-07-2024 Anion gap [Moles/Vol] 10 mmol/L 5-15 [facility] Serum or plasma calcium leah urement (mass/volume)Ordered By: Joe Sanchez on 05-07-2024 Calcium [Mass/Vol] 9.3 mg/dL 8.5-10.1 [facility] Serum or plasma creatinine m easurement (mass/volume)Ordered By: Joe Sanchez on 05-07-2024 Creatinine [Mass/Vol] 2.08 mg/dL High 0.55-1.02 [facility] Comment on above: The validity of the calculated GFR & GFRAA in patients over 70 years has not been determined. Clinical correlation is essential. Serum or plasma urea nitroge n measurement (mass/volume)Ordered By: Joe Sanchez on 05-07-2024 Urea nitrogen [Mass/Vol] 29 mg/dL High 7-18 [facility] Sodium levelOrdered By: Yudi Sanchez on 05-07-2024 Sodium [Moles/Vol] 139 mmol/L 136-145 [facility] White blood cell (WBC) count Ordered By: Joe Sanchez on 05-07-2024 WBC (Bld) [#/Vol] 7.3 10*3/uL 4.4-11.0 [facility] [id number] DOrdered By: Milton Sanchez on 04-22-2024 Vitamin D 25-Hydroxy 69.4 ng/mL [facility] Comment on above: Vitamin D 25(OH) Sta tus Range Deficiency <20 ng/mL (50nmol/L) Insufficiency 20 - 30 ng/mL (50 - 75 nmol/L) Sufficiency 30 - 100 ng/mL (75 - 250 nmol/L) Toxicity >100 ng/mL (>250 nmol/L) Bilirubin directOrdered By: Joe Sanchez on 04-22-2024 Bilirubin.direct [Mass/Vol] 0.29 mg/dL 0.00-0.30 [facility] Bilirubin, totalOrdered By: Joe Sanchez on 04-22-2024 Bilirubin [Mass/Vol] 0.90 mg/dL 0.20-1.00 [facility] Comment on above: For patients on eltr ombopag therapy, use of Dimension [place] TBIL is not recommended. Hemoglobin A1c percentageOrd ered By: Joe Sanchez on 04-22-2024 HbA1c (Bld) [Mass fraction] 5.2 % 3.8-5.6 [facility] Comment on above: Normal < 5.7 % Predi abetic 5.7 - 6.4 % Diabetic >or= 6.5 % Please note range changes. High density lipoprotein (HD L) measurementOrdered By: Joe Sanchez on 04-22-2024 Cholesterol in HDL [Mass/Vol] 44 mg/dL >40 [facility] Comment on above: The drugs N-Acetylcy steine and Metamizole may falsely depress this assay. Reference Range HDL <40 mg/dL Low HDL Cholesterol HDL >or= 60 mg/dL High HDL Cholesterol Laboratory - Chemistry and C hemistry - challengeOrdered By: Joe Sanchez on 04-22-2024 AST [Catalytic activity/Vol] 15 U/L 15-37 [facility] Low density lipoprotein (LDL ) cholesterol measurementOrdered By: Joe Sanchez on 04-22-2024 Cholesterol in LDL [Mass/Vol] 41 mg/dL 0-130 [facility] Serum globulin measurementOr dered By: Joe Sanchez on 04-22-2024 Globulin (S) [Mass/Vol] 3.7 g/dL 2.2-4.2 [facility] Serum or plasma alanine kilpatrick otransferase (ALT) measurementOrdered By: Joe Sanchez on 04-22-2024 ALT [Catalytic activity/Vol] 14 U/L 13-56 [facility] Serum or plasma albumin leah urement (mass/volume)Ordered By: Joe Sanchez on 04-22-2024 Albumin [Mass/Vol] 2.7 g/dL Low 3.2-5.0 [facility] Serum or plasma alkaline kirti sphatase measurementOrdered By: Joe Sanchez on 04-22-2024 ALP [Catalytic activity/Vol] 61 U/L 45-117 [facility] Serum or plasma cholesterol measurement (mass/volume)Ordered By: Joe Sanchez on 04-22-2024 Cholesterol [Mass/Vol] 106 mg/dL <200 [facility] Comment on above: <200 mg/dL Desirable 200-240 mg/dL Borderline >240 mg/dL High Risk Total proteinOrdered By: Constantin Sanchez on 04-22-2024 Protein [Mass/Vol] 6.4 g/dL 6.4-8.2 [facility] Triglycerides measurementOrd ered By: Joe Sanchez on 04-22-2024 Triglyceride [Mass/Vol] 107 mg/dL <199 [facility] Comment on above: The drugs N-Acetylcy steine and Metamizole may falsely depress this assay.Serum Triglycerides Reference Interval Normal <150 mg/dL Borderline high 150 - 199 mg/dL High 200 - 499 mg/dL Very High > or = 500 mg/dL Very low density lipoprotein (VLDL) cholesterol measurementOrdered By: Joe Sanchez on 04-22-2024 Very low density lipoprotein (VLDL) cholesterol measurement 21 mg/dL 5-40 [facility] VLDL Cholesterol 21 mg/dL 5-40 [facility] Absolute lymphocyte countOrd ered By: Joe Sanchez on 04-09-2024 Lymphocytes Auto (Unsp spec) [#/Vol] 1.63 10*3/uL 0.83-4.51 [facility] Absolute neutrophil countOrd ered By: Joe Sanchez on 04-09-2024 Neutrophils (Bld) [#/Vol] 5.0 10*3/uL 2.0-7.7 [facility] Automated lymphocyte count a s percentage of total leukocytesOrdered By: Joe Sanchez on 04-09-2024 Lymphocytes/100 WBC Auto (Unsp spec) 20.7 % 19-41 [facility] Basophil percentageOrdered B y: Joe Sanchez on 04-09-2024 Basophils/100 WBC (Bld) 1.3 % High 0-1 [facility] Blood urea nitrogen (BUN)/cr eatinine ratioOrdered By: Joe Sanchez on 04-09-2024 Urea nitrogen/Creatinine [Mass ratio] 11.4 mg/mg 10-20 [facility] Carbon dioxide measurementOr dered By: montez Sanchez on 04-09-2024 CO2 [Moles/Vol] 30.0 mmol/L 21.0-32.0 [facility] Chloride measurementOrdered By: claudioaustinlynnette Sanchez on 04-09-2024 Chloride [Moles/Vol] 100 mmol/L 98-107 [facility] Eosinophil percentageOrdered By: Joe Sanchez on 04-09-2024 Eosinophils/100 WBC (Bld) 2.4 % 0-5 [facility] Erythrocyte distribution wid th (RBC) [Ratio]Ordered By: Joe Sanchez on 04-09-2024 Erythrocyte distribution width (RBC) [Entitic vol] 49.9 fL High 35.1-43.9 [facility] Erythrocyte distribution wid th ratioOrdered By: Joe Sanchez on 04-09-2024 Erythrocyte distribution width (RBC) [Ratio] 13.6 % 11.6-14.6 [facility] Erythrocyte distribution wid th standard deviationOrdered By: Joe Sanchez on 04-09-2024 Erythrocyte distribution width (RBC) [Ratio] 49.9 fl High 35.1-43.9 [facility] Estimated glomerular filtrat ion rate (GFR) AmericanOrdered By: Joe Sanchez on 04-09-2024 Estimated GFR (MDRD) Amer 36 mL/min Low >60 [facility] Comment on above: GFR Calc Glomerular filtration rate ( GFR) estimationOrdered By: Joe Sanchez on 04-09-2024 Estimated GFR (MDRD) Non-Af Amer 30 mL/min Low >60 [facility] Comment on above: Non- GFR Calc GFR/1.73 sq M.predicted among non-blacks MDRD (S/P/Bld) [Vol rate/Area] 30 mL/min/{1.73_m2} Low >60 [facility] Comment on above: Non- GFR Calc Glucose measurementOrdered B y: Joe Sanchez on 04-09-2024 Glucose [Mass/Vol] 86 mg/dL 74-106 [facility] Hematocrit Auto (Bld) [Volum e fraction]Ordered By: Joe Sanchez on 04-09-2024 Hematocrit (Bld) [Volume fraction] 40.5 % 37-47 [facility] Hemoglobin measurementOrdere d By: Joe Sanchez on 04-09-2024 Hemoglobin (Bld) [Mass/Vol] 13.0 g/dL 12.0-15.0 [facility] Immature granulocytes/100 WB C Auto (Bld)Ordered By: Joe Sanchez on 04-09-2024 Immature granulocytes/100 WBC (Bld) 0.600 % 0.0-0.9 [facility] Comment on above: IG% - Immature Granu locytes (promyelocytes, myelocytes and metamyelocytes) > 1% indicates that a LEFT SHIFT is Present. Lymphocytes Auto (Unsp spec) [#/Vol]Ordered By: Joe Sanchez on 04-09-2024 Lymphocytes (Bld) [#/Vol] 1.63 10*3/uL 0.83-4.51 [facility] Lymphocytes/100 WBC Auto (Un sp spec)Ordered By: Joe Sanchez on 04-09-2024 Lymphocytes/100 WBC (Bld) 20.7 % 19-41 [facility] MCV (mean corpuscular volume ) determinationOrdered By: Joe Sanchez on 04-09-2024 MCV (RBC) [Entitic vol] 98.5 fL 81-99 [facility] Mean corpuscular hemoglobin (MCH) determinationOrdered By: Joe Sanchez on 04-09-2024 MCH (RBC) [Entitic mass] 31.6 pg 27.0-32.0 [facility] Mean corpuscular hemoglobin concentration (MCHC) determinationOrdered By: Joe Sanchez on 04-09-2024 MCHC (RBC) [Mass/Vol] 32.1 g/dL 32-36 [facility] Mean platelet volume determi nationOrdered By: Joe Sanchez on 04-09-2024 Platelet mean volume (Bld) [Entitic vol] 12.2 fL High 6.2-12.0 [facility] Monocyte percentageOrdered B y: Joe Sanchez on 04-09-2024 Monocytes/100 WBC (Bld) 10.9 % High 0-10 [facility] Neutrophil percentageOrdered By: Joe Sanchez on 04-09-2024 Neutrophils/100 WBC (Bld) 64.1 % 47-70 [facility] Nucleated red blood cell per centageOrdered By: Joe Sanchez on 04-09-2024 Nucleated RBC/100 WBC (Bld) [Ratio] 0 % 0-5 [facility] Platelet countOrdered By: Lluvia Sanchez on 04-09-2024 Platelets (Bld) [#/Vol] 215 10*3/uL 150-450 [facility] Potassium measurementOrdered By: Joe Sanchez on 04-09-2024 Potassium [Moles/Vol] 4.2 mmol/L 3.5-5.1 [facility] RBC Auto (Bld) [#/Vol]Ordere d By: Joe Sanchez on 04-09-2024 RBC (Bld) [#/Vol] 4.11 10*6/uL Low 4.2-5.4 [facility] Serum anion gap measurementO rdered By: Joe Sanchez on 04-09-2024 Anion gap [Moles/Vol] 6 mmol/L 5-15 [facility] Serum or plasma calcium leah urement (mass/volume)Ordered By: Joe Sanchez on 04-09-2024 Calcium [Mass/Vol] 9.8 mg/dL 8.5-10.1 [facility] Serum or plasma creatinine m easurement (mass/volume)Ordered By: Joe Sanchez on 04-09-2024 Creatinine [Mass/Vol] 1.75 mg/dL High 0.55-1.02 [facility] Comment on above: The validity of the calculated GFR & GFRAA in patients over 70 years has not been determined. Clinical correlation is essential. Serum or plasma urea nitroge n measurement (mass/volume)Ordered By: Joe Sanchez on 04-09-2024 Urea nitrogen [Mass/Vol] 20 mg/dL High 7-18 [facility] Sodium levelOrdered By: Yudi Sanchez on 04-09-2024 Sodium [Moles/Vol] 137 mmol/L 136-145 [facility] White blood cell (WBC) count Ordered By: Joe Sanchez on 04-09-2024 WBC (Bld) [#/Vol] 7.9 10*3/uL 4.4-11.0 [facility] 36on 04-03-2024 36 Records received and scanned under Media [facility] 36on 04-01-2024 36 I called [facility] and she requested me to fax med recs release to [phone] I faxed this morning. Confirmed 04/02 at 5:45p [facility] 36on 03-15-2024 36 Chart reviewed, patient completed 30 day follow-up in [place]. Cancelled echo order [facility] 36 Patient prefers care in [place] [address] We have been unable to reach your patient to schedule their testing. Test Name: echo 1st Attempt: 03/14/2024 left voicemail 2nd Attempt: 03/15/2024 left voicemail [facility] Bilirubin Test strip Ql (U)O rdered By: Joe Sanchez on 03-15-2024 Bilirubin Ql (U) Negative Negative [facility] Glucose Ql (U)Ordered By: Lluvia Sanchez on 03-15-2024 Glucose (U) [Mass/Vol] 250 mg/dL High Normal [facility] Ketones Test strip Ql (U)Ord ered By: Joe Sanchez on 03-15-2024 Ketones Ql (U) Negative Negative [facility] Nitrite Test strip Ql (U)Ord ered By: Joe Sanchez on 03-15-2024 Nitrite Ql (U) Negative Negative [facility] Protein Test strip Ql (U)Ord ered By: Joe Sanchez on 03-15-2024 Protein Ql (U) 100 mg/dl High Negative [facility] Urine blood detectionOrdered By: Joe Sanchez on 03-15-2024 Urine Occult Blood 250 /ul High Negative [facility] Urine clarityOrdered By: Constantin Sanchez on 03-15-2024 Clarity (U) Cloudy Clear [facility] Urine color determinationOrd ered By: Joe Sanchez on 03-15-2024 Color (U) Straw Yellow [facility] Urine cultureOrdered By: Constantin Sanchez on 03-15-2024 Bacteria identified Cx Nom (U) Enterobacter cloacae complex Abnormal [facility] Urine leukocyte esterase det ection by dipstickOrdered By: Joe Sanchez on 03-15-2024 Leukocyte esterase Test strip Ql (U) 500 /ul High Negative [facility] Urine pHOrdered By: Miles Sanchez on 03-15-2024 pH (U) 6.0 [pH] 5.0 - 8.0 [facility] Urine specific gravity measu rementOrdered By: Joe Sanchez on 03-15-2024 Specific gravity (U) [Rel density] 1.015 1.002-1.030 [facility] Urobilinogen Ql (U)Ordered B y: Joe Sanchez on 03-15-2024 Urine Urobilinogen Normal mg/dl Normal [facility] Absolute neutrophil countOrd ered By: Joe Sanchez on 03-08-2024 Neutrophils (Bld) [#/Vol] 5.5 10*3/uL 2.0-7.7 [facility] Basophil percentageOrdered B y: Joe Sanchez on 03-08-2024 Basophils/100 WBC (Bld) 1.3 % High 0-1 [facility] Blood urea nitrogen (BUN)/cr eatinine ratioOrdered By: Joe Sanchez on 03-08-2024 Urea nitrogen/Creatinine [Mass ratio] 13.4 mg/mg 10-20 [facility] Carbon dioxide measurementOr dered By: Joe Sanchez on 03-08-2024 CO2 [Moles/Vol] 27.0 mmol/L 21.0-32.0 [facility] Chloride measurementOrdered By: Joe Sanchez on 03-08-2024 Chloride [Moles/Vol] 98 mmol/L 98-107 [facility] Eosinophil percentageOrdered By: Joe Sanchez on 03-08-2024 Eosinophils/100 WBC (Bld) 3.6 % 0-5 [facility] Erythrocyte distribution wid th (RBC) [Ratio]Ordered By: Joe Sanchez on 03-08-2024 Erythrocyte distribution width (RBC) [Entitic vol] 50.5 fL High 35.1-43.9 [facility] Erythrocyte distribution wid th ratioOrdered By: Joe Sanchez on 03-08-2024 Erythrocyte distribution width (RBC) [Ratio] 14.1 % 11.6-14.6 [facility] Estimated glomerular filtrat ion rate (GFR) AmericanOrdered By: Joe Sanchez on 03-08-2024 Estimated GFR (MDRD) Amer 35 mL/min Low >60 [facility] Comment on above: GFR Calc Glomerular filtration rate ( GFR) estimationOrdered By: Joe Sanchez on 03-08-2024 Estimated GFR (MDRD) Non-Af Amer 29 mL/min Low >60 [facility] Comment on above: Non- GFR Calc Glucose measurementOrdered B y: Joe Sanchez on 03-08-2024 Glucose [Mass/Vol] 82 mg/dL 74-106 [facility] Hematocrit Auto (Bld) [Volum e fraction]Ordered By: Joe Sanchez on 03-08-2024 Hematocrit (Bld) [Volume fraction] 39.8 % 37-47 [facility] Hemoglobin measurementOrdere d By: Joe Sanchez on 03-08-2024 Hemoglobin (Bld) [Mass/Vol] 13.1 g/dL 12.0-15.0 [facility] Immature granulocytes/100 WB C Auto (Bld)Ordered By: Joe Sanchez on 03-08-2024 Immature granulocytes/100 WBC (Bld) 1.300 % High 0.0-0.9 [facility] Comment on above: IG% - Immature Granu locytes (promyelocytes, myelocytes and metamyelocytes) > 1% indicates that a LEFT SHIFT is Present. Lymphocytes Auto (Unsp spec) [#/Vol]Ordered By: Joe Sanchez on 03-08-2024 Lymphocytes (Bld) [#/Vol] 1.69 10*3/uL 0.83-4.51 [facility] Lymphocytes/100 WBC Auto (Un sp spec)Ordered By: Joe Sanchez on 03-08-2024 Lymphocytes/100 WBC (Bld) 19.6 % 19-41 [facility] MCV (mean corpuscular volume ) determinationOrdered By: Joe Sanchez on 03-08-2024 MCV (RBC) [Entitic vol] 97.3 fL 81-99 [facility] Mean corpuscular hemoglobin (MCH) determinationOrdered By: Joe Sanchez on 03-08-2024 MCH (RBC) [Entitic mass] 32.0 pg 27.0-32.0 [facility] Mean corpuscular hemoglobin concentration (MCHC) determinationOrdered By: Joe Sanchez on 03-08-2024 MCHC (RBC) [Mass/Vol] 32.9 g/dL 32-36 [facility] Mean platelet volume determi nationOrdered By: Joe Sanchez on 03-08-2024 Platelet mean volume (Bld) [Entitic vol] 11.9 fL 6.2-12.0 [facility] Monocyte percentageOrdered B y: Joe Sanchez on 03-08-2024 Monocytes/100 WBC (Bld) 10.9 % High 0-10 [facility] Neutrophil percentageOrdered By: Joe Sanchez on 03-08-2024 Neutrophils/100 WBC (Bld) 63.3 % 47-70 [facility] Nucleated red blood cell per centageOrdered By: Joe Sanchez on 03-08-2024 Nucleated RBC/100 WBC (Bld) [Ratio] 0 % 0-5 [facility] Platelet countOrdered By: Lluvia herrmann Arturohans on 03-08-2024 Platelets (Bld) [#/Vol] 232 10*3/uL 150-450 [facility] Potassium measurementOrdered By: Joaquinlynnette Morrishans on 03-08-2024 Potassium [Moles/Vol] 4.1 mmol/L 3.5-5.1 [facility] RBC Auto (Bld) [#/Vol]Ordere d By: Joe Sanchez on 03-08-2024 RBC (Bld) [#/Vol] 4.09 10*6/uL Low 4.2-5.4 [facility] Serum anion gap measurementO rdered By: Joe Sanchez on 03-08-2024 Anion gap [Moles/Vol] 9 mmol/L 5-15 [facility] Serum or plasma calcium leah urement (mass/volume)Ordered By: Lluviaclaudiomelissalynnette Morrisawaismilton on 03-08-2024 Calcium [Mass/Vol] 9.6 mg/dL 8.5-10.1 [facility] Serum or plasma creatinine m easurement (mass/volume)Ordered By: Lluviaclaudiomelissalynnette Morrisawaismilton on 03-08-2024 Creatinine [Mass/Vol] 1.79 mg/dL High 0.55-1.02 [facility] Comment on above: The validity of the calculated GFR & GFRAA in patients over 70 years has not been determined. Clinical correlation is essential. Serum or plasma urea nitroge n measurement (mass/volume)Ordered By: Lluviamontez Sanchez on 03-08-2024 Urea nitrogen [Mass/Vol] 24 mg/dL High 7-18 [facility] Sodium levelOrdered By: Yudi Sanchez on 03-08-2024 Sodium [Moles/Vol] 134 mmol/L Low 136-145 [facility] White blood cell (WBC) count Ordered By: Lluviaclaudiokayleigh Arturoawaismilton on 03-08-2024 WBC (Bld) [#/Vol] 8.6 10*3/uL 4.4-11.0 [facility] Absolute neutrophil countOrd ered By: Joe Arturohans on 03-01-2024 Neutrophils (Bld) [#/Vol] 5.1 10*3/uL 2.0-7.7 [facility] Basophil percentageOrdered B y: Yudimelissalynnette Morrisawaismilton on 03-01-2024 Basophils/100 WBC (Bld) 1.6 % High 0-1 [facility] Blood urea nitrogen (BUN)/cr eatinine ratioOrdered By: Joe Morrisawaismilton on 03-01-2024 Urea nitrogen/Creatinine [Mass ratio] 15.9 mg/mg 10-20 [facility] Carbon dioxide measurementOr dered By: Joe Morrisawaismilton on 03-01-2024 CO2 [Moles/Vol] 26.0 mmol/L 21.0-32.0 [facility] Chloride measurementOrdered By: Joe Morrisawaismilton on 03-01-2024 Chloride [Moles/Vol] 101 mmol/L 98-107 [facility] Eosinophil percentageOrdered By: Joaquinlynnette Arturoawaismilton on 03-01-2024 Eosinophils/100 WBC (Bld) 3.2 % 0-5 [facility] Erythrocyte distribution wid th (RBC) [Ratio]Ordered By: Joe Morrisawaismilton on 03-01-2024 Erythrocyte distribution width (RBC) [Entitic vol] 49.1 fL High 35.1-43.9 [facility] Erythrocyte distribution wid th ratioOrdered By: Joaquinlynnette Arturoawaismilton on 03-01-2024 Erythrocyte distribution width (RBC) [Ratio] 14.0 % 11.6-14.6 [facility] Estimated glomerular filtrat ion rate (GFR) AmericanOrdered By: Joe Sanchez on 03-01-2024 Estimated GFR (MDRD) Amer 30 mL/min Low >60 [facility] Comment on above: GFR Calc Glomerular filtration rate ( GFR) estimationOrdered By: Joe Sanchez on 03-01-2024 Estimated GFR (MDRD) Non-Af Amer 25 mL/min Low >60 [facility] Comment on above: Non- GFR Calc Glucose measurementOrdered B y: Joe Sanchez on 03-01-2024 Glucose [Mass/Vol] 101 mg/dL 74-106 [facility] Comment on above: Fasting Glucose resu lt from 100 to 125 mg/dL suggests IMPAIRED HOMEOSTASIS per A.D.A. criteria. Hematocrit Auto (Bld) [Volum e fraction]Ordered By: Joe Sanchez on 03-01-2024 Hematocrit (Bld) [Volume fraction] 37.7 % 37-47 [facility] Hemoglobin measurementOrdere d By: Joe Sanchez on 03-01-2024 Hemoglobin (Bld) [Mass/Vol] 12.6 g/dL 12.0-15.0 [facility] Immature granulocytes/100 WB C Auto (Bld)Ordered By: Joe Sanchez on 03-01-2024 Immature granulocytes/100 WBC (Bld) 1.200 % High 0.0-0.9 [facility] Comment on above: IG% - Immature Granu locytes (promyelocytes, myelocytes and metamyelocytes) > 1% indicates that a LEFT SHIFT is Present. Lymphocytes Auto (Unsp spec) [#/Vol]Ordered By: Joe Sanchez on 03-01-2024 Lymphocytes (Bld) [#/Vol] 1.56 10*3/uL 0.83-4.51 [facility] Lymphocytes/100 WBC Auto (Un sp spec)Ordered By: Joe Sanchez on 03-01-2024 Lymphocytes/100 WBC (Bld) 19.0 % 19-41 [facility] MCV (mean corpuscular volume ) determinationOrdered By: Joe Sanchez on 03-01-2024 MCV (RBC) [Entitic vol] 96.2 fL 81-99 [facility] Mean corpuscular hemoglobin (MCH) determinationOrdered By: Joe Sanchez on 03-01-2024 MCH (RBC) [Entitic mass] 32.1 pg High 27.0-32.0 [facility] Mean corpuscular hemoglobin concentration (MCHC) determinationOrdered By: Joe Sanchez on 03-01-2024 MCHC (RBC) [Mass/Vol] 33.4 g/dL 32-36 [facility] Mean platelet volume determi nationOrdered By: Efclaudioongbe Daniel on 03-01-2024 Platelet mean volume (Bld) [Entitic vol] 12.0 fL 6.2-12.0 [facility] Monocyte percentageOrdered B y: Efmontez Sanchez on 03-01-2024 Monocytes/100 WBC (Bld) 12.9 % High 0-10 [facility] Neutrophil percentageOrdered By: Joe Sanchez on 03-01-2024 Neutrophils/100 WBC (Bld) 62.1 % 47-70 [facility] Nucleated red blood cell per centageOrdered By: Yudiongbe Daniel on 03-01-2024 Nucleated RBC/100 WBC (Bld) [Ratio] 0 % 0-5 [facility] Platelet countOrdered By: Ef montez Sanchez on 03-01-2024 Platelets (Bld) [#/Vol] 212 10*3/uL 150-450 [facility] Potassium measurementOrdered By: Joe Sanchez on 03-01-2024 Potassium [Moles/Vol] 4.1 mmol/L 3.5-5.1 [facility] RBC Auto (Bld) [#/Vol]Ordere d By: Joaquinbe Daniel on 03-01-2024 RBC (Bld) [#/Vol] 3.92 10*6/uL Low 4.2-5.4 [facility] Serum anion gap measurementO rdered By: Joe Sanchez on 03-01-2024 Anion gap [Moles/Vol] 8 mmol/L 5-15 [facility] Serum or plasma calcium leah urement (mass/volume)Ordered By: Joe Sanchez on 03-01-2024 Calcium [Mass/Vol] 9.6 mg/dL 8.5-10.1 [facility] Serum or plasma creatinine m easurement (mass/volume)Ordered By: Joe Sanchez on 03-01-2024 Creatinine [Mass/Vol] 2.01 mg/dL High 0.55-1.02 [facility] Comment on above: The validity of the calculated GFR & GFRAA in patients over 70 years has not been determined. Clinical correlation is essential. Serum or plasma urea nitroge n measurement (mass/volume)Ordered By: [facility]ismilton on 03-01-2024 Urea nitrogen [Mass/Vol] 32 mg/dL High - [facility] Sodium levelOrdered By: Yudi Sanchez on 03-01-2024 Sodium [Moles/Vol] 136 mmol/L 136-145 [facility] White blood cell (WBC) count Ordered By: claudioaustinlynnette Sanchez on 03-01-2024 WBC (Bld) [#/Vol] 8.2 10*3/uL 4.4-11.0 [facility] Cardiology Visit Reporton Cardiology Visit Report Normal [facility] Gastroenterology Visit Repor ton 01-18-2024 Gastroenterology Visit Report Normal [facility] CBC W/Diff, Automatedon 12-19 PATH REV Reviewed Normal [facility] Comment on above: Result Comment: Neut rophilic leukocytosis.REACTIVE LYMPHOCYTES PRESENTArun Mahseh King 01/11/24 AMENDED REPORT 01/11/24 0945 PATH REV previously reported as: July Performed By: #### L 100.0100, L500.2500 ####[facility] [id number] [place], [address] Basic Metabolic Profile (BMP )on 01-10-2024 BUN/CRE 24.4 RATIO High 01-06 [facility] Comment on above: Performed By: #### L 100.0100, L500.2500 ####[facility] [id number] [place], [address] CA,Total 9.5 mg/dL Normal 8.5-10.1 [facility] Comment on above: Performed By: #### L 100.0100, L500.2500 ####[facility] [address] [place], [address] Chloride [Moles/Vol] 99 mmol/L Normal 98-107 [facility] Comment on above: Performed By: #### L 100.0100, L500.2500 ####[facility] [id number] [place], [address] CO2 [Moles/Vol] 25.0 mmol/L Normal 21.0-32.0 [facility] Comment on above: Performed By: #### L 100.0100, L500.2500 ####[facility] [id number] [place], [address] Creatinine [Mass/Vol] 1.60 mg/dL High 0.55-1.02 [facility] Comment on above: Result Comment: The validity of the calculated GFR GFRAA in patients over70 years has not been determined. Clinical correlation isessential. Performed By: #### L 100.0100, L500.2500 ####[facility] [address] [place], [address] ECRCL 31.06 ml/min Normal [facility] Comment on above: Performed By: #### L 100.0100, L500.2500 ####[facility] [address] [place], [address] EST GFR - AA 40 mL/min Low >60 [facility] Comment on above: Result Comment: Afri can Vietnamese GFR Calc Performed By: #### L 100.0100, L500.2500 ####[facility] [id number] [place], [address] GAP 7 Normal 5-15 [facility] Comment on above: Performed By: #### L 100.0100, L500.2500 ####[facility] [address] [place], [address] GFR/1.73 sq M.predicted among non-blacks MDRD (S/P/Bld) [Vol rate/Area] 33 mL/min/{1.73_m2} Low >60 [facility] Comment on above: Result Comment: Non- GFR Calc Performed By: #### L 100.0100, L500.2500 ####[facility] [address] [place], [address] Glucose [Mass/Vol] 116 mg/dL High 74-106 [facility] Comment on above: Result Comment: Fast ing Glucose result from 100 to 125 mg/dLsuggests IMPAIRED HOMEOSTASIS per A.D.A. criteria. Performed By: #### L 100.0100, L500.2500 ####[facility] [address] [place], [address] Potassium [Moles/Vol] 4.4 mmol/L Normal 3.5-5.1 [facility] Comment on above: Performed By: #### L 100.0100, L500.2500 ####[facility] [address] [place], [address] Sodium [Moles/Vol] 131 mmol/L Low 136-145 [facility] Comment on above: Performed By: #### L 100.0100, L500.2500 ####[facility] [address] [place], [address] Urea nitrogen [Mass/Vol] 39 mg/dL High 7-18 [facility] Comment on above: Performed By: #### L 100.0100, L500.2500 ####[facility] [address] [place], [address] Basic Metabolic Profile (BMP )on 01-08-2024 BUN/CRE 21.1 RATIO High - [facility] Comment on above: Order Comment: LUIS Katz. PREVIOUS SPECIMEN REJECTED DUE TOHEMOLYSIS. 10/21/24 0743 Preet Vizcarra. Performed By: #### L 500.2500 ####[facility] [address] [place], [address] CA,Total 9.3 mg/dL Normal 8.5-10.1 [facility] Comment on above: Order Comment: REDRA W. PREVIOUS SPECIMEN REJECTED DUE TOHEMOLYSIS. 01/08/24742 Preet Vizcarra. Performed By: #### L 500.2500 ####[facility] [address] [place], [address] Chloride [Moles/Vol] 101 mmol/L Normal 98-107 [facility] Comment on above: Order Comment: REDRA W. PREVIOUS SPECIMEN REJECTED DUE TOHEMOLYSIS. 01/08/24742 Preet Vizcarra. Performed By: #### L 500.2500 ####[facility] [address] [place], [address] CO2 [Moles/Vol] 25.0 mmol/L Normal 21.0-32.0 [facility] Comment on above: Order Comment: REDRA W. PREVIOUS SPECIMEN REJECTED DUE TOHEMOLYSIS. 01/08/24742 Preet Vizcarra. Performed By: #### L 500.2500 ####[facility] [address] [place], [address] Creatinine [Mass/Vol] 1.28 mg/dL High 0.55-1.02 [facility] Comment on above: Order Comment: REDRA W. PREVIOUS SPECIMEN REJECTED DUE TOHEMOLYSIS. 01/08/24742 Preet Vizcarra. Result Comment: The validity of the calculated GFR GFRAA in patients over70 years has not been determined. Clinical correlation isessential. Performed By: #### L 500.2500 ####[facility] [address] [place], [address] ECRCL 38.87 ml/min Normal [facility] Comment on above: Order Comment: REDRA W. PREVIOUS SPECIMEN REJECTED DUE TOHEMOLYSIS. 01/08/24742 Preet Vizcarra. Performed By: #### L 500.2500 ####[facility] [address] [place], [address] EST GFR - AA 51 mL/min Low >60 [facility] Comment on above: Order Comment: REDRA W. PREVIOUS SPECIMEN REJECTED DUE TOHEMOLYSIS. 01/08/24742 Preet Vizcarra. Result Comment: Afri can Vietnamese GFR Calc Performed By: #### L 500.2500 ####[facility] [address] [place], [address] GAP 8 Normal 5-15 [facility] Comment on above: Order Comment: REDRA W. PREVIOUS SPECIMEN REJECTED DUE TOHEMOLYSIS. 01/08/24742 Preet Vizcarra. Performed By: #### L 500.2500 ####[facility] [address] [place], [place], [phone](077) GFR/1.73 sq M.predicted among non-blacks MDRD (S/P/Bld) [Vol rate/Area] 42 mL/min/{1.73_m2} Low >60 [facility] Comment on above: Order Comment: REDRA W. PREVIOUS SPECIMEN REJECTED DUE TOHEMOLYSIS. 01/08/24742 Preet Vizcarra. Result Comment: Non- GFR Calc Performed By: #### L 500.2500 ####[facility] [address] [place], [place], [phone] Glucose [Mass/Vol] 106 mg/dL Normal 74-106 [facility] Comment on above: Order Comment: REDRA W. PREVIOUS SPECIMEN REJECTED DUE TOHEMOLYSIS. 01/08/24742 Preet Vizcarra. Result Comment: Fast ing Glucose result from 100 to 125 mg/dLsuggests IMPAIRED HOMEOSTASIS per A.D.A. criteria. Performed By: #### L 500.2500 ####[facility] [address] [place], [address] Potassium [Moles/Vol] 4.5 mmol/L Normal 3.5-5.1 [facility] Comment on above: Order Comment: REDRA W. PREVIOUS SPECIMEN REJECTED DUE TOHEMOLYSIS. 01/08/24742 Preet Radford White. Performed By: #### L 500.2500 ####[facility] [address] [place], [address] Sodium [Moles/Vol] 135 mmol/L Low 136-145 [facility] Comment on above: Order Comment: REDRA W. PREVIOUS SPECIMEN REJECTED DUE TOHEMOLYSIS. 01/08/24742 Preet Radford White. Performed By: #### L 500.2500 ####[facility] [address] [facility] [address] Urea nitrogen [Mass/Vol] 27 mg/dL High 10-04 [facility] Comment on above: Order Comment: REDRA W. PREVIOUS SPECIMEN REJECTED DUE TOHEMOLYSIS. 01/08/24742 Preet Radford White. Performed By: #### L 500.2500 ####[facility] [address] [place], [address] BUN Normal 10-04 [facility] Comment on above: Result Comment: This specimen has been REJECTED due to Laboratory criteria:Hemolyzed.PHLEBOTOMISTS has been notified of need of recollection.01/08/24742 Preet Radford White Performed By: #### L 500.2500 ####[facility] [address] [place], [address] BUN/CRE Normal 01-06 [facility] Comment on above: Result Comment: This specimen has been REJECTED due to Laboratory criteria:Hemolyzed.PHLEBOTOMISTS has been notified of need of recollection.01/08/24742 Preet Radford White Performed By: #### L 500.2500 ####[facility] [address] [place], [address] CA,Total Normal 8.5-10.1 [facility] Comment on above: Result Comment: This specimen has been REJECTED due to Laboratory criteria:Hemolyzed.PHLEBOTOMISTS has been notified of need of recollection.01/08/24742 Preet L White Performed By: #### L 500.2500 ####[facility] [address] [place], [address] CL Normal 98-107 [facility] Comment on above: Result Comment: This specimen has been REJECTED due to Laboratory criteria:Hemolyzed.PHLEBOTOMISTS has been notified of need of recollection.01/08/24742 Preet L White Performed By: #### L 500.2500 ####[facility] [address] [facility] [address] CO2 Normal 21.0-32.0 [facility] Comment on above: Result Comment: This specimen has been REJECTED due to Laboratory criteria:Hemolyzed.PHLEBOTOMISTS has been notified of need of recollection.01/08/24742 Preet L White Performed By: #### L 500.2500 ####[facility] [address] [facility] [address] CREAT,SERUM Normal 0.55-1.02 [facility] Comment on above: Result Comment: This specimen has been REJECTED due to Laboratory criteria:Hemolyzed.PHLEBOTOMISTS has been notified of need of recollection.01/08/24742 Preet L White Performed By: #### L 500.2500 ####[facility] [address] [facility] [address] EST GFR Normal >60 [facility] Comment on above: Result Comment: This specimen has been REJECTED due to Laboratory criteria:Hemolyzed.PHLEBOTOMISTS has been notified of need of recollection.01/08/24742 Preet L White Performed By: #### L 500.2500 ####[facility] [address] [place], [address] EST GFR - AA Normal >60 [facility] Comment on above: Result Comment: This specimen has been REJECTED due to Laboratory criteria:Hemolyzed.PHLEBOTOMISTS has been notified of need of recollection.01/08/24742 Preet L White Performed By: #### L 500.2500 ####[facility] [address] [place], [address] GAP Normal 5-15 [facility] Comment on above: Result Comment: This specimen has been REJECTED due to Laboratory criteria:Hemolyzed.PHLEBOTOMISTS has been notified of need of recollection.01/08/24742 Preet L White Performed By: #### L 500.2500 ####[facility] [address] [place], [address] GLU Normal 74-106 [facility] Comment on above: Result Comment: This specimen has been REJECTED due to Laboratory criteria:Hemolyzed.PHLEBOTOMISTS has been notified of need of recollection.01/08/24742 Preet L White Performed By: #### L 500.2500 ####[facility] [address] [facility] [address] Potassium Normal 3.5-5.1 [facility] Comment on above: Result Comment: This specimen has been REJECTED due to Laboratory criteria:Hemolyzed.PHLEBOTOMISTS has been notified of need of recollection.01/08/24742 Preet L White Performed By: #### L 500.2500 ####[facility] [address] [facility] [address] Basic Metabolic Profile (BMP) Normal 136-145 [facility] Comment on above: Result Comment: This specimen has been REJECTED due to Laboratory criteria:Hemolyzed.PHLEBOTOMISTS has been notified of need of recollection.01/08/24742 Preet L White Performed By: #### L 500.2500 ####[facility] [address] [place], [address] Basic Metabolic Profile (BMP )on 01-06-2023 BUN/CRE 22.3 RATIO High - [facility] Comment on above: Performed By: #### L 100.0100, L500.2500 ####[facility] [address] [place], [address] CA,Total 9.6 mg/dL Normal 8.5-10.1 [facility] Comment on above: Performed By: #### L 100.0100, L500.2500 ####[facility] [address] [place], [address] Chloride [Moles/Vol] 105 mmol/L Normal 98-107 [facility] Comment on above: Performed By: #### L 100.0100, L500.2500 ####[facility] [address] [place], [address] CO2 [Moles/Vol] 24.0 mmol/L Normal 21.0-32.0 [facility] Comment on above: Performed By: #### L 100.0100, L500.2500 ####[facility] [address] [place], [address] Creatinine [Mass/Vol] 1.39 mg/dL High 0.55-1.02 [facility] Comment on above: Result Comment: The validity of the calculated GFR GFRAA in patients over70 years has not been determined. Clinical correlation isessential. Performed By: #### L 100.0100, L500.2500 ####[facility] [address] [place], [address] ECRCL 35.49 ml/min Normal [facility] Comment on above: Performed By: #### L 100.0100, L500.2500 ####[facility] [address] [place], [address] EST GFR - AA 47 mL/min Low >60 [facility] Comment on above: Result Comment: Afri can Vietnamese GFR Calc Performed By: #### L 100.0100, L500.2500 ####[facility] [address] [place], [address] GAP 7 Normal 5-15 [facility] Comment on above: Performed By: #### L 100.0100, L500.2500 ####[facility] [address] [place], [address] GFR/1.73 sq M.predicted among non-blacks MDRD (S/P/Bld) [Vol rate/Area] 39 mL/min/{1.73_m2} Low >60 [facility] Comment on above: Result Comment: Non- GFR Calc Performed By: #### L 100.0100, L500.2500 ####[facility] [address] [place], [address] Glucose [Mass/Vol] 106 mg/dL Normal 74-106 [facility] Comment on above: Result Comment: Fast ing Glucose result from 100 to 125 mg/dLsuggests IMPAIRED HOMEOSTASIS per A.D.A. criteria. Performed By: #### L 100.0100, L500.2500 ####[facility] [address] [place], [address] Potassium [Moles/Vol] 4.3 mmol/L Normal 3.5-5.1 [facility] Comment on above: Performed By: #### L 100.0100, L500.2500 ####[facility] [address] [place], [address] Sodium [Moles/Vol] 136 mmol/L Normal 136-145 [facility] Comment on above: Performed By: #### L 100.0100, L500.2500 ####[facility] [address] [place], [address] Urea nitrogen [Mass/Vol] 31 mg/dL High 7-18 [facility] Comment on above: Performed By: #### L 100.0100, L500.2500 ####[facility] [address] [place], [address] Brain/Head without Contrasto n - Brain/Head without Contrast Normal [facility] CBC W/Diff, Automatedon 10-2 0 Absolute Lymph 1.42 X10 3/uL Normal 0.83-4.51 [facility] Comment on above: Performed By: #### L 100.0100, L500.2500 ####[facility] [address] [place], [address] Absolute Neut 7.4 X10 3/uL Normal 2.0-7.7 [facility] Comment on above: Performed By: #### L 100.0100, L500.2500 ####[facility] [address] [place], [address] Basophils/100 WBC (Bld) 0.9 % Normal 0-1 [facility] Comment on above: Performed By: #### L 100.0100, L500.2500 ####[facility] [address] [place], [address] Eosinophils/100 WBC (Bld) 0.3 % Normal 0-5 [facility] Comment on above: Performed By: #### L 100.0100, L500.2500 ####[facility] [address] [place], [address] Erythrocyte distribution width (RBC) [Ratio] 13.5 % Normal 11.6-14.6 [facility] Comment on above: Performed By: #### L 100.0100, L500.2500 ####[facility] [address] [place], [address] Hematocrit (Bld) [Volume fraction] 45.3 % Normal 37-47 [facility] Comment on above: Performed By: #### L 100.0100, L500.2500 ####[facility] [address] [place], [address] Hemoglobin (Bld) [Mass/Vol] 15.0 g/dL Normal 12.0-15.0 [facility] Comment on above: Performed By: #### L 100.0100, L500.2500 ####[facility] [address] [place], [address] IG% 0.600 Normal 0.0-0.9 [facility] Comment on above: Result Comment: IG% - Immature Granulocytes (promyelocytes, myelocytes andmetamyelocytes) > 1% indicates that a LEFT SHIFT is Present. Performed By: #### L 100.0100, L500.2500 ####[facility] [address] [place], [address] Lymphocytes/100 WBC (Bld) 14.2 % Low 19-41 [facility] Comment on above: Performed By: #### L 100.0100, L500.2500 ####[facility] [address] [place], [address] MCH (RBC) [Entitic mass] 32.3 pg High 27.0-32.0 [facility] Comment on above: Performed By: #### L 100.0100, L500.2500 ####[facility] [address] [place], [address] MCHC (RBC) [Mass/Vol] 33.1 g/dL Normal 32-36 [facility] Comment on above: Performed By: #### L 100.0100, L500.2500 ####[facility] [address] [place], [address] MCV (RBC) [Entitic vol] 97.4 fL Normal 81-99 [facility] Comment on above: Performed By: #### L 100.0100, L500.2500 ####[facility] [address] [place], [address] Monocytes/100 WBC (Bld) 9.8 % Normal 0-10 [facility] Comment on above: Performed By: #### L 100.0100, L500.2500 ####[facility] [address] [place], [address] Neutrophils/100 WBC (Bld) 74.2 % High 47-70 [facility] Comment on above: Performed By: #### L 100.0100, L500.2500 ####[facility] [address] [place], [address] Nucleated RBC (Bld) [#/Vol] 0 10*3/uL Normal 0-5 [facility] Comment on above: Performed By: #### L 100.0100, L500.2500 ####[facility] [address] [place], [address] Platelet mean volume (Bld) [Entitic vol] 12.1 fL High 6.2-12.0 [facility] Comment on above: Performed By: #### L 100.0100, L500.2500 ####[facility] [address] [place], [address] Platelets (Bld) [#/Vol] 193 10*3/uL Normal 150-450 [facility] Comment on above: Performed By: #### L 100.0100, L500.2500 ####[facility] [address] [place], [address] RBC (Bld) [#/Vol] 4.65 10*6/uL Normal 4.2-5.4 [facility] Comment on above: Performed By: #### L 100.0100, L500.2500 ####[facility] [address] [place], [address] RDW SD 48.4 fl High 35.1-43.9 [facility] Comment on above: Performed By: #### L 100.0100, L500.2500 ####[facility] [address] [place], [address] WBC (Bld) [#/Vol] 10.0 10*3/uL Normal 4.4-11.0 [facility] Comment on above: Performed By: #### L 100.0100, L500.2500 ####[facility] [address] [place], [address] Carotid Duplex Ultrasoundon 01-07-2024 Carotid Duplex Ultrasound Normal [facility] Ammoniaon 01-06-2024 Ammonia (P) [Mass/Vol] ug/dL Low 11-32 [facility] Comment on above: Performed By: #### L 503.5510 ####[facility] [address] [place], [address] [facility] Positive Normal [facility] Comment on above: Performed By: #### L 9000.0800 ####[facility] [address] [place], [address] Base excess Calc (Bld) [Moles/Vol] -1 mmol/L Normal -2 to +2 [facility] Comment on above: Performed By: #### L 9000.0800 ####[facility] [address] [place], [address] Blood Gas Type ART Normal [facility] Comment on above: Performed By: #### L 9000.0800 ####[facility] [address] [place], [address] CO2 [Moles/Vol] 23 mmol/L Normal [facility] Comment on above: Performed By: #### L 9000.0800 ####[facility] [address] [place], [address] HCO3 (Bld) [Moles/Vol] 22.4 mmol/L Normal 22-26 [facility] Comment on above: Performed By: #### L 9000.0800 ####[facility] [address] [place], [address] Mode Not entered Normal [facility] Comment on above: Performed By: #### L 9000.0800 ####[facility] [address] [place], [address] O2 Delivery Dev Room Air Normal [facility] Comment on above: Performed By: #### L 9000.0800 ####[facility] [address] [place], [address] pCO2 28.1 mmHg Low 35-45 [facility] Comment on above: Performed By: #### L 0.0800 ####[facility] [address] [place], [address] pH (Bld) 7.51 [pH] High 7.35-7.45 [facility] Comment on above: Performed By: #### L 9000.0800 ####[facility] [address] [place], [address] PO2 85 mmHG Normal 75-100 [facility] Comment on above: Performed By: #### L 0.0800 ####[facility] [address] [place], [address] SITE R Radial Normal [facility] Comment on above: Performed By: #### L 9000.0800 ####[facility] [address] [place], [address] SO2 98 Normal 95-99 [facility] Comment on above: Performed By: #### L 9000.0800 ####[facility] [address] [place], [address] CBC W/Diff, Automatedon 10-1 Absolute Lymph 0.62 X10 3/uL Low 0.83-4.51 [facility] Comment on above: Performed By: #### L 500.4050, L500.4100, L501.9520, L100.0100, L501.9985 ####[facility] [address] [place], [address] Absolute Neut 7.5 X10 3/uL Normal 2.0-7.7 [facility] Comment on above: Performed By: #### L 500.4050, L500.4100, L501.9520, L100.0100, L501.9985 ####[facility] [address] [place], [address] Basophils/100 WBC (Bld) 0.2 % Normal 0-1 [facility] Comment on above: Performed By: #### L 500.4050, L500.4100, L501.9520, L100.0100, L501.9985 ####[facility] [address] [place], [address] Eosinophils/100 WBC (Bld) 0.0 % Normal 0-5 [facility] Comment on above: Performed By: #### L 500.4050, L500.4100, L501.9520, L100.0100, L501.9985 ####[facility] [address] [place], [address] Erythrocyte distribution width (RBC) [Ratio] 13.4 % Normal 11.6-14.6 [facility] Comment on above: Performed By: #### L 500.4050, L500.4100, L501.9520, L100.0100, L501.9985 ####[facility] [address] [place], [address] Hematocrit (Bld) [Volume fraction] 44.3 % Normal 37-47 [facility] Comment on above: Performed By: #### L 500.4050, L500.4100, L501.9520, L100.0100, L501.9985 ####[facility] [address] [place], [address] Hemoglobin (Bld) [Mass/Vol] 14.6 g/dL Normal 12.0-15.0 [facility] Comment on above: Performed By: #### L 500.4050, L500.4100, L501.9520, L100.0100, L501.9985 ####[facility] [address] [place], [address] IG% 0.900 Normal 0.0-0.9 [facility] Comment on above: Result Comment: IG% - Immature Granulocytes (promyelocytes, myelocytes andmetamyelocytes) > 1% indicates that a LEFT SHIFT is Present. Performed By: #### L 500.4050, L500.4100, L501.9520, L100.0100, L501.9985 ####[facility] [address] [place], [address] Lymphocytes/100 WBC (Bld) 7.4 % Low 19-41 [facility] Comment on above: Performed By: #### L 500.4050, L500.4100, L501.9520, L100.0100, L501.9985 ####[facility] [address] [place], [address] MCH (RBC) [Entitic mass] 32.1 pg High 27.0-32.0 [facility] Comment on above: Performed By: #### L 500.4050, L500.4100, L501.9520, L100.0100, L501.9985 ####[facility] [address] [place], [address] MCHC (RBC) [Mass/Vol] 33.0 g/dL Normal 32-36 [facility] Comment on above: Performed By: #### L 500.4050, L500.4100, L501.9520, L100.0100, L501.9985 ####[facility] [address] [place], [address] MCV (RBC) [Entitic vol] 97.4 fL Normal 81-99 [facility] [facility] Comment on above: Performed By: #### L 500.4050, L500.4100, L501.9520, L100.0100, L501.9985 ####[facility] [address] [place], [address] Monocytes/100 WBC (Bld) 2.5 % Normal 0-10 [facility] Comment on above: Performed By: #### L 500.4050, L500.4100, L501.9520, L100.0100, L501.9985 ####[facility] [address] [place], [address] Neutrophils/100 WBC (Bld) 89.0 % High 47-70 [facility] Comment on above: Performed By: #### L 500.4050, L500.4100, L501.9520, L100.0100, L501.9985 ####[facility] [address] [place], [address] Nucleated RBC (Bld) [#/Vol] 0 10*3/uL Normal 0-5 [facility] Comment on above: Performed By: #### L 500.4050, L500.4100, L501.9520, L100.0100, L501.9985 ####[facility] [address] [place], [address] Platelet mean volume (Bld) [Entitic vol] 12.4 fL High 6.2-12.0 [facility] Comment on above: Performed By: #### L 500.4050, L500.4100, L501.9520, L100.0100, L501.9985 ####[facility] [address] [place], [address] Platelets (Bld) [#/Vol] 188 10*3/uL Normal 150-450 [facility] Comment on above: Performed By: #### L 500.4050, L500.4100, L501.9520, L100.0100, L501.9985 ####[facility] [address] [place], [address] RBC (Bld) [#/Vol] 4.55 10*6/uL Normal 4.2-5.4 [facility] Comment on above: Performed By: #### L 500.4050, L500.4100, L501.9520, L100.0100, L501.9985 ####[facility] [address] [place], [address] RDW SD 48.2 fl High 35.1-43.9 [facility] Comment on above: Performed By: #### L 500.4050, L500.4100, L501.9520, L100.0100, L501.9985 ####[facility] [address] [place], [address] WBC (Bld) [#/Vol] 8.4 10*3/uL Normal 4.4-11.0 [facility] Comment on above: Performed By: #### L 500.4050, L500.4100, L501.9520, L100.0100, L501.9985 ####[facility] [address] [place], [address] Comprehensive Metabolic Prof ilon 01-06-2024 Albumin [Mass/Vol] 3.3 g/dL Normal 3.2-5.0 [facility] Comment on above: Order Comment: Comme nts: NPO at [place] prior to lipid panel Performed By: #### L 500.4050, L500.4100, L501.9520, L100.0100, L501.9985 ####[facility] [address] [place], [address] Albumin/Globulin [Mass ratio] 0.9 {ratio} Normal 0.9-2.4 [facility] Comment on above: Order Comment: Comme nts: NPO at [place] prior to lipid panel Performed By: #### L 500.4050, L500.4100, L501.9520, L100.0100, L501.9985 ####[facility] [address] [place], [address] ALK P 55 U/L Normal 45-117 [facility] Comment on above: Order Comment: Comme nts: NPO at [place] prior to lipid panel Performed By: #### L 500.4050, L500.4100, L501.9520, L100.0100, L501.9985 ####[facility] [address] [place], [address] ALT [Catalytic activity/Vol] 17 U/L Normal 13-56 [facility] Comment on above: Order Comment: Comme nts: NPO at [place] prior to lipid panel Performed By: #### L 500.4050, L500.4100, L501.9520, L100.0100, L501.9985 ####[facility] [address] [place], [address] AST [Catalytic activity/Vol] 19 U/L Normal 15-37 [facility] Comment on above: Order Comment: Comme nts: NPO at [place] prior to lipid panel Performed By: #### L 500.4050, L500.4100, L501.9520, L100.0100, L501.9985 ####[facility] [address] [place], [address] Bilirubin [Mass/Vol] 1.30 mg/dL High 0.20-1.00 [facility] Comment on above: Order Comment: Comme nts: NPO at [place] prior to lipid panel Result Comment: For patients on eltrombopag therapy, use of Dimension [place] TBIL is not recommended. Performed By: #### L 500.4050, L500.4100, L501.9520, L100.0100, L501.9985 ####[facility] [address] [place], [address] BUN/CRE 22.9 RATIO High 10-20 [facility] Comment on above: Order Comment: Comme nts: NPO at [place] prior to lipid panel Performed By: #### L 500.4050, L500.4100, L501.9520, L100.0100, L501.9985 ####[facility] [address] [place], [address] CA,Total 9.6 mg/dL Normal 8.5-10.1 [facility] Comment on above: Order Comment: Comme nts: NPO at [place] prior to lipid panel Performed By: #### L 500.4050, L500.4100, L501.9520, L100.0100, L501.9985 ####[facility] [address] [place], [address] Chloride [Moles/Vol] 108 mmol/L High 98-107 [facility] Comment on above: Order Comment: Comme nts: NPO at [place] prior to lipid panel Performed By: #### L 500.4050, L500.4100, L501.9520, L100.0100, L501.9985 ####[facility] [address] [place], [address] CO2 [Moles/Vol] 24.0 mmol/L Normal 21.0-32.0 [facility] Comment on above: Order Comment: Comme nts: NPO at [place] prior to lipid panel Performed By: #### L 500.4050, L500.4100, L501.9520, L100.0100, L501.9985 ####[facility] [address] [place], [address] Creatinine [Mass/Vol] 1.44 mg/dL High 0.55-1.02 [facility] Comment on above: Order Comment: Comme nts: NPO at [place] prior to lipid panel Result Comment: The validity of the calculated GFR GFRAA in patients over70 years has not been determined. Clinical correlation isessential. Performed By: #### L 500.4050, L500.4100, L501.9520, L100.0100, L501.9985 ####[facility] [address] [place], [address] ECRCL 34.35 ml/min Normal [facility] Comment on above: Order Comment: Comme nts: NPO at [place] prior to lipid panel Performed By: #### L 500.4050, L500.4100, L501.9520, L100.0100, L501.9985 ####[facility] [address] [place], [address] EST GFR - AA 45 mL/min Low >60 [facility] Comment on above: Order Comment: Comme nts: NPO at [place] prior to lipid panel Result Comment: Afri can Vietnamese GFR Calc Performed By: #### L 500.4050, L500.4100, L501.9520, L100.0100, L501.9985 ####[facility] [address] [place], [address] GAP 7 Normal 5-15 [facility] Comment on above: Order Comment: Comme nts: NPO at [place] prior to lipid panel Performed By: #### L 500.4050, L500.4100, L501.9520, L100.0100, L501.9985 ####[facility] [address] [place], [address] GFR/1.73 sq M.predicted among non-blacks MDRD (S/P/Bld) [Vol rate/Area] 37 mL/min/{1.73_m2} Low >60 [facility] Comment on above: Order Comment: Comme nts: NPO at [place] prior to lipid panel Result Comment: Non- GFR Calc Performed By: #### L 500.4050, L500.4100, L501.9520, L100.0100, L501.9985 ####[facility] [address] [place], [address] Globulin (S) [Mass/Vol] 3.6 g/dL Normal 2.2-4.2 [facility] Comment on above: Order Comment: Comme nts: NPO at [place] prior to lipid panel Performed By: #### L 500.4050, L500.4100, L501.9520, L100.0100, L501.9985 ####[facility] [address] [place], [address] Glucose [Mass/Vol] 138 mg/dL High 74-106 [facility] Comment on above: Order Comment: Comme nts: NPO at [place] prior to lipid panel Result Comment: Fast ing Glucose result greater than or equal to 126 mg/dLsuggests DIABETES MELLITUS per A.D.A. criteria. Performed By: #### L 500.4050, L500.4100, L501.9520, L100.0100, L501.9985 ####[facility] [address] [place], [address] Potassium [Moles/Vol] 4.6 mmol/L Normal 3.5-5.1 [facility] Comment on above: Order Comment: Comme nts: NPO at [place] prior to lipid panel Performed By: #### L 500.4050, L500.4100, L501.9520, L100.0100, L501.9985 ####[facility] [address] [place], [address] Sodium [Moles/Vol] 139 mmol/L Normal 136-145 [facility] Comment on above: Order Comment: Comme nts: NPO at [place] prior to lipid panel Performed By: #### L 500.4050, L500.4100, L501.9520, L100.0100, L501.9985 ####[facility] [address] [place], [address] T PROT 6.9 g/dL Normal 6.4-8.2 [facility] Comment on above: Order Comment: Comme nts: NPO at [place] prior to lipid panel Performed By: #### L 500.4050, L500.4100, L501.9520, L100.0100, L501.9985 ####[facility] [address] [place], [address] Urea nitrogen [Mass/Vol] 33 mg/dL High 7-18 [facility] Comment on above: Order Comment: Comme nts: NPO at [place] prior to lipid panel Performed By: #### L 500.4050, L500.4100, L501.9520, L100.0100, L501.9985 ####[facility] [address] [place], [address] Hemoglobin A1con 01-06-2024 HbA1c (Bld) [Mass fraction] 5.8 % High 3.8-5.6 [facility] Comment on above: Result Comment: Norm al < 5.7 % Prediabetic 5.7 - 6.4 % Diabetic >or= 6.5 % Please note range changes. Performed By: #### L 500.4050, L500.4100, L501.9520, L100.0100, L501.9985 ####[facility] [address] [place], [address] Lipid Profileon 01-06-2024 Cholesterol [Mass/Vol] 201 mg/dL High 200 [facility] Comment on above: Order Comment: Comme nts: NPO at [place] prior to lipid panel Result Comment: <200 mg/dL Desirable 200-240 mg/dL Borderline >240 mg/dL High Risk Performed By: #### L 500.4050, L500.4100, L501.9520, L100.0100, L501.9985 ####[facility] [address] [place], [address] Cholesterol in HDL [Mass/Vol] 41 mg/dL Normal [facility] Comment on above: Order Comment: Comme nts: NPO at [place] prior to lipid panel Result Comment: The drugs N-Acetylcysteine and Metamizole may falselydepress this assay. Reference Range HDL <40 mg/dL Low HDL Cholesterol HDL >or= 60 mg/dL High HDL Cholesterol Performed By: #### L 500.4050, L500.4100, L501.9520, L100.0100, L501.9985 ####[facility] [address] [place], [address] Cholesterol in LDL [Mass/Vol] 140 mg/dL High 0-130 [facility] Comment on above: Order Comment: Comme nts: NPO at [place] prior to lipid panel Performed By: #### L 500.4050, L500.4100, L501.9520, L100.0100, L501.9985 ####[facility] [address] [place], [address] Cholesterol in VLDL [Mass/Vol] 20 mg/dL Normal 5-40 [facility] Comment on above: Order Comment: Comme nts: NPO at [place] prior to lipid panel Performed By: #### L 500.4050, L500.4100, L501.9520, L100.0100, L501.9985 ####[facility] [address] [place], [address] Triglyceride [Mass/Vol] 99 mg/dL Normal [facility] Comment on above: Order Comment: Comme nts: NPO at [place] prior to lipid panel Result Comment: The drugs N-Acetylcysteine and Metamizole may falselydepress this assay.Serum Triglycerides Reference Interval Normal <150 mg/dL Borderline high 150 - 199 mg/dL High 200 - 499 mg/dL Very High > or = 500 mg/dL Performed By: #### L 500.4050, L500.4100, L501.9520, L100.0100, L501.9985 ####[facility] [address] [place], [address] MR/CON.PCM.NEon 01-06-2024 MR/CON.PCM.NE Normal [facility] RESPIRATORY PANEL MOLECULARo n 01-06-2024 RP PANEL Normal [facility] Comment on above: Performed By: #### M 100.638 ####[facility] [address] [place], [address] Thyroid Stim Hormone (TSH)on 01-06-2024 TSH 1.140 uIU/mL Normal 0.358-3.740 [facility] Comment on above: Order Comment: Comme nts: NPO at [place] prior to lipid panel Performed By: #### L 500.4050, L500.4100, L501.9520, L100.0100, L501.9985 ####[facility] [address] [place], [address] 12 Lead EKGon 01-05-2024 12 Lead EKG Normal [facility] BNP,B-Type NATRIURETIC PEPTI Delroy 01-05-2024 Natriuretic peptide B (Bld) [Mass/Vol] 161.7 pg/mL High 0-100 [facility] Comment on above: Performed By: #### L 509.7000, L501.5200, L503.6620 ####[facility] [address] [place], [address] Basic Metabolic Profile (BMP )on 01-05-2024 BUN/CRE 23.0 RATIO High 10-20 [facility] Comment on above: Order Comment: 1Y Performed By: #### L 300.4310, L501.5425, L300.3900, L503.6005, L100.0100, L500.2500 ####[facility] [address] [place], [address] CA,Total 9.4 mg/dL Normal 8.5-10.1 [facility] Comment on above: Order Comment: 1Y Performed By: #### L 300.4310, L501.5425, L300.3900, L503.6005, L100.0100, L500.2500 ####[facility] [address] [place], [address] Chloride [Moles/Vol] 104 mmol/L Normal 98-107 [facility] Comment on above: Order Comment: 1Y Performed By: #### L 300.4310, L501.5425, L300.3900, L503.6005, L100.0100, L500.2500 ####[facility] [address] [place], [address] CO2 [Moles/Vol] 28.0 mmol/L Normal 21.0-32.0 [facility] Comment on above: Order Comment: 1Y Performed By: #### L 300.4310, L501.5425, L300.3900, L503.6005, L100.0100, L500.2500 ####[facility] [address] [place], [address] Creatinine [Mass/Vol] 1.48 mg/dL High 0.55-1.02 [facility] Comment on above: Order Comment: 1Y Result Comment: The validity of the calculated GFR GFRAA in patients over70 years has not been determined. Clinical correlation isessential. Performed By: #### L 300.4310, L501.5425, L300.3900, L503.6005, L100.0100, L500.2500 ####[facility] [address] [place], [address] ECRCL 33.57 ml/min Normal [facility] Comment on above: Order Comment: 1Y Performed By: #### L 300.4310, L501.5425, L300.3900, L503.6005, L100.0100, L500.2500 ####[facility] [address] [place], [address] EST GFR - AA 43 mL/min Low >60 [facility] Comment on above: Order Comment: 1Y Result Comment: Afri can Vietnamese GFR Calc Performed By: #### L 300.4310, L501.5425, L300.3900, L503.6005, L100.0100, L500.2500 ####[facility] [address] [place], [address] GAP 7 Normal 5-15 [facility] Comment on above: Order Comment: 1Y Performed By: #### L 300.4310, L501.5425, L300.3900, L503.6005, L100.0100, L500.2500 ####[facility] [address] [place], [address] GFR/1.73 sq M.predicted among non-blacks MDRD (S/P/Bld) [Vol rate/Area] 36 mL/min/{1.73_m2} Low >60 [facility] Comment on above: Order Comment: 1Y Result Comment: Non- GFR Calc Performed By: #### L 300.4310, L501.5425, L300.3900, L503.6005, L100.0100, L500.2500 ####[facility] [address] [place], [address] Glucose [Mass/Vol] 128 mg/dL High 74-106 [facility] Comment on above: Order Comment: 1Y Result Comment: Fast ing Glucose result greater than or equal to 126 mg/dLsuggests DIABETES MELLITUS per A.D.A. criteria. Performed By: #### L 300.4310, L501.5425, L300.3900, L503.6005, L100.0100, L500.2500 ####[facility] [address] [place], [address] Potassium [Moles/Vol] 4.1 mmol/L Normal 3.5-5.1 [facility] Comment on above: Order Comment: 1Y Performed By: #### L 300.4310, L501.5425, L300.3900, L503.6005, L100.0100, L500.2500 ####[facility] [address] [place], [address] Sodium [Moles/Vol] 139 mmol/L Normal 136-145 [facility] Comment on above: Order Comment: 1Y Performed By: #### L 300.4310, L501.5425, L300.3900, L503.6005, L100.0100, L500.2500 ####[facility] [address] [place], [address] Urea nitrogen [Mass/Vol] 34 mg/dL High -18 [facility] Comment on above: Order Comment: 1Y Performed By: #### L 300.4310, L501.5425, L300.3900, L503.6005, L100.0100, L500.2500 ####[facility] [address] [place], [address] Brain without Contraston -2023 Brain without Contrast Normal [facility] CBC W/Diff, Automatedon 12-18 Absolute Lymph 1.20 X10 3/uL Normal 0.83-4.51 [facility] Comment on above: Performed By: #### L 300.4310, L501.5425, L300.3900, L503.6005, L100.0100, L500.2500 ####[facility] [address] [place], [address] Absolute Neut 6.7 X10 3/uL Normal 2.0-7.7 [facility] Comment on above: Performed By: #### L 300.4310, L501.5425, L300.3900, L503.6005, L100.0100, L500.2500 ####[facility] [address] [place], [address] Basophils/100 WBC (Bld) 0.8 % Normal 0-1 [facility] Comment on above: Performed By: #### L 300.4310, L501.5425, L300.3900, L503.6005, L100.0100, L500.2500 ####[facility] [address] [place], [address] Eosinophils/100 WBC (Bld) 0.2 % Normal 0-5 [facility] Comment on above: Performed By: #### L 300.4310, L501.5425, L300.3900, L503.6005, L100.0100, L500.2500 ####[facility] [address] [place], [address] Erythrocyte distribution width (RBC) [Ratio] 13.3 % Normal 11.6-14.6 [facility] Comment on above: Performed By: #### L 300.4310, L501.5425, L300.3900, L503.6005, L100.0100, L500.2500 ####[facility] [address] [place], [address] Hematocrit (Bld) [Volume fraction] 45.6 % Normal 37-47 [facility] Comment on above: Performed By: #### L 300.4310, L501.5425, L300.3900, L503.6005, L100.0100, L500.2500 ####[facility] [address] [place], [address] Hemoglobin (Bld) [Mass/Vol] 15.2 g/dL High 12.0-15.0 [facility] Comment on above: Performed By: #### L 300.4310, L501.5425, L300.3900, L503.6005, L100.0100, L500.2500 ####[facility] [address] [place], [address] IG% 0.800 Normal 0.0-0.9 [facility] Comment on above: Result Comment: IG% - Immature Granulocytes (promyelocytes, myelocytes andmetamyelocytes) > 1% indicates that a LEFT SHIFT is Present. Performed By: #### L 300.4310, L501.5425, L300.3900, L503.6005, L100.0100, L500.2500 ####[facility] [address] [place], [address] Lymphocytes/100 WBC (Bld) 13.6 % Low 19-41 [facility] Comment on above: Performed By: #### L 300.4310, L501.5425, L300.3900, L503.6005, L100.0100, L500.2500 ####[facility] [address] [place], [address] MCH (RBC) [Entitic mass] 32.5 pg High 27.0-32.0 [facility] Comment on above: Performed By: #### L 300.4310, L501.5425, L300.3900, L503.6005, L100.0100, L500.2500 ####[facility] [address] [place], [address] MCHC (RBC) [Mass/Vol] 33.3 g/dL Normal 32-36 [facility] Comment on above: Performed By: #### L 300.4310, L501.5425, L300.3900, L503.6005, L100.0100, L500.2500 ####[facility] [address] [place], [address] MCV (RBC) [Entitic vol] 97.4 fL Normal 81-99 [facility] Comment on above: Performed By: #### L 300.4310, L501.5425, L300.3900, L503.6005, L100.0100, L500.2500 ####[facility] [address] [place], [address] Monocytes/100 WBC (Bld) 8.4 % Normal 0-10 [facility] Comment on above: Performed By: #### L 300.4310, L501.5425, L300.3900, L503.6005, L100.0100, L500.2500 ####[facility] [address] [place], [address] Neutrophils/100 WBC (Bld) 76.2 % High 47-70 [facility] Comment on above: Performed By: #### L 300.4310, L501.5425, L300.3900, L503.6005, L100.0100, L500.2500 ####[facility] [address] [place], [address] Nucleated RBC (Bld) [#/Vol] 0 10*3/uL Normal 0-5 [facility] Comment on above: Performed By: #### L 300.4310, L501.5425, L300.3900, L503.6005, L100.0100, L500.2500 ####[facility] [address] [place], [address] Platelet mean volume (Bld) [Entitic vol] 12.2 fL High 6.2-12.0 [facility] Comment on above: Performed By: #### L 300.4310, L501.5425, L300.3900, L503.6005, L100.0100, L500.2500 ####[facility] [address] [place], [address] Platelets (Bld) [#/Vol] 187 10*3/uL Normal 150-450 [facility] Comment on above: Performed By: #### L 300.4310, L501.5425, L300.3900, L503.6005, L100.0100, L500.2500 ####[facility] [address] [place], [address] RBC (Bld) [#/Vol] 4.68 10*6/uL Normal 4.2-5.4 [facility] Comment on above: Performed By: #### L 300.4310, L501.5425, L300.3900, L503.6005, L100.0100, L500.2500 ####[facility] [address] [place], [address] RDW SD 48.6 fl High 35.1-43.9 [facility] Comment on above: Performed By: #### L 300.4310, L501.5425, L300.3900, L503.6005, L100.0100, L500.2500 ####[facility] [address] [place], [address] WBC (Bld) [#/Vol] 8.8 10*3/uL Normal 4.4-11.0 [facility] Comment on above: Performed By: #### L 300.4310, L501.5425, L300.3900, L503.6005, L100.0100, L500.2500 ####[facility] [address] [place], [address] CTA Head AND Neck W/ Contras ton 01-05-2024 CTA Head AND Neck W/ Contrast Normal [facility] Chest 1 View (Portable)on Chest 1 View (Portable) Normal [facility] Echo Complete W/ Contraston 01-05-2024 Echo Complete W/ Contrast Normal [facility] Emergency Department Summary on 01-05-2024 Emergency Department Summary Normal [facility] H AND P Exam - Hospitaliston 01-05-2024 H&P Exam - Hospitalist Normal [facility] L501.4020on 01-05-2024 TROPONIN-I HS 24 pg/mL Normal 3.0-54.0 [facility] Comment on above: Result Comment: Plea se Note: New Test Units and Gender Specific Reference Ranges. For more information see Policy Stat Procedure [place] High Sensitivity Troponin (TNIH) and attachments. Performed By: #### L 501.4020 ####[facility] [address] [place], [address] L501.5425on 01-05-2024 TROPONIN-I HS 24 pg/mL Normal 3.0-54.0 [facility] Comment on above: Order Comment: 1Y Result Comment: Moriah horton Note: New Test Units and Gender Specific Reference Ranges. For more information see Policy Stat Procedure [place] High Sensitivity Troponin (TNIH) and attachments. Performed By: #### L 300.4310, L501.5425, L300.3900, L503.6005, L100.0100, L500.2500 ####[facility] [address] [place], [address] Lactic Acidon 01-05-2024 Lactate [Moles/Vol] 1.8 mmol/L Normal 0.4-1.9 [facility] Comment on above: Order Comment: Y Performed By: #### L 300.4310, L501.5425, L300.3900, L503.6005, L100.0100, L500.2500 ####[facility] [address] [place], [address] M100.678on 01-05-2024 M100.678 Pending SARS-CoV-2 (COVID 19) Negative INFLUENZA A Negative INFLUENZA B Negative RSV PCR Negative Normal [facility] Comment on above: Performed By: #### M 100.678 ####[facility] [address] [place], [address] Magnesiumon 01-05-2024 Magnesium [Mass/Vol] 2.4 mg/dL Normal 1.6-2.6 [facility] Comment on above: Order Comment: Comme nts: may add to ED labs Performed By: #### L 509.7000, L501.5200, L503.6620 ####[facility] [address] [place], [address] Partial Thromboplast Timeon 01-05-2024 aPTT Coag (Bld) [Time] 27.0 s Normal 24.1-36.2 [facility] Comment on above: Performed By: #### L 300.4310, L501.5425, L300.3900, L503.6005, L100.0100, L500.2500 ####[facility] [address] [place], [address] Procalcitoninon 01-05-2024 Procalcitonin 0.08 ng/mL Normal 0.00-0.09 [facility] Comment on above: Result Comment: A pr [...] Performed By: #### L 509.7000, L501.5200, L503.6620 ####[facility] [address] [place], [address] Prothrombin Time w/INRon INR Coag (PPP) [Relative time] 1.6 {INR} Normal [facility] Comment on above: Performed By: #### L 300.4310, L501.5425, L300.3900, L503.6005, L100.0100, L500.2500 ####[facility] [address] [place], [address] PT Coag (PPP) [Time] 18.9 s High 11.7-14.9 [facility] Comment on above: Performed By: #### L 300.4310, L501.5425, L300.3900, L503.6005, L100.0100, L500.2500 ####[facility] [address] [place], [address] Urinalysis, Completeon 01-04 CAST,HYALINE 0-5 SEEN Normal 0-5 [facility] Comment on above: Order Comment: JESÚS CTOR TO SPECIFY Performed By: #### L 400.0001 ####[facility] [address] [place], [address] RBC 0-5 SEEN Normal 0-5 [facility] Comment on above: Order Comment: JESÚS CTOR TO SPECIFY Performed By: #### L 400.0001 ####[facility] [address] [place], [address] WBC 0-5 SEEN Normal 0-5 [facility] Comment on above: Order Comment: JESÚS CTOR TO SPECIFY Performed By: #### L 400.0001 ####[facility] [address] [place], [address] EPI,SQUAMOUS 0-5 SEEN Normal 5-10 [facility] Comment on above: Order Comment: JESÚS CTOR TO SPECIFY Performed By: #### L 400.0001 ####[facility] [address] [place], [address] BACTERIA 0 SEEN Normal None Seen [facility] Comment on above: Order Comment: JESÚS CTOR TO SPECIFY Performed By: #### L 400.0001 ####[facility] [address] [place], [address] Mucus Ql (Urine sed) 0 SEEN Normal [facility] Comment on above: Order Comment: JESÚS CTOR TO SPECIFY Performed By: #### L 400.0001 ####[facility] [address] [place], [address] 36on 01-04-2024 36 I spoke w/ Juana in Dr. Garces's office, asking for echo order to be faxed. I placed order, Teofilo Hopkins DNP to sign, order needs faxed to Juana's attention @ [phone]. Time frame dates given to Juana for completion of OV/EKG/echo. KCCQ mailed to pt. [facility] 36 ----- Message from Mónica Hopkins, JEREMIE - SIM sent at 01/04/2024 1:51 PM EDT ----- Please call [place] office and advise regarding registry requirements of one month and one yr appts and echo. Will likely need phone call for KCCQ. [facility] Office Visiton 01-04-2024 Follow-up visit [id number] Brianne Call 1940 F Date Provider Department Center 01/04/2024 [id number]-FOMWNUMÓNICA HOPKINS [facility] [address] No family history on file Level of Service:90604 [place] OFFICE/OUTPATIENT ESTABLISHED MOD MDM 30 MIN Reason for Visit and Comments: Cardiac Valve Problem [1334] - One week post TAVR [facility] Progress Noteon 01-04-2024 Progress Note [facility] [address] [facility] [address] Dept: [phone] Dept Visit type: Established : 1940 Reason for Visit: Cardiac Valve Problem (One week post TAVR) Assessment and Plan 1. Chronic atrial fibrillation (HCC). HR stable. Continue Apixaban 2. Severe aortic stenosis. S/p tAVR. Continue Eliquis. Will contact [place] regarding follow up and registry requirements. SBE prophylaxis. Plan echo in one month 3. Stage 3a chronic kidney disease (HCC). Renal function remains stable post procedure. Advised that kidney function should be followed half-way. GFR 27--> 46 4. Left heart failure (HCC). Improved after TAVR, EF 30%--> 50 %, continue furosemide, Aldactone, Farxiga, metoprolol (allerg to landon/ARB) Plan follow up in [place] Subjective Ms Call is an 83 yr old female with a PMH of permanent AF, HFrEF, HTN, HPL, CKD stage 3b, obesity, GERD, and severe with EF 30%, mean and peak gradients 49/71 mm Hg. She underwent cardiac cath at [facility] which showed non obstructive CAD. She underwent [...] wrist complaints. She wishes to follow in [place] as travel is difficult for her Allergies [...] 12/25/2023 Performed by Harjeet Huffman MD at [facility] OR CATARACT EXTRACTION HYSTERECTOMY No family [...] my specialty: Independent interpretation of tests: Mónica Hopkins, FUSE MAKER - GUEST SERVICE SUPERVISOR Normal [facility] BASIC METABOLIC PANELon 10-0 Anion gap [Moles/Vol] 7 mmol/L Normal 3-13 [facility] Comment on above: Performed By: #### L AB15 ####Nephrologist: AIDE RUEDA ([id number])[facility] ([address] Calcium [Mass/Vol] 9.1 mg/dL Normal 8.4-10.4 [facility] Comment on above: Performed By: #### L AB15 ####Nephrologist: AIDE [id number])[facility] ([facility])[address] [place] [address] Chloride [Moles/Vol] 108 mmol/L High 98-107 [facility] Comment on above: Performed By: #### L AB15 ####Nephrologist: AIDE [id number])[facility] ([facility])[address] [place] [address] CO2 [Moles/Vol] 19 mmol/L Low 22-30 [facility] Comment on above: Performed By: #### L AB15 ####Nephrologist: AIDE RUEDA ([id number])[facility] [place] [address] Creatinine [Mass/Vol] 1.17 mg/dL High 0.52-1.04 [facility] Comment on above: Performed By: #### L AB15 ####Nephrologist: AIDE RUEDA ([id number])[facility] [place] [address] [place] GLOMERULAR FILTRATION RATE ML/MIN/1.73 SQ M.PREDICTED 46.4 mL/min/1.73m*2 Low >60.0 [facility] Comment on above: Result Comment: Calc ulation based on the Chronic Kidney Disease Epidemiology Collaboration (CKD-EPI) equation refit without adjustment for race Performed By: #### L AB15 ####Nephrologist: AIDE RUEDA ([id number])[facility] [place] [address] [place] Glucose [Mass/Vol] 121 mg/dL High 70-100 [facility] Comment on above: Performed By: #### L AB15 ####Nephrologist: AIDE RUEDA ([id number])[facility] ([facility])[address] [place] [address] Potassium [Moles/Vol] 4.4 mmol/L Normal 3.5-5.1 [facility] Comment on above: Performed By: #### L AB15 ####Nephrologist: AIDE RUEDA ([id number])[facility] ([facility])[address] [place] [address] [place] Sodium [Moles/Vol] 134 mmol/L Low 135-145 [facility] Comment on above: Performed By: #### L AB15 ####Nephrologist: AIDE RUEDA ([id number])[facility] [place] [address] [place] Urea nitrogen [Mass/Vol] 31 mg/dL High 7-17 [facility] Comment on above: Performed By: #### L AB15 ####Nephrologist: AIDE RUEDA ([id number])[facility] ([facility])[address] [place] [address] Basic metabolic 1998 panelon 12-26-2023 Anion gap [Moles/Vol] 7 mmol/L 3 - 13 mmol/L [facility] Calcium [Mass/Vol] 9.1 mg/dL 8.4 - 10. 4 mg/dL [facility] Chloride [Moles/Vol] 108 mmol/L High 98 - 10 7 mmol/L [facility] CO2 [Moles/Vol] 19 mmol/L Low 22 - 30 mmol/L [facility] Creatinine [Mass/Vol] 1.17 mg/dL High 0.52 - 1.04 mg/dL [facility] GFR/1.73 sq M.predicted (S/P/Bld) [Vol rate/Area] 46.4 mL/min Low - PINF [facility] Comment on above: Calculation based on the Chronic Kidney Disease Epidemiology Collaboration (CKD-EPI) equation refit without adjustment for race Glucose [Mass/Vol] 121 mg/dL High 70 - 100 mg/dL [facility] Interpretation and review of laboratory results Abnormal [facility] Potassium [Moles/Vol] 4.4 mmol/L 3.5 - 5.1 mmol/L [facility] Sodium [Moles/Vol] 134 mmol/L Low 135 - 145 mmol/L [facility] Urea nitrogen [Mass/Vol] 31 mg/dL High 7 - 17 mg/dL [facility] CBC (HEMOGRAM)on 12-26-2023 Erythrocyte distribution width (RBC) [Ratio] 13.3 % Normal 11.5-15.0 [facility] Comment on above: Performed By: #### L [id number] ####Nephrologist: AIDE RUEDA ([id number])[facility] ([facility])[address] [place] [address] Hematocrit (Bld) [Volume fraction] 43.0 % Normal 35.0-47.0 [facility] Comment on above: Performed By: #### L AB294 ####Nephrologist: AIDE RUEDA ([id number])[facility])[address] [place] [address] Hemoglobin (Bld) [Mass/Vol] 14.0 g/dL Normal 11.7-16.0 [facility] Comment on above: Performed By: #### L AB294 ####Nephrologist: AIDE RUEDA ([id number])[facility])[address] [place] [address] MCH (RBC) [Entitic mass] 31.9 pg Normal 26.0-34.0 [facility] Comment on above: Performed By: #### L AB294 ####Nephrologist: AIDE RUEDA ([id number])[facility])[address] [place] [address] MCHC 32.6 % Normal 30.5-36.0 [facility] Comment on above: Performed By: #### L AB294 ####Nephrologist: AIDE RUEDA ([id number])[facility] ([facility])[address] [place] [address] MCV (RBC) [Entitic vol] 97.9 fL Normal 77.0-99.0 S [facility] Comment on above: Performed By: #### L [id number] ####Nephrologist: AIDE RUEDA ([id number])[facility])[address] [place] [address] Platelet mean volume (Bld) [Entitic vol] 12.4 fL Normal 9.0-12.7 [facility] Comment on above: Performed By: #### L AB294 ####Nephrologist: AIDE RUEDA ([id number])[facility] ([facility])[address] [place] [address] [place] Platelets (Bld) [#/Vol] 154 10*3/uL Normal 140-440 [facility] Comment on above: Performed By: #### L AB294 ####Nephrologist: AIDE RUEDA ([id number])[facility])[address] [place] [address] RBC (Bld) [#/Vol] 4.39 10*6/uL Normal 3.80-5.20 [facility] Comment on above: Performed By: #### L AB294 ####Nephrologist: AIDE RUEDA ([id number])[facility] ([facility])[address] [place] [address] WBC (Bld) [#/Vol] 11.6 10*3/uL High 3.6-10.7 [facility] Comment on above: Performed By: #### L [id number] ####Nephrologist: AIDE RUEDA ([id number])[facility])[address] [place] [address] CBC panel Auto (Bld)on 12-25 Erythrocyte distribution width (RBC) [Ratio] 13.3 % 11.5 - 15.0 % [facility] Hematocrit (Bld) [Volume fraction] 43.0 % 35.0 - 47.0 % [facility] Hemoglobin (Bld) [Mass/Vol] 14.0 g/dL 11.7 - 16.0 g/dL [facility] Interpretation and review of laboratory results Abnormal [facility] MCH (RBC) [Entitic mass] 31.9 pg 26.0 - 34.0 pg [facility] MCHC (RBC) [Mass/Vol] 32.6 % 30.5 - 36.0 % [facility] MCV (RBC) [Entitic vol] 97.9 fL 77.0 - 99.0 fL [facility] Platelet mean volume (Bld) [Entitic vol] 12.4 fL 9.0 - 12.7 fL [facility] Platelets (Bld) [#/Vol] 154 10*3/uL 140 - 440 10*3/uL [facility] RBC (Bld) [#/Vol] 4.39 10*6/uL 3.80 - 5.2 0 10*6/uL [facility] WBC (Bld) [#/Vol] 11.6 10*3/uL High 3.6 - 10.7 10*3/uL [facility] ECG 12-LEADon 12-26-2023 ECG 12-LEAD IMPRESSION: Atrial fibrillation with slow ventricular rate Repol abnrm suggests ischemia, diffuse leads Electronically Signed On 12-26-2023 16:26:55 EDT by Austin Carmona [facility] No Panel InformationOrdered By: Austin Carmona on 12-26-2023 P [place] 0 degrees [facility] Work Phone: MA Interval 0 ms [facility] Work Phone: QRS [place] 48 degrees [facility] Work Phone: QRSD Interval 103 ms [facility] Work Phone: QT Interval 492 ms [facility] Work Phone: QTC Interval 404 ms [facility] Work Phone: T Wave [place] -74 degrees [facility] Work Phone: [facility] [employer] Work Phone: No Panel Informationon 12-25 Atrial fibrillation with slow ventricular rate Repol abnrm suggests ischemia, diffuse leads Electronically Signed On 12-26-2023 16:26:55 EDT by Austin Carmona Austin Kruger MD - 12/26/2023 IMPRESSION: Atrial fibrillation with slow ventricular rate Repol abnrm suggests ischemia, diffuse leads Electronically Signed On 12-26-2023 16:26:55 EDT by Austin Carmona [facility] P [place] 0 degrees [facility] MA Interval 0 ms [facility] QRS [place] 22 degrees [facility] QRSD Interval 112 ms [facility] Interval 441 ms [facility] QTC Interval 405 ms [facility] T Wave [place] 230 degrees [facility] Austin Carmona MD - 12/26/2023 IMPRESSION: Atrial fibrillation Poor R wave progression, CONSIDER ANTERIOR INFARCT ST and T abnormality Electronically Signed On 12-26-2023 09:21:43 EDT by Austin Carmona [facility] Nursing Noteon 12-26-2023 Nursing Note Discharge instructions given to patient and daughter. Patient verbalizes understanding of medication changes and follow up appointments, and activity restrictions. Discharged to home with daughter. Normal [facility] US Heart TransthoracicOrdere d By: Christopher Ruggiero on 12-26-2023 Ao Root Index 1.47 cm/m2 [facility] Work Phone: Aortic Root 3.1 cm [facility] Work Phone: Aortic Sinus Valsalva 3.1 cm [facility] Work Phone: Aortic Sinus Valsalva Index 1.47 cm/m2 [facility] Work Phone: Ascending Aorta 3.6 cm [facility] Work Phone: Ascending Aorta Index 1.71 cm/m2 [facility] Work Phone: AV Area by Peak Velocity 0.6 cm2 [facility] Work Phone: AV Area by VTI 1.3 cm2 [facility] Work Phone: AV AT 75.0 ms [facility] Work Phone: AV Mean Gradient 21 mmHg [facility] Work Phone: AV Mean Velocity 2.8 m/s [facility] Work Phone: AV Peak Gradient 36 mmHg [facility] Work Phone: AV Peak Velocity 3.0 m/s [facility] Work Phone: AV Velocity Ratio 0.27 [facility] Work Phone: AV VTI 71.0 cm [facility] Work Phone: RAMÓN/BSA Peak Velocity 0.3 cm2/m2 [facility] Work Phone: RAMÓN/BSA VTI 0.6 cm2/m2 [facility] Work Phone: E/E' Lateral 11.25 [facility] Work Phone: E/E' Ratio (Averaged) 16.88 [facility] Work Phone: E/E' Septal 22.50 [facility] Work Phone: EF BP 36 % Abnormal 55 - 100 % [facility] Work Phone: Est. RA Pressure 3 mmHg [facility] Work Phone: Fractional Shortening 2D 29 % 28 - 44 % [facility] [employer] Work Phone: Interpretation and review of laboratory results Abnormal [facility] Work Phone: IVC Diameter 2.2 cm [facility] [employer] Work Phone: IVSd 1.4 cm Abnormal 0.6 - 0.9 cm [facility] [employer] Work Phone: LA Diameter 4.9 cm [facility] [employer] Work Phone: LA Size Index 2.32 cm/m2 [facility] [employer] Work Phone: LA Volume 2C 111 mL Abnormal 22 - 52 mL [facility] [employer] Work Phone: LA Volume 4C 131 mL Abnormal 22 - 52 mL [facility] [employer] Work Phone: LA Volume A/L 137 mL [facility] [employer] Work Phone: LA Volume BP 127 mL Abnormal 22 - 52 mL [facility] [employer] Work Phone: LA Volume Index 2C 53 mL/m2 Abnormal 16 - 34 mL/m2 [facility] [employer] Work Phone: LA Volume Index 4C 62 mL/m2 Abnormal 16 - 34 mL/m2 [facility] [employer] Work Phone: LA Volume Index A/L 65 mL/m2 16 - 34 mL/m2 [facility] [employer] Work Phone: LA Volume Index BP 60 ml/m2 Abnormal 16 - 34 ml/m2 [facility] [employer] Work Phone: LA/AO Root Ratio 1.58 [facility] Work Phone: LV E' Lateral Velocity 8 cm/s [facility] Work Phone: LV E' Septal Velocity 4 cm/s [facility] Work Phone: LV EDV A2C 137 mL [facility] Work Phone: LV EDV A4C 145 mL [facility] [employer] Work Phone: LV EDV BP 148 mL Abnormal 56 - 104 mL [facility] Work Phone: LV EDV Index A2C 65 mL/m2 [facility] Work Phone: LV EDV Index A4C 69 mL/m2 [facility] Work Phone: LV EDV Index BP 70 mL/m2 [facility] [employer] Work Phone: LV Ejection Fraction A2C 36 % [facility] Work Phone: LV Ejection Fraction A4C 35 % [facility] Work Phone: LV ESV A2C 88 mL [facility] Work Phone: LV ESV A4C 94 mL [facility] Work Phone: LV ESV BP 95 mL Abnormal 19 - 49 mL [facility] Work Phone: LV ESV Index A2C 42 mL/m2 [facility] Work Phone: LV ESV Index A4C 45 mL/m2 [facility] Work Phone: LV ESV Index BP 45 mL/m2 [facility] Work Phone: LV Mass 2D 355.3 g Abnormal 67 - 162 g [facility] Work Phone: LV Mass 2D Index 168.4 g/m2 Abnormal 43 - 95 g/m2 [facility] Work Phone: LV RWT Ratio 0.55 [facility] Work Phone: LVIDd 5.5 cm Abnormal 3.9 - 5.3 cm [facility] Work Phone: LVIDd Index 2.61 cm/m2 [facility] Work Phone: LVIDs 3.9 cm [facility] Work Phone: LVIDs Index 1.85 cm/m2 [facility] Work Phone: LVOT Area 4.2 cm2 [facility] Work Phone: LVOT Cardiac Output 3.1 liter/mi nut e [facility] Work Phone: LVOT Diameter 2.3 cm [facility] Work Phone: LVOT Mean Gradient 2 mmHg [facility] Work Phone: LVOT Peak Gradient 3 mmHg [facility] Work Phone: LVOT Peak Velocity 0.8 m/s [facility] Work Phone: LVOT Stroke Volume Index 45.3 mL/m2 [facility] Work Phone: LVOT SV 95.5 ml [facility] Work Phone: LVOT VTI 23.0 cm [facility] Work Phone: LVOT:AV VTI Index 0.32 [facility] Work Phone: LVPWd 1.5 cm Abnormal 0.6 - 0.9 cm [facility] Work Phone: MR VTI 167.4 cm [facility] Work Phone: MV A Velocity 0.53 m/s [facility] Work Phone: MV Area by PHT 3.0 cm2 [facility] Work Phone: MV Area by VTI 2.1 cm2 [facility] Work Phone: MV E Velocity 0.90 m/s [facility] Work Phone: MV E Wave Deceleration Time 149.3 ms [facility] Work Phone: MV E/A 1.70 [facility] Work Phone: MV Max Velocity 1.2 m/s [facility] Work Phone: MV Mean Gradient 2 mmHg [facility] Work Phone: MV Mean Velocity 0.6 m/s [facility] Work Phone: MV Nyquist Velocity 30 cm/s [facility] Work Phone: MV Peak Gradient 6 mmHg [facility] Work Phone: MV PHT 73.0 ms [facility] Work Phone: MV Regurg Velocity PISA 5.3 m/s [facility] Work Phone: MV VTI 46.5 cm [facility] Work Phone: MV:LVOT VTI Index 2.02 [facility] Work Phone: RA Area 4C 65.2 mL [facility] Work Phone: RV Basal Dimension 3.4 cm [facility] Work Phone: RV Free Wall Peak S' 9 cm/s [facility] Work Phone: RV Mid Dimension 1.4 cm [facility] Work Phone: RVSP 41 mmHg [facility] Work Phone: Sinotubular Junction 2.5 cm [facility] Work Phone: TAPSE 1.7 cm 1.7 cm [facility] [employer] Work Phone: TR Max Velocity 3.10 m/s [facility] Work Phone: [facility] [employer] Work Phone: [facility] Transthoracicon Left Ventricle: Left ventricle size is [...] on 12-26-2023 Heart rate 37 /min bpm [facility] [employer] Work Phone: Vital signson 12-26-2023 Heart rate 51 /min bpm [facility] [employer] BASIC METABOLIC PANELon 10-0 Anion gap [Moles/Vol] 9 mmol/L Normal 3-13 [facility] Comment on above: Performed By: #### L AB15 ####Nephrologist: AIDE RUEDA ([id number])[facility] [facility])[address] [place] [address] Calcium [Mass/Vol] 8.5 mg/dL Normal 8.4-10.4 [facility] Comment on above: Performed By: #### L AB15 ####Nephrologist: AIDE RUEDA ([id number])[facility] ([employer])[address] [place] [address] Chloride [Moles/Vol] 113 mmol/L High 98-107 [facility] Comment on above: Performed By: #### L AB15 ####Nephrologist: AIDE RUEDA ([phone])[facility] ([facility])[address] [place] [address] CO2 [Moles/Vol] 19 mmol/L Low 22-30 [facility] Comment on above: Performed By: #### L AB15 ####Nephrologist: AIDE RUEDA ([phone])[facility])[address] [place] [address] Creatinine [Mass/Vol] 1.09 mg/dL High 0.52-1.04 [facility] Comment on above: Performed By: #### L AB15 ####Nephrologist: AIDE RUEDA ([phone])[facility] ([facility])[address] [place] [address] GLOMERULAR FILTRATION RATE ML/MIN/1.73 SQ M.PREDICTED 50.5 mL/min/1.73m*2 Low >60.0 [facility] Comment on above: Result Comment: Calc ulation based on the Chronic Kidney Disease Epidemiology Collaboration (CKD-EPI) equation refit without adjustment for race ORDER COMMENTS: Slightly Hemolyzed. Interpret {TESTS AFFECTED BY SLIGHT HEMOLYSIS:98948} with caution. Performed By: #### L AB15 ####Nephrologist: AIDE RUEDA ([id number])[facility] ([facility])[address] [place] [address] [place] Glucose [Mass/Vol] 148 mg/dL High 70-100 [facility] Comment on above: Performed By: #### L AB15 ####Nephrologist: AIDE RUEDA ([phone])[facility])[address] [place] [address] Potassium [Moles/Vol] 4.7 mmol/L Normal 3.5-5.1 [facility] Comment on above: Performed By: #### L AB15 ####Nephrologist: AIDE [id number])[facility])[address] [place] [address] Sodium [Moles/Vol] 141 mmol/L Normal 135-145 [facility] Comment on above: Performed By: #### L [id number] ####Nephrologist: AIDE RUEDA ([id number])[facility] [place] [address] Urea nitrogen [Mass/Vol] 28 mg/dL High 7-17 [facility] Comment on above: Performed By: #### L AB15 ####Nephrologist: AIDE RUEDA ([phone])[facility] [place] [address] BLOOD TYPE AND SCREEN GELon 12-25-2023 ABO GROUPING O Normal [facility] Comment on above: Performed By: #### L [id number] #### Nephrologist: AIDE RUEDA ([id number]) [facility] ([facility]) [address] [place] [address] RH TYPE IN BLOOD Positive Normal [facility] Comment on above: Performed By: #### L [id number] #### Nephrologist: AIDE RUEDA ([id number]) [facility] ([facility]) [address] [place] [address] Basic metabolic 1998 panelon 12-25-2023 Anion gap [Moles/Vol] 9 mmol/L 3 - 13 mmol/L [facility] Calcium [Mass/Vol] 8.5 mg/dL 8.4 - 10. 4 mg/dL [facility] Chloride [Moles/Vol] 113 mmol/L High 98 - 10 7 mmol/L [facility] CO2 [Moles/Vol] 19 mmol/L Low 22 - 30 mmol/L [facility] Creatinine [Mass/Vol] 1.09 mg/dL High 0.52 - 1.04 mg/dL [facility] GFR/1.73 sq M.predicted (S/P/Bld) [Vol rate/Area] 50.5 mL/min Low - PINF [facility] Comment on above: Calculation based on the Chronic Kidney Disease Epidemiology Collaboration (CKD-EPI) equation refit without adjustment for race Glucose [Mass/Vol] 148 mg/dL High 70 - 100 mg/dL [facility] Interpretation and review of laboratory results Abnormal [facility] Potassium [Moles/Vol] 4.7 mmol/L 3.5 - 5.1 mmol/L [facility] Sodium [Moles/Vol] 141 mmol/L 135 - 145 mmol/L [facility] Urea nitrogen [Mass/Vol] 28 mg/dL High 7 - 17 mg/dL [facility] Slightly Hemolyzed. Interpret {TESTS AFFECTED BY SLIGHT HEMOLYSIS:38773} with caution. [facility] Blood type and Crossmatch pa justin (Bld)on 12-25-2023 ABO group Nom (Bld) O [facility] Blood group antibody screen GEL Ql Negative [facility] D Ag Ql (RBC) [facility] CBC (HEMOGRAM)on 12-25-2023 Erythrocyte distribution width (RBC) [Ratio] 13.3 % Normal 11.5-15.0 [facility] Comment on above: Performed By: #### L [id number] ####Nephrologist: AIDE RUEDA ([id number])[facility])[address] [place] [address] Hematocrit (Bld) [Volume fraction] 39.5 % Normal 35.0-47.0 [facility] Comment on above: Performed By: #### L [id number] ####Nephrologist: AIDE RUEDA ([id number])[address] Hemoglobin (Bld) [Mass/Vol] 13.0 g/dL Normal 11.7-16.0 [facility] Comment on above: Performed By: #### L [id number] ####Nephrologist: AIDE RUEDA ([id number])[facility])[address] [place] [address] MCH (RBC) [Entitic mass] 31.9 pg Normal 26.0-34.0 [facility] Comment on above: Performed By: #### L [id number] ####Nephrologist: AIDE RUEDA ([phone])[facility])[address] [place] [address] MCHC 32.9 % Normal 30.5-36.0 [facility] Comment on above: Performed By: #### L [id number] ####Nephrologist: AIDE RUEDA ([id number])[facility])[address] [place] [address] MCV (RBC) [Entitic vol] 97.1 fL Normal 77.0-99.0 [facility] Comment on above: Performed By: #### L [id number] ####Nephrologist: AIDE RUEDA ([id number])[facility] ([facility])[address] [place] [address] Platelet mean volume (Bld) [Entitic vol] 12.2 fL Normal 9.0-12.7 [facility] Comment on above: Performed By: #### L [id number] ####Nephrologist: AIDE RUEDA ([phone])[facility])[address] [place] [address] Platelets (Bld) [#/Vol] 140 10*3/uL Normal 140-440 [facility] Comment on above: Performed By: #### L [id number] ####Nephrologist: AIDE RUEDA ([id number])[facility])[address] [place] [address] RBC (Bld) [#/Vol] 4.07 10*6/uL Normal 3.80-5.20 [facility] Comment on above: Performed By: #### L [id number] ####Nephrologist: AIDE RUEDA ([id number])[facility])[address] [place] [address] WBC (Bld) [#/Vol] 9.1 10*3/uL Normal 3.6-10.7 [facility] Comment on above: Performed By: #### L [id number] ####Nephrologist: AIDE RUEDA ([id number])[facility])[address] [place] [address] CBC panel Auto (Bld)on 12-24 Erythrocyte distribution width (RBC) [Ratio] 13.3 % 11.5 - 15.0 % [facility] Hematocrit (Bld) [Volume fraction] 39.5 % 35.0 - 47.0 % [facility] Hemoglobin (Bld) [Mass/Vol] 13.0 g/dL 11.7 - 16.0 g/dL [facility] Interpretation and review of laboratory results Normal [facility] MCH (RBC) [Entitic mass] 31.9 pg 26.0 - 34.0 pg [facility] MCHC (RBC) [Mass/Vol] 32.9 % 30.5 - 36.0 % [facility] MCV (RBC) [Entitic vol] 97.1 fL 77.0 - 99.0 fL [facility] Platelet mean volume (Bld) [Entitic vol] 12.2 fL 9.0 - 12.7 fL [facility] Platelets (Bld) [#/Vol] 140 10*3/uL 140 - 440 10*3/uL [facility] RBC (Bld) [#/Vol] 4.07 10*6/uL 3.80 - 5.2 0 10*6/uL [facility] WBC (Bld) [#/Vol] 9.1 10*3/uL 3.6 - 10.7 10*3/uL [facility] Cardiac catheterization stud yon 12-25-2023 Successful dtmth-lh-gmdmw TAVR with a 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 Via right radial artery, a 6-Ghanaian sheath was placed and the pigtail catheter was placed into the aortic annulus with confirmation the implant angle. Via the left femoral artery, a 6-Ghanaian sheath was placed. The patient was then heparinized. Next, two Perclose devices were used using the pre-close strategy. A Super Stiff wire was then placed through the second Perclose into the descending aorta. Then, a 14-Ghanaian Soumya E-sheath was introduced over the wire [...] care of your patient while hospitalized at [facility]. I will continue to follow along while hospitalized. Please do not hesitate to call with any questions. [facility] No Panel Informationon 12-24 Blood Expiration Date S [facility] Blood Expiration Date S [facility] Crossmatch interpretation COMP [facility] Dispense Status Crossmatch [facility] Product Blood Type 5100 [facility] PRODUCT CODE [id number] [facility] PRODUCT CODE [id number] [facility] ABO O [facility] Unit Number [id number] [facility] Unit Number [id number] [facility] RH Positive [facility] Unit Volume 300 mL [facility] Op Noteon 12-25-2023 Op Note Date of [...] The valve was passed through the 14 Ghanaian sapient E sheath into the descending thoracic [...] was decannulated transferred stable to recovery. Normal [employer] [facility] US Heart TransthoracicOrdere d By: Otto Fernandez on 12-25-2023 AV Area (Pre-TAVR) 0.3 cm2 [employer] Work Phone: AV Area by Peak Velocity 0.7 cm2 [employer] Work Phone: AV Area by VTI 0.7 cm2 [facility] Work Phone: AV Mean Gradient 14 mmHg [facility] alth Work Phone: AV Mean Gradient (Pre-TAVR) 59 mmHg [employer] [facility] Work Phone: AV Mean Velocity 1.7 m/s [facility] Work Phone: AV Peak Gradient 25 mmHg [facility] Work Phone: AV Peak Gradient (Pre-TAVR) 93 mmHg [facility] Work Phone: AV Peak Velocity 2.5 m/s [facility] Work Phone: AV Peak Velocity (Pre-TAVR) 4.8 m/s [facility] Work Phone: AV Velocity Ratio 0.20 [facility] Work Phone: AV VTI 60.2 cm [facility] Work Phone: RAMÓN/BSA Peak Velocity 0.3 cm2/m2 [facility] Work Phone: RAMÓN/BSA VTI 0.3 cm2/m2 [facility] Work Phone: Est. RA Pressure 3 mmHg [facility] Work Phone: LVOT Area 3.1 cm2 [facility] Work Phone: LVOT Cardiac Output 1.6 liter/mi nut e [facility] Work Phone: LVOT Diameter 2.0 cm [facility] Work Phone: LVOT Mean Gradient 1 mmHg [facility] Work Phone: LVOT Peak Gradient 1 mmHg [facility] Work Phone: LVOT Peak Velocity 0.5 m/s [facility] Work Phone: LVOT Stroke Volume Index 20.6 mL/m2 [facility] Work Phone: LVOT SV 42.7 ml [facility] Work Phone: LVOT VTI 13.6 cm [facility] Work Phone: LVOT:AV VTI Index 0.23 [facility] Work Phone: RVSP 51 mmHg [facility] Work Phone: TR Max Velocity 3.45 m/s [facility] Work Phone: TR Peak Gradient 48 mmHg [facility] Work Phone: [facility] Work Phone: Heart Transthoracicon Aortic Valve: Lucia [...] supine position. No contrast was given. CV [facility] CT ANGIOGRAM TAVRon 12-22-19 CT ANGIOGRAM TAVR Patient Name: BRIANNE CALL : 1940 [facility]#: [id number] Exam Date/Time: 12/12/2023 10:40 Procedure: CT ANGIOGRAM [...] 12/22/2023 11:10 AM EDT --------ORIGINAL REPORT -------- [facility] Valve [facility] Cardiovascular CTA Indication: 83 year-old woman with severe aortic stenosis, being evaluated for transcatheter aortic valve implantation. Technique: Computed tomography of the heart, thoracoabdominal aorta, and iliofemoral system was performed using a [employer] One 320 detector scanner. Images were [...] VELEZ MEGGAN Reason For Exam: aortic stenosis [facility] Valve [facility] Cardiovascular CTA Indication: 83 year-old woman with severe aortic stenosis, being evaluated for transcatheter aortic valve implantation. Technique: Computed tomography of the heart, thoracoabdominal aorta, and iliofemoral system was performed usi (more content not included)... Normal [facility] 36on 12-21-2023 36 Patient has stage 3 b- 4 CKD, stable compared to previous. OK to proceed. Normal [facility] 36 BMP received, reviewed, MA to enter, Creat 1.9 GFR 27. MJennifer Hopkins CNP to review. Normal [facility] 36 I called [facility] for BMP, left message w/ OP lab to fax results. Normal [facility] Basic Metabolic Profile (BMP )on 12-19-2023 BUN/CRE 17.9 RATIO Normal 01-06 [facility] Comment on above: Performed By: #### L 500.2500 ####[facility] [address] [place], [address] CA,Total 9.8 mg/dL Normal 8.5-10.1 [facility] Comment on above: Performed By: #### L 500.2500 ####[facility] [address] [place], [address] Chloride [Moles/Vol] 103 mmol/L Normal 98-107 [facility] Comment on above: Performed By: #### L 500.2500 ####[facility] [address] [place], [address] CO2 [Moles/Vol] 26.0 mmol/L Normal 21.0-32.0 [facility] Comment on above: Performed By: #### L 500.2500 ####[facility] [address] [place], [address] Creatinine [Mass/Vol] 1.90 mg/dL High 0.55-1.02 [facility] Comment on above: Result Comment: The validity of the calculated GFR GFRAA in patients over70 years has not been determined. Clinical correlation isessential. Performed By: #### L 500.2500 ####[facility] [address] [place], [address] EST GFR - AA 33 mL/min Low >60 [facility] Comment on above: Result Comment: Afri can Vietnamese GFR Calc Performed By: #### L 500.2500 ####[facility] [address] [place], [address] GAP 9 Normal 5-15 [facility] Comment on above: Performed By: #### L 500.2500 ####[facility] [address] [place], [address] GFR/1.73 sq M.predicted among non-blacks MDRD (S/P/Bld) [Vol rate/Area] 27 mL/min/{1.73_m2} Low >60 [facility] Comment on above: Result Comment: Non- GFR Calc Performed By: #### L 500.2500 ####[facility] [address] [place], [address] Glucose [Mass/Vol] 119 mg/dL High 74-106 [facility] Comment on above: Result Comment: Fast ing Glucose result from 100 to 125 mg/dLsuggests IMPAIRED HOMEOSTASIS per A.D.A. criteria. Performed By: #### L 500.2500 ####[facility] [address] [place], [address] Potassium [Moles/Vol] 3.8 mmol/L Normal 3.5-5.1 [facility] Comment on above: Performed By: #### L 500.2500 ####[facility] [address] [place], [address] Sodium [Moles/Vol] 138 mmol/L Normal 136-145 [facility] Comment on above: Performed By: #### L 500.2500 ####[facility] [address] [place], [address] Urea nitrogen [Mass/Vol] 34 mg/dL High 7-18 [facility] Comment on above: Performed By: #### L 500.2500 ####[facility] [address] [place], [address] 12-18-2023 36 I can not make any changes or cx the No Show b/c it's past. Normal [facility] 12-16-2023 36 Name of caller: Brianne Contact phone number: [phone] Relationship to Patient: patient Provider: [facility] [facility]OGEL Practice: [facility] Chief Complaint/Reason for Call: Patient had 3 [...] business hours to return their call: N/A [facility] 3612-15-2023 36 Lab order faxed to [place] [facility] [phone]/[facility] on 12-14-2023 36 Per Teofilo Hopkins DNP, will get BMP done on 12/19/23 in [place], RX for Prednisone pended. [place] to fax lab order to [facility], pt notified via phone and verbalizes understanding. [facility] 12-13-2023 36 Pt returned my call, no further issues w/ itching/hives from contrast allergy. I reviewed need for BMP and Prednisone before TAVR. Of note, pt was unaware of any renal insufficiency in the past. Will discuss timing of BMP w/ Teofilo Hopkins DNP. [facility] 36 Per Teofilo Hopkins DNP, pt had allergic reaction to CTA contrast yesterday, and pt with increase in Creat. Plan for Dye Allergy Prep meds will be needed, and repeat BMP. I left vm message for pt to return call. [facility] BLOOD TYPE AND SCREEN GELon 12-12-2023 ABO GROUPING O [facility] Comment on above: Performed By: #### L [id number] ####Nephrologist: AIDE RUEDA ([phone])[facility] ([facility])[address] [place] [address] RH TYPE IN BLOOD Positive Normal [facility] Comment on above: Performed By: #### L [id number] ####Nephrologist: AIDE RUEDA ([id number])[facility])[address] [place] [address] Blood type and Crossmatch pa justin (Bld)on 12-12-2023 ABO group Nom (Bld) O [facility] Blood group antibody screen GEL Ql Negative [facility] D Ag Ql (RBC) Positive [facility] CBC W Auto Differential pane l (Bld)on 12-12-2023 Basophils (Bld) [#/Vol] 0.1 10*3/uL 0.0 - 0.2 10*3/uL [facility] Basophils/100 WBC (Bld) 1.3 % 0.0 - 2.0 % [facility] Eosinophils (Bld) [#/Vol] 0.1 10*3/uL 0.0 - 0.5 10*3/uL [facility] Eosinophils/100 WBC (Bld) 2.0 % 0.0 - 6.0 % [facility] Erythrocyte distribution width (RBC) [Ratio] 13.1 % 11.5 - 15.0 % [facility] Hematocrit (Bld) [Volume fraction] 48.1 % High 35.0 - 47.0 % [facility] Hemoglobin (Bld) [Mass/Vol] 16.0 g/dL 11.7 - 16.0 g/dL [facility] Immature granulocytes (Bld) [#/Vol] 0.1 10*3/uL High NINF - 0.1 10*3/uL [facility] Immature granulocytes/100 WBC (Bld) 0.7 % 0.0 - 2.0 % [facility] Interpretation and review of laboratory results Abnormal [facility] Lymphocytes (Bld) [#/Vol] 1.6 10*3/uL 1.0 - 4.3 10*3/uL [facility] Lymphocytes/100 WBC (Bld) 23.0 % 15.0 - 45.0 % [facility] MCH (RBC) [Entitic mass] 31.7 pg 26.0 - 34.0 pg [facility] MCHC (RBC) [Mass/Vol] 33.3 % 30.5 - 36.0 % [facility] MCV (RBC) [Entitic vol] 95.2 fL 77.0 - 99.0 fL [facility] Monocytes (Bld) [#/Vol] 1.0 10*3/uL High 0.0 - 0.9 10*3/uL [facility] Monocytes/100 WBC (Bld) 14.2 % High 5.0 - 13.0 % [facility] Neutrophils (Bld) [#/Vol] 4.0 10*3/uL 1.8 - 7.5 10*3/uL [facility] Neutrophils/100 WBC (Bld) 58.8 % 38.0 - 82.0 % [facility] Nucleated RBC/100 WBC (Bld) [Ratio] 0.0 % [facility] Platelet mean volume (Bld) [Entitic vol] 13.0 fL High 9.0 - 12.7 fL [facility] Platelets (Bld) [#/Vol] 194 10*3/uL 140 - 440 10*3/uL [facility] RBC (Bld) [#/Vol] 5.05 10*6/uL 3.80 - 5.2 0 10*6/uL [facility] WBC (Bld) [#/Vol] 6.9 10*3/uL 3.6 - 10.7 10*3/uL [facility] CBC WITH AUTO DIFFERENTIALon 12-12-2023 Basophils (Bld) [#/Vol] 0.1 10*3/uL Normal 0.0-0.2 [facility] Comment on above: Performed By: #### L [id number] ####Nephrologist: AIDE RUEDA ([id number])[facility])[address] [place] [address] Basophils/100 WBC (Bld) 1.3 % Normal 0.0-2.0 S [facility] Comment on above: Performed By: #### L [id number] ####Nephrologist: AIDE RUEDA ([phone])[facility])[address] [place] [address] Eosinophils (Bld) [#/Vol] 0.1 10*3/uL Normal 0.0-0.5 [facility] Comment on above: Performed By: #### L [id number] ####Nephrologist: AIDE RUEDA ([phone])[facility])[address] [place] [address] Eosinophils/100 WBC (Bld) 2.0 % Normal 0.0-6.0 [facility] Comment on above: Performed By: #### L [id number] ####Nephrologist: AIDE RUEDA ([phone])[facility])[address] [place] [address] Erythrocyte distribution width (RBC) [Ratio] 13.1 % Normal 11.5-15.0 [facility] Comment on above: Performed By: #### L [id number] ####Nephrologist: AIDE RUEDA ([id number])[facility])[address] [place] [address] Hematocrit (Bld) [Volume fraction] 48.1 % High 35.0-47.0 [facility] Comment on above: Performed By: #### L [id number] ####Nephrologist: AIDE RUEDA ([id number])[facility])[address] [place] [address] Hemoglobin (Bld) [Mass/Vol] 16.0 g/dL Normal 11.7-16.0 [facility] Comment on above: Performed By: #### L [id number] ####Nephrologist: AIDE RUEDA ([id number])[address] IMMATURE GRANS % 0.7 % Normal 0.0-2.0 [facility] Comment on above: Performed By: #### L [id number] ####Nephrologist: AIDE RUEDA ([phone])[address] IMMATURE GRANS ABSOLUTE 0.1 10*3/uL High <0.1 [facility] Comment on above: Performed By: #### L [id number] ####Nephrologist: AIDE RUEDA ([phone])[facility])[address] [place] [address] Lymphocytes (Bld) [#/Vol] 1.6 10*3/uL Normal 1.0-4.3 [facility] Comment on above: Performed By: #### L [id number] ####Nephrologist: AIDE RUEDA ([id number])[address] Lymphocytes/100 WBC (Bld) 23.0 % Normal 15.0-45.0 [facility] Comment on above: Performed By: #### L [id number] ####Nephrologist: AIDE RUEDA ([id number])[facility])[address] [place] [address] MCH (RBC) [Entitic mass] 31.7 pg Normal 26.0-34.0 [facility] Comment on above: Performed By: #### L [id number] ####Nephrologist: AIDE RUEDA ([id number])[facility])[address] [place] [address] MCHC 33.3 % Normal 30.5-36.0 [facility] Comment on above: Performed By: #### L [id number] ####Nephrologist: AIDE RUEDA ([phone])[facility])[address] [place] [address] MCV (RBC) [Entitic vol] 95.2 fL Normal 77.0-99.0 S [facility] Comment on above: Performed By: #### L [id number] ####Nephrologist: AIDE RUEDA ([id number])[facility] ([facility])[address] [place] [address] Monocytes (Bld) [#/Vol] 1.0 10*3/uL High 0.0-0.9 [facility] Comment on above: Performed By: #### L [id number] ####Nephrologist: AIDE RUEDA ([id number])[facility])[address] [place] [address] Monocytes/100 WBC (Bld) 14.2 % High 5.0-13.0 S [facility] Comment on above: Performed By: #### L [id number] ####Nephrologist: AIDE RUEDA ([id number])[facility])[address] [place] [address] NEUTROPHILS ABSOLUTE 4.0 10*3/uL Normal 1.8-7.5 [facility] Comment on above: Performed By: #### L [id number] ####Nephrologist: AIDE RUEDA ([id number])[facility])[address] [place] [address] Neutrophils/100 WBC (Bld) 58.8 % Normal 38.0-82.0 [facility] Comment on above: Performed By: #### L [id number] ####Nephrologist: AIDE RUEDA ([id number])[facility] ([facility])[address] [place] [address] NRBC 0.0 /100 WBCs Normal 0.0-2.0 [facility] Comment on above: Performed By: #### L [id number] ####Nephrologist: AIDE RUEDA ([id number])[facility])[address] [place] [address] Platelet mean volume (Bld) [Entitic vol] 13.0 fL High 9.0-12.7 [facility] Comment on above: Performed By: #### L [id number] ####Nephrologist: AIDE RUEDA ([id number])[facility] ([facility])[address] [place] [address] Platelets (Bld) [#/Vol] 194 10*3/uL Normal 140-440 [facility] Comment on above: Performed By: #### L [id number] ####Nephrologist: AIDE RUEDA ([id number])[facility] ([facility])[address] [place] [address] RBC (Bld) [#/Vol] 5.05 10*6/uL Normal 3.80-5.20 [facility] Comment on above: Performed By: #### L [id number] ####Nephrologist: AIDE RUEDA ([id number])[facility] ([facility])[address] [place] [address] WBC (Bld) [#/Vol] 6.9 10*3/uL Normal 3.6-10.7 [facility] Comment on above: Performed By: #### L [id number] ####Nephrologist: AIDE RUEDA ([id number])[facility] ([facility])[address] [place] [address] COMPREHENSIVE METABOLIC PANE [place] 12-12-2023 Albumin [Mass/Vol] 4.1 g/dL Normal 3.5-5.0 [facility] Comment on above: Performed By: #### L [id number], LAB17 ####Nephrologist: AIDE RUEDA ([id number])[facility] ([facility])[address] [place] [address] ALP [Catalytic activity/Vol] 70 U/L Normal 38-126 [facility] Comment on above: Performed By: #### L [id number], LAB17 ####Nephrologist: AIDE RUEDA ([id number])[facility] ([facility])[address] [place] [address] ALT [Catalytic activity/Vol] 18 U/L Normal 0-34 [facility] Comment on above: Performed By: #### L [id number], LAB17 ####Nephrologist: AIDE RUEDA ([id number])[facility] ([facility])[address] [place] [address] Anion gap [Moles/Vol] 11 mmol/L Normal 3-13 [facility] Comment on above: Performed By: #### L [id number], LAB17 ####Nephrologist: AIDE RUEDA ([id number])[facility] ([facility])[address] [place] [address] AST [Catalytic activity/Vol] 52 U/L High 15-46 [facility] Comment on above: Performed By: #### L [id number], LAB17 ####Nephrologist: AIDE RUEDA ([id number])[facility] ([facility])[address] [place] [address] Bilirubin [Mass/Vol] 1.0 mg/dL Normal 0.2-1.3 [facility] Comment on above: Performed By: #### L AB106, LAB17 ####Nephrologist: AIDE RUEDA ([id number])[facility])[address] [place] [address] Calcium [Mass/Vol] 9.3 mg/dL Normal 8.4-10.4 [facility] Comment on above: Performed By: #### L AB106, LAB17 ####Nephrologist: AIDE RUEDA ([id number])[facility] ([facility])[address] [place] [address] [place] Chloride [Moles/Vol] 103 mmol/L Normal 98-107 [facility] Comment on above: Performed By: #### L AB106, LAB17 ####Nephrologist: AIDE RUEDA ([id number])[facility])[address] [place] [address] [place] CO2 [Moles/Vol] 22 mmol/L Normal 22-30 [facility] Comment on above: Performed By: #### L AB106, LAB17 ####Nephrologist: AIDE RUEDA ([id number])[facility])[address] [place] [address] Creatinine [Mass/Vol] 1.95 mg/dL High 0.52-1.04 [facility] Comment on above: Performed By: #### L AB106, LAB17 ####Nephrologist: AIDE RUEDA ([id number])[facility] ([facility])[address] [place] [address] GLOMERULAR FILTRATION RATE ML/MIN/1.73 SQ M.PREDICTED 25.1 mL/min/1.73m*2 Low >60.0 [facility] Comment on above: Result Comment: Calc ulation based on the Chronic Kidney Disease Epidemiology Collaboration (CKD-EPI) equation refit without adjustment for race ORDER COMMENTS: Slightly Hemolyzed. Interpret Potassium, Alkaline Phosphatase, and AST with caution. Performed By: #### L AB106, LAB17 ####Nephrologist: AIDE RUEDA ([id number])[facility] ([facility])[address] [place] [address] [place] Glucose [Mass/Vol] 107 mg/dL High 70-100 [facility] Comment on above: Performed By: #### L AB106, LAB17 ####Nephrologist: AIDE RUEDA ([id number])[facility] ([facility])[address] [place] [address] [place] Potassium [Moles/Vol] 4.3 mmol/L Normal 3.5-5.1 [facility] Comment on above: Performed By: #### L AB106, LAB17 ####Nephrologist: AIDE RUEDA ([id number])[facility] ([facility])[address] [place] [address] Protein [Mass/Vol] 7.9 g/dL Normal 6.3-8.2 [facility] Comment on above: Performed By: #### L AB106, LAB17 ####Nephrologist: AIDE RUEDA ([id number])[facility] ([facility])[address] [place] [address] Sodium [Moles/Vol] 136 mmol/L Normal 135-145 [facility] Comment on above: Performed By: #### L AB106, LAB17 ####Nephrologist: AIDE RUEDA ([id number])[facility] ([facility])[address] [place] [address] Urea nitrogen [Mass/Vol] 36 mg/dL High 7-17 [facility] Comment on above: Performed By: #### L AB106, LAB17 ####Nephrologist: AIDE RUEDA ([id number])[facility] ([facility])[address] [place] [address] Comprehensive metabolic 1998 panelon 12-12-2023 Albumin [Mass/Vol] 4.1 g/dL 3.5 - 5.0 g/dL [facility] ALP [Catalytic activity/Vol] 70 U/L 38 - 126 U/L [facility] ALT [Catalytic activity/Vol] 18 U/L 0 - 34 U/L [facility] Anion gap [Moles/Vol] 11 mmol/L 3 - 13 mmol/L [facility] AST [Catalytic activity/Vol] 52 U/L High 15 - 46 U/L [facility] Bilirubin [Mass/Vol] 1.0 mg/dL 0.2 - 1 .3 mg/dL [facility] Calcium [Mass/Vol] 9.3 mg/dL 8.4 - 10. 4 mg/dL [facility] Chloride [Moles/Vol] 103 mmol/L 98 - 10 7 mmol/L [facility] CO2 [Moles/Vol] 22 mmol/L 22 - 30 mmol/L [facility] Creatinine [Mass/Vol] 1.95 mg/dL High 0.52 - 1.04 mg/dL [facility] GFR/1.73 sq M.predicted (S/P/Bld) [Vol rate/Area] 25.1 mL/min Low - PINF [facility] Comment on above: Calculation based on the Chronic Kidney Disease Epidemiology Collaboration (CKD-EPI) equation refit without adjustment for race Glucose [Mass/Vol] 107 mg/dL High 70 - 100 mg/dL [facility] Interpretation and review of laboratory results Abnormal [facility] Potassium [Moles/Vol] 4.3 mmol/L 3.5 - 5.1 mmol/L [facility] [employer] Protein [Mass/Vol] 7.9 g/dL 6.3 - 8.2 g/dL [facility] Sodium [Moles/Vol] 136 mmol/L 135 - 145 mmol/L [facility] Urea nitrogen [Mass/Vol] 36 mg/dL High 7 - 17 mg/dL [facility] Slightly Hemolyzed. Interpret Potassium, Alkaline Phosphatase, and AST with caution. [facility] NT PRO BNPon 12-12-2023 Natriuretic peptide B (Bld) [Mass/Vol] 2261 pg/mL High <450 [facility] Comment on above: Performed By: #### L AB106, LAB17 ####Nephrologist: AIDE RUEDA ([id number])[address] Natriuretic peptide B [Mass/ Vol]Ordered By: Bob Flores on 12-12-2023 Interpretation and review of laboratory results Abnormal [facility] Natriuretic peptide B (Bld) [Mass/Vol] 2261 pg/mL High NINF - 450 pg/mL [facility] Office Visiton 12-12-2023 Follow-up visit [id number] Brianne Call 1940 F Date Provider Department Center 12/12/2023 [id number]-NJBWPAMÓNICA HOPKINS [facility] [address] No family history on file Level of Service:86524 MA OFFICE/OUTPATIENT ESTABLISHED MOD MDM 30 MIN Reason for Visit and Comments: Cardiac Valve Problem [1334] - Patient seen in private OP procedure area for H + P update and education prior to scheduled TAVR Normal [facility] Progress Noteon 12-12-2023 Progress Note Pts symptoms of the reaction have all gone away. Pt states she feels back to normal. Normal [facility] Progress Note [facility] [address] [place] [address] Dept: [phone] Dept Visit type: Established : 1940 Reason [...] mm Hg. She underwent cardiac cath at [place] which showed non obstructive CAD. He kidney [...] 100 mg 100 mg IntraVENous Once Mónica Hopkins, FUSE MAKER - GUEST SERVICE SUPERVISOR sodium chloride 0.9 % bolus 500 mL [...] D deficiency Social (more content not included)... [address] 12-08-2023 Approved [id number] 12/24-12/26/23 Calendars and Snapboard updated. [place] [address] Messaged central scheduling through secure chat and CTA TAVR scheduled at [facility] at [address] 12-07-2023 Jay Currie RT is out of office until Mon12/11/23. I spoke w/ [facility] Radiology Dept, I was sent to a "supervisor waterproofing" , I left message re: add on CTA @ [facility] for 12/11. [place] [address] I spoke w/ Katherin in CS, re: [facility] IV hydration, having difficulty with adding pt, she will speak w/ coworker and call me back. I spoke w/ Jennifer RN in POP, they have pt on their schedule. I spoke w/ patient, reviewed NPO 4 hrs prior, all questions answered. I also spoke w/ Rossana in CS, CTA needs moved to [facility]. [address] 12-06-2023 36 Hydration orders faxed,confirmed and scanned under Media Submitted auth request on [facility] Central. Pending # [id number] On all 3 s. [place] [address] I spoke w/ pt and dtr Shama [...] [place] notified to schedule/PA/snap board/calendars. Normal [facility] 36 Patient returned my call. No issues with Right radial cath site, cath performed by Dr. Garces in [place], I called to have images pushed to PACS and fax report w/ recent labs. Labs reviewed from [place], drawn 11/28/23 GFR 31 prior to cath. Teofilo Velez CNP notified to review and advise if IV hydration is needed. [facility] 36 I spoke w/ Medina in Dr. Garces's office, confirmed LHC completed, she will push images to PACS and fax report & lab results. I left vm message for dtr Shama to review pt status, discuss next steps BMP/CTA. [facility] 36on 12-05-2023 36 Chart note done. I faxed it and the EKG tracings to [phone]/[facility] 36 Dr. Huffman verbally notified. [facility] 36 Medina from [place] [facility] called requesting last OV note but PB has not finished yet. (11/22/23) [phone] They need the most recent EKG wave forms as well. [facility] Cardiac Cath [employer] Cardiac Cath Diagnostic Normal [facility] 36on 11-28-2023 36 Spoke w/ Juana @ [facility], cath scheduled for 12/04/23 w/ Dr. Garces. [facility] Basic Metabolic Profile (BMP )on 11-28-2023 BUN/CRE 21.1 RATIO High 10-20 [facility] Comment on above: Order Comment: for h eart cath Performed By: #### L 500.2500, L300.4310, L100.0100, L300.3900 ####[facility] [address] [place], [place], [id number] CA,Total 9.5 mg/dL Normal 8.5-10.1 [facility] Comment on above: Order Comment: for h eart cath Performed By: #### L 500.2500, L300.4310, L100.0100, L300.3900 ####[facility] [address] [place], [address] Chloride [Moles/Vol] 103 mmol/L Normal 98-107 [facility] Comment on above: Order Comment: for h eart cath Performed By: #### L 500.2500, L300.4310, L100.0100, L300.3900 ####[facility] [address] [place], [address] CO2 [Moles/Vol] 27.0 mmol/L Normal 21.0-32.0 [facility] Comment on above: Order Comment: for h eart cath Performed By: #### L 500.2500, L300.4310, L100.0100, L300.3900 ####[facility] [address] [place], [address] Creatinine [Mass/Vol] 1.66 mg/dL High 0.55-1.02 [facility] Comment on above: Order Comment: for h eart cath Result Comment: The validity of the calculated GFR GFRAA in patients over70 years has not been determined. Clinical correlation isessential. Performed By: #### L 500.2500, L300.4310, L100.0100, L300.3900 ####[facility] [address] [place], [address] EST GFR - AA 38 mL/min Low >60 [facility] Comment on above: Order Comment: for h eart cath Result Comment: Afri can Vietnamese GFR Calc Performed By: #### L 500.2500, L300.4310, L100.0100, L300.3900 ####[facility] [address] [place], [address] GAP 7 Normal 5-15 [facility] Comment on above: Order Comment: for h eart cath Performed By: #### L 500.2500, L300.4310, L100.0100, L300.3900 ####[facility] [address] [place], [address] GFR/1.73 sq M.predicted among non-blacks MDRD (S/P/Bld) [Vol rate/Area] 31 mL/min/{1.73_m2} Low >60 [facility] Comment on above: Order Comment: for h eart cath Result Comment: Non- GFR Calc Performed By: #### L 500.2500, L300.4310, L100.0100, L300.3900 ####[facility] [address] [place], [address] Glucose [Mass/Vol] 128 mg/dL High 74-106 [facility] Comment on above: Order Comment: for h eart cath Result Comment: Fast ing Glucose result greater than or equal to 126 mg/dLsuggests DIABETES MELLITUS per A.D.A. criteria. Performed By: #### L 500.2500, L300.4310, L100.0100, L300.3900 ####[facility] [address] [place], [address] Potassium [Moles/Vol] 3.8 mmol/L Normal 3.5-5.1 [facility] Comment on above: Order Comment: for h eart cath Performed By: #### L 500.2500, L300.4310, L100.0100, L300.3900 ####[facility] [address] [place], [address] Sodium [Moles/Vol] 137 mmol/L Normal 136-145 [facility] Comment on above: Order Comment: for h eart cath Performed By: #### L 500.2500, L300.4310, L100.0100, L300.3900 ####[facility] [address] [place], [address] Urea nitrogen [Mass/Vol] 35 mg/dL High 7-18 [facility] Comment on above: Order Comment: for h eart cath Performed By: #### L 500.2500, L300.4310, L100.0100, L300.3900 ####[facility] [address] [place], [address] CBC W/Diff, Automatedon 11-18 0-2023 Absolute Lymph 1.45 X10 3/uL Normal 0.83-4.51 [facility] Comment on above: Order Comment: Comme nts: For heart cath Performed By: #### L 500.2500, L300.4310, L100.0100, L300.3900 ####[facility] [address] [place], [address] Absolute Neut 3.9 X10 3/uL Normal 2.0-7.7 [facility] Comment on above: Order Comment: Comme nts: For heart cath Performed By: #### L 500.2500, L300.4310, L100.0100, L300.3900 ####[facility] [address] [place], [address] Basophils/100 WBC (Bld) 1.1 % High 0-1 [facility] Comment on above: Order Comment: Comme nts: For heart cath Performed By: #### L 500.2500, L300.4310, L100.0100, L300.3900 ####[facility] [address] [place], [address] Eosinophils/100 WBC (Bld) 1.4 % Normal 0-5 [facility] Comment on above: Order Comment: Comme nts: For heart cath Performed By: #### L 500.2500, L300.4310, L100.0100, L300.3900 ####[facility] [address] [place], [address] Erythrocyte distribution width (RBC) [Ratio] 12.6 % Normal 11.6-14.6 [facility] Comment on above: Order Comment: Comme nts: For heart cath Performed By: #### L 500.2500, L300.4310, L100.0100, L300.3900 ####[facility] [address] [place], [address] Hematocrit (Bld) [Volume fraction] 50.3 % High 37-47 [facility] Comment on above: Order Comment: Comme nts: For heart cath Performed By: #### L 500.2500, L300.4310, L100.0100, L300.3900 ####[facility] [address] [place], [address] Hemoglobin (Bld) [Mass/Vol] 16.2 g/dL High 12.0-15.0 [facility] Comment on above: Order Comment: Comme nts: For heart cath Performed By: #### L 500.2500, L300.4310, L100.0100, L300.3900 ####[facility] [address] [place], [address] IG% 0.300 Normal 0.0-0.9 [facility] Comment on above: Order Comment: Comme nts: For heart cath Result Comment: IG% - Immature Granulocytes (promyelocytes, myelocytes andmetamyelocytes) > 1% indicates that a LEFT SHIFT is Present. Performed By: #### L 500.2500, L300.4310, L100.0100, L300.3900 ####[facility] [address] [place], [address] Lymphocytes/100 WBC (Bld) 22.9 % Normal 19-41 [facility] Comment on above: Order Comment: Comme nts: For heart cath Performed By: #### L 500.2500, L300.4310, L100.0100, L300.3900 ####[facility] [address] [place], [address] MCH (RBC) [Entitic mass] 31.3 pg Normal 27.0-32.0 [facility] Comment on above: Order Comment: Comme nts: For heart cath Performed By: #### L 500.2500, L300.4310, L100.0100, L300.3900 ####[facility] [address] [place], [address] MCHC (RBC) [Mass/Vol] 32.2 g/dL Normal 32-36 [facility] Comment on above: Order Comment: Comme nts: For heart cath Performed By: #### L 500.2500, L300.4310, L100.0100, L300.3900 ####[facility] [address] [place], [address] MCV (RBC) [Entitic vol] 97.3 fL Normal 81-99 [facility] Comment on above: Order Comment: Comme nts: For heart cath Performed By: #### L 500.2500, L300.4310, L100.0100, L300.3900 ####[facility] [address] [place], [address] Monocytes/100 WBC (Bld) 12.2 % High 0-10 [facility] Comment on above: Order Comment: Comme nts: For heart cath Performed By: #### L 500.2500, L300.4310, L100.0100, L300.3900 ####[facility] [address] [place], [address] Neutrophils/100 WBC (Bld) 62.1 % Normal 47-70 [facility] Comment on above: Order Comment: Comme nts: For heart cath Performed By: #### L 500.2500, L300.4310, L100.0100, L300.3900 ####[facility] [address] [place], [address] Nucleated RBC (Bld) [#/Vol] 0 10*3/uL Normal 0-5 [facility] Comment on above: Order Comment: Comme nts: For heart cath Performed By: #### L 500.2500, L300.4310, L100.0100, L300.3900 ####[facility] [address] [place], [address] Platelet mean volume (Bld) [Entitic vol] 12.7 fL High 6.2-12.0 [facility] Comment on above: Order Comment: Comme nts: For heart cath Performed By: #### L 500.2500, L300.4310, L100.0100, L300.3900 ####[facility] [address] [place], [address] Platelets (Bld) [#/Vol] 191 10*3/uL Normal 150-450 [facility] Comment on above: Order Comment: Comme nts: For heart cath Performed By: #### L 500.2500, L300.4310, L100.0100, L300.3900 ####[facility] [address] [place], [address] RBC (Bld) [#/Vol] 5.17 10*6/uL Normal 4.2-5.4 [facility] Comment on above: Order Comment: Comme nts: For heart cath Performed By: #### L 500.2500, L300.4310, L100.0100, L300.3900 ####[facility] [address] [place], [address] RDW SD 45.3 fl High 35.1-43.9 [facility] Comment on above: Order Comment: Comme nts: For heart cath Performed By: #### L 500.2500, L300.4310, L100.0100, L300.3900 ####[facility] [address] [place], [address] WBC (Bld) [#/Vol] 6.3 10*3/uL Normal 4.4-11.0 [facility] Comment on above: Order Comment: Comme nts: For heart cath Performed By: #### L 500.2500, L300.4310, L100.0100, L300.3900 ####[facility] [address] [place], [address] Partial Thromboplast Timeon 11-28-2023 aPTT Coag (Bld) [Time] 28.7 s Normal 24.1-36.2 [facility] Comment on above: Order Comment: Comme nts: for heart cath Performed By: #### L 500.2500, L300.4310, L100.0100, L300.3900 ####[facility] [address] [place], [address] Prothrombin Time w/INRon INR Coag (PPP) [Relative time] 1.6 {INR} Normal [facility] Comment on above: Order Comment: Comme nts: for heart cath Performed By: #### L 500.2500, L300.4310, L100.0100, L300.3900 ####[facility] [address] [place], [address] PT Coag (PPP) [Time] 18.7 s High 11.7-14.9 [facility] Comment on above: Order Comment: Comme nts: for heart cath Performed By: #### L 500.2500, L300.4310, L100.0100, L300.3900 ####[facility] [address] [place], [address] ECG 12 lead - CLINIC PERFORM EDon 11-25-2023 Atrial fibrillation -Old anteroseptal infarct. -Diffuse nonspecific T-abnormality. ABNORMAL [facility] 36on 11-22-2023 36 Patient seen in Heart valve Clinic yesterday. Dr. Huffman spoke w/ Dr. Garces @ [place] [facility], agreed for R/LHC to be done in [place]. I spoke w/ Maggie RN in Dr. Garces' office, asked her to call me back with cath date. Need to expedite TAVR due to pt symptoms, will need to coordinate CTA, pt does have CKD, last creat was 1.38 done 08/10 scanned in media. Normal [facility] Office Visiton 11-21-2023 Follow-up visit [id number] Brianne Call 1940 F Date Provider Department Center 11/21/2023 [id number]-ECUTLTHADDEUS MCKEON [facility] Ar No family history on file Level of Service:12337 MA OFFICE/OUTPATIENT NEW MODERATE MDM 45 MINUTES Reason for Visit and Comments: Shortness of Breath [734372] Normal [facility] Follow-up visit [id number] Brianne Call 1940 F Date Provider Department Center 11/21/2023 64061-ILEEGCJUAN REED [facility] 95 Ar No family history on file Level of Service:94873 MA OFFICE/OUTPATIENT NEW HIGH MDM 60 MINUTES Reason for Visit and Comments: Cardiac Valve Problem [1334] Normal [facility] Follow-up visit [id number] Brianne Call 1940 F Date Provider Department Center 11/21/2023 24642-RWMRIWUCRAKKHARJEET HUFFMAN [facility] [address] Ar No family history on file Level of Service:75440 MA OFFICE/OUTPATIENT NEW HIGH MDM 60 MINUTES Reason for Visit and Comments: Cardiac Valve Problem [1334] Normal [facility] PATINSon 11-21-2023 PATI GERIATRICS DISCHARGE INSTRUCTIONS: Follow-up with [facility] (phone: [phone] fax: [phone]) as needed for memory testing. Please BEGIN [...] age and increased risk of falls. Normal [facility] Progress Noteon 11-21-2023 Progress Note [facility] [address] [facility] [address] Dept: [phone] Dept Loc: [phone] Today's Visit Location: TAVR (transcather aortic valve replacement) Clinic [facility] Cardiology [address] [place] [id number] Visit type: Senior Health Assessment at TAVR (transcather aortic valve replacement) Clinic Visit Date: 11/21/2023 Reason for Visit: Shortness of Breath Assessment and Plan 1. Nonrheumatic aortic valve stenosis Assessment & Plan: S/p AV replacement by Dr. Nagy in 201209/22/23 Transthoracic Echo (TTE) noted severe aortic stenosis". Mean Gradient of 49. Dr. Garces in [place]. No aortic valve area mentioned. I agree with cardiology plan as discussed with consultant teacher Dr. Huffman and CTS Dr. Reed on [...] Patient has already named her Power of Home Planning Consultant Salesperson for Healthcare and Finances (Both are her daughter Shama López) I recommended patient follow-up with [facility] (phone: [phone] fax: [phone]) as needed for memory testing. 4. Drug-induced [...] no=0 points)0 - [facility]. Rajiv (son) lives w pt Reduce [...] pandemic. Revi (more content not included)... Normal [facility] SHS Progress Note HR 58 bpm today but no syncope, presyncope, falls Patient asymptomatic today Patient taking lopressor 12.5mg po bid - I encouraged patient to discuss with her cardiologists/PCP (primary care provider) regarding change of meds given her advanced age and increased risk of falls Normal [facility] SHS Progress Note [facility]: Cardiothoracic Surgery Multidisciplinary Heart Valve Clinic Date: 11/21/23 Patient:Brianne Wells Marin 1940 83 y.o. female [id number] Subjective: HPI: Brianne Russell Call [address] Garces [...] reactive b (more content not included)... Normal [facility] Progress Note Chronic Patient with occasional word-finding difficulties I suspect either normal memory loss for aging or possibly MCI (Mild Cognitive Impairment) Patient has already named her Power of Home Planning Consultant Salesperson for Healthcare and Finances (Both are her daughter Shama López) I recommended patient follow-up with [facility] (phone: [phone] fax: [phone]) as needed for memory testing. Normal [facility] Progress Note Chronic; Stable Asymptomatic May be nearing renal (kidney) dysfunction requiring reduced dose of eliquis (given Cr nearly 1.5 in past and patient's age >80 yo). May need eliquis 2.5mg po bid instead of 5mg po bid in future pending renal (kidney) function Normal [facility] Progress Note meds reviewed; appropriate May be [...] missing or doubling up on meds Normal [facility] Progress Note S/p AV replacement by Dr. Nagy in 201209/22/23 Transthoracic Echo (TTE) noted severe aortic stenosis". Mean Gradient of 49. Dr. Garces in [place]. No aortic valve area mentioned. I agree with cardiology plan as discussed with consultant teacher Dr. Huffman and CTS Dr. Reed on same date regarding next steps for further workup/treatment of cardiac disease which likely includes heart cath +/- TAVR. On this date of evaluation, the patient has sufficient understanding of procedure(s) to consent to the procedure(s) being discussed and has adequate social support(s). Normal [facility] Progress Note [facility] [address] [facility] [address] Dept: [phone] Dept Visit type: New : 1940 Reason for Visit: Cardiac Valve Problem Assessment and Plan 1. LV dysfunction 2. Stenosis of prosthetic aortic valve, initial encounter - ECG 12 lead - CLINIC PERFORMED This is a very pleasant 83 y.o. 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 she is clearly in need of aortic valve replacement, likely tizin-de-eifzu TAVR. Will need a diagnostic cath first, [...] Effort: Pulmonary (more content not included)... Normal [facility] Progress Noteon 11-17-2023 Progress Note Brianne Wells [...] thinner - Eliquis Transthoracic Echocardiogram 09/22/2023 Normal [facility] BNP,B-Type NATRIURETIC PEPTI Delroy 11-09-2023 Natriuretic peptide B (Bld) [Mass/Vol] 330.1 pg/mL High 0-100 [facility] Comment on above: Performed By: #### L 500.4100, L503.6620, L500.4050 ####[facility] [address] [place], [address] Comprehensive Metabolic Prof ilon 11-09-2023 Albumin [Mass/Vol] 3.5 g/dL Normal 3.2-5.0 [facility] Comment on above: Performed By: #### L 500.4100, L503.6620, L500.4050 ####[facility] [address] [place], [address] Albumin/Globulin [Mass ratio] 0.9 {ratio} Normal 0.9-2.4 [facility] Comment on above: Performed By: #### L 500.4100, L503.6620, L500.4050 ####[facility] [address] [place], [address] ALK P 68 U/L Normal 45-117 [facility] Comment on above: Performed By: #### L 500.4100, L503.6620, L500.4050 ####[facility] [address] [place], [address] ALT [Catalytic activity/Vol] 18 U/L Normal 13-56 [facility] Comment on above: Performed By: #### L 500.4100, L503.6620, L500.4050 ####[facility] [address] [place], [address] AST [Catalytic activity/Vol] 25 U/L Normal 15-37 [facility] Comment on above: Result Comment: Slig ht Hemolysis, Result may be falsely increased. Performed By: #### L 500.4100, L503.6620, L500.4050 ####[facility] [address] [place], [address] Bilirubin [Mass/Vol] 1.10 mg/dL High 0.20-1.00 [facility] Comment on above: Result Comment: For patients on eltrombopag therapy, use of Dimension [place] TBIL is not recommended. Performed By: #### L 500.4100, L503.6620, L500.4050 ####[facility] [address] [place], [address] BUN/CRE 17.6 RATIO Normal 10-20 [facility] Comment on above: Performed By: #### L 500.4100, L503.6620, L500.4050 ####[facility] [address] [place], [address] CA,Total 8.8 mg/dL Normal 8.5-10.1 [facility] Comment on above: Performed By: #### L 500.4100, L503.6620, L500.4050 ####[facility] [address] [place], [address] Chloride [Moles/Vol] 104 mmol/L Normal 98-107 [facility] Comment on above: Performed By: #### L 500.4100, L503.6620, L500.4050 ####[facility] [address] [place], [address] CO2 [Moles/Vol] 24.0 mmol/L Normal 21.0-32.0 [facility] Comment on above: Performed By: #### L 500.4100, L503.6620, L500.4050 ####[facility] [address] [place], [address] Creatinine [Mass/Vol] 1.48 mg/dL High 0.55-1.02 [facility] Comment on above: Result Comment: The validity of the calculated GFR GFRAA in patients over70 years has not been determined. Clinical correlation isessential. Performed By: #### L 500.4100, L503.6620, L500.4050 ####[facility] [address] [place], [address] EST GFR - AA 43 mL/min Low >60 [facility] Comment on above: Result Comment: Afri can Vietnamese GFR Calc Performed By: #### L 500.4100, L503.6620, L500.4050 ####[facility] [address] [place], [address] GAP 10 Normal 5-15 [facility] Comment on above: Performed By: #### L 500.4100, L503.6620, L500.4050 ####[facility] [address] [place], [address] GFR/1.73 sq M.predicted among non-blacks MDRD (S/P/Bld) [Vol rate/Area] 36 mL/min/{1.73_m2} Low >60 [facility] Comment on above: Result Comment: Non- GFR Calc Performed By: #### L 500.4100, L503.6620, L500.4050 ####[facility] [address] [place], [address] Globulin (S) [Mass/Vol] 3.9 g/dL Normal 2.2-4.2 [facility] Comment on above: Performed By: #### L 500.4100, L503.6620, L500.4050 ####[facility] [address] [place], [address] Glucose [Mass/Vol] 111 mg/dL High 74-106 [facility] Comment on above: Result Comment: Fast ing Glucose result from 100 to 125 mg/dLsuggests IMPAIRED HOMEOSTASIS per A.D.A. criteria. Performed By: #### L 500.4100, L503.6620, L500.4050 ####[facility] [address] [place], [address] Potassium [Moles/Vol] 4.3 mmol/L Normal 3.5-5.1 [facility] Comment on above: Result Comment: Slig ht Hemolysis, Result may be falsely increased. Performed By: #### L 500.4100, L503.6620, L500.4050 ####[facility] [address] [place], [address] Sodium [Moles/Vol] 138 mmol/L Normal 136-145 [facility] Comment on above: Performed By: #### L 500.4100, L503.6620, L500.4050 ####[facility] [address] [place], [address] T PROT 7.4 g/dL Normal 6.4-8.2 [facility] Comment on above: Performed By: #### L 500.4100, L503.6620, L500.4050 ####[facility] [address] [place], [address] Urea nitrogen [Mass/Vol] 26 mg/dL High 7-18 [facility] Comment on above: Performed By: #### L 500.4100, L503.6620, L500.4050 ####[facility] [address] [place], [address] Lipid Profileon 11-09-2023 Cholesterol [Mass/Vol] 175 mg/dL Normal 200 [facility] Comment on above: Result Comment: <200 mg/dL Desirable 200-240 mg/dL Borderline >240 mg/dL High Risk Performed By: #### L 500.4100, L503.6620, L500.4050 ####[facility] [address] [place], [address] Cholesterol in HDL [Mass/Vol] 35 mg/dL Low [facility] Comment on above: Result Comment: The drugs N-Acetylcysteine and Metamizole may falselydepress this assay. Reference Range HDL <40 mg/dL Low HDL Cholesterol HDL >or= 60 mg/dL High HDL Cholesterol Performed By: #### L 500.4100, L503.6620, L500.4050 ####[facility] [address] [place], [address] Cholesterol in LDL [Mass/Vol] 92 mg/dL Normal 0-130 [facility] Comment on above: Performed By: #### L 500.4100, L503.6620, L500.4050 ####[facility] [address] [place], [address] Cholesterol in VLDL [Mass/Vol] 48 mg/dL High 5-40 [facility] Comment on above: Performed By: #### L 500.4100, L503.6620, L500.4050 ####[facility] [address] [place], [address] Triglyceride [Mass/Vol] 242 mg/dL High [facility] Comment on above: Result Comment: The drugs N-Acetylcysteine and Metamizole may falselydepress this assay.Serum Triglycerides Reference Interval Normal <150 mg/dL Borderline high 150 - 199 mg/dL High 200 - 499 mg/dL Very High > or = 500 mg/dL Performed By: #### L 500.4100, L503.6620, L500.4050 ####[facility] [address] [place], [address] 12 Lead EKG performed by BMS on 11-08-2023 12 Lead EKG performed by BMS Normal [facility] BNP,B-Type NATRIURETIC PEPTI Delroy 11-08-2023 Natriuretic peptide B (Bld) [Mass/Vol] 346.5 pg/mL High 0-100 [facility] Comment on above: Performed By: #### L 503.6620, L500.4050, L500.4100 ####[facility] [address] [place], [address] Cardiology Visit Reporton Cardiology Visit Report Normal [facility] Chest PA and Lateralon 11-07 Chest PA and Lateral Normal [facility] Comprehensive Metabolic Prof ilon 11-08-2023 ALB Normal 3.2-5.0 [facility] Comment on above: Result Comment: no t ube in lab Performed By: #### L 503.6620, L500.4050, L500.4100 ####[facility] [address] [place], [address] ALK P Normal 45-117 [facility] Comment on above: Result Comment: no t ube in lab Performed By: #### L 503.6620, L500.4050, L500.4100 ####[facility] [address] [place], [address] ALT Normal 13-56 [facility] Comment on above: Result Comment: no t ube in lab Performed By: #### L 503.6620, L500.4050, L500.4100 ####[facility] [address] [place], [address] AST Normal 15-37 [facility] Comment on above: Result Comment: no t ube in lab Performed By: #### L 503.6620, L500.4050, L500.4100 ####[facility] [address] [place], [address] BUN Normal 7-18 [facility] Comment on above: Result Comment: no t ube in lab Performed By: #### L 503.6620, L500.4050, L500.4100 ####[facility] [address] [place], [address] BUN/CRE Normal 10-20 [facility] Comment on above: Result Comment: no t ube in lab Performed By: #### L 503.6620, L500.4050, L500.4100 ####[facility] [address] [place], [address] CA,Total Normal 8.5-10.1 [facility] Comment on above: Result Comment: no t ube in lab Performed By: #### L 503.6620, L500.4050, L500.4100 ####[facility] [address] [place], [address] CL Normal 98-107 [facility] Comment on above: Result Comment: no t ube in lab Performed By: #### L 503.6620, L500.4050, L500.4100 ####[facility] [address] [place], [address] CO2 Normal 21.0-32.0 [facility] Comment on above: Result Comment: no t ube in lab Performed By: #### L 503.6620, L500.4050, L500.4100 ####[facility] [address] [place], [address] CREAT,SERUM Normal 0.55-1.02 [facility] Comment on above: Result Comment: no t ube in lab Performed By: #### L 503.6620, L500.4050, L500.4100 ####[facility] [address] [place], [address] EST GFR Normal >60 [facility] Comment on above: Result Comment: no t ube in lab Performed By: #### L 503.6620, L500.4050, L500.4100 ####[facility] [address] [place], [address] EST GFR - AA Normal >60 [facility] Comment on above: Result Comment: no t ube in lab Performed By: #### L 503.6620, L500.4050, L500.4100 ####[facility] [address] [place], [address] GAP Normal 5-15 [facility] Comment on above: Result Comment: no t ube in lab Performed By: #### L 503.6620, L500.4050, L500.4100 ####[facility] [address] [place], [address] GLU Normal 74-106 [facility] Comment on above: Result Comment: no t ube in lab Performed By: #### L 503.6620, L500.4050, L500.4100 ####[facility] [address] [place], [address] Potassium Normal 3.5-5.1 [facility] Comment on above: Result Comment: no t ube in lab Performed By: #### L 503.6620, L500.4050, L500.4100 ####[facility] [address] [place], [address] T BILI Normal 0.20-1.00 [facility] Comment on above: Result Comment: no t ube in lab Performed By: #### L 503.6620, L500.4050, L500.4100 ####[facility] [address] [place], [address] T PROT Normal 6.4-8.2 [facility] Comment on above: Result Comment: no t ube in lab Performed By: #### L 503.6620, L500.4050, L500.4100 ####[facility] [address] [place], [address] Comprehensive Metabolic Profil Normal 136-145 [facility] Comment on above: Result Comment: no t ube in lab Performed By: #### L 503.6620, L500.4050, L500.4100 ####[facility] [address] [place], [address] Lipid Profileon 11-08-2023 HDL Normal [facility] Comment on above: Result Comment: no t ube in labThe drugs N-Acetylcysteine and Metamizole may falselydepress this assay. Performed By: #### L 503.6620, L500.4050, L500.4100 ####[facility] [address] [place], [address] TRIG Normal [facility] Comment on above: Result Comment: no t ube in labThe drugs N-Acetylcysteine and Metamizole may falselydepress this assay. Performed By: #### L 503.6620, L500.4050, L500.4100 ####[facility] [address] [place], [address] CHOL Normal 200 [facility] Comment on above: Result Comment: no t ube in lab Performed By: #### L 503.6620, L500.4050, L500.4100 ####[facility] [address] [place], [address] LDL Normal 0-130 [facility] Comment on above: Result Comment: no t ube in lab Performed By: #### L 503.6620, L500.4050, L500.4100 ####[facility] [address] [place], [address] VLDL Normal 5-40 [facility] Comment on above: Result Comment: no t ube in lab Performed By: #### L 503.6620, L500.4050, L500.4100 ####[facility] [address] [place], [address] Absolute lymphocyte countOrd ered By: Scott Hull on 07-13-2023 Lymphocytes Auto (Unsp spec) [#/Vol] 1.36 10*3/uL 0.83-4.51 [facility] Automated lymphocyte count a s percentage of total leukocytesOrdered By: Scott Hull on 07-13-2023 Lymphocytes/100 WBC Auto (Unsp spec) 23.9 % 19-41 [facility] Basophil percentageOrdered B y: Scott Kurtis on 07-13-2023 Basophils/100 WBC (Bld) 1.4 % 0-1 [facility] Bilirubin [Mass/Vol] 1.30 mg/dL 0.20-1.00 [facility] Comment on above: For patients on eltr ombopag therapy, use of Dimension [place] TBIL is not recommended. Chloride [Moles/Vol] 107 mmol/L 98-107 [facility] Cholesterol [Mass/Vol] 170 mg/dL <200 [facility] Comment on above: <200 mg/dL Desirable 200-240 mg/dL Borderline >240 mg/dL High Risk Eosinophils/100 WBC (Bld) 1.6 % 0-5 [facility] Glucose [Mass/Vol] 108 mg/dL 74-106 [facility] Comment on above: Fasting Glucose resu lt from 100 to 125 mg/dL suggests IMPAIRED HOMEOSTASIS per A.D.A. criteria. Hemoglobin (Bld) [Mass/Vol] 15.2 g/dL 12.0-15.0 [facility] Monocytes/100 WBC (Bld) 12.6 % 0-10 [facility] Neutrophils (Bld) [#/Vol] 3.4 10*3/uL 2.0-7.7 [facility] Neutrophils/100 WBC (Bld) 59.8 % 47-70 [facility] Potassium [Moles/Vol] 4.2 mmol/L 3.5-5.1 [facility] Protein [Mass/Vol] 7.0 g/dL 6.4-8.2 [facility] Sodium [Moles/Vol] 138 mmol/L 136-145 [facility] Triglyceride [Mass/Vol] 186 mg/dL <199 [facility] Comment on above: The drugs N-Acetylcy steine and Metamizole may falsely depress this assay.Serum Triglycerides Reference Interval Normal <150 mg/dL Borderline high 150 - 199 mg/dL High 200 - 499 mg/dL Very High > or = 500 mg/dL WBC (Bld) [#/Vol] 5.7 10*3/uL 4.4-11.0 [facility] Determination of erythrocyte mean corpuscular volume (MCV)Ordered By: Scott Hull on 07-13-2023 MCV (RBC) [Entitic vol] 97.0 fL 81-99 [facility] Erythrocyte distribution wid th ratioOrdered By: [facility] 07-13-2023 Erythrocyte distribution width (RBC) [Ratio] 13.1 % 11.6-14.6 [facility] Erythrocyte distribution wid th standard deviationOrdered By: [facility] 07-13-2023 Erythrocyte distribution width (RBC) [Entitic vol] 47.2 fL 35.1-43.9 [facility] Hematocrit Auto (Bld) [Volum e fraction]Ordered By: [facility] 07-13-2023 Hematocrit (Bld) [Volume fraction] 46.0 % 37-47 [facility] Immature granulocytes/100 WB C Auto (Bld)Ordered By: [facility] 07-13-2023 Immature granulocytes/100 WBC (Bld) 0.700 % 0.0-0.9 [facility] Comment on above: IG% - Immature Granu locytes (promyelocytes, myelocytes and metamyelocytes) > 1% indicates that a LEFT SHIFT is Present. Laboratory - Chemistry and C hemistry - challengeOrdered By: Scott Hull 07-13-2023 Albumin/Globulin [Mass ratio] 0.9 {ratio} 0.9-2.4 [facility] ALP [Catalytic activity/Vol] 64 U/L 45-117 [facility] ALT [Catalytic activity/Vol] 19 U/L 13-56 [facility] Cholesterol in HDL [Mass/Vol] 37 mg/dL >40 [facility] Comment on above: The drugs N-Acetylcy steine and Metamizole may falsely depress this assay. Reference Range HDL <40 mg/dL Low HDL Cholesterol HDL >or= 60 mg/dL High HDL Cholesterol Cholesterol in LDL [Mass/Vol] 96 mg/dL 0-130 [facility] CO2 [Moles/Vol] 26.0 mmol/L 21.0-32.0 [facility] Globulin (S) [Mass/Vol] 3.6 g/dL 2.2-4.2 [facility] Urea nitrogen/Creatinine [Mass ratio] 15.4 mg/mg 10-20 [facility] [facility] H[facility]ology and Cell countsOrdered By: Scott Hull on 07-13-2023 MCH (RBC) [Entitic mass] 32.1 pg 27.0-32.0 [facility] MCHC (RBC) [Mass/Vol] 33.0 g/dL 32-36 [facility] Nucleated RBC/100 WBC (Bld) [Ratio] 0 % 0-5 [facility] Platelet mean volume (Bld) [Entitic vol] 12.7 fL 6.2-12.0 [facility] Platelets (Bld) [#/Vol] 190 10*3/uL 150-450 [facility] No Panel InformationOrdered By: Scott Hull on 07-13-2023 Estimated GFR (MDRD) Amer 50 mL/min >60 [facility] Comment on above: GFR Calc Estimated GFR (MDRD) Non-Af Amer 42 mL/min >60 [facility] Comment on above: Non- GFR Calc Vitamin D 25-Hydroxy 21.5 ng/mL [facility] Comment on above: Vitamin D 25(OH) Sta tus Range Deficiency <20 ng/mL (50nmol/L) Insufficiency 20 - 30 ng/mL (50 - 75 nmol/L) Sufficiency 30 - 100 ng/mL (75 - 250 nmol/L) Toxicity >100 ng/mL (>250 nmol/L) VLDL Cholesterol 37 mg/dL 5-40 [facility] RBC Auto (Bld) [#/Vol]Ordere d By: Scott Hull on 07-13-2023 RBC (Bld) [#/Vol] 4.74 10*6/uL 4.2-5.4 [facility] Serum or plasma calcium leah urement (mass/volume)Ordered By: Scott Hull on 07-13-2023 Calcium [Mass/Vol] 8.8 mg/dL 8.5-10.1 [facility] Serum or plasma creatinine m easurement (mass/volume)Ordered By: Scott Hull on 07-13-2023 Creatinine [Mass/Vol] 1.30 mg/dL 0.55-1.02 [facility] Comment on above: The validity of the calculated GFR & GFRAA in patients over 70 years has not been determined. Clinical correlation is essential. Serum or plasma thyroid stim ulating hormone (TSH) measurement (units/volume)Ordered By: Scott Hull on 07-13-2023 TSH Qn 2.73 uIU/mL 0.358-3.74 [facility] Serum or plasma urea nitroge n measurement (mass/volume)Ordered By: Scott Hull on 07-13-2023 Urea nitrogen [Mass/Vol] 20 mg/dL 7-18 [facility] Serum or plasma uric acid me asurement (mass/volume)Ordered By: Scott Hull on 07-13-2023 Urate [Mass/Vol] 4.5 mg/dL 2.6-6.0 [facility] Comment on above: The drugs N-Acetylcy steine and Metamizole may falsely depress this assay. Thin prep Papanicolaou smear with manual screeningOrdered By: Scott Hull on 07-13-2023 Thin prep Papanicolaou smear with manual screening 3.4 g/dL 3.2-5.0 [facility] Thin prep Papanicolaou smear with manual screening 26 U/L 15-37 [facility] Thin prep Papanicolaou smear with manual screening 5 5-15 [facility] Absolute lymphocyte countOrd ered By: Scott Hull on 01-05-2023 Lymphocytes Auto (Unsp spec) [#/Vol] 2.04 10*3/uL 0.83-4.51 [facility] Basophil percentageOrdered B y: Scott Hull on 01-05-2023 Basophils/100 WBC (Bld) 1.1 % 0-1 [facility] Bilirubin [Mass/Vol] 0.90 mg/dL 0.20-1.00 [facility] Comment on above: For patients on eltr ombopag therapy, use of Dimension [place] TBIL is not recommended. Chloride [Moles/Vol] 108 mmol/L 98-107 [facility] Eosinophils/100 WBC (Bld) 2.1 % 0-5 [facility] Glucose [Mass/Vol] 108 mg/dL 74-106 [facility] Comment on above: Fasting Glucose resu lt from 100 to 125 mg/dL suggests IMPAIRED HOMEOSTASIS per A.D.A. criteria. Neutrophils (Bld) [#/Vol] 3.9 10*3/uL 2.0-7.7 [facility] Neutrophils/100 WBC (Bld) 54.6 % 47-70 [facility] Potassium [Moles/Vol] 4.1 mmol/L 3.5-5.1 [facility] Protein [Mass/Vol] 7.2 g/dL 6.4-8.2 [facility] Sodium [Moles/Vol] 140 mmol/L 136-145 [facility] WBC (Bld) [#/Vol] 7.1 10*3/uL 4.4-11.0 [facility] Blood erythrocytes count (nu mber/volume)Ordered By: Scott Hull on 01-05-2023 RBC (Bld) [#/Vol] 4.90 10*6/uL 4.2-5.4 [facility] Blood hemoglobin measurement (mass/volume)Ordered By: Scott Hull on 01-05-2023 Hemoglobin (Bld) [Mass/Vol] 15.7 g/dL 12.0-15.0 [facility] Blood lymphocytes/100 leukoc ytesOrdered By: Scott Hull on 01-05-2023 Lymphocytes/100 WBC (Bld) 28.6 % 19-41 [facility] Blood monocytes/100 leukocyt esOrdered By: Scott Hull on 01-05-2023 Monocytes/100 WBC (Bld) 13.0 % 0-10 [facility] Blood platelet mean volumeOr dered By: Scott Hull on 01-05-2023 Platelet mean volume (Bld) [Entitic vol] 12.0 fL 6.2-12.0 [facility] Determination of erythrocyte mean corpuscular volume (MCV)Ordered By: Scott Hull on 01-05-2023 MCV (RBC) [Entitic vol] 98.2 fL 81-99 [facility] Hematocrit Auto (Bld) [Volum e fraction]Ordered By: [facility] Kurtis on 01-05-2023 Hematocrit (Bld) [Volume fraction] 48.1 % 37-47 [facility] Laboratory - Chemistry and C hemistry - challengeOrdered By: [facility] on 01-05-2023 ALP [Catalytic activity/Vol] 63 U/L 45-117 [facility] ALT [Catalytic activity/Vol] 22 U/L 13-56 [facility] CO2 [Moles/Vol] 23.0 mmol/L 21.0-32.0 [facility] Globulin (S) [Mass/Vol] 3.9 g/dL 2.2-4.2 [facility] Urea nitrogen/Creatinine [Mass ratio] 15.3 mg/mg 10-20 [facility] Laboratory - Hematology and Cell countsOrdered By: [facility] on 01-05-2023 Erythrocyte distribution width (RBC) [Entitic vol] 49.0 fL 35.1-43.9 [facility] Erythrocyte distribution width (RBC) [Ratio] 13.5 % 11.6-14.6 [facility] Immature granulocytes/100 WBC (Bld) 0.600 % 0.0-0.9 [facility] Comment on above: IG% - Immature Granu locytes (promyelocytes, myelocytes and metamyelocytes) > 1% indicates that a LEFT SHIFT is Present. MCH (RBC) [Entitic mass] 32.0 pg 27.0-32.0 [facility] Nucleated RBC/100 WBC (Bld) [Ratio] 0 % 0-5 [facility] MCHC Auto (RBC) [Mass/Vol]Or dered By: Scott Kurtis on 01-05-2023 MCHC (RBC) [Mass/Vol] 32.6 g/dL 32-36 [facility] No Panel InformationOrdered By: Scott Hull on 01-05-2023 Estimated GFR (MDRD) Amer 56 mL/min >60 [facility] Comment on above: GFR Calc Estimated GFR (MDRD) Non-Af Amer 47 mL/min >60 [facility] Comment on above: Non- GFR Calc Thyroid Stimulating Hormone (TSH) 2.88 uIU/mL 0.358-3.74 [facility] Vitamin D 25-Hydroxy 16.6 ng/mL [facility] Comment on above: Vitamin D 25(OH) Sta tus Range Deficiency <20 ng/mL (50nmol/L) Insufficiency 20 - 30 ng/mL (50 - 75 nmol/L) Sufficiency 30 - 100 ng/mL (75 - 250 nmol/L) Toxicity >100 ng/mL (>250 nmol/L) Platelets bldOrdered By: Scott Hull on 01-05-2023 Platelets (Bld) [#/Vol] 227 10*3/uL 150-450 [facility] Serum or plasma albumin leah urement (mass/volume)Ordered By: Scott Hull on 01-05-2023 Albumin [Mass/Vol] 3.3 g/dL 3.2-5.0 [facility] Serum or plasma albumin/glob ulin mass ratioOrdered By: Scott Hull on 01-05-2023 Albumin/Globulin [Mass ratio] 0.8 {ratio} 0.9-2.4 [facility] Serum or plasma calcium leah urement (mass/volume)Ordered By: Scott Hull on 01-05-2023 Calcium [Mass/Vol] 8.7 mg/dL 8.5-10.1 [facility] Serum or plasma creatinine m easurement (mass/volume)Ordered By: Scott Hull on 01-05-2023 Creatinine [Mass/Vol] 1.18 mg/dL 0.55-1.02 [facility] Comment on above: The validity of the calculated GFR & GFRAA in patients over 70 years has not been determined. Clinical correlation is essential. Serum or plasma urea nitroge n measurement (mass/volume)Ordered By: Scott Hull on 01-05-2023 Urea nitrogen [Mass/Vol] 18 mg/dL 7-18 [facility] Serum or plasma uric acid me asurement (mass/volume)Ordered By: Scott Hull on 01-05-2023 Urate [Mass/Vol] 4.3 mg/dL 2.6-6.0 [facility] Comment on above: The drugs N-Acetylcy steine and Metamizole may falsely depress this assay. Thin prep Papanicolaou smear with manual screeningOrdered By: Scott Hull on 01-05-2023 Thin prep Papanicolaou smear with manual screening 18 U/L 15-37 [facility] Thin prep Papanicolaou smear with manual screening 9 5-15 [facility] Absolute lymphocyte countOrd ered By: Dr. Hull on 06-30-2022 Lymphocytes Auto (Unsp spec) [#/Vol] 1.80 10*3/uL 0.83-4.51 [facility] Basophil percentageOrdered B y: Dr. Hull on 06-30-2022 Basophils/100 WBC (Bld) 1.3 % 0-1 [facility] Bilirubin [Mass/Vol] 0.80 mg/dL 0.20-1.00 [facility] Comment on above: For patients on eltr ombopag therapy, use of Dimension [place] TBIL is not recommended. Chloride [Moles/Vol] 104 mmol/L 98-107 [facility] Eosinophils/100 WBC (Bld) 1.6 % 0-5 [facility] Glucose [Mass/Vol] 106 mg/dL 74-106 [facility] Comment on above: Fasting Glucose resu lt from 100 to 125 mg/dL suggests IMPAIRED HOMEOSTASIS per A.D.A. criteria. Neutrophils (Bld) [#/Vol] 5.8 10*3/uL 2.0-7.7 [facility] Neutrophils/100 WBC (Bld) 66.1 % 47-70 [facility] Potassium [Moles/Vol] 4.5 mmol/L 3.5-5.1 [facility] Protein [Mass/Vol] 6.9 g/dL 6.4-8.2 [facility] Sodium [Moles/Vol] 136 mmol/L 136-145 [facility] WBC (Bld) [#/Vol] 8.8 10*3/uL 4.4-11.0 [facility] Blood erythrocytes count (nu mber/volume)Ordered By: Dr. Hull on 06-30-2022 RBC (Bld) [#/Vol] 4.84 10*6/uL 4.2-5.4 [facility] Blood hemoglobin measurement (mass/volume)Ordered By: Dr. Hull on 06-30-2022 Hemoglobin (Bld) [Mass/Vol] 15.7 g/dL 12.0-15.0 [facility] Blood lymphocytes/100 leukoc ytesOrdered By: Dr. Hull on 06-30-2022 Lymphocytes/100 WBC (Bld) 20.5 % 19-41 [facility] Blood monocytes/100 leukocyt esOrdered By: Dr. Hull on 06-30-2022 Monocytes/100 WBC (Bld) 9.6 % 0-10 [facility] Blood platelet mean volumeOr dered By: Dr. Hull on 06-30-2022 Platelet mean volume (Bld) [Entitic vol] 12.5 fL 6.2-12.0 [facility] Determination of erythrocyte mean corpuscular volume (MCV)Ordered By: Dr. Hull on 06-30-2022 MCV (RBC) [Entitic vol] 97.5 fL 81-99 [facility] Hematocrit Auto (Bld) [Volum e fraction]Ordered By: Dr. Hull on 06-30-2022 Hematocrit (Bld) [Volume fraction] 47.2 % 37-47 [facility] Laboratory - Chemistry and C hemistry - challengeOrdered By: Dr. Hull on 06-30-2022 ALP [Catalytic activity/Vol] 74 U/L 45-117 [facility] ALT [Catalytic activity/Vol] 21 U/L 13-56 [facility] CO2 [Moles/Vol] 23.0 mmol/L 21.0-32.0 [facility] Globulin (S) [Mass/Vol] 3.4 g/dL 2.2-4.2 [facility] Urea nitrogen/Creatinine [Mass ratio] 18.2 mg/mg 10-20 [facility] Laboratory - Hematology and Cell countsOrdered By: Dr. Hull on 06-30-2022 Erythrocyte distribution width (RBC) [Entitic vol] 47.4 fL 35.1-43.9 [facility] Erythrocyte distribution width (RBC) [Ratio] 13.2 % 11.6-14.6 [facility] Immature granulocytes/100 WBC (Bld) 0.900 % 0.0-0.9 [facility] Comment on above: IG% - Immature Granu locytes (promyelocytes, myelocytes and metamyelocytes) > 1% indicates that a LEFT SHIFT is Present. MCH (RBC) [Entitic mass] 32.4 pg 27.0-32.0 [facility] Nucleated RBC/100 WBC (Bld) [Ratio] 0 % 0-5 [facility] MCHC Auto (RBC) [Mass/Vol]Or dered By: Dr. Hull on 06-30-2022 MCHC (RBC) [Mass/Vol] 33.3 g/dL 32-36 [facility] No Panel InformationOrdered By: Dr. Hull on 06-30-2022 Estimated GFR (MDRD) Amer 48 mL/min >60 [facility] Comment on above: GFR Calc Estimated GFR (MDRD) Non-Af Amer 39 mL/min >60 [facility] Comment on above: Non- GFR Calc Thyroid Stimulating Hormone (TSH) 3.20 uIU/mL 0.358-3.74 [facility] Vitamin D 25-Hydroxy 33.6 ng/mL [facility] Comment on above: Vitamin D 25(OH) Sta tus Range Deficiency <20 ng/mL (50nmol/L) Insufficiency 20 - 30 ng/mL (50 - 75 nmol/L) Sufficiency 30 - 100 ng/mL (75 - 250 nmol/L) Toxicity >100 ng/mL (>250 nmol/L) Platelets bldOrdered By: Dr. Hull on 06-30-2022 Platelets (Bld) [#/Vol] 252 10*3/uL 150-450 [facility] Serum or plasma albumin leah urement (mass/volume)Ordered By: Dr. Hull on 06-30-2022 Albumin [Mass/Vol] 3.5 g/dL 3.2-5.0 [facility] Serum or plasma albumin/glob ulin mass ratioOrdered By: Dr. Hull on 06-30-2022 Albumin/Globulin [Mass ratio] 1.0 {ratio} 0.9-2.4 [facility] Serum or plasma calcium leah urement (mass/volume)Ordered By: Dr. Hull on 06-30-2022 Calcium [Mass/Vol] 9.0 mg/dL 8.5-10.1 [facility] Serum or plasma creatinine m easurement (mass/volume)Ordered By: Dr. Hull on 06-30-2022 Creatinine [Mass/Vol] 1.37 mg/dL 0.55-1.02 [facility] Comment on above: The validity of the calculated GFR & GFRAA in patients over 70 years has not been determined. Clinical correlation is essential. Serum or plasma urea nitroge n measurement (mass/volume)Ordered By: Dr. Hull on 06-30-2022 Urea nitrogen [Mass/Vol] 25 mg/dL 7-18 [facility] Serum or plasma uric acid me asurement (mass/volume)Ordered By: Dr. Hull on 06-30-2022 Urate [Mass/Vol] 3.9 mg/dL 2.6-6.0 [facility] Comment on above: The drugs N-Acetylcy steine and Metamizole may falsely depress this assay. Thin prep Papanicolaou smear with manual screeningOrdered By: Dr. Hull on 06-30-2022 Thin prep Papanicolaou smear with manual screening 25 U/L 15-37 [facility] Thin prep Papanicolaou smear with manual screening 9 5-15 [facility] Absolute lymphocyte counton 12-30-2021 Lymphocytes Auto (Unsp spec) [#/Vol] 1.81 10*3/uL 0.83-4.51 [facility] Work Phone: Basophil percentageon 2021 Basophils/100 WBC (Bld) 1.1 % 0-1 [facility] Work Phone: Bilirubin [Mass/Vol] 1.10 mg/dL 0.20-1.00 [facility] Work Phone: Comment on above: For patients on eltr ombopag therapy, use of Dimension [place] TBIL is not recommended. Chloride [Moles/Vol] 108 mmol/L 98-107 [facility] Work Phone: Eosinophils/100 WBC (Bld) 1.4 % 0-5 [facility] Work Phone: Glucose [Mass/Vol] 104 mg/dL 74-106 [facility] Work Phone: Comment on above: Fasting Glucose resu lt from 100 to 125 mg/dL suggests IMPAIRED HOMEOSTASIS per A.D.A. criteria. Neutrophils (Bld) [#/Vol] 3.7 10*3/uL 2.0-7.7 [facility] Work Phone: Neutrophils/100 WBC (Bld) 55.7 % 47-70 [facility] Work Phone: Potassium [Moles/Vol] 4.1 mmol/L 3.5-5.1 [facility] Work Phone: Protein [Mass/Vol] 7.3 g/dL 6.4-8.2 [facility] Work Phone: Sodium [Moles/Vol] 138 mmol/L 136-145 [facility] Work Phone: WBC (Bld) [#/Vol] 6.6 10*3/uL 4.4-11.0 [facility] Work Phone: Blood erythrocytes count (nu mber/volume)on 12-30-2021 RBC (Bld) [#/Vol] 4.82 10*6/uL 4.2-5.4 [facility] Work Phone: Blood hemoglobin measurement (mass/volume)on 12-30-2021 Hemoglobin (Bld) [Mass/Vol] 15.4 g/dL 12.0-15.0 [facility] Work Phone: Blood lymphocytes/100 leukoc yteson 12-30-2021 Lymphocytes/100 WBC (Bld) 27.5 % 19-41 [facility] Work Phone: Blood monocytes/100 leukocyt eson 12-30-2021 Monocytes/100 WBC (Bld) 13.7 % 0-10 [facility] Work Phone: Blood platelet mean volumeon 12-30-2021 Platelet mean volume (Bld) [Entitic vol] 12.6 fL 6.2-12.0 [facility] Work Phone: Determination of erythrocyte mean corpuscular volume (MCV)on 12-30-2021 MCV (RBC) [Entitic vol] 96.3 fL 81-99 [facility] Work Phone: Hematocrit Auto (Bld) [Volum e fraction]on 12-30-2021 Hematocrit (Bld) [Volume fraction] 46.4 % 37-47 [facility] Work Phone: Laboratory - Chemistry and C hemistry - challengeon 12-30-2021 ALP [Catalytic activity/Vol] 78 U/L 45-117 [facility] Work Phone: ALT [Catalytic activity/Vol] 23 U/L 13-56 [facility] Work Phone: CO2 [Moles/Vol] 23.0 mmol/L 21.0-32.0 [facility] Work Phone: Globulin (S) [Mass/Vol] 3.9 g/dL 2.2-4.2 [facility] Work Phone: Urea nitrogen/Creatinine [Mass ratio] 19.0 mg/mg 10-20 [facility] Work Phone: Laboratory - Hematology and Cell countson 12-30-2021 Erythrocyte distribution width (RBC) [Entitic vol] 45.9 fL 35.1-43.9 [facility] Work Phone: Erythrocyte distribution width (RBC) [Ratio] 13.0 % 11.6-14.6 [facility] Work Phone: Immature granulocytes/100 WBC (Bld) 0.600 % 0.0-0.9 [facility] Work Phone: Comment on above: IG% - Immature Granu locytes (promyelocytes, myelocytes and metamyelocytes) > 1% indicates that a LEFT SHIFT is Present. MCH (RBC) [Entitic mass] 32.0 pg 27.0-32.0 [facility] Work Phone: Nucleated RBC/100 WBC (Bld) [Ratio] 0 % 0-5 [facility] Work Phone: MCHC Auto (RBC) [Mass/Vol]on 12-30-2021 MCHC (RBC) [Mass/Vol] 33.2 g/dL 32-36 [facility] Work Phone: No Panel Informationon 12-30 Estimated GFR (MDRD) Amer 58 mL/min >60 [facility] Work Phone: Comment on above: GFR Calc Estimated GFR (MDRD) Non-Af Amer 48 mL/min >60 [facility] Work Phone: Comment on above: Non- GFR Calc Thyroid Stimulating Hormone (TSH) 2.92 uIU/mL 0.358-3.74 [facility] Work Phone: Vitamin D 25-Hydroxy 18.4 ng/mL [facility] Work Phone: Comment on above: Vitamin D 25(OH) Sta tus Range Deficiency <20 ng/mL (50nmol/L) Insufficiency 20 - 30 ng/mL (50 - 75 nmol/L) Sufficiency 30 - 100 ng/mL (75 - 250 nmol/L) Toxicity >100 ng/mL (>250 nmol/L) Platelets bldon 12-30-2021 Platelets (Bld) [#/Vol] 222 10*3/uL 150-450 [facility] Work Phone: Serum or plasma albumin leah urement (mass/volume)on 12-30-2021 Albumin [Mass/Vol] 3.4 g/dL 3.2-5.0 [facility] Work Phone: Serum or plasma albumin/glob ulin mass ratioon 12-30-2021 Albumin/Globulin [Mass ratio] 0.9 {ratio} 0.9-2.4 [facility] Work Phone: Serum or plasma calcium leah urement (mass/volume)on 12-30-2021 Calcium [Mass/Vol] 9.1 mg/dL 8.5-10.1 [facility] Work Phone: Serum or plasma creatinine m easurement (mass/volume)on 12-30-2021 Creatinine [Mass/Vol] 1.16 mg/dL 0.55-1.02 [facility] Work Phone: Comment on above: The validity of the calculated GFR & GFRAA in patients over 70 years has not been determined. Clinical correlation is essential. Serum or plasma urea nitroge n measurement (mass/volume)on 12-30-2021 Urea nitrogen [Mass/Vol] 22 mg/dL 7-18 [facility] Work Phone: Serum or plasma uric acid me asurement (mass/volume)on 12-30-2021 Urate [Mass/Vol] 4.1 mg/dL 2.6-6.0 [facility] Work Phone: Comment on above: The drugs N-Acetylcy steine and Metamizole may falsely depress this assay. Thin prep Papanicolaou smear with manual screeningon 12-30-2021 Thin prep Papanicolaou smear with manual screening 22 U/L 15-37 [facility] Work Phone: Thin prep Papanicolaou smear with manual screening 7 5-15 [facility] Work Phone: Absolute lymphocyte counton 06-30-2021 Lymphocytes Auto (Unsp spec) [#/Vol] 1.74 10*3/uL 0.83-4.51 [facility] Work Phone: Basophil percentageon 2021 Basophils/100 WBC (Bld) 1.4 % 0-1 [facility] Work Phone: Bilirubin [Mass/Vol] 0.90 mg/dL 0.20-1.00 [facility] Work Phone: Comment on above: For patients on eltr ombopag therapy, use of Dimension [place] TBIL is not recommended. Chloride [Moles/Vol] 106 mmol/L 98-107 [facility] Work Phone: Eosinophils/100 WBC (Bld) 1.1 % 0-5 [facility] Work Phone: Glucose [Mass/Vol] 112 mg/dL 74-106 [facility] Work Phone: Comment on above: Fasting Glucose resu lt from 100 to 125 mg/dL suggests IMPAIRED HOMEOSTASIS per A.D.A. criteria. Neutrophils (Bld) [#/Vol] 3.8 10*3/uL 2.0-7.7 [facility] Work Phone: Neutrophils/100 WBC (Bld) 59.2 % 47-70 [facility] Work Phone: Potassium [Moles/Vol] 4.4 mmol/L 3.5-5.1 [facility] Work Phone: Protein [Mass/Vol] 7.3 g/dL 6.4-8.2 [facility] Work Phone: Sodium [Moles/Vol] 137 mmol/L 136-145 [facility] Work Phone: WBC (Bld) [#/Vol] 6.4 10*3/uL 4.4-11.0 [facility] Work Phone: Blood erythrocytes count (nu mber/volume)on 06-30-2021 RBC (Bld) [#/Vol] 4.95 10*6/uL 4.2-5.4 [facility] Work Phone: Blood hemoglobin measurement (mass/volume)on 06-30-2021 Hemoglobin (Bld) [Mass/Vol] 15.7 g/dL 12.0-15.0 [facility] Work Phone: Blood lymphocytes/100 leukoc yteson 06-30-2021 Lymphocytes/100 WBC (Bld) 27.3 % 19-41 [facility] Work Phone: Blood monocytes/100 leukocyt eson 06-30-2021 Monocytes/100 WBC (Bld) 10.7 % 0-10 [facility] Work Phone: Blood platelet mean volumeon 06-30-2021 Platelet mean volume (Bld) [Entitic vol] 12.7 fL 6.2-12.0 [facility] Work Phone: Determination of erythrocyte mean corpuscular volume (MCV)on 06-30-2021 MCV (RBC) [Entitic vol] 96.6 fL 81-99 [facility] Work Phone: Hematocrit Auto (Bld) [Volum e fraction]on 06-30-2021 Hematocrit (Bld) [Volume fraction] 47.8 % 37-47 [facility] Work Phone: Laboratory - Chemistry and C hemistry - challengeon 06-30-2021 ALP [Catalytic activity/Vol] 71 U/L 45-117 [facility] Work Phone: ALT [Catalytic activity/Vol] 26 U/L 13-56 [facility] Work Phone: CO2 [Moles/Vol] 25.0 mmol/L 21.0-32.0 [facility] Work Phone: Globulin (S) [Mass/Vol] 3.7 g/dL 2.2-4.2 [facility] Work Phone: Urea nitrogen/Creatinine [Mass ratio] 14.7 mg/mg 10-20 [facility] Work Phone: Laboratory - Hematology and Cell countson 06-30-2021 Erythrocyte distribution width (RBC) [Entitic vol] 46.4 fL 35.1-43.9 [facility] Work Phone: Erythrocyte distribution width (RBC) [Ratio] 13.1 % 11.6-14.6 [facility] Work Phone: Immature granulocytes/100 WBC (Bld) 0.300 % 0.0-0.9 [facility] Work Phone: Comment on above: IG% - Immature Granu locytes (promyelocytes, myelocytes and metamyelocytes) > 1% indicates that a LEFT SHIFT is Present. MCH (RBC) [Entitic mass] 31.7 pg 27.0-32.0 [facility] Work Phone: Nucleated RBC/100 WBC (Bld) [Ratio] 0 % 0-5 [facility] Work Phone: MCHC Auto (RBC) [Mass/Vol]on 06-30-2021 MCHC (RBC) [Mass/Vol] 32.8 g/dL 32-36 [facility] Work Phone: No Panel Informationon 06-30 Estimated GFR (MDRD) Amer 51 mL/min >60 [facility] Work Phone: Comment on above: GFR Calc Estimated GFR (MDRD) Non-Af Amer 42 mL/min >60 [facility] Work Phone: Comment on above: Non- GFR Calc Thyroid Stimulating Hormone (TSH) 2.54 uIU/mL 0.358-3.74 [facility] Work Phone: Vitamin D 25-Hydroxy 24.2 ng/mL [facility] Work Phone: Comment on above: Vitamin D 25(OH) Sta tus Range Deficiency <20 ng/mL (50nmol/L) Insufficiency 20 - 30 ng/mL (50 - 75 nmol/L) Sufficiency 30 - 100 ng/mL (75 - 250 nmol/L) Toxicity >100 ng/mL (>250 nmol/L) Platelets bldon 06-30-2021 Platelets (Bld) [#/Vol] 242 10*3/uL 150-450 [facility] Work Phone: Serum or plasma albumin leah urement (mass/volume)on 06-30-2021 Albumin [Mass/Vol] 3.6 g/dL 3.2-5.0 [facility] Work Phone: Serum or plasma albumin/glob ulin mass ratioon 06-30-2021 Albumin/Globulin [Mass ratio] 1.0 {ratio} 0.9-2.4 [facility] Work Phone: Serum or plasma calcium leah urement (mass/volume)on 04-13-2022 Calcium [Mass/Vol] 9.2 mg/dL 8.5-10.1 [facility] Work Phone: Serum or plasma creatinine m easurement (mass/volume)on 06-30-2021 Creatinine [Mass/Vol] 1.29 mg/dL 0.55-1.02 [facility] Work Phone: Comment on above: The validity of the calculated GFR & GFRAA in patients over 70 years has not been determined. Clinical correlation is essential. Serum or plasma urea nitroge n measurement (mass/volume)on 06-30-2021 Urea nitrogen [Mass/Vol] 19 mg/dL 7-18 [facility] Work Phone: Serum or plasma uric acid me asurement (mass/volume)on 06-30-2021 Urate [Mass/Vol] 4.3 mg/dL 2.6-6.0 [facility] Work Phone: Comment on above: The drugs N-Acetylcy steine and Metamizole may falsely depress this assay. Thin prep Papanicolaou smear with manual screeningon 06-30-2021 Thin prep Papanicolaou smear with manual screening 23 U/L 15-37 [facility] Work Phone: Thin prep Papanicolaou smear with manual screening 6 5-15 [facility] Work Phone: Office Visiton 01-04-2017 Dietary management education, guidance, and counseling (procedure) yes Invalid Interpretation Code [facility] Work Phone: Documentation of current medications (procedure) Done Invalid Interpretation Code [facility] Work Phone: Tobacco use CPHS Never smoker Invalid Interpretation Code [facility] Work Phone: Office Visit: [facility] 12-30-19 17 Documentation of current medications (procedure) Done Invalid Interpretation Code [facility] Work Phone: Fall risk assessment No Invalid Interpretation Code [facility] Work Phone: Protein mass conc Done Invalid Interpretation Code [facility] Work Phone: Office Visiton 09-28-2016 Dietary management education, guidance, and counseling (procedure) yes Invalid Interpretation Code [facility] Work Phone: Documentation of current medications (procedure) Done Invalid Interpretation Code [facility] Work Phone: Tobacco smoking status NHIS Never smoker Invalid Interpretation Code [facility] Work Phone: Tobacco use CPHS Never smoker Invalid Interpretation Code [facility] Work Phone: Office Visiton 06-29-2016 Dietary management education, guidance, and counseling (procedure) yes Invalid Interpretation Code [facility] Work Phone: Documentation of current medications (procedure) Done Invalid Interpretation Code [facility] Work Phone: Tobacco use CPHS Never smoker Invalid Interpretation Code [facility] Work Phone: Clinical Lists Update: Prelo secretarial stenographer 11-18-2015 Left ventricular Ejection fraction 65 % Invalid Interpretation Code [facility] Work Phone: Lab Report: Lipid Profileon 11-12-2015 Cholesterol 194 mg/dL Invalid Interpretation Code 200 [facility] Work Phone: HDL Cholesterol 45 mg/dL Invalid Interpretation Code [facility] Work Phone: LDL Cholesterol 123 mg/dL Invalid Interpretation Code 0-130 [facility] Work Phone: Triglyceride 132 mg/dL Invalid Interpretation Code [facility] Work Phone: very low density lipoproteins 26 mg/dL Invalid Interpretation Code 5-40 [facility] Work Phone: Lab Report: Liver Profileon 11-12-2015 Alanine aminotransferase (ALT) 19 U/L Invalid Interpretation Code 12-78 [facility] Work Phone: Albumin 3.6 g/dL Invalid Interpretation Code 3.4-5.0 [facility] Work Phone: Alkaline phosphatase (ALP) 72 U/L Invalid Interpretation Code 50136 [facility] Work Phone: ALP enzyme act/vol (Bld) 72 U/L Invalid Interpretation Code 50-136 [facility] Work Phone: Aspartate aminotransferase (AST) 17 U/L Invalid Interpretation Code 15-37 [facility] Work Phone: Bilirubin (direct) 0.17 mg/dL Invalid Interpretation Code 0.00-0.30 [facility] Work Phone: Bilirubin (total) 0.90 mg/dL Invalid Interpretation Code 0.20-1.00 [facility] Work Phone: Globulin 3.7 g/dL High 2.3-3.5 [facility] Work Phone: Protein 7.3 g/dL Invalid Interpretation Code 6.4-8.2 [facility] Work Phone: Vital Signs Date Time Vital Sign Value Performing Clinician Piotri kinsey 01-04-2024 11:57-0400 Body height 157.5 cm Mónica Maldonado CNP Work Phone: [facility] [employer] 01-04-2024 11:57-0400 Body mass index (BMI) [Ratio] 43.09 kg/m2 Mónica Maldonado CNP Work Phone: [facility] [employer] 01-04-2024 11:57-0400 Body weight 106.87 kg Mónica Maldonado CNP Work Phone: [facility] [employer] 01-04-2024 11:57-0400 Diastolic blood pressure 64 mm[Hg] Mónica Maldonado CNP Work Phone: [facility] [employer] 01-04-2024 11:57-0400 Heart rate 68 /min Mónica Maldonado CNP Work Phone: [facility] [employer] 01-04-2024 11:57-0400 SaO2% (BldA) [Mass fraction] 97 % Mónica Maldonado GUEST SERVICE SUPERVISOR Work Phone: [facility] [employer] 01-04-2024 11:57-0400 Systolic blood pressure 112 mm[Hg] Mónica Sandeep Maldonado CNP Work Phone: [facility] [employer] 12-26-2023 11:34-0400 Body temperature 96.49 [degF] Harjeet Huffman MD Work Phone: [facility] [employer] 12-26-2023 11:34-0400 Diastolic blood pressure 82 mm[Hg] Harjeet Huffman MD Work Phone: [facility] [employer] 12-26-2023 11:34-0400 Heart rate 87 /min Harjeet Huffman MD Work Phone: [facility] [employer] 12-26-2023 11:34-0400 Respiratory rate 22 /min Harjeet Huffman MD Work Phone: [facility] [employer] 12-26-2023 11:34-0400 SaO2% (BldA) [Mass fraction] 98 % Harjeet Huffman MD Work Phone: [facility] [employer] 12-26-2023 11:34-0400 Systolic blood pressure 148 mm[Hg] Harjeet Huffman MD Work Phone: [facility] [employer] 12-26-2023 09:27-0400 Body height 157.5 cm Harjeet Huffman MD Work Phone: [facility] [employer] 12-26-2023 09:27-0400 Body mass index (BMI) [Ratio] 45.91 kg/m2 Harjeet Huffman MD Work Phone: [facility] [employer] 12-26-2023 09:27-0400 Body weight 113.85 kg Harjeet Huffman MD Work Phone: [facility] [employer] 12-12-2023 13:57-0400 Diastolic blood pressure 76 mm[Hg] Ach Pop [facility] [employer] 12-12-2023 13:57-0400 Heart rate 73 /min Ach Pop [facility] [employer] 12-12-2023 13:57-0400 Respiratory rate 18 /min [facility] [employer] 12-12-2023 13:57-0400 Systolic blood pressure 128 mm[Hg] Ach Pop [facility] [employer] 12-12-2023 12:30-0400 Body temperature 96.8 [degF] Arlene Velez FUSE MAKER - GUEST SERVICE SUPERVISOR Work Phone: [facility] [employer] 12-12-2023 12:30-0400 Diastolic blood pressure 64 mm[Hg] Arlene Velez FUSE MAKER - GUEST SERVICE SUPERVISOR Work Phone: [facility] [employer] 12-12-2023 12:30-0400 Heart rate 50 /min Arlene Velez FUSE MAKER - GUEST SERVICE SUPERVISOR Work Phone: [facility] [employer] 12-12-2023 12:30-0400 Respiratory rate 18 /min Arlene Velez FUSE MAKER - GUEST SERVICE SUPERVISOR Work Phone: [facility] [employer] 12-12-2023 12:30-0400 Systolic blood pressure 113 mm[Hg] Arlene Velez FUSE MAKER - GUEST SERVICE SUPERVISOR Work Phone: [facility] [employer] 12-12-2023 07:34-0400 Body temperature 97 [degF] [facility] [employer] 11-21-2023 14:17-0400 Body height 157.5 cm Juan Reed DO Work Phone: [facility] [employer] 11-21-2023 14:17-0400 Body mass index (BMI) [Ratio] 43.15 kg/m2 Juan Reed DO Work Phone: [facility] [employer] 11-21-2023 14:17-0400 Body weight 107 kg Juan Reed DO Work Phone: [facility] [employer] 11-21-2023 14:17-0400 Diastolic blood pressure 82 mm[Hg] Juan Reed DO Work Phone: [facility] [employer] 11-21-2023 14:17-0400 Heart rate 58 /min Juan Reed DO Work Phone: [facility] [employer] 11-21-2023 14:17-0400 SaO2% (BldA) [Mass fraction] 98 % Juan Reed DO Work Phone: [employer] [employer] 11-21-2023 14:17-0400 Systolic blood pressure 136 mm[Hg] Juan Reed DO Work Phone: [facility] [employer] 11-21-2023 14:01-0400 Body height 157.5 cm Harjeet Huffman MD Work Phone: [employer] 11-21-2023 14:01-0400 Body mass index (BMI) [Ratio] 43.31 kg/m2 Harjeet Huffman MD Work Phone: [employer] 11-21-2023 14:010400 Body weight 107.41 kg Harjeet Huffman MD Work Phone: [employer] [employer] 11-21-2023 14:01-0400 Diastolic blood pressure 82 mm[Hg] Harjeet Huffman MD Work Phone: [employer] 11-21-2023 14:01-0400 Heart rate 58 /min Harjeet Huffman MD Work Phone: [facility] [employer] 11-21-2023 14:01-0400 SaO2% (BldA) [Mass fraction] 98 % Harjeet Huffman MD Work Phone: [employer] 11-21-2023 14:010400 Systolic blood pressure 136 mm[Hg] Harjeet Huffman MD Work Phone: [employer] 12-29-2016 10:240400 BMI (Body Mass Index) 38.01 kg/m2 Shelly Ahuja [facility] Work Phone: 12-29-2016 10:24-0400 BP Diastolic 80 mm[Hg] Shelly Ahuja [facility] Work Phone: 12-29-2016 10:24-0400 BP Systolic 128 mm[Hg] Shelly Ahuja [facility] Work Phone: 12-29-2016 10:24-0400 Height 161.29 cm Shelly Ahuja [facility] Work Phone: 12-29-2016 10:24-0400 Pulse (Heart Rate) 72 /min [facility] Work Phone: 12-29-2016 10:24-0400 Respiratory Rate 20 /min [facility] Work Phone: 12-29-2016 10:24-0400 Weight 98.88 kg [facility] Work Phone: 05-26-2016 14:01-0500 BMI (Body Mass Index) 37.83 kg/m2 [facility] Work Phone: 05-26-2016 14:01-0500 BP Diastolic 76 mm[Hg] [facility] Work Phone: 05-26-2016 14:01-0500 BP Systolic 144 mm[Hg] [facility] Work Phone: 05-26-2016 14:01-0500 Height 161.29 cm [facility] Work Phone: 05-26-2016 14:01-0500 Pulse (Heart Rate) 76 /min [facility] Work Phone: 05-26-2016 14:01-0500 Respiratory Rate 18 /min [facility] Work Phone: 05-26-2016 14:01-0500 Weight 98.43 kg [facility] Work Phone: 11-10-2015 14:49-0400 BSA (Body Surface Area) 2.03 m2 [facility] Work Phone: Encounters Encounter Date Encounter Type Care Provider Facility Start: 10-07-2024 ambulatory Scott Chi Kurtis Facility:[facility] Start: 09-24-2024 ambulatory Scott Chi Kurtis Facility:[facility] Start: 09-24-2024 [facility] Start: 09-02-2024 End: 09-02-[address] Scott Hull MD Work Phone: [facility] Start: 09-02-2024 End: 09-02-2024 Patient encounter procedure Sara Irizarry [facility] Work Phone: Start: 08-27-2024 ambulatory Scott Chi Kurtis Facility:[facility] Start: 08-27-2024 [facility] Start: 08-20-2024 End: 08-20-[address] Scott Hull MD Work Phone: [facility] Start: 08-20-2024 End: 08-20-2024 Patient encounter procedure Sara Irizarry [facility] Work Phone: Start: 08-14-2024 ambulatory Scott Chi Kurtis Facility:[facility] Start: 08-14-2024 [facility] Start: 07-30-2024 End: 07-30-[address] Scott Hull MD Work Phone: [facility] Work Phone: Start: 07-30-2024 End: 07-30-2024 [facility] Start: 07-30-2024 End: 07-30-2024 ambulatory Scott Chi Kurtis Facility:[facility] Start: 07-23-2024 End: 07-23-[address] Scott Hull MD Work Phone: [facility] Start: 07-23-2024 End: 07-23-[address] Joe Sanchez MD [facility] Work Phone: Start: 07-15-2024 End: 07-15-[address] Scott Hull MD Work Phone: [facility] Work Phone: Start: 07-15-2024 End: 07-15-2024 [facility] Start: 07-15-2024 [facility] Start: 07-15-2024 End: 07-15-2024 ambulatory Efewongbe Oleghe OLS Facility:[facility] Start: 07-02-2024 End: 07-02-[address] Scott Hull MD Work Phone: [facility] Work Phone: Start: 07-02-2024 End: 07-02-2024 [facility] Start: 07-02-2024 End: 07-02-2024 ambulatory Efewongbe Oleghe OLS Facility:[facility] Start: 06-18-2024 End: 06-18-2024 [facility] Start[facility] 06-18-2024 [facility] Start: 06-18-2024 End: 06-18-2024 ambulatory Efewongbe Oleghe OLS Facility:[facility] Start: 06-04-2024 End: 06-04-[address] Scott Hull MD Work Phone: [facility] Work Phone: Start: 06-04-2024 End: 06-04-2024 [facility] Start: 06-04-2024 End: 06-04-2024 ambulatory Efewongbe Oleghe OLS Facility:[facility] Start: 05-28-2024 End: 05-28-2024 ambulatory Efewongbe Oleghe Facility:[facility] Start: 05-28-2024 End: 05-28-[address] Joe Sanchez MD -[facility] Work Phone: Start: 05-16-2024 End: 05-16-2024 ambulatory Eriberto VILLALOBOS Facility:[facility] Start: 05-16-2024 End: 05-16-2024 Patient encounter procedure Eriberto VILLALOBOS -[facility] Work Phone: Start: 05-07-2024 ambulatory Efmontez Chaue OLS Fa cility:[facility] Start: 05-07-2024 [facility] Start: 04-22-2024 ambulatory Efewkayleigh Chaue OLS Fa cility:[facility] Start: 04-22-2024 [facility] Start: 04-18-2024 ambulatory Scott Chi Kurtis Facility:[facility] Start: 04-09-2024 End: 04-09-2024 [facility] Start: 04-09-2024 End: 04-09-2024 ambulatory Efmontez PORTILLO Facility:[facility] Start: 04-02-2024 End: 04-02-2024 ambulatory Efmontez Morrishans Facility:[facility] Start: 04-02-2024 End: 04-02-[address] Joe Sanchez MD -[facility] Work Phone: Start: 03-15-2024 End: 03-15-2024 ambulatory Scott Chi Kurtis Facility:[facility] Start: 03-15-2024 End: 03-15-2024 Patient encounter procedure Sara MONTEMAYOR -[facility] Work Phone: Start: 03-15-2024 ambulatory Joe Sanchez OLS Fa cility:[facility] Start: 03-15-2024 [facility] Start: 03-08-2024 ambulatory Scott Chi Kurtis Facility:[facility] Start: 03-08-2024 [facility] Start: 03-01-2024 End: 03-01-2024 Departed Referred Joe Sanchez MD [facility] Start: 03-01-2024 End: 03-01-2024 ambulatory Scott Chi Kurtis Facility:[facility] Start: 02-27-2024 End: 02-27-2024 ambulatory Scott Chi Kurtis Facility:[facility] Start: 02-27-2024 End: 02-27-2024 Patient encounter procedure Sara MONTEMAYOR -[facility] Work Phone: Start: 02-23-2024 End: 02-23-2024 ambulatory Scott Chi Kurtis Facility:[facility] Start: 02-16-2024 ambulatory Scott Chi Kurtis Facility:[facility] Start: 02-09-2024 ambulatory Scott Chi Kurtis Facility:[facility] Start: 02-07-2024 End: 02-07-2024 ambulatory Scott Chi Kurtis Facility:[facility] Start: 02-02-2024 ambulatory Scott Chi Kurtis Facility:[facility] Start: 01-29-2024 ambulatory Scott Chi Kurtis Facility:[facility] Start: 01-26-2024 ambulatory Scott Chi Kurtis Facility:[facility] Start: 01-22-2024 ambulatory Scott Chi Kurtis Facility:[facility] Start: 01-19-2024 ambulatory Joe Velarde cility:[facility] Start: 01-18-2024 End: 01-18-2024 ambulatory Scott Chi Kurtis Facility:[facility] Start: 01-16-2024 End: 01-16-2024 ambulatory Scott Chi Kurtis Facility:[facility] Start: 01-15-2024 End: 01-15-2024 ambulatory Scott Chi Kurtis Facility:[facility] Start: 01-12-2024 ambulatory Scott Chi Kurtis Facility:[facility] Start: 01-11-2024 End: 01-11-2024 ambulatory Scott Chi Kurtis Facility:[facility] Start: 01-08-2024 ambulatory Scott Chi Kurtis [facility] Start: 01-08-2024 ambulatory Scott Chi Kurtis [facility] Start: 01-06-2024 ambulatory Scott Chi Kurtis [facility] Start: 01-06-2024 End: 01-10-2024 Evaluation and management of inpatient Sudarshan Jaime Facility:[facility] Start: 01-05-2024 ambulatory [facility] Facility:[facility] Start: 01-04-2024 End: 02-22-2024 Telephone encounter Mónica Hopkins APRN - GUEST SERVICE SUPERVISOR Work Phone: [facility] [employer] Comment on above: Orders Start: 01-04-2024 End: 01-04-2024 Office outpatient visit 25 minutes Mónica Hopkins APRN - GUEST SERVICE SUPERVISOR Work Phone: [facility] Comment on above: Chronic atrial fibri llation (HCC) (Primary Dx); Severe aortic stenosis; Stage 3a chronic kidney disease (HCC); Left heart failure (HCC) Start: 01-04-2024 End: 01-04-2024 ambulatory MÓNICA [facility] Start: 12-25-2023 End: 12-26-2023 Evaluation and management of inpatient Harjeet Huffman MD Work Phone: [facility] Cardiac Thoracic Vascular Intensive Care Unit CTV ICU T1 Comment on above: Severe aortic stenos is (Primary Dx); Nonrheumatic aortic valve stenosis Start: 12-22-2023 End: 12-22-2023 ambulatory Arlene Velez APRN - GUEST SERVICE SUPERVISOR Work Phone: [facility] Comment on above: Severe aortic stenos is (Primary Dx) Start: 12-19-2023 End: 12-19-2023 ambulatory [facility] Facility:[facility] Start: 12-12-2023 End: 12-12-2023 Office outpatient visit 25 minutes Mónica Hopkins FUSE MAKER - GUEST SERVICE SUPERVISOR Work Phone: [facility] Comment on above: Chronic atrial fibri llation (HCC) (Primary Dx); Nonrheumatic aortic valve stenosis; Adverse effect of contrast media, initial encounter Start: 12-12-2023 End: 12-12-2023 Subsequent hospital visit by physician Arlene Velez APRN - GUEST SERVICE SUPERVISOR Work Phone: [facility] Comment on above: Nonrheumatic aortic valve stenosis Start: 12-12-2023 End: 12-12-2023 ambulatory Harjeet Huffman MD Work Phone: [facility] Comment on above: Renal failure, unspe cified chronicity; Stenosis of prosthetic aortic valve, initial encounter Start: 12-04-2023 End: 12-04-2023 ambulatory [facility] Facility:[facility] Start: 11-21-2023 End: 11-21-2023 Office outpatient new 45 minutes Thaddeus Mckeon MD Work Phone: [facility] Comment on above: Nonrheumatic aortic valve stenosis (Primary Dx); Chronic atrial fibrillation (HCC); Short-term memory loss; Drug-induced bradycardia; Polypharmacy Start: 11-21-2023 End: 11-21-2023 Office outpatient new 60 minutes Juan Reed DO Work Phone: [facility] Comment on above: Stenosis of prosthet ic aortic valve, initial encounter (Primary Dx) LV dysfunction (Prim logan Dx); Stenosis of prosthetic aortic valve, initial encounter Start: 11-21-2023 End: 11-21-2023 ambulatory THADDEUS MCKEON [facility] Start: 11-08-2023 End: 11-09-2023 ambulatory [facility] Facility:[facility] Start: 11-08-2023 End: 11-08-2023 ambulatory [facility] Facility:[facility] Start: 07-13-2023 End: 07-13-2023 ambulatory [facility] Work Phone: Start: 07-13-2023 End: 07-13-2023 Patient encounter procedure [facility] Work Phone: Start: 01-05-2023 End: 01-05-2023 ambulatory [facility] Work Phone: Start: 01-05-2023 End: 01-05-2023 Patient encounter procedure [facility], Phy Office 3rd Flr Start: 06-30-2022 End: 06-30-2022 ambulatory [facility] Work Phone: Start: 06-30-2022 End: 06-30-2022 Patient encounter procedure [facility], Phy Office 3rd Flr Start: 12-30-2021 End: 12-30-2021 ambulatory [facility] Work Phone: Start: 12-30-2021 End: 12-30-2021 Patient encounter procedure [facility], Phy Office 3rd Flr Start: 06-30-2021 End: 06-30-2021 Patient encounter procedure [facility], Phy Office 3rd Flr Start: 09-11-2017 Patient encounter status [facility] Procedures Date Procedure Procedure Detail Performing Clinician [...] or wo fol wcon,Doppler Mónica Radford Sandeep FUSE MAKER - GUEST SERVICE SUPERVISOR Work Phone: Start: 12-26-2023 Ecg routine ecg w/le ast 12 lds trcg only w/o i&r Mónica Malina Hopkins FUSE MAKER - GUEST SERVICE SUPERVISOR Work Phone: Start: 12-26-2023 Basic metabolic pane l calcium total Mónica Radford Sandeep FUSE MAKER - GUEST SERVICE SUPERVISOR Work Phone: Start: 12-25-2023 Echo transthorc r-t 2d w/wo m-mode rec f-up/lmtd Harjeet Huffman MD Work Phone: Start: 12-25-2023 Basic metabolic pane l calcium total Mónica Radford Sandeep FUSE MAKER - GUEST SERVICE SUPERVISOR Work Phone: Start: 12-25-2023 Ecg routine ecg w/le ast 12 lds trcg only w/o i&r Mónica Malina Spanglerel FUSE MAKER - GUEST SERVICE SUPERVISOR Work Phone: Start: 12-25-2023 OXYGEN THERAPY Mónicajavier Hopkins FUSE MAKER - GUEST SERVICE SUPERVISOR Work Phone: Start: 12-25-2023 Cardiac catheterizat ion study Harjeet Huffman MD Work Phone: Start: 12-25-2023 Antibody screen HARJEET DOWNING Comment on above: Performed By: #### L [id number] #### Nephrologist: AIDE RUEDA ([id number]) [facility] ([facility]) [address] [place] [address] Start: 12-25-2023 End: 12-25-2023 Blood typing serologic rh (d) Tien Cornell MD Work Phone: Start: 12-25-2023 End: 12-25-2023 TRANSCATHETER AORTIC VALVE REPLACEMENT (TAVR) - OR Tien Cornell MD Work Phone: Start: 12-12-2023 Antibody screen HARJEET DOWNING Comment on above: Performed By: #### L [id number] ####Nephrologist: AIDE RUEDA ([id number])[facility] ([facility])[address] [place] [address] Start: 12-12-2023 Blood typing serologic abo Harjeet [...] DTaP/Tdap/Td Vaccines (2 - Td or Tdap) [facility] Start: 12-25-2024 Creatinine measurement Creatinine Level [facility] Start: 12-25-2024 Echocardiography Echocardiogram [facility] Start: 12-25-2024 Potassium measurement Potassium Level [facility] Start: 03-20-2024 Medicare Advantage Annual Wellness Visit Medicare Advantage Annual Wellness Visit [facility] Start: 01-04-2024 End: 01-04-2024 Patient encounter procedure 01/04/2024 12:00 PM EDT Office Visit [facility] [place] [address] [place] [address] Mónica Hopkins, FUSE MAKER - GUEST SERVICE SUPERVISOR [address] [address] [facility] [place] Start: 12-25-2023 End: 12-25-2023 Admission to same day surgery center 12/25/2023 9:15 AM EDT - 12/25/2023 11:00 AM EDT Surgery [facility] [address] [place] [phone] Harjeet Huffman MD [address] [facility] [address] [place] [address] TRANSCATHETER AORTIC VALVE REPLACEMENT, TRANSTHORACIC ECHOCARDIOGRAM [facility] Comment on above: TRANSCATHETER AORTIC VALVE REPLACEMENT, TRANSTHORACIC ECHOCARDIOGRAM Start: 12-25-2023 End: 12-25-2023 Anesthesia consultation 12/25/2023 9:15 AM EDT Anesthesia Event [facility] [address] [place] [address] [place] [phone] Carolina Waldron, FUSE MAKER - GUEST SERVICE SUPERVISOR 1 [facility] [address] [place] [address] [facility] Start: 12-25-2023 Subsequent hospital visit by physician 12/25/2023 9:15 AM EDT Hospital Encounter [facility] [address] [place] [phone] Harjeet Huffman MD 95 [facility] [address] [place], [place] [id number] Nonrheumatic aortic valve stenosis [facility] Comment on above: Nonrheumatic aortic valve stenosis Start: 12-25-2023 End: 12-25-2023 TRANSCATHETER AORTIC VALVE REPLACEMENT (TAVR) - OR TRANSCATHETER AORTIC VALVE REPLACEMENT (TAVR) - OR Nonrheumatic aortic valve stenosis 12/25/2023 9:15 AM EDT [facility] Start: 11-19-2023 COVID-19 Vaccine ( season) COVID-19 Vaccine ( season) [facility] Start: 11-19-2023 COVID-19 Vaccine ( season) COVID-19 Vaccine ( season) [facility] Start: 11-19-2023 Influenza vaccination Influenza Vaccine (#1) [facility] Start: 03-20-2023 Medicare Advantage Annual Wellness Visit Medicare Advantage Annual Wellness Visit [facility] Start: 11-09-2020 Lipid panel Lipid Panel [facility] Start: 07-10-2017 End: 07-10-2017 Appointment Appointment [facility] Work Phone: Start: 01-05-2017 End: 01-09-2017 Nuclear stress test -Lexiscan Nuclear stress test -Lexiscan [facility] Work Phone: Start: 01-04-2017 End: 01-04-2017 Appointment Appointment [facility] Work Phone: Start: 01-03-2017 End: 01-05-2017 Nuclear stress test -exercise Nuclear stress test -exercise [facility] Work Phone: Start: 12-29-2016 End: 12-29-2016 DJN DJN [facility] Work Phone: Start: 12-29-2016 End: 12-29-2016 Echocardiography Echocardiogram (complete) [facility] Work Phone: Start: 12-29-2016 End: 12-29-2016 Follow Up Appt 6 months Follow Up Appt 6 months [facility] Work Phone: Start: 12-29-2016 End: 12-29-2016 Nuclear stress test -exercise Nuclear stress test -exercise [facility] Work Phone: Start: 12-29-2016 End: 12-29-2016 Appointment Appointment [facility] Work Phone: Start: 12-15-2016 End: 12-15-2016 Appointment Appointment [facility] Work Phone: Start: 11-11-2016 End: 11-18-2015 *Hepatic Function Panel *Hepatic Function Panel [facility] Work Phone: Start: 11-11-2016 End: 11-18-2015 Lipid panel [AGGREGATE] *Lipid Profile CC PCP [facility] Work Phone: Start: 11-11-2016 End: 11-18-2015 *Hepatic Function Panel *Hepatic Function Panel [facility] Work Phone: Start: 11-11-2016 End: 11-18-2015 Lipid panel [AGGREGATE] *Lipid Profile CC PCP [facility] Work Phone: Start: 09-28-2016 End: 09-28-2016 Appointment Appointment [facility] Work Phone: Start: 05-26-2016 End: 05-26-2016 ERIC REYES [facility] Work Phone: Start: 05-26-2016 End: 05-26-2016 Follow Up Appt 6 months Follow Up Appt 6 months [facility] Work Phone: Start: 05-26-2016 End: 05-26-2016 ERIC REYES [facility] Work Phone: Start: 05-26-2016 End: 05-26-2016 Follow Up Appt 6 months Follow Up Appt 6 months [facility] Work Phone: Start: 11-10-2015 End: 11-12-2015 *Hepatic Function Panel *Hepatic Function Panel [facility] Work Phone: Start: 11-10-2015 End: 05-20-2016 ERIC REYES [facility] Work Phone: Start: 11-10-2015 End: 11-10-2015 Echocardiography Echocardiogram (complete) [facility] Work Phone: Start: 11-10-2015 End: 11-10-2015 Follow Up Appt 6 months Follow Up Appt 6 months [facility] Work Phone: Start: 11-10-2015 End: 11-12-2015 Lipid panel [AGGREGATE] *Lipid Profile CC PCP [facility] Work Phone: Start: 11-10-2015 End: 11-12-2015 *Hepatic Function Panel *Hepatic Function Panel [facility] Work Phone: Start: 11-10-2015 End: 05-20-2016 ERIC REYES [facility] Work Phone: Start: 11-10-2015 End: 11-10-2015 Echocardiography Echocardiogram (complete) [facility] Work Phone: Start: 11-10-2015 End: 11-10-2015 Follow Up Appt 6 months Follow Up Appt 6 months [facility] Work Phone: Start: 11-10-2015 End: 11-12-2015 Lipid panel [AGGREGATE] *Lipid Profile CC PCP [facility] Work Phone: Start: 1952 Depression Screening Depression Screening [facility] Start: 1940 Lipid panel Lipid Panel [facility] Start: 1940 Screening for osteoporosis Bone Density Scan [facility] End: 12-12-2023 CT Chest WO and CT angiogram Coronary arteries W contrast IV [facility] Work Phone: Comment on above: Once for 1 Occurrences starting 12/12/19 until 12/12/2023 ECG 12 lead - CLINIC PERFORMED ECG 12 lead - CLINIC PERFORMED CV ECG Routine Severe aortic stenosis 01/04/2024 11:54 AM EDT [facility] Work Phone: Patient Education [facility] Work Phone: Immunizations Immunization Date Immunization Notes Care Provider [facility] 01-05-2023 influenza virus vaccine, unspecified formulation Thaddeus Mckeon MD Work Phone: [facility] 12-27-2017 influenza, injectabl e, quadrivalent, preservative free [facility] 12-27-2017 influenza, seasonal, injectable [facility] Payers Date Payer Category Payer Unknown 2024 Unknown [id number] 2024 Medicaid [id number] 2023 Self-pay [id number] 2023 Medicare [employer] MED[employer] RE [employer] SECURE [id number] 2023-Present [address] [place] [address] Medicare HMO [id number] 2023 Medicare HMO [employer] SECURE [id number] 2016 Medicare [id number] Unknown [id number] 2.16.840.1.081146.3.579.2.462 Unknown [id number] 2.16840.1.422558.3.579.2.462 Unknown [id number] 2.16.840.1.890191.3.579.2.462 Unknown [id number] 2.16.840.1.511146.3.579.2.462 Unknown [id number] 2.16.840.1.546254.3.579.2.462 Unknown [id number] 2.16.840.1.352120.3.579.2.462 Unknown [id number] 2.16.840.1.000988.3.579.2.462 Unknown [id number] 2.16.840.1.396966.3.579.2.462 Unknown [id number] 2.16.840.1.107140.3.579.2.462 Unknown [id number] 2.16840.1.161342.3.579.2.462 Unknown [id number] 2.16.840.1.919267.3.579.2.462 Unknown [id number] 2.16.840.1.065527.3.579.2.462 Unknown [id number] 2.16.840.1.163041.3.579.2.462 Unknown [id number] 2.16.840.1.112245.3.579.2.462 Unknown [id number] 2.16.840.1.399911.3.579.2.462 Unknown [id number] 2.16.840.1.375021.3.579.2.462 Unknown [id number] 2.16.840.1.250243.3.579.2.462 Unknown [id number] 2.16.840.1.314044.3.579.2.462 Unknown [id number] 2.16.840.1.760242.3.579.2.462 Unknown [id number] 2.16.840.1.268205.3.579.2.462 Unknown [id number] 2.16.840.1.006362.3.579.2.462 Unknown [id number] 2.16.840.1.583227.3.579.2.462 Unknown [id number] 2.16.840.1.498634.3.579.2.462 Unknown [id number] 2.16.840.1.467438.3.579.2.462 Unknown [id number] 2.16.840.1.293951.3.579.2.462 Unknown [id number] 2.16.840.1.271597.3.579.2.462 Unknown [id number] 2.16.840.1.994920.3.579.2.462 Unknown [id number] 2.16.840.1.340301.3.579.2.462 Unknown [id number] 2.840.1.084573.3.579.2.462 Unknown [id number] 2.840.1.041002.3.579.2.462 Unknown [id number] 2.16840.1.253202.3.579.2.462 Unknown 2020 2.16840.1.306465.3.579.2.462 Unknown [id number] 2.840.1.159498.3.579.2.462 Unknown [id number] 2.840.1.887491.3.579.2.462 Unknown [id number] 2.840.1.784183.3.579.2.462 Unknown [id number] 2.840.1.229156.3.579.2.462 Unknown [id number] 2.840.1.454147.3.579.2.462 Unknown [id number] 2.840.1.035805.3.579.2.462 Unknown [id number] 2.840.1.366979.3.579.2.462 Unknown [id number] 2.840.1.058399.3.579.2.462 Unknown [id number] 2.840.1.953255.3.579.2.462 Unknown [id number] 2.840.1.832939.3.579.2.462 Unknown [id number] 2.840.1.360303.3.579.2.462 Unknown [id number] 2.840.1.650580.3.579.2.462 Unknown [id number] 2.840.1.217909.3.579.2.462 Unknown [id number] 2.840.1.914208.3.579.2.462 Social History Date Type Detail Facility Start: [facility]04[facility] Start: 12-28-2017 Non-smoker [facility] Start: 1940 Sex Assigned At Female [facility] Start: 2023 End: 01-10-2024 Tobacco smoking status AZIS Never smoked tobacco [facility] Start: 2023 Tobacco use and exposure Smokeless tobacco non-user [facility] Start: 11-21-2023 End: 01-04-2024 Alcoholic beverage intake Lifetime non-drinker (finding) [facility] Start: 11-21-2023 End: 01-04-2024 History of Social function [facility] Start: 11-21-2023 End: 01-04-2024 Tobacco use panel [facility] Start: 1940 Sex assigned at Not on file [facility] Start: 10-18-2021 End: 06-25-2024 Sex Female (finding) [facility] Medical Equipment Procedure Code Equipment Code Equipment [...] Valve Aor Soumya 3 Ultra 23mm - [id number] - [id number] Start: 12-25-2023 Comment on above: Description: [id number] Device Perclose Prostyle - [id number] Start: 12-25-2023 Device Perclose Prostyle - [id number] Start: 12-25-2023 DOUGH,CEMENT [id number] FDA Start: [...] Note Records received and scanned under Media [facility] 04-03-2024 Miscellaneous Notes Records received and scanned under Media I called [facility] and she requested me to fax med recs release to [phone] I faxed this morning. Confirmed 04/02 at 5:45p I spoke w/ Juana in Dr. Garces's office, asking for echo order to be faxed. I placed order, Teofilo Hopkins DNP to sign, order needs faxed to Juana's attention @ [phone]. Time frame dates given to Juana for completion of OV/EKG/echo. KCCQ mailed to pt. ----- Message from Mónica Hopkins, JEREMIE - GUEST SERVICE SUPERVISOR sent at 01/04/2024 1:51 PM EDT ----- Please call [facility] office and advise regarding registry requirements of one month and one yr appts and echo. Will likely need phone call for KCCQ. documented in this encounter [facility] 04-01-2024 Telephone encounter Note I called [facility] and she requested me to fax med recs release to [phone] I faxed this morning. Confirmed 04/02 at 5:45p [facility] 04-01-2024 Miscellaneous Notes I called [facility] and she requested me to fax med recs release to [phone] I faxed this morning. I spoke w/ Juana in Dr. Garces's office, asking for echo order to be faxed. I placed Teofilo brennan DNP to sign, order needs faxed to Juana's attention @ [phone]. Time frame dates given to Juana for completion of OV/EKG/echo. KCCQ mailed to pt. ----- Message from JEREMIE Saldaña CNP sent at 01/04/2024 1:51 PM EDT ----- Please call [facility] office and advise regarding registry requirements of one month and one yr appts and echo. Will likely need phone call for KCCQ. documented in this encounter [facility] 04-01-2024 Miscellaneous Notes I called [facility] and she requested me to fax med recs release to [phone] I faxed this morning. Confirmed 04/02 at 5:45p I spoke w/ Juana in Dr. Garces's office, asking for echo order to be faxed. I placed Teofilo brennan DNP to sign, order needs faxed to Juana's attention @ [phone]. Time frame dates given to Juana for completion of OV/EKG/echo. KCCQ mailed to pt. ----- Message from JEREMIE Saldaña CNP sent at 01/04/2024 1:51 PM EDT ----- Please call [facility] office and advise regarding registry requirements of one month and one yr appts and echo. Will likely need phone call for KCCQ. documented in this encounter [facility] 01-10-2024 Note [facility] 01-04-2024 Telephone encounter Note I spoke w/ Juana in Dr. Garces's office, asking for echo order to be faxed. I placed order, Teofilo Hopkins DNP to sign, order needs faxed to Juana's attention @ [phone]. Time frame dates given to Juana for completion of OV/EKG/echo. KCCQ mailed to pt. [facility] 01-04-2024 Telephone encounter Note ----- Message from JEREMIE Saldaña CNP sent at 01/04/2024 1:51 PM EDT ----- Please call [facility] office and advise regarding registry requirements of one month and one yr appts and echo. Will likely need phone call for KCCQ. [facility] 01-04-2024 History of Present illness Narrative Images from the original note were not included. [facility] [address] [facility] [address] Dept: [phone] Dept Visit type: Established : 1940 Reason [...] (allerg to landon/ARB) Plan follow up in [place] Subjective Ms Call is an 83 yr old female with a PMH of permanent AF, HFrEF, HTN, HPL, CKD stage 3b, obesity, GERD, and severe with EF 30%, mean and peak gradients 49/71 mm Hg. She underwent cardiac cath at [place] which showed non obstructive CAD. She underwent [...] wrist complaints. She wishes to follow in [place] as travel is difficult for her Allergies [...] 12/25/2023 Performed by Harjeet Huffman MD at [facility] OR CATARACT EXTRACTION HYSTERECTOMY No family [...] JEREMIE Ruiz CNP documented in this encounter [facility] 12-26-2023 Nurse Note Discharge instructions given to patient and daughter. Patient verbalizes understanding of medication changes and follow up appointments, and activity restrictions. Discharged to home with daughter. [facility] 12-26-2023 Nurse Note Discharge instructions given to patient and daughter. Patient verbalizes understanding of medication changes and follow up appointments, and activity restrictions. Discharged to home with daughter. documented in this encounter [facility] 12-26-2023 Note Attestation signed by Harjeet Huffman [...] discharge. Referral has been made to the [facility] Outpatient Cardiac Rehabilitation Program. Last Labs: Lab Results Component Value Date WBC 11.6 (H) 12/26/2023 HGB 14.0 12/26/2023 HCT 43.0 12/26/2023 MCV 97.9 12/26/2023 PLT 154 10/ (more content not included)... [facility] 12-26-2023 Consult note Associated Order (s): IP CONSULT TO CARDIAC REHAB Received referral and reviewed chart. Phase II Cardiopulmonary Rehab Referral discussed with Brianne Call. Patient prefers cardiopulmonary rehab at [facility]. Given information on program at preferred location. [facility] 12-26-2023 Note Received referral an d reviewed chart. Phase II Cardiopulmonary Rehab Referral discussed with Brianne Call. [facility] Given information on program at preferred location. [facility] 12-26-2023 Consult note Associated Order (s): IP CONSULT TO CARDIAC REHAB Received referral and reviewed chart. Phase II Cardiopulmonary Rehab Referral discussed with Brianne Call. [facility] Given information on program at preferred location. documented in this encounter [facility] 12-26-2023 Note Atrial fibrillation Poor R wave progression, CONSIDER ANTERIOR INFARCT ST and T abnormality Electronically Signed On 12-26-2023 09:21:43 EDT by Austin Carmona [facility] 12-26-2023 Note Atrial fibrillation Poor R wave progression, CONSIDER ANTERIOR INFARCT ST and T abnormality Electronically Signed On 12-26-2023 09:21:43 EDT by Austin Carmona [facility] 12-26-2023 Note IMPRESSION: Atrial fibrillation Poor R wave progression, CONSIDER ANTERIOR INFARCT ST and T abnormality Electronically Signed On 12-26-2023 09:21:43 EDT by Austin Carmona [facility] 12-25-2023 Hospital Discharge instructions Mónica Hopkins APRN - GUEST SERVICE SUPERVISOR - 12/25/2023 12:24 PM EDT - Please call the [facility] with any questions: [phone] -You will have have the following follow [...] unless otherwise specified. documented in this encounter [facility] 12-25-2023 Note Patient: Brianne reynolds Procedure Summary Date: 12/25/23 Room / Location: [facility] Operating Room Anesthesia Start: [...] once all PACU criteria has been met. [facility] 12-25-2023 Note Patient: Brianne reynolds Procedure Summary Date: 12/25/23 Room / Location: [facility] Operating Room Anesthesia Start: [...] opportunity for questions and acknowledgement of understanding. [facility] 12-25-2023 Note Arterial Line: Date/Time: 12/25/2023 10:22 AM An arterial line was placed Procedure performed using ultrasound guidance - Image permanently retained with wire or catheter in vein.in the Procedural for the following indication(s): continuous blood pressure monitoring and blood sampling needed. A (size) (length) (type) catheter was placed, into the Right secured by tape. Staffing Performed: Other Other staff: Harjeet Huffman MD [facility] 12-25-2023 Note Formatting of this n ote [...] The valve was passed through the 14 Ghanaian sapient E sheath into the descending thoracic [...] patient was decannulated transferred stable to recovery. [facility]: 12-25-2023 Note Formatting of this [...] The valve was passed through the 14 Ghanaian sapient E sheath into the descending thoracic [...] patient was decannulated transferred stable to recovery. [employer] Phone: 12-25-2023 Miscellaneous Notes Date of surgery 12/25/2023 Cardiothoracic Surgeon: Tien Cornell MD, [facility] Preoperative diagnosis: Severe, symptomatic aortic valve [...] The valve was passed through the 14 Ghanaian sapient E sheath into the descending thoracic [...] stable to recovery. documented in this encounter [facility] 12-25-2023 Attending History and physical note H&P reviewed. The patient was examined and there are no changes to the H&P. Source Note - Arlene Velez APRN - GUEST SERVICE SUPERVISOR - 12/22/2023 12:39 PM EDT Images from the original note were not included. H+ P copied to chart from (office provider's name Mónica Hopkins APRN) progress note dated 12/12/23 on behalf of (procedural physician's name Dr. Huffman). Expand All Collapse All [facility] [place] [address] [facility] [address] Dept: [phone] Dept Visit type: Established : 1940 Reason [...] mm Hg. She underwent cardiac cath at [place] which showed non obstructive CAD. He kidney [...] 100 mg 100 mg IntraVENous Once Mónica Hopkins APRN - GUEST SERVICE SUPERVISOR sodium chloride 0.9 % bolus 500 mL [...] Independent interpretation of tests: JEREMIE Ruiz CNP [facility] Work Phone: 12-25-2023 History and physical note H&P reviewed. The patient was examined and there are no changes to the H&P. Source Note - JEREMIE Smith CNP - 12/22/2023 12:39 PM EDT Images from the original note were not included. H+ P copied to chart from (office provider's name Mónica Hopkins APRN) progress note dated 12/12/23 on behalf of (procedural physician's name Dr. Huffman). Expand All Collapse All [facility] [place] [address] [facility] [address] Dept: [phone] Dept Visit type: Established : 1940 Reason [...] mm Hg. She underwent cardiac cath at [place] which showed non obstructive CAD. He kidney [...] 100 mg 100 mg IntraVENous Once Mónica Hopkins APRN - GUEST SERVICE SUPERVISOR sodium chloride 0.9 % bolus 500 mL [...] my specialty: Independent interpretation of tests: Mónica Hopkins APRN - GUEST SERVICE SUPERVISOR documented in this encounter [facility] 12-25-2023 Note H&P reviewed. The pa tient was examined and there are no changes to the H&P. [facility] 12-22-2023 History and physical note Images from the original note were not included. H+ P copied to chart from (office provider's name Mónica Hopkins APRN) progress note dated 12/12/23 on behalf of (procedural physician's name Dr. Huffman). Expand All Collapse All [facility] [address] [facility] [address] Dept: [phone] Dept Visit type: Established : 1940 Reason [...] mm Hg. She underwent cardiac cath at [place] which showed non obstructive CAD. He kidney [...] 100 mg 100 mg IntraVENous Once Mónica Hpokins APRN - GUEST SERVICE SUPERVISOR sodium chloride 0.9 % bolus 500 mL [...] my specialty: Independent interpretation of tests: Mónica Hopkins, JEREMIE - GUEST SERVICE SUPERVISOR Associated attestation - Harjeet Huffman MD - [...] We will proceed with the planned procedure. [facility] 12-22-2023 History and physical note Images from the original note were not included. H+ P copied to chart from (office provider's name Mónica Hopkins APRN) progress note dated 12/12/23 on behalf of (procedural physician's name Dr. Huffman). Expand All Collapse All [facility] [place] [address] [facility] [address] Dept: [phone] Dept Visit type: Established : 1940 Reason [...] mm Hg. She underwent cardiac cath at [place] which showed non obstructive CAD. He kidney [...] Independent interpretation of tests: JEREMIE Ruiz CNP Associated attestation - Harjeet Huffman MD - 12/25/2023 9:26 AM EDT I, Dr. Huffman, saw and evaluated the patient. I personally obtained the fitzpatrick and critical portions of the history and physical exam. I reviewed the chart and discussed the patient with the Nurse Practitioner. I agree with the Nurse Practitioner's medical decision making. I spoke with rBianne Call this morning. she tells me that nothing has changed clinically since our last office visit. We will proceed with the planned procedure. documented in this encounter [facility] 12-22-2023 Note Attestation signed by Harjeet Huffman [...] to chart from (office provider's name Mónica Hopkins APRN) progress note dated 12/12/23 on behalf of (procedural physician's name Dr. Huffman). Expand All Collapse All [facility] [place] [address] [facility] [address] Dept: [phone] Dept Visit type: Established : 1940 Reason [...] days prior and begin ASA. Brianne Russell Mandeepgautam participated in a shared decision making process [...] mm Hg. She underwent cardiac cath at [place] which showed non obstructive CAD. He kidney [...] spironolactone (Aldactone) 25 (more content not included)... [facility] 12-22-2023 Note Attestation signed by Harjeet Huffman [...] to chart from (office provider's name Mónica Hopkins APRN) progress note dated 12/12/23 on behalf of (procedural physician's name Dr. Huffman). Expand All Collapse [facility] [address] [facility] [address] Dept: [phone] Dept Visit type: Established : 1940 Reason [...] mm Hg. She underwent cardiac cath at [place] which showed non obstructive CAD. He kidney [...] spironolactone (Aldactone) 25 (more content not included)... [facility] 12-21-2023 Note Pre TAVR phone call placed. Reviewed, procedure, instructions and meds. Confirmed Eliquis, and Dye Allergy Prep med instructions. Pt verbalizes understanding. Pt knows to call [phone] with any concerns. Teofilo Velez CNP notified for prep for procedure orders. Diagnosis: Procedure being done: TF TAVR Date/time of procedure: 12/25/2023 @ 9:15 am Surgeon: Dr. Huffman 2nd surgeon: Dr. Olsen Admission type: To be admitted Anesthesia: MAC Completed: H&P/BNP/CBC/CMP/CXR/EKG Date completed: [facility] 12/19/23, 12/12/23 Additional orders Dye Allergy Prep meds [facility] 12-15-2023 Note Patient: Brianne reynolds Procedure Information Date/Time: 12/25/23 0915 Procedures: TRANSCATHETER AORTIC VALVE REPLACEMENT, TRANSTHORACIC ECHOCARDIOGRAM TRANSCATHETER AORTIC VALVE REPLACEMENT, TRANSTHORACIC ECHOCARDIOGRAM (Chest) Location: [facility] Operating Room Surgeons: Harjeet Huffman MD; Juan Reed DO Relevant Problems Cardio (+) Chronic atrial [...] Records in media Carolina Waldron APRN - SIM JOB Screening Labs: Lab Results Component Value [...] 71 mmHg Equipment Requests: Additional Equipment Requests [facility] 12-12-2023 History of Present illness Narrative Pts symptoms of the reaction have all gone away. Pt states she feels back to normal. Pt came back from CT and pts face is red and she states she is starting to progressively get itchy. Mónica Hopkins STEM TEACHER is here at this time and order medications. documented in this encounter [facility] 12-12-2023 History of Present illness Narrative Images from the original note were not included. [facility] [place] [address] [facility] [address] Dept: [phone] Dept Visit type: Established : 1940 Reason [...] mm Hg. She underwent cardiac cath at [place] which showed non obstructive CAD. He kidney [...] 100 mg 100 mg IntraVENous Once Mónica Hopkins APRN - GUEST SERVICE SUPERVISOR sodium chloride 0.9 % bolus 500 mL [...] JEREMIE Ruiz CNP documented in this encounter [facility] 12-12-2023 Note Pt came back from CT and pts face is red and she states she is starting to progressively get itchy. Mónica Hopkins STEM TEACHER is here at this time and order medications. [facility] 12-06-2023 Note Message reviewed. Re commend CTA with IV hydration. Can get pre procedure labs at time of CTA. [facility] 11-21-2023 History of Present illness Narrative Images from the original note were not included. [facility] [address] [facility] [address] Dept: [phone] Dept Loc: [phone] Today's Visit Location: TAVR (transcather aortic valve replacement) Clinic [facility] Cardiology [address] [place] [address] Visit type: Senior Health Assessment at TAVR [...] agree with cardiology plan as discussed with consultant teacher Dr. Huffman and CTS Dr. Reed on [...] Patient has already named her Power of Home Planning Consultant Salesperson for Healthcare and Finances (Both are her daughter Shama López) I recommended patient follow-up with [facility] (phone: [phone] fax: [phone]) as needed for memory testing. 4. Drug-induced [...] Mean Gradient of 49. Dr. Garces in [place]. No aortic valve area mentioned. A fib [...] points)0 - patient rents room from [facility]. Rajiv (son) lives w pt Reduce [...] Reviewed progress notes completed by cardiology staff (ROS) located in cardiology note performed on same [...] couldn't learn how to use the air frandrew - her sons helps her with that Housework [x] [] [] Medications [x] [] [] Has a pill organizing box at home. Uses it routinely. Fills meds on Saturdays for the whole week. No one looks over them. She doesn't miss her meds. Finances [x] [] [] Daughter Shama López (financial Power of Home Planning Consultant Salesperson) is on bank acct but patient manages [...] phrases are mis-transcribed.) documented in this encounter [facility] 11-21-2023 Instructions Thaddeus Mckeon MD - 11/21/2023 3:30 PM EDT GERIATRICS DISCHARGE INSTRUCTIONS: Follow-up with [facility] (phone: [phone] fax: [phone]) as needed for memory testing. Please BEGIN [...] risk of falls. documented in this encounter [facility] 11-21-2023 Evaluation + Plan note Associated Problem(s): Drug-induced bradycardia HR 58 bpm today but no syncope, presyncope, falls Patient asymptomatic today Patient taking lopressor 12.5mg po bid - I encouraged patient to discuss with her cardiologists/PCP (primary care provider) regarding change of meds given her advanced age and increased risk of falls [facility] 11-21-2023 Miscellaneous Notes Associated Problem(s): Drug-induced bradycardia [...] Patient has already named her Power of Home Planning Consultant Salesperson for Healthcare and Finances (Both are her daughter Shama López) I recommended patient follow-up with [facility] (phone: [phone] fax: [phone]) as needed for memory testing. Associated Problem(s): [...] agree with cardiology plan as discussed with consultant teacher Dr. Huffman and CTS Dr. Reed on same date regarding next steps for further workup/treatment of cardiac disease which likely includes heart cath +/- TAVR. On this date of evaluation, the patient has sufficient understanding of procedure(s) to consent to the procedure(s) being discussed and has adequate social support(s). documented in this encounter [facility] 11-21-2023 History of Present illness Narrative Images from the original note were not included. [facility] Medical Group: Cardiothoracic Surgery Multidisciplinary Heart Valve Clinic Date: 11/21/23 Patient:Brianne Russell Call 1940 83 y.o. female [id number] Subjective: HPI: Brianne Call 83 y.o. referred [...] the near future. Given her proximity to [facility], she would prefer LHC performed there. We [...] Electronically signed by Juan Reed DO, MS, FACOS Patient Care Team: Alvarado Hull MD as [...] other diagnostic images. documented in this encounter [facility] 11-21-2023 Evaluation + Plan note Associated Problem(s): Short-term memory loss Chronic Patient with occasional word-finding difficulties I suspect either normal memory loss for aging or possibly MCI (Mild Cognitive Impairment) Patient has already named her Power of Home Planning Consultant Salesperson for Healthcare and Finances (Both are her daughter Shama López) I recommended patient follow-up with [facility] (phone: [phone] fax: [phone]) as needed for memory testing. [facility] 11-21-2023 Evaluation + Plan note Associated Problem(s): Chronic atrial fibrillation (HCC) Chronic; Stable Asymptomatic May be nearing renal (kidney) dysfunction requiring reduced dose of eliquis (given Cr nearly 1.5 in past and patient's age >80 yo). May need eliquis 2.5mg po bid instead of 5mg po bid in future pending renal (kidney) function T [employer] 11-21-2023 Evaluation + Plan note Associated Problem(s): [...] missing or doubling up on meds [facility] 11-21-2023 Evaluation + Plan note Associated Problem(s): Nonrheumatic aortic valve stenosis S/p AV replacement by Dr. Nagy in 201209/22/23 Transthoracic Echo (TTE) noted "severe aortic stenosis". Mean Gradient of 49. Dr. Garces in [place]. No aortic valve area mentioned. I agree with cardiology plan as discussed with consultant teacher Dr. Huffman and CTS Dr. Reed on same date regarding next steps for further workup/treatment of cardiac disease which likely includes heart cath +/- TAVR. On this date of evaluation, the patient has sufficient understanding of procedure(s) to consent to the procedure(s) being discussed and has adequate social support(s). [facility] [employer] 11-21-2023 History of Present illness Narrative Images from the original note were not included. [facility] [address] [facility] [address] Dept: [phone] Dept Visit type: New : 1940 Reason for Visit: Cardiac Valve Problem Assessment and Plan 1. LV dysfunction 2. Stenosis of prosthetic aortic valve, initial encounter - ECG 12 lead - CLINIC PERFORMED This is a very pleasant 83 y.o. 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 she is clearly in need of aortic valve replacement, likely [id number] TAVR. Will need a diagnostic cath first, [...] Harjeet Huffman MD documented in this encounter [facility] 11-16-2023 Note Received fax referra l to Heart Valve Clinic from Dr. Garces @ [facility]. I spoke w/ Juana, echo images to be pushed to PACS, she will fax lab work. I spoke w/ pt, appt scheduled. Chart made. [facility] Evaluation note No assessment inform ation available [facility] Work Phone: Evaluation note Diagnosis Nonrheumatic aortic valve stenosis- Primary Chronic atrial fibrillation (HCC) Atrial fibrillation Short-term memory loss Memory loss Drug-induced bradycardia Polypharmacy Issue of repeat prescriptions [facility] Diagnosis Stenosis of prosthetic aortic valve, initial encounter- Primary [facility] LV dysfunction- Primary Left heart failure Stenosis of prosthetic aortic valve, initial encounter [facility] Diagnosis Nonrheumatic aortic valve stenosis- Primary Chronic atrial fibrillation (HCC)- Primary Atrial fibrillation Nonrheumatic aortic valve stenosis Adverse effect of contrast media, initial encounter Nonrheumatic aortic valve stenosis [facility] Diagnosis Nonrheumatic aortic valve stenosis- Primary Renal failure, unspecified chronicity Stenosis of prosthetic aortic valve, initial encounter Nonrheumatic aortic valve stenosis [facility] Diagnosis Nonrheumatic aortic valve stenosis- Primary Nonrheumatic aortic valve stenosis Nonrheumatic aortic valve stenosis [facility] Diagnosis Nonrheumatic aortic valve stenosis- Primary Severe aortic stenosis- Primary Aortic valve disorders Nonrheumatic aortic valve stenosis [facility] Diagnosis Severe aortic stenosis- Primary Aortic valve disorders [facility] Diagnosis Nonrheumatic aortic valve stenosis- Primary Severe aortic stenosis Aortic valve disorders Severe aortic stenosis Aortic valve disorders Nonrheumatic aortic valve stenosis [facility] Diagnosis Chronic atrial fibrillation (HCC)- Primary Atrial fibrillation Severe aortic stenosis Aortic valve disorders Stage 3a chronic kidney disease (HCC) Left heart failure (HCC) Left heart failure [facility] Diagnosis Nonrheumatic aortic valve stenosis- Primary Chronic atrial fibrillation (HCC) Atrial fibrillation Short-term memory loss Memory loss Drug-induced bradycardia Polypharmacy Issue of repeat prescriptions S/P TAVR (transcatheter aortic valve replacement) [facility] Diagnosis Nonrheumatic aortic valve stenosis- Primary Chronic atrial fibrillation (HCC) Atrial fibrillation Short-term memory loss Memory loss Drug-induced bradycardia Polypharmacy Issue of repeat prescriptions S/P TAVR (transcatheter aortic valve replacement) documented in this encounter [facility] for referral (narrative)No reason for referral [facility] Work Phone: Family History No Family [...] Yes December 26 8 12:21pm Power of Home Planning Consultant Salesperson Yes December 26 2 018 12:21pm Date Activated Date Inactivated Comments 12/25/2023 [...] stenosis Procedures CTA Angiogram TAVR Arlene Velez, FUSE MAKER - GUEST SERVICE SUPERVISOR [address] [place] [address] Referral ID Status Reason Start Date Expiration Date Visits Re quested Visits Authorized [id number] Closed 12/07/2023 02/05/2024 1 1 Summary Purpose Chief Complaint and Reason for Visit Chief Complaint Admit Date MONTHLY EXAM February 27, 2024 3:12pm LABWORK March 01, 2024 5:00am RESIDENTIAL LAB WORK March 08 4:00am LABWORK March 15, 2024 2:14pm NEW CONCERN March 15, 2024 4:36pm MONTHLY EXAM April 02, 2024 1 1:01pm RESIDENTIAL LAB WORK April 09, 2024 5:00am RESIDENTIAL LAB WORK April 22, 2024 5:00am LABWORK May 07, 2024 5:00am MONTHLY EXAM May 16, 2024 11:05am RESIDENTIAL LAB WORK June 04, 2024 5 :00am Chief Complaint Admit Date MONTHLY EXAM April 02, 2024 1 1:01pm RESIDENTIAL LAB WORK April 09, 2024 5:00am RESIDENTIAL LAB WORK April 22, 2024 5:00am LABWORK May 07, 2024 5:00am MONTHLY EXAM May 16, 2024 11:05am MONTHLY EXAM May 28, 2024 4:2 0pm RESIDENTIAL LAB WORK June 04, 2024 5 :00am RESIDENTIAL LAB WORK June 18, 2024 5: 00am RESIDENTIAL LAB WORK July 02, 2024 5 :00am Chief Complaint Admit Date RESIDENTIAL LAB WORK April 22, 2024 5:00am LABWORK May 07, 2024 5:00am MONTHLY EXAM May 16, 2024 11:05am MONTHLY EXAM May 28, 2024 4:2 0pm RESIDENTIAL LAB WORK June 04, 2024 5 :00am RESIDENTIAL LAB WORK June 18, 2024 5: 00am RESIDENTIAL LAB WORK July 02, 2024 5 :00am LABWORK July 30, 2024 5:00a m Chief Complaint Admit Date LABWORK May 07, 2024 5:00am MONTHLY EXAM May 16, 2024 11:05am MONTHLY EXAM May 28, 2024 4:2 0pm RESIDENTIAL LAB WORK June 04, 2024 5 :00am RESIDENTIAL LAB WORK June 18, 2024 5: 00am RESIDENTIAL LAB WORK July 02, 2024 5 :00am RESIDENTIAL LAB WORK July 15, 2024 4 :00am LABWORK July 30, 2024 5:00a m Chief Complaint Admit Date RESIDENTIAL LAB WORK June 18, 2024 5: 00am RESIDENTIAL LAB WORK July 02, 2024 5 :00am RESIDENTIAL LAB WORK July 15, 2024 4 :00am MONTHLY EXAM July 23, 2024 3:15pm LABWORK July 30, 2024 5:00a m RESIDENTIAL LAB WORK August 14, 2024 5:0 0am RESIDENTIAL LAB WORK August 27, 2024 5: 00am Chief Complaint Admit Date RESIDENTIAL LAB WORK June 18, 2024 5: 00am RESIDENTIAL LAB WORK July 02, 2024 5 :00am RESIDENTIAL LAB WORK July 15, 2024 4 :00am MONTHLY EXAM July 23, 2024 3:15pm LABWORK July 30, 2024 5:00a m RESIDENTIAL LAB WORK August 14, 2024 5:0 0am NEW CONCERN August 20, 2024 3:45p m RESIDENTIAL LAB WORK August 27, 2024 5: 00am Chief Complaint Admit Date RESIDENTIAL LAB WORK June 18, 2024 5: 00am RESIDENTIAL LAB WORK July 02, 2024 5 :00am RESIDENTIAL LAB WORK July 15, 2024 4 :00am MONTHLY EXAM July 23, 2024 3:15pm LABWORK July 30, 2024 5:00a m RESIDENTIAL LAB WORK August 14, 2024 5:0 0am NEW CONCERN August 20, 2024 3:45p m RESIDENTIAL LAB WORK August 27, 2024 5: 00am [...] May 16, 2024 End: May 16, 2024 Eriberto VILLALOBOS PA Attending Provider Active St art: May 16, [...] Provi guillermo, Attending Provider, Referring Provider Active Supervisor Seaming Relationship Specialty Start Date End Date Alvarado Hull MD [address] [place] [address] PCP - General Geriatric Medicine 11/21/23 Supervisor Seaming Relationship Specialty Start Date End Date Alvarado Hull MD [address] [place] [address] PCP - General Geriatric Medicine 11/21/23 Supervisor Seaming Relationship Specialty Start Date End Date Alvarado Hull MD [address] [place] [address] PCP - General Geriatric Medicine 11/21/23 Supervisor Seaming Relationship Specialty Start Date End Date Alvarado Hull MD [address] [place] [address] PCP - General Geriatric Medicine 11/21/23 Supervisor Seaming Relationship Specialty Start Date End Date Alvarado Hull MD [address] [place] [address] PCP - General Geriatric Medicine 11/21/23 Supervisor Seaming Relationship Specialty Start Date End Date Alvarado Hull MD [address] [place] [address] PCP - General Geriatric Medicine 11/21/23 Supervisor Seaming Relationship Specialty Start Date End Date Alvarado Hull MD [address] [place] [address] PCP - General Geriatric Medicine 11/21/23 Supervisor Seaming Relationship Specialty Start Date End Date Alvarado Hull MD [address] [place] [address] PCP - General Geriatric Medicine 11/21/23 Supervisor Seaming Relationship Specialty Start Date End Date Alvarado Hull MD [address] [place] [address] PCP - General Geriatric Medicine 11/21/23 Supervisor Seaming Relationship Specialty Start Date End Date Alvarado Hull MD [address] [place] [address] PCP - General Geriatric Medicine 11/21/23 Supervisor Seaming Relationship Specialty Start Date End Date Alvarado Hull MD [address] [place] [address] PCP - General Geriatric Medicine 11/21/23 Team Status: Inactive Member Role Status Dates Dr. Scott Hull MD Primary Care Provider Active Start: February 27, 2024 End: February 27, 2024 Sara Irizarry NP STEM TEACHER-C Attending Provider Active Start: February 27, 2024 [...] End: March 15, 2024 Sara Irizarry NP, NP-C Attending Provider Active Start: March 15, 2024 [...] Care Provider Active Start: August 27, 2024 oJe PORTILLO MD Attending Provider Active Start: August 27, 2024 Team Status: Active Member Role/Relationship Status Dates Dr. Scott Hull MD Primary Care Provider Active Start: September 24, 2024 Joe PORTILLO MD Attending Provider Active Start: September 24, 2024 Team Status: Inactive Member Role/Relationship Status Dates Dr. Scott Hull MD Primary Care Provider Active Start: August 20, 2024 End: August 20, 2024 Sara Irizarry NP, STEM TEACHER-C Attending Provider Active Start: August 20, 2024 [...] 2024 End: September 02, 2024 Sara Irizarry NP, STEM TEACHER-C Attending Provider Active Start: September 02, 2024 [...] REQUEST INFUSION TREATMENT Harjeet Huffman MD [address] [place] [address] [address] [place] [address] Referral ID Status Reason Start Date Expiration Date Visits Re quested Visits Authorized [id number] Closed 12/12/2023 12/06/2024 1 1 Specialty Diagnoses / Procedures [facility] Referred To Contact Radiology Diagnoses Nonrheumatic aortic valve stenosis Procedures CTA Angiogram TAVR Arlene Velez, JEREMIE - SIM [address] [place] [address] Referral ID Status Reason Start Date Expiration Date Visits Re quested Visits Authorized [id number] Closed 12/07/2023 02/05/2024 1 1 Specialty Diagnoses / Procedures [facility] Referred To Contact Diagnoses Nonrheumatic aortic valve stenosis Procedures TRANSCATHETER AORTIC VALVE REPLACEMENT, TRANSTHORACIC ECHOCARDIOGRAM TRANSCATHETER AORTIC VALVE REPLACEMENT, TRANSTHORACIC ECHOCARDIOGRAM Harjeet Huffman MD [address] [address] [address] [place] [address] Referral ID Status Reason Start Date Expiration Date Visits Re quested Visits Authorized [id number] 1 1 Reason Comments Cardiac Valve Problem One week post TAVR Reason Onset Date Comments Orders 01/04/2024 Scheduled Active and Recently Administ ered Medications (unrecognized section and content) Medication Order 12/24/2023 12/25/2023 12/26/2023 aspirin EC tablet 81 mg 81 mg, Oral, Daily, First dose on Mon12/26/23 at 0900, Do not crush, chew, or split. 930 (Given - Provid er: Leticia Arshad RN) ceFAZolin in dextrose 4% (Ancef) IVPB 2,000 mg (COMPLETED) 2,000 mg, IntraVENous, Administer over 30 Minutes, Once, On Mon12/25/23 at 0730, For 1 dose, Preprocedure, Administer within 1 hour prior to incision. Recommend to repeat in 3-4 hours after initial dose if still intra-op. premix bag, Suspected Indication (Select all that apply): Surgical Prophylaxis 958 (Given - Provider: Edgar Warner APRN - MACHINE SIZER) dapagliflozin (Farxiga) tablet 10 mg 10 mg, Oral, Daily, First dose on Mon12/26/23 at 0900, Indications: Chronic Renal Disease 929 (Given - Provid er: Leticia Arshad RN) diphenhydrAMINE (BENADryl) tablet/capsule 50 mg (COMPLETED) 50 mg, Oral, Once, On Mon12/25/23 at 0730, For 1 dose, Preprocedure 0800 (Given - Provider: Jelena Doan RN) famotidine (Pepcid) tablet 40 mg (COMPLETED) 40 mg, Oral, Once, On Mon12/25/23 at 0730, For 1 dose, Preprocedure, One hour prior to procedure 0800 (Given - Provider: Jelena Doan RN) febuxostat (Uloric) tablet 40 mg 40 mg, Oral, Daily, First dose on Mon12/25/23 at 1130 1130 (Not Given - Provider: Mirella Kimball RN - Reason: Medication not available) 930 (Given - Provider: Leticia Arshad RN) furosemide (Lasix) injection 40 mg (COMPLETED) 40 mg, IntraVENous, Once, On Mon12/26/23 at 0845, For 1 dose 929 (Given - Provid er: Leticia Arshad RN) [...] section and content) DATE CREATED AUTHOR 04/04/2024 [facility] DATE CREATED AUTHOR AUTHOR'S ORGANIZ ATION 10/08/2024 [facility] FOR RECORDS PERTAINING TO PATIENTS WHO [...] BE BASED ON THE PRIMARY CLINICAL RECORDS. [facility]. provides no warranty or guarantee of the accuracy or completeness of information in this document.
[2024-10-09 08:35] LABS: Vitamin D,25 Hydroxy 58.3 ng/mL (30-100)
== END ==
LOC: OLS.WHLEAS 05:00
PROVIDERS: PCP Family Medicine Geriatric Medicine; Visit Provider Internal Medicine
DX: E55.9 Vitamin D deficiency, unspecified (principal)
CPT/HCPCS: 36415; 82306

== ENCOUNTER → 2024-10-22 | Outpatient (REF) | payer MEDICARE, MEDICAID, SELFPAY ==
[2024-10-22 09:40] LABS: Hematocrit 40.3 % (37-47); Hemoglobin 13.1 g/dL (12.0-15.0); Immature Granulocytes Count 0.040 X10^3/uL (0.0-0.0); Mean Corp Hgb Conc 32.5 g/dL (32-36); Mean Corpuscular Volume 98.1 fL (81-99); Mean Platelet Vol. 12.5 fl (6.2-12.0); NRBC Flagged by Analyzer 0 % (0-5); Platelet Count 222 K/mm3 (150-450); RBC Distribution Width CV 13.5 % (11.6-14.6); RBC Distribution Width SD 49.2 fl (35.1-43.9); Red Blood Count 4.11 M/mm3 (4.2-5.4); White Blood Count 6.5 K/mm3 (4.4-11.0)
[2024-10-22 09:56] LABS: Anion Gap 12 (5-15); BUN 32 mg/dL (4-19); BUN/Creat Ratio 17.5 RATIO (10-20); Calcium,Total 9.2 mg/dL (7.6-11.0); Carbon Dioxide 26.4 mmol/L (21.0-32.0); Chloride 99 mmol/L (98-108); Glucose 113 mg/dL (70-99); Potassium 4.0 mmol/L (3.3-5.1)
== END ==
LOC: OLS.WHLEAS 05:00
PROVIDERS: PCP Family Medicine Geriatric Medicine; Visit Provider Internal Medicine
DX: R48.8 Other symbolic dysfunctions (principal); I63.542 Cerebral infarction due to unspecified occlusion or stenosis of left cerebellar artery; I69.320 Aphasia following cerebral infarction; I69.351 Hemiplegia and hemiparesis following cerebral infarction affecting right dominant side
CPT/HCPCS: 36415; 80048; 85025

== ENCOUNTER → 2024-11-19 05:00 | Outpatient (REF) | payer MEDICARE, SELFPAY ==
[2024-11-19 08:34] LABS: Hematocrit 40.8 % (37-47); Hemoglobin 13.4 g/dL (12.0-15.0); Immature Granulocytes Count 0.030 X10^3/uL (0.0-0.0); Mean Corp Hgb Conc 32.8 g/dL (32-36); Mean Corpuscular Volume 96.5 fL (81-99); Mean Platelet Vol. 11.9 fl (6.2-12.0); NRBC Flagged by Analyzer 0 % (0-5); Platelet Count 230 K/mm3 (150-450); RBC Distribution Width CV 13.6 % (11.6-14.6); RBC Distribution Width SD 48.4 fl (35.1-43.9); Red Blood Count 4.23 M/mm3 (4.2-5.4); White Blood Count 6.7 K/mm3 (4.4-11.0)
[2024-11-19 08:56] LABS: Anion Gap 11 (5-15); BUN 25 mg/dL (4-19); BUN/Creat Ratio 14.0 RATIO (10-20); Calcium,Total 9.2 mg/dL (7.6-11.0); Carbon Dioxide 25.7 mmol/L (21.0-32.0); Chloride 101 mmol/L (98-108); Glucose 99 mg/dL (70-99); Potassium 4.4 mmol/L (3.3-5.1)
== END ==
LOC: OLS.WHLEAS 05:00
PROVIDERS: PCP Family Medicine Geriatric Medicine; Visit Provider Internal Medicine
DX: R48.8 Other symbolic dysfunctions (principal); I63.542 Cerebral infarction due to unspecified occlusion or stenosis of left cerebellar artery; I69.351 Hemiplegia and hemiparesis following cerebral infarction affecting right dominant side
CPT/HCPCS: 36415; 80048; 85025

== ENCOUNTER → 2024-12-04 05:30 | Outpatient (REF) | payer MEDICARE, SELFPAY ==
[2024-12-04 09:10] LABS: Vitamin D,25 Hydroxy 68.9 ng/mL (30-100)
== END ==
LOC: OLS.WHLEAS 05:30
PROVIDERS: PCP Family Medicine Geriatric Medicine; Visit Provider Internal Medicine
DX: E55.9 Vitamin D deficiency, unspecified (principal)
CPT/HCPCS: 36415; 82306

== ENCOUNTER → 2024-12-17 | Outpatient (REF) | payer MEDICARE, SELFPAY ==
--- OUTSIDE RECORDS SUMMARY | 2024-01-04 11:33 | XMS RPT_ITS ---
Author Name Auto Generated Organization OHIP Care Team Providers Care Vending Machine Filler Name Role Phone HARJEET HUFFMAN Attending Unavailable HARJEET HUFFMAN Admitting Unavailable ELLIOTT, LUCINDA-CHI Primary Care Unavailable ELLIOTT, LUCINDA-CHI Primary Care Unavailable LINDA VELEZ Referring Unavailable LINDA VELEZ Attending Unavailable JESSICA DAVID Attending Unavailable ELLIOTT, LUCINDA-CHI Primary Care Unavailable PROBLEMS DATE TYPE CONDITION / CODE ATTENDING STATUS [facility] 01/03/2024 Admitting Diagnosis Left ventricular failure, unspecified (HCC) / I50.1(ICD-10) JESSICA DAVID Active [facility] 01/03/2024 Admitting Diagnosis Chronic kidney disease, stage 3a (HCC) / N18.31(ICD-10) JESSICA DAVID Active [facility] 11/21/2023 Admitting Diagnosis Chronic atrial fibrillation, unspecified (HCC) / I48.20(ICD-10) JESSICA DAVID Active [facility] 12/25/2023 Admitting Diagnosis Nonrheumatic aortic (valve) stenosis / I35.0(ICD-10) HARJEET HUFFMAN Active [facility] PROCEDURES No Procedure Records Found RESULTS 36 Observed: 04/03/2024 11:30 AM Status: COMPLETED Source: [facility] Records received and scanned under Media 36 Observed: 04/01/2024 10:30 AM Status: COMPLETED Source: [facility] I called [place] and she req uested me to fax med recs release to [phone] I faxed this morning. Confirmed 04/02 at 5:45p 36 Observed: 03/15/2024 11:04 AM Status: COMPLETED Source: [facility] Chart reviewed, patient comp leted 30 day follow-up in [place]. Cancelled echo order 36 Observed: 03/15/2024 9:44 AM Status: COMPLETED Source: [facility] Patient prefers care in [place] [address] 36 Observed: 03/15/2024 9:31 AM Status: COMPLETED Source: [facility] We have been unable to reach your patient to schedule their testing. Test Name: echo 1st Attempt: 03/14/2024 left voicemail 2nd Attempt: 03/15/2024 left voicemail 36 Observed: 01/04/2024 4:09 PM Status: COMPLETED Source: [facility] I spoke w/ Juana in Dr. Bhavik ayala's office, asking for echo order to be faxed. I placed anu, Teofilo David DNP to sign, order needs faxed to Juana's attention @ [phone]. Time frame dates given to Juana for completion of OV/EKG/echo. KCCQ mailed to pt. 36 Observed: 01/04/2024 4:06 PM Status: COMPLETED Source: [facility] ----- Message from JEREMIE Saldaña CNP sent at 01/04/2024 1:51 PM EDT ----- Please call [facility] office and advise regarding registry requirements of one month and one yr appts and echo. Will likely need phone call for KCCQ. PROGRESS NOTE Observed: 01/04/2024 12:00 PM Status: COMPLETED Source: [facility] [place] [address] [facility] [address] Dept: [phone] Dept Visit type: Established : 1940 Reason for Visit: Cardiac Valve Problem (One week post TAVR) Assessment and Plan 1. Chronic atrial fibrillation (HCC). HR stable. Continue Apixaban 2. Severe aortic stenosis. S/p tAVR. Continue Eliquis. Will contact [facility] regarding follow up and registry requirements. SBE prophylaxis. Plan echo in one month 3. Stage 3a chronic kidney disease (HCC). Renal function remains stable post procedure. Advised that kidney function should be followed mcfp. GFR 27--> 46 4. Left heart failure (HCC). Improved after TAVR, EF 30%--> 50 %, continue furosemide, Aldactone, Farxiga, metoprolol (allerg to varun/ARB) Plan follow up in [facility] Subjective Ms Call is an 83 yr old female with a PMH of permanent AF, HFrEF, HTN, HPL, CKD stage 3b, obesity, GERD, and severe with EF 30%, mean and peak gradients 49/71 mm Hg. She underwent cardiac cath at [facility] which showed non obstructive CAD. She underwent femoral TAVR with 23 mm Soumya S3 valve on 12/25/2023. IV Lasix was given prior to discharge secondary to ongoing dyspnea and volume overload. POD 1 echo showed EF 50%, aortic valve mean gradient 21 mm Hg, 1 + MR and TR. She is here today for one week follow up appt. She feels much better since hospital discharge. Dyspnea improved, no chest pain. No groin or wrist complaints. She wishes to follow in [place] as travel is difficult for her Allergies Allergen Reactions Varun Inhibitors Other Iodinated Contrast Media Hives Lisinopril Cough Sacubitril Cough Valsartan Cough Outpatient Medications Prior to Visit Medication Sig Dispense Refill apixaban (Eliquis) 5 MG tablet Take 1 tablet (5 mg) by mouth 2 times daily. Resume 10/8 evening dose Farxiga 10 MG tablet Take 10 mg by mouth daily. febuxostat (Uloric) 40 MG tablet Take 40 mg by mouth daily. furosemide (Lasix) 40 MG tablet Take 40 mg by mouth daily. metoprolol tartrate (Lopressor) 25 MG tablet Take 12.5 mg by mouth 2 times daily. pantoprazole (ProtoNix) 40 MG EC tablet Take 40 mg by mouth every morning (before breakfast). Do not crush, chew, or split. spironolactone (Aldactone) 25 MG tablet Take 25 mg by mouth daily. furosemide (Lasix) injection 40 mg No facility-administered medications prior to visit. Past Medical History: Diagnosis Date Aortic stenosis Atrial fibrillation (HCC) Cataracts, bilateral CKD (chronic kidney disease) Congenital heart disease GERD (gastroesophageal reflux disease) Gout Heart failure with reduced ejection fraction (HCC) History of skin cancer Hyperlipidemia Hypertension Hypokalemia LVH (left ventricular hypertrophy) Morbid obesity (HCC) Osteoarthritis Vitamin D deficiency Social History Tobacco Use Smoking status: Never Smokeless tobacco: Never Substance Use Topics Alcohol use: Never Past Surgical History: Procedure Laterality Date APPENDECTOMY CARDIAC CATHETERIZATION N/A 12/25/2023 Performed by Harjeet Huffman MD at [facility] OR CATARACT EXTRACTION HYSTERECTOMY No family history on file. Objective There were no vitals filed for this visit. Physical Exam Constitutional: Appearance: Normal appearance. She is obese. HENT: Head: Normocephalic and atraumatic. Nose: Nose normal. Eyes: Conjunctiva/sclera: Conjunctivae normal. Pupils: Pupils are equal, round, and reactive to light. Cardiovascular: Rate and Rhythm: Normal rate and regular rhythm. Pulmonary: Effort: Pulmonary effort is normal. Breath sounds: Normal breath sounds. Abdominal: General: Bowel sounds are normal. Palpations: Abdomen is soft. Musculoskeletal: General: Normal range of motion. Cervical back: Normal range of motion and neck supple. Skin: General: Skin is warm and dry. Comments: Right wrist and left groin soft without bleeding or hematoma Neurological: General: No focal deficit present. Mental Status: She is alert and oriented to person, place, and time. Psychiatric: Mood and Affect: Mood normal. Thought Content: Thought content normal. Data Reviewed and Summarized EF BP Date Value Ref Range Status 12/26/2023 36 (A) 55 - 100 % Final Review of tests/labs done/ordered within my specialty: EKG in office: atrial fibrillation, incomplete LBBB Review of tests/labs done/ordered outside my specialty: Independent interpretation of tests: Jessica David APRN - TECHNICAL ASSOC OFFICE VISIT Observed: 01/04/2024 12:00 PM Status: COMPLETED Source: [facility] [employer] [facility] [id number] Brianne Call [birth year] F Date Provider Department Center 01/04/2024 [id number] DAVID [facility] [address] No family history on file Level of Service:67147 [facility] OFFICE/OUTPATIENT ESTABLISHED MOD MDM 30 MIN Reason for Visit and Comments: Cardiac Valve Problem [1334] - One week post TAVR ECG 12-LEAD Observed: 12/26/2023 4:26 PM Status: F Source: [facility] [employer] [facility] IMPRESSION: Atrial fibrillation with slow ventricular rate Repol abnrm suggests ischemia, diffuse leads Electronically Signed On 12-26-2023 16:26:55 EDT by Austin Carmona NURSING NOTE Observed: 12/26/2023 1:33 PM Status: COMPLETED Source: [facility] Discharge instructions given to patient and daughter. Patient verbalizes understanding of medication changes and follow up appointments, and activity restrictions. Discharged to home with daughter. TRANSTHORACIC ECHOCARDIOGRAM (TTE) COMPLETE W/ CONTRAST Observed: 12/26/2023 10:39 AM Status: F Source: [facility] [employer] [facility] This is a summary report. Th e complete report is available in the patient's medical record. If you cannot access the medical record, please contact the sending organization for a detailed fax or copy. ? Left?Ventricle: Left ventricle size is normal. Normal wall thickness. Normal left ventricular systolic function. The EF by visual approximation is 50%. Normal wall motion. ? Right?Ventricle: Right ventricle is mildly dilated. Low normal systolic function. ? Aortic?Valve: Lucia Soumya 3 Ultra bioprosthetic aortic valve with a size of 23 mm. AV mean gradient is 21 mmHg. No regurgitation. No stenosis. Elevated prosthetic gradient. AV mean gradient is 21 mmHg. AV peak gradient is 36 mmHg. AV peak velocity is 3.0 m/s. AV AT is 75.0 ms. LVOT:AV VTI Index is 0.32. AV area by continuity VTI is 1.3 cm2. ? Mitral?Valve: Severe annular calcification. Mild (1+) regurgitation. No stenosis noted. ? Tricuspid?Valve: Mild (1+) regurgitation. Mildly elevated RVSP. RVSP is 41 mmHg. ? Technically difficult study. DISCHARGE SUMMARY Observed: 12/26/2023 9:56 AM Status: COMPLETED Source: [facility] [employer] [facility] Attestation signed by Harjeet Huffman MD at 01/11/2024 8:35 PM I, Dr. Huffman, saw and evaluated the patient on 12/26/2023. I personally obtained the fitzpatrick and critical portions of the history and physical exam. I reviewed the chart and discussed the patient with the Nurse Practitioner. I agree with the Nurse Practitioner's medical decision making. Hospital Summary: Patient was admitted for elective transcatheter aortic valve replacement. she did well with this procedure. she is now POD1 s/p TF TAVR. she is back to her baseline activity with no symptoms. she will be discharged today on her current medication list. she will follow up in valve clinic in 1-2 weeks. Name: Brianne Call Date of : 1940 Date of Admission: 12/25/2023 Date of Discharge: 12/26/2023 Admitting physician: Harjeet Huffman MD Discharge Attending: JEREMIE Ruiz CNP, MD Primary Care Physician: HONG GALLAGHER MD Reason for Admission: Severe Symptomatic Aortic Stenosis Consultants: cardiac rehab HOSPITAL ADMISSION PROBLEM LIST: Patient Active Problem List Diagnosis Stenosis of prosthetic aortic valve Nonrheumatic aortic valve stenosis Polypharmacy Short-term memory loss Chronic atrial fibrillation (HCC) Drug-induced bradycardia Renal failure Contrast media adverse reaction Severe aortic stenosis Patient reports dyspnea with exertion unchanged from previous, no chest pain, no palpitations, no dizziness or groin complaints Review of Systems Review of Systems Constitutional: Negative for activity change, chills, diaphoresis, fatigue and fever. HENT: Negative for nosebleeds and trouble swallowing. Eyes: Negative for discharge and visual disturbance. Respiratory: Positive for shortness of breath and wheezing. Negative for apnea, cough and chest tightness. Cardiovascular: Positive for leg swelling. Negative for chest pain and palpitations. Gastrointestinal: Negative for abdominal distention, abdominal pain, blood in stool, diarrhea, nausea and vomiting. Endocrine: Negative for cold intolerance and heat intolerance. Genitourinary: Negative for hematuria. Musculoskeletal: Negative for gait problem and myalgias. Skin: Negative for color change and rash. Neurological: Negative for dizziness, seizures, syncope, facial asymmetry, speech difficulty, weakness, light-headedness, numbness and headaches. Hematological: Does not bruise/bleed easily. Psychiatric/Behavioral: Negative for dysphoric mood. Physical Exam Physical Exam Constitutional: Appearance: Normal appearance. HENT: Head: Normocephalic and atraumatic. Nose: Nose normal. Eyes: Conjunctiva/sclera: Conjunctivae normal. Pupils: Pupils are equal, round, and reactive to light. Cardiovascular: Rate and Rhythm: Normal rate and regular rhythm. Pulmonary: Effort: Pulmonary effort is normal. Comments: Crackles right base Abdominal: General: Bowel sounds are normal. Palpations: Abdomen is soft. Musculoskeletal: General: Normal range of motion. Cervical back: Normal range of motion and neck supple. Right lower leg: Edema present. Left lower leg: Edema present. Skin: General: Skin is warm and dry. Comments: Right wrist and left groin access sites soft without bleeding or hematoma Neurological: General: No focal deficit present. Mental Status: She is alert and oriented to person, place, and time. Psychiatric: Mood and Affect: Mood normal. Thought Content: Thought content normal. Procedures: Transfemoral transcatheter AVR with 23 mm Soumya S3 valve under moderate sedation Transthoracic echocardiogram HOSPITAL COURSE : The patient was admitted to the hospital for elective TAVR on 12/25/2023 . A 23 mm Soumya S3 valve was implanted. The patient returned to [facility] for recovery. Vital signs and labs were stable. Patient had asymptomatic resting bradycardia, beta vaughn was held. There were no groin complications. The patient was ambulatory the evening of the procedure. Post procedure echocardiogram demonstrated : Patient education including SBE prophylaxis, activity, access site care, follow up appointments, and medications was provided. The patient verbalized understanding, questions were answered. The patient was discharged home in good condition. Patient was given additional IV Lasix prior to discharge for acute heart failure, dyspnea, edema. Referral to cardiac rehabilitation has been recommended and discussed with the patient prior to discharge. Referral has been made to the [facility]. Last Labs: Lab Results Component Value Date WBC 11.6 (H) 12/26/2023 HGB 14.0 12/26/2023 HCT 43.0 12/26/2023 MCV 97.9 12/26/2023 PLT 154 12/26/2023 Lab Results Component Value Date NA 134 (L) 12/26/2023 K 4.4 12/26/2023 CL 108 (H) 12/26/2023 CO2 19 (L) 12/26/2023 BUN 31 (H) 12/26/2023 CREATININE 1.17 (H) 12/26/2023 GLUCOSE 121 (H) 12/26/2023 CALCIUM 9.1 12/26/2023 No results found for: CHLPL, CHOL No results found for: TRIG No results found for: HDL No results found for: LDLCALC Discharge Medications: Medication List CHANGE how you take these medications apixaban 5 MG tablet Commonly known as: Eliquis Take 1 tablet (5 mg) by mouth 2 times daily. Resume 12/25 evening dose What changed: additional instructions CONTINUE taking these medications Farxiga 10 MG tablet Generic drug: dapagliflozin febuxostat 40 MG tablet Commonly known as: Uloric furosemide 40 MG tablet Commonly known as: Lasix metoprolol tartrate 25 MG tablet Commonly known as: Lopressor pantoprazole 40 MG EC tablet Commonly known as: ProtoNix spironolactone 25 MG tablet Commonly known as: Aldactone STOP taking these medications aspirin 81 MG EC tablet predniSONE 20 MG tablet Commonly known as: Deltasone Where to Get Your Medications Information about where to get these medications is not yet available Ask your nurse or doctor about these medications apixaban 5 MG tablet DIET: A low fat, low cholesterol, 2 gramsodium diet was discussed with the patient. Discharge to home Condition at Discharge: Stable, improved Final Primary Dx: Severe Symptomatic Aortic Stenosis Transfemoral TAVR Acute on chronic heart failure with reduced EF, treated with TAVR, IV Lasix Secondary Dx: BMI Classification: Morbidly Obese (>40.0) Class 3 obesity Chronic kidney disease stage 3 Chronic atrial fibrillation HTN HPL Follow up with [facility] one week, appt arranged If any questionscall [facility] [phone] Greater than 30 minutes spent on patient discharge including assessment/plan, education, and coordination of care Electronically signed by JEREMIE Ruiz CNP Date: 12/26/2023 CONSULT Observed: 12/26/2023 9:46 AM Status: COMPLETED Source: [facility] Received referral and review ed chart. Phase II Cardiopulmonary Rehab Referral discussed with Brianne Call. Patient prefers cardiopulmonary rehab at [facility]. Given information on program at preferred location. 12-LEAD Observed: 12/26/2023 9:21 AM Status: F Source: [facility] IMPRESSION: Atrial fibrillation Poor R wave progression, CONSIDER ANTERIOR INFARCT ST and T abnormality Electronically Signed On 12-26-2023 09:21:43 EDT by Austin Carmona BASIC METABOLIC PANEL Collected: 2023 5:13 AM Status: F Source: [facility] TYPE CODE TESTS RESULT OUT OF RANGE REFERENCE UNITS LAB [id number] SODIUM 134 Low 135-145 mmol/L LAB [id number] POTASSIUM 4.4 3.5-5.1 mmol/L LAB 4127875 CHLORIDE 108 High 98-107 mmol/L LAB 2387650 CARBON DIOXIDE 19 Low 22-30 mmol/L LAB [id number] UREA NITROGEN 31 High 7-17 mg/dL LAB [id number] CREATININE 1.17 High 0.52-1.04 mg/dL LAB [id number] GLUCOSE 121 High 70-100 mg/dL LAB [id number] CALCIUM 9.1 8.4-10.4 mg/dL LAB [id number] ANION GAP 7 3-13 mmol/L LAB [id number] GLOMERULAR FILTRATION RATE ML/MIN/1.73 SQ M.PREDICTED 46.4 Low >60.0 mL/min/1. 73m*2 Result Comment: Calculation based on the Chronic Kidney Disease Epidemiology Collaboration (CKD-EPI) equation refit without adjustment for race Performed By: #### [id number] ### # Memorial Marker Designer: AIDE RUEDA ([id number]) [facility] ([address] CBC (HEMOGRAM) Collected: 12/26/2023 5:13 AM Status: F Source: [facility] TYPE CODE TESTS RESULT OUT OF RANGE REFERENCE UNITS LAB [id number] WBC 11.6 High 3.6-10.7 10*3/uL LAB [id number] RBC 4.39 3.80-5.20 10*6/uL LAB 0478681 HEMOGLOBIN 14.0 11.7-16.0 g/dL LAB 6084029 HEMATOCRIT 43.0 35.0-47.0 % LAB 9245943 MCV 97.9 77.0-99.0 fL LAB 2496458 MCH 31.9 26.0-34.0 pg LAB 9939967 MCHC 32.6 30.5-36.0 % LAB 1383308 RDW 13.3 11.5-15.0 % LAB 4305734 PLATELET COUNT 154 140-440 10*3/uL LAB [id number] MPV 12.4 9.0-12.7 fL Performed By: #### [id number] ## ## Memorial Marker Designer: AIDE RUEDA ([id number]) [facility] ([facility]) [address] [place] [address] TRANSTHORACIC ECHOCARDIOGRAM (TTE) LIMITED COLOR FLOW AND DOPPLER Observed: 12/25/2023 5:08 PM Status: F Source: [facility] [employer] [facility] This is a summary report. Th e complete report is available in the patient's medical record. If you cannot access the medical record, please contact the sending organization for a detailed fax or copy. ? Aortic?Valve: Lucia Soumya 3 Ultra bioprosthetic aortic valve with a size of 23mm mm. AV mean gradient is 14 mmHg. ? Tricuspid?Valve: RVSP is 48 mmHg Plus the RA. ? Otherwise limited echo. Images not clear enough for further conclusions. BASIC METABOLIC PANEL Collected: 2023 11:27 AM Status: F Source: [facility] [employer] [facility] TYPE CODE TESTS RESULT OUT OF RANGE REFERENCE UNITS LAB [id number] SODIUM 141 135-145 mmol/L LAB 8797146 POTASSIUM 4.7 3.5-5.1 mmol/L LAB 1737713 CHLORIDE 113 High 98-107 mmol/L LAB 5921811 CARBON DIOXIDE 19 Low 22-30 mmol/L LAB 7703392 UREA NITROGEN 28 High 7-17 mg/dL LAB 9163382 CREATININE 1.09 High 0.52-1.04 mg/dL LAB 6133578 GLUCOSE 148 High 70-100 mg/dL LAB 7240005 CALCIUM 8.5 8.4-10.4 mg/dL LAB 7292547 ANION GAP 9 3-13 mmol/L LAB 5718048 GLOMERULAR FILTRATION RATE ML/MIN/1.73 SQ M.PREDICTED 50.5 Low >60.0 mL/min/1. 73m*2 Result Comment: Calculation based on the Chronic Kidney Disease Epidemiology Collaboration (CKD-EPI) equation refit without adjustment for race ORDER COMMENTS: Slightly Hemolyzed. Interpret {TESTS AFFECTED BY SLIGHT HEMOLYSIS:92143} with caution. Performed By: #### [id number] ### # Memorial Marker Designer: AIDE RUEDA ([id number]) [facility]) [address] [place] [address] CBC (HEMOGRAM) Collected: 12/25/2023 11:27 AM Status : F Source: [facility] TYPE CODE TESTS RESULT OUT OF RANGE REFERENCE UNITS LAB 6762014 WBC 9.1 3.6-10.7 10*3/uL LAB 1607747 RBC 4.07 3.80-5.20 10*6/uL LAB 7211698 HEMOGLOBIN 13.0 11.7-16.0 g/dL LAB 6243304 HEMATOCRIT 39.5 35.0-47.0 % LAB 0031568 MCV 97.1 77.0-99.0 fL LAB 7388655 MCH 31.9 26.0-34.0 pg LAB 9328678 MCHC 32.9 30.5-36.0 % LAB 6873907 RDW 13.3 11.5-15.0 % LAB 6939391 PLATELET COUNT 140 140-440 10*3/uL LAB 0721068 MPV 12.2 9.0-12.7 fL Performed By: #### [id number] ## ## Memorial Marker Designer: AIDE RUEDA ([id number]) [facility] ([facility]) [address] [place] [address] [id number] Observed: 12/25/2023 11:24 AM Status: COMPLETED Source: [facility] Patient: Brianne Call Procedure Summary Date: 12/25/23 Room / Location: [facility] Operating Room Anesthesia Start: 945 Anesthesia Stop: Procedures: TRANSCATHETER AORTIC VALVE REPLACEMENT, TRANSTHORACIC ECHOCARDIOGRAM TRANSCATHETER AORTIC VALVE REPLACEMENT, TRANSTHORACIC ECHOCARDIOGRAM (Chest) Diagnosis: Nonrheumatic aortic valve stenosis Surgeons: Harjeet Huffman MD; Tien Cornell MD Responsible Provider: Phu Lee MD Anesthesia Type: MAC ASA Status: 4 Anesthesia Type: MAC Vitals Value Taken Time BP 117/66 12/25/23 1116 Temp 36.3 12/25/23 1124 Pulse 45 12/25/23 1123 Resp 17 12/25/23 1123 SpO2 94 % 12/25/23 1123 Vitals shown include unfiled device data. Anesthesia Post Evaluation Patient location during evaluation: ICU Patient participation: waiting for patient participation Level of consciousness: sleepy but conscious Pain management: adequate Airway patency: patent Dental Injury: no Cardiovascular status: acceptable and hemodynamically stable Respiratory status: spontaneous ventilation, nasal cannula and acceptable Hydration status: acceptable Nausea/Vomiting: controlled No notable events documented. Patient can be discharged once all PACU criteria has been met. ANESTHESIA NOTE Observed: 12/25/2023 11:23 AM Status: COMPLETED Source: [facility]eeper [facility] Patient: Brianne Call Procedure Summary Date: 12/25/23 Room / Location: [facility] Operating Room Anesthesia Start: 945 Anesthesia Stop: Procedures: TRANSCATHETER AORTIC VALVE REPLACEMENT, TRANSTHORACIC ECHOCARDIOGRAM TRANSCATHETER AORTIC VALVE REPLACEMENT, TRANSTHORACIC ECHOCARDIOGRAM (Chest) Diagnosis: Nonrheumatic aortic valve stenosis Surgeons: Harjeet Huffman MD; Tien Cornell MD Responsible Provider: Phu Lee MD Anesthesia Type: MAC ASA Status: 4 Anesthesia Type: MAC Vitals Value Taken Time BP 117/66 12/25/23 1116 Temp 36.3 12/25/23 1123 Pulse 56 12/25/23 1122 Resp 21 12/25/23 1122 SpO2 98 % 12/25/23 1122 Vitals shown include unfiled device data. Anesthesia Post Evaluation Patient location during evaluation: ICU Patient participation: waiting for patient participation Level of consciousness: sleepy but conscious (sedated/intubated) Pain score: 0 Pain management: adequate Multimodal analgesia pain management approach Airway patency: patent Two or more strategies used to mitigate risk of obstructive sleep apnea Cardiovascular status: hemodynamically stable and acceptable Respiratory status: acceptable, spontaneous ventilation and nasal cannula Hydration status: acceptable No notable events documented. MIPS #[id number] PONV Patient did not receive an inhalational anesthetic ([id number]) MIPS # [phone] Perioperative Temperature Management Anesthesia time was 60 minutes or longer (4255F) Anesthesai administered was General (inhalational or TIVA) or Neuraxial block (X0424) At least one body temperature greater than 95.8F/35.5C achieved within the 30 mins immediately prior to or the 15 minutes immediately following anesthesia end time (G9771) [facility] #477 Multimodal Pain Management Not emergent case Patient was not administered multimodal pain management (G2149) Patient reports no pain in PACU (G2149) [facility] #404 Anesthesiology Smoking Abstinence The patient is not a current smoker (e.g. cigarette, cigar, pipe, e-cigarette/vaping/marijuana) If no stop here (XX404) I completed my handoff to the receiving clinician during which we: 1. Identified the patient 2. Identified the responsible provider 3. Reviewed the pertinent medical history 4. Discussed the surgical course 5. Reviewed intra-op anesthesia management and issues during anesthesia 6. Set expectations for post-procedure period 7. Allowed opportunity for questions and acknowledgement of understanding. BLOOD TYPE AND SCREEN GEL Collected: 12/25/2023 10:45 AM Status: F [facility] TYPE CODE TESTS RESULT OUT OF RANGE REFERENCE UNITS LAB 5699723 ABO GROUPING O LAB [id number] RH TYPE IN BLOOD POS LAB 8058061 ANTIBODY SCREEN NEG Performed By: #### [id number] ## ## Memorial Marker Designer: AIDE RUEDA ([id number]) [facility] ([facility]) [address] [place] [address] PROCEDURE NOTE Observed: 12/25/2023 10:28 AM Status: COMPLETED [facility] Arterial Line: Date/Time: 12/25/2023 10:22 AM An arterial line was placed Procedure performed using ultrasound guidance - Image permanently retained with wire or catheter in vein.in the Procedural for the following indication(s): continuous blood pressure monitoring and blood sampling needed. A (size) (length) (type) catheter was placed, into the Right secured by tape. Staffing Performed: Other Other staff: Harjeet Huffman MD OP NOTE Observed: 12/25/2023 9:46 AM Status: COMPLETED [facility] Date of surgery 12/25/2023 Cardiothoracic Surgeon: Tien Cornell MD, FACS Preoperative diagnosis: Severe, symptomatic aortic valve stenosis Postoperative diagnosis: The same Procedure: Transcatheter aortic valve replacement 23 mm SOUMYA S3 Complications: None Anesthesia: Local with conscious sedation Indications for procedure: The patient is an 83-year-old female with a history of severe, symptomatic aortic valve stenosis. The case was reviewed in the valve clinic in the valve conference and the patient was deemed a candidate for TAVR. Procedure detail: The patient was positioned supine on the operating room table. The patient was prepped and draped in usual sterile fashion. Conscious sedation anesthesia was initiated. I was present in the operating room. Vascular access was gained in the left femoral artery, right radial artery and left femoral vein. Please refer to the cardiology dictation for placement of wires and sheaths. The valve was passed through the 14 [place] sapient E sheath into the descending thoracic aorta where it was mounted on a balloon passed across the arch and aortic valve annulus the valve was deployed under rapid pacing the valve was noted to seat well and function normally on transthoracic echocardiography and fluoroscopy. Protamine was given to reverse the systemic effects of heparin and the patient was decannulated transferred stable to recovery. HISTORY AND PHYSICAL NOTE Observed: 12/25/2023 9:15 AM Status: COMPLETED Source: [employer] [facility] H&P reviewed. The patient wa s examined and there are no changes to the H&P. HISTORY AND PHYSICAL NOTE Observed: 06/2023 12:39 PM Status: COMPLETED Source: [employer] [facility] Attestation signed by Harjeet Huffman MD at 12/25/2023 9:26 AM I, Dr. Huffman, saw and evaluated the patient. I personally obtained the fitzpatrick and critical portions of the history and physical exam. I reviewed the chart and discussed the patient with the Nurse Practitioner. I agree with the Nurse Practitioner's medical decision making. I spoke with Brianne Call this morning. she tells me that nothing has changed clinically since our last office visit. We will proceed with the planned procedure. H+ P copied to chart from (office provider's name Jessica David APRN) progress note dated 12/12/23 on behalf of (procedural physician's name Dr. Huffman). Expand All Collapse All [facility] - [place] [address] [facility] [address] Dept: [phone] Dept Visit type: Established : 1940 Reason for Visit: Cardiac Valve Problem (Patient seen in private OP procedure area for H + P update and education prior to scheduled TAVR) Assessment and Plan 1. Chronic atrial fibrillation (HCC). HR controlled on metoprolol and treated with Eliquis for stroke prophylaxis. 2. Nonrheumatic aortic valve stenosis. CTA today with hydration. Pre op labs. Discussed TAVR procedure, questions answered. Will hold Eliquis 2 days prior and begin ASA. Brianne Call participated in a shared decision making process regarding treatment of aortic stenosis. Brianne Call was made aware of the techniques for aortic valve implantation, the risks and benefits for both forms of AVR therapy, medical management or a palliative care strategy, and the multidisciplinary team's recommendations to facilitate achieving the best outcome given specific risk, characteristics, and goals of care. Brianne Call was engaged in the decision and expressed understanding and acceptance of the plan. 3. Adverse effect of contrast media, initial encounter Solu Cortef 200 mg IV, Pepcid 20 mg IV, and Benadryl 50 mg po now. Pt advised to list contrast to allergy list. Upon re-evaluation, flushing and itching much better. Pt advised to take 25 mg po Benadryl q 6 hr for any additional itching and to call the office foe any further issues. She will be observed today until 3 p in POP. Follow up post procedure. Subjective Ms Call is an 83 yr old female with a PMH of permanent AF, HFrEF, HTN, HPL, CKD stage 3b, obesity, GERD, and severe with EF 30%, mean and peak gradients 49/71 mm Hg. She underwent cardiac cath at [facility] which showed non obstructive CAD. He kidney function recently has been 1.48->1.66 (GFR 33). Decision was made to proceed with CTA with hydration. I am seeing her today in POP to update H + P and education re: upcoming TAVR procedure. Her face is flushed and she reports itching which she has never previously had. She denies any wheezing or acute dyspnea, no trouble swallowing. She continues to note exertional dyspnea and fatigue which has been a problem for her over the last several months. Her weight has been stable. BNP is over 2,000. Review of Systems Constitutional: Positive for fatigue. Negative for activity change, chills, diaphoresis and fever. HENT: Negative for nosebleeds and trouble swallowing. Eyes: Negative for discharge and visual disturbance. Respiratory: Positive for shortness of breath. Negative for apnea, cough, chest tightness and wheezing. Cardiovascular: Negative for chest pain, palpitations and leg swelling. Gastrointestinal: Negative for abdominal distention, abdominal pain, blood in stool, diarrhea, nausea and vomiting. Endocrine: Negative for cold intolerance and heat intolerance. Genitourinary: Negative for hematuria. Musculoskeletal: Negative for gait problem and myalgias. Skin: Negative for color change and rash. Neurological: Negative for dizziness, seizures, syncope, facial asymmetry, speech difficulty, weakness, light-headedness, numbness and headaches. Hematological: Does not bruise/bleed easily. Psychiatric/Behavioral: Negative for dysphoric mood. Allergies Allergies Allergen Reactions Varun Inhibitors Other Iodinated Contrast Media Hives Lisinopril Cough Sacubitril Cough Valsartan Cough Medications Prior to Visit Outpatient Medications Prior to Visit Medication Sig Dispense Refill apixaban (Eliquis) 5 MG tablet Take 5 mg by mouth 2 times daily. Farxiga 10 MG tablet Take 10 mg by mouth daily. febuxostat (Uloric) 40 MG tablet Take 40 mg by mouth daily. furosemide (Lasix) 40 MG tablet Take 40 mg by mouth daily. metoprolol tartrate (Lopressor) 25 MG tablet Take 12.5 mg by mouth 2 times daily. pantoprazole (ProtoNix) 40 MG EC tablet Take 40 mg by mouth every morning (before breakfast). Do not crush, chew, or split. spironolactone (Aldactone) 25 MG tablet Take 25 mg by mouth daily. Facility-Administered Medications Prior to Visit Medication Dose Route Frequency Provider Last Rate Last Admin famotidine (Pepcid) 20 MG/2ML injection - Pyxis ADS Override Pull Hydrocortisone Sod Suc (PF) (Solu-CORTEF) injection 100 mg 100 mg IntraVENous Once JEREMIE Ruiz CNP sodium chloride 0.9 % bolus 500 mL 500 mL IntraVENous Once Harjeet Huffman MD 100 mL/hr at 12/12/23 1005 500 mL at 12/12/23 1005 Medical History Past Medical History: Diagnosis Date Aortic stenosis Atrial fibrillation (HCC) Cataracts, bilateral CKD (chronic kidney disease) Congenital heart disease GERD (gastroesophageal reflux disease) Gout Heart failure with reduced ejection fraction (HCC) History of skin cancer Hyperlipidemia Hypertension Hypokalemia LVH (left ventricular hypertrophy) Morbid obesity (HCC) Osteoarthritis Vitamin D deficiency Social History Tobacco Use Smoking status: Never Smokeless tobacco: Never Substance Use Topics Alcohol use: Never Surgical History Past Surgical History: Procedure Laterality Date APPENDECTOMY CATARACT EXTRACTION HYSTERECTOMY Family History No family history on file. Objective Vitals There were no vitals filed for this visit. - please see notes in POP encounter Physical Exam Constitutional: Appearance: Normal appearance. Comments: Face is flushed, scalp is red HENT: Head: Normocephalic and atraumatic. Nose: Nose normal. Eyes: Conjunctiva/sclera: Conjunctivae normal. Pupils: Pupils are equal, round, and reactive to light. Cardiovascular: Rate and Rhythm: Normal rate. Rhythm irregular. Heart sounds: Murmur heard. Pulmonary: Effort: Pulmonary effort is normal. Breath sounds: Normal breath sounds. Abdominal: General: Bowel sounds are normal. Palpations: Abdomen is soft. Musculoskeletal: General: Normal range of motion. Cervical back: Normal range of motion and neck supple. Skin: General: Skin is warm and dry. Neurological: General: No focal deficit present. Mental Status: She is alert and oriented to person, place, and time. Psychiatric: Mood and Affect: Mood normal. Thought Content: Thought content normal. Data Reviewed and Summarized No results found for: EFBP, PLVEF, LVEFPHYS, LVEF2D, EF Review of tests/labs done/ordered within my specialty: EKG in office: Review of tests/labs done/ordered outside my specialty: Independent interpretation of tests: JEREMIE Ruiz CNP HISTORY AND PHYSICAL NOTE Observed: 06/2023 12:39 PM Status: COMPLETED [facility] Attestation signed by Harjeet Huffman MD at 12/25/2023 9:26 AM I, Dr. Huffman, saw and evaluated the patient. I personally obtained the fitzpatrick and critical portions of the history and physical exam. I reviewed the chart and discussed the patient with the Nurse Practitioner. I agree with the Nurse Practitioner's medical decision making. I spoke with Brianne Call this morning. she tells me that nothing has changed clinically since our last office visit. We will proceed with the planned procedure. H+ P copied to chart from (office provider's name Jessica David APRN) progress note dated 12/12/23 on behalf of (procedural physician's name Dr. Huffman). Expand All [facility] CARDIOLOGY [address] [address] Dept: [phone] Dept Visit type: Established : 1940 Reason for Visit: Cardiac Valve Problem (Patient seen in private OP procedure area for H + P update and education prior to scheduled TAVR) Assessment and Plan 1. Chronic atrial fibrillation (HCC). HR controlled on metoprolol and treated with Eliquis for stroke prophylaxis. 2. Nonrheumatic aortic valve stenosis. CTA today with hydration. Pre op labs. Discussed TAVR procedure, questions answered. Will hold Eliquis 2 days prior and begin ASA. Brianne Call participated in a shared decision making process regarding treatment of aortic stenosis. Brianne Call was made aware of the techniques for aortic valve implantation, the risks and benefits for both forms of AVR therapy, medical management or a palliative care strategy, and the multidisciplinary team's recommendations to facilitate achieving the best outcome given specific risk, characteristics, and goals of care. Brianne Call was engaged in the decision and expressed understanding and acceptance of the plan. 3. Adverse effect of contrast media, initial encounter Solu Cortef 200 mg IV, Pepcid 20 mg IV, and Benadryl 50 mg po now. Pt advised to list contrast to allergy list. Upon re-evaluation, flushing and itching much better. Pt advised to take 25 mg po Benadryl q 6 hr for any additional itching and to call the office foe any further issues. She will be observed today until 3 p in POP. Follow up post procedure. Subjective Ms Call is an 83 yr old female with a PMH of permanent AF, HFrEF, HTN, HPL, CKD stage 3b, obesity, GERD, and severe with EF 30%, mean and peak gradients 49/71 mm Hg. She underwent cardiac cath at [facility] which showed non obstructive CAD. He kidney function recently has been 1.48->1.66 (GFR 33). Decision was made to proceed with CTA with hydration. I am seeing her today in POP to update H + P and education re: upcoming TAVR procedure. Her face is flushed and she reports itching which she has never previously had. She denies any wheezing or acute dyspnea, no trouble swallowing. She continues to note exertional dyspnea and fatigue which has been a problem for her over the last several months. Her weight has been stable. BNP is over 2,000. Review of Systems Constitutional: Positive for fatigue. Negative for activity change, chills, diaphoresis and fever. HENT: Negative for nosebleeds and trouble swallowing. Eyes: Negative for discharge and visual disturbance. Respiratory: Positive for shortness of breath. Negative for apnea, cough, chest tightness and wheezing. Cardiovascular: Negative for chest pain, palpitations and leg swelling. Gastrointestinal: Negative for abdominal distention, abdominal pain, blood in stool, diarrhea, nausea and vomiting. Endocrine: Negative for cold intolerance and heat intolerance. Genitourinary: Negative for hematuria. Musculoskeletal: Negative for gait problem and myalgias. Skin: Negative for color change and rash. Neurological: Negative for dizziness, seizures, syncope, facial asymmetry, speech difficulty, weakness, light-headedness, numbness and headaches. Hematological: Does not bruise/bleed easily. Psychiatric/Behavioral: Negative for dysphoric mood. Allergies Allergies Allergen Reactions Varun Inhibitors Other Iodinated Contrast Media Hives Lisinopril Cough Sacubitril Cough Valsartan Cough Medications Prior to Visit Outpatient Medications Prior to Visit Medication Sig Dispense Refill apixaban (Eliquis) 5 MG tablet Take 5 mg by mouth 2 times daily. Farxiga 10 MG tablet Take 10 mg by mouth daily. febuxostat (Uloric) 40 MG tablet Take 40 mg by mouth daily. furosemide (Lasix) 40 MG tablet Take 40 mg by mouth daily. metoprolol tartrate (Lopressor) 25 MG tablet Take 12.5 mg by mouth 2 times daily. pantoprazole (ProtoNix) 40 MG EC tablet Take 40 mg by mouth every morning (before breakfast). Do not crush, chew, or split. spironolactone (Aldactone) 25 MG tablet Take 25 mg by mouth daily. Facility-Administered Medications Prior to Visit Medication Dose Route Frequency Provider Last Rate Last Admin famotidine (Pepcid) 20 MG/2ML injection - Pyxis ADS Override Pull Hydrocortisone Sod Suc (PF) (Solu-CORTEF) injection 100 mg 100 mg IntraVENous Once Jessica David APRN - [employer] sodium chloride 0.9 % bolus 500 mL 500 mL IntraVENous Once Harjeet Huffman MD 100 mL/hr at 12/12/23 1005 500 mL at 12/12/23 1005 Medical History Past Medical History: Diagnosis Date Aortic stenosis Atrial fibrillation (HCC) Cataracts, bilateral CKD (chronic kidney disease) Congenital heart disease GERD (gastroesophageal reflux disease) Gout Heart failure with reduced ejection fraction (HCC) History of skin cancer Hyperlipidemia Hypertension Hypokalemia LVH (left ventricular hypertrophy) Morbid obesity (HCC) Osteoarthritis Vitamin D deficiency Social History Tobacco Use Smoking status: Never Smokeless tobacco: Never Substance Use Topics Alcohol use: Never Surgical History Past Surgical History: Procedure Laterality Date APPENDECTOMY CATARACT EXTRACTION HYSTERECTOMY Family History No family history on file. Objective Vitals There were no vitals filed for this visit. - please see notes in POP encounter Physical Exam Constitutional: Appearance: Normal appearance. Comments: Face is flushed, scalp is red HENT: Head: Normocephalic and atraumatic. Nose: Nose normal. Eyes: Conjunctiva/sclera: Conjunctivae normal. Pupils: Pupils are equal, round, and reactive to light. Cardiovascular: Rate and Rhythm: Normal rate. Rhythm irregular. Heart sounds: Murmur heard. Pulmonary: Effort: Pulmonary effort is normal. Breath sounds: Normal breath sounds. Abdominal: General: Bowel sounds are normal. Palpations: Abdomen is soft. Musculoskeletal: General: Normal range of motion. Cervical back: Normal range of motion and neck supple. Skin: General: Skin is warm and dry. Neurological: General: No focal deficit present. Mental Status: She is alert and oriented to person, place, and time. Psychiatric: Mood and Affect: Mood normal. Thought Content: Thought content normal. Data Reviewed and Summarized No results found for: EFBP, PLVEF, LVEFPHYS, LVEF2D, EF Review of tests/labs done/ordered within my specialty: EKG in office: Review of tests/labs done/ordered outside my specialty: Independent interpretation of tests: JEREMIE Ruiz CNP CT ANGIOGRAM TAVR Observed: 12/22/2023 11:10 AM Status: F Source: [facility] Patient Name: BRIANNE CALL : 1940 [facility]#: [id number] Exam Date/Time: 12/12/2023 10:40 Procedure: CT ANGIOGRAM TAVR Ordering Provider: VELEZ MEGGAN Reason For Exam: aortic stenosis --------ADDENDUM #1 -------- This is a radiology addendum for the noncardiovascular findings on the CT images of the chest, abdomen, and pelvis obtained for this examination: No focal consolidation is seen within the lungs. There is no pleural effusion or pneumothorax. No suspicious pulmonary nodules are identified. No lymphadenopathy is seen within the chest. There is a diffusely heterogeneous appearance of the thyroid gland with multiple small hypodense nodules, largest of which measures 1.6 cm within the left thyroid lobe. The liver, gallbladder, spleen, pancreas, adrenal glands, and left kidney appear within normal limits. There is a small cyst within the posterior aspect of the right kidney. No retroperitoneal, pelvic, or inguinal lymphadenopathy is identified. The urinary bladder appears grossly normal. The uterus has been removed. Large and small bowel loops does not appear abnormally dilated or thickened. There is a small hiatal hernia. No lytic or blastic lesions are seen on the bone windows. IMPRESSION: Diffusely heterogeneous appearance of the thyroid gland with multiple hypodense nodules measuring up to 1.6 cm on the left. Correlation with thyroid ultrasound is recommended. Small hiatal hernia. Please see Dr. Christie's original report for cardiovascular findings and measurements. Report Dictated on Electronically Signed By: Segundo Leigh MD Electronically Signed Date/Time: 12/22/2023 11:10 AM EDT --------ORIGINAL REPORT -------- [facility] Cardiovascular CTA Indication: 83 year-old woman with severe aortic stenosis, being evaluated for transcatheter aortic valve implantation. Technique: Computed tomography of the heart, thoracoabdominal aorta, and iliofemoral system was performed using a [employer] Aquilion One 320 detector scanner. Images were reconstructed and analyzed on an advanced post-processing 3D workstation. Contrast: 100 mL Total DLP: 3421.50 mGy-cm Study Quality: Fair. The iliofemoral portions are of marginal quality due to poor contrast enhancement. Extracardiac Findings: Prior median sternotomy. Small hiatal hernia present. For a complete description of extracardiac structures, please refer to the accompanying radiology addendum. Cardiac Chambers: The pericardium is unremarkable. The left and right ventricles are normal in size. The left atrium is severely dilated. The left atrial appendage has a filling defect that remains present on the delayed image, representing either layered thrombus or severe stasis. The right atrium is severely dilated. Coronary Arteries: The coronaries have normal origins. There is a pattern of right coronary dominance. There is evidence of coronary atherosclerosis. The present study was not optimized for evaluation of the coronary arteries. Mitral Valve: The mitral annulus has severe calcification, without significant extension into the LVOT. The anterior mitral leaflet is free of the LVOT during systole. Aortic Valve: The aortic valve trileaflet bioprosthesis appears well seated by CT appearance and significantly thickened and calcified. Aorta and Iliofemoral System: All vascular measurements are minimal luminal diameters using a centerline technique. Aortic Root and Thoracic Aorta: Sinotubular junction: 30 mm Mid ascending Aorta: 33 mm Abdominal Aorta: Heavily calcified Infrarenal: 12 mm Bifurcation: 10 mm with concentric calcification Right Iliac System: lumen poorly visualized Calcification: severe. Tortuosity: mild. RCIA: 4 mm, severe calcification REIA: 7 mm RCFA: 8 mm Left Iliac System: lumen poorly visualized Calcification: severe. Tortuosity: mild. LCIA: 7 mm, concentric calcification LOLIS: 10 mm LCFA: 9 mm CONCLUSIONS: 1. Bioprosthetic aortic stenosis, with descriptive anatomy and annular / aortic root measurements as detailed above. 2. Poorly visualized iliofemoral system due to suboptimal contrast timing. Within study limitations, both sides are grossly patent with concern for proximal common iliac disease, as detailed above. Report Dictated on Electronically Signed By: Tang Christie MD Electronically Signed Date/Time: 12/19/2023 2:51 PM EDT Patient Name: BRIANNE CALL : 1940 Exam Date/Time: 12/12/2023 10:40 Procedure: CT ANGIOGRAM TAVR Ordering Provider: VELEZ MEGGAN Reason For Exam: aortic stenosis [facility] Cardiovascular CTA Indication: 83 year-old woman with severe aortic stenosis, being evaluated for transcatheter aortic valve implantation. Technique: Computed tomography of the heart, thoracoabdominal aorta, and iliofemoral system was performed using a [employer] Aquilion One 320 detector scanner. Images were reconstructed and analyzed on an advanced post-processing 3D workstation. Contrast: 100 mL Total DLP: 3421.50 mGy-cm Study Quality: Fair. The iliofemoral portions are of marginal quality due to poor contrast enhancement. Extracardiac Findings: Prior median sternotomy. Small hiatal hernia present. For a complete description of extracardiac structures, please refer to the accompanying radiology addendum. Cardiac Chambers: The pericardium is unremarkable. The left and right ventricles are normal in size. The left atrium is severely dilated. The left atrial appendage has a filling defect that remains present on the delayed image, representing either layered thrombus or severe stasis. The right atrium is severely dilated. Coronary Arteries: The coronaries have normal origins. There is a pattern of right coronary dominance. There is evidence of coronary atherosclerosis. The present study was not optimized for evaluation of the coronary arteries. Mitral Valve: The mitral annulus has severe calcification, without significant extension into the LVOT. The anterior mitral leaflet is free of the LVOT during systole. Aortic Valve: The aortic valve trileaflet bioprosthesis appears well seated by CT appearance and significantly thickened and calcified. Aorta and Iliofemoral System: All vascular measurements are minimal luminal diameters using a centerline technique. Aortic Root and Thoracic Aorta: Sinotubular junction: 30 mm Mid ascending Aorta: 33 mm Abdominal Aorta: Heavily calcified Infrarenal: 12 mm Bifurcation: 10 mm with concentric calcification Right Iliac System: lumen poorly visualized Calcification: severe. Tortuosity: mild. RCIA: 4 mm, severe calcification REIA: 7 mm RCFA: 8 mm Left Iliac System: lumen poorly visualized Calcification: severe. Tortuosity: mild. LCIA: 7 mm, concentric calcification LOLIS: 10 mm LCFA: 9 mm CONCLUSIONS: 1. Bioprosthetic aortic stenosis, with descriptive anatomy and annular / aortic root measurements as detailed above. 2. Poorly visualized iliofemoral system due to suboptimal contrast timing. Within study limitations, both sides are grossly patent with concern for proximal common iliac disease, as detailed above. Report Dictated on Electronically Signed By: Tang Christie MD Electronically Signed Date/Time: 12/19/2023 2:51 PM EDT 36 Observed: 12/21/2023 2:39 PM Status: COMPLETED Source: [facility] Pre TAVR phone call placed. Reviewed, procedure, instructions and meds. Confirmed Eliquis, and Dye Allergy Prep med instructions. Pt verbalizes understanding. Pt knows to call [phone] with any concerns. Teofilo Velez CNP notified for prep for procedure orders. Diagnosis: Procedure being done: TF TAVR Date/time of procedure: 12/25/2023 @ 9:15 am Surgeon: Dr. Huffman 2nd surgeon: Dr. Olsen Admission type: To be admitted Anesthesia: MAC Completed: H&P/BNP/CBC/CMP/CXR/EKG Date completed: [facility] 12/19/23, 12/12/23 Additional orders Dye Allergy Prep meds 36 Observed: 12/21/2023 2:28 PM Status: COMPLETED Source: [facility] Patient has stage 3 b- 4 CKD , stable compared to previous. OK to proceed. 36 Observed: 12/21/2023 11:20 AM Status: COMPLETED Source: [facility] BMP received, reviewed, WHIT farah, Creat 1.9 GFR 27. Teofilo David TECHNICAL ASSOC to review. 36 Observed: 12/21/2023 8:58 AM Status: COMPLETED Source: [facility] I called [facility] for BM P, left message w/ OP lab to fax results. ANESTHESIA NOTE Observed: 12/15/2023 12:21 PM Status: COMPLETED Source: [facility] Patient: Brianne Call Procedure Information Date/Time: 12/25/23 0915 Procedures: TRANSCATHETER AORTIC VALVE REPLACEMENT, TRANSTHORACIC ECHOCARDIOGRAM TRANSCATHETER AORTIC VALVE REPLACEMENT, TRANSTHORACIC ECHOCARDIOGRAM (Chest) Location: [facility] Operating Room Surgeons: Harjeet Huffman MD; Bhavna Schuster, DO Relevant Problems Cardio (+) Chronic atrial fibrillation (HCC) (+) Nonrheumatic aortic valve stenosis (+) Severe aortic stenosis (+) Stenosis of prosthetic aortic valve /Renal (+) Renal failure Past Medical History: Past Medical History: No date: Aortic stenosis No date: Atrial fibrillation (HCC) No date: Cataracts, bilateral No date: CKD (chronic kidney disease) No date: Congenital heart disease No date: GERD (gastroesophageal reflux disease) No date: Gout No date: Heart failure with reduced ejection fraction (HCC) No date: History of skin cancer No date: Hyperlipidemia No date: Hypertension No date: Hypokalemia No date: LVH (left ventricular hypertrophy) No date: Morbid obesity (HCC) No date: Osteoarthritis No date: Vitamin D deficiency Past Surgical History: Past Surgical History: No date: APPENDECTOMY No date: CATARACT EXTRACTION No date: HYSTERECTOMY Social History: TOBACCO: reports that she has never smoked. She has never used smokeless tobacco. ETOH: reports no history of alcohol use. Social History Substance and Sexual Activity Drug Use Not on file Family History: No family history on file. Screening: unknown Clinical information reviewed: Physical Exam Airway Mallampati: II TM distance: >3 FB Neck ROM: full Mouth Open: normalendotracheal tube not in place Cardiovascular Dental (+) Poor, Upper Dentures Comments: Few remaining lower front teeth in poor repair with broken surfaces Pulmonary Abdominal Anesthesia Plan patient is NPO appropriate Any family history or previous problems with anesthesia no ASA 4 MAC Any family history or previous problems with anesthesia no The patient is not a current smoker. Anesthetic plan and risks discussed with patient. ERAS Type 12/15/23 Chart reviewed. DOS orders for anesthesia placed according to ERAS protocol. Tavr, no eras Tavr checklist complete Records in media Carolina Waldron, ORGANIZATION DEVELOPMENT CONSULTANT - TECHNICAL ASSOC JOB Screening Labs: Lab Results Component Value Date WBC 6.9 12/12/2023 HGB 16.0 12/12/2023 HCT 48.1 (H) 12/12/2023 MCV 95.2 12/12/2023 PLT 194 12/12/2023 Lab Results Component Value Date NA 136 12/12/2023 K 4.3 12/12/2023 CL 103 12/12/2023 CO2 22 12/12/2023 BUN 36 (H) 12/12/2023 CREATININE 1.95 (H) 12/12/2023 GLUCOSE 107 (H) 12/12/2023 CALCIUM 9.3 12/12/2023 PROT 7.9 12/12/2023 ALKPHOS 70 12/12/2023 AST 52 (H) 12/12/2023 ALT 18 12/12/2023 EGFR 25.1 (L) 12/12/2023 No echocardiogram results found for the past 14 days 11/21/23 ECG 12-LEAD 11/25/2023 4:31 PM (Final) Narrative Atrial fibrillation -Old anteroseptal infarct. -Diffuse nonspecific T-abnormality. ABNORMAL Signed by: Harjeet Huffman MD on 11/25/2023 4:31 PM EF 30% Severe Aortic Stenosis Peak Gradient 71 mmHg Equipment Requests: Additional Equipment Requests 36 Observed: 12/15/2023 9:03 AM Status: COMPLETED [facility] Lab order faxed to [facility] [id number]/Confirmed 36 Observed: 12/14/2023 2:00 PM Status: COMPLETED Source: [facility] [employer] [facility] Per Teofilo David DNP, will get BMP done on 12/19/23 in [place], RX for Prednisone pended. [facility] to fax lab order to [facility], pt notified via phone and verbalizes understanding. 36 Observed: 12/13/2023 12:05 PM Status: COMPLETED [facility] Pt returned my call, no furt her issues w/ itching/hives from contrast allergy. I reviewed need for BMP and Prednisone before TAVR. Of note, pt was unaware of any renal insufficiency in the past. Will discuss timing of BMP w/ Teofilo David DNP. 36 Observed: 12/13/2023 11:29 AM Status: COMPLETED Source: [facility] Per Teofilo David DNP, pt had al lergic reaction to CTA contrast yesterday, and pt with increase in Creat. Plan for Dye Allergy Prep meds will be needed, and repeat BMP. I left vm message for pt to return call. 36 Observed: 12/08/2023 3:40 PM Status: COMPLETED Source: [facility] Approved [id number] 12/24-12/26/23 Calendars and Snapboard updated. 36 Observed: 12/08/2023 9:01 AM Status: COMPLETED Source: [facility] Messaged central scheduling through secure chat and CTA TAVR scheduled at [facility] at 11 am. 36 Observed: 12/07/2023 2:39 PM Status: COMPLETED Source: [facility] Jay Currie RT is out of office until 12/11/23. I spoke w/ [facility] Radiology Dept, I was sent to a tank cleaning supervisor , I left vm message re: add on CTA @ [facility] for 12/11. 36 Observed: 12/07/2023 9:07 AM Status: COMPLETED Source: [facility] I spoke w/ Katherin in [place], re: [place] IV hydration, having difficulty with adding pt, she will speak w/ coworker and call me back. I spoke w/ Jennifer RN in [place], they have pt on their schedule. I spoke w/ patient, reviewed NPO 4 hrs prior, all questions answered. I also spoke w/ Rossana in [place], CTA needs moved to [facility]. 36 Observed: 12/06/2023 2:45 PM Status: COMPLETED Source: [facility] Hydration orders faxed,confi rmed and scanned under Media Submitted auth request on [facility]. Pending # [id number] On all 3 calendars. 36 Observed: 12/06/2023 2:00 PM Status: COMPLETED Source: [facility] I spoke w/ pt and dtr Shama re: need for [facility]/IV hydration for CTA. I spoke w/ Hiwot in [place], they can accommodate pt on 12/11 @ 7. 8 hr IV hydration orders and pre op TAVR lab/CXR orders given to [facility] to fax. I called Radha Alvarado in to arrange CTA, she will call me back to arrange CTA & once IV hydration orders are scanned. Agrees to TAVR date of 12/25/23 @ 9:15, [facility] notified to schedule/PA/snap board/calendars. 36 Observed: 12/06/2023 1:34 PM Status: COMPLETED Source: [facility] Message reviewed. Recommend CTA with IV hydration. Can get pre procedure labs at time of CTA. 36 Observed: 12/06/2023 11:37 AM Status: COMPLETED Source: [facility] Patient returned my call. No issues with Right radial cath site, cath performed by Dr. Garces in [place], I called to have images pushed to PACS and fax report w/ recent labs. Labs reviewed from [place], drawn 11/28/23 GFR 31 prior to cath. Teofilo Velez CNP notified to review and advise if IV hydration is needed. 36 Observed: 12/06/2023 9:58 AM Status: COMPLETED Source: [facility] I spoke w/ Medina in Dr. Christiano christensen's office, confirmed [facility] completed, she will push images to PACS and fax report & lab results. I left vm message for melanie Sesay to review pt status, discuss next steps BMP/CTA. ALLERGIES No Allergies Records Found ENCOUNTERS ADMIT/DISCHARGE ACCOUNT NUMBER ADMITTING ENCOUNTER CLASS LOC ATION SOURCE 01/04/2024/ 4 [id number] Ambulatory Buildin [id number] [facility] 12/25/2023/ 4 [id number] HARJEET HUFFMAN Inpatient Encounter Buildin [id number]: [facility] [id number]: T1114 A [facility] 12/12/2023/ 4 [id number] Ambulatory Buildin [id number] [facility] PAYERS ENCOUNTER GUARANTOR PAYER SUBSCRIBER SOURCE 01/04/2024 Primary Insurance:[employer] MEDICAREPolicy Number: [id number] Date:[id number] Name:Medicare HMO BRIANNE Wells YAMINIOB: [id number] [id number] [place] [address] 12/25/2023 Primary Insurance:[employer] MEDICAREPolicy Number: [id number] Date:[id number] Name:Medicare HMO BRIANNE Wells YAMINIOB: [id number] [facility] [address] [place] [id number] [place] [address] 12/12/2023 Primary Insurance:[employer] MEDICAREPolicy Number: [id number] Date:0924-30-54Ghuo Name:Medicare HMO BRIANNE Wells FELICIANO: [id number] [facility] [address] [place] [id number] [place] [address]
--- OUTSIDE RECORDS SUMMARY | 2024-01-04 11:33 | XMS RPT_ITS ---
Author Name Auto Generated Organization OHIP Care Team Providers Care Beef Tagger Name Role Phone HARJEET HUFFMAN Attending Unavailable HARJEET HUFFMAN Admitting Unavailable ELLIOTT, LUCINDA-CHI Primary Care Unavailable ELLIOTT, LUCINDA-CHI Primary Care Unavailable LINDA VELEZ Referring Unavailable LINDA VELEZ Attending Unavailable JESSICA DAVID Attending Unavailable ELLIOTT, LUCINDA-CHI Primary Care Unavailable PROBLEMS DATE TYPE CONDITION / CODE ATTENDING STATUS [facility] 01/03/2024 Admitting Diagnosis Left ventricular failure, unspecified (HCC) / I50.1(ICD-10) JESSICA DAVID Active [facility] 01/03/2024 Admitting Diagnosis Chronic kidney disease, stage 3a (HCC) / N18.31(ICD-10) JESSICA DAVID Active [facility] 11/21/2023 Admitting Diagnosis Chronic atrial fibrillation, unspecified (HCC) / I48.20(ICD-10) JESSICA DAVID Active [facility] 12/25/2023 Admitting Diagnosis Nonrheumatic aortic (valve) stenosis / I35.0(ICD-10) HARJEET HUFFMAN Active [facility] PROCEDURES No Procedure Records Found RESULTS 36 Observed: 04/03/2024 11:30 AM Status: COMPLETED Source: [facility] Records received and scanned under Media 36 Observed: 04/01/2024 10:30 AM Status: COMPLETED Source: [facility] I called [place] and she req uested me to fax med recs release to [phone] I faxed this morning. Confirmed 04/02 at 5:45p 36 Observed: 03/15/2024 11:04 AM Status: COMPLETED Source: [facility] Chart reviewed, patient comp leted 30 day follow-up in [place]. Cancelled echo order 36 Observed: 03/15/2024 9:44 AM Status: COMPLETED Source: [facility] Patient prefers care in [place] [address] 36 Observed: 03/15/2024 9:31 AM Status: COMPLETED Source: [facility] We have been unable to reach your patient to schedule their testing. Test Name: echo 1st Attempt: 03/14/2024 left voicemail 2nd Attempt: 03/15/2024 left voicemail 36 Observed: 01/04/2024 4:09 PM Status: COMPLETED Source: [facility] I spoke w/ Juana in Dr. Bhavik ayala's office, asking for echo order to be faxed. I placed anu, Teofilo David DNP to sign, order needs faxed to Juana's attention @ [phone]. Time frame dates given to Juana for completion of OV/EKG/echo. KCCQ mailed to pt. 36 Observed: 01/04/2024 4:06 PM Status: COMPLETED Source: [facility] ----- Message from JEREMIE Saldaña CNP sent at 01/04/2024 1:51 PM EDT ----- Please call [facility] office and advise regarding registry requirements of one month and one yr appts and echo. Will likely need phone call for KCCQ. PROGRESS NOTE Observed: 01/04/2024 12:00 PM Status: COMPLETED Source: [facility] [place] [address] [facility] [address] Dept: [phone] Dept Visit type: Established : 1940 Reason for Visit: Cardiac Valve Problem (One week post TAVR) Assessment and Plan 1. Chronic atrial fibrillation (HCC). HR stable. Continue Apixaban 2. Severe aortic stenosis. S/p tAVR. Continue Eliquis. Will contact [facility] regarding follow up and registry requirements. SBE prophylaxis. Plan echo in one month 3. Stage 3a chronic kidney disease (HCC). Renal function remains stable post procedure. Advised that kidney function should be followed half-way. GFR 27--> 46 4. Left heart failure (HCC). Improved after TAVR, EF 30%--> 50 %, continue furosemide, Aldactone, Farxiga, metoprolol (allerg to varun/ARB) Plan follow up in [place] Subjective Ms Call is an 83 yr old female with a PMH of permanent AF, HFrEF, HTN, HPL, CKD stage 3b, obesity, GERD, and severe with EF 30%, mean and peak gradients 49/71 mm Hg. She underwent cardiac cath at [place] which showed non obstructive CAD. She underwent [...] wrist complaints. She wishes to follow in [place] as travel is difficult for her Allergies [...] 12/25/2023 Performed by Harjeet Huffman MD at [facility] OR CATARACT EXTRACTION HYSTERECTOMY No family history [...] interpretation of tests: Jessica David APRN - DESULPHURIZER OPERATOR OFFICE VISIT Observed: 01/04/2024 12:00 PM Status: COMPLETED Source: [facility] [employer] [facility] [id number] Brianne Call [birth year] F Date Provider Department Center 01/04/2024 [id number] DAVID [facility] [address] No family history on file Level of Service:53398 NC OFFICE/OUTPATIENT ESTABLISHED MOD MDM 30 MIN Reason for Visit and Comments: Cardiac Valve Problem [1334] - One week post TAVR ECG 12-LEAD Observed: 12/26/2023 4:26 PM Status: F Source: [facility] [employer] [facility] IMPRESSION: Atrial fibrillation with slow ventricular rate Repol abnrm suggests ischemia, diffuse leads Electronically Signed On 12-26-2023 16:26:55 EDT by Austin Carmona NURSING NOTE Observed: 12/26/2023 1:33 PM Status: COMPLETED Source: [facility] Discharge instructions given to patient and daughter. Patient verbalizes understanding of medication changes and follow up appointments, and activity restrictions. Discharged to home with daughter. TRANSTHORACIC ECHOCARDIOGRAM (TTE) COMPLETE W/ CONTRAST Observed: 12/26/2023 10:39 AM Status: F Source: [facility] [employer] [facility] This is a summary report. Th e [...] Observed: 12/26/2023 9:56 AM Status: COMPLETED Source: [facility] [employer] [facility] Attestation signed by Harjeet Huffman MD at [...] discharge. Referral has been made to the [facility] Out[facility] Program. Last Labs: Lab [...] atrial fibrillation HTN HPL Follow up with [facility] one week, appt arranged If any questionscall [facility] [phone] Greater than 30 minutes spent on patient discharge including assessment/plan, education, and coordination of care Electronically signed by JEREMIE Ruiz CNP Date: 12/26/2023 CONSULT Observed: 12/26/2023 9:46 AM Status: COMPLETED Source: [facility] Received referral and review ed chart. Phase II Cardiopulmonary Rehab Referral discussed with Brianne Call. Patient prefers cardiopulmonary rehab at [facility]. Given information on program at preferred location. 12-LEAD Observed: 12/26/2023 9:21 AM Status: F Source: [facility] IMPRESSION: Atrial fibrillation Poor R wave progression, CONSIDER ANTERIOR INFARCT ST and T abnormality Electronically Signed On 12-26-2023 09:21:43 EDT by Austin Carmona BASIC METABOLIC PANEL Collected: 2023 5:13 AM Status: F Source: [facility] TYPE CODE TESTS RESULT OUT OF RANGE REFERENCE UNITS LAB 1916683 SODIUM 134 Low 135-145 mmol/L LAB 0855674 POTASSIUM 4.4 3.5-5.1 mmol/L LAB 6337935 CHLORIDE 108 High 98-107 mmol/L LAB 2058680 CARBON DIOXIDE 19 Low 22-30 mmol/L LAB 0361924 UREA NITROGEN 31 High 7-17 mg/dL LAB 3239889 CREATININE 1.17 High 0.52-1.04 mg/dL LAB 9507415 GLUCOSE 121 High 70-100 mg/dL LAB 0430159 CALCIUM 9.1 8.4-10.4 mg/dL LAB 0571151 ANION GAP 7 3-13 mmol/L LAB 8896743 GLOMERULAR FILTRATION RATE ML/MIN/1.73 SQ M.PREDICTED 46.4 Low >60.0 mL/min/1. 73m*2 Result Comment: Calculation based on the Chronic Kidney Disease Epidemiology Collaboration (CKD-EPI) equation refit without adjustment for race Performed By: #### [id number] ### # Vice President Business Development: AIDE RUEDA ([id number]) [facility] ([address] CBC (HEMOGRAM) Collected: 12/26/2023 5:13 AM Status: F Source: [facility] TYPE CODE TESTS RESULT OUT OF RANGE REFERENCE UNITS LAB 1019646 WBC 11.6 High 3.6-10.7 10*3/uL LAB 2938700 RBC 4.39 3.80-5.20 10*6/uL LAB 3027356 HEMOGLOBIN 14.0 11.7-16.0 g/dL LAB 6382934 HEMATOCRIT 43.0 35.0-47.0 % LAB 8746678 MCV 97.9 77.0-99.0 fL LAB 0200515 MCH 31.9 26.0-34.0 pg LAB 4208391 MCHC 32.6 30.5-36.0 % LAB 5583987 RDW 13.3 11.5-15.0 % LAB 4275320 PLATELET COUNT 154 140-440 10*3/uL LAB 8186263 MPV 12.4 9.0-12.7 fL Performed By: #### [id number] ## ## Vice President Business Development: AIDE RUEDA ([id number]) [facility] ([facility]) [address] [place] [address] TRANSTHORACIC ECHOCARDIOGRAM (TTE) LIMITED COLOR FLOW AND DOPPLER Observed: 12/25/2023 5:08 PM Status: F Source: [facility] [employer] [facility] This is a summary report. Th e [...] Collected: 2023 11:27 AM Status: F Source: [facility] [employer] [facility] TYPE CODE TESTS RESULT OUT OF RANGE REFERENCE UNITS LAB 8029692 SODIUM 141 135-145 mmol/L LAB 1497279 POTASSIUM 4.7 3.5-5.1 mmol/L LAB 9726940 CHLORIDE 113 High 98-107 mmol/L LAB 3856564 CARBON DIOXIDE 19 Low 22-30 mmol/L LAB 3087752 UREA NITROGEN 28 High 7-17 mg/dL LAB 0619965 CREATININE 1.09 High 0.52-1.04 mg/dL LAB 4937356 GLUCOSE 148 High 70-100 mg/dL LAB 1365363 CALCIUM 8.5 8.4-10.4 mg/dL LAB 9877015 ANION GAP 9 3-13 mmol/L LAB 5008326 GLOMERULAR FILTRATION RATE ML/MIN/1.73 SQ M.PREDICTED 50.5 Low >60.0 mL/min/1. 73m*2 Result Comment: Calculation based on the Chronic Kidney Disease Epidemiology Collaboration (CKD-EPI) equation refit without adjustment for race ORDER COMMENTS: Slightly Hemolyzed. Interpret {TESTS AFFECTED BY SLIGHT HEMOLYSIS:68867} with caution. Performed By: #### [id number] ### # Vice President Business Development: AIDE RUEDA ([id number]) [facility]) [address] [place] [address] CBC (HEMOGRAM) Collected: 12/25/2023 11:27 AM Status : F Source: [facility] TYPE CODE TESTS RESULT OUT OF RANGE REFERENCE UNITS LAB 9239734 WBC 9.1 3.6-10.7 10*3/uL LAB 1452273 RBC 4.07 3.80-5.20 10*6/uL LAB 0074659 HEMOGLOBIN 13.0 11.7-16.0 g/dL LAB 7740719 HEMATOCRIT 39.5 35.0-47.0 % LAB 1083813 MCV 97.1 77.0-99.0 fL LAB 2801973 MCH 31.9 26.0-34.0 pg LAB 8118253 MCHC 32.9 30.5-36.0 % LAB 7561026 RDW 13.3 11.5-15.0 % LAB 2738648 PLATELET COUNT 140 140-440 10*3/uL LAB 6760144 MPV 12.2 9.0-12.7 fL Performed By: #### [id number] ## ## Vice President Business Development: AIDE RUEDA ([id number]) [facility] ([facility]) [address] [place] [address] [id number] Observed: 12/25/2023 11:24 AM Status: COMPLETED Source: [facility] Patient: Brianne Call Procedure Summary Date: 12/25/23 Room / Location: [facility] Operating Room Anesthesia Start: 945 Anesthesia Stop: [...] Observed: 12/25/2023 11:23 AM Status: COMPLETED Source: [facility] Patient: Brianne Call Procedure Summary Date: 12/25/23 Room / Location: [facility] OR [facility] Operating Room Anesthesia Start: 945 Anesthesia Stop: [...] Patient reports no pain in PACU (G2149) [facility] Anesthesiology Smoking Abstinence The patient is [...] Collected: 12/25/2023 10:45 AM Status: F [facility] TYPE CODE TESTS RESULT OUT OF RANGE REFERENCE UNITS LAB 8561153 ABO GROUPING O LAB 4987347 RH TYPE IN BLOOD POS LAB 5069716 ANTIBODY SCREEN NEG Performed By: #### [id number] ## ## Vice President Business Development: AIDE RUEDA ([id number]) [facility] BLOOD [facility] ([facility]) [address] [place] [address] PROCEDURE NOTE Observed: 12/25/2023 10:28 AM Status: COM[facility]TED [facility] Arterial Line: Date/Time: 12/25/2023 10:22 AM An [...] Observed: 12/25/2023 9:46 AM Status: COMPLETED [facility] Date of surgery 12/25/2023 Cardiothoracic Surgeon: [...] Observed: 12/25/2023 9:15 AM Status: COMPLETED Source: [employer] [facility] H&P reviewed. The patient wa s examined and there are no changes to the H&P. HISTORY AND PHYSICAL NOTE Observed: 06/2023 12:39 PM Status: COMPLETED Source: [employer] [facility] Attestation signed by Harjeet Huffman MD [...] name Dr. Huffman). Expand All Collapse All [facility] [place] [address] [facility] [address] Dept: [phone] Dept Visit type: Established : 1940 Reason [...] mm Hg. She underwent cardiac cath at [place] which showed non obstructive CAD. He kidney [...] Observed: 06/2023 12:39 PM Status: COMPLETED [facility] Attestation signed by Harjeet Huffman MD at [...] (procedural physician's name Dr. Huffman). Expand All [facility] CARDIOLOGY [address] [address] Dept: [phone] Dept Visit type: Established : 1940 Reason [...] mm Hg. She underwent cardiac cath at [place] which showed non obstructive CAD. He kidney [...] mg IntraVENous Once Jessica David APRN - DESULPHURIZER OPERATOR sodium chloride 0.9 % bolus 500 mL [...] Observed: 12/22/2023 11:10 AM Status: F Source: [facility] Patient Name: BRIANNE CALL : 1940 [facility]#: [id number] Exam Date/Time: 12/12/2023 10:40 Procedure: CT ANGIOGRAM [...] 12/22/2023 11:10 AM EDT --------ORIGINAL REPORT -------- [facility] Cardiovascular CTA Indication: 83 year-old woman with severe aortic stenosis, being evaluated for transcatheter aortic valve implantation. Technique: Computed tomography of the heart, thoracoabdominal aorta, and iliofemoral system was performed using a [employer] Aquilion One 320 detector scanner. Images were [...] VELEZ MEGGAN Reason For Exam: aortic stenosis [facility] Cardiovascular CTA Indication: 83 year-old woman with severe aortic stenosis, being evaluated for transcatheter aortic valve implantation. Technique: Computed tomography of the heart, thoracoabdominal aorta, and iliofemoral system was performed using a [employer] Aquilion One 320 detector scanner. Images were [...] Observed: 12/21/2023 2:39 PM Status: COMPLETED Source: [facility] Pre TAVR phone call placed. Reviewed, procedure, instructions and meds. Confirmed Eliquis, and Dye Allergy Prep med instructions. Pt verbalizes understanding. Pt knows to call [phone] with any concerns. Teofilo Velez CNP notified for prep for procedure orders. Diagnosis: Procedure being done: TF TAVR Date/time of procedure: 12/25/2023 @ 9:15 am Surgeon: Dr. Huffman 2nd surgeon: Dr. Olsen Admission type: To be admitted Anesthesia: MAC Completed: H&P/BNP/CBC/CMP/CXR/EKG Date completed: [facility] 12/19/23, 12/12/23 Additional orders Dye Allergy Prep meds 36 Observed: 12/21/2023 2:28 PM Status: COMPLETED Source: [facility] Patient has stage 3 b- 4 CKD , stable compared to previous. OK to proceed. 36 Observed: 12/21/2023 11:20 AM Status: COMPLETED Source: [facility] BMP received, reviewed, WHIT farah, Creat 1.9 GFR 27. Teofilo David DESULPHURIZER OPERATOR to review. 36 Observed: 12/21/2023 8:58 AM Status: COMPLETED Source: [facility] I called [facility] for BM P, left message w/ OP lab to fax results. ANESTHESIA NOTE Observed: 12/15/2023 12:21 PM Status: COMPLETED Source: [facility] Patient: Brianne Call Procedure Information Date/Time: 12/25/23 0915 Procedures: TRANSCATHETER AORTIC VALVE REPLACEMENT, TRANSTHORACIC ECHOCARDIOGRAM TRANSCATHETER AORTIC VALVE REPLACEMENT, TRANSTHORACIC ECHOCARDIOGRAM (Chest) Location: [facility] Operating Room Surgeons: Harjeet Huffman MD; Bhavna [...] checklist complete Records in media Carolina Waldron, COMMISSARY PRODUCTION SUPERVISOR - DESULPHURIZER OPERATOR JOB Screening Labs: Lab Results Component Value [...] Observed: 12/15/2023 9:03 AM Status: COMPLETED [facility] Lab order faxed to [facility] [phone]/Confirmed 36 Observed: 12/14/2023 2:00 PM Status: COMPLETED Source: [facility] [employer] [facility] Per Teofilo David DNP, will get BMP done on 12/19/23 in [place], RX for Prednisone pended. [employer] to fax lab order to [facility], pt notified via phone and verbalizes understanding. 36 Observed: 12/13/2023 12:05 PM Status: COMPLETED [facility] Pt returned my call, no furt her issues w/ itching/hives from contrast allergy. I reviewed need for BMP and Prednisone before TAVR. Of note, pt was unaware of any renal insufficiency in the past. Will discuss timing of BMP w/ Teofilo David DNP. 36 Observed: 12/13/2023 11:29 AM Status: COMPLETED Source: [facility] Per Teofilo David DNP, pt had al lergic reaction to CTA contrast yesterday, and pt with increase in Creat. Plan for Dye Allergy Prep meds will be needed, and repeat BMP. I left vm message for pt to return call. 36 Observed: 12/08/2023 3:40 PM Status: COMPLETED Source: [facility] Approved [id number] 12/24-12/26/23 Calendars and Snapboard updated. 36 Observed: 12/08/2023 9:01 AM Status: COMPLETED Source: [facility] Messaged central scheduling through secure chat and [facility] 36 Observed: 12/07/2023 2:39 PM Status: COMPLETED Source: [facility] Jay Currie RT is out of office until 12/11/23. I spoke w/ [facility] Radiology Dept, I was sent to a rag room supervisor , I left vm message re: add on CTA @ [facility] for 12/11. 36 Observed: 12/07/2023 9:07 AM Status: COMPLETED Source: [facility] I spoke w/ Katherin in [facility], re: [facility] IV hydration, having difficulty with adding pt, she will speak w/ coworker and call me back. I spoke w/ Jennifer RN in [facility], they have pt on their schedule. I spoke w/ patient, reviewed NPO 4 hrs prior, all questions answered. I also spoke w/ Rossana in [facility], CTA needs moved to [facility]. 36 Observed: 12/06/2023 2:45 PM Status: COMPLETED Source: [facility] Hydration orders faxed,confi rmed and scanned under Media Submitted auth request on [facility]. Pending # [id number] On all 3 calendars. 36 Observed: 12/06/2023 2:00 PM Status: COMPLETED Source: [facility] I spoke w/ pt and dtr [...] Observed: 12/06/2023 1:34 PM Status: COMPLETED Source: [facility] Message reviewed. Recommend CTA with IV hydration. Can get pre procedure labs at time of CTA. 36 Observed: 12/06/2023 11:37 AM Status: COMPLETED Source: [facility] Patient returned my call. No issues with Right radial cath site, cath performed by Dr. Garces in [place], I called to have images pushed to PACS and fax report w/ recent labs. Labs reviewed from [place], drawn 11/28/23 GFR 31 prior to cath. Teofilo Velez CNP notified to review and advise if IV hydration is needed. 36 Observed: 12/06/2023 9:58 AM Status: COMPLETED Source: [facility] I spoke w/ Medina in Dr. Christiano christensen's office, confirmed [facility] completed, she will push images to PACS and fax report & lab results. I left vm message for melanie Sesay to review pt status, discuss next steps BMP/CTA. ALLERGIES No Allergies Records Found ENCOUNTERS ADMIT/DISCHARGE ACCOUNT NUMBER ADMITTING ENCOUNTER CLASS LOC ATION SOURCE 01/04/2024/ 4 [id number] Ambulatory Buildin [id number] [facility] 12/25/2023/ 4 [id number] HARJEET HUFFMAN Inpatient Encounter Buildin [id number]: [facility] T1-114Bed: T1114 A [facility] 12/12/2023/ 4 [id number] Ambulatory Buildin [id number] [facility] PAYERS ENCOUNTER GUARANTOR PAYER SUBSCRIBER SOURCE 01/04/2024 Primary Insurance:[employer] MEDICAREPolicy Number: [id number] Date:[id number] Name:Medicare HMO BRIANNE Wells YAMINIOB: [id number] [id number] [place] [address] 12/25/2023 Primary Insurance:[employer] MEDICAREPolicy Number: [id number] Date:6450-29-03Yivh Name:Medicare HMO BRIANNE Wells YAMINIOB: [id number] [facility] [address] [place] [id number] [place] [address] 12/12/2023 Primary Insurance:[employer] MEDICAREPolicy Number: [id number] Date:9760-56-87Oxzg Name:Medicare HMO BRIANNE Wells FELICIANO: [id number] [facility] [address] [place] [id number] [place] [address]
[2024-12-17 08:41] LABS: Hematocrit 45.2 % (37-47); Hemoglobin 14.3 g/dL (12.0-15.0); Immature Granulocytes Count 0.040 X10^3/uL (0.0-0.0); Mean Corp Hgb Conc 31.6 g/dL (32-36); Mean Corpuscular Volume 98.0 fL (81-99); Mean Platelet Vol. 12.7 fl (6.2-12.0); NRBC Flagged by Analyzer 0 % (0-5); Platelet Count 216 K/mm3 (150-450); RBC Distribution Width CV 14.4 % (11.6-14.6); RBC Distribution Width SD 52.1 fl (35.1-43.9); Red Blood Count 4.61 M/mm3 (4.2-5.4); White Blood Count 7.2 K/mm3 (4.4-11.0)
[2024-12-17 09:08] LABS: Anion Gap 12 (5-15); BUN 32 mg/dL (4-19); BUN/Creat Ratio 18.8 RATIO (10-20); Calcium,Total 9.4 mg/dL (7.6-11.0); Carbon Dioxide 25.6 mmol/L (21.0-32.0); Chloride 102 mmol/L (98-108); Glucose 89 mg/dL (70-99); Potassium 4.2 mmol/L (3.3-5.1)
== END ==
LOC: OLS.WHLEAS 05:25
PROVIDERS: PCP Family Medicine Geriatric Medicine; Referring Provider Internal Medicine; Visit Provider Internal Medicine
DX: R48.8 Other symbolic dysfunctions (principal); I63.542 Cerebral infarction due to unspecified occlusion or stenosis of left cerebellar artery; I69.320 Aphasia following cerebral infarction; I69.351 Hemiplegia and hemiparesis following cerebral infarction affecting right dominant side
CPT/HCPCS: 36415; 80048; 85025

== ENCOUNTER → 2024-12-30 05:00 | Outpatient (REF) | payer MEDICARE, MEDICAID, SELFPAY ==
[2024-12-30 08:42] LABS: AST(SGOT) 42 U/L (<=31); Alanine Aminotransfer ALT/SGPT 64 U/L (<=34); Albumin, Serum 3.4 g/dL (3.4-4.8); Alkaline Phosphatase 119 U/L (35-104); Bilirubin, Direct 0.62 mg/dL (0.00-0.30); Cholesterol 109 mg/dL (<=200); Globulin 3.6 g/dL (2.2-4.2); Low Density Lipoprotein Calc. 52 mg/dL; Triglycerides 127 mg/dL; Very Low Density Lipoprotein 25 mg/dL (5-40); cholesterol:hdl ratio screen 3.48
== END ==
LOC: OLS.WHLEAS 05:00
PROVIDERS: PCP Family Medicine Geriatric Medicine; Visit Provider Internal Medicine
DX: N18.31 Chronic kidney disease, stage 3a (principal)
CPT/HCPCS: 36415; 80061; 80076; 83036

== ENCOUNTER → 2025-01-06 04:25 | Outpatient (REF) | payer MEDICARE, SELFPAY ==
[2025-01-06 07:27] LABS: AST(SGOT) 28 U/L (<=31); Alanine Aminotransfer ALT/SGPT 18 U/L (<=34); Albumin, Serum 3.6 g/dL (3.4-4.8); Alkaline Phosphatase 94 U/L (35-104); Bilirubin, Direct 0.52 mg/dL (0.00-0.30); Globulin 3.2 g/dL (2.2-4.2)
== END ==
LOC: OLS.WHLEAS 04:25
PROVIDERS: PCP Family Medicine Geriatric Medicine; Referring Provider Internal Medicine; Visit Provider Internal Medicine
DX: I63.542 Cerebral infarction due to unspecified occlusion or stenosis of left cerebellar artery (principal); I69.320 Aphasia following cerebral infarction; I69.351 Hemiplegia and hemiparesis following cerebral infarction affecting right dominant side; R00.1 Bradycardia, unspecified
CPT/HCPCS: 36415; 80076; 84443

== ENCOUNTER → 2025-01-14 04:00 | Outpatient (REF) | payer MEDICARE, MEDICAID, SELFPAY ==
[2025-01-14 08:04] LABS: Hematocrit 41.8 % (37-47); Hemoglobin 13.7 g/dL (12.0-15.0); Immature Granulocytes Count 0.030 X10^3/uL (0.0-0.0); Mean Corp Hgb Conc 32.8 g/dL (32-36); Mean Corpuscular Volume 96.1 fL (81-99); Mean Platelet Vol. 12.8 fl (6.2-12.0); NRBC Flagged by Analyzer 0 % (0-5); Platelet Count 209 K/mm3 (150-450); RBC Distribution Width CV 14.2 % (11.6-14.6); RBC Distribution Width SD 50.0 fl (35.1-43.9); Red Blood Count 4.35 M/mm3 (4.2-5.4); White Blood Count 6.5 K/mm3 (4.4-11.0)
[2025-01-14 08:18] LABS: Anion Gap 12 (5-15); BUN 27 mg/dL (4-19); BUN/Creat Ratio 16.3 RATIO (10-20); Calcium,Total 9.4 mg/dL (7.6-11.0); Carbon Dioxide 25.9 mmol/L (21.0-32.0); Chloride 101 mmol/L (98-108); Glucose 92 mg/dL (70-99); Potassium 4.0 mmol/L (3.3-5.1)
== END ==
LOC: OLS.WHLEAS 04:00
PROVIDERS: PCP Family Medicine Geriatric Medicine; Referring Provider Internal Medicine; Visit Provider Internal Medicine
DX: I63.542 Cerebral infarction due to unspecified occlusion or stenosis of left cerebellar artery (principal); I69.320 Aphasia following cerebral infarction; I69.351 Hemiplegia and hemiparesis following cerebral infarction affecting right dominant side
CPT/HCPCS: 36415; 80048; 85025

== ENCOUNTER → 2025-01-29 05:00 | Outpatient (REF) | payer MEDICARE, MEDICAID, SELFPAY ==
[2025-01-29 08:13] LABS: Vitamin D,25 Hydroxy 90.0 ng/mL (30-100)
== END ==
LOC: OLS.WHLEAS 05:00
PROVIDERS: PCP Family Medicine Geriatric Medicine; Visit Provider Internal Medicine
DX: E55.9 Vitamin D deficiency, unspecified (principal)
CPT/HCPCS: 36415; 82306

== ENCOUNTER → 2025-02-11 05:00 | Outpatient (REF) | payer MEDICARE, MEDICAID, SELFPAY ==
--- OUTSIDE RECORDS SUMMARY | 2025-02-11 04:11 | XMS RPT_ITS | CCD ---
Author Organization [facility] ion Partnership [facility] Care Team Providers Care Milieu Manager Name Role Phone Lucrecia Paige N Unavailable [...] Admitting Unavailable HARJEET HUFFMAN Attending Unavailable KURTIS, SOCTT-CHI Primary Care Unavailable THADDEUS MCKEON Attending Unavailable [...] MD Attending Provider Unavailagustin Hull MD, Dr. Sctot Sabillon Primary Care Provider [phone] Daniel GUNN, Joe Attending Provider Unavailagustin Sanchez MD, Dr. Diaz Attending Provider [phone] Kurtis GUNN, Dr. Scott Sabillon Primary Care Provider Daniel GUNN, Joe Attending Provider Unavailagustin Sanchez MD, Joe Referring Provider Unavailagustin Hull MD, Dr. Scott Sabillon Primary Care Provider Daniel GUNN, Joe Attending Provider Unavailagustin Sanchez MD, Dr. Diaz Attending Provider [phone] Sara Cormier Attending Provider Kurtis GUNN, Dr. Scott Sabillon Primary Care Provider Daniel GUNN, Joe Attending Provider Unavailagustin Hull MD, Dr. Scott Sabillon Primary Care Provider [phone] Joe Sanchez MD Attending Provider Unavailagustin Sanchez MD, Joe Referring Provider Unavailagustin Hull MD, Dr. Scott Sabillon Primary Care Physician Joe Sanchez MD Attending Physician Unavail able Sara Cormier Attending Physician Daniel GUNN, Dr. Diaz Attending Physician [phone] Oleghe OLS, Efewongbe Referring Unavailabl e Oleghe OLS, Efewongbe Attending Unavailabl e Kurtis, [facility] Primary Care Unavailable Oleghe OLS, Efewongbe Attending Unavailabl e Kurtis, [facility] Primary Care Unavailable Oleghe OLS, Efewongbe Referring Unavailabl e Oleghe OLS, Efewongbe Attending Unavailabl e Kurtis, [facility] Primary Care Unavailable Oleghe OLS, Efewongbe Attending Unavailabl e Kurtis, [facility] Primary Care Unavailable Oleghe OLS, Efewongbe Attending [...] Unavailable Oleghe OLS, Efewongbe Attending Unavailabl e Oleghe, Efewongbe Attending Unavailable Kurtis, Scott Chi Primary Care Unavailable Oleghe OLS, Efewongbe Referring Unavailabl e Oleghe OLS, Efewongbe Attending Unavailabl e Kurtis, Scott Chi Primary Care Unavailable Kurtis, Scott Chi Primary Care Unavailable Oleghe, Efewongbe Attending Unavailable Kurtis, Scott Chi Primary Care Unavailable Eriberto Lugo Attending Unavailable Krutis, Scott Chi Primary Care Unavailable Suzan Garces Attending Unavailable Kurtis, Scott Chi Referring Unavailable Mónica Sterling Attending Unavail able Kurtis, Scott Chi Primary Care Unavailable Kurtis, Scott Chi Referring Unavailable Tickton MEDICATION COORDINATOR, Sara Attending Unavailable Kurtis, Scott Chi Primary Care Unavailable [place]ton MEDICATION COORDINATOR, Sara Attending Unavailable Kurtis, Scott Chi Primary Care Unavailable Oleghe, Efewongbe Attending Unavailable Kurtis, Scott Chi Primary Care Unavailable [place]ickton MEDICATION COORDINATOR, Sara Attending Unavailable Kurtis, Scott Chi Primary Care Unavailable Oleghe, Efewongbe Attending Unavailable Kurtis, Scott Chi Primary Care Unavailable Oleghe, Efewongbe Attending Unavailable Kurtis, Scott Chi Primary Care Unavailable Tickton MEDICATION COORDINATOR, Sara Attending Unavailable Kurtis, Scott Chi Primary Care Unavailable Kurtis, Scott Chi Primary Care Unavailable [place]ton MEDICATION COORDINATOR, Sara Attending Unavailable Donovan MEDICATION COORDINATOR, Sara Attending Unavailable Kurtis, Scott Chi Referring Unavailable [...] [LANDON Inhibitors] drug allergy 11-06-19 16 Other [facility] Work Phone: (15 sources) Lisinopril Drug Allergy 03-04-20 21 [facility] (17 sources) Lisinopril Propensity to adverse reactions 11-14-19 24 [facility] (17 sources) sacubitril Drug Allergy 11-14-19 24 [facility] (17 sources) Valsartan Propensity to adverse reactions 11-14-19 24 [facility] (14 sources) Iodinated Contrast Media Propensity to adverse reactions 12-12-19 24 [facility] (10 sources) dapagliflozin Drug Allergy 02-07-20 24 [facility] (10 sources) sacubitril Drug Allergy 02-07-20 cough [facility] (10 sources) Triiodobenzoic Acids Allergy to substance 02-07-20 Hives [facility] Comment on above: hives, red face and itching (10 sources) valsartan Drug Allergy 02-07-20 cough [facility] (1 source) dapagliflozin Drug Allergy 01-14-20 [facility] (1 source) Lisinopril Drug Allergy 01-14-20 [facility] (1 source) sacubitril Drug Allergy 01-14-20 [facility] (1 source) valsartan Drug Allergy 01-14-20 [facility] (1 source) Iodinated Contrast Media Drug allergy (disorder) 01-14-20 [facility] Rep[facility] Medications Current Medications Medication Drug Class(es) Dates Sig (Normalized) Sig (Original) apixaban 5 mg oral tablet (20 sources) Factor Xa Inhibitor Start: 09-07-2017 End: 12-26-2023 take 1 tablet by mouth twice daily atorvastatin 40 mg oral tablet (10 sources) HMG-CoA Reductase Inhibitor Start: 01-10-2024 take 1 tablet by mouth at bedtime dapagliflozin 10 mg oral tablet (20 sources) Sodium-Glucose Cotransporter 2 Inhibitor Start: 11-08-2023 End: 12-26-2023 take 1 tablet by mouth once daily febuxostat 40 mg oral tablet (20 sources) Xanthine Oxidase Inhibitor Start: 02-02-2021 End: 12-26-2023 take 1 tablet by mouth once daily 2 ml furosemide 10 mg/ml injection (20 sources) Loop Diuretic Start: 12-26-2023 40 mg, IntraVENous, Once, On Mon12/26/23 at 0845, For 1 dose Start: 11-08-2023 End: 12-26-2023 take 1 tablet by mouth once daily pantoprazole 40 mg delayed release oral tablet (20 sources) Proton Pump Inhibitor Start: 02-02-2021 End: 12-26-2023 take 1 tablet by mouth once daily Start: 11-06-2015 End: 11-10-2015 take 1 tablet by mouth twice daily PROTONIX 40 MG SOLR One tablet by mouth twice daily PANTOPRAZOLE SODIUM [id number] Gerald Barragan MD potassium chloride 20 meq extended release oral tablet (20 sources) Start: 02-07-2024 take 1 tablet by keenan th once daily Start: 10-06-2023 End: 11-08-2023 take 1 tablet [...] in error) sertraline 50 mg oral tablet (10 sources) Serotonin Reuptake Inhibitor Start: 02-07-2024 take 1 tablet by mouth once daily spironolactone 25 mg oral tablet (20 sources) Aldosterone Antagonist Start: 11-08-2023 End: 12-26-2023 take 1 tablet by mouth once daily Start: 10-06-2023 End: 11-08-2023 Spironolactone 25 mg [...] aspirin 81 mg delayed release oral tablet (19 sources) Platelet Aggregation Inhibitor, Nonsteroidal Anti-inflammatory Drug [...] CAPS One tablet by mouth daily CELECOXIB [id number] Mónica Gutierrez PA-C diphenhydrAMINE hydrochloride 25 mg oral tablet (2 sources) Histamine-1 Receptor Antagonist Start: 12-25-2023 End: 12-25-2023 take 50 mg by mouth once 50 mg, Oral, Once, On Mon12/25/23 at 0730, For 1 dose, Preprocedure docusate sodium 50 mg / sennosides, fci 8.6 mg oral tablet (15 sources) Start: 12-27-2017 End: 10-06-2023 take 1 [...] mL NS hydroCHLOROthiazide 25 mg oral tablet (18 sources) Thiazide Diuretic Start: 02-02-2021 End: 11-21-2023 [...] 110, For 1 dose, Cheri Wong: crow overrsigifredo imiquimod 50 mg/ml topical cream (15 sources) Start: 02-02-2021 End: 03-04-2021 Imiquimod 5 [...] 2017 1:49pm meloxicam 15 mg oral tablet (15 sources) Nonsteroidal Anti-inflammatory Drug Start: 05-01-2015 End: 05-02-2015 take 1 tablet by mouth once daily Meloxicam 15 MG tablet Discontinued 15 mg PO DAILY May 01, 2015 1:00am May 02, 2015 12:14pm metoprolol tartrate 25 mg oral tablet (20 sources) beta-Adrenergic Vaugnh Start: 12-25-2023 End: 12-26-2023 Start: 07-10-2017 Start: 07-10-2017 take 12.5 mg by mout [...] Nasal Decolonization ondansetron 4 mg oral tablet (15 sources) Serotonin-3 Receptor Antagonist Start: 12-27-2017 End: 01-03-2018 take 1 tablet by mouth every eight hours as needed for nausea Ondansetron Hcl 4 MG tablet Discontinued 4 mg PO EVERY 8 HOURS NEEDED as needed for Nausea/Vomiting 20 0 December 27, 2017 7:16am January 02, 2018 12:00am January 03, 2018 12:08am oxyCODONE hydrochloride 5 mg oral tablet (15 sources) Opioid Agonist Start: 12-27-2017 End: 01-03-2018 [...] Onset: 12-07-2023 12-07-2023 Chronic Acute cerebrovascular disease (2 sources) 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; Translations: [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] Onset: 01-23-2025 Chronic Cardiac dysrhythmias (20 sources) Atrial fibrillation; Translations: [Unspecified atrial fibrillation] Onset: 03-20-2017 12-28-2017 Chronic Cardiac dysrhythmias (20 sources) Drug-induced bradycardia; Translations: [Bradycardia, unspecified] Onset: 11-21-2023 11-21-2023 Episodic Chronic kidney disease (7 sources) Chronic kidney disease stage 3A ; Translations: [Stage 3a chronic kidney disease (HCC)] Onset: 01-03-2024 01-03-2024 Chronic Chronic kidney disease (4 sources) Chronic kidney disease; Translations: [Chronic kidney disease, stage 3a (HCC)] Onset: 01-03-2024 Congestive heart failure; nonhypertensive (20 sources) Left heart failure; Translations: [Left ventricular failure, unspecified] Onset: 01-03-2024 01-03-2024 Chronic Disorders of lipid metabolism (10 sources) Hyperlipidemia; Translations: [Hyperlipidemia, unspecified] 10-06-2023 Chronic Essential hypertension (20 sources) Hypertensive disorder; Translations: [Essential (primary) hypertension] Onset: 11-06-2015 11-06-2015 Chronic Heart valve disorders (20 sources) Nonrheumatic aortic (valve) stenosis; Translations: [History of aortic valve replacement] Onset: 11-06-2015 11-06-2015 Chronic Comment on above: #25 [employer] Porcin e Valve 01/22/2013 @ [place] per Dr. Rivero Late effects of cerebrovascular disease (8 sources) Aphasia following cerebral infarction; Translations: [Hemiplegia and hemiparesis following cerebral infarction affecting right dominant side] Onset: 03-27-2024 Chronic Nutritional deficiencies (1 source) Vitamin D deficiency, unspecified; Translations: [Vitamin D deficiency, unspecified] Onset: 01-23-2025 Chronic Occlusion or stenosis of precerebral arteries (10 sources) Carotid artery stenosis; Translations: [Occlusion and stenosis of unspecified carotid artery] 01-05-2024 Chronic Osteoarthritis (20 sources) Osteoarthritis of knee; Translations: [Arthritis] Onset: 04-07-2016 04-14-2016 Chronic Other aftercare (10 sources) Long-term current use of anticoagulant; Translations: [long term care social worker (current) use of anticoagulants] 11-22-2023 Episodic Other and ill-defined heart disease (1 source) Left ventricular cardiac dysfunction; Translations: [Heart disease, unspecified] 12-05-2023 Chronic Other and ill-defined heart disease (10 sources) Left ventricular hypertrophy; Translations: [Cardiomegaly] 10-06-2023 Chronic Other gastrointestinal disorders (10 sources) Occult blood in stools; Translations: [Other fecal abnormalities] 01-18-2024 Episodic Other lower respiratory disease (16 sources) Dyspnea on exertion; Translations: [Other forms of dyspnea] Onset: 12-29-2016 12-29-2016 Episodic Other lower respiratory disease (10 sources) Dyspnea; Translations: [Shortness of breath] 11-09-2023 Episodic Other nervous system disorders (2 sources) Other symbolic dysfunctions; Translations: [Other symbolic dysfunctions] Onset: 01-23-2025 Episodic Other non-epithelial cancer of skin (15 sources) History of malignant neoplasm of skin; Translations: [Personal history of other malignant neoplasm of skin] 02-04-2021 Episodic Other nutritional; endocrine; and metabolic disorders (12 sources) Body mass index (BMI) 38.0-38.9, adult; Translations: [Body mass index (BMI) 40.0-44.9, adult] Onset: 11-06-2015 11-10-2015 Chronic Other nutritional; endocrine; and metabolic disorders (10 sources) Morbid obesity; Translations: [Morbid (severe) obesity due to excess calories] 10-06-2023 Chronic Other nutritional; endocrine; and metabolic disorders (10 sources) Obesity; Translations: [Obesity, unspecified] 11-08-2023 Chronic Other nutritional; endocrine; and metabolic disorders (1 source) Obesity, unspecified; Translations: [Obesity, unspecified] Onset: 03-28-2024 Chronic Other skin disorders (15 sources) Actinic keratosis; Translations: [Actinic keratosis] 02-18-2021 Episodic Comment on above: 8 mm actinic lesion nasal tip 8 mm actinic lesion nasal dorsumscattered areas of actinic damage cheeks Residual codes; unclassified (15 sources) History of cardiac catheterization; Translations: [Other specified postprocedural states] 12-28-2017 Episodic Comment on above: 11/03/[address] Jeyson sánchez @ [facility], and 01/18/2013 per Kahlil Burgess Residual codes; unclassified (10 sources) Altered mental status; Translations: [Altered mental [...] Classification Problem Date Documented Da te Episodic/Chronic Complication of device; implant or graft (20 sources) Prosthetic aortic valve stenosis; Translations: [Stenosis of other cardiac prosthetic devices, implants and grafts, initial encounter] Onset: 11-16-2023 11-16-2023 Episodic E Codes: Adverse effects of medical drugs (17 sources) Contrast media adverse reaction; Translations: [Adverse effect of diagnostic agents, initial encounter] Onset: 11-21-2023 12-12-2023 Episodic Other aftercare (18 sources) Polypharmacy ; Translations: [Other intermodal 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 operator 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 driver (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) drug therapy] Onset: 11-21-2023 11-21-2023 Episodic Other aftercare (2 sources) Other half-way (current) drug therapy; Translations: [Other half-way (current) drug therapy] Onset: 11-21-2023 Episodic Other non-traumatic joint disorders (9 sources) Knee pain; Translations: [Pain in right knee] Onset: 04-07-2016 04-07-2016 Episodic Residual codes; unclassified (18 sources) Poor short-term memory ; Translations: [Other amnesia] Onset: 11-21-2023 11-21-2023 Episodic Residual codes; unclassified (2 sources) Other amnesia; Translations: [Other amnesia] Onset: 11-21-2023 Episodic Unclassified (9 sources) Abnormal findings on diagnostic imaging of heart and coronary circulation; Translations: [Abnormal findings on diagnostic imaging of heart and coronary circulation] Onset: 11-06-2015 11-06-2015 Episodic Urinary tract infections (1 source) Urinary tract infection, site not specified; Translations: [Urinary tract infection, site not specified] Onset: 03-27-2024 Episodic Results Test Name Value Interpretation Reference Range Facility Cardiology Visit Reporton Cardiology Visit Report [facility] [address] [place], [place] [address] OFFICE VISIT Date of Service: 01/13/25 MR#: [id number] Acct: [id number] Name: BRIANNE CALL Rep #: [id number] : 1940 Provider: ALBINA martins Age/Sex: 84/F Location: [facility] Status: Signed HPI HPI History of Present Illness Details: This is an 84-year-old female who presents to the office today for cardiovascular follow-up visit. She has history of atrial fibrillation, dyslipidemia, nonischemic cardiomyopathy and aortic valve stenosis status post TAVR with valve in valve. She currently lives at [facility]. From a cardiac standpoint, the patient is doing well. She presents to the office today in a wheelchair. She denies any palpitations, chest pain, pressure or heaviness. She denies SOB, Orthopnea, and PND. She does not have bleeding issues; no blood in urine, stool, or nosebleeds. She denies any decrease in energy level, myalgias, or claudication. She does not have edema, or sudden weight gain. She denies lightheadedness, dizziness, syncopal or near syncopal episodes, and headaches. Intake Vital Signs 02/07/24 08:45 01/13/25 10:41 Height 5 ft 2 in 5 ft 2 in Weight: 244 lb BMI 44.6 BP 143/77 H Blood Pressure Location Lt brachial Position Sitting Respiration 18 Pulse 46 L Pulse Source NIBP Pulse Oximetry (%) 93 Oxygen Delivery Method room air Intake Visit Reasons: PER [facility]/LOW HEART RATES Helper Coordinator Required: No Is patient in pain?: No Allergies Iodinated Contrast Media Allergy (Intermediate, Verified 01/13/25 12:46) Hives LANDON Inhibitors Adverse Reaction (Intermediate, Verified 01/13/25 12:46) Other dapagliflozin (From Farxiga) Adverse Reaction (Intermediate, Verified 01/13/25 12:46) cough sacubitril (From Entresto) Adverse Reaction (Intermediate, Verified 01/13/25 12:46) cough valsartan (From Entresto) Adverse Reaction (Intermediate, Verified 01/13/25 12:46) cough lisinopril Adverse Reaction (Verified 01/13/25 12:46) COUGH Medications ???Medication ???Instructions ???Recorded ???Confirmed ???Type pantoprazole 40 mg tablet,delayed 40 mg PO DAILY 02/02/21 01/13/25 History release dapagliflozin propanediol 10 mg 10 mg PO DAILY #90 tabs 11/08/23 1 Rx tablet (Farxiga) spironolactone 25 mg tablet 25 mg PO DAILY #90 tabs 11/08/23 0 07/29/24 Rx furosemide 40 mg tablet (Lasix) 40 mg PO DAILY #30 tabs 11/10/23 0 07/29/24 Rx atorvastatin 40 mg tablet 40 mg PO QHS #0 tabs 01/10/2412/19 Rx acetaminophen 325 mg tablet 650 mg PO Q4H PRN 01/13/25 5 History apixaban 2.5 mg tablet (Eliquis) 2.5 mg PO BID 01/13/25 01/13/25 Hi story ergocalciferol (vitamin D2) 1,250 50,000 unit PO QWEEK 01/13/25 History mcg (50,000 unit) capsule (Vitamin D2) famotidine 20 mg tablet 20 mg PO QDAY PRN 01/13/25 5 History melatonin 3 mg tablet 3 mg PO QHS 01/13/25 01/13/25 Hist ory metoprolol succinate 25 mg 12.5 mg PO QDAY 01/13/25 01/13/25 History tablet,extended release 24 hr ondansetron 4 mg disintegrating 4 mg PO Q4H PRN PRN 01/13/2501/13 History tablet potassium chloride 20 mEq 40 meq PO QDAY 01/13/25 01/13/25 H istory tablet,extended release(part/cryst) sertraline 100 mg tablet 100 mg PO QDAY 01/13/25 01/13/25 H istory Ejection fraction %: 30 (30-35) Have you fallen in the past year?: Yes PFSH Medical History Atrial fibrillation Osteoarthritis Chronic diastolic (congestive) heart failure Vitamin D deficiency Hyperlipidemia GERD (gastroesophageal reflux disease) Chronic kidney disease, stage 3a Hypokalemia Morbid obesity Severe aortic stenosis LVH (left ventricular hypertrophy) HFrEF (heart failure with reduced ejection fraction) ALONSO (dyspnea on exertion) Actinic keratosis History of skin cancer Pneumonia Gout Cataracts, bilateral Arthritis Encounter for preprocedural cardiovascular examination New onset atrial fibrillation ( 08/2017) Hx of aortic valve stenosis Legionella pneumonia Pancreatitis Hypertension Gastric ulcer Surgical History History of cataract removal with insertion of prosthetic lens History of aortic valve replacement History of appendectomy History of hysterectomy History of right and left heart catheterization History of left heart catheterization H/O right heart catheterization Family History Father negative for CAD suspected ASD or VSD Mother Acute kidney failure Other Arthritis Hypertension Skin cancer Social History jadon (more content not included)... Normal [facility] Absolute lymphocyte countOrd ered By: Joe Sanchez on 12-17-2024 Lymphocytes Auto (Unsp spec) [#/Vol] 1.63 10*3/uL 0.83-4.51 [facility] Absolute neutrophil countOrd ered By: Joe Sanchez on 12-17-2024 Neutrophils (Bld) [#/Vol] 4.7 10*3/uL 2.0-7.7 [facility] Anion gap in Serum or Plasma Ordered By: Joe Sanchez on 12-17-2024 Anion gap [Moles/Vol] 12 mmol/L 5-15 [facility] Automated lymphocyte count a s percentage of total leukocytesOrdered By: Joe Sanchez on 12-17-2024 Lymphocytes/100 WBC Auto (Unsp spec) 22.5 % 19-41 [facility] BUN/creatinine ratioOrdered By: Joe Sanchez on 12-17-2024 Urea nitrogen/Creatinine [Mass ratio] 18.8 mg/mg 10-20 [facility] Basophil percentageOrdered B y: Joe Sanchez on 12-17-2024 Basophils/100 WBC (Bld) 1.1 % High 0-1 [facility] Carbon dioxide, total [Moles /volume] in Central venous bloodOrdered By: Yudimendocinolynnette Sanchez on 12-17-2024 CO2 [Moles/Vol] 25.6 mmol/L 21.0-32.0 [facility] Chloride assayOrdered By: Lluvia Sanchez on 12-17-2024 Chloride [Moles/Vol] 102 mmol/L 98-108 [facility] Eosinophil percentageOrdered By: claudiomendocinolynnette Sanchez on 12-17-2024 Eosinophils/100 WBC (Bld) 1.8 % 0-5 [facility] Erythrocyte distribution wid th ratioOrdered By: Yudimendocinolynnette Sanchez on 12-17-2024 Erythrocyte distribution width (RBC) [Ratio] 14.4 % 11.6-14.6 [facility] Erythrocyte distribution wid th standard deviationOrdered By: claudiomendocinolynnette Sanchez on 12-17-2024 Erythrocyte distribution width (RBC) [Ratio] 52.1 fl High 35.1-43.9 [facility] Glomerular filtration rate ( GFR) estimation/1.73 sq m using serum, plasma, or whole bOrdered By: Joe Sanchez on 12-17-2024 GFR/1.73 sq M.predicted among non-blacks MDRD (S/P/Bld) [Vol rate/Area] 29 mL/min/{1.73_m2} Low >60 [facility] Comment on above: mL/min/1.73m2 CKD-EP I Creatinine Equation (2020) Hematocrit Auto (Bld) [Volum e fraction]Ordered By: Joe Sanchez on 12-17-2024 Hematocrit (Bld) [Volume fraction] 45.2 % 37-47 [facility] Hemoglobin measurementOrdere d By: Joe Sanchez on 12-17-2024 Hemoglobin (Bld) [Mass/Vol] 14.3 g/dL 12.0-15.0 [facility] Immature granulocytes/100 WB C Auto (Bld)Ordered By: montez Sanchez on 12-17-2024 Immature granulocytes/100 WBC (Bld) 0.600 % 0.0-0.9 [facility] Comment on above: IG% - Immature Granu locytes (promyelocytes, myelocytes and metamyelocytes) > 1% indicates that a LEFT SHIFT is Present. MCV (mean corpuscular volume ) determinationOrdered By: Joe Sanchez on 12-17-2024 MCV (RBC) [Entitic vol] 98.0 fL 81-99 [facility] Mean corpuscular hemoglobin (MCH) determinationOrdered By: Joe Sanchez on 12-17-2024 MCH (RBC) [Entitic mass] 31.0 pg 27.0-32.0 [facility] Mean corpuscular hemoglobin concentration (MCHC) determinationOrdered By: Joe Sanchez on 12-17-2024 MCHC (RBC) [Mass/Vol] 31.6 g/dL Low 32-36 [facility] Mean platelet volume determi nationOrdered By: Joe Sanchez on 12-17-2024 Platelet mean volume (Bld) [Entitic vol] 12.7 fL High 6.2-12.0 [facility] Monocyte percentageOrdered B y: Joe Sanchez on 12-17-2024 Monocytes/100 WBC (Bld) 9.4 % 0-10 [facility] Neutrophil percentageOrdered By: Joe Sanchez on 12-17-2024 Neutrophils/100 WBC (Bld) 64.6 % 47-70 [facility] Nucleated red blood cell per centageOrdered By: Joe Sanchez on 12-17-2024 Nucleated RBC/100 WBC (Bld) [Ratio] 0 % 0-5 [facility] Platelet countOrdered By: Lluvia Sanchez on 12-17-2024 Platelets (Bld) [#/Vol] 216 10*3/uL 150-450 [facility] Potassium measurement (mass/ volume)Ordered By: Joe Sanchez on 12-17-2024 Potassium (Unsp spec) [Mass/Vol] 4.2 mmol/L 3.3-5.1 [facility] RBC Auto (Bld) [#/Vol]Ordere d By: Jeo Sanchez on 12-17-2024 RBC (Bld) [#/Vol] 4.61 10*6/uL 4.2-5.4 [facility] Serum creatinine measurement (mass/volume)Ordered By: Joe Sanchez on 12-17-2024 Creatinine [Mass/Vol] 1.71 mg/dL High 0.70-1.20 [facility] Serum glucose measurement (m ass/volume)Ordered By: Joe Sanchez on 12-17-2024 Glucose [Mass/Vol] 89 mg/dL 70-99 [facility] Serum or plasma calcium leah urement (mass/volume)Ordered By: Joe Sanchez on 12-17-2024 Calcium [Mass/Vol] 9.4 mg/dL 7.6-11.0 [facility] Serum or plasma urea nitroge n measurement (mass/volume)Ordered By: Joe Sanchez on 12-17-2024 Urea nitrogen [Mass/Vol] 32 mg/dL High 4-19 [facility] Sodium levelOrdered By: Yudi Sanchez on 12-17-2024 Sodium [Moles/Vol] 140 mmol/L 133-145 [facility] White blood cell (WBC) count Ordered By: Joe Sanchez on 12-17-2024 WBC (Bld) [#/Vol] 7.2 10*3/uL 4.4-11.0 [facility] Absolute lymphocyte countOrd ered By: Joe Morrisawaismilton on 11-19-2024 Lymphocytes Auto (Unsp spec) [#/Vol] 1.50 10*3/uL 0.83-4.51 [facility] Absolute neutrophil countOrd ered By: Yudimelissalynnette Morrisawaismilton on 11-19-2024 Neutrophils (Bld) [#/Vol] 4.4 10*3/uL 2.0-7.7 [facility] Anion gap in Serum or Plasma Ordered By: Joe Sanchez on 11-19-2024 Anion gap [Moles/Vol] 11 mmol/L 5-15 [facility] Automated lymphocyte count a s percentage of total leukocytesOrdered By: Joe Sanchez on 11-19-2024 Lymphocytes/100 WBC Auto (Unsp spec) 22.4 % 19-41 [facility] BUN/creatinine ratioOrdered By: Joe Sanchez on 11-19-2024 Urea nitrogen/Creatinine [Mass ratio] 14.0 mg/mg 10-20 [facility] Basophil percentageOrdered B y: Joe Morrisawaismilton on 11-19-2024 Basophils/100 WBC (Bld) 1.0 % 0-1 [facility] Carbon dioxide, total [Moles /volume] in Central venous bloodOrdered By: Joe Sanchez on 11-19-2024 CO2 [Moles/Vol] 25.7 mmol/L 21.0-32.0 [facility] Chloride assayOrdered By: Lluvia Sanchez on 11-19-2024 Chloride [Moles/Vol] 101 mmol/L 98-108 [facility] Eosinophil percentageOrdered By: Joe Morrisawaismilton on 11-19-2024 Eosinophils/100 WBC (Bld) 1.6 % 0-5 [facility] Erythrocyte distribution wid th ratioOrdered By: Joe Sanchez on 11-19-2024 Erythrocyte distribution width (RBC) [Ratio] 13.6 % 11.6-14.6 [facility] Erythrocyte distribution wid th standard deviationOrdered By: Joe Sanchez on 11-19-2024 Erythrocyte distribution width (RBC) [Ratio] 48.4 fl High 35.1-43.9 [facility] Glomerular filtration rate ( GFR) estimation/1.73 sq m using serum, plasma, or whole bOrdered By: Joe Sanchez on 11-19-2024 GFR/1.73 sq M.predicted among non-blacks MDRD (S/P/Bld) [Vol rate/Area] 28 mL/min/{1.73_m2} Low >60 [facility] Comment on above: mL/min/1.73m2 CKD-EP I Creatinine Equation (2020) Hematocrit Auto (Bld) [Volum e fraction]Ordered By: Joe Sanchez on 11-19-2024 Hematocrit (Bld) [Volume fraction] 40.8 % 37-47 [facility] Hemoglobin measurementOrdere d By: Joe Sanchez on 11-19-2024 Hemoglobin (Bld) [Mass/Vol] 13.4 g/dL 12.0-15.0 [facility] Immature granulocytes/100 WB C Auto (Bld)Ordered By: Joe Sanchez on 11-19-2024 Immature granulocytes/100 WBC (Bld) 0.400 % 0.0-0.9 [facility] Comment on above: IG% - Immature Granu locytes (promyelocytes, myelocytes and metamyelocytes) > 1% indicates that a LEFT SHIFT is Present. MCV (mean corpuscular volume ) determinationOrdered By: Joe Sanchez on 11-19-2024 MCV (RBC) [Entitic vol] 96.5 fL 81-99 [facility] Mean corpuscular hemoglobin (MCH) determinationOrdered By: Joe Sanchez on 11-19-2024 MCH (RBC) [Entitic mass] 31.7 pg 27.0-32.0 [facility] Mean corpuscular hemoglobin concentration (MCHC) determinationOrdered By: Joe Sanchez on 11-19-2024 MCHC (RBC) [Mass/Vol] 32.8 g/dL 32-36 [facility] Mean platelet volume determi nationOrdered By: Joe Sanchez on 11-19-2024 Platelet mean volume (Bld) [Entitic vol] 11.9 fL 6.2-12.0 [facility] Monocyte percentageOrdered B y: Joe Sanchez on 11-19-2024 Monocytes/100 WBC (Bld) 8.7 % 0-10 [facility] Neutrophil percentageOrdered By: Joe Sanchez on 11-19-2024 Neutrophils/100 WBC (Bld) 65.9 % 47-70 [facility] Nucleated red blood cell per centageOrdered By: Joe Sanchez on 11-19-2024 Nucleated RBC/100 WBC (Bld) [Ratio] 0 % 0-5 [facility] Platelet countOrdered By: Lluvia Sanchez on 11-19-2024 Platelets (Bld) [#/Vol] 230 10*3/uL 150-450 [facility] Potassium measurement (mass/ volume)Ordered By: Joe Sanchez on 11-19-2024 Potassium (Unsp spec) [Mass/Vol] 4.4 mmol/L 3.3-5.1 [facility] Comment on above: Hemolysis present, R esults could be affected. RBC Auto (Bld) [#/Vol]Ordere d By: Joe Sanchez on 11-19-2024 RBC (Bld) [#/Vol] 4.23 10*6/uL 4.2-5.4 [facility] Serum creatinine measurement (mass/volume)Ordered By: Joe Sanchez on 11-19-2024 Creatinine [Mass/Vol] 1.77 mg/dL High 0.70-1.20 [facility] Serum glucose measurement (m ass/volume)Ordered By: Joe Sanchez on 11-19-2024 Glucose [Mass/Vol] 99 mg/dL 70-99 [facility] Serum or plasma calcium leah urement (mass/volume)Ordered By: Joe Sanchez on 11-19-2024 Calcium [Mass/Vol] 9.2 mg/dL 7.6-11.0 [facility] Serum or plasma urea nitroge n measurement (mass/volume)Ordered By: Joe Sanchez on 11-19-2024 Urea nitrogen [Mass/Vol] 25 mg/dL High 4-19 [facility] Sodium levelOrdered By: Yudi Sanchez on 11-19-2024 Sodium [Moles/Vol] 138 mmol/L 133-145 [facility] White blood cell (WBC) count Ordered By: Joe Sanchez on 11-19-2024 WBC (Bld) [#/Vol] 6.7 10*3/uL 4.4-11.0 [facility] Absolute lymphocyte countOrd ered By: Lluviaclaudiokayleigh Arturohans on 10-22-2024 Lymphocytes Auto (Unsp spec) [#/Vol] 1.30 10*3/uL 0.83-4.51 [facility] Absolute neutrophil countOrd ered By: Joe Sanchez on 10-22-2024 Neutrophils (Bld) [#/Vol] 4.4 10*3/uL 2.0-7.7 [facility] Anion gap in Serum or Plasma Ordered By: Lluviaclaudiokayleigh Arturoawaismilton on 10-22-2024 Anion gap [Moles/Vol] 12 mmol/L 5-15 [facility] Automated lymphocyte count a s percentage of total leukocytesOrdered By: Joe Arturoawaismilton on 10-22-2024 Lymphocytes/100 WBC Auto (Unsp spec) 19.9 % 19-41 [facility] BUN/creatinine ratioOrdered By: Lluviaclaudiokayleigh Arturohans on 10-22-2024 Urea nitrogen/Creatinine [Mass ratio] 17.5 mg/mg 10-20 [facility] Basophil percentageOrdered B y: Joe Arturoawaismilton on 10-22-2024 Basophils/100 WBC (Bld) 0.9 % 0-1 [facility] Carbon dioxide, total [Moles /volume] in Central venous bloodOrdered By: Lluviaclaudiomelissalynnette Morrisawaismilton on 10-22-2024 CO2 [Moles/Vol] 26.4 mmol/L 21.0-32.0 [facility] Chloride assayOrdered By: Lluvia claudiokayleigh Morrisawaismilton on 10-22-2024 Chloride [Moles/Vol] 99 mmol/L 98-108 [facility] Eosinophil percentageOrdered By: Joe Morrisawaismilton on 10-22-2024 Eosinophils/100 WBC (Bld) 2.3 % 0-5 [facility] Erythrocyte distribution wid th ratioOrdered By: Joe Sanchez on 10-22-2024 Erythrocyte distribution width (RBC) [Ratio] 13.5 % 11.6-14.6 [facility] Erythrocyte distribution wid th standard deviationOrdered By: Joe Sanchez on 10-22-2024 Erythrocyte distribution width (RBC) [Ratio] 49.2 fl High 35.1-43.9 [facility] Glomerular filtration rate ( GFR) estimation/1.73 sq m using serum, plasma, or whole bOrdered By: Joe Sanchez on 10-22-2024 GFR/1.73 sq M.predicted among non-blacks MDRD (S/P/Bld) [Vol rate/Area] 28 mL/min/{1.73_m2} Low >60 [facility] Comment on above: mL/min/1.73m2 CKD-EP I Creatinine Equation (2020) Hematocrit Auto (Bld) [Volum e fraction]Ordered By: Joe Sanchez on 10-22-2024 Hematocrit (Bld) [Volume fraction] 40.3 % 37-47 [facility] Hemoglobin measurementOrdere d By: Joe Sanchez on 10-22-2024 Hemoglobin (Bld) [Mass/Vol] 13.1 g/dL 12.0-15.0 [facility] Immature granulocytes/100 WB C Auto (Bld)Ordered By: Joe Sanchez on 10-22-2024 Immature granulocytes/100 WBC (Bld) 0.600 % 0.0-0.9 [facility] Comment on above: IG% - Immature Granu locytes (promyelocytes, myelocytes and metamyelocytes) > 1% indicates that a LEFT SHIFT is Present. MCV (mean corpuscular volume ) determinationOrdered By: Joe Sanchez on 10-22-2024 MCV (RBC) [Entitic vol] 98.1 fL 81-99 [facility] Mean corpuscular hemoglobin (MCH) determinationOrdered By: Joe Sanchez 10-22-2024 MCH (RBC) [Entitic mass] 31.9 pg 27.0-32.0 [facility] Mean corpuscular hemoglobin concentration (MCHC) determinationOrdered By: Joe Sanchez on 10-22-2024 MCHC (RBC) [Mass/Vol] 32.5 g/dL 32-36 [facility] Mean platelet volume determi nationOrdered By: Joe Sanchez on 10-22-2024 Platelet mean volume (Bld) [Entitic vol] 12.5 fL High 6.2-12.0 [facility] Monocyte percentageOrdered B y: Joe Sanchez on 10-22-2024 Monocytes/100 WBC (Bld) 9.0 % 0-10 [facility] Neutrophil percentageOrdered By: Joe Sanchez on 10-22-2024 Neutrophils/100 WBC (Bld) 67.3 % 47-70 [facility] Nucleated red blood cell per centageOrdered By: Joe Sanchez on 10-22-2024 Nucleated RBC/100 WBC (Bld) [Ratio] 0 % 0-5 [facility] Platelet countOrdered By: Lluvia Sanchez on 10-22-2024 Platelets (Bld) [#/Vol] 222 10*3/uL 150-450 [facility] Potassium measurement (mass/ volume)Ordered By: Joe Sanchez on 10-22-2024 Potassium (Unsp spec) [Mass/Vol] 4.0 mmol/L 3.3-5.1 [facility] Comment on above: Hemolysis present, R esults could be affected. RBC Auto (Bld) [#/Vol]Ordere d By: Joe Sanchez on 10-22-2024 RBC (Bld) [#/Vol] 4.11 10*6/uL Low 4.2-5.4 [facility] Serum creatinine measurement (mass/volume)Ordered By: Joe Sanchez on 10-22-2024 Creatinine [Mass/Vol] 1.80 mg/dL High 0.70-1.20 [facility] Serum glucose measurement (m ass/volume)Ordered By: Joe Sanchez on 10-22-2024 Glucose [Mass/Vol] 113 mg/dL High 70-99 [facility] Serum or plasma calcium leah urement (mass/volume)Ordered By: Joe Sanchez on 10-22-2024 Calcium [Mass/Vol] 9.2 mg/dL 7.6-11.0 [facility] Serum or plasma urea nitroge n measurement (mass/volume)Ordered By: Joe Sanchez on 10-22-2024 Urea nitrogen [Mass/Vol] 32 mg/dL High 4-19 [facility] Sodium levelOrdered By: Yudi Sanchez on 10-22-2024 Sodium [Moles/Vol] 138 mmol/L 133-145 [facility] White blood cell (WBC) count Ordered By: Joe Sanchez on 10-22-2024 WBC (Bld) [#/Vol] 6.5 10*3/uL 4.4-11.0 [facility] Bilirubin directOrdered By: Joe Sanchez on 10-07-2024 Bilirubin.direct [Mass/Vol] 0.35 mg/dL High 0.00-0.30 [facility] Bilirubin, totalOrdered By: Joe Sanchez on 10-07-2024 Bilirubin [Mass/Vol] 0.93 mg/dL 0.00-1.30 [facility] Calculated very low density lipoprotein (VLDL) cholesterol measurementOrdered By: Joe Sanchez on 10-07-2024 Calculated very low density lipoprotein (VLDL) cholesterol measurement 18 mg/dL 5-40 [facility] Hemoglobin A1c percentageOrd ered By: Joe Sanchez on 10-07-2024 HbA1c (Bld) [Mass fraction] 5.4 % <5.7 [facility] Comment on above: Normal < 5.7 % Predi abetic 5.7 - 6.4 % Diabetic >or= 6.5 % Please note range changes. LDL calc ser/plasOrdered By: Joe Sanchez on 10-07-2024 Cholesterol in LDL [Mass/Vol] 54 mg/dL [facility] Comment on above: Wwmoihlrny=743-038 m g/dL & Higher Lzlw=921 mg/dL or greater Laboratory - Chemistry and C hemistry - challengeOrdered By: Joe Sanchez on 10-07-2024 AST [Catalytic activity/Vol] 21 U/L <32 [facility] Screening total cholesterol/ high density lipoprotein (HDL) cholesterol ratioOrdered By: Joe Sanchez on 10-07-2024 Cholesterol.total/Shannon sterol in HDL [Mass ratio] 2.90 {ratio} [facility] Serum globulin measurementOr dered By: Joe Sanchez on 10-07-2024 Globulin (S) [Mass/Vol] 3.2 g/dL 2.2-4.2 [facility] Serum or plasma alanine kilpatrick otransferase (ALT) measurementOrdered By: Joe Sanchez on 10-07-2024 ALT [Catalytic activity/Vol] U/L <35 [facility] Serum or plasma albumin leah urement (mass/volume)Ordered By: Joe Sanchez 10-07-2024 Albumin [Mass/Vol] 3.3 g/dL Low 3.4-4.8 [facility] Serum or plasma alkaline kirti sphatase measurementOrdered By: Joe Sanchez 10-07-2024 ALP [Catalytic activity/Vol] 64 U/L 35-104 [facility] Serum or plasma cholesterol in HDL measurement (mass/volume)Ordered By: Joe Sanchez 10-07-2024 Cholesterol in HDL [Mass/Vol] 38 mg/dL Low >40 [facility] Comment on above: National Cholesterol Education Program (NCEP) guidelines:<40 mg/dL: Low HDL-cholesterol (major risk factor for CHD)>= 60 mg/dL: High HDL-cholesterol (negative risk factor for CHD)HDL-cholesterol is affected by a number of factors, e.g. smoking, exercise, hormones, sex and age. Serum or plasma cholesterol measurement (mass/volume)Ordered By: Joe Sanchez on 10-07-2024 Cholesterol [Mass/Vol] 111 mg/dL <201 [facility] Comment on above: Cholesterol level, D esirable <200 mg/dLBorderline high cholesterol 200-239 mg/dLHigh cholesterol >=240 mg/dLRecommendations of the NCEP Adult Treatment Panel for the following risk-cutoff thresholds for the [place] population. Total proteinOrdered By: Constantin Sanchez on 10-07-2024 Protein [Mass/Vol] 6.5 g/dL 5.9-8.4 [facility] Triglycerides measurementOrd ered By: Joe Sanchez on 10-07-2024 Triglyceride [Mass/Vol] 92 mg/dL <199 [facility] Comment on above: The drugs N-Acetylcy steine and Metamizole may falsely depress this assay. Normal range: <150 mg/dLBorderline High: 150-199 mg/dLHigh: 200-499 mg/dLVery High: >500 mg/dL Absolute lymphocyte countOrd ered By: Joe Sanchez on 09-24-2024 Lymphocytes Auto (Unsp spec) [#/Vol] 1.76 10*3/uL 0.83-4.51 [facility] Absolute neutrophil countOrd ered By: Joe Sanchez on 09-24-2024 Neutrophils (Bld) [#/Vol] 4.6 10*3/uL 2.0-7.7 [facility] Anion gap in Serum or Plasma Ordered By: Joe Sanchez on 09-24-2024 Anion gap [Moles/Vol] 13 mmol/L 5-15 [facility] Automated lymphocyte count a s percentage of total leukocytesOrdered By: Joe Sanchez on 09-24-2024 Lymphocytes/100 WBC Auto (Unsp spec) 23.7 % 19-41 [facility] BUN/creatinine ratioOrdered By: Joe Sanchez on 09-24-2024 Urea nitrogen/Creatinine [Mass ratio] 15.6 mg/mg 10-20 [facility] Basophil percentageOrdered B y: Joe Sanchez on 09-24-2024 Basophils/100 WBC (Bld) 1.3 % High 0-1 [facility] Carbon dioxide, total [Moles /volume] in Central venous bloodOrdered By: Joe Sanchez on 09-24-2024 CO2 [Moles/Vol] 26.0 mmol/L 21.0-32.0 [facility] Chloride assayOrdered By: Lluvia Sanchez on 09-24-2024 Chloride [Moles/Vol] 99 mmol/L 98-108 [facility] Eosinophil percentageOrdered By: Joe Sanchez on 09-24-2024 Eosinophils/100 WBC (Bld) 1.7 % 0-5 [facility] Erythrocyte distribution wid th ratioOrdered By: Joe Sanchez on 09-24-2024 Erythrocyte distribution width (RBC) [Ratio] 13.6 % 11.6-14.6 [facility] Erythrocyte distribution wid th standard deviationOrdered By: Joe Sanchez on 09-24-2024 Erythrocyte distribution width (RBC) [Ratio] 48.6 fl High 35.1-43.9 [facility] Glomerular filtration rate ( GFR) estimation/1.73 sq m using serum, plasma, or whole bOrdered By: Yudimendocinolynnette Sanchez on 09-24-2024 GFR/1.73 sq M.predicted among non-blacks MDRD (S/P/Bld) [Vol rate/Area] 28 mL/min/{1.73_m2} Low >60 [facility] Comment on above: mL/min/1.73m2 CKD-EP I Creatinine Equation (2020) Hematocrit Auto (Bld) [Volum e fraction]Ordered By: Joe Sanchez on 09-24-2024 Hematocrit (Bld) [Volume fraction] 42.5 % 37-47 [facility] Hemoglobin measurementOrdere d By: Joe Sanchez on 09-24-2024 Hemoglobin (Bld) [Mass/Vol] 14.1 g/dL 12.0-15.0 [facility] Immature granulocytes/100 WB C Auto (Bld)Ordered By: Joe Sanchez 09-24-2024 Immature granulocytes/100 WBC (Bld) 0.700 % 0.0-0.9 [facility] Comment on above: IG% - Immature Granu locytes (promyelocytes, myelocytes and metamyelocytes) > 1% indicates that a LEFT SHIFT is Present. MCV (mean corpuscular volume ) determinationOrdered By: Joe Sanchez on 09-24-2024 MCV (RBC) [Entitic vol] 97.5 fL 81-99 [facility] Mean corpuscular hemoglobin (MCH) determinationOrdered By: Joe Sanchez 09-24-2024 MCH (RBC) [Entitic mass] 32.3 pg High 27.0-32.0 [facility] Mean corpuscular hemoglobin concentration (MCHC) determinationOrdered By: Joe Sanchez on 09-24-2024 MCHC (RBC) [Mass/Vol] 33.2 g/dL 32-36 [facility] Mean platelet volume determi nationOrdered By: Joe Sanchez on 09-24-2024 Platelet mean volume (Bld) [Entitic vol] 12.3 fL High 6.2-12.0 [facility] Monocyte percentageOrdered B y: Joe Sanchez on 09-24-2024 Monocytes/100 WBC (Bld) 10.8 % High 0-10 [facility] Neutrophil percentageOrdered By: Joe Sanchez on 09-24-2024 Neutrophils/100 WBC (Bld) 61.8 % 47-70 [facility] Nucleated red blood cell per centageOrdered By: Joe Sanchez on 09-24-2024 Nucleated RBC/100 WBC (Bld) [Ratio] 0 % 0-5 [facility] Platelet countOrdered By: Lluvia genelynnette Sanchez on 09-24-2024 Platelets (Bld) [#/Vol] 204 10*3/uL 150-450 [facility] Potassium measurement (mass/ volume)Ordered By: Joe Sanchez on 09-24-2024 Potassium (Unsp spec) [Mass/Vol] 4.3 mmol/L 3.3-5.1 [facility] Comment on above: Hemolysis present, R esults could be affected. RBC Auto (Bld) [#/Vol]Ordere d By: Joe Sanchez on 09-24-2024 RBC (Bld) [#/Vol] 4.36 10*6/uL 4.2-5.4 [facility] Serum creatinine measurement (mass/volume)Ordered By: Joe Sanchez on 09-24-2024 Creatinine [Mass/Vol] 1.76 mg/dL High 0.70-1.20 [facility] Serum glucose measurement (m ass/volume)Ordered By: Joe Sanchez on 09-24-2024 Glucose [Mass/Vol] 86 mg/dL 70-99 [facility] Serum or plasma calcium leah urement (mass/volume)Ordered By: Joe Chaumilton on 09-24-2024 Calcium [Mass/Vol] 9.6 mg/dL 7.6-11.0 [facility] Serum or plasma urea nitroge n measurement (mass/volume)Ordered By: Joe Chaumilton on 09-24-2024 Urea nitrogen [Mass/Vol] 28 mg/dL High 4-19 [facility] Sodium levelOrdered By: Yudi Chaumilton on 09-24-2024 Sodium [Moles/Vol] 139 mmol/L 133-145 [facility] White blood cell (WBC) count Ordered By: Joe Arturoawaismilton on 09-24-2024 WBC (Bld) [#/Vol] 7.4 10*3/uL 4.4-11.0 [facility] Absolute lymphocyte countOrd ered By: Joe Arturoawaismilton on 08-27-2024 Lymphocytes Auto (Unsp spec) [#/Vol] 1.87 10*3/uL 0.83-4.51 [facility] Absolute neutrophil countOrd ered By: Joe Sanchez on 08-27-2024 Neutrophils (Bld) [#/Vol] 4.2 10*3/uL 2.0-7.7 [facility] Anion gap in Serum or Plasma Ordered By: Joe Arturoawaismilton on 08-27-2024 Anion gap [Moles/Vol] 12 mmol/L 5-15 [facility] Automated lymphocyte count a s percentage of total leukocytesOrdered By: Lluviaclaudiomleissalynnette Morrisawaismilton on 08-27-2024 Lymphocytes/100 WBC Auto (Unsp spec) 27.1 % 19-41 [facility] BUN/creatinine ratioOrdered By: Joe Arturoawaismilton on 08-27-2024 Urea nitrogen/Creatinine [Mass ratio] 15.0 mg/mg 10-20 [facility] Basophil percentageOrdered B y: Joaquinlynnette Morrisawaismilton on 08-27-2024 Basophils/100 WBC (Bld) 1.0 % 0-1 [facility] Carbon dioxide, total [Moles /volume] in Central venous bloodOrdered By: Joe Sanchez on 08-27-2024 CO2 [Moles/Vol] 27.3 mmol/L 21.0-32.0 [facility] Chloride assayOrdered By: Lluvia Sanchez on 08-27-2024 Chloride [Moles/Vol] 99 mmol/L 98-108 [facility] Eosinophil percentageOrdered By: montez Sanchez on 08-27-2024 Eosinophils/100 WBC (Bld) 2.0 % 0-5 [facility] Erythrocyte distribution wid th ratioOrdered By: [facility] on 08-27-2024 Erythrocyte distribution width (RBC) [Ratio] 13.7 % 11.6-14.6 [facility] Erythrocyte distribution wid th standard deviationOrdered By: [facility] on 08-27-2024 Erythrocyte distribution width (RBC) [Ratio] 49.1 fl High 35.1-43.9 [facility] Glomerular filtration rate ( GFR) estimation/1.73 sq m using serum, plasma, or whole bOrdered By: Joe Sanchez on 08-27-2024 GFR/1.73 sq M.predicted among non-blacks MDRD (S/P/Bld) [Vol rate/Area] 29 mL/min/{1.73_m2} Low >60 [facility] Comment on above: mL/min/1.73m2 CKD-EP I Creatinine Equation (2020) Hematocrit Auto (Bld) [Volum e fraction]Ordered By: montez Sanchez on 08-27-2024 Hematocrit (Bld) [Volume fraction] 42.3 % 37-47 [facility] Hemoglobin measurementOrdere d By: montez Sanchez on 08-27-2024 Hemoglobin (Bld) [Mass/Vol] 13.8 g/dL 12.0-15.0 [facility] Immature granulocytes/100 WB C Auto (Bld)Ordered By: Joe Sanchez on 08-27-2024 Immature granulocytes/100 WBC (Bld) 0.400 % 0.0-0.9 [facility] Comment on above: IG% - Immature Granu locytes (promyelocytes, myelocytes and metamyelocytes) > 1% indicates that a LEFT SHIFT is Present. MCV (mean corpuscular volume ) determinationOrdered By: Joe Sanchez on 08-27-2024 MCV (RBC) [Entitic vol] 96.8 fL 81-99 [facility] Mean corpuscular hemoglobin (MCH) determinationOrdered By: Joe Sanchez on 08-27-2024 MCH (RBC) [Entitic mass] 31.6 pg 27.0-32.0 [facility] Mean corpuscular hemoglobin concentration (MCHC) determinationOrdered By: Joe Sanchez on 08-27-2024 MCHC (RBC) [Mass/Vol] 32.6 g/dL 32-36 [facility] Mean platelet volume determi nationOrdered By: Joe Sanchez on 08-27-2024 Platelet mean volume (Bld) [Entitic vol] 12.5 fL High 6.2-12.0 [facility] Monocyte percentageOrdered B y: Joe Sanchez on 08-27-2024 Monocytes/100 WBC (Bld) 9.4 % 0-10 [facility] Neutrophil percentageOrdered By: Joe Sanchez on 08-27-2024 Neutrophils/100 WBC (Bld) 60.1 % 47-70 [facility] Nucleated red blood cell per centageOrdered By: Joe Sanchez on 08-27-2024 Nucleated RBC/100 WBC (Bld) [Ratio] 0 % 0-5 [facility] Platelet countOrdered By: Lluvia claudiokayleigh Sanchez on 08-27-2024 Platelets (Bld) [#/Vol] 196 10*3/uL 150-450 [facility] Potassium measurement (mass/ volume)Ordered By: Joe Sanchez on 08-27-2024 Potassium (Unsp spec) [Mass/Vol] 4.1 mmol/L 3.3-5.1 [facility] RBC Auto (Bld) [#/Vol]Ordere d By: Joe Sanchez on 08-27-2024 RBC (Bld) [#/Vol] 4.37 10*6/uL 4.2-5.4 [facility] Serum creatinine measurement (mass/volume)Ordered By: Joe Sanchez on 08-27-2024 Creatinine [Mass/Vol] 1.74 mg/dL High 0.70-1.20 [facility] Serum glucose measurement (m ass/volume)Ordered By: Joe Sanchez on 08-27-2024 Glucose [Mass/Vol] 103 mg/dL High 70-99 [facility] Serum or plasma calcium leah urement (mass/volume)Ordered By: Joe Sanchez on 08-27-2024 Calcium [Mass/Vol] 9.5 mg/dL 7.6-11.0 [facility] Serum or plasma urea nitroge n measurement (mass/volume)Ordered By: Joe Sanchez on 08-27-2024 Urea nitrogen [Mass/Vol] 26 mg/dL High 4-19 [facility] Sodium levelOrdered By: Yudi Sanchez on 08-27-2024 Sodium [Moles/Vol] 138 mmol/L 133-145 [facility] White blood cell (WBC) count Ordered By: Joe Sanchez on 08-27-2024 WBC (Bld) [#/Vol] 6.9 10*3/uL 4.4-11.0 [facility] Absolute lymphocyte countOrd ered By: Joe Sanchez on 07-30-2024 Lymphocytes Auto (Unsp spec) [#/Vol] 1.85 10*3/uL 0.83-4.51 [facility] Absolute neutrophil countOrd ered By: Joe Sanchez on 07-30-2024 Neutrophils (Bld) [#/Vol] 3.8 10*3/uL 2.0-7.7 [facility] Anion gap in Serum or Plasma Ordered By: Joe Sanchez on 07-30-2024 Anion gap [Moles/Vol] 12 mmol/L 5-15 [facility] Automated lymphocyte count a s percentage of total leukocytesOrdered By: Joe Sanchez on 07-30-2024 Lymphocytes/100 WBC Auto (Unsp spec) 28.5 % 19-41 [facility] BUN/creatinine ratioOrdered By: Joe Sanchez on 07-30-2024 Urea nitrogen/Creatinine [Mass ratio] 14.9 mg/mg 10-20 [facility] Basophil percentageOrdered B y: Joe Sanchez on 07-30-2024 Basophils/100 WBC (Bld) 1.1 % High 0-1 [facility] Carbon dioxide, total [Moles /volume] in Central venous bloodOrdered By: Joe Arturohans on 07-30-2024 CO2 [Moles/Vol] 26.5 mmol/L 21.0-32.0 [facility] Chloride assayOrdered By: Lluvia montez Arturoawaismilton on 07-30-2024 Chloride [Moles/Vol] 100 mmol/L 98-108 [facility] Eosinophil percentageOrdered By: Joe Sanchez on 07-30-2024 Eosinophils/100 WBC (Bld) 1.8 % 0-5 [facility] Erythrocyte distribution wid th ratioOrdered By: claudiomendocinolynnette Arturohans on 07-30-2024 Erythrocyte distribution width (RBC) [Ratio] 14.2 % 11.6-14.6 [facility] Erythrocyte distribution wid th standard deviationOrdered By: claudiomendocinolynnette Sanchez on 07-30-2024 Erythrocyte distribution width (RBC) [Ratio] 52.9 fl High 35.1-43.9 [facility] Glomerular filtration rate ( GFR) estimation/1.73 sq m using serum, plasma, or whole bOrdered By: Joe Sanchez on 07-30-2024 GFR/1.73 sq M.predicted among non-blacks MDRD (S/P/Bld) [Vol rate/Area] 26 mL/min/{1.73_m2} Low >60 [facility] Comment on above: mL/min/1.73m2 CKD-EP I Creatinine Equation (2020) Hematocrit Auto (Bld) [Volum e fraction]Ordered By: Lluviaclaudiomelissalynnette Sancehz on 07-30-2024 Hematocrit (Bld) [Volume fraction] 41.4 % 37-47 [facility] Hemoglobin measurementOrdere d By: Lluviaclaudiokayleigh Arturoawaismilton on 07-30-2024 Hemoglobin (Bld) [Mass/Vol] 13.5 g/dL 12.0-15.0 [facility] Immature granulocytes/100 WB C Auto (Bld)Ordered By: Joe Sanchez on 07-30-2024 Immature granulocytes/100 WBC (Bld) 0.800 % 0.0-0.9 [facility] Comment on above: IG% - Immature Granu locytes (promyelocytes, myelocytes and metamyelocytes) > 1% indicates that a LEFT SHIFT is Present. MCV (mean corpuscular volume ) determinationOrdered By: Joe Sanchez on 07-30-2024 MCV (RBC) [Entitic vol] 102.7 fL High 81-99 [facility] Mean corpuscular hemoglobin (MCH) determinationOrdered By: Joe Sanchez on 07-30-2024 MCH (RBC) [Entitic mass] 33.5 pg High 27.0-32.0 [facility] Mean corpuscular hemoglobin concentration (MCHC) determinationOrdered By: Joe Sanchez on 07-30-2024 MCHC (RBC) [Mass/Vol] 32.6 g/dL 32-36 [facility] Mean platelet volume determi nationOrdered By: Joe Sanchez on 07-30-2024 Platelet mean volume (Bld) [Entitic vol] 11.8 fL 6.2-12.0 [facility] Monocyte percentageOrdered B y: Joe Sanchez on 07-30-2024 Monocytes/100 WBC (Bld) 9.2 % 0-10 [facility] Neutrophil percentageOrdered By: Joe Sanchez on 07-30-2024 Neutrophils/100 WBC (Bld) 58.6 % 47-70 [facility] Nucleated red blood cell per centageOrdered By: Joe Sanchez on 07-30-2024 Nucleated RBC/100 WBC (Bld) [Ratio] 0 % 0-5 [facility] Platelet countOrdered By: Lluvia Sanchez on 07-30-2024 Platelets (Bld) [#/Vol] 167 10*3/uL 150-450 [facility] Potassium measurement (mass/ volume)Ordered By: Joe Sanchez on 07-30-2024 Potassium (Unsp spec) [Mass/Vol] 4.3 mmol/L 3.3-5.1 [facility] Comment on above: Hemolysis present, R esults could be affected. RBC Auto (Bld) [#/Vol]Ordere d By: Joe Sanchez on 07-30-2024 RBC (Bld) [#/Vol] 4.03 10*6/uL Low 4.2-5.4 [facility] Serum creatinine measurement (mass/volume)Ordered By: Joe Sanchez on 07-30-2024 Creatinine [Mass/Vol] 1.87 mg/dL High 0.70-1.20 [facility] Serum glucose measurement (m ass/volume)Ordered By: Joe Sanchez on 07-30-2024 Glucose [Mass/Vol] 89 mg/dL 70-99 [facility] Serum or plasma calcium leah urement (mass/volume)Ordered By: Joe Sanchez on 07-30-2024 Calcium [Mass/Vol] 9.4 mg/dL 7.6-11.0 [facility] Serum or plasma urea nitroge n measurement (mass/volume)Ordered By: Joe Sanchez on 07-30-2024 Urea nitrogen [Mass/Vol] 28 mg/dL High 4-19 [facility] Sodium levelOrdered By: Yudi Sanchez on 07-30-2024 Sodium [Moles/Vol] 138 mmol/L 133-145 [facility] White blood cell (WBC) count Ordered By: Joe Sanchez on 07-30-2024 WBC (Bld) [#/Vol] 6.5 10*3/uL 4.4-11.0 [facility] Bilirubin directOrdered By: Joe Sanchez on 07-15-2024 Bilirubin.direct [Mass/Vol] 0.26 mg/dL 0.00-0.30 [facility] Bilirubin, totalOrdered By: Joe Sanchez on 07-15-2024 Bilirubin [Mass/Vol] 0.62 mg/dL 0.00-1.30 [facility] Calculated very low density lipoprotein (VLDL) cholesterol measurementOrdered By: Joe Sanchez on 07-15-2024 Calculated very low density lipoprotein (VLDL) cholesterol measurement 20 mg/dL 5-40 [facility] Hemoglobin A1c percentageOrd ered By: Joe Sanchez on 07-15-2024 HbA1c (Bld) [Mass fraction] 5.5 % <5.7 [facility] Comment on above: Normal < 5.7 % Predi abetic 5.7 - 6.4 % Diabetic >or= 6.5 % Please note range changes. LDL calc ser/plasOrdered By: Joe Sanchez on 07-15-2024 Cholesterol in LDL [Mass/Vol] 86 mg/dL [facility] Comment on above: Boatsbyaeo=373-055 m g/dL & Higher Fond=810 mg/dL or greater Laboratory - Chemistry and C hemistry - challengeOrdered By: Joe Sanchez on 07-15-2024 AST [Catalytic activity/Vol] 19 U/L <32 [facility] Screening total cholesterol/ high density lipoprotein (HDL) cholesterol ratioOrdered By: Joe Sanchez on 07-15-2024 Cholesterol.total/Shannon sterol in HDL [Mass ratio] 3.91 {ratio} [facility] Serum globulin measurementOr dered By: Joe Sanchez on 07-15-2024 Globulin (S) [Mass/Vol] 3.2 g/dL 2.2-4.2 [facility] Serum or plasma alanine kilpatrick otransferase (ALT) measurementOrdered By: Joe Sanchez on 07-15-2024 ALT [Catalytic activity/Vol] 7 U/L <35 [facility] Serum or plasma albumin leah urement (mass/volume)Ordered By: Joe Sanchez on 07-15-2024 Albumin [Mass/Vol] 3.4 g/dL 3.4-4.8 [facility] Serum or plasma alkaline kirti sphatase measurementOrdered By: Joe Sanchez 07-15-2024 ALP [Catalytic activity/Vol] 67 U/L 35-104 [facility] Serum or plasma cholesterol in HDL measurement (mass/volume)Ordered By: Joe Sanchez on 07-15-2024 Cholesterol in HDL [Mass/Vol] 36 mg/dL Low >40 [facility] Comment on above: National Cholesterol Education Program (NCEP) guidelines:<40 mg/dL: Low HDL-cholesterol (major risk factor for CHD)>= 60 mg/dL: High HDL-cholesterol (negative risk factor for CHD)HDL-cholesterol is affected by a number of factors, e.g. smoking, exercise, hormones, sex and age. Serum or plasma cholesterol measurement (mass/volume)Ordered By: Joe Sanchez on 07-15-2024 Cholesterol [Mass/Vol] 142 mg/dL <201 [facility] Comment on above: Cholesterol level, D esirable <200 mg/dLBorderline high cholesterol 200-239 mg/dLHigh cholesterol >=240 mg/dLRecommendations of the NCEP Adult Treatment Panel for the following risk-cutoff thresholds for the [place] population. Total proteinOrdered By: Constantin Sanchez on 07-15-2024 Protein [Mass/Vol] 6.7 g/dL 5.9-8.4 [facility] Triglycerides measurementOrd ered By: Joe Sanchez on 07-15-2024 Triglyceride [Mass/Vol] 101 mg/dL <199 [facility] Comment on above: The drugs N-Acetylcy steine and Metamizole may falsely depress this assay. Normal range: <150 mg/dLBorderline High: 150-199 mg/dLHigh: 200-499 mg/dLVery High: >500 mg/dL Absolute lymphocyte countOrd ered By: Joe Sanchez on 07-02-2024 Lymphocytes Auto (Unsp spec) [#/Vol] 1.69 10*3/uL 0.83-4.51 [facility] Absolute neutrophil countOrd ered By: Joe Sanchez on 07-02-2024 Neutrophils (Bld) [#/Vol] 4.5 10*3/uL 2.0-7.7 [facility] Anion gap in Serum or Plasma Ordered By: Joe Sanchez on 07-02-2024 Anion gap [Moles/Vol] 13 mmol/L - [facility] Automated lymphocyte count a s percentage of total leukocytesOrdered By: Joe Sanchez on 07-02-2024 Lymphocytes/100 WBC Auto (Unsp spec) 23.8 % 19-41 [facility] BUN/creatinine ratioOrdered By: Joe Sanchez on 07-02-2024 Urea nitrogen/Creatinine [Mass ratio] 16.6 mg/mg 10-20 [facility] Basophil percentageOrdered B y: Joe Sanchez on 07-02-2024 Basophils/100 WBC (Bld) 1.0 % 0-1 [facility] Carbon dioxide, total [Moles /volume] in Central venous bloodOrdered By: Joe Sanchez on 07-02-2024 CO2 [Moles/Vol] 26.0 mmol/L 21.0-32.0 [facility] Chloride assayOrdered By: Lluvia Sanchez on 07-02-2024 Chloride [Moles/Vol] 99 mmol/L 98-108 [facility] Eosinophil percentageOrdered By: claudiomendocinolynnette Sanchez on 07-02-2024 Eosinophils/100 WBC (Bld) 1.7 % 0-5 [facility] Erythrocyte distribution wid th ratioOrdered By: Joe Sanchez on 07-02-2024 Erythrocyte distribution width (RBC) [Ratio] 13.5 % 11.6-14.6 [facility] Erythrocyte distribution wid th standard deviationOrdered By: Joe Sanchez on 07-02-2024 Erythrocyte distribution width (RBC) [Ratio] 47.8 fl High 35.1-43.9 [facility] Glomerular filtration rate ( GFR) estimation/1.73 sq m using serum, plasma, or whole bOrdered By: Joe Sanchez on 07-02-2024 GFR/1.73 sq M.predicted among non-blacks MDRD (S/P/Bld) [Vol rate/Area] 28 mL/min/{1.73_m2} Low >60 [facility] Comment on above: mL/min/1.73m2 CKD-EP I Creatinine Equation (2020) Hematocrit Auto (Bld) [Volum e fraction]Ordered By: Joe Sanchez on 07-02-2024 Hematocrit (Bld) [Volume fraction] 41.2 % 37-47 [facility] Hemoglobin measurementOrdere d By: Joe Sanchez on 07-02-2024 Hemoglobin (Bld) [Mass/Vol] 13.8 g/dL 12.0-15.0 [facility] Immature granulocytes/100 WB C Auto (Bld)Ordered By: Yudimelissalynnette Morrisawaismilton on 07-02-2024 Immature granulocytes/100 WBC (Bld) 0.600 % 0.0-0.9 [facility] Comment on above: IG% - Immature Granu locytes (promyelocytes, myelocytes and metamyelocytes) > 1% indicates that a LEFT SHIFT is Present. MCV (mean corpuscular volume ) determinationOrdered By: Joe Sanchez on 07-02-2024 MCV (RBC) [Entitic vol] 95.8 fL 81-99 [facility] Mean corpuscular hemoglobin (MCH) determinationOrdered By: claudiomendocinolynnette Sanchez on 07-02-2024 MCH (RBC) [Entitic mass] 32.1 pg High 27.0-32.0 [facility] Mean corpuscular hemoglobin concentration (MCHC) determinationOrdered By: montez Sanchez on 07-02-2024 MCHC (RBC) [Mass/Vol] 33.5 g/dL 32-36 [facility] Mean platelet volume determi nationOrdered By: Lluviamontez Morrisawaismilton on 07-02-2024 Platelet mean volume (Bld) [Entitic vol] 12.6 fL High 6.2-12.0 [facility] Monocyte percentageOrdered B y: Joe Sanchez on 07-02-2024 Monocytes/100 WBC (Bld) 9.8 % 0-10 [facility] Neutrophil percentageOrdered By: montez Sanchez on 07-02-2024 Neutrophils/100 WBC (Bld) 63.1 % 47-70 [facility] Nucleated red blood cell per centageOrdered By: montez Sanchez on 07-02-2024 Nucleated RBC/100 WBC (Bld) [Ratio] 0 % 0-5 [facility] Platelet countOrdered By: Lluvia claudiokayleigh Sanchez on 07-02-2024 Platelets (Bld) [#/Vol] 210 10*3/uL 150-450 [facility] Potassium measurement (mass/ volume)Ordered By: Joe Sanchez on 07-02-2024 Potassium (Unsp spec) [Mass/Vol] 4.4 mmol/L 3.3-5.1 [facility] Comment on above: Hemolysis present, R esults could be affected. RBC Auto (Bld) [#/Vol]Ordere d By: Joe Sanchez on 07-02-2024 RBC (Bld) [#/Vol] 4.30 10*6/uL 4.2-5.4 [facility] Serum creatinine measurement (mass/volume)Ordered By: Joe Sanchez on 07-02-2024 Creatinine [Mass/Vol] 1.78 mg/dL High 0.70-1.20 [facility] Serum glucose measurement (m ass/volume)Ordered By: Joe Sanchez on 07-02-2024 Glucose [Mass/Vol] 100 mg/dL High 70-99 [facility] Serum or plasma calcium leah urement (mass/volume)Ordered By: Joe Sanchez on 07-02-2024 Calcium [Mass/Vol] 9.5 mg/dL 7.6-11.0 [facility] Serum or plasma urea nitroge n measurement (mass/volume)Ordered By: Joe Sanchez on 07-02-2024 Urea nitrogen [Mass/Vol] 30 mg/dL High 4-19 [facility] Sodium levelOrdered By: Yudi Sanchez on 07-02-2024 Sodium [Moles/Vol] 138 mmol/L 133-145 [facility] White blood cell (WBC) count Ordered By: Joe Sanchez on 07-02-2024 WBC (Bld) [#/Vol] 7.1 10*3/uL 4.4-11.0 [facility] Vitamin D, 25-hydroxyOrdered By: Joe Sanchez on 06-18-2024 Vitamin D 25-Hydroxy 23.4 ng/mL Low 30-100 [facility] Comment on above: Vitamin D StatusDefi ciency: <20 ng/mL (50nmol/L)Insufficiency: 20-30 ng/mL (50-75 nmol/L)Sufficiency: 30-100 ng/mL (75-250 nmol/L)Toxicity: >100 ng/mL (>250 nmol/L) Absolute lymphocyte countOrd ered By: Yudimelissalynnette Morrisawaismilton on 06-04-2024 Lymphocytes Auto (Unsp spec) [#/Vol] 1.61 10*3/uL 0.83-4.51 [facility] Absolute neutrophil countOrd ered By: Joe Morrisawaismilton on 06-04-2024 Neutrophils (Bld) [#/Vol] 5.3 10*3/uL 2.0-7.7 [facility] Anion gap in Serum or Plasma Ordered By: Joe Sanchez on 06-04-2024 Anion gap [Moles/Vol] 13 mmol/L 5-15 [facility] Automated lymphocyte count a s percentage of total leukocytesOrdered By: Joe Sanchez on 06-04-2024 Lymphocytes/100 WBC Auto (Unsp spec) 19.9 % 19-41 [facility] BUN/creatinine ratioOrdered By: Joe Sanchez on 06-04-2024 Urea nitrogen/Creatinine [Mass ratio] 16.0 mg/mg 10-20 [facility] Basophil percentageOrdered B y: Yudimelissalynnette Morrisawaismilton on 06-04-2024 Basophils/100 WBC (Bld) 1.1 % High 0-1 [facility] Carbon dioxide, total [Moles /volume] in Central venous bloodOrdered By: Joe Sanchez on 06-04-2024 CO2 [Moles/Vol] 26.2 mmol/L 21.0-32.0 [facility] Chloride assayOrdered By: Lluvia Sanchez on 06-04-2024 Chloride [Moles/Vol] 99 mmol/L 98-108 [facility] Eosinophil percentageOrdered By: montez Sanchez on 06-04-2024 Eosinophils/100 WBC (Bld) 2.2 % 0-5 [facility] Erythrocyte distribution wid th (RBC) [Ratio]Ordered By: Joe Sanchez on 06-04-2024 Erythrocyte distribution width (RBC) [Entitic vol] 46.8 fL High 35.1-43.9 [facility] Erythrocyte distribution wid th ratioOrdered By: Joe Sanchez on 06-04-2024 Erythrocyte distribution width (RBC) [Ratio] 13.2 % 11.6-14.6 [facility] Erythrocyte distribution wid th standard deviationOrdered By: Joe Sanchez on 06-04-2024 Erythrocyte distribution width (RBC) [Ratio] 46.8 fl High 35.1-43.9 [facility] GFR/1.73 sq M.predicted venkata g non-blacks MDRD (S/P/Bld) [Vol rate/Area]Ordered By: Joe Sanchez on 06-04-2024 Estimated GFR (MDRD) Non-Af Amer 29 Low >60 [facility] Comment on above: mL/min/1.73m2 CKD-EP I Creatinine Equation (2020) Glomerular filtration rate ( GFR) estimation/1.73 sq m using serum, plasma, or whole bOrdered By: Joe Sanchez on 06-04-2024 GFR/1.73 sq M.predicted among non-blacks MDRD (S/P/Bld) [Vol rate/Area] 29 mL/min/{1.73_m2} Low >60 [facility] Comment on above: mL/min/1.73m2 CKD-EP I Creatinine Equation (2020) Hematocrit Auto (Bld) [Volum e fraction]Ordered By: Joe Sanchez on 06-04-2024 Hematocrit (Bld) [Volume fraction] 43.1 % 37-47 [facility] Hemoglobin measurementOrdere d By: Joe Sanchez on 06-04-2024 Hemoglobin (Bld) [Mass/Vol] 14.2 g/dL 12.0-15.0 [facility] Immature granulocytes/100 WB C Auto (Bld)Ordered By: Joe Sanchez 06-04-2024 Immature granulocytes/100 WBC (Bld) 0.600 % 0.0-0.9 [facility] Comment on above: IG% - Immature Granu locytes (promyelocytes, myelocytes and metamyelocytes) > 1% indicates that a LEFT SHIFT is Present. Lymphocytes Auto (Unsp spec) [#/Vol]Ordered By: Joe Sanchez on 06-04-2024 Lymphocytes (Bld) [#/Vol] 1.61 10*3/uL 0.83-4.51 [facility] Lymphocytes/100 WBC Auto (Un sp spec)Ordered By: Joe Sanchez on 06-04-2024 Lymphocytes/100 WBC (Bld) 19.9 % 19-41 [facility] MCV (mean corpuscular volume ) determinationOrdered By: Joe Sanchez on 06-04-2024 MCV (RBC) [Entitic vol] 96.9 fL 81-99 [facility] Mean corpuscular hemoglobin (MCH) determinationOrdered By: Joe Sanchez on 06-04-2024 MCH (RBC) [Entitic mass] 31.9 pg 27.0-32.0 [facility] Mean corpuscular hemoglobin concentration (MCHC) determinationOrdered By: Joe Sanchez on 06-04-2024 MCHC (RBC) [Mass/Vol] 32.9 g/dL 32-36 [facility] Mean platelet volume determi nationOrdered By: Joe Sanchez on 06-04-2024 Platelet mean volume (Bld) [Entitic vol] 12.3 fL High 6.2-12.0 [facility] Monocyte percentageOrdered B y: Joe Sanchez on 06-04-2024 Monocytes/100 WBC (Bld) 10.4 % High 0-10 [facility] Neutrophil percentageOrdered By: Joe Sanchez on 06-04-2024 Neutrophils/100 WBC (Bld) 65.8 % 47-70 [facility] Nucleated red blood cell per centageOrdered By: Joe Sanchez on 06-04-2024 Nucleated RBC/100 WBC (Bld) [Ratio] 0 % 0-5 [facility] Platelet countOrdered By: Lluvia claudiokayleigh Sanchez on 06-04-2024 Platelets (Bld) [#/Vol] 216 10*3/uL 150-450 [facility] Potassium (Unsp spec) [Mass/ Vol]Ordered By: Joe Sanchez on 06-04-2024 Potassium [Moles/Vol] 4.5 mmol/L 3.3-5.1 [facility] Potassium measurement (mass/ volume)Ordered By: Joe Sanchez on 06-04-2024 Potassium (Unsp spec) [Mass/Vol] 4.5 mmol/L 3.3-5.1 [facility] RBC Auto (Bld) [#/Vol]Ordere d By: Yudimelissalynnette Sanchez on 06-04-2024 RBC (Bld) [#/Vol] 4.45 10*6/uL 4.2-5.4 [facility] Serum creatinine measurement (mass/volume)Ordered By: Joe Sanchez on 06-04-2024 Creatinine [Mass/Vol] 1.74 mg/dL High 0.70-1.20 [facility] Serum glucose measurement (m ass/volume)Ordered By: Joe Sanchez on 06-04-2024 Glucose [Mass/Vol] 91 mg/dL 70-99 [facility] Serum or plasma calcium leah urement (mass/volume)Ordered By: Joe Sanchez on 06-04-2024 Calcium [Mass/Vol] 9.5 mg/dL 7.6-11.0 [facility] Serum or plasma urea nitroge n measurement (mass/volume)Ordered By: Joe Sanchez on 06-04-2024 Urea nitrogen [Mass/Vol] 28 mg/dL High 4-19 [facility] Sodium levelOrdered By: Lluviaclaudio kayleigh Arturoawaismilton on 06-04-2024 Sodium [Moles/Vol] 138 mmol/L 133-145 [facility] White blood cell (WBC) count Ordered By: Joe Sanchez on 06-04-2024 WBC (Bld) [#/Vol] 8.1 10*3/uL 4.4-11.0 [facility] Absolute lymphocyte countOrd ered By: Joe Sanchez on 05-07-2024 Lymphocytes Auto (Unsp spec) [#/Vol] 1.40 10*3/uL 0.83-4.51 [facility] Absolute neutrophil countOrd ered By: Joe Sanchez on 05-07-2024 Neutrophils (Bld) [#/Vol] 5.1 10*3/uL 2.0-7.7 [facility] Automated lymphocyte count a s percentage of total leukocytesOrdered By: Joe Sanchez on 05-07-2024 Lymphocytes/100 WBC Auto (Unsp spec) 19.1 % 19-41 [facility] Basophil percentageOrdered B y: Joe Sanchez on 05-07-2024 Basophils/100 WBC (Bld) 1.0 % 0-1 [facility] Blood urea nitrogen (BUN)/cr eatinine ratioOrdered By: Joe Sanchez on 05-07-2024 Urea nitrogen/Creatinine [Mass ratio] 13.9 mg/mg 10-20 [facility] Carbon dioxide measurementOr dered By: Joe Sanchez on 05-07-2024 CO2 [Moles/Vol] 28.0 mmol/L 21.0-32.0 [facility] Chloride measurementOrdered By: claudiomendocinolynnette Sanchez on 05-07-2024 Chloride [Moles/Vol] 101 mmol/L 98-107 [facility] Eosinophil percentageOrdered By: Joe Sanchez on 05-07-2024 Eosinophils/100 WBC (Bld) 2.7 % 0-5 [facility] Erythrocyte distribution wid th (RBC) [Ratio]Ordered By: Joe Sanchez on 05-07-2024 Erythrocyte distribution width (RBC) [Entitic vol] 48.3 fL High 35.1-43.9 [facility] Erythrocyte distribution wid th ratioOrdered By: oJe Sanchez on 05-07-2024 Erythrocyte distribution width (RBC) [Ratio] 13.5 % 11.6-14.6 [facility] Erythrocyte distribution wid th standard deviationOrdered By: montez Sanchez on 05-07-2024 Erythrocyte distribution width (RBC) [Ratio] 48.3 fl High 35.1-43.9 [facility] Estimated glomerular filtrat ion rate (GFR) AmericanOrdered By: Joe Sanchez on 05-07-2024 Estimated GFR (MDRD) Amer 29 mL/min Low >60 [facility] Comment on above: GFR Calc Glomerular filtration rate ( GFR) estimationOrdered By: Joe Sanchez on 05-07-2024 Estimated GFR (MDRD) Non-Af Amer 24 mL/min Low >60 [facility] Comment on above: Non- GFR Calc GFR/1.73 sq M.predicted among non-blacks MDRD (S/P/Bld) [Vol rate/Area] 24 mL/min/{1.73_m2} Low >60 [facility] Comment on above: Non- GFR Calc Glucose measurementOrdered B y: Joe Sanchez on 05-07-2024 Glucose [Mass/Vol] 122 mg/dL High 74-106 [facility] Comment on above: Fasting Glucose resu lt from 100 to 125 mg/dL suggests IMPAIRED HOMEOSTASIS per A.D.A. criteria. Hematocrit Auto (Bld) [Volum e fraction]Ordered By: Joe Sanchez on 05-07-2024 Hematocrit (Bld) [Volume fraction] 41.3 % 37-47 [facility] Hemoglobin measurementOrdere d By: Joe Sanchez on 05-07-2024 Hemoglobin (Bld) [Mass/Vol] 13.4 g/dL 12.0-15.0 [facility] Immature granulocytes/100 WB C Auto (Bld)Ordered By: Joe Sanchez on 05-07-2024 Immature granulocytes/100 WBC (Bld) 0.700 % 0.0-0.9 [facility] Comment on above: IG% - Immature Granu locytes (promyelocytes, myelocytes and metamyelocytes) > 1% indicates that a LEFT SHIFT is Present. Lymphocytes Auto (Unsp spec) [#/Vol]Ordered By: Joe Sanchez on 05-07-2024 Lymphocytes (Bld) [#/Vol] 1.40 10*3/uL 0.83-4.51 [facility] Lymphocytes/100 WBC Auto (Un sp spec)Ordered By: Joe Sanchez on 05-07-2024 Lymphocytes/100 WBC (Bld) 19.1 % 19-41 [facility] MCV (mean corpuscular volume ) determinationOrdered By: Joe Sanchez on 05-07-2024 MCV (RBC) [Entitic vol] 98.6 fL 81-99 [facility] Mean corpuscular hemoglobin (MCH) determinationOrdered By: Joe Sanchez on 05-07-2024 MCH (RBC) [Entitic mass] 32.0 pg 27.0-32.0 [facility] Mean corpuscular hemoglobin concentration (MCHC) determinationOrdered By: Joe Sanchez on 05-07-2024 MCHC (RBC) [Mass/Vol] 32.4 g/dL 32-36 [facility] Mean platelet volume determi nationOrdered By: Joe Sanchez on 05-07-2024 Platelet mean volume (Bld) [Entitic vol] 12.6 fL High 6.2-12.0 [facility] Monocyte percentageOrdered B y: Joe Sanchez on 05-07-2024 Monocytes/100 WBC (Bld) 7.4 % 0-10 [facility] Neutrophil percentageOrdered By: Joe Sanchez on 05-07-2024 Neutrophils/100 WBC (Bld) 69.1 % 47-70 [facility] Nucleated red blood cell per centageOrdered By: Joe Sanchez on 05-07-2024 Nucleated RBC/100 WBC (Bld) [Ratio] 0 % 0-5 [facility] Platelet countOrdered By: Lluvia Sanchez on 05-07-2024 Platelets (Bld) [#/Vol] 194 10*3/uL 150-450 [facility] Potassium measurementOrdered By: Joe Sanchez on 05-07-2024 Potassium [Moles/Vol] 3.6 mmol/L 3.5-5.1 [facility] RBC Auto (Bld) [#/Vol]Ordere d By: Joe Sanchez on 05-07-2024 RBC (Bld) [#/Vol] 4.19 10*6/uL Low 4.2-5.4 [facility] Serum anion gap measurementO rdered By: Joe Sanchez on 05-07-2024 Anion gap [Moles/Vol] 10 mmol/L 5-15 [facility] Serum or plasma calcium leah urement (mass/volume)Ordered By: Joe Sanchez on 05-07-2024 Calcium [Mass/Vol] 9.3 mg/dL 8.5-10.1 [facility] Serum or plasma creatinine m easurement (mass/volume)Ordered By: Joe Sanchez on 05-07-2024 Creatinine [Mass/Vol] 2.08 mg/dL High 0.55-1.02 [facility] Comment on above: The validity of the calculated GFR & GFRAA in patients over 70 years has not been determined. Clinical correlation is essential. Serum or plasma urea nitroge n measurement (mass/volume)Ordered By: Joe Sanchez on 05-07-2024 Urea nitrogen [Mass/Vol] 29 mg/dL High 7-18 [facility] [facility] Sodium levelOrdered By: Yudi Sanchez on 05-07-2024 Sodium [Moles/Vol] 139 mmol/L 136-145 [facility] White blood cell (WBC) count Ordered By: Joe Sanchez on 05-07-2024 WBC (Bld) [#/Vol] 7.3 10*3/uL 4.4-11.0 [facility] 48-KN-Ysfkmnz DOrdered By: Milton Sanchez on 04-22-2024 Vitamin D 25-Hydroxy 69.4 ng/mL [facility] Comment on above: Vitamin D 25(OH) Sta tus Range Deficiency <20 ng/mL (50nmol/L) Insufficiency 20 - 30 ng/mL (50 - 75 nmol/L) Sufficiency 30 - 100 ng/mL (75 - 250 nmol/L) Toxicity >100 ng/mL (>250 nmol/L) Bilirubin directOrdered By: Joe Sanchez on 04-22-2024 Bilirubin.direct [Mass/Vol] 0.29 mg/dL 0.00-0.30 [facility] Bilirubin, totalOrdered By: Joe Sanchez on 04-22-2024 Bilirubin [Mass/Vol] 0.90 mg/dL 0.20-1.00 [facility] Comment on above: For patients on eltr ombopag therapy, use of Dimension Carpenter TBIL is not recommended. Hemoglobin A1c percentageOrd ered By: Joe Sanchez on 04-22-2024 HbA1c (Bld) [Mass fraction] 5.2 % 3.8-5.6 [facility] Comment on above: Normal < 5.7 % Predi abetic 5.7 - 6.4 % Diabetic >or= 6.5 % Please note range changes. High density lipoprotein (HD L) measurementOrdered By: Joe Sanchez on 04-22-2024 Cholesterol in HDL [Mass/Vol] 44 mg/dL >40 [facility] Comment on above: The drugs N-Acetylcy steine and Metamizole may falsely depress this assay. Reference Range HDL <40 mg/dL Low HDL Cholesterol HDL >or= 60 mg/dL High HDL Cholesterol Laboratory - Chemistry and C hemistry - challengeOrdered By: Joe Sanchez on 04-22-2024 AST [Catalytic activity/Vol] 15 U/L 15-37 [facility] Low density lipoprotein (LDL ) cholesterol measurementOrdered By: Joe Sanchez on 04-22-2024 Cholesterol in LDL [Mass/Vol] 41 mg/dL 0-130 [facility] Serum globulin measurementOr dered By: Joe Sanchez on 04-22-2024 Globulin (S) [Mass/Vol] 3.7 g/dL 2.2-4.2 [facility] Serum or plasma alanine kilpatrick otransferase (ALT) measurementOrdered By: Joe Sanchez on 04-22-2024 ALT [Catalytic activity/Vol] 14 U/L 13-56 [facility] Serum or plasma albumin leah urement (mass/volume)Ordered By: Joe Sanchez on 04-22-2024 Albumin [Mass/Vol] 2.7 g/dL Low 3.2-5.0 [facility] Serum or plasma alkaline kirti sphatase measurementOrdered By: Joe Sanchez on 04-22-2024 ALP [Catalytic activity/Vol] 61 U/L 45-117 [facility] Serum or plasma cholesterol measurement (mass/volume)Ordered By: Joe Sanchez on 04-22-2024 Cholesterol [Mass/Vol] 106 mg/dL <200 [facility] Comment on above: <200 mg/dL Desirable 200-240 mg/dL Borderline >240 mg/dL High Risk Total proteinOrdered By: Constantin chancelynnette Sanchez on 04-22-2024 Protein [Mass/Vol] 6.4 g/dL 6.4-8.2 [facility] Triglycerides measurementOrd ered By: Yudimelissalynnette Sanchez on 04-22-2024 Triglyceride [Mass/Vol] 107 mg/dL <199 [facility] Comment on above: The drugs N-Acetylcy steine and Metamizole may falsely depress this assay.Serum Triglycerides Reference Interval Normal <150 mg/dL Borderline high 150 - 199 mg/dL High 200 - 499 mg/dL Very High > or = 500 mg/dL Very low density lipoprotein (VLDL) cholesterol measurementOrdered By: Joe Sanchez on 04-22-2024 Very low density lipoprotein (VLDL) cholesterol measurement 21 mg/dL 5-40 [facility] VLDL Cholesterol 21 mg/dL 5-40 [facility] Absolute lymphocyte countOrd ered By: Joe Sanchez on 04-09-2024 Lymphocytes Auto (Unsp spec) [#/Vol] 1.63 10*3/uL 0.83-4.51 [facility] Absolute neutrophil countOrd ered By: Joe Sanchez on 04-09-2024 Neutrophils (Bld) [#/Vol] 5.0 10*3/uL 2.0-7.7 [facility] Automated lymphocyte count a s percentage of total leukocytesOrdered By: Joe Sanchez on 04-09-2024 Lymphocytes/100 WBC Auto (Unsp spec) 20.7 % 19- [facility] Basophil percentageOrdered B y: Joe Sanchez on 04-09-2024 Basophils/100 WBC (Bld) 1.3 % High 0-1 [facility] Blood urea nitrogen (BUN)/cr eatinine ratioOrdered By: Joe Sanchez on 04-09-2024 Urea nitrogen/Creatinine [Mass ratio] 11.4 mg/mg 10-20 [facility] Carbon dioxide measurementOr dered By: Joe Sanchez on 04-09-2024 CO2 [Moles/Vol] 30.0 mmol/L 21.0-32.0 [facility] Chloride measurementOrdered By: Joe Sanchez on 04-09-2024 Chloride [Moles/Vol] 100 mmol/L 98-107 [facility] Eosinophil percentageOrdered By: Joe Sanchez on 04-09-2024 Eosinophils/100 WBC (Bld) 2.4 % 0-5 [facility] Erythrocyte distribution wid th (RBC) [Ratio]Ordered By: Joe Sanchez on 04-09-2024 Erythrocyte distribution width (RBC) [Entitic vol] 49.9 fL High 35.1-43.9 [facility] Erythrocyte distribution wid th ratioOrdered By: Joe Sanchez on 04-09-2024 Erythrocyte distribution width (RBC) [Ratio] 13.6 % 11.6-14.6 [facility] Erythrocyte distribution wid th standard deviationOrdered By: Joe Sanchez on 04-09-2024 Erythrocyte distribution width (RBC) [Ratio] 49.9 fl High 35.1-43.9 [facility] Estimated glomerular filtrat ion rate (GFR) AmericanOrdered By: Joe Sanchez on 04-09-2024 Estimated GFR (MDRD) Amer 36 mL/min Low >60 [facility] Comment on above: GFR Calc Glomerular filtration rate ( GFR) estimationOrdered By: Joe Sanchez on 04-09-2024 Estimated GFR (MDRD) Non-Af Amer 30 mL/min Low >60 [facility] Comment on above: Non- GFR Calc GFR/1.73 sq M.predicted among non-blacks MDRD (S/P/Bld) [Vol rate/Area] 30 mL/min/{1.73_m2} Low >60 [facility] Comment on above: Non- GFR Calc Glucose measurementOrdered B y: Joe Sanchez on 04-09-2024 Glucose [Mass/Vol] 86 mg/dL 74-106 [facility] Hematocrit Auto (Bld) [Volum e fraction]Ordered By: Joe Sanchez on 04-09-2024 Hematocrit (Bld) [Volume fraction] 40.5 % 37-47 [facility] Hemoglobin measurementOrdere d By: Joe Sanchez on 04-09-2024 Hemoglobin (Bld) [Mass/Vol] 13.0 g/dL 12.0-15.0 [facility] Immature granulocytes/100 WB C Auto (Bld)Ordered By: Joe Sanchez on 04-09-2024 Immature granulocytes/100 WBC (Bld) 0.600 % 0.0-0.9 [facility] Comment on above: IG% - Immature Granu locytes (promyelocytes, myelocytes and metamyelocytes) > 1% indicates that a LEFT SHIFT is Present. Lymphocytes Auto (Unsp spec) [#/Vol]Ordered By: claudiomendocinolynnette Sanchez on 04-09-2024 Lymphocytes (Bld) [#/Vol] 1.63 10*3/uL 0.83-4.51 [facility] Lymphocytes/100 WBC Auto (Un sp spec)Ordered By: montez Sanchez on 04-09-2024 Lymphocytes/100 WBC (Bld) 20.7 % 19-41 [facility] MCV (mean corpuscular volume ) determinationOrdered By: Joe Sanchez on 04-09-2024 MCV (RBC) [Entitic vol] 98.5 fL 81-99 [facility] Mean corpuscular hemoglobin (MCH) determinationOrdered By: Joe Sanchez on 04-09-2024 MCH (RBC) [Entitic mass] 31.6 pg 27.0-32.0 [facility] Mean corpuscular hemoglobin concentration (MCHC) determinationOrdered By: Joe Sanchez on 04-09-2024 MCHC (RBC) [Mass/Vol] 32.1 g/dL 32-36 [facility] Mean platelet volume determi nationOrdered By: montez Sanchez on 04-09-2024 Platelet mean volume (Bld) [Entitic vol] 12.2 fL High 6.2-12.0 [facility] Monocyte percentageOrdered B y: Joe Sanchez on 04-09-2024 Monocytes/100 WBC (Bld) 10.9 % High 0-10 [facility] Neutrophil percentageOrdered By: Joe Sanchez on 01-21-2025 Neutrophils/100 WBC (Bld) 64.1 % 47-70 [facility] Nucleated red blood cell per centageOrdered By: Joe Sanchez on 04-09-2024 Nucleated RBC/100 WBC (Bld) [Ratio] 0 % 0-5 [facility] Platelet countOrdered By: Lluvia Sanchez on 04-09-2024 Platelets (Bld) [#/Vol] 215 10*3/uL 150-450 [facility] Potassium measurementOrdered By: Joe Sanchez on 04-09-2024 Potassium [Moles/Vol] 4.2 mmol/L 3.5-5.1 [facility] RBC Auto (Bld) [#/Vol]Ordere d By: Joe Sanchez on 04-09-2024 RBC (Bld) [#/Vol] 4.11 10*6/uL Low 4.2-5.4 [facility] Serum anion gap measurementO rdered By: Joe Sanchez on 04-09-2024 Anion gap [Moles/Vol] 6 mmol/L 5-15 [facility] Serum or plasma calcium leah urement (mass/volume)Ordered By: Joe Sanchez on 04-09-2024 Calcium [Mass/Vol] 9.8 mg/dL 8.5-10.1 [facility] Serum or plasma creatinine m easurement (mass/volume)Ordered By: Joe Sanchez on 04-09-2024 Creatinine [Mass/Vol] 1.75 mg/dL High 0.55-1.02 [facility] Comment on above: The validity of the calculated GFR & GFRAA in patients over 70 years has not been determined. Clinical correlation is essential. Serum or plasma urea nitroge n measurement (mass/volume)Ordered By: Joe Sanchez on 04-09-2024 Urea nitrogen [Mass/Vol] 20 mg/dL High 7-18 [facility] Sodium levelOrdered By: Yudi Sanchez on 04-09-2024 Sodium [Moles/Vol] 137 mmol/L 136-145 [facility] White blood cell (WBC) count Ordered By: Joe Sanchez on 04-09-2024 WBC (Bld) [#/Vol] 7.9 10*3/uL 4.4-11.0 [facility] 36on 04-03-2024 36 Records received and scanned under [facility] 36on 04-01-2024 36 I called Osmany and she requested me to fax med recs release to [phone] I faxed this morning. Confirmed 04/02 at 5:45p [facility] 36on 03-15-2024 36 Chart reviewed, patient completed 30 day follow-up in [place]. Cancelled echo order [facility] 36 Patient prefers care in [facility] 36 We have been unable to reach your patient to schedule their testing. Test Name: echo 1st Attempt: 03/14/2024 left voicemail 2nd Attempt: 03/15/2024 left voicemail [facility] Bilirubin Test strip Ql (U)O rdered By: Joe Sanchez on 03-15-2024 Bilirubin Ql (U) Negative Negative [facility] Glucose Ql (U)Ordered By: Lluvia Sanchez on 03-15-2024 Glucose (U) [Mass/Vol] 250 mg/dL High Normal [facility] Ketones Test strip Ql (U)Ord ered By: Joe Sanchez on 03-15-2024 Ketones Ql (U) Negative Negative [facility] Nitrite Test strip Ql (U)Ord ered By: Joe Sanchez on 03-15-2024 Nitrite Ql (U) Negative Negative [facility] Protein Test strip Ql (U)Ord ered By: Joe Sanchez on 03-15-2024 Protein Ql (U) 100 mg/dl High Negative [facility] Urine blood detectionOrdered By: Joe Sanchez on 03-15-2024 Urine Occult Blood 250 /ul High Negative [facility] Urine clarityOrdered By: Constantin Sanchez on 03-15-2024 Clarity (U) Cloudy Clear [facility] Urine color determinationOrd ered By: Joe Sanchez on 03-15-2024 Color (U) Straw Yellow [facility] Urine cultureOrdered By: Constantin Sanchez on 03-15-2024 Bacteria identified Cx Nom (U) Enterobacter cloacae complex Abnormal [facility] Urine leukocyte esterase det ection by dipstickOrdered By: Joe Sanchez on 03-15-2024 Leukocyte esterase Test strip Ql (U) 500 /ul High Negative [facility] Urine pHOrdered By: Miles Sanchez on 03-15-2024 pH (U) 6.0 [pH] 5.0 - 8.0 [facility] Urine specific gravity measu rementOrdered By: Joe Sanchez on 03-15-2024 Specific gravity (U) [Rel density] 1.015 1.002-1.030 [facility] Urobilinogen Ql (U)Ordered B y: Joe Sanchez on 03-15-2024 Urine Urobilinogen Normal mg/dl Normal [facility] Absolute neutrophil countOrd ered By: Joe Sanchez on 03-08-2024 Neutrophils (Bld) [#/Vol] 5.5 10*3/uL 2.0-7.7 [facility] Basophil percentageOrdered B y: Joe Sanchez on 03-08-2024 Basophils/100 WBC (Bld) 1.3 % High 0-1 [facility] Blood urea nitrogen (BUN)/cr eatinine ratioOrdered By: Joe Sanchez on 03-08-2024 Urea nitrogen/Creatinine [Mass ratio] 13.4 mg/mg 10-20 [facility] Carbon dioxide measurementOr dered By: Joe Sanchez on 03-08-2024 CO2 [Moles/Vol] 27.0 mmol/L 21.0-32.0 [facility] Chloride measurementOrdered By: Joe Sanchez on 03-08-2024 Chloride [Moles/Vol] 98 mmol/L 98-107 [facility] Eosinophil percentageOrdered By: Joe Sanchez on 03-08-2024 Eosinophils/100 WBC (Bld) 3.6 % 0-5 [facility] Erythrocyte distribution wid th (RBC) [Ratio]Ordered By: Joe Sanchez on 03-08-2024 Erythrocyte distribution width (RBC) [Entitic vol] 50.5 fL High 35.1-43.9 [facility] Erythrocyte distribution wid th ratioOrdered By: Joe Chaumilton on 03-08-2024 Erythrocyte distribution width (RBC) [Ratio] 14.1 % 11.6-14.6 [facility] Estimated glomerular filtrat ion rate (GFR) AmericanOrdered By: Joe Sancehz on 03-08-2024 Estimated GFR (MDRD) Amer 35 mL/min Low >60 [facility] Comment on above: GFR Calc Glomerular filtration rate ( GFR) estimationOrdered By: Joe Sanchez on 03-08-2024 Estimated GFR (MDRD) Non-Af Amer 29 mL/min Low >60 [facility] Comment on above: Non- GFR Calc Glucose measurementOrdered B y: Joe Sanchez on 03-08-2024 Glucose [Mass/Vol] 82 mg/dL 74-106 [facility] Hematocrit Auto (Bld) [Volum e fraction]Ordered By: Joe Sanchez on 03-08-2024 Hematocrit (Bld) [Volume fraction] 39.8 % 37-47 [facility] Hemoglobin measurementOrdere d By: Yudimelissalynnette Sanchez on 03-08-2024 Hemoglobin (Bld) [Mass/Vol] 13.1 g/dL 12.0-15.0 [facility] Immature granulocytes/100 WB C Auto (Bld)Ordered By: Joe Sanchez on 03-08-2024 Immature granulocytes/100 WBC (Bld) 1.300 % High 0.0-0.9 [facility] Comment on above: IG% - Immature Granu locytes (promyelocytes, myelocytes and metamyelocytes) > 1% indicates that a LEFT SHIFT is Present. Lymphocytes Auto (Unsp spec) [#/Vol]Ordered By: Joe Sanchez on 03-08-2024 Lymphocytes (Bld) [#/Vol] 1.69 10*3/uL 0.83-4.51 [facility] Lymphocytes/100 WBC Auto (Un sp spec)Ordered By: Joe Sanchez on 03-08-2024 Lymphocytes/100 WBC (Bld) 19.6 % 19-41 [facility] MCV (mean corpuscular volume ) determinationOrdered By: Joe Sanchez on 03-08-2024 MCV (RBC) [Entitic vol] 97.3 fL 81-99 [facility] Mean corpuscular hemoglobin (MCH) determinationOrdered By: Efmontez Sanchez on 03-08-2024 MCH (RBC) [Entitic mass] 32.0 pg 27.0-32.0 [facility] Mean corpuscular hemoglobin concentration (MCHC) determinationOrdered By: Joe Sanchez on 03-08-2024 MCHC (RBC) [Mass/Vol] 32.9 g/dL 32-36 [facility] Mean platelet volume determi nationOrdered By: Joe Sanchez on 03-08-2024 Platelet mean volume (Bld) [Entitic vol] 11.9 fL 6.2-12.0 [facility] Monocyte percentageOrdered B y: Joe Sanchez on 03-08-2024 Monocytes/100 WBC (Bld) 10.9 % High 0-10 [facility] Neutrophil percentageOrdered By: Joe Sanchez on 03-08-2024 Neutrophils/100 WBC (Bld) 63.3 % 47-70 [facility] Nucleated red blood cell per centageOrdered By: Joe Sanchez on 03-08-2024 Nucleated RBC/100 WBC (Bld) [Ratio] 0 % 0-5 [facility] Platelet countOrdered By: Ef claudioonglynnette Sanchez on 03-08-2024 Platelets (Bld) [#/Vol] 232 10*3/uL 150-450 [facility] Potassium measurementOrdered By: Joe Sanchez on 03-08-2024 Potassium [Moles/Vol] 4.1 mmol/L 3.5-5.1 [facility] RBC Auto (Bld) [#/Vol]Ordere d By: Joaquinbe Kandie on 03-08-2024 RBC (Bld) [#/Vol] 4.09 10*6/uL Low 4.2-5.4 [facility] Serum anion gap measurementO rdered By: Joe Sanchez on 03-08-2024 Anion gap [Moles/Vol] 9 mmol/L 5-15 [facility] Serum or plasma calcium leah urement (mass/volume)Ordered By: Joe Sanchez on 03-08-2024 Calcium [Mass/Vol] 9.6 mg/dL 8.5-10.1 [facility] Serum or plasma creatinine m easurement (mass/volume)Ordered By: Joe Sanchez on 03-08-2024 Creatinine [Mass/Vol] 1.79 mg/dL High 0.55-1.02 [facility] Comment on above: The validity of the calculated GFR & GFRAA in patients over 70 years has not been determined. Clinical correlation is essential. Serum or plasma urea nitroge n measurement (mass/volume)Ordered By: Joe Sanchez on 03-08-2024 Urea nitrogen [Mass/Vol] 24 mg/dL High 7-18 [facility] Sodium levelOrdered By: Yudi kirbydrew Daniel on 03-08-2024 Sodium [Moles/Vol] 134 mmol/L Low 136-145 [facility] White blood cell (WBC) count Ordered By: Joe Sanchez on 03-08-2024 WBC (Bld) [#/Vol] 8.6 10*3/uL 4.4-11.0 [facility] Absolute neutrophil countOrd ered By: Joe Sanchez on 03-01-2024 Neutrophils (Bld) [#/Vol] 5.1 10*3/uL 2.0-7.7 [facility] Basophil percentageOrdered B y: Joe Sanchez on 03-01-2024 Basophils/100 WBC (Bld) 1.6 % High 0-1 [facility] Blood urea nitrogen (BUN)/cr eatinine ratioOrdered By: Joe Sanchez on 03-01-2024 Urea nitrogen/Creatinine [Mass ratio] 15.9 mg/mg 10- [facility] Carbon dioxide measurementOr dered By: Joe Sanchez on 03-01-2024 CO2 [Moles/Vol] 26.0 mmol/L 21.0-32.0 [facility] Chloride measurementOrdered By: Joe Sanchez on 03-01-2024 Chloride [Moles/Vol] 101 mmol/L 98-107 [facility] Eosinophil percentageOrdered By: Joe Sanchez on 03-01-2024 Eosinophils/100 WBC (Bld) 3.2 % 0-5 [facility] Erythrocyte distribution wid th (RBC) [Ratio]Ordered By: Joe Sanchez on 03-01-2024 Erythrocyte distribution width (RBC) [Entitic vol] 49.1 fL High 35.1-43.9 [facility] Erythrocyte distribution wid th ratioOrdered By: Joe Sanchez on 03-01-2024 Erythrocyte distribution width (RBC) [Ratio] 14.0 % 11.6-14.6 [facility] Estimated glomerular filtrat ion rate (GFR) AmericanOrdered By: Joe Sanchez on 03-01-2024 Estimated GFR (MDRD) Amer 30 mL/min Low >60 [facility] Comment on above: GFR Calc Glomerular filtration rate ( GFR) estimationOrdered By: Joe Sanchez on 03-01-2024 Estimated GFR (MDRD) Non-Af Amer 25 mL/min Low >60 [facility] Comment on above: Non- GFR Calc Glucose measurementOrdered B y: Joe Sanchez on 03-01-2024 Glucose [Mass/Vol] 101 mg/dL 74-106 [facility] Comment on above: Fasting Glucose resu lt from 100 to 125 mg/dL suggests IMPAIRED HOMEOSTASIS per A.D.A. criteria. Hematocrit Auto (Bld) [Volum e fraction]Ordered By: Joe Sanchez on 03-01-2024 Hematocrit (Bld) [Volume fraction] 37.7 % 37-47 [facility] Hemoglobin measurementOrdere d By: Joe Sanchez on 03-01-2024 Hemoglobin (Bld) [Mass/Vol] 12.6 g/dL 12.0-15.0 [facility] Immature granulocytes/100 WB C Auto (Bld)Ordered By: Joe Sanchez on 03-01-2024 Immature granulocytes/100 WBC (Bld) 1.200 % High 0.0-0.9 [facility] Comment on above: IG% - Immature Granu locytes (promyelocytes, myelocytes and metamyelocytes) > 1% indicates that a LEFT SHIFT is Present. Lymphocytes Auto (Unsp spec) [#/Vol]Ordered By: Joe Sanchez on 03-01-2024 Lymphocytes (Bld) [#/Vol] 1.56 10*3/uL 0.83-4.51 [facility] Lymphocytes/100 WBC Auto (Un sp spec)Ordered By: Joe Sanchez on 03-01-2024 Lymphocytes/100 WBC (Bld) 19.0 % 19-41 [facility] MCV (mean corpuscular volume ) determinationOrdered By: Joe Sanchez on 03-01-2024 MCV (RBC) [Entitic vol] 96.2 fL 81-99 [facility] Mean corpuscular hemoglobin (MCH) determinationOrdered By: Joe Sanchez on 03-01-2024 MCH (RBC) [Entitic mass] 32.1 pg High 27.0-32.0 [facility] Mean corpuscular hemoglobin concentration (MCHC) determinationOrdered By: Joe Sanchez on 03-01-2024 MCHC (RBC) [Mass/Vol] 33.4 g/dL 32-36 [facility] Mean platelet volume determi nationOrdered By: Joe Sanchez on 03-01-2024 Platelet mean volume (Bld) [Entitic vol] 12.0 fL 6.2-12.0 [facility] Monocyte percentageOrdered B y: Joe Sanchez on 03-01-2024 Monocytes/100 WBC (Bld) 12.9 % High 0-10 [facility] Neutrophil percentageOrdered By: Joe Sanchez on 03-01-2024 Neutrophils/100 WBC (Bld) 62.1 % 47-70 [facility] Nucleated red blood cell per centageOrdered By: Joe Sanchez on 03-01-2024 Nucleated RBC/100 WBC (Bld) [Ratio] 0 % 0-5 [facility] Platelet countOrdered By: Lluvia Sanchez on 03-01-2024 Platelets (Bld) [#/Vol] 212 10*3/uL 150-450 [facility] Potassium measurementOrdered By: Joe Sanchez on 03-01-2024 Potassium [Moles/Vol] 4.1 mmol/L 3.5-5.1 [facility] RBC Auto (Bld) [#/Vol]Ordere d By: Joe Sanchez on 03-01-2024 RBC (Bld) [#/Vol] 3.92 10*6/uL Low 4.2-5.4 [facility] Serum anion gap measurementO rdered By: Joe Sanchez on 03-01-2024 Anion gap [Moles/Vol] 8 mmol/L 5-15 [facility] Serum or plasma calcium leah urement (mass/volume)Ordered By: Joe Sanchez on 03-01-2024 Calcium [Mass/Vol] 9.6 mg/dL 8.5-10.1 [facility] Serum or plasma creatinine m easurement (mass/volume)Ordered By: Joe Sanchez on 03-01-2024 Creatinine [Mass/Vol] 2.01 mg/dL High 0.55-1.02 [facility] Comment on above: The validity of the calculated GFR & GFRAA in patients over 70 years has not been determined. Clinical correlation is essential. Serum or plasma urea nitroge n measurement (mass/volume)Ordered By: Joe Sanchez on 03-01-2024 Urea nitrogen [Mass/Vol] 32 mg/dL High 7-18 [facility] Sodium levelOrdered By: Yudi Sanchez on 03-01-2024 Sodium [Moles/Vol] 136 mmol/L 136-145 [facility] White blood cell (WBC) count Ordered By: Joe Sanchez on 03-01-2024 WBC (Bld) [#/Vol] 8.2 10*3/uL 4.4-11.0 [facility] Cardiology Visit Reporton Cardiology Visit Report [facility] [address] [place] [address] OFFICE VISIT Date of Service: 02/07/24 MR#: [id number] Acct: [id number] Name: BRIANNE CALL Rep #: [id number] : 1940 Provider: Dr. Suzan Garces MD Age/Sex: 83/F Location: [facility] Status: Signed HPI HPI History of Present Illness Details: This lady is here for follow-up visit. She has history of atrial fibrillation, dyslipidemia, nonischemic cardiomyopathy and aortic valve stenosis status post TAVR with valve in valve. Patient is not a good historian. Denies any complaints. 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 Coordinator Required: No Accompanied by: Caregiver Is patient in pain?: No Allergies Iodinated Contrast Media Allergy (Intermediate, Verified 02/07/24 14:43) Hives LANDON Inhibitors Adverse Reaction (Intermediate, Verified 02/07/24 14:43) Other dapagliflozin (From Farxiga) Adverse Reaction (Intermediate, Verified 02/07/24 14:43) cough sacubitril (From Entresto) Adverse Reaction (Intermediate, Verified 02/07/24 14:43) cough valsartan (From Entresto) Adverse Reaction (Intermediate, Verified 02/07/24 14:43) cough lisinopril Adverse Reaction (Verified 02/07/24 14:43) COUGH Medications ???Medication ???Instructions ???Recorded ???Confirmed ???Type metoprolol tartrate 25 mg tablet 12.5 mg PO BID BLOOD PRESSURE 07/10/17 02/07/24 History apixaban 5 mg tablet (Eliquis) 5 mg PO BID BLOOD THINNER 12/11/17 02/07/24 History febuxostat 40 mg tablet 40 mg PO DAILY 02/02/21 02/07/24 History pantoprazole 40 mg tablet,delayed 40 mg PO DAILY 02/02/21 02/07/24 History release dapagliflozin propanediol 10 mg 10 mg PO DAILY #90 tabs 11/08/23 02/07/24 Rx tablet (Farxiga) spironolactone 25 mg tablet 25 mg PO DAILY #90 tabs 11/08/23 02/07/24 Rx furosemide 40 mg tablet (Lasix) 40 mg PO DAILY #30 tabs 11/10/23 02/07/24 Rx atorvastatin 40 mg tablet 40 mg PO QHS #0 tabs 01/10/24 02/07/24 Rx potassium chloride 20 mEq 20 meq PO QDAY 02/07/24 02/07/24 History tablet,extended release sertraline 50 mg tablet 50 mg PO QDAY 02/07/24 02/07/24 History Ejection fraction %: 30 Have you fallen in the past year?: No PFSH Medical History Actinic keratosis Arthritis Atrial fibrillation Cataracts, bilateral Chronic diastolic (congestive) heart failure Chronic kidney disease, stage 3a ALONSO (dyspnea on exertion) Encounter for preprocedural cardiovascular examination Gastric ulcer GERD (gastroesophageal reflux disease) Gout HFrEF (heart failure with reduced ejection fraction) History of skin cancer Hx of aortic valve stenosis Hyperlipidemia Hypertension Hypokalemia Legionella pneumonia LVH (left ventricular hypertrophy) Morbid obesity New onset atrial fibrillation ( 08/2017) Osteoarthritis Pancreatitis Pneumonia Severe aortic stenosis Vitamin D deficiency Surgical History H/O right heart catheterization History of aortic valve replacement History of appendectomy History of cataract removal with insertion of prosthetic lens History of hysterectomy History of left heart catheterization History of right and left heart catheterization Family History Father negative for CAD suspected ASD or VSD Mother Acute kidney failure Other Arthritis Hypertension Skin cancer Social History household members: none Smoking Status: Never smoker alcohol intake: never substance use type: does not use additional social history: Does Not Take Aspirin Does Not Take Ibuprofen ROS Const Const: Negative for fatigue, weakness, headache(s) or weight gain ENT ENT: Negative for headache(s), dizziness, Nosebleed/epistaxis or balance problems Cardio Chest Pain: No Palpitations: No Edema: None Muscle aches with walking: None Resp Respiratory: Negative for SOB with activity, SOB at rest or SOB orthopnea SOB lying down GI GI: Negative nausea, vomiting or heartburn Musc Musc: Negative for muscle aches/ myalgia, muscle weakness, joint pain or balance problems Neuro Neuro: Negative for dizziness, lightheadedness, near syncope, syncope, headache(s) or weakness Endo Endo: Negative for fatigue Cardiology Exam Const Appearance: comfortable and no acute distress Nutritional Appearance: obese Neck Neck: no JVD Carotids: Negative bruit Chest Auscultation: Bilateral: Cl (more content not included)... [facility] 36on 01-04-2024 36 I spoke w/ Juana in Dr. Garces's office, asking for echo order to be faxed. I placed order, Teofilo David DNP to sign, order needs faxed to Juana's attention @ [phone]. Time frame dates given to Juana for completion of OV/EKG/echo. KCCQ mailed to pt. [facility] 36 ----- Message from JEREMIE Saldaña CNP sent at 01/04/2024 1:51 PM EDT ----- Please call [place] office and advise regarding registry requirements of one month and one yr appts and echo. Will likely need phone call for KCCQ. [facility] Office Visiton 01-04-2024 Follow-up visit [id number] Brianne Call 1940 F Date Provider Department Center 01/04/2024 [id number] DAVID [facility] [address] Ar No family history on file Level of Service:12844 [place] OFFICE/OUTPATIENT ESTABLISHED MOD MDM 30 MIN Reason for Visit and Comments: Cardiac Valve Problem [1334] - One week post TAVR [facility] Progress Noteon 01-04-2024 Progress Note [facility] - [address] [address] Dept: [phone] Dept Visit type: Established : 1940 Reason for Visit: Cardiac Valve Problem (One week post TAVR) Assessment and Plan 1. Chronic atrial fibrillation (HCC). HR stable. Continue Apixaban 2. Severe aortic stenosis. S/p tAVR. Continue Eliquis. Will contact [place] regarding follow up and registry requirements. SBE prophylaxis. Plan echo in one month 3. Stage 3a chronic kidney disease (HCC). Renal function remains stable post procedure. 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 GFR 27--> 46 4. Left heart failure (HCC). Improved after TAVR, EF 30%--> 50 %, continue furosemide, Aldactone, Farxiga, metoprolol (allerg to landon/ARB) Plan follow up in [place] Subjective Ms Call is an 83 yr old female with a PMH of permanent AF, HFrEF, HTN, HPL, CKD stage 3b, obesity, GERD, and severe with EF 30%, mean and peak gradients 49/71 mm Hg. She underwent cardiac cath at [place] which showed non obstructive CAD. She underwent [...] wrist complaints. She wishes to follow in [place] as travel is difficult for her Allergies [...] 12/25/2023 Performed by Harjeet Huffman MD at [facility] OR CATARACT EXTRACTION HYSTERECTOMY No family [...] specialty: Independent interpretation of tests: Mónica David, PIPEFITTER - MUSIC DIRECTOR Normal [facility] BASIC METABOLIC PANELon 10-0 Anion gap [Moles/Vol] 7 mmol/L Normal 3-13 [facility] Comment on above: Performed By: #### L [id number] ####Sales And Service Officer: AIDE RUEDA ([id number])[facility] ([address] Calcium [Mass/Vol] 9.1 mg/dL Normal 8.4-10.4 [facility] Comment on above: Performed By: #### L AB15 ####Sales And Service Officer: AIDE RUEDA ([id number])[facility] ([facility])[address] [place] [address] Chloride [Moles/Vol] 108 mmol/L High 98-107 [facility] Comment on above: Performed By: #### L AB15 ####Sales And Service Officer: AIDE RUEDA ([id number])[facility] ([facility])[address] [place] [address] CO2 [Moles/Vol] 19 mmol/L Low 22-30 [facility] Comment on above: Performed By: #### L AB15 ####Sales And Service Officer: AIDE RUEDA ([id number])[facility] ([facility])[address] [place] [address] Creatinine [Mass/Vol] 1.17 mg/dL High 0.52-1.04 [facility] Comment on above: Performed By: #### L AB15 ####Sales And Service Officer: AIDE RUEDA ([id number])[facility] ([facility])[address] [place] [address] GLOMERULAR FILTRATION RATE ML/MIN/1.73 SQ M.PREDICTED 46.4 mL/min/1.73m*2 Low >60.0 [facility] Comment on above: Result Comment: Calc ulation based on the Chronic Kidney Disease Epidemiology Collaboration (CKD-EPI) equation refit without adjustment for race Performed By: #### L AB15 ####Sales And Service Officer: AIDE RUEDA ([id number])[facility] ([facility] [place] [address] [place] Glucose [Mass/Vol] 121 mg/dL High 70-100 [facility] Comment on above: Performed By: #### L AB15 ####Sales And Service Officer: AIDE RUEDA ([id number])[facility] ([facility])[address] [place] [address] Potassium [Moles/Vol] 4.4 mmol/L Normal 3.5-5.1 [facility] Comment on above: Performed By: #### L AB15 ####Sales And Service Officer: AIDE RUEDA ([id number])[facility] ([facility])[address] [place] [address] Sodium [Moles/Vol] 134 mmol/L Low 135-145 [facility] Comment on above: Performed By: #### L AB15 ####Sales And Service Officer: AIDE RUEDA ([id number])[facility] ([facility])[address] [place] [address] Urea nitrogen [Mass/Vol] 31 mg/dL High 7-17 [facility] Comment on above: Performed By: #### L AB15 ####Sales And Service Officer: AIDE RUEDA ([id number])[facility] ([facility])[address] [place] [address] Basic metabolic 1998 panelon 12-26-2023 Anion gap [Moles/Vol] 7 mmol/L 3 - 13 mmol/L [facility] Calcium [Mass/Vol] 9.1 mg/dL 8.4 - 10. 4 mg/dL [facility] Chloride [Moles/Vol] 108 mmol/L High 98 - 10 7 mmol/L [facility] CO2 [Moles/Vol] 19 mmol/L Low 22 - 30 mmol/L [facility] Creatinine [Mass/Vol] 1.17 mg/dL High 0.52 - 1.04 mg/dL [facility] GFR/1.73 sq M.predicted (S/P/Bld) [Vol rate/Area] 46.4 mL/min Low - PINF [facility] Comment on above: Calculation based on the Chronic Kidney Disease Epidemiology Collaboration (CKD-EPI) equation refit without adjustment for race Glucose [Mass/Vol] 121 mg/dL High 70 - 100 mg/dL [facility] Interpretation and review of laboratory results Abnormal [facility] Potassium [Moles/Vol] 4.4 mmol/L 3.5 - 5.1 mmol/L [facility] Sodium [Moles/Vol] 134 mmol/L Low 135 - 145 mmol/L [facility] Urea nitrogen [Mass/Vol] 31 mg/dL High 7 - 17 mg/dL [facility] CBC (HEMOGRAM)on 12-26-2023 Erythrocyte distribution width (RBC) [Ratio] 13.3 % Normal 11.5-15.0 [facility] Comment on above: Performed By: #### L [id number] ####Sales And Service Officer: AIDE RUEDA ([id number])[facility])[address] [place] [address] Hematocrit (Bld) [Volume fraction] 43.0 % Normal 35.0-47.0 [facility] Comment on above: Performed By: #### L [id number] ####Sales And Service Officer: AIDE RUEDA ([id number])[facility])[address] [place] [address] Hemoglobin (Bld) [Mass/Vol] 14.0 g/dL Normal 11.7-16.0 [facility] Comment on above: Performed By: #### L [id number] ####Sales And Service Officer: AIDE RUEDA ([id number])[facility])[address] [place] [address] MCH (RBC) [Entitic mass] 31.9 pg Normal 26.0-34.0 [facility] Comment on above: Performed By: #### L [id number] ####Sales And Service Officer: AIED RUEDA ([id number])[facility])[address] [place] [address] MCHC 32.6 % Normal 30.5-36.0 [facility] Comment on above: Performed By: #### L [id number] ####Sales And Service Officer: AIDE RUEDA ([id number])[facility])[address] [place] [address] MCV (RBC) [Entitic vol] 97.9 fL Normal 77.0-99.0 [facility] Comment on above: Performed By: #### L [id number] ####Sales And Service Officer: AIDE RUEDA ([id number])[facility])[address] [place] [address] Platelet mean volume (Bld) [Entitic vol] 12.4 fL Normal 9.0-12.7 [facility] Comment on above: Performed By: #### L [id number] ####Sales And Service Officer: AIDE RUEDA ([id number])[facility] ([facility])[address] [place] [address] Platelets (Bld) [#/Vol] 154 10*3/uL Normal 140-440 [facility] Comment on above: Performed By: #### L [id number] ####Sales And Service Officer: AIDE RUEDA ([id number])[facility] ([facility])[address] [place] [address] RBC (Bld) [#/Vol] 4.39 10*6/uL Normal 3.80-5.20 [facility] Comment on above: Performed By: #### L [id number] ####Sales And Service Officer: AIDE RUEDA ([id number])[facility] ([facility])[address] [place] [address] WBC (Bld) [#/Vol] 11.6 10*3/uL High 3.6-10.7 [facility] Comment on above: Performed By: #### L [id number] ####Sales And Service Officer: AIDE RUEDA ([id number])[facility] ([facility])[address] [place] [address] CBC panel Auto (Bld)on 12-25 Erythrocyte distribution width (RBC) [Ratio] 13.3 % 11.5 - 15.0 % [facility] Hematocrit (Bld) [Volume fraction] 43.0 % 35.0 - 47.0 % [facility] Hemoglobin (Bld) [Mass/Vol] 14.0 g/dL 11.7 - 16.0 g/dL [facility] Interpretation and review of laboratory results Abnormal [facility] MCH (RBC) [Entitic mass] 31.9 pg 26.0 - 34.0 pg [facility] MCHC (RBC) [Mass/Vol] 32.6 % 30.5 - 36.0 % [facility] MCV (RBC) [Entitic vol] 97.9 fL 77.0 - 99.0 fL [facility] Platelet mean volume (Bld) [Entitic vol] 12.4 fL 9.0 - 12.7 fL [facility] Platelets (Bld) [#/Vol] 154 10*3/uL 140 - 440 10*3/uL [facility] RBC (Bld) [#/Vol] 4.39 10*6/uL 3.80 - 5.2 0 10*6/uL [facility] WBC (Bld) [#/Vol] 11.6 10*3/uL High 3.6 - 10.7 10*3/uL [facility] ECG 12-LEADon 12-26-2023 ECG 12-LEAD IMPRESSION: Atrial fibrillation with slow ventricular rate Repol abnrm suggests ischemia, diffuse leads Electronically Signed On 12-26-2023 16:26:55 EDT by Austin Carmona [facility] No Panel InformationOrdered By: Austin Carmona on 12-26-2023 P Roberts 0 degrees [facility] Work Phone: NV Interval 0 ms [facility] Work Phone: QRS Roberts 48 degrees [facility] Work Phone: QRSD Interval 103 ms [facility] Work Phone: QT Interval 492 ms [facility] Work Phone: QTC Interval 404 ms [facility] Work Phone: T Wave Roberts -74 degrees [facility] Work Phone: [facility] Work Phone: No Panel Informationon 12-25 Atrial fibrillation with slow ventricular rate Repol abnrm suggests ischemia, diffuse leads Electronically Signed On 12-26-2023 16:26:55 EDT by Austin Carmona Austin Kruger MD - 12/26/2023 IMPRESSION: Atrial fibrillation with slow ventricular rate Repol abnrm suggests ischemia, diffuse leads Electronically Signed On 12-26-2023 16:26:55 EDT by Austin Carmona [facility] P Roberts 0 degrees [facility] NV Interval 0 ms [facility] QRS Roberts 22 degrees [facility] QRSD Interval 112 ms [facility] QT Interval 441 ms [facility] QTC Interval 405 ms [facility] T Wave Roberts 230 degrees [facility] Austin Carmona MD - 12/26/2023 IMPRESSION: Atrial fibrillation Poor R wave progression, CONSIDER ANTERIOR INFARCT ST and T abnormality Electronically Signed On 12-26-2023 09:21:43 EDT by Austin Carmona [facility] Nursing Noteon 12-26-2023 Nursing Note Discharge instructions given to patient and daughter. Patient verbalizes understanding of medication changes and follow up appointments, and activity restrictions. Discharged to home with daughter. Normal [facility] US Heart TransthoracicOrdere d By: Christopher Ruggiero on 12-26-2023 Ao Root [facility] Work Phone: Aortic Root 3.1 cm [facility] Work Phone: Aortic Sinus Valsalva 3.1 cm [facility] Work Phone: Aortic Sinus Valsalva Index 1.47 cm/m2 [facility] Work Phone: Ascending Aorta 3.6 cm [facility] Work Phone: Ascending Aorta Index 1.71 cm/m2 [facility] Work Phone: AV Area by Peak Velocity 0.6 cm2 [facility] Work Phone: AV Area by VTI 1.3 cm2 [facility] Work Phone: AV AT 75.0 ms [facility] Work Phone: AV Mean Gradient 21 mmHg [facility] Work Phone: AV Mean Velocity 2.8 m/s [facility] Work Phone: AV Peak Gradient 36 mmHg [facility] Work Phone: AV Peak Velocity 3.0 m/s [facility] Work Phone: AV Velocity Ratio 0.27 [facility] Work Phone: AV VTI 71.0 cm [facility] Work Phone: RAMÓN/BSA Peak Velocity 0.3 cm2/m2 [facility] Work Phone: RAMÓN/BSA VTI 0.6 cm2/m2 [facility] Work Phone: E/E' Lateral 11.25 [facility] Work Phone: E/E' Ratio (Averaged) 16.88 [facility] [employer] Work Phone: E/E' Septal 22.50 [facility] Work Phone: EF BP 36 % Abnormal 55 - 100 % [facility] Work Phone: Est. RA Pressure 3 mmHg [facility] Work Phone: Fractional Shortening 2D 29 % 28 - 44 % [facility] [employer] Work Phone: Interpretation and review of laboratory results Abnormal [facility] [employer] Work Phone: IVC Diameter 2.2 cm [facility] Work Phone: IVSd 1.4 cm Abnormal 0.6 - 0.9 cm [facility] Work Phone: LA Diameter 4.9 cm [facility] Work Phone: LA Size Index 2.32 cm/m2 [facility] Work Phone: LA Volume 2C 111 mL Abnormal 22 - 52 mL [facility] Work Phone: LA Volume 4C 131 mL Abnormal 22 - 52 mL [facility] Work Phone: LA Volume A/L 137 mL [facility] [employer] Work Phone: LA Volume BP 127 mL Abnormal 22 - 52 mL [facility] Work Phone: LA Volume Index 2C 53 mL/m2 Abnormal 16 - 34 mL/m2 [facility] [employer] Work Phone: LA Volume Index 4C 62 mL/m2 Abnormal 16 - 34 mL/m2 [facility] [employer] Work Phone: LA Volume Index A/L 65 mL/m2 16 - 34 mL/m2 [facility] Work Phone: LA Volume Index BP 60 ml/m2 Abnormal 16 - 34 ml/m2 [facility] Work Phone: LA/AO Root Ratio 1.58 [facility] Work Phone: LV E' Lateral Velocity 8 cm/s [facility] Work Phone: LV E' Septal Velocity 4 cm/s [facility] Work Phone: LV EDV A2C 137 mL [facility] Work Phone: LV EDV A4C 145 mL [facility] Work Phone: LV EDV BP 148 mL Abnormal 56 - 104 mL [facility] Work Phone: LV EDV Index A2C 65 mL/m2 [facility] Work Phone: LV EDV Index A4C 69 mL/m2 [facility] Work Phone: LV EDV Index BP 70 mL/m2 [facility] Work Phone: LV Ejection Fraction A2C 36 % [facility] Work Phone: LV Ejection Fraction A4C 35 % [facility] Work Phone: LV ESV A2C 88 mL [facility] Work Phone: LV ESV A4C 94 mL [facility] Work Phone: LV ESV BP 95 mL Abnormal 19 - 49 mL [facility] Work Phone: LV ESV Index A2C 42 mL/m2 [facility] Work Phone: LV ESV Index A4C 45 mL/m2 [facility] Work Phone: LV ESV Index BP 45 mL/m2 [facility] [place] Work Phone: LV Mass 2D 355.3 g Abnormal 67 - 162 g [facility] Work Phone: LV Mass 2D Index 168.4 g/m2 Abnormal 43 - 95 g/m2 [facility] Work Phone: LV RWT Ratio 0.55 [facility] Work Phone: LVIDd 5.5 cm Abnormal 3.9 - 5.3 cm [facility] Work Phone: LVIDd Index 2.61 cm/m2 [facility] Work Phone: LVIDs 3.9 cm [facility] Work Phone: LVIDs Index 1.85 cm/m2 [facility] Work Phone: LVOT Area 4.2 cm2 [facility] Work Phone: LVOT Cardiac Output 3.1 liter/mi nut e [facility] Work Phone: LVOT Diameter 2.3 cm [facility] Work Phone: LVOT Mean Gradient 2 mmHg [facility] Work Phone: LVOT Peak Gradient 3 mmHg [facility] Work Phone: LVOT Peak Velocity 0.8 m/s [facility] Work Phone: LVOT Stroke Volume Index 45.3 mL/m2 [facility] Work Phone: LVOT SV 95.5 ml [facility] Work Phone: LVOT VTI 23.0 cm [facility] Work Phone: LVOT:AV VTI Index 0.32 [facility] Work Phone: LVPWd 1.5 cm Abnormal 0.6 - 0.9 cm [facility] Work Phone: MR VTI 167.4 cm [facility] Work Phone: MV A Velocity 0.53 m/s [facility] Work Phone: MV Area by PHT 3.0 cm2 [facility] Work Phone: MV Area by VTI 2.1 cm2 [facility] Work Phone: MV E Velocity 0.90 m/s [facility] Work Phone: MV E Wave Deceleration Time 149.3 ms [facility] Work Phone: MV E/A 1.70 [facility] Work Phone: MV Max Velocity 1.2 m/s [facility] Work Phone: MV Mean Gradient 2 mmHg [facility] Work Phone: MV Mean Velocity 0.6 m/s [facility] Work Phone: MV Nyquist Velocity 30 cm/s [facility] Work Phone: MV Peak Gradient 6 mmHg [facility] Work Phone: MV PHT 73.0 ms [facility] Work Phone: MV Regurg Velocity PISA 5.3 m/s S [facility] Work Phone: MV VTI 46.5 cm [facility] Work Phone: MV:LVOT VTI Index 2.02 [facility] Work Phone: RA Area 4C 65.2 mL [facility] Work Phone: RV Basal Dimension 3.4 cm [facility] Work Phone: RV Free Wall Peak S' 9 cm/s [facility] Work Phone: RV Mid Dimension 1.4 cm [facility] Work Phone: RVSP 41 mmHg [facility] Work Phone: Sinotubular Junction 2.5 cm [facility] Work Phone: TAPSE 1.7 cm 1.7 cm [facility] Work Phone: TR Max Velocity 3.10 m/s [facility] Work Phone: [facility] Work Phone: Heart Transthoracicon [...] on 12-26-2023 Heart rate 37 /min bpm [place] Work Phone: Vital signson 12-26-2023 Heart rate 51 /min bpm [place] BASIC METABOLIC PANELon 10-0 Anion gap [Moles/Vol] 9 mmol/L Normal 3-13 [facility] Comment on above: Performed By: #### L AB15 ####Sales And Service Officer: AIDE RUEDA ([id number])[facility])[address] [place] [address] Calcium [Mass/Vol] 8.5 mg/dL Normal 8.4-10.4 [facility] Comment on above: Performed By: #### L AB15 ####Sales And Service Officer: AIDE RUEDA ([id number])[facility] ([facility])[address] [place] [address] Chloride [Moles/Vol] 113 mmol/L High 98-107 [facility] Comment on above: Performed By: #### L AB15 ####Sales And Service Officer: AIDE RUEDA ([id number])[facility])[address] [place] [address] CO2 [Moles/Vol] 19 mmol/L Low 22-30 [facility] Comment on above: Performed By: #### L AB15 ####Sales And Service Officer: AIDE RUEDA ([id number])[facility])[address] [place] [address] Creatinine [Mass/Vol] 1.09 mg/dL High 0.52-1.04 [facility] Comment on above: Performed By: #### L AB15 ####Sales And Service Officer: AIDE RUEDA ([id number])[facility])[address] [place] [address] GLOMERULAR FILTRATION RATE ML/MIN/1.73 SQ M.PREDICTED 50.5 mL/min/1.73m*2 Low >60.0 [facility] Comment on above: Result Comment: Calc ulation based on the Chronic Kidney Disease Epidemiology Collaboration (CKD-EPI) equation refit without adjustment for race ORDER COMMENTS: Slightly Hemolyzed. Interpret {TESTS AFFECTED BY SLIGHT HEMOLYSIS:[id number]} with caution. Performed By: #### L AB15 ####Sales And Service Officer: AIDE RUEDA ([id number])[facility])[address] [place] [address] Glucose [Mass/Vol] 148 mg/dL High 70-100 [facility] Comment on above: Performed By: #### L AB15 ####Sales And Service Officer: AIDE RUEDA ([id number])[facility] ([facility])[address] [place] [address] Potassium [Moles/Vol] 4.7 mmol/L Normal 3.5-5.1 [facility] Comment on above: Performed By: #### L AB15 ####Sales And Service Officer: ADIE RUEDA ([id number])[facility] ([facility])[address] [place] [address] Sodium [Moles/Vol] 141 mmol/L Normal 135-145 [facility] Comment on above: Performed By: #### L AB15 ####Sales And Service Officer: AIDE RUEDA ([id number])[facility] ([facility])[address] [place] [address] Urea nitrogen [Mass/Vol] 28 mg/dL High 7-17 [facility] Comment on above: Performed By: #### L AB15 ####Sales And Service Officer: AIDE RUEDA ([id number])[facility] ([facility])[address] [place] [address] BLOOD TYPE AND SCREEN GELon 12-25-2023 ABO GROUPING O Normal [facility] Comment on above: Performed By: #### L [id number] #### Sales And Service Officer: AIDE RUEDA ([phone]) [facility] ([facility]) [address] [place] [address] RH TYPE IN BLOOD Positive Normal [facility] Comment on above: Performed By: #### L [id number] #### Sales And Service Officer: AIDE RUEDA ([id number]) [facility] ([facility]) [address] [place] [address] [place] Basic metabolic 1998 panelon 12-25-2023 Anion gap [Moles/Vol] 9 mmol/L 3 - 13 mmol/L [facility] Calcium [Mass/Vol] 8.5 mg/dL 8.4 - 10. 4 mg/dL [facility] Chloride [Moles/Vol] 113 mmol/L High 98 - 10 7 mmol/L [facility] CO2 [Moles/Vol] 19 mmol/L Low 22 - 30 mmol/L [facility] Creatinine [Mass/Vol] 1.09 mg/dL High 0.52 - 1.04 mg/dL [facility] GFR/1.73 sq M.predicted (S/P/Bld) [Vol rate/Area] 50.5 mL/min Low - PINF [facility] Comment on above: Calculation based on the Chronic Kidney Disease Epidemiology Collaboration (CKD-EPI) equation refit without adjustment for race Glucose [Mass/Vol] 148 mg/dL High 70 - 100 mg/dL [facility] Interpretation and review of laboratory results Abnormal [facility] Potassium [Moles/Vol] 4.7 mmol/L 3.5 - 5.1 mmol/L [facility] Sodium [Moles/Vol] 141 mmol/L 135 - 145 mmol/L [facility] Urea nitrogen [Mass/Vol] 28 mg/dL High 7 - 17 mg/dL [facility] Slightly Hemolyzed. Interpret {TESTS AFFECTED BY SLIGHT HEMOLYSIS:82381} with caution. [facility] Blood type and Crossmatch pa justin (Bld)on 12-25-2023 ABO group Nom (Bld) O [facility] Blood group antibody screen GEL Ql Negative [facility]) [facility] CBC (HEMOGRAM)on 12-25-2023 Erythrocyte distribution width (RBC) [Ratio] 13.3 % Normal 11.5-15.0 [facility] Comment on above: Performed By: #### L [id number] ####Sales And Service Officer: AIDE RUEDA ([phone])[address] Hematocrit (Bld) [Volume fraction] 39.5 % Normal 35.0-47.0 [facility] Comment on above: Performed By: #### L [id number] ####Sales And Service Officer: AIDE RUEDA ([id number])[facility])[address] [place] [address] Hemoglobin (Bld) [Mass/Vol] 13.0 g/dL Normal 11.7-16.0 [facility] Comment on above: Performed By: #### L [id number] ####Sales And Service Officer: AIDE RUEDA ([id number])[facility])[address] [place] [address] MCH (RBC) [Entitic mass] 31.9 pg Normal 26.0-34.0 [facility] Comment on above: Performed By: #### L [id number] ####Sales And Service Officer: AIDE RUEDA ([phone])[facility])[address] [place] [address] MCHC 32.9 % Normal 30.5-36.0 [facility] Comment on above: Performed By: #### L [id number] ####Sales And Service Officer: AIDE RUEDA ([id number])[facility])[address] [place] [address] MCV (RBC) [Entitic vol] 97.1 fL Normal 77.0-99.0 [facility] Comment on above: Performed By: #### L [id number] ####Sales And Service Officer: AIDE RUEDA ([id number])[facility])[address] [place] [address] Platelet mean volume (Bld) [Entitic vol] 12.2 fL Normal 9.0-12.7 [facility] Comment on above: Performed By: #### L [id number] ####Sales And Service Officer: AIDE RUEDA ([id number])[facility])[address] [place] [address] Platelets (Bld) [#/Vol] 140 10*3/uL Normal 140-440 [facility] Comment on above: Performed By: #### L [id number] ####Sales And Service Officer: AIDE RUEDA ([id number])[facility])[address] [place] [address] RBC (Bld) [#/Vol] 4.07 10*6/uL Normal 3.80-5.20 [facility] Comment on above: Performed By: #### L [id number] ####Sales And Service Officer: AIDE RUEDA ([id number])[facility] ([facility])[address] [place] [address] WBC (Bld) [#/Vol] 9.1 10*3/uL Normal 3.6-10.7 [facility] Comment on above: Performed By: #### L [id number] ####Sales And Service Officer: AIDE RUEDA ([phone])[facility] ([facility])[address] [place] [address] CBC panel Auto (Bld)on 12-24 Erythrocyte distribution width (RBC) [Ratio] 13.3 % 11.5 - 15.0 % [facility] Hematocrit (Bld) [Volume fraction] 39.5 % 35.0 - 47.0 % [facility] Hemoglobin (Bld) [Mass/Vol] 13.0 g/dL 11.7 - 16.0 g/dL [facility] Interpretation and review of laboratory results Normal [facility] MCH (RBC) [Entitic mass] 31.9 pg 26.0 - 34.0 pg [facility] MCHC (RBC) [Mass/Vol] 32.9 % 30.5 - 36.0 % [facility] MCV (RBC) [Entitic vol] 97.1 fL 77.0 - 99.0 fL [facility] Platelet mean volume (Bld) [Entitic vol] 12.2 fL 9.0 - 12.7 fL [facility] Platelets (Bld) [#/Vol] 140 10*3/uL 140 - 440 10*3/uL [facility] RBC (Bld) [#/Vol] 4.07 10*6/uL 3.80 - 5.2 0 10*6/uL [facility] WBC (Bld) [#/Vol] 9.1 10*3/uL 3.6 - 10.7 10*3/uL [facility] Cardiac catheterization stud yon 12-25-2023 Successful sxnfw-ke-kykig TAVR with a 23mm soumya S3u, via [...] Via the left femoral vein, a 6 [place] Islander sheath was placed and temporary pacing wire was placed into the RV apex with appropriate capture, in addition sterile tubing was attached and given the anesthesia for central access. Via right radial artery, a 6-[place]er sheath was placed and the pigtail catheter was placed into the aortic annulus with confirmation the implant angle. Via the left femoral artery, a 6-[place] Islander sheath was placed. The patient was then heparinized. Next, two Perclose devices were used using the pre-close strategy. A Super Stiff wire was then placed through the second Perclose into the descending aorta. Then, a 14-[place] Islander Soumya E-sheath was introduced over the wire [...] care of your patient while hospitalized at [facility]. I will continue to follow along while hospitalized. Please do not hesitate to call with any questions. [facility] [employer] No Panel Informationon 12-24 Blood Expiration Date S [facility] [employer] Blood Expiration Date S [facility] [employer] Crossmatch interpretation COMP [employer] Dispense Status Crossmatch [employer] [place] Product Blood Type 5100 [place] PRODUCT CODE [id number] [place] PRODUCT CODE [id number] [employer] Unit ABO O [place] Unit Number [id number] [employer] [facility] Unit Number [id number] [facility] Unit RH Positive [facility] [employer] Unit Volume 300 mL [facility] [employer] Op Noteon 12-25-2023 Op Note Date of [...] The valve was passed through the 14 [place] Islander sapient E sheath into the descending thoracic [...] was decannulated transferred stable to recovery. Normal [facility] US Heart TransthoracicOrdere d By: Otto Fernandez on 12-25-2023 AV Area (Pre-TAVR) 0.3 cm2 [facility] Work Phone: AV Area by Peak Velocity 0.7 cm2 [facility] Work Phone: AV Area by VTI 0.7 cm2 [facility] Work Phone: AV Mean Gradient 14 mmHg [facility] Work Phone: AV Mean Gradient (Pre-TAVR) 59 mmHg [facility] Work Phone: AV Mean Velocity 1.7 m/s [facility] Work Phone: AV Peak Gradient 25 mmHg [facility] Work Phone: AV Peak Gradient (Pre-TAVR) 93 mmHg [facility] Work Phone: AV Peak Velocity 2.5 m/s [facility] Work Phone: AV Peak Velocity (Pre-TAVR) 4.8 m/s [facility] Work Phone: AV Velocity Ratio 0.20 [facility] Work Phone: AV VTI 60.2 cm [facility] Work Phone: RAMÓN/BSA Peak Velocity 0.3 cm2/m2 [facility] Work Phone: RAMÓN/BSA VTI 0.3 cm2/m2 [facility] Work Phone: Est. RA Pressure 3 mmHg [facility] Work Phone: LVOT Area 3.1 cm2 [facility] Work Phone: LVOT Cardiac Output 1.6 liter/mi nut e [facility] Work Phone: LVOT Diameter 2.0 cm [facility] Work Phone: LVOT Mean Gradient 1 mmHg [facility] Work Phone: LVOT Peak Gradient 1 mmHg [facility] Work Phone: LVOT Peak Velocity 0.5 m/s [facility] [employer] Work Phone: LVOT Stroke Volume Index 20.6 mL/m2 [facility] [employer] Work Phone: LVOT SV 42.7 ml [facility] Work Phone: LVOT VTI 13.6 cm [facility] Work Phone: LVOT:AV VTI Index 0.23 [facility] Work Phone: RVSP 51 mmHg [facility] Work Phone: TR Max Velocity 3.45 m/s [facility] Work Phone: TR Peak Gradient 48 mmHg [facility] Work Phone: [facility] Work Phone: Heart Transthoracicon Aortic Valve: Lucia [...] TAVR Patient Name: BRIANNE CALL : 1940 [facility] [facility] [id number] Exam Date/Time: 12/12/2023 10:40 Procedure: CT ANGIOGRAM [...] 12/22/2023 11:10 AM EDT --------ORIGINAL REPORT -------- [facility] Valve [facility] Cardiovascular CTA Indication: 83 year-old woman with severe aortic stenosis, being evaluated for transcatheter aortic valve implantation. Technique: Computed tomography of the heart, thoracoabdominal aorta, and iliofemoral system was performed using a [employer] Aquilion One 320 detector scanner. Images were [...] VELEZ MEGGAN Reason For Exam: aortic stenosis [facility] Valve [facility] Cardiovascular CTA Indication: 83 year-old woman with severe aortic stenosis, being evaluated for transcatheter aortic valve implantation. Technique: Computed tomography of the heart, thoracoabdominal aorta, and iliofemoral system was performed usi (more content not included)... Normal [facility] 36on 12-21-2023 36 Patient has stage 3 b- 4 CKD, stable compared to previous. OK to proceed. [facility] 36 BMP received, reviewed, WHIT to enter, Creat 1.9 GFR 27. Teofilo David CNP to review. [facility] 36 I called [facility] for BMP, left message w/ OP lab to fax results. [place] 2633612-18-2023 36 I can not make any changes or cx the No Show b/c it's past. [place] 2633612-16-2023 36 Name of caller: Brianne Contact phone number: [phone] Relationship to Patient: patient Provider: Mónica VOGEL Practice: [facility] Chief Complaint/Reason for Call: Patient [...] business hours to return their call: N/A [place] 2633612-15-2023 36 Lab order faxed to [facility] [phone]/[address] 12-14-2023 36 Per Teofilo David DNP, will get BMP done on 12/19/23 in [place], RX for Prednisone pended. [place] to fax lab order to [facility], pt notified via phone and verbalizes understanding. [address] 12-13-2023 36 Pt returned my call, no further issues w/ itching/hives from contrast allergy. I reviewed need for BMP and Prednisone before TAVR. Of note, pt was unaware of any renal insufficiency in the past. Will discuss timing of BMP w/ Teofilo David DNP. [facility] 36 Per Teofilo David DNP, pt had allergic reaction to CTA contrast yesterday, and pt with increase in Creat. Plan for Dye Allergy Prep meds will be needed, and repeat BMP. I left vm message for pt to return call. Normal [facility] BLOOD TYPE AND SCREEN GELon 12-12-2023 ABO GROUPING O Normal [facility] Comment on above: Performed By: #### L [id number] ####Sales And Service Officer: AIDE RUEDA ([phone])[facility] ([facility])[address] [place] [address] RH TYPE IN BLOOD Positive Normal [facility] Comment on above: Performed By: #### L [id number] ####Sales And Service Officer: AIDE RUEDA ([id number])[facility] ([facility])[address] [place] [address] Blood type and Crossmatch pa justin (Bld)on 12-12-2023 ABO group Nom (Bld) O [facility] Blood group antibody screen GEL Ql Negative [facility] D Ag Ql (RBC) Positive [facility] CBC W Auto Differential pane l (Bld)on 12-12-2023 Basophils (Bld) [#/Vol] 0.1 10*3/uL 0.0 - 0.2 10*3/uL [facility] Basophils/100 WBC (Bld) 1.3 % 0.0 - 2.0 % [facility] Eosinophils (Bld) [#/Vol] 0.1 10*3/uL 0.0 - 0.5 10*3/uL [facility] Eosinophils/100 WBC (Bld) 2.0 % 0.0 - 6.0 % [facility] Erythrocyte distribution width (RBC) [Ratio] 13.1 % 11.5 - 15.0 % [facility] Hematocrit (Bld) [Volume fraction] 48.1 % High 35.0 - 47.0 % [facility] [employer] Hemoglobin (Bld) [Mass/Vol] 16.0 g/dL 11.7 - 16.0 g/dL [facility] [employer] Immature granulocytes (Bld) [#/Vol] 0.1 10*3/uL High NINF - 0.1 10*3/uL [facility] [employer] Immature granulocytes/100 WBC (Bld) 0.7 % 0.0 - 2.0 % [facility] Interpretation and review of laboratory results Abnormal [facility] Lymphocytes (Bld) [#/Vol] 1.6 10*3/uL 1.0 - 4.3 10*3/uL [facility] Lymphocytes/100 WBC (Bld) 23.0 % 15.0 - 45.0 % [facility] MCH (RBC) [Entitic mass] 31.7 pg 26.0 - 34.0 pg [facility] MCHC (RBC) [Mass/Vol] 33.3 % 30.5 - 36.0 % [facility] MCV (RBC) [Entitic vol] 95.2 fL 77.0 - 99.0 fL [facility] Monocytes (Bld) [#/Vol] 1.0 10*3/uL High 0.0 - 0.9 10*3/uL [facility] Monocytes/100 WBC (Bld) 14.2 % High 5.0 - 13.0 % [facility] Neutrophils (Bld) [#/Vol] 4.0 10*3/uL 1.8 - 7.5 10*3/uL [facility] Neutrophils/100 WBC (Bld) 58.8 % 38.0 - 82.0 % [facility] Nucleated RBC/100 WBC (Bld) [Ratio] 0.0 % [facility] [employer] Platelet mean volume (Bld) [Entitic vol] 13.0 fL High 9.0 - 12.7 fL [facility] Platelets (Bld) [#/Vol] 194 10*3/uL 140 - 440 10*3/uL [facility] RBC (Bld) [#/Vol] 5.05 10*6/uL 3.80 - 5.2 0 10*6/uL [facility] WBC (Bld) [#/Vol] 6.9 10*3/uL 3.6 - 10.7 10*3/uL [facility] CBC WITH AUTO DIFFERENTIALon 12-12-2023 Basophils (Bld) [#/Vol] 0.1 10*3/uL Normal 0.0-0.2 [facility] Comment on above: Performed By: #### L [id number] ####Sales And Service Officer: AIDE RUEDA ([phone])[address] Basophils/100 WBC (Bld) 1.3 % Normal 0.0-2.0 [facility] Comment on above: Performed By: #### L [id number] ####Sales And Service Officer: AIDE RUEDA ([id number])[facility])[address] [place] [address] Eosinophils (Bld) [#/Vol] 0.1 10*3/uL Normal 0.0-0.5 [facility] Comment on above: Performed By: #### L [id number] ####Sales And Service Officer: AIDE RUEDA ([id number])[facility] ([facility])[address] [place] [address] Eosinophils/100 WBC (Bld) 2.0 % Normal 0.0-6.0 [facility] Comment on above: Performed By: #### L [id number] ####Sales And Service Officer: AIDE RUEDA ([id number])[facility])[address] [place] [address] Erythrocyte distribution width (RBC) [Ratio] 13.1 % Normal 11.5-15.0 [facility] Comment on above: Performed By: #### L [id number] ####Sales And Service Officer: AIDE RUEDA ([phone])[facility])[address] [place] [address] Hematocrit (Bld) [Volume fraction] 48.1 % High 35.0-47.0 [facility] Comment on above: Performed By: #### L [id number] ####Sales And Service Officer: AIDE RUEDA ([id number])[facility])[address] [place] [address] Hemoglobin (Bld) [Mass/Vol] 16.0 g/dL Normal 11.7-16.0 [facility] Comment on above: Performed By: #### L [id number] ####Sales And Service Officer: AIDE RUEDA ([id number])[facility])[address] [place] [address] IMMATURE GRANS % 0.7 % Normal 0.0-2.0 [facility] Comment on above: Performed By: #### L [id number] ####Sales And Service Officer: AIDE RUEDA ([id number])[facility])[address] [place] [address] IMMATURE GRANS ABSOLUTE 0.1 10*3/uL High <0.1 [facility] Comment on above: Performed By: #### L [id number] ####Sales And Service Officer: AIDE RUEDA ([id number])[facility])[address] [place] [address] Lymphocytes (Bld) [#/Vol] 1.6 10*3/uL Normal 1.0-4.3 [facility] Comment on above: Performed By: #### L [id number] ####Sales And Service Officer: AIDE RUEDA ([id number])[address] Lymphocytes/100 WBC (Bld) 23.0 % Normal 15.0-45.0 [facility] Comment on above: Performed By: #### L [id number] ####Sales And Service Officer: AIDE RUEDA ([id number])[facility])[address] [place] [address] MCH (RBC) [Entitic mass] 31.7 pg Normal 26.0-34.0 [facility] Comment on above: Performed By: #### L [id number] ####Sales And Service Officer: AIDE RUEDA ([id number])[facility])[address] [place] [address] MCHC 33.3 % Normal 30.5-36.0 [facility] Comment on above: Performed By: #### L [id number] ####Sales And Service Officer: AIDE RUEDA ([id number])[facility])[address] [place] [address] MCV (RBC) [Entitic vol] 95.2 fL Normal 77.0-99.0 [facility] Comment on above: Performed By: #### L [id number] ####Sales And Service Officer: AIDE RUEDA ([id number])[facility])[address] [place] [address] Monocytes (Bld) [#/Vol] 1.0 10*3/uL High 0.0-0.9 [facility] Comment on above: Performed By: #### L [id number] ####Sales And Service Officer: AIDE RUEDA ([id number])[facility] ([facility])[address] [place] [address] Monocytes/100 WBC (Bld) 14.2 % High 5.0-13.0 [facility] Comment on above: Performed By: #### L [id number] ####Sales And Service Officer: AIDE RUEDA ([id number])[facility] ([facility])[address] [place] [address] NEUTROPHILS ABSOLUTE 4.0 10*3/uL Normal 1.8-7.5 [facility] Comment on above: Performed By: #### L [id number] ####Sales And Service Officer: AIDE RUEDA ([id number])[facility] ([facility])[address] [place] [address] Neutrophils/100 WBC (Bld) 58.8 % Normal 38.0-82.0 [facility] Comment on above: Performed By: #### L [id number] ####Sales And Service Officer: AIDE RUEDA ([id number])[facility] ([facility])[address] [place] [address] NRBC 0.0 /100 WBCs Normal 0.0-2.0 [facility] Comment on above: Performed By: #### L [id number] ####Sales And Service Officer: AIDE RUEDA ([id number])[facility] ([facility])[address] [place] [address] Platelet mean volume (Bld) [Entitic vol] 13.0 fL High 9.0-12.7 [facility] Comment on above: Performed By: #### L [id number] ####Sales And Service Officer: AIDE RUEDA ([id number])[facility] ([facility])[address] [place] [address] [place] Platelets (Bld) [#/Vol] 194 10*3/uL Normal 140-440 [facility] Comment on above: Performed By: #### L [id number] ####Sales And Service Officer: AIDE RUEDA ([id number])[facility])[address] [place] [address] RBC (Bld) [#/Vol] 5.05 10*6/uL Normal 3.80-5.20 [facility] Comment on above: Performed By: #### L [id number] ####Sales And Service Officer: AIDE RUEDA ([id number])[facility])[address] [place] [address] WBC (Bld) [#/Vol] 6.9 10*3/uL Normal 3.6-10.7 [facility] Comment on above: Performed By: #### L [id number] ####Sales And Service Officer: AIDE RUEDA ([id number])[facility])[address] [place] [address] COMPREHENSIVE METABOLIC PANE [place] 12-12-2023 Albumin [Mass/Vol] 4.1 g/dL Normal 3.5-5.0 [facility] Comment on above: Performed By: #### L AB106, LAB17 ####Sales And Service Officer: AIDE RUEDA ([id number])[facility])[address] [place] [address] ALP [Catalytic activity/Vol] 70 U/L Normal 38-126 [facility] Comment on above: Performed By: #### L AB106, LAB17 ####Sales And Service Officer: AIDE RUEDA ([id number])[facility])[address] [place] [address] ALT [Catalytic activity/Vol] 18 U/L Normal 0-34 [facility] Comment on above: Performed By: #### L AB106, LAB17 ####Sales And Service Officer: AIDE RUEDA ([id number])[facility])[address] [place] [address] Anion gap [Moles/Vol] 11 mmol/L Normal 3-13 [facility] Comment on above: Performed By: #### L AB106, LAB17 ####Sales And Service Officer: AIDE RUEDA ([id number])[facility] ([facility])[address] [place] [address] AST [Catalytic activity/Vol] 52 U/L High 15-46 [facility] Comment on above: Performed By: #### L AB106, LAB17 ####Sales And Service Officer: AIDE RUEDA ([id number])[facility] ([facility])[address] [place] [address] Bilirubin [Mass/Vol] 1.0 mg/dL Normal 0.2-1.3 [facility] Comment on above: Performed By: #### L AB106, LAB17 ####Sales And Service Officer: AIDE RUEDA ([id number])[facility] ([facility])[address] [place] [address] Calcium [Mass/Vol] 9.3 mg/dL Normal 8.4-10.4 [facility] Comment on above: Performed By: #### L AB106, LAB17 ####Sales And Service Officer: AIDE RUEDA ([id number])[facility] ([facility])[address] [place] [address] [place] Chloride [Moles/Vol] 103 mmol/L Normal 98-107 [facility] Comment on above: Performed By: #### L AB106, LAB17 ####Sales And Service Officer: AIDE RUEDA ([id number])[facility] ([facility])[address] [place] [address] [place] CO2 [Moles/Vol] 22 mmol/L Normal 22-30 [facility] Comment on above: Performed By: #### L AB106, LAB17 ####Sales And Service Officer: AIDE RUEDA ([id number])[facility] ([facility])[address] [place] [address] [place] Creatinine [Mass/Vol] 1.95 mg/dL High 0.52-1.04 [facility] Comment on above: Performed By: #### L AB106, LAB17 ####Sales And Service Officer: AIDE RUEDA ([id number])[facility])[address] [place] [address] [place] GLOMERULAR FILTRATION RATE ML/MIN/1.73 SQ M.PREDICTED 25.1 mL/min/1.73m*2 Low >60.0 [facility] Comment on above: Result Comment: Calc ulation based on the Chronic Kidney Disease Epidemiology Collaboration (CKD-EPI) equation refit without adjustment for race ORDER COMMENTS: Slightly Hemolyzed. Interpret Potassium, Alkaline Phosphatase, and AST with caution. Performed By: #### L AB106, LAB17 ####Sales And Service Officer: AIDE RUEDA ([phone])[facility])[address] [place] [address] [place] Glucose [Mass/Vol] 107 mg/dL High 70-100 [facility] Comment on above: Performed By: #### L AB106, LAB17 ####Sales And Service Officer: AIDE RUEDA ([id number])[facility])[address] [place] [address] [place] Potassium [Moles/Vol] 4.3 mmol/L Normal 3.5-5.1 [facility] Comment on above: Performed By: #### L AB106, LAB17 ####Sales And Service Officer: AIDE RUEDA ([id number])[facility])[address] [place] [address] Protein [Mass/Vol] 7.9 g/dL Normal 6.3-8.2 [facility] Comment on above: Performed By: #### L AB106, LAB17 ####Sales And Service Officer: AIDE RUEDA ([id number])[facility])[address] [place] [address] [place] Sodium [Moles/Vol] 136 mmol/L Normal 135-145 [facility] Comment on above: Performed By: #### L AB106, LAB17 ####Sales And Service Officer: AIDE RUEDA ([id number])[facility])[address] [place] [address] [place] Urea nitrogen [Mass/Vol] 36 mg/dL High 7-17 [facility] Comment on above: Performed By: #### L AB106, LAB17 ####Sales And Service Officer: AIDE RUEDA ([id number])[facility] ([address] Comprehensive metabolic 1998 panelon 12-12-2023 Albumin [Mass/Vol] 4.1 g/dL 3.5 - 5.0 g/dL [facility] ALP [Catalytic activity/Vol] 70 U/L 38 - 126 U/L [facility] ALT [Catalytic activity/Vol] 18 U/L 0 - 34 U/L [facility] Anion gap [Moles/Vol] 11 mmol/L 3 - 13 mmol/L [facility] AST [Catalytic activity/Vol] 52 U/L High 15 - 46 U/L [facility] Bilirubin [Mass/Vol] 1.0 mg/dL 0.2 - 1 .3 mg/dL [facility] Calcium [Mass/Vol] 9.3 mg/dL 8.4 - 10. 4 mg/dL [facility] Chloride [Moles/Vol] 103 mmol/L 98 - 10 7 mmol/L [facility] CO2 [Moles/Vol] 22 mmol/L 22 - 30 mmol/L [facility] Creatinine [Mass/Vol] 1.95 mg/dL High 0.52 - 1.04 mg/dL [facility] GFR/1.73 sq M.predicted (S/P/Bld) [Vol rate/Area] 25.1 mL/min Low - PINF [facility] Comment on above: Calculation based on the Chronic Kidney Disease Epidemiology Collaboration (CKD-EPI) equation refit without adjustment for race Glucose [Mass/Vol] 107 mg/dL High 70 - 100 mg/dL [facility] Interpretation and review of laboratory results Abnormal [facility] Potassium [Moles/Vol] 4.3 mmol/L 3.5 - 5.1 mmol/L [facility] Protein [Mass/Vol] 7.9 g/dL 6.3 - 8.2 g/dL [facility] Sodium [Moles/Vol] 136 mmol/L 135 - 145 mmol/L [facility] Urea nitrogen [Mass/Vol] 36 mg/dL High 7 - 17 mg/dL [facility] Slightly Hemolyzed. Interpret Potassium, Alkaline Phosphatase, and AST with caution. [facility] NT PRO BNPon 12-12-2023 Natriuretic peptide B (Bld) [Mass/Vol] 2261 pg/mL High <450 [facility] Comment on above: Performed By: #### L AB106, LAB17 ####Sales And Service Officer: AIDE RUEDA ([phone])[facility] ([facility])[address] [place] [address] Natriuretic peptide B [Mass/ Vol]Ordered By: Bob Flores on 12-12-2023 Interpretation and review of laboratory results Abnormal [facility] Natriuretic peptide B (Bld) [Mass/Vol] 2261 pg/mL High NINF - 450 pg/mL [facility] Office Visiton 12-12-2023 Follow-up visit [id number] Brianne Call 1940 F Date Provider Department Center 12/12/2023 [id number]-AGLGXNMÓNICA DAVID [facility] [address] No family history on file Level of Service:77585 [place] OFFICE/OUTPATIENT ESTABLISHED MOD MDM 30 MIN Reason for Visit and Comments: Cardiac Valve Problem [1334] - Patient seen in private OP procedure area for H + P update and education prior to scheduled TAVR Normal [facility] Progress Noteon 12-12-2023 Progress Note Pts symptoms of the reaction have all gone away. Pt states she feels back to normal. Normal [facility] Progress Note [facility] [place] [address] [facility] [facility] [address] Dept: [phone] Dept Visit type: Established : 1940 Reason [...] mm Hg. She underwent cardiac cath at [place] which showed non obstructive CAD. He kidney [...] 100 mg 100 mg IntraVENous Once Mónica David, PIPEFITTER - MUSIC DIRECTOR sodium chloride 0.9 % bolus 500 mL [...] D deficiency Social (more content not included)... [facility] 12-08-2023 36 Approved [id number] 12/24-12/26/23 Calendars and Snapboard updated. [facility] 36 Messaged central scheduling through secure chat and CTA TAVR scheduled at [facility] at 11 am. [facility] 3612-07-2023 36 BJennifer Currie RT is out of office until Mon12/11/23. I spoke w/ [facility] Radiology Dept, I was sent to a "supervisor order takers" , I left vm message re: add on CTA @ [facility] for 12/11. [facility] 36 I spoke w/ Katherin in CS, re: [facility] IV hydration, having difficulty with adding pt, she will speak w/ coworker and call me back. I spoke w/ Jennifer RN in POP, they have pt on their schedule. I spoke w/ patient, reviewed NPO 4 hrs prior, all questions answered. I also spoke w/ Rossana in CS, CTA needs moved to [facility]. [facility] 36on 12-06-2023 36 Hydration orders faxed,confirmed and scanned under Media Submitted auth request on [facility]. Pending # [id number] On all 3 calendars. [place] [address] I spoke w/ pt and dtr Shama [...] 9:15, [place] notified to schedule/PA/snap board/calendars. [facility] 36 Patient returned my call. No issues with Right radial cath site, cath performed by Dr. Garces in [place], I called to have images pushed to PACS and fax report w/ recent labs. Labs reviewed from [place], drawn 11/28/23 GFR 31 prior to cath. Teofilo Velez CNP notified to review and advise if IV hydration is needed. [place] [address] I spoke w/ Medina in Dr. Garces's office, confirmed LHC completed, she will push images to PACS and fax report & lab results. I left vm message for dtr Shama to review pt status, discuss next steps BMP/CTA. [facility] 36on 12-05-2023 36 Chart note done. I faxed it and the EKG tracings to [phone]/[place] [address] Dr. Huffman verbally notified. Normal [facility] 36 Medina from [place] [facility] called requesting last OV note but PB has not finished yet. (11/22/23) [phone] They need the most recent EKG wave forms as well. Normal [facility] 36on 11-28-2023 36 Spoke w/ Juana @ [facility], cath scheduled for 12/04/23 w/ Dr. Garces. Normal [facility] ECG 12 lead - CLINIC PERFORM EDon 11-25-2023 Atrial fibrillation -Old anteroseptal infarct. -Diffuse nonspecific T-abnormality. ABNORMAL [facility] 36on 11-22-2023 36 Patient seen in Heart valve Clinic yesterday. Dr. Huffman spoke w/ Dr. Garces @ [facility], agreed for R/LHC to be done in [place]. I spoke w/ Maggie HACKETT in Dr. Garces' office, asked her to call me back with cath date. Need to expedite TAVR due to pt symptoms, will need to coordinate CTA, pt does have CKD, last creat was 1.38 done 08/10 scanned in media. Normal [facility] Office Visiton 11-21-2023 Follow-up visit [id number] Brianne Call 1940 F Date Provider Department Center 11/21/2023 [id number]-QVVLITHADDEUS MCKEON [facility] [address] No family history on file Level of Service:51416 [place] OFFICE/OUTPATIENT NEW MODERATE MDM 45 MINUTES Reason for Visit and Comments: Shortness of Breath [361221] Normal [facility] Follow-up visit [id number] Brianne Call 1940 F Date Provider Department Center 11/21/2023 20059-NYIAIZJUAN REED [facility] [address] No family history on file Level of Service:13966 [place] OFFICE/OUTPATIENT NEW HIGH MDM 60 MINUTES Reason for Visit and Comments: Cardiac Valve Problem [1334] Normal [facility] Follow-up visit [id number] Brianne Call 1940 F Date Provider Department Center 11/21/2023 [id number]-ZTJPGVMQTWEOHARJEET RUIZ [facility] [address] No family history on file Level of Service:84849 [place] OFFICE/OUTPATIENT NEW HIGH MDM 60 MINUTES Reason for Visit and Comments: Cardiac Valve Problem [1334] Normal [facility] PATINSon 11-21-2023 [facility] GERI[facility] DISCHARGE INSTRUCTIONS: Follow-up with [facility] (phone: [phone] fax: [phone]) as needed for memory testing. Please BEGIN [...] age and increased risk of falls. Normal [facility] Progress Noteon 11-21-2023 Progress Note [facility] [address] [facility] [facility] [address] Dept: [phone] Dept Loc: [phone] Today's Visit Location: TAVR (transcather aortic valve replacement) Clinic [facility] [address] [place] [address] Visit type: Senior Health Assessment at TAVR [...] agree with cardiology plan as discussed with trombone slide assembler Dr. Huffman and CTS Dr. Reed on [...] Patient has already named her Power of Mixing Tumbler Operator for Healthcare and Finances (Both are her daughter Shama López) I recommended patient follow-up with [facility] (phone: [phone] fax: [phone]) as needed for memory testing. 4. Drug-induced [...] Mean Gradient of 49. Dr. Garces in [place]. No aortic valve area mentioned. A fib [...] no=0 points)0 - patient rents room from . Rajiv (son) lives w pt Reduce mobility [...] pandemic. Revi (more content not included)... Normal [facility] Progress Note HR 58 bpm today but no syncope, presyncope, falls Patient asymptomatic today Patient taking lopressor 12.5mg po bid - I encouraged patient to discuss with her cardiologists/PCP (primary care provider) regarding change of meds given her advanced age and increased risk of falls Normal [facility] Progress Note [facility]: Cardiothoracic Surgery Multidisciplinary Heart Valve Clinic Date: 11/21/23 Patient:Brianne Call 1940 83 y.o. female [id number] Subjective: HPI: Brianne Call 83 y.o. referred [...] Take 25 mg by mouth daily. Historical ProviderMD Objective: BP 136/82 (BP Location: Left arm, [...] reactive b (more content not included)... Normal [facility] Progress Note Chronic Patient with occasional word-finding difficulties I suspect either normal memory loss for aging or possibly MCI (Mild Cognitive Impairment) Patient has already named her Power of Mixing Tumbler Operator for Healthcare and Finances (Both are her daughter Shama López) I recommended patient follow-up with [facility] (phone: [phone] fax: [phone]) as needed for memory testing. Normal [facility] Progress Note Chronic; Stable Asymptomatic May be nearing renal (kidney) dysfunction requiring reduced dose of eliquis (given Cr nearly 1.5 in past and patient's age >80 yo). May need eliquis 2.5mg po bid instead of 5mg po bid in future pending renal (kidney) function Normal [facility] Progress Note meds reviewed; appropriate May be [...] missing or doubling up on meds Normal [facility] Progress Note S/p AV replacement by Dr. Nagy in 201209/22/23 Transthoracic Echo (TTE) noted severe aortic stenosis". Mean Gradient of 49. Dr. Garces in [place]. No aortic valve area mentioned. I agree with cardiology plan as discussed with trombone slide assembler Dr. Huffman and CTS Dr. Reed on same date regarding next steps for further workup/treatment of cardiac disease which likely includes heart cath +/- TAVR. On this date of evaluation, the patient has sufficient understanding of procedure(s) to consent to the procedure(s) being discussed and has adequate social support(s). Normal [facility] Progress Note [facility] [address] [facility] [address] Dept: [phone] Dept Visit type: New : 1940 Reason for Visit: Cardiac Valve Problem Assessment and Plan 1. LV dysfunction 2. Stenosis of prosthetic aortic valve, initial encounter - ECG 12 lead - CLINIC PERFORMED This is a very pleasant 83 y.o. 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 she is clearly in need of aortic valve replacement, likely [id number] TAVR. Will need a diagnostic cath first, [...] Effort: Pulmonary (more content not included)... Normal [facility] Progress Noteon 11-17-2023 Progress Note Brianne Russell Call 83 y.o. referred by [...] thinner - Eliquis Transthoracic Echocardiogram 09/22/2023 Normal [facility] Absolute lymphocyte countOrd ered By: Scott Hull on 07-13-2023 Lymphocytes Auto (Unsp spec) [#/Vol] 1.36 10*3/uL 0.83-4.51 [facility] Automated lymphocyte count a s percentage of total leukocytesOrdered By: Scott Hull on 07-13-2023 Lymphocytes/100 WBC Auto (Unsp spec) 23.9 % 19-41 [facility] Basophil percentageOrdered B y: Scott Kurtis on 07-13-2023 Basophils/100 WBC (Bld) 1.4 % 0-1 [facility] Bilirubin [Mass/Vol] 1.30 mg/dL 0.20-1.00 [facility] Comment on above: For patients on eltr ombopag therapy, use of Dimension Carpenter TBIL is not recommended. Chloride [Moles/Vol] 107 mmol/L 98-107 [facility] Cholesterol [Mass/Vol] 170 mg/dL <200 [facility] Comment on above: <200 mg/dL Desirable 200-240 mg/dL Borderline >240 mg/dL High Risk Eosinophils/100 WBC (Bld) 1.6 % 0-5 [facility] Glucose [Mass/Vol] 108 mg/dL 74-106 [facility] Comment on above: Fasting Glucose resu lt from 100 to 125 mg/dL suggests IMPAIRED HOMEOSTASIS per A.D.A. criteria. Hemoglobin (Bld) [Mass/Vol] 15.2 g/dL 12.0-15.0 [facility] Monocytes/100 WBC (Bld) 12.6 % 0-10 [facility] Neutrophils (Bld) [#/Vol] 3.4 10*3/uL 2.0-7.7 [facility] Neutrophils/100 WBC (Bld) 59.8 % 47-70 [facility] Potassium [Moles/Vol] 4.2 mmol/L 3.5-5.1 [facility] Protein [Mass/Vol] 7.0 g/dL 6.4-8.2 [facility] Sodium [Moles/Vol] 138 mmol/L 136-145 [facility] Triglyceride [Mass/Vol] 186 mg/dL <199 [facility] Comment on above: The drugs N-Acetylcy steine and Metamizole may falsely depress this assay.Serum Triglycerides Reference Interval Normal <150 mg/dL Borderline high 150 - 199 mg/dL High 200 - 499 mg/dL Very High > or = 500 mg/dL WBC (Bld) [#/Vol] 5.7 10*3/uL 4.4-11.0 [facility] Determination of erythrocyte mean corpuscular volume (MCV)Ordered By: Scott Hull on 07-13-2023 MCV (RBC) [Entitic vol] 97.0 fL 81-99 [facility] Erythrocyte distribution wid th ratioOrdered By: [facility] on 07-13-2023 Erythrocyte distribution width (RBC) [Ratio] 13.1 % 11.6-14.6 [facility] Erythrocyte distribution wid th standard deviationOrdered By: [facility] on 07-13-2023 Erythrocyte distribution width (RBC) [Entitic vol] 47.2 fL 35.1-43.9 [facility] Hematocrit Auto (Bld) [Volum e fraction]Ordered By: [facility] on 07-13-2023 Hematocrit (Bld) [Volume fraction] 46.0 % 37-47 [facility] Immature granulocytes/100 WB C Auto (Bld)Ordered By: [facility] on 07-13-2023 Immature granulocytes/100 WBC (Bld) 0.700 % 0.0-0.9 [facility] Comment on above: IG% - Immature Granu locytes (promyelocytes, myelocytes and metamyelocytes) > 1% indicates that a LEFT SHIFT is Present. Laboratory - Chemistry and C hemistry - challengeOrdered By: Scott Kurtis on 07-13-2023 Albumin/Globulin [Mass ratio] 0.9 {ratio} 0.9-2.4 [facility] ALP [Catalytic activity/Vol] 64 U/L 45-117 [facility] ALT [Catalytic activity/Vol] 19 U/L 13-56 [facility] Cholesterol in HDL [Mass/Vol] 37 mg/dL >40 [facility] Comment on above: The drugs N-Acetylcy steine and Metamizole may falsely depress this assay. Reference Range HDL <40 mg/dL Low HDL Cholesterol HDL >or= 60 mg/dL High HDL Cholesterol Cholesterol in LDL [Mass/Vol] 96 mg/dL 0-130 [facility] CO2 [Moles/Vol] 26.0 mmol/L 21.0-32.0 [facility] Globulin (S) [Mass/Vol] 3.6 g/dL 2.2-4.2 [facility] Urea nitrogen/Creatinine [Mass ratio] 15.4 mg/mg 10-20 [facility] Laboratory - Hematology and Cell countsOrdered By: Scott Hull on 07-13-2023 MCH (RBC) [Entitic mass] 32.1 pg 27.0-32.0 [facility] MCHC (RBC) [Mass/Vol] 33.0 g/dL 32-36 [facility] Nucleated RBC/100 WBC (Bld) [Ratio] 0 % 0-5 [facility] Platelet mean volume (Bld) [Entitic vol] 12.7 fL 6.2-12.0 [facility] Platelets (Bld) [#/Vol] 190 10*3/uL 150-450 [facility] No Panel InformationOrdered By: Scott Hull on 07-13-2023 Estimated GFR (MDRD) Amer 50 mL/min >60 [facility] Comment on above: GFR Calc Estimated GFR (MDRD) Non-Af Amer 42 mL/min >60 [facility] Comment on above: Non- GFR Calc Vitamin D 25-Hydroxy 21.5 ng/mL [facility] Comment on above: Vitamin D 25(OH) Sta tus Range Deficiency <20 ng/mL (50nmol/L) Insufficiency 20 - 30 ng/mL (50 - 75 nmol/L) Sufficiency 30 - 100 ng/mL (75 - 250 nmol/L) Toxicity >100 ng/mL (>250 nmol/L) VLDL Cholesterol 37 mg/dL 5-40 [facility] RBC Auto (Bld) [#/Vol]Ordere d By: Scott Hull on 07-13-2023 RBC (Bld) [#/Vol] 4.74 10*6/uL 4.2-5.4 [facility] Serum or plasma calcium leah urement (mass/volume)Ordered By: Scott Hull on 07-13-2023 Calcium [Mass/Vol] 8.8 mg/dL 8.5-10.1 [facility] Serum or plasma creatinine m easurement (mass/volume)Ordered By: Scott Hull on 07-13-2023 Creatinine [Mass/Vol] 1.30 mg/dL 0.55-1.02 [facility] Comment on above: The validity of the calculated GFR & GFRAA in patients over 70 years has not been determined. Clinical correlation is essential. Serum or plasma thyroid stim ulating hormone (TSH) measurement (units/volume)Ordered By: Scott Kurtis on 07-13-2023 TSH Qn 2.73 uIU/mL 0.358-3.74 [facility] Serum or plasma urea nitroge n measurement (mass/volume)Ordered By: Scott Hull on 07-13-2023 Urea nitrogen [Mass/Vol] 20 mg/dL 7-18 [facility] Serum or plasma uric acid me asurement (mass/volume)Ordered By: Scott Hull on 07-13-2023 Urate [Mass/Vol] 4.5 mg/dL 2.6-6.0 [facility] Comment on above: The drugs N-Acetylcy steine and Metamizole may falsely depress this assay. Thin prep Papanicolaou smear with manual screeningOrdered By: Scott Hull on 07-13-2023 Thin prep Papanicolaou smear with manual screening 3.4 g/dL 3.2-5.0 [facility] Thin prep Papanicolaou smear with manual screening 26 U/L 15-37 [facility] Thin prep Papanicolaou smear with manual screening 5 5-15 [facility] Absolute lymphocyte countOrd ered By: Scott Kurtis on 01-05-2023 Lymphocytes Auto (Unsp spec) [#/Vol] 2.04 10*3/uL 0.83-4.51 [facility] Basophil percentageOrdered B y: Scott Kurtis on 01-05-2023 Basophils/100 WBC (Bld) 1.1 % 0-1 [facility] Bilirubin [Mass/Vol] 0.90 mg/dL 0.20-1.00 [facility] Comment on above: For patients on eltr ombopag therapy, use of Dimension Carpenter TBIL is not recommended. Chloride [Moles/Vol] 108 mmol/L 98-107 [facility] Eosinophils/100 WBC (Bld) 2.1 % 0-5 [facility] Glucose [Mass/Vol] 108 mg/dL 74-106 [facility] Comment on above: Fasting Glucose resu lt from 100 to 125 mg/dL suggests IMPAIRED HOMEOSTASIS per A.D.A. criteria. Neutrophils (Bld) [#/Vol] 3.9 10*3/uL 2.0-7.7 [facility] Neutrophils/100 WBC (Bld) 54.6 % 47-70 [facility] Potassium [Moles/Vol] 4.1 mmol/L 3.5-5.1 [facility] Protein [Mass/Vol] 7.2 g/dL 6.4-8.2 [facility] Sodium [Moles/Vol] 140 mmol/L 136-145 [facility] WBC (Bld) [#/Vol] 7.1 10*3/uL 4.4-11.0 [facility] Blood erythrocytes count (nu mber/volume)Ordered By: Scott Hull on 01-05-2023 RBC (Bld) [#/Vol] 4.90 10*6/uL 4.2-5.4 [facility] Blood hemoglobin measurement (mass/volume)Ordered By: Scott Hull on 01-05-2023 Hemoglobin (Bld) [Mass/Vol] 15.7 g/dL 12.0-15.0 [facility] Blood lymphocytes/100 leukoc ytesOrdered By: Scott Hull on 01-05-2023 Lymphocytes/100 WBC (Bld) 28.6 % 19-41 [facility] Blood monocytes/100 leukocyt esOrdered By: Scott Hull on 01-05-2023 Monocytes/100 WBC (Bld) 13.0 % 0-10 [facility] Blood platelet mean volumeOr dered By: Scott Hull on 01-05-2023 Platelet mean volume (Bld) [Entitic vol] 12.0 fL 6.2-12.0 [facility] Determination of erythrocyte mean corpuscular volume (MCV)Ordered By: Scott Hull on 01-05-2023 MCV (RBC) [Entitic vol] 98.2 fL 81-99 [facility] Hematocrit Auto (Bld) [Volum e fraction]Ordered By: Scott Hull on 01-05-2023 Hematocrit (Bld) [Volume fraction] 48.1 % 37-47 [facility] Laboratory - Chemistry and C hemistry - challengeOrdered By: Scott Hull on 01-05-2023 ALP [Catalytic activity/Vol] 63 U/L 45-117 [facility] ALT [Catalytic activity/Vol] 22 U/L 13-56 [facility] CO2 [Moles/Vol] 23.0 mmol/L 21.0-32.0 [facility] Globulin (S) [Mass/Vol] 3.9 g/dL 2.2-4.2 [facility] Urea nitrogen/Creatinine [Mass ratio] 15.3 mg/mg 10-20 [facility] Laboratory - Hematology and Cell countsOrdered By: Scott Hull on 01-05-2023 Erythrocyte distribution width (RBC) [Entitic vol] 49.0 fL 35.1-43.9 [facility] Erythrocyte distribution width (RBC) [Ratio] 13.5 % 11.6-14.6 [facility] Immature granulocytes/100 WBC (Bld) 0.600 % 0.0-0.9 [facility] Comment on above: IG% - Immature Granu locytes (promyelocytes, myelocytes and metamyelocytes) > 1% indicates that a LEFT SHIFT is Present. MCH (RBC) [Entitic mass] 32.0 pg 27.0-32.0 [facility] Nucleated RBC/100 WBC (Bld) [Ratio] 0 % 0-5 [facility] MCHC Auto (RBC) [Mass/Vol]Or dered By: Scott Hull on 01-05-2023 MCHC (RBC) [Mass/Vol] 32.6 g/dL 32-36 [facility] No Panel InformationOrdered By: Scott Hull on 01-05-2023 Estimated GFR (MDRD) Amer 56 mL/min >60 [facility] Comment on above: GFR Calc Estimated GFR (MDRD) Non-Af Amer 47 mL/min >60 [facility] Comment on above: Non- GFR Calc Thyroid Stimulating Hormone (TSH) 2.88 uIU/mL 0.358-3.74 [facility] Vitamin D 25-Hydroxy 16.6 ng/mL [facility] Comment on above: Vitamin D 25(OH) Sta tus Range Deficiency <20 ng/mL (50nmol/L) Insufficiency 20 - 30 ng/mL (50 - 75 nmol/L) Sufficiency 30 - 100 ng/mL (75 - 250 nmol/L) Toxicity >100 ng/mL (>250 nmol/L) Platelets bldOrdered By: Scott Hull on 01-05-2023 Platelets (Bld) [#/Vol] 227 10*3/uL 150-450 [facility] Serum or plasma albumin leah urement (mass/volume)Ordered By: Scott Hull on 01-05-2023 Albumin [Mass/Vol] 3.3 g/dL 3.2-5.0 [facility] Serum or plasma albumin/glob ulin mass ratioOrdered By: Scott Hull on 01-05-2023 Albumin/Globulin [Mass ratio] 0.8 {ratio} 0.9-2.4 [facility] Serum or plasma calcium leah urement (mass/volume)Ordered By: Scott Hull on 01-05-2023 Calcium [Mass/Vol] 8.7 mg/dL 8.5-10.1 [facility] Serum or plasma creatinine m easurement (mass/volume)Ordered By: Scott Hull on 01-05-2023 Creatinine [Mass/Vol] 1.18 mg/dL 0.55-1.02 [facility] Comment on above: The validity of the calculated GFR & GFRAA in patients over 70 years has not been determined. Clinical correlation is essential. Serum or plasma urea nitroge n measurement (mass/volume)Ordered By: Scott Hull on 01-05-2023 Urea nitrogen [Mass/Vol] 18 mg/dL 7-18 [facility] Serum or plasma uric acid me asurement (mass/volume)Ordered By: Scott Hull on 01-05-2023 Urate [Mass/Vol] 4.3 mg/dL 2.6-6.0 [facility] Comment on above: The drugs N-Acetylcy steine and Metamizole may falsely depress this assay. Thin prep Papanicolaou smear with manual screeningOrdered By: Scott Hull on 01-05-2023 Thin prep Papanicolaou smear with manual screening 18 U/L 15-37 [facility] Thin prep Papanicolaou smear with manual screening 9 5-15 [facility] Absolute lymphocyte countOrd ered By: Dr. Hull on 06-30-2022 Lymphocytes Auto (Unsp spec) [#/Vol] 1.80 10*3/uL 0.83-4.51 [facility] Basophil percentageOrdered B y: Dr. Hull on 06-30-2022 Basophils/100 WBC (Bld) 1.3 % 0-1 [facility] Bilirubin [Mass/Vol] 0.80 mg/dL 0.20-1.00 [facility] Comment on above: For patients on eltr ombopag therapy, use of Dimension Carpenter TBIL is not recommended. Chloride [Moles/Vol] 104 mmol/L 98-107 [facility] Eosinophils/100 WBC (Bld) 1.6 % 0-5 [facility] Glucose [Mass/Vol] 106 mg/dL 74-106 [facility] Comment on above: Fasting Glucose resu lt from 100 to 125 mg/dL suggests IMPAIRED HOMEOSTASIS per A.D.A. criteria. Neutrophils (Bld) [#/Vol] 5.8 10*3/uL 2.0-7.7 [facility] Neutrophils/100 WBC (Bld) 66.1 % 47-70 [facility] Potassium [Moles/Vol] 4.5 mmol/L 3.5-5.1 [facility] Protein [Mass/Vol] 6.9 g/dL 6.4-8.2 [facility] Sodium [Moles/Vol] 136 mmol/L 136-145 [facility] WBC (Bld) [#/Vol] 8.8 10*3/uL 4.4-11.0 [facility] Blood erythrocytes count (nu mber/volume)Ordered By: Dr. Hull on 06-30-2022 RBC (Bld) [#/Vol] 4.84 10*6/uL 4.2-5.4 [facility] Blood hemoglobin measurement (mass/volume)Ordered By: Dr. Hull on 06-30-2022 Hemoglobin (Bld) [Mass/Vol] 15.7 g/dL 12.0-15.0 [facility] Blood lymphocytes/100 leukoc ytesOrdered By: Dr. Hull on 06-30-2022 Lymphocytes/100 WBC (Bld) 20.5 % 19-41 [facility] Blood monocytes/100 leukocyt esOrdered By: Dr. Hull on 06-30-2022 Monocytes/100 WBC (Bld) 9.6 % 0-10 [facility] Blood platelet mean volumeOr dered By: Dr. Hull on 06-30-2022 Platelet mean volume (Bld) [Entitic vol] 12.5 fL 6.2-12.0 [facility] Determination of erythrocyte mean corpuscular volume (MCV)Ordered By: Dr. Hull on 06-30-2022 MCV (RBC) [Entitic vol] 97.5 fL 81-99 [facility] Hematocrit Auto (Bld) [Volum e fraction]Ordered By: Dr. Hull on 06-30-2022 Hematocrit (Bld) [Volume fraction] 47.2 % 37-47 [facility] Laboratory - Chemistry and C hemistry - challengeOrdered By: Dr. Hull on 06-30-2022 ALP [Catalytic activity/Vol] 74 U/L 45-117 [facility] ALT [Catalytic activity/Vol] 21 U/L 13-56 [facility] CO2 [Moles/Vol] 23.0 mmol/L 21.0-32.0 [facility] Globulin (S) [Mass/Vol] 3.4 g/dL 2.2-4.2 [facility] Urea nitrogen/Creatinine [Mass ratio] 18.2 mg/mg 10-20 [facility] Laboratory - Hematology and Cell countsOrdered By: Dr. Hull on 06-30-2022 Erythrocyte distribution width (RBC) [Entitic vol] 47.4 fL 35.1-43.9 [facility] Erythrocyte distribution width (RBC) [Ratio] 13.2 % 11.6-14.6 [facility] Immature granulocytes/100 WBC (Bld) 0.900 % 0.0-0.9 [facility] Comment on above: IG% - Immature Granu locytes (promyelocytes, myelocytes and metamyelocytes) > 1% indicates that a LEFT SHIFT is Present. MCH (RBC) [Entitic mass] 32.4 pg 27.0-32.0 [facility] Nucleated RBC/100 WBC (Bld) [Ratio] 0 % 0-5 [facility] MCHC Auto (RBC) [Mass/Vol]Or dered By: Dr. Hull on 06-30-2022 MCHC (RBC) [Mass/Vol] 33.3 g/dL 32-36 [facility] No Panel InformationOrdered By: Dr. Hull on 06-30-2022 Estimated GFR (MDRD) Amer 48 mL/min >60 [facility] Comment on above: GFR Calc Estimated GFR (MDRD) Non-Af Amer 39 mL/min >60 [facility] Comment on above: Non- GFR Calc Thyroid Stimulating Hormone (TSH) 3.20 uIU/mL 0.358-3.74 [facility] Vitamin D 25-Hydroxy 33.6 ng/mL [facility] Comment on above: Vitamin D 25(OH) Sta tus Range Deficiency <20 ng/mL (50nmol/L) Insufficiency 20 - 30 ng/mL (50 - 75 nmol/L) Sufficiency 30 - 100 ng/mL (75 - 250 nmol/L) Toxicity >100 ng/mL (>250 nmol/L) Platelets bldOrdered By: Dr. Hull on 06-30-2022 Platelets (Bld) [#/Vol] 252 10*3/uL 150-450 [facility] Serum or plasma albumin leah urement (mass/volume)Ordered By: Dr. Hull on 06-30-2022 Albumin [Mass/Vol] 3.5 g/dL 3.2-5.0 [facility] Serum or plasma albumin/glob ulin mass ratioOrdered By: Dr. Hull on 06-30-2022 Albumin/Globulin [Mass ratio] 1.0 {ratio} 0.9-2.4 [facility] Serum or plasma calcium leah urement (mass/volume)Ordered By: Dr. Hull on 06-30-2022 Calcium [Mass/Vol] 9.0 mg/dL 8.5-10.1 [facility] Serum or plasma creatinine m easurement (mass/volume)Ordered By: Dr. Hull on 06-30-2022 Creatinine [Mass/Vol] 1.37 mg/dL 0.55-1.02 [facility] Comment on above: The validity of the calculated GFR & GFRAA in patients over 70 years has not been determined. Clinical correlation is essential. Serum or plasma urea nitroge n measurement (mass/volume)Ordered By: Dr. Hull on 06-30-2022 Urea nitrogen [Mass/Vol] 25 mg/dL 7-18 [facility] Serum or plasma uric acid me asurement (mass/volume)Ordered By: Dr. Hull on 06-30-2022 Urate [Mass/Vol] 3.9 mg/dL 2.6-6.0 [facility] Comment on above: The drugs N-Acetylcy steine and Metamizole may falsely depress this assay. Thin prep Papanicolaou smear with manual screeningOrdered By: Dr. Hull on 06-30-2022 Thin prep Papanicolaou smear with manual screening 25 U/L 15-37 [facility] Thin prep Papanicolaou smear with manual screening 9 5-15 [facility] Absolute lymphocyte counton 12-30-2021 Lymphocytes Auto (Unsp spec) [#/Vol] 1.81 10*3/uL 0.83-4.51 [facility] Work Phone: Basophil percentageon 2021 Basophils/100 WBC (Bld) 1.1 % 0-1 [facility] Work Phone: Bilirubin [Mass/Vol] 1.10 mg/dL 0.20-1.00 [facility] Work Phone: Comment on above: For patients on eltr ombopag therapy, use of Dimension Carpenter TBIL is not recommended. Chloride [Moles/Vol] 108 mmol/L 98-107 [facility] Work Phone: Eosinophils/100 WBC (Bld) 1.4 % 0-5 [facility] Work Phone: Glucose [Mass/Vol] 104 mg/dL 74-106 [facility] Work Phone: Comment on above: Fasting Glucose resu lt from 100 to 125 mg/dL suggests IMPAIRED HOMEOSTASIS per A.D.A. criteria. Neutrophils (Bld) [#/Vol] 3.7 10*3/uL 2.0-7.7 [facility] Work Phone: Neutrophils/100 WBC (Bld) 55.7 % 47-70 [facility] Work Phone: Potassium [Moles/Vol] 4.1 mmol/L 3.5-5.1 [facility] Work Phone: Protein [Mass/Vol] 7.3 g/dL 6.4-8.2 [facility] Work Phone: Sodium [Moles/Vol] 138 mmol/L 136-145 [facility] Work Phone: WBC (Bld) [#/Vol] 6.6 10*3/uL 4.4-11.0 [facility] Work Phone: Blood erythrocytes count (nu mber/volume)on 12-30-2021 RBC (Bld) [#/Vol] 4.82 10*6/uL 4.2-5.4 [facility]: Blood hemoglobin measurement (mass/volume)on 12-30-2021 Hemoglobin (Bld) [Mass/Vol] 15.4 g/dL 12.0-15.0 [facility] Work Phone: Blood lymphocytes/100 leukoc yteson 12-30-2021 Lymphocytes/100 WBC (Bld) 27.5 % 19-41 [facility] Work Phone: Blood monocytes/100 leukocyt eson 12-30-2021 Monocytes/100 WBC (Bld) 13.7 % 0-10 [facility] Work Phone: Blood platelet mean volumeon 12-30-2021 Platelet mean volume (Bld) [Entitic vol] 12.6 fL 6.2-12.0 [facility] Work Phone: Determination of erythrocyte mean corpuscular volume (MCV)on 12-30-2021 MCV (RBC) [Entitic vol] 96.3 fL 81-99 [facility] Work Phone: Hematocrit Auto (Bld) [Volum e fraction]on 12-30-2021 Hematocrit (Bld) [Volume fraction] 46.4 % 37-47 [facility] Work Phone: Laboratory - Chemistry and C hemistry - challengeon 12-30-2021 ALP [Catalytic activity/Vol] 78 U/L 45-117 [facility] Work Phone: ALT [Catalytic activity/Vol] 23 U/L 13-56 [facility] Work Phone: CO2 [Moles/Vol] 23.0 mmol/L 21.0-32.0 [facility] Work Phone: Globulin (S) [Mass/Vol] 3.9 g/dL 2.2-4.2 [facility] Work Phone: Urea nitrogen/Creatinine [Mass ratio] 19.0 mg/mg 10-20 [facility] Work Phone: Laboratory - Hematology and Cell countson 12-30-2021 Erythrocyte distribution width (RBC) [Entitic vol] 45.9 fL 35.1-43.9 [facility] Work Phone: Erythrocyte distribution width (RBC) [Ratio] 13.0 % 11.6-14.6 [facility] Work Phone: Immature granulocytes/100 WBC (Bld) 0.600 % 0.0-0.9 [facility] Work Phone: Comment on above: IG% - Immature Granu locytes (promyelocytes, myelocytes and metamyelocytes) > 1% indicates that a LEFT SHIFT is Present. MCH (RBC) [Entitic mass] 32.0 pg 27.0-32.0 [facility] Work Phone: Nucleated RBC/100 WBC (Bld) [Ratio] 0 % 0-5 [facility] Work Phone: MCHC Auto (RBC) [Mass/Vol]on 12-30-2021 MCHC (RBC) [Mass/Vol] 33.2 g/dL 32-36 [facility] Work Phone: No Panel Informationon 12-30 Estimated GFR (MDRD) Amer 58 mL/min >60 [facility] Work Phone: Comment on above: GFR Calc Estimated GFR (MDRD) Non-Af Amer 48 mL/min >60 [facility] Work Phone: Comment on above: Non- GFR Calc Thyroid Stimulating Hormone (TSH) 2.92 uIU/mL 0.358-3.74 [facility] Work Phone: Vitamin D 25-Hydroxy 18.4 ng/mL [facility] Work Phone: Comment on above: Vitamin D 25(OH) Sta tus Range Deficiency <20 ng/mL (50nmol/L) Insufficiency 20 - 30 ng/mL (50 - 75 nmol/L) Sufficiency 30 - 100 ng/mL (75 - 250 nmol/L) Toxicity >100 ng/mL (>250 nmol/L) Platelets bldon 12-30-2021 Platelets (Bld) [#/Vol] 222 10*3/uL 150-450 [facility] Work Phone: Serum or plasma albumin leah urement (mass/volume)on 12-30-2021 Albumin [Mass/Vol] 3.4 g/dL 3.2-5.0 [facility] Work Phone: Serum or plasma albumin/glob ulin mass ratioon 12-30-2021 Albumin/Globulin [Mass ratio] 0.9 {ratio} 0.9-2.4 [facility] Work Phone: Serum or plasma calcium leah urement (mass/volume)on 12-30-2021 Calcium [Mass/Vol] 9.1 mg/dL 8.5-10.1 [facility] Work Phone: Serum or plasma creatinine m easurement (mass/volume)on 12-30-2021 Creatinine [Mass/Vol] 1.16 mg/dL 0.55-1.02 [facility] Work Phone: Comment on above: The validity of the calculated GFR & GFRAA in patients over 70 years has not been determined. Clinical correlation is essential. Serum or plasma urea nitroge n measurement (mass/volume)on 12-30-2021 Urea nitrogen [Mass/Vol] 22 mg/dL 7-18 [facility] Work Phone: Serum or plasma uric acid me asurement (mass/volume)on 12-30-2021 Urate [Mass/Vol] 4.1 mg/dL 2.6-6.0 [facility] Work Phone: Comment on above: The drugs N-Acetylcy steine and Metamizole may falsely depress this assay. Thin prep Papanicolaou smear with manual screeningon 12-30-2021 Thin prep Papanicolaou smear with manual screening 22 U/L 15-37 [facility] Work Phone: Thin prep Papanicolaou smear with manual screening 7 5-15 [facility] Work Phone: Absolute lymphocyte counton 06-30-2021 Lymphocytes Auto (Unsp spec) [#/Vol] 1.74 10*3/uL 0.83-4.51 [facility] Work Phone: Basophil percentageon 2021 Basophils/100 WBC (Bld) 1.4 % 0-1 [facility] Work Phone: Bilirubin [Mass/Vol] 0.90 mg/dL 0.20-1.00 [facility] Work Phone: Comment on above: For patients on eltr ombopag therapy, use of Dimension Carpenter TBIL is not recommended. Chloride [Moles/Vol] 106 mmol/L 98-107 [facility] Work Phone: Eosinophils/100 WBC (Bld) 1.1 % 0-5 [facility] Work Phone: Glucose [Mass/Vol] 112 mg/dL 74-106 [facility] Work Phone: Comment on above: Fasting Glucose resu lt from 100 to 125 mg/dL suggests IMPAIRED HOMEOSTASIS per A.D.A. criteria. Neutrophils (Bld) [#/Vol] 3.8 10*3/uL 2.0-7.7 [facility] Work Phone: Neutrophils/100 WBC (Bld) 59.2 % 47-70 [facility] Work Phone: Potassium [Moles/Vol] 4.4 mmol/L 3.5-5.1 [facility] Work Phone: Protein [Mass/Vol] 7.3 g/dL 6.4-8.2 [facility] Work Phone: Sodium [Moles/Vol] 137 mmol/L 136-145 [facility] Work Phone: WBC (Bld) [#/Vol] 6.4 10*3/uL 4.4-11.0 [facility] Work Phone: Blood erythrocytes count (nu mber/volume)on 06-30-2021 RBC (Bld) [#/Vol] 4.95 10*6/uL 4.2-5.4 [facility] Work Phone: Blood hemoglobin measurement (mass/volume)on 06-30-2021 Hemoglobin (Bld) [Mass/Vol] 15.7 g/dL 12.0-15.0 [facility] Work Phone: Blood lymphocytes/100 leukoc yteson 06-30-2021 Lymphocytes/100 WBC (Bld) 27.3 % 19-41 [facility] Work Phone: Blood monocytes/100 leukocyt eson 06-30-2021 Monocytes/100 WBC (Bld) 10.7 % 0-10 [facility] Work Phone: Blood platelet mean volumeon 06-30-2021 Platelet mean volume (Bld) [Entitic vol] 12.7 fL 6.2-12.0 [facility] Work Phone: Determination of erythrocyte mean corpuscular volume (MCV)on 06-30-2021 MCV (RBC) [Entitic vol] 96.6 fL 81-99 [facility] Work Phone: Hematocrit Auto (Bld) [Volum e fraction]on 06-30-2021 Hematocrit (Bld) [Volume fraction] 47.8 % 37-47 [facility] Work Phone: Laboratory - Chemistry and C hemistry - challengeon 06-30-2021 ALP [Catalytic activity/Vol] 71 U/L 45-117 [facility] Work Phone: ALT [Catalytic activity/Vol] 26 U/L 13-56 [facility] Work Phone: CO2 [Moles/Vol] 25.0 mmol/L 21.0-32.0 [facility] Work Phone: Globulin (S) [Mass/Vol] 3.7 g/dL 2.2-4.2 [facility] Work Phone: Urea nitrogen/Creatinine [Mass ratio] 14.7 mg/mg 10-20 [facility] Work Phone: Laboratory - Hematology and Cell countson 06-30-2021 Erythrocyte distribution width (RBC) [Entitic vol] 46.4 fL 35.1-43.9 [facility] Work Phone: Erythrocyte distribution width (RBC) [Ratio] 13.1 % 11.6-14.6 [facility] Work Phone: Immature granulocytes/100 WBC (Bld) 0.300 % 0.0-0.9 [facility] Work Phone: Comment on above: IG% - Immature Granu locytes (promyelocytes, myelocytes and metamyelocytes) > 1% indicates that a LEFT SHIFT is Present. MCH (RBC) [Entitic mass] 31.7 pg 27.0-32.0 [facility] Work Phone: Nucleated RBC/100 WBC (Bld) [Ratio] 0 % 0-5 [facility] Work Phone: MCHC Auto (RBC) [Mass/Vol]on 06-30-2021 MCHC (RBC) [Mass/Vol] 32.8 g/dL 32-36 [facility] Work Phone: No Panel Informationon 06-30 Estimated GFR (MDRD) Amer 51 mL/min >60 [facility] Work Phone: Comment on above: GFR Calc Estimated GFR (MDRD) Non-Af Amer 42 mL/min >60 [facility] Work Phone: Comment on above: Non- GFR Calc Thyroid Stimulating Hormone (TSH) 2.54 uIU/mL 0.358-3.74 [facility] Work Phone: Vitamin D 25-Hydroxy 24.2 ng/mL [facility] Work Phone: Comment on above: Vitamin D 25(OH) Sta tus Range Deficiency <20 ng/mL (50nmol/L) Insufficiency 20 - 30 ng/mL (50 - 75 nmol/L) Sufficiency 30 - 100 ng/mL (75 - 250 nmol/L) Toxicity >100 ng/mL (>250 nmol/L) Platelets bldon 06-30-2021 Platelets (Bld) [#/Vol] 242 10*3/uL 150-450 [facility] Work Phone: Serum or plasma albumin leah urement (mass/volume)on 06-30-2021 Albumin [Mass/Vol] 3.6 g/dL 3.2-5.0 [facility] Work Phone: Serum or plasma albumin/glob ulin mass ratioon 06-30-2021 Albumin/Globulin [Mass ratio] 1.0 {ratio} 0.9-2.4 [facility] Work Phone: Serum or plasma calcium leah urement (mass/volume)on 06-30-2021 Calcium [Mass/Vol] 9.2 mg/dL 8.5-10.1 [facility] Work Phone: Serum or plasma creatinine m easurement (mass/volume)on 06-30-2021 Creatinine [Mass/Vol] 1.29 mg/dL 0.55-1.02 [facility] Work Phone: Comment on above: The validity of the calculated GFR & GFRAA in patients over 70 years has not been determined. Clinical correlation is essential. Serum or plasma urea nitroge n measurement (mass/volume)on 06-30-2021 Urea nitrogen [Mass/Vol] 19 mg/dL 7-18 [facility] Work Phone: Serum or plasma uric acid me asurement (mass/volume)on 06-30-2021 Urate [Mass/Vol] 4.3 mg/dL 2.6-6.0 [facility] Work Phone: Comment on above: The drugs N-Acetylcy steine and Metamizole may falsely depress this assay. Thin prep Papanicolaou smear with manual screeningon 06-30-2021 Thin prep Papanicolaou smear with manual screening 23 U/L 15-37 [facility] Work Phone: Thin prep Papanicolaou smear with manual screening 6 5-15 [facility] Work Phone: Office Visiton 01-04-2017 Dietary management education, guidance, and counseling (procedure) yes Invalid Interpretation Code [facility] Work Phone: Documentation of current medications (procedure) Done Invalid Interpretation Code [facility] Work Phone: Tobacco use CPHS Never smoker Invalid Interpretation Code [facility] Work Phone: Office Visit: [facility] 12-30-19 17 Documentation of current medications (procedure) Done Invalid Interpretation Code [facility] Work Phone: Fall risk assessment No Invalid Interpretation Code [facility] Work Phone: Protein mass conc Done Invalid Interpretation Code [facility] Work Phone: Office Visiton 09-28-2016 Dietary management education, guidance, and counseling (procedure) yes Invalid Interpretation Code [facility] Work Phone: Documentation of current medications (procedure) Done Invalid Interpretation Code [facility] Work Phone: Tobacco smoking status NHIS Never smoker Invalid Interpretation Code [facility] Work Phone: Tobacco use CPHS Never smoker Invalid Interpretation Code [facility] Work Phone: Office Visiton 06-29-2016 Dietary management education, guidance, and counseling (procedure) yes Invalid Interpretation Code [facility] Work Phone: Documentation of current medications (procedure) Done Invalid Interpretation Code [facility] Work Phone: Tobacco use CPHS Never smoker Invalid Interpretation Code [facility] Work Phone: Clinical Lists Update: 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 disc jockey 11-18-2015 Left ventricular Ejection fraction 65 % Invalid Interpretation Code [facility] Work Phone: Lab Report: Lipid Profileon 11-12-2015 Cholesterol 194 mg/dL Invalid Interpretation Code 200 [facility] Work Phone: HDL Cholesterol 45 mg/dL Invalid Interpretation Code [facility] Work Phone: LDL Cholesterol 123 mg/dL Invalid Interpretation Code 0-130 [facility] Work Phone: Triglyceride 132 mg/dL Invalid Interpretation Code [facility] Work Phone: very low density lipoproteins 26 mg/dL Invalid Interpretation Code 5-40 [facility] Work Phone: Lab Report: Liver Profileon 11-12-2015 Alanine aminotransferase (ALT) 19 U/L Invalid Interpretation Code 12-78 [facility] Work Phone: Albumin 3.6 g/dL Invalid Interpretation Code 3.4-5.0 [facility] Work Phone: Alkaline phosphatase (ALP) 72 U/L Invalid Interpretation Code 50-136 [facility] Work Phone: ALP enzyme act/vol (Bld) 72 U/L Invalid Interpretation Code 50-136 [facility] Work Phone: Aspartate aminotransferase (AST) 17 U/L Invalid Interpretation Code 15-37 [facility] Work Phone: Bilirubin (direct) 0.17 mg/dL Invalid Interpretation Code 0.00-0.30 [facility] Work Phone: Bilirubin (total) 0.90 mg/dL Invalid Interpretation Code 0.20-1.00 [facility] Work Phone: Globulin 3.7 g/dL High 2.3-3.5 [facility] Work Phone: Protein 7.3 g/dL Invalid Interpretation Code 6.4-8.2 [facility] Work Phone: Vital Signs Date Time Vital Sign Value Performing Clinician Angle [facility]uceda 01-04-2024 11:57-0400 Body height 157.5 cm Mónica David PIPEFITTER - MUSIC DIRECTOR Work Phone: [facility] 01-04-2024 11:57-0400 Body mass index (BMI) [Ratio] 43.09 kg/m2 Mónica David PIPEFITTER - MUSIC DIRECTOR Work Phone: [facility] 01-04-2024 11:57-0400 Body weight 106.87 kg Mónica David PIPEFITTER - MUSIC DIRECTOR Work Phone: [facility] 01-04-2024 11:57-0400 Diastolic blood pressure 64 mm[Hg] Mónica David PIPEFITTER - MUSIC DIRECTOR Work Phone: [facility] 01-04-2024 11:57-0400 Heart rate 68 /min Mónica David PIPEFITTER - MUSIC DIRECTOR Work Phone: [facility] 01-04-2024 11:57-0400 SaO2% (BldA) [Mass fraction] 97 % Mónica David PIPEFITTER - MUSIC DIRECTOR Work Phone: [facility] 01-04-2024 11:57-0400 Systolic blood pressure 112 mm[Hg] Mónica David PIPEFITTER - MUSIC DIRECTOR Work Phone: [facility] 12-26-2023 11:34-0400 Body temperature 96.49 [degF] Harjeet Huffman MD Work Phone: [facility] 12-26-2023 11:34-0400 Diastolic blood pressure 82 mm[Hg] Harjeet Huffman MD Work Phone: [facility] 12-26-2023 11:34-0400 Heart rate 87 /min Harjeet Huffman MD Work Phone: [facility] 12-26-2023 11:34-0400 Respiratory rate 22 /min Harjeet Huffman MD Work Phone: [facility] 12-26-2023 11:34-0400 SaO2% (BldA) [Mass fraction] 98 % Harjeet Huffman MD Work Phone: [facility] 12-26-2023 11:34-0400 Systolic blood pressure 148 mm[Hg] Harjeet Huffman MD Work Phone: [facility] 12-26-2023 09:27-0400 Body height 157.5 cm Harjeet Huffman MD Work Phone: [facility] 12-26-2023 09:27-0400 Body mass index (BMI) [Ratio] 45.91 kg/m2 Harjeet Huffman MD Work Phone: [facility] 12-26-2023 09:27-0400 Body weight 113.85 kg Harjeet Huffman MD Work Phone: [facility] 12-12-2023 13:57-0400 Diastolic blood pressure 76 mm[Hg] [facility] 12-12-2023 13:57-0400 Heart rate 73 /min [facility] [employer] 12-12-2023 13:57-0400 Respiratory rate 18 /min [facility] 12-12-2023 13:57-0400 Systolic blood pressure 128 mm[Hg] [facility] 12-12-2023 12:30-0400 Body temperature 96.8 [degF] Arlene Velez PIPEFITTER - MUSIC DIRECTOR Work Phone: [facility] 12-12-2023 12:30-0400 Diastolic blood pressure 64 mm[Hg] Arlene Velez PIPEFITTER - MUSIC DIRECTOR Work Phone: [facility] [employer] 12-12-2023 12:30-0400 Heart rate 50 /min Arlene Velez PIPEFITTER - MUSIC DIRECTOR Work Phone: [facility] 12-12-2023 12:30-0400 Respiratory rate 18 /min Arlene Velez PIPEFITTER - MUSIC DIRECTOR Work Phone: [facility] [employer] 12-12-2023 12:30-0400 Systolic blood pressure 113 mm[Hg] Arlene Velez PIPEFITTER - MUSIC DIRECTOR Work Phone: [facility] [employer] 12-12-2023 07:34-0400 Body temperature 97 [degF] Ach Pop [facility] [employer] 11-21-2023 14:17-0400 Body height 157.5 cm Juna Connorung DO Work Phone: [facility] 11-21-2023 14:17-0400 Body mass index (BMI) [Ratio] 43.15 kg/m2 Juan Connorung DO Work Phone: [facility] [employer] 11-21-2023 14:17-0400 Body weight 107 kg Juan Connorung DO Work Phone: [facility] [employer] 11-21-2023 14:17-0400 Diastolic blood pressure 82 mm[Hg] Juan Connorung DO Work Phone: [facility] [employer] 11-21-2023 14:17-0400 Heart rate 58 /min Juan Reed DO Work Phone: [facility] [employer] 11-21-2023 14:17-0400 SaO2% (BldA) [Mass fraction] 98 % Juan Reed DO Work Phone: [facility] [employer] 11-21-2023 14:17-0400 Systolic blood pressure 136 mm[Hg] Juan Reed DO Work Phone: [facility] [employer] 11-21-2023 14:01-0400 Body height 157.5 cm Harjeet Huffman MD Work Phone: [facility] [employer] 11-21-2023 14:01-0400 Body mass index (BMI) [Ratio] 43.31 kg/m2 Harjeet Huffman MD Work Phone: [facility] [employer] 11-21-2023 14:01-0400 Body weight 107.41 kg Harjeet Huffman MD Work Phone: [employer] 11-21-2023 14:01-0400 Diastolic blood pressure 82 mm[Hg] Harjeet Huffman MD Work Phone: [facility] [employer] 11-21-2023 14:01-0400 Heart rate 58 /min Harjeet Huffman MD Work Phone: [facility] [employer] 11-21-2023 14:01-0400 SaO2% (BldA) [Mass fraction] 98 % Harjeet Huffman MD Work Phone: [facility] [employer] 11-21-2023 14:01-0400 Systolic blood pressure 136 mm[Hg] Harjeet Huffman MD Work Phone: [facility] [employer] 12-29-2016 10:24-0400 BMI (Body Mass Index) 38.01 [...] 14:01-0500 BMI (Body Mass Index) 37.83 kg/m2 [facility] Work Phone: 05-26-2016 14:01-0500 BP Diastolic 76 mm[Hg] [facility] Work Phone: 05-26-2016 14:01-0500 BP Systolic 144 mm[Hg] [facility] Work Phone: 05-26-2016 14:01-0500 Height 161.29 cm [facility] Work Phone: 05-26-2016 14:01-0500 Pulse (Heart Rate) 76 /min [facility] Work Phone: 05-26-2016 14:01-0500 Respiratory Rate 18 /min [facility] Work Phone: 05-26-2016 14:01-0500 Weight 98.43 kg [facility] Work Phone: 11-10-2015 14:49-0400 BSA (Body Surface Area) 2.03 m2 [facility] Work Phone: Encounters Encounter Date Encounter Type Care Provider Facility Start: 01-29-2025 ambulatory Efewongbe Oleghe OLS Fa cility:[facility] Start: 01-14-2025 ambulatory Efewongbe Oleghe OLS Fa cility:[facility] Start: 01-13-2025 End: 01-13-2025 ambulatory Sara Man NP Facility:[facility] Start: 01-06-2025 ambulatory Efewongbe Oleghe OLS Fa cility:[facility] Start: 12-30-2024 ambulatory Efewongbe Oleghe OLS Fa cility:[facility] Start: 12-17-2024 [facility] Start: 12-17-2024 End: 12-17-2024 ambulatory Efewongbe Oleghe OLS Facility:[facility] Start: 12-04-2024 ambulatory Efewongbe Oleghe OLS Fa cility:[facility] Start: 12-04-2024 [facility] [place] Start: 11-26-2024 End: 11-27-2024 ambulatory Efewongbe Kandie Facility:[facility] Start: 11-19-2024 ambulatory Efewkayleigh Kandie OLS Fa cility:[facility] Start: 11-19-2024 Registered Referred Joe Sanchez MD [facility] Start: 10-23-2024 End: 10-23-[address] Scott Hull MD Work Phone: [facility] Start: 10-23-2024 End: 10-23-2024 Patient encounter procedure Sara MONTEMAYOR -[facility] Work Phone: Start: 10-22-2024 Registered Referred Joe Sanchez MD [facility] Start: 10-22-2024 End: 10-22-2024 ambulatory Efewkayleigh Chaue OLS Facility:[facility] Start: 10-09-2024 ambulatory Efewkayleigh Chaue OLS Fa cility:[facility] Start: 10-09-2024 [facility] [place] Start: 10-07-2024 End: 10-07-[address] Scott Hull MD Work Phone: [facility] Start: 10-07-2024 End: 10-07-2024 [facility] [place] Start: 10-07-2024 [facility] [place] Start: 10-07-2024 End: 10-07-2024 ambulatory Efclaudiokayleigh Morrisawaise OLS Facility:[facility] Start: 10-01-2024 End: 10-01-[address] Scott Hull MD Work Phone: [facility] Start: 10-01-2024 End: 10-01-[address] Joe Sanchez MD [facility] Work Phone: Start: 09-24-2024 ambulatory Scott Hull Facility:[facility] Start: 09-24-2024 [facility] [place] Start: 09-02-2024 End: 09-02-[address] Scott Hull MD Work Phone: [facility] Start: 09-02-2024 End: 09-02-2024 Patient encounter procedure Sara Juan C [facility] Work Phone: Start: 08-27-2024 ambulatory Scott Hull Facility:[facility] Start: 08-27-2024 Registered Referred Joe Sanchez MD [facility] Start: 08-20-2024 End: 08-20-[address] Scott Hull MD Work Phone: [facility] Start: 08-20-2024 End: 08-20-2024 Patient encounter procedure Sara Irizarry [facility] Work Phone: Start: 08-14-2024 ambulatory Scott Hull Facility:[facility] Start: 08-14-2024 Registered Referred Joe Sanchez MD [facility] Start: 07-30-2024 End: 07-30-[address] Scott Hull MD Work Phone: [facility] Work Phone: Start: 07-30-2024 End: 07-30-2024 [facility] [place] Start: 07-30-2024 End: 07-30-2024 ambulatory Joe PORTILLO Facility:[facility] Start: 07-23-2024 End: 07-23-[address] Scott Hull MD Work Phone: [facility] Start: 07-23-2024 End: 07-23-[address] Joe Sanchez MD [facility] Work Phone: Start: 07-15-2024 End: 07-15-[address] Scott Hull MD Work Phone: [facility] Work Phone: Start: 07-15-2024 End: 07-15-2024 [facility] [place] Start: 07-15-2024 [facility] [place] Start: 07-15-2024 End: 07-15-2024 ambulatory Joe Sanchez OLS Facility:[facility] Start: 07-02-2024 End: 07-02-[address] Scott Hull MD Work Phone: [facility] Work Phone: Start: 07-02-2024 End: 07-02-2024 [facility] [place] Start: 07-02-2024 End: 07-02-2024 ambulatory Joe PORTILLO Facility:[facility] Start: 06-18-2024 End: 06-18-2024 [facility] [place] Start: 06-18-2024 [facility] [place] Start: 06-18-2024 End: 06-18-2024 ambulatory Scott Hull Facility:[facility] Start: 06-04-2024 End: 06-04-[address] Scott Hull MD Work Phone: [facility] Work Phone: Start: 06-04-2024 End: 06-04-2024 [facility] [place] Start: 06-04-2024 End: 06-04-2024 ambulatory Scott Hull Facility:[facility] Start: 05-28-2024 End: 05-28-2024 ambulatory Joe Sanchez Facility:[facility] Start: 05-28-2024 End: 05-28-[address] Joe Sanchez MD [facility] Work Phone: Start: 05-16-2024 End: 05-16-2024 ambulatory Scott Chi Kurtis Facility:[facility] Start: 05-16-2024 End: 05-16-2024 Patient encounter procedure Eriberto VILLALOBOS -[facility] Work Phone: Start: 05-07-2024 ambulatory Scott Chi Kurtis Facility:[facility] Start: 05-07-2024 [facility] [place] Start: 04-22-2024 ambulatory Scott Chi Kurtis Facility:[facility] Start: 04-22-2024 Registered [facility] [place] Start: 04-18-2024 ambulatory Mónica VILLALOBOS Facility:[facility] Start: 04-09-2024 End: 04-09-2024 [facility] [place] Start: 04-09-2024 End: 04-09-2024 ambulatory Joe PORTILLO Facility:[facility] Start: 04-02-2024 End: 04-02-2024 ambulatory Scott Chi Kurtis Facility:[facility] Start: 04-02-2024 End: 04-02-[address] Joe Sanchez MD -[facility] Work Phone: Start: 03-15-2024 End: 03-15-2024 ambulatory Sara Irizarry NP Facility:[facility] Start: 03-15-2024 End: 03-15-2024 Patient encounter procedure Sara Irizarry MEDICATION COORDINATOR- -[facility] Work Phone: Start: 03-15-2024 ambulatory Joe Sanchez OLS Fa cility:[facility] Start: 03-15-2024 [facility] [place] Start: 03-08-2024 ambulatory Joe Sanchez OLS Fa cility:[facility] Start: 03-08-2024 [facility] [place] Start: 03-01-2024 End: 03-01-2024 [facility]ed [facility] [place] Start: 03-01-2024 End: 03-01-2024 ambulatory Efewongbe Oleghe OLS Facility:[facility] Start: 02-27-2024 End: 02-27-2024 [facility] Start: 02-27-2024 End: 02-27-2024 Patient encounter procedure Sara MONTEMAYOR -[facility] Work Phone: Start: 02-23-2024 End: 02-23-2024 ambulatory Efewongbe Oleghe OLS Facility:[facility] Start: 02-16-2024 ambulatory Efewongbe Oleghe OLS Fa cility:[facility] Start: 02-09-2024 ambulatory Efewongbe Oleghe OLS Fa cility:[facility] Start: 02-07-2024 End: 02-07-2024 ambulatory [facility] Kurtis Facility:[facility] Start: 02-02-2024 ambulatory Efewongbe Oleghe OLS Fa cility:[facility] Start: 01-04-2024 End: 02-22-2024 Telephone encounter Mónica Maldonado CNP Work Phone: [facility] Comment on above: Orders Start: 01-04-2024 End: 01-04-2024 Office outpatient visit 25 minutes Mónica David APRN - MUSIC DIRECTOR Work Phone: [facility] [place] [employer] Comment on above: Chronic atrial fibri llation (HCC) (Primary Dx); Severe aortic stenosis; Stage 3a chronic kidney disease (HCC); Left heart failure (HCC) Start: 01-04-2024 End: 01-04-2024 ambulatory MÓNICA DAVID [facility] Start: 12-25-2023 End: 12-26-2023 Evaluation and management of inpatient Harjeet Huffman MD Work Phone: [facility] Cardiac Thoracic Vascular Intensive Care Unit CTV ICU T1 Comment on above: Severe aortic stenos is (Primary Dx); Nonrheumatic aortic valve stenosis Start: 12-22-2023 End: 12-22-2023 ambulatory Arlene Velez PIPEFITTER - MUSIC DIRECTOR Work Phone: [facility] Comment on above: Severe aortic stenos is (Primary Dx) Start: 12-12-2023 End: 12-12-2023 Office outpatient visit 25 minutes Mónica David PIPEFITTER - [facility] Work Phone: [facility] Erica Monzon Comment on above: Chronic atrial fibri llation (HCC) (Primary Dx); Nonrheumatic aortic valve stenosis; Adverse effect of contrast media, initial encounter Start: 12-12-2023 End: 12-12-2023 Subsequent hospital visit by physician Arlene Velez APRN - MUSIC DIRECTOR Work Phone: [facility] CT Imaging Comment on above: Nonrheumatic aortic valve stenosis Start: 12-12-2023 End: 12-12-2023 ambulatory Harjeet Huffman MD Work Phone: [facility] POP Comment on above: Renal failure, unspe cified chronicity; Stenosis of prosthetic aortic valve, initial encounter Start: 11-21-2023 End: 11-21-2023 Office outpatient new 45 minutes Thaddeus Mckeon MD Work Phone: [facility] Comment on above: Nonrheumatic aortic valve stenosis (Primary Dx); Chronic atrial fibrillation (HCC); Short-term memory loss; Drug-induced bradycardia; Polypharmacy Start: 11-21-2023 End: 11-21-2023 Office outpatient new 60 minutes Juan Reed DO Work Phone: [facility] Comment on above: Stenosis of prosthet ic aortic valve, initial encounter (Primary Dx) LV dysfunction (Prim logan Dx); Stenosis of prosthetic aortic valve, initial encounter Start: 11-21-2023 End: 11-21-2023 ambulatory THADDEUS MCKEON [facility] Start: 07-13-2023 End: 07-13-2023 ambulatory [facility] Work Phone: Start: 07-13-2023 End: 07-13-2023 Patient encounter procedure [facility] Work Phone: Start: 01-05-2023 End: 01-05-2023 ambulatory [facility] Work Phone: Start: 01-05-2023 End: 01-05-2023 Patient encounter procedure [facility], Phy Office 3rd Flr Start: 06-30-2022 End: 06-30-2022 ambulatory [facility] Work Phone: Start: 06-30-2022 End: 06-30-2022 Patient encounter procedure [facility], Phy Office 3rd Flr Start: 12-30-2021 End: 12-30-2021 ambulatory [facility] Work Phone: Start: 12-30-2021 End: 12-30-2021 Patient encounter procedure [facility], Phy Office 3rd Flr Start: 06-30-2021 End: 06-30-2021 Patient encounter procedure [facility], y Office 3rd Flr Start: 09-11-2017 Patient encounter status [facility] Procedures Date Procedure Procedure Detail Performing Clinician Start: 12-04-2024 Vitamin D, 25-hydrox y measurement Dr. Scott Hull MD Work Phone: Comment on above: Vitamin D StatusDefi ciency: <20 ng/mL (50nmol/L)Insufficiency: 20-30 ng/mL (50-75 nmol/L)Sufficiency: 30-100 ng/mL (75-250 nmol/L)Toxicity: >100 ng/mL (>250 nmol/L) Start: 10-09-2024 Vitamin D, 25-hydrox y measurement Dr. Scott Hull MD Work Phone: Comment on above: Vitamin D StatusDefi ciency: <20 ng/mL (50nmol/L)Insufficiency: 20-30 ng/mL (50-75 nmol/L)Sufficiency: 30-100 ng/mL (75-250 nmol/L)Toxicity: >100 ng/mL (>250 nmol/L) Start: 08-14-2024 Vitamin D, 25-hydrox y measurement [...] w or wo fol wcon,Doppler Mónica David PIPEFITTER - MUSIC DIRECTOR Work Phone: Start: 12-26-2023 Ecg routine ecg w/le ast 12 lds trcg only w/o i&r Mónica David PIPEFITTER - MUSIC DIRECTOR Work Phone: Start: 12-26-2023 Basic metabolic pane l calcium total Mónica David PIPEFITTER - MUSIC DIRECTOR Work Phone: Start: 12-25-2023 Echo transthorc r-t 2d w/wo m-mode rec f-up/lmtd Harjeet Huffman MD Work Phone: Start: 12-25-2023 Basic metabolic pane l calcium total Mónica Radford Sandeep PIPEFITTER - MUSIC DIRECTOR Work Phone: Start: 12-25-2023 Ecg routine ecg w/le ast 12 lds trcg only w/o i&r Mónica Radford Sandeep PIPEFITTER - MUSIC DIRECTOR Work Phone: Start: 12-25-2023 OXYGEN THERAPY Mónica Radford Sandeep PIPEFITTER - MUSIC DIRECTOR Work Phone: Start: 12-25-2023 Cardiac catheterizat ion study Harjeet Huffman MD Work Phone: Start: 12-25-2023 Antibody screen HARJEET DOWNING Comment on above: Performed By: #### L [id number] #### Sales And Service Officer: AIDE RUEDA ([phone]) [facility] ([facility]) [address] [place] [address] Start: 12-25-2023 End: 12-25-2023 Blood typing serologic rh (d) Tien Cornell MD Work Phone: Start: 12-25-2023 End: 12-25-2023 TRANSCATHETER AORTIC VALVE REPLACEMENT (TAVR) - OR Tien Cornell MD Work Phone: Start: 12-12-2023 Antibody screen HARJEET DOWNING Comment on above: Performed By: #### L [id number] ####Sales And Service Officer: AIDE RUEDA ([phone])[facility] ([facility])[address] [place] [address] Start: 12-12-2023 Blood typing serologic abo Harjeet Huffman MD Work Phone: Start: 12-12-2023 Comprehensive metabo lic panel Harjeet Huffman MD Work Phone: Start: 11-25-2023 Ecg routine ecg w/le ast 12 lds w/i&r Harjeet Huffman MD Work Phone: Start: 01-05-2017 End: 01-09-2017 Nuclear stress test -Lexiscan Mónica Guiterrez PA-C Work Phone: Start: 01-04-2017 End: 01-16-2017 Arthrocentesis aspir&/inj major jt/bursa w/o us Sukh Yuen Elver Work Phone: Start: 01-03-2017 End: 01-09-2017 Nuclear [...] w/o us Sukh Raya Work Phone: Start: 04-07-2016 End: 04-14-2016 Drain/inject, [...] of aorti c valve Aortic valve replacement Móniac Gutierrez PA-C H/O: hysterectomy History of hysterectomy History of appendectomy History of appendectomy Plan of Treatment Date Care Activity Detail Author Start: 12-21-2026 DTaP/Tdap/Td Vaccines (2 - Td or Tdap) DTaP/Tdap/Td Vaccines (2 - Td or Tdap) [facility] Start: 12-25-2024 Creatinine measurement Creatinine Level [facility] Start: 12-25-2024 Echocardiography Echocardiogram [facility] Start: 12-25-2024 Potassium measurement Potassium Level [facility] Start: 03-20-2024 Medicare Advantage Annual Wellness Visit Medicare Advantage Annual Wellness Visit [facility] Start: 01-04-2024 End: 01-04-2024 Patient encounter procedure 01/04/2024 12:00 PM EDT Office Visit [facility] [address] [place] [id number] Mónica David, PIPEFITTER - MUSIC DIRECTOR [address] [place] [address] [facility] Start: 12-25-2023 End: 12-25-2023 Admission to same day surgery center 12/25/2023 9:15 AM EDT - 12/25/2023 11:00 AM EDT Surgery [facility] OR [address] [facility] [place] [address] Harjeet Huffman MD [address] [place] [address] TRANSCATHETER AORTIC VALVE REPLACEMENT, TRANSTHORACIC ECHOCARDIOGRAM [facility] Comment on above: TRANSCATHETER AORTIC VALVE REPLACEMENT, TRANSTHORACIC ECHOCARDIOGRAM Start: 12-25-2023 End: 12-25-2023 Anesthesia consultation 12/25/2023 9:15 AM EDT Anesthesia Event [facility] OR [address] [facility] [place] [address] Carolina Waldron, PIPEFITTER - MUSIC DIRECTOR [facility] [address] [place] [address] [facility] Start: 12-25-2023 Subsequent hospital visit by physician 12/25/2023 9:15 AM EDT Hospital Encounter [facility] [address] [place] [address] Harjeet Huffman MD [address] [facility] [address] [place] [address] Nonrheumatic aortic valve stenosis [facility] Comment on above: Nonrheumatic aortic valve stenosis Start: 12-25-2023 End: 12-25-2023 TRANSCATHETER AORTIC VALVE REPLACEMENT (TAVR) - OR TRANSCATHETER AORTIC VALVE REPLACEMENT (TAVR) - OR Nonrheumatic aortic valve stenosis 12/25/2023 9:15 AM EDT [facility] Start: 11-19-2023 COVID-19 Vaccine ( season) COVID-19 Vaccine ( season) [facility] Start: 11-19-2023 COVID-19 Vaccine ( season) COVID-19 Vaccine ( season) [facility] Start: 11-19-2023 Influenza vaccination Influenza Vaccine (#1) [facility] [employer] Start: 03-20-2023 Medicare Advantage Annual Wellness Visit Medicare Advantage Annual Wellness Visit [facility] Start: 11-09-2020 Lipid panel Lipid Panel [facility] [employer] Start: 07-10-2017 End: 07-10-2017 Appointment Appointment [facility] Work Phone: Start: 01-05-2017 End: 01-09-2017 Nuclear stress test -Lexiscan Nuclear stress test -Lexiscan [facility] Work Phone: Start: 01-04-2017 End: 01-04-2017 Appointment Appointment [facility] Work Phone: Start: 01-03-2017 End: 01-05-2017 Nuclear stress test -exercise Nuclear stress test -exercise [facility] Work Phone: Start: 12-29-2016 End: 12-29-2016 ERCI ERYES [email or web address] Work Phone: Start: 12-29-2016 End: 12-29-2016 Echocardiography Echocardiogram (complete) [facility] Work Phone: Start: 12-29-2016 End: 12-29-2016 Follow Up Appt 6 months Follow Up Appt 6 months [facility] Work Phone: Start: 12-29-2016 End: 12-29-2016 Nuclear stress test -exercise Nuclear stress test -exercise [facility] Work Phone: Start: 12-29-2016 End: 12-29-2016 Appointment Appointment [facility] Work Phone: Start: 12-15-2016 End: 12-15-2016 Appointment Appointment [facility] Work Phone: Start: 11-11-2016 End: 11-18-2015 *Hepatic Function Panel *Hepatic Function Panel [facility] Work Phone: Start: 11-11-2016 End: 11-18-2015 Lipid panel [AGGREGATE] *Lipid Profile CC PCP [facility] Work Phone: Start: 11-11-2016 End: 11-18-2015 *Hepatic Function Panel *Hepatic Function Panel [facility] Work Phone: Start: 11-11-2016 End: 11-18-2015 Lipid panel [AGGREGATE] *Lipid Profile CC PCP [facility] Work Phone: Start: 09-28-2016 End: 09-28-2016 Appointment Appointment [facility] Work Phone: Start: 05-26-2016 End: 05-26-2016 ERIC REYES [facility] Work Phone: Start: 05-26-2016 End: 05-26-2016 Follow Up Appt 6 months Follow Up Appt 6 months [facility] Work Phone: Start: 05-26-2016 End: 05-26-2016 ERIC REYES [facility] Work Phone: Start: 05-26-2016 End: 05-26-2016 Follow Up Appt 6 months Follow Up Appt 6 months [facility] Work Phone: Start: 11-10-2015 End: 11-12-2015 *Hepatic Function Panel *Hepatic Function Panel [facility] Work Phone: Start: 11-10-2015 End: 05-20-2016 ERIC REYES [facility] Work Phone: Start: 11-10-2015 End: 11-10-2015 Echocardiography Echocardiogram (complete) [facility] Work Phone: Start: 11-10-2015 End: 11-10-2015 Follow Up Appt 6 months Follow Up Appt 6 months [facility] Work Phone: Start: 11-10-2015 End: 11-12-2015 Lipid panel [AGGREGATE] *Lipid Profile CC PCP [facility] Work Phone: Start: 11-10-2015 End: 11-12-2015 *Hepatic Function Panel *Hepatic Function Panel [facility] Work Phone: Start: 11-10-2015 End: 05-20-2016 ERIC REYES [facility] Work Phone: Start: 11-10-2015 End: 11-10-2015 Echocardiography Echocardiogram (complete) [facility] Work Phone: Start: 11-10-2015 End: 11-10-2015 Follow Up Appt 6 months Follow Up Appt 6 months [facility] Work Phone: Start: 11-10-2015 End: 11-12-2015 Lipid panel [AGGREGATE] *Lipid Profile CC PCP [facility] Work Phone: Start: 1952 Depression Screening Depression Screening [facility] Start: 1940 Lipid panel Lipid Panel [facility] Start: 1940 Screening for osteoporosis Bone Density Scan [facility] End: 12-12-2023 CT Chest WO and CT angiogram Coronary arteries W contrast IV [facility] Work Phone: Comment on above: Once for 1 Occurrences starting 12/12/19 until 12/12/2023 ECG 12 lead - CLINIC PERFORMED ECG 12 lead - CLINIC PERFORMED CV ECG Routine Severe aortic stenosis 01/04/2024 11:54 AM EDT [facility] Work Phone: Patient Education [facility] Work Phone: Immunizations Immunization Date Immunization Notes Care Provider Fa [facility] 01-05-2023 influenza virus vaccine, unspecified formulation Thaddeus Mckeon MD Work Phone: [facility] 12-27-2017 influenza, injectabl e, quadrivalent, preservative free [facility] 12-27-2017 influenza, seasonal, injectable [facility] Payers Date Payer Category Payer Medicare UNKN 2024 Unknown 2024 Unknown [id number] 2024 Medicaid [id number] 2024 Self-pay [id number] 2023 Medicare [employer] RE [employer]URE [id number] 2023-Present [address] [place] [address] Medicare HMO [id number] 2023 Medicare HMO [employer] [id number] 2016 Medicare [id number] Unknown [id number] Unknown [id number] Unknown [id number] Unknown [id number] Unknown [id number] 2.16.840.1.924694.3.579.2.462 Unknown [id number] 2.16.840.1.261096.3.579.2.462 Unknown [id number] 2.16.840.1.003784.3.579.2.462 Unknown [id number] 2.16.840.1.903825.3.579.2.462 Unknown [id number] 2.16.840.1.647833.3.579.2.462 Unknown [id number] 2.16.840.1.116493.3.579.2.462 Unknown [id number] 2.16.840.1.659296.3.579.2.462 Unknown [id number] 2.16.840.1.358815.3.579.2.462 Unknown [id number] 2.16.840.1.198323.3.579.2.462 Unknown [id number] 2.16.840.1.415077.3.579.2.462 Unknown [id number] 2.16.840.1.309372.3.579.2.462 Unknown [id number] 2.16.840.1.327289.3.579.2.462 Unknown [id number] 2.16.840.1.956881.3.579.2.462 Unknown [id number] 2.16.840.1.880569.3.579.2.462 Unknown [id number] 2.16.840.1.593901.3.579.2.462 Unknown [id number] 2.16.840.1.305255.3.579.2.462 Unknown [id number] 2.16.840.1.895366.3.579.2.462 Unknown [id number] 2.16.840.1.636792.3.579.2.462 Unknown [id number] 2.16.840.1.880091.3.579.2.462 Unknown [id number] 2.16.840.1.159175.3.579.2.462 Unknown [id number] 2.840.1.153337.3.579.2.462 Unknown [id number] 2.840.1.308335.3.579.2.462 Unknown [id number] 2.840.1.148824.3.579.2.462 Unknown [id number] 2.840.1.421908.3.579.2.462 Unknown [id number] 2.840.1.022091.3.579.2.462 Unknown [id number] 2.16840.1.511870.3.579.2.462 Unknown [id number] 2.16.840.1.612358.3.579.2.462 Unknown [id number] 2.16840.1.679603.3.579.2.462 Unknown [id number] 2.16840.1.487252.3.579.2.462 Unknown [id number] 2.16840.1.547413.3.579.2.462 Unknown [id number] 2.16.840.1.981561.3.579.2.462 Unknown [id number] 2.16840.1.616112.3.579.2.462 Unknown [id number] 2.16.840.1.482063.3.579.2.462 Unknown [id number] 2.16.840.1.602374.3.579.2.462 Unknown [id number] 2.16.840.1.419577.3.579.2.462 Social History Date Type Detail Facility Start: 03-04-2021 Tobacco smoking stat [facility] Unknown if ever smoked [facility] Start: 12-28-2017 Non-smoker [facility] Start: 1940 Sex Assigned At Female [facility] Start: 2023 End: 01-10-2024 Tobacco smoking status MSIS Never smoked tobacco [facility] Start: 2023 Tobacco use and exposure Smokeless tobacco non-user [facility] Start: 11-21-2023 End: 01-04-2024 Alcoholic beverage intake Lifetime non-drinker (finding) [facility] Start: 11-21-2023 End: 01-04-2024 History of Social function [facility] Start: 11-21-2023 End: 01-04-2024 Tobacco use panel [facility] Start: 1940 Sex assigned at Not on file [facility] Start: 10-18-2021 End: 06-25-2024 Sex Female (finding) [facility] Medical Equipment Procedure Code Equipment Code Equipment [...] Valve Aor Soumya 3 Ultra 23mm - [id number] - [id number] Start: 12-25-2023 Comment on above: Description: [id number] Device Perclose Prostyle - [id number] Start: 12-25-2023 Device Perclose Prostyle - [id number] Start: 12-25-2023 DOUGH,CEMENT 6191-1-010 FDA Start: [...] Note Records received and scanned under Media [facility] 04-03-2024 Miscellaneous Notes Records received and scanned under Media I called [facility] and she requested me to fax med recs release to [phone] I faxed this morning. Confirmed 04/02 at 5:45p I spoke w/ Juana in Dr. Garces's office, asking for echo order to be faxed. I placed Teofilo brennan DNP to sign, order needs faxed to Juana's attention @ [phone]. Time frame dates given to Juana for completion of OV/EKG/echo. KCCQ mailed to pt. ----- Message from JEREMIE Saldaña CNP sent at 01/04/2024 1:51 PM EDT ----- Please call [facility] office and advise regarding registry requirements of one month and one yr appts and echo. Will likely need phone call for KCCQ. documented in this encounter [facility] 04-01-2024 Telephone encounter Note I called Osmany and she requested me to fax med recs release to [phone] I faxed this morning. Confirmed 04/02 at 5:45p [facility] 04-01-2024 Miscellaneous Notes I called Osmany and she requested me to fax med recs release to [phone] I faxed this morning. I spoke w/ Juana in Dr. Garces's office, asking for echo order to be faxed. I placed anu, Teofilo David DNP to sign, order needs faxed to Juana's attention @ [phone]. Time frame dates given to Juana for completion of OV/EKG/echo. KCCQ mailed to pt. ----- Message from JEREMIE Saldaña CNP sent at 01/04/2024 1:51 PM EDT ----- Please call [facility] office and advise regarding registry requirements of one month and one yr appts and echo. Will likely need phone call for KCCQ. documented in this encounter [facility] 04-01-2024 Miscellaneous Notes I called Osmany and she requested me to fax med recs release to [phone] I faxed this morning. Confirmed 04/02 at 5:45p I spoke w/ Juana in Dr. Garces's office, asking for echo order to be faxed. I placed Teofilo brennan DNP to sign, order needs faxed to Juana's attention @ [phone]. Time frame dates given to Juana for completion of OV/EKG/echo. KCCQ mailed to pt. ----- Message from Mónica David, JEREMIE - MUSIC DIRECTOR sent at 01/04/2024 1:51 PM EDT ----- Please call [facility] office and advise regarding registry requirements of one month and one yr appts and echo. Will likely need phone call for KCCQ. documented in this encounter [facility] 01-04-2024 Telephone encounter Note I spoke w/ Juana in Dr. Garces's office, asking for echo order to be faxed. I placed Teofilo brennan DNP to sign, order needs faxed to Juana's attention @ [phone]. Time frame dates given to Juana for completion of OV/EKG/echo. KCCQ mailed to pt. [facility] 01-04-2024 Telephone encounter Note ----- Message from JEREMIE Saldaña CNP sent at 01/04/2024 1:51 PM EDT ----- Please call [place] office and advise regarding registry requirements of one month and one yr appts and echo. Will likely need phone call for KCCQ. [facility] 01-04-2024 History of Present illness Narrative Images from the original note were not included. [facility] [address] [facility] [address] Dept: [phone] Dept Visit type: Established : 1940 Reason for Visit: Cardiac Valve Problem (One week post TAVR) Assessment and Plan 1. Chronic atrial fibrillation (HCC). HR stable. Continue Apixaban 2. Severe aortic stenosis. S/p tAVR. Continue Eliquis. Will contact [facility] regarding follow up and registry requirements. SBE prophylaxis. Plan echo in one month 3. Stage 3a chronic kidney disease (HCC). Renal function remains stable post procedure. Advised that kidney function should be followed half-way. GFR 27--> 46 4. Left heart failure (HCC). Improved after TAVR, EF 30%--> 50 %, continue furosemide, Aldactone, Farxiga, metoprolol (allerg to landon/ARB) Plan follow up in [place] Subjective Ms Call is an 83 yr old female with a PMH of permanent AF, HFrEF, HTN, HPL, CKD stage 3b, obesity, GERD, and severe with EF 30%, mean and peak gradients 49/71 mm Hg. She underwent cardiac cath at [place] which showed non obstructive CAD. She underwent [...] wrist complaints. She wishes to follow in [place] as travel is difficult for her Allergies [...] Hypokalemia LVH (left ventricular hypertrophy) Morbid obesity ([facility]) Osteoarthritis Vitamin D deficiency Social History Tobacco Use Smoking status: Never Smokeless tobacco: Never Substance Use Topics Alcohol use: Never Past Surgical History: Procedure Laterality Date APPENDECTOMY CARDIAC CATHETERIZATION N/A 12/25/2023 Performed by Harjeet Huffman MD at [facility] OR CATARACT EXTRACTION HYSTERECTOMY No family [...] JEREMIE Ruiz CNP documented in this encounter [facility] 12-26-2023 Nurse Note Discharge instructions given to patient and daughter. Patient verbalizes understanding of medication changes and follow up appointments, and activity restrictions. Discharged to home with daughter. [facility] 12-26-2023 Nurse Note Discharge instructions given to patient and daughter. Patient verbalizes understanding of medication changes and follow up appointments, and activity restrictions. Discharged to home with daughter. documented in this encounter [facility] 12-26-2023 Note Attestation signed by Harjeet Huffman [...] discharge. Referral has been made to the [facility]. Last Labs: Lab Results Component Value Date WBC 11.6 (H) 12/26/2023 HGB 14.0 12/26/2023 HCT 43.0 12/26/2023 MCV 97.9 12/26/2023 PLT 154 10/ (more content not included)... [facility] 12-26-2023 Consult note Associated Order (s): IP CONSULT TO CARDIAC REHAB Received referral and reviewed chart. Phase II Cardiopulmonary Rehab Referral discussed with Brianne Call. Patient prefers cardiopulmonary rehab at [facility]. Given information on program at preferred location. [facility] 12-26-2023 Note Received referral an d reviewed chart. Phase II Cardiopulmonary Rehab Referral discussed with Brianne Call. Patient prefers cardiopulmonary rehab at [facility]. Given information on program at preferred location. [facility] 12-26-2023 Consult note Associated Order (s): IP CONSULT TO CARDIAC REHAB Received referral and reviewed chart. Phase II Cardiopulmonary Rehab Referral discussed with Brianne Call. [facility] Given information on program at preferred location. documented in this encounter [facility] 12-26-2023 Note Atrial fibrillation Poor R wave progression, CONSIDER ANTERIOR INFARCT ST and T abnormality Electronically Signed On 12-26-2023 09:21:43 EDT by Austin Carmona [facility] 12-26-2023 Note Atrial fibrillation Poor R wave progression, CONSIDER ANTERIOR INFARCT ST and T abnormality Electronically Signed On 12-26-2023 09:21:43 EDT by Austin Carmona [facility] 12-26-2023 Note IMPRESSION: Atrial fibrillation Poor R wave progression, CONSIDER ANTERIOR INFARCT ST and T abnormality Electronically Signed On 12-26-2023 09:21:43 EDT by Austin Harvey [facility] 12-25-2023 Hospital Discharge instructions Mónica David APRN - SIM - 12/25/2023 12:24 PM EDT - Please call the [facility] with any questions: [phone] -You will have have the following follow [...] unless otherwise specified. documented in this encounter [facility] 12-25-2023 Note Patient: Brianne Yao rodolfo Procedure Summary Date: 12/25/23 Room / Location: [facility] Operating Room Anesthesia Start: 945 Anesthesia [...] once all PACU criteria has been met. [facility] 12-25-2023 Note Patient: Brianne reynolds Procedure Summary Date: 12/25/23 Room / Location: [facility] Operating Room Anesthesia Start: 945 Anesthesia [...] opportunity for questions and acknowledgement of understanding. [facility] 12-25-2023 Note Arterial Line: Date/Time: 12/25/2023 10:22 AM An arterial line was placed Procedure performed using ultrasound guidance - Image permanently retained with wire or catheter in vein.in the Procedural for the following indication(s): continuous blood pressure monitoring and blood sampling needed. A (size) (length) (type) catheter was placed, into the Right secured by tape. Staffing Performed: Other Other staff: Harjeet Huffman MD [facility] 12-25-2023 Note Formatting of this n ote [...] The valve was passed through the 14 [place] Islander sapient E sheath into the descending thoracic [...] patient was decannulated transferred stable to recovery. [employer] Phone: 12-25-2023 Note Formatting of this n ote might be different from the original. Date of surgery 12/25/2023 Cardiothoracic Surgeon: Tien Cornell MD, [facility] Preoperative diagnosis: Severe, symptomatic aortic valve [...] The valve was passed through the 14 [place]er sapient E sheath into the descending thoracic [...] patient was decannulated transferred stable to recovery. [employer] Phone: 12-25-2023 Miscellaneous Notes Date of surgery [...] The valve was passed through the 14 [place]er sapient E sheath into the descending thoracic [...] stable to recovery. documented in this encounter [facility] 12-25-2023 Attending History and physical note H&P reviewed. The patient was examined and there are no changes to the H&P. Source Note - Arlene Velez APRN - MUSIC DIRECTOR - 12/22/2023 12:39 PM EDT Images from the original note were not included. H+ P copied to chart from (office provider's name Mónica David APRN) progress note dated 12/12/23 on behalf of (procedural physician's name Dr. Huffman). Expand All Collapse All [facility] - [place] [address] [facility] [address] Dept: [phone] Dept Visit type: Established : 1940 Reason [...] mm Hg. She underwent cardiac cath at [place] which showed non obstructive CAD. He kidney [...] mg IntraVENous Once Mónica David APRN - MUSIC DIRECTOR sodium chloride 0.9 % bolus 500 mL [...] interpretation of tests: Mónica David APRN - MUSIC DIRECTOR [facility] Phone: 12-25-2023 History and physical note H&P reviewed. The patient was examined and there are no changes to the H&P. Source Note - Arlene Velez APRN - MUSIC DIRECTOR - 12/22/2023 12:39 PM EDT Images from the original note were not included. H+ P copied to chart from (office provider's name Mónica David APRN) progress note dated 12/12/23 on behalf of (procedural physician's name Dr. Huffman). Expand All Collapse All [facility] - [place] [address] [facility] [address] Dept: [phone] Dept Visit type: Established : 1940 Reason [...] mm Hg. She underwent cardiac cath at [place] which showed non obstructive CAD. He kidney [...] mg IntraVENous Once Mónica David APRN - MUSIC DIRECTOR sodium chloride 0.9 % bolus 500 mL [...] interpretation of tests: Mónica David APRN - MUSIC DIRECTOR documented in this encounter [facility] 12-25-2023 Note H&P reviewed. The pa camden was examined and there are no changes to the H&P. [facility] 12-22-2023 History and physical note Images from the original note were not included. H+ P copied to chart from (office provider's name Mónica David APRN) progress note dated 12/12/23 on behalf of (procedural physician's name Dr. Huffman). Expand All Collapse All [facility] [place] [address] [facility] [address] Dept: [phone] Dept Visit type: Established : 1940 Reason [...] mm Hg. She underwent cardiac cath at [place] which showed non obstructive CAD. He kidney [...] mg IntraVENous Once Mónica David APRN - MUSIC DIRECTOR sodium chloride 0.9 % bolus 500 mL [...] my specialty: Independent interpretation of tests: Mónica Davdi APRN - MUSIC DIRECTOR Associated attestation - Harjeet Huffman MD - [...] We will proceed with the planned procedure. [facility] 12-22-2023 History and physical note Images from the original note were not included. H+ P copied to chart from (office provider's name Mónica David APRN) progress note dated 12/12/23 on behalf of (procedural physician's name Dr. Huffman). Expand All Collapse All [facility] [place] [address] [facility] [address] Dept: [phone] Dept Visit type: Established : 1940 Reason [...] mm Hg. She underwent cardiac cath at [place] which showed non obstructive CAD. He kidney [...] mg IntraVENous Once Mónica David APRN - MUSIC DIRECTOR sodium chloride 0.9 % bolus 500 mL [...] interpretation of tests: Mónica David APRN - MUSIC DIRECTOR Associated attestation - Harjeet Huffman MD - [...] the planned procedure. documented in this encounter [facility] 12-22-2023 Note Attestation signed by Harjeet Huffman [...] (procedural physician's name Dr. Huffman). Expand All [facility] CARDIOLOGY [address] [address] Dept: [phone] Dept Visit type: Established : 1940 Reason [...] mm Hg. She underwent cardiac cath at [place] which showed non obstructive CAD. He kidney [...] spironolactone (Aldactone) 25 (more content not included)... [facility] 12-22-2023 Note Attestation signed by Harjeet Huffman [...] name Dr. Huffman). Expand All Collapse All [facility] [address] [address] Dept: [phone] Dept Visit type: Established : 1940 Reason [...] process regarding treatment of aortic stenosis. Brianne [place] Call was made aware of the techniques [...] mm Hg. She underwent cardiac cath at [place] which showed non obstructive CAD. He kidney [...] spironolactone (Aldactone) 25 (more content not included)... [facility] 12-21-2023 Note Pre TAVR phone call placed. Reviewed, procedure, instructions and meds. Confirmed Eliquis, and Dye Allergy Prep med instructions. Pt verbalizes understanding. Pt knows to call [phone] with any concerns. Teofilo Velez CNP notified for prep for procedure orders. Diagnosis: Procedure being done: TF TAVR Date/time of procedure: 12/25/2023 @ 9:15 am Surgeon: Dr. Huffman 2nd surgeon: Dr. Olsen Admission type: To be admitted Anesthesia: MAC Completed: H&P/BNP/CBC/CMP/CXR/EKG Date completed: [facility] 12/19/23, 12/12/23 Additional orders Dye Allergy Prep [facility] 12-15-2023 Note Patient: Brianne reynolds Procedure Information Date/Time: 12/25/2315 Procedures: TRANSCATHETER AORTIC VALVE REPLACEMENT, TRANSTHORACIC ECHOCARDIOGRAM TRANSCATHETER AORTIC VALVE REPLACEMENT, TRANSTHORACIC ECHOCARDIOGRAM (Chest) Location: [facility] Operating Room Surgeons: Harjeet Huffman MD; Juan [...] Tavr checklist complete Records in media Carolina Castro Vanita, PIPEFITTER - MUSIC DIRECTOR JOB Screening Labs: Lab Results Component Value [...] 71 mmHg Equipment Requests: Additional Equipment Requests [facility] 12-12-2023 History of Present illness Narrative Pts symptoms of the reaction have all gone away. Pt states she feels back to normal. Pt came back from CT and pts face is red and she states she is starting to progressively get itchy. Mónica David NP is here at this time and order medications. documented in this encounter [facility] 12-12-2023 History of Present illness Narrative Images from the original note were not included. [facility] [place] [address] [place] [address] Dept: [phone] Dept Visit type: Established : 1940 Reason [...] risk, characteristics, and goals of care. Brianne Kaufmangautam was engaged in the decision and expressed [...] mm Hg. She underwent cardiac cath at [place] which showed non obstructive CAD. He kidney [...] mg 100 mg IntraVENous Once Mónica David PIPEFITTER - MUSIC DIRECTOR sodium chloride 0.9 % bolus 500 mL [...] JEREMIE Ruiz CNP documented in this encounter [facility] [employer] 12-12-2023 Note Pt came back from CT and pts face is red and she states she is starting to progressively get itchy. Mónica David MEDICATION COORDINATOR is here at this time and order medications. [facility] 12-06-2023 Note Message reviewed. Re commend CTA with IV hydration. Can get pre procedure labs at time of CTA. [facility] 11-21-2023 History of Present illness Narrative Images from the original note were not included. [facility] [address] [facility] [address] Dept: [phone] Dept Loc: [phone] Today's Visit Location: TAVR (transcather aortic valve replacement) Clinic [facility] [address] [place] [address] Visit type: Senior Health Assessment at TAVR (transcather aortic valve replacement) Clinic Visit Date: 11/21/2023 Reason for Visit: Shortness of Breath Assessment and Plan 1. Nonrheumatic aortic valve stenosis Assessment & Plan: S/p AV replacement by Dr. Nagy in 201209/22/23 Transthoracic Echo (TTE) noted "severe aortic stenosis". Mean Gradient of 49. Dr. Garces in [place]. No aortic valve area mentioned. I agree with cardiology plan as discussed with trombone slide assembler Dr. Huffman and CTS Dr. Reed on [...] Patient has already named her Power of Mixing Tumbler Operator for Healthcare and Finances (Both are her daughter Shama López) I recommended patient follow-up with [facility] (phone: [phone] fax: [phone]) as needed for memory testing. 4. Drug-induced [...] Mean Gradient of 49. Dr. Garces in [place]. No aortic valve area mentioned. A fib [...] no=0 points)0 - patient rents room from . Rajiv (son) lives w pt Reduce mobility [...] Current events: Does know current [place] President (Lawsonmilton Garay). What is the name of the [...] [] Daughter Shama López (financial Power of Mixing Tumbler Operator) is on bank acct but patient manages [...] phrases are mis-transcribed.) documented in this encounter [facility] 11-21-2023 Instructions Thaddeus Mckeon MD - 11/21/2023 3:30 PM EDT GERIATRICS DISCHARGE INSTRUCTIONS: Follow-up with [facility] (phone: [phone] fax: [phone]) as needed for memory testing. Please BEGIN [...] risk of falls. documented in this encounter [facility] 11-21-2023 Evaluation + Plan note Associated Problem(s): Drug-induced bradycardia HR 58 bpm today but no syncope, presyncope, falls Patient asymptomatic today Patient taking lopressor 12.5mg po bid - I encouraged patient to discuss with her cardiologists/PCP (primary care provider) regarding change of meds given her advanced age and increased risk of falls [facility] 11-21-2023 Miscellaneous Notes Associated Problem(s): Drug-induced bradycardia [...] Patient has already named her Power of Mixing Tumbler Operator for Healthcare and Finances (Both are her daughter Shama López) I recommended patient follow-up with [facility] (phone: [phone] fax: [phone]) as needed for memory testing. Associated Problem(s): [...] Mean Gradient of 49. Dr. Garces in [place]. No aortic valve area mentioned. I agree with cardiology plan as discussed with trombone slide assembler Dr. Huffman and CTS Dr. Reed on same date regarding next steps for further workup/treatment of cardiac disease which likely includes heart cath +/- TAVR. On this date of evaluation, the patient has sufficient understanding of procedure(s) to consent to the procedure(s) being discussed and has adequate social support(s). documented in this encounter [facility] 11-21-2023 History of Present illness Narrative Images from the original note were not included. [facility]: Cardiothoracic Surgery Multidisciplinary Heart Valve Clinic Date: 11/21/23 Patient:Brianne Call 1940 83 y.o. female [id number] Subjective: HPI: Brianne Call 83 y.o. referred [...] near future. Given her proximity to [facility], she would prefer LHC performed there. [...] encounter. Electronically signed by Juan Reed DO, [place] Patient Care Team: Alvarado Hull MD as [...] other diagnostic images. documented in this encounter [facility] 11-21-2023 Evaluation + Plan note Associated Problem(s): Short-term memory loss Chronic Patient with occasional word-finding difficulties I suspect either normal memory loss for aging or possibly MCI (Mild Cognitive Impairment) Patient has already named her Power of Mixing Tumbler Operator for Healthcare and Finances (Both are her daughter Shama López) I recommended patient follow-up with [facility] (phone: [phone] fax: [phone]) as needed for memory testing. [facility] 11-21-2023 Evaluation + Plan note Associated Problem(s): Chronic atrial fibrillation (HCC) Chronic; Stable Asymptomatic May be nearing renal (kidney) dysfunction requiring reduced dose of eliquis (given Cr nearly 1.5 in past and patient's age >80 yo). May need eliquis 2.5mg po bid instead of 5mg po bid in future pending renal (kidney) function [facility] 11-21-2023 Evaluation + Plan note Associated Problem(s): [...] not missing or doubling up on meds [facility] 11-21-2023 Evaluation + Plan note Associated Problem(s): Nonrheumatic aortic valve stenosis S/p AV replacement by Dr. Nagy in 201209/22/23 Transthoracic Echo (TTE) noted "severe aortic stenosis". Mean Gradient of 49. Dr. Garces in [place]. No aortic valve area mentioned. I agree with cardiology plan as discussed with trombone slide assembler Dr. Huffman and CTS Dr. Reed on same date regarding next steps for further workup/treatment of cardiac disease which likely includes heart cath +/- TAVR. On this date of evaluation, the patient has sufficient understanding of procedure(s) to consent to the procedure(s) being discussed and has adequate social support(s). [facility] 11-21-2023 History of Present illness Narrative Images from the original note were not included. [facility] [address] [address] Dept: [phone] Dept Visit type: New : 1940 Reason for Visit: Cardiac Valve Problem Assessment and Plan 1. LV dysfunction 2. Stenosis of prosthetic aortic valve, initial encounter - ECG 12 lead - CLINIC PERFORMED This is a very pleasant 83 y.o. 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 she is clearly in need of aortic valve replacement, likely [id number] TAVR. Will need a diagnostic cath first, [...] Recheck on cath complete. Sonya HPI Brianne Russell Call is a very pleasant 83 y.o. female who is here for evaluation of her aortic valve disease. She had a bioprosthetic aortic valve replacement in 2013 with a 25mm Medtronic valve. She has [...] Harjeet Huffman MD documented in this encounter [facility] 11-16-2023 Note Received fax referra l to [facility] from Dr. Garces @ [facility]. I spoke w/ Juana, echo images to be pushed to PACS, she will fax lab work. I spoke w/ pt, appt scheduled. Chart made. [facility] Evaluation note No assessment inform ation available [facility] Work Phone: Evaluation note Diagnosis Nonrheumatic aortic valve stenosis- Primary Chronic atrial fibrillation (HCC) Atrial fibrillation Short-term memory loss Memory loss Drug-induced bradycardia Polypharmacy Issue of repeat prescriptions [facility] Diagnosis Stenosis of prosthetic aortic valve, initial encounter- Primary [facility] Diagnosis LV dysfunction- Primary Left heart failure Stenosis of prosthetic aortic valve, initial encounter documented in this encounter [facility]* Diagnosis Nonrheumatic aortic valve stenosis- Primary Chronic atrial fibrillation (HCC)- Primary Atrial fibrillation Nonrheumatic aortic valve stenosis Adverse effect of contrast media, initial encounter Nonrheumatic aortic valve stenosis documented in this encounter [facility] note* Diagnosis Nonrheumatic aortic valve stenosis- Primary Renal failure, unspecified chronicity Stenosis of prosthetic aortic valve, initial encounter Nonrheumatic aortic valve stenosis documented in this encounter [facility]* Diagnosis Nonrheumatic aortic valve stenosis- Primary Nonrheumatic aortic valve stenosis Nonrheumatic aortic valve stenosis documented in this encounter [facility]* Diagnosis Nonrheumatic aortic valve stenosis- Primary Severe aortic stenosis- Primary Aortic valve disorders Nonrheumatic aortic valve stenosis documented in this encounter [facility]* Diagnosis Severe aortic stenosis- Primary Aortic valve disorders documented in this encounter [facility]* Diagnosis Nonrheumatic aortic valve stenosis- Primary Severe aortic stenosis Aortic valve disorders Severe aortic stenosis Aortic valve disorders Nonrheumatic aortic valve stenosis documented in this encounter [facility]* Diagnosis Chronic atrial fibrillation (HCC)- Primary Atrial fibrillation Severe aortic stenosis Aortic valve disorders Stage 3a chronic kidney disease (HCC) Left heart failure (HCC) Left heart failure documented in this encounter [facility] note* Diagnosis Nonrheumatic aortic valve stenosis- Primary Chronic atrial fibrillation (HCC) Atrial fibrillation Short-term memory loss Memory loss Drug-induced bradycardia Polypharmacy Issue of repeat prescriptions S/P TAVR (transcatheter aortic valve replacement) [facility] Diagnosis Nonrheumatic aortic valve stenosis- Primary Chronic atrial fibrillation (HCC) Atrial fibrillation Short-term memory loss Memory loss Drug-induced bradycardia Polypharmacy Issue of repeat prescriptions S/P TAVR (transcatheter aortic valve replacement) documented in this encounter [facility] for referral (narrative)No reason for referral [facility] Phone: Family History No [...] Yes December 26 8 12:21pm Power of Mixing Tumbler Operator Yes December 26 018 12:21pm Date Activated Date Inactivated Comments 12/25/2023 7:26 AM Date Activated Date Inactivated Comments 12/25/2023 7:26 AM 12/26/2023 3:54 PM Date Activated Date Inactivated Comments 12/25/2023 7:26 AM 12/26/2023 3:54 PM Advance Directive Response Recorded Date/ Time Advance Directives Yes November 7:44am Reason for Referral Specialty Diagnoses / Procedures Referred By Roseline t Referred To Contact Radiology Diagnoses Nonrheumatic aortic valve stenosis Procedures CTA Angiogram TAVR Arlene Velez APRN - MUSIC DIRECTOR [address] [place] [address] Referral ID Status Reason Start Date Expiration Date Visits Re quested Visits Authorized [id number] Closed 12/07/2023 02/05/2024 1 1 Summary Purpose Chief Complaint and Reason for Visit Chief Complaint Admit Date MONTHLY EXAM February 27, 2024 3:12pm LABWORK March 01, 2024 5:00am [facility] March 08 4:00am LABWORK March 15, 2024 2:14pm NEW CONCERN March 15, 2024 4:36pm MONTHLY EXAM April 02, 2024 1 1:01pm [facility] April 09, 2024 5:00am [facility] April 22, 2024 5:00am LABWORK May 07, 2024 5:00am MONTHLY EXAM May 16, 2024 11:05am [facility] June 04, 2024 5 :00am Chief Complaint Admit Date MONTHLY EXAM April 02, 2024 1 1:01pm [facility] April 09, 2024 5:00am [facility] April 22, 2024 5:00am LABWORK May 07, 2024 5:00am MONTHLY EXAM May 16, 2024 11:05am MONTHLY EXAM May 28, 2024 4:2 0pm [facility] June 04, 2024 5 :00am [facility] June 18, 2024 5: 00am [facility] July 02, 2024 5 :00am Chief Complaint Admit Date [facility] April 22, 2024 5:00am LABWORK May 07, 2024 5:00am MONTHLY EXAM May 16, 2024 11:05am MONTHLY EXAM May 28, 2024 4:2 0pm [facility] June 04, 2024 5 :00am [facility] WORK June 18, 2024 5: 00am [facility] July 02, 2024 5 :00am LABWORK July 30, 2024 5:00a m Chief Complaint Admit Date LABWORK May 07, 2024 5:00am MONTHLY EXAM May 16, 2024 11:05am MONTHLY EXAM May 28, 2024 4:2 0pm [facility] June 04, 2024 5 :00am [facility] June 18, 2024 5: 00am [facility] WORK July 02, 2024 5 :00am [facility] July 15, 2024 4 :00am LABWORK July 30, 2024 5:00a m Chief Complaint Admit Date [facility] June 18, 2024 5: 00am [facility] July 02, 2024 5 :00am [facility] July 15, 2024 4 :00am MONTHLY EXAM July 23, 2024 3:15pm LABWORK July 30, 2024 5:00a m [facility] August 14, 2024 5:0 0am [facility] August 27, 2024 5: 00am Chief Complaint Admit Date [facility] June 18, 2024 5: 00am [facility] July 02, 2024 5 :00am [facility] July 15, 2024 4 :00am MONTHLY EXAM July 23, 2024 3:15pm LABWORK July 30, 2024 5:00a m [facility] August 14, 2024 5:0 0am NEW CONCERN August 20, 2024 3:45p m [facility] August 27, 2024 5: 00am Chief Complaint Admit Date [facility] June 18, 2024 5: 00am [facility] July 02, 2024 5 :00am [facility] July 15, 2024 4 :00am MONTHLY EXAM July 23, 2024 3:15pm LABWORK July 30, 2024 5:00a m [facility] August 14, 2024 5:0 0am NEW CONCERN August 20, 2024 3:45p m [facility] August 27, 2024 5: 00am NEW CONCERN September 02, 2024 3:00 pm Chief Complaint Admit Date [facility] July 15, 2024 4 :00am MONTHLY EXAM July 23, 2024 3:15pm LABWORK July 30, 2024 5:00a m [facility] August 14, 2024 5:0 0am NEW CONCERN August 20, 2024 3:45p m [facility] August 27, 2024 5: 00am NEW CONCERN September 02, 2024 3:00 pm [facility] September 24, 2024 4:0 0am Monthly Exam October 01, 2024 4:50 pm LABWORK October 07, 2024 5:00 am [facility] October 09, 2024 5: 00am Chief Complaint Admit Date MONTHLY EXAM July 23, 2024 3:15pm LABWORK July 30, 2024 5:00a m [facility] August 14, 2024 5:0 0am NEW CONCERN August 20, 2024 3:45p m [facility] August 27, 2024 5: 00am NEW CONCERN September 02, 2024 3:00 pm [facility] September 24, 2024 4:0 0am Monthly Exam October 01, 2024 4:50 pm LABWORK October 07, 2024 5:00 am [facility] October 09, 2024 5: 00am [facility] October 22, 2024 5 :00am MONTHLY EXAM October 23, 2024 5:3 0pm Chief Complaint Admit Date [facility] August 27, 2024 5: 00am NEW CONCERN September 02, 2024 3:00 pm [facility] September 24, 2024 4:0 0am Monthly Exam October 01, 2024 4:50 pm LABWORK October 07, 2024 5:00 am [facility] October 09, 2024 5: 00am [facility] October 22, 2024 5 :00am MONTHLY EXAM October 23, 2024 5:3 0pm [facility] November 19 5:00am Additional Source Comments Goals (unrecognized section and [...] Provi guillermo, Attending Provider, Referring Provider Active Milieu Manager Relationship Specialty Start Date End Date Alvarado Hull MD [address] [place] [address] PCP - General Geriatric Medicine 11/21/23 Milieu Manager Relationship Specialty Start Date End Date Alvarado Hull MD [address] [place] [address] PCP - General Geriatric Medicine 11/21/23 Milieu Manager Relationship Specialty Start Date End Date Alvarado Hull MD [address] [place] [address] PCP - General Geriatric Medicine 11/21/23 Milieu Manager Relationship Specialty Start Date End Date Alvarado Hull MD [address] [place] [address] PCP - General Geriatric Medicine 11/21/23 Milieu Manager Relationship Specialty Start Date End Date Alvarado Hull MD [address] [place] [address] PCP - General Geriatric Medicine 11/21/23 Milieu Manager Relationship Specialty Start Date End Date Alvarado Hull MD [address] [place] [address] PCP - General Geriatric Medicine 11/21/23 Milieu Manager Relationship Specialty Start Date End Date Alvarado Hull MD [address] [place] [address] PCP - General Geriatric Medicine 11/21/23 Milieu Manager Relationship Specialty Start Date End Date Alvarado Hull MD [address] [place] [address] PCP - General Geriatric Medicine 11/21/23 Milieu Manager Relationship Specialty Start Date End Date Alvarado Hull MD [address] [place] [address] PCP - General Geriatric Medicine 11/21/23 Milieu Manager Relationship Specialty Start Date End Date Alvarado Hull MD [address] [place] [address] PCP - General Geriatric Medicine 11/21/23 Milieu Manager Relationship Specialty Start Date End Date Alvarado Hull MD [address] [place] [address] PCP - General Geriatric Medicine 11/21/23 Team Status: Inactive Member Role Status Dates Dr. Scott Hull MD Primary Care Provider Active Start: February 27, 2024 End: February 27, 2024 Sara Irizarry MEDICATION COORDINATOR, MEDICATION COORDINATOR-C Attending Provider Active Start: February 27, 2024 [...] 2024 End: March 15, 2024 Sara Irizarry MEDICATION COORDINATOR, MEDICATION COORDINATOR-C Attending Provider Active Start: March 15, 2024 [...] 2024 End: August 20, 2024 Sara Irizarry MEDICATION COORDINATOR, MEDICATION COORDINATOR-C Attending Provider Active Start: August 20, 2024 [...] 2024 End: September 02, 2024 Sara Irizarry MEDICATION COORDINATOR, MEDICATION COORDINATOR-C Attending Provider Active Start: September 02, 2024 [...] Status: Inactive Member Role/Relationship Status Dates Dr. cSott Hull MD Primary Care Provider Active Start: [...] Active Start: August 14, 2024 Team Status: Inactive Member Role/Relationship Status Dates Dr. Scott Hull MD Primary Care Provider Active Start: August 20, 2024 End: August 20, 2024 Sara Irizarry MEDICATION COORDINATOR, MEDICATION COORDINATOR-C Attending Provider Active Start: August 20, 2024 End: August 20, 2024 Team Status: Active Member Role/Relationship Status Dates Dr. Scott Hull MD Primary Care Provider Active Start: August 27, 2024 Joe PORTILLO MD Attending Provider Active Start: August 27, 2024 Team Status: Inactive Member Role/Relationship Status Dates Dr. Scott Hull MD Primary Care Provider Active Start: September 02, 2024 End: September 02, 2024 Sara Irizarry MEDICATION COORDINATOR, MEDICATION COORDINATOR-C Attending Provider Active Start: September 02, 2024 End: September 02, 2024 Team Status: Active Member Role/Relationship Status Dates Dr. Scott Hull MD Primary Care Provider Active Start: September 24, 2024 Joe PORTILLO MD Attending Provider Active Start: September 24, 2024 Joe PORTILLO MD Referring Provider Active Start: September 24, 2024 Team Status: Inactive Member Role/Relationship Status Dates Dr. Scott Hull MD Primary Care Provider Active Start: October 01, 2024 End: October 01, 2024 Dr. Joe Sanchez MD Attending Provider Active Start: October 01, 2024 End: October 01, 2024 Team Status: Active Member Role/Relationship Status Dates Dr. Scott Hull MD Primary Care Provider Active Start: October 07, 2024 Joe PORTILLO MD Attending Provider Active Start: October 07, 2024 Team Status: Active Member Role/Relationship Status Dates Dr. Scott Hull MD Primary Care Provider Active Start: October 09, 2024 Joe PORTILLO MD Attending Provider Active Start: October 09, 2024 Team Status: Active Member Role/Relationship Status Dates Dr. Scott Hull MD Primary Care Provider Active Start: October 22, 2024 Joe PORTILLO MD Attending Provider Active Start: October 22, 2024 Team Status: Inactive Member Role/Relationship Status [...] Active Start: August 14, 2024 Team Status: Inactive Member Role/Relationship Status Dates Dr. Scott Hull MD Primary Care Provider Active Start: August 20, 2024 End: August 20, 2024 Sara Irizarry NP MEDICATION COORDINATOR-C Attending Provider Active Start: August 20, 2024 End: August 20, 2024 Team Status: Active Member Role/Relationship Status Dates Dr. Scott Hull MD Primary Care Provider Active Start: August 27, 2024 Joe PORTILLO MD Attending Provider Active Start: August 27, 2024 Team Status: Inactive Member Role/Relationship Status Dates Dr. Scott Hull MD Primary Care Provider Active Start: September 02, 2024 End: September 02, 2024 Sara Irizarry NP MEDICATION COORDINATOR-C Attending Provider Active Start: September 02, 2024 End: September 02, 2024 Team Status: Active Member Role/Relationship Status Dates Dr. Scott Hull MD Primary Care Provider Active Start: September 24, 2024 Joe PORTILLO MD Attending Provider Active Start: September 24, 2024 Joe PORTILLO MD Referring Provider Active Start: September 24, 2024 Team Status: Inactive Member Role/Relationship Status Dates Dr. Scott Hull MD Primary Care Provider Active Start: October 01, 2024 End: October 01, 2024 Dr. Joe Sanchez MD Attending Provider Active Start: October 01, 2024 End: October 01, 2024 Team Status: Active Member Role/Relationship Status Dates Dr. Scott Hull MD Primary Care Provider Active Start: October 07, 2024 Joe PORTILLO MD Attending Provider Active Start: October 07, 2024 Team Status: Active Member Role/Relationship Status Dates Dr. Scott Hull MD Primary Care Provider Active Start: October 09, 2024 Joe PORTILLO MD Attending Provider Active Start: October 09, 2024 Team Status: Active Member Role/Relationship Status Dates Dr. Scott Hull MD Primary Care Provider Active Start: October 22, 2024 Joe PORTILLO MD Attending Provider Active Start: October 22, 2024 Team Status: Inactive Member Role/Relationship Status Dates Dr. Scott Hull MD Primary Care Provider Active Start: October 23, 2024 End: October 23, 2024 Sara Irizarry NP, MEDICATION COORDINATOR-C Attending Provider Active Start: October 23, 2024 End: October 23, 2024 Team Status: Active Member Role/Relationship Status Dates Dr. Scott Hull MD Primary Care Provider Active Start: November 19, 2024 Joe PORTILLO MD Attending Provider Active Start: November 19, 2024 Team Status: Active Member Role/Relationship Status Dates Dr. Scott Hull MD Primary care physician Active Team Status: Active Member Role/Relationship Status Dates Dr. Scott Hull MD Primary care physician Active Start: August 27, 2024 Joe PORTILLO MD Attending physician Active Start: August 27, 2024 Team Status: Inactive Member Role/Relationship Status Dates Dr. Scott Hull MD Primary care physician Active Start: September 02, 2024 End: September 02, 2024 Sara Irizarry NP, MEDICATION COORDINATOR-C Attending physician Active Start: September 02, 2024 End: September 02, 2024 Team Status: Active Member Role/Relationship Status Dates Dr. Scott Hull MD Primary care physician Active Start: September 24, 2024 Joe PORTILLO MD Attending physician Active Start: September 24, 2024 Joe PORTILLO MD Referring Provider Active Start: September 24, 2024 Team Status: Inactive Member Role/Relationship Status Dates Dr. Scott Hull MD Primary care physician Active Start: October 01, 2024 End: October 01, 2024 Dr. Joe Sanchez MD Attending physician Active Start: October 01, 2024 End: October 01, 2024 Team Status: Inactive Member Role/Relationship Status Dates Dr. Scott Hull MD Primary care physician Active Start: October 07, 2024 End: October 07, 2024 oJe PORTILLO MD Attending physician Active Start: October 07, 2024 End: October 07, 2024 Team Status: Active Member Role/Relationship Status Dates Dr. Scott Hull MD Primary care physician Active Start: October 09, 2024 Joe PORTILLO MD Attending physician Active Start: October 09, 2024 Team Status: Active Member Role/Relationship Status Dates Dr. Scott Hull MD Primary care physician Active Start: October 22, 2024 Joe PORTILLO MD Attending physician Active Start: October 22, 2024 Team Status: Inactive Member Role/Relationship Status Dates Dr. Scott Hull MD Primary care physician Active Start: October 23, 2024 End: October 23, 2024 Sara Irizarry NP, MEDICATION COORDINATOR-C Attending physician Active Start: October 23, 2024 End: October 23, 2024 Team Status: Active Member Role/Relationship Status Dates Dr. Scott Hull MD Primary care physician Active Start: November 19, 2024 Joe PORTILLO MD Attending physician Active Start: November 19, 2024 Team Status: Active Member Role/Relationship Status Dates Dr. Scott Hull MD Primary care physician Active Start: December 04, 2024 Joe PORTILLO MD Attending physician Active Start: December 04, 2024 Team Status: Active Member Role/Relationship Status Dates Dr. Scott Hull MD Primary care physician Active Start: December 17, 2024 Joe PORTILLO MD Attending physician Active Start: December 17, 2024 Reason for Visit (unrecogniz ed section [...] INFUSION TREATMENT Harjeet Huffman MD [address] [place] [address] [place] [address] Referral ID Status Reason Start Date Expiration Date Visits Re quested Visits Authorized [id number] Closed 12/12/2023 12/06/2024 1 1 Specialty Diagnoses / Procedures Referred By Contac t Referred To Contact Radiology Diagnoses Nonrheumatic aortic valve stenosis Procedures CTA Angiogram TAVR Arlene Velez APRN - MUSIC DIRECTOR [address] [place] [address] Referral ID Status Reason Start Date Expiration Date Visits Re quested Visits Authorized [id number] Closed 12/07/2023 02/05/2024 1 1 Specialty Diagnoses / Procedures Referred By Contac t Referred To Contact Diagnoses Nonrheumatic aortic valve stenosis Procedures TRANSCATHETER AORTIC VALVE REPLACEMENT, TRANSTHORACIC ECHOCARDIOGRAM TRANSCATHETER AORTIC VALVE REPLACEMENT, TRANSTHORACIC ECHOCARDIOGRAM Harjeet Huffman MD [address] [place] [address] [address] [place] [address] Referral ID Status Reason Start Date Expiration Date Visits Re quested Visits Authorized [id number] 1 1 Reason Comments Cardiac Valve Problem [...] (Given - Provider: Edgar Warner APRN - SIDE SAWYER) dapagliflozin (Farxiga) tablet 10 mg 10 mg, [...] Reason: Other - Comment: HR in 40s) 30 (Not Given - Provider: Leticia Arshad RN [...] section and content) DATE CREATED AUTHOR 04/04/2024 [facility] DATE CREATED AUTHOR AUTHOR'S ORGANIZ ATION 01/30/2025 [facility] FOR RECORDS PERTAINING TO PATIENTS WHO [...] BE BASED ON THE PRIMARY CLINICAL RECORDS. [facility]. provides no warranty or guarantee of the accuracy or completeness of information in this document.
[2025-02-11 07:03] LABS: Hematocrit 41.1 % (37-47); Hemoglobin 13.6 g/dL (12.0-15.0); Immature Granulocytes Count 0.040 X10^3/uL (0.0-0.0); Mean Corp Hgb Conc 33.1 g/dL (32-36); Mean Corpuscular Volume 95.1 fL (81-99); Mean Platelet Vol. 12.1 fl (6.2-12.0); NRBC Flagged by Analyzer 0 % (0-5); Platelet Count 212 K/mm3 (150-450); RBC Distribution Width CV 14.2 % (11.6-14.6); RBC Distribution Width SD 49.9 fl (35.1-43.9); Red Blood Count 4.32 M/mm3 (4.2-5.4); White Blood Count 6.9 K/mm3 (4.4-11.0)
[2025-02-11 07:43] LABS: Anion Gap 13 (5-15); BUN 24 mg/dL (4-19); BUN/Creat Ratio 13.4 RATIO (10-20); Calcium,Total 9.0 mg/dL (7.6-11.0); Carbon Dioxide 25.1 mmol/L (21.0-32.0); Chloride 101 mmol/L (98-108); Glucose 96 mg/dL (70-99); Potassium 4.4 mmol/L (3.3-5.1)
== END ==
LOC: OLS.WHLEAS 05:00
PROVIDERS: PCP Family Medicine Geriatric Medicine; Visit Provider Internal Medicine
DX: R48.8 Other symbolic dysfunctions (principal); I63.542 Cerebral infarction due to unspecified occlusion or stenosis of left cerebellar artery; I69.320 Aphasia following cerebral infarction; I69.351 Hemiplegia and hemiparesis following cerebral infarction affecting right dominant side
CPT/HCPCS: 36415; 80048; 85025

== ENCOUNTER → 2025-02-12 | Outpatient (CLI) | payer MEDICARE, MEDICAID, SELFPAY ==
--- NOTE | 2025-02-12 07:59 | ECHOCS_ITS ---
Reason For Study Reason For Study: VALVE REPLACEMENT- EVAL Procedure This was a 2D Doppler, Color Flow transthoracic echocardiogram. The study was technically difficult. Contrast injection was performed. Patient unable to tolerate pressure from probe well in apical windows. Exam performed in department. Left Ventricle Normal LV size. Mild concentric left ventricular hypertrophy. Mild LV systolic dysfunction. Estimated LVEF 40-45%. At least stage I diastolic dysfunction. Right Ventricle Normal right ventricle. Atria The left atrium is severely enlarged. The right atrium is moderately enlarged. Mitral Valve Severe mitral valve annular calcification. Mild mitral valve regurgitation. Tricuspid Valve Mild (1+) tricuspid valve insufficiency. Right ventricular systolic pressure estimated to be 38 mmHg. Aortic Valve Bioprosthetic aortic valve mean peak gradient 20.7 mmHg. Pulmonic Valve Trivial pulmonic valve insufficiency. Great Vessels Normal sized aortic root. Pericardium/Pleural No pericardial effusion. Medication 24 gauge I.V. with prn adaptor inserted into left arm. Diluted definity 1.5ml given slow IV push to enhance endocardial definition. MMode/2D Measurements & Calculations LVIDd: 4.9 cm IVSd: 1.3 cm LVOT diam: 2.0 cm LVIDs: 3.1 cm LVPWd: 1.1 cm RVDd: 3.9 cm FS: 35.6 % LVOT area: 3.2 cm2 asc Aorta Diam: 3.7 cm LAV(MOD-bp): 91.6 ml LVAd ap4: 29.2 cm2 LAV(MOD-bp) Indexed: 44.0 ml/m2 LVLd ap4: 7.1 cm LAV(MOD-sp2): 77.9 ml EDV(MOD-sp4): 93.2 ml LAV(MOD-sp4): 87.5 ml EDV(sp4-el): 102.0 ml LVAs ap4: 17.0 cm2 LVLs ap4: 5.5 cm ESV(MOD-sp4): 39.8 ml ESV(sp4-el): 44.2 ml EF(MOD-sp4): 57.2 % EF(sp4-el): 56.6 % LVAd ap2: 28.7 cm2 SV(MOD-sp4): 53.3 ml SV(MOD-sp2): 51.1 ml LVLd ap2: 7.5 cm SI(MOD-sp4): 25.6 ml/m2 SI(MOD-sp2): 24.6 ml/m2 EDV(MOD-sp2): 87.1 ml EDV(sp2-el): 94.0 ml LVAs ap2: 16.4 cm2 LVLs ap2: 6.0 cm ESV(MOD-sp2): 36.0 ml ESV(sp2-el): 38.2 ml EF(MOD-sp2): 58.6 % SV(sp4-el): 57.8 ml LA dimension(2D): 5.2 cm LA A4 area: 29.4 cm2 RA A4 area: 21.0 cm2 TAPSE: 1.2 cm Time Measurements MV dec time: 0.24 sec Doppler Measurements & Calculations MV E max sujey: 103.0 cm/sec Ao V2 max: 252.5 cm/sec LV V1 max: 114.2 cm/sec Ao max P.0 mmHg LV V1 max P.2 mmHg Ao V2 mean: 188.2 cm/sec LV V1 mean P.0 mmHg Ao mean P.7 mmHg LV V1 mean: 81.6 cm/sec Ao V2 VTI: 59.0 cm LV V1 VTI: 28.6 cm AV (velocity ratio): 0.48 RAMÓN(I,D): 1.6 cm2 RAMÓN(V,D): 1.4 cm2 SV(LVOT): 91.5 ml PA V2 max: 94.0 cm/sec TR max sujey: 286.9 cm/sec TR max P.9 mmHg ECHO/Echo Complete W/ Contrast Interpretation Summary Mild concentric left ventricular hypertrophy. Mild LV systolic dysfunction. Estimated LVEF 40-45%. At least stage I diastolic dysfunction. The left atrium is severely enlarged. The right atrium is moderately enlarged. Severe mitral valve annular calcification. Mild mitral valve regurgitation. Mild (1+) tricuspid valve insufficiency. Bioprosthetic aortic valve mean peak gradient 20.7 mmHg. The study was technically difficult. Ordering Physician: Sara Man Referring Physician: Scott Hull Chi Performed By: Shar Lucia RDCS
== END | disposition home or self-care (01) ==
LOC: CVS 07:59
PROVIDERS: PCP Family Medicine Geriatric Medicine; Referring Provider Nurse Practitioner Gerontology; Visit Provider Nurse Practitioner Gerontology
DX: Z95.2 Presence of prosthetic heart valve (principal); I50.20 Unspecified systolic (congestive) heart failure
CPT/HCPCS: 93306; Q9957; A4216; C8929

== ENCOUNTER → 2025-02-28 05:00 | Outpatient (REF) | payer MEDICARE, MEDICAID, SELFPAY ==
--- OUTSIDE RECORDS SUMMARY | 2025-02-28 04:08 | XMS RPT_ITS | CCD ---
Author Organization [facility] Care Team Providers Care Singing Messenger Name Role Phone Lucrecia Paige N Unavailable Lucrecia Paige N Unavailable Lucrecia Paige N Unavailable Yari Hernandez RN Unavailable Unavailable Yari Hernandez RN Unavailable Unavailable Paige Singer N Unavailable Shelly Ahuja Unavailable Unavailable SISI Gutierrez Michelle M Unavailable Yari Hernandez RN Unavailable Unavailable Alvarado Hull MD Primary Care Provider [phone] HARJEET HUFFMAN Attending Unavailable BITHARJEET PIERCE Referring [...] Sanchez MD, Dr. Diaz Attending Provider [phone] Kurtis GUNN, Dr. Scott Sabillon Primary Care Provider Daniel GUNN, Joe Attending Provider Unavailagustin Sanchez MD, Joe Referring Provider Unavailagustin Hull MD, Dr. Scott Sabillon Primary Care Provider Daniel GUNN, Joe Attending Provider Unavailagustin Sanchez MD, Dr. Diaz Attending Provider [phone] Sara Cormier Attending Provider Kurtis GUNN, Dr. Scott Sabillon Primary Care Provider Daniel GUNN, Joe Attending Provider Unavailagustin Hull MD, Dr. Scott Sabillon Primary Care Provider Joe Sanchez MD Attending Provider Unavailagustin Snachez MD, Joe Referring Provider Unavailagustin Hull MD, Dr. Scott Sabillon Primary Care Physician Joe Sanchez MD Attending Physician Unavail able Sara Cormier Attending Physician Daniel GUNN, Dr. Diaz Attending Physician [phone] Oleghe OLS, Efewongbe Referring Unavailabl e Oleghe OLS, Efewongbe Attending Unavailabl e Kurtis, [facility] Primary Care Unavailable Oleghe OLS, Efewongbe Attending Unavailabl e Kurtis, [facility] Primary Care Unavailable Oleghe OLS, Efewongbe Referring Unavailabl e Oleghe OLS, Efewongbe Attending Unavailabl e Kurtis, [facility] Primary Care Unavailable Oleghe OLS, Efewongbe Attending Unavailabl e Kurtis, [facility] Primary Care Unavailable Oleghe OLS, Efewongbe Attending [...] Unavailable Kurtis, Scott Chi Referring Unavailable [place] VICE PRESIDENT INTEGRATED, Sara Attending Unavailable Kurtis, Scott Chi Primary Care Unavailable [place] VICE PRESIDENT INTEGRATED, Sara Attending Unavailable Kurtis, Scott Chi Primary Care Unavailable Oleghe, Efewongbe Attending Unavailable Kurtis, Scott Chi Primary Care Unavailable [place] VICE PRESIDENT INTEGRATED, Sara Attending Unavailable Kurtis, Scott Chi Primary Care Unavailable Oleghe, Efewongbe Attending Unavailable Kurtis, Scott Chi Primary Care Unavailable Oleghe, Efewongbe Attending Unavailable Kurtis, Scott Chi Primary Care Unavailable [place] VICE PRESIDENT INTEGRATED, Sara Attending Unavailable Kurtis, Scott Chi Primary Care Unavailable Kurtis, Scott Chi Primary Care Unavailable [place] VICE PRESIDENT INTEGRATED, Sara Attending Unavailable Donovan VICE PRESIDENT INTEGRATED, Sara Attending Unavailable Kurtis, Scott Chi Referring [...] [LANDON Inhibitors] drug allergy 11-06-19 16 Other [facility] Work Phone: (15 sources) Lisinopril Drug Allergy 03-04-20 21 [facility] (17 sources) Lisinopril Propensity to adverse reactions 11-14-19 24 [facility] (17 sources) sacubitril Drug Allergy 11-14-19 24 [facility] (17 sources) Valsartan Propensity to adverse reactions 11-14-19 24 [facility] (14 sources) Iodinated Contrast Media Propensity to adverse reactions 12-12-19 24 [facility] (10 sources) dapagliflozin Drug Allergy 02-07-20 24 [facility] (10 sources) sacubitril Drug Allergy 02-07-20 cough [facility] (10 sources) Triiodobenzoic Acids Allergy to substance 02-07-20 Hives [facility] Comment on above: hives, red face and itching (10 sources) valsartan Drug Allergy 02-07-20 cough [facility] (1 source) dapagliflozin Drug Allergy 01-14-20 [facility] Repository (1 source) Lisinopril Drug Allergy 01-14-20 [facility] Repository (1 source) sacubitril Drug Allergy 01-14-20 [facility] Repository (1 source) valsartan Drug Allergy 01-14-20 [facility] Repository (1 source) Iodinated Contrast Media Drug allergy (disorder) 01-14-20 [facility] Repository Medications Current Medications Medication [...] tablet by mouth twice daily PANTOPRAZOLE SODIUM [id number] Gerald Barragan MD potassium chloride 20 meq [...] CAPS One tablet by mouth daily CELECOXIB [id number] Mónica Gutierrez PA-C diphenhydrAMINE hydrochloride 25 mg oral tablet (2 sources) Histamine-1 Receptor Antagonist Start: 12-25-2023 End: 12-25-2023 take 50 mg by mouth once 50 mg, Oral, Once, On Mon12/25/23 at 0730, For 1 dose, Preprocedure docusate sodium 50 mg / sennosides, detention 8.6 mg oral tablet (15 sources) Start: [...] Vaughn Start: 12-25-2023 End: 12-26-2023 Start: 07-10-2017 Start: [...] Long-term current use of anticoagulant; Translations: [terminal computer operator (current) use of anticoagulants] 11-22-2023 Episodic Other [...] above: 11/03/[address] Jeyson sánchez @ [facility], and 01/18/2013 per Kahlil Burgess Residual [...] (18 sources) Polypharmacy ; Translations: [Other terminal clerk (current) drug therapy] Onset: 11-21-2023 11-21-2023 Episodic Other aftercare (2 sources) Other correction (current) drug therapy; Translations: [Other correction (current) drug therapy] Onset: 11-21-2023 Episodic Other [...] Facility Cardiology Visit Reporton Cardiology Visit Report [facility] [address] [place], [place] [address] OFFICE VISIT Date of Service: 01/13/25 MR#: [id number] Acct: [id number] Name: BRIANNE CALL Rep #: [id number] : 1940 Provider: ALBINA martins Age/Sex: 84/F Location: [facility] [place] Status: Signed HPI HPI History of Present Illness Details: This is an 84-year-old female who presents to the office today for cardiovascular follow-up visit. She has history of atrial fibrillation, dyslipidemia, nonischemic cardiomyopathy and aortic valve stenosis status post TAVR with valve in valve. She currently lives at [facility]. From a cardiac standpoint, the patient [...] Intake Visit Reasons: PER [facility]/LOW HEART RATES Vascular Ultrasound Technologist Required: No Is patient in pain?: No [...] the past year?: Yes PFSH Medical History (Reviewed 01/13/25 @ 13:05 by Sara Man VICE PRESIDENT INTEGRATED, VICE PRESIDENT INTEGRATED-C) Atrial fibrillation Osteoarthritis Chronic diastolic (congestive) heart [...] pneumonia Pancreatitis Hypertension Gastric ulcer Surgical History (Reviewed 01/13/25 @ 12:45 by Sara Man VICE PRESIDENT INTEGRATED, VICE PRESIDENT INTEGRATED-C) History of cataract removal with insertion of prosthetic lens History of aortic valve replacement History of appendectomy History of hysterectomy History of right and left heart catheterization History of left heart catheterization H/O right heart catheterization Family History (Reviewed 01/13/25 @ 12:45 by Sara Man VICE PRESIDENT INTEGRATED, VICE PRESIDENT INTEGRATED-C) Father negative for CAD suspected ASD or VSD Mother Acute kidney failure Other Arthritis Hypertension Skin cancer Social History jadon (more content not included)... Normal [facility] Absolute lymphocyte countOrd ered By: Joe Sanchez on 12-17-2024 Lymphocytes Auto (Unsp spec) [#/Vol] 1.63 10*3/uL 0.83-4.51 [facility] Absolute neutrophil countOrd ered By: Joe Sanchez on 12-17-2024 Neutrophils (Bld) [#/Vol] 4.7 10*3/uL 2.0-7.7 [facility] Anion gap in Serum or Plasma Ordered By: Joe Sanchez on 12-17-2024 Anion gap [Moles/Vol] 12 mmol/L 5-15 [facility] Automated lymphocyte count a s percentage of total leukocytesOrdered By: Joe Sanchez on 12-17-2024 Lymphocytes/100 WBC Auto (Unsp spec) 22.5 % 19-41 [facility] BUN/creatinine ratioOrdered By: Joe Sanchez on 12-17-2024 Urea nitrogen/Creatinine [Mass ratio] 18.8 mg/mg 10-20 [facility] Basophil percentageOrdered B y: Joe Sanchez on 12-17-2024 Basophils/100 WBC (Bld) 1.1 % High 0-[address] [facility] Carbon dioxide, total [Moles /volume] in Central venous bloodOrdered By: Yudiaudubonlynnette Sanchez on 12-17-2024 CO2 [Moles/Vol] 25.6 mmol/L 21.0-32.0 [facility] Chloride assayOrdered By: Lluvia Sanchez on 12-17-2024 Chloride [Moles/Vol] 102 mmol/L 98-108 [facility] Eosinophil percentageOrdered By: claudioaudubonlynnette Sanchez on 12-17-2024 Eosinophils/100 WBC (Bld) 1.8 % 0-5 [facility] Erythrocyte distribution wid th ratioOrdered By: Yudiaudubonlynnette Sanchez on 12-17-2024 Erythrocyte distribution width (RBC) [Ratio] 14.4 % 11.6-14.6 [facility] Erythrocyte distribution wid th standard deviationOrdered By: claudioaudubonlynnette Sanchez on 12-17-2024 Erythrocyte distribution width (RBC) [Ratio] 52.1 fl High 35.1-43.9 [facility] Glomerular filtration rate ( GFR) estimation/1.73 sq m using serum, plasma, or whole bOrdered By: Joe Sanchez on 12-17-2024 GFR/1.73 sq M.predicted among non-blacks MDRD (S/P/Bld) [Vol rate/Area] 29 mL/min/{1.73_m2} Low >60 [facility] Comment on above: mL/min/1.73m2 CKD-EP I Creatinine Equation (2020) Hematocrit Auto (Bld) [Volum e fraction]Ordered By: Joe Sanchez on 12-17-2024 Hematocrit (Bld) [Volume fraction] 45.2 % 37-47 [facility] Hemoglobin measurementOrdere d By: Joe Sanchez on 12-17-2024 Hemoglobin (Bld) [Mass/Vol] 14.3 g/dL 12.0-15.0 [facility] Immature granulocytes/100 WB C Auto (Bld)Ordered By: montez Sanchez on 12-17-2024 Immature granulocytes/100 WBC (Bld) 0.600 % 0.0-0.9 [facility] Comment on above: IG% - Immature Granu locytes (promyelocytes, myelocytes and metamyelocytes) > 1% indicates that a LEFT SHIFT is Present. MCV (mean corpuscular volume ) determinationOrdered By: Joe Sanchez on 12-17-2024 MCV (RBC) [Entitic vol] 98.0 fL 81-[address] [facility] Mean corpuscular hemoglobin (MCH) determinationOrdered By: Joe Sanchez on 12-17-2024 MCH (RBC) [Entitic mass] 31.0 pg 27.0-32.0 [facility] Mean corpuscular hemoglobin concentration (MCHC) determinationOrdered By: Joe Sanchez on 12-17-2024 MCHC (RBC) [Mass/Vol] 31.6 g/dL Low 32-36 [facility] Mean platelet volume determi nationOrdered By: Joe Sanchez on 12-17-2024 Platelet mean volume (Bld) [Entitic vol] 12.7 fL High 6.2-12.0 [facility] Monocyte percentageOrdered B y: Joe Sanchez on 12-17-2024 Monocytes/100 WBC (Bld) 9.4 % 0-[address] [facility] Neutrophil percentageOrdered By: Joe Sanchez on 12-17-2024 Neutrophils/100 WBC (Bld) 64.6 % 47-70 [facility] Nucleated red blood cell per centageOrdered By: Joe Sanchez on 12-17-2024 Nucleated RBC/100 WBC (Bld) [Ratio] 0 % 0-5 [facility] Platelet countOrdered By: Lluvia Sanchez on 12-17-2024 Platelets (Bld) [#/Vol] 216 10*3/uL 150-450 [facility] Potassium measurement (mass/ volume)Ordered By: Joe Sanchez on 12-17-2024 Potassium (Unsp spec) [Mass/Vol] 4.2 mmol/L 3.3-5.1 [facility] RBC Auto (Bld) [#/Vol]Ordere d By: Joe Sanchez on 12-17-2024 RBC (Bld) [#/Vol] 4.61 10*6/uL 4.2-5.4 [facility] Serum creatinine measurement (mass/volume)Ordered By: Jeo Sanchez on 12-17-2024 Creatinine [Mass/Vol] 1.71 mg/dL High 0.70-1.20 [facility] Serum glucose measurement (m ass/volume)Ordered By: Joe Sanchez on 12-17-2024 Glucose [Mass/Vol] 89 mg/dL 70-99 [facility] Serum or plasma calcium leah urement (mass/volume)Ordered By: Joe Sanchez on 12-17-2024 Calcium [Mass/Vol] 9.4 mg/dL 7.6-11.0 [facility] Serum or plasma urea nitroge n measurement (mass/volume)Ordered By: Joe Sanchez on 12-17-2024 Urea nitrogen [Mass/Vol] 32 mg/dL High 4-19 [facility] Sodium levelOrdered By: Yudi Sanchez on 12-17-2024 Sodium [Moles/Vol] 140 mmol/L 133-145 [facility] White blood cell (WBC) count Ordered By: Joe Sanchez on 12-17-2024 WBC (Bld) [#/Vol] 7.2 10*3/uL 4.4-11.0 [facility] Absolute lymphocyte countOrd ered By: Joe Morrisawaismilton on 11-19-2024 Lymphocytes Auto (Unsp spec) [#/Vol] 1.50 10*3/uL 0.83-4.51 [facility] Absolute neutrophil countOrd ered By: Yudimelissalynnette Morrisawaismilton on 11-19-2024 Neutrophils (Bld) [#/Vol] 4.4 10*3/uL 2.0-7.7 [facility] Anion gap in Serum or Plasma Ordered By: Joe Sanchez on 11-19-2024 Anion gap [Moles/Vol] 11 mmol/L 5-15 [facility] Automated lymphocyte count a s percentage of total leukocytesOrdered By: Joe Sanchez on 11-19-2024 Lymphocytes/100 WBC Auto (Unsp spec) 22.4 % 19-41 [facility] BUN/creatinine ratioOrdered By: Joe Sanchez on 11-19-2024 Urea nitrogen/Creatinine [Mass ratio] 14.0 mg/mg 10-20 [facility] Basophil percentageOrdered B y: Joe Morrisawaismilton on 11-19-2024 Basophils/100 WBC (Bld) 1.0 % 0-1 [facility] Carbon dioxide, total [Moles /volume] in Central venous bloodOrdered By: Joe Sanchez on 11-19-2024 CO2 [Moles/Vol] 25.7 mmol/L 21.0-32.0 [facility] Chloride assayOrdered By: Lluvia Sanchez on 11-19-2024 Chloride [Moles/Vol] 101 mmol/L 98-108 [facility] Eosinophil percentageOrdered By: Joe Morrisawaismilton on 11-19-2024 Eosinophils/100 WBC (Bld) 1.6 % 0-5 [facility] Erythrocyte distribution wid th ratioOrdered By: Joe Sanchez on 11-19-2024 Erythrocyte distribution width (RBC) [Ratio] 13.6 % 11.6-14.6 [facility] Erythrocyte distribution wid th standard deviationOrdered By: Joe Sanchez on 11-19-2024 Erythrocyte distribution width (RBC) [Ratio] 48.4 fl High 35.1-43.9 [facility] Glomerular filtration rate ( GFR) estimation/1.73 sq m using serum, plasma, or whole bOrdered By: Joe Sanchez on 11-19-2024 GFR/1.73 sq M.predicted among non-blacks MDRD (S/P/Bld) [Vol rate/Area] 28 mL/min/{1.73_m2} Low >60 [facility] Comment on above: mL/min/1.73m2 CKD-EP I Creatinine Equation (2020) Hematocrit Auto (Bld) [Volum e fraction]Ordered By: Joe Sanchez on 11-19-2024 Hematocrit (Bld) [Volume fraction] 40.8 % 37-47 [facility] Hemoglobin measurementOrdere d By: Joe Sanchez on 11-19-2024 Hemoglobin (Bld) [Mass/Vol] 13.4 g/dL 12.0-15.0 [facility] Immature granulocytes/100 WB C Auto (Bld)Ordered By: Joe Sanchez on 11-19-2024 Immature granulocytes/100 WBC (Bld) 0.400 % 0.0-0.9 [facility] Comment on above: IG% - Immature Granu locytes (promyelocytes, myelocytes and metamyelocytes) > 1% indicates that a LEFT SHIFT is Present. MCV (mean corpuscular volume ) determinationOrdered By: Joe Sanchez on 11-19-2024 MCV (RBC) [Entitic vol] 96.5 fL 81-[address] [facility] Mean corpuscular hemoglobin (MCH) determinationOrdered By: Joe Sanchez on 11-19-2024 MCH (RBC) [Entitic mass] 31.7 pg 27.0-32.0 [facility] Mean corpuscular hemoglobin concentration (MCHC) determinationOrdered By: Joe Sanchez on 11-19-2024 MCHC (RBC) [Mass/Vol] 32.8 g/dL 32-36 [facility] Mean platelet volume determi nationOrdered By: Joe Sanchez on 11-19-2024 Platelet mean volume (Bld) [Entitic vol] 11.9 fL 6.2-12.0 [facility] Monocyte percentageOrdered B y: Joe Sanchez on 11-19-2024 Monocytes/100 WBC (Bld) 8.7 % 0-[address] [facility] Neutrophil percentageOrdered By: Joe Sanchez on 11-19-2024 Neutrophils/100 WBC (Bld) 65.9 % 47-70 [facility] Nucleated red blood cell per centageOrdered By: Joe Sanchez on 11-19-2024 Nucleated RBC/100 WBC (Bld) [Ratio] 0 % 0-5 [facility] Platelet countOrdered By: Lluvia Sanchez on 11-19-2024 Platelets (Bld) [#/Vol] 230 10*3/uL 150-450 [facility] Potassium measurement (mass/ volume)Ordered By: Joe Sanchez on 11-19-2024 Potassium (Unsp spec) [Mass/Vol] 4.4 mmol/L 3.3-5.1 [facility] Comment on above: Hemolysis present, R esults could be affected. RBC Auto (Bld) [#/Vol]Ordere d By: Joe Sanchez on 11-19-2024 RBC (Bld) [#/Vol] 4.23 10*6/uL 4.2-5.4 [facility] Serum creatinine measurement (mass/volume)Ordered By: Joe Sanchez on 11-19-2024 Creatinine [Mass/Vol] 1.77 mg/dL High 0.70-1.20 [facility] Serum glucose measurement (m ass/volume)Ordered By: Joe Sanchez on 11-19-2024 Glucose [Mass/Vol] 99 mg/dL 70-99 [facility] Serum or plasma calcium leah urement (mass/volume)Ordered By: Joe Sanchez on 11-19-2024 Calcium [Mass/Vol] 9.2 mg/dL 7.6-11.0 [facility] Serum or plasma urea nitroge n measurement (mass/volume)Ordered By: Joe Sanchez on 11-19-2024 Urea nitrogen [Mass/Vol] 25 mg/dL High 4-19 [facility] Sodium levelOrdered By: Yudi Sanchez on 11-19-2024 Sodium [Moles/Vol] 138 mmol/L 133-145 [facility] White blood cell (WBC) count Ordered By: Joe Sanchez on 11-19-2024 WBC (Bld) [#/Vol] 6.7 10*3/uL 4.4-11.0 [facility] Absolute lymphocyte countOrd ered By: Lluviaclaudiokayleigh Arturohans on 10-22-2024 Lymphocytes Auto (Unsp spec) [#/Vol] 1.30 10*3/uL 0.83-4.51 [facility] Absolute neutrophil countOrd ered By: Joe Sanchez on 10-22-2024 Neutrophils (Bld) [#/Vol] 4.4 10*3/uL 2.0-7.7 [facility] Anion gap in Serum or Plasma Ordered By: Lluviaclaudiokayleigh Arturoawaismilton on 10-22-2024 Anion gap [Moles/Vol] 12 mmol/L 5-15 [facility] Automated lymphocyte count a s percentage of total leukocytesOrdered By: Joe Arturoawaismilton on 10-22-2024 Lymphocytes/100 WBC Auto (Unsp spec) 19.9 % 19-41 [facility] BUN/creatinine ratioOrdered By: Lluviaclaudiokayleigh Arturohans on 10-22-2024 Urea nitrogen/Creatinine [Mass ratio] 17.5 mg/mg 10-20 [facility] Basophil percentageOrdered B y: Joe Arturoawaismilton on 10-22-2024 Basophils/100 WBC (Bld) 0.9 % 0-[address] [facility] Carbon dioxide, total [Moles /volume] in Central venous bloodOrdered By: Lluviaclaudiomelissalynnette Morrisawaismilton on 10-22-2024 CO2 [Moles/Vol] 26.4 mmol/L 21.0-32.0 [facility] Chloride assayOrdered By: Lluvia claudiokayleigh Morrisawaismilton on 10-22-2024 Chloride [Moles/Vol] 99 mmol/L 98-108 [facility] Eosinophil percentageOrdered By: Joe Morrisawaismilton on 10-22-2024 Eosinophils/100 WBC (Bld) 2.3 % 0-5 [facility] Erythrocyte distribution wid th ratioOrdered By: Joe Sanchez on 10-22-2024 Erythrocyte distribution width (RBC) [Ratio] 13.5 % 11.6-14.6 [facility] Erythrocyte distribution wid th standard deviationOrdered By: Joe Sanchez on 10-22-2024 Erythrocyte distribution width (RBC) [Ratio] 49.2 fl High 35.1-43.9 [facility] Glomerular filtration rate ( GFR) estimation/1.73 sq m using serum, plasma, or whole bOrdered By: Joe Sanchez on 10-22-2024 GFR/1.73 sq M.predicted among non-blacks MDRD (S/P/Bld) [Vol rate/Area] 28 mL/min/{1.73_m2} Low >60 [facility] Comment on above: mL/min/1.73m2 CKD-EP I Creatinine Equation (2020) Hematocrit Auto (Bld) [Volum e fraction]Ordered By: Joe Sanchez on 10-22-2024 Hematocrit (Bld) [Volume fraction] 40.3 % 37-47 [facility] Hemoglobin measurementOrdere d By: Joe Sanchez on 10-22-2024 Hemoglobin (Bld) [Mass/Vol] 13.1 g/dL 12.0-15.0 [facility] Immature granulocytes/100 WB C Auto (Bld)Ordered By: Joe Sanchez on 10-22-2024 Immature granulocytes/100 WBC (Bld) 0.600 % 0.0-0.9 [facility] Comment on above: IG% - Immature Granu locytes (promyelocytes, myelocytes and metamyelocytes) > 1% indicates that a LEFT SHIFT is Present. MCV (mean corpuscular volume ) determinationOrdered By: Joe Sanchez on 10-22-2024 MCV (RBC) [Entitic vol] 98.1 fL 81-[address] [facility] Mean corpuscular hemoglobin (MCH) determinationOrdered By: Joe Sanchez 10-22-2024 MCH (RBC) [Entitic mass] 31.9 pg 27.0-32.0 [facility] Mean corpuscular hemoglobin concentration (MCHC) determinationOrdered By: Joe Sanchez on 10-22-2024 MCHC (RBC) [Mass/Vol] 32.5 g/dL 32-36 [facility] Mean platelet volume determi nationOrdered By: Joe Sanchez on 10-22-2024 Platelet mean volume (Bld) [Entitic vol] 12.5 fL High 6.2-12.0 [facility] Monocyte percentageOrdered B y: Joe Sanchez on 10-22-2024 Monocytes/100 WBC (Bld) 9.0 % 0-[address] [facility] Neutrophil percentageOrdered By: Joe Sanchez on 10-22-2024 Neutrophils/100 WBC (Bld) 67.3 % 47-70 [facility] Nucleated red blood cell per centageOrdered By: Joe Sanchez on 10-22-2024 Nucleated RBC/100 WBC (Bld) [Ratio] 0 % 0-5 [facility] Platelet countOrdered By: Lluvia Sanchez on 10-22-2024 Platelets (Bld) [#/Vol] 222 10*3/uL 150-450 [facility] Potassium measurement (mass/ volume)Ordered By: Joe Sanchez on 10-22-2024 Potassium (Unsp spec) [Mass/Vol] 4.0 mmol/L 3.3-5.1 [facility] Comment on above: Hemolysis present, R esults could be affected. RBC Auto (Bld) [#/Vol]Ordere d By: Joe Sanchez on 10-22-2024 RBC (Bld) [#/Vol] 4.11 10*6/uL Low 4.2-5.4 [facility] Serum creatinine measurement (mass/volume)Ordered By: Joe Sanchez on 10-22-2024 Creatinine [Mass/Vol] 1.80 mg/dL High 0.70-1.20 [facility] Serum glucose measurement (m ass/volume)Ordered By: Joe Sanchez on 10-22-2024 Glucose [Mass/Vol] 113 mg/dL High 70-99 [facility] Serum or plasma calcium leah urement (mass/volume)Ordered By: Joe Sanchez on 10-22-2024 Calcium [Mass/Vol] 9.2 mg/dL 7.6-11.0 [facility] Serum or plasma urea nitroge n measurement (mass/volume)Ordered By: Joe Sanchez on 10-22-2024 Urea nitrogen [Mass/Vol] 32 mg/dL High 4-19 [facility] Sodium levelOrdered By: Yudi Sanchez on 10-22-2024 Sodium [Moles/Vol] 138 mmol/L 133-145 [facility] White blood cell (WBC) count Ordered By: Joe Sanchez on 10-22-2024 WBC (Bld) [#/Vol] 6.5 10*3/uL 4.4-11.0 [facility] Bilirubin directOrdered By: Joe Sanchez on 10-07-2024 Bilirubin.direct [Mass/Vol] 0.35 mg/dL High 0.00-0.30 [facility] Bilirubin, totalOrdered By: Joe Sanchez on 10-07-2024 Bilirubin [Mass/Vol] 0.93 mg/dL 0.00-1.30 [facility] Calculated very low density lipoprotein (VLDL) cholesterol measurementOrdered By: Joe Sanchez on 10-07-2024 Calculated very low density lipoprotein (VLDL) cholesterol measurement 18 mg/dL 5-40 [facility] Hemoglobin A1c percentageOrd ered By: Joe Sanchez on 10-07-2024 HbA1c (Bld) [Mass fraction] 5.4 % <5.7 [facility] Comment on above: Normal < 5.7 % Predi abetic 5.7 - 6.4 % Diabetic >or= 6.5 % Please note range changes. LDL calc ser/plasOrdered By: Joe Sanchez on 10-07-2024 Cholesterol in LDL [Mass/Vol] 54 mg/dL [facility] Comment on above: Qvwigbmxrq=716-675 m g/dL & Higher Gnwy=710 mg/dL or greater Laboratory - Chemistry and C hemistry - challengeOrdered By: Joe Sanchez on 10-07-2024 AST [Catalytic activity/Vol] 21 U/L <32 [facility] Screening total cholesterol/ high density lipoprotein (HDL) cholesterol ratioOrdered By: Joe Sanchez on 10-07-2024 Cholesterol.total/Shannon sterol in HDL [Mass ratio] 2.90 {ratio} [facility] Serum globulin measurementOr dered By: Joe Sanchez on 10-07-2024 Globulin (S) [Mass/Vol] 3.2 g/dL 2.2-4.[address] [facility] Serum or plasma alanine kilpatrick otransferase (ALT) measurementOrdered By: Joe Sanchez on 10-07-2024 ALT [Catalytic activity/Vol] U/L <35 [facility] Serum or plasma albumin leah urement (mass/volume)Ordered By: Joe Sanchez 10-07-2024 Albumin [Mass/Vol] 3.3 g/dL Low 3.4-4.8 [facility] Serum or plasma alkaline kirti sphatase measurementOrdered By: Joe Sanchez 10-07-2024 ALP [Catalytic activity/Vol] 64 U/L 35-104 [facility] Serum or plasma cholesterol in HDL measurement (mass/volume)Ordered By: Joe Sanchez 10-07-2024 Cholesterol in HDL [Mass/Vol] 38 mg/dL Low >40 [facility] Comment on above: National Cholesterol Education Program (NCEP) guidelines:<40 mg/dL: Low HDL-cholesterol (major risk factor for CHD)>= 60 mg/dL: High HDL-cholesterol (negative risk factor for CHD)HDL-cholesterol is affected by a number of factors, e.g. smoking, exercise, hormones, sex and age. Serum or plasma cholesterol measurement (mass/volume)Ordered By: Joe Sanchez on 10-07-2024 Cholesterol [Mass/Vol] 111 mg/dL <201 [facility] Comment on above: Cholesterol level, D esirable <200 mg/dLBorderline high cholesterol 200-239 mg/dLHigh cholesterol >=240 mg/dLRecommendations of the NCEP Adult Treatment Panel for the following risk-cutoff thresholds for the [place] population. Total proteinOrdered By: Constantin Sanchez on 10-07-2024 Protein [Mass/Vol] 6.5 g/dL 5.9-8.4 [facility] Triglycerides measurementOrd ered By: Joe Sanchez on 10-07-2024 Triglyceride [Mass/Vol] 92 mg/dL <[address] [facility] Comment on above: The drugs N-Acetylcy steine and Metamizole may falsely depress this assay. Normal range: <150 mg/dLBorderline High: 150-199 mg/dLHigh: 200-499 mg/dLVery High: >500 mg/dL Absolute lymphocyte countOrd ered By: Joe Sanchez on 09-24-2024 Lymphocytes Auto (Unsp spec) [#/Vol] 1.76 10*3/uL 0.83-4.51 [facility] Absolute neutrophil countOrd ered By: Joe Sanchez on 09-24-2024 Neutrophils (Bld) [#/Vol] 4.6 10*3/uL 2.0-7.7 [facility] Anion gap in Serum or Plasma Ordered By: Joe Sanchez on 09-24-2024 Anion gap [Moles/Vol] 13 mmol/L 5-15 [facility] Automated lymphocyte count a s percentage of total leukocytesOrdered By: Joe Sanchez on 09-24-2024 Lymphocytes/100 WBC Auto (Unsp spec) 23.7 % 19-41 [facility] BUN/creatinine ratioOrdered By: Joe Sanchez on 09-24-2024 Urea nitrogen/Creatinine [Mass ratio] 15.6 mg/mg 10-20 [facility] Basophil percentageOrdered B y: Joe Sanchez on 09-24-2024 Basophils/100 WBC (Bld) 1.3 % High 0-[address] [facility] Carbon dioxide, total [Moles /volume] in Central venous bloodOrdered By: Joe Sanchez on 09-24-2024 CO2 [Moles/Vol] 26.0 mmol/L 21.0-32.0 [facility] Chloride assayOrdered By: Lluvia Sanchez on 09-24-2024 Chloride [Moles/Vol] 99 mmol/L 98-108 [facility] Eosinophil percentageOrdered By: Joe Sanchez on 09-24-2024 Eosinophils/100 WBC (Bld) 1.7 % 0-5 [facility] Erythrocyte distribution wid th ratioOrdered By: Joe Sanchez on 09-24-2024 Erythrocyte distribution width (RBC) [Ratio] 13.6 % 11.6-14.6 [facility] Erythrocyte distribution wid th standard deviationOrdered By: Joe Sanchez on 09-24-2024 Erythrocyte distribution width (RBC) [Ratio] 48.6 fl High 35.1-43.9 [facility] Glomerular filtration rate ( GFR) estimation/1.73 sq m using serum, plasma, or whole bOrdered By: Yudiaudubonlynnette Sanchez on 09-24-2024 GFR/1.73 sq M.predicted among non-blacks MDRD (S/P/Bld) [Vol rate/Area] 28 mL/min/{1.73_m2} Low >60 [facility] Comment on above: mL/min/1.73m2 CKD-EP I Creatinine Equation (2020) Hematocrit Auto (Bld) [Volum e fraction]Ordered By: Joe Sanchez on 09-24-2024 Hematocrit (Bld) [Volume fraction] 42.5 % 37-47 [facility] Hemoglobin measurementOrdere d By: Joe Sanchez on 09-24-2024 Hemoglobin (Bld) [Mass/Vol] 14.1 g/dL 12.0-15.0 [facility] Immature granulocytes/100 WB C Auto (Bld)Ordered By: Joe Sanchez 09-24-2024 Immature granulocytes/100 WBC (Bld) 0.700 % 0.0-0.9 [facility] Comment on above: IG% - Immature Granu locytes (promyelocytes, myelocytes and metamyelocytes) > 1% indicates that a LEFT SHIFT is Present. MCV (mean corpuscular volume ) determinationOrdered By: Joe Sanchez on 09-24-2024 MCV (RBC) [Entitic vol] 97.5 fL 81-[address] [facility] Mean corpuscular hemoglobin (MCH) determinationOrdered By: Joe Sanchez 09-24-2024 MCH (RBC) [Entitic mass] 32.3 pg High 27.0-32.0 [facility] Mean corpuscular hemoglobin concentration (MCHC) determinationOrdered By: Joe Sanchez on 09-24-2024 MCHC (RBC) [Mass/Vol] 33.2 g/dL 32-36 [facility] Mean platelet volume determi nationOrdered By: Joe Sanchez on 09-24-2024 Platelet mean volume (Bld) [Entitic vol] 12.3 fL High 6.2-12.0 [facility] Monocyte percentageOrdered B y: Joe Sanchez on 09-24-2024 Monocytes/100 WBC (Bld) 10.8 % High 0-[address] [facility] Neutrophil percentageOrdered By: Joe aSnchez on 09-24-2024 Neutrophils/100 WBC (Bld) 61.8 % 47-70 [facility] Nucleated red blood cell per centageOrdered By: Joe Sanchez on 09-24-2024 Nucleated RBC/100 WBC (Bld) [Ratio] 0 % 0-5 [facility] Platelet countOrdered By: Lluvia genelynnette Sanchez on 09-24-2024 Platelets (Bld) [#/Vol] 204 10*3/uL 150-450 [facility] Potassium measurement (mass/ volume)Ordered By: Joe Sanchez on 09-24-2024 Potassium (Unsp spec) [Mass/Vol] 4.3 mmol/L 3.3-5.1 [facility] Comment on above: Hemolysis present, R esults could be affected. RBC Auto (Bld) [#/Vol]Ordere d By: Joe Sanchez on 09-24-2024 RBC (Bld) [#/Vol] 4.36 10*6/uL 4.2-5.4 [facility] Serum creatinine measurement (mass/volume)Ordered By: Joe Sanchez on 09-24-2024 Creatinine [Mass/Vol] 1.76 mg/dL High 0.70-1.20 [facility] Serum glucose measurement (m ass/volume)Ordered By: Joe Sanchez on 09-24-2024 Glucose [Mass/Vol] 86 mg/dL 70-99 [facility] Serum or plasma calcium leah urement (mass/volume)Ordered By: Joe Chuamilton on 09-24-2024 Calcium [Mass/Vol] 9.6 mg/dL 7.6-11.0 [facility] Serum or plasma urea nitroge n measurement (mass/volume)Ordered By: Joe Chaumilton on 09-24-2024 Urea nitrogen [Mass/Vol] 28 mg/dL High 4-19 [facility] Sodium levelOrdered By: Yudi Chaumilton on 09-24-2024 Sodium [Moles/Vol] 139 mmol/L 133-145 [facility] White blood cell (WBC) count Ordered By: Joe Arturoawaismilton on 09-24-2024 WBC (Bld) [#/Vol] 7.4 10*3/uL 4.4-11.0 [facility] Absolute lymphocyte countOrd ered By: Joe Arturoawaismilton on 08-27-2024 Lymphocytes Auto (Unsp spec) [#/Vol] 1.87 10*3/uL 0.83-4.51 [facility] Absolute neutrophil countOrd ered By: Joe Sanchez on 08-27-2024 Neutrophils (Bld) [#/Vol] 4.2 10*3/uL 2.0-7.7 [facility] Anion gap in Serum or Plasma Ordered By: Joe Arturoawaismilton on 08-27-2024 Anion gap [Moles/Vol] 12 mmol/L 5-15 [facility] Automated lymphocyte count a s percentage of total leukocytesOrdered By: Lluviaclaudiomelissalynnette Morrisawaismilton on 08-27-2024 Lymphocytes/100 WBC Auto (Unsp spec) 27.1 % 19-41 [facility] BUN/creatinine ratioOrdered By: Joe Arturoawaismilton on 08-27-2024 Urea nitrogen/Creatinine [Mass ratio] 15.0 mg/mg 10-20 [facility] Basophil percentageOrdered B y: Joaquinlynnette Morrisawaismilton on 08-27-2024 Basophils/100 WBC (Bld) 1.0 % 0-[address] [facility] Carbon dioxide, total [Moles /volume] in Central venous bloodOrdered By: Joe Sanchez on 08-27-2024 CO2 [Moles/Vol] 27.3 mmol/L 21.0-32.0 [facility] Chloride assayOrdered By: Lluvia Sanchez on 08-27-2024 Chloride [Moles/Vol] 99 mmol/L 98-108 [facility] Eosinophil percentageOrdered By: montez Sanchez on 08-27-2024 Eosinophils/100 WBC (Bld) 2.0 % 0-5 [facility] Erythrocyte distribution wid th ratioOrdered By: [facility] Hospitallynentte Sanchez on 08-27-2024 Erythrocyte distribution width (RBC) [Ratio] 13.7 % 11.6-14.6 [facility] Erythrocyte distribution wid th standard deviationOrdered By: [facility] Hospitallynnette Sanchez on 08-27-2024 Erythrocyte distribution width (RBC) [Ratio] 49.1 fl High 35.1-43.9 [facility] Glomerular filtration rate ( GFR) estimation/1.73 sq m using serum, plasma, or whole bOrdered By: Joe Sanchez on 08-27-2024 GFR/1.73 sq M.predicted among non-blacks MDRD (S/P/Bld) [Vol rate/Area] 29 mL/min/{1.73_m2} Low >60 [facility] Comment on above: mL/min/1.73m2 CKD-EP I Creatinine Equation (2020) Hematocrit Auto (Bld) [Volum e fraction]Ordered By: montez Sanchez on 08-27-2024 Hematocrit (Bld) [Volume fraction] 42.3 % 37-47 [facility] Hemoglobin measurementOrdere d By: montez Sanchez on 08-27-2024 Hemoglobin (Bld) [Mass/Vol] 13.8 g/dL 12.0-15.0 [facility] Immature granulocytes/100 WB C Auto (Bld)Ordered By: Joe Sanchez on 08-27-2024 Immature granulocytes/100 WBC (Bld) 0.400 % 0.0-0.9 [facility] Comment on above: IG% - Immature Granu locytes (promyelocytes, myelocytes and metamyelocytes) > 1% indicates that a LEFT SHIFT is Present. MCV (mean corpuscular volume ) determinationOrdered By: Joe Sanchez on 08-27-2024 MCV (RBC) [Entitic vol] 96.8 fL 81-[address] [facility] Mean corpuscular hemoglobin (MCH) determinationOrdered By: Joe Sanchez on 08-27-2024 MCH (RBC) [Entitic mass] 31.6 pg 27.0-32.0 [facility] Mean corpuscular hemoglobin concentration (MCHC) determinationOrdered By: Joe Sanchez on 08-27-2024 MCHC (RBC) [Mass/Vol] 32.6 g/dL 32-36 [facility] Mean platelet volume determi nationOrdered By: Joe Sanchez on 08-27-2024 Platelet mean volume (Bld) [Entitic vol] 12.5 fL High 6.2-12.0 [facility] Monocyte percentageOrdered B y: Joe Sanchez on 08-27-2024 Monocytes/100 WBC (Bld) 9.4 % 0-[address] [facility] Neutrophil percentageOrdered By: Joe Sanchez on 08-27-2024 Neutrophils/100 WBC (Bld) 60.1 % 47-70 [facility] Nucleated red blood cell per centageOrdered By: Joe Sanchez on 08-27-2024 Nucleated RBC/100 WBC (Bld) [Ratio] 0 % 0-5 [facility] Platelet countOrdered By: Lluvia claudiokayleigh Sanchez on 08-27-2024 Platelets (Bld) [#/Vol] 196 10*3/uL 150-450 [facility] Potassium measurement (mass/ volume)Ordered By: Joe Sanchez on 08-27-2024 Potassium (Unsp spec) [Mass/Vol] 4.1 mmol/L 3.3-5.1 [facility] RBC Auto (Bld) [#/Vol]Ordere d By: Joe Sanchez on 08-27-2024 RBC (Bld) [#/Vol] 4.37 10*6/uL 4.2-5.4 [facility] Serum creatinine measurement (mass/volume)Ordered By: Joe Sanchez on 08-27-2024 Creatinine [Mass/Vol] 1.74 mg/dL High 0.70-1.20 [facility] Serum glucose measurement (m ass/volume)Ordered By: Joe Sanchez on 08-27-2024 Glucose [Mass/Vol] 103 mg/dL High 70-99 [facility] Serum or plasma calcium leah urement (mass/volume)Ordered By: Joe Sanchez on 08-27-2024 Calcium [Mass/Vol] 9.5 mg/dL 7.6-11.0 [facility] Serum or plasma urea nitroge n measurement (mass/volume)Ordered By: Joe Sanchez on 08-27-2024 Urea nitrogen [Mass/Vol] 26 mg/dL High 4-19 [facility] Sodium levelOrdered By: Yudi Sanchez on 08-27-2024 Sodium [Moles/Vol] 138 mmol/L 133-145 [facility] White blood cell (WBC) count Ordered By: Joe Sanchez on 08-27-2024 WBC (Bld) [#/Vol] 6.9 10*3/uL 4.4-11.0 [facility] Absolute lymphocyte countOrd ered By: Joe Sanchez on 07-30-2024 Lymphocytes Auto (Unsp spec) [#/Vol] 1.85 10*3/uL 0.83-4.51 [facility] Absolute neutrophil countOrd ered By: Joe Sanchez on 07-30-2024 Neutrophils (Bld) [#/Vol] 3.8 10*3/uL 2.0-7.7 [facility] Anion gap in Serum or Plasma Ordered By: Joe Sanchez on 07-30-2024 Anion gap [Moles/Vol] 12 mmol/L 5-15 [facility] Automated lymphocyte count a s percentage of total leukocytesOrdered By: Joe Sanchez on 07-30-2024 Lymphocytes/100 WBC Auto (Unsp spec) 28.5 % 19-41 [facility] BUN/creatinine ratioOrdered By: Joe Sanchez on 07-30-2024 Urea nitrogen/Creatinine [Mass ratio] 14.9 mg/mg 10-20 [facility] Basophil percentageOrdered B y: Joe Sanchez on 07-30-2024 Basophils/100 WBC (Bld) 1.1 % High 0-[address] [facility] Carbon dioxide, total [Moles /volume] in Central venous bloodOrdered By: Joe Arturohnas on 07-30-2024 CO2 [Moles/Vol] 26.5 mmol/L 21.0-32.0 [facility] Chloride assayOrdered By: Lluvia montez Arturoawaismilton on 07-30-2024 Chloride [Moles/Vol] 100 mmol/L 98-108 [facility] Eosinophil percentageOrdered By: Joe Sanchez on 07-30-2024 Eosinophils/100 WBC (Bld) 1.8 % 0-5 [facility] Erythrocyte distribution wid th ratioOrdered By: claudioaudubonlynnette Arturohans on 07-30-2024 Erythrocyte distribution width (RBC) [Ratio] 14.2 % 11.6-14.6 [facility] Erythrocyte distribution wid th standard deviationOrdered By: claudioaudubonlynnette Sanchez on 07-30-2024 Erythrocyte distribution width (RBC) [Ratio] 52.9 fl High 35.1-43.9 [facility] Glomerular filtration rate ( GFR) estimation/1.73 sq m using serum, plasma, or whole bOrdered By: Joe Sanchez on 07-30-2024 GFR/1.73 sq M.predicted among non-blacks MDRD (S/P/Bld) [Vol rate/Area] 26 mL/min/{1.73_m2} Low >60 [facility] Comment on above: mL/min/1.73m2 CKD-EP I Creatinine Equation (2020) Hematocrit Auto (Bld) [Volum e fraction]Ordered By: Lluviaclaudiomelissalynnette Sanchez on 07-30-2024 Hematocrit (Bld) [Volume fraction] 41.4 % 37-47 [facility] Hemoglobin measurementOrdere d By: Lluviaclaudiokayleigh Arturoawaismilton on 07-30-2024 Hemoglobin (Bld) [Mass/Vol] 13.5 g/dL 12.0-15.0 [facility] Immature granulocytes/100 WB C Auto (Bld)Ordered By: Joe Sanchez on 07-30-2024 Immature granulocytes/100 WBC (Bld) 0.800 % 0.0-0.9 [facility] Comment on above: IG% - Immature Granu locytes (promyelocytes, myelocytes and metamyelocytes) > 1% indicates that a LEFT SHIFT is Present. MCV (mean corpuscular volume ) determinationOrdered By: Joe Sanchez on 07-30-2024 MCV (RBC) [Entitic vol] 102.7 fL High 81-[address] [facility] Mean corpuscular hemoglobin (MCH) determinationOrdered By: Joe Sanchez on 07-30-2024 MCH (RBC) [Entitic mass] 33.5 pg High 27.0-32.0 [facility] Mean corpuscular hemoglobin concentration (MCHC) determinationOrdered By: Joe Sanchez on 07-30-2024 MCHC (RBC) [Mass/Vol] 32.6 g/dL 32-36 [facility] Mean platelet volume determi nationOrdered By: Joe Sanchez on 07-30-2024 Platelet mean volume (Bld) [Entitic vol] 11.8 fL 6.2-12.0 [facility] Monocyte percentageOrdered B y: Joe Sanchez on 07-30-2024 Monocytes/100 WBC (Bld) 9.2 % 0-[address] [facility] Neutrophil percentageOrdered By: Joe Sanchez on 07-30-2024 Neutrophils/100 WBC (Bld) 58.6 % 47-70 [facility] Nucleated red blood cell per centageOrdered By: Joe Sanchez on 07-30-2024 Nucleated RBC/100 WBC (Bld) [Ratio] 0 % 0-5 [facility] Platelet countOrdered By: Lluvia Sanchez on 07-30-2024 Platelets (Bld) [#/Vol] 167 10*3/uL 150-450 [facility] Potassium measurement (mass/ volume)Ordered By: Joe Sanchez on 07-30-2024 Potassium (Unsp spec) [Mass/Vol] 4.3 mmol/L 3.3-5.1 [facility] Comment on above: Hemolysis present, R esults could be affected. RBC Auto (Bld) [#/Vol]Ordere d By: Joe Sanchez on 07-30-2024 RBC (Bld) [#/Vol] 4.03 10*6/uL Low 4.2-5.4 [facility] Serum creatinine measurement (mass/volume)Ordered By: Joe Sanchez on 07-30-2024 Creatinine [Mass/Vol] 1.87 mg/dL High 0.70-1.20 [facility] Serum glucose measurement (m ass/volume)Ordered By: Joe Sanchez on 07-30-2024 Glucose [Mass/Vol] 89 mg/dL 70-99 [facility] Serum or plasma calcium leah urement (mass/volume)Ordered By: Joe Sanchez on 07-30-2024 Calcium [Mass/Vol] 9.4 mg/dL 7.6-11.0 [facility] Serum or plasma urea nitroge n measurement (mass/volume)Ordered By: Joe Sanchez on 07-30-2024 Urea nitrogen [Mass/Vol] 28 mg/dL High 4-19 [facility] Sodium levelOrdered By: Yudi Sanchez on 07-30-2024 Sodium [Moles/Vol] 138 mmol/L 133-145 [facility] White blood cell (WBC) count Ordered By: Joe Sanchez on 07-30-2024 WBC (Bld) [#/Vol] 6.5 10*3/uL 4.4-11.0 [facility] Bilirubin directOrdered By: Joe Sanchez on 07-15-2024 Bilirubin.direct [Mass/Vol] 0.26 mg/dL 0.00-0.30 [facility] Bilirubin, totalOrdered By: Joe Sanchez on 07-15-2024 Bilirubin [Mass/Vol] 0.62 mg/dL 0.00-1.30 [facility] Calculated very low density lipoprotein (VLDL) cholesterol measurementOrdered By: Joe Sanchez on 07-15-2024 Calculated very low density lipoprotein (VLDL) cholesterol measurement 20 mg/dL 5-40 [facility] Hemoglobin A1c percentageOrd ered By: Joe Sanchez on 07-15-2024 HbA1c (Bld) [Mass fraction] 5.5 % <5.7 [facility] Comment on above: Normal < 5.7 % Predi abetic 5.7 - 6.4 % Diabetic >or= 6.5 % Please note range changes. LDL calc ser/plasOrdered By: Joe Sanchez on 07-15-2024 Cholesterol in LDL [Mass/Vol] 86 mg/dL [facility] Comment on above: Sqldlufbqy=733-910 m g/dL & Higher [place]=139 mg/dL or greater Laboratory - Chemistry and C hemistry - challengeOrdered By: Joe Sanchez on 07-15-2024 AST [Catalytic activity/Vol] 19 U/L <32 [facility] Screening total cholesterol/ high density lipoprotein (HDL) cholesterol ratioOrdered By: Joe Sanchez on 07-15-2024 Cholesterol.total/Shannon sterol in HDL [Mass ratio] 3.91 {ratio} [facility] Serum globulin measurementOr dered By: Joe Sanchez on 07-15-2024 Globulin (S) [Mass/Vol] 3.2 g/dL 2.2-4.2 [facility] Serum or plasma alanine kilpatrick otransferase (ALT) measurementOrdered By: Joe Sanchez on 07-15-2024 ALT [Catalytic activity/Vol] 7 U/L <35 [facility] Serum or plasma albumin leah urement (mass/volume)Ordered By: Joe Sanchez on 07-15-2024 Albumin [Mass/Vol] 3.4 g/dL 3.4-4.8 [facility] Serum or plasma alkaline kirti sphatase measurementOrdered By: Joe Sanchez 07-15-2024 ALP [Catalytic activity/Vol] 67 U/L 35-104 [facility] Serum or plasma cholesterol in HDL measurement (mass/volume)Ordered By: Joe Sanchez on 07-15-2024 Cholesterol in HDL [Mass/Vol] 36 mg/dL Low >40 [facility] Comment on above: National Cholesterol Education Program (NCEP) guidelines:<40 mg/dL: Low HDL-cholesterol (major risk factor for CHD)>= 60 mg/dL: High HDL-cholesterol (negative risk factor for CHD)HDL-cholesterol is affected by a number of factors, e.g. smoking, exercise, hormones, sex and age. Serum or plasma cholesterol measurement (mass/volume)Ordered By: Joe Sanchez on 07-15-2024 Cholesterol [Mass/Vol] 142 mg/dL <201 [facility] Comment on above: Cholesterol level, D esirable <200 mg/dLBorderline high cholesterol 200-239 mg/dLHigh cholesterol >=240 mg/dLRecommendations of the NCEP Adult Treatment Panel for the following risk-cutoff thresholds for the [place] population. Total proteinOrdered By: Constantin Sanchez on 07-15-2024 Protein [Mass/Vol] 6.7 g/dL 5.9-8.4 [facility] Triglycerides measurementOrd ered By: Joe Sanchez on 07-15-2024 Triglyceride [Mass/Vol] 101 mg/dL <[address] [facility] Comment on above: The drugs N-Acetylcy steine and Metamizole may falsely depress this assay. Normal range: <150 mg/dLBorderline High: 150-199 mg/dLHigh: 200-499 mg/dLVery High: >500 mg/dL Absolute lymphocyte countOrd ered By: Joe Sanchez on 07-02-2024 Lymphocytes Auto (Unsp spec) [#/Vol] 1.69 10*3/uL 0.83-4.51 [facility] Absolute neutrophil countOrd ered By: Joe Sanchez on 07-02-2024 Neutrophils (Bld) [#/Vol] 4.5 10*3/uL 2.0-7.7 [facility] Anion gap in Serum or Plasma Ordered By: Joe Sanchez on 07-02-2024 Anion gap [Moles/Vol] 13 mmol/L - [facility] Automated lymphocyte count a s percentage of total leukocytesOrdered By: Joe Sanchez on 07-02-2024 Lymphocytes/100 WBC Auto (Unsp spec) 23.8 % 19-41 [facility] BUN/creatinine ratioOrdered By: Joe Sanchez on 07-02-2024 Urea nitrogen/Creatinine [Mass ratio] 16.6 mg/mg 10-20 [facility] Basophil percentageOrdered B y: Joe Sanchez on 07-02-2024 Basophils/100 WBC (Bld) 1.0 % 0-1 [facility] [facility] Carbon dioxide, total [Moles /volume] in Central venous bloodOrdered By: Joe Sanchez on 07-02-2024 CO2 [Moles/Vol] 26.0 mmol/L 21.0-32.0 [facility] Chloride assayOrdered By: Lluvia Sanchez on 07-02-2024 Chloride [Moles/Vol] 99 mmol/L 98-108 [facility] Eosinophil percentageOrdered By: claudioaudubonlynnette Sanchez on 07-02-2024 Eosinophils/100 WBC (Bld) 1.7 % 0-5 [facility] Erythrocyte distribution wid th ratioOrdered By: Joe Sanchez on 07-02-2024 Erythrocyte distribution width (RBC) [Ratio] 13.5 % 11.6-14.6 [facility] Erythrocyte distribution wid th standard deviationOrdered By: Joe Sanchez on 07-02-2024 Erythrocyte distribution width (RBC) [Ratio] 47.8 fl High 35.1-43.9 [facility] Glomerular filtration rate ( GFR) estimation/1.73 sq m using serum, plasma, or whole bOrdered By: Joe Sanchez on 07-02-2024 GFR/1.73 sq M.predicted among non-blacks MDRD (S/P/Bld) [Vol rate/Area] 28 mL/min/{1.73_m2} Low >60 [facility] Comment on above: mL/min/1.73m2 CKD-EP I Creatinine Equation (2020) Hematocrit Auto (Bld) [Volum e fraction]Ordered By: Joe Sanchez on 07-02-2024 Hematocrit (Bld) [Volume fraction] 41.2 % 37-47 [facility] Hemoglobin measurementOrdere d By: Joe Sanchez on 07-02-2024 Hemoglobin (Bld) [Mass/Vol] 13.8 g/dL 12.0-15.0 [facility] Immature granulocytes/100 WB C Auto (Bld)Ordered By: Yudimelissalynnette Morrisawaismilton on 07-02-2024 Immature granulocytes/100 WBC (Bld) 0.600 % 0.0-0.9 [facility] Comment on above: IG% - Immature Granu locytes (promyelocytes, myelocytes and metamyelocytes) > 1% indicates that a LEFT SHIFT is Present. MCV (mean corpuscular volume ) determinationOrdered By: Joe Sanchez on 07-02-2024 MCV (RBC) [Entitic vol] 95.8 fL 81-[address] [facility] Mean corpuscular hemoglobin (MCH) determinationOrdered By: claudioaudubonlynnette Sanchez on 07-02-2024 MCH (RBC) [Entitic mass] 32.1 pg High 27.0-32.0 [facility] Mean corpuscular hemoglobin concentration (MCHC) determinationOrdered By: montez Sanchez on 07-02-2024 MCHC (RBC) [Mass/Vol] 33.5 g/dL 32-36 [facility] Mean platelet volume determi nationOrdered By: Lluviamontez Morrisawaismilton on 07-02-2024 Platelet mean volume (Bld) [Entitic vol] 12.6 fL High 6.2-12.0 [facility] Monocyte percentageOrdered B y: Joe Sanchez on 07-02-2024 Monocytes/100 WBC (Bld) 9.8 % 0-[address] [facility] Neutrophil percentageOrdered By: montez Sanchez on 07-02-2024 Neutrophils/100 WBC (Bld) 63.1 % 47-70 [facility] Nucleated red blood cell per centageOrdered By: montez Sanchez on 07-02-2024 Nucleated RBC/100 WBC (Bld) [Ratio] 0 % 0-5 [facility] Platelet countOrdered By: Lluvia claudiokayleigh Sanchez on 07-02-2024 Platelets (Bld) [#/Vol] 210 10*3/uL 150-450 [facility] Potassium measurement (mass/ volume)Ordered By: Joe Sanchez on 07-02-2024 Potassium (Unsp spec) [Mass/Vol] 4.4 mmol/L 3.3-5.1 [facility] Comment on above: Hemolysis present, R esults could be affected. RBC Auto (Bld) [#/Vol]Ordere d By: Joe Sanchez on 07-02-2024 RBC (Bld) [#/Vol] 4.30 10*6/uL 4.2-5.4 [facility] Serum creatinine measurement (mass/volume)Ordered By: Joe Sanchez on 07-02-2024 Creatinine [Mass/Vol] 1.78 mg/dL High 0.70-1.20 [facility] Serum glucose measurement (m ass/volume)Ordered By: Joe Sanchez on 07-02-2024 Glucose [Mass/Vol] 100 mg/dL High 70-99 [facility] Serum or plasma calcium leah urement (mass/volume)Ordered By: Joe Sanchez on 07-02-2024 Calcium [Mass/Vol] 9.5 mg/dL 7.6-11.0 [facility] Serum or plasma urea nitroge n measurement (mass/volume)Ordered By: Joe Sanchez on 07-02-2024 Urea nitrogen [Mass/Vol] 30 mg/dL High 4-19 [facility] Sodium levelOrdered By: Yudi Sanchez on 07-02-2024 Sodium [Moles/Vol] 138 mmol/L 133-145 [facility] White blood cell (WBC) count Ordered By: Joe Sanchez on 07-02-2024 WBC (Bld) [#/Vol] 7.1 10*3/uL 4.4-11.0 [facility] Vitamin D, 25-hydroxyOrdered By: Joe Sanchez on 06-18-2024 Vitamin D 25-Hydroxy 23.4 ng/mL Low 30-100 [facility] Comment on above: Vitamin D StatusDefi ciency: <20 ng/mL (50nmol/L)Insufficiency: 20-30 ng/mL (50-75 nmol/L)Sufficiency: 30-100 ng/mL (75-250 nmol/L)Toxicity: >100 ng/mL (>250 nmol/L) Absolute lymphocyte countOrd ered By: Yudimelissalynnette Morrisawaismilton on 06-04-2024 Lymphocytes Auto (Unsp spec) [#/Vol] 1.61 10*3/uL 0.83-4.51 [facility] Absolute neutrophil countOrd ered By: Joe Morrisawaismilton on 06-04-2024 Neutrophils (Bld) [#/Vol] 5.3 10*3/uL 2.0-7.7 [facility] Anion gap in Serum or Plasma Ordered By: Joe Sanchez on 06-04-2024 Anion gap [Moles/Vol] 13 mmol/L 5-15 [facility] Automated lymphocyte count a s percentage of total leukocytesOrdered By: Joe Sanchez on 06-04-2024 Lymphocytes/100 WBC Auto (Unsp spec) 19.9 % 19-41 [facility] BUN/creatinine ratioOrdered By: Joe Sanchez on 06-04-2024 Urea nitrogen/Creatinine [Mass ratio] 16.0 mg/mg 10-20 [facility] Basophil percentageOrdered B y: Yudimelissalynnette Morrisawaismilton on 06-04-2024 Basophils/100 WBC (Bld) 1.1 % High 0-1 [facility] Carbon dioxide, total [Moles /volume] in Central venous bloodOrdered By: Joe Sanchez on 06-04-2024 CO2 [Moles/Vol] 26.2 mmol/L 21.0-32.0 [facility] Chloride assayOrdered By: Lluvia Sanchez on 06-04-2024 Chloride [Moles/Vol] 99 mmol/L 98-108 [facility] Eosinophil percentageOrdered By: montez Sanchez on 06-04-2024 Eosinophils/100 WBC (Bld) 2.2 % 0-5 [facility] Erythrocyte distribution wid th (RBC) [Ratio]Ordered By: Joe Sanchez on 06-04-2024 Erythrocyte distribution width (RBC) [Entitic vol] 46.8 fL High 35.1-43.9 [facility] Erythrocyte distribution wid th ratioOrdered By: Joe Sanchez on 06-04-2024 Erythrocyte distribution width (RBC) [Ratio] 13.2 % 11.6-14.6 [facility] Erythrocyte distribution wid th standard deviationOrdered By: Joe Sanchez on 06-04-2024 Erythrocyte distribution width (RBC) [Ratio] 46.8 fl High 35.1-43.9 [facility] GFR/1.73 sq M.predicted venkata g non-blacks MDRD (S/P/Bld) [Vol rate/Area]Ordered By: Joe Sanchez on 06-04-2024 Estimated GFR (MDRD) Non-Af Amer 29 Low >60 [facility] Comment on above: mL/min/1.73m2 CKD-EP I Creatinine Equation (2020) Glomerular filtration rate ( GFR) estimation/1.73 sq m using serum, plasma, or whole bOrdered By: Joe Sanchez on 06-04-2024 GFR/1.73 sq M.predicted among non-blacks MDRD (S/P/Bld) [Vol rate/Area] 29 mL/min/{1.73_m2} Low >60 [facility] Comment on above: mL/min/1.73m2 CKD-EP I Creatinine Equation (2020) Hematocrit Auto (Bld) [Volum e fraction]Ordered By: Joe Sanchez on 06-04-2024 Hematocrit (Bld) [Volume fraction] 43.1 % 37-47 [facility] Hemoglobin measurementOrdere d By: Joe Sanchez on 06-04-2024 Hemoglobin (Bld) [Mass/Vol] 14.2 g/dL 12.0-15.0 [facility] Immature granulocytes/100 WB C Auto (Bld)Ordered By: Joe Sanchez 06-04-2024 Immature granulocytes/100 WBC (Bld) 0.600 % 0.0-0.9 [facility] Comment on above: IG% - Immature Granu locytes (promyelocytes, myelocytes and metamyelocytes) > 1% indicates that a LEFT SHIFT is Present. Lymphocytes Auto (Unsp spec) [#/Vol]Ordered By: Joe Sanchez on 06-04-2024 Lymphocytes (Bld) [#/Vol] 1.61 10*3/uL 0.83-4.51 [facility] Lymphocytes/100 WBC Auto (Un sp spec)Ordered By: Joe Sanchez on 06-04-2024 Lymphocytes/100 WBC (Bld) 19.9 % 19-41 [facility] MCV (mean corpuscular volume ) determinationOrdered By: Joe Sanchez on 06-04-2024 MCV (RBC) [Entitic vol] 96.9 fL 81-[address] [facility] Mean corpuscular hemoglobin (MCH) determinationOrdered By: Joe Sanchez on 06-04-2024 MCH (RBC) [Entitic mass] 31.9 pg 27.0-32.0 [facility] Mean corpuscular hemoglobin concentration (MCHC) determinationOrdered By: Joe Sanchez on 06-04-2024 MCHC (RBC) [Mass/Vol] 32.9 g/dL 32-36 [facility] Mean platelet volume determi nationOrdered By: Joe Sanchez on 06-04-2024 Platelet mean volume (Bld) [Entitic vol] 12.3 fL High 6.2-12.0 [facility] Monocyte percentageOrdered B y: Joe Sanchez on 06-04-2024 Monocytes/100 WBC (Bld) 10.4 % High 0-[address] [facility] Neutrophil percentageOrdered By: Joe Sanchez on 06-04-2024 Neutrophils/100 WBC (Bld) 65.8 % 47-70 [facility] Nucleated red blood cell per centageOrdered By: Joe Sanchez on 06-04-2024 Nucleated RBC/100 WBC (Bld) [Ratio] 0 % 0-5 [facility] Platelet countOrdered By: Lluvia claudiokayleigh Sanchez on 06-04-2024 Platelets (Bld) [#/Vol] 216 10*3/uL 150-450 [facility] Potassium (Unsp spec) [Mass/ Vol]Ordered By: Joe Sanchez on 06-04-2024 Potassium [Moles/Vol] 4.5 mmol/L 3.3-5.1 [facility] Potassium measurement (mass/ volume)Ordered By: Joe Sanchez on 06-04-2024 Potassium (Unsp spec) [Mass/Vol] 4.5 mmol/L 3.3-5.1 [facility] RBC Auto (Bld) [#/Vol]Ordere d By: Yudimelissalynnette Sanchez on 06-04-2024 RBC (Bld) [#/Vol] 4.45 10*6/uL 4.2-5.4 [facility] Serum creatinine measurement (mass/volume)Ordered By: Joe Sanchez on 06-04-2024 Creatinine [Mass/Vol] 1.74 mg/dL High 0.70-1.20 [facility] Serum glucose measurement (m ass/volume)Ordered By: Joe Sanchez on 06-04-2024 Glucose [Mass/Vol] 91 mg/dL 70-99 [facility] Serum or plasma calcium leah urement (mass/volume)Ordered By: Joe Sanchez on 06-04-2024 Calcium [Mass/Vol] 9.5 mg/dL 7.6-11.0 [facility] Serum or plasma urea nitroge n measurement (mass/volume)Ordered By: Joe Sanchez on 06-04-2024 Urea nitrogen [Mass/Vol] 28 mg/dL High 4-19 [facility] Sodium levelOrdered By: Lluviaclaudio kayleigh Arturoawaismilton on 06-04-2024 Sodium [Moles/Vol] 138 mmol/L 133-145 [facility] White blood cell (WBC) count Ordered By: Joe Sanchez on 06-04-2024 WBC (Bld) [#/Vol] 8.1 10*3/uL 4.4-11.0 [facility] Absolute lymphocyte countOrd ered By: Joe Sanchez on 05-07-2024 Lymphocytes Auto (Unsp spec) [#/Vol] 1.40 10*3/uL 0.83-4.51 [facility] Absolute neutrophil countOrd ered By: Joe Sanchez on 05-07-2024 Neutrophils (Bld) [#/Vol] 5.1 10*3/uL 2.0-7.7 [facility] Automated lymphocyte count a s percentage of total leukocytesOrdered By: Joe Sanchez on 05-07-2024 Lymphocytes/100 WBC Auto (Unsp spec) 19.1 % 19-41 [facility] Basophil percentageOrdered B y: Joe Sanchez on 05-07-2024 Basophils/100 WBC (Bld) 1.0 % 0-[address] [facility] Blood urea nitrogen (BUN)/cr eatinine ratioOrdered By: Joe Sanchez on 05-07-2024 Urea nitrogen/Creatinine [Mass ratio] 13.9 mg/mg 10-20 [facility] Carbon dioxide measurementOr dered By: Joe Sanchez on 05-07-2024 CO2 [Moles/Vol] 28.0 mmol/L 21.0-32.0 [facility] Chloride measurementOrdered By: claudioaudubonlynnette Sanchez on 05-07-2024 Chloride [Moles/Vol] 101 mmol/L 98-107 [facility] Eosinophil percentageOrdered By: Joe Sanchez on 05-07-2024 Eosinophils/100 WBC (Bld) 2.7 % 0-5 [facility] Erythrocyte distribution wid th (RBC) [Ratio]Ordered By: Joe Sanchez on 05-07-2024 Erythrocyte distribution width (RBC) [Entitic vol] 48.3 fL High 35.1-43.9 [facility] Erythrocyte distribution wid th ratioOrdered By: Joe Sanchez on 05-07-2024 Erythrocyte distribution width (RBC) [Ratio] 13.5 % 11.6-14.6 [facility] Erythrocyte distribution wid th standard deviationOrdered By: montez Sanchez on 05-07-2024 Erythrocyte distribution width (RBC) [Ratio] 48.3 fl High 35.1-43.9 [facility] Estimated glomerular filtrat ion rate (GFR) AmericanOrdered By: Joe Sanchez on 05-07-2024 Estimated GFR (MDRD) Amer 29 mL/min Low >60 [facility] Comment on above: GFR Calc Glomerular filtration rate ( GFR) estimationOrdered By: Joe Sanchez on 05-07-2024 Estimated GFR (MDRD) Non-Af Amer 24 mL/min Low >60 [facility] Comment on above: Non- GFR Calc GFR/1.73 sq M.predicted among non-blacks MDRD (S/P/Bld) [Vol rate/Area] 24 mL/min/{1.73_m2} Low >60 [facility] Comment on above: Non- GFR Calc Glucose measurementOrdered B y: Joe Sanchez on 05-07-2024 Glucose [Mass/Vol] 122 mg/dL High 74-106 [facility] Comment on above: Fasting Glucose resu lt from 100 to 125 mg/dL suggests IMPAIRED HOMEOSTASIS per A.D.A. criteria. Hematocrit Auto (Bld) [Volum e fraction]Ordered By: Joe Sanchez on 05-07-2024 Hematocrit (Bld) [Volume fraction] 41.3 % 37-47 [facility] Hemoglobin measurementOrdere d By: Joe Sanchez on 05-07-2024 Hemoglobin (Bld) [Mass/Vol] 13.4 g/dL 12.0-15.0 [facility] Immature granulocytes/100 WB C Auto (Bld)Ordered By: Joe Sanchez on 05-07-2024 Immature granulocytes/100 WBC (Bld) 0.700 % 0.0-0.9 [facility] Comment on above: IG% - Immature Granu locytes (promyelocytes, myelocytes and metamyelocytes) > 1% indicates that a LEFT SHIFT is Present. Lymphocytes Auto (Unsp spec) [#/Vol]Ordered By: Joe Sanchez on 05-07-2024 Lymphocytes (Bld) [#/Vol] 1.40 10*3/uL 0.83-4.51 [facility] Lymphocytes/100 WBC Auto (Un sp spec)Ordered By: Joe Sanchez on 05-07-2024 Lymphocytes/100 WBC (Bld) 19.1 % 19-41 [facility] MCV (mean corpuscular volume ) determinationOrdered By: Joe Sanchez on 05-07-2024 MCV (RBC) [Entitic vol] 98.6 fL 81-[address] [facility] Mean corpuscular hemoglobin (MCH) determinationOrdered By: Joe Sanchez on 05-07-2024 MCH (RBC) [Entitic mass] 32.0 pg 27.0-32.0 [facility] Mean corpuscular hemoglobin concentration (MCHC) determinationOrdered By: Joe Sanchez on 05-07-2024 MCHC (RBC) [Mass/Vol] 32.4 g/dL 32-36 [facility] Mean platelet volume determi nationOrdered By: Joe Sanchez on 05-07-2024 Platelet mean volume (Bld) [Entitic vol] 12.6 fL High 6.2-12.0 [facility] Monocyte percentageOrdered B y: Joe Sanchez on 05-07-2024 Monocytes/100 WBC (Bld) 7.4 % 0-[address] [facility] Neutrophil percentageOrdered By: Joe Sanchez on 05-07-2024 Neutrophils/100 WBC (Bld) 69.1 % 47-70 [facility] Nucleated red blood cell per centageOrdered By: Joe Sanchez on 05-07-2024 Nucleated RBC/100 WBC (Bld) [Ratio] 0 % 0-5 [facility] Platelet countOrdered By: Lluvia Sanchez on 05-07-2024 Platelets (Bld) [#/Vol] 194 10*3/uL 150-450 [facility] Potassium measurementOrdered By: Joe Sanchez on 05-07-2024 Potassium [Moles/Vol] 3.6 mmol/L 3.5-5.1 [facility] RBC Auto (Bld) [#/Vol]Ordere d By: Joe Sanchez on 05-07-2024 RBC (Bld) [#/Vol] 4.19 10*6/uL Low 4.2-5.4 [facility] Serum anion gap measurementO rdered By: Joe Sanchez on 05-07-2024 Anion gap [Moles/Vol] 10 mmol/L 5-15 [facility] Serum or plasma calcium leah urement (mass/volume)Ordered By: Joe Sanchez on 05-07-2024 Calcium [Mass/Vol] 9.3 mg/dL 8.5-10.1 [facility] Serum or plasma creatinine m easurement (mass/volume)Ordered By: Joe Sanchez on 05-07-2024 Creatinine [Mass/Vol] 2.08 mg/dL High 0.55-1.02 [facility] Comment on above: The validity of the calculated GFR & GFRAA in patients over 70 years has not been determined. Clinical correlation is essential. Serum or plasma urea nitroge n measurement (mass/volume)Ordered By: Joe Sanchez on 05-07-2024 Urea nitrogen [Mass/Vol] 29 mg/dL High 7-18 [facility] Sodium levelOrdered By: Yudi Sanchez on 05-07-2024 Sodium [Moles/Vol] 139 mmol/L 136-145 [facility] White blood cell (WBC) count Ordered By: Joe Sanchez on 05-07-2024 WBC (Bld) [#/Vol] 7.3 10*3/uL 4.4-11.0 [facility] 27-[id number]-[id number] DOrdered By: Milton Sanchez on 04-22-2024 Vitamin D 25-Hydroxy 69.4 ng/mL [facility] Comment on above: Vitamin D 25(OH) Sta tus Range Deficiency <20 ng/mL (50nmol/L) Insufficiency 20 - 30 ng/mL (50 - 75 nmol/L) Sufficiency 30 - 100 ng/mL (75 - 250 nmol/L) Toxicity >100 ng/mL (>250 nmol/L) Bilirubin directOrdered By: Joe Sanchez on 04-22-2024 Bilirubin.direct [Mass/Vol] 0.29 mg/dL 0.00-0.30 [facility] Bilirubin, totalOrdered By: Joe Sanchez on 04-22-2024 Bilirubin [Mass/Vol] 0.90 mg/dL 0.20-1.00 [facility] Comment on above: For patients on eltr ombopag therapy, use of Dimension [place] TBIL is not recommended. Hemoglobin A1c percentageOrd ered By: Joe Sanchez on 04-22-2024 HbA1c (Bld) [Mass fraction] 5.2 % 3.8-5.6 [facility] Comment on above: Normal < 5.7 % Predi abetic 5.7 - 6.4 % Diabetic >or= 6.5 % Please note range changes. High density lipoprotein (HD L) measurementOrdered By: Joe Sanchez on 04-22-2024 Cholesterol in HDL [Mass/Vol] 44 mg/dL >40 [facility] Comment on above: The drugs N-Acetylcy steine and Metamizole may falsely depress this assay. Reference Range HDL <40 mg/dL Low HDL Cholesterol HDL >or= 60 mg/dL High HDL Cholesterol Laboratory - Chemistry and C hemistry - challengeOrdered By: Joe Sanchez on 04-22-2024 AST [Catalytic activity/Vol] 15 U/L 15-37 [facility] Low density lipoprotein (LDL ) cholesterol measurementOrdered By: Joe Sanchez on 04-22-2024 Cholesterol in LDL [Mass/Vol] 41 mg/dL 0-130 [facility] Serum globulin measurementOr dered By: Joe Sanchez on 04-22-2024 Globulin (S) [Mass/Vol] 3.7 g/dL 2.2-4.2 [facility] Serum or plasma alanine kilpatrick otransferase (ALT) measurementOrdered By: Joe Sanchez on 04-22-2024 ALT [Catalytic activity/Vol] 14 U/L 13-56 [facility] Serum or plasma albumin leah urement (mass/volume)Ordered By: Joe Sanchez on 04-22-2024 Albumin [Mass/Vol] 2.7 g/dL Low 3.2-5.0 [facility] Serum or plasma alkaline kirti sphatase measurementOrdered By: Joe Sanchez on 04-22-2024 ALP [Catalytic activity/Vol] 61 U/L 45-117 [facility] Serum or plasma cholesterol measurement (mass/volume)Ordered By: Joe Sanchez on 04-22-2024 Cholesterol [Mass/Vol] 106 mg/dL <200 [facility] Comment on above: <200 mg/dL Desirable 200-240 mg/dL Borderline >240 mg/dL High Risk Total proteinOrdered By: Constantin chancelynnette Sanchez on 04-22-2024 Protein [Mass/Vol] 6.4 g/dL 6.4-8.2 [facility] Triglycerides measurementOrd ered By: Yudimelissalynnette Sanchez on 04-22-2024 Triglyceride [Mass/Vol] 107 mg/dL <[address] [facility] Comment on above: The drugs N-Acetylcy steine and Metamizole may falsely depress this assay.Serum Triglycerides Reference Interval Normal <150 mg/dL Borderline high 150 - 199 mg/dL High 200 - 499 mg/dL Very High > or = 500 mg/dL Very low density lipoprotein (VLDL) cholesterol measurementOrdered By: Joe Sanchez on 04-22-2024 Very low density lipoprotein (VLDL) cholesterol measurement 21 mg/dL 5-40 [facility] VLDL Cholesterol 21 mg/dL 5-40 [facility] Absolute lymphocyte countOrd ered By: Joe Sanchez on 04-09-2024 Lymphocytes Auto (Unsp spec) [#/Vol] 1.63 10*3/uL 0.83-4.51 [facility] Absolute neutrophil countOrd ered By: Joe Sanchez on 04-09-2024 Neutrophils (Bld) [#/Vol] 5.0 10*3/uL 2.0-7.7 [facility] Automated lymphocyte count a s percentage of total leukocytesOrdered By: Joe Sanchez on 04-09-2024 Lymphocytes/100 WBC Auto (Unsp spec) 20.7 % 19- [facility] Basophil percentageOrdered B y: Joe Sanchez on 04-09-2024 Basophils/100 WBC (Bld) 1.3 % High 0-[address] [facility] Blood urea nitrogen (BUN)/cr eatinine ratioOrdered By: Joe Sanchez on 04-09-2024 Urea nitrogen/Creatinine [Mass ratio] 11.4 mg/mg 10-20 [facility] Carbon dioxide measurementOr dered By: Joe Sanchez on 04-09-2024 CO2 [Moles/Vol] 30.0 mmol/L 21.0-32.0 [facility] Chloride measurementOrdered By: Joe Sanchez on 04-09-2024 Chloride [Moles/Vol] 100 mmol/L 98-107 [facility] Eosinophil percentageOrdered By: Joe Sanchez on 04-09-2024 Eosinophils/100 WBC (Bld) 2.4 % 0-5 [facility] Erythrocyte distribution wid th (RBC) [Ratio]Ordered By: Joe Sanchez on 04-09-2024 Erythrocyte distribution width (RBC) [Entitic vol] 49.9 fL High 35.1-43.9 [facility] Erythrocyte distribution wid th ratioOrdered By: Joe Sanchez on 04-09-2024 Erythrocyte distribution width (RBC) [Ratio] 13.6 % 11.6-14.6 [facility] Erythrocyte distribution wid th standard deviationOrdered By: Joe Sanchez on 04-09-2024 Erythrocyte distribution width (RBC) [Ratio] 49.9 fl High 35.1-43.9 [facility] Estimated glomerular filtrat ion rate (GFR) AmericanOrdered By: Joe Sanchez on 04-09-2024 Estimated GFR (MDRD) Amer 36 mL/min Low >60 [facility] Comment on above: GFR Calc Glomerular filtration rate ( GFR) estimationOrdered By: Joe Sanchez on 04-09-2024 Estimated GFR (MDRD) Non-Af Amer 30 mL/min Low >60 [facility] Comment on above: Non- GFR Calc GFR/1.73 sq M.predicted among non-blacks MDRD (S/P/Bld) [Vol rate/Area] 30 mL/min/{1.73_m2} Low >60 [facility] Comment on above: Non- GFR Calc Glucose measurementOrdered B y: Joe Sanchez on 04-09-2024 Glucose [Mass/Vol] 86 mg/dL 74-106 [facility] Hematocrit Auto (Bld) [Volum e fraction]Ordered By: Joe Sanchez on 04-09-2024 Hematocrit (Bld) [Volume fraction] 40.5 % 37-47 [facility] Hemoglobin measurementOrdere d By: Joe Sanchez on 04-09-2024 Hemoglobin (Bld) [Mass/Vol] 13.0 g/dL 12.0-15.0 [facility] Immature granulocytes/100 WB C Auto (Bld)Ordered By: Joe Sanchez on 04-09-2024 Immature granulocytes/100 WBC (Bld) 0.600 % 0.0-0.9 [facility] [facility] Comment on above: IG% - Immature Granu locytes (promyelocytes, myelocytes and metamyelocytes) > 1% indicates that a LEFT SHIFT is Present. Lymphocytes Auto (Unsp spec) [#/Vol]Ordered By: claudioaudubonlynnette Sanchez on 04-09-2024 Lymphocytes (Bld) [#/Vol] 1.63 10*3/uL 0.83-4.51 [facility] Lymphocytes/100 WBC Auto (Un sp spec)Ordered By: montez Sanchez on 04-09-2024 Lymphocytes/100 WBC (Bld) 20.7 % 19-41 [facility] MCV (mean corpuscular volume ) determinationOrdered By: Joe Sanchez on 04-09-2024 MCV (RBC) [Entitic vol] 98.5 fL 81-[address] [facility] Mean corpuscular hemoglobin (MCH) determinationOrdered By: Joe Sanchez on 04-09-2024 MCH (RBC) [Entitic mass] 31.6 pg 27.0-32.0 [facility] Mean corpuscular hemoglobin concentration (MCHC) determinationOrdered By: Joe Sanchez on 04-09-2024 MCHC (RBC) [Mass/Vol] 32.1 g/dL 32-36 [facility] Mean platelet volume determi nationOrdered By: montez Sanchez on 04-09-2024 Platelet mean volume (Bld) [Entitic vol] 12.2 fL High 6.2-12.0 [facility] Monocyte percentageOrdered B y: Joe Sanchez on 04-09-2024 Monocytes/100 WBC (Bld) 10.9 % High 0-[address] [facility] Neutrophil percentageOrdered By: Joe Sanchez on 01-21-2025 Neutrophils/100 WBC (Bld) 64.1 % 47-70 [facility] Nucleated red blood cell per centageOrdered By: Joe Sanchez on 04-09-2024 Nucleated RBC/100 WBC (Bld) [Ratio] 0 % 0-5 [facility] Platelet countOrdered By: Lluvia Sanchez on 04-09-2024 Platelets (Bld) [#/Vol] 215 10*3/uL 150-450 [facility] Potassium measurementOrdered By: Joe Sanchez on 04-09-2024 Potassium [Moles/Vol] 4.2 mmol/L 3.5-5.1 [facility] RBC Auto (Bld) [#/Vol]Ordere d By: Joe Sanchez on 04-09-2024 RBC (Bld) [#/Vol] 4.11 10*6/uL Low 4.2-5.4 [facility] Serum anion gap measurementO rdered By: Joe Sanchez on 04-09-2024 Anion gap [Moles/Vol] 6 mmol/L 5-15 [facility] Serum or plasma calcium leah urement (mass/volume)Ordered By: Joe Sanchez on 04-09-2024 Calcium [Mass/Vol] 9.8 mg/dL 8.5-10.1 [facility] Serum or plasma creatinine m easurement (mass/volume)Ordered By: Joe Sanchez on 04-09-2024 Creatinine [Mass/Vol] 1.75 mg/dL High 0.55-1.02 [facility] Comment on above: The validity of the calculated GFR & GFRAA in patients over 70 years has not been determined. Clinical correlation is essential. Serum or plasma urea nitroge n measurement (mass/volume)Ordered By: Joe Sanchez on 04-09-2024 Urea nitrogen [Mass/Vol] 20 mg/dL High 7-18 [facility] Sodium levelOrdered By: Yudi Sanchez on 04-09-2024 Sodium [Moles/Vol] 137 mmol/L 136-145 [facility] White blood cell (WBC) count Ordered By: Joe Sanchez on 04-09-2024 WBC (Bld) [#/Vol] 7.9 10*3/uL 4.4-11.0 [facility] 36on 04-03-2024 36 Records received and scanned under Media [facility] 36on 04-01-2024 36 I called Osmany and she requested me to fax med recs release to [phone] I faxed this morning. Confirmed 04/02 at 5:45p [facility] 36on 03-15-2024 36 Chart reviewed, patient completed 30 day follow-up in [place]. Cancelled echo order [facility] 36 Patient prefers care in [facility] 36 We have been unable to reach your patient to schedule their testing. Test Name: echo 1st Attempt: 03/14/2024 left voicemail 2nd Attempt: 03/15/2024 left voicemail [facility] Bilirubin Test strip Ql (U)O rdered By: Joe Sanchez on 03-15-2024 Bilirubin Ql (U) Negative Negative [facility] Glucose Ql (U)Ordered By: Lluvia Sanchez on 03-15-2024 Glucose (U) [Mass/Vol] 250 mg/dL High Normal [facility] Ketones Test strip Ql (U)Ord ered By: Joe Sanchez on 03-15-2024 Ketones Ql (U) Negative Negative [facility] Nitrite Test strip Ql (U)Ord ered By: Joe Sanchez on 03-15-2024 Nitrite Ql (U) Negative Negative [facility] Protein Test strip Ql (U)Ord ered By: Joe Sanchez on 03-15-2024 Protein Ql (U) 100 mg/dl High Negative [facility] Urine blood detectionOrdered By: Joe Sanchez on 03-15-2024 Urine Occult Blood 250 /ul High Negative [facility] Urine clarityOrdered By: Constantin Sanchez on 03-15-2024 Clarity (U) Cloudy Clear [facility] Urine color determinationOrd ered By: Joe Sanchez on 03-15-2024 Color (U) Straw Yellow [facility] Urine cultureOrdered By: Constantin Sanchez on 03-15-2024 Bacteria identified Cx Nom (U) Enterobacter cloacae complex Abnormal [facility] Urine leukocyte esterase det ection by dipstickOrdered By: Joe Sanchez on 03-15-2024 Leukocyte esterase Test strip Ql (U) 500 /ul High Negative [facility] Urine pHOrdered By: Miles Sanchez on 03-15-2024 pH (U) 6.0 [pH] 5.0 - 8.0 [facility] Urine specific gravity measu rementOrdered By: Joe Sanchez on 03-15-2024 Specific gravity (U) [Rel density] 1.015 1.002-1.030 [facility] Urobilinogen Ql (U)Ordered B y: Joe Sanchez on 03-15-2024 Urine Urobilinogen Normal mg/dl Normal [facility] Absolute neutrophil countOrd ered By: Joe Sanchez on 03-08-2024 Neutrophils (Bld) [#/Vol] 5.5 10*3/uL 2.0-7.7 [facility] Basophil percentageOrdered B y: Joe Sanchez on 03-08-2024 Basophils/100 WBC (Bld) 1.3 % High 0-[address] [facility] Blood urea nitrogen (BUN)/cr eatinine ratioOrdered By: Joe Sanchez on 03-08-2024 Urea nitrogen/Creatinine [Mass ratio] 13.4 mg/mg 10-20 [facility] Carbon dioxide measurementOr dered By: Joe Sanchez on 03-08-2024 CO2 [Moles/Vol] 27.0 mmol/L 21.0-32.0 [facility] Chloride measurementOrdered By: Joe Sanchez on 03-08-2024 Chloride [Moles/Vol] 98 mmol/L 98-107 [facility] Eosinophil percentageOrdered By: Joe Sanchez on 03-08-2024 Eosinophils/100 WBC (Bld) 3.6 % 0-5 [facility] Erythrocyte distribution wid th (RBC) [Ratio]Ordered By: Joe Sanchez on 03-08-2024 Erythrocyte distribution width (RBC) [Entitic vol] 50.5 fL High 35.1-43.9 [facility] Erythrocyte distribution wid th ratioOrdered By: Joe Chaumilton on 03-08-2024 Erythrocyte distribution width (RBC) [Ratio] 14.1 % 11.6-14.6 [facility] Estimated glomerular filtrat ion rate (GFR) AmericanOrdered By: Joe Sanchez on 03-08-2024 Estimated GFR (MDRD) Amer 35 mL/min Low >60 [facility] Comment on above: GFR Calc Glomerular filtration rate ( GFR) estimationOrdered By: Joe Sanchez on 03-08-2024 Estimated GFR (MDRD) Non-Af Amer 29 mL/min Low >60 [facility] Comment on above: Non- GFR Calc Glucose measurementOrdered B y: Joe Sanchez on 03-08-2024 Glucose [Mass/Vol] 82 mg/dL 74-106 [facility] Hematocrit Auto (Bld) [Volum e fraction]Ordered By: Joe Sanchez on 03-08-2024 Hematocrit (Bld) [Volume fraction] 39.8 % 37-47 [facility] Hemoglobin measurementOrdere d By: Yudimelissalynnette Sanchez on 03-08-2024 Hemoglobin (Bld) [Mass/Vol] 13.1 g/dL 12.0-15.0 [facility] Immature granulocytes/100 WB C Auto (Bld)Ordered By: Joe Sanchez on 03-08-2024 Immature granulocytes/100 WBC (Bld) 1.300 % High 0.0-0.9 [facility] Comment on above: IG% - Immature Granu locytes (promyelocytes, myelocytes and metamyelocytes) > 1% indicates that a LEFT SHIFT is Present. Lymphocytes Auto (Unsp spec) [#/Vol]Ordered By: Joe Sanchez on 03-08-2024 Lymphocytes (Bld) [#/Vol] 1.69 10*3/uL 0.83-4.51 [facility] Lymphocytes/100 WBC Auto (Un sp spec)Ordered By: Joe Sanchez on 03-08-2024 Lymphocytes/100 WBC (Bld) 19.6 % 19-41 [facility] MCV (mean corpuscular volume ) determinationOrdered By: Joe Sanchez on 03-08-2024 MCV (RBC) [Entitic vol] 97.3 fL 81-[address] [facility] Mean corpuscular hemoglobin (MCH) determinationOrdered By: Efmontez Sanchez on 03-08-2024 MCH (RBC) [Entitic mass] 32.0 pg 27.0-32.0 [facility] Mean corpuscular hemoglobin concentration (MCHC) determinationOrdered By: Joe Sacnhez on 03-08-2024 MCHC (RBC) [Mass/Vol] 32.9 g/dL 32-36 [facility] Mean platelet volume determi nationOrdered By: Joe Sanchez on 03-08-2024 Platelet mean volume (Bld) [Entitic vol] 11.9 fL 6.2-12.0 [facility] Monocyte percentageOrdered B y: Joe Sanchez on 03-08-2024 Monocytes/100 WBC (Bld) 10.9 % High 0-[address] [facility] Neutrophil percentageOrdered By: Joe Sanchez on 03-08-2024 Neutrophils/100 WBC (Bld) 63.3 % 47-70 [facility] Nucleated red blood cell per centageOrdered By: Joe Sanchez on 03-08-2024 Nucleated RBC/100 WBC (Bld) [Ratio] 0 % 0-5 [facility] Platelet countOrdered By: Ef claudioonglynnette Sanchez on 03-08-2024 Platelets (Bld) [#/Vol] 232 10*3/uL 150-450 [facility] Potassium measurementOrdered By: Joe Sanchez on 03-08-2024 Potassium [Moles/Vol] 4.1 mmol/L 3.5-5.1 [facility] RBC Auto (Bld) [#/Vol]Ordere d By: Joaquinbe Kandie on 03-08-2024 RBC (Bld) [#/Vol] 4.09 10*6/uL Low 4.2-5.4 [facility] Serum anion gap measurementO rdered By: Joe Sanchez on 03-08-2024 Anion gap [Moles/Vol] 9 mmol/L 5-15 [facility] Serum or plasma calcium leah urement (mass/volume)Ordered By: Joe Sanchez on 03-08-2024 Calcium [Mass/Vol] 9.6 mg/dL 8.5-10.1 [facility] Serum or plasma creatinine m easurement (mass/volume)Ordered By: Joe Sanchez on 03-08-2024 Creatinine [Mass/Vol] 1.79 mg/dL High 0.55-1.02 [facility] Comment on above: The validity of the calculated GFR & GFRAA in patients over 70 years has not been determined. Clinical correlation is essential. Serum or plasma urea nitroge n measurement (mass/volume)Ordered By: Joe Sanchez on 03-08-2024 Urea nitrogen [Mass/Vol] 24 mg/dL High 7-18 [facility] Sodium levelOrdered By: Yudi kirbydrew Daniel on 03-08-2024 Sodium [Moles/Vol] 134 mmol/L Low 136-145 [facility] White blood cell (WBC) count Ordered By: Joe Sanchez on 03-08-2024 WBC (Bld) [#/Vol] 8.6 10*3/uL 4.4-11.0 [facility] Absolute neutrophil countOrd ered By: Joe Sanchez on 03-01-2024 Neutrophils (Bld) [#/Vol] 5.1 10*3/uL 2.0-7.7 [facility] Basophil percentageOrdered B y: Joe Sanchez on 03-01-2024 Basophils/100 WBC (Bld) 1.6 % High 0-[address] [facility] Blood urea nitrogen (BUN)/cr eatinine ratioOrdered By: Joe Sanchez on 03-01-2024 Urea nitrogen/Creatinine [Mass ratio] 15.9 mg/mg 10- [facility] Carbon dioxide measurementOr dered By: Joe Sanchez on 03-01-2024 CO2 [Moles/Vol] 26.0 mmol/L 21.0-32.0 [facility] Chloride measurementOrdered By: Joe Sanchez on 03-01-2024 Chloride [Moles/Vol] 101 mmol/L 98-107 [facility] Eosinophil percentageOrdered By: Joe Sanchez on 03-01-2024 Eosinophils/100 WBC (Bld) 3.2 % 0-5 [facility] Erythrocyte distribution wid th (RBC) [Ratio]Ordered By: Joe Sanchez on 03-01-2024 Erythrocyte distribution width (RBC) [Entitic vol] 49.1 fL High 35.1-43.9 [facility] Erythrocyte distribution wid th ratioOrdered By: Joe Sanchez on 03-01-2024 Erythrocyte distribution width (RBC) [Ratio] 14.0 % 11.6-14.6 [facility] Estimated glomerular filtrat ion rate (GFR) AmericanOrdered By: Joe Sanchez on 03-01-2024 Estimated GFR (MDRD) Amer 30 mL/min Low >60 [facility] Comment on above: GFR Calc Glomerular filtration rate ( GFR) estimationOrdered By: Joe Sanchez on 03-01-2024 Estimated GFR (MDRD) Non-Af Amer 25 mL/min Low >60 [facility] Comment on above: Non- GFR Calc Glucose measurementOrdered B y: Joe Sanchez on 03-01-2024 Glucose [Mass/Vol] 101 mg/dL 74-106 [facility] Comment on above: Fasting Glucose resu lt from 100 to 125 mg/dL suggests IMPAIRED HOMEOSTASIS per A.D.A. criteria. Hematocrit Auto (Bld) [Volum e fraction]Ordered By: Joe Sanchez on 03-01-2024 Hematocrit (Bld) [Volume fraction] 37.7 % 37-47 [facility] Hemoglobin measurementOrdere d By: Joe Sanchez on 03-01-2024 Hemoglobin (Bld) [Mass/Vol] 12.6 g/dL 12.0-15.0 [facility] Immature granulocytes/100 WB C Auto (Bld)Ordered By: Joe Sanchez on 03-01-2024 Immature granulocytes/100 WBC (Bld) 1.200 % High 0.0-0.9 [facility] Comment on above: IG% - Immature Granu locytes (promyelocytes, myelocytes and metamyelocytes) > 1% indicates that a LEFT SHIFT is Present. Lymphocytes Auto (Unsp spec) [#/Vol]Ordered By: Joe Sanchez on 03-01-2024 Lymphocytes (Bld) [#/Vol] 1.56 10*3/uL 0.83-4.51 [facility] Lymphocytes/100 WBC Auto (Un sp spec)Ordered By: Joe Sanchez on 03-01-2024 Lymphocytes/100 WBC (Bld) 19.0 % 19-41 [facility] MCV (mean corpuscular volume ) determinationOrdered By: Joe Sanchez on 03-01-2024 MCV (RBC) [Entitic vol] 96.2 fL 81-[address] [facility] Mean corpuscular hemoglobin (MCH) determinationOrdered By: Joe Sanchez on 03-01-2024 MCH (RBC) [Entitic mass] 32.1 pg High 27.0-32.0 [facility] Mean corpuscular hemoglobin concentration (MCHC) determinationOrdered By: Joe Sanchez on 03-01-2024 MCHC (RBC) [Mass/Vol] 33.4 g/dL 32-36 [facility] Mean platelet volume determi nationOrdered By: Joe Sanchez on 03-01-2024 Platelet mean volume (Bld) [Entitic vol] 12.0 fL 6.2-12.0 [facility] Monocyte percentageOrdered B y: Joe Sanchez on 03-01-2024 Monocytes/100 WBC (Bld) 12.9 % High 0-[address] [facility] Neutrophil percentageOrdered By: Joe Sanchez on 03-01-2024 Neutrophils/100 WBC (Bld) 62.1 % 47-70 [facility] Nucleated red blood cell per centageOrdered By: Joe Sanchez on 03-01-2024 Nucleated RBC/100 WBC (Bld) [Ratio] 0 % 0-5 [facility] Platelet countOrdered By: Lluvia Sanchez on 03-01-2024 Platelets (Bld) [#/Vol] 212 10*3/uL 150-450 [facility] Potassium measurementOrdered By: Joe Sanchez on 03-01-2024 Potassium [Moles/Vol] 4.1 mmol/L 3.5-5.1 [facility] RBC Auto (Bld) [#/Vol]Ordere d By: Joe Sanchez on 03-01-2024 RBC (Bld) [#/Vol] 3.92 10*6/uL Low 4.2-5.4 [facility] Serum anion gap measurementO rdered By: Joe Sanchze on 03-01-2024 Anion gap [Moles/Vol] 8 mmol/L 5-15 [facility] Serum or plasma calcium leah urement (mass/volume)Ordered By: Joe Sanchez on 03-01-2024 Calcium [Mass/Vol] 9.6 mg/dL 8.5-10.1 [facility] Serum or plasma creatinine m easurement (mass/volume)Ordered By: Joe Sanchez on 03-01-2024 Creatinine [Mass/Vol] 2.01 mg/dL High 0.55-1.02 [facility] Comment on above: The validity of the calculated GFR & GFRAA in patients over 70 years has not been determined. Clinical correlation is essential. Serum or plasma urea nitroge n measurement (mass/volume)Ordered By: Joe Sanchez on 03-01-2024 Urea nitrogen [Mass/Vol] 32 mg/dL High 7-18 [facility] Sodium levelOrdered By: Yudi Sanchez on 03-01-2024 Sodium [Moles/Vol] 136 mmol/L 136-145 [facility] White blood cell (WBC) count Ordered By: Joe Sanchez on 03-01-2024 WBC (Bld) [#/Vol] 8.2 10*3/uL 4.4-11.0 [facility] Cardiology Visit Reporton Cardiology Visit Report [facility] [address] [place] [address] OFFICE VISIT Date of Service: 02/07/24 MR#: [id number] Acct: [id number] Name: BRIANNE CALL Rep #: [id number] : 1940 Provider: Dr. Suzan Garces MD Age/Sex: 83/F Location: [facility] [place] Status: Signed HPI HPI History of Present [...] Intake Visit Reasons: 1 M FU/NEEDS EKG Vascular Ultrasound Technologist Required: No Accompanied by: Caregiver Is patient [...] Auscultation: Bilateral: Cl (more content not included)... [facility] 36on 01-04-2024 36 I spoke w/ Juana in Dr. Garces's office, asking for echo order to be faxed. I placed order, Teofilo David DNP to sign, order needs faxed to Juana's attention @ [phone]. Time frame dates given to Juana for completion of OV/EKG/echo. KCCQ mailed to pt. [facility] 36 ----- Message from JEREMIE Saldaña CNP sent at 01/04/2024 1:51 PM EDT ----- Please call [place] office and advise regarding registry requirements of one month and one yr appts and echo. Will likely need phone call for KCCQ. [facility] Office Visiton 01-04-2024 Follow-up visit [id number] Brianne Call 1940 F Date Provider Department Center 01/04/2024 [id number] DAVID [facility] R[facility]IS [facility] [address] No family history on file Level of Service:37370 NC OFFICE/OUTPATIENT ESTABLISHED MOD MDM 30 MIN Reason for Visit and Comments: Cardiac Valve Problem [1334] - One week post TAVR [facility] Progress Noteon 01-04-2024 Progress Note [facility] - [address] [address] Dept: [phone] Dept Visit type: Established : 1940 Reason for Visit: Cardiac Valve Problem (One week post TAVR) Assessment and Plan 1. Chronic atrial fibrillation (HCC). HR stable. Continue Apixaban 2. Severe aortic stenosis. S/p tAVR. Continue Eliquis. Will contact [place] regarding follow up and registry requirements. SBE prophylaxis. Plan echo in one month 3. Stage 3a chronic kidney disease (HCC). Renal function remains stable post procedure. Advised that kidney function should be followed terminal clerk. GFR 27--> 46 4. Left heart failure (HCC). Improved after TAVR, EF 30%--> 50 %, continue furosemide, Aldactone, Farxiga, metoprolol (allerg to landon/ARB) Plan follow up in [place] Subjective Ms Call is an 83 yr old female with a PMH of permanent AF, HFrEF, HTN, HPL, CKD stage 3b, obesity, GERD, and severe with EF 30%, mean and peak gradients 49/71 mm Hg. She underwent cardiac cath at [place] which showed non obstructive CAD. She underwent [...] wrist complaints. She wishes to follow in [place] as travel is difficult for her Allergies [...] 12/25/2023 Performed by Harjeet Huffman MD at [facility] OR CATARACT EXTRACTION HYSTERECTOMY No family history [...] specialty: Independent interpretation of tests: Mónica David, POWERHOUSE OPERATOR - SPECIAL EDUCATION ASSOCIATE Normal [facility] BASIC METABOLIC PANELon 10-0 Anion gap [Moles/Vol] 7 mmol/L Normal 3-13 [facility] Comment on above: Performed By: #### L AB15 ####Prompt Care Rn: AIDE RUEDA ([id number])[facility] ([address] Calcium [Mass/Vol] 9.1 mg/dL Normal 8.4-10.4 [facility] Comment on above: Performed By: #### L AB15 ####Prompt Care Rn: AIDE RUEDA ([id number])[facility] ([facility])[address] [place] [address] Chloride [Moles/Vol] 108 mmol/L High 98-107 [facility] Comment on above: Performed By: #### L AB15 ####Prompt Care Rn: AIDE RUEDA ([id number])[facility] ([facility])[address] [place] [address] CO2 [Moles/Vol] 19 mmol/L Low 22-30 [facility] Comment on above: Performed By: #### L AB15 ####Prompt Care Rn: AIDE RUEDA ([id number])[facility] ([facility])[address] [place] [address] Creatinine [Mass/Vol] 1.17 mg/dL High 0.52-1.04 [facility] Comment on above: Performed By: #### L AB15 ####Prompt Care Rn: AIDE RUEDA ([id number])[facility] ([facility])[address] [place] [address] GLOMERULAR FILTRATION RATE ML/MIN/1.73 SQ M.PREDICTED 46.4 mL/min/1.73m*2 Low >60.0 [facility] Comment on above: Result Comment: Calc ulation based on the Chronic Kidney Disease Epidemiology Collaboration (CKD-EPI) equation refit without adjustment for race Performed By: #### L AB15 ####Prompt Care Rn: AIDE RUEDA ([id number])[facility] ([facility] [place] [address] [place] Glucose [Mass/Vol] 121 mg/dL High 70-100 [facility] Comment on above: Performed By: #### L AB15 ####Prompt Care Rn: AIDE RUEDA ([id number])[facility] ([facility])[address] [place] [address] Potassium [Moles/Vol] 4.4 mmol/L Normal 3.5-5.1 [facility] Comment on above: Performed By: #### L AB15 ####Prompt Care Rn: AIDE RUEDA ([id number])[facility] ([facility])[address] [place] [address] Sodium [Moles/Vol] 134 mmol/L Low 135-145 [facility] Comment on above: Performed By: #### L AB15 ####Prompt Care Rn: AIDE RUEDA ([id number])[facility] ([facility])[address] [place] [address] Urea nitrogen [Mass/Vol] 31 mg/dL High 7-17 [facility] Comment on above: Performed By: #### L AB15 ####Prompt Care Rn: AIDE RUEDA ([id number])[facility] ([facility])[address] [place] [address] Basic metabolic 1998 panelon 12-26-2023 Anion gap [Moles/Vol] 7 mmol/L 3 - 13 mmol/L [facility] Calcium [Mass/Vol] 9.1 mg/dL 8.4 - 10. 4 mg/dL [facility] Chloride [Moles/Vol] 108 mmol/L High 98 - 10 7 mmol/L [facility] CO2 [Moles/Vol] 19 mmol/L Low 22 - 30 mmol/L [facility] Creatinine [Mass/Vol] 1.17 mg/dL High 0.52 - 1.04 mg/dL [facility] GFR/1.73 sq M.predicted (S/P/Bld) [Vol rate/Area] 46.4 mL/min Low - PINF [facility] Comment on above: Calculation based on the Chronic Kidney Disease Epidemiology Collaboration (CKD-EPI) equation refit without adjustment for race Glucose [Mass/Vol] 121 mg/dL High 70 - 100 mg/dL [facility] Interpretation and review of laboratory results Abnormal [facility] Potassium [Moles/Vol] 4.4 mmol/L 3.5 - 5.1 mmol/L [facility] Sodium [Moles/Vol] 134 mmol/L Low 135 - 145 mmol/L [facility] Urea nitrogen [Mass/Vol] 31 mg/dL High 7 - 17 mg/dL [facility] CBC (HEMOGRAM)on 12-26-2023 Erythrocyte distribution width (RBC) [Ratio] 13.3 % Normal 11.5-15.0 [facility] Comment on above: Performed By: #### L [id number] ####Prompt Care Rn: AIDE RUEDA ([id number])[facility])[address] [place], [place] [address] Hematocrit (Bld) [Volume fraction] 43.0 % Normal 35.0-47.0 [facility] Comment on above: Performed By: #### L [id number] ####Prompt Care Rn: AIDE RUEDA ([id number])[facility])[address] [place] [address] Hemoglobin (Bld) [Mass/Vol] 14.0 g/dL Normal 11.7-16.0 [facility] Comment on above: Performed By: #### L [id number] ####Prompt Care Rn: AIDE RUEDA ([id number])[facility])[address] [place] [address] MCH (RBC) [Entitic mass] 31.9 pg Normal 26.0-34.0 [facility] Comment on above: Performed By: #### L [id number] ####Prompt Care Rn: AIDE RUEDA ([id number])[facility])[address] [place] [address] MCHC 32.6 % Normal 30.5-36.0 [facility] Comment on above: Performed By: #### L [id number] ####Prompt Care Rn: AIDE RUEDA ([id number])[facility])[address] [place] [address] MCV (RBC) [Entitic vol] 97.9 fL Normal 77.0-99.0 [facility] Comment on above: Performed By: #### L [id number] ####Prompt Care Rn: AIDE RUEDA ([id number])[facility])[address] [place] [address] Platelet mean volume (Bld) [Entitic vol] 12.4 fL Normal 9.0-12.7 [facility] Comment on above: Performed By: #### L [id number] ####Prompt Care Rn: AIDE RUEDA ([id number])[facility] ([facility])[address] [place] [address] Platelets (Bld) [#/Vol] 154 10*3/uL Normal 140-440 [facility] Comment on above: Performed By: #### L [id number] ####Prompt Care Rn: AIDE RUEDA ([id number])[facility] ([facility])[address] [place] [address] RBC (Bld) [#/Vol] 4.39 10*6/uL Normal 3.80-5.20 [facility] Comment on above: Performed By: #### L [id number] ####Prompt Care Rn: AIDE RUEDA ([id number])[facility] ([facility])[address] [place] [address] WBC (Bld) [#/Vol] 11.6 10*3/uL High 3.6-10.7 [facility] Comment on above: Performed By: #### L [id number] ####Prompt Care Rn: AIDE RUEDA ([id number])[facility] ([facility])[address] [place] [address] CBC panel Auto (Bld)on 12-25 Erythrocyte distribution width (RBC) [Ratio] 13.3 % 11.5 - 15.0 % [facility] Hematocrit (Bld) [Volume fraction] 43.0 % 35.0 - 47.0 % [facility] Hemoglobin (Bld) [Mass/Vol] 14.0 g/dL 11.7 - 16.0 g/dL [facility] Interpretation and review of laboratory results Abnormal [facility] MCH (RBC) [Entitic mass] 31.9 pg 26.0 - 34.0 pg [facility] MCHC (RBC) [Mass/Vol] 32.6 % 30.5 - 36.0 % [facility] MCV (RBC) [Entitic vol] 97.9 fL 77.0 - 99.0 fL [facility] Platelet mean volume (Bld) [Entitic vol] 12.4 fL 9.0 - 12.7 fL [facility] Platelets (Bld) [#/Vol] 154 10*3/uL 140 - 440 10*3/uL [facility] [employer] RBC (Bld) [#/Vol] 4.39 10*6/uL 3.80 - 5.2 0 10*6/uL [facility] [employer] WBC (Bld) [#/Vol] 11.6 10*3/uL High 3.6 - 10.7 10*3/uL [facility] ECG 12-LEADon 12-26-2023 ECG 12-LEAD IMPRESSION: Atrial fibrillation with slow ventricular rate Repol abnrm suggests ischemia, diffuse leads Electronically Signed On 12-26-2023 16:26:55 EDT by Austin Carmona [facility] No Panel InformationOrdered By: Austin Carmona on 12-26-2023 P [place] 0 degrees [facility] Work Phone: NC Interval 0 ms [facility] Work Phone: QRS [place] 48 degrees [facility] Work Phone: QRSD Interval 103 ms [facility] Work Phone: QT Interval [address] [facility] Work Phone: QTC Interval 404 ms [facility] Work Phone: T Wave [place] -74 degrees [facility] Work Phone: [email or web address] Work Phone: No Panel Informationon 12-25 Atrial fibrillation with slow ventricular rate Repol abnrm suggests ischemia, diffuse leads Electronically Signed On 12-26-2023 16:26:55 EDT by Austin Carmona Austin Kruger MD - 12/26/2023 IMPRESSION: Atrial fibrillation with slow ventricular rate Repol abnrm suggests ischemia, diffuse leads Electronically Signed On 12-26-2023 16:26:55 EDT by Austin Carmona [facility] P [place] [address] [facility] [place] Interval [address] [facility] QRS [place] [address] [facility] QRSD Interval 112 ms [facility] QT Interval [address] [facility] QTC Interval 405 ms [facility] T Wave [place] 230 degrees [facility] Austin Carmona MD - 12/26/2023 IMPRESSION: Atrial fibrillation Poor R wave progression, CONSIDER ANTERIOR INFARCT ST and T abnormality Electronically Signed On 12-26-2023 09:21:43 EDT by Austin Carmona [facility] Nursing Noteon 12-26-2023 Nursing Note Discharge instructions given to patient and daughter. Patient verbalizes understanding of medication changes and follow up appointments, and activity restrictions. Discharged to home with daughter. Normal [facility] US Heart TransthoracicOrdere d By: Christopher Ruggiero on 12-26-2023 Ao Root [facility].47 [facility]: Aortic Root 3.1 cm [facility] Work Phone: Aortic Sinus Valsalva 3.1 cm [facility] Work Phone: Aortic Sinus Valsalva Index 1.47 cm/m2 [facility] Work Phone: Ascending Aorta 3.6 cm [facility] Work Phone: Ascending Aorta Index 1.71 cm/m2 [facility] Work Phone: AV Area by Peak Velocity 0.6 cm2 [facility] Work Phone: AV Area by VTI 1.3 cm2 [facility] Work Phone: AV AT 75.0 ms [facility] Work Phone: AV Mean Gradient 21 mmHg [facility] Work Phone: AV Mean Velocity 2.8 m/s [facility] Work Phone: AV Peak Gradient 36 mmHg [facility] Work Phone: AV Peak Velocity 3.0 m/s [facility] Work Phone: AV Velocity Ratio 0.27 [facility] Work Phone: AV VTI 71.0 cm [facility] Work Phone: RAMÓN/BSA Peak Velocity 0.3 cm2/m2 [facility] Work Phone: RAMÓN/BSA VTI 0.6 cm2/m2 [facility] [employer] Work Phone: E/E' Lateral 11.25 [facility] [employer] Work Phone: E/E' Ratio (Averaged) 16.88 [facility] [employer] Work Phone: E/E' Septal 22.50 [facility] [employer] Work Phone: EF BP 36 % Abnormal 55 - 100 % [facility] [employer] Work Phone: Est. RA Pressure [address] [facility] Work Phone: Fractional Shortening 2D 29 % 28 - 44 % [facility] [employer] Work Phone: Interpretation and review of laboratory results Abnormal [facility] [employer] Work Phone: IVC Diameter 2.[address] [facility] [employer] Work Phone: IVSd 1.4 cm Abnormal 0.6 - 0.[address] [facility] [employer] Work Phone: LA Diameter 4.[address] [facility] [employer] Work Phone: LA Size Index 2.32 cm/m2 [facility] [employer] Work Phone: LA Volume 2C 111 mL Abnormal 22 - [address] [facility] [employer] Work Phone: LA Volume 4C 131 mL Abnormal 22 - [address] [facility] [employer] Work Phone: LA Volume A/L 137 mL [facility] [employer] Work Phone: LA Volume BP 127 mL Abnormal 22 - [address] [facility] [employer] Work Phone: LA Volume Index 2C 53 mL/m2 Abnormal 16 - 34 mL/m2 [facility] [employer] Work Phone: LA Volume Index 4C 62 mL/m2 Abnormal 16 - 34 mL/m2 [facility] [employer] Work Phone: LA Volume Index A/L 65 mL/m2 16 - 34 mL/m2 [facility] [employer] Work Phone: LA Volume Index BP 60 ml/m2 Abnormal 16 - 34 ml/m2 [facility] [employer] Work Phone: LA/AO Root Ratio 1.58 [facility] Work Phone: LV E' Lateral Velocity 8 cm/s [facility] Work Phone: LV E' Septal Velocity 4 cm/s [facility] Work Phone: LV EDV A2C [address] [facility] Work Phone: LV EDV A4C [address] [facility] Work Phone: LV EDV BP 148 mL Abnormal 56 - [address] [facility] Work Phone: LV EDV Index A2C 65 mL/m2 [facility] Work Phone: LV EDV Index A4C 69 mL/m2 [facility] Work Phone: LV EDV Index BP 70 mL/m2 [facility] Work Phone: LV Ejection Fraction A2C 36 % [facility] Work Phone: LV Ejection Fraction A4C 35 % [facility] Work Phone: LV ESV A2C [address] [facility] Work Phone: LV ESV A4C [address] [facility] Work Phone: LV ESV BP 95 mL Abnormal 19 - [address] [facility] Work Phone: LV ESV Index A2C 42 mL/m2 [facility] Work Phone: LV ESV Index A4C 45 mL/m2 [facility] Work Phone: LV ESV Index BP 45 mL/m2 [facility] Work Phone: LV Mass 2D 355.3 g Abnormal 67 - [address] [facility] Work Phone: LV Mass 2D Index 168.4 g/m2 Abnormal 43 - 95 g/m2 [facility] Work Phone: LV RWT Ratio 0.55 [facility] Work Phone: LVIDd 5.5 cm Abnormal 3.9 - 5.[address] [facility] Work Phone: LVIDd Index 2.61 cm/m2 [facility] Work Phone: LVIDs 3.9 cm [facility] Work Phone: LVIDs Index 1.85 cm/m2 [facility] Work Phone: LVOT Area 4.2 cm2 [facility] Work Phone: LVOT Cardiac Output 3.1 liter/mi nut e [facility] Work Phone: LVOT Diameter 2.[address] [facility] Work Phone: LVOT Mean Gradient 2 mmHg [facility] Work Phone: LVOT Peak Gradient [address] [facility] Work Phone: LVOT Peak Velocity 0.8 m/s [facility] Work Phone: LVOT Stroke Volume Index 45.3 mL/m2 [facility] Work Phone: LVOT SV 95.[address] [facility] Work Phone: LVOT VTI 23.0 cm [facility] Work Phone: LVOT:AV VTI Index 0.32 [facility] e[facility] Work Phone: LVPWd 1.5 cm Abnormal 0.6 - 0.[address] [facility] Work Phone: MR VTI 167.[address] [facility] Work Phone: MV A Velocity 0.53 m/s [facility] Work Phone: MV Area by PHT 3.0 cm2 [facility] Work Phone: MV Area by VTI 2.1 cm2 [facility] Work Phone: MV E Velocity 0.90 m/s [facility] Work Phone: MV E Wave Deceleration Time 149.3 ms [facility] Work Phone: MV E/A 1.70 [facility] Work Phone: MV Max Velocity 1.2 m/s [facility] Work Phone: MV Mean Gradient 2 mmHg [facility] Work Phone: MV Mean Velocity 0.6 m/s [facility] Work Phone: MV Nyquist Velocity 30 cm/s [facility] Work Phone: MV Peak Gradient 6 mmHg [facility] Work Phone: MV PHT 73.0 ms [facility] Work Phone: MV Regurg Velocity PISA 5.3 m/s S [facility] Work Phone: MV VTI 46.[address] [facility] Work Phone: MV:LVOT VTI Index 2.02 [facility] Work Phone: RA Area 4C 65.2 mL [facility] Work Phone: RV Basal Dimension 3.[address] [facility] Work Phone: RV Free Wall Peak S' 9 cm/s [facility] Work Phone: RV Mid Dimension 1.[address] [facility] Work Phone: RVSP [address] [facility] Work Phone: Sinotubular Junction 2.5 cm [facility] Work Phone: TAPSE 1.[address] [facility] Work Phone: TR Max Velocity 3.10 m/s [facility] Work Phone: [facility] Work Phone: Heart Transthoracicon Left [...] on 12-26-2023 Heart rate 37 /min bpm [employer] Work Phone: Vital signson 12-26-2023 Heart rate 51 /min bpm [employer] BASIC METABOLIC PANELon 10-0 Anion gap [Moles/Vol] 9 mmol/L Normal 3-13 [facility] Comment on above: Performed By: #### L AB15 ####Prompt Care Rn: AIDE RUEDA ([id number])[facility])[address] [place] [address] Calcium [Mass/Vol] 8.5 mg/dL Normal 8.4-10.4 [facility] Comment on above: Performed By: #### L AB15 ####Prompt Care Rn: AIDE RUEDA ([id number])[facility] ([facility])[address] [place] [address] Chloride [Moles/Vol] 113 mmol/L High 98-107 [facility] Comment on above: Performed By: #### L AB15 ####Prompt Care Rn: AIDE RUEDA ([id number])[facility])[address] [place] [address] CO2 [Moles/Vol] 19 mmol/L Low 22-30 [facility] Comment on above: Performed By: #### L AB15 ####Prompt Care Rn: AIDE RUEDA ([id number])[facility])[address] [place] [address] Creatinine [Mass/Vol] 1.09 mg/dL High 0.52-1.04 [facility] Comment on above: Performed By: #### L AB15 ####Prompt Care Rn: AIDE RUEDA ([id number])[facility])[address] [place] [address] GLOMERULAR FILTRATION RATE ML/MIN/1.73 SQ M.PREDICTED 50.5 mL/min/1.73m*2 Low >60.0 [facility] Comment on above: Result Comment: Calc ulation based on the Chronic Kidney Disease Epidemiology Collaboration (CKD-EPI) equation refit without adjustment for race ORDER COMMENTS: Slightly Hemolyzed. Interpret {TESTS AFFECTED BY SLIGHT HEMOLYSIS:61715} with caution. Performed By: #### L AB15 ####Prompt Care Rn: AIDE RUEDA ([id number])[facility])[address] [place] [address] Glucose [Mass/Vol] 148 mg/dL High 70-100 [facility] Comment on above: Performed By: #### L AB15 ####Prompt Care Rn: AIDE RUEDA ([id number])[facility] ([facility])[address] [place] [address] Potassium [Moles/Vol] 4.7 mmol/L Normal 3.5-5.1 [facility] Comment on above: Performed By: #### L AB15 ####Prompt Care Rn: AIDE RUEDA ([id number])[facility] ([facility])[address] [place] [address] Sodium [Moles/Vol] 141 mmol/L Normal 135-145 [facility] Comment on above: Performed By: #### L AB15 ####Prompt Care Rn: AIDE RUEDA ([id number])[facility] ([facility])[address] [place] [address] Urea nitrogen [Mass/Vol] 28 mg/dL High 7-17 [facility] Comment on above: Performed By: #### L AB15 ####Prompt Care Rn: AIDE RUEDA ([id number])[facility] ([facility])[address] [place] [address] BLOOD TYPE AND SCREEN GELon 12-25-2023 ABO GROUPING O Normal [facility] Comment on above: Performed By: #### L [id number] #### Prompt Care Rn: AIDE RUEDA ([id number]) [facility] ([facility]) [address] [place] [address] RH TYPE IN BLOOD Positive Normal [facility] Comment on above: Performed By: #### L [id number] #### Prompt Care Rn: AIDE RUEDA ([id number]) [facility] ([facility]) [address] [place] [address] [place] Basic metabolic 1998 panelon 12-25-2023 Anion gap [Moles/Vol] 9 mmol/L 3 - 13 mmol/L [facility] Calcium [Mass/Vol] 8.5 mg/dL 8.4 - 10. 4 mg/dL [facility] Chloride [Moles/Vol] 113 mmol/L High 98 - 10 7 mmol/L [facility] CO2 [Moles/Vol] 19 mmol/L Low 22 - 30 mmol/L [facility] Creatinine [Mass/Vol] 1.09 mg/dL High 0.52 - 1.04 mg/dL [facility] GFR/1.73 sq M.predicted (S/P/Bld) [Vol rate/Area] 50.5 mL/min Low - PINF [facility] Comment on above: Calculation based on the Chronic Kidney Disease Epidemiology Collaboration (CKD-EPI) equation refit without adjustment for race Glucose [Mass/Vol] 148 mg/dL High 70 - 100 mg/dL [facility] Interpretation and review of laboratory results Abnormal [facility] Potassium [Moles/Vol] 4.7 mmol/L 3.5 - 5.1 mmol/L [facility] Sodium [Moles/Vol] 141 mmol/L 135 - 145 mmol/L [facility] Urea nitrogen [Mass/Vol] 28 mg/dL High 7 - 17 mg/dL [facility] Slightly Hemolyzed. Interpret {TESTS AFFECTED BY SLIGHT HEMOLYSIS:32101} with caution. [facility] Blood type and Crossmatch pa justin (Bld)on 12-25-2023 ABO group Nom (Bld) O [facility] Blood group antibody screen GEL Ql Negative [facility] D Ag Ql (RBC) [facility] CBC (HEMOGRAM)on 12-25-2023 Erythrocyte distribution width (RBC) [Ratio] 13.3 % Normal 11.5-15.0 [facility] Comment on above: Performed By: #### L [id number] ####Prompt Care Rn: AIDE RUEDA ([id number])[address] Hematocrit (Bld) [Volume fraction] 39.5 % Normal 35.0-47.0 [facility] Comment on above: Performed By: #### L [id number] ####Prompt Care Rn: AIDE RUEDA ([id number])[facility])[address] [place] [address] Hemoglobin (Bld) [Mass/Vol] 13.0 g/dL Normal 11.7-16.0 [facility] Comment on above: Performed By: #### L [id number] ####Prompt Care Rn: AIDE RUEDA ([id number])[facility])[address] [place] [address] MCH (RBC) [Entitic mass] 31.9 pg Normal 26.0-34.0 [facility] Comment on above: Performed By: #### L [id number] ####Prompt Care Rn: AIDE RUEDA ([id number])[facility])[address] [place] [address] MCHC 32.9 % Normal 30.5-36.0 [facility] Comment on above: Performed By: #### L [id number] ####Prompt Care Rn: AIDE RUEDA ([id number])[facility])[address] [place] [address] MCV (RBC) [Entitic vol] 97.1 fL Normal 77.0-99.0 [facility] Comment on above: Performed By: #### L [id number] ####Prompt Care Rn: AIDE RUEDA ([id number])[facility])[address] [place] [address] Platelet mean volume (Bld) [Entitic vol] 12.2 fL Normal 9.0-12.7 [facility] Comment on above: Performed By: #### L [id number] ####Prompt Care Rn: AIDE RUEDA ([id number])[facility])[address] [place] [address] Platelets (Bld) [#/Vol] 140 10*3/uL Normal 140-440 [facility] Comment on above: Performed By: #### L [id number] ####Prompt Care Rn: AIDE RUEDA ([id number])[facility])[address] [place] [address] RBC (Bld) [#/Vol] 4.07 10*6/uL Normal 3.80-5.20 [facility] Comment on above: Performed By: #### L [id number] ####Prompt Care Rn: AIDE RUEDA ([id number])[facility] ([facility])[address] [place] [address] WBC (Bld) [#/Vol] 9.1 10*3/uL Normal 3.6-10.7 [facility] Comment on above: Performed By: #### L [id number] ####Prompt Care Rn: AIDE RUEDA ([id number])[facility] ([facility])[address] [place] [address] CBC panel Auto (Bld)on 12-24 Erythrocyte distribution width (RBC) [Ratio] 13.3 % 11.5 - 15.0 % [facility] Hematocrit (Bld) [Volume fraction] 39.5 % 35.0 - 47.0 % [facility] Hemoglobin (Bld) [Mass/Vol] 13.0 g/dL 11.7 - 16.0 g/dL [facility] Interpretation and review of laboratory results Normal [facility] MCH (RBC) [Entitic mass] 31.9 pg 26.0 - 34.0 pg [facility] MCHC (RBC) [Mass/Vol] 32.9 % 30.5 - 36.0 % [facility] MCV (RBC) [Entitic vol] 97.1 fL 77.0 - 99.0 fL [facility] Platelet mean volume (Bld) [Entitic vol] 12.2 fL 9.0 - 12.7 fL [facility] Platelets (Bld) [#/Vol] 140 10*3/uL 140 - 440 10*3/uL [facility] RBC (Bld) [#/Vol] 4.07 10*6/uL 3.80 - 5.2 0 10*6/uL [facility] WBC (Bld) [#/Vol] 9.1 10*3/uL 3.6 - 10.7 10*3/uL [facility] Cardiac catheterization stud yon 12-25-2023 Successful [id number] TAVR with a 23mm soumya S3u, via [...] Via the left femoral vein, a 6 Burkinan sheath was placed and temporary pacing wire was placed into the RV apex with appropriate capture, in addition sterile tubing was attached and given the anesthesia for central access. Via right radial artery, a 6-Burkinan sheath was placed and the pigtail catheter was placed into the aortic annulus with confirmation the implant angle. Via the left femoral artery, a 6-Burkinan sheath was placed. The patient was then heparinized. Next, two Perclose devices were used using the pre-close strategy. A Super Stiff wire was then placed through the second Perclose into the descending aorta. Then, a 14-Burkinan Soumya E-sheath was introduced over the wire [...] your patient while hospitalized at [facility]. I will continue to follow along while hospitalized. Please do not hesitate to call with any questions. [facility] [employer] No Panel Informationon 12-24 Blood Expiration Date S [facility] [employer] Blood Expiration Date S [facility] [employer] Crossmatch interpretation COMP [email or web address] Dispense Status Crossmatch [email or web address] Screamin [facility] Product Blood Type 5100 [employer] PRODUCT CODE [id number] [employer] PRODUCT CODE [id number] [email or web address] Unit ABO O [employer] Unit Number [id number] [email or web address] He alth Unit Number [id number] [facility] Screamin Daily Deals alth Unit RH Positive [facility] [employer] Unit Volume [address] [facility] [employer] Op Noteon 12-25-2023 Op Note Date of [...] The valve was passed through the 14 Burkinan sapient E sheath into the descending thoracic [...] was decannulated transferred stable to recovery. Normal [facility] US Heart TransthoracicOrdere d By: Otto Fernandez on 12-25-2023 AV Area (Pre-TAVR) 0.3 cm2 [facility] Work Phone: AV Area by Peak Velocity 0.7 cm2 [facility] Work Phone: AV Area by VTI 0.7 cm2 [facility] Work Phone: AV Mean Gradient 14 mmHg [facility] Work Phone: AV Mean Gradient (Pre-TAVR) 59 mmHg [facility] Work Phone: AV Mean Velocity 1.7 m/s [facility] Work Phone: AV Peak Gradient 25 mmHg [facility] Work Phone: AV Peak Gradient (Pre-TAVR) 93 mmHg [facility] Work Phone: AV Peak Velocity 2.5 m/s [facility] Work Phone: AV Peak Velocity (Pre-TAVR) 4.8 m/s [facility] Work Phone: AV Velocity Ratio 0.20 [facility] Work Phone: AV VTI 60.2 cm [facility] Work Phone: RAMÓN/BSA Peak Velocity 0.3 cm2/m2 [facility] Work Phone: RAMÓN/BSA VTI 0.3 cm2/m2 [facility] Work Phone: Est. RA Pressure 3 mmHg [facility] [facility] Work Phone: LVOT Area 3.1 cm2 [facility] Work Phone: LVOT Cardiac Output 1.6 liter/mi nut e [facility] Work Phone: LVOT Diameter 2.[address] [facility] Work Phone: LVOT Mean Gradient 1 mmHg [facility] Work Phone: LVOT Peak Gradient 1 mmHg [facility] Work Phone: LVOT Peak Velocity 0.5 m/s [facility] Work Phone: LVOT Stroke Volume Index 20.6 mL/m2 [facility] [employer] Work Phone: LVOT SV 42.7 ml [facility] Work Phone: LVOT VTI 13.6 cm [facility] Work Phone: LVOT:AV VTI Index 0.23 [facility] Work Phone: RVSP [address] [facility] Work Phone: TR Max Velocity 3.45 m/s [facility] Work Phone: TR Peak Gradient [address] [facility] Work Phone: [facility] Work Phone: Heart Transthoracicon Aortic Valve: [...] TAVR [facility] 1940 [id number] Exam Date/Time: 12/12/2023 10:40 Procedure: CT ANGIOGRAM [...] 12/22/2023 11:10 AM EDT --------ORIGINAL REPORT -------- [facility] CTA Indication: 83 year-old woman with severe aortic stenosis, being evaluated for transcatheter aortic valve implantation. Technique: Computed tomography of the heart, thoracoabdominal aorta, and iliofemoral system was performed using a [employer] Aquilion One 320 detector scanner. Images were [...] VELEZ MEGGAN Reason For Exam: aortic stenosis [facility] CTA Indication: 83 year-old woman with severe aortic stenosis, being evaluated for transcatheter aortic valve implantation. Technique: Computed tomography of the heart, thoracoabdominal aorta, and iliofemoral system was performed usi (more content not included)... Normal [facility] 36on 12-21-2023 36 Patient has stage 3 b- 4 CKD, stable compared to previous. OK to proceed. [facility] 36 BMP received, reviewed, WHIT to enter, Creat 1.9 GFR 27. Teofilo David CNP to review. [facility] 36 I called [facility] for BMP, left message w/ OP lab to fax results. [place] 3542412-18-2023 36 I can not make any changes or cx the No Show b/c it's past. [place] 3542412-16-2023 36 Name of caller: Brianne Contact phone number: [phone] Relationship to Patient: patient Provider: Mónica VOGEL Practice: [facility] Chief Complaint/Reason for Call: Patient had [...] to return their call: N/A [place] [id number] 36 Lab order faxed to [facility] [phone]/[address] 12-14-2023 36 Per Teofilo David DNP, will get BMP done on 12/19/23 in [place], RX for Prednisone pended. [place] to fax lab order to [facility], pt notified via phone and verbalizes understanding. [address] 12-13-2023 36 Pt returned my call, no further issues w/ itching/hives from contrast allergy. I reviewed need for BMP and Prednisone before TAVR. Of note, pt was unaware of any renal insufficiency in the past. Will discuss timing of BMP w/ Teofilo David DNP. [facility] 36 Per Teofilo David DNP, pt had allergic reaction to CTA contrast yesterday, and pt with increase in Creat. Plan for Dye Allergy Prep meds will be needed, and repeat BMP. I left vm message for pt to return call. Normal [facility] BLOOD TYPE AND SCREEN GELon 12-12-2023 ABO GROUPING O Normal [facility] Comment on above: Performed By: #### L [id number] ####Prompt Care Rn: AIDE RUEDA ([id number])[facility] ([facility])[address] [place] [address] RH TYPE IN BLOOD Positive Normal [facility] Comment on above: Performed By: #### L [id number] ####Prompt Care Rn: AIDE RUEDA ([id number])[facility] ([facility])[address] [place] [address] Blood type and Crossmatch pa justin (Bld)on 12-12-2023 ABO group Nom (Bld) O [facility] Blood group antibody screen GEL Ql Negative [facility] D Ag Ql (RBC) Positive [facility] CBC W Auto Differential pane l (Bld)on 12-12-2023 Basophils (Bld) [#/Vol] 0.1 10*3/uL 0.0 - 0.2 10*3/uL [facility] Basophils/100 WBC (Bld) 1.3 % 0.0 - 2.0 % [facility] Eosinophils (Bld) [#/Vol] 0.1 10*3/uL 0.0 - 0.5 10*3/uL [facility] Eosinophils/100 WBC (Bld) 2.0 % 0.0 - 6.0 % [facility] Erythrocyte distribution width (RBC) [Ratio] 13.1 % 11.5 - 15.0 % [facility] Hematocrit (Bld) [Volume fraction] 48.1 % High 35.0 - 47.0 % [facility] Hemoglobin (Bld) [Mass/Vol] 16.0 g/dL 11.7 - 16.0 g/dL [facility] Immature granulocytes (Bld) [#/Vol] 0.1 10*3/uL High NINF - 0.1 10*3/uL [facility] Immature granulocytes/100 WBC (Bld) 0.7 % 0.0 - 2.0 % [facility] Interpretation and review of laboratory results Abnormal [facility] Lymphocytes (Bld) [#/Vol] 1.6 10*3/uL 1.0 - 4.3 10*3/uL [facility] Lymphocytes/100 WBC (Bld) 23.0 % 15.0 - 45.0 % [facility] MCH (RBC) [Entitic mass] 31.7 pg 26.0 - 34.0 pg [facility] MCHC (RBC) [Mass/Vol] 33.3 % 30.5 - 36.0 % [facility] MCV (RBC) [Entitic vol] 95.2 fL 77.0 - 99.0 fL [facility] Monocytes (Bld) [#/Vol] 1.0 10*3/uL High 0.0 - 0.9 10*3/uL [facility] Monocytes/100 WBC (Bld) 14.2 % High 5.0 - 13.0 % [facility] Neutrophils (Bld) [#/Vol] 4.0 10*3/uL 1.8 - 7.5 10*3/uL [facility] Neutrophils/100 WBC (Bld) 58.8 % 38.0 - 82.0 % [facility] Nucleated RBC/100 WBC (Bld) [Ratio] 0.0 % [facility] Platelet mean volume (Bld) [Entitic vol] 13.0 fL High 9.0 - 12.7 fL [facility] Platelets (Bld) [#/Vol] 194 10*3/uL 140 - 440 10*3/uL [facility] RBC (Bld) [#/Vol] 5.05 10*6/uL 3.80 - 5.2 0 10*6/uL [facility] WBC (Bld) [#/Vol] 6.9 10*3/uL 3.6 - 10.7 10*3/uL [facility] CBC WITH AUTO DIFFERENTIALon 12-12-2023 Basophils (Bld) [#/Vol] 0.1 10*3/uL Normal 0.0-0.2 [facility] Comment on above: Performed By: #### L [id number] ####Prompt Care Rn: AIDE RUEDA ([id number])[address] Basophils/100 WBC (Bld) 1.3 % Normal 0.0-2.0 S [facility] Comment on above: Performed By: #### L [id number] ####Prompt Care Rn: AIDE RUEDA ([id number])[facility])[address] [place] [address] Eosinophils (Bld) [#/Vol] 0.1 10*3/uL Normal 0.0-0.5 [facility] Comment on above: Performed By: #### L [id number] ####Prompt Care Rn: AIDE RUEDA ([id number])[facility] ([facility])[address] [place] [address] Eosinophils/100 WBC (Bld) 2.0 % Normal 0.0-6.0 [facility] Comment on above: Performed By: #### L [id number] ####Prompt Care Rn: AIDE RUEDA ([id number])[facility])[address] [place] [address] Erythrocyte distribution width (RBC) [Ratio] 13.1 % Normal 11.5-15.0 [facility] Comment on above: Performed By: #### L [id number] ####Prompt Care Rn: AIDE RUEDA ([id number])[facility])[address] [place] [address] Hematocrit (Bld) [Volume fraction] 48.1 % High 35.0-47.0 [facility] Comment on above: Performed By: #### L [id number] ####Prompt Care Rn: AIDE RUEDA ([id number])[facility])[address] [place] [address] Hemoglobin (Bld) [Mass/Vol] 16.0 g/dL Normal 11.7-16.0 [facility] Comment on above: Performed By: #### L [id number] ####Prompt Care Rn: AIDE RUEDA ([id number])[facility])[address] [place] [address] IMMATURE GRANS % 0.7 % Normal 0.0-2.0 [facility] Comment on above: Performed By: #### L [id number] ####Prompt Care Rn: AIDE RUEDA ([id number])[facility])[address] [place] [address] IMMATURE GRANS ABSOLUTE 0.1 10*3/uL High <0.1 [facility] Comment on above: Performed By: #### L [id number] ####Prompt Care Rn: AIDE RUEDA ([id number])[facility])[address] [place] [address] Lymphocytes (Bld) [#/Vol] 1.6 10*3/uL Normal 1.0-4.3 [facility] Comment on above: Performed By: #### L [id number] ####Prompt Care Rn: AIDE RUEDA ([id number])[address] Lymphocytes/100 WBC (Bld) 23.0 % Normal 15.0-45.0 [facility] Comment on above: Performed By: #### L [id number] ####Prompt Care Rn: AIDE RUEDA ([id number])[facility])[address] [place] [address] MCH (RBC) [Entitic mass] 31.7 pg Normal 26.0-34.0 [facility] Comment on above: Performed By: #### L [id number] ####Prompt Care Rn: AIDE RUEDA ([id number])[facility])[address] [place] [address] MCHC 33.3 % Normal 30.5-36.0 [facility] Comment on above: Performed By: #### L [id number] ####Prompt Care Rn: AIDE RUEDA ([id number])[facility])[address] [place] [address] MCV (RBC) [Entitic vol] 95.2 fL Normal 77.0-99.0 S [facility] Comment on above: Performed By: #### L [id number] ####Prompt Care Rn: AIDE RUEDA ([id number])[facility])[address] [place] [address] Monocytes (Bld) [#/Vol] 1.0 10*3/uL High 0.0-0.9 [facility] Comment on above: Performed By: #### L [id number] ####Prompt Care Rn: AIDE RUEDA ([id number])[facility] ([facility])[address] [place] [address] Monocytes/100 WBC (Bld) 14.2 % High 5.0-13.0 [facility] Comment on above: Performed By: #### L [id number] ####Prompt Care Rn: AIDE RUEDA ([id number])[facility] ([facility])[address] [place] [address] NEUTROPHILS ABSOLUTE 4.0 10*3/uL Normal 1.8-7.5 [facility] Comment on above: Performed By: #### L [id number] ####Prompt Care Rn: AIDE RUEDA ([id number])[facility] ([facility])[address] [place] [address] Neutrophils/100 WBC (Bld) 58.8 % Normal 38.0-82.0 [facility] Comment on above: Performed By: #### L [id number] ####Prompt Care Rn: AIDE RUEDA ([id number])[facility] ([facility])[address] [place] [address] NRBC 0.0 /100 WBCs Normal 0.0-2.0 [facility] Comment on above: Performed By: #### L [id number] ####Prompt Care Rn: AIDE RUEDA ([id number])[facility] ([facility])[address] [place] [address] Platelet mean volume (Bld) [Entitic vol] 13.0 fL High 9.0-12.7 [facility] Comment on above: Performed By: #### L [id number] ####Prompt Care Rn: AIDE RUEDA ([id number])[facility] ([facility])[address] [place] [address] [place] Platelets (Bld) [#/Vol] 194 10*3/uL Normal 140-440 [facility] Comment on above: Performed By: #### L [id number] ####Prompt Care Rn: AIDE RUEDA ([id number])[facility])[address] [place] [address] RBC (Bld) [#/Vol] 5.05 10*6/uL Normal 3.80-5.20 [facility] Comment on above: Performed By: #### L [id number] ####Prompt Care Rn: AIDE RUEDA ([id number])[facility])[address] [place] [address] WBC (Bld) [#/Vol] 6.9 10*3/uL Normal 3.6-10.7 [facility] Comment on above: Performed By: #### L [id number] ####Prompt Care Rn: AIDE RUEDA ([id number])[facility])[address] [place] [address] COMPREHENSIVE METABOLIC PANE [place] 12-12-2023 Albumin [Mass/Vol] 4.1 g/dL Normal 3.5-5.0 [facility] Comment on above: Performed By: #### L [id number], LAB17 ####Prompt Care Rn: AIDE RUEDA ([id number])[facility])[address] [place] [address] ALP [Catalytic activity/Vol] 70 U/L Normal 38-126 [facility] Comment on above: Performed By: #### L AB106, LAB17 ####Prompt Care Rn: AIDE RUEDA ([id number])[facility])[address] [place] [address] ALT [Catalytic activity/Vol] 18 U/L Normal 0-34 [facility] Comment on above: Performed By: #### L [id number], LAB17 ####Prompt Care Rn: AIDE RUEDA ([id number])[facility])[address] [place] [address] Anion gap [Moles/Vol] 11 mmol/L Normal 3-13 [facility] Comment on above: Performed By: #### L AB106, LAB17 ####Prompt Care Rn: AIDE RUEDA ([id number])[facility] ([facility])[address] [place] [address] AST [Catalytic activity/Vol] 52 U/L High 15-46 [facility] Comment on above: Performed By: #### L AB106, LAB17 ####Prompt Care Rn: AIDE RUEDA ([id number])[facility] ([facility])[address] [place] [address] Bilirubin [Mass/Vol] 1.0 mg/dL Normal 0.2-1.3 [facility] Comment on above: Performed By: #### L AB106, LAB17 ####Prompt Care Rn: AIDE RUEDA ([id number])[facility] ([facility])[address] [place] [address] Calcium [Mass/Vol] 9.3 mg/dL Normal 8.4-10.4 [facility] Comment on above: Performed By: #### L AB106, LAB17 ####Prompt Care Rn: AIDE RUEDA ([id number])[facility] ([facility])[address] [place] [address] [place] Chloride [Moles/Vol] 103 mmol/L Normal 98-107 [facility] Comment on above: Performed By: #### L AB106, LAB17 ####Prompt Care Rn: AIDE RUEDA ([id number])[facility] ([facility])[address] [place] [address] [place] CO2 [Moles/Vol] 22 mmol/L Normal 22-30 [facility] Comment on above: Performed By: #### L AB106, LAB17 ####Prompt Care Rn: AIDE RUEDA ([id number])[facility] ([facility])[address] [place] [address] [place] Creatinine [Mass/Vol] 1.95 mg/dL High 0.52-1.04 [facility] Comment on above: Performed By: #### L AB106, LAB17 ####Prompt Care Rn: AIDE RUEDA ([id number])[facility])[address] [place] [address] [place] GLOMERULAR FILTRATION RATE ML/MIN/1.73 SQ M.PREDICTED 25.1 mL/min/1.73m*2 Low >60.0 [facility] Comment on above: Result Comment: Calc ulation based on the Chronic Kidney Disease Epidemiology Collaboration (CKD-EPI) equation refit without adjustment for race ORDER COMMENTS: Slightly Hemolyzed. Interpret Potassium, Alkaline Phosphatase, and AST with caution. Performed By: #### L AB106, LAB17 ####Prompt Care Rn: AIDE RUEDA ([id number])[facility])[address] [place] [address] [place] Glucose [Mass/Vol] 107 mg/dL High 70-100 [facility] Comment on above: Performed By: #### L AB106, LAB17 ####Prompt Care Rn: AIDE RUEDA ([id number])[facility])[address] [place] [address] [place] Potassium [Moles/Vol] 4.3 mmol/L Normal 3.5-5.1 [facility] Comment on above: Performed By: #### L AB106, LAB17 ####Prompt Care Rn: AIDE RUEDA ([id number])[facility])[address] [place] [address] Protein [Mass/Vol] 7.9 g/dL Normal 6.3-8.2 [facility] Comment on above: Performed By: #### L AB106, LAB17 ####Prompt Care Rn: AIDE RUEDA ([id number])[facility])[address] [place] [address] [place] Sodium [Moles/Vol] 136 mmol/L Normal 135-145 [facility] Comment on above: Performed By: #### L AB106, LAB17 ####Prompt Care Rn: AIDE RUEDA ([id number])[facility])[address] [place] [address] [place] Urea nitrogen [Mass/Vol] 36 mg/dL High 7-17 [facility] Comment on above: Performed By: #### L AB106, LAB17 ####Prompt Care Rn: AIDE RUEDA ([id number])[facility] ([address] Comprehensive metabolic 1998 panelon 12-12-2023 Albumin [Mass/Vol] 4.1 g/dL 3.5 - 5.0 g/dL [facility] ALP [Catalytic activity/Vol] 70 U/L 38 - 126 U/L [facility] ALT [Catalytic activity/Vol] 18 U/L 0 - 34 U/L [facility] Anion gap [Moles/Vol] 11 mmol/L 3 - 13 mmol/L [facility] AST [Catalytic activity/Vol] 52 U/L High 15 - 46 U/L [facility] Bilirubin [Mass/Vol] 1.0 mg/dL 0.2 - 1 .3 mg/dL [facility] Calcium [Mass/Vol] 9.3 mg/dL 8.4 - 10. 4 mg/dL [facility] Chloride [Moles/Vol] 103 mmol/L 98 - 10 7 mmol/L [facility] CO2 [Moles/Vol] 22 mmol/L 22 - 30 mmol/L [facility] Creatinine [Mass/Vol] 1.95 mg/dL High 0.52 - 1.04 mg/dL [facility] GFR/1.73 sq M.predicted (S/P/Bld) [Vol rate/Area] 25.1 mL/min Low - PINF [facility] Comment on above: Calculation based on the Chronic Kidney Disease Epidemiology Collaboration (CKD-EPI) equation refit without adjustment for race Glucose [Mass/Vol] 107 mg/dL High 70 - 100 mg/dL [facility] Interpretation and review of laboratory results Abnormal [facility] Potassium [Moles/Vol] 4.3 mmol/L 3.5 - 5.1 mmol/L [facility] Protein [Mass/Vol] 7.9 g/dL 6.3 - 8.2 g/dL [facility] Sodium [Moles/Vol] 136 mmol/L 135 - 145 mmol/L [facility] Urea nitrogen [Mass/Vol] 36 mg/dL High 7 - 17 mg/dL [facility] Slightly Hemolyzed. Interpret Potassium, Alkaline Phosphatase, and AST with caution. [facility] NT PRO BNPon 12-12-2023 Natriuretic peptide B (Bld) [Mass/Vol] 2261 pg/mL High <450 [facility] Comment on above: Performed By: #### L AB106, LAB17 ####Prompt Care Rn: AIDE RUEDA ([id number])[facility] ([facility])[address] [place] [address] Natriuretic peptide B [Mass/ Vol]Ordered By: Bob Flores on 12-12-2023 Interpretation and review of laboratory results Abnormal [facility] Natriuretic peptide B (Bld) [Mass/Vol] 2261 pg/mL High NINF - 450 pg/mL [facility] Office Visiton 12-12-2023 Follow-up visit [id number] Brianne Call 1940 F Date Provider Department Center 12/12/2023 [id number]-FDSAITMÓNICA DAVID [facility] [address] No family history on file Level of Service:13013 [place] OFFICE/OUTPATIENT ESTABLISHED MOD MDM 30 MIN Reason for Visit and Comments: Cardiac Valve Problem [1334] - Patient seen in private OP procedure area for H + P update and education prior to scheduled TAVR Normal [facility] Progress Noteon 12-12-2023 Progress Note Pts symptoms of the reaction have all gone away. Pt states she feels back to normal. Normal [facility] Progress Note [facility] [address] [facility] [address] Dept: [phone] Dept Visit type: Established : 1940 Reason [...] mm Hg. She underwent cardiac cath at [place] which showed non obstructive CAD. He kidney [...] mg 100 mg IntraVENous Once Mónica David, POWERHOUSE OPERATOR - SPECIAL EDUCATION ASSOCIATE sodium chloride 0.9 % bolus 500 mL [...] D deficiency Social (more content not included)... [facility] 12-08-2023 36 Approved [id number] 12/24-12/26/23 Calendars and Snapboard updated. [facility] 36 Messaged central scheduling through secure chat and CTA TAVR scheduled at [facility] at 11 am. [facility] 12-07-2023 36 BJennifer Currie RT is out of office until Mon12/11/23. I spoke w/ [facility] Radiology Dept, I was sent to a bricklayer supervisor , I left vm message re: add on CTA @ [facility] for 12/11. [facility] 36 I spoke w/ Katherin in CS, re: [facility] IV hydration, having difficulty with adding pt, she will speak w/ coworker and call me back. I spoke w/ Jennifer RN in POP, they have pt on their schedule. I spoke w/ patient, reviewed NPO 4 hrs prior, all questions answered. I also spoke w/ Rossana in CS, CTA needs moved to [facility]. [facility] 36on 12-06-2023 36 Hydration orders faxed,confirmed and scanned under Media Submitted auth request on [facility] Central. Pending # [id number] On all 3 calendars. [place] [address] I spoke w/ pt and dtr Shama [...] 9:15, [place] notified to schedule/PA/snap board/calendars. [facility] 36 Patient returned my call. No issues with Right radial cath site, cath performed by Dr. Garces in [place], I called to have images pushed to PACS and fax report w/ recent labs. Labs reviewed from [place], drawn 11/28/23 GFR 31 prior to cath. Teofilo Velez CNP notified to review and advise if IV hydration is needed. [place] [address] I spoke w/ Medina in Dr. Garces's office, confirmed LHC completed, she will push images to PACS and fax report & lab results. I left vm message for dtr Shama to review pt status, discuss next steps BMP/CTA. [facility] 36on 12-05-2023 36 Chart note done. I faxed it and the EKG tracings to [phone]/[place] [address] Dr. Huffman verbally notified. [facility] 36 Medina from [place] [facility] called requesting last OV note but PB has not finished yet. (11/22/23) [phone] They need the most recent EKG wave forms as well. Normal [facility] 36on 11-28-2023 36 Spoke w/ Juana @ [facility], cath scheduled for 12/04/23 w/ Dr. Garces. Normal [facility] ECG 12 lead - CLINIC PERFORM EDon 11-25-2023 Atrial fibrillation -Old anteroseptal infarct. -Diffuse nonspecific T-abnormality. ABNORMAL [facility] 36on 11-22-2023 36 Patient seen in Heart valve Clinic yesterday. Dr. Huffman spoke w/ Dr. Garces @ [facility], agreed for R/LHC to be done in [place]. I spoke w/ Maggie RN in Dr. Garces' office, asked her to call me back with cath date. Need to expedite TAVR due to pt symptoms, will need to coordinate CTA, pt does have CKD, last creat was 1.38 done 08/10 scanned in media. Normal [facility] Office Visiton 11-21-2023 Follow-up visit [id number] Brianne Call 1940 F Date Provider Department Center 11/21/2023 92433-MGXMSTHADDEUS MCKEON [facility] [address] No family history on file Level of Service:25489 [place] OFFICE/OUTPATIENT NEW MODERATE MDM 45 MINUTES Reason for Visit and Comments: Shortness of Breath [371837] Normal [facility] Follow-up visit [id number] Brianne Call 1940 F Date Provider Department Center 11/21/2023 20309-QPHBHGJUAN REED [facility] [address] No family history on file Level of Service:52801 [place] OFFICE/OUTPATIENT NEW HIGH MDM 60 MINUTES Reason for Visit and Comments: Cardiac Valve Problem [1334] Normal [facility] Follow-up visit [id number] Brianne Call 1940 F Date Provider Department Center 11/21/2023 78406-TWYUTWXYNDEXHARJEET HUFFMAN [facility] [address] No family history on file Level of Service:10361 NC OFFICE/OUTPATIENT NEW HIGH MDM 60 MINUTES Reason for Visit and Comments: Cardiac Valve Problem [1334] Normal [facility] PATINSon 11-21-2023 [facility] DISCHARGE INSTRUCTIONS: Follow-up with [facility] (phone: [phone] fax: [phone]) as needed for memory testing. Please BEGIN [...] age and increased risk of falls. Normal [facility] Progress Noteon 11-21-2023 Progress Note [facility] [address] [facility] [address] Dept: [phone] Dept Loc: [phone] Today's Visit Location: TAVR (transcather aortic valve replacement) Clinic [facility] Cardiology [address] [place] [id number] Visit type: Senior Health Assessment at TAVR (transcather aortic valve replacement) Clinic Visit Date: 11/21/2023 Reason for Visit: Shortness of Breath Assessment and Plan 1. Nonrheumatic aortic valve stenosis Assessment & Plan: S/p AV replacement by Dr. Nagy in 201209/22/23 Transthoracic Echo (TTE) noted severe aortic stenosis. Mean Gradient of 49. Dr. Garces in [place]. No aortic valve area mentioned. I agree with cardiology plan as discussed with strip feeder Dr. Huffman and CTS Dr. Reed on [...] Patient has already named her [employer] (Both are her daughter Shama López) I recommended patient follow-up with [facility] (phone: [phone] fax: [phone]) as needed for memory testing. 4. Drug-induced [...] Mean Gradient of 49. Dr. Garces in [place]. No aortic valve area mentioned. A fib [...] no=0 points)0 - patient rents room from [facility]. Rajiv (son) lives w pt Reduce [...] pandemic. Revi (more content not included)... Normal [facility] Progress Note HR 58 bpm today but no syncope, presyncope, falls Patient asymptomatic today Patient taking lopressor 12.5mg po bid - I encouraged patient to discuss with her cardiologists/PCP (primary care provider) regarding change of meds given her advanced age and increased risk of falls Normal [facility] Progress Note [facility]: Cardiothoracic Surgery Multidisciplinary Heart Valve Clinic Date: 11/21/23 Patient:Brianne Call 1940 83 y.o. female [id number] Subjective: HPI: Brianne Call 83 y.o. referred [...] reactive b (more content not included)... 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 Normal [facility] Progress Note Chronic; Stable Asymptomatic May be nearing renal (kidney) dysfunction requiring reduced dose of eliquis (given Cr nearly 1.5 in past and patient's age >80 yo). May need eliquis 2.5mg po bid instead of 5mg po bid in future pending renal (kidney) function Normal [facility] Progress Note meds reviewed; appropriate May [...] missing or doubling up on meds Normal [facility] Progress Note S/p AV replacement by Dr. Nagy in 201209/22/23 Transthoracic Echo (TTE) noted severe aortic stenosis. Mean Gradient of 49. Dr. Garces in [place]. No aortic valve area mentioned. I agree with cardiology plan as discussed with strip feeder Dr. Huffman and CTS Dr. Reed on same date regarding next steps for further workup/treatment of cardiac disease which likely includes heart cath +/- TAVR. On this date of evaluation, the patient has sufficient understanding of procedure(s) to consent to the procedure(s) being discussed and has adequate social support(s). Normal [facility] Progress Note [facility] [address] [facility] [address] Dept: [phone] Dept Visit type: New : 1940 Reason for Visit: Cardiac Valve Problem Assessment and Plan 1. LV dysfunction 2. Stenosis of prosthetic aortic valve, initial encounter - ECG 12 lead - CLINIC PERFORMED This is a very pleasant 83 y.o. 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 she is clearly in need of aortic valve replacement, likely [id number] TAVR. Will need a diagnostic cath first, [...] Effort: Pulmonary (more content not included)... Normal [facility] Progress Noteon 11-17-2023 Progress Note Brianne Russell [...] thinner - Eliquis Transthoracic Echocardiogram 09/22/2023 Normal [facility] Absolute lymphocyte countOrd ered By: Scott Hull on 07-13-2023 Lymphocytes Auto (Unsp spec) [#/Vol] 1.36 10*3/uL 0.83-4.51 [facility] Automated lymphocyte count a s percentage of total leukocytesOrdered By: Scott Hull on 07-13-2023 Lymphocytes/100 WBC Auto (Unsp spec) 23.9 % 19-41 [facility] Basophil percentageOrdered B y: Scott Hull on 07-13-2023 Basophils/100 WBC (Bld) 1.4 % 0-[address] [facility] Bilirubin [Mass/Vol] 1.30 mg/dL 0.20-1.00 [facility] Comment on above: For patients on eltr ombopag therapy, use of Dimension [place] TBIL is not recommended. Chloride [Moles/Vol] 107 mmol/L 98-107 [facility] Cholesterol [Mass/Vol] 170 mg/dL <200 [facility] Comment on above: <200 mg/dL Desirable 200-240 mg/dL Borderline >240 mg/dL High Risk Eosinophils/100 WBC (Bld) 1.6 % 0-5 [facility] Glucose [Mass/Vol] 108 mg/dL 74-106 [facility] Comment on above: Fasting Glucose resu lt from 100 to 125 mg/dL suggests IMPAIRED HOMEOSTASIS per A.D.A. criteria. Hemoglobin (Bld) [Mass/Vol] 15.2 g/dL 12.0-15.0 [facility] Monocytes/100 WBC (Bld) 12.6 % 0-[address] [facility] Neutrophils (Bld) [#/Vol] 3.4 10*3/uL 2.0-7.7 [facility] Neutrophils/100 WBC (Bld) 59.8 % 47-70 [facility] Potassium [Moles/Vol] 4.2 mmol/L 3.5-5.1 [facility] Protein [Mass/Vol] 7.0 g/dL 6.4-8.2 [facility] Sodium [Moles/Vol] 138 mmol/L 136-145 [facility] Triglyceride [Mass/Vol] 186 mg/dL <[address] [facility] Comment on above: The drugs N-Acetylcy steine and Metamizole may falsely depress this assay.Serum Triglycerides Reference Interval Normal <150 mg/dL Borderline high 150 - 199 mg/dL High 200 - 499 mg/dL Very High > or = 500 mg/dL WBC (Bld) [#/Vol] 5.7 10*3/uL 4.4-11.0 [facility] Determination of erythrocyte mean corpuscular volume (MCV)Ordered By: Scott Hull on 07-13-2023 MCV (RBC) [Entitic vol] 97.0 fL 81-[address] [facility] Erythrocyte distribution wid th ratioOrdered By: [facility] 07-13-[facility]23 Erythrocyte distribution width (RBC) [Ratio] 13.1 % 11.6-14.6 [facility] Erythrocyte distribution wid th standard deviationOrdered By: [facility] on 07-13-2023 Erythrocyte distribution width (RBC) [Entitic vol] 47.2 fL 35.1-43.9 [facility] Hematocrit Auto (Bld) [Volum e fraction]Ordered By: [facility] 07-13-2023 Hematocrit (Bld) [Volume fraction] 46.0 % 37-47 [facility] Immature granulocytes/100 WB C Auto (Bld)Ordered By: [facility] 07-13-2023 Immature granulocytes/100 WBC (Bld) 0.700 % 0.0-0.9 [facility] Comment on above: IG% - Immature Granu locytes (promyelocytes, myelocytes and metamyelocytes) > 1% indicates that a LEFT SHIFT is Present. Laboratory - Chemistry and C hemistry - challengeOrdered By: [facility] 07-13-2023 Albumin/Globulin [Mass ratio] 0.9 {ratio} 0.9-2.4 [facility] ALP [Catalytic activity/Vol] 64 U/L 45-117 [facility] ALT [Catalytic activity/Vol] 19 U/L 13-56 [facility] Cholesterol in HDL [Mass/Vol] 37 mg/dL >40 [facility] Comment on above: The drugs N-Acetylcy steine and Metamizole may falsely depress this assay. Reference Range HDL <40 mg/dL Low HDL Cholesterol HDL >or= 60 mg/dL High HDL Cholesterol Cholesterol in LDL [Mass/Vol] 96 mg/dL 0-130 [facility] CO2 [Moles/Vol] 26.0 mmol/L 21.0-32.0 [facility] Globulin (S) [Mass/Vol] 3.6 g/dL 2.2-4.[address] [facility] Urea nitrogen/Creatinine [Mass ratio] 15.4 mg/mg 10-20 [facility] Laboratory - Hematology and Cell countsOrdered By: [facility] 07-13-2023 MCH (RBC) [Entitic mass] 32.1 pg 27.0-32.0 [facility] MCHC (RBC) [Mass/Vol] 33.0 g/dL 32-36 [facility] Nucleated RBC/100 WBC (Bld) [Ratio] 0 % 0-5 [facility] Platelet mean volume (Bld) [Entitic vol] 12.7 fL 6.2-12.0 [facility] Platelets (Bld) [#/Vol] 190 10*3/uL 150-450 [facility] No Panel InformationOrdered By: Scott Hull on 07-13-2023 Estimated GFR (MDRD) Amer 50 mL/min >60 [facility] Comment on above: GFR Calc Estimated GFR (MDRD) Non-Af Amer 42 mL/min >60 [facility] Comment on above: Non- GFR Calc Vitamin D 25-Hydroxy 21.5 ng/mL [facility] Comment on above: Vitamin D 25(OH) Sta tus Range Deficiency <20 ng/mL (50nmol/L) Insufficiency 20 - 30 ng/mL (50 - 75 nmol/L) Sufficiency 30 - 100 ng/mL (75 - 250 nmol/L) Toxicity >100 ng/mL (>250 nmol/L) VLDL Cholesterol 37 mg/dL 5-40 [facility] RBC Auto (Bld) [#/Vol]Ordere d By: Scott Hull on 07-13-2023 RBC (Bld) [#/Vol] 4.74 10*6/uL 4.2-5.4 [facility] Serum or plasma calcium leah urement (mass/volume)Ordered By: Scott Hull on 07-13-2023 Calcium [Mass/Vol] 8.8 mg/dL 8.5-10.1 [facility] Serum or plasma creatinine m easurement (mass/volume)Ordered By: Scott Hull on 07-13-2023 Creatinine [Mass/Vol] 1.30 mg/dL 0.55-1.02 [facility] Comment on above: The validity of the calculated GFR & GFRAA in patients over 70 years has not been determined. Clinical correlation is essential. Serum or plasma thyroid stim ulating hormone (TSH) measurement (units/volume)Ordered By: Scott Hull on 07-13-2023 TSH Qn 2.73 uIU/mL 0.358-3.74 [facility] Serum or plasma urea nitroge n measurement (mass/volume)Ordered By: Scott Hull on 07-13-2023 Urea nitrogen [Mass/Vol] 20 mg/dL 7-18 [facility] Serum or plasma uric acid me asurement (mass/volume)Ordered By: Scott Kurtis on 07-13-2023 Urate [Mass/Vol] 4.5 mg/dL 2.6-6.0 [facility] Comment on above: The drugs N-Acetylcy steine and Metamizole may falsely depress this assay. Thin prep Papanicolaou smear with manual screeningOrdered By: Scott Hull on 07-13-2023 Thin prep Papanicolaou smear with manual screening 3.4 g/dL 3.2-5.0 [facility] Thin prep Papanicolaou smear with manual screening 26 U/L 15-37 [facility] Thin prep Papanicolaou smear with manual screening 5 5-15 [facility] Absolute lymphocyte countOrd ered By: Scott Meyerok on 01-05-2023 Lymphocytes Auto (Unsp spec) [#/Vol] 2.04 10*3/uL 0.83-4.51 [facility] Basophil percentageOrdered B y: Scott Meyerok on 01-05-2023 Basophils/100 WBC (Bld) 1.1 % 0-1 [facility] Bilirubin [Mass/Vol] 0.90 mg/dL 0.20-1.00 [facility] Comment on above: For patients on eltr ombopag therapy, use of Dimension [place] TBIL is not recommended. Chloride [Moles/Vol] 108 mmol/L 98-107 [facility] Eosinophils/100 WBC (Bld) 2.1 % 0-5 [facility] Glucose [Mass/Vol] 108 mg/dL 74-106 [facility] Comment on above: Fasting Glucose resu lt from 100 to 125 mg/dL suggests IMPAIRED HOMEOSTASIS per A.D.A. criteria. Neutrophils (Bld) [#/Vol] 3.9 10*3/uL 2.0-7.7 [facility] Neutrophils/100 WBC (Bld) 54.6 % 47-70 [facility] Potassium [Moles/Vol] 4.1 mmol/L 3.5-5.1 [facility] Protein [Mass/Vol] 7.2 g/dL 6.4-8.2 [facility] Sodium [Moles/Vol] 140 mmol/L 136-145 [facility] WBC (Bld) [#/Vol] 7.1 10*3/uL 4.4-11.0 [facility] Blood erythrocytes count (nu mber/volume)Ordered By: Scott Hull on 01-05-2023 RBC (Bld) [#/Vol] 4.90 10*6/uL 4.2-5.4 [facility] Blood hemoglobin measurement (mass/volume)Ordered By: Scott Hull on 01-05-2023 Hemoglobin (Bld) [Mass/Vol] 15.7 g/dL 12.0-15.0 [facility] Blood lymphocytes/100 leukoc ytesOrdered By: Scott Hull on 01-05-2023 Lymphocytes/100 WBC (Bld) 28.6 % 19-41 [facility] Blood monocytes/100 leukocyt esOrdered By: Scott Hull on 01-05-2023 Monocytes/100 WBC (Bld) 13.0 % 0-[address] [facility] Blood platelet mean volumeOr dered By: Scott Hull on 01-05-2023 Platelet mean volume (Bld) [Entitic vol] 12.0 fL 6.2-12.0 [facility] Determination of erythrocyte mean corpuscular volume (MCV)Ordered By: Scott Hull on 01-05-2023 MCV (RBC) [Entitic vol] 98.2 fL 81-[address] [facility] Hematocrit Auto (Bld) [Volum e fraction]Ordered By: Scott Hull on 01-05-2023 Hematocrit (Bld) [Volume fraction] 48.1 % 37-47 [facility] Laboratory - Chemistry and C hemistry - challengeOrdered By: Scott Hull on 01-05-2023 ALP [Catalytic activity/Vol] 63 U/L 45-117 [facility] ALT [Catalytic activity/Vol] 22 U/L 13-56 [facility] CO2 [Moles/Vol] 23.0 mmol/L 21.0-32.0 [facility] Globulin (S) [Mass/Vol] 3.9 g/dL 2.2-4.[address] [facility] Urea nitrogen/Creatinine [Mass ratio] 15.3 mg/mg 10-20 [facility] Laboratory - Hematology and Cell countsOrdered By: Scott Hull on 01-05-2023 Erythrocyte distribution width (RBC) [Entitic vol] 49.0 fL 35.1-43.9 [facility] Erythrocyte distribution width (RBC) [Ratio] 13.5 % 11.6-14.6 [facility] Immature granulocytes/100 WBC (Bld) 0.600 % 0.0-0.9 [facility] Comment on above: IG% - Immature Granu locytes (promyelocytes, myelocytes and metamyelocytes) > 1% indicates that a LEFT SHIFT is Present. MCH (RBC) [Entitic mass] 32.0 pg 27.0-32.0 [facility] Nucleated RBC/100 WBC (Bld) [Ratio] 0 % 0-5 [facility] MCHC Auto (RBC) [Mass/Vol]Or dered By: Scott Hull on 01-05-2023 MCHC (RBC) [Mass/Vol] 32.6 g/dL 32-36 [facility] No Panel InformationOrdered By: Scott Hull on 01-05-2023 Estimated GFR (MDRD) Amer 56 mL/min >60 [facility] Comment on above: GFR Calc Estimated GFR (MDRD) Non-Af Amer 47 mL/min >60 [facility] Comment on above: Non- GFR Calc Thyroid Stimulating Hormone (TSH) 2.88 uIU/mL 0.358-3.74 [facility] Vitamin D 25-Hydroxy 16.6 ng/mL [facility] Comment on above: Vitamin D 25(OH) Sta tus Range Deficiency <20 ng/mL (50nmol/L) Insufficiency 20 - 30 ng/mL (50 - 75 nmol/L) Sufficiency 30 - 100 ng/mL (75 - 250 nmol/L) Toxicity >100 ng/mL (>250 nmol/L) Platelets bldOrdered By: Scott Hull on 01-05-2023 Platelets (Bld) [#/Vol] 227 10*3/uL 150-450 [facility] Serum or plasma albumin leah urement (mass/volume)Ordered By: Scott Hull on 01-05-2023 Albumin [Mass/Vol] 3.3 g/dL 3.2-5.0 [facility] Serum or plasma albumin/glob ulin mass ratioOrdered By: Scott Hull on 01-05-2023 Albumin/Globulin [Mass ratio] 0.8 {ratio} 0.9-2.4 [facility] Serum or plasma calcium leah urement (mass/volume)Ordered By: Scott Hull on 01-05-2023 Calcium [Mass/Vol] 8.7 mg/dL 8.5-10.1 [facility] Serum or plasma creatinine m easurement (mass/volume)Ordered By: Scott Hull on 01-05-2023 Creatinine [Mass/Vol] 1.18 mg/dL 0.55-1.02 [facility] Comment on above: The validity of the calculated GFR & GFRAA in patients over 70 years has not been determined. Clinical correlation is essential. Serum or plasma urea nitroge n measurement (mass/volume)Ordered By: Scott Hull on 01-05-2023 Urea nitrogen [Mass/Vol] 18 mg/dL 7-18 [facility] Serum or plasma uric acid me asurement (mass/volume)Ordered By: Scott Hull on 01-05-2023 Urate [Mass/Vol] 4.3 mg/dL 2.6-6.0 [facility] Comment on above: The drugs N-Acetylcy steine and Metamizole may falsely depress this assay. Thin prep Papanicolaou smear with manual screeningOrdered By: Scott Hull on 01-05-2023 Thin prep Papanicolaou smear with manual screening 18 U/L 15-37 [facility] Thin prep Papanicolaou smear with manual screening 9 5-15 [facility] Absolute lymphocyte countOrd ered By: Dr. Hull on 06-30-2022 Lymphocytes Auto (Unsp spec) [#/Vol] 1.80 10*3/uL 0.83-4.51 [facility] Basophil percentageOrdered B y: Dr. Hull on 06-30-2022 Basophils/100 WBC (Bld) 1.3 % 0-[address] [facility] Bilirubin [Mass/Vol] 0.80 mg/dL 0.20-1.00 [facility] Comment on above: For patients on eltr ombopag therapy, use of Dimension [place] TBIL is not recommended. Chloride [Moles/Vol] 104 mmol/L 98-107 [facility] Eosinophils/100 WBC (Bld) 1.6 % 0-5 [facility] Glucose [Mass/Vol] 106 mg/dL 74-106 [facility] Comment on above: Fasting Glucose resu lt from 100 to 125 mg/dL suggests IMPAIRED HOMEOSTASIS per A.D.A. criteria. Neutrophils (Bld) [#/Vol] 5.8 10*3/uL 2.0-7.7 [facility] Neutrophils/100 WBC (Bld) 66.1 % 47-70 [facility] Potassium [Moles/Vol] 4.5 mmol/L 3.5-5.1 [facility] Protein [Mass/Vol] 6.9 g/dL 6.4-8.2 [facility] Sodium [Moles/Vol] 136 mmol/L 136-145 [facility] WBC (Bld) [#/Vol] 8.8 10*3/uL 4.4-11.0 [facility] Blood erythrocytes count (nu mber/volume)Ordered By: Dr. Hull on 06-30-2022 RBC (Bld) [#/Vol] 4.84 10*6/uL 4.2-5.4 [facility] Blood hemoglobin measurement (mass/volume)Ordered By: Dr. Hull on 06-30-2022 Hemoglobin (Bld) [Mass/Vol] 15.7 g/dL 12.0-15.0 [facility] Blood lymphocytes/100 leukoc ytesOrdered By: Dr. Hull on 06-30-2022 Lymphocytes/100 WBC (Bld) 20.5 % 19-41 [facility] Blood monocytes/100 leukocyt esOrdered By: Dr. Hull on 06-30-2022 Monocytes/100 WBC (Bld) 9.6 % 0-10 [facility] Blood platelet mean volumeOr dered By: Dr. Hull on 06-30-2022 Platelet mean volume (Bld) [Entitic vol] 12.5 fL 6.2-12.0 [facility] Determination of erythrocyte mean corpuscular volume (MCV)Ordered By: Dr. Hull on 06-30-2022 MCV (RBC) [Entitic vol] 97.5 fL 81-[address] [facility] Hematocrit Auto (Bld) [Volum e fraction]Ordered By: Dr. Hull on 06-30-2022 Hematocrit (Bld) [Volume fraction] 47.2 % 37-47 [facility] Laboratory - Chemistry and C hemistry - challengeOrdered By: Dr. Hull on 06-30-2022 ALP [Catalytic activity/Vol] 74 U/L 45-117 [facility] ALT [Catalytic activity/Vol] 21 U/L 13-56 [facility] CO2 [Moles/Vol] 23.0 mmol/L 21.0-32.0 [facility] Globulin (S) [Mass/Vol] 3.4 g/dL 2.2-4.[address] [facility] Urea nitrogen/Creatinine [Mass ratio] 18.2 mg/mg 10-20 [facility] Laboratory - Hematology and Cell countsOrdered By: Dr. Hull on 06-30-2022 Erythrocyte distribution width (RBC) [Entitic vol] 47.4 fL 35.1-43.9 [facility] Erythrocyte distribution width (RBC) [Ratio] 13.2 % 11.6-14.6 [facility] Immature granulocytes/100 WBC (Bld) 0.900 % 0.0-0.9 [facility] Comment on above: IG% - Immature Granu locytes (promyelocytes, myelocytes and metamyelocytes) > 1% indicates that a LEFT SHIFT is Present. MCH (RBC) [Entitic mass] 32.4 pg 27.0-32.0 [facility] Nucleated RBC/100 WBC (Bld) [Ratio] 0 % 0-5 [facility] MCHC Auto (RBC) [Mass/Vol]Or dered By: Dr. Hull on 06-30-2022 MCHC (RBC) [Mass/Vol] 33.3 g/dL 32-36 [facility] No Panel InformationOrdered By: Dr. Hull on 06-30-2022 Estimated GFR (MDRD) Amer 48 mL/min >60 [facility] Comment on above: GFR Calc Estimated GFR (MDRD) Non-Af Amer 39 mL/min >60 [facility] Comment on above: Non- GFR Calc Thyroid Stimulating Hormone (TSH) 3.20 uIU/mL 0.358-3.74 [facility] Vitamin D 25-Hydroxy 33.6 ng/mL [facility] Comment on above: Vitamin D 25(OH) Sta tus Range Deficiency <20 ng/mL (50nmol/L) Insufficiency 20 - 30 ng/mL (50 - 75 nmol/L) Sufficiency 30 - 100 ng/mL (75 - 250 nmol/L) Toxicity >100 ng/mL (>250 nmol/L) Platelets bldOrdered By: Dr. Hull on 06-30-2022 Platelets (Bld) [#/Vol] 252 10*3/uL 150-450 [facility] Serum or plasma albumin leah urement (mass/volume)Ordered By: Dr. Hull on 06-30-2022 Albumin [Mass/Vol] 3.5 g/dL 3.2-5.0 [facility] Serum or plasma albumin/glob ulin mass ratioOrdered By: Dr. Hull on 06-30-2022 Albumin/Globulin [Mass ratio] 1.0 {ratio} 0.9-2.4 [facility] Serum or plasma calcium leah urement (mass/volume)Ordered By: Dr. Hull on 06-30-2022 Calcium [Mass/Vol] 9.0 mg/dL 8.5-10.1 [facility] Serum or plasma creatinine m easurement (mass/volume)Ordered By: Dr. Hull on 06-30-2022 Creatinine [Mass/Vol] 1.37 mg/dL 0.55-1.02 [facility] Comment on above: The validity of the calculated GFR & GFRAA in patients over 70 years has not been determined. Clinical correlation is essential. Serum or plasma urea nitroge n measurement (mass/volume)Ordered By: Dr. Hull on 06-30-2022 Urea nitrogen [Mass/Vol] 25 mg/dL 7-18 [facility] Serum or plasma uric acid me asurement (mass/volume)Ordered By: Dr. Hull on 06-30-2022 Urate [Mass/Vol] 3.9 mg/dL 2.6-6.0 [facility] Comment on above: The drugs N-Acetylcy steine and Metamizole may falsely depress this assay. Thin prep Papanicolaou smear with manual screeningOrdered By: Dr. Hull on 06-30-2022 Thin prep Papanicolaou smear with manual screening 25 U/L 15-37 [facility] Thin prep Papanicolaou smear with manual screening 9 5-15 [facility] Absolute lymphocyte counton 12-30-2021 Lymphocytes Auto (Unsp spec) [#/Vol] 1.81 10*3/uL 0.83-4.51 [facility] Work Phone: Basophil percentageon 2021 Basophils/100 WBC (Bld) 1.1 % 0-1 [facility] Work Phone: Bilirubin [Mass/Vol] 1.10 mg/dL 0.20-1.00 [facility] Work Phone: Comment on above: For patients on eltr ombopag therapy, use of Dimension [place] TBIL is not recommended. Chloride [Moles/Vol] 108 mmol/L 98-107 [facility] Work Phone: Eosinophils/100 WBC (Bld) 1.4 % 0-5 [facility] Work Phone: Glucose [Mass/Vol] 104 mg/dL 74-106 [facility] Work Phone: Comment on above: Fasting Glucose resu lt from 100 to 125 mg/dL suggests IMPAIRED HOMEOSTASIS per A.D.A. criteria. Neutrophils (Bld) [#/Vol] 3.7 10*3/uL 2.0-7.7 [facility] Work Phone: Neutrophils/100 WBC (Bld) 55.7 % 47-70 [facility] Work Phone: Potassium [Moles/Vol] 4.1 mmol/L 3.5-5.1 [facility] Work Phone: Protein [Mass/Vol] 7.3 g/dL 6.4-8.2 [facility] Work Phone: Sodium [Moles/Vol] 138 mmol/L 136-145 [facility] Work Phone: WBC (Bld) [#/Vol] 6.6 10*3/uL 4.4-11.0 [facility] Work Phone: Blood erythrocytes count (nu mber/volume)on 12-30-2021 RBC (Bld) [#/Vol] 4.82 10*6/uL 4.2-5.4 [facility] Work Phone: Blood hemoglobin measurement (mass/volume)on 12-30-2021 Hemoglobin (Bld) [Mass/Vol] 15.4 g/dL 12.0-15.0 [facility] Work Phone: Blood lymphocytes/100 leukoc yteson 12-30-2021 Lymphocytes/100 WBC (Bld) 27.5 % 19-41 [facility] Work Phone: Blood monocytes/100 leukocyt eson 12-30-2021 Monocytes/100 WBC (Bld) 13.7 % 0-[address] [facility] Work Phone: Blood platelet mean volumeon 12-30-2021 Platelet mean volume (Bld) [Entitic vol] 12.6 fL 6.2-12.0 [facility] Work Phone: Determination of erythrocyte mean corpuscular volume (MCV)on 12-30-2021 MCV (RBC) [Entitic vol] 96.3 fL 81-[address] [facility] Work Phone: Hematocrit Auto (Bld) [Volum e fraction]on 12-30-2021 Hematocrit (Bld) [Volume fraction] 46.4 % 37-47 [facility] Work Phone: Laboratory - Chemistry and C hemistry - challengeon 12-30-2021 ALP [Catalytic activity/Vol] 78 U/L 45-117 [facility] Work Phone: ALT [Catalytic activity/Vol] 23 U/L 13-56 [facility] Work Phone: CO2 [Moles/Vol] 23.0 mmol/L 21.0-32.0 [facility] Work Phone: Globulin (S) [Mass/Vol] 3.9 g/dL 2.2-4.[address] [facility] Work Phone: Urea nitrogen/Creatinine [Mass ratio] 19.0 mg/mg 10-20 [facility] Work Phone: Laboratory - Hematology and Cell countson 12-30-2021 Erythrocyte distribution width (RBC) [Entitic vol] 45.9 fL 35.1-43.9 [facility] Work Phone: Erythrocyte distribution width (RBC) [Ratio] 13.0 % 11.6-14.6 [facility] Work Phone: Immature granulocytes/100 WBC (Bld) 0.600 % 0.0-0.9 [facility] Work Phone: Comment on above: IG% - Immature Granu locytes (promyelocytes, myelocytes and metamyelocytes) > 1% indicates that a LEFT SHIFT is Present. MCH (RBC) [Entitic mass] 32.0 pg 27.0-32.0 [facility] Work Phone: Nucleated RBC/100 WBC (Bld) [Ratio] 0 % 0-5 [facility] Work Phone: MCHC Auto (RBC) [Mass/Vol]on 12-30-2021 MCHC (RBC) [Mass/Vol] 33.2 g/dL 32-36 [facility] Work Phone: No Panel Informationon 12-30 Estimated GFR (MDRD) Amer 58 mL/min >60 [facility] Work Phone: Comment on above: GFR Calc Estimated GFR (MDRD) Non-Af Amer 48 mL/min >60 [facility] Work Phone: Comment on above: Non- GFR Calc Thyroid Stimulating Hormone (TSH) 2.92 uIU/mL 0.358-3.74 [facility] Work Phone: Vitamin D 25-Hydroxy 18.4 ng/mL [facility] Work Phone: Comment on above: Vitamin D 25(OH) Sta tus Range Deficiency <20 ng/mL (50nmol/L) Insufficiency 20 - 30 ng/mL (50 - 75 nmol/L) Sufficiency 30 - 100 ng/mL (75 - 250 nmol/L) Toxicity >100 ng/mL (>250 nmol/L) Platelets bldon 12-30-2021 Platelets (Bld) [#/Vol] 222 10*3/uL 150-450 [facility] Work Phone: Serum or plasma albumin leah urement (mass/volume)on 12-30-2021 Albumin [Mass/Vol] 3.4 g/dL 3.2-5.0 [facility] Work Phone: Serum or plasma albumin/glob ulin mass ratioon 12-30-2021 Albumin/Globulin [Mass ratio] 0.9 {ratio} 0.9-2.4 [facility] Work Phone: Serum or plasma calcium leah urement (mass/volume)on 12-30-2021 Calcium [Mass/Vol] 9.1 mg/dL 8.5-10.1 [facility] Work Phone: Serum or plasma creatinine m easurement (mass/volume)on 12-30-2021 Creatinine [Mass/Vol] 1.16 mg/dL 0.55-1.02 [facility] Work Phone: Comment on above: The validity of the calculated GFR & GFRAA in patients over 70 years has not been determined. Clinical correlation is essential. Serum or plasma urea nitroge n measurement (mass/volume)on 12-30-2021 Urea nitrogen [Mass/Vol] 22 mg/dL 7-18 [facility] Work Phone: Serum or plasma uric acid me asurement (mass/volume)on 12-30-2021 Urate [Mass/Vol] 4.1 mg/dL 2.6-6.0 [facility] Work Phone: Comment on above: The drugs N-Acetylcy steine and Metamizole may falsely depress this assay. Thin prep Papanicolaou smear with manual screeningon 12-30-2021 Thin prep Papanicolaou smear with manual screening 22 U/L 15-37 [facility] Work Phone: Thin prep Papanicolaou smear with manual screening 7 5-15 [facility] Work Phone: Absolute lymphocyte counton 06-30-2021 Lymphocytes Auto (Unsp spec) [#/Vol] 1.74 10*3/uL 0.83-4.51 [facility] Work Phone: Basophil percentageon 2021 Basophils/100 WBC (Bld) 1.4 % 0-[address] [facility] Work Phone: Bilirubin [Mass/Vol] 0.90 mg/dL 0.20-1.00 [facility] Work Phone: Comment on above: For patients on eltr ombopag therapy, use of Dimension [place] TBIL is not recommended. Chloride [Moles/Vol] 106 mmol/L 98-107 [facility] Work Phone: Eosinophils/100 WBC (Bld) 1.1 % 0-5 [facility] Work Phone: Glucose [Mass/Vol] 112 mg/dL 74-106 [facility] Work Phone: Comment on above: Fasting Glucose resu lt from 100 to 125 mg/dL suggests IMPAIRED HOMEOSTASIS per A.D.A. criteria. Neutrophils (Bld) [#/Vol] 3.8 10*3/uL 2.0-7.7 [facility] Work Phone: Neutrophils/100 WBC (Bld) 59.2 % 47-70 [facility] Work Phone: Potassium [Moles/Vol] 4.4 mmol/L 3.5-5.1 [facility] Work Phone: Protein [Mass/Vol] 7.3 g/dL 6.4-8.2 [facility] Work Phone: Sodium [Moles/Vol] 137 mmol/L 136-145 [facility] Work Phone: WBC (Bld) [#/Vol] 6.4 10*3/uL 4.4-11.0 [facility] Work Phone: Blood erythrocytes count (nu mber/volume)on 06-30-2021 RBC (Bld) [#/Vol] 4.95 10*6/uL 4.2-5.4 [facility] Work Phone: Blood hemoglobin measurement (mass/volume)on 06-30-2021 Hemoglobin (Bld) [Mass/Vol] 15.7 g/dL 12.0-15.0 [facility] Work Phone: Blood lymphocytes/100 leukoc yteson 06-30-2021 Lymphocytes/100 WBC (Bld) 27.3 % 19-41 [facility] Work Phone: Blood monocytes/100 leukocyt eson 06-30-2021 Monocytes/100 WBC (Bld) 10.7 % 0-[address] [facility] Work Phone: Blood platelet mean volumeon 06-30-2021 Platelet mean volume (Bld) [Entitic vol] 12.7 fL 6.2-12.0 [facility] Work Phone: Determination of erythrocyte mean corpuscular volume (MCV)on 06-30-2021 MCV (RBC) [Entitic vol] 96.6 fL 81-[address] [facility] Work Phone: Hematocrit Auto (Bld) [Volum e fraction]on 06-30-2021 Hematocrit (Bld) [Volume fraction] 47.8 % 37-47 [facility] Work Phone: Laboratory - Chemistry and C hemistry - challengeon 06-30-2021 ALP [Catalytic activity/Vol] 71 U/L 45-117 [facility] Work Phone: ALT [Catalytic activity/Vol] 26 U/L 13-56 [facility] Work Phone: CO2 [Moles/Vol] 25.0 mmol/L 21.0-32.0 [facility] Work Phone: Globulin (S) [Mass/Vol] 3.7 g/dL 2.2-4.[address] [facility] Work Phone: Urea nitrogen/Creatinine [Mass ratio] 14.7 mg/mg 10-20 [facility] Work Phone: Laboratory - Hematology and Cell countson 06-30-2021 Erythrocyte distribution width (RBC) [Entitic vol] 46.4 fL 35.1-43.9 [facility] Work Phone: Erythrocyte distribution width (RBC) [Ratio] 13.1 % 11.6-14.6 [facility] Work Phone: Immature granulocytes/100 WBC (Bld) 0.300 % 0.0-0.9 [facility] Work Phone: Comment on above: IG% - Immature Granu locytes (promyelocytes, myelocytes and metamyelocytes) > 1% indicates that a LEFT SHIFT is Present. MCH (RBC) [Entitic mass] 31.7 pg 27.0-32.0 [facility] Work Phone: Nucleated RBC/100 WBC (Bld) [Ratio] 0 % 0-5 [facility] Work Phone: MCHC Auto (RBC) [Mass/Vol]on 06-30-2021 MCHC (RBC) [Mass/Vol] 32.8 g/dL 32-36 [facility] Work Phone: No Panel Informationon 06-30 Estimated GFR (MDRD) Amer 51 mL/min >60 [facility] Work Phone: Comment on above: GFR Calc Estimated GFR (MDRD) Non-Af Amer 42 mL/min >60 [facility] Work Phone: Comment on above: Non- GFR Calc Thyroid Stimulating Hormone (TSH) 2.54 uIU/mL 0.358-3.74 [facility] Work Phone: Vitamin D 25-Hydroxy 24.2 ng/mL [facility] Work Phone: Comment on above: Vitamin D 25(OH) Sta tus Range Deficiency <20 ng/mL (50nmol/L) Insufficiency 20 - 30 ng/mL (50 - 75 nmol/L) Sufficiency 30 - 100 ng/mL (75 - 250 nmol/L) Toxicity >100 ng/mL (>250 nmol/L) Platelets bldon 06-30-2021 Platelets (Bld) [#/Vol] 242 10*3/uL 150-450 [facility] Work Phone: Serum or plasma albumin leah urement (mass/volume)on 06-30-2021 Albumin [Mass/Vol] 3.6 g/dL 3.2-5.0 [facility] Work Phone: Serum or plasma albumin/glob ulin mass ratioon 06-30-2021 Albumin/Globulin [Mass ratio] 1.0 {ratio} 0.9-2.4 [facility] Work Phone: Serum or plasma calcium leah urement (mass/volume)on 06-30-2021 Calcium [Mass/Vol] 9.2 mg/dL 8.5-10.1 [facility] Work Phone: Serum or plasma creatinine m easurement (mass/volume)on 06-30-2021 Creatinine [Mass/Vol] 1.29 mg/dL 0.55-1.02 [facility] Work Phone: Comment on above: The validity of the calculated GFR & GFRAA in patients over 70 years has not been determined. Clinical correlation is essential. Serum or plasma urea nitroge n measurement (mass/volume)on 06-30-2021 Urea nitrogen [Mass/Vol] 19 mg/dL 7-18 [facility] Work Phone: Serum or plasma uric acid me asurement (mass/volume)on 06-30-2021 Urate [Mass/Vol] 4.3 mg/dL 2.6-6.0 [facility] Work Phone: Comment on above: The drugs N-Acetylcy steine and Metamizole may falsely depress this assay. Thin prep Papanicolaou smear with manual screeningon 06-30-2021 Thin prep Papanicolaou smear with manual screening 23 U/L 15-37 [facility] Work Phone: Thin prep Papanicolaou smear with manual screening 6 5-15 [facility] Work Phone: Office Visiton 01-04-2017 Dietary management education, guidance, and counseling (procedure) yes Invalid Interpretation Code [facility] Work Phone: Documentation of current medications (procedure) Done Invalid Interpretation Code [facility] Work Phone: Tobacco use CPHS Never smoker Invalid Interpretation Code [facility] Work Phone: Office Visit: [facility] 12-30-19 Documentation of current medications (procedure) Done Invalid Interpretation Code [facility] Work Phone: Fall risk assessment No Invalid Interpretation Code [facility] Work Phone: Protein mass conc Done Invalid Interpretation Code [facility] Work Phone: Office Visiton 09-28-2016 Dietary management education, guidance, and counseling (procedure) yes Invalid Interpretation Code [facility] Work Phone: Documentation of current medications (procedure) Done Invalid Interpretation Code [facility] Work Phone: Tobacco smoking status NHIS Never smoker Invalid Interpretation Code [facility] Work Phone: Tobacco use CPHS Never smoker Invalid Interpretation Code [facility] Work Phone: Office Visiton 06-29-2016 Dietary management education, guidance, and counseling (procedure) yes Invalid Interpretation Code [facility] Work Phone: Documentation of current medications (procedure) Done Invalid Interpretation Code [facility] Work Phone: Tobacco use CPHS Never smoker Invalid Interpretation Code [facility] Work Phone: Clinical Lists Update: [employer]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 11-18-2015 Left ventricular Ejection fraction 65 % Invalid Interpretation Code [facility] Work Phone: Lab Report: Lipid Profileon 11-12-2015 Cholesterol 194 mg/dL Invalid Interpretation Code 200 [facility] Work Phone: HDL Cholesterol 45 mg/dL Invalid Interpretation Code [facility] Work Phone: LDL Cholesterol 123 mg/dL Invalid Interpretation Code 0-130 [facility] Work Phone: Triglyceride 132 mg/dL Invalid Interpretation Code [facility] Work Phone: very low density lipoproteins 26 mg/dL Invalid Interpretation Code 5-40 [facility] Work Phone: Lab Report: Liver Profileon 11-12-2015 Alanine aminotransferase (ALT) 19 U/L Invalid Interpretation Code 12-78 [facility] Work Phone: Albumin 3.6 g/dL Invalid Interpretation Code 3.4-5.0 [facility] Work Phone: Alkaline phosphatase (ALP) 72 U/L Invalid Interpretation Code 50-136 [facility] Work Phone: ALP enzyme act/vol (Bld) 72 U/L Invalid Interpretation Code 50-136 [facility] Work Phone: Aspartate aminotransferase (AST) 17 U/L Invalid Interpretation Code 15-37 [facility] Work Phone: Bilirubin (direct) 0.17 mg/dL Invalid Interpretation Code 0.00-0.30 [facility] Work Phone: Bilirubin (total) 0.90 mg/dL Invalid Interpretation Code 0.20-1.00 [facility] Work Phone: Globulin 3.7 g/dL High 2.3-3.5 [facility] Work Phone: Protein 7.3 g/dL Invalid Interpretation Code 6.4-8.2 [facility] Work Phone: Vital Signs Date Time Vital Sign Value Performing Clinician Angle euceda 01-04-2024 11:57-0400 Body height 157.5 cm Mónica David POWERHOUSE OPERATOR - [employer]UCATION ASSOCIATE Work Phone: [facility] 01-04-2024 11:57-0400 Body mass index (BMI) [Ratio] 43.09 kg/m2 Mónica David POWERHOUSE OPERATOR - SPECIAL EDUCATION ASSOCIATE Work Phone: [facility] 01-04-2024 11:57-0400 Body weight 106.87 kg Mónica David POWERHOUSE OPERATOR - SPECIAL EDUCATION ASSOCIATE Work Phone: [facility] 01-04-2024 11:57-0400 Diastolic blood pressure 64 mm[Hg] Mónica David POWERHOUSE OPERATOR - SPECIAL EDUCATION ASSOCIATE Work Phone: [facility] 01-04-2024 11:57-0400 Heart rate 68 /min Mónica David POWERHOUSE OPERATOR - SPECIAL EDUCATION ASSOCIATE Work Phone: [facility] 01-04-2024 11:57-0400 SaO2% (BldA) [Mass fraction] 97 % Mónica David POWERHOUSE OPERATOR - SPECIAL EDUCATION ASSOCIATE Work Phone: [facility] 01-04-2024 11:57-0400 Systolic blood pressure 112 mm[Hg] Mónica David POWERHOUSE OPERATOR - SPECIAL EDUCATION ASSOCIATE Work Phone: [facility] 12-26-2023 11:34-0400 Body temperature 96.49 [degF] Harjeet Huffman MD Work Phone: [facility] 12-26-2023 11:34-0400 Diastolic blood pressure 82 mm[Hg] Harjeet Huffman MD Work Phone: [facility] 12-26-2023 11:34-0400 Heart rate 87 /min Harjeet Huffman MD Work Phone: [facility] 12-26-2023 11:34-0400 Respiratory rate 22 /min Harjeet Huffman MD Work Phone: [facility] 12-26-2023 11:34-0400 SaO2% (BldA) [Mass fraction] 98 % Harjeet Huffman MD Work Phone: [facility] 12-26-2023 11:34-0400 Systolic blood pressure 148 mm[Hg] Harjeet Huffman MD Work Phone: [facility] 12-26-2023 09:27-0400 Body height 157.5 cm Harjeet Huffman MD Work Phone: [facility] 12-26-2023 09:27-0400 Body mass index (BMI) [Ratio] 45.91 kg/m2 Harjeet Huffman MD Work Phone: [facility] 12-26-2023 09:27-0400 Body weight 113.85 kg Harjeet Huffman MD Work Phone: [facility] 12-12-2023 13:57-0400 Diastolic blood pressure 76 mm[Hg] [facility] 12-12-2023 13:57-0400 Heart rate 73 /min [facility] 12-12-2023 13:57-0400 Respiratory rate 18 /min [facility] 12-12-2023 13:57-0400 Systolic blood pressure 128 mm[Hg] [facility] 12-12-2023 12:30-0400 Body temperature 96.8 [degF] Arlenecb Velez POWERHOUSE OPERATOR - SPECIAL EDUCATION ASSOCIATE Work Phone: [facility] 12-12-2023 12:30-0400 Diastolic blood pressure 64 mm[Hg] Arlene Rosie POWERHOUSE OPERATOR - SPECIAL EDUCATION ASSOCIATE Work Phone: [facility] 12-12-2023 12:30-0400 Heart rate 50 /min Arlene Velez POWERHOUSE OPERATOR - SPECIAL EDUCATION ASSOCIATE Work Phone: [facility] 12-12-2023 12:30-0400 Respiratory rate 18 /min Arlene Velez POWERHOUSE OPERATOR - SPECIAL EDUCATION ASSOCIATE Work Phone: [facility] 12-12-2023 12:30-0400 Systolic blood pressure 113 mm[Hg] Arlene Velez POWERHOUSE OPERATOR - SPECIAL EDUCATION ASSOCIATE Work Phone: [employer] 12-12-2023 07:34-0400 Body temperature 97 [degF] Ach Pop [facility] 11-21-2023 14:17-0400 Body height 157.5 cm Juan Reed DO Work Phone: [facility] 11-21-2023 14:17-0400 Body mass index (BMI) [Ratio] 43.15 kg/m2 Juan Reed DO Work Phone: [facility] 11-21-2023 14:17-0400 Body weight 107 kg Juan Reed DO Work Phone: [facility] 11-21-2023 14:17-0400 Diastolic blood pressure 82 mm[Hg] Juan Reed DO Work Phone: [facility] 11-21-2023 14:17-0400 Heart rate 58 /min Juan Reed DO Work Phone: [email or web address] 11-21-2023 14:17-0400 SaO2% (BldA) [Mass fraction] 98 % Juan Reed DO Work Phone: [facility] 11-21-2023 14:17-0400 Systolic blood pressure 136 mm[Hg] Juan Reed DO Work Phone: [employer] 11-21-2023 14:01-0400 Body height 157.5 cm Harjeet Huffman MD Work Phone: [email or web address] 11-21-2023 14:01-0400 Body mass index (BMI) [Ratio] 43.31 kg/m2 Harjeet Huffman MD Work Phone: [email or web address] 11-21-2023 14:01-0400 Body weight 107.41 kg Harjeet Huffman MD Work Phone: [email or web address] 11-21-2023 14:01-0400 Diastolic blood pressure 82 mm[Hg] Harjeet Huffman MD Work Phone: [email or web address] 11-21-2023 14:01-0400 Heart rate 58 /min Harjeet Huffman MD Work Phone: [facility] [employer] 11-21-2023 14:010400 SaO2% (BldA) [Mass fraction] 98 % Harjeet Huffman MD Work Phone: [facility] [employer] 11-21-2023 14:01-0400 Systolic blood pressure 136 mm[Hg] Harjeet Huffman MD Work Phone: [facility] [employer] 12-29-2016 10:24-0400 BMI (Body Mass Index) 38.01 [...] Phone: 05-26-2016 14:01-0500 BP Diastolic 76 mm[Hg] [facility] Work Phone: 05-26-2016 14:01-0500 BP Systolic 144 mm[Hg] Paige Singer [facility] Work Phone: 05-26-2016 14:01-0500 Height 161.29 cm [facility] Work Phone: 05-26-2016 14:01-0500 Pulse (Heart Rate) 76 /min [facility] Work Phone: 05-26-2016 14:01-0500 Respiratory Rate 18 /min [facility] Work Phone: 05-26-2016 14:01-0500 Weight 98.43 kg [facility] Work Phone: 11-10-2015 14:49-0400 BSA (Body Surface Area) 2.03 m2 [facility] Work Phone: Encounters Encounter Date Encounter Type Care Provider Facility Start: 01-29-2025 ambulatory Efewongbe Oleghe OLS Fa cility:[facility] Start: 01-14-2025 ambulatory Efewongbe Oleghe OLS Fa cility:[facility] Start: 01-13-2025 End: 01-13-2025 ambulatory Sara Man NP Facility:[facility] [place] Start: 01-06-2025 ambulatory Efewongbe Oleghe OLS Fa cility:[facility] Start: 12-30-2024 ambulatory Efewongbe Oleghe OLS Fa cility:[facility] Start: 12-17-2024 Registered Referred Joe Sanchez MD [facility] Start: 12-17-2024 End: 12-17-2024 ambulatory Efewongbe Arturoghe OLS Facility:[facility] Start: 12-04-2024 ambulatory Efewongbe Oleghe OLS Fa cility:[facility] Start: 12-04-2024 [facility] Start: 11-26-2024 End: 11-27-2024 ambulatory Efgenebe Oleghe Facility:[facility] Start: 11-19-2024 ambulatory Joe PORTILLO Fa cility:[facility] Start: 11-19-2024 [facility] Start: 10-23-2024 End: 10-23-[address] Scott Hull MD Work Phone: [facility] Start: 10-23-2024 End: 10-23-2024 Patient encounter procedure Sara [facility]EMAY[facility] Work Phone: Start: 10-22-2024 [facility] Start: 10-22-2024 End: 10-22-2024 ambulatory Joe PORTILLO Facility:[facility] Start: 10-09-2024 ambulatory Joe PORTILLO Fa cility:[facility] Start: 10-09-2024 [facility] Start: 10-07-2024 End: 10-07-[address] Scott Hull MD Work Phone: [facility] Start: 10-07-2024 End: 10-07-2024 [facility] Start: 10-07-2024 [facility] Start: 10-07-2024 End: 10-07-2024 ambulatory Joe PORTILLO Facility:[facility] Start: 10-01-2024 End: 10-01-[address] Scott Hull MD Work Phone: [facility] Start: 10-01-2024 End: 10-01-[address] Joe Sanchez MD -[facility] Work Phone: Start: 09-24-2024 ambulatory Scott Hull Facility:[facility] Start: 09-24-2024 [facility] Start: 09-02-2024 End: 09-02-[address] Scott Hull MD Work Phone: [facility] Start: 09-02-2024 End: 09-02-2024 Patient encounter procedure [facility] Work Phone: Start: 08-27-2024 ambulatory Scott [facility] Kurt[facility] Facility:[facility] Start: 08-27-2024 Registered Referred Joe Sanchez MD [facility] Start: 08-20-2024 End: 08-20-[address] Scott Hull MD Work Phone: [facility] Start: 08-20-2024 End: 08-20-2024 Patient encounter procedure Sara [facility] Work Phone: Start: 08-14-2024 ambulatory Scott Hull Facility:[facility] Start: 08-14-2024 Registered Referred Joe Sanchez MD [facility] Start: 07-30-2024 End: 07-30-[address] Scott Hull MD Work Phone: [facility] Work Phone: Start: 07-30-2024 End: 07-30-2024 Departed Referred Joe Sanchez MD [facility] Start: 07-30-2024 End: 07-30-2024 ambulatory Joe PORTILLO Facility:[facility] Start: 07-23-2024 End: 07-23-[address] Scott Hull MD Work Phone: [facility] Start: 07-23-2024 End: 07-23-[address] Joe Sanchez MD [facility] Work Phone: Start: 07-15-2024 End: 07-15-[address] Scott Hull MD Work Phone: [facility] Work Phone: Start: 07-15-2024 End: 07-15-2024 [facility]ed [facility] Start: 07-15-2024 Registered [facility] Start: 07-15-2024 End: 07-15-2024 ambulatory Efmontez Sanchez OLS Facility:[facility] Start: 07-02-2024 End: 07-02-[address] Scott Hull MD Work Phone: [facility] Work Phone: Start: 07-02-2024 End: 07-02-2024 [facility]ed [facility] Start: 07-02-2024 End: 07-02-2024 ambulatory Efmontez PORTILLO Facility:[facility] Start: 06-18-2024 End: 06-18-2024 [facility]ed [facility] Start: 06-18-2024 Registered [facility] Start: 06-18-2024 End: 06-18-2024 ambulatory Scott Chi [place] Facility:[facility] Start: 06-04-2024 End: 06-04-[address] Scott Hull MD Work Phone: [facility] Work Phone: Start: 06-04-2024 End: 06-04-2024 [facility] Start: 06-04-2024 End: 06-04-2024 ambulatory Scott Chi [place] Facility:[facility] Start: 05-28-2024 End: 05-28-2024 ambulatory Efewongbe Oleghe Facility:[facility] Start: 05-28-2024 End: 05-28-[address] Joe Sanchez MD [facility] Work Phone: Start: 05-16-2024 End: 05-16-2024 ambulatory Scott Chi [place] Facility:[facility] Start: 05-16-2024 End: 05-16-2024 Patient encounter procedure Eriberto VILLALOBOS -[facility] Work Phone: Start: 05-07-2024 ambulatory Scott Chi [place] Facility:[facility] Start: 05-07-2024 Registered [facility] Start: 04-22-2024 ambulatory Scott Chi [place] Facility:[facility] Start: 04-22-2024 Registered [facility] Start: 04-18-2024 ambulatory Mónica VILLALOBOS Facility:[facility] Start: 04-09-2024 End: 04-09-2024 [facility]ed [facility] Start: 04-09-2024 End: 04-09-2024 ambulatory Joe PORTILLO Facility:[facility] Start: 04-02-2024 End: 04-02-2024 ambulatory Scott Chi [place] Facility:[facility] Start: 04-02-2024 End: 04-02-[address] Joe Sanchez MD -[facility] Work Phone: Start: 03-15-2024 End: 03-15-2024 ambulatory Sara Irizarry NP Facility:[facility] Start: 03-15-2024 End: 03-15-2024 Patient encounter procedure Sara Irizarry VICE PRESIDENT [employer]- -[facility] Work Phone: Start: 03-15-2024 ambulatory Jeo Sanchez OLS Fa cility:[facility] Start: 03-15-2024 [facility]istered [facility] Start: 03-08-2024 ambulatory Joe Sanchez OLS Fa cility:[facility] Start: 03-08-2024 Registered [facility] Start: 03-01-2024 End: 03-01-2024 Departed [facility] Start: 03-01-2024 End: 03-01-2024 ambulatory Efewongbe Oleghe OLS Facility:[facility] Start: 02-27-2024 End: 02-27-2024 [facility] Start: 02-27-2024 End: 02-27-2024 Patient encounter procedure Sara MONTEMAYOR -[facility] Work Phone: Start: 02-23-2024 End: 02-23-2024 ambulatory Efewongbe Oleghe OLS Facility:[facility] Start: 02-16-2024 ambulatory Efewongbe Oleghe OLS Fa cility:[facility] Start: 02-09-2024 ambulatory Efewongbe Oleghe OLS Fa cility:[facility] Start: 02-07-2024 End: 02-07-2024 ambulatory [facility] [place] Facility:[facility] Start: 02-02-2024 ambulatory Efewongbe Oleawaise OLS Fa cility:[facility] Start: 01-04-2024 End: 02-22-2024 Telephone encounter Mónica David APRN - SPECIAL EDUCATION ASSOCIATE Work Phone: [facility] [employer] [facility] Comment on above: Orders Start: 01-04-2024 End: 01-04-2024 Office outpatient visit 25 minutes Mónica David APRN - SPECIAL EDUCATION ASSOCIATE Work Phone: [facility] [employer] [facility] Comment on above: Chronic atrial fibri llation (HCC) (Primary Dx); Severe aortic stenosis; Stage 3a chronic kidney disease (HCC); Left heart failure (HCC) Start: 01-04-2024 End: 01-04-2024 ambulatory MÓNICA DAVID [facility] Start: 12-25-2023 End: 12-26-2023 Evaluation and management of inpatient Harjeet Huffman MD Work Phone: [facility] Cardiac Thoracic Vascular Intensive Care Unit CTV ICU T1 Comment on above: Severe aortic stenos is (Primary Dx); Nonrheumatic aortic valve stenosis Start: 12-22-2023 End: 12-22-2023 ambulatory Arlene Velez POWERHOUSE OPERATOR - SPECIAL EDUCATION ASSOCIATE Work Phone: [facility] Comment on above: Severe aortic stenos is (Primary Dx) Start: 12-12-2023 End: 12-12-2023 Office outpatient visit 25 minutes Mónica David POWERHOUSE OPERATOR - SPECIAL EDUCATION ASSOCIATE Work Phone: [facility] [place] Comment on above: Chronic atrial fibri llation (HCC) (Primary Dx); Nonrheumatic aortic valve stenosis; Adverse effect of contrast media, initial encounter Start: 12-12-2023 End: 12-12-2023 Subsequent hospital visit by physician Arlene Velez POWERHOUSE OPERATOR - SPECIAL EDUCATION ASSOCIATE Work Phone: [facility] CT Imaging Comment on above: Nonrheumatic aortic valve stenosis Start: 12-12-2023 End: 12-12-2023 ambulatory Harjeet Huffman MD Work Phone: [facility] POP Comment on above: Renal failure, unspe cified chronicity; Stenosis of prosthetic aortic valve, initial encounter Start: 11-21-2023 End: 11-21-2023 Office outpatient new 45 minutes Thaddeus Mckeon MD Work Phone: [facility] Comment on above: Nonrheumatic aortic valve stenosis (Primary Dx); Chronic atrial fibrillation (HCC); Short-term memory loss; Drug-induced bradycardia; Polypharmacy Start: 11-21-2023 End: 11-21-2023 Office outpatient new 60 minutes Juan Reed DO Work Phone: [facility] Comment on above: Stenosis of prosthet ic aortic valve, initial encounter (Primary Dx) LV dysfunction (Prim logan Dx); Stenosis of prosthetic aortic valve, initial encounter Start: 11-21-2023 End: 11-21-2023 ambulatory THADDEUS MCKEON [facility] Start: 07-13-2023 End: 07-13-2023 ambulatory [facility] Work Phone: Start: 07-13-2023 End: 07-13-2023 Patient encounter procedure [facility] Work Phone: Start: 01-05-2023 End: 01-05-2023 ambulatory [facility] Work Phone: Start: 01-05-2023 End: 01-05-2023 Patient encounter procedure [facility], Phy Office 3rd Flr Start: 06-30-2022 End: 06-30-2022 ambulatory [facility] Work Phone: Start: 06-30-2022 End: 06-30-2022 Patient encounter procedure [facility], y Office 3rd Flr Start: 12-30-2021 End: 12-30-2021 ambulatory [facility] Work Phone: Start: 12-30-2021 End: 12-30-2021 Patient encounter procedure [facility], y Office 3rd Flr Start: 06-30-2021 End: 06-30-2021 [facility] Start: 09-11-2017 Patient encounter status [facility] Procedures Date Procedure Procedure Detail [...] w or wo fol wcon,Doppler Mónica David POWERHOUSE OPERATOR - SPECIAL EDUCATION ASSOCIATE Work Phone: Start: 12-26-2023 Ecg routine ecg w/le ast 12 lds trcg only w/o i&r Mónica David POWERHOUSE OPERATOR - SPECIAL EDUCATION ASSOCIATE Work Phone: Start: 12-26-2023 Basic metabolic pane l calcium total Mónica David POWERHOUSE OPERATOR - SPECIAL EDUCATION ASSOCIATE Work Phone: Start: 12-25-2023 Echo transthorc r-t 2d w/wo m-mode rec f-up/lmtd Harjeet Huffman MD Work Phone: Start: 12-25-2023 Basic metabolic pane l calcium total Mónica Radford Sandeep POWERHOUSE OPERATOR - SPECIAL EDUCATION ASSOCIATE Work Phone: Start: 12-25-2023 Ecg routine ecg w/le ast 12 lds trcg only w/o i&r Mónica Radford Sandeep POWERHOUSE OPERATOR - SPECIAL EDUCATION ASSOCIATE Work Phone: Start: 12-25-2023 OXYGEN THERAPY Mónica Radford Sandeep POWERHOUSE OPERATOR - SPECIAL EDUCATION ASSOCIATE Work Phone: Start: 12-25-2023 Cardiac catheterizat ion study Harjeet Huffman MD Work Phone: Start: 12-25-2023 Antibody screen HARJEET DOWNING Comment on above: Performed By: #### L [id number] #### Prompt Care Rn: AIDE RUEDA ([phone]) [facility] ([facility]) [address] [place] [address] Start: 12-25-2023 End: 12-25-2023 Blood typing serologic rh (d) Tien Cornell MD Work Phone: Start: 12-25-2023 End: 12-25-2023 TRANSCATHETER AORTIC VALVE REPLACEMENT (TAVR) - OR Tien Cornell MD Work Phone: Start: 12-12-2023 Antibody screen HARJEET DOWNING Comment on above: Performed By: #### L [id number] ####Prompt Care Rn: AIDE RUEDA ([phone])[facility] ([facility])[address] [place] [address] Start: 12-12-2023 Blood typing serologic abo Harjeet [...] us Sukh S Elver Work Phone: Start: 01-03-2017 End: 01-09-2017 [...] Work Phone: Start: 11-10-2015 End: 05-20-2016 ERIC Braragan MD Work Phone: Start: 11-10-2015 End: 11-18-2015 [...] DTaP/Tdap/Td Vaccines (2 - Td or Tdap) [facility] Start: 12-25-2024 Creatinine measurement Creatinine Level [facility] Start: 12-25-2024 Echocardiography Echocardiogram [facility] Start: 12-25-2024 Potassium measurement Potassium Level [facility] Start: 03-20-2024 Medicare Advantage Annual Wellness Visit Medicare Advantage Annual Wellness Visit [facility] Start: 01-04-2024 End: 01-04-2024 Patient encounter procedure 01/04/2024 12:00 PM EDT Office Visit [facility] [place] [facility] [address] [place] [id number] Mónica David, POWERHOUSE OPERATOR - SPECIAL EDUCATION ASSOCIATE [address] [place] [address] [facility] [place] Start: 12-25-2023 End: 12-25-2023 Admission to same day surgery center 12/25/2023 9:15 AM EDT - 12/25/2023 11:00 AM EDT Surgery [facility] MA[facility] OR [address] [facility] [place] [address] Harjeet Huffman MD [address] [place] [address] TRANSCATHETER AORTIC VALVE REPLACEMENT, TRANSTHORACIC ECHOCARDIOGRAM [facility] Comment on above: TRANSCATHETER AORTIC VALVE REPLACEMENT, TRANSTHORACIC ECHOCARDIOGRAM Start: 12-25-2023 End: 12-25-2023 Anesthesia consultation 12/25/2023 9:15 AM EDT Anesthesia Event [facility] OR [address] [facility] [place] [address] Carolina Waldron, POWERHOUSE OPERATOR - SPECIAL EDUCATION ASSOCIATE [address] [facility] [address] [place] [address] [facility] OR Start: 12-25-2023 Subsequent hospital visit by physician 12/25/2023 9:15 AM EDT Hospital Encounter [facility] OR [address] [place] [address] Harjeet Huffman MD [address] [facility] [address] [place] [address] Nonrheumatic aortic valve stenosis [facility] Comment on above: Nonrheumatic aortic valve stenosis Start: 12-25-2023 End: 12-25-2023 TRANSCATHETER AORTIC VALVE REPLACEMENT (TAVR) - OR TRANSCATHETER AORTIC VALVE REPLACEMENT (TAVR) - OR Nonrheumatic aortic valve stenosis 12/25/2023 9:[address] [facility] [employer] Start: 11-19-2023 COVID-19 Vaccine ( season) COVID-19 Vaccine () [facility] [employer] Start: 11-19-2023 COVID-19 Vaccine () COVID-19 Vaccine () [email or web address] Start: 11-19-2023 Influenza vaccination Influenza Vaccine (#1) [facility] [employer] Start: 03-20-2023 Medicare Advantage Annual Wellness Visit Medicare Advantage Annual Wellness Visit [facility] [employer] Start: 11-09-2020 Lipid panel Lipid Panel [email or web address] Start: 07-10-2017 End: 07-10-2017 Appointment Appointment [employer] Work Phone: Start: 01-05-2017 End: 01-09-2017 Nuclear stress test -Lexiscan Nuclear stress test -Lexiscan [facility] Work Phone: Start: 01-04-2017 End: 01-04-2017 Appointment Appointment [facility] Work Phone: Start: 01-03-2017 End: 01-05-2017 Nuclear stress test -exercise Nuclear stress test -exercise [facility] Work Phone: Start: 12-29-2016 End: 12-29-2016 ERIC REYES [facility] Work Phone: Start: 12-29-2016 End: 12-29-2016 Echocardiography Echocardiogram (complete) [facility] Work Phone: Start: 12-29-2016 End: 12-29-2016 Follow Up Appt 6 months Follow Up Appt 6 months [facility] Work Phone: Start: 12-29-2016 End: 12-29-2016 Nuclear stress test -exercise Nuclear stress test -exercise [facility] Work Phone: Start: 12-29-2016 End: 12-29-2016 Appointment Appointment [facility] Work Phone: Start: 12-15-2016 End: 12-15-2016 Appointment Appointment [facility] Work Phone: Start: 11-11-2016 End: 11-18-2015 *Hepatic Function Panel *Hepatic Function Panel [facility] Work Phone: Start: 11-11-2016 End: 11-18-2015 Lipid panel [AGGREGATE] *Lipid Profile CC PCP [facility] Work Phone: Start: 11-11-2016 End: 11-18-2015 *Hepatic Function Panel *Hepatic Function Panel [facility] Work Phone: Start: 11-11-2016 End: 11-18-2015 Lipid panel [AGGREGATE] *Lipid Profile CC PCP [facility] Work Phone: Start: 09-28-2016 End: 09-28-2016 Appointment Appointment [facility] Work Phone: Start: 05-26-2016 End: 05-26-2016 ERIC REYES [facility] Work Phone: Start: 05-26-2016 End: 05-26-2016 Follow Up Appt 6 months Follow Up Appt 6 months [facility] Work Phone: Start: 05-26-2016 End: 05-26-2016 ERIC REYES [facility] Work Phone: Start: 05-26-2016 End: 05-26-2016 Follow Up Appt 6 months Follow Up Appt 6 months [facility] Work Phone: Start: 11-10-2015 End: 11-12-2015 *Hepatic Function Panel *Hepatic Function Panel [facility] Work Phone: Start: 11-10-2015 End: 05-20-2016 ERIC REYES [facility] Work Phone: Start: 11-10-2015 End: 11-10-2015 Echocardiography Echocardiogram (complete) [facility] Work Phone: Start: 11-10-2015 End: 11-10-2015 Follow Up Appt 6 months Follow Up Appt 6 months [facility] Work Phone: Start: 11-10-2015 End: 11-12-2015 Lipid panel [AGGREGATE] *Lipid Profile CC PCP [facility] Work Phone: Start: 11-10-2015 End: 11-12-2015 *Hepatic Function Panel *Hepatic Function Panel [facility] Work Phone: Start: 11-10-2015 End: 05-20-2016 ERIC REYES [facility] Work Phone: Start: 11-10-2015 End: 11-10-2015 Echocardiography Echocardiogram (complete) [facility] Work Phone: Start: 11-10-2015 End: 11-10-2015 Follow Up Appt 6 months Follow Up Appt 6 months [facility] Work Phone: Start: 11-10-2015 End: 11-12-2015 Lipid panel [AGGREGATE] *Lipid Profile CC PCP [facility] Work Phone: Start: 1952 Depression Screening Depression Screening [facility] Start: 1940 Lipid panel Lipid Panel [facility] Start: 1940 Screening for osteoporosis Bone Density Scan [facility] End: 12-12-2023 CT Chest WO and CT angiogram Coronary arteries W contrast IV [facility] [employer] Work Phone: Comment on above: Once for 1 Occurrences starting 12/12/19 24 until 12/12/2023 ECG 12 lead - CLINIC PERFORMED ECG 12 lead - CLINIC PERFORMED CV ECG Routine Severe aortic stenosis 01/04/2024 11:54 AM EDT [employer] Work Phone: Patient Education [facility] Work Phone: Immunizations Immunization Date Immunization Notes Care Provider Fa [facility] 01-05-2023 influenza virus vaccine, unspecified formulation Thaddeus Mckeon MD Work Phone: [facility] [employer] 12-27-2017 influenza, injectabl e, quadrivalent, preservative free [facility] 12-27-2017 influenza, seasonal, injectable [facility] Payers Date Payer Category Payer Medicare UNKN 2024 Unknown 2024 Unknown [id number] 2024 Medicaid [id number] 2024 Self-pay [id number] 2023 Medicare [employer] MEDICA RE [employer] SECURE [id number] 2023-Present [address] [place] [address] Medicare HMO [id number] 2023 Medicare O [employer]ARE SECURE [id number] 2016 Medicare [id number] Unknown [id number] 2.16.840.1.890878.3.579.2.462 Unknown [id number] 2.16.840.1.837926.3.579.2.462 Unknown [id number] 2.16.840.1.854045.3.579.2.462 Unknown [id number] 2.16.840.1.797050.3.579.2.462 Unknown [id number] 2.16.840.1.878436.3.579.2.462 Unknown [id number] 2.16.840.1.838358.3.579.2.462 Unknown [id number] 2.16.840.1.387227.3.579.2.462 Unknown [id number] 2.16.840.1.015342.3.579.2.462 Unknown [id number] 2.16.840.1.933645.3.579.2.462 Unknown [id number] 2.16.840.1.508219.3.579.2.462 Unknown [id number] 2.16.840.1.180207.3.579.2.462 Unknown [id number] 2.16.840.1.503475.3.579.2.462 Unknown [id number] 2.16.840.1.700791.3.579.2.462 Unknown [id number] 2.16.840.1.745125.3.579.2.462 Unknown [id number] 2.16.840.1.171857.3.579.2.462 Unknown [id number] 2.16.840.1.111079.3.579.2.462 Unknown [id number] 2.16.840.1.960592.3.579.2.462 Unknown [id number] 2.16.840.1.566672.3.579.2.462 Unknown [id number] 2.16.840.1.887817.3.579.2.462 Unknown [id number] 2.16.840.1.959708.3.579.2.462 Unknown [id number] 2.16.840.1.284217.3.579.2.462 Unknown [id number] 2.16.840.1.274443.3.579.2.462 Unknown [id number] 2.16.840.1.559664.3.579.2.462 Unknown [id number] 2.16.840.1.287968.3.579.2.462 Unknown [id number] 2.16.840.1.218937.3.579.2.462 Unknown [id number] 2.16.840.1.738828.3.579.2.462 Unknown [id number] 2.16.840.1.417724.3.579.2.462 Unknown [id number] 2.16.840.1.974357.3.579.2.462 Unknown [id number] 2.16.840.1.056702.3.579.2.462 Unknown [id number] 2.16.840.1.359430.3.579.2.462 Unknown [id number] 2.16.840.1.467718.3.579.2.462 Unknown [id number] 2.16.840.1.543962.3.579.2.462 Unknown [id number] 2.16.840.1.931222.3.579.2.462 Unknown [id number] 2.16.840.1.032676.3.579.2.462 Unknown [id number] 2.16.840.1.455301.3.579.2.462 Unknown [id number] 2.16.840.1.401975.3.579.2.462 Unknown [id number] 2.16.840.1.637149.3.579.2.462 Unknown [id number] 2.16.840.1.637966.3.579.2.462 Unknown [id number] 2.16.840.1.136350.3.579.2.462 Social History Date Type Detail Facility Start: 03-04-2021 Tobacco smoking stat [facility] Unknown if ever smoked [facility] Start: 12-28-2017 Non-smoker [facility] Start: 1940 Sex Assigned At Female [facility] Start: 2023 End: 01-10-2024 Tobacco smoking status [facility] Never smoked tobacco [facility] Start: 2023 Tobacco use and exposure Smokeless tobacco non-user [facility] Start: 11-21-2023 End: 01-04-2024 Alcoholic beverage intake Lifetime non-drinker (finding) [facility] Start: 11-21-2023 End: 01-04-2024 History of Social function [facility] Start: 11-21-2023 End: 01-04-2024 Tobacco use panel [facility] Start: 1940 Sex assigned at Not on file [facility] Start: 10-18-2021 End: 06-25-2024 Sex Female (finding) [facility] Medical Equipment Procedure Code Equipment Code [...] Valve Aor Soumya 3 Ultra 23mm - [id number] - [id number] Start: 12-25-2023 Comment on above: Description: [id number] Device Perclose Prostyle - [id number] Start: 12-25-2023 Device Perclose Prostyle - [id number] Start: 12-25-2023 DOUGH,CEMENT [id number] FDA Start: [...] under Media [facility] 04-03-2024 Miscellaneous Notes Records received and scanned under Media I called [facility] and she requested me to fax med recs release to [phone] I faxed this morning. Confirmed 04/02 at 5:45p I spoke w/ Juana in Dr. Garces's office, asking for echo order to be faxed. I placed Teofilo brennan DNP to sign, order needs faxed to Juana's attention @ [phone]. Time frame dates given to Juana for completion of OV/EKG/echo. KCCQ mailed to pt. ----- Message from JEREMIE Saldaña CNP sent at 01/04/2024 1:51 PM EDT ----- Please call [facility] office and advise regarding registry requirements of one month and one yr appts and echo. Will likely need phone call for KCCQ. documented in this encounter [facility] 04-01-2024 Telephone encounter Note I called [facility] and she requested me to fax med recs release to [phone] I faxed this morning. Confirmed 04/02 at 5:45p [facility] 04-01-2024 Miscellaneous Notes I called [facility] and she requested me to fax med recs release to [phone] I faxed this morning. I spoke w/ Juana in Dr. Garces's office, asking for echo order to be faxed. I placed order, Teofilo David DNP to sign, order needs faxed to [place]'s attention @ [phone]. Time frame dates given to [place] for completion of OV/EKG/echo. KCCQ mailed to pt. ----- Message from JEREMIE Saldaña CNP sent at 01/04/2024 1:51 PM EDT ----- Please call [place] office and advise regarding registry requirements of one month and one yr appts and echo. Will likely need phone call for KCCQ. documented in this encounter [facility] 04-01-2024 Miscellaneous Notes I called [place] and she requested me to fax med recs release to [phone] I faxed this morning. Confirmed 04/02 at 5:45p I spoke w/ Juana in Dr. Gacres's office, asking for echo order to be faxed. I placed Teofilo brennan DNP to sign, order needs faxed to [place]'s attention @ [phone]. Time frame dates given to [place] for completion of OV/EKG/echo. KCCQ mailed to pt. ----- Message from JEREMIE Saldaña CNP sent at 01/04/2024 1:51 PM EDT ----- Please call [place] office and advise regarding registry requirements of one month and one yr appts and echo. Will likely need phone call for KCCQ. documented in this encounter [facility] 01-04-2024 Telephone encounter Note I spoke w/ Juana in Dr. Garces's office, asking for echo order to be faxed. I placed Teofilo brennan DNP to sign, order needs faxed to [place]'s attention @ [phone]. Time frame dates given to [place] for completion of OV/EKG/echo. KCCQ mailed to pt. [facility] 01-04-2024 Telephone encounter Note ----- Message from JEREMIE Saldaña CNP sent at 01/04/2024 1:51 PM EDT ----- Please call [place] office and advise regarding registry requirements of one month and one yr appts and echo. Will likely need phone call for KCQ. [facility] 01-04-2024 History of Present illness Narrative Images from the original note were not included. [facility] [place] [address] [facility] [address] Dept: [phone] Dept Visit type: Established : 1940 Reason for Visit: Cardiac Valve Problem (One week post TAVR) Assessment and Plan 1. Chronic atrial fibrillation (HCC). HR stable. Continue Apixaban 2. Severe aortic stenosis. S/p tAVR. Continue Eliquis. Will contact [place] regarding follow up and registry requirements. SBE prophylaxis. Plan echo in one month 3. Stage 3a chronic kidney disease (HCC). Renal function remains stable post procedure. Advised that kidney function should be followed correction. GFR 27--> 46 4. Left heart failure (HCC). Improved after TAVR, EF 30%--> 50 %, continue furosemide, Aldactone, Farxiga, metoprolol (allerg to landon/ARB) Plan follow up in [place] Subjective Ms Call is an 83 yr old female with a PMH of permanent AF, HFrEF, HTN, HPL, CKD stage 3b, obesity, GERD, and severe with EF 30%, mean and peak gradients 49/71 mm Hg. She underwent cardiac cath at [place] which showed non obstructive CAD. She underwent [...] wrist complaints. She wishes to follow in [place] as travel is difficult for her Allergies [...] (left ventricular hypertrophy) Morbid obesity ([facility]) Osteoarthritis Vitamin D deficiency Social History Tobacco Use Smoking status: Never Smokeless tobacco: Never Substance Use Topics Alcohol use: Never Past Surgical History: Procedure Laterality Date APPENDECTOMY CARDIAC CATHETERIZATION N/A 12/25/2023 Performed by Harjeet Huffman MD at [facility] OR CATARACT EXTRACTION HYSTERECTOMY No family history [...] JEREMIE Ruiz CNP documented in this encounter [facility] 12-26-2023 Nurse Note Discharge instructions given to patient and daughter. Patient verbalizes understanding of medication changes and follow up appointments, and activity restrictions. Discharged to home with daughter. [facility] 12-26-2023 Nurse Note Discharge instructions given to patient and daughter. Patient verbalizes understanding of medication changes and follow up appointments, and activity restrictions. Discharged to home with daughter. documented in this encounter [facility] 12-26-2023 Note Attestation signed by Harjeet [...] Referral has been made to the [facility] Outpatient Cardiac Rehabilitation Program. Last Labs: Lab Results Component Value Date WBC 11.6 (H) 12/26/2023 HGB 14.0 12/26/2023 HCT 43.0 12/26/2023 MCV 97.9 12/26/2023 PLT 154 10/ (more content not included)... [facility] 12-26-2023 Consult note Associated Order (s): IP CONSULT TO CARDIAC REHAB Received referral and reviewed chart. Phase II Cardiopulmonary Rehab Referral discussed with Brianne Call. Patient prefers cardiopulmonary rehab at [place] [facility]. Given information on program at preferred location. [facility] 12-26-2023 Note Received referral an d reviewed chart. Phase II Cardiopulmonary Rehab Referral discussed with Brianne Call. Patient prefers cardiopulmonary rehab at [place] [facility]. Given information on program at preferred location. [facility] 12-26-2023 Consult note Associated Order (s): IP CONSULT TO CARDIAC REHAB Received referral and reviewed chart. Phase II Cardiopulmonary Rehab Referral discussed with Brianne Call. Patient prefers cardiopulmonary rehab at [place] [facility]. Given information on program at preferred location. documented in this encounter [facility] 12-26-2023 Note Atrial fibrillation Poor R wave progression, CONSIDER ANTERIOR INFARCT ST and T abnormality Electronically Signed On 12-26-2023 09:21:43 EDT by Austin Carmona [facility] 12-26-2023 Note Atrial fibrillation Poor R wave progression, CONSIDER ANTERIOR INFARCT ST and T abnormality Electronically Signed On 12-26-2023 09:21:43 EDT by Austin Carmona [facility] 12-26-2023 Note IMPRESSION: Atrial fibrillation Poor R wave progression, CONSIDER ANTERIOR INFARCT ST and T abnormality Electronically Signed On 12-26-2023 09:21:43 EDT by Austin [place] [facility] 12-25-2023 Hospital Discharge instructions JEREMIE Ruiz CNP - 12/25/2023 12:24 PM EDT - Please call the Heart Valve Clinic with any questions: [phone] -You will have have the following follow [...] unless otherwise specified. documented in this encounter [facility] 12-25-2023 Note Patient: Brianne reynolds Procedure Summary Date: 12/25/23 Room / Location: [facility] Operating Room Anesthesia Start: 945 Anesthesia Stop: [...] once all PACU criteria has been met. [facility] 12-25-2023 Note Patient: Brianne reynolds Procedure Summary Date: 12/25/23 Room / Location: [facility] Operating Room Anesthesia Start: 945 Anesthesia Stop: [...] opportunity for questions and acknowledgement of understanding. [facility] 12-25-2023 Note Arterial Line: Date/Time: 12/25/2023 [...] Performed: Other Other staff: Harjeet Huffman MD [facility] 12-25-2023 Note Formatting of this n [...] The valve was passed through the 14 Burkinan sapient E sheath into the descending thoracic [...] patient was decannulated transferred stable to recovery. [employer] Phone: 12-25-2023 Note Formatting of this n ote might be different from the original. Date of surgery 12/25/2023 Cardiothoracic Surgeon: Tien Cornell MD, [facility] Preoperative diagnosis: Severe, symptomatic aortic valve [...] The valve was passed through the 14 Burkinan sapient E sheath into the descending thoracic [...] patient was decannulated transferred stable to recovery. [employer] Phone: 12-25-2023 Miscellaneous Notes Date of surgery [...] The valve was passed through the 14 Burkinan sapient E sheath into the descending thoracic [...] stable to recovery. documented in this encounter [facility] 12-25-2023 Attending History and physical note H&P reviewed. The patient was examined and there are no changes to the H&P. Source Note - Arlene Velez APRN - SPECIAL EDUCATION ASSOCIATE - 12/22/2023 12:39 PM EDT Images from the original note were not included. H+ P copied to chart from (office provider's name Mónica David APRN) progress note dated 12/12/23 on behalf of (procedural physician's name Dr. Huffman). Expand All Collapse All [facility] [place] [address] [place] [address] Dept: [phone] Dept Visit type: Established : 1940 Reason [...] mm Hg. She underwent cardiac cath at [place] which showed non obstructive CAD. He kidney [...] mg IntraVENous Once Mónica David APRN - SPECIAL EDUCATION ASSOCIATE sodium chloride 0.9 % bolus 500 mL [...] Independent interpretation of tests: JEREMIE Ruiz CNP [employer] Phone: 12-25-2023 History and physical note H&P [...] name Dr. Huffman). Expand All Collapse All [facility] [place] [address] [facility] [address] Dept: [phone] Dept Visit type: Established : 1940 Reason [...] mm Hg. She underwent cardiac cath at [place] which showed non obstructive CAD. He kidney [...] JEREMIE Ruiz CNP documented in this encounter [facility] 12-25-2023 Note H&P reviewed. The pa camden was examined and there are no changes to the H&P. [facility] 12-22-2023 History and physical note Images from the original note were not included. H+ P copied to chart from (office provider's name Mónica David APRN) progress note dated 12/12/23 on behalf of (procedural physician's name Dr. Huffman). Expand All Collapse All [facility] [place] [address] [place] [address] Dept: [phone] Dept Visit type: Established : 1940 Reason [...] mm Hg. She underwent cardiac cath at [place] which showed non obstructive CAD. He kidney [...] mg IntraVENous Once Mónica David APRN - SPECIAL EDUCATION ASSOCIATE sodium chloride 0.9 % bolus 500 mL [...] interpretation of tests: Mónica David APRN - SPECIAL EDUCATION ASSOCIATE Associated attestation - Harjeet Huffman MD - [...] We will proceed with the planned procedure. [facility] 12-22-2023 History and physical note Images from the original note were not included. H+ P copied to chart from (office provider's name Mónica David APRN) progress note dated 12/12/23 on behalf of (procedural physician's name Dr. Huffman). Expand All Collapse All [facility] - [address] [address] Dept: [phone] Dept Visit type: Established : 1940 Reason [...] mm Hg. She underwent cardiac cath at [place] which showed non obstructive CAD. He kidney [...] mg IntraVENous Once Mónica David APRN - SPECIAL EDUCATION ASSOCIATE sodium chloride 0.9 % bolus 500 mL [...] interpretation of tests: Mónica David APRN - SPECIAL EDUCATION ASSOCIATE Associated attestation - Harjeet Huffman MD - [...] the planned procedure. documented in this encounter [facility] 12-22-2023 Note Attestation signed by Harjeet [...] to chart from (office provider's name Mónica David, JEREMIE) progress note dated 12/12/23 on behalf of (procedural physician's name Dr. Huffman). Expand All Collapse All [facility] [place] [address] [facility] [address] Dept: [phone] Dept Visit type: Established : 1940 Reason [...] mm Hg. She underwent cardiac cath at [place] which showed non obstructive CAD. He kidney [...] spironolactone (Aldactone) 25 (more content not included)... [facility] 12-22-2023 Note Attestation signed by Harjeet [...] name Dr. Huffman). Expand All Collapse All [facility] - [address] [address] Dept: [phone] Dept Visit type: Established : 1940 Reason [...] mm Hg. She underwent cardiac cath at [place] which showed non obstructive CAD. He kidney [...] spironolactone (Aldactone) 25 (more content not included)... [facility] 12-21-2023 Note Pre TAVR phone call placed. Reviewed, procedure, instructions and meds. Confirmed Eliquis, and Dye Allergy Prep med instructions. Pt verbalizes understanding. Pt knows to call [phone] with any concerns. Teofilo Velez CNP notified for prep for procedure orders. Diagnosis: Procedure being done: TF TAVR Date/time of procedure: 12/25/2023 @ 9:15 am Surgeon: Dr. Huffman 2nd surgeon: Dr. Olsen Admission type: To be admitted Anesthesia: MAC Completed: H&P/BNP/CBC/CMP/CXR/EKG Date completed: BMP 12/19/23, 12/12/23 Additional orders Dye Allergy Prep [facility] 12-15-2023 Note Patient: Brianne reynolds Procedure Information Date/Time: 12/25/23914 Procedures: TRANSCATHETER AORTIC VALVE REPLACEMENT, TRANSTHORACIC ECHOCARDIOGRAM TRANSCATHETER AORTIC VALVE REPLACEMENT, TRANSTHORACIC ECHOCARDIOGRAM (Chest) Location: [facility] Operating Room Surgeons: Harjeet Huffman MD; Juan [...] Records in media Carolina Waldron APRN - SPECIAL EDUCATION ASSOCIATE JOB Screening Labs: Lab Results Component Value [...] 71 mmHg Equipment Requests: Additional Equipment Requests [facility] 12-12-2023 History of Present illness Narrative Pts symptoms of the reaction have all gone away. Pt states she feels back to normal. Pt came back from CT and pts face is red and she states she is starting to progressively get itchy. Mónica David NP is here at this time and order medications. documented in this encounter [facility] 12-12-2023 History of Present illness Narrative Images from the original note were not included. [facility] [place] [address] [facility] [address] Dept: [phone] Dept Visit type: Established : 1940 Reason [...] mm Hg. She underwent cardiac cath at [place] which showed non obstructive CAD. He kidney [...] mg IntraVENous Once Mónica David APRN - SPECIAL EDUCATION ASSOCIATE sodium chloride 0.9 % bolus 500 mL [...] JEREMIE Ruiz CNP documented in this encounter [facility] 12-12-2023 Note Pt came back from CT and pts face is red and she states she is starting to progressively get itchy. Mónica David VICE PRESIDENT [employer] is here at this time and order medications. [facility] 12-06-2023 Note Message reviewed. Re commend CTA with IV hydration. Can get pre procedure labs at time of CTA. [facility] 11-21-2023 History of Present illness Narrative Images from the original note were not included. [facility] [address] [facility] [address] Dept: [phone] Dept Loc: [phone] Today's Visit Location: TAVR (transcather aortic valve replacement) Clinic [facility] Cardiology [address] [place] [address] Visit type: Senior Health Assessment at TAVR [...] agree with cardiology plan as discussed with strip feeder Dr. Huffman and CTS Dr. Reed on [...] Patient has already named her Power of Semiconductor Assembler for Healthcare and Finances (Both are her daughter Shama López) I recommended patient follow-up with [facility] (phone: [phone] fax: [phone]) as needed for memory testing. 4. Drug-induced [...] Mean Gradient of 49. Dr. Garces in [place]. No aortic valve area mentioned. A fib [...] no=0 points)0 - patient rents room from [facility]. Rajiv (son) lives w pt Reduce [...] [] Daughter Shama López (financial Power of Semiconductor Assembler) is on bank acct but patient manages [...] phrases are mis-transcribed.) documented in this encounter [facility] 11-21-2023 Instructions Thaddeus Mckeon MD - 11/21/2023 3:30 PM EDT GERIATRICS DISCHARGE INSTRUCTIONS: Follow-up with [facility] (phone: [phone] fax: [phone]) as needed for memory testing. Please BEGIN [...] risk of falls. documented in this encounter [facility] 11-21-2023 Evaluation + Plan note Associated Problem(s): Drug-induced bradycardia HR 58 bpm today but no syncope, presyncope, falls Patient asymptomatic today Patient taking lopressor 12.5mg po bid - I encouraged patient to discuss with her cardiologists/PCP (primary care provider) regarding change of meds given her advanced age and increased risk of falls [facility] 11-21-2023 Miscellaneous Notes Associated Problem(s): Drug-induced [...] Patient has already named her Power of Semiconductor Assembler for Healthcare and Finances (Both are her daughter Shama López) I recommended patient follow-up with [facility] (phone: [phone] fax: [phone]) as needed for memory testing. Associated Problem(s): [...] Mean Gradient of 49. Dr. Garces in [place]. No aortic valve area mentioned. I agree with cardiology plan as discussed with strip feeder Dr. Huffman and CTS Dr. Reed on same date regarding next steps for further workup/treatment of cardiac disease which likely includes heart cath +/- TAVR. On this date of evaluation, the patient has sufficient understanding of procedure(s) to consent to the procedure(s) being discussed and has adequate social support(s). documented in this encounter [facility] 11-21-2023 History of Present illness Narrative Images from the original note were not included. [facility]: Cardiothoracic Surgery Multidisciplinary Heart Valve Clinic Date: 11/21/23 Patient:Brianne Call 1940 83 y.o. female [id number] Subjective: HPI: Brianne Call 83 y.o. referred [...] Take 40 mg by mouth daily. Historical ProviderMD furosemide (Lasix) 40 MG tablet Take 40 mg by mouth daily. 11/08/23 Historical ProviderMD hydroCHLOROthiazide (HYDRODiuril) 25 MG tablet Take 25 mg by mouth daily. Historical Provider, metoprolol tartrate (Lopressor) 25 MG tablet Take 12.5 mg by mouth 2 times daily. Historical ProviderMD pantoprazole (ProtoNix) 40 MG EC tablet Take 40 mg by mouth every morning (before breakfast). Do not crush, chew, or split. Historical ProviderMD potassium chloride CR (K-Tab) 20 MEQ ER tablet Take 20 mEq by mouth daily. Do not crush, chew, or split. Historical ProviderMD spironolactone (Aldactone) 25 MG tablet Take 25 [...] the near future. Given her proximity to [facility], she would prefer LHC performed there. [...] other diagnostic images. documented in this encounter [facility] 11-21-2023 Evaluation + Plan note Associated Problem(s): Short-term memory loss Chronic Patient with occasional word-finding difficulties I suspect either normal memory loss for aging or possibly MCI (Mild Cognitive Impairment) Patient has already named her Power of Semiconductor Assembler for Healthcare and Finances (Both are her daughter Shama López) I recommended patient follow-up with [facility] (phone: [phone] fax: [phone]) as needed for memory testing. [facility] 11-21-2023 Evaluation + Plan note Associated Problem(s): Chronic atrial fibrillation (HCC) Chronic; Stable Asymptomatic May be nearing renal (kidney) dysfunction requiring reduced dose of eliquis (given Cr nearly 1.5 in past and patient's age >80 yo). May need eliquis 2.5mg po bid instead of 5mg po bid in future pending renal (kidney) function [facility] 11-21-2023 Evaluation + Plan note Associated [...] not missing or doubling up on meds [facility] 11-21-2023 Evaluation + Plan note Associated Problem(s): Nonrheumatic aortic valve stenosis S/p AV replacement by Dr. Nagy in 201209/22/23 Transthoracic Echo (TTE) noted severe aortic stenosis. Mean Gradient of 49. Dr. Garces in [place]. No aortic valve area mentioned. I agree with cardiology plan as discussed with strip feeder Dr. Huffman and CTS Dr. Reed on same date regarding next steps for further workup/treatment of cardiac disease which likely includes heart cath +/- TAVR. On this date of evaluation, the patient has sufficient understanding of procedure(s) to consent to the procedure(s) being discussed and has adequate social support(s). [facility] 11-21-2023 History of Present illness Narrative Images from the original note were not included. [facility] [address] [facility] [address] Dept: [phone] Dept Visit type: New : 1940 Reason for Visit: Cardiac Valve Problem Assessment and Plan 1. LV dysfunction 2. Stenosis of prosthetic aortic valve, initial encounter - ECG 12 lead - CLINIC PERFORMED This is a very pleasant 83 y.o. 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 she is clearly in need of aortic valve replacement, likely [id number] TAVR. Will need a diagnostic cath first, [...] Harjeet Huffman MD documented in this encounter [facility] 11-16-2023 Note Received fax referra l to [facility]ve [facility] from Dr. Garces @ [facility]. I spoke w/ Juana, echo images to be pushed to PACS, she will fax lab work. I spoke w/ pt, appt scheduled. Chart made. [facility] Evaluation note No assessment inform ation available [facility] Work Phone: Evaluation note Diagnosis Nonrheumatic aortic valve stenosis- Primary Chronic atrial fibrillation (HCC) Atrial fibrillation Short-term memory loss Memory loss Drug-induced bradycardia Polypharmacy Issue of repeat prescriptions [facility] Diagnosis Stenosis of prosthetic aortic valve, initial encounter- Primary documented in this encounter [facility] [employer] [facility] note* Diagnosis LV dysfunction- Primary Left heart failure Stenosis of prosthetic aortic valve, initial encounter documented in this encounter [facility] [employer] note* Diagnosis Nonrheumatic aortic valve stenosis- Primary Chronic atrial fibrillation (HCC)- Primary Atrial fibrillation Nonrheumatic aortic valve stenosis Adverse effect of contrast media, initial encounter Nonrheumatic aortic valve stenosis documented in this encounter [facility] [employer]* Diagnosis Nonrheumatic aortic valve stenosis- Primary Renal failure, unspecified chronicity Stenosis of prosthetic aortic valve, initial encounter Nonrheumatic aortic valve stenosis documented in this encounter [facility] [employer] [facility] note* Diagnosis Nonrheumatic aortic valve stenosis- Primary Nonrheumatic aortic valve stenosis Nonrheumatic aortic valve stenosis documented in this encounter [facility] [employer] [facility] note* Diagnosis Nonrheumatic aortic valve stenosis- Primary Severe aortic stenosis- Primary Aortic valve disorders Nonrheumatic aortic valve stenosis documented in this encounter [facility] [employer] [facility] note* Diagnosis Severe aortic stenosis- Primary Aortic valve disorders documented in this encounter [facility] [employer] [facility] note* Diagnosis Nonrheumatic aortic valve stenosis- Primary Severe aortic stenosis Aortic valve disorders Severe aortic stenosis Aortic valve disorders Nonrheumatic aortic valve stenosis documented in this encounter [facility] [employer] note* Diagnosis Chronic atrial fibrillation (HCC)- Primary Atrial fibrillation Severe aortic stenosis Aortic valve disorders Stage 3a chronic kidney disease (HCC) Left heart failure (HCC) Left heart failure documented in this encounter [facility] [employer] note* Diagnosis Nonrheumatic aortic valve stenosis- Primary Chronic atrial fibrillation (HCC) Atrial fibrillation Short-term memory loss Memory loss Drug-induced bradycardia Polypharmacy Issue of repeat prescriptions S/P TAVR (transcatheter aortic valve replacement) documented in [facility] Diagnosis Nonrheumatic aortic valve stenosis- Primary Chronic atrial fibrillation (HCC) Atrial fibrillation Short-term memory loss Memory loss Drug-induced bradycardia Polypharmacy Issue of repeat prescriptions S/P TAVR (transcatheter aortic valve replacement) documented [facility] this [facility] (narrative)No reason for referral information availableWMount St. [facility] Work Phone: Family History No Family [...] Yes December 26 8 12:21pm Power of Semiconductor Assembler Yes December 26 12:21pm Date Activated Date [...] CTA Angiogram TAVR Arlene Velez APRN - SPECIAL EDUCATION ASSOCIATE [address] [place] [address] Referral ID Status Reason Start Date Expiration Date Visits Re quested Visits Authorized [id number] Closed 12/07/2023 02/05/2024 1 1 Summary Purpose Chief Complaint and Reason for Visit Chief Complaint Admit Date MONTHLY EXAM February 27, 2024 3:12pm LABWORK March 01, 2024 5:00am GROUP HOME LAB WORK March 08 4:00am LABWORK March 15, 2024 2:14pm NEW CONCERN March 15, 2024 4:36pm MONTHLY EXAM April 02, 2024 1 1:01pm GROUP HOME LAB WORK April 09, 2024 5:00am GROUP HOME LAB WORK April 22, 2024 5:00am LABWORK May 07, 2024 5:00am MONTHLY EXAM May 16, 2024 11:05am GROUP HOME LAB WORK June 04, 2024 5 :00am Chief Complaint Admit Date MONTHLY EXAM April 02, 2024 1 1:01pm GROUP HOME LAB WORK April 09, 2024 5:00am GROUP HOME LAB WORK April 22, 2024 5:00am LABWORK May 07, 2024 5:00am MONTHLY EXAM May 16, 2024 11:05am MONTHLY EXAM May 28, 2024 4:2 0pm GROUP HOME LAB WORK June 04, 2024 5 :00am GROUP HOME LAB WORK June 18, 2024 5: 00am GROUP HOME LAB WORK July 02, 2024 5 :00am Chief Complaint Admit Date GROUP HOME LAB WORK April 22, 2024 5:00am LABWORK May 07, 2024 5:00am MONTHLY EXAM May 16, 2024 11:05am MONTHLY EXAM May 28, 2024 4:2 0pm GROUP HOME LAB WORK June 04, 2024 5 :00am GROUP HOME LAB WORK June 18, 2024 5: 00am GROUP HOME LAB WORK July 02, 2024 5 :00am LABWORK July 30, 2024 5:00a m Chief Complaint Admit Date LABWORK May 07, 2024 5:00am MONTHLY EXAM May 16, 2024 11:05am MONTHLY EXAM May 28, 2024 4:2 0pm GROUP HOME LAB WORK June 04, 2024 5 :00am GROUP HOME LAB WORK June 18, 2024 5: 00am GROUP HOME LAB WORK July 02, 2024 5 :00am GROUP HOME LAB WORK July 15, 2024 4 :00am LABWORK July 30, 2024 5:00a m Chief Complaint Admit Date GROUP HOME LAB WORK June 18, 2024 5: 00am GROUP HOME LAB WORK July 02, 2024 5 :00am GROUP HOME LAB WORK July 15, 2024 4 :00am MONTHLY EXAM July 23, 2024 3:15pm LABWORK July 30, 2024 5:00a m GROUP HOME LAB WORK August 14, 2024 5:0 0am GROUP HOME LAB WORK August 27, 2024 5: 00am Chief Complaint Admit Date GROUP HOME LAB WORK June 18, 2024 5: 00am GROUP HOME LAB WORK July 02, 2024 5 :00am GROUP HOME LAB WORK July 15, 2024 4 :00am MONTHLY EXAM July 23, 2024 3:15pm LABWORK July 30, 2024 5:00a m GROUP HOME LAB WORK August 14, 2024 5:0 0am NEW CONCERN August 20, 2024 3:45p m GROUP HOME LAB WORK August 27, 2024 5: 00am Chief Complaint Admit Date GROUP HOME LAB WORK June 18, 2024 5: 00am GROUP HOME LAB WORK July 02, 2024 5 :00am GROUP HOME LAB WORK July 15, 2024 4 :00am MONTHLY EXAM July 23, 2024 3:15pm LABWORK July 30, 2024 5:00a m GROUP HOME LAB WORK August 14, 2024 5:0 0am NEW CONCERN August 20, 2024 3:45p m GROUP HOME LAB WORK August 27, 2024 5: 00am NEW CONCERN September 02, 2024 3:00 pm Chief Complaint Admit Date GROUP HOME LAB WORK July 15, 2024 4 :00am MONTHLY EXAM July 23, 2024 3:15pm LABWORK July 30, 2024 5:00a m GROUP HOME LAB WORK August 14, 2024 5:0 0am NEW CONCERN August 20, 2024 3:45p m GROUP HOME LAB WORK August 27, 2024 5: 00am NEW CONCERN September 02, 2024 3:00 pm GROUP HOME LAB WORK September 24, 2024 4:0 0am Monthly Exam October 01, 2024 4:50 pm LABWORK October 07, 2024 5:00 am GROUP HOME LAB WORK October 09, 2024 5: 00am Chief Complaint Admit Date MONTHLY EXAM July 23, 2024 3:15pm LABWORK July 30, 2024 5:00a m GROUP HOME LAB WORK August 14, 2024 5:0 0am NEW CONCERN August 20, 2024 3:45p m GROUP HOME LAB WORK August 27, 2024 5: 00am NEW CONCERN September 02, 2024 3:00 pm GROUP HOME LAB WORK September 24, 2024 4:0 0am Monthly Exam October 01, 2024 4:50 pm LABWORK October 07, 2024 5:00 am GROUP HOME LAB WORK October 09, 2024 5: 00am GROUP HOME LAB WORK October 22, 2024 5 :00am MONTHLY EXAM October 23, 2024 5:3 0pm Chief Complaint Admit Date GROUP HOME LAB WORK August 27, 2024 5: 00am NEW CONCERN September 02, 2024 3:00 pm GROUP HOME LAB WORK September 24, 2024 4:0 0am Monthly Exam October 01, 2024 4:50 pm LABWORK October 07, 2024 5:00 am GROUP HOME LAB WORK October 09, 2024 5: 00am GROUP HOME LAB WORK October 22, 2024 5 :00am MONTHLY EXAM October 23, 2024 5:3 0pm GROUP HOME LAB WORK November 19 5:00am Additional Source [...] Status: Active Member Role Status Dates Dr. cSott Hull MD Primary Care Provider Active Team [...] Provi guillermo, Attending Provider, Referring Provider Active Singing Messenger Relationship Specialty Start Date End Date Alvarado Hull MD [address] [place] [address] PCP - General Geriatric Medicine 11/21/23 Singing Messenger Relationship Specialty Start Date End Date Alvarado Hull MD [address] [place] [address] PCP - General Geriatric Medicine 11/21/23 Singing Messenger Relationship Specialty Start Date End Date Alvarado Hull MD [address] [place] [address] PCP - General Geriatric Medicine 11/21/23 Singing Messenger Relationship Specialty Start Date End Date Alvarado Hull MD [address] [place] [address] PCP - General Geriatric Medicine 11/21/23 Singing Messenger Relationship Specialty Start Date End Date Alvarado Hull MD [address] [place] [address] PCP - General Geriatric Medicine 11/21/23 Singing Messenger Relationship Specialty Start Date End Date Alvarado Hull MD [address] [place] [address] PCP - General Geriatric Medicine 11/21/23 Singing Messenger Relationship Specialty Start Date End Date Alvarado Hull MD [address] [place] [address] PCP - General Geriatric Medicine 11/21/23 Singing Messenger Relationship Specialty Start Date End Date Alvarado Hull MD [address] [place] [address] PCP - General Geriatric Medicine 11/21/23 Singing Messenger Relationship Specialty Start Date End Date Alvarado Hull MD [address] [place] [address] PCP - General Geriatric Medicine 11/21/23 Singing Messenger Relationship Specialty Start Date End Date Alvarado Hull MD [address] [place] [address] PCP - General Geriatric Medicine 11/21/23 Singing Messenger Relationship Specialty Start Date End Date Alvarado Hull MD [address] [place], [place] [address] PCP - General Geriatric Medicine 11/21/23 Team Status: Inactive Member Role Status Dates Dr. Scott Hull MD Primary Care Provider Active Start: February 27, 2024 End: February 27, 2024 Sara Irizarry VICE PRESIDENT INTEGRATED, VICE PRESIDENT INTEGRATED-C Attending Provider Active Start: February 27, 2024 [...] 2024 End: March 15, 2024 Sara Irizarry VICE PRESIDENT INTEGRATED, VICE PRESIDENT INTEGRATED-C Attending Provider Active Start: March 15, 2024 [...] 2024 End: August 20, 2024 Sara Irizarry VICE PRESIDENT INTEGRATED, VICE PRESIDENT INTEGRATED-C Attending Provider Active Start: August 20, 2024 [...] 2024 End: September 02, 2024 Sara Irizarry VICE PRESIDENT INTEGRATED, VICE PRESIDENT INTEGRATED-C Attending Provider Active Start: September 02, 2024 [...] Inactive Member Role/Relationship Status Dates Dr. Scott Hlul MD Primary Care Provider Active Start: July [...] End: August 20, 2024 Sara Irizarry NP VICE PRESIDENT INTEGRATED-C Attending Provider Active Start: August 20, 2024 [...] 2024 End: September 02, 2024 Sara Irizarry VICE PRESIDENT INTEGRATED, VICE PRESIDENT INTEGRATED-C Attending Provider Active Start: September 02, 2024 [...] End: August 20, 2024 Sara Irizarry NP VICE PRESIDENT INTEGRATED-C Attending Provider Active Start: August 20, 2024 [...] End: September 02, 2024 Sara Irizarry NP VICE PRESIDENT INTEGRATED-C Attending Provider Active Start: September 02, 2024 [...] 2024 End: October 23, 2024 Sara Irizarry NP VICE PRESIDENT INTEGRATED-C Attending Provider Active Start: October 23, 2024 [...] End: September 02, 2024 Sara Irizarry NP VICE PRESIDENT INTEGRATED-C Attending physician Active Start: September 02, 2024 [...] October 07, 2024 End: October 07, 2024 Joe PORTILLO MD Attending physician Active [...] End: October 23, 2024 Sara Irizarry NP, VICE PRESIDENT INTEGRATED-C Attending physician Active Start: October 23, 2024 [...] REQUEST INFUSION TREATMENT Harjeet Huffman MD [address] [place] [address] [address] [place] [address] Referral ID Status Reason Start Date Expiration Date Visits Re quested Visits Authorized [id number] Closed 12/12/2023 12/06/2024 1 1 Specialty Diagnoses / Procedures Referred By Contac t Referred To Contact Radiology Diagnoses Nonrheumatic aortic valve stenosis Procedures CTA Angiogram TAVR Arlene Velez APRN - CNP [address] [place] [address] Referral ID Status Reason Start Date Expiration Date Visits Re quested Visits Authorized [id number] Closed 12/07/2023 02/05/2024 1 1 Specialty Diagnoses / Procedures Referred By Contac t Referred To Contact Diagnoses Nonrheumatic aortic valve stenosis Procedures TRANSCATHETER AORTIC VALVE REPLACEMENT, TRANSTHORACIC ECHOCARDIOGRAM TRANSCATHETER AORTIC VALVE REPLACEMENT, TRANSTHORACIC ECHOCARDIOGRAM Harjeet Huffman MD [address] [facility] [address] [place] [address] [address] [place] [address] Referral ID Status Reason Start Date Expiration Date Visits Re quested Visits Authorized [id number] 1 1 Reason Comments Cardiac Valve Problem [...] (Given - Provider: Edgar Warner APRN - TURRET LATHE SET UP OPERATOR) dapagliflozin (Farxiga) tablet 10 mg 10 mg, [...] Kimball RN - Reason: Medication not available) 09 (Given - Provider: Leticia Arshad RN) furosemide [...] Mirella Kimball RN)2006 (Given - Provider: Ellen Durant, LEW) 0900 (Given - Provider: Leticia Arshad RN) [...] irrigation solution (CANCELED) As needed, Starting on 12/25/23 at 1046, Intraprocedure 1046 (Given - Provider: Harjeet Huffman MD) INFORMATION SOURCE (unrecogn ized section and content) DATE CREATED AUTHOR 04/04/2024 [facility] DATE CREATED AUTHOR [facility] 01/30/2025 [facility] FOR RECORDS PERTAINING TO PATIENTS WHO ARE [...] BE BASED ON THE PRIMARY CLINICAL RECORDS. [employer] provides no warranty or guarantee of the accuracy or completeness of information in this document.
[2025-02-28 08:14] LABS: Anion Gap 12 (5-15); BUN 30 mg/dL (4-19); BUN/Creat Ratio 16.4 RATIO (10-20); Calcium,Total 9.3 mg/dL (7.6-11.0); Carbon Dioxide 25.4 mmol/L (21.0-32.0); Chloride 100 mmol/L (98-108); Glucose 101 mg/dL (70-99); Potassium 4.1 mmol/L (3.3-5.1)
== END ==
LOC: OLS.WHLEAS 05:00
PROVIDERS: PCP Family Medicine Geriatric Medicine; Visit Provider Internal Medicine
DX: I69.351 Hemiplegia and hemiparesis following cerebral infarction affecting right dominant side (principal); I69.320 Aphasia following cerebral infarction; I69.398 Other sequelae of cerebral infarction; I69.391 Dysphagia following cerebral infarction; I10 Essential (primary) hypertension
CPT/HCPCS: 36415; 80048

== ENCOUNTER → 2025-03-11 04:00 | Outpatient (REF) | payer MEDICARE, MEDICAID, SELFPAY ==
--- OUTSIDE RECORDS SUMMARY | 2025-03-11 03:32 | XMS RPT_ITS | CCD ---
Author Organization [facility] Care Team Providers Care Director Digital Sales Name Role Phone Lucrecia Paige N Unavailable [...] Sanchez MD, Dr. Diaz Attending Provider [phone] Kurtis GUNN, Dr. Scott Sabillon Primary Care Provider [phone] Daniel GUNN, Joe Attending Provider Unavailagustin Sanchez MD, Joe Referring Provider Unavailagustin Hull MD, Dr. Scott Sabillon Primary Care Provider Daniel GUNN, Joe Attending Provider Unavailagustin Sanchez MD, Dr. Diaz Attending Provider [phone] Sara Cormier Attending Provider Kurtis GUNN, Dr. Scott Sabillon Primary Care Provider [phone] Daniel GUNN, Joe Attending Provider Unavailagustin Hull [...] e Kurtis, Scott Chi Primary Care Unavailable Ukrtis, Scott Chi Primary Care Unavailable Oleghe OLS, [...] Unavailable Kurtis, Scott Chi Referring Unavailable Tickton PUMP AND BLOWER OPERATOR, Sara Attending Unavailable Kurtis, Scott Chi Primary Care Unavailable Tickton PUMP AND BLOWER OPERATOR, Sara Attending Unavailable Kurtis, Scott Chi Primary Care Unavailable Oleghe, Efewongbe Attending Unavailable Kurtis, Scott Chi Primary Care Unavailable Tickton PUMP AND BLOWER OPERATOR, Sara Attending Unavailable Kurtis, Scott Chi Primary Care Unavailable Oleghe, Efewongbe Attending Unavailable Kurtis, Scott Chi Primary Care Unavailable Oleghe, Efewongbe Attending Unavailable Kurtis, Scott Chi Primary Care Unavailable Tickton PUMP AND BLOWER OPERATOR, Sara Attending Unavailable Kurtis, Scott Chi Primary Care Unavailable Kurtis, Scott Chi Primary Care Unavailable Tickton PUMP AND BLOWER OPERATOR, Sara Attending Unavailable Donovan PUMP AND BLOWER OPERATOR, Sara Attending Unavailable Kurtis, Scott Chi Referring [...] [LANDON Inhibitors] drug allergy 11-06-19 16 Other [facility] Work Phone: (15 sources) Lisinopril Drug Allergy 03-04-20 21 [facility] (17 sources) Lisinopril Propensity to adverse reactions 11-14-19 24 [facility] (17 sources) sacubitril Drug Allergy 11-14-19 24 [facility] (17 sources) Valsartan Propensity to adverse reactions 11-14-19 24 [facility] (14 sources) Iodinated Contrast Media Propensity to adverse reactions 12-12-19 24 [facility] (10 sources) dapagliflozin Drug Allergy 02-07-[address] [facility] (10 sources) sacubitril Drug Allergy 02-07-20 cough [facility] (10 sources) Triiodobenzoic Acids Allergy to substance 02-07-20 Hives [facility] Comment on above: hives, red face and itching (10 sources) valsartan Drug Allergy 02-07-20 cough [facility] (1 source) dapagliflozin Drug Allergy 01-14-20 [facility] Repository (1 source) Lisinopril Drug Allergy 01-14-20 [facility] (1 source) sacubitril Drug Allergy 01-14-20 [facility] (1 source) valsartan Drug Allergy 01-14-20 [facility] (1 source) Iodinated Contrast Media Drug allergy (disorder) 01-14-20 [facility] Repository Medications Current Medications Medication [...] tablet by mouth twice daily PANTOPRAZOLE SODIUM [id number] Gerald Barragan MD potassium chloride 20 meq [...] CAPS One tablet by mouth daily CELECOXIB [id number] Mónica Gutierrez PA-C diphenhydrAMINE hydrochloride 25 mg oral tablet (2 sources) Histamine-1 Receptor Antagonist Start: 12-25-2023 End: 12-25-2023 take 50 mg by mouth once 50 mg, Oral, Once, On Mon12/25/23 at 0730, For 1 dose, Preprocedure docusate sodium 50 mg / sennosides, alf 8.6 mg oral tablet (15 sources) Start: [...] current use of anticoagulant; Translations: [long term (current) use of anticoagulants] 11-22-2023 Episodic Other [...] above: 11/03/[address] Jeyson sánchez @ [facility], and 01/18/2013 per Kahlil Burgess Residual [...] aftercare (18 sources) Polypharmacy ; Translations: [Other middle or intermediate school principal (current) drug therapy] Onset: 11-21-2023 11-21-2023 Episodic Other aftercare (2 sources) Other custodial (current) drug therapy; Translations: [Other custodial (current) drug therapy] Onset: 11-21-2023 Episodic Other [...] Facility Cardiology Visit Reporton Cardiology Visit Report [facility] [address] [place], [place] [address] OFFICE VISIT Date of Service: 01/13/25 MR#: [id number] Acct: [id number] Name: BRIANNE CALL Rep #: [id number] : [id number] Provider: ALBINA martins Age/Sex: 84/F [place] [facility] [place] Status: Signed HPI HPI History of Present Illness Details: This is an 84-year-old female who presents to the office today for cardiovascular follow-up visit. She has history of atrial fibrillation, dyslipidemia, nonischemic cardiomyopathy and aortic valve stenosis status post TAVR with valve in valve. She currently lives at [facility]. From a cardiac standpoint, the patient is [...] Intake Visit Reasons: PER [facility] HE[facility] R[facility] Marketing Representative Required: No Is patient in pain?: No [...] (Reviewed 01/13/25 @ 13:05 by Sara Man PUMP AND BLOWER OPERATOR, PUMP AND BLOWER OPERATOR-C) Atrial fibrillation Osteoarthritis Chronic diastolic (congestive) heart [...] (Reviewed 01/13/25 @ 12:45 by Sara Man PUMP AND BLOWER OPERATOR, PUMP AND BLOWER OPERATOR-C) History of cataract removal with insertion of prosthetic lens History of aortic valve replacement History of appendectomy History of hysterectomy History of right and left heart catheterization History of left heart catheterization H/O right heart catheterization Family History (Reviewed 01/13/25 @ 12:45 by Sara Man PUMP AND BLOWER OPERATOR, PUMP AND BLOWER OPERATOR-C) Father negative for CAD suspected ASD or VSD Mother Acute kidney failure Other Arthritis Hypertension Skin cancer Social History jadon (more content not included)... Normal [facility] Absolute lymphocyte countOrd ered By: Joe Sanchez on 12-17-2024 Lymphocytes Auto (Unsp spec) [#/Vol] 1.63 10*3/uL 0.83-4.51 [facility] Absolute neutrophil countOrd ered By: Joe Sanchez on 12-17-2024 Neutrophils (Bld) [#/Vol] 4.7 10*3/uL 2.0-7.7 [facility] Anion gap in Serum or Plasma Ordered By: Joe Sanchez on 12-17-2024 Anion gap [Moles/Vol] 12 mmol/L 5-[address] [facility] Automated lymphocyte count a s percentage of total leukocytesOrdered By: Joe Sanchez on 12-17-2024 Lymphocytes/100 WBC Auto (Unsp spec) 22.5 % 19-41 [facility] BUN/creatinine ratioOrdered By: Joe Sanchez on 12-17-2024 Urea nitrogen/Creatinine [Mass ratio] 18.8 mg/mg 10-20 [facility] Basophil percentageOrdered B y: Joe Sanchez on 12-17-2024 Basophils/100 WBC (Bld) 1.1 % High 0-1 [facility] Carbon dioxide, total [Moles /volume] in Central venous bloodOrdered By: Yudicrapolynnette Sanchez on 12-17-2024 CO2 [Moles/Vol] 25.6 mmol/L 21.0-32.0 [facility] Chloride assayOrdered By: Lluvia Sanchez on 12-17-2024 Chloride [Moles/Vol] 102 mmol/L 98-108 [facility] Eosinophil percentageOrdered By: claudiocrapolynnette Sanchez on 12-17-2024 Eosinophils/100 WBC (Bld) 1.8 % 0-5 [facility] Erythrocyte distribution wid th ratioOrdered By: Yudicrapolynnette Sanchez on 12-17-2024 Erythrocyte distribution width (RBC) [Ratio] 14.4 % 11.6-14.6 [facility] Erythrocyte distribution wid th standard deviationOrdered By: claudiocrapolynnette Sanchez on 12-17-2024 Erythrocyte distribution width (RBC) [Ratio] 52.1 fl High 35.1-43.9 [facility] Glomerular filtration rate ( GFR) estimation/1.73 sq m using serum, plasma, or whole bOrdered By: Joe Sanchez on 12-17-2024 GFR/1.73 sq M.predicted among non-blacks MDRD (S/P/Bld) [Vol rate/Area] 29 mL/min/{1.73_m2} Low >60 [facility] Comment on above: mL/min/1.73m2 CKD-EP I Creatinine Equation (2020) Hematocrit Auto (Bld) [Volum e fraction]Ordered By: Joe Sanchez on 12-17-2024 Hematocrit (Bld) [Volume fraction] 45.2 % 37-47 [facility] Hemoglobin measurementOrdere d By: Joe Sanchez on 12-17-2024 Hemoglobin (Bld) [Mass/Vol] 14.3 g/dL 12.0-15.0 [facility] Immature granulocytes/100 WB C Auto (Bld)Ordered By: montez Sanchez on 12-17-2024 Immature granulocytes/100 WBC (Bld) 0.600 % 0.0-0.9 [facility] Comment on above: IG% - Immature Granu locytes (promyelocytes, myelocytes and metamyelocytes) > 1% indicates that a LEFT SHIFT is Present. MCV (mean corpuscular volume ) determinationOrdered By: Joe Sanchez on 12-17-2024 MCV (RBC) [Entitic vol] 98.0 fL 81-99 [facility] Mean corpuscular hemoglobin (MCH) determinationOrdered By: Joe Sanchez on 12-17-2024 MCH (RBC) [Entitic mass] 31.0 pg 27.0-32.0 [facility] Mean corpuscular hemoglobin concentration (MCHC) determinationOrdered By: Joe Sanchez on 12-17-2024 MCHC (RBC) [Mass/Vol] 31.6 g/dL Low 32-[address] [facility] Mean platelet volume determi nationOrdered By: Joe Sanchez on 12-17-2024 Platelet mean volume (Bld) [Entitic vol] 12.7 fL High 6.2-12.0 [facility] Monocyte percentageOrdered B y: Joe Sanchez on 12-17-2024 Monocytes/100 WBC (Bld) 9.4 % 0-10 [facility] Neutrophil percentageOrdered By: Joe Sanchez on 12-17-2024 Neutrophils/100 WBC (Bld) 64.6 % 47-70 [facility] Nucleated red blood cell per centageOrdered By: Joe Sanchez on 12-17-2024 Nucleated RBC/100 WBC (Bld) [Ratio] 0 % 0-5 [facility] Platelet countOrdered By: Lluvia Sanchez on 12-17-2024 Platelets (Bld) [#/Vol] 216 10*3/uL 150-450 [facility] Potassium measurement (mass/ volume)Ordered By: Joe Sanchez on 12-17-2024 Potassium (Unsp spec) [Mass/Vol] 4.2 mmol/L 3.3-5.1 [facility] RBC Auto (Bld) [#/Vol]Ordere d By: Joe Sanchez on 12-17-2024 RBC (Bld) [#/Vol] 4.61 10*6/uL 4.2-5.4 [facility] Serum creatinine measurement (mass/volume)Ordered By: Joe Sanchez on 12-17-2024 Creatinine [Mass/Vol] 1.71 mg/dL High 0.70-1.[address] [facility] Serum glucose measurement (m ass/volume)Ordered By: Joe Sanchez on 12-17-2024 Glucose [Mass/Vol] 89 mg/dL 70-99 [facility] Serum or plasma calcium leah urement (mass/volume)Ordered By: Joe Sanchez on 12-17-2024 Calcium [Mass/Vol] 9.4 mg/dL 7.6-11.0 [facility] Serum or plasma urea nitroge n measurement (mass/volume)Ordered By: Joe Sanchez on 12-17-2024 Urea nitrogen [Mass/Vol] 32 mg/dL High 4-19 [facility] Sodium levelOrdered By: Yudi Sanchez on 12-17-2024 Sodium [Moles/Vol] 140 mmol/L 133-145 [facility] White blood cell (WBC) count Ordered By: Joe Sanchez on 12-17-2024 WBC (Bld) [#/Vol] 7.2 10*3/uL 4.4-11.0 [facility] Absolute lymphocyte countOrd ered By: Joe Morrisawaismilton on 11-19-2024 Lymphocytes Auto (Unsp spec) [#/Vol] 1.50 10*3/uL 0.83-4.51 [facility] Absolute neutrophil countOrd ered By: Yudimelissalynnette Morrisawaismilton on 11-19-2024 Neutrophils (Bld) [#/Vol] 4.4 10*3/uL 2.0-7.7 [facility] Anion gap in Serum or Plasma Ordered By: Joe Sanchez on 11-19-2024 Anion gap [Moles/Vol] 11 mmol/L 5-[address] [facility] Automated lymphocyte count a s percentage of total leukocytesOrdered By: Joe Sanchez on 11-19-2024 Lymphocytes/100 WBC Auto (Unsp spec) 22.4 % 19-41 [facility] BUN/creatinine ratioOrdered By: Joe Sanchez on 11-19-2024 Urea nitrogen/Creatinine [Mass ratio] 14.0 mg/mg 10-20 [facility] Basophil percentageOrdered B y: Joe Morrisawaismilton on 11-19-2024 Basophils/100 WBC (Bld) 1.0 % 0-1 [facility] Carbon dioxide, total [Moles /volume] in Central venous bloodOrdered By: Joe Sanchez on 11-19-2024 CO2 [Moles/Vol] 25.7 mmol/L 21.0-32.0 [facility] Chloride assayOrdered By: Lluvia Sanchez on 11-19-2024 Chloride [Moles/Vol] 101 mmol/L 98-108 [facility] Eosinophil percentageOrdered By: Joe Morrisawaismilton on 11-19-2024 Eosinophils/100 WBC (Bld) 1.6 % 0-5 [facility] Erythrocyte distribution wid th ratioOrdered By: Joe Sanchez on 11-19-2024 Erythrocyte distribution width (RBC) [Ratio] 13.6 % 11.6-14.6 [facility] Erythrocyte distribution wid th standard deviationOrdered By: Joe Sanchez on 11-19-2024 Erythrocyte distribution width (RBC) [Ratio] 48.4 fl High 35.1-43.9 [facility] Glomerular filtration rate ( GFR) estimation/1.73 sq m using serum, plasma, or whole bOrdered By: Joe Sanchez on 11-19-2024 GFR/1.73 sq M.predicted among non-blacks MDRD (S/P/Bld) [Vol rate/Area] 28 mL/min/{1.73_m2} Low >60 [facility] Comment on above: mL/min/1.73m2 CKD-EP I Creatinine Equation (2020) Hematocrit Auto (Bld) [Volum e fraction]Ordered By: Joe Sanchez on 11-19-2024 Hematocrit (Bld) [Volume fraction] 40.8 % 37-47 [facility] Hemoglobin measurementOrdere d By: Joe Sanchez on 11-19-2024 Hemoglobin (Bld) [Mass/Vol] 13.4 g/dL 12.0-15.0 [facility] Immature granulocytes/100 WB C Auto (Bld)Ordered By: Joe Sanchez on 11-19-2024 Immature granulocytes/100 WBC (Bld) 0.400 % 0.0-0.9 [facility] Comment on above: IG% - Immature Granu locytes (promyelocytes, myelocytes and metamyelocytes) > 1% indicates that a LEFT SHIFT is Present. MCV (mean corpuscular volume ) determinationOrdered By: Joe Sanchez on 11-19-2024 MCV (RBC) [Entitic vol] 96.5 fL 81-99 [facility] Mean corpuscular hemoglobin (MCH) determinationOrdered By: Joe Sanchez on 11-19-2024 MCH (RBC) [Entitic mass] 31.7 pg 27.0-32.0 [facility] Mean corpuscular hemoglobin concentration (MCHC) determinationOrdered By: Joe Sanchez on 11-19-2024 MCHC (RBC) [Mass/Vol] 32.8 g/dL 32-[address] [facility] Mean platelet volume determi nationOrdered By: Joe Sanchez on 11-19-2024 Platelet mean volume (Bld) [Entitic vol] 11.9 fL 6.2-12.0 [facility] Monocyte percentageOrdered B y: Joe Sanchez on 11-19-2024 Monocytes/100 WBC (Bld) 8.7 % 0-10 [facility] Neutrophil percentageOrdered By: Joe Sanchez on 11-19-2024 Neutrophils/100 WBC (Bld) 65.9 % 47-70 [facility] Nucleated red blood cell per centageOrdered By: Joe Sanchez on 11-19-2024 Nucleated RBC/100 WBC (Bld) [Ratio] 0 % 0-5 [facility] Platelet countOrdered By: Lluvia Sanchez on 11-19-2024 Platelets (Bld) [#/Vol] 230 10*3/uL 150-450 [facility] Potassium measurement (mass/ volume)Ordered By: Joe Sanchez on 11-19-2024 Potassium (Unsp spec) [Mass/Vol] 4.4 mmol/L 3.3-5.1 [facility] Comment on above: Hemolysis present, R esults could be affected. RBC Auto (Bld) [#/Vol]Ordere d By: Joe Sanchez on 11-19-2024 RBC (Bld) [#/Vol] 4.23 10*6/uL 4.2-5.4 [facility] Serum creatinine measurement (mass/volume)Ordered By: Joe Sanchez on 11-19-2024 Creatinine [Mass/Vol] 1.77 mg/dL High 0.70-1.[address] [facility] Serum glucose measurement (m ass/volume)Ordered By: Joe Sanchez on 11-19-2024 Glucose [Mass/Vol] 99 mg/dL 70-99 [facility] Serum or plasma calcium leah urement (mass/volume)Ordered By: Joe Sanchez on 11-19-2024 Calcium [Mass/Vol] 9.2 mg/dL 7.6-11.0 [facility] Serum or plasma urea nitroge n measurement (mass/volume)Ordered By: Joe Sanchez on 11-19-2024 Urea nitrogen [Mass/Vol] 25 mg/dL High 4-19 [facility] Sodium levelOrdered By: Yudi Sanchez on 11-19-2024 Sodium [Moles/Vol] 138 mmol/L 133-145 [facility] White blood cell (WBC) count Ordered By: Joe Sanchez on 11-19-2024 WBC (Bld) [#/Vol] 6.7 10*3/uL 4.4-11.0 [facility] Absolute lymphocyte countOrd ered By: Lluviaclaudiokayleigh Arturohans on 10-22-2024 Lymphocytes Auto (Unsp spec) [#/Vol] 1.30 10*3/uL 0.83-4.51 [facility] Absolute neutrophil countOrd ered By: Joe Sanchez on 10-22-2024 Neutrophils (Bld) [#/Vol] 4.4 10*3/uL 2.0-7.7 [facility] Anion gap in Serum or Plasma Ordered By: Lluviaclaudiokayleigh Arturoawaismilton on 10-22-2024 Anion gap [Moles/Vol] 12 mmol/L 5-[address] [facility] Automated lymphocyte count a s percentage of total leukocytesOrdered By: Joe Arturoawaismilton on 10-22-2024 Lymphocytes/100 WBC Auto (Unsp spec) 19.9 % 19-41 [facility] BUN/creatinine ratioOrdered By: Lluviaclaudiokayleigh Arturohans on 10-22-2024 Urea nitrogen/Creatinine [Mass ratio] 17.5 mg/mg 10-20 [facility] Basophil percentageOrdered B y: Joe Arturoawaismilton on 10-22-2024 Basophils/100 WBC (Bld) 0.9 % 0-1 [facility] Carbon dioxide, total [Moles /volume] in Central venous bloodOrdered By: Lluviaclaudiomelissalynnette Morrisawaismilton on 10-22-2024 CO2 [Moles/Vol] 26.4 mmol/L 21.0-32.0 [facility] Chloride assayOrdered By: Lluvia claudoikayleigh Morrisawaismilton on 10-22-2024 Chloride [Moles/Vol] 99 mmol/L 98-108 [facility] Eosinophil percentageOrdered By: Joe Morrisawaismilton on 10-22-2024 Eosinophils/100 WBC (Bld) 2.3 % 0-5 [facility] Erythrocyte distribution wid th ratioOrdered By: Joe Sanchez on 10-22-2024 Erythrocyte distribution width (RBC) [Ratio] 13.5 % 11.6-14.6 [facility] Erythrocyte distribution wid th standard deviationOrdered By: Joe Sanchez on 10-22-2024 Erythrocyte distribution width (RBC) [Ratio] 49.2 fl High 35.1-43.9 [facility] Glomerular filtration rate ( GFR) estimation/1.73 sq m using serum, plasma, or whole bOrdered By: Joe Sanchez on 10-22-2024 GFR/1.73 sq M.predicted among non-blacks MDRD (S/P/Bld) [Vol rate/Area] 28 mL/min/{1.73_m2} Low >60 [facility] Comment on above: mL/min/1.73m2 CKD-EP I Creatinine Equation (2020) Hematocrit Auto (Bld) [Volum e fraction]Ordered By: Joe Sanchez on 10-22-2024 Hematocrit (Bld) [Volume fraction] 40.3 % 37-47 [facility] Hemoglobin measurementOrdere d By: Joe Sanchez on 10-22-2024 Hemoglobin (Bld) [Mass/Vol] 13.1 g/dL 12.0-15.0 [facility] Immature granulocytes/100 WB C Auto (Bld)Ordered By: Joe Sanchez on 10-22-2024 Immature granulocytes/100 WBC (Bld) 0.600 % 0.0-0.9 [facility] Comment on above: IG% - Immature Granu locytes (promyelocytes, myelocytes and metamyelocytes) > 1% indicates that a LEFT SHIFT is Present. MCV (mean corpuscular volume ) determinationOrdered By: Joe Sanchez on 10-22-2024 MCV (RBC) [Entitic vol] 98.1 fL 81-99 [facility] Mean corpuscular hemoglobin (MCH) determinationOrdered By: Joe Sanchez 10-22-2024 MCH (RBC) [Entitic mass] 31.9 pg 27.0-32.0 [facility] Mean corpuscular hemoglobin concentration (MCHC) determinationOrdered By: Joe Sanchez on 10-22-2024 MCHC (RBC) [Mass/Vol] 32.5 g/dL 32-[address] [facility] Mean platelet volume determi nationOrdered By: Joe Sanchez on 10-22-2024 Platelet mean volume (Bld) [Entitic vol] 12.5 fL High 6.2-12.0 [facility] Monocyte percentageOrdered B y: Joe Sanchez on 10-22-2024 Monocytes/100 WBC (Bld) 9.0 % 0-10 [facility] Neutrophil percentageOrdered By: Joe Sanchez on 10-22-2024 Neutrophils/100 WBC (Bld) 67.3 % 47-70 [facility] Nucleated red blood cell per centageOrdered By: Joe Sanchez on 10-22-2024 Nucleated RBC/100 WBC (Bld) [Ratio] 0 % 0-5 [facility] Platelet countOrdered By: Lluvia Sanchez on 10-22-2024 Platelets (Bld) [#/Vol] 222 10*3/uL 150-450 [facility] Potassium measurement (mass/ volume)Ordered By: Joe Sanchez on 10-22-2024 Potassium (Unsp spec) [Mass/Vol] 4.0 mmol/L 3.3-5.1 [facility] Comment on above: Hemolysis present, R esults could be affected. RBC Auto (Bld) [#/Vol]Ordere d By: Joe Sanchez on 10-22-2024 RBC (Bld) [#/Vol] 4.11 10*6/uL Low 4.2-5.4 [facility] Serum creatinine measurement (mass/volume)Ordered By: Joe Sanchez on 10-22-2024 Creatinine [Mass/Vol] 1.80 mg/dL High 0.70-1.[address] [facility] Serum glucose measurement (m ass/volume)Ordered By: Joe Sanchez on 10-22-2024 Glucose [Mass/Vol] 113 mg/dL High 70-99 [facility] Serum or plasma calcium leah urement (mass/volume)Ordered By: Joe Sanchez on 10-22-2024 Calcium [Mass/Vol] 9.2 mg/dL 7.6-11.0 [facility] Serum or plasma urea nitroge n measurement (mass/volume)Ordered By: Joe Sanchez on 10-22-2024 Urea nitrogen [Mass/Vol] 32 mg/dL High 4-19 [facility] Sodium levelOrdered By: Yudi Sanchez on 10-22-2024 Sodium [Moles/Vol] 138 mmol/L 133-145 [facility] White blood cell (WBC) count Ordered By: Joe Sanchez on 10-22-2024 WBC (Bld) [#/Vol] 6.5 10*3/uL 4.4-11.0 [facility] Bilirubin directOrdered By: Joe Sanchez on 10-07-2024 Bilirubin.direct [Mass/Vol] 0.35 mg/dL High 0.00-0.30 [facility] Bilirubin, totalOrdered By: Joe Sanchez on 10-07-2024 Bilirubin [Mass/Vol] 0.93 mg/dL 0.00-1.30 [facility] Calculated very low density lipoprotein (VLDL) cholesterol measurementOrdered By: Joe Sanchez on 10-07-2024 Calculated very low density lipoprotein (VLDL) cholesterol measurement 18 mg/dL 5-40 [facility] Hemoglobin A1c percentageOrd ered By: Joe Sanchez on 10-07-2024 HbA1c (Bld) [Mass fraction] 5.4 % <5.7 [facility] Comment on above: Normal < 5.7 % Predi abetic 5.7 - 6.4 % Diabetic >or= 6.5 % Please note range changes. LDL calc ser/plasOrdered By: Joe Sanchez on 10-07-2024 Cholesterol in LDL [Mass/Vol] 54 mg/dL [facility] Comment on above: Tsaxejyegz=729-369 m g/dL & Higher Njtg=324 mg/dL or greater Laboratory - Chemistry and C hemistry - challengeOrdered By: Joe Sanchez on 10-07-2024 AST [Catalytic activity/Vol] 21 U/L <32 [facility] Screening total cholesterol/ high density lipoprotein (HDL) cholesterol ratioOrdered By: Joe Sanchez on 10-07-2024 Cholesterol.total/Shannon sterol in HDL [Mass ratio] 2.90 {ratio} [facility] Serum globulin measurementOr dered By: Joe Sanchez on 10-07-2024 Globulin (S) [Mass/Vol] 3.2 g/dL 2.2-4.2 [facility] Serum or plasma alanine kilpatrick otransferase (ALT) measurementOrdered By: Joe Sanchez on 10-07-2024 ALT [Catalytic activity/Vol] U/L <35 [facility] Serum or plasma albumin leah urement (mass/volume)Ordered By: Joe Sanchez 10-07-2024 Albumin [Mass/Vol] 3.3 g/dL Low 3.4-4.8 [facility] Serum or plasma alkaline kirti sphatase measurementOrdered By: Joe Sanchez 10-07-2024 ALP [Catalytic activity/Vol] 64 U/L 35-104 [facility] Serum or plasma cholesterol in HDL measurement (mass/volume)Ordered By: Joe Sanchez 10-07-2024 Cholesterol in HDL [Mass/Vol] 38 mg/dL Low >40 [facility] Comment on above: National Cholesterol Education Program (NCEP) guidelines:<40 mg/dL: Low HDL-cholesterol (major risk factor for CHD)>= 60 mg/dL: High HDL-cholesterol (negative risk factor for CHD)HDL-cholesterol is affected by a number of factors, e.g. smoking, exercise, hormones, sex and age. Serum or plasma cholesterol measurement (mass/volume)Ordered By: Joe Sanchez on 10-07-2024 Cholesterol [Mass/Vol] 111 mg/dL <201 [facility] Comment on above: Cholesterol level, D esirable <200 mg/dLBorderline high cholesterol 200-239 mg/dLHigh cholesterol >=240 mg/dLRecommendations of the NCEP Adult Treatment Panel for the following risk-cutoff thresholds for the [place] population. Total proteinOrdered By: Constantin Sanchez on 10-07-2024 Protein [Mass/Vol] 6.5 g/dL 5.9-8.4 [facility] Triglycerides measurementOrd ered By: Joe Sanchez on 10-07-2024 Triglyceride [Mass/Vol] 92 mg/dL <199 [facility] Comment on above: The drugs N-Acetylcy steine and Metamizole may falsely depress this assay. Normal range: <150 mg/dLBorderline High: 150-199 mg/dLHigh: 200-499 mg/dLVery High: >500 mg/dL Absolute lymphocyte countOrd ered By: Joe Sanchez on 09-24-2024 Lymphocytes Auto (Unsp spec) [#/Vol] 1.76 10*3/uL 0.83-4.51 [facility] Absolute neutrophil countOrd ered By: Joe Sanchez on 09-24-2024 Neutrophils (Bld) [#/Vol] 4.6 10*3/uL 2.0-7.7 [facility] Anion gap in Serum or Plasma Ordered By: Joe Sanchez on 09-24-2024 Anion gap [Moles/Vol] 13 mmol/L 5-[address] [facility] Automated lymphocyte count a s percentage of total leukocytesOrdered By: Joe Sanchez on 09-24-2024 Lymphocytes/100 WBC Auto (Unsp spec) 23.7 % 19-41 [facility] BUN/creatinine ratioOrdered By: Joe Sanchez on 09-24-2024 Urea nitrogen/Creatinine [Mass ratio] 15.6 mg/mg 10-20 [facility] Basophil percentageOrdered B y: Joe Sanchez on 09-24-2024 Basophils/100 WBC (Bld) 1.3 % High 0-1 [facility] Carbon dioxide, total [Moles /volume] in Central venous bloodOrdered By: Joe Sanchez on 09-24-2024 CO2 [Moles/Vol] 26.0 mmol/L 21.0-32.0 [facility] Chloride assayOrdered By: Lluvia Sanchez on 09-24-2024 Chloride [Moles/Vol] 99 mmol/L 98-108 [facility] Eosinophil percentageOrdered By: Joe Sanchez on 09-24-2024 Eosinophils/100 WBC (Bld) 1.7 % 0-5 [facility] Erythrocyte distribution wid th ratioOrdered By: Joe Sanchez on 09-24-2024 Erythrocyte distribution width (RBC) [Ratio] 13.6 % 11.6-14.6 [facility] Erythrocyte distribution wid th standard deviationOrdered By: Joe Sanchez on 09-24-2024 Erythrocyte distribution width (RBC) [Ratio] 48.6 fl High 35.1-43.9 [facility] Glomerular filtration rate ( GFR) estimation/1.73 sq m using serum, plasma, or whole bOrdered By: Yudicrapolynnette Sanchez on 09-24-2024 GFR/1.73 sq M.predicted among non-blacks MDRD (S/P/Bld) [Vol rate/Area] 28 mL/min/{1.73_m2} Low >60 [facility] Comment on above: mL/min/1.73m2 CKD-EP I Creatinine Equation (2020) Hematocrit Auto (Bld) [Volum e fraction]Ordered By: Joe Sanchez on 09-24-2024 Hematocrit (Bld) [Volume fraction] 42.5 % 37-47 [facility] Hemoglobin measurementOrdere d By: Joe Sanchez on 09-24-2024 Hemoglobin (Bld) [Mass/Vol] 14.1 g/dL 12.0-15.0 [facility] Immature granulocytes/100 WB C Auto (Bld)Ordered By: Joe Sanchez 09-24-2024 Immature granulocytes/100 WBC (Bld) 0.700 % 0.0-0.9 [facility] Comment on above: IG% - Immature Granu locytes (promyelocytes, myelocytes and metamyelocytes) > 1% indicates that a LEFT SHIFT is Present. MCV (mean corpuscular volume ) determinationOrdered By: Joe Sanchez on 09-24-2024 MCV (RBC) [Entitic vol] 97.5 fL 81-99 [facility] Mean corpuscular hemoglobin (MCH) determinationOrdered By: Joe Sanchez 09-24-2024 MCH (RBC) [Entitic mass] 32.3 pg High 27.0-32.0 [facility] Mean corpuscular hemoglobin concentration (MCHC) determinationOrdered By: Joe Sanchez on 09-24-2024 MCHC (RBC) [Mass/Vol] 33.2 g/dL 32-[address] [facility] Mean platelet volume determi nationOrdered By: Joe Sanchez on 09-24-2024 Platelet mean volume (Bld) [Entitic vol] 12.3 fL High 6.2-12.0 [facility] Monocyte percentageOrdered B y: Joe Sanchez on 09-24-2024 Monocytes/100 WBC (Bld) 10.8 % High 0-10 [facility] Neutrophil percentageOrdered By: Joe Sanchez on 09-24-2024 Neutrophils/100 WBC (Bld) 61.8 % 47-70 [facility] Nucleated red blood cell per centageOrdered By: Joe Sanchez on 09-24-2024 Nucleated RBC/100 WBC (Bld) [Ratio] 0 % 0-5 [facility] Platelet countOrdered By: Lluvia genelynnette Sanchez on 09-24-2024 Platelets (Bld) [#/Vol] 204 10*3/uL 150-450 [facility] Potassium measurement (mass/ volume)Ordered By: Joe Sanchez on 09-24-2024 Potassium (Unsp spec) [Mass/Vol] 4.3 mmol/L 3.3-5.1 [facility] Comment on above: Hemolysis present, R esults could be affected. RBC Auto (Bld) [#/Vol]Ordere d By: Joe Sanchez on 09-24-2024 RBC (Bld) [#/Vol] 4.36 10*6/uL 4.2-5.4 [facility] Serum creatinine measurement (mass/volume)Ordered By: Joe Sanchez on 09-24-2024 Creatinine [Mass/Vol] 1.76 mg/dL High 0.70-1.[address] [facility] Serum glucose measurement (m ass/volume)Ordered By: Joe Sanchez on 09-24-2024 Glucose [Mass/Vol] 86 mg/dL 70-99 [facility] Serum or plasma calcium leah urement (mass/volume)Ordered By: Joe Chaumilton on 09-24-2024 Calcium [Mass/Vol] 9.6 mg/dL 7.6-11.0 [facility] Serum or plasma urea nitroge n measurement (mass/volume)Ordered By: Joe Chaumilton on 09-24-2024 Urea nitrogen [Mass/Vol] 28 mg/dL High 4-19 [facility] Sodium levelOrdered By: Yudi Chaumilton on 09-24-2024 Sodium [Moles/Vol] 139 mmol/L 133-145 [facility] White blood cell (WBC) count Ordered By: Joe Arturoawaismilton on 09-24-2024 WBC (Bld) [#/Vol] 7.4 10*3/uL 4.4-11.0 [facility] Absolute lymphocyte countOrd ered By: Joe Arturoawaismilton on 08-27-2024 Lymphocytes Auto (Unsp spec) [#/Vol] 1.87 10*3/uL 0.83-4.51 [facility] Absolute neutrophil countOrd ered By: Joe Sanchez on 08-27-2024 Neutrophils (Bld) [#/Vol] 4.2 10*3/uL 2.0-7.7 [facility] Anion gap in Serum or Plasma Ordered By: Joe Arturoawaismilton on 08-27-2024 Anion gap [Moles/Vol] 12 mmol/L 5-[address] [facility] Automated lymphocyte count a s percentage of total leukocytesOrdered By: Lluviaclaudiomelissalynnette Morrisawaismilton on 08-27-2024 Lymphocytes/100 WBC Auto (Unsp spec) 27.1 % 19-41 [facility] BUN/creatinine ratioOrdered By: Joe Arturoawaismilton on 08-27-2024 Urea nitrogen/Creatinine [Mass ratio] 15.0 mg/mg 10-20 [facility] Basophil percentageOrdered B y: Joaquinlynnette Morrisawaismilton on 08-27-2024 Basophils/100 WBC (Bld) 1.0 % 0-1 [facility] Carbon dioxide, total [Moles /volume] in Central venous bloodOrdered By: Joe Sanchez on 08-27-2024 CO2 [Moles/Vol] 27.3 mmol/L 21.0-32.0 [facility] Chloride assayOrdered By: Lluvia Sanchez on 08-27-2024 Chloride [Moles/Vol] 99 mmol/L 98-108 [facility] Eosinophil percentageOrdered By: montez Sanchez on 08-27-2024 Eosinophils/100 WBC (Bld) 2.0 % 0-5 [facility] Erythrocyte distribution wid th ratioOrdered By: [facility] on 08-27-2024 Erythrocyte distribution width (RBC) [Ratio] 13.7 % 11.6-14.6 [facility] Erythrocyte distribution wid th standard deviationOrdered By: [facility] on 08-27-2024 Erythrocyte distribution width (RBC) [Ratio] 49.1 fl High 35.1-43.9 [facility] Glomerular filtration rate ( GFR) estimation/1.73 sq m using serum, plasma, or whole bOrdered By: Joe Sanchez on 08-27-2024 GFR/1.73 sq M.predicted among non-blacks MDRD (S/P/Bld) [Vol rate/Area] 29 mL/min/{1.73_m2} Low >60 [facility] Comment on above: mL/min/1.73m2 CKD-EP I Creatinine Equation (2020) Hematocrit Auto (Bld) [Volum e fraction]Ordered By: montez Sanchez on 08-27-2024 Hematocrit (Bld) [Volume fraction] 42.3 % 37-47 [facility] Hemoglobin measurementOrdere d By: montez Sanchez on 08-27-2024 Hemoglobin (Bld) [Mass/Vol] 13.8 g/dL 12.0-15.0 [facility] Immature granulocytes/100 WB C Auto (Bld)Ordered By: Joe Sanchez on 08-27-2024 Immature granulocytes/100 WBC (Bld) 0.400 % 0.0-0.9 [facility] Comment on above: IG% - Immature Granu locytes (promyelocytes, myelocytes and metamyelocytes) > 1% indicates that a LEFT SHIFT is Present. MCV (mean corpuscular volume ) determinationOrdered By: Joe Sanchez on 08-27-2024 MCV (RBC) [Entitic vol] 96.8 fL 81-99 [facility] Mean corpuscular hemoglobin (MCH) determinationOrdered By: Joe Sanchez on 08-27-2024 MCH (RBC) [Entitic mass] 31.6 pg 27.0-32.0 [facility] Mean corpuscular hemoglobin concentration (MCHC) determinationOrdered By: Joe Sanchez on 08-27-2024 MCHC (RBC) [Mass/Vol] 32.6 g/dL 32-[address] [facility] Mean platelet volume determi nationOrdered By: Joe Sanchez on 08-27-2024 Platelet mean volume (Bld) [Entitic vol] 12.5 fL High 6.2-12.0 [facility] Monocyte percentageOrdered B y: Joe Sanchez on 08-27-2024 Monocytes/100 WBC (Bld) 9.4 % 0-10 [facility] Neutrophil percentageOrdered By: Joe Sanchez on 08-27-2024 Neutrophils/100 WBC (Bld) 60.1 % 47-70 [facility] Nucleated red blood cell per centageOrdered By: Joe Sanchez on 08-27-2024 Nucleated RBC/100 WBC (Bld) [Ratio] 0 % 0-5 [facility] Platelet countOrdered By: Lluvia claudiokayleigh Sanchez on 08-27-2024 Platelets (Bld) [#/Vol] 196 10*3/uL 150-450 [facility] Potassium measurement (mass/ volume)Ordered By: Joe Sanchez on 08-27-2024 Potassium (Unsp spec) [Mass/Vol] 4.1 mmol/L 3.3-5.1 [facility] RBC Auto (Bld) [#/Vol]Ordere d By: Joe Sanchez on 08-27-2024 RBC (Bld) [#/Vol] 4.37 10*6/uL 4.2-5.4 [facility] Serum creatinine measurement (mass/volume)Ordered By: Joe Sanchez on 08-27-2024 Creatinine [Mass/Vol] 1.74 mg/dL High 0.70-1.[address] [facility] Serum glucose measurement (m ass/volume)Ordered By: Joe Sanchez on 08-27-2024 Glucose [Mass/Vol] 103 mg/dL High 70-99 [facility] Serum or plasma calcium leah urement (mass/volume)Ordered By: Joe Sanchez on 08-27-2024 Calcium [Mass/Vol] 9.5 mg/dL 7.6-11.0 [facility] Serum or plasma urea nitroge n measurement (mass/volume)Ordered By: Joe Sanchez on 08-27-2024 Urea nitrogen [Mass/Vol] 26 mg/dL High 4-19 [facility] Sodium levelOrdered By: Yudi Sanchez on 08-27-2024 Sodium [Moles/Vol] 138 mmol/L 133-145 [facility] White blood cell (WBC) count Ordered By: Joe Sanchez on 08-27-2024 WBC (Bld) [#/Vol] 6.9 10*3/uL 4.4-11.0 [facility] Absolute lymphocyte countOrd ered By: Joe Sanchez on 07-30-2024 Lymphocytes Auto (Unsp spec) [#/Vol] 1.85 10*3/uL 0.83-4.51 [facility] Absolute neutrophil countOrd ered By: Joe Sanchez on 07-30-2024 Neutrophils (Bld) [#/Vol] 3.8 10*3/uL 2.0-7.7 [facility] Anion gap in Serum or Plasma Ordered By: Joe Sanchez on 07-30-2024 Anion gap [Moles/Vol] 12 mmol/L 5-[address] [facility] Automated lymphocyte count a s percentage of total leukocytesOrdered By: Joe Sanchez on 07-30-2024 Lymphocytes/100 WBC Auto (Unsp spec) 28.5 % 19-41 [facility] BUN/creatinine ratioOrdered By: Joe Sanchez on 07-30-2024 Urea nitrogen/Creatinine [Mass ratio] 14.9 mg/mg 10-20 [facility] Basophil percentageOrdered B y: Joe Sanchez on 07-30-2024 Basophils/100 WBC (Bld) 1.1 % High 0-1 [facility] Carbon dioxide, total [Moles /volume] in Central venous bloodOrdered By: Joe Arturohans on 07-30-2024 CO2 [Moles/Vol] 26.5 mmol/L 21.0-32.0 [facility] Chloride assayOrdered By: Lluvia montez Arturoawaismilton on 07-30-2024 Chloride [Moles/Vol] 100 mmol/L 98-108 [facility] Eosinophil percentageOrdered By: Joe Sanchez on 07-30-2024 Eosinophils/100 WBC (Bld) 1.8 % 0-5 [facility] Erythrocyte distribution wid th ratioOrdered By: claudiocrapolynnette Arturohans on 07-30-2024 Erythrocyte distribution width (RBC) [Ratio] 14.2 % 11.6-14.6 [facility] Erythrocyte distribution wid th standard deviationOrdered By: claudiocrapolynnette Sanchez on 07-30-2024 Erythrocyte distribution width (RBC) [Ratio] 52.9 fl High 35.1-43.9 [facility] Glomerular filtration rate ( GFR) estimation/1.73 sq m using serum, plasma, or whole bOrdered By: Joe Sanchez on 07-30-2024 GFR/1.73 sq M.predicted among non-blacks MDRD (S/P/Bld) [Vol rate/Area] 26 mL/min/{1.73_m2} Low >60 [facility] Comment on above: mL/min/1.73m2 CKD-EP I Creatinine Equation (2020) Hematocrit Auto (Bld) [Volum e fraction]Ordered By: Lluviaclaudiomelissalynnette Sanchez on 07-30-2024 Hematocrit (Bld) [Volume fraction] 41.4 % 37-47 [facility] Hemoglobin measurementOrdere d By: Lluviaclaudiokayleigh Arturoawaismilton on 07-30-2024 Hemoglobin (Bld) [Mass/Vol] 13.5 g/dL 12.0-15.0 [facility] Immature granulocytes/100 WB C Auto (Bld)Ordered By: Joe Sanchez on 07-30-2024 Immature granulocytes/100 WBC (Bld) 0.800 % 0.0-0.9 [facility] Comment on above: IG% - Immature Granu locytes (promyelocytes, myelocytes and metamyelocytes) > 1% indicates that a LEFT SHIFT is Present. MCV (mean corpuscular volume ) determinationOrdered By: Joe Sanchez on 07-30-2024 MCV (RBC) [Entitic vol] 102.7 fL High 81-99 [facility] Mean corpuscular hemoglobin (MCH) determinationOrdered By: Joe Sanchez on 07-30-2024 MCH (RBC) [Entitic mass] 33.5 pg High 27.0-32.0 [facility] Mean corpuscular hemoglobin concentration (MCHC) determinationOrdered By: Joe Sanchez on 07-30-2024 MCHC (RBC) [Mass/Vol] 32.6 g/dL 32-[address] [facility] Mean platelet volume determi nationOrdered By: Joe Sanchez on 07-30-2024 Platelet mean volume (Bld) [Entitic vol] 11.8 fL 6.2-12.0 [facility] Monocyte percentageOrdered B y: Joe Sanchez on 07-30-2024 Monocytes/100 WBC (Bld) 9.2 % 0-10 [facility] Neutrophil percentageOrdered By: Joe Sanchez on 07-30-2024 Neutrophils/100 WBC (Bld) 58.6 % 47-70 [facility] Nucleated red blood cell per centageOrdered By: Joe Sanchez on 07-30-2024 Nucleated RBC/100 WBC (Bld) [Ratio] 0 % 0-5 [facility] Platelet countOrdered By: Lluvia Sanchez on 07-30-2024 Platelets (Bld) [#/Vol] 167 10*3/uL 150-450 [facility] Potassium measurement (mass/ volume)Ordered By: Joe Sanchez on 07-30-2024 Potassium (Unsp spec) [Mass/Vol] 4.3 mmol/L 3.3-5.1 [facility] Comment on above: Hemolysis present, R esults could be affected. RBC Auto (Bld) [#/Vol]Ordere d By: Joe Sanchez on 07-30-2024 RBC (Bld) [#/Vol] 4.03 10*6/uL Low 4.2-5.4 [facility] Serum creatinine measurement (mass/volume)Ordered By: Joe Sanchez on 07-30-2024 Creatinine [Mass/Vol] 1.87 mg/dL High 0.70-1.[address] [facility] Serum glucose measurement (m ass/volume)Ordered By: Joe Sanchez on 07-30-2024 Glucose [Mass/Vol] 89 mg/dL 70-99 [facility] Serum or plasma calcium leah urement (mass/volume)Ordered By: Joe Sanchez on 07-30-2024 Calcium [Mass/Vol] 9.4 mg/dL 7.6-11.0 [facility] Serum or plasma urea nitroge n measurement (mass/volume)Ordered By: Joe Sanchez on 07-30-2024 Urea nitrogen [Mass/Vol] 28 mg/dL High 4-19 [facility] Sodium levelOrdered By: Yudi Sanchez on 07-30-2024 Sodium [Moles/Vol] 138 mmol/L 133-145 [facility] White blood cell (WBC) count Ordered By: Joe Sanchez on 07-30-2024 WBC (Bld) [#/Vol] 6.5 10*3/uL 4.4-11.0 [facility] Bilirubin directOrdered By: Joe Sanchez on 07-15-2024 Bilirubin.direct [Mass/Vol] 0.26 mg/dL 0.00-0.30 [facility] Bilirubin, totalOrdered By: Joe Sanchez on 07-15-2024 Bilirubin [Mass/Vol] 0.62 mg/dL 0.00-1.30 [facility] Calculated very low density lipoprotein (VLDL) cholesterol measurementOrdered By: Joe Sanchez on 07-15-2024 Calculated very low density lipoprotein (VLDL) cholesterol measurement 20 mg/dL 5-40 [facility] Hemoglobin A1c percentageOrd ered By: Joe Sanchez on 07-15-2024 HbA1c (Bld) [Mass fraction] 5.5 % <5.7 [facility] Comment on above: Normal < 5.7 % Predi abetic 5.7 - 6.4 % Diabetic >or= 6.5 % Please note range changes. LDL calc ser/plasOrdered By: Joe Sanchez on 07-15-2024 Cholesterol in LDL [Mass/Vol] 86 mg/dL [facility] Comment on above: Sbcrkndpxg=081-698 m g/dL & Higher Ddlq=384 mg/dL or greater Laboratory - Chemistry and C hemistry - challengeOrdered By: Joe Sanchez on 07-15-2024 AST [Catalytic activity/Vol] 19 U/L <32 [facility] Screening total cholesterol/ high density lipoprotein (HDL) cholesterol ratioOrdered By: Joe Sanchez on 07-15-2024 Cholesterol.total/Shannon sterol in HDL [Mass ratio] 3.91 {ratio} [facility] Serum globulin measurementOr dered By: Joe Sanchez on 07-15-2024 Globulin (S) [Mass/Vol] 3.2 g/dL 2.2-4.2 [facility] Serum or plasma alanine kilpatrick otransferase (ALT) measurementOrdered By: Joe Sanchez on 07-15-2024 ALT [Catalytic activity/Vol] 7 U/L <35 [facility] Serum or plasma albumin leah urement (mass/volume)Ordered By: Joe Sanchez on 07-15-2024 Albumin [Mass/Vol] 3.4 g/dL 3.4-4.8 [facility] Serum or plasma alkaline kirti sphatase measurementOrdered By: Joe Sanchez 07-15-2024 ALP [Catalytic activity/Vol] 67 U/L 35-104 [facility] Serum or plasma cholesterol in HDL measurement (mass/volume)Ordered By: Joe Sanchez on 07-15-2024 Cholesterol in HDL [Mass/Vol] 36 mg/dL Low >40 [facility] Comment on above: National Cholesterol [...] the following risk-cutoff thresholds for the [place] population. Total proteinOrdered By: Constantin Sanchez on 07-15-2024 Protein [Mass/Vol] 6.7 g/dL 5.9-8.4 [facility] Triglycerides measurementOrd ered By: Joe Sanchez on 07-15-2024 Triglyceride [Mass/Vol] 101 mg/dL <199 [facility] Comment on above: The drugs N-Acetylcy steine and Metamizole may falsely depress this assay. Normal range: <150 mg/dLBorderline High: 150-199 mg/dLHigh: 200-499 mg/dLVery High: >500 mg/dL Absolute lymphocyte countOrd ered By: Joe Sanchez on 07-02-2024 Lymphocytes Auto (Unsp spec) [#/Vol] 1.69 10*3/uL 0.83-4.51 [facility] Absolute neutrophil countOrd ered By: Joe Sanchez on 07-02-2024 Neutrophils (Bld) [#/Vol] 4.5 10*3/uL 2.0-7.7 [facility] Anion gap in Serum or Plasma Ordered By: Joe Sanchez on 07-02-2024 Anion gap [Moles/Vol] 13 mmol/L - [facility] Automated lymphocyte count a s percentage of total leukocytesOrdered By: Joe Sanchez on 07-02-2024 Lymphocytes/100 WBC Auto (Unsp spec) 23.8 % 19-41 [facility] BUN/creatinine ratioOrdered By: Joe Sanchez on 07-02-2024 Urea nitrogen/Creatinine [Mass ratio] 16.6 mg/mg 10-20 [facility] Basophil percentageOrdered B y: Joe Sanchez on 07-02-2024 Basophils/100 WBC (Bld) 1.0 % 0-1 [facility] Carbon dioxide, total [Moles /volume] in Central venous bloodOrdered By: Joe Sanchez on 07-02-2024 CO2 [Moles/Vol] 26.0 mmol/L 21.0-32.0 [facility] Chloride assayOrdered By: Lluvia Sanchez on 07-02-2024 Chloride [Moles/Vol] 99 mmol/L 98-108 [facility] Eosinophil percentageOrdered By: claudiocrapolynnette Sanchez on 07-02-2024 Eosinophils/100 WBC (Bld) 1.7 % 0-5 [facility] Erythrocyte distribution wid th ratioOrdered By: Joe Sanchez on 07-02-2024 Erythrocyte distribution width (RBC) [Ratio] 13.5 % 11.6-14.6 [facility] Erythrocyte distribution wid th standard deviationOrdered By: Joe Sanchez on 07-02-2024 Erythrocyte distribution width (RBC) [Ratio] 47.8 fl High 35.1-43.9 [facility] Glomerular filtration rate ( GFR) estimation/1.73 sq m using serum, plasma, or whole bOrdered By: Joe Sanchez on 07-02-2024 GFR/1.73 sq M.predicted among non-blacks MDRD (S/P/Bld) [Vol rate/Area] 28 mL/min/{1.73_m2} Low >60 [facility] Comment on above: mL/min/1.73m2 CKD-EP I Creatinine Equation (2020) Hematocrit Auto (Bld) [Volum e fraction]Ordered By: Joe Sanchez on 07-02-2024 Hematocrit (Bld) [Volume fraction] 41.2 % 37-47 [facility] Hemoglobin measurementOrdere d By: Joe Sanchez on 07-02-2024 Hemoglobin (Bld) [Mass/Vol] 13.8 g/dL 12.0-15.0 [facility] Immature granulocytes/100 WB C Auto (Bld)Ordered By: Yudimelissalynnette Morrisawaismilton on 07-02-2024 Immature granulocytes/100 WBC (Bld) 0.600 % 0.0-0.9 [facility] Comment on above: IG% - Immature Granu locytes (promyelocytes, myelocytes and metamyelocytes) > 1% indicates that a LEFT SHIFT is Present. MCV (mean corpuscular volume ) determinationOrdered By: Joe Sanchez on 07-02-2024 MCV (RBC) [Entitic vol] 95.8 fL 81-99 [facility] Mean corpuscular hemoglobin (MCH) determinationOrdered By: claudiocrapolynnette Sanchez on 07-02-2024 MCH (RBC) [Entitic mass] 32.1 pg High 27.0-32.0 [facility] Mean corpuscular hemoglobin concentration (MCHC) determinationOrdered By: montez Sanchez on 07-02-2024 MCHC (RBC) [Mass/Vol] 33.5 g/dL 32-[address] [facility] Mean platelet volume determi nationOrdered By: Lluviamontez Morrisawaismilton on 07-02-2024 Platelet mean volume (Bld) [Entitic vol] 12.6 fL High 6.2-12.0 [facility] Monocyte percentageOrdered B y: Joe Sanchez on 07-02-2024 Monocytes/100 WBC (Bld) 9.8 % 0-10 [facility] Neutrophil percentageOrdered By: montez Sanchez on 07-02-2024 Neutrophils/100 WBC (Bld) 63.1 % 47-70 [facility] Nucleated red blood cell per centageOrdered By: montez Sanchez on 07-02-2024 Nucleated RBC/100 WBC (Bld) [Ratio] 0 % 0-5 [facility] Platelet countOrdered By: Lluvia claudiokayleigh Sanchez on 07-02-2024 Platelets (Bld) [#/Vol] 210 10*3/uL 150-450 [facility] Potassium measurement (mass/ volume)Ordered By: Joe Sanchez on 07-02-2024 Potassium (Unsp spec) [Mass/Vol] 4.4 mmol/L 3.3-5.1 [facility] Comment on above: Hemolysis present, R esults could be affected. RBC Auto (Bld) [#/Vol]Ordere d By: Joe Sanchez on 07-02-2024 RBC (Bld) [#/Vol] 4.30 10*6/uL 4.2-5.4 [facility] Serum creatinine measurement (mass/volume)Ordered By: Joe Sanchez on 07-02-2024 Creatinine [Mass/Vol] 1.78 mg/dL High 0.70-1.[address] [facility] Serum glucose measurement (m ass/volume)Ordered By: Joe Sanchez on 07-02-2024 Glucose [Mass/Vol] 100 mg/dL High 70-99 [facility] Serum or plasma calcium leah urement (mass/volume)Ordered By: Joe Sanchez on 07-02-2024 Calcium [Mass/Vol] 9.5 mg/dL 7.6-11.0 [facility] Serum or plasma urea nitroge n measurement (mass/volume)Ordered By: Joe Sanchez on 07-02-2024 Urea nitrogen [Mass/Vol] 30 mg/dL High 4-19 [facility] Sodium levelOrdered By: Yudi Sanchez on 07-02-2024 Sodium [Moles/Vol] 138 mmol/L 133-145 [facility] White blood cell (WBC) count Ordered By: Joe Sanchez on 07-02-2024 WBC (Bld) [#/Vol] 7.1 10*3/uL 4.4-11.0 [facility] Vitamin D, 25-hydroxyOrdered By: Joe Sanchez on 06-18-2024 Vitamin D 25-Hydroxy 23.4 ng/mL Low 30-100 [facility] Comment on above: Vitamin D StatusDefi ciency: <20 ng/mL (50nmol/L)Insufficiency: 20-30 ng/mL (50-75 nmol/L)Sufficiency: 30-100 ng/mL (75-250 nmol/L)Toxicity: >100 ng/mL (>250 nmol/L) Absolute lymphocyte countOrd ered By: Yudimelissalynnette Morrisawaismilton on 06-04-2024 Lymphocytes Auto (Unsp spec) [#/Vol] 1.61 10*3/uL 0.83-4.51 [facility] Absolute neutrophil countOrd ered By: Joe Morrisawaismilton on 06-04-2024 Neutrophils (Bld) [#/Vol] 5.3 10*3/uL 2.0-7.7 [facility] Anion gap in Serum or Plasma Ordered By: Joe Sanchez on 06-04-2024 Anion gap [Moles/Vol] 13 mmol/L 5-[address] [facility] Automated lymphocyte count a s percentage of total leukocytesOrdered By: Joe Sanchez on 06-04-2024 Lymphocytes/100 WBC Auto (Unsp spec) 19.9 % 19-41 [facility] BUN/creatinine ratioOrdered By: Joe Sanchez on 06-04-2024 Urea nitrogen/Creatinine [Mass ratio] 16.0 mg/mg 10-20 [facility] Basophil percentageOrdered B y: Yudimelissalynnette Morrisawaismilton on 06-04-2024 Basophils/100 WBC (Bld) 1.1 % High 0-1 [facility] Carbon dioxide, total [Moles /volume] in Central venous bloodOrdered By: Joe Sanchez on 06-04-2024 CO2 [Moles/Vol] 26.2 mmol/L 21.0-32.0 [facility] Chloride assayOrdered By: Lluvia Sanchez on 06-04-2024 Chloride [Moles/Vol] 99 mmol/L 98-108 [facility] Eosinophil percentageOrdered By: montez Sanchez on 06-04-2024 Eosinophils/100 WBC (Bld) 2.2 % 0-5 [facility] Erythrocyte distribution wid th (RBC) [Ratio]Ordered By: Joe Sanchez on 06-04-2024 Erythrocyte distribution width (RBC) [Entitic vol] 46.8 fL High 35.1-43.9 [facility] Erythrocyte distribution wid th ratioOrdered By: Joe Sanchez on 06-04-2024 Erythrocyte distribution width (RBC) [Ratio] 13.2 % 11.6-14.6 [facility] Erythrocyte distribution wid th standard deviationOrdered By: Joe Sanchez on 06-04-2024 Erythrocyte distribution width (RBC) [Ratio] 46.8 fl High 35.1-43.9 [facility] GFR/1.73 sq M.predicted venkata g non-blacks MDRD (S/P/Bld) [Vol rate/Area]Ordered By: Joe Sanchez on 06-04-2024 Estimated GFR (MDRD) Non-Af Amer 29 Low >60 [facility] Comment on above: mL/min/1.73m2 CKD-EP I Creatinine Equation (2020) Glomerular filtration rate ( GFR) estimation/1.73 sq m using serum, plasma, or whole bOrdered By: Joe Sanchez on 06-04-2024 GFR/1.73 sq M.predicted among non-blacks MDRD (S/P/Bld) [Vol rate/Area] 29 mL/min/{1.73_m2} Low >60 [facility] Comment on above: mL/min/1.73m2 CKD-EP I Creatinine Equation (2020) Hematocrit Auto (Bld) [Volum e fraction]Ordered By: Joe Sanchez on 06-04-2024 Hematocrit (Bld) [Volume fraction] 43.1 % 37-47 [facility] Hemoglobin measurementOrdere d By: Joe Sanchez on 06-04-2024 Hemoglobin (Bld) [Mass/Vol] 14.2 g/dL 12.0-15.0 [facility] Immature granulocytes/100 WB C Auto (Bld)Ordered By: Joe Sanchez 06-04-2024 Immature granulocytes/100 WBC (Bld) 0.600 % 0.0-0.9 [facility] Comment on above: IG% - Immature Granu locytes (promyelocytes, myelocytes and metamyelocytes) > 1% indicates that a LEFT SHIFT is Present. Lymphocytes Auto (Unsp spec) [#/Vol]Ordered By: Joe Sanchez on 06-04-2024 Lymphocytes (Bld) [#/Vol] 1.61 10*3/uL 0.83-4.51 [facility] Lymphocytes/100 WBC Auto (Un sp spec)Ordered By: Joe Sanchez on 06-04-2024 Lymphocytes/100 WBC (Bld) 19.9 % 19-41 [facility] MCV (mean corpuscular volume ) determinationOrdered By: Joe Sanchez on 06-04-2024 MCV (RBC) [Entitic vol] 96.9 fL 81-99 [facility] Mean corpuscular hemoglobin (MCH) determinationOrdered By: Joe Sanchez on 06-04-2024 MCH (RBC) [Entitic mass] 31.9 pg 27.0-32.0 [facility] Mean corpuscular hemoglobin concentration (MCHC) determinationOrdered By: Joe Sanchez on 06-04-2024 MCHC (RBC) [Mass/Vol] 32.9 g/dL 32-[address] [facility] Mean platelet volume determi nationOrdered By: Joe Sanchez on 06-04-2024 Platelet mean volume (Bld) [Entitic vol] 12.3 fL High 6.2-12.0 [facility] Monocyte percentageOrdered B y: Joe Sanchez on 06-04-2024 Monocytes/100 WBC (Bld) 10.4 % High 0-10 [facility] Neutrophil percentageOrdered By: Joe Sanchez on 06-04-2024 Neutrophils/100 WBC (Bld) 65.8 % 47-70 [facility] Nucleated red blood cell per centageOrdered By: Joe Sanchez on 06-04-2024 Nucleated RBC/100 WBC (Bld) [Ratio] 0 % 0-5 [facility] Platelet countOrdered By: Lluvia claudiokayleigh Sanchez on 06-04-2024 Platelets (Bld) [#/Vol] 216 10*3/uL 150-450 [facility] Potassium (Unsp spec) [Mass/ Vol]Ordered By: Joe Sanchez on 06-04-2024 Potassium [Moles/Vol] 4.5 mmol/L 3.3-5.[address] [facility] Potassium measurement (mass/ volume)Ordered By: Joe Sanchez on 06-04-2024 Potassium (Unsp spec) [Mass/Vol] 4.5 mmol/L 3.3-5.1 [facility] RBC Auto (Bld) [#/Vol]Ordere d By: Yudimelissalynnette Sanchez on 06-04-2024 RBC (Bld) [#/Vol] 4.45 10*6/uL 4.2-5.4 [facility] Serum creatinine measurement (mass/volume)Ordered By: Joe Sanchez on 06-04-2024 Creatinine [Mass/Vol] 1.74 mg/dL High 0.70-1.[address] [facility] Serum glucose measurement (m ass/volume)Ordered By: Joe Sanchez on 06-04-2024 Glucose [Mass/Vol] 91 mg/dL 70-99 [facility] Serum or plasma calcium leah urement (mass/volume)Ordered By: Joe Sanchez on 06-04-2024 Calcium [Mass/Vol] 9.5 mg/dL 7.6-11.0 [facility] Serum or plasma urea nitroge n measurement (mass/volume)Ordered By: Joe Sanchez on 06-04-2024 Urea nitrogen [Mass/Vol] 28 mg/dL High 4-19 [facility] Sodium levelOrdered By: Lluviaclaudio kayleigh Arturoawaismilton on 06-04-2024 Sodium [Moles/Vol] 138 mmol/L 133-145 [facility] White blood cell (WBC) count Ordered By: Joe Sanchez on 06-04-2024 WBC (Bld) [#/Vol] 8.1 10*3/uL 4.4-11.0 [facility] Absolute lymphocyte countOrd ered By: Joe Sanchez on 05-07-2024 Lymphocytes Auto (Unsp spec) [#/Vol] 1.40 10*3/uL 0.83-4.51 [facility] Absolute neutrophil countOrd ered By: Joe Sanchez on 05-07-2024 Neutrophils (Bld) [#/Vol] 5.1 10*3/uL 2.0-7.7 [facility] Automated lymphocyte count a s percentage of total leukocytesOrdered By: Joe Sanchez on 05-07-2024 Lymphocytes/100 WBC Auto (Unsp spec) 19.1 % 19-41 [facility] Basophil percentageOrdered B y: Joe Sanchez on 05-07-2024 Basophils/100 WBC (Bld) 1.0 % 0-1 [facility] Blood urea nitrogen (BUN)/cr eatinine ratioOrdered By: Joe Sanchez on 05-07-2024 Urea nitrogen/Creatinine [Mass ratio] 13.9 mg/mg 10-20 [facility] Carbon dioxide measurementOr dered By: Joe Sanchez on 05-07-2024 CO2 [Moles/Vol] 28.0 mmol/L 21.0-32.0 [facility] Chloride measurementOrdered By: claudiocrapolynnette Sanchez on 05-07-2024 Chloride [Moles/Vol] 101 mmol/L 98-107 [facility] Eosinophil percentageOrdered By: Joe Sanchez on 05-07-2024 Eosinophils/100 WBC (Bld) 2.7 % 0-5 [facility] Erythrocyte distribution wid th (RBC) [Ratio]Ordered By: Joe Sanchez on 05-07-2024 Erythrocyte distribution width (RBC) [Entitic vol] 48.3 fL High 35.1-43.9 [facility] Erythrocyte distribution wid th ratioOrdered By: Joe Sanchez on 05-07-2024 Erythrocyte distribution width (RBC) [Ratio] 13.5 % 11.6-14.6 [facility] Erythrocyte distribution wid th standard deviationOrdered By: montez Sanchez on 05-07-2024 Erythrocyte distribution width (RBC) [Ratio] 48.3 fl High 35.1-43.9 [facility] Estimated glomerular filtrat ion rate (GFR) AmericanOrdered By: Joe Sanchez on 05-07-2024 Estimated GFR (MDRD) Amer 29 mL/min Low >60 [facility] Comment on above: GFR Calc Glomerular filtration rate ( GFR) estimationOrdered By: Joe Sanchez on 05-07-2024 Estimated GFR (MDRD) Non-Af Amer 24 mL/min Low >60 [facility] Comment on above: Non- GFR Calc GFR/1.73 sq M.predicted among non-blacks MDRD (S/P/Bld) [Vol rate/Area] 24 mL/min/{1.73_m2} Low >60 [facility] Comment on above: Non- GFR Calc Glucose measurementOrdered B y: Joe Sanchez on 05-07-2024 Glucose [Mass/Vol] 122 mg/dL High 74-106 [facility] Comment on above: Fasting Glucose resu lt from 100 to 125 mg/dL suggests IMPAIRED HOMEOSTASIS per A.D.A. criteria. Hematocrit Auto (Bld) [Volum e fraction]Ordered By: Joe Sanchez on 05-07-2024 Hematocrit (Bld) [Volume fraction] 41.3 % 37-47 [facility] Hemoglobin measurementOrdere d By: Joe Sanchez on 05-07-2024 Hemoglobin (Bld) [Mass/Vol] 13.4 g/dL 12.0-15.0 [facility] Immature granulocytes/100 WB C Auto (Bld)Ordered By: Joe Sanchez on 05-07-2024 Immature granulocytes/100 WBC (Bld) 0.700 % 0.0-0.9 [facility] Comment on above: IG% - Immature Granu locytes (promyelocytes, myelocytes and metamyelocytes) > 1% indicates that a LEFT SHIFT is Present. Lymphocytes Auto (Unsp spec) [#/Vol]Ordered By: Joe Sanchez on 05-07-2024 Lymphocytes (Bld) [#/Vol] 1.40 10*3/uL 0.83-4.51 [facility] Lymphocytes/100 WBC Auto (Un sp spec)Ordered By: Joe Sanchez on 05-07-2024 Lymphocytes/100 WBC (Bld) 19.1 % 19-41 [facility] MCV (mean corpuscular volume ) determinationOrdered By: Joe Sanchez on 05-07-2024 MCV (RBC) [Entitic vol] 98.6 fL 81-99 [facility] Mean corpuscular hemoglobin (MCH) determinationOrdered By: Joe Sanchez on 05-07-2024 MCH (RBC) [Entitic mass] 32.0 pg 27.0-32.0 [facility] Mean corpuscular hemoglobin concentration (MCHC) determinationOrdered By: Joe Sanchez on 05-07-2024 MCHC (RBC) [Mass/Vol] 32.4 g/dL 32-[address] [facility] Mean platelet volume determi nationOrdered By: Joe Sanchez on 05-07-2024 Platelet mean volume (Bld) [Entitic vol] 12.6 fL High 6.2-12.0 [facility] Monocyte percentageOrdered B y: Joe Sanchez on 05-07-2024 Monocytes/100 WBC (Bld) 7.4 % 0-10 [facility] Neutrophil percentageOrdered By: Joe Sanchez on 05-07-2024 Neutrophils/100 WBC (Bld) 69.1 % 47-70 [facility] Nucleated red blood cell per centageOrdered By: Joe Sanchez on 05-07-2024 Nucleated RBC/100 WBC (Bld) [Ratio] 0 % 0-5 [facility] Platelet countOrdered By: Lluvia Sanchez on 05-07-2024 Platelets (Bld) [#/Vol] 194 10*3/uL 150-450 [facility] Potassium measurementOrdered By: Joe Sanchez on 05-07-2024 Potassium [Moles/Vol] 3.6 mmol/L 3.5-5.[address] [facility] RBC Auto (Bld) [#/Vol]Ordere d By: Joe Sanchez on 05-07-2024 RBC (Bld) [#/Vol] 4.19 10*6/uL Low 4.2-5.4 [facility] Serum anion gap measurementO rdered By: Joe Sanchez on 05-07-2024 Anion gap [Moles/Vol] 10 mmol/L 5-[address] [facility] Serum or plasma calcium leah urement (mass/volume)Ordered By: Joe Sanchez on 05-07-2024 Calcium [Mass/Vol] 9.3 mg/dL 8.5-10.1 [facility] Serum or plasma creatinine m easurement (mass/volume)Ordered By: Joe Sanchez on 05-07-2024 Creatinine [Mass/Vol] 2.08 mg/dL High 0.55-1.[address] [facility] Comment on above: The validity of the calculated GFR & GFRAA in patients over 70 years has not been determined. Clinical correlation is essential. Serum or plasma urea nitroge n measurement (mass/volume)Ordered By: Joe Sanchez on 05-07-2024 Urea nitrogen [Mass/Vol] 29 mg/dL High 7-18 [facility] Sodium levelOrdered By: Yudi Sanchez on 05-07-2024 Sodium [Moles/Vol] 139 mmol/L 136-145 [facility] White blood cell (WBC) count Ordered By: Joe Sanchez on 05-07-2024 WBC (Bld) [#/Vol] 7.3 10*3/uL 4.4-11.0 [facility] 26-XW-Rgoatsm DOrdered By: Milton Sanchez on 04-22-2024 Vitamin D 25-Hydroxy 69.4 ng/mL [facility] Comment on above: Vitamin D 25(OH) Sta tus Range Deficiency <20 ng/mL (50nmol/L) Insufficiency 20 - 30 ng/mL (50 - 75 nmol/L) Sufficiency 30 - 100 ng/mL (75 - 250 nmol/L) Toxicity >100 ng/mL (>250 nmol/L) Bilirubin directOrdered By: Joe Sanchez on 04-22-2024 Bilirubin.direct [Mass/Vol] 0.29 mg/dL 0.00-0.30 [facility] Bilirubin, totalOrdered By: Joe Sanchez on 04-22-2024 Bilirubin [Mass/Vol] 0.90 mg/dL 0.20-1.00 [facility] Comment on above: For patients on eltr ombopag therapy, use of Dimension Gravity TBIL is not recommended. Hemoglobin A1c percentageOrd ered By: Joe Sanchez on 04-22-2024 HbA1c (Bld) [Mass fraction] 5.2 % 3.8-5.6 [facility] Comment on above: Normal < 5.7 % Predi abetic 5.7 - 6.4 % Diabetic >or= 6.5 % Please note range changes. High density lipoprotein (HD L) measurementOrdered By: Joe Sanchez on 04-22-2024 Cholesterol in HDL [Mass/Vol] 44 mg/dL >40 [facility] Comment on above: The drugs N-Acetylcy steine and Metamizole may falsely depress this assay. Reference Range HDL <40 mg/dL Low HDL Cholesterol HDL >or= 60 mg/dL High HDL Cholesterol Laboratory - Chemistry and C hemistry - challengeOrdered By: Joe Sanchez on 04-22-2024 AST [Catalytic activity/Vol] 15 U/L 15-37 [facility] Low density lipoprotein (LDL ) cholesterol measurementOrdered By: Joe Sanchez on 04-22-2024 Cholesterol in LDL [Mass/Vol] 41 mg/dL 0-130 [facility] Serum globulin measurementOr dered By: Joe Sanchez on 04-22-2024 Globulin (S) [Mass/Vol] 3.7 g/dL 2.2-4.2 [facility] Serum or plasma alanine kilpatrick otransferase (ALT) measurementOrdered By: Joe Sanchez on 04-22-2024 ALT [Catalytic activity/Vol] 14 U/L 13-56 [facility] Serum or plasma albumin leah urement (mass/volume)Ordered By: Joe Sanchez on 04-22-2024 Albumin [Mass/Vol] 2.7 g/dL Low 3.2-5.0 [facility] Serum or plasma alkaline kirti sphatase measurementOrdered By: Joe Sanchez on 04-22-2024 ALP [Catalytic activity/Vol] 61 U/L 45-117 [facility] Serum or plasma cholesterol measurement (mass/volume)Ordered By: Joe Sanchez on 04-22-2024 Cholesterol [Mass/Vol] 106 mg/dL <200 [facility] Comment on above: <200 mg/dL Desirable 200-240 mg/dL Borderline >240 mg/dL High Risk Total proteinOrdered By: Constantin chancelynnette Sanchez on 04-22-2024 Protein [Mass/Vol] 6.4 g/dL 6.4-8.2 [facility] Triglycerides measurementOrd ered By: Yudimelissalynnette Sanchez on 04-22-2024 Triglyceride [Mass/Vol] 107 mg/dL <199 [facility] Comment on above: The drugs N-Acetylcy steine and Metamizole may falsely depress this assay.Serum Triglycerides Reference Interval Normal <150 mg/dL Borderline high 150 - 199 mg/dL High 200 - 499 mg/dL Very High > or = 500 mg/dL Very low density lipoprotein (VLDL) cholesterol measurementOrdered By: Joe Sanchez on 04-22-2024 Very low density lipoprotein (VLDL) cholesterol measurement 21 mg/dL 5-40 [facility] VLDL Cholesterol 21 mg/dL 5-40 [facility] Absolute lymphocyte countOrd ered By: Joe Sanchez on 04-09-2024 Lymphocytes Auto (Unsp spec) [#/Vol] 1.63 10*3/uL 0.83-4.51 [facility] Absolute neutrophil countOrd ered By: Joe Sanchez on 04-09-2024 Neutrophils (Bld) [#/Vol] 5.0 10*3/uL 2.0-7.7 [facility] Automated lymphocyte count a s percentage of total leukocytesOrdered By: Joe Sanchez on 04-09-2024 Lymphocytes/100 WBC Auto (Unsp spec) 20.7 % 19- [facility] Basophil percentageOrdered B y: Joe Sanchez on 04-09-2024 Basophils/100 WBC (Bld) 1.3 % High 0-1 [facility] Blood urea nitrogen (BUN)/cr eatinine ratioOrdered By: Joe Sanchez on 04-09-2024 Urea nitrogen/Creatinine [Mass ratio] 11.4 mg/mg 10-20 [facility] Carbon dioxide measurementOr dered By: Joe Sanchez on 04-09-2024 CO2 [Moles/Vol] 30.0 mmol/L 21.0-32.0 [facility] Chloride measurementOrdered By: Joe Sanchez on 04-09-2024 Chloride [Moles/Vol] 100 mmol/L 98-107 [facility] Eosinophil percentageOrdered By: Joe Sanchez on 04-09-2024 Eosinophils/100 WBC (Bld) 2.4 % 0-5 [facility] Erythrocyte distribution wid th (RBC) [Ratio]Ordered By: Joe Sanchez on 04-09-2024 Erythrocyte distribution width (RBC) [Entitic vol] 49.9 fL High 35.1-43.9 [facility] Erythrocyte distribution wid th ratioOrdered By: Joe Sanchez on 04-09-2024 Erythrocyte distribution width (RBC) [Ratio] 13.6 % 11.6-14.6 [facility] Erythrocyte distribution wid th standard deviationOrdered By: Joe Sanchez on 04-09-2024 Erythrocyte distribution width (RBC) [Ratio] 49.9 fl High 35.1-43.9 [facility] Estimated glomerular filtrat ion rate (GFR) AmericanOrdered By: Joe Sanchez on 04-09-2024 Estimated GFR (MDRD) Amer 36 mL/min Low >60 [facility] Comment on above: GFR Calc Glomerular filtration rate ( GFR) estimationOrdered By: Joe Sanchez on 04-09-2024 Estimated GFR (MDRD) Non-Af Amer 30 mL/min Low >60 [facility] Comment on above: Non- GFR Calc GFR/1.73 sq M.predicted among non-blacks MDRD (S/P/Bld) [Vol rate/Area] 30 mL/min/{1.73_m2} Low >60 [facility] Comment on above: Non- GFR Calc Glucose measurementOrdered B y: Joe Sanchez on 04-09-2024 Glucose [Mass/Vol] 86 mg/dL 74-106 [facility] Hematocrit Auto (Bld) [Volum e fraction]Ordered By: Joe Sanchez on 04-09-2024 Hematocrit (Bld) [Volume fraction] 40.5 % 37-47 [facility] Hemoglobin measurementOrdere d By: Joe Sanchez on 04-09-2024 Hemoglobin (Bld) [Mass/Vol] 13.0 g/dL 12.0-15.0 [facility] Immature granulocytes/100 WB C Auto (Bld)Ordered By: Joe Sanchez on 04-09-2024 Immature granulocytes/100 WBC (Bld) 0.600 % 0.0-0.9 [facility] Comment on above: IG% - Immature Granu locytes (promyelocytes, myelocytes and metamyelocytes) > 1% indicates that a LEFT SHIFT is Present. Lymphocytes Auto (Unsp spec) [#/Vol]Ordered By: claudiocrapolynnette Sanchez on 04-09-2024 Lymphocytes (Bld) [#/Vol] 1.63 10*3/uL 0.83-4.51 [facility] Lymphocytes/100 WBC Auto (Un sp spec)Ordered By: montez Sanchez on 04-09-2024 Lymphocytes/100 WBC (Bld) 20.7 % 19-41 [facility] MCV (mean corpuscular volume ) determinationOrdered By: Joe Sanchez on 04-09-2024 MCV (RBC) [Entitic vol] 98.5 fL 81-99 [facility] Mean corpuscular hemoglobin (MCH) determinationOrdered By: Joe Sanchez on 04-09-2024 MCH (RBC) [Entitic mass] 31.6 pg 27.0-32.0 [facility] Mean corpuscular hemoglobin concentration (MCHC) determinationOrdered By: Joe Sanchez on 04-09-2024 MCHC (RBC) [Mass/Vol] 32.1 g/dL 32-[address] [facility] Mean platelet volume determi nationOrdered By: montez Sanchez on 04-09-2024 Platelet mean volume (Bld) [Entitic vol] 12.2 fL High 6.2-12.0 [facility] Monocyte percentageOrdered B y: Joe Sanchez on 04-09-2024 Monocytes/100 WBC (Bld) 10.9 % High 0-10 [facility] Neutrophil percentageOrdered By: Joe Sanchez on 01-21-2025 Neutrophils/100 WBC (Bld) 64.1 % 47-70 [facility] Nucleated red blood cell per centageOrdered By: Joe Sanchez on 04-09-2024 Nucleated RBC/100 WBC (Bld) [Ratio] 0 % 0-5 [facility] Platelet countOrdered By: Lluvia Sanchez on 04-09-2024 Platelets (Bld) [#/Vol] 215 10*3/uL 150-450 [facility] Potassium measurementOrdered By: Joe Sanchez on 04-09-2024 Potassium [Moles/Vol] 4.2 mmol/L 3.5-5.[address] [facility] RBC Auto (Bld) [#/Vol]Ordere d By: Joe Sanchez on 04-09-2024 RBC (Bld) [#/Vol] 4.11 10*6/uL Low 4.2-5.4 [facility] Serum anion gap measurementO rdered By: Joe Sanchez on 04-09-2024 Anion gap [Moles/Vol] 6 mmol/L 5-[address] [facility] Serum or plasma calcium leah urement (mass/volume)Ordered By: Joe Sanchez on 04-09-2024 Calcium [Mass/Vol] 9.8 mg/dL 8.5-10.1 [facility] Serum or plasma creatinine m easurement (mass/volume)Ordered By: Joe Sanchez on 04-09-2024 Creatinine [Mass/Vol] 1.75 mg/dL High 0.55-1.[address] [facility] Comment on above: The validity of the calculated GFR & GFRAA in patients over 70 years has not been determined. Clinical correlation is essential. Serum or plasma urea nitroge n measurement (mass/volume)Ordered By: Joe Sanchez on 04-09-2024 Urea nitrogen [Mass/Vol] 20 mg/dL High 7-18 [facility] Sodium levelOrdered By: Yudi Sanchez on 04-09-2024 Sodium [Moles/Vol] 137 mmol/L 136-145 [facility] White blood cell (WBC) count Ordered By: Joe Sanchez on 04-09-2024 WBC (Bld) [#/Vol] 7.9 10*3/uL 4.4-11.0 [facility] 36on 04-03-2024 36 Records received and scanned under [employer] 36on 04-01-2024 36 I called Osmany and she requested me to fax med recs release to [phone] I faxed this morning. Confirmed 04/02 at 5:45p 36on 03-15-2024 36 Chart reviewed, patient completed 30 day follow-up in [place]. Cancelled echo order 36 Patient prefers care in [facility] 36 We have been unable to reach your patient to schedule their testing. Test Name: echo 1st Attempt: 03/14/2024 left voicemail 2nd Attempt: 03/15/2024 left voicemail Bilirubin Test strip Ql (U)O rdered By: Joe Sanchez on 03-15-2024 Bilirubin Ql (U) Negative Negative [facility] Glucose Ql (U)Ordered By: Lluvia Sanchez on 03-15-2024 Glucose (U) [Mass/Vol] 250 mg/dL High Normal [facility] Ketones Test strip Ql (U)Ord ered By: Joe Sanchez on 03-15-2024 Ketones Ql (U) Negative Negative [facility] Nitrite Test strip Ql (U)Ord ered By: Joe Sanchez on 03-15-2024 Nitrite Ql (U) Negative Negative [facility] Protein Test strip Ql (U)Ord ered By: Joe Sanchez on 03-15-2024 Protein Ql (U) 100 mg/dl High Negative [facility] Urine blood detectionOrdered By: Joe Sanchez on 03-15-2024 Urine Occult Blood 250 /ul High Negative [facility] Urine clarityOrdered By: Constantin Sanchez on 03-15-2024 Clarity (U) Cloudy Clear [facility] Urine color determinationOrd ered By: Joe Sanchez on 03-15-2024 Color (U) Straw Yellow [facility] Urine cultureOrdered By: Constantin Sanchez on 03-15-2024 Bacteria identified Cx Nom (U) Enterobacter cloacae complex Abnormal [facility] Urine leukocyte esterase det ection by dipstickOrdered By: Joe Sanchez on 03-15-2024 Leukocyte esterase Test strip Ql (U) 500 /ul High Negative [facility] Urine pHOrdered By: Miles Sanchez on 03-15-2024 pH (U) 6.0 [pH] 5.0 - 8.0 [facility] Urine specific gravity measu rementOrdered By: Joe Sanchez on 03-15-2024 Specific gravity (U) [Rel density] 1.015 1.002-1.030 [facility] Urobilinogen Ql (U)Ordered B y: Joe Sanchez on 03-15-2024 Urine Urobilinogen Normal mg/dl Normal [facility] Absolute neutrophil countOrd ered By: Joe Sanchez on 03-08-2024 Neutrophils (Bld) [#/Vol] 5.5 10*3/uL 2.0-7.7 [facility] Basophil percentageOrdered B y: Joe Sanchez on 03-08-2024 Basophils/100 WBC (Bld) 1.3 % High 0-1 [facility] Blood urea nitrogen (BUN)/cr eatinine ratioOrdered By: Joe Sanchez on 03-08-2024 Urea nitrogen/Creatinine [Mass ratio] 13.4 mg/mg 10-20 [facility] Carbon dioxide measurementOr dered By: Joe Sanchez on 03-08-2024 CO2 [Moles/Vol] 27.0 mmol/L 21.0-32.0 [facility] Chloride measurementOrdered By: Joe Sanchez on 03-08-2024 Chloride [Moles/Vol] 98 mmol/L 98-107 [facility] Eosinophil percentageOrdered By: Joe Sanchez on 03-08-2024 Eosinophils/100 WBC (Bld) 3.6 % 0-5 [facility] Erythrocyte distribution wid th (RBC) [Ratio]Ordered By: Joe Sanchez on 03-08-2024 Erythrocyte distribution width (RBC) [Entitic vol] 50.5 fL High 35.1-43.9 [facility] Erythrocyte distribution wid th ratioOrdered By: Joe Chaumilton on 03-08-2024 Erythrocyte distribution width (RBC) [Ratio] 14.1 % 11.6-14.6 [facility] Estimated glomerular filtrat ion rate (GFR) AmericanOrdered By: Joe Sanchez on 03-08-2024 Estimated GFR (MDRD) Amer 35 mL/min Low >60 [facility] Comment on above: GFR Calc Glomerular filtration rate ( GFR) estimationOrdered By: Joe Sanchez on 03-08-2024 Estimated GFR (MDRD) Non-Af Amer 29 mL/min Low >60 [facility] Comment on above: Non- GFR Calc Glucose measurementOrdered B y: Joe Sanchez on 03-08-2024 Glucose [Mass/Vol] 82 mg/dL 74-106 [facility] Hematocrit Auto (Bld) [Volum e fraction]Ordered By: Joe Sanchez on 03-08-2024 Hematocrit (Bld) [Volume fraction] 39.8 % 37-47 [facility] Hemoglobin measurementOrdere d By: Yudimelissalynnette Sanchez on 03-08-2024 Hemoglobin (Bld) [Mass/Vol] 13.1 g/dL 12.0-15.0 [facility] Immature granulocytes/100 WB C Auto (Bld)Ordered By: Joe Sanchez on 03-08-2024 Immature granulocytes/100 WBC (Bld) 1.300 % High 0.0-0.9 [facility] Comment on above: IG% - Immature Granu locytes (promyelocytes, myelocytes and metamyelocytes) > 1% indicates that a LEFT SHIFT is Present. Lymphocytes Auto (Unsp spec) [#/Vol]Ordered By: Joe Sanchez on 03-08-2024 Lymphocytes (Bld) [#/Vol] 1.69 10*3/uL 0.83-4.51 [facility] Lymphocytes/100 WBC Auto (Un sp spec)Ordered By: Joe Sanchez on 03-08-2024 Lymphocytes/100 WBC (Bld) 19.6 % 19-41 [facility] MCV (mean corpuscular volume ) determinationOrdered By: Joe Sanchez on 03-08-2024 MCV (RBC) [Entitic vol] 97.3 fL 81-99 [facility] Mean corpuscular hemoglobin (MCH) determinationOrdered By: Efmontez Sanchez on 03-08-2024 MCH (RBC) [Entitic mass] 32.0 pg 27.0-32.0 [facility] Mean corpuscular hemoglobin concentration (MCHC) determinationOrdered By: Joe Sanchez on 03-08-2024 MCHC (RBC) [Mass/Vol] 32.9 g/dL 32-[address] [facility] Mean platelet volume determi nationOrdered By: Joe Sanchez on 03-08-2024 Platelet mean volume (Bld) [Entitic vol] 11.9 fL 6.2-12.0 [facility] Monocyte percentageOrdered B y: Joe Sanchez on 03-08-2024 Monocytes/100 WBC (Bld) 10.9 % High 0-10 [facility] Neutrophil percentageOrdered By: Joe Sanchez on 03-08-2024 Neutrophils/100 WBC (Bld) 63.3 % 47-70 [facility] Nucleated red blood cell per centageOrdered By: Joe Sanchez on 03-08-2024 Nucleated RBC/100 WBC (Bld) [Ratio] 0 % 0-5 [facility] Platelet countOrdered By: Ef claudioonglynnette Sanchez on 03-08-2024 Platelets (Bld) [#/Vol] 232 10*3/uL 150-450 [facility] Potassium measurementOrdered By: Joe Sanchez on 03-08-2024 Potassium [Moles/Vol] 4.1 mmol/L 3.5-5.[address] [facility] RBC Auto (Bld) [#/Vol]Ordere d By: Joaquinbe Kandie on 03-08-2024 RBC (Bld) [#/Vol] 4.09 10*6/uL Low 4.2-5.4 [facility] Serum anion gap measurementO rdered By: Joe Sanchez on 03-08-2024 Anion gap [Moles/Vol] 9 mmol/L 5-[address] [facility] Serum or plasma calcium leah urement (mass/volume)Ordered By: Joe Sanchez on 03-08-2024 Calcium [Mass/Vol] 9.6 mg/dL 8.5-10.1 [facility] Serum or plasma creatinine m easurement (mass/volume)Ordered By: Joe Sanchez on 03-08-2024 Creatinine [Mass/Vol] 1.79 mg/dL High 0.55-1.[address] [facility] Comment on above: The validity of the calculated GFR & GFRAA in patients over 70 years has not been determined. Clinical correlation is essential. Serum or plasma urea nitroge n measurement (mass/volume)Ordered By: Joe Sanchez on 03-08-2024 Urea nitrogen [Mass/Vol] 24 mg/dL High 7-18 [facility] Sodium levelOrdered By: Yudi kirbydrew Daniel on 03-08-2024 Sodium [Moles/Vol] 134 mmol/L Low 136-145 [facility] White blood cell (WBC) count Ordered By: Joe Sanchez on 03-08-2024 WBC (Bld) [#/Vol] 8.6 10*3/uL 4.4-11.0 [facility] Absolute neutrophil countOrd ered By: Joe Sanchez on 03-01-2024 Neutrophils (Bld) [#/Vol] 5.1 10*3/uL 2.0-7.7 [facility] Basophil percentageOrdered B y: Joe Sanchez on 03-01-2024 Basophils/100 WBC (Bld) 1.6 % High 0-1 [facility] Blood urea nitrogen (BUN)/cr eatinine ratioOrdered By: Joe Sanchez on 03-01-2024 Urea nitrogen/Creatinine [Mass ratio] 15.9 mg/mg 10- [facility] Carbon dioxide measurementOr dered By: Joe Sanchez on 03-01-2024 CO2 [Moles/Vol] 26.0 mmol/L 21.0-32.0 [facility] Chloride measurementOrdered By: Joe Sanchez on 03-01-2024 Chloride [Moles/Vol] 101 mmol/L 98-107 [facility] Eosinophil percentageOrdered By: Joe Sanchez on 03-01-2024 Eosinophils/100 WBC (Bld) 3.2 % 0-5 [facility] Erythrocyte distribution wid th (RBC) [Ratio]Ordered By: Joe Sanchez on 03-01-2024 Erythrocyte distribution width (RBC) [Entitic vol] 49.1 fL High 35.1-43.9 [facility] Erythrocyte distribution wid th ratioOrdered By: Joe Sanchez on 03-01-2024 Erythrocyte distribution width (RBC) [Ratio] 14.0 % 11.6-14.6 [facility] Estimated glomerular filtrat ion rate (GFR) AmericanOrdered By: Joe Sacnhez on 03-01-2024 Estimated GFR (MDRD) Amer 30 mL/min Low >60 [facility] Comment on above: GFR Calc Glomerular filtration rate ( GFR) estimationOrdered By: Joe Sanchez on 03-01-2024 Estimated GFR (MDRD) Non-Af Amer 25 mL/min Low >60 [facility] Comment on above: Non- GFR Calc Glucose measurementOrdered B y: Joe Sanchez on 03-01-2024 Glucose [Mass/Vol] 101 mg/dL 74-106 [facility] Comment on above: Fasting Glucose resu lt from 100 to 125 mg/dL suggests IMPAIRED HOMEOSTASIS per A.D.A. criteria. Hematocrit Auto (Bld) [Volum e fraction]Ordered By: Joe Sanchez on 03-01-2024 Hematocrit (Bld) [Volume fraction] 37.7 % 37-47 [facility] Hemoglobin measurementOrdere d By: Joe Sanchez on 03-01-2024 Hemoglobin (Bld) [Mass/Vol] 12.6 g/dL 12.0-15.0 [facility] Immature granulocytes/100 WB C Auto (Bld)Ordered By: Joe Sanchez on 03-01-2024 Immature granulocytes/100 WBC (Bld) 1.200 % High 0.0-0.9 [facility] Comment on above: IG% - Immature Granu locytes (promyelocytes, myelocytes and metamyelocytes) > 1% indicates that a LEFT SHIFT is Present. Lymphocytes Auto (Unsp spec) [#/Vol]Ordered By: Joe Sanchez on 03-01-2024 Lymphocytes (Bld) [#/Vol] 1.56 10*3/uL 0.83-4.51 [facility] Lymphocytes/100 WBC Auto (Un sp spec)Ordered By: Joe Sancehz on 03-01-2024 Lymphocytes/100 WBC (Bld) 19.0 % 19-41 [facility] MCV (mean corpuscular volume ) determinationOrdered By: Joe Sanchez on 03-01-2024 MCV (RBC) [Entitic vol] 96.2 fL 81-99 [facility] Mean corpuscular hemoglobin (MCH) determinationOrdered By: Joe Sanchez on 03-01-2024 MCH (RBC) [Entitic mass] 32.1 pg High 27.0-32.0 [facility] Mean corpuscular hemoglobin concentration (MCHC) determinationOrdered By: Joe Sanchez on 03-01-2024 MCHC (RBC) [Mass/Vol] 33.4 g/dL 32-[address] [facility] Mean platelet volume determi nationOrdered By: Joe Sanchez on 03-01-2024 Platelet mean volume (Bld) [Entitic vol] 12.0 fL 6.2-12.0 [facility] Monocyte percentageOrdered B y: Joe Sanchez on 03-01-2024 Monocytes/100 WBC (Bld) 12.9 % High 0-10 [facility] Neutrophil percentageOrdered By: Joe Sanchez on 03-01-2024 Neutrophils/100 WBC (Bld) 62.1 % 47-70 [facility] Nucleated red blood cell per centageOrdered By: Joe Sanchez on 03-01-2024 Nucleated RBC/100 WBC (Bld) [Ratio] 0 % 0-5 [facility] Platelet countOrdered By: Lluvia Sanchez on 03-01-2024 Platelets (Bld) [#/Vol] 212 10*3/uL 150-450 [facility] Potassium measurementOrdered By: Joe Sanchez on 03-01-2024 Potassium [Moles/Vol] 4.1 mmol/L 3.5-5.[address] [facility] RBC Auto (Bld) [#/Vol]Ordere d By: Joe Sanchez on 03-01-2024 RBC (Bld) [#/Vol] 3.92 10*6/uL Low 4.2-5.4 [facility] Serum anion gap measurementO rdered By: Joe Sanchez on 03-01-2024 Anion gap [Moles/Vol] 8 mmol/L 5-[address] [facility] Serum or plasma calcium leah urement (mass/volume)Ordered By: Joe Sanchez on 03-01-2024 Calcium [Mass/Vol] 9.6 mg/dL 8.5-10.1 [facility] Serum or plasma creatinine m easurement (mass/volume)Ordered By: Joe Sanchez on 03-01-2024 Creatinine [Mass/Vol] 2.01 mg/dL High 0.55-1.[address] [facility] Comment on above: The validity of the calculated GFR & GFRAA in patients over 70 years has not been determined. Clinical correlation is essential. Serum or plasma urea nitroge n measurement (mass/volume)Ordered By: Joe Sanchez on 03-01-2024 Urea nitrogen [Mass/Vol] 32 mg/dL High 7-18 [facility] Sodium levelOrdered By: Yudi Sanchez on 03-01-2024 Sodium [Moles/Vol] 136 mmol/L 136-145 [facility] White blood cell (WBC) count Ordered By: Joe Sanchez on 03-01-2024 WBC (Bld) [#/Vol] 8.2 10*3/uL 4.4-11.0 [facility] Cardiology Visit Reporton Cardiology Visit Report [facility] [address] [place] [address] OFFICE VISIT Date of Service: 02/07/24 MR#: [id number] Acct: [id number] Name: BRIANNE CALL Rep #: [id number] : 1940 Provider: Dr. Suzan Garces MD Age/Sex: 83/F [place] [facility] Status: Signed HPI HPI History [...] Intake Visit Reasons: 1 M FU/NEEDS EKG Marketing Representative Required: No Accompanied by: Caregiver Is patient [...] Auscultation: Bilateral: Cl (more content not included)... [facility] 36on 01-04-2024 36 I spoke w/ Juana in Dr. Garces's office, asking for echo order to be faxed. I placed order, Teofilo David DNP to sign, order needs faxed to Juana's attention @ [phone]. Time frame dates given to Juana for completion of OV/EKG/echo. KCCQ mailed to pt. 36 ----- Message from JEREMIE Saldaña CNP sent at 01/04/2024 1:51 PM EDT ----- Please call [place] office and advise regarding registry requirements of one month and one yr appts and echo. Will likely need phone call for KCCQ. Office Visiton 01-04-2024 Follow-up visit [id number] Brianne Call 1940 F Date Provider Department Center 01/04/2024 42596-ODECUDMÓNICA DAVID [facility] [address] No family history on file Level of Service:63631 [place] OFFICE/OUTPATIENT ESTABLISHED MOD MDM 30 MIN Reason for Visit and Comments: Cardiac Valve Problem [1334] - One week post TAVR Progress Noteon 01-04-2024 Progress Note [facility] - [address] [address] Dept: [phone] Dept Visit type: Established : 1940 Reason for Visit: Cardiac Valve Problem (One week post TAVR) Assessment and Plan 1. Chronic atrial fibrillation (HCC). HR stable. Continue Apixaban 2. Severe aortic stenosis. S/p tAVR. Continue Eliquis. Will contact [place] regarding follow up and registry requirements. SBE prophylaxis. Plan echo in one month 3. Stage 3a chronic kidney disease (HCC). Renal function remains stable post procedure. 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 GFR 27--> 46 4. Left heart failure (HCC). Improved after TAVR, EF 30%--> 50 %, continue furosemide, Aldactone, Farxiga, metoprolol (allerg to landon/ARB) Plan follow up in [place] Subjective Ms Call is an 83 yr old female with a PMH of permanent AF, HFrEF, HTN, HPL, CKD stage 3b, obesity, GERD, and severe with EF 30%, mean and peak gradients 49/71 mm Hg. She underwent cardiac cath at [place] which showed non obstructive CAD. She underwent [...] wrist complaints. She wishes to follow in [place] as travel is difficult for her Allergies [...] 12/25/2023 Performed by Harjeet Huffman MD at [facility] OR CATARACT EXTRACTION HYSTERECTOMY No [...] specialty: Independent interpretation of tests: Mónica David, DYE WEIGHER HELPER - TRANSCRIBER Normal [facility] BASIC METABOLIC PANELon 10-0 Anion gap [Moles/Vol] 7 mmol/L Normal 3-13 [facility] Comment on above: Performed By: #### L AB15 ####Optical Effects Line Up Person: AIDE RUEDA ([id number])[facility] ([address] Calcium [Mass/Vol] 9.1 mg/dL Normal 8.4-10.4 [facility] Comment on above: Performed By: #### L AB15 ####Optical Effects Line Up Person: AIDE RUEDA ([id number])[facility] ([facility])[address] [place] [address] Chloride [Moles/Vol] 108 mmol/L High 98-107 [facility] Comment on above: Performed By: #### L AB15 ####Optical Effects Line Up Person: AIDE RUEDA ([id number])[facility] ([facility])[address] [place] [address] CO2 [Moles/Vol] 19 mmol/L Low 22-30 [facility] Comment on above: Performed By: #### L AB15 ####Optical Effects Line Up Person: AIDE RUEDA ([id number])[facility] ([facility])[address] [place] [address] Creatinine [Mass/Vol] 1.17 mg/dL High 0.52-1.04 [facility] Comment on above: Performed By: #### L AB15 ####Optical Effects Line Up Person: AIDE RUEDA ([id number])[facility] ([facility])[address] [place] [address] GLOMERULAR FILTRATION RATE ML/MIN/1.73 SQ M.PREDICTED 46.4 mL/min/1.73m*2 Low >60.0 [facility] Comment on above: Result Comment: Calc ulation based on the Chronic Kidney Disease Epidemiology Collaboration (CKD-EPI) equation refit without adjustment for race Performed By: #### L AB15 ####Optical Effects Line Up Person: AIDE RUEDA ([id number])[facility] ([facility])[address] [place] [address] [place] Glucose [Mass/Vol] 121 mg/dL High 70-100 [facility] Comment on above: Performed By: #### L AB15 ####Optical Effects Line Up Person: AIDE RUEDA ([id number])[facility] ([facility])[address] [place] [address] Potassium [Moles/Vol] 4.4 mmol/L Normal 3.5-5.1 [facility] Comment on above: Performed By: #### L AB15 ####Optical Effects Line Up Person: AIDE RUEDA ([id number])[facility] ([facility])[address] [place] [address] Sodium [Moles/Vol] 134 mmol/L Low 135-145 [facility] Comment on above: Performed By: #### L AB15 ####Optical Effects Line Up Person: AIDE RUEDA ([id number])[facility] ([facility])[address] [place] [address] Urea nitrogen [Mass/Vol] 31 mg/dL High 7-17 [facility] Comment on above: Performed By: #### L AB15 ####Optical Effects Line Up Person: AIDE RUEDA ([id number])[facility] ([facility])[address] [place] [address] Basic metabolic 1998 panelon 12-26-2023 Anion gap [Moles/Vol] 7 mmol/L 3 - 13 mmol/L [facility] Calcium [Mass/Vol] 9.1 mg/dL 8.4 - 10. 4 mg/dL [facility] Chloride [Moles/Vol] 108 mmol/L High 98 - 10 7 mmol/L [facility] CO2 [Moles/Vol] 19 mmol/L Low 22 - 30 mmol/L [facility] Creatinine [Mass/Vol] 1.17 mg/dL High 0.52 - 1.04 mg/dL [facility] GFR/1.73 sq M.predicted (S/P/Bld) [Vol rate/Area] 46.4 mL/min Low - PINF [facility] Comment on above: Calculation based on the Chronic Kidney Disease Epidemiology Collaboration (CKD-EPI) equation refit without adjustment for race Glucose [Mass/Vol] 121 mg/dL High 70 - 100 mg/dL [facility] Interpretation and review of laboratory results Abnormal [facility] Potassium [Moles/Vol] 4.4 mmol/L 3.5 - 5.1 mmol/L [facility] Sodium [Moles/Vol] 134 mmol/L Low 135 - 145 mmol/L [facility] Urea nitrogen [Mass/Vol] 31 mg/dL High 7 - 17 mg/dL [facility] CBC (HEMOGRAM)on 12-26-2023 Erythrocyte distribution width (RBC) [Ratio] 13.3 % Normal 11.5-15.0 [facility] Comment on above: Performed By: #### L [id number] ####Optical Effects Line Up Person: AIDE RUEDA ([id number])[facility])[address] [place] [address] Hematocrit (Bld) [Volume fraction] 43.0 % Normal 35.0-47.0 [facility] Comment on above: Performed By: #### L [id number] ####Optical Effects Line Up Person: AIDE RUEDA ([id number])[facility])[address] [place] [address] Hemoglobin (Bld) [Mass/Vol] 14.0 g/dL Normal 11.7-16.0 [facility] Comment on above: Performed By: #### L [id number] ####Optical Effects Line Up Person: AIDE RUEDA ([id number])[facility])[address] [place] [address] MCH (RBC) [Entitic mass] 31.9 pg Normal 26.0-34.0 [facility] Comment on above: Performed By: #### L [id number] ####Optical Effects Line Up Person: AIDE RUEDA ([id number])[facility])[address] [place] [address] MCHC 32.6 % Normal 30.5-36.0 [facility] Comment on above: Performed By: #### L [id number] ####Optical Effects Line Up Person: AIDE RUEDA ([id number])[facility])[address] [place] [address] MCV (RBC) [Entitic vol] 97.9 fL Normal 77.0-99.0 [facility] Comment on above: Performed By: #### L [id number] ####Optical Effects Line Up Person: AIDE RUEDA ([id number])[facility])[address] [place] [address] Platelet mean volume (Bld) [Entitic vol] 12.4 fL Normal 9.0-12.7 [facility] Comment on above: Performed By: #### L [id number] ####Optical Effects Line Up Person: AIDE RUEDA ([id number])[facility] ([facility])[address] [place] [address] Platelets (Bld) [#/Vol] 154 10*3/uL Normal 140-440 [facility] Comment on above: Performed By: #### L [id number] ####Optical Effects Line Up Person: AIDE RUEDA ([id number])[facility] ([facility])[address] [place] [address] RBC (Bld) [#/Vol] 4.39 10*6/uL Normal 3.80-5.20 [facility] Comment on above: Performed By: #### L [id number] ####Optical Effects Line Up Person: AIDE RUEDA ([id number])[facility] ([facility])[address] [place] [address] WBC (Bld) [#/Vol] 11.6 10*3/uL High 3.6-10.7 [facility] Comment on above: Performed By: #### L [id number] ####Optical Effects Line Up Person: AIDE RUEDA ([id number])[facility] ([facility])[address] [place] [address] CBC panel Auto (Bld)on 12-25 Erythrocyte distribution width (RBC) [Ratio] 13.3 % 11.5 - 15.0 % [facility] Hematocrit (Bld) [Volume fraction] 43.0 % 35.0 - 47.0 % [facility] Hemoglobin (Bld) [Mass/Vol] 14.0 g/dL 11.7 - 16.0 g/dL [facility] Interpretation and review of laboratory results Abnormal [facility] MCH (RBC) [Entitic mass] 31.9 pg 26.0 - 34.0 pg [facility] MCHC (RBC) [Mass/Vol] 32.6 % 30.5 - 36.0 % [facility] MCV (RBC) [Entitic vol] 97.9 fL 77.0 - 99.0 fL [facility] Platelet mean volume (Bld) [Entitic vol] 12.4 fL 9.0 - 12.7 fL [facility] Platelets (Bld) [#/Vol] 154 10*3/uL 140 - 440 10*3/uL [facility] RBC (Bld) [#/Vol] 4.39 10*6/uL 3.80 - 5.2 0 10*6/uL [facility] WBC (Bld) [#/Vol] 11.6 10*3/uL High 3.6 - 10.7 10*3/uL [facility] ECG 12-LEADon 12-26-2023 ECG 12-LEAD IMPRESSION: Atrial fibrillation with slow ventricular rate Repol abnrm suggests ischemia, diffuse leads Electronically Signed On 12-26-2023 16:26:55 EDT by Austin Carmona [facility] No Panel InformationOrdered By: Austin Carmona on 12-26-2023 P [place] 0 degrees [facility] Work Phone: [place] Interval 0 ms [facility] Work Phone: QRS [place] 48 degrees [facility] Work Phone: QRSD Interval 103 ms [facility] Work Phone: QT Interval 492 ms [facility] Work Phone: QTC Interval 404 ms [facility] Work Phone: T Wave [place] -74 degrees [facility] Work Phone: [facility] Work Phone: No Panel Informationon 12-25 Atrial fibrillation with slow ventricular rate Repol abnrm suggests ischemia, diffuse leads Electronically Signed On 12-26-2023 16:26:55 EDT by Austin Carmona Austin Kruger MD - 12/26/2023 IMPRESSION: Atrial fibrillation with slow ventricular rate Repol abnrm suggests ischemia, diffuse leads Electronically Signed On 12-26-2023 16:26:55 EDT by Austin Carmona [facility] P [place] 0 degrees [facility] [place] Interval 0 ms [facility] QRS [place] 22 degrees [facility] QRSD Interval 112 ms [facility] QT Interval 441 ms [facility] QTC Interval 405 ms [facility] T Wave [place] 230 degrees [facility] Austin Carmona MD - 12/26/2023 IMPRESSION: Atrial fibrillation Poor R wave progression, CONSIDER ANTERIOR INFARCT ST and T abnormality Electronically Signed On 12-26-2023 09:21:43 EDT by Austin Carmona [facility] Nursing Noteon 12-26-2023 Nursing Note Discharge instructions given to patient and daughter. Patient verbalizes understanding of medication changes and follow up appointments, and activity restrictions. Discharged to home with daughter. Normal [facility] US Heart TransthoracicOrdere d By: Christopher Ruggiero on 12-26-2023 Ao Root Index 1.47 cm/m2 [facility] Work Phone: Aortic Root 3.1 cm [facility] Work Phone: Aortic Sinus Valsalva 3.1 cm [facility] Work Phone: Aortic Sinus Valsalva Index 1.47 cm/m2 [facility] Work Phone: Ascending Aorta 3.6 cm [facility] Work Phone: Ascending Aorta Index 1.71 cm/m2 [facility] Work Phone: AV Area by Peak Velocity 0.6 cm2 [facility] Work Phone: AV Area by VTI 1.3 cm2 [facility] Work Phone: AV AT 75.0 ms [facility] Work Phone: AV Mean Gradient 21 mmHg [facility] Work Phone: AV Mean Velocity 2.8 m/s [facility] Work Phone: AV Peak Gradient 36 mmHg [facility] Work Phone: AV Peak Velocity 3.0 m/s [facility] Work Phone: AV Velocity Ratio 0.27 [facility] Work Phone: AV VTI 71.0 cm [facility] Work Phone: RAMÓN/BSA Peak Velocity 0.3 cm2/m2 [facility] Work Phone: RAMÓN/BSA VTI 0.6 cm2/m2 [facility] [employer] Work Phone: E/E' Lateral 11.25 [facility] [employer] Work Phone: E/E' Ratio (Averaged) 16.88 [facility] [employer] Work Phone: E/E' Septal 22.50 [facility] [employer] Work Phone: EF BP 36 % Abnormal 55 - 100 % [facility] [employer] Work Phone: Est. RA Pressure 3 mmHg [facility] Work Phone: Fractional Shortening 2D 29 % 28 - 44 % [facility] [employer] Work Phone: Interpretation and review of laboratory results Abnormal [facility] [employer] Work Phone: IVC Diameter 2.2 cm [facility] [employer] Work Phone: IVSd 1.4 cm Abnormal 0.6 - 0.9 cm [facility] [employer] Work Phone: LA Diameter 4.9 cm [facility] [employer] Work Phone: LA Size Index 2.32 cm/m2 [facility] [employer] Work Phone: LA Volume 2C 111 mL Abnormal 22 - 52 mL [facility] [employer] Work Phone: LA Volume 4C 131 mL Abnormal 22 - 52 mL [facility] [employer] Work Phone: LA Volume A/L 137 mL [facility] [employer] Work Phone: LA Volume BP 127 mL Abnormal 22 - 52 mL [facility] [employer] Work Phone: LA Volume Index 2C 53 mL/m2 Abnormal 16 - 34 mL/m2 [facility] [employer] Work Phone: LA Volume Index 4C 62 mL/m2 Abnormal 16 - 34 mL/m2 [facility] [employer] Work Phone: LA Volume Index A/L 65 mL/m2 16 - 34 mL/m2 [facility] [employer] Work Phone: LA Volume Index BP 60 ml/m2 Abnormal 16 - 34 ml/m2 [facility] [employer] Work Phone: LA/AO Root Ratio 1.58 [facility] Work Phone: LV E' Lateral Velocity 8 cm/s [facility] Work Phone: LV E' Septal Velocity 4 cm/s [facility] Work Phone: LV EDV A2C 137 mL [facility] Work Phone: LV EDV A4C 145 mL [facility] Work Phone: LV EDV BP 148 mL Abnormal 56 - 104 mL [facility] Work Phone: LV EDV Index A2C 65 mL/m2 [facility] He [facility] Work Phone: LV EDV Index A4C 69 mL/m2 [facility] He [facility] Work Phone: LV EDV Index BP 70 mL/m2 [facility] Work Phone: LV Ejection Fraction A2C 36 % [facility] Work Phone: LV Ejection Fraction A4C 35 % [facility] Work Phone: LV ESV A2C 88 mL [facility] Work Phone: LV ESV A4C 94 mL [facility] Work Phone: LV ESV BP 95 mL Abnormal 19 - 49 mL [facility] Work Phone: LV ESV Index A2C 42 mL/m2 [facility] Work Phone: LV ESV Index A4C 45 mL/m2 [facility] Work Phone: LV ESV Index BP 45 mL/m2 [facility] Work Phone: LV Mass 2D 355.3 g Abnormal 67 - 162 g [facility] Work Phone: LV Mass 2D Index 168.4 g/m2 Abnormal 43 - 95 g/m2 [facility] Work Phone: LV RWT Ratio 0.55 [facility] Work Phone: LVIDd 5.5 cm Abnormal 3.9 - 5.3 cm [facility] Work Phone: LVIDd Index 2.61 cm/m2 [facility] Work Phone: LVIDs 3.9 cm [facility] Work Phone: LVIDs Index 1.85 cm/m2 [facility] Work Phone: LVOT Area 4.2 cm2 [facility] Work Phone: LVOT Cardiac Output 3.1 liter/mi nut e [facility] Work Phone: LVOT Diameter 2.3 cm [facility] Work Phone: LVOT Mean Gradient 2 mmHg [facility] Work Phone: LVOT Peak Gradient 3 mmHg [facility] Work Phone: LVOT Peak Velocity 0.8 m/s [facility] Work Phone: LVOT Stroke Volume Index 45.3 mL/m2 [facility] Work Phone: LVOT SV 95.5 ml [facility] Work Phone: LVOT VTI 23.0 cm [facility] Work Phone: LVOT:AV VTI Index 0.32 [facility] ealth Work Phone: LVPWd 1.5 cm Abnormal 0.6 - 0.9 cm [facility] Work Phone: MR VTI 167.4 cm [facility] Work Phone: MV A Velocity 0.53 m/s [facility] Work Phone: MV Area by PHT 3.0 cm2 [facility] Work Phone: MV Area by VTI 2.1 cm2 [facility] Work Phone: MV E Velocity 0.90 m/s [facility] Work Phone: MV E Wave Deceleration Time 149.3 ms [facility] Work Phone: MV E/A 1.70 [facility] Work Phone: MV Max Velocity 1.2 m/s [facility] Work Phone: MV Mean Gradient 2 mmHg [facility] Work Phone: MV Mean Velocity 0.6 m/s [facility] Work Phone: MV Nyquist Velocity 30 cm/s [facility] Work Phone: MV Peak Gradient 6 mmHg [facility] Work Phone: MV PHT 73.0 ms [facility] Work Phone: MV Regurg Velocity PISA 5.3 m/s S [facility] Work Phone: MV VTI 46.5 cm [facility] Work Phone: MV:LVOT VTI Index 2.02 [facility] Work Phone: RA Area 4C 65.2 mL [facility] Work Phone: RV Basal Dimension 3.4 cm [facility] Work Phone: RV Free Wall Peak S' 9 cm/s [facility] Work Phone: RV Mid Dimension 1.4 cm [facility] Work Phone: RVSP 41 mmHg [facility] Work Phone: Sinotubular Junction 2.5 cm [facility] Work Phone: TAPSE 1.7 cm 1.7 cm [facility] Work Phone: TR Max Velocity 3.10 m/s [facility] Work Phone: [facility] Work Phone: Heart Transthoracicon [...] on 12-26-2023 Heart rate 37 /min bpm iodine Work Phone: Vital signson 12-26-2023 Heart rate 51 /min bpm iodine BASIC METABOLIC PANELon 10-0 Anion gap [Moles/Vol] 9 mmol/L Normal 3-13 [facility] Comment on above: Performed By: #### L [id number] ####[employer] Up Person: AIDE RUEDA ([id number])[facility])[address] [place] [address] Calcium [Mass/Vol] 8.5 mg/dL Normal 8.4-10.4 [facility] Comment on above: Performed By: #### L [id number] ####[employer] Line Up Person: AIDE RUEDA ([id number])[facility])[address] [place] [address] Chloride [Moles/Vol] 113 mmol/L High 98-107 [facility] Comment on above: Performed By: #### L [id number] ####[employer] Line Up Person: AIDE RUEDA ([id number])[facility])[address] [place] [address] CO2 [Moles/Vol] 19 mmol/L Low 22-30 [facility] Comment on above: Performed By: #### L [id number] ####[employer] Up Person: AIDE RUEDA ([id number])[facility])[address] [place] [address] Creatinine [Mass/Vol] 1.09 mg/dL High 0.52-1.04 [facility] Comment on above: Performed By: #### L [id number] ####[employer] Up Person: AIDE RUEDA ([id number])[facility])[address] [place] [address] GLOMERULAR FILTRATION RATE ML/MIN/1.73 SQ M.PREDICTED 50.5 mL/min/1.73m*2 Low >60.0 [facility] Comment on above: Result Comment: Calc ulation based on the Chronic Kidney Disease Epidemiology Collaboration (CKD-EPI) equation refit without adjustment for race ORDER COMMENTS: Slightly Hemolyzed. Interpret {TESTS AFFECTED BY SLIGHT HEMOLYSIS:09493} with caution. Performed By: #### L [id number] ####[employer] Line Up Person: AIDE RUEDA ([id number])[facility])[address] [place] [address] Glucose [Mass/Vol] 148 mg/dL High 70-100 [facility] Comment on above: Performed By: #### L [id number] ####[employer] Line Up Person: AIDE RUEDA ([id number])[facility])[address] [place] [address] Potassium [Moles/Vol] 4.7 mmol/L Normal 3.5-5.1 [facility] Comment on above: Performed By: #### L [id number] ####[employer] Effects Line Up Person: AIDE RUEDA ([id number])[facility] ([facility])[address] [place] [address] Sodium [Moles/Vol] 141 mmol/L Normal 135-145 [facility] Comment on above: Performed By: #### L [id number] ####[employer] Line Up Person: AIDE RUEDA ([id number])[facility])[address] [place] [address] Urea nitrogen [Mass/Vol] 28 mg/dL High 7-17 [facility] Comment on above: Performed By: #### L [id number] ####[employer] Line Up Person: AIDE RUEDA ([id number])[facility])[address] [place] [address] BLOOD TYPE AND SCREEN GELon 12-25-2023 ABO GROUPING O Normal [facility] Comment on above: Performed By: #### L [id number] #### [employer] Line Up Person: AIDE RUEDA ([id number]) [facility] ([facility]) [address] [place] [address] RH TYPE IN BLOOD Positive Normal [facility] Comment on above: Performed By: #### L [id number] #### [employer] Line Up Person: AIDE RUEDA ([id number]) [facility] ([facility]) [address] [place] [address] [place] Basic metabolic 1998 panelon 12-25-2023 Anion gap [Moles/Vol] 9 mmol/L 3 - 13 mmol/L [facility] Calcium [Mass/Vol] 8.5 mg/dL 8.4 - 10. 4 mg/dL [facility] Chloride [Moles/Vol] 113 mmol/L High 98 - 10 7 mmol/L [facility] CO2 [Moles/Vol] 19 mmol/L Low 22 - 30 mmol/L [facility] Creatinine [Mass/Vol] 1.09 mg/dL High 0.52 - 1.04 mg/dL [facility] GFR/1.73 sq M.predicted (S/P/Bld) [Vol rate/Area] 50.5 mL/min Low - PINF [facility] Comment on above: Calculation based on the Chronic Kidney Disease Epidemiology Collaboration (CKD-EPI) equation refit without adjustment for race Glucose [Mass/Vol] 148 mg/dL High 70 - 100 mg/dL [facility] Interpretation and review of laboratory results Abnormal [facility] Potassium [Moles/Vol] 4.7 mmol/L 3.5 - 5.1 mmol/L [facility] Sodium [Moles/Vol] 141 mmol/L 135 - 145 mmol/L [facility] Urea nitrogen [Mass/Vol] 28 mg/dL High 7 - 17 mg/dL [facility] Slightly Hemolyzed. Interpret {TESTS AFFECTED BY SLIGHT HEMOLYSIS:87339} with caution. [facility] Blood type and Crossmatch pa justin (Bld)on 12-25-2023 ABO group Nom (Bld) O [facility] Blood group antibody screen GEL Ql Negative [facility] D Ag Ql (RBC) Positive [facility] CBC (HEMOGRAM)on 12-25-2023 Erythrocyte distribution width (RBC) [Ratio] 13.3 % Normal 11.5-15.0 [facility] Comment on above: Performed By: #### L [id number] ####[employer] Line Up Person: AIDE RUEDA ([id number])[address] Hematocrit (Bld) [Volume fraction] 39.5 % Normal 35.0-47.0 [facility] Comment on above: Performed By: #### L [id number] ####[employer] Effects Line Up Person: AIDE RUEDA ([id number])[facility])[address] [place] [address] Hemoglobin (Bld) [Mass/Vol] 13.0 g/dL Normal 11.7-16.0 [facility] Comment on above: Performed By: #### L [id number] ####Optical Effects Line Up Person: AIDE RUEDA ([id number])[facility])[address] [place] [address] MCH (RBC) [Entitic mass] 31.9 pg Normal 26.0-34.0 [facility] Comment on above: Performed By: #### L [id number] ####Optical Effects Line Up Person: AIDE RUEDA ([id number])[facility])[address] [place] [address] MCHC 32.9 % Normal 30.5-36.0 [facility] Comment on above: Performed By: #### L [id number] ####[employer] Line Up Person: AIDE RUEDA ([id number])[facility])[address] [place] [address] MCV (RBC) [Entitic vol] 97.1 fL Normal 77.0-99.0 [facility] Comment on above: Performed By: #### L [id number] ####Optical Effects Line Up Person: AIDE RUEDA ([id number])[facility])[address] [place] [address] Platelet mean volume (Bld) [Entitic vol] 12.2 fL Normal 9.0-12.7 [facility] Comment on above: Performed By: #### L [id number] ####[employer] Line Up Person: AIDE RUEDA ([id number])[facility])[address] [place] [address] Platelets (Bld) [#/Vol] 140 10*3/uL Normal 140-440 [facility] Comment on above: Performed By: #### L [id number] ####[employer] Line Up Person: AIDE RUEDA ([id number])[facility])[address] [place] [address] RBC (Bld) [#/Vol] 4.07 10*6/uL Normal 3.80-5.20 [facility] Comment on above: Performed By: #### L [id number] ####[employer] Line Up Person: AIDE RUEDA ([id number])[facility] ([facility])[address] [place] [address] WBC (Bld) [#/Vol] 9.1 10*3/uL Normal 3.6-10.7 [facility] Comment on above: Performed By: #### L [id number] ####[employer] Effects Line Up Person: AIDE RUEDA ([id number])[facility] ([facility])[address] [place] [address] CBC panel Auto (Bld)on 12-24 Erythrocyte distribution width (RBC) [Ratio] 13.3 % 11.5 - 15.0 % [facility] Hematocrit (Bld) [Volume fraction] 39.5 % 35.0 - 47.0 % [facility] Hemoglobin (Bld) [Mass/Vol] 13.0 g/dL 11.7 - 16.0 g/dL [facility] Interpretation and review of laboratory results Normal [facility] MCH (RBC) [Entitic mass] 31.9 pg 26.0 - 34.0 pg [facility] MCHC (RBC) [Mass/Vol] 32.9 % 30.5 - 36.0 % [facility] MCV (RBC) [Entitic vol] 97.1 fL 77.0 - 99.0 fL [facility] Platelet mean volume (Bld) [Entitic vol] 12.2 fL 9.0 - 12.7 fL [facility] Platelets (Bld) [#/Vol] 140 10*3/uL 140 - 440 10*3/uL [facility] RBC (Bld) [#/Vol] 4.07 10*6/uL 3.80 - 5.2 0 10*6/uL [facility] WBC (Bld) [#/Vol] 9.1 10*3/uL 3.6 - 10.7 10*3/uL [facility] Cardiac catheterization stud yon 12-25-2023 Successful [id number] TAVR with a 23mm soumya S3u, via [...] Via the left femoral vein, a 6 Luxembourger sheath was placed and temporary pacing wire was placed into the RV apex with appropriate capture, in addition sterile tubing was attached and given the anesthesia for central access. Via right radial artery, a 6-Luxembourger sheath was placed and the pigtail catheter was placed into the aortic annulus with confirmation the implant angle. Via the left femoral artery, a 6-Luxembourger sheath was placed. The patient was then heparinized. Next, two Perclose devices were used using the pre-close strategy. A Super Stiff wire was then placed through the second Perclose into the descending aorta. Then, a 14-Luxembourger Soumya E-sheath was introduced over the wire [...] care of your patient while hospitalized at [facility]. I will continue to follow along while hospitalized. Please do not hesitate to call with any questions. [facility] [employer] [facility] No Panel Informationon 12-24 Blood Expiration Date S [facility] [employer] Blood Expiration Date S [facility] [employer] Crossmatch interpretation COMP [facility] [employer] Dispense Status Crossmatch [facility] Product Blood Type 5100 iodine PRODUCT CODE [id number] iodine PRODUCT CODE [id number] [facility] Unit ABO O iodine Unit Number [id number] [facility] Unit Number [id number] [facility] Unit RH Positive [facility] [employer] Unit Volume 300 mL [facility] [employer] Op Noteon 12-25-2023 Op Note Date of [...] The valve was passed through the 14 Luxembourger sapient E sheath into the descending thoracic [...] was decannulated transferred stable to recovery. Normal [facility] US Heart TransthoracicOrdere d By: Otto Fernandez on 12-25-2023 AV Area (Pre-TAVR) 0.3 cm2 [facility] Work Phone: AV Area by Peak Velocity 0.7 cm2 [facility] Work Phone: AV Area by VTI 0.7 cm2 [facility] Work Phone: AV Mean Gradient 14 mmHg [facility] Work Phone: AV Mean Gradient (Pre-TAVR) 59 mmHg [facility] Work Phone: AV Mean Velocity 1.7 m/s [facility] Work Phone: AV Peak Gradient 25 mmHg [facility] Work Phone: AV Peak Gradient (Pre-TAVR) 93 mmHg [facility] Work Phone: AV Peak Velocity 2.5 m/s [facility] Work Phone: AV Peak Velocity (Pre-TAVR) 4.8 m/s [facility] Work Phone: AV Velocity Ratio 0.20 [facility] Work Phone: AV VTI 60.2 cm [facility] Work Phone: RAMÓN/BSA Peak Velocity 0.3 cm2/m2 [facility] Work Phone: RAMÓN/BSA VTI 0.3 cm2/m2 [facility] Work Phone: Est. RA Pressure 3 mmHg [facility] Work Phone: LVOT Area 3.1 cm2 [facility] Work Phone: LVOT Cardiac Output 1.6 liter/mi nut e [facility] Work Phone: LVOT Diameter 2.0 cm [facility]alt [facility] Work Phone: LVOT Mean Gradient 1 mmHg [facility] Work Phone: LVOT Peak Gradient 1 mmHg [facility] Work Phone: LVOT Peak Velocity 0.5 m/s [facility] [employer] Work Phone: LVOT Stroke Volume Index 20.6 mL/m2 [facility] [employer] Work Phone: LVOT SV 42.7 ml [facility] Work Phone: LVOT VTI 13.6 cm [facility] Work Phone: LVOT:AV VTI Index 0.23 [facility]alth Work Phone: RVSP 51 mmHg [facility] Work Phone: TR Max Velocity 3.45 m/s [facility]a lth Work Phone: TR Peak Gradient 48 mmHg [facility]th Work Phone: [facility] Work Phone: Heart Transthoracicon Aortic Valve: [...] TAVR [facility] 1940 [id number] Exam Date/Time: 12/12/2023 10:40 Procedure: CT ANGIOGRAM [...] 12/22/2023 11:10 AM EDT --------ORIGINAL REPORT -------- [facility] Valve [facility] Cardiovascular CTA Indication: 83 year-old woman with severe aortic stenosis, being evaluated for transcatheter aortic valve implantation. Technique: Computed tomography of the heart, thoracoabdominal aorta, and iliofemoral system was performed using a [employer] One 320 detector scanner. Images were [...] VELEZ MEGGAN Reason For Exam: aortic stenosis [facility] Valve [facility] CTA Indication: 83 year-old woman with severe aortic stenosis, being evaluated for transcatheter aortic valve implantation. Technique: Computed tomography of the heart, thoracoabdominal aorta, and iliofemoral system was performed usi (more content not included)... Normal [facility] 36on 12-21-2023 36 Patient has stage 3 b- 4 CKD, stable compared to previous. OK to proceed. 36 BMP received, reviewed, WHIT to enter, Creat 1.9 GFR 27. Teofilo David CNP to review. 36 I called [facility] for BMP, left message w/ OP lab to fax results. [place] [id number] 36 I can not make any changes or cx the No Show b/c it's past. [place] [id number] 36 Name of caller: Brianne Contact phone number: [phone] Relationship to Patient: patient Provider: Mónica VOGEL Practice: [facility] Chief Complaint/Reason for Call: Patient had 3 [...] business hours to return their call: N/A [place] [id number] 36 Lab order faxed to [facility] [phone]/[address] 12-14-2023 36 Per Teofilo David DNP, will get BMP done on 12/19/23 in [place], RX for Prednisone pended. [place] to fax lab order to [facility], pt notified via phone and verbalizes understanding. [address] 12-13-2023 36 Pt returned my call, [...] message for pt to return call. Normal [facility] BLOOD TYPE AND SCREEN GELon 12-12-2023 ABO GROUPING O Normal [facility] Comment on above: Performed By: #### L [id number] ####[employer] Line Up Person: AIDE RUEDA ([id number])[facility] ([facility])[address] [place] [address] RH TYPE IN BLOOD Positive Normal [facility] Comment on above: Performed By: #### L [id number] ####Optical Effects Line Up Person: AIDE RUEDA ([id number])[facility] ([facility])[address] [place] [address] Blood type and Crossmatch pa justin (Bld)on 12-12-2023 ABO group Nom (Bld) O [facility] Blood group antibody screen GEL Ql Negative [facility] D Ag Ql (RBC) Positive [facility] CBC W Auto Differential pane l (Bld)on 12-12-2023 Basophils (Bld) [#/Vol] 0.1 10*3/uL 0.0 - 0.2 10*3/uL [facility] Basophils/100 WBC (Bld) 1.3 % 0.0 - 2.0 % [facility] Eosinophils (Bld) [#/Vol] 0.1 10*3/uL 0.0 - 0.5 10*3/uL [facility] Eosinophils/100 WBC (Bld) 2.0 % 0.0 - 6.0 % [facility] Erythrocyte distribution width (RBC) [Ratio] 13.1 % 11.5 - 15.0 % [facility] Hematocrit (Bld) [Volume fraction] 48.1 % High 35.0 - 47.0 % [facility] Hemoglobin (Bld) [Mass/Vol] 16.0 g/dL 11.7 - 16.0 g/dL [facility] Immature granulocytes (Bld) [#/Vol] 0.1 10*3/uL High NINF - 0.1 10*3/uL [facility] Immature granulocytes/100 WBC (Bld) 0.7 % 0.0 - 2.0 % [facility] Interpretation and review of laboratory results Abnormal [facility] Lymphocytes (Bld) [#/Vol] 1.6 10*3/uL 1.0 - 4.3 10*3/uL [facility] Lymphocytes/100 WBC (Bld) 23.0 % 15.0 - 45.0 % [facility] MCH (RBC) [Entitic mass] 31.7 pg 26.0 - 34.0 pg [facility] MCHC (RBC) [Mass/Vol] 33.3 % 30.5 - 36.0 % [facility] MCV (RBC) [Entitic vol] 95.2 fL 77.0 - 99.0 fL [facility] Monocytes (Bld) [#/Vol] 1.0 10*3/uL High 0.0 - 0.9 10*3/uL [facility] Monocytes/100 WBC (Bld) 14.2 % High 5.0 - 13.0 % [facility] Neutrophils (Bld) [#/Vol] 4.0 10*3/uL 1.8 - 7.5 10*3/uL [facility] Neutrophils/100 WBC (Bld) 58.8 % 38.0 - 82.0 % [facility] Nucleated RBC/100 WBC (Bld) [Ratio] 0.0 % [facility] Platelet mean volume (Bld) [Entitic vol] 13.0 fL High 9.0 - 12.7 fL [facility] Platelets (Bld) [#/Vol] 194 10*3/uL 140 - 440 10*3/uL [facility] RBC (Bld) [#/Vol] 5.05 10*6/uL 3.80 - 5.2 0 10*6/uL [facility] WBC (Bld) [#/Vol] 6.9 10*3/uL 3.6 - 10.7 10*3/uL [facility] CBC WITH AUTO DIFFERENTIALon 12-12-2023 Basophils (Bld) [#/Vol] 0.1 10*3/uL Normal 0.0-0.2 [facility] Comment on above: Performed By: #### L [id number] ####Optical Effects Line Up Person: AIDE RUEDA ([id number])[address] Basophils/100 WBC (Bld) 1.3 % Normal 0.0-2.0 [facility] Comment on above: Performed By: #### L [id number] ####Optical Effects Line Up Person: AIDE RUEDA ([id number])[facility])[address] [place] [address] Eosinophils (Bld) [#/Vol] 0.1 10*3/uL Normal 0.0-0.5 [facility] Comment on above: Performed By: #### L [id number] ####Optical Effects Line Up Person: AIDE RUEDA ([id number])[facility] ([facility])[address] [place] [address] Eosinophils/100 WBC (Bld) 2.0 % Normal 0.0-6.0 [facility] Comment on above: Performed By: #### L [id number] ####Optical Effects Line Up Person: AIDE RUEDA ([id number])[facility])[address] [place] [address] Erythrocyte distribution width (RBC) [Ratio] 13.1 % Normal 11.5-15.0 [facility] Comment on above: Performed By: #### L [id number] ####Optical Effects Line Up Person: AIDE RUEDA ([id number])[facility])[address] [place] [address] Hematocrit (Bld) [Volume fraction] 48.1 % High 35.0-47.0 [facility] Comment on above: Performed By: #### L [id number] ####Optical Effects Line Up Person: AIDE RUEDA ([id number])[facility])[address] [place] [address] Hemoglobin (Bld) [Mass/Vol] 16.0 g/dL Normal 11.7-16.0 [facility] Comment on above: Performed By: #### L [id number] ####Optical Effects Line Up Person: AIDE RUEDA ([id number])[facility])[address] [place] [address] IMMATURE GRANS % 0.7 % Normal 0.0-2.0 [facility] Comment on above: Performed By: #### L [id number] ####Optical Effects Line Up Person: AIDE RUEDA ([id number])[facility])[address] [place] [address] IMMATURE GRANS ABSOLUTE 0.1 10*3/uL High <0.1 [facility] Comment on above: Performed By: #### L [id number] ####Optical Effects Line Up Person: AIDE RUEDA ([id number])[facility])[address] [place] [address] Lymphocytes (Bld) [#/Vol] 1.6 10*3/uL Normal 1.0-4.3 [facility] Comment on above: Performed By: #### L [id number] ####Optical Effects Line Up Person: AIDE RUEDA ([id number])[address] Lymphocytes/100 WBC (Bld) 23.0 % Normal 15.0-45.0 [facility] Comment on above: Performed By: #### L [id number] ####Optical Effects Line Up Person: AIDE RUEDA ([id number])[facility])[address] [place] [address] MCH (RBC) [Entitic mass] 31.7 pg Normal 26.0-34.0 [facility] Comment on above: Performed By: #### L [id number] ####Optical Effects Line Up Person: AIDE RUEDA ([id number])[facility])[address] [place] [address] MCHC 33.3 % Normal 30.5-36.0 [facility] Comment on above: Performed By: #### L [id number] ####Optical Effects Line Up Person: AIDE RUEDA ([id number])[facility])[address] [place] [address] MCV (RBC) [Entitic vol] 95.2 fL Normal 77.0-99.0 [facility] Comment on above: Performed By: #### L [id number] ####Optical Effects Line Up Person: AIDE RUEDA ([id number])[facility])[address] [place] [address] Monocytes (Bld) [#/Vol] 1.0 10*3/uL High 0.0-0.9 [facility] Comment on above: Performed By: #### L [id number] ####Optical Effects Line Up Person: AIDE RUEDA ([id number])[facility] ([facility])[address] [place] [address] Monocytes/100 WBC (Bld) 14.2 % High 5.0-13.0 [facility] Comment on above: Performed By: #### L [id number] ####Optical Effects Line Up Person: AIDE RUEDA ([id number])[facility] ([facility])[address] [place] [address] NEUTROPHILS ABSOLUTE 4.0 10*3/uL Normal 1.8-7.5 [facility] Comment on above: Performed By: #### L [id number] ####Optical Effects Line Up Person: AIDE RUEDA ([id number])[facility] ([facility])[address] [place] [address] Neutrophils/100 WBC (Bld) 58.8 % Normal 38.0-82.0 [facility] Comment on above: Performed By: #### L [id number] ####Optical Effects Line Up Person: AIDE RUEDA ([id number])[facility] ([facility])[address] [place] [address] NRBC 0.0 /100 WBCs Normal 0.0-2.0 [facility] Comment on above: Performed By: #### L [id number] ####Optical Effects Line Up Person: AIDE RUEDA ([id number])[facility] ([facility])[address] [place] [address] Platelet mean volume (Bld) [Entitic vol] 13.0 fL High 9.0-12.7 [facility] Comment on above: Performed By: #### L [id number] ####Optical Effects Line Up Person: AIDE RUEDA ([id number])[facility] ([facility])[address] [place] [address] [place] Platelets (Bld) [#/Vol] 194 10*3/uL Normal 140-440 [facility] Comment on above: Performed By: #### L [id number] ####Optical Effects Line Up Person: AIDE RUEDA ([id number])[facility])[address] [place] [address] RBC (Bld) [#/Vol] 5.05 10*6/uL Normal 3.80-5.20 [facility] Comment on above: Performed By: #### L [id number] ####Optical Effects Line Up Person: AIDE RUEDA ([id number])[facility])[address] [place] [address] WBC (Bld) [#/Vol] 6.9 10*3/uL Normal 3.6-10.7 [facility] Comment on above: Performed By: #### L [id number] ####Optical Effects Line Up Person: AIDE RUEDA ([id number])[facility])[address] [place] [address] COMPREHENSIVE METABOLIC PANE [place] 12-12-2023 Albumin [Mass/Vol] 4.1 g/dL Normal 3.5-5.0 [facility] Comment on above: Performed By: #### L [id number], LAB17 ####Optical Effects Line Up Person: AIDE RUEDA ([id number])[facility])[address] [place] [address] ALP [Catalytic activity/Vol] 70 U/L Normal 38-126 [facility] Comment on above: Performed By: #### L [id number], LAB17 ####Optical Effects Line Up Person: IADE RUEDA ([id number])[facility])[address] [place] [address] ALT [Catalytic activity/Vol] 18 U/L Normal 0-34 [facility] Comment on above: Performed By: #### L [id number], LAB17 ####Optical Effects Line Up Person: AIDE RUEDA ([id number])[facility])[address] [place] [address] Anion gap [Moles/Vol] 11 mmol/L Normal 3-13 [facility] Comment on above: Performed By: #### L [id number], LAB17 ####Optical Effects Line Up Person: AIDE RUEDA ([id number])[facility] ([facility])[address] [place] [address] AST [Catalytic activity/Vol] 52 U/L High 15-46 [facility] Comment on above: Performed By: #### L [id number], LAB17 ####Optical Effects Line Up Person: AIDE RUEDA ([id number])[facility] ([facility])[address] [place] [address] Bilirubin [Mass/Vol] 1.0 mg/dL Normal 0.2-1.3 [facility] Comment on above: Performed By: #### L AB106, LAB17 ####Optical Effects Line Up Person: AIDE RUEDA ([id number])[facility] ([facility])[address] [place] [address] Calcium [Mass/Vol] 9.3 mg/dL Normal 8.4-10.4 [facility] Comment on above: Performed By: #### L AB106, LAB17 ####Optical Effects Line Up Person: AIDE RUEDA ([id number])[facility] ([facility])[address] [place] [address] [place] Chloride [Moles/Vol] 103 mmol/L Normal 98-107 [facility] Comment on above: Performed By: #### L AB106, LAB17 ####Optical Effects Line Up Person: AIDE RUEDA ([id number])[facility] ([facility])[address] [place] [address] [place] CO2 [Moles/Vol] 22 mmol/L Normal 22-30 [facility] Comment on above: Performed By: #### L AB106, LAB17 ####Optical Effects Line Up Person: AIDE RUEDA ([id number])[facility] ([facility])[address] [place] [address] [place] Creatinine [Mass/Vol] 1.95 mg/dL High 0.52-1.04 [facility] Comment on above: Performed By: #### L [id number], LAB17 ####Optical Effects Line Up Person: AIDE RUEDA ([id number])[facility])[address] [place] [address] [place] GLOMERULAR FILTRATION RATE ML/MIN/1.73 SQ M.PREDICTED 25.1 mL/min/1.73m*2 Low >60.0 [facility] Comment on above: Result Comment: Calc ulation based on the Chronic Kidney Disease Epidemiology Collaboration (CKD-EPI) equation refit without adjustment for race ORDER COMMENTS: Slightly Hemolyzed. Interpret Potassium, Alkaline Phosphatase, and AST with caution. Performed By: #### L AB106, LAB17 ####Optical Effects Line Up Person: AIDE RUEDA ([id number])[facility])[address] [place] [address] [place] Glucose [Mass/Vol] 107 mg/dL High 70-100 [facility] Comment on above: Performed By: #### L AB106, LAB17 ####Optical Effects Line Up Person: AIDE RUEDA ([id number])[facility])[address] [place] [address] [place] Potassium [Moles/Vol] 4.3 mmol/L Normal 3.5-5.1 [facility] Comment on above: Performed By: #### L AB106, LAB17 ####Optical Effects Line Up Person: AIDE RUEDA ([id number])[facility])[address] [place] [address] Protein [Mass/Vol] 7.9 g/dL Normal 6.3-8.2 [facility] Comment on above: Performed By: #### L AB106, LAB17 ####Optical Effects Line Up Person: AIDE RUEDA ([id number])[facility])[address] [place] [address] [place] Sodium [Moles/Vol] 136 mmol/L Normal 135-145 [facility] Comment on above: Performed By: #### L AB106, LAB17 ####Optical Effects Line Up Person: AIDE RUEDA ([id number])[facility])[address] [place] [address] [place] Urea nitrogen [Mass/Vol] 36 mg/dL High 7-17 [facility] Comment on above: Performed By: #### L AB106, LAB17 ####Optical Effects Line Up Person: AIDE RUEDA ([id number])[facility] ([address] Comprehensive metabolic 1998 panelon 12-12-2023 Albumin [Mass/Vol] 4.1 g/dL 3.5 - 5.0 g/dL [facility] ALP [Catalytic activity/Vol] 70 U/L 38 - 126 U/L [facility] ALT [Catalytic activity/Vol] 18 U/L 0 - 34 U/L [facility] Anion gap [Moles/Vol] 11 mmol/L 3 - 13 mmol/L [facility] AST [Catalytic activity/Vol] 52 U/L High 15 - 46 U/L [facility] Bilirubin [Mass/Vol] 1.0 mg/dL 0.2 - 1 .3 mg/dL [facility] Calcium [Mass/Vol] 9.3 mg/dL 8.4 - 10. 4 mg/dL [facility] Chloride [Moles/Vol] 103 mmol/L 98 - 10 7 mmol/L [facility] CO2 [Moles/Vol] 22 mmol/L 22 - 30 mmol/L [facility] Creatinine [Mass/Vol] 1.95 mg/dL High 0.52 - 1.04 mg/dL [facility] GFR/1.73 sq M.predicted (S/P/Bld) [Vol rate/Area] 25.1 mL/min Low - PINF [facility] Comment on above: Calculation based on the Chronic Kidney Disease Epidemiology Collaboration (CKD-EPI) equation refit without adjustment for race Glucose [Mass/Vol] 107 mg/dL High 70 - 100 mg/dL [facility] Interpretation and review of laboratory results Abnormal [facility] Potassium [Moles/Vol] 4.3 mmol/L 3.5 - 5.1 mmol/L [facility] Protein [Mass/Vol] 7.9 g/dL 6.3 - 8.2 g/dL [facility] Sodium [Moles/Vol] 136 mmol/L 135 - 145 mmol/L [facility] Urea nitrogen [Mass/Vol] 36 mg/dL High 7 - 17 mg/dL [facility] Slightly Hemolyzed. Interpret Potassium, Alkaline Phosphatase, and AST with caution. [facility] NT PRO BNPon 12-12-2023 Natriuretic peptide B (Bld) [Mass/Vol] 2261 pg/mL High <450 [facility] Comment on above: Performed By: #### L AB106, LAB17 ####Optical Effects Line Up Person: AIDE RUEDA ([id number])[facility] ([facility])[address] [place] [address] Natriuretic peptide B [Mass/ Vol]Ordered By: Bob Flores on 12-12-2023 Interpretation and review of laboratory results Abnormal [facility] Natriuretic peptide B (Bld) [Mass/Vol] 2261 pg/mL High NINF - 450 pg/mL [facility] Office Visiton 12-12-2023 Follow-up visit [id number] Brianne Call 1940 F Date Provider Department Center 12/12/2023 [id number]-JESMQJMÓNICA DAVID [facility] [address] No family history on file Level of Service:20285 [place] OFFICE/OUTPATIENT ESTABLISHED MOD MDM 30 MIN Reason for Visit and Comments: Cardiac Valve Problem [1334] - Patient seen in private OP procedure area for H + P update and education prior to scheduled TAVR Normal [facility] Progress Noteon 12-12-2023 Progress Note Pts symptoms of the reaction have all gone away. Pt states she feels back to normal. Normal [facility] Progress Note [facility] [place] [address] [facility] [address] Dept: [phone] Dept Visit type: Established : 1940 Reason [...] mm Hg. She underwent cardiac cath at [place] which showed non obstructive CAD. He kidney [...] mg 100 mg IntraVENous Once Mónica David, DYE WEIGHER HELPER - TRANSCRIBER sodium chloride 0.9 % bolus 500 mL [...] D deficiency Social (more content not included)... 12-08-2023 36 Approved [id number] 12/24-12/26/23 Calendars and Snapboard updated. 36 Messaged central scheduling through secure chat and CTA TAVR scheduled at [facility] at 11 am. 3612-07-2023 36 BJennifer Currie RT is out of office until Mon12/11/23. I spoke w/ [facility] Radiology Dept, I was sent to a "supervisor inspection room" , I left vm message re: add on CTA @ [facility] for 12/11. 36 I spoke w/ Katherin in CS, re: [facility] IV hydration, having difficulty with adding pt, she will speak w/ coworker and call me back. I spoke w/ Jennifer RN in POP, they have pt on their schedule. I spoke w/ patient, reviewed NPO 4 hrs prior, all questions answered. I also spoke w/ Rossana in CS, CTA needs moved to [facility]. 36on 12-06-2023 36 Hydration orders faxed,confirmed and scanned under Media Submitted auth request on [facility]. Pending # [id number] On all 3 calendars. [place] [address] I spoke w/ pt and dtr Shama [...] Capo Bear notified to schedule/PA/snap board/calendars. 36 Patient returned my call. No issues with Right radial cath site, cath performed by Dr. Garces in [place], I called to have images pushed to PACS and fax report w/ recent labs. Labs reviewed from [place], drawn 11/28/23 GFR 31 prior to cath. Teofilo Velez CNP notified to review and advise if IV hydration is needed. [place] [address] I spoke w/ Medina in Dr. Garces's office, confirmed LHC completed, she will push images to PACS and fax report & lab results. I left vm message for dtr Shama to review pt status, discuss next steps BMP/CTA. 36on 12-05-2023 36 Chart note done. I faxed it and the EKG tracings to [phone]/[place] [address] Dr[address] Huffman verbally notified. Normal [facility] 36 Medina from [place] [facility] called requesting last OV note but PB has not finished yet. (11/22/23) [phone] They need the most recent EKG wave forms as well. Normal [facility] 36on 11-28-2023 36 Spoke w/ Juana @ [facility], cath scheduled for 12/04/23 w/ Dr. Garces. Normal [facility] ECG 12 lead - CLINIC PERFORM EDon 11-25-2023 Atrial fibrillation -Old anteroseptal infarct. -Diffuse nonspecific T-abnormality. ABNORMAL [facility] 36on 11-22-2023 36 Patient seen in Heart valve Clinic yesterday. Dr. Huffman spoke w/ Dr. Garces @ [facility], agreed for R/LHC to be done in [place]. I spoke w/ Maggie HACKETT in Dr. Garces' office, asked her to call me back with cath date. Need to expedite TAVR due to pt symptoms, will need to coordinate CTA, pt does have CKD, last creat was 1.38 done 08/10 scanned in media. Normal [facility] Office Visiton 11-21-2023 Follow-up visit [id number] Brianne Call 1940 F Date Provider Department Center 11/21/2023 [id number]-XUZWHTHADDEUS MCKEON [facility] [address] No family history on file Level of Service:31185 [place] OFFICE/OUTPATIENT NEW MODERATE MDM 45 MINUTES Reason for Visit and Comments: Shortness of Breath [755476] Normal [facility] Follow-up visit [id number] Brianne Call 1940 F Date Provider Department Center 11/21/2023 [id number]-ALAOTVJUAN REED [facility] [address] No family history on file Level of Service:26138 [place] OFFICE/OUTPATIENT NEW HIGH MDM 60 MINUTES Reason for Visit and Comments: Cardiac Valve Problem [1334] Normal [facility] Follow-up visit [id number] Brianne Call 1940 F Date Provider Department Center 11/21/2023 15076-SSBZZTAUCCUHHARJEET RUIZ [facility] [address] No family history on file Level of Service:54286 [place] OFFICE/OUTPATIENT NEW HIGH MDM 60 MINUTES Reason for Visit and Comments: Cardiac Valve Problem [1334] Normal [facility] PATINSon 11-21-2023 [facility] DISCHARGE INSTRUCTIONS: Follow-up with [facility] (phone: [phone] fax: [phone]) as needed for memory testing. Please BEGIN [...] age and increased risk of falls. Normal [facility] Progress Noteon 11-21-[address] [facility] [address] [facility] [address] Dept: [phone] Dept Loc: [phone] Today's Visit Location: TAVR (transcather aortic valve replacement) Clinic [facility] [address] [place] [address] Visit type: Senior Health Assessment at TAVR [...] agree with cardiology plan as discussed with bioinformatics associate Dr. Huffman and CTS Dr. Reed on [...] Patient has already named her Power of Machine Compositor for Healthcare and Finances (Both are her daughter Shama López) I recommended patient follow-up with [facility] (phone: [phone] fax: [phone]) as needed for memory testing. 4. Drug-induced [...] Mean Gradient of 49. Dr. Garces in [place]. No aortic valve area mentioned. A fib [...] no=0 points)0 - patient [facility]. Rajiv (son) lives w pt [...] pandemic. Revi (more content not included)... Normal [facility] Progress Note HR 58 bpm today but no syncope, presyncope, falls Patient asymptomatic today Patient taking lopressor 12.5mg po bid - I encouraged patient to discuss with her cardiologists/PCP (primary care provider) regarding change of meds given her advanced age and increased risk of falls Normal [facility] Progress Note [facility]: Cardiothoracic Surgery Multidisciplinary Heart Valve Clinic Date: 11/21/23 Patient:Brianne Call 1940 83 y.o. female [id number] Subjective: HPI: Brianne Call 83 y.o. referred [...] reactive b (more content not included)... Normal [facility] Progress Note Chronic Patient with occasional word-finding difficulties I suspect either normal memory loss for aging or possibly MCI (Mild Cognitive Impairment) Patient has already named her Power of Machine Compositor for Healthcare and Finances (Both are her daughter Shama López) I recommended patient follow-up with [facility] (phone: [phone] fax: [phone]) as needed for memory testing. Normal [facility] Progress Note Chronic; Stable Asymptomatic May be nearing renal (kidney) dysfunction requiring reduced dose of eliquis (given Cr nearly 1.5 in past and patient's age >80 yo). May need eliquis 2.5mg po bid instead of 5mg po bid in future pending renal (kidney) function Normal [facility] Progress Note meds reviewed; appropriate May [...] missing or doubling up on meds Normal [facility] Progress Note S/p AV replacement by Dr. Nagy in 201209/22/23 Transthoracic Echo (TTE) noted severe aortic stenosis". Mean Gradient of 49. Dr. Garces in [place]. No aortic valve area mentioned. I agree with cardiology plan as discussed with bioinformatics associate Dr. Huffman and CTS Dr. Reed on same date regarding next steps for further workup/treatment of cardiac disease which likely includes heart cath +/- TAVR. On this date of evaluation, the patient has sufficient understanding of procedure(s) to consent to the procedure(s) being discussed and has adequate social support(s). Normal [facility] Progress Note [facility] [address] [facility] [address] Dept: [phone] Dept Visit type: New : 1940 Reason for Visit: Cardiac Valve Problem Assessment and Plan 1. LV dysfunction 2. Stenosis of prosthetic aortic valve, initial encounter - ECG 12 lead - CLINIC PERFORMED This is a very pleasant 83 y.o. 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 Will need a diagnostic cath first, [...] Effort: Pulmonary (more content not included)... Normal [facility] Progress Noteon 11-17-2023 Progress Note Brianne [...] thinner - Eliquis Transthoracic Echocardiogram 09/22/2023 Normal [facility] Absolute lymphocyte countOrd ered By: Scott Hull on 07-13-2023 Lymphocytes Auto (Unsp spec) [#/Vol] 1.36 10*3/uL 0.83-4.51 [facility] Automated lymphocyte count a s percentage of total leukocytesOrdered By: Scott Hull on 07-13-2023 Lymphocytes/100 WBC Auto (Unsp spec) 23.9 % 19-41 [facility] Basophil percentageOrdered B y: Scott Kurtis on 07-13-2023 Basophils/100 WBC (Bld) 1.4 % 0-1 [facility] Bilirubin [Mass/Vol] 1.30 mg/dL 0.20-1.00 [facility] Comment on above: For patients on eltr ombopag therapy, use of Dimension Gravity TBIL is not recommended. Chloride [Moles/Vol] 107 mmol/L 98-107 [facility] Cholesterol [Mass/Vol] 170 mg/dL <200 [facility] Comment on above: <200 mg/dL Desirable 200-240 mg/dL Borderline >240 mg/dL High Risk Eosinophils/100 WBC (Bld) 1.6 % 0-5 [facility] Glucose [Mass/Vol] 108 mg/dL 74-106 [facility] Comment on above: Fasting Glucose resu lt from 100 to 125 mg/dL suggests IMPAIRED HOMEOSTASIS per A.D.A. criteria. Hemoglobin (Bld) [Mass/Vol] 15.2 g/dL 12.0-15.0 [facility] Monocytes/100 WBC (Bld) 12.6 % 0-10 [facility] Neutrophils (Bld) [#/Vol] 3.4 10*3/uL 2.0-7.7 [facility] Neutrophils/100 WBC (Bld) 59.8 % 47-70 [facility] Potassium [Moles/Vol] 4.2 mmol/L 3.5-5.[address] [facility] Protein [Mass/Vol] 7.0 g/dL 6.4-8.2 [facility] Sodium [Moles/Vol] 138 mmol/L 136-145 [facility] Triglyceride [Mass/Vol] 186 mg/dL <199 [facility] Comment on above: The drugs N-Acetylcy steine and Metamizole may falsely depress this assay.Serum Triglycerides Reference Interval Normal <150 mg/dL Borderline high 150 - 199 mg/dL High 200 - 499 mg/dL Very High > or = 500 mg/dL WBC (Bld) [#/Vol] 5.7 10*3/uL 4.4-11.0 [facility] Determination of erythrocyte mean corpuscular volume (MCV)Ordered By: Scott Hull on 07-13-2023 MCV (RBC) [Entitic vol] 97.0 fL 81-99 [facility] Erythrocyte distribution wid th ratioOrdered By: [facility] on 07-[facility]23 Erythrocyte distribution width (RBC) [Ratio] 13.1 % 11.6-14.6 [facility] Erythrocyte distribution wid th standard deviationOrdered By: [facility] on 07-13-2023 Erythrocyte distribution width (RBC) [Entitic vol] 47.2 fL 35.1-43.9 [facility] Hematocrit Auto (Bld) [Volum e fraction]Ordered By: [facility] on 07-13-2023 Hematocrit (Bld) [Volume fraction] 46.0 % 37-47 [facility] Immature granulocytes/100 WB C Auto (Bld)Ordered By: [facility] on 07-13-2023 Immature granulocytes/100 WBC (Bld) 0.700 % 0.0-0.9 [facility] Comment on above: IG% - Immature Granu locytes (promyelocytes, myelocytes and metamyelocytes) > 1% indicates that a LEFT SHIFT is Present. Laboratory - Chemistry and C hemistry - challengeOrdered By: Scott Kurtis on 07-13-2023 Albumin/Globulin [Mass ratio] 0.9 {ratio} 0.9-2.4 [facility] ALP [Catalytic activity/Vol] 64 U/L 45-117 [facility] ALT [Catalytic activity/Vol] 19 U/L 13-56 [facility] Cholesterol in HDL [Mass/Vol] 37 mg/dL >40 [facility] Comment on above: The drugs N-Acetylcy steine and Metamizole may falsely depress this assay. Reference Range HDL <40 mg/dL Low HDL Cholesterol HDL >or= 60 mg/dL High HDL Cholesterol Cholesterol in LDL [Mass/Vol] 96 mg/dL 0-130 [facility] CO2 [Moles/Vol] 26.0 mmol/L 21.0-32.0 [facility] Globulin (S) [Mass/Vol] 3.6 g/dL 2.2-4.2 [facility] Urea nitrogen/Creatinine [Mass ratio] 15.4 mg/mg 10-20 [facility] Laboratory - Hematology and Cell countsOrdered By: Scott Hull on 07-13-2023 MCH (RBC) [Entitic mass] 32.1 pg 27.0-32.0 [facility] MCHC (RBC) [Mass/Vol] 33.0 g/dL 32-[address] [facility] Nucleated RBC/100 WBC (Bld) [Ratio] 0 % 0-5 [facility] Platelet mean volume (Bld) [Entitic vol] 12.7 fL 6.2-12.0 [facility] Platelets (Bld) [#/Vol] 190 10*3/uL 150-450 [facility] No Panel InformationOrdered By: Scott Hull on 07-13-2023 Estimated GFR (MDRD) Amer 50 mL/min >60 [facility] Comment on above: GFR Calc Estimated GFR (MDRD) Non-Af Amer 42 mL/min >60 [facility] Comment on above: Non- GFR Calc Vitamin D 25-Hydroxy 21.5 ng/mL [facility] Comment on above: Vitamin D 25(OH) Sta tus Range Deficiency <20 ng/mL (50nmol/L) Insufficiency 20 - 30 ng/mL (50 - 75 nmol/L) Sufficiency 30 - 100 ng/mL (75 - 250 nmol/L) Toxicity >100 ng/mL (>250 nmol/L) VLDL Cholesterol 37 mg/dL 5-40 [facility] RBC Auto (Bld) [#/Vol]Ordere d By: Scott Hull on 07-13-2023 RBC (Bld) [#/Vol] 4.74 10*6/uL 4.2-5.4 [facility] Serum or plasma calcium leah urement (mass/volume)Ordered By: Scott Hull on 07-13-2023 Calcium [Mass/Vol] 8.8 mg/dL 8.5-10.1 [facility] Serum or plasma creatinine m easurement (mass/volume)Ordered By: Scott Hull on 07-13-2023 Creatinine [Mass/Vol] 1.30 mg/dL 0.55-1.[address] [facility] Comment on above: The validity of the calculated GFR & GFRAA in patients over 70 years has not been determined. Clinical correlation is essential. Serum or plasma thyroid stim ulating hormone (TSH) measurement (units/volume)Ordered By: Scott Kurtis on 07-13-2023 TSH Qn 2.73 uIU/mL 0.358-3.74 [facility] Serum or plasma urea nitroge n measurement (mass/volume)Ordered By: Scott Hull on 07-13-2023 Urea nitrogen [Mass/Vol] 20 mg/dL 7-18 [facility] Serum or plasma uric acid me asurement (mass/volume)Ordered By: Scott Hull on 07-13-2023 Urate [Mass/Vol] 4.5 mg/dL 2.6-6.0 [facility] Comment on above: The drugs N-Acetylcy steine and Metamizole may falsely depress this assay. Thin prep Papanicolaou smear with manual screeningOrdered By: Scott Hull on 07-13-2023 Thin prep Papanicolaou smear with manual screening 3.4 g/dL 3.2-5.0 [facility] Thin prep Papanicolaou smear with manual screening 26 U/L 15-37 [facility] Thin prep Papanicolaou smear with manual screening 5 5-15 [facility] Absolute lymphocyte countOrd ered By: Scott Kurtis on 01-05-2023 Lymphocytes Auto (Unsp spec) [#/Vol] 2.04 10*3/uL 0.83-4.51 [facility] Basophil percentageOrdered B y: Scott Kurtis on 01-05-2023 Basophils/100 WBC (Bld) 1.1 % 0-1 [facility] Bilirubin [Mass/Vol] 0.90 mg/dL 0.20-1.00 [facility] Comment on above: For patients on eltr ombopag therapy, use of Dimension Gravity TBIL is not recommended. Chloride [Moles/Vol] 108 mmol/L 98-107 [facility] Eosinophils/100 WBC (Bld) 2.1 % 0-5 [facility] Glucose [Mass/Vol] 108 mg/dL 74-106 [facility] Comment on above: Fasting Glucose resu lt from 100 to 125 mg/dL suggests IMPAIRED HOMEOSTASIS per A.D.A. criteria. Neutrophils (Bld) [#/Vol] 3.9 10*3/uL 2.0-7.7 [facility] Neutrophils/100 WBC (Bld) 54.6 % 47-70 [facility] Potassium [Moles/Vol] 4.1 mmol/L 3.5-5.[address] [facility] Protein [Mass/Vol] 7.2 g/dL 6.4-8.2 [facility] Sodium [Moles/Vol] 140 mmol/L 136-145 [facility] WBC (Bld) [#/Vol] 7.1 10*3/uL 4.4-11.0 [facility] Blood erythrocytes count (nu mber/volume)Ordered By: Scott Hull on 01-05-2023 RBC (Bld) [#/Vol] 4.90 10*6/uL 4.2-5.4 [facility] Blood hemoglobin measurement (mass/volume)Ordered By: Scott Hull on 01-05-2023 Hemoglobin (Bld) [Mass/Vol] 15.7 g/dL 12.0-15.0 [facility] Blood lymphocytes/100 leukoc ytesOrdered By: Scott Hull on 01-05-2023 Lymphocytes/100 WBC (Bld) 28.6 % 19-41 [facility] Blood monocytes/100 leukocyt esOrdered By: Scott Hull on 01-05-2023 Monocytes/100 WBC (Bld) 13.0 % 0-10 [facility] Blood platelet mean volumeOr dered By: Scott Hull on 01-05-2023 Platelet mean volume (Bld) [Entitic vol] 12.0 fL 6.2-12.0 [facility] Determination of erythrocyte mean corpuscular volume (MCV)Ordered By: Scott Hull on 01-05-2023 MCV (RBC) [Entitic vol] 98.2 fL 81-99 [facility] Hematocrit Auto (Bld) [Volum e fraction]Ordered By: Scott Hull on 01-05-2023 Hematocrit (Bld) [Volume fraction] 48.1 % 37-47 [facility] Laboratory - Chemistry and C hemistry - challengeOrdered By: Scott Hull on 01-05-2023 ALP [Catalytic activity/Vol] 63 U/L 45-117 [facility] ALT [Catalytic activity/Vol] 22 U/L 13-56 [facility] CO2 [Moles/Vol] 23.0 mmol/L 21.0-32.0 [facility] Globulin (S) [Mass/Vol] 3.9 g/dL 2.2-4.2 [facility] Urea nitrogen/Creatinine [Mass ratio] 15.3 mg/mg 10-20 [facility] Laboratory - Hematology and Cell countsOrdered By: Scott Hull on 01-05-2023 Erythrocyte distribution width (RBC) [Entitic vol] 49.0 fL 35.1-43.9 [facility] Erythrocyte distribution width (RBC) [Ratio] 13.5 % 11.6-14.6 [facility] Immature granulocytes/100 WBC (Bld) 0.600 % 0.0-0.9 [facility] Comment on above: IG% - Immature Granu locytes (promyelocytes, myelocytes and metamyelocytes) > 1% indicates that a LEFT SHIFT is Present. MCH (RBC) [Entitic mass] 32.0 pg 27.0-32.0 [facility] Nucleated RBC/100 WBC (Bld) [Ratio] 0 % 0-5 [facility] MCHC Auto (RBC) [Mass/Vol]Or dered By: Scott Hull on 01-05-2023 MCHC (RBC) [Mass/Vol] 32.6 g/dL 32-[address] [facility] No Panel InformationOrdered By: Scott Hull on 01-05-2023 Estimated GFR (MDRD) Amer 56 mL/min >60 [facility] Comment on above: GFR Calc Estimated GFR (MDRD) Non-Af Amer 47 mL/min >60 [facility] Comment on above: Non- GFR Calc Thyroid Stimulating Hormone (TSH) 2.88 uIU/mL 0.358-3.74 [facility] Vitamin D 25-Hydroxy 16.6 ng/mL [facility] Comment on above: Vitamin D 25(OH) Sta tus Range Deficiency <20 ng/mL (50nmol/L) Insufficiency 20 - 30 ng/mL (50 - 75 nmol/L) Sufficiency 30 - 100 ng/mL (75 - 250 nmol/L) Toxicity >100 ng/mL (>250 nmol/L) Platelets bldOrdered By: Scott Hull on 01-05-2023 Platelets (Bld) [#/Vol] 227 10*3/uL 150-450 [facility] Serum or plasma albumin leah urement (mass/volume)Ordered By: Scott Hull on 01-05-2023 Albumin [Mass/Vol] 3.3 g/dL 3.2-5.0 [facility] Serum or plasma albumin/glob ulin mass ratioOrdered By: Scott Hull on 01-05-2023 Albumin/Globulin [Mass ratio] 0.8 {ratio} 0.9-2.4 [facility] Serum or plasma calcium leah urement (mass/volume)Ordered By: Scott Hull on 01-05-2023 Calcium [Mass/Vol] 8.7 mg/dL 8.5-10.1 [facility] Serum or plasma creatinine m easurement (mass/volume)Ordered By: Scott Hull on 01-05-2023 Creatinine [Mass/Vol] 1.18 mg/dL 0.55-1.[address] [facility] Comment on above: The validity of the calculated GFR & GFRAA in patients over 70 years has not been determined. Clinical correlation is essential. Serum or plasma urea nitroge n measurement (mass/volume)Ordered By: Scott Hull on 01-05-2023 Urea nitrogen [Mass/Vol] 18 mg/dL 7-18 [facility] Serum or plasma uric acid me asurement (mass/volume)Ordered By: Scott Hull on 01-05-2023 Urate [Mass/Vol] 4.3 mg/dL 2.6-6.0 [facility] Comment on above: The drugs N-Acetylcy steine and Metamizole may falsely depress this assay. Thin prep Papanicolaou smear with manual screeningOrdered By: Scott Hull on 01-05-2023 Thin prep Papanicolaou smear with manual screening 18 U/L 15-37 [facility] Thin prep Papanicolaou smear with manual screening 9 5-15 [facility] Absolute lymphocyte countOrd ered By: Dr. Hull on 06-30-2022 Lymphocytes Auto (Unsp spec) [#/Vol] 1.80 10*3/uL 0.83-4.51 [facility] Basophil percentageOrdered B y: Dr. Hull on 06-30-2022 Basophils/100 WBC (Bld) 1.3 % 0-1 [facility] Bilirubin [Mass/Vol] 0.80 mg/dL 0.20-1.00 [facility] Comment on above: For patients on eltr ombopag therapy, use of Dimension Gravity TBIL is not recommended. Chloride [Moles/Vol] 104 mmol/L 98-107 [facility] Eosinophils/100 WBC (Bld) 1.6 % 0-5 [facility] Glucose [Mass/Vol] 106 mg/dL 74-106 [facility] Comment on above: Fasting Glucose resu lt from 100 to 125 mg/dL suggests IMPAIRED HOMEOSTASIS per A.D.A. criteria. Neutrophils (Bld) [#/Vol] 5.8 10*3/uL 2.0-7.7 [facility] Neutrophils/100 WBC (Bld) 66.1 % 47-70 [facility] Potassium [Moles/Vol] 4.5 mmol/L 3.5-5.[address] [facility] Protein [Mass/Vol] 6.9 g/dL 6.4-8.2 [facility] Sodium [Moles/Vol] 136 mmol/L 136-145 [facility] WBC (Bld) [#/Vol] 8.8 10*3/uL 4.4-11.0 [facility] Blood erythrocytes count (nu mber/volume)Ordered By: Dr. Hull on 06-30-2022 RBC (Bld) [#/Vol] 4.84 10*6/uL 4.2-5.4 [facility] Blood hemoglobin measurement (mass/volume)Ordered By: Dr. Hull on 06-30-2022 Hemoglobin (Bld) [Mass/Vol] 15.7 g/dL 12.0-15.0 [facility] Blood lymphocytes/100 leukoc ytesOrdered By: Dr. Hull on 06-30-2022 Lymphocytes/100 WBC (Bld) 20.5 % 19-41 [facility] Blood monocytes/100 leukocyt esOrdered By: Dr. Hull on 06-30-2022 Monocytes/100 WBC (Bld) 9.6 % 0-10 [facility] Blood platelet mean volumeOr dered By: Dr. Hull on 06-30-2022 Platelet mean volume (Bld) [Entitic vol] 12.5 fL 6.2-12.0 [facility] Determination of erythrocyte mean corpuscular volume (MCV)Ordered By: Dr. Hull on 06-30-2022 MCV (RBC) [Entitic vol] 97.5 fL 81-99 [facility] Hematocrit Auto (Bld) [Volum e fraction]Ordered By: Dr. Hull on 06-30-2022 Hematocrit (Bld) [Volume fraction] 47.2 % 37-47 [facility] Laboratory - Chemistry and C hemistry - challengeOrdered By: Dr. Hull on 06-30-2022 ALP [Catalytic activity/Vol] 74 U/L 45-117 [facility] ALT [Catalytic activity/Vol] 21 U/L 13-56 [facility] CO2 [Moles/Vol] 23.0 mmol/L 21.0-32.0 [facility] Globulin (S) [Mass/Vol] 3.4 g/dL 2.2-4.2 [facility] Urea nitrogen/Creatinine [Mass ratio] 18.2 mg/mg 10-20 [facility] Laboratory - Hematology and Cell countsOrdered By: Dr. Hull on 06-30-2022 Erythrocyte distribution width (RBC) [Entitic vol] 47.4 fL 35.1-43.9 [facility] Erythrocyte distribution width (RBC) [Ratio] 13.2 % 11.6-14.6 [facility] Immature granulocytes/100 WBC (Bld) 0.900 % 0.0-0.9 [facility] Comment on above: IG% - Immature Granu locytes (promyelocytes, myelocytes and metamyelocytes) > 1% indicates that a LEFT SHIFT is Present. MCH (RBC) [Entitic mass] 32.4 pg 27.0-32.0 [facility] Nucleated RBC/100 WBC (Bld) [Ratio] 0 % 0-5 [facility] MCHC Auto (RBC) [Mass/Vol]Or dered By: Dr. Hull on 06-30-2022 MCHC (RBC) [Mass/Vol] 33.3 g/dL 32-[address] [facility] No Panel InformationOrdered By: Dr. Hull on 06-30-2022 Estimated GFR (MDRD) Amer 48 mL/min >60 [facility] Comment on above: GFR Calc Estimated GFR (MDRD) Non-Af Amer 39 mL/min >60 [facility] Comment on above: Non- GFR Calc Thyroid Stimulating Hormone (TSH) 3.20 uIU/mL 0.358-3.74 [facility] Vitamin D 25-Hydroxy 33.6 ng/mL [facility] Comment on above: Vitamin D 25(OH) Sta tus Range Deficiency <20 ng/mL (50nmol/L) Insufficiency 20 - 30 ng/mL (50 - 75 nmol/L) Sufficiency 30 - 100 ng/mL (75 - 250 nmol/L) Toxicity >100 ng/mL (>250 nmol/L) Platelets bldOrdered By: Dr. Hull on 06-30-2022 Platelets (Bld) [#/Vol] 252 10*3/uL 150-450 [facility] Serum or plasma albumin leah urement (mass/volume)Ordered By: Dr. Hull on 06-30-2022 Albumin [Mass/Vol] 3.5 g/dL 3.2-5.0 [facility] Serum or plasma albumin/glob ulin mass ratioOrdered By: Dr. Hull on 06-30-2022 Albumin/Globulin [Mass ratio] 1.0 {ratio} 0.9-2.4 [facility] Serum or plasma calcium leah urement (mass/volume)Ordered By: Dr. Hull on 06-30-2022 Calcium [Mass/Vol] 9.0 mg/dL 8.5-10.1 [facility] Serum or plasma creatinine m easurement (mass/volume)Ordered By: Dr. Hull on 06-30-2022 Creatinine [Mass/Vol] 1.37 mg/dL 0.55-1.[address] [facility] Comment on above: The validity of the calculated GFR & GFRAA in patients over 70 years has not been determined. Clinical correlation is essential. Serum or plasma urea nitroge n measurement (mass/volume)Ordered By: Dr. Hull on 06-30-2022 Urea nitrogen [Mass/Vol] 25 mg/dL 7-18 [facility] Serum or plasma uric acid me asurement (mass/volume)Ordered By: Dr. Hull on 06-30-2022 Urate [Mass/Vol] 3.9 mg/dL 2.6-6.0 [facility] Comment on above: The drugs N-Acetylcy steine and Metamizole may falsely depress this assay. Thin prep Papanicolaou smear with manual screeningOrdered By: Dr. Hull on 06-30-2022 Thin prep Papanicolaou smear with manual screening 25 U/L 15-37 [facility] Thin prep Papanicolaou smear with manual screening 9 5-15 [facility] Absolute lymphocyte counton 12-30-2021 Lymphocytes Auto (Unsp spec) [#/Vol] 1.81 10*3/uL 0.83-4.51 [facility] Work Phone: Basophil percentageon 2021 Basophils/100 WBC (Bld) 1.1 % 0-1 [facility] Work Phone: Bilirubin [Mass/Vol] 1.10 mg/dL 0.20-1.00 [facility] Work Phone: Comment on above: For patients on eltr ombopag therapy, use of Dimension Gravity TBIL is not recommended. Chloride [Moles/Vol] 108 mmol/L 98-107 [facility] Work Phone: Eosinophils/100 WBC (Bld) 1.4 % 0-5 [facility] Work Phone: Glucose [Mass/Vol] 104 mg/dL 74-106 [facility] Work Phone: Comment on above: Fasting Glucose resu lt from 100 to 125 mg/dL suggests IMPAIRED HOMEOSTASIS per A.D.A. criteria. Neutrophils (Bld) [#/Vol] 3.7 10*3/uL 2.0-7.7 [facility] Work Phone: Neutrophils/100 WBC (Bld) 55.7 % 47-70 [facility] Work Phone: Potassium [Moles/Vol] 4.1 mmol/L 3.5-5.[address] [facility] Work Phone: Protein [Mass/Vol] 7.3 g/dL 6.4-8.2 [facility] Work Phone: Sodium [Moles/Vol] 138 mmol/L 136-145 [facility] Work Phone: WBC (Bld) [#/Vol] 6.6 10*3/uL 4.4-11.0 [facility] Work Phone: Blood erythrocytes count (nu mber/volume)on 12-30-2021 RBC (Bld) [#/Vol] 4.82 10*6/uL 4.2-5.4 [facility] Work Phone: Blood hemoglobin measurement (mass/volume)on 12-30-2021 Hemoglobin (Bld) [Mass/Vol] 15.4 g/dL 12.0-15.0 [facility] Work Phone: Blood lymphocytes/100 leukoc yteson 12-30-2021 Lymphocytes/100 WBC (Bld) 27.5 % 19-41 [facility] Work Phone: Blood monocytes/100 leukocyt eson 12-30-2021 Monocytes/100 WBC (Bld) 13.7 % 0-10 [facility] Work Phone: Blood platelet mean volumeon 12-30-2021 Platelet mean volume (Bld) [Entitic vol] 12.6 fL 6.2-12.0 [facility] Work Phone: Determination of erythrocyte mean corpuscular volume (MCV)on 12-30-2021 MCV (RBC) [Entitic vol] 96.3 fL 81-99 [facility] Work Phone: Hematocrit Auto (Bld) [Volum e fraction]on 12-30-2021 Hematocrit (Bld) [Volume fraction] 46.4 % 37-47 [facility] Work Phone: Laboratory - Chemistry and C hemistry - challengeon 12-30-2021 ALP [Catalytic activity/Vol] 78 U/L 45-117 [facility] Work Phone: ALT [Catalytic activity/Vol] 23 U/L 13-56 [facility] Work Phone: CO2 [Moles/Vol] 23.0 mmol/L 21.0-32.0 [facility] Work Phone: Globulin (S) [Mass/Vol] 3.9 g/dL 2.2-4.2 [facility] Work Phone: Urea nitrogen/Creatinine [Mass ratio] 19.0 mg/mg 10-20 [facility] Work Phone: Laboratory - Hematology and Cell countson 12-30-2021 Erythrocyte distribution width (RBC) [Entitic vol] 45.9 fL 35.1-43.9 [facility] Work Phone: Erythrocyte distribution width (RBC) [Ratio] 13.0 % 11.6-14.6 [facility] Work Phone: Immature granulocytes/100 WBC (Bld) 0.600 % 0.0-0.9 [facility] Work Phone: Comment on above: IG% - Immature Granu locytes (promyelocytes, myelocytes and metamyelocytes) > 1% indicates that a LEFT SHIFT is Present. MCH (RBC) [Entitic mass] 32.0 pg 27.0-32.0 [facility] Work Phone: Nucleated RBC/100 WBC (Bld) [Ratio] 0 % 0-5 [facility] Work Phone: MCHC Auto (RBC) [Mass/Vol]on 12-30-2021 MCHC (RBC) [Mass/Vol] 33.2 g/dL 32-[address] [facility] Work Phone: No Panel Informationon 12-30 Estimated GFR (MDRD) Amer 58 mL/min >60 [facility] Work Phone: Comment on above: GFR Calc Estimated GFR (MDRD) Non-Af Amer 48 mL/min >60 [facility] Work Phone: Comment on above: Non- GFR Calc Thyroid Stimulating Hormone (TSH) 2.92 uIU/mL 0.358-3.74 [facility] Work Phone: Vitamin D 25-Hydroxy 18.4 ng/mL [facility] Work Phone: Comment on above: Vitamin D 25(OH) Sta tus Range Deficiency <20 ng/mL (50nmol/L) Insufficiency 20 - 30 ng/mL (50 - 75 nmol/L) Sufficiency 30 - 100 ng/mL (75 - 250 nmol/L) Toxicity >100 ng/mL (>250 nmol/L) Platelets bldon 12-30-2021 Platelets (Bld) [#/Vol] 222 10*3/uL 150-450 [facility] Work Phone: Serum or plasma albumin leah urement (mass/volume)on 12-30-2021 Albumin [Mass/Vol] 3.4 g/dL 3.2-5.0 [facility] Work Phone: Serum or plasma albumin/glob ulin mass ratioon 12-30-2021 Albumin/Globulin [Mass ratio] 0.9 {ratio} 0.9-2.4 [facility] Work Phone: Serum or plasma calcium leah urement (mass/volume)on 12-30-2021 Calcium [Mass/Vol] 9.1 mg/dL 8.5-10.1 [facility] Work Phone: Serum or plasma creatinine m easurement (mass/volume)on 12-30-2021 Creatinine [Mass/Vol] 1.16 mg/dL 0.55-1.[address] [facility] Work Phone: Comment on above: The validity of the calculated GFR & GFRAA in patients over 70 years has not been determined. Clinical correlation is essential. Serum or plasma urea nitroge n measurement (mass/volume)on 12-30-2021 Urea nitrogen [Mass/Vol] 22 mg/dL 7-18 [facility] Work Phone: Serum or plasma uric acid me asurement (mass/volume)on 12-30-2021 Urate [Mass/Vol] 4.1 mg/dL 2.6-6.0 [facility] Work Phone: Comment on above: The drugs N-Acetylcy steine and Metamizole may falsely depress this assay. Thin prep Papanicolaou smear with manual screeningon 12-30-2021 Thin prep Papanicolaou smear with manual screening 22 U/L 15-37 [facility] Work Phone: Thin prep Papanicolaou smear with manual screening 7 5-15 [facility] Work Phone: Absolute lymphocyte counton 06-30-2021 Lymphocytes Auto (Unsp spec) [#/Vol] 1.74 10*3/uL 0.83-4.51 [facility] Work Phone: Basophil percentageon 2021 Basophils/100 WBC (Bld) 1.4 % 0-1 [facility] Work Phone: Bilirubin [Mass/Vol] 0.90 mg/dL 0.20-1.00 [facility] Work Phone: Comment on above: For patients on eltr ombopag therapy, use of Dimension Gravity TBIL is not recommended. Chloride [Moles/Vol] 106 mmol/L 98-107 [facility] Work Phone: Eosinophils/100 WBC (Bld) 1.1 % 0-5 [facility] Work Phone: Glucose [Mass/Vol] 112 mg/dL 74-106 [facility] Work Phone: Comment on above: Fasting Glucose resu lt from 100 to 125 mg/dL suggests IMPAIRED HOMEOSTASIS per A.D.A. criteria. Neutrophils (Bld) [#/Vol] 3.8 10*3/uL 2.0-7.7 [facility] Work Phone: Neutrophils/100 WBC (Bld) 59.2 % 47-70 [facility] Work Phone: Potassium [Moles/Vol] 4.4 mmol/L 3.5-5.[address] [facility] Work Phone: Protein [Mass/Vol] 7.3 g/dL 6.4-8.2 [facility] Work Phone: Sodium [Moles/Vol] 137 mmol/L 136-145 [facility] Work Phone: WBC (Bld) [#/Vol] 6.4 10*3/uL 4.4-11.0 [facility] Work Phone: Blood erythrocytes count (nu mber/volume)on 06-30-2021 RBC (Bld) [#/Vol] 4.95 10*6/uL 4.2-5.4 [facility]: Blood hemoglobin measurement (mass/volume)on 06-30-2021 Hemoglobin (Bld) [Mass/Vol] 15.7 g/dL 12.0-15.0 [facility] Work Phone: Blood lymphocytes/100 leukoc yteson 06-30-2021 Lymphocytes/100 WBC (Bld) 27.3 % 19-41 [facility] Work Phone: Blood monocytes/100 leukocyt eson 06-30-2021 Monocytes/100 WBC (Bld) 10.7 % 0-10 [facility] Work Phone: Blood platelet mean volumeon 06-30-2021 Platelet mean volume (Bld) [Entitic vol] 12.7 fL 6.2-12.0 [facility] Work Phone: Determination of erythrocyte mean corpuscular volume (MCV)on 06-30-2021 MCV (RBC) [Entitic vol] 96.6 fL 81-99 [facility] Work Phone: Hematocrit Auto (Bld) [Volum e fraction]on 06-30-2021 Hematocrit (Bld) [Volume fraction] 47.8 % 37-47 [facility] Work Phone: Laboratory - Chemistry and C hemistry - challengeon 06-30-2021 ALP [Catalytic activity/Vol] 71 U/L 45-117 [facility] Work Phone: ALT [Catalytic activity/Vol] 26 U/L 13-56 [facility] Work Phone: CO2 [Moles/Vol] 25.0 mmol/L 21.0-32.0 [facility] Work Phone: Globulin (S) [Mass/Vol] 3.7 g/dL 2.2-4.2 [facility] Work Phone: Urea nitrogen/Creatinine [Mass ratio] 14.7 mg/mg 10-20 [facility] Work Phone: Laboratory - Hematology and Cell countson 06-30-2021 Erythrocyte distribution width (RBC) [Entitic vol] 46.4 fL 35.1-43.9 [facility] Work Phone: Erythrocyte distribution width (RBC) [Ratio] 13.1 % 11.6-14.6 [facility] Work Phone: Immature granulocytes/100 WBC (Bld) 0.300 % 0.0-0.9 [facility] Work Phone: Comment on above: IG% - Immature Granu locytes (promyelocytes, myelocytes and metamyelocytes) > 1% indicates that a LEFT SHIFT is Present. MCH (RBC) [Entitic mass] 31.7 pg 27.0-32.0 [facility] Work Phone: Nucleated RBC/100 WBC (Bld) [Ratio] 0 % 0-5 [facility] Work Phone: MCHC Auto (RBC) [Mass/Vol]on 06-30-2021 MCHC (RBC) [Mass/Vol] 32.8 g/dL 32-[address] [facility] Work Phone: No Panel Informationon 06-30 Estimated GFR (MDRD) Amer 51 mL/min >60 [facility] Work Phone: Comment on above: GFR Calc Estimated GFR (MDRD) Non-Af Amer 42 mL/min >60 [facility] Work Phone: Comment on above: Non- GFR Calc Thyroid Stimulating Hormone (TSH) 2.54 uIU/mL 0.358-3.74 [facility] Work Phone: Vitamin D 25-Hydroxy 24.2 ng/mL [facility] Work Phone: Comment on above: Vitamin D 25(OH) Sta tus Range Deficiency <20 ng/mL (50nmol/L) Insufficiency 20 - 30 ng/mL (50 - 75 nmol/L) Sufficiency 30 - 100 ng/mL (75 - 250 nmol/L) Toxicity >100 ng/mL (>250 nmol/L) Platelets bldon 06-30-2021 Platelets (Bld) [#/Vol] 242 10*3/uL 150-450 [facility] Work Phone: Serum or plasma albumin leah urement (mass/volume)on 06-30-2021 Albumin [Mass/Vol] 3.6 g/dL 3.2-5.0 [facility] Work Phone: Serum or plasma albumin/glob ulin mass ratioon 06-30-2021 Albumin/Globulin [Mass ratio] 1.0 {ratio} 0.9-2.4 [facility] Work Phone: Serum or plasma calcium leah urement (mass/volume)on 06-30-2021 Calcium [Mass/Vol] 9.2 mg/dL 8.5-10.1 [facility] Work Phone: Serum or plasma creatinine m easurement (mass/volume)on 06-30-2021 Creatinine [Mass/Vol] 1.29 mg/dL 0.55-1.[address] [facility] Work Phone: Comment on above: The validity of the calculated GFR & GFRAA in patients over 70 years has not been determined. Clinical correlation is essential. Serum or plasma urea nitroge n measurement (mass/volume)on 06-30-2021 Urea nitrogen [Mass/Vol] 19 mg/dL 7-18 [facility] Work Phone: Serum or plasma uric acid me asurement (mass/volume)on 06-30-2021 Urate [Mass/Vol] 4.3 mg/dL 2.6-6.0 [facility] Work Phone: Comment on above: The drugs N-Acetylcy steine and Metamizole may falsely depress this assay. Thin prep Papanicolaou smear with manual screeningon 06-30-2021 Thin prep Papanicolaou smear with manual screening 23 U/L 15-37 [facility] Work Phone: Thin prep Papanicolaou smear with manual screening 6 5-15 [facility] Work Phone: Office Visiton 01-04-2017 Dietary management education, guidance, and counseling (procedure) yes Invalid Interpretation Code [facility] Work Phone: Documentation of current medications (procedure) Done Invalid Interpretation Code [facility] Work Phone: Tobacco use CPHS Never smoker Invalid Interpretation Code [facility] Work Phone: Office Visit: [facility] 12-30-19 17 Documentation of current medications (procedure) Done Invalid Interpretation Code [facility] Work Phone: Fall risk assessment No Invalid Interpretation Code [facility] Work Phone: Protein mass conc Done Invalid Interpretation Code [facility] Work Phone: Office Visiton 09-28-2016 Dietary management education, guidance, and counseling (procedure) yes Invalid Interpretation Code [facility] Work Phone: Documentation of current medications (procedure) Done Invalid Interpretation Code [facility] Work Phone: Tobacco smoking status NHIS Never smoker Invalid Interpretation Code [facility] Work Phone: Tobacco use CPHS Never smoker Invalid Interpretation Code [facility] Work Phone: Office Visiton 06-29-2016 Dietary management education, guidance, and counseling (procedure) yes Invalid Interpretation Code [facility] Work Phone: Documentation of current medications (procedure) Done Invalid Interpretation Code [facility] Work Phone: Tobacco use CPHS Never smoker Invalid Interpretation Code 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 Work Phone: Lab Report: Lipid Profileon 11-12-2015 Cholesterol 194 mg/dL Invalid Interpretation Code [address] [facility] Work Phone: HDL Cholesterol 45 mg/dL Invalid Interpretation Code [facility] Work Phone: LDL Cholesterol 123 mg/dL Invalid Interpretation Code 0-[address] [facility] Work Phone: Triglyceride 132 mg/dL Invalid Interpretation Code [facility] Work Phone: very low density lipoproteins 26 mg/dL Invalid Interpretation Code 5-40 [facility] Work Phone: Lab Report: Liver Profileon 11-12-2015 Alanine aminotransferase (ALT) 19 U/L Invalid Interpretation Code 12-78 [facility] Work Phone: Albumin 3.6 g/dL Invalid Interpretation Code 3.4-5.[address] [facility] Work Phone: Alkaline phosphatase (ALP) 72 U/L Invalid Interpretation Code 50-136 [facility] Work Phone: ALP enzyme act/vol (Bld) 72 U/L Invalid Interpretation Code 50-136 [facility] Work Phone: Aspartate aminotransferase (AST) 17 U/L Invalid Interpretation Code 15-37 [facility] Work Phone: Bilirubin (direct) 0.17 mg/dL Invalid Interpretation Code 0.00-0.30 [facility] Work Phone: Bilirubin (total) 0.90 mg/dL Invalid Interpretation Code 0.20-1.[address] [facility] Work Phone: Globulin 3.7 g/dL High 2.3-3.[address] [facility] Work Phone: Protein 7.3 g/dL Invalid Interpretation Code 6.4-8.[address] [facility] Work Phone: Vital Signs Date Time Vital Sign Value Performing Clinician Angle euceda 01-04-2024 11:57-0400 Body height 157.5 cm Mónica David DYE WEIGHER HELPER - TRANSCRIBER Work Phone: [facility] 01-04-2024 11:57-0400 Body mass index (BMI) [Ratio] 43.09 kg/m2 Mónica David DYE WEIGHER HELPER - TRANSCRIBER Work Phone: [facility] 01-04-2024 11:57-0400 Body weight 106.87 kg Mónica David DYE WEIGHER HELPER - TRANSCRIBER Work Phone: [facility] 01-04-2024 11:57-0400 Diastolic blood pressure 64 mm[Hg] Mónica David DYE WEIGHER HELPER - TRANSCRIBER Work Phone: [facility] 01-04-2024 11:57-0400 Heart rate 68 /min Mónica David DYE WEIGHER HELPER - TRANSCRIBER Work Phone: [facility] 01-04-2024 11:57-0400 SaO2% (BldA) [Mass fraction] 97 % Mónica David DYE WEIGHER HELPER - TRANSCRIBER Work Phone: [facility] 01-04-2024 11:57-0400 Systolic blood pressure 112 mm[Hg] Mónica David DYE WEIGHER HELPER - TRANSCRIBER Work Phone: [facility] 12-26-2023 11:34-0400 Body temperature 96.49 [degF] Harjeet Huffman MD Work Phone: [facility] 12-26-2023 11:34-0400 Diastolic blood pressure 82 mm[Hg] Harjeet Huffman MD Work Phone: [facility] 12-26-2023 11:34-0400 Heart rate 87 /min Harjeet Huffman MD Work Phone: [facility] 12-26-2023 11:34-0400 Respiratory rate 22 /min Harjeet Huffman MD Work Phone: [facility] 12-26-2023 11:34-0400 SaO2% (BldA) [Mass fraction] 98 % Harjeet Huffman MD Work Phone: [facility] 12-26-2023 11:34-0400 Systolic blood pressure 148 mm[Hg] Harjeet Huffman MD Work Phone: [facility] 12-26-2023 09:27-0400 Body height 157.5 cm Harjeet Huffman MD Work Phone: [facility] 12-26-2023 09:27-0400 Body mass index (BMI) [Ratio] 45.91 kg/m2 Harjeet Huffman MD Work Phone: [facility] 12-26-2023 09:27-0400 Body weight 113.85 kg Harjeet Huffman MD Work Phone: [facility] 12-12-2023 13:57-0400 Diastolic blood pressure 76 mm[Hg] [facility] 12-12-2023 13:57-0400 Heart rate 73 /min [facility] 12-12-2023 13:57-0400 Respiratory rate 18 /min [facility] 12-12-2023 13:57-0400 Systolic blood pressure 128 mm[Hg] [facility] 12-12-2023 12:30-0400 Body temperature 96.8 [degF] Arlene Velez DYE WEIGHER HELPER - TRANSCRIBER Work Phone: [facility] 12-12-2023 12:30-0400 Diastolic blood pressure 64 mm[Hg] Arlene Velez DYE WEIGHER HELPER - TRANSCRIBER Work Phone: [facility] 12-12-2023 12:30-0400 Heart rate 50 /min Arlene Velez DYE WEIGHER HELPER - TRANSCRIBER Work Phone: [facility] 12-12-2023 12:30-0400 Respiratory rate 18 /min Arlene Velez DYE WEIGHER HELPER - TRANSCRIBER Work Phone: [facility] 12-12-2023 12:30-0400 Systolic blood pressure 113 mm[Hg] Arlene Velez DYE WEIGHER HELPER - TRANSCRIBER Work Phone: [facility] 12-12-2023 07:34-0400 Body temperature 97 [degF] Ach Pop [facility] 11-21-2023 14:17-0400 Body height 157.5 cm Juan Connorung DO Work Phone: [facility] 11-21-2023 14:17-0400 Body mass index (BMI) [Ratio] 43.15 kg/m2 Juan Connorung DO Work Phone: [facility] 11-21-2023 14:17-0400 Body weight 107 kg Juan Connorung DO Work Phone: [facility] 11-21-2023 14:17-0400 Diastolic blood pressure 82 mm[Hg] Juan Connorung DO Work Phone: [facility] 11-21-2023 14:17-0400 Heart rate 58 /min Juan Reed DO Work Phone: [facility] 11-21-2023 14:17-0400 SaO2% (BldA) [Mass fraction] 98 % Juan Reed DO Work Phone: [facility] 11-21-2023 14:17-0400 Systolic blood pressure 136 mm[Hg] Juan Reed DO Work Phone: [facility] 11-21-2023 14:01-0400 Body height 157.5 cm Harjeet Huffman MD Work Phone: [facility] 11-21-2023 14:01-0400 Body mass index (BMI) [Ratio] 43.31 kg/m2 Harjeet Huffman MD Work Phone: [facility] 11-21-2023 14:01-0400 Body weight 107.41 kg Harjeet Huffman MD Work Phone: [facility] 11-21-2023 14:01-0400 Diastolic blood pressure 82 mm[Hg] Harjeet Huffman MD Work Phone: [facility] 11-21-2023 14:01-0400 Heart rate 58 /min Harjeet Huffman MD Work Phone: [facility] 11-21-2023 14:01-0400 SaO2% (BldA) [Mass fraction] 98 % Harjeet Huffman MD Work Phone: [facility] 11-21-2023 14:01-0400 Systolic blood pressure 136 mm[Hg] Harjeet Huffman MD Work Phone: [facility] 12-29-2016 10:24-0400 BMI (Body Mass Index) 38.01 [...] Phone: 12-29-2016 10:24-0400 Respiratory Rate 20 /min [facility] Work Phone: 12-29-2016 10:24-0400 Weight 98.88 kg [facility] Work Phone: 05-26-2016 14:01-0500 BMI (Body Mass Index) 37.83 kg/m2 [facility] Work Phone: 05-26-2016 14:01-0500 BP Diastolic 76 mm[Hg] [facility] Work Phone: 05-26-2016 14:01-0500 BP Systolic 144 mm[Hg] [facility] Work Phone: 05-26-2016 14:01-0500 Height 161.29 [facility] Work Phone: 05-26-2016 14:01-0500 Pulse (Heart Rate) 76 /min [facility] Work Phone: 05-26-2016 14:01-0500 Respiratory Rate 18 /min [facility] Work Phone: 05-26-2016 14:01-0500 [facility] 98.43 [facility] Work Phone: 11-10-2015 14:49-0400 BSA (Body Surface Area) 2.[address] [facility] Work Phone: Encounters Encounter Date Encounter Type Care Provider Facility Start: 01-29-2025 ambulatory Efewongbe Oleghe OLS Fa cility:[facility] Start: 01-14-2025 ambulatory Efewongbe Oleghe OLS Fa cility:[facility] Start: 01-13-2025 End: 01-13-2025 ambulatory [place] Man [place] [place]: 01-06-2025 ambulatory Efewongbe Oleghe OLS Fa cility:[facility] Start: 12-30-2024 ambulatory Efewongbe Oleghe OLS Fa cility:[facility] Start: 12-17-2024 [facility] Start: 12-17-2024 End: 12-17-2024 ambulatory Efewongbe Oleghe OLS Facility:[facility] Start: 12-04-2024 ambulatory Efewongbe Oleghe OLS Fa cility:[facility] Start: 12-04-2024 [facility] Start: 11-26-2024 End: 11-27-2024 ambulatory Efewongbe Kandie [place] Start: 11-19-2024 ambulatory Efewkayleigh Kandie OLS Fa cility:[facility] Start: 11-19-2024 Registered Referred Joe Sanchez MD [facility] Start: 10-23-2024 End: 10-23-[address] Scott Hull MD Work Phone: [facility] Start: 10-23-2024 End: 10-23-2024 Patient encounter procedure Sara MONTEMAYOR -[facility] [place][Note 2] Work Phone: Start: 10-22-2024 Registered Referred Joe Sanchez MD [facility] Start: 10-22-2024 End: 10-22-2024 ambulatory Efewkayleigh Chaue OLS Facility:[facility] Start: 10-09-2024 ambulatory Efewkayleigh Chaue OLS Fa cility:[facility] Start: 10-09-2024 [facility] Start: 10-07-2024 End: 10-07-[address] Scott Hull MD Work Phone: [facility] Start: 10-07-2024 End: 10-07-2024 [facility] Start: 10-07-2024 [facility] Start: 10-07-2024 End: 10-07-2024 ambulatory Efclaudiokayleigh Morrisawaise OLS Facility:[facility] Start: 10-01-2024 End: 10-01-[address] Scott Hull MD Work Phone: [facility] Start: 10-01-2024 End: 10-01-[address] Joe Sanchez MD [facility] Work Phone: Start: 09-24-2024 ambulatory Scott Hull Facility:[facility] Start: 09-24-2024 [facility] Start: 09-02-2024 End: 09-02-[address] Scott Hull MD Work Phone: [facility] Start: 09-02-2024 End: 09-02-2024 Patient encounter procedure Sara [facility] Work Phone: Start: 08-27-2024 ambulatory Scott Hull Facility:[facility] Start: 08-27-2024 Registered Referred Joe Sanchez MD [facility] Start: 08-20-2024 End: 08-20-[address] Scott Hull MD Work Phone: [facility] Start: 08-20-2024 End: 08-20-2024 Patient encounter procedure Sara Irizarry [facility] Work Phone: Start: 08-14-2024 ambulatory Scott Hull Facility:[facility] Start: 08-14-2024 Registered Referred Joe Sanchez MD [facility] Start: 07-30-2024 End: 07-30-[address] Scott Hull MD Work Phone: [facility] Work Phone: Start: 07-30-2024 End: 07-30-2024 [facility] Start: 07-30-2024 End: 07-30-2024 ambulatory Joe PORTILLO Facility:[facility] Start: 07-23-2024 End: 07-23-[address] Scott Hull MD Work Phone: [facility] Start: 07-23-2024 End: 07-23-[address] Joe Sanchez MD [facility] Work Phone: Start: 07-15-2024 End: 07-15-[address] Scott Hull MD Work Phone: [facility] Work Phone: Start: 07-15-2024 End: 07-15-2024 [facility] Start: 07-15-2024 [facility] Start: 07-15-2024 End: 07-15-2024 ambulatory Joe Sanchez OLS Facility:[facility] Start: 07-02-2024 End: 07-02-[address] Scott Hull MD Work Phone: [facility] Work Phone: Start: 07-02-2024 End: 07-02-2024 [facility] Start: 07-02-2024 End: 07-02-2024 ambulatory Joe PORTILLO Facility:[facility] Start: 06-18-2024 End: 06-18-2024 [facility] Start: 06-18-2024 [facility] Start: 06-18-2024 End: 06-18-2024 ambulatory Scott Hull Facility:[facility] Start: 06-04-2024 End: 06-04-[address] Scott Hull MD Work Phone: [facility] Work Phone: Start: 06-04-2024 End: 06-04-2024 [facility] Start: 06-04-2024 End: 06-04-2024 ambulatory Scott Hull Facility:[facility] Start: 05-28-2024 End: 05-28-2024 ambulatory Joe Sanchez [place] [place] Start: 05-28-2024 End: 05-28-[address] Joe Sanchez MD [facility] Work Phone: Start: 05-16-2024 End: 05-16-2024 ambulatory Scott Chi Kurtis Facility:[facility] Start: 05-16-2024 End: 05-16-2024 Patient encounter procedure Eriberto VILLALOBOS -[facility] [place][Note 2] Work Phone: Start: 05-07-2024 ambulatory Scott Chi Kurtis Facility:[facility] Start: 05-07-2024 [facility] Start: 04-22-2024 ambulatory Scott Chi Kurtis Facility:[facility] Start: 04-22-2024 [facility] Start: 04-18-2024 ambulatory Mónica VILLALOBOS Facility:[facility] Start: 04-09-2024 End: 04-09-2024 [facility] Start: 04-09-2024 End: 04-09-2024 ambulatory Joe PORTILLO Facility:[facility] Start: 04-02-2024 End: 04-02-2024 ambulatory Scott Chi Kurtis [place] [place] Start: 04-02-2024 End: 04-02-[address] Joe Sanchez MD -[facility] [place][Note 2] Work Phone: Start: 03-15-2024 End: 03-15-2024 ambulatory Sara Irizarry NP Facility:[facility] Start: 03-15-2024 End: 03-15-2024 Patient encounter procedure Sara Irizarry PUMP AND BLOWER OPERATOR- -[facility] [place][Note 2] Work Phone: Start: 03-15-2024 ambulatory Joe Sanchez OLS Fa cility:[facility] Start: 03-15-2024 [facility] Start: 03-08-2024 ambulatory Joe Sanchez OLS Fa cility:[facility] Start: 03-08-2024 [facility] Start: 03-01-2024 End: 03-01-2024 [facility] Start: 03-01-2024 End: 03-01-2024 ambulatory Efewongbe Oleghe OLS Facility:[facility] Start: 02-27-2024 End: 02-27-2024 [facility] Start: 02-27-2024 End: 02-27-2024 Patient encounter procedure Sara MONTEMAYOR -[facility] [place][Note 2] Work Phone: Start: 02-23-2024 End: 02-23-2024 ambulatory Efewongbe Oleghe OLS Facility:[facility] Start: 02-16-2024 ambulatory Efewongbe Oleghe OLS Fa cility:[facility] Start: 02-09-2024 ambulatory Efewongbe Oleghe OLS Fa cility:[facility] Start: 02-07-2024 End: 02-07-2024 ambulatory [facility] Facility:[facility] Start: 02-02-2024 ambulatory Efewongbe Oleghe OLS Fa cility:[facility] Start: 01-04-2024 End: 02-22-2024 Telephone encounter Mónica Maldonado CNP Work Phone: [facility] Comment on above: Orders Start: 01-04-2024 End: 01-04-2024 Office outpatient visit 25 minutes Mónica David APRN - TRANSCRIBER Work Phone: [facility] Comment on above: Chronic atrial fibri llation (HCC) (Primary Dx); Severe aortic stenosis; Stage 3a chronic kidney disease (HCC); Left heart failure (HCC) Start: 01-04-2024 End: 01-04-2024 ambulatory MÓNICA DAVID [facility] Start: 12-25-2023 End: 12-26-2023 Evaluation and management of inpatient Harjeet Huffman MD Work Phone: [facility] Cardiac Thoracic Vascular Intensive Care Unit CTV ICU T1 Comment on above: Severe aortic stenos is (Primary Dx); Nonrheumatic aortic valve stenosis Start: 12-22-2023 End: 12-22-2023 ambulatory Arlene Velez DYE WEIGHER HELPER - TRANSCRIBER Work Phone: [facility] Comment on above: Severe aortic stenos is (Primary Dx) Start: 12-12-2023 End: 12-12-2023 Office outpatient visit 25 minutes Mónica David DYE WEIGHER HELPER - [facility] Work Phone: [facility] Erica Monzon Comment on above: Chronic atrial fibri llation (HCC) (Primary Dx); Nonrheumatic aortic valve stenosis; Adverse effect of contrast media, initial encounter Start: 12-12-2023 End: 12-12-2023 Subsequent hospital visit by physician Arlene Velez APRN - TRANSCRIBER Work Phone: [facility] CT Imaging Comment on above: Nonrheumatic aortic valve stenosis Start: 12-12-2023 End: 12-12-2023 ambulatory Harjeet Huffman MD Work Phone: [facility] POP Comment on above: Renal failure, unspe cified chronicity; Stenosis of prosthetic aortic valve, initial encounter Start: 11-21-2023 End: 11-21-2023 Office outpatient new 45 minutes Thaddeus Mckeon MD Work Phone: [facility] Comment on above: Nonrheumatic aortic valve [...] Start: 11-21-2023 End: 11-21-2023 ambulatory THADDEUS MCKEON [facility] Start: 07-13-2023 End: 07-13-2023 ambulatory [facility] Work Phone: Start: 07-13-2023 End: 07-13-2023 Patient encounter procedure [facility]-Labor[facility] Work Phone: Start: 01-05-2023 End: 01-05-2023 ambulatory [facility] Work Phone: Start: 01-05-2023 End: 01-05-2023 Patient encounter procedure [facility]-Labor[facility], Phy Office 3rd Flr Start: 06-30-2022 End: 06-30-2022 ambulatory [facility] Work Phone: Start: 06-30-2022 End: 06-30-2022 Patient encounter procedure [facility]-Laboratory, Phy Office 3rd Flr Start: 12-30-2021 End: 12-30-2021 ambulatory [facility] Work Phone: Start: 12-30-2021 End: 12-30-2021 Patient encounter procedure [facility]-Labor[facility], Phy Office 3rd Flr Start: 06-30-2021 End: 06-30-2021 Patient encounter procedure [facility], y Office 3rd Flr Start: 09-11-2017 Patient encounter status [facility] Procedures Date Procedure Procedure Detail [...] or wo fol wcon,Doppler Mónica David DYE WEIGHER HELPER - TRANSCRIBER Work Phone: Start: 12-26-2023 Ecg routine ecg w/le ast 12 lds trcg only w/o i&r Mónica David DYE WEIGHER HELPER - TRANSCRIBER Work Phone: Start: 12-26-2023 Basic metabolic pane l calcium total Mónica David DYE WEIGHER HELPER - TRANSCRIBER Work Phone: Start: 12-25-2023 Echo transthorc r-t 2d w/wo m-mode rec f-up/lmtd Harjeet Huffman MD Work Phone: Start: 12-25-2023 Basic metabolic pane l calcium total Mónica Radford Sandeep DYE WEIGHER HELPER - TRANSCRIBER Work Phone: Start: 12-25-2023 Ecg routine ecg w/le ast 12 lds trcg only w/o i&r Mónica Radford Sandeep DYE WEIGHER HELPER - TRANSCRIBER Work Phone: Start: 12-25-2023 OXYGEN THERAPY Mónica Radford Sandeep DYE WEIGHER HELPER - TRANSCRIBER Work Phone: Start: 12-25-2023 Cardiac catheterizat ion study Harjeet Huffman MD Work Phone: Start: 12-25-2023 Antibody screen HARJEET DOWNING Comment on above: Performed By: #### L [id number] #### Optical Effects Line Up Person: AIDE RUEDA ([id number]) [facility] ([facility]) [address] [place] [address] Start: 12-25-2023 End: 12-25-2023 Blood typing serologic rh (d) Tien Cornell MD Work Phone: Start: 12-25-2023 End: 12-25-2023 TRANSCATHETER AORTIC VALVE REPLACEMENT (TAVR) - OR Tien Cornell MD Work Phone: Start: 12-12-2023 Antibody screen HARJEET DOWNING Comment on above: Performed By: #### L [id number] ####Optical Effects Line Up Person: AIDE RUEDA ([id number])[facility] ([facility])[address] [place] [address] Start: 12-12-2023 Blood typing serologic abo Harjeet Huffman MD Work Phone: Start: 12-12-2023 Comprehensive metabo lic panel aHrjeet Huffman MD Work Phone: Start: 11-25-2023 Ecg [...] DTaP/Tdap/Td Vaccines (2 - Td or Tdap) [facility] Start: 12-25-2024 Creatinine measurement Creatinine Level [facility] Start: 12-25-2024 Echocardiography Echocardiogram [facility] Start: 12-25-2024 Potassium measurement Potassium Level [facility] Start: 03-20-2024 Medicare Advantage Annual Wellness Visit Medicare Advantage Annual Wellness Visit [facility] Start: 01-04-2024 End: 01-04-2024 Patient encounter procedure 01/04/2024 12:00 PM EDT Office Visit [facility] [address] [place] [id number] Mónica David, DYE WEIGHER HELPER - TRANSCRIBER [address] [place] [address] [facility] Start: 12-25-2023 End: 12-25-2023 Admission to same day surgery center 12/25/2023 9:15 AM EDT - 12/25/2023 11:00 AM EDT Surgery [facility] MA[facility] OR [address] [facility] [place] [address] Harjeet Huffman MD [address] [place] [address] TRANSCATHETER AORTIC VALVE REPLACEMENT, TRANSTHORACIC ECHOCARDIOGRAM [facility] Comment on above: TRANSCATHETER AORTIC VALVE REPLACEMENT, TRANSTHORACIC ECHOCARDIOGRAM Start: 12-25-2023 End: 12-25-2023 Anesthesia consultation 12/25/2023 9:15 AM EDT Anesthesia Event [facility] OR [address] [facility] [place] [address] Carolina Waldron, DYE WEIGHER HELPER - TRANSCRIBER [facility] [place] [address] [place] [address] [facility] OR Start: 12-25-2023 Subsequent hospital visit by physician 12/25/2023 9:15 AM EDT Hospital Encounter [facility] OR [address] [place] [address] Harjeet Huffman MD [address] [address] [facility] [address] [place] [address] Nonrheumatic aortic valve stenosis [facility] Comment on above: Nonrheumatic aortic valve stenosis Start: 12-25-2023 End: 12-25-2023 TRANSCATHETER AORTIC VALVE REPLACEMENT (TAVR) - OR TRANSCATHETER AORTIC VALVE REPLACEMENT (TAVR) - OR Nonrheumatic aortic valve stenosis 12/25/2023 9:15 AM EDT [facility] Start: 11-19-2023 COVID-19 Vaccine ( season) COVID-19 Vaccine ( season) [facility] Start: 11-19-2023 COVID-19 Vaccine ( season) COVID-19 Vaccine ( season) [facility] Start: 11-19-2023 Influenza vaccination Influenza Vaccine (#1) [facility] Start: 03-20-2023 Medicare Advantage Annual Wellness Visit Medicare Advantage Annual Wellness Visit [facility] Start: 11-09-2020 Lipid panel Lipid Panel NPR [facility] Start: 07-10-2017 End: 07-10-2017 Appointment Appointment [facility] Work Phone: Start: 01-05-2017 End: 01-09-2017 Nuclear stress test -[facility] Nuclear stress test -[facility] Work Phone: Start: 01-04-2017 End: 01-04-2017 Appointment Appointment [facility] Work Phone: Start: 01-03-2017 End: 01-05-2017 Nuclear stress test -exercise Nuclear stress test -exercise [facility] Work Phone: Start: 12-29-2016 End: 12-29-2016 ERIC REYES [facility] Work Phone: Start: 12-29-2016 End: 12-29-2016 Echocardiography Echocardiogram (complete) [facility] Work Phone: Start: 12-29-2016 End: 12-29-2016 Follow Up Appt 6 months Follow Up Appt 6 months [facility] Work Phone: Start: 12-29-2016 End: 12-29-2016 Nuclear stress test -exercise Nuclear stress test -exercise [facility] Work Phone: Start: 12-29-2016 End: 12-29-2016 Appointment Appointment [facility] Work Phone: Start: 12-15-2016 End: 12-15-2016 Appointment Appointment [facility] Work Phone: Start: 11-11-2016 End: 11-18-2015 *Hepatic Function Panel *Hepatic Function Panel [facility] Work Phone: Start: 11-11-2016 End: 11-18-2015 Lipid panel [AGGREGATE] *Lipid Profile CC PCP [facility] Work Phone: Start: 11-11-2016 End: 11-18-2015 *Hepatic Function Panel *Hepatic Function Panel [facility] Work Phone: Start: 11-11-2016 End: 11-18-2015 Lipid panel [AGGREGATE] *Lipid Profile CC PCP [facility] Work Phone: Start: 09-28-2016 End: 09-28-2016 Appointment Appointment [facility] Work Phone: Start: 05-26-2016 End: 05-26-2016 ERIC REYES [facility] Work Phone: Start: 05-26-2016 End: 05-26-2016 Follow Up Appt 6 months Follow Up Appt 6 months [facility] Work Phone: Start: 05-26-2016 End: 05-26-2016 ERIC REYES [facility] Work Phone: Start: 05-26-2016 End: 05-26-2016 Follow Up Appt 6 months Follow Up Appt 6 months [facility] Work Phone: Start: 11-10-2015 End: 11-12-2015 *Hepatic Function Panel *Hepatic Function Panel [facility] Work Phone: Start: 11-10-2015 End: 05-20-2016 ERIC REYES [facility] Work Phone: Start: 11-10-2015 End: 11-10-2015 Echocardiography Echocardiogram (complete) [facility] Work Phone: Start: 11-10-2015 End: 11-10-2015 Follow Up Appt 6 months Follow Up Appt 6 months [facility] Work Phone: Start: 11-10-2015 End: 11-12-2015 Lipid panel [AGGREGATE] *Lipid Profile CC PCP [facility] Work Phone: Start: 11-10-2015 End: 11-12-2015 *Hepatic Function Panel *Hepatic Function Panel [facility] Work Phone: Start: 11-10-2015 End: 05-20-2016 ERIC REYES [facility] Work Phone: Start: 11-10-2015 End: 11-10-2015 Echocardiography Echocardiogram (complete) [facility] Work Phone: Start: 11-10-2015 End: 11-10-2015 Follow Up Appt 6 months Follow Up Appt 6 months [facility] Work Phone: Start: 11-10-2015 End: 11-12-2015 Lipid panel [AGGREGATE] *Lipid Profile CC PCP [facility] Work Phone: Start: 1952 Depression Screening Depression Screening [facility] Start: 1940 Lipid panel Lipid Panel [facility] Start: 1940 Screening for osteoporosis Bone Density Scan [facility] End: 12-12-2023 CT Chest WO and CT angiogram Coronary arteries W contrast IV [facility] Work Phone: Comment on above: Once for 1 Occurrences starting 12/12/19 until 12/12/2023 ECG 12 lead - CLINIC PERFORMED ECG 12 lead - CLINIC PERFORMED CV ECG Routine Severe aortic stenosis 01/04/2024 11:54 AM EDT [facility] Work [facility]: Patient Education [facility] Work Phone: Immunizations Immunization Date Immunization Notes Care Provider Fa [facility] 01-05-2023 influenza virus vaccine, unspecified formulation Thaddeus Mckeon MD Work Phone: [facility] 12-27-2017 influenza, injectabl e, quadrivalent, preservative free [facility] 12-27-2017 influenza, seasonal, injectable [facility] Payers Date Payer Category Payer Medicare UNKN 2024 Unknown 2024 Unknown [id number] 2024 Medicaid [id number] 2024 Self-pay [id number] 2023 Medicare [employer] MED[employer] RE [employer] SECURE [id number] 2023-Present [address] [place] [address] Medicare HMO [id number] 2023 Medicare HMO [employer] SECURE [id number] 2016 Medicare [id number] Unknown [id number] 2.16.840.1.794421.3.579.2.462 Unknown [id number] 2.16.840.1.935038.3.579.2.462 Unknown [id number] 2.16.840.1.440241.3.579.2.462 Unknown [id number] 2.16.840.1.244614.3.579.2.462 Unknown [id number] 2.16.840.1.391375.3.579.2.462 Unknown [id number] 2.16.840.1.525225.3.579.2.462 Unknown [id number] 2.16.840.1.334103.3.579.2.462 Unknown [id number] 2.16.840.1.201142.3.579.2.462 Unknown [id number] 2.16.840.1.758581.3.579.2.462 Unknown [id number] 2.16.840.1.186874.3.579.2.462 Unknown [id number] 2.16.840.1.429154.3.579.2.462 Unknown [id number] 2.16.840.1.146219.3.579.2.462 Unknown [id number] 2.16.840.1.573860.3.579.2.462 Unknown [id number] 2.16.840.1.583599.3.579.2.462 Unknown [id number] 2.16.840.1.701796.3.579.2.462 Unknown [id number] 2.16.840.1.537350.3.579.2.462 Unknown [id number] 2.16.840.1.830125.3.579.2.462 Unknown [id number] 2.16.840.1.973380.3.579.2.462 Unknown [id number] 2.16.840.1.472178.3.579.2.462 Unknown [id number] 2.16.840.1.408258.3.579.2.462 Unknown [id number] 2.16.840.1.213871.3.579.2.462 Unknown [id number] 2.16.840.1.302301.3.579.2.462 Unknown [id number] 2.16.840.1.530792.3.579.2.462 Unknown [id number] 2.16.840.1.882207.3.579.2.462 Unknown [id number] 2.840.1.459166.3.579.2.462 Unknown [id number] 2.840.1.843715.3.579.2.462 Unknown [id number] 2.840.1.534109.3.579.2.462 Unknown [id number] 2.840.1.231940.3.579.2.462 Unknown [id number] 2.840.1.664577.3.579.2.462 Unknown [id number] 2.16840.1.015826.3.579.2.462 Unknown [id number] 2.16.840.1.072660.3.579.2.462 Unknown [id number] 2.16840.1.140085.3.579.2.462 Unknown [id number] 2.16840.1.491672.3.579.2.462 Unknown [id number] 2.16840.1.003191.3.579.2.462 Unknown [id number] 2.16.840.1.117963.3.579.2.462 Unknown [id number] 2.16840.1.724489.3.579.2.462 Unknown [id number] 2.16.840.1.525068.3.579.2.462 Unknown [id number] 2.16.840.1.285756.3.579.2.462 Unknown [id number] 2.16.840.1.800329.3.579.2.462 Social History Date Type Detail Facility Start: 03-04-2021 Tobacco smoking stat [facility] Unknown if ever smoked [facility] Start: 12-28-2017 Non-smoker [facility] Start: 1940 Sex Assigned At Female [facility] Start: 2023 End: 01-10-2024 Tobacco smoking status HIIS Never smoked tobacco [facility] Start: 2023 Tobacco use and exposure Smokeless tobacco non-user [facility] Start: 11-21-2023 End: 01-04-2024 Alcoholic beverage intake Lifetime non-drinker (finding) [facility] Start: 11-21-2023 End: 01-04-2024 History of Social function [facility] Start: 11-21-2023 End: 01-04-2024 Tobacco use panel [facility] Start: 1940 Sex assigned at Not on file [facility] Start: 10-18-2021 End: 06-25-2024 Sex Female (finding) [facility] Medical Equipment Procedure Code Equipment Code [...] Valve Aor Soumya 3 Ultra 23mm - [id number] - [id number] Start: 12-25-2023 Comment on above: Description: [id number] Device Perclose Prostyle - [id number] Start: 12-25-2023 Device Perclose Prostyle - [id number] Start: 12-25-2023 DOUGH,CEMENT 6191-1-010 FDA Start: [...] Note Records received and scanned under Media [facility] 04-03-2024 Miscellaneous Notes Records received and scanned under Media I called [facility] and she requested me to fax med recs release to [phone] I faxed this morning. Confirmed 04/02 at 5:45p I spoke w/ Juana in Dr. Garces's office, asking for echo order to be faxed. I placed Teofilo brennan DNP to sign, order needs faxed to Juana's attention @ [phone]. Time frame dates given to Juana for completion of OV/EKG/echo. KCCQ mailed to pt. ----- Message from JEREMIE Saldaña CNP sent at 01/04/2024 1:51 PM EDT ----- Please call [facility] office and advise regarding registry requirements of one month and one yr appts and echo. Will likely need phone call for KCCQ. documented in this encounter [facility] 04-01-2024 Telephone encounter Note I called [facility] and she requested me to fax med recs release to [phone] I faxed this morning. Confirmed 04/02 at 5:45p [facility] 04-01-2024 Miscellaneous Notes I called [facility] and she requested me to fax med recs release to [phone] I faxed this morning. I spoke w/ Juana in Dr. Garces's office, asking for echo order to be faxed. I placed anu, Teofilo David DNP to sign, order needs faxed to Juana's attention @ [phone]. Time frame dates given to Juana for completion of OV/EKG/echo. KCCQ mailed to pt. ----- Message from JEREMIE Saldaña CNP sent at 01/04/2024 1:51 PM EDT ----- Please call [facility] office and advise regarding registry requirements of one month and one yr appts and echo. Will likely need phone call for KCCQ. documented in this encounter [facility] 04-01-2024 Miscellaneous Notes I called [facility] and she requested me to fax med recs release to [phone] I faxed this morning. Confirmed 04/02 at 5:45p I spoke w/ Juana in Dr. Garces's office, asking for echo order to be faxed. I placed Teofilo brennan DNP to sign, order needs faxed to [place]ana's attention @ [phone]. Time frame dates given to [place] for completion of OV/EKG/echo. KCCQ mailed to pt. ----- Message from Mónica David, JEREMIE - TRANSCRIBER sent at 01/04/2024 1:51 PM EDT ----- Please call [facility] office and advise regarding registry requirements of one month and one yr appts and echo. Will likely need phone call for KCCQ. documented in this encounter [facility] 01-04-2024 Telephone encounter Note I spoke w/ Juana in Dr. Garces's office, asking for echo order to be faxed. I placed Teofilo brennan DNP to sign, order needs faxed to [place]'s attention @ [phone]. Time frame dates given to [place] for completion of OV/EKG/echo. KCCQ mailed to pt. [facility] 01-04-2024 Telephone encounter Note ----- Message from JEREMIE Saldaña CNP sent at 01/04/2024 1:51 PM EDT ----- Please call [place] office and advise regarding registry requirements of one month and one yr appts and echo. Will likely need phone call for KCCQ. [facility] 01-04-2024 History of Present illness Narrative Images from the original note were not included. [facility] [address] [facility] [address] Dept: [phone] Dept Visit type: Established : 1940 Reason for Visit: Cardiac Valve Problem (One week post TAVR) Assessment and Plan 1. Chronic atrial fibrillation (HCC). HR stable. Continue Apixaban 2. Severe aortic stenosis. S/p tAVR. Continue Eliquis. Will contact [place] regarding follow up and registry requirements. SBE prophylaxis. Plan echo in one month 3. Stage 3a chronic kidney disease (HCC). Renal function remains stable post procedure. Advised that kidney function should be followed custodial. GFR 27--> 46 4. Left heart failure (HCC). Improved after TAVR, EF 30%--> 50 %, continue furosemide, Aldactone, Farxiga, metoprolol (allerg to landon/ARB) Plan follow up in [place] Subjective Ms Call is an 83 yr old female with a PMH of permanent AF, HFrEF, HTN, HPL, CKD stage 3b, obesity, GERD, and severe with EF 30%, mean and peak gradients 49/71 mm Hg. She underwent cardiac cath at [place] which showed non obstructive CAD. She underwent [...] wrist complaints. She wishes to follow in [place] as travel is difficult for her Allergies [...] Hypokalemia LVH (left ventricular hypertrophy) Morbid obesity ([facility]) Osteoarthritis Vitamin D deficiency Social History Tobacco Use Smoking status: Never Smokeless tobacco: Never Substance Use Topics Alcohol use: Never Past Surgical History: Procedure Laterality Date APPENDECTOMY CARDIAC CATHETERIZATION N/A 12/25/2023 Performed by Harjeet Huffman MD at [facility] OR CATARACT EXTRACTION HYSTERECTOMY No [...] JEREMIE Ruiz CNP documented in this encounter [facility] 12-26-2023 Nurse Note Discharge instructions given to patient and daughter. Patient verbalizes understanding of medication changes and follow up appointments, and activity restrictions. Discharged to home with daughter. [facility] 12-26-2023 Nurse Note Discharge instructions given to patient and daughter. Patient verbalizes understanding of medication changes and follow up appointments, and activity restrictions. Discharged to home with daughter. documented in this encounter [facility] 12-26-2023 Note Attestation signed by Harjeet [...] discharge. Referral has been made to the [facility]. Last Labs: Lab Results Component Value Date WBC 11.6 (H) 12/26/2023 HGB 14.0 12/26/2023 HCT 43.0 12/26/2023 MCV 97.9 12/26/2023 PLT 154 10/ (more content not included)... [facility] 12-26-2023 Consult note Associated Order (s): IP CONSULT TO CARDIAC REHAB Received referral and reviewed chart. Phase II Cardiopulmonary Rehab Referral discussed with Brianne Call. Patient prefers cardiopulmonary rehab at [place] [facility]. Given information on program at preferred location. [facility] 12-26-2023 Note Received referral an d reviewed chart. Phase II Cardiopulmonary Rehab Referral discussed with Brianne Call. Patient prefers cardiopulmonary rehab at [place] [facility]. Given information on program at preferred location. [facility] 12-26-2023 Consult note Associated Order (s): IP CONSULT TO CARDIAC REHAB Received referral and reviewed chart. Phase II Cardiopulmonary Rehab Referral discussed with Brianne Call. [facility] Given information on program at preferred location. documented in this encounter [facility] 12-26-2023 Note Atrial fibrillation Poor R wave progression, CONSIDER ANTERIOR INFARCT ST and T abnormality Electronically Signed On 12-26-2023 09:21:43 EDT by uAstin Carmona [facility] 12-26-2023 Note Atrial fibrillation Poor R wave progression, CONSIDER ANTERIOR INFARCT ST and T abnormality Electronically Signed On 12-26-2023 09:21:43 EDT by Austin Carmona [facility] 12-26-2023 Note IMPRESSION: Atrial fibrillation Poor R wave progression, CONSIDER ANTERIOR INFARCT ST and T abnormality Electronically Signed On 12-26-2023 09:21:43 EDT by [place] [facility] 12-25-2023 Hospital Discharge instructions Mónica David APRN - SIM - 12/25/2023 12:24 PM EDT - Please call the Heart [facility] Clinic with any questions: [phone] -You will have have the following follow [...] unless otherwise specified. documented in this encounter [facility] 12-25-2023 Note Patient: Brianne Yao rodolfo Procedure Summary Date: 12/25/23 Room / Location: [facility] OR [facility] [...] once all PACU criteria has been met. [facility] 12-25-2023 Note Patient: Brianne reynolds Procedure Summary Date: 12/25/23 Room / Location: [facility] OR [facility] [...] opportunity for questions and acknowledgement of understanding. [facility] 12-25-2023 Note Arterial Line: Date/Time: 12/25/2023 [...] Performed: Other Other staff: Harjeet Huffman MD [facility] 12-25-2023 Note Formatting of this n [...] The valve was passed through the 14 Luxembourger sapient E sheath into the descending thoracic [...] patient was decannulated transferred stable to recovery. [employer] Phone: 12-25-2023 Note Formatting of this n ote might be different from the original. Date of surgery 12/25/2023 Cardiothoracic Surgeon: Tien Cornell MD, [facility] Preoperative diagnosis: Severe, symptomatic aortic valve [...] The valve was passed through the 14 Luxembourger sapient E sheath into the descending thoracic [...] patient was decannulated transferred stable to recovery. [employer] Phone: 12-25-2023 Miscellaneous Notes Date of surgery [...] The valve was passed through the 14 Luxembourger sapient E sheath into the descending thoracic [...] stable to recovery. documented in this encounter [facility] 12-25-2023 Attending History and physical note H&P reviewed. The patient was examined and there are no changes to the H&P. Source Note - Arlene Velez APRN - TRANSCRIBER - 12/22/2023 12:39 PM EDT Images from the original note were not included. H+ P copied to chart from (office provider's name Mónica David APRN) progress note dated 12/12/23 on behalf of (procedural physician's name Dr. Huffman). Expand All Collapse All [facility] [place] [address] [facility] [address] Dept: [phone] Dept Visit type: Established : 1940 Reason [...] mm Hg. She underwent cardiac cath at [place] which showed non obstructive CAD. He kidney [...] mg IntraVENous Once Mónica David APRN - TRANSCRIBER sodium chloride 0.9 % bolus 500 mL [...] interpretation of tests: Mónica David APRN - TRANSCRIBER [employer] Phone: 12-25-2023 History and physical note H&P reviewed. The patient was examined and there are no changes to the H&P. Source Note - Arlene Velez APRN - TRANSCRIBER - 12/22/2023 12:39 PM EDT Images from the original note were not included. H+ P copied to chart from (office provider's name Mónica David APRN) progress note dated 12/12/23 on behalf of (procedural physician's name Dr. Huffman). Expand All Collapse All [facility] [place] [address] [facility] [address] Dept: [phone] Dept Visit type: Established : 1940 Reason [...] mm Hg. She underwent cardiac cath at [place] which showed non obstructive CAD. He kidney [...] mg IntraVENous Once Mónica David APRN - TRANSCRIBER sodium chloride 0.9 % bolus 500 mL [...] interpretation of tests: Mónica David APRN - TRANSCRIBER documented in this encounter [facility] 12-25-2023 Note H&P reviewed. The pa camden was examined and there are no changes to the H&P. [facility] 12-22-2023 History and physical note Images from the original note were not included. H+ P copied to chart from (office provider's name Mónica David APRN) progress note dated 12/12/23 on behalf of (procedural physician's name Dr. Huffman). Expand All Collapse All [facility] [place] [address] [facility] [address] Dept: [phone] Dept Visit type: Established : 1940 Reason [...] mm Hg. She underwent cardiac cath at [place] which showed non obstructive CAD. He kidney [...] mg IntraVENous Once Mónica David APRN - TRANSCRIBER sodium chloride 0.9 % bolus 500 mL [...] interpretation of tests: Mónica David APRN - TRANSCRIBER Associated attestation - Harjeet Huffman MD - [...] We will proceed with the planned procedure. [facility] 12-22-2023 History and physical note Images from the original note were not included. H+ P copied to chart from (office provider's name Mónica David APRN) progress note dated 12/12/23 on behalf of (procedural physician's name Dr. Huffman). Expand All Collapse All [facility] [address] [facility] [address] Dept: [phone] Dept Visit type: Established : 1940 Reason [...] mm Hg. She underwent cardiac cath at [place] which showed non obstructive CAD. He kidney [...] mg IntraVENous Once Mónica David APRN - TRANSCRIBER sodium chloride 0.9 % bolus 500 mL [...] interpretation of tests: Mónica David APRN - TRANSCRIBER Associated attestation - Harjeet Huffman MD - [...] the planned procedure. documented in this encounter [facility] 12-22-2023 Note Attestation signed by Harjeet [...] (procedural physician's name Dr. Huffman). Expand All [facility] [address] [address] Dept: [phone] Dept Visit type: Established : 1940 Reason [...] mm Hg. She underwent cardiac cath at [place] which showed non obstructive CAD. He kidney [...] spironolactone (Aldactone) 25 (more content not included)... [facility] 12-22-2023 Note Attestation signed by Harjeet [...] name Dr. Huffman). Expand All Collapse All [facility] [address] [address] Dept: [phone] Dept Visit type: Established : 1940 Reason [...] mm Hg. She underwent cardiac cath at [place] which showed non obstructive CAD. He kidney [...] spironolactone (Aldactone) 25 (more content not included)... [facility] 12-21-2023 Note Pre TAVR phone call placed. Reviewed, procedure, instructions and meds. Confirmed Eliquis, and Dye Allergy Prep med instructions. Pt verbalizes understanding. Pt knows to call [phone] with any concerns. Teofilo Velze CNP notified for prep for procedure orders. Diagnosis: Procedure being done: TF TAVR Date/time of procedure: 12/25/2023 @ 9:15 am Surgeon: Dr. Huffman 2nd surgeon: Dr. Olsen Admission type: To be admitted Anesthesia: MAC Completed: H&P/BNP/CBC/CMP/CXR/EKG Date completed: [facility] 12/19/23, 12/12/23 Additional orders Dye Allergy Prep [facility] 12-15-2023 Note Patient: Brianne reynolds Procedure Information Date/Time: 12/25/2315 Procedures: TRANSCATHETER AORTIC VALVE REPLACEMENT, TRANSTHORACIC ECHOCARDIOGRAM TRANSCATHETER AORTIC VALVE REPLACEMENT, TRANSTHORACIC ECHOCARDIOGRAM (Chest) Location: [facility] OR [facility] [...] complete Records in media Carolina Castro Vanita, DYE WEIGHER HELPER - TRANSCRIBER JOB Screening Labs: Lab Results Component Value [...] 71 mmHg Equipment Requests: Additional Equipment Requests [facility] 12-12-2023 History of Present illness Narrative Pts symptoms of the reaction have all gone away. Pt states she feels back to normal. Pt came back from CT and pts face is red and she states she is starting to progressively get itchy. Mónica David NP is here at this time and order medications. documented in this encounter [facility] 12-12-2023 History of Present illness Narrative Images from the original note were not included. [facility] [place] [address] [place] [address] Dept: [phone] Dept Visit type: Established : 1940 Reason [...] mm Hg. She underwent cardiac cath at [place] which showed non obstructive CAD. He kidney [...] mg 100 mg IntraVENous Once Mónica David DYE WEIGHER HELPER - TRANSCRIBER sodium chloride 0.9 % bolus 500 mL [...] JEREMIE Ruiz CNP documented in this encounter [facility] 12-12-2023 Note Pt came back from CT and pts face is red and she states she is starting to progressively get itchy. Mónica David PUMP AND BLOWER OPERATOR is here at this time and order medications. [facility] 12-06-2023 Note Message reviewed. Re commend CTA with IV hydration. Can get pre procedure labs at time of CTA. [facility] 11-21-2023 History of Present illness Narrative Images from the original note were not included. [facility] [address] [facility] [address] Dept: [phone] Dept Loc: [phone] Today's Visit Location: TAVR (transcather aortic valve replacement) Clinic [facility] Card[facility] [address] [place] [address] Visit type: Senior Health Assessment at TAVR (transcather aortic valve replacement) Clinic Visit Date: 11/21/2023 Reason for Visit: Shortness of Breath Assessment and Plan 1. Nonrheumatic aortic valve stenosis Assessment & Plan: S/p AV replacement by Dr. Nagy in 201209/22/23 Transthoracic Echo (TTE) noted "severe aortic stenosis". Mean Gradient of 49. Dr. Garces in [place]. No aortic valve area mentioned. I agree with cardiology plan as discussed with bioinformatics associate Dr. Huffman and CTS Dr. Reed on [...] Patient has already named her Power of Machine Compositor for Healthcare and Finances (Both are her daughter Shama López) I recommended patient follow-up with [facility] (phone: [phone] fax: [phone]) as needed for memory testing. 4. Drug-induced [...] Mean Gradient of 49. Dr. Garces in [place]. No aortic valve area mentioned. A fib [...] no=0 points)0 - patient rents room from [facility]. Rajiv (son) lives w pt [...] [] Daughter Shama López (financial Power of Machine Compositor) is on bank acct but patient manages [...] phrases are mis-transcribed.) documented in this encounter [facility] 11-21-2023 Instructions Thaddeus Mckeon MD - 11/21/2023 3:30 PM EDT GERIATRICS DISCHARGE INSTRUCTIONS: Follow-up with [facility] (phone: [phone] fax: [phone]) as needed for memory testing. Please BEGIN [...] risk of falls. documented in this encounter [facility] 11-21-2023 Evaluation + Plan note Associated Problem(s): Drug-induced bradycardia HR 58 bpm today but no syncope, presyncope, falls Patient asymptomatic today Patient taking lopressor 12.5mg po bid - I encouraged patient to discuss with her cardiologists/PCP (primary care provider) regarding change of meds given her advanced age and increased risk of falls [facility] 11-21-2023 Miscellaneous Notes Associated Problem(s): Drug-induced [...] Patient has already named her Power of Machine Compositor for Healthcare and Finances (Both are her daughter Shama López) I recommended patient follow-up with [facility] (phone: [phone] fax: [phone]) as needed for memory testing. Associated Problem(s): [...] Mean Gradient of 49. Dr. Garces in [place]. No aortic valve area mentioned. I agree with cardiology plan as discussed with bioinformatics associate Dr. Huffman and CTS Dr. Reed on same date regarding next steps for further workup/treatment of cardiac disease which likely includes heart cath +/- TAVR. On this date of evaluation, the patient has sufficient understanding of procedure(s) to consent to the procedure(s) being discussed and has adequate social support(s). documented in this encounter [facility] 11-21-2023 History of Present illness Narrative Images from the original note were not included. [facility]: Cardiothoracic Surgery Multidisciplinary Heart Valve Clinic Date: 11/21/23 Patient:Brianne Call 1940 83 y.o. female [id number] Subjective: HPI: Brianne Call 83 y.o. referred [...] the near future. Given her proximity to [facility], she would prefer [...] other diagnostic images. documented in this encounter [facility] 11-21-2023 Evaluation + Plan note Associated Problem(s): Short-term memory loss Chronic Patient with occasional word-finding difficulties I suspect either normal memory loss for aging or possibly MCI (Mild Cognitive Impairment) Patient has already named her Power of Machine Compositor for Healthcare and Finances (Both are her daughter Shama López) I recommended patient follow-up with [facility] (phone: [phone] fax: [phone]) as needed for memory testing. [facility] 11-21-2023 Evaluation + Plan note Associated Problem(s): Chronic atrial fibrillation (HCC) Chronic; Stable Asymptomatic May be nearing renal (kidney) dysfunction requiring reduced dose of eliquis (given Cr nearly 1.5 in past and patient's age >80 yo). May need eliquis 2.5mg po bid instead of 5mg po bid in future pending renal (kidney) function [facility] 11-21-2023 Evaluation + Plan note Associated [...] not missing or doubling up on meds [facility] 11-21-2023 Evaluation + Plan note Associated Problem(s): Nonrheumatic aortic valve stenosis S/p AV replacement by Dr. Nagy in 201209/22/23 Transthoracic Echo (TTE) noted "severe aortic stenosis". Mean Gradient of 49. Dr. Garces in [place]. No aortic valve area mentioned. I agree with cardiology plan as discussed with bioinformatics associate Dr. Huffman and CTS Dr. Reed on same date regarding next steps for further workup/treatment of cardiac disease which likely includes heart cath +/- TAVR. On this date of evaluation, the patient has sufficient understanding of procedure(s) to consent to the procedure(s) being discussed and has adequate social support(s). [facility] 11-21-2023 History of Present illness Narrative Images from the original note were not included. [facility] [address] [facility] [address] Dept: [phone] Dept Visit type: New : 1940 Reason for Visit: Cardiac Valve Problem Assessment and Plan 1. LV dysfunction 2. Stenosis of prosthetic aortic valve, initial encounter - ECG 12 lead - CLINIC PERFORMED This is a very pleasant 83 y.o. 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 she is clearly in need of aortic valve replacement, likely [id number] TAVR. Will need a diagnostic cath first, [...] Harjeet Huffman MD documented in this encounter [facility] 11-16-2023 Note Received fax referra l to Heart [facility]ve Clinic from Dr. Garces @ [facility]. I spoke w/ [place], echo images to be pushed to PACS, she will fax lab work. I spoke w/ pt, appt scheduled. Chart made. [facility] Evaluation note No assessment inform ation available [facility] Work Phone: Evaluation note Diagnosis Nonrheumatic aortic valve stenosis- Primary Chronic atrial fibrillation (HCC) Atrial fibrillation Short-term memory loss Memory loss Drug-induced bradycardia Polypharmacy Issue of repeat prescriptions [facility] Diagnosis Stenosis of prosthetic aortic valve, initial encounter- Primary [facility] Diagnosis LV dysfunction- Primary Left heart failure Stenosis of prosthetic aortic valve, initial encounter documented in this encounter [facility]* Diagnosis Nonrheumatic aortic valve stenosis- Primary Chronic atrial fibrillation (HCC)- Primary Atrial fibrillation Nonrheumatic aortic valve stenosis Adverse effect of contrast media, initial encounter Nonrheumatic aortic valve stenosis documented in this encounter [facility]* Diagnosis Nonrheumatic aortic valve stenosis- Primary Renal failure, unspecified chronicity Stenosis of prosthetic aortic valve, initial encounter Nonrheumatic aortic valve stenosis documented in this encounter [facility]* Diagnosis Nonrheumatic aortic valve stenosis- Primary Nonrheumatic aortic valve stenosis Nonrheumatic aortic valve stenosis documented in this encounter [facility]* Diagnosis Nonrheumatic aortic valve stenosis- Primary Severe aortic stenosis- Primary Aortic valve disorders Nonrheumatic aortic valve stenosis documented in this encounter [facility]* Diagnosis Severe aortic stenosis- Primary Aortic valve disorders documented in this encounter [facility]* Diagnosis Nonrheumatic aortic valve stenosis- Primary Severe aortic stenosis Aortic valve disorders Severe aortic stenosis Aortic valve disorders Nonrheumatic aortic valve stenosis documented in this encounter [facility] note* Diagnosis Chronic atrial fibrillation (HCC)- Primary Atrial fibrillation Severe aortic stenosis Aortic valve disorders Stage 3a chronic kidney disease (HCC) Left heart failure (HCC) Left heart failure documented in this encounter [facility] note* Diagnosis Nonrheumatic aortic valve stenosis- Primary Chronic atrial fibrillation (HCC) Atrial fibrillation Short-term memory loss Memory loss Drug-induced bradycardia Polypharmacy Issue of repeat prescriptions S/P TAVR (transcatheter aortic valve replacement) [facility] Diagnosis Nonrheumatic aortic valve stenosis- Primary Chronic atrial fibrillation (HCC) Atrial fibrillation Short-term memory loss Memory loss Drug-induced bradycardia Polypharmacy Issue of repeat prescriptions S/P TAVR (transcatheter aortic valve replacement) documented in this encounter [facility] for referral (narrative)No reason for referral information [facility] Work Phone: Family History No Family [...] Yes December 26 8 12:21pm Power of Machine Compositor Yes December 26 018 12:21pm Date Activated [...] CTA Angiogram TAVR Arlene Velez APRN - TRANSCRIBER [address] [place] [address] Referral ID Status Reason Start Date Expiration Date Visits Re quested Visits Authorized [id number] Closed 12/07/2023 02/05/2024 1 1 Summary Purpose Chief Complaint and Reason for Visit Chief Complaint Admit Date MONTHLY EXAM February 27, 2024 3:12pm LABWORK March 01, 2024 5:00am [facility] LAB WORK March 08 4:00am LABWORK March 15, 2024 2:14pm NEW CONCERN March 15, 2024 4:36pm MONTHLY EXAM April 02, 2024 1 1:01pm [facility] LAB WORK April 09, 2024 5:00am [facility] LAB WORK April 22, 2024 5:00am LABWORK May 07, 2024 5:00am MONTHLY EXAM May 16, 2024 11:05am [facility] LAB WORK June 04, 2024 5 :00am Chief Complaint Admit Date MONTHLY EXAM April 02, 2024 1 1:01pm [facility] LAB WORK April 09, 2024 5:00am [facility] LAB WORK April 22, 2024 5:00am LABWORK May 07, 2024 5:00am MONTHLY EXAM May 16, 2024 11:05am MONTHLY EXAM May 28, 2024 4:2 0pm [facility] LAB WORK June 04, 2024 5 :00am [facility] LAB WORK June 18, 2024 5: 00am [facility] LAB WORK July 02, 2024 5 :00am Chief Complaint Admit Date [facility] LAB WORK April 22, 2024 5:00am LABWORK May 07, 2024 5:00am MONTHLY EXAM May 16, 2024 11:05am MONTHLY EXAM May 28, 2024 4:2 0pm [facility] LAB WORK June 04, 2024 5 :00am [facility] LAB WORK June 18, 2024 5: 00am [facility] LAB WORK July 02, 2024 5 :00am LABWORK July 30, 2024 5:00a m Chief Complaint Admit Date LABWORK May 07, 2024 5:00am MONTHLY EXAM May 16, 2024 11:05am MONTHLY EXAM May 28, 2024 4:2 0pm [facility] LAB WORK June 04, 2024 5 :00am [facility] LAB WORK June 18, 2024 5: 00am [facility] LAB WORK July 02, 2024 5 :00am [facility] LAB WORK July 15, 2024 4 :00am LABWORK July 30, 2024 5:00a m Chief Complaint Admit Date [facility] LAB WORK June 18, 2024 5: 00am [facility] LAB WORK July 02, 2024 5 :00am [facility] LAB WORK July 15, 2024 4 :00am MONTHLY EXAM July 23, 2024 3:15pm LABWORK July 30, 2024 5:00a m [facility] LAB WORK August 14, 2024 5:0 0am [facility] LAB WORK August 27, 2024 5: 00am Chief Complaint Admit Date [facility] LAB WORK June 18, 2024 5: 00am [facility] LAB WORK July 02, 2024 5 :00am [facility] LAB WORK July 15, 2024 4 :00am MONTHLY EXAM July 23, 2024 3:15pm LABWORK July 30, 2024 5:00a m [facility] LAB WORK August 14, 2024 5:0 0am NEW CONCERN August 20, 2024 3:45p m [facility] LAB WORK August 27, 2024 5: 00am Chief Complaint Admit Date [facility] LAB WORK June 18, 2024 5: 00am [facility] LAB WORK July 02, 2024 5 :00am [facility] LAB WORK July 15, 2024 4 :00am MONTHLY EXAM July 23, 2024 3:15pm LABWORK July 30, 2024 5:00a m [facility] LAB WORK August 14, 2024 5:0 0am NEW CONCERN August 20, 2024 3:45p m [facility] LAB WORK August 27, 2024 5: 00am NEW CONCERN September 02, 2024 3:00 pm Chief Complaint Admit Date [facility] LAB WORK July 15, 2024 4 :00am MONTHLY EXAM July 23, 2024 3:15pm LABWORK July 30, 2024 5:00a m [facility] LAB WORK August 14, 2024 5:0 0am NEW CONCERN August 20, 2024 3:45p m [facility] LAB WORK August 27, 2024 5: 00am NEW CONCERN September 02, 2024 3:00 pm [facility] LAB WORK September 24, 2024 4:0 0am Monthly Exam October 01, 2024 4:50 pm LABWORK October 07, 2024 5:00 am [facility] LAB WORK October 09, 2024 5: 00am Chief Complaint Admit Date MONTHLY EXAM July 23, 2024 3:15pm LABWORK July 30, 2024 5:00a m [facility] LAB WORK August 14, 2024 5:0 0am NEW CONCERN August 20, 2024 3:45p m [facility] LAB WORK August 27, 2024 5: 00am NEW CONCERN September 02, 2024 3:00 pm [facility] LAB WORK September 24, 2024 4:0 0am Monthly Exam October 01, 2024 4:50 pm LABWORK October 07, 2024 5:00 am [facility] LAB WORK October 09, 2024 5: 00am [facility] LAB WORK October 22, 2024 5 :00am MONTHLY EXAM October 23, 2024 5:3 0pm Chief Complaint Admit Date [facility] LAB WORK August 27, 2024 5: 00am NEW CONCERN September 02, 2024 3:00 pm [facility] LAB WORK September 24, 2024 4:0 0am Monthly Exam October 01, 2024 4:50 pm LABWORK October 07, 2024 5:00 am [facility] LAB WORK October 09, 2024 5: 00am [facility] LAB WORK October 22, 2024 5 :00am MONTHLY EXAM October 23, 2024 5:3 0pm [facility] LAB WORK November 19 5:00am Additional Source [...] Provi guillermo, Attending Provider, Referring Provider Active Director Digital Sales Relationship Specialty Start Date End Date Alvarado Hull MD [address] [place] [address] PCP - General Geriatric Medicine 11/21/23 Director Digital Sales Relationship Specialty Start Date End Date Alvarado Hull MD [address] [place] [address] PCP - General Geriatric Medicine 11/21/23 Director Digital Sales Relationship Specialty Start Date End Date Alvarado Hull MD [address] [place] [address] PCP - General Geriatric Medicine 11/21/23 Director Digital Sales Relationship Specialty Start Date End Date Alvarado Hull MD [address] [place] [address] PCP - General Geriatric Medicine 11/21/23 Director Digital Sales Relationship Specialty Start Date End Date Alvarado Hull MD [address] [place] [address] PCP - General Geriatric Medicine 11/21/23 Director Digital Sales Relationship Specialty Start Date End Date Alvarado Hull MD [address] [place] [address] PCP - General Geriatric Medicine 11/21/23 Director Digital Sales Relationship Specialty Start Date End Date Alvarado Hull MD [address] [place] [address] PCP - General Geriatric Medicine 11/21/23 Director Digital Sales Relationship Specialty Start Date End Date Alvarado Hull MD [address] [place] [address] PCP - General Geriatric Medicine 11/21/23 Director Digital Sales Relationship Specialty Start Date End Date Alvarado Hull MD [address] [address] [place] [address] PCP - General Geriatric Medicine 11/21/23 Director Digital Sales Relationship Specialty Start Date End Date Alvarado Hull MD [address] [place] [address] PCP - General Geriatric Medicine 11/21/23 Director Digital Sales Relationship Specialty Start Date End Date Alvarado Hull MD [address] [place] [address] PCP - General Geriatric Medicine 11/21/23 Team Status: Inactive Member Role Status Dates Dr. Scott Hull MD Primary Care Provider Active Start: February 27, 2024 End: February 27, 2024 Sara Irizarry PUMP AND BLOWER OPERATOR, PUMP AND BLOWER OPERATOR-C Attending Provider Active Start: February 27, [...] 2024 End: March 15, 2024 Sara Irizarry PUMP AND BLOWER OPERATOR, PUMP AND BLOWER OPERATOR-C Attending Provider Active Start: March 15, [...] 2024 End: August 20, 2024 Sara Irizarry PUMP AND BLOWER OPERATOR, PUMP AND BLOWER OPERATOR-C Attending Provider Active Start: August 20, [...] 2024 End: September 02, 2024 Sara Irizarry PUMP AND BLOWER OPERATOR, PUMP AND BLOWER OPERATOR-C Attending Provider Active Start: September 02, [...] 2024 End: August 20, 2024 Sara Irizarry PUMP AND BLOWER OPERATOR, PUMP AND BLOWER OPERATOR-C Attending Provider Active Start: August 20, [...] 2024 End: September 02, 2024 Sara Irizarry PUMP AND BLOWER OPERATOR, PUMP AND BLOWER OPERATOR-C Attending Provider Active Start: September 02, [...] End: August 20, 2024 Sara Irizarry NP PUMP AND BLOWER OPERATOR-C Attending Provider Active Start: August 20, 2024 End: August 20, 2024 Team Status: Active Member Role/Relationship Status Dates Dr. Scott uHll MD Primary Care Provider Active Start: August 27, 2024 Joe PORTILLO MD Attending Provider Active Start: August 27, 2024 Team Status: Inactive Member Role/Relationship Status Dates Dr. Scott Hull MD Primary Care Provider Active Start: September 02, 2024 End: September 02, 2024 Sara Irizarry NP PUMP AND BLOWER OPERATOR-C Attending Provider Active Start: September 02, [...] End: October 23, 2024 Sara Irizarry NP, PUMP AND BLOWER OPERATOR-C Attending Provider Active Start: October 23, 2024 [...] End: September 02, 2024 Sara Irizarry NP, PUMP AND BLOWER OPERATOR-C Attending physician Active Start: September 02, 2024 [...] End: October 23, 2024 Sara Irizarry NP, PUMP AND BLOWER OPERATOR-C Attending physician Active Start: October 23, 2024 [...] Huffman MD [address] [place] [address] [place] [address] Referral ID Status Reason Start Date Expiration Date Visits Re quested Visits Authorized [id number] Closed 12/12/2023 12/06/2024 1 1 Specialty Diagnoses / Procedures Referred By Contac t Referred To Contact Radiology Diagnoses Nonrheumatic aortic valve stenosis Procedures CTA Angiogram TAVR Arlene Velez APRN - TRANSCRIBER [address] [place] [address] Referral ID Status Reason Start Date Expiration Date Visits Re quested Visits Authorized [id number] Closed 12/07/2023 02/05/2024 1 1 Specialty Diagnoses / Procedures Referred By Contac t Referred To Contact Diagnoses Nonrheumatic aortic valve stenosis Procedures TRANSCATHETER AORTIC VALVE REPLACEMENT, TRANSTHORACIC ECHOCARDIOGRAM TRANSCATHETER AORTIC VALVE REPLACEMENT, TRANSTHORACIC ECHOCARDIOGRAM Harjeet Huffman MD [address] [place] [address] [address] [place] [address] Referral ID Status Reason Start Date Expiration Date Visits Re quested Visits Authorized [id number] 1 Reason Comments Cardiac Valve Problem [...] (Given - Provider: Edgar Warner APRN - PROGRAM/MUSIC DIRECTOR) dapagliflozin (Farxiga) tablet 10 mg 10 mg, [...] section and content) DATE CREATED AUTHOR 04/04/2024 [facility] DATE CREATED AUTHOR AUTHOR'S ORGANIZ ATION 01/30/2025 [facility] FOR RECORDS PERTAINING TO PATIENTS WHO ARE [...] BE BASED ON THE PRIMARY CLINICAL RECORDS. [facility]. provides no warranty or guarantee of the accuracy or completeness of information in this document.
[2025-03-11 07:45] LABS: Hematocrit 41.0 % (37-47); Hemoglobin 13.6 g/dL (12.0-15.0); Immature Granulocytes Count 0.040 X10^3/uL (0.0-0.0); Mean Corp Hgb Conc 33.2 g/dL (32-36); Mean Corpuscular Volume 96.2 fL (81-99); Mean Platelet Vol. 12.2 fl (6.2-12.0); NRBC Flagged by Analyzer 0 % (0-5); Platelet Count 203 K/mm3 (150-450); RBC Distribution Width CV 14.0 % (11.6-14.6); RBC Distribution Width SD 49.5 fl (35.1-43.9); Red Blood Count 4.26 M/mm3 (4.2-5.4); White Blood Count 7.7 K/mm3 (4.4-11.0)
[2025-03-11 07:58] LABS: Anion Gap 12 (7-18); BUN 24 mg/dL (4-19); BUN/Creat Ratio 12.8 RATIO (10-20); Calcium,Total 9.3 mg/dL (7.6-11.0); Carbon Dioxide 26.6 mmol/L (20.0-29.0); Chloride 101 mmol/L (96-106); Glucose 98 mg/dL (70-99); Potassium 4.2 mmol/L (3.5-5.1)
== END ==
LOC: OLS.WHLEAS 04:00
PROVIDERS: PCP Family Medicine Geriatric Medicine; Referring Provider Internal Medicine; Visit Provider Internal Medicine
DX: R48.8 Other symbolic dysfunctions (principal); I63.542 Cerebral infarction due to unspecified occlusion or stenosis of left cerebellar artery; I69.320 Aphasia following cerebral infarction; I69.351 Hemiplegia and hemiparesis following cerebral infarction affecting right dominant side
CPT/HCPCS: 36415; 80048; 85025

== ENCOUNTER → 2025-03-18 05:00 | Outpatient (REF) | payer MEDICARE, MEDICAID, SELFPAY ==
--- OUTSIDE RECORDS SUMMARY | 2025-03-18 04:02 | XMS RPT_ITS | CCD ---
Author Organization [facility] Care Team Providers Care Principal Software Engineer Name Role Phone Lucrecia Paige N Unavailable Lucrecia Paige N Unavailable Lucrecia Paige N Unavailable aYri Hernandez RN Unavailable Unavailable Yari Hernandez RN Unavailable Unavailable Paige Singer N Unavailable Shelly Ahuja Unavailable Unavailable SISI Gutierrez Michelle M Unavailable Yari Hernandez RN Unavailable Unavailable Alvarado Hull MD Primary Care Provider HARJEET HUFFMAN Attending Unavailable BITHARJEET PIERCE Referring Unavailable KURTIS, SCOTT-CHI Primary Care Unavailable HARJEET HUFFMAN Admitting Unavailable HAREJET HUFFMAN Attending Unavailable KURTIS, SCOTT-CHI Primary Care [...] Scott Hull MD, Chi Primary Care Provider [phone] Sara Cormier Attending Provider Joe Sanchez MD Attending Provider UnavailJoe Rivera MD Referring Provider Unavailagustin Sanchez MD, Dr. Diaz Attending Provider Eriberto Lugo Attending Provider Kurtis GUNN, Dr. Scott Sabiloln Primary Care Provider Joe Sanchez MD Attending Provider Unavailagustin Hull MD, Dr. Scott Sabillon Primary Care Provider [phone] Daniel GUNN, Joe Attending Provider Unavailagustin Sanchez MD, Dr. Diaz Attending Provider [phone] Kurtis GUNN, Dr. Scott Sabillon Primary Care Provider [phone] Daniel GUNN, Joe Attending Provider Unavailagustin Sanchez MD, Joe Referring Provider Unavailagustin Hull MD, Dr. Scott Sabillon Primary Care Provider Daniel GUNN, Joe Attending Provider Unavailagustin Sanchez MD, Dr. Diaz Attending Provider [phone] Sara Cormier Attending Provider Kurtis GUNN, Dr. Scott Sabillon Primary Care Provider Daniel GUNN, Joe Attending Provider Unavailagustin Hull MD, Dr. Scott Sabillon Primary Care Provider [phone] Joe Sanchez MD Attending Provider Unavailagustin Sanchez MD, Joe Referring Provider Unavailagustin Hull MD, Dr. Scott Sabillon Primary Care Physician Joe Sanchez MD Attending Physician Unavail able Sara Cormier Attending Physician Daniel GUNN, Dr. Diaz Attending Physician [phone] Oleghe OLS, Efewongbe Referring Unavailabl e Oleghe OLS, Efewongbe Attending Unavailabl e Kurtis, [facility] Primary Care Unavailable Oleghe OLS, Efewongbe Attending Unavailabl e Kurtis, [facility] Primary Care Unavailable Oleghe OLS, Efewongbe Referring Unavailabl e Oleghe OLS, Efewongbe Attending Unavailabl e Kurtis, [facility] Primary Care Unavailable Oleghe OLS, Efewongbe Attending Unavailabl e Kurtis, [facility] Primary Care Unavailable Oleghe OLS, Efewongbe [...] Unavailable Kurtis, Scott Chi Referring Unavailable Tickton RANGER AIDE, Sara Attending Unavailable Kurtis, Scott Chi Primary Care Unavailable Tickton RANGER AIDE, Sara Attending Unavailable Kurtis, Scott Chi Primary Care Unavailable Oleghe, Efewongbe Attending Unavailable Kurtis, Scott Chi Primary Care Unavailable Tickton RANGER AIDE, Sara Attending Unavailable Kurtis, Scott Chi Primary Care Unavailable Oleghe, Efewongbe Attending Unavailable Kurtis, Scott Chi Primary Care Unavailable Oleghe, Efewongbe Attending Unavailable Kurtis, Scott Chi Primary Care Unavailable Tickton RANGER AIDE, Sara Attending Unavailable Kurtis, Scott Chi Primary Care Unavailable Kurtis, Scott Chi Primary Care Unavailable Tickton RANGER AIDE, Sara Attending Unavailable Donovan RANGER AIDE, Sara Attending Unavailable Kurtis, Scott Chi Referring [...] [LANDON Inhibitors] drug allergy 11-06-19 16 Other [facility] Work Phone: (15 sources) Lisinopril Drug Allergy 03-04-20 21 [facility] (17 sources) Lisinopril Propensity to adverse reactions 11-14-19 24 [facility] (17 sources) sacubitril Drug Allergy 11-14-19 24 [facility] (17 sources) Valsartan Propensity to adverse reactions 11-14-19 24 [facility] (14 sources) Iodinated Contrast Media Propensity to adverse reactions 12-12-19 24 [facility] (10 sources) dapagliflozin Drug Allergy 02-07-[address] [facility] (10 sources) sacubitril Drug Allergy 02-07-20 cough [facility] (10 sources) Triiodobenzoic Acids Allergy to substance 02-07-20 Hives [facility] Comment on above: hives, red face and itching (10 sources) valsartan Drug Allergy 02-07-20 cough [facility] (1 source) dapagliflozin Drug Allergy 01-14-20 [facility] (1 source) Lisinopril Drug Allergy 01-14-20 [facility] (1 source) sacubitril Drug Allergy 01-14-20 [facility] (1 source) valsartan Drug Allergy 01-14-20 [facility] (1 source) Iodinated Contrast Media Drug allergy (disorder) 01-14-20 [facility] Medications Current Medications Medication Drug Class(es) [...] tablet by mouth twice daily PANTOPRAZOLE SODIUM [id number] Gerald Barragan MD potassium chloride 20 meq [...] CAPS One tablet by mouth daily CELECOXIB [id number] Mónica Gutierrez PA-C diphenhydrAMINE hydrochloride 25 mg oral tablet (2 sources) Histamine-1 Receptor Antagonist Start: 12-25-2023 End: 12-25-2023 take 50 mg by mouth once 50 mg, Oral, Once, On Mon12/25/23 at 0730, For 1 dose, Preprocedure docusate sodium 50 mg / sennosides, mcfp 8.6 mg oral tablet (15 sources) Start: [...] sources) Long-term current use of anticoagulant; Translations: [bed bug 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 (current) use of anticoagulants] 11-22-2023 Episodic Other [...] aftercare (18 sources) Polypharmacy ; Translations: [Other buttermaker continuous churn (current) drug therapy] Onset: 11-21-2023 11-21-2023 Episodic Other aftercare (2 sources) Other senior care (current) drug therapy; Translations: [Other senior care (current) drug therapy] Onset: 11-21-2023 Episodic Other [...] Facility Cardiology Visit Reporton Cardiology Visit Report [facility] [address] [place], [place] [address] OFFICE VISIT Date of Service: 01/13/25 MR#: [id number] Acct: [id number] Name: BRIANNE CALL Rep #: [id number] : 1940 Provider: ALBINA martins Age/Sex: 84/F Location: [facility] [place] Status: Signed HPI HPI History of Present Illness Details: This is an 84-year-old female who presents to the office today for cardiovascular follow-up visit. She has history of atrial fibrillation, dyslipidemia, nonischemic cardiomyopathy and aortic valve stenosis status post TAVR with valve in valve. She currently lives at [facility]. 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 Normal [facility] Absolute lymphocyte countOrd ered By: Joe Sanchez on 12-17-2024 Lymphocytes Auto (Unsp spec) [#/Vol] 1.63 10*3/uL 0.83-4.51 [facility] Absolute neutrophil countOrd ered By: Joe Sanchez on 12-17-2024 Neutrophils (Bld) [#/Vol] 4.7 10*3/uL 2.0-7.7 [facility] Anion gap in Serum or Plasma Ordered By: Joe Sanchez on 12-17-2024 Anion gap [Moles/Vol] 12 mmol/L 5-15 [facility] Automated lymphocyte count a s percentage of total leukocytesOrdered By: Joe Sanchez on 12-17-2024 Lymphocytes/100 WBC Auto (Unsp spec) 22.5 % 19-41 [facility] BUN/creatinine ratioOrdered By: Joe Sanchez on 12-17-2024 Urea nitrogen/Creatinine [Mass ratio] 18.8 mg/mg 10-20 [facility] Basophil percentageOrdered B y: Joe Sanchez on 12-17-2024 Basophils/100 WBC (Bld) 1.1 % High 0-1 [facility] Carbon dioxide, total [Moles /volume] in Central venous bloodOrdered By: Yudiclimaxlynnette Sanchez on 12-17-2024 CO2 [Moles/Vol] 25.6 mmol/L 21.0-32.0 [facility] Chloride assayOrdered By: Lluvia Sanchez on 12-17-2024 Chloride [Moles/Vol] 102 mmol/L 98-108 [facility] Eosinophil percentageOrdered By: claudioclimaxlynnette Sanchez on 12-17-2024 Eosinophils/100 WBC (Bld) 1.8 % 0-5 [facility] Erythrocyte distribution wid th ratioOrdered By: Yudiclimaxlynnette Sanchez on 12-17-2024 Erythrocyte distribution width (RBC) [Ratio] 14.4 % 11.6-14.6 [facility] Erythrocyte distribution wid th standard deviationOrdered By: claudioclimaxlynnette Sanchez on 12-17-2024 Erythrocyte distribution width (RBC) [Ratio] 52.1 fl High 35.1-43.9 [facility] Glomerular filtration rate ( GFR) estimation/1.73 sq m using serum, plasma, or whole bOrdered By: Joe Sanchez on 12-17-2024 GFR/1.73 sq M.predicted among non-blacks MDRD (S/P/Bld) [Vol rate/Area] 29 mL/min/{1.73_m2} Low >60 [facility] Comment on above: mL/min/1.73m2 CKD-EP I Creatinine Equation (2020) Hematocrit Auto (Bld) [Volum e fraction]Ordered By: Joe Sanchez on 12-17-2024 Hematocrit (Bld) [Volume fraction] 45.2 % 37-47 [facility] Hemoglobin measurementOrdere d By: Joe Sanchez on 12-17-2024 Hemoglobin (Bld) [Mass/Vol] 14.3 g/dL 12.0-15.0 [facility] Immature granulocytes/100 WB C Auto (Bld)Ordered By: montez Sanchez on 12-17-2024 Immature granulocytes/100 WBC (Bld) 0.600 % 0.0-0.9 [facility] Comment on above: IG% - Immature Granu locytes (promyelocytes, myelocytes and metamyelocytes) > 1% indicates that a LEFT SHIFT is Present. MCV (mean corpuscular volume ) determinationOrdered By: Joe Sanchez on 12-17-2024 MCV (RBC) [Entitic vol] 98.0 fL 81-99 [facility] Mean corpuscular hemoglobin (MCH) determinationOrdered By: Joe Sanchez on 12-17-2024 MCH (RBC) [Entitic mass] 31.0 pg 27.0-32.0 [facility] Mean corpuscular hemoglobin concentration (MCHC) determinationOrdered By: Joe Sanchez on 12-17-2024 MCHC (RBC) [Mass/Vol] 31.6 g/dL Low 32-36 [facility] Mean platelet volume determi nationOrdered By: Joe Sanchez on 12-17-2024 Platelet mean volume (Bld) [Entitic vol] 12.7 fL High 6.2-12.0 [facility] Monocyte percentageOrdered B y: Joe Sanchez on 12-17-2024 Monocytes/100 WBC (Bld) 9.4 % 0-10 [facility] Neutrophil percentageOrdered By: Joe Sanchez on 12-17-2024 Neutrophils/100 WBC (Bld) 64.6 % 47-70 [facility] Nucleated red blood cell per centageOrdered By: Joe Sanchez on 12-17-2024 Nucleated RBC/100 WBC (Bld) [Ratio] 0 % 0-5 [facility] Platelet countOrdered By: Lluvia Sanchez on 12-17-2024 Platelets (Bld) [#/Vol] 216 10*3/uL 150-450 [facility] Potassium measurement (mass/ volume)Ordered By: Joe Sanchez on 12-17-2024 Potassium (Unsp spec) [Mass/Vol] 4.2 mmol/L 3.3-5.1 [facility] RBC Auto (Bld) [#/Vol]Ordere d By: Joe Sanchez on 12-17-2024 RBC (Bld) [#/Vol] 4.61 10*6/uL 4.2-5.4 [facility] Serum creatinine measurement (mass/volume)Ordered By: Joe Sanchez on 12-17-2024 Creatinine [Mass/Vol] 1.71 mg/dL High 0.70-1.20 [facility] Serum glucose measurement (m ass/volume)Ordered By: Joe Sanchez on 12-17-2024 Glucose [Mass/Vol] 89 mg/dL 70-99 [facility] Serum or plasma calcium leah urement (mass/volume)Ordered By: Joe Sanchez on 12-17-2024 Calcium [Mass/Vol] 9.4 mg/dL 7.6-11.0 [facility] Serum or plasma urea nitroge n measurement (mass/volume)Ordered By: Joe Sanchez on 12-17-2024 Urea nitrogen [Mass/Vol] 32 mg/dL High 4-19 [facility] Sodium levelOrdered By: Yudi Sanchez on 12-17-2024 Sodium [Moles/Vol] 140 mmol/L 133-145 [facility] White blood cell (WBC) count Ordered By: Joe Sanchez on 12-17-2024 WBC (Bld) [#/Vol] 7.2 10*3/uL 4.4-11.0 [facility] Absolute lymphocyte countOrd ered By: Joe Morrisawaismilton on 11-19-2024 Lymphocytes Auto (Unsp spec) [#/Vol] 1.50 10*3/uL 0.83-4.51 [facility] Absolute neutrophil countOrd ered By: Yudimelissalynnette Morrisawaismilton on 11-19-2024 Neutrophils (Bld) [#/Vol] 4.4 10*3/uL 2.0-7.7 [facility] Anion gap in Serum or Plasma Ordered By: Joe Sanchez on 11-19-2024 Anion gap [Moles/Vol] 11 mmol/L 5-15 [facility] Automated lymphocyte count a s percentage of total leukocytesOrdered By: Joe Sanchez on 11-19-2024 Lymphocytes/100 WBC Auto (Unsp spec) 22.4 % 19-41 [facility] BUN/creatinine ratioOrdered By: Joe Sanchez on 11-19-2024 Urea nitrogen/Creatinine [Mass ratio] 14.0 mg/mg 10-20 [facility] Basophil percentageOrdered B y: Joe Morrisawaismilton on 11-19-2024 Basophils/100 WBC (Bld) 1.0 % 0-1 [facility] Carbon dioxide, total [Moles /volume] in Central venous bloodOrdered By: Joe Sanchez on 11-19-2024 CO2 [Moles/Vol] 25.7 mmol/L 21.0-32.0 [facility] Chloride assayOrdered By: Lluvia Sanchez on 11-19-2024 Chloride [Moles/Vol] 101 mmol/L 98-108 [facility] Eosinophil percentageOrdered By: Joe Morrisawaismilton on 11-19-2024 Eosinophils/100 WBC (Bld) 1.6 % 0-5 [facility] Erythrocyte distribution wid th ratioOrdered By: Joe Sanchez on 11-19-2024 Erythrocyte distribution width (RBC) [Ratio] 13.6 % 11.6-14.6 [facility] Erythrocyte distribution wid th standard deviationOrdered By: Joe Sanchez on 11-19-2024 Erythrocyte distribution width (RBC) [Ratio] 48.4 fl High 35.1-43.9 [facility] Glomerular filtration rate ( GFR) estimation/1.73 sq m using serum, plasma, or whole bOrdered By: Joe Sanchez on 11-19-2024 GFR/1.73 sq M.predicted among non-blacks MDRD (S/P/Bld) [Vol rate/Area] 28 mL/min/{1.73_m2} Low >60 [facility] Comment on above: mL/min/1.73m2 CKD-EP I Creatinine Equation (2020) Hematocrit Auto (Bld) [Volum e fraction]Ordered By: Joe Sanchez on 11-19-2024 Hematocrit (Bld) [Volume fraction] 40.8 % 37-47 [facility] Hemoglobin measurementOrdere d By: Joe Sanchez on 11-19-2024 Hemoglobin (Bld) [Mass/Vol] 13.4 g/dL 12.0-15.0 [facility] Immature granulocytes/100 WB C Auto (Bld)Ordered By: Joe Sanchez on 11-19-2024 Immature granulocytes/100 WBC (Bld) 0.400 % 0.0-0.9 [facility] Comment on above: IG% - Immature Granu locytes (promyelocytes, myelocytes and metamyelocytes) > 1% indicates that a LEFT SHIFT is Present. MCV (mean corpuscular volume ) determinationOrdered By: Joe Sanchez on 11-19-2024 MCV (RBC) [Entitic vol] 96.5 fL 81-99 [facility] Mean corpuscular hemoglobin (MCH) determinationOrdered By: Joe Sanchez on 11-19-2024 MCH (RBC) [Entitic mass] 31.7 pg 27.0-32.0 [facility] Mean corpuscular hemoglobin concentration (MCHC) determinationOrdered By: Joe Sanchez on 11-19-2024 MCHC (RBC) [Mass/Vol] 32.8 g/dL 32-36 [facility] Mean platelet volume determi nationOrdered By: Joe Sanchez on 11-19-2024 Platelet mean volume (Bld) [Entitic vol] 11.9 fL 6.2-12.0 [facility] Monocyte percentageOrdered B y: Joe Sanchez on 11-19-2024 Monocytes/100 WBC (Bld) 8.7 % 0-10 [facility] Neutrophil percentageOrdered By: Joe Sanchez on 11-19-2024 Neutrophils/100 WBC (Bld) 65.9 % 47-70 [facility] Nucleated red blood cell per centageOrdered By: Joe Sanchez on 11-19-2024 Nucleated RBC/100 WBC (Bld) [Ratio] 0 % 0-5 [facility] Platelet countOrdered By: Lluvia Sanchez on 11-19-2024 Platelets (Bld) [#/Vol] 230 10*3/uL 150-450 [facility] Potassium measurement (mass/ volume)Ordered By: Joe Sanchez on 11-19-2024 Potassium (Unsp spec) [Mass/Vol] 4.4 mmol/L 3.3-5.1 [facility] Comment on above: Hemolysis present, R esults could be affected. RBC Auto (Bld) [#/Vol]Ordere d By: Joe Sanchez on 11-19-2024 RBC (Bld) [#/Vol] 4.23 10*6/uL 4.2-5.4 [facility] Serum creatinine measurement (mass/volume)Ordered By: Joe Sanchez on 11-19-2024 Creatinine [Mass/Vol] 1.77 mg/dL High 0.70-1.20 [facility] Serum glucose measurement (m ass/volume)Ordered By: Joe Sanchez on 11-19-2024 Glucose [Mass/Vol] 99 mg/dL 70-99 [facility] Serum or plasma calcium leah urement (mass/volume)Ordered By: Joe Sanchez on 11-19-2024 Calcium [Mass/Vol] 9.2 mg/dL 7.6-11.0 [facility] Serum or plasma urea nitroge n measurement (mass/volume)Ordered By: Joe Sanchez on 11-19-2024 Urea nitrogen [Mass/Vol] 25 mg/dL High 4-19 [facility] Sodium levelOrdered By: Yudi Sanchez on 11-19-2024 Sodium [Moles/Vol] 138 mmol/L 133-145 [facility] White blood cell (WBC) count Ordered By: Joe Sanchez on 11-19-2024 WBC (Bld) [#/Vol] 6.7 10*3/uL 4.4-11.0 [facility] Absolute lymphocyte countOrd ered By: Lluviaclaudiokayleigh Arturohans on 10-22-2024 Lymphocytes Auto (Unsp spec) [#/Vol] 1.30 10*3/uL 0.83-4.51 [facility] Absolute neutrophil countOrd ered By: Joe Sanchez on 10-22-2024 Neutrophils (Bld) [#/Vol] 4.4 10*3/uL 2.0-7.7 [facility] Anion gap in Serum or Plasma Ordered By: Lluviaclaudiokayleigh Arturoawaismilton on 10-22-2024 Anion gap [Moles/Vol] 12 mmol/L 5-15 [facility] Automated lymphocyte count a s percentage of total leukocytesOrdered By: Joe Arturoawaismilton on 10-22-2024 Lymphocytes/100 WBC Auto (Unsp spec) 19.9 % 19-41 [facility] BUN/creatinine ratioOrdered By: Lluviaclaudiokayleigh Arturohans on 10-22-2024 Urea nitrogen/Creatinine [Mass ratio] 17.5 mg/mg 10-20 [facility] Basophil percentageOrdered B y: Joe Arturoawaismilton on 10-22-2024 Basophils/100 WBC (Bld) 0.9 % 0-1 [facility] Carbon dioxide, total [Moles /volume] in Central venous bloodOrdered By: Lluviaclaudiomelissalynnette Morrisawaismilton on 10-22-2024 CO2 [Moles/Vol] 26.4 mmol/L 21.0-32.0 [facility] Chloride assayOrdered By: Lluvia claudiokayleigh Morrisawaismilton on 10-22-2024 Chloride [Moles/Vol] 99 mmol/L 98-108 [facility] Eosinophil percentageOrdered By: Joe Morrisawaismilton on 10-22-2024 Eosinophils/100 WBC (Bld) 2.3 % 0-5 [facility] Erythrocyte distribution wid th ratioOrdered By: Joe Sanchez on 10-22-2024 Erythrocyte distribution width (RBC) [Ratio] 13.5 % 11.6-14.6 [facility] Erythrocyte distribution wid th standard deviationOrdered By: Joe Sanchez on 10-22-2024 Erythrocyte distribution width (RBC) [Ratio] 49.2 fl High 35.1-43.9 [facility] Glomerular filtration rate ( GFR) estimation/1.73 sq m using serum, plasma, or whole bOrdered By: Joe Sanchez on 10-22-2024 GFR/1.73 sq M.predicted among non-blacks MDRD (S/P/Bld) [Vol rate/Area] 28 mL/min/{1.73_m2} Low >60 [facility] Comment on above: mL/min/1.73m2 CKD-EP I Creatinine Equation (2020) Hematocrit Auto (Bld) [Volum e fraction]Ordered By: Joe Sanchez on 10-22-2024 Hematocrit (Bld) [Volume fraction] 40.3 % 37-47 [facility] Hemoglobin measurementOrdere d By: Joe Sanchez on 10-22-2024 Hemoglobin (Bld) [Mass/Vol] 13.1 g/dL 12.0-15.0 [facility] Immature granulocytes/100 WB C Auto (Bld)Ordered By: Joe Sanchez on 10-22-2024 Immature granulocytes/100 WBC (Bld) 0.600 % 0.0-0.9 [facility] Comment on above: IG% - Immature Granu locytes (promyelocytes, myelocytes and metamyelocytes) > 1% indicates that a LEFT SHIFT is Present. MCV (mean corpuscular volume ) determinationOrdered By: Joe Sanchez on 10-22-2024 MCV (RBC) [Entitic vol] 98.1 fL 81-99 [facility] Mean corpuscular hemoglobin (MCH) determinationOrdered By: Joe Sanchez 10-22-2024 MCH (RBC) [Entitic mass] 31.9 pg 27.0-32.0 [facility] Mean corpuscular hemoglobin concentration (MCHC) determinationOrdered By: Joe Sanchez on 10-22-2024 MCHC (RBC) [Mass/Vol] 32.5 g/dL 32-36 [facility] Mean platelet volume determi nationOrdered By: Joe Sanchez on 10-22-2024 Platelet mean volume (Bld) [Entitic vol] 12.5 fL High 6.2-12.0 [facility] Monocyte percentageOrdered B y: Joe Sanchez on 10-22-2024 Monocytes/100 WBC (Bld) 9.0 % 0-10 [facility] Neutrophil percentageOrdered By: Joe Sanchez on 10-22-2024 Neutrophils/100 WBC (Bld) 67.3 % 47-70 [facility] Nucleated red blood cell per centageOrdered By: Joe Sanchez on 10-22-2024 Nucleated RBC/100 WBC (Bld) [Ratio] 0 % 0-5 [facility] Platelet countOrdered By: Lluvia Sanchez on 10-22-2024 Platelets (Bld) [#/Vol] 222 10*3/uL 150-450 [facility] Potassium measurement (mass/ volume)Ordered By: Joe Sanchez on 10-22-2024 Potassium (Unsp spec) [Mass/Vol] 4.0 mmol/L 3.3-5.1 [facility] Comment on above: Hemolysis present, R esults could be affected. RBC Auto (Bld) [#/Vol]Ordere d By: Joe Sanchez on 10-22-2024 RBC (Bld) [#/Vol] 4.11 10*6/uL Low 4.2-5.4 [facility] Serum creatinine measurement (mass/volume)Ordered By: Joe Sanchez on 10-22-2024 Creatinine [Mass/Vol] 1.80 mg/dL High 0.70-1.20 [facility] Serum glucose measurement (m ass/volume)Ordered By: Joe Sanchez on 10-22-2024 Glucose [Mass/Vol] 113 mg/dL High 70-99 [facility] Serum or plasma calcium leah urement (mass/volume)Ordered By: Joe Sanchez on 10-22-2024 Calcium [Mass/Vol] 9.2 mg/dL 7.6-11.0 [facility] Serum or plasma urea nitroge n measurement (mass/volume)Ordered By: Joe Sanchez on 10-22-2024 Urea nitrogen [Mass/Vol] 32 mg/dL High 4-19 [facility] Sodium levelOrdered By: Yudi Sanchez on 10-22-2024 Sodium [Moles/Vol] 138 mmol/L 133-145 [facility] White blood cell (WBC) count Ordered By: Joe Sanchez on 10-22-2024 WBC (Bld) [#/Vol] 6.5 10*3/uL 4.4-11.0 [facility] Bilirubin directOrdered By: Joe Sanchez on 10-07-2024 Bilirubin.direct [Mass/Vol] 0.35 mg/dL High 0.00-0.30 [facility] Bilirubin, totalOrdered By: Joe Sanchez on 10-07-2024 Bilirubin [Mass/Vol] 0.93 mg/dL 0.00-1.30 [facility] Calculated very low density lipoprotein (VLDL) cholesterol measurementOrdered By: Joe Sanchez on 10-07-2024 Calculated very low density lipoprotein (VLDL) cholesterol measurement 18 mg/dL 5-40 [facility] Hemoglobin A1c percentageOrd ered By: Joe Sanchez on 10-07-2024 HbA1c (Bld) [Mass fraction] 5.4 % <5.7 [facility] Comment on above: Normal < 5.7 % Predi abetic 5.7 - 6.4 % Diabetic >or= 6.5 % Please note range changes. LDL calc ser/plasOrdered By: Joe Sanchez on 10-07-2024 Cholesterol in LDL [Mass/Vol] 54 mg/dL [facility] Comment on above: Dzemamotth=899-032 m g/dL & Higher Rxbs=941 mg/dL or greater Laboratory - Chemistry and C hemistry - challengeOrdered By: Joe Sanchez on 10-07-2024 AST [Catalytic activity/Vol] 21 U/L <32 [facility] Screening total cholesterol/ high density lipoprotein (HDL) cholesterol ratioOrdered By: Joe Sanchez on 10-07-2024 Cholesterol.total/Shannon sterol in HDL [Mass ratio] 2.90 {ratio} [facility] Serum globulin measurementOr dered By: Joe Sanchez on 10-07-2024 Globulin (S) [Mass/Vol] 3.2 g/dL 2.2-4.2 [facility] Serum or plasma alanine kilpatrick otransferase (ALT) measurementOrdered By: Joe Sanchez on 10-07-2024 ALT [Catalytic activity/Vol] U/L <35 [facility] Serum or plasma albumin leah urement (mass/volume)Ordered By: Joe Sanchez 10-07-2024 Albumin [Mass/Vol] 3.3 g/dL Low 3.4-4.8 [facility] Serum or plasma alkaline kirti sphatase measurementOrdered By: Joe Sanchez 10-07-2024 ALP [Catalytic activity/Vol] 64 U/L 35-104 [facility] Serum or plasma cholesterol in HDL measurement (mass/volume)Ordered By: Joe Sanchez 10-07-2024 Cholesterol in HDL [Mass/Vol] 38 mg/dL Low >40 [facility] Comment on above: National Cholesterol Education Program (NCEP) guidelines:<40 mg/dL: Low HDL-cholesterol (major risk factor for CHD)>= 60 mg/dL: High HDL-cholesterol (negative risk factor for CHD)HDL-cholesterol is affected by a number of factors, e.g. smoking, exercise, hormones, sex and age. Serum or plasma cholesterol measurement (mass/volume)Ordered By: Joe Sanchez on 10-07-2024 Cholesterol [Mass/Vol] 111 mg/dL <201 [facility] Comment on above: Cholesterol level, D esirable <200 mg/dLBorderline high cholesterol 200-239 mg/dLHigh cholesterol >=240 mg/dLRecommendations of the NCEP Adult Treatment Panel for the following risk-cutoff thresholds for the [place] population. Total proteinOrdered By: Constantin Sanchez on 10-07-2024 Protein [Mass/Vol] 6.5 g/dL 5.9-8.4 [facility] Triglycerides measurementOrd ered By: Joe Sanchez on 10-07-2024 Triglyceride [Mass/Vol] 92 mg/dL <199 [facility] Comment on above: The drugs N-Acetylcy steine and Metamizole may falsely depress this assay. Normal range: <150 mg/dLBorderline High: 150-199 mg/dLHigh: 200-499 mg/dLVery High: >500 mg/dL Absolute lymphocyte countOrd ered By: Joe Sanchez on 09-24-2024 Lymphocytes Auto (Unsp spec) [#/Vol] 1.76 10*3/uL 0.83-4.51 [facility] Absolute neutrophil countOrd ered By: Joe Sanchez on 09-24-2024 Neutrophils (Bld) [#/Vol] 4.6 10*3/uL 2.0-7.7 [facility] Anion gap in Serum or Plasma Ordered By: Joe Sanchez on 09-24-2024 Anion gap [Moles/Vol] 13 mmol/L 5-15 [facility] Automated lymphocyte count a s percentage of total leukocytesOrdered By: Joe Sanchez on 09-24-2024 Lymphocytes/100 WBC Auto (Unsp spec) 23.7 % 19-41 [facility] BUN/creatinine ratioOrdered By: Joe Sanchez on 09-24-2024 Urea nitrogen/Creatinine [Mass ratio] 15.6 mg/mg 10-20 [facility] Basophil percentageOrdered B y: Joe Sanchez on 09-24-2024 Basophils/100 WBC (Bld) 1.3 % High 0-1 [facility] Carbon dioxide, total [Moles /volume] in Central venous bloodOrdered By: Joe Sanchez on 09-24-2024 CO2 [Moles/Vol] 26.0 mmol/L 21.0-32.0 [facility] Chloride assayOrdered By: Lluvia Sanchez on 09-24-2024 Chloride [Moles/Vol] 99 mmol/L 98-108 [facility] Eosinophil percentageOrdered By: Joe Sanchez on 09-24-2024 Eosinophils/100 WBC (Bld) 1.7 % 0-5 [facility] Erythrocyte distribution wid th ratioOrdered By: Joe Sanchez on 09-24-2024 Erythrocyte distribution width (RBC) [Ratio] 13.6 % 11.6-14.6 [facility] Erythrocyte distribution wid th standard deviationOrdered By: Joe Sanhcez on 09-24-2024 Erythrocyte distribution width (RBC) [Ratio] 48.6 fl High 35.1-43.9 [facility] Glomerular filtration rate ( GFR) estimation/1.73 sq m using serum, plasma, or whole bOrdered By: Yudiclimaxlynnette Sanchez on 09-24-2024 GFR/1.73 sq M.predicted among non-blacks MDRD (S/P/Bld) [Vol rate/Area] 28 mL/min/{1.73_m2} Low >60 [facility] Comment on above: mL/min/1.73m2 CKD-EP I Creatinine Equation (2020) Hematocrit Auto (Bld) [Volum e fraction]Ordered By: Joe Sanchez on 09-24-2024 Hematocrit (Bld) [Volume fraction] 42.5 % 37-47 [facility] Hemoglobin measurementOrdere d By: Joe Sanchez on 09-24-2024 Hemoglobin (Bld) [Mass/Vol] 14.1 g/dL 12.0-15.0 [facility] Immature granulocytes/100 WB C Auto (Bld)Ordered By: Joe Sanchez 09-24-2024 Immature granulocytes/100 WBC (Bld) 0.700 % 0.0-0.9 [facility] Comment on above: IG% - Immature Granu locytes (promyelocytes, myelocytes and metamyelocytes) > 1% indicates that a LEFT SHIFT is Present. MCV (mean corpuscular volume ) determinationOrdered By: Joe Sanchez on 09-24-2024 MCV (RBC) [Entitic vol] 97.5 fL 81-99 [facility] Mean corpuscular hemoglobin (MCH) determinationOrdered By: Joe Sanchez 09-24-2024 MCH (RBC) [Entitic mass] 32.3 pg High 27.0-32.0 [facility] Mean corpuscular hemoglobin concentration (MCHC) determinationOrdered By: Joe Sanchez on 09-24-2024 MCHC (RBC) [Mass/Vol] 33.2 g/dL 32-36 [facility] Mean platelet volume determi nationOrdered By: Joe Sanchez on 09-24-2024 Platelet mean volume (Bld) [Entitic vol] 12.3 fL High 6.2-12.0 [facility] Monocyte percentageOrdered B y: Joe Sanchez on 09-24-2024 Monocytes/100 WBC (Bld) 10.8 % High 0-10 [facility] Neutrophil percentageOrdered By: Joe Sanchez on 09-24-2024 Neutrophils/100 WBC (Bld) 61.8 % 47-70 [facility] Nucleated red blood cell per centageOrdered By: Joe Sanchez on 09-24-2024 Nucleated RBC/100 WBC (Bld) [Ratio] 0 % 0-5 [facility] Platelet countOrdered By: Lluvia genelynnette Sanchez on 09-24-2024 Platelets (Bld) [#/Vol] 204 10*3/uL 150-450 [facility] Potassium measurement (mass/ volume)Ordered By: Joe Sanchez on 09-24-2024 Potassium (Unsp spec) [Mass/Vol] 4.3 mmol/L 3.3-5.1 [facility] Comment on above: Hemolysis present, R esults could be affected. RBC Auto (Bld) [#/Vol]Ordere d By: Joe Sanchez on 09-24-2024 RBC (Bld) [#/Vol] 4.36 10*6/uL 4.2-5.4 [facility] [place] Serum creatinine measurement (mass/volume)Ordered By: Joe Sanchez on 09-24-2024 Creatinine [Mass/Vol] 1.76 mg/dL High 0.70-1.20 [facility] Serum glucose measurement (m ass/volume)Ordered By: Joe Sanchez on 09-24-2024 Glucose [Mass/Vol] 86 mg/dL 70-99 [facility] Serum or plasma calcium leah urement (mass/volume)Ordered By: Joe Chaumilton on 09-24-2024 Calcium [Mass/Vol] 9.6 mg/dL 7.6-11.0 [facility] Serum or plasma urea nitroge n measurement (mass/volume)Ordered By: Joe Chaumilton on 09-24-2024 Urea nitrogen [Mass/Vol] 28 mg/dL High 4-19 [facility] Sodium levelOrdered By: Yudi Chaumilton on 09-24-2024 Sodium [Moles/Vol] 139 mmol/L 133-145 [facility] White blood cell (WBC) count Ordered By: Joe Arturoawaismilton on 09-24-2024 WBC (Bld) [#/Vol] 7.4 10*3/uL 4.4-11.0 [facility] Absolute lymphocyte countOrd ered By: Joe Arturoawaismilton on 08-27-2024 Lymphocytes Auto (Unsp spec) [#/Vol] 1.87 10*3/uL 0.83-4.51 [facility] Absolute neutrophil countOrd ered By: Joe Sanchez on 08-27-2024 Neutrophils (Bld) [#/Vol] 4.2 10*3/uL 2.0-7.7 [facility] Anion gap in Serum or Plasma Ordered By: Joe Arturoawaismilton on 08-27-2024 Anion gap [Moles/Vol] 12 mmol/L 5-15 [facility] Automated lymphocyte count a s percentage of total leukocytesOrdered By: Lluviaclaudiomelissalynnette Morrisawaismilton on 08-27-2024 Lymphocytes/100 WBC Auto (Unsp spec) 27.1 % 19-41 [facility] BUN/creatinine ratioOrdered By: Joe Arturoawaismilton on 08-27-2024 Urea nitrogen/Creatinine [Mass ratio] 15.0 mg/mg 10-20 [facility] Basophil percentageOrdered B y: Joaquinlynnette Morrisawaismilton on 08-27-2024 Basophils/100 WBC (Bld) 1.0 % 0-1 [facility] Carbon dioxide, total [Moles /volume] in Central venous bloodOrdered By: Joe Sanchez on 08-27-2024 CO2 [Moles/Vol] 27.3 mmol/L 21.0-32.0 [facility] Chloride assayOrdered By: Lluvia Sanchez on 08-27-2024 Chloride [Moles/Vol] 99 mmol/L 98-108 [facility] Eosinophil percentageOrdered By: montez Sanchez on 08-27-2024 Eosinophils/100 WBC (Bld) 2.0 % 0-5 [facility] Erythrocyte distribution wid th ratioOrdered By: [facility]ally[facility]nette Sanchez on 08-27-2024 Erythrocyte distribution width (RBC) [Ratio] 13.7 % 11.6-14.6 [facility] Erythrocyte distribution wid th standard deviationOrdered By: [facility] Sanchez on 08-27-2024 Erythrocyte distribution width (RBC) [Ratio] 49.1 fl High 35.1-43.9 [facility] Glomerular filtration rate ( GFR) estimation/1.73 sq m using serum, plasma, or whole bOrdered By: Joe Sanchez on 08-27-2024 GFR/1.73 sq M.predicted among non-blacks MDRD (S/P/Bld) [Vol rate/Area] 29 mL/min/{1.73_m2} Low >60 [facility] Comment on above: mL/min/1.73m2 CKD-EP I Creatinine Equation (2020) Hematocrit Auto (Bld) [Volum e fraction]Ordered By: monetz Sanchez on 08-27-2024 Hematocrit (Bld) [Volume fraction] 42.3 % 37-47 [facility] Hemoglobin measurementOrdere d By: montez Sanchez on 08-27-2024 Hemoglobin (Bld) [Mass/Vol] 13.8 g/dL 12.0-15.0 [facility] Immature granulocytes/100 WB C Auto (Bld)Ordered By: Joe Sanchez on 08-27-2024 Immature granulocytes/100 WBC (Bld) 0.400 % 0.0-0.9 [facility] Comment on above: IG% - Immature Granu locytes (promyelocytes, myelocytes and metamyelocytes) > 1% indicates that a LEFT SHIFT is Present. MCV (mean corpuscular volume ) determinationOrdered By: Joe Sanchez on 08-27-2024 MCV (RBC) [Entitic vol] 96.8 fL 81-99 [facility] Mean corpuscular hemoglobin (MCH) determinationOrdered By: Joe Sanchez on 08-27-2024 MCH (RBC) [Entitic mass] 31.6 pg 27.0-32.0 [facility] Mean corpuscular hemoglobin concentration (MCHC) determinationOrdered By: Joe Sanchez on 08-27-2024 MCHC (RBC) [Mass/Vol] 32.6 g/dL 32-36 [facility] Mean platelet volume determi nationOrdered By: Joe Sanchez on 08-27-2024 Platelet mean volume (Bld) [Entitic vol] 12.5 fL High 6.2-12.0 [facility] Monocyte percentageOrdered B y: Joe Sanchez on 08-27-2024 Monocytes/100 WBC (Bld) 9.4 % 0-10 [facility] Neutrophil percentageOrdered By: Joe Sanchez on 08-27-2024 Neutrophils/100 WBC (Bld) 60.1 % 47-70 [facility] Nucleated red blood cell per centageOrdered By: Joe Sanchez on 08-27-2024 Nucleated RBC/100 WBC (Bld) [Ratio] 0 % 0-5 [facility] Platelet countOrdered By: Lluvia claudiokayleigh Sanchez on 08-27-2024 Platelets (Bld) [#/Vol] 196 10*3/uL 150-450 [facility] Potassium measurement (mass/ volume)Ordered By: Joe Sanchez on 08-27-2024 Potassium (Unsp spec) [Mass/Vol] 4.1 mmol/L 3.3-5.1 [facility] RBC Auto (Bld) [#/Vol]Ordere d By: Joe Sanchez on 08-27-2024 RBC (Bld) [#/Vol] 4.37 10*6/uL 4.2-5.4 [facility] [place] Serum creatinine measurement (mass/volume)Ordered By: Joe Sanchez on 08-27-2024 Creatinine [Mass/Vol] 1.74 mg/dL High 0.70-1.20 [facility] Serum glucose measurement (m ass/volume)Ordered By: Joe Sanchez on 08-27-2024 Glucose [Mass/Vol] 103 mg/dL High 70-99 [facility] Serum or plasma calcium leah urement (mass/volume)Ordered By: Joe Sanchez on 08-27-2024 Calcium [Mass/Vol] 9.5 mg/dL 7.6-11.0 [facility] Serum or plasma urea nitroge n measurement (mass/volume)Ordered By: Joe Sanchez on 08-27-2024 Urea nitrogen [Mass/Vol] 26 mg/dL High 4-19 [facility] Sodium levelOrdered By: Yudi Sanchez on 08-27-2024 Sodium [Moles/Vol] 138 mmol/L 133-145 [facility] White blood cell (WBC) count Ordered By: Joe Sanchez on 08-27-2024 WBC (Bld) [#/Vol] 6.9 10*3/uL 4.4-11.0 [facility] Absolute lymphocyte countOrd ered By: Joe Sanchez on 07-30-2024 Lymphocytes Auto (Unsp spec) [#/Vol] 1.85 10*3/uL 0.83-4.51 [facility] Absolute neutrophil countOrd ered By: Joe Sanchez on 07-30-2024 Neutrophils (Bld) [#/Vol] 3.8 10*3/uL 2.0-7.7 [facility] Anion gap in Serum or Plasma Ordered By: Joe Sanchez on 07-30-2024 Anion gap [Moles/Vol] 12 mmol/L 5-15 [facility] Automated lymphocyte count a s percentage of total leukocytesOrdered By: Joe Sanchez on 07-30-2024 Lymphocytes/100 WBC Auto (Unsp spec) 28.5 % 19-41 [facility] BUN/creatinine ratioOrdered By: Joe Sanchez on 07-30-2024 Urea nitrogen/Creatinine [Mass ratio] 14.9 mg/mg 10-20 [facility] Basophil percentageOrdered B y: Joe Sanchez on 07-30-2024 Basophils/100 WBC (Bld) 1.1 % High 0-1 [facility] Carbon dioxide, total [Moles /volume] in Central venous bloodOrdered By: Joe Arturohans on 07-30-2024 CO2 [Moles/Vol] 26.5 mmol/L 21.0-32.0 [facility] Chloride assayOrdered By: Lluvia montez Arturoawaismilton on 07-30-2024 Chloride [Moles/Vol] 100 mmol/L 98-108 [facility] Eosinophil percentageOrdered By: Joe Sanchez on 07-30-2024 Eosinophils/100 WBC (Bld) 1.8 % 0-5 [facility] Erythrocyte distribution wid th ratioOrdered By: claudioclimaxlynnette Arturohans on 07-30-2024 Erythrocyte distribution width (RBC) [Ratio] 14.2 % 11.6-14.6 [facility] Erythrocyte distribution wid th standard deviationOrdered By: claudioclimaxlynnette Sanchez on 07-30-2024 Erythrocyte distribution width (RBC) [Ratio] 52.9 fl High 35.1-43.9 [facility] Glomerular filtration rate ( GFR) estimation/1.73 sq m using serum, plasma, or whole bOrdered By: Joe Sanchez on 07-30-2024 GFR/1.73 sq M.predicted among non-blacks MDRD (S/P/Bld) [Vol rate/Area] 26 mL/min/{1.73_m2} Low >60 [facility] Comment on above: mL/min/1.73m2 CKD-EP I Creatinine Equation (2020) Hematocrit Auto (Bld) [Volum e fraction]Ordered By: Lluviaclaudiomelissalynnette Sanchez on 07-30-2024 Hematocrit (Bld) [Volume fraction] 41.4 % 37-47 [facility] Hemoglobin measurementOrdere d By: Lluviaclaudiokayleigh Arturoawaismilton on 07-30-2024 Hemoglobin (Bld) [Mass/Vol] 13.5 g/dL 12.0-15.0 [facility] Immature granulocytes/100 WB C Auto (Bld)Ordered By: Joe Sanchez on 07-30-2024 Immature granulocytes/100 WBC (Bld) 0.800 % 0.0-0.9 [facility] Comment on above: IG% - Immature Granu locytes (promyelocytes, myelocytes and metamyelocytes) > 1% indicates that a LEFT SHIFT is Present. MCV (mean corpuscular volume ) determinationOrdered By: oJe Sanchez on 07-30-2024 MCV (RBC) [Entitic vol] 102.7 fL High 81-99 [facility] Mean corpuscular hemoglobin (MCH) determinationOrdered By: Joe Sanchez on 07-30-2024 MCH (RBC) [Entitic mass] 33.5 pg High 27.0-32.0 [facility] Mean corpuscular hemoglobin concentration (MCHC) determinationOrdered By: Joe Sanchez on 07-30-2024 MCHC (RBC) [Mass/Vol] 32.6 g/dL 32-36 [facility] Mean platelet volume determi nationOrdered By: Joe Sanchez on 07-30-2024 Platelet mean volume (Bld) [Entitic vol] 11.8 fL 6.2-12.0 [facility] Monocyte percentageOrdered B y: Joe Sanchez on 07-30-2024 Monocytes/100 WBC (Bld) 9.2 % 0-10 [facility] Neutrophil percentageOrdered By: Joe Sanchez on 07-30-2024 Neutrophils/100 WBC (Bld) 58.6 % 47-70 [facility] Nucleated red blood cell per centageOrdered By: Joe Sanchez on 07-30-2024 Nucleated RBC/100 WBC (Bld) [Ratio] 0 % 0-5 [facility] Platelet countOrdered By: Lluvia Sanchez on 07-30-2024 Platelets (Bld) [#/Vol] 167 10*3/uL 150-450 [facility] Potassium measurement (mass/ volume)Ordered By: Joe Sanchez on 07-30-2024 Potassium (Unsp spec) [Mass/Vol] 4.3 mmol/L 3.3-5.1 [facility] Comment on above: Hemolysis present, R esults could be affected. RBC Auto (Bld) [#/Vol]Ordere d By: Joe Sanchez on 07-30-2024 RBC (Bld) [#/Vol] 4.03 10*6/uL Low 4.2-5.4 [facility] [place] Serum creatinine measurement (mass/volume)Ordered By: Joe Sanchez on 07-30-2024 Creatinine [Mass/Vol] 1.87 mg/dL High 0.70-1.20 [facility] Serum glucose measurement (m ass/volume)Ordered By: Joe Sanchez on 07-30-2024 Glucose [Mass/Vol] 89 mg/dL 70-99 [facility] Serum or plasma calcium leah urement (mass/volume)Ordered By: Joe Sanchez on 07-30-2024 Calcium [Mass/Vol] 9.4 mg/dL 7.6-11.0 [facility] Serum or plasma urea nitroge n measurement (mass/volume)Ordered By: Joe Sanchez on 07-30-2024 Urea nitrogen [Mass/Vol] 28 mg/dL High 4-19 [facility] Sodium levelOrdered By: Yudi Sanchez on 07-30-2024 Sodium [Moles/Vol] 138 mmol/L 133-145 [facility] White blood cell (WBC) count Ordered By: Joe Sanchez on 07-30-2024 WBC (Bld) [#/Vol] 6.5 10*3/uL 4.4-11.0 [facility] Bilirubin directOrdered By: Joe Sanchez on 07-15-2024 Bilirubin.direct [Mass/Vol] 0.26 mg/dL 0.00-0.30 [facility] Bilirubin, totalOrdered By: Joe Sanchez on 07-15-2024 Bilirubin [Mass/Vol] 0.62 mg/dL 0.00-1.30 [facility] Calculated very low density lipoprotein (VLDL) cholesterol measurementOrdered By: Joe Sanchez on 07-15-2024 Calculated very low density lipoprotein (VLDL) cholesterol measurement 20 mg/dL 5-40 [facility] Hemoglobin A1c percentageOrd ered By: Joe Sanchez on 07-15-2024 HbA1c (Bld) [Mass fraction] 5.5 % <5.7 [facility] Comment on above: Normal < 5.7 % Predi abetic 5.7 - 6.4 % Diabetic >or= 6.5 % Please note range changes. LDL calc ser/plasOrdered By: Joe Sanchez on 07-15-2024 Cholesterol in LDL [Mass/Vol] 86 mg/dL [facility] Comment on above: Paszmdogco=497-954 m g/dL & [place]=916 mg/dL or greater Laboratory - Chemistry and C hemistry - challengeOrdered By: Joe Sanchez on 07-15-2024 AST [Catalytic activity/Vol] 19 U/L <32 [facility] Screening total cholesterol/ high density lipoprotein (HDL) cholesterol ratioOrdered By: Joe Sanchez on 07-15-2024 Cholesterol.total/Shannon sterol in HDL [Mass ratio] 3.91 {ratio} [facility] Serum globulin measurementOr dered By: Joe Sanchez on 07-15-2024 Globulin (S) [Mass/Vol] 3.2 g/dL 2.2-4.2 [facility] Serum or plasma alanine kilpatrick otransferase (ALT) measurementOrdered By: Joe Sanchez on 07-15-2024 ALT [Catalytic activity/Vol] 7 U/L <35 [facility] Serum or plasma albumin leah urement (mass/volume)Ordered By: Joe Sanchez on 07-15-2024 Albumin [Mass/Vol] 3.4 g/dL 3.4-4.8 [facility] Serum or plasma alkaline kirti sphatase measurementOrdered By: Joe Sanchez 07-15-2024 ALP [Catalytic activity/Vol] 67 U/L 35-104 [facility] Serum or plasma cholesterol in HDL measurement (mass/volume)Ordered By: Joe Sanchez on 07-15-2024 Cholesterol in HDL [Mass/Vol] 36 mg/dL Low >40 [facility] Comment on above: National Cholesterol Education Program (NCEP) guidelines:<40 mg/dL: Low HDL-cholesterol (major risk factor for CHD)>= 60 mg/dL: High HDL-cholesterol (negative risk factor for CHD)HDL-cholesterol is affected by a number of factors, e.g. smoking, exercise, hormones, sex and age. Serum or plasma cholesterol measurement (mass/volume)Ordered By: Joe Sanchez on 07-15-2024 Cholesterol [Mass/Vol] 142 mg/dL <201 [facility] Comment on above: Cholesterol level, D esirable <200 mg/dLBorderline high cholesterol 200-239 mg/dLHigh cholesterol >=240 mg/dLRecommendations of the NCEP Adult Treatment Panel for the following risk-cutoff thresholds for the [place] population. Total proteinOrdered By: Constantin Sanchez on 07-15-2024 Protein [Mass/Vol] 6.7 g/dL 5.9-8.4 [facility] Triglycerides measurementOrd ered By: Joe Sanchez on 07-15-2024 Triglyceride [Mass/Vol] 101 mg/dL <199 [facility] Comment on above: The drugs N-Acetylcy steine and Metamizole may falsely depress this assay. Normal range: <150 mg/dLBorderline High: 150-199 mg/dLHigh: 200-499 mg/dLVery High: >500 mg/dL Absolute lymphocyte countOrd ered By: Joe Sanchez on 07-02-2024 Lymphocytes Auto (Unsp spec) [#/Vol] 1.69 10*3/uL 0.83-4.51 [facility] Absolute neutrophil countOrd ered By: Joe Sanchez on 07-02-2024 Neutrophils (Bld) [#/Vol] 4.5 10*3/uL 2.0-7.7 [facility] Anion gap in Serum or Plasma Ordered By: Joe Sanchez on 07-02-2024 Anion gap [Moles/Vol] 13 mmol/L - [facility] Automated lymphocyte count a s percentage of total leukocytesOrdered By: Joe Sanchez on 07-02-2024 Lymphocytes/100 WBC Auto (Unsp spec) 23.8 % 19-41 [facility] BUN/creatinine ratioOrdered By: Joe Sanchez on 07-02-2024 Urea nitrogen/Creatinine [Mass ratio] 16.6 mg/mg 10-20 [facility] Basophil percentageOrdered B y: Joe Sanchez on 07-02-2024 Basophils/100 WBC (Bld) 1.0 % 0-1 [facility] Carbon dioxide, total [Moles /volume] in Central venous bloodOrdered By: Joe Sanchez on 07-02-2024 CO2 [Moles/Vol] 26.0 mmol/L 21.0-32.0 [facility] Chloride assayOrdered By: Lluvia Sanchez on 07-02-2024 Chloride [Moles/Vol] 99 mmol/L 98-108 [facility] Eosinophil percentageOrdered By: claudioclimaxlynnette Sanchez on 07-02-2024 Eosinophils/100 WBC (Bld) 1.7 % 0-5 [facility] Erythrocyte distribution wid th ratioOrdered By: Joe Sanchez on 07-02-2024 Erythrocyte distribution width (RBC) [Ratio] 13.5 % 11.6-14.6 [facility] Erythrocyte distribution wid th standard deviationOrdered By: Joe Sanchez on 07-02-2024 Erythrocyte distribution width (RBC) [Ratio] 47.8 fl High 35.1-43.9 [facility] Glomerular filtration rate ( GFR) estimation/1.73 sq m using serum, plasma, or whole bOrdered By: Joe Sanchez on 07-02-2024 GFR/1.73 sq M.predicted among non-blacks MDRD (S/P/Bld) [Vol rate/Area] 28 mL/min/{1.73_m2} Low >60 [facility] Comment on above: mL/min/1.73m2 CKD-EP I Creatinine Equation (2020) Hematocrit Auto (Bld) [Volum e fraction]Ordered By: Joe Sanchez on 07-02-2024 Hematocrit (Bld) [Volume fraction] 41.2 % 37-47 [facility] Hemoglobin measurementOrdere d By: Joe Sanchez on 07-02-2024 Hemoglobin (Bld) [Mass/Vol] 13.8 g/dL 12.0-15.0 [facility] Immature granulocytes/100 WB C Auto (Bld)Ordered By: Yudimelissalynnette Morrisawaismilton on 07-02-2024 Immature granulocytes/100 WBC (Bld) 0.600 % 0.0-0.9 [facility] Comment on above: IG% - Immature Granu locytes (promyelocytes, myelocytes and metamyelocytes) > 1% indicates that a LEFT SHIFT is Present. MCV (mean corpuscular volume ) determinationOrdered By: Joe Sanchez on 07-02-2024 MCV (RBC) [Entitic vol] 95.8 fL 81-99 [facility] Mean corpuscular hemoglobin (MCH) determinationOrdered By: claudioclimaxlynnette Sanchez on 07-02-2024 MCH (RBC) [Entitic mass] 32.1 pg High 27.0-32.0 [facility] Mean corpuscular hemoglobin concentration (MCHC) determinationOrdered By: montez Sanchez on 07-02-2024 MCHC (RBC) [Mass/Vol] 33.5 g/dL 32-36 [facility] Mean platelet volume determi nationOrdered By: Lluviamontez Morrisawaismilton on 07-02-2024 Platelet mean volume (Bld) [Entitic vol] 12.6 fL High 6.2-12.0 [facility] Monocyte percentageOrdered B y: Joe Sanchez on 07-02-2024 Monocytes/100 WBC (Bld) 9.8 % 0-10 [facility] Neutrophil percentageOrdered By: montez Sanchez on 07-02-2024 Neutrophils/100 WBC (Bld) 63.1 % 47-70 [facility] Nucleated red blood cell per centageOrdered By: montez Sanchez on 07-02-2024 Nucleated RBC/100 WBC (Bld) [Ratio] 0 % 0-5 [facility] Platelet countOrdered By: Lluvia claudiokayleigh Sanchez on 07-02-2024 Platelets (Bld) [#/Vol] 210 10*3/uL 150-450 [facility] Potassium measurement (mass/ volume)Ordered By: Joe Sanchez on 07-02-2024 Potassium (Unsp spec) [Mass/Vol] 4.4 mmol/L 3.3-5.1 [facility] Comment on above: Hemolysis present, R esults could be affected. RBC Auto (Bld) [#/Vol]Ordere d By: Joe Sanchez on 07-02-2024 RBC (Bld) [#/Vol] 4.30 10*6/uL 4.2-5.4 [facility] [place] Serum creatinine measurement (mass/volume)Ordered By: Joe Sanchez on 07-02-2024 Creatinine [Mass/Vol] 1.78 mg/dL High 0.70-1.20 [facility] Serum glucose measurement (m ass/volume)Ordered By: Joe Sanchez on 07-02-2024 Glucose [Mass/Vol] 100 mg/dL High 70-99 [facility] Serum or plasma calcium leah urement (mass/volume)Ordered By: Joe Sanchez on 07-02-2024 Calcium [Mass/Vol] 9.5 mg/dL 7.6-11.0 [facility] Serum or plasma urea nitroge n measurement (mass/volume)Ordered By: Joe Sanchez on 07-02-2024 Urea nitrogen [Mass/Vol] 30 mg/dL High 4-19 [facility] Sodium levelOrdered By: Yudi Sanchez on 07-02-2024 Sodium [Moles/Vol] 138 mmol/L 133-145 [facility] White blood cell (WBC) count Ordered By: Joe Sanchez on 07-02-2024 WBC (Bld) [#/Vol] 7.1 10*3/uL 4.4-11.0 [facility] Vitamin D, 25-hydroxyOrdered By: Joe Sanchez on 06-18-2024 Vitamin D 25-Hydroxy 23.4 ng/mL Low 30-100 [facility] Comment on above: Vitamin D StatusDefi ciency: <20 ng/mL (50nmol/L)Insufficiency: 20-30 ng/mL (50-75 nmol/L)Sufficiency: 30-100 ng/mL (75-250 nmol/L)Toxicity: >100 ng/mL (>250 nmol/L) Absolute lymphocyte countOrd ered By: Yudimelissalynnette Morrisawaismilton on 06-04-2024 Lymphocytes Auto (Unsp spec) [#/Vol] 1.61 10*3/uL 0.83-4.51 [facility] Absolute neutrophil countOrd ered By: Joe Morrisawaismilton on 06-04-2024 Neutrophils (Bld) [#/Vol] 5.3 10*3/uL 2.0-7.7 [facility] Anion gap in Serum or Plasma Ordered By: Joe Sanchez on 06-04-2024 Anion gap [Moles/Vol] 13 mmol/L 5-15 [facility] Automated lymphocyte count a s percentage of total leukocytesOrdered By: Joe Sanchez on 06-04-2024 Lymphocytes/100 WBC Auto (Unsp spec) 19.9 % 19-41 [facility] BUN/creatinine ratioOrdered By: Joe Sanchez on 06-04-2024 Urea nitrogen/Creatinine [Mass ratio] 16.0 mg/mg 10-20 [facility] Basophil percentageOrdered B y: Yudimelissalynnette Morrisawaismilton on 06-04-2024 Basophils/100 WBC (Bld) 1.1 % High 0-1 [facility] Carbon dioxide, total [Moles /volume] in Central venous bloodOrdered By: Joe Sanchez on 06-04-2024 CO2 [Moles/Vol] 26.2 mmol/L 21.0-32.0 [facility] Chloride assayOrdered By: Lluvia Sanchez on 06-04-2024 Chloride [Moles/Vol] 99 mmol/L 98-108 [facility] Eosinophil percentageOrdered By: montez Sanchez on 06-04-2024 Eosinophils/100 WBC (Bld) 2.2 % 0-5 [facility] Erythrocyte distribution wid th (RBC) [Ratio]Ordered By: Joe Sanchze on 06-04-2024 Erythrocyte distribution width (RBC) [Entitic vol] 46.8 fL High 35.1-43.9 [facility] Erythrocyte distribution wid th ratioOrdered By: Joe Sanchez on 06-04-2024 Erythrocyte distribution width (RBC) [Ratio] 13.2 % 11.6-14.6 [facility] Erythrocyte distribution wid th standard deviationOrdered By: Joe Sanchez on 06-04-2024 Erythrocyte distribution width (RBC) [Ratio] 46.8 fl High 35.1-43.9 [facility] GFR/1.73 sq M.predicted venkata g non-blacks MDRD (S/P/Bld) [Vol rate/Area]Ordered By: Joe Sanchez on 06-04-2024 Estimated GFR (MDRD) Non-Af Amer 29 Low >60 [facility] Comment on above: mL/min/1.73m2 CKD-EP I Creatinine Equation (2020) Glomerular filtration rate ( GFR) estimation/1.73 sq m using serum, plasma, or whole bOrdered By: Joe Sanchez on 06-04-2024 GFR/1.73 sq M.predicted among non-blacks MDRD (S/P/Bld) [Vol rate/Area] 29 mL/min/{1.73_m2} Low >60 [facility] Comment on above: mL/min/1.73m2 CKD-EP I Creatinine Equation (2020) Hematocrit Auto (Bld) [Volum e fraction]Ordered By: Joe Sanchez on 06-04-2024 Hematocrit (Bld) [Volume fraction] 43.1 % 37-47 [facility] Hemoglobin measurementOrdere d By: Joe Sanchez on 06-04-2024 Hemoglobin (Bld) [Mass/Vol] 14.2 g/dL 12.0-15.0 [facility] Immature granulocytes/100 WB C Auto (Bld)Ordered By: Joe Sanchez 06-04-2024 Immature granulocytes/100 WBC (Bld) 0.600 % 0.0-0.9 [facility] Comment on above: IG% - Immature Granu locytes (promyelocytes, myelocytes and metamyelocytes) > 1% indicates that a LEFT SHIFT is Present. Lymphocytes Auto (Unsp spec) [#/Vol]Ordered By: Joe Sanchez on 06-04-2024 Lymphocytes (Bld) [#/Vol] 1.61 10*3/uL 0.83-4.51 [facility] Lymphocytes/100 WBC Auto (Un sp spec)Ordered By: Joe Sanchez on 06-04-2024 Lymphocytes/100 WBC (Bld) 19.9 % 19-41 [facility] MCV (mean corpuscular volume ) determinationOrdered By: Joe Sanchez on 06-04-2024 MCV (RBC) [Entitic vol] 96.9 fL 81-99 [facility] Mean corpuscular hemoglobin (MCH) determinationOrdered By: Joe Sanchez on 06-04-2024 MCH (RBC) [Entitic mass] 31.9 pg 27.0-32.0 [facility] Mean corpuscular hemoglobin concentration (MCHC) determinationOrdered By: Joe Sanchez on 06-04-2024 MCHC (RBC) [Mass/Vol] 32.9 g/dL 32-36 [facility] Mean platelet volume determi nationOrdered By: Joe Sanchez on 06-04-2024 Platelet mean volume (Bld) [Entitic vol] 12.3 fL High 6.2-12.0 [facility] Monocyte percentageOrdered B y: Joe Sanchez on 06-04-2024 Monocytes/100 WBC (Bld) 10.4 % High 0-10 [facility] Neutrophil percentageOrdered By: Joe Sanchez on 06-04-2024 Neutrophils/100 WBC (Bld) 65.8 % 47-70 [facility] Nucleated red blood cell per centageOrdered By: Joe Sanchez on 06-04-2024 Nucleated RBC/100 WBC (Bld) [Ratio] 0 % 0-5 [facility] Platelet countOrdered By: Lluvia claudiokayleigh Sanchez on 06-04-2024 Platelets (Bld) [#/Vol] 216 10*3/uL 150-450 [facility] Potassium (Unsp spec) [Mass/ Vol]Ordered By: Joe Sanchez on 06-04-2024 Potassium [Moles/Vol] 4.5 mmol/L 3.3-5.1 [facility] Potassium measurement (mass/ volume)Ordered By: Joe Sanchez on 06-04-2024 Potassium (Unsp spec) [Mass/Vol] 4.5 mmol/L 3.3-5.1 [facility] RBC Auto (Bld) [#/Vol]Ordere d By: Yudimelissalynnette Sanchez on 06-04-2024 RBC (Bld) [#/Vol] 4.45 10*6/uL 4.2-5.4 [facility] [place] Serum creatinine measurement (mass/volume)Ordered By: Joe Sanchez on 06-04-2024 Creatinine [Mass/Vol] 1.74 mg/dL High 0.70-1.20 [facility] Serum glucose measurement (m ass/volume)Ordered By: Joe Sanchez on 06-04-2024 Glucose [Mass/Vol] 91 mg/dL 70-99 [facility] Serum or plasma calcium leah urement (mass/volume)Ordered By: Joe Sanchez on 06-04-2024 Calcium [Mass/Vol] 9.5 mg/dL 7.6-11.0 [facility] Serum or plasma urea nitroge n measurement (mass/volume)Ordered By: Joe Sanchez on 06-04-2024 Urea nitrogen [Mass/Vol] 28 mg/dL High 4-19 [facility] Sodium levelOrdered By: Lluviaclaudio kayleigh Arturoawaismilton on 06-04-2024 Sodium [Moles/Vol] 138 mmol/L 133-145 [facility] White blood cell (WBC) count Ordered By: Joe Sanchez on 06-04-2024 WBC (Bld) [#/Vol] 8.1 10*3/uL 4.4-11.0 [facility] Absolute lymphocyte countOrd ered By: Joe Sanchez on 05-07-2024 Lymphocytes Auto (Unsp spec) [#/Vol] 1.40 10*3/uL 0.83-4.51 [facility] Absolute neutrophil countOrd ered By: Joe Sanchez on 05-07-2024 Neutrophils (Bld) [#/Vol] 5.1 10*3/uL 2.0-7.7 [facility] Automated lymphocyte count a s percentage of total leukocytesOrdered By: Joe Sanchez on 05-07-2024 Lymphocytes/100 WBC Auto (Unsp spec) 19.1 % 19-41 [facility] Basophil percentageOrdered B y: Joe Sanchez on 05-07-2024 Basophils/100 WBC (Bld) 1.0 % 0-1 [facility] Blood urea nitrogen (BUN)/cr eatinine ratioOrdered By: Joe Sanchez on 05-07-2024 Urea nitrogen/Creatinine [Mass ratio] 13.9 mg/mg 10-20 [facility] Carbon dioxide measurementOr dered By: Joe Sanchez on 05-07-2024 CO2 [Moles/Vol] 28.0 mmol/L 21.0-32.0 [facility] Chloride measurementOrdered By: claudioclimaxlynnette Sanchez on 05-07-2024 Chloride [Moles/Vol] 101 mmol/L 98-107 [facility] Eosinophil percentageOrdered By: Joe Sanchez on 05-07-2024 Eosinophils/100 WBC (Bld) 2.7 % 0-5 [facility] Erythrocyte distribution wid th (RBC) [Ratio]Ordered By: Joe Sanchez on 05-07-2024 Erythrocyte distribution width (RBC) [Entitic vol] 48.3 fL High 35.1-43.9 [facility] Erythrocyte distribution wid th ratioOrdered By: Joe Sanchez on 05-07-2024 Erythrocyte distribution width (RBC) [Ratio] 13.5 % 11.6-14.6 [facility] Erythrocyte distribution wid th standard deviationOrdered By: montez Sanchez on 05-07-2024 Erythrocyte distribution width (RBC) [Ratio] 48.3 fl High 35.1-43.9 [facility] Estimated glomerular filtrat ion rate (GFR) AmericanOrdered By: Joe Sanchez on 05-07-2024 Estimated GFR (MDRD) Amer 29 mL/min Low >60 [facility] Comment on above: GFR Calc Glomerular filtration rate ( GFR) estimationOrdered By: Joe Sanchez on 05-07-2024 Estimated GFR (MDRD) Non-Af Amer 24 mL/min Low >60 [facility] Comment on above: Non- GFR Calc GFR/1.73 sq M.predicted among non-blacks MDRD (S/P/Bld) [Vol rate/Area] 24 mL/min/{1.73_m2} Low >60 [facility] Comment on above: Non- GFR Calc Glucose measurementOrdered B y: Joe Sanchez on 05-07-2024 Glucose [Mass/Vol] 122 mg/dL High 74-106 [facility] Comment on above: Fasting Glucose resu lt from 100 to 125 mg/dL suggests IMPAIRED HOMEOSTASIS per A.D.A. criteria. Hematocrit Auto (Bld) [Volum e fraction]Ordered By: Joe Sanchez on 05-07-2024 Hematocrit (Bld) [Volume fraction] 41.3 % 37-47 [facility] Hemoglobin measurementOrdere d By: Joe Sanchez on 05-07-2024 Hemoglobin (Bld) [Mass/Vol] 13.4 g/dL 12.0-15.0 [facility] Immature granulocytes/100 WB C Auto (Bld)Ordered By: Joe Sanchez on 05-07-2024 Immature granulocytes/100 WBC (Bld) 0.700 % 0.0-0.9 [facility] Comment on above: IG% - Immature Granu locytes (promyelocytes, myelocytes and metamyelocytes) > 1% indicates that a LEFT SHIFT is Present. Lymphocytes Auto (Unsp spec) [#/Vol]Ordered By: Joe Sanchez on 05-07-2024 Lymphocytes (Bld) [#/Vol] 1.40 10*3/uL 0.83-4.51 [facility] Lymphocytes/100 WBC Auto (Un sp spec)Ordered By: Joe Sanchez on 05-07-2024 Lymphocytes/100 WBC (Bld) 19.1 % 19-41 [facility] MCV (mean corpuscular volume ) determinationOrdered By: Joe Sanchez on 05-07-2024 MCV (RBC) [Entitic vol] 98.6 fL 81-99 [facility] Mean corpuscular hemoglobin (MCH) determinationOrdered By: Joe Sanchez on 05-07-2024 MCH (RBC) [Entitic mass] 32.0 pg 27.0-32.0 [facility] Mean corpuscular hemoglobin concentration (MCHC) determinationOrdered By: Joe Sanchez on 05-07-2024 MCHC (RBC) [Mass/Vol] 32.4 g/dL 32-36 [facility] Mean platelet volume determi nationOrdered By: Joe Sanchez on 05-07-2024 Platelet mean volume (Bld) [Entitic vol] 12.6 fL High 6.2-12.0 [facility] Monocyte percentageOrdered B y: Joe Sanchez on 05-07-2024 Monocytes/100 WBC (Bld) 7.4 % 0-10 [facility] Neutrophil percentageOrdered By: Joe Sanchez on 05-07-2024 Neutrophils/100 WBC (Bld) 69.1 % 47-70 [facility] Nucleated red blood cell per centageOrdered By: Joe Sanchez on 05-07-2024 Nucleated RBC/100 WBC (Bld) [Ratio] 0 % 0-5 [facility] Platelet countOrdered By: Lluvia Sanchez on 05-07-2024 Platelets (Bld) [#/Vol] 194 10*3/uL 150-450 [facility] Potassium measurementOrdered By: Joe Sanchez on 05-07-2024 Potassium [Moles/Vol] 3.6 mmol/L 3.5-5.1 [facility] RBC Auto (Bld) [#/Vol]Ordere d By: Joe Sanchez on 05-07-2024 RBC (Bld) [#/Vol] 4.19 10*6/uL Low 4.2-5.4 [facility] [place] Serum anion gap measurementO rdered By: Joe Sanchez on 05-07-2024 Anion gap [Moles/Vol] 10 mmol/L 5-15 [facility] Serum or plasma calcium leah urement (mass/volume)Ordered By: Joe Sanchez on 05-07-2024 Calcium [Mass/Vol] 9.3 mg/dL 8.5-10.1 [facility] Serum or plasma creatinine m easurement (mass/volume)Ordered By: Joe Sanchez on 05-07-2024 Creatinine [Mass/Vol] 2.08 mg/dL High 0.55-1.02 [facility] Comment on above: The validity of the calculated GFR & GFRAA in patients over 70 years has not been determined. Clinical correlation is essential. Serum or plasma urea nitroge n measurement (mass/volume)Ordered By: Joe Sanchez on 05-07-2024 Urea nitrogen [Mass/Vol] 29 mg/dL High 7-18 [facility] Sodium levelOrdered By: Yudi Sanchez on 05-07-2024 Sodium [Moles/Vol] 139 mmol/L 136-145 [facility] White blood cell (WBC) count Ordered By: Joe Sanchez on 05-07-2024 WBC (Bld) [#/Vol] 7.3 10*3/uL 4.4-11.0 [facility] 36-SL-Edkvrbz DOrdered By: Milton Sanchez on 04-22-2024 Vitamin D 25-Hydroxy 69.4 ng/mL [facility] Comment on above: Vitamin D 25(OH) Sta tus Range Deficiency <20 ng/mL (50nmol/L) Insufficiency 20 - 30 ng/mL (50 - 75 nmol/L) Sufficiency 30 - 100 ng/mL (75 - 250 nmol/L) Toxicity >100 ng/mL (>250 nmol/L) Bilirubin directOrdered By: Joe Sanchez on 04-22-2024 Bilirubin.direct [Mass/Vol] 0.29 mg/dL 0.00-0.30 [facility] Bilirubin, totalOrdered By: Joe Sanchez on 04-22-2024 Bilirubin [Mass/Vol] 0.90 mg/dL 0.20-1.00 [facility] Comment on above: For patients on eltr ombopag therapy, use of [employer] TBIL is not recommended. Hemoglobin A1c percentageOrd ered By: Joe Sanchez on 04-22-2024 HbA1c (Bld) [Mass fraction] 5.2 % 3.8-5.6 [facility] Comment on above: Normal < 5.7 % Predi abetic 5.7 - 6.4 % Diabetic >or= 6.5 % Please note range changes. High density lipoprotein (HD L) measurementOrdered By: Joe Sanchez on 04-22-2024 Cholesterol in HDL [Mass/Vol] 44 mg/dL >40 [facility] Comment on above: The drugs N-Acetylcy steine and Metamizole may falsely depress this assay. Reference Range HDL <40 mg/dL Low HDL Cholesterol HDL >or= 60 mg/dL High HDL Cholesterol Laboratory - Chemistry and C hemistry - challengeOrdered By: Joe Sanchez on 04-22-2024 AST [Catalytic activity/Vol] 15 U/L 15-37 [facility] Low density lipoprotein (LDL ) cholesterol measurementOrdered By: Joe Sanchez on 04-22-2024 Cholesterol in LDL [Mass/Vol] 41 mg/dL 0-130 [facility] Serum globulin measurementOr dered By: Joe Sanchez on 04-22-2024 Globulin (S) [Mass/Vol] 3.7 g/dL 2.2-4.2 [facility] Serum or plasma alanine kilpatrick otransferase (ALT) measurementOrdered By: Joe Sanchez on 04-22-2024 ALT [Catalytic activity/Vol] 14 U/L 13-56 [facility] Serum or plasma albumin leah urement (mass/volume)Ordered By: Joe Sanchez on 04-22-2024 Albumin [Mass/Vol] 2.7 g/dL Low 3.2-5.0 [facility] Serum or plasma alkaline kirti sphatase measurementOrdered By: Joe Sanchez on 04-22-2024 ALP [Catalytic activity/Vol] 61 U/L 45-117 [facility] Serum or plasma cholesterol measurement (mass/volume)Ordered By: Joe Sanchez on 04-22-2024 Cholesterol [Mass/Vol] 106 mg/dL <200 [facility] Comment on above: <200 mg/dL Desirable 200-240 mg/dL Borderline >240 mg/dL High Risk Total proteinOrdered By: Constantin chancelynnette Sanchez on 04-22-2024 Protein [Mass/Vol] 6.4 g/dL 6.4-8.2 [facility] Triglycerides measurementOrd ered By: Yudimelissalynnette Sanchez on 04-22-2024 Triglyceride [Mass/Vol] 107 mg/dL <199 [facility] Comment on above: The drugs N-Acetylcy steine and Metamizole may falsely depress this assay.Serum Triglycerides Reference Interval Normal <150 mg/dL Borderline high 150 - 199 mg/dL High 200 - 499 mg/dL Very High > or = 500 mg/dL Very low density lipoprotein (VLDL) cholesterol measurementOrdered By: Joe Sanchez on 04-22-2024 Very low density lipoprotein (VLDL) cholesterol measurement 21 mg/dL 5-40 [facility] VLDL Cholesterol 21 mg/dL 5-40 [facility] Absolute lymphocyte countOrd ered By: Joe Sanchez on 04-09-2024 Lymphocytes Auto (Unsp spec) [#/Vol] 1.63 10*3/uL 0.83-4.51 [facility] Absolute neutrophil countOrd ered By: Joe Sanchez on 04-09-2024 Neutrophils (Bld) [#/Vol] 5.0 10*3/uL 2.0-7.7 [facility] Automated lymphocyte count a s percentage of total leukocytesOrdered By: Joe Sanchez on 04-09-2024 Lymphocytes/100 WBC Auto (Unsp spec) 20.7 % 19- [facility] Basophil percentageOrdered B y: Joe Sanchez on 04-09-2024 Basophils/100 WBC (Bld) 1.3 % High 0-1 [facility] Blood urea nitrogen (BUN)/cr eatinine ratioOrdered By: Joe Sanchez on 04-09-2024 Urea nitrogen/Creatinine [Mass ratio] 11.4 mg/mg 10-20 [facility] Carbon dioxide measurementOr dered By: Joe Sanchez on 04-09-2024 CO2 [Moles/Vol] 30.0 mmol/L 21.0-32.0 [facility] Chloride measurementOrdered By: Joe Sanchez on 04-09-2024 Chloride [Moles/Vol] 100 mmol/L 98-107 [facility] Eosinophil percentageOrdered By: Joe Sanchez on 04-09-2024 Eosinophils/100 WBC (Bld) 2.4 % 0-5 [facility] Erythrocyte distribution wid th (RBC) [Ratio]Ordered By: Joe Sanchez on 04-09-2024 Erythrocyte distribution width (RBC) [Entitic vol] 49.9 fL High 35.1-43.9 [facility] Erythrocyte distribution wid th ratioOrdered By: Joe Sanchez on 04-09-2024 Erythrocyte distribution width (RBC) [Ratio] 13.6 % 11.6-14.6 [facility] Erythrocyte distribution wid th standard deviationOrdered By: Joe Sanchez on 04-09-2024 Erythrocyte distribution width (RBC) [Ratio] 49.9 fl High 35.1-43.9 [facility] Estimated glomerular filtrat ion rate (GFR) AmericanOrdered By: Joe Sanchez on 04-09-2024 Estimated GFR (MDRD) Amer 36 mL/min Low >60 [facility] Comment on above: GFR Calc Glomerular filtration rate ( GFR) estimationOrdered By: Joe Sanchez on 04-09-2024 Estimated GFR (MDRD) Non-Af Amer 30 mL/min Low >60 [facility] Comment on above: Non- GFR Calc GFR/1.73 sq M.predicted among non-blacks MDRD (S/P/Bld) [Vol rate/Area] 30 mL/min/{1.73_m2} Low >60 [facility] Comment on above: Non- GFR Calc Glucose measurementOrdered B y: Joe Sanchez on 04-09-2024 Glucose [Mass/Vol] 86 mg/dL 74-106 [facility] Hematocrit Auto (Bld) [Volum e fraction]Ordered By: Joe Sanchez on 04-09-2024 Hematocrit (Bld) [Volume fraction] 40.5 % 37-47 [facility] Hemoglobin measurementOrdere d By: Joe Sanchez on 04-09-2024 Hemoglobin (Bld) [Mass/Vol] 13.0 g/dL 12.0-15.0 [facility] Immature granulocytes/100 WB C Auto (Bld)Ordered By: Joe Sanchez on 04-09-2024 Immature granulocytes/100 WBC (Bld) 0.600 % 0.0-0.9 [facility] Comment on above: IG% - Immature Granu locytes (promyelocytes, myelocytes and metamyelocytes) > 1% indicates that a LEFT SHIFT is Present. Lymphocytes Auto (Unsp spec) [#/Vol]Ordered By: claudioclimaxlynnette Sanchze on 04-09-2024 Lymphocytes (Bld) [#/Vol] 1.63 10*3/uL 0.83-4.51 [facility] Lymphocytes/100 WBC Auto (Un sp spec)Ordered By: montez Sanchez on 04-09-2024 Lymphocytes/100 WBC (Bld) 20.7 % 19-41 [facility] MCV (mean corpuscular volume ) determinationOrdered By: Joe Sanchez on 04-09-2024 MCV (RBC) [Entitic vol] 98.5 fL 81-99 [facility] Mean corpuscular hemoglobin (MCH) determinationOrdered By: Joe Sanchez on 04-09-2024 MCH (RBC) [Entitic mass] 31.6 pg 27.0-32.0 [facility] Mean corpuscular hemoglobin concentration (MCHC) determinationOrdered By: Joe Sanchez on 04-09-2024 MCHC (RBC) [Mass/Vol] 32.1 g/dL 32-36 [facility] Mean platelet volume determi nationOrdered By: montez Sanchez on 04-09-2024 Platelet mean volume (Bld) [Entitic vol] 12.2 fL High 6.2-12.0 [facility] Monocyte percentageOrdered B y: Joe Sanchez on 04-09-2024 Monocytes/100 WBC (Bld) 10.9 % High 0-10 [facility] Neutrophil percentageOrdered By: Joe Sanchez on 01-21-2025 Neutrophils/100 WBC (Bld) 64.1 % 47-70 [facility] Nucleated red blood cell per centageOrdered By: Joe Sanchez on 04-09-2024 Nucleated RBC/100 WBC (Bld) [Ratio] 0 % 0-5 [facility] Platelet countOrdered By: Lluvia Sanchez on 04-09-2024 Platelets (Bld) [#/Vol] 215 10*3/uL 150-450 [facility] Potassium measurementOrdered By: Joe Sanchez on 04-09-2024 Potassium [Moles/Vol] 4.2 mmol/L 3.5-5.1 [facility] RBC Auto (Bld) [#/Vol]Ordere d By: Joe Sanchez on 04-09-2024 RBC (Bld) [#/Vol] 4.11 10*6/uL Low 4.2-5.4 [facility] [place] Serum anion gap measurementO rdered By: Joe Sanchez on 04-09-2024 Anion gap [Moles/Vol] 6 mmol/L 5-15 [facility] Serum or plasma calcium leah urement (mass/volume)Ordered By: Joe Sanchez on 04-09-2024 Calcium [Mass/Vol] 9.8 mg/dL 8.5-10.1 [facility] Serum or plasma creatinine m easurement (mass/volume)Ordered By: Joe Sanchez on 04-09-2024 Creatinine [Mass/Vol] 1.75 mg/dL High 0.55-1.02 [facility] Comment on above: The validity of the calculated GFR & GFRAA in patients over 70 years has not been determined. Clinical correlation is essential. Serum or plasma urea nitroge n measurement (mass/volume)Ordered By: Joe Sanchez on 04-09-2024 Urea nitrogen [Mass/Vol] 20 mg/dL High 7-18 [facility] Sodium levelOrdered By: Yudi Sanchez on 04-09-2024 Sodium [Moles/Vol] 137 mmol/L 136-145 [facility] White blood cell (WBC) count Ordered By: Joe Sanchez on 04-09-2024 WBC (Bld) [#/Vol] 7.9 10*3/uL 4.4-11.0 [facility] 36on 04-03-2024 36 Records received and scanned under [facility] 36on 04-01-2024 36 I called Osmany and she requested me to fax med recs release to [phone] I faxed this morning. Confirmed 04/02 at 5:45p [facility] 36on 03-15-2024 36 Chart reviewed, patient completed 30 day follow-up in [place]. Cancelled echo order [facility] 36 Patient prefers care in [facility] 36 We have been unable to reach your patient to schedule their testing. Test Name: echo 1st Attempt: 03/14/2024 left voicemail 2nd Attempt: 03/15/2024 left voicemail [facility] Bilirubin Test strip Ql (U)O rdered By: Joe Sanchez on 03-15-2024 Bilirubin Ql (U) Negative Negative [facility] Glucose Ql (U)Ordered By: Lluvia Sanchez on 03-15-2024 Glucose (U) [Mass/Vol] 250 mg/dL High Normal [facility] Ketones Test strip Ql (U)Ord ered By: Joe Sanchez on 03-15-2024 Ketones Ql (U) Negative Negative [facility] Nitrite Test strip Ql (U)Ord ered By: Joe Sanchez on 03-15-2024 Nitrite Ql (U) Negative Negative [facility] Protein Test strip Ql (U)Ord ered By: Joe Sanchez on 03-15-2024 Protein Ql (U) 100 mg/dl High Negative [facility] Urine blood detectionOrdered By: Joe Sanchez on 03-15-2024 Urine Occult Blood 250 /ul High Negative [facility] Urine clarityOrdered By: Constantin Sanchez on 03-15-2024 Clarity (U) Cloudy Clear [facility] Urine color determinationOrd ered By: Joe Sanchez on 03-15-2024 Color (U) Straw Yellow [facility] Urine cultureOrdered By: Constantin Sanchez on 03-15-2024 Bacteria identified Cx Nom (U) Enterobacter cloacae complex Abnormal [facility] Urine leukocyte esterase det ection by dipstickOrdered By: Joe Sanchez on 03-15-2024 Leukocyte esterase Test strip Ql (U) 500 /ul High Negative [facility] Urine pHOrdered By: Miles Sanchez on 03-15-2024 pH (U) 6.0 [pH] 5.0 - 8.0 [facility] Urine specific gravity measu rementOrdered By: Joe Sanchez on 03-15-2024 Specific gravity (U) [Rel density] 1.015 1.002-1.030 [facility] Urobilinogen Ql (U)Ordered B y: Joe Sanchez on 03-15-2024 Urine Urobilinogen Normal mg/dl Normal [facility] Absolute neutrophil countOrd ered By: Joe Sanchez on 03-08-2024 Neutrophils (Bld) [#/Vol] 5.5 10*3/uL 2.0-7.7 [facility] Basophil percentageOrdered B y: Joe Sanchez on 03-08-2024 Basophils/100 WBC (Bld) 1.3 % High 0-1 [facility] Blood urea nitrogen (BUN)/cr eatinine ratioOrdered By: Joe Sanchez on 03-08-2024 Urea nitrogen/Creatinine [Mass ratio] 13.4 mg/mg 10-20 [facility] Carbon dioxide measurementOr dered By: Joe Sanchez on 03-08-2024 CO2 [Moles/Vol] 27.0 mmol/L 21.0-32.0 [facility] Chloride measurementOrdered By: Joe Sanchez on 03-08-2024 Chloride [Moles/Vol] 98 mmol/L 98-107 [facility] Eosinophil percentageOrdered By: Joe Sanchez on 03-08-2024 Eosinophils/100 WBC (Bld) 3.6 % 0-5 [facility] Erythrocyte distribution wid th (RBC) [Ratio]Ordered By: Joe Sanchez on 03-08-2024 Erythrocyte distribution width (RBC) [Entitic vol] 50.5 fL High 35.1-43.9 [facility] Erythrocyte distribution wid th ratioOrdered By: Joe Chaumilton on 03-08-2024 Erythrocyte distribution width (RBC) [Ratio] 14.1 % 11.6-14.6 [facility] Estimated glomerular filtrat ion rate (GFR) AmericanOrdered By: Joe Sanchez on 03-08-2024 Estimated GFR (MDRD) Amer 35 mL/min Low >60 [facility] Comment on above: GFR Calc Glomerular filtration rate ( GFR) estimationOrdered By: Joe Sanchez on 03-08-2024 Estimated GFR (MDRD) Non-Af Amer 29 mL/min Low >60 [facility] Comment on above: Non- GFR Calc Glucose measurementOrdered B y: Joe Sanchez on 03-08-2024 Glucose [Mass/Vol] 82 mg/dL 74-106 [facility] Hematocrit Auto (Bld) [Volum e fraction]Ordered By: Joe Sanchez on 03-08-2024 Hematocrit (Bld) [Volume fraction] 39.8 % 37-47 [facility] Hemoglobin measurementOrdere d By: Yudimelissalynnette Sanchez on 03-08-2024 Hemoglobin (Bld) [Mass/Vol] 13.1 g/dL 12.0-15.0 [facility] Immature granulocytes/100 WB C Auto (Bld)Ordered By: Joe Sanchez on 03-08-2024 Immature granulocytes/100 WBC (Bld) 1.300 % High 0.0-0.9 [facility] Comment on above: IG% - Immature Granu locytes (promyelocytes, myelocytes and metamyelocytes) > 1% indicates that a LEFT SHIFT is Present. Lymphocytes Auto (Unsp spec) [#/Vol]Ordered By: Joe Sanchez on 03-08-2024 Lymphocytes (Bld) [#/Vol] 1.69 10*3/uL 0.83-4.51 [facility] Lymphocytes/100 WBC Auto (Un sp spec)Ordered By: Joe Sanchez on 03-08-2024 Lymphocytes/100 WBC (Bld) 19.6 % 19-41 [facility] MCV (mean corpuscular volume ) determinationOrdered By: Joe Sanchez on 03-08-2024 MCV (RBC) [Entitic vol] 97.3 fL 81-99 [facility] Mean corpuscular hemoglobin (MCH) determinationOrdered By: Efmontez Sanchez on 03-08-2024 MCH (RBC) [Entitic mass] 32.0 pg 27.0-32.0 [facility] Mean corpuscular hemoglobin concentration (MCHC) determinationOrdered By: Joe Sanchez on 03-08-2024 MCHC (RBC) [Mass/Vol] 32.9 g/dL 32-36 [facility] Mean platelet volume determi nationOrdered By: Joe Sanchez on 03-08-2024 Platelet mean volume (Bld) [Entitic vol] 11.9 fL 6.2-12.0 [facility] Monocyte percentageOrdered B y: Joe Sanchez on 03-08-2024 Monocytes/100 WBC (Bld) 10.9 % High 0-10 [facility] Neutrophil percentageOrdered By: Joe Sanchez on 03-08-2024 Neutrophils/100 WBC (Bld) 63.3 % 47-70 [facility] Nucleated red blood cell per centageOrdered By: Joe Sanchez on 03-08-2024 Nucleated RBC/100 WBC (Bld) [Ratio] 0 % 0-5 [facility] Platelet countOrdered By: Ef claudioonglynnette Sanchez on 03-08-2024 Platelets (Bld) [#/Vol] 232 10*3/uL 150-450 [facility] Potassium measurementOrdered By: Joe Sanchez on 03-08-2024 Potassium [Moles/Vol] 4.1 mmol/L 3.5-5.1 [facility] RBC Auto (Bld) [#/Vol]Ordere d By: Joaquinbe Kandie on 03-08-2024 RBC (Bld) [#/Vol] 4.09 10*6/uL Low 4.2-5.4 [facility] [place] Serum anion gap measurementO rdered By: Joe Sanchez on 03-08-2024 Anion gap [Moles/Vol] 9 mmol/L 5-15 [facility] Serum or plasma calcium leah urement (mass/volume)Ordered By: Joe Sanchez on 03-08-2024 Calcium [Mass/Vol] 9.6 mg/dL 8.5-10.1 [facility] Serum or plasma creatinine m easurement (mass/volume)Ordered By: Joe Sanchez on 03-08-2024 Creatinine [Mass/Vol] 1.79 mg/dL High 0.55-1.02 [facility] Comment on above: The validity of the calculated GFR & GFRAA in patients over 70 years has not been determined. Clinical correlation is essential. Serum or plasma urea nitroge n measurement (mass/volume)Ordered By: Joe Sanchez on 03-08-2024 Urea nitrogen [Mass/Vol] 24 mg/dL High 7-18 [facility] Sodium levelOrdered By: Yudi kirbydrew Daniel on 03-08-2024 Sodium [Moles/Vol] 134 mmol/L Low 136-145 [facility] White blood cell (WBC) count Ordered By: Joe Sanchez on 03-08-2024 WBC (Bld) [#/Vol] 8.6 10*3/uL 4.4-11.0 [facility] Absolute neutrophil countOrd ered By: Joe Sanchez on 03-01-2024 Neutrophils (Bld) [#/Vol] 5.1 10*3/uL 2.0-7.7 [facility] Basophil percentageOrdered B y: Joe Sanchez on 03-01-2024 Basophils/100 WBC (Bld) 1.6 % High 0-1 [facility] Blood urea nitrogen (BUN)/cr eatinine ratioOrdered By: Joe Sanchez on 03-01-2024 Urea nitrogen/Creatinine [Mass ratio] 15.9 mg/mg 10- [facility] Carbon dioxide measurementOr dered By: Joe Sanchez on 03-01-2024 CO2 [Moles/Vol] 26.0 mmol/L 21.0-32.0 [facility] Chloride measurementOrdered By: Joe Sanchez on 03-01-2024 Chloride [Moles/Vol] 101 mmol/L 98-107 [facility] Eosinophil percentageOrdered By: Joe Sanchez on 03-01-2024 Eosinophils/100 WBC (Bld) 3.2 % 0-5 [facility] Erythrocyte distribution wid th (RBC) [Ratio]Ordered By: Joe Sanchez on 03-01-2024 Erythrocyte distribution width (RBC) [Entitic vol] 49.1 fL High 35.1-43.9 [facility] Erythrocyte distribution wid th ratioOrdered By: Joe Sanchez on 03-01-2024 Erythrocyte distribution width (RBC) [Ratio] 14.0 % 11.6-14.6 [facility] Estimated glomerular filtrat ion rate (GFR) AmericanOrdered By: Joe Sanchez on 03-01-2024 Estimated GFR (MDRD) Amer 30 mL/min Low >60 [facility] Comment on above: GFR Calc Glomerular filtration rate ( GFR) estimationOrdered By: Joe Sanchez on 03-01-2024 Estimated GFR (MDRD) Non-Af Amer 25 mL/min Low >60 [facility] Comment on above: Non- GFR Calc Glucose measurementOrdered B y: Joe Sanchez on 03-01-2024 Glucose [Mass/Vol] 101 mg/dL 74-106 [facility] Comment on above: Fasting Glucose resu lt from 100 to 125 mg/dL suggests IMPAIRED HOMEOSTASIS per A.D.A. criteria. Hematocrit Auto (Bld) [Volum e fraction]Ordered By: Joe Sanchez on 03-01-2024 Hematocrit (Bld) [Volume fraction] 37.7 % 37-47 [facility] Hemoglobin measurementOrdere d By: Joe Sanchez on 03-01-2024 Hemoglobin (Bld) [Mass/Vol] 12.6 g/dL 12.0-15.0 [facility] Immature granulocytes/100 WB C Auto (Bld)Ordered By: Joe Sanchez on 03-01-2024 Immature granulocytes/100 WBC (Bld) 1.200 % High 0.0-0.9 [facility] Comment on above: IG% - Immature Granu locytes (promyelocytes, myelocytes and metamyelocytes) > 1% indicates that a LEFT SHIFT is Present. Lymphocytes Auto (Unsp spec) [#/Vol]Ordered By: Joe Sanchez on 03-01-2024 Lymphocytes (Bld) [#/Vol] 1.56 10*3/uL 0.83-4.51 [facility] Lymphocytes/100 WBC Auto (Un sp spec)Ordered By: Joe Sanchez on 03-01-2024 Lymphocytes/100 WBC (Bld) 19.0 % 19-41 [facility] MCV (mean corpuscular volume ) determinationOrdered By: Joe Sanchez on 03-01-2024 MCV (RBC) [Entitic vol] 96.2 fL 81-99 [facility] Mean corpuscular hemoglobin (MCH) determinationOrdered By: Joe Sanchez on 03-01-2024 MCH (RBC) [Entitic mass] 32.1 pg High 27.0-32.0 [facility] Mean corpuscular hemoglobin concentration (MCHC) determinationOrdered By: Joe Sanchez on 03-01-2024 MCHC (RBC) [Mass/Vol] 33.4 g/dL 32-36 [facility] Mean platelet volume determi nationOrdered By: Joe Sanchez on 03-01-2024 Platelet mean volume (Bld) [Entitic vol] 12.0 fL 6.2-12.0 [facility] Monocyte percentageOrdered B y: Joe Sanchez on 03-01-2024 Monocytes/100 WBC (Bld) 12.9 % High 0-10 [facility] Neutrophil percentageOrdered By: Joe Sanchez on 03-01-2024 Neutrophils/100 WBC (Bld) 62.1 % 47-70 [facility] Nucleated red blood cell per centageOrdered By: Joe Sanchez on 03-01-2024 Nucleated RBC/100 WBC (Bld) [Ratio] 0 % 0-5 [facility] Platelet countOrdered By: Lluvai Sanchez on 03-01-2024 Platelets (Bld) [#/Vol] 212 10*3/uL 150-450 [facility] Potassium measurementOrdered By: Joe Sanchez on 03-01-2024 Potassium [Moles/Vol] 4.1 mmol/L 3.5-5.1 [facility] RBC Auto (Bld) [#/Vol]Ordere d By: Joe Sanchez on 03-01-2024 RBC (Bld) [#/Vol] 3.92 10*6/uL Low 4.2-5.4 [facility] Serum anion gap measurementO rdered By: Joe Sanchez on 03-01-2024 Anion gap [Moles/Vol] 8 mmol/L 5-15 [facility] Serum or plasma calcium leah urement (mass/volume)Ordered By: Joe Sanchez on 03-01-2024 Calcium [Mass/Vol] 9.6 mg/dL 8.5-10.1 [facility] Serum or plasma creatinine m easurement (mass/volume)Ordered By: Joe Sanchez on 03-01-2024 Creatinine [Mass/Vol] 2.01 mg/dL High 0.55-1.02 [facility] Comment on above: The validity of the calculated GFR & GFRAA in patients over 70 years has not been determined. Clinical correlation is essential. Serum or plasma urea nitroge n measurement (mass/volume)Ordered By: Joe Sanchez on 03-01-2024 Urea nitrogen [Mass/Vol] 32 mg/dL High 7-18 [facility] Sodium levelOrdered By: Yudi Sanchez on 03-01-2024 Sodium [Moles/Vol] 136 mmol/L 136-145 [facility] White blood cell (WBC) count Ordered By: Joe Sanchez on 03-01-2024 WBC (Bld) [#/Vol] 8.2 10*3/uL 4.4-11.0 [facility] Cardiology Visit Reporton Cardiology Visit Report [facility] [address] [place] [address] OFFICE VISIT Date of Service: 02/07/24 MR#: [id number] Acct: [id number] Name: BRIANNE CALL Rep #: [id number] : 1940 Provider: Dr. 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 [facility] 36on 01-04-2024 36 I spoke w/ Juana in Dr. Garces's office, asking for echo order to be faxed. I placed order, Teofilo David DNP to sign, order needs faxed to Juana's attention @ [phone]. Time frame dates given to Juana for completion of OV/EKG/echo. KCCQ mailed to pt. [facility] 36 ----- Message from JEREMIE Saldaña CNP sent at 01/04/2024 1:51 PM EDT ----- Please call [facility] office and advise regarding registry requirements of one month and one yr appts and echo. Will likely need phone call for KCCQ. [facility] Office Visiton 01-04-2024 Follow-up visit [id number] Brianne Call 1940 F Date Provider Department Center 01/04/2024 [id number]-SKHXSGMÓNICA DAVID [facility] [address] No family history on file Level of Service:24268 NE OFFICE/OUTPATIENT ESTABLISHED MOD MDM 30 MIN Reason for Visit and Comments: Cardiac Valve Problem [1334] - One week post TAVR [facility] Progress Noteon 01-04-2024 Progress Note [facility] - [address] [address] Dept: [phone] Dept Visit type: Established : 1940 Reason for Visit: Cardiac Valve Problem (One week post TAVR) Assessment and Plan 1. Chronic atrial fibrillation (HCC). HR stable. Continue Apixaban 2. Severe aortic stenosis. S/p tAVR. Continue Eliquis. Will contact [facility] regarding follow up and registry requirements. SBE prophylaxis. Plan echo in one month 3. Stage 3a chronic kidney disease (HCC). Renal function remains stable post procedure. Advised that kidney function should be followed buttermaker continuous churn. GFR 27--> 46 4. Left heart failure (HCC). Improved after TAVR, EF 30%--> 50 %, continue furosemide, Aldactone, Farxiga, metoprolol (allerg to landon/ARB) Plan follow up in [place] Subjective Ms Call is an 83 yr old female with a PMH of permanent AF, HFrEF, HTN, HPL, CKD stage 3b, obesity, GERD, and severe with EF 30%, mean and peak gradients 49/71 mm Hg. She underwent cardiac cath at [facility] which showed non obstructive CAD. She underwent [...] wrist complaints. She wishes to follow in [place] as travel is difficult for her Allergies [...] 12/25/2023 Performed by Harjeet Huffman MD at [facility] OR CATARACT EXTRACTION HYSTERECTOMY No [...] specialty: Independent interpretation of tests: Mónica David, SUBMARINE DIVER - [place] PAINTER Normal [facility] BASIC METABOLIC PANELon 10-0 Anion gap [Moles/Vol] 7 mmol/L Normal 3-13 [facility] Comment on above: Performed By: #### L AB15 ####Nursing Staffing Coordinator: AIDE RUEDA ([id number])[facility] ([address] Calcium [Mass/Vol] 9.1 mg/dL Normal 8.4-10.4 [facility] Comment on above: Performed By: #### L AB15 ####Nursing Staffing Coordinator: AIDE RUEDA ([id number])[facility] ([facility])[address] [place] [address] Chloride [Moles/Vol] 108 mmol/L High 98-107 [facility] Comment on above: Performed By: #### L AB15 ####Nursing Staffing Coordinator: AIDE RUEDA ([id number])[facility] ([facility])[address] [place] [address] CO2 [Moles/Vol] 19 mmol/L Low 22-30 [facility] Comment on above: Performed By: #### L AB15 ####Nursing Staffing Coordinator: AIDE RUEDA ([id number])[facility] ([facility])[address] [place] [address] Creatinine [Mass/Vol] 1.17 mg/dL High 0.52-1.04 [facility] Comment on above: Performed By: #### L AB15 ####Nursing Staffing Coordinator: AIDE RUEDA ([id number])[facility] ([facility])[address] [place] [address] GLOMERULAR FILTRATION RATE ML/MIN/1.73 SQ M.PREDICTED 46.4 mL/min/1.73m*2 Low >60.0 [facility] Comment on above: Result Comment: Calc ulation based on the Chronic Kidney Disease Epidemiology Collaboration (CKD-EPI) equation refit without adjustment for race Performed By: #### L AB15 ####Nursing Staffing Coordinator: AIDE RUEDA ([id number])[facility] ([facility])[address] [place] [address] [place] Glucose [Mass/Vol] 121 mg/dL High 70-100 [facility] Comment on above: Performed By: #### L AB15 ####Nursing Staffing Coordinator: AIDE RUEDA ([id number])[facility] ([facility])[address] [place] [address] Potassium [Moles/Vol] 4.4 mmol/L Normal 3.5-5.1 [facility] Comment on above: Performed By: #### L AB15 ####Nursing Staffing Coordinator: AIDE RUEDA ([id number])[facility] ([facility])[address] [place] [address] Sodium [Moles/Vol] 134 mmol/L Low 135-145 [facility] Comment on above: Performed By: #### L AB15 ####Nursing Staffing Coordinator: IADE RUEDA ([id number])[facility] ([facility])[address] [place] [address] Urea nitrogen [Mass/Vol] 31 mg/dL High 7-17 [facility] Comment on above: Performed By: #### L AB15 ####Nursing Staffing Coordinator: AIDE RUEDA ([id number])[facility] ([facility])[address] [place] [address] Basic metabolic 1998 panelon 12-26-2023 Anion gap [Moles/Vol] 7 mmol/L 3 - 13 mmol/L [facility] Calcium [Mass/Vol] 9.1 mg/dL 8.4 - 10. 4 mg/dL [facility] Chloride [Moles/Vol] 108 mmol/L High 98 - 10 7 mmol/L [facility] CO2 [Moles/Vol] 19 mmol/L Low 22 - 30 mmol/L [facility] Creatinine [Mass/Vol] 1.17 mg/dL High 0.52 - 1.04 mg/dL [facility] GFR/1.73 sq M.predicted (S/P/Bld) [Vol rate/Area] 46.4 mL/min Low - PINF [facility] Comment on above: Calculation based on the Chronic Kidney Disease Epidemiology Collaboration (CKD-EPI) equation refit without adjustment for race Glucose [Mass/Vol] 121 mg/dL High 70 - 100 mg/dL [facility] Interpretation and review of laboratory results Abnormal [facility] Potassium [Moles/Vol] 4.4 mmol/L 3.5 - 5.1 mmol/L [facility] Sodium [Moles/Vol] 134 mmol/L Low 135 - 145 mmol/L [facility] Urea nitrogen [Mass/Vol] 31 mg/dL High 7 - 17 mg/dL [facility] CBC (HEMOGRAM)on 12-26-2023 Erythrocyte distribution width (RBC) [Ratio] 13.3 % Normal 11.5-15.0 [facility] Comment on above: Performed By: #### L [id number] ####Nursing Staffing Coordinator: AIDE RUEDA ([id number])[facility])[address] [place] [address] Hematocrit (Bld) [Volume fraction] 43.0 % Normal 35.0-47.0 [facility] Comment on above: Performed By: #### L AB294 ####Nursing Staffing Coordinator: AIDE RUEDA ([id number])[facility])[address] [place] [address] Hemoglobin (Bld) [Mass/Vol] 14.0 g/dL Normal 11.7-16.0 [facility] Comment on above: Performed By: #### L AB294 ####Nursing Staffing Coordinator: AIDE RUEDA ([id number])[facility])[address] [place] [address] MCH (RBC) [Entitic mass] 31.9 pg Normal 26.0-34.0 [facility] Comment on above: Performed By: #### L AB294 ####Nursing Staffing Coordinator: AIDE RUEDA ([id number])[facility])[address] [place] [address] MCHC 32.6 % Normal 30.5-36.0 [facility] Comment on above: Performed By: #### L AB294 ####Nursing Staffing Coordinator: AIDE RUEDA ([id number])[facility])[address] [place] [address] MCV (RBC) [Entitic vol] 97.9 fL Normal 77.0-99.0 [facility] Comment on above: Performed By: #### L [id number] ####Nursing Staffing Coordinator: AIDE RUEDA ([id number])[facility])[address] [place] [address] Platelet mean volume (Bld) [Entitic vol] 12.4 fL Normal 9.0-12.7 [facility] Comment on above: Performed By: #### L AB294 ####Nursing Staffing Coordinator: AIDE RUEDA ([id number])[facility] ([facility])[address] [place] [address] Platelets (Bld) [#/Vol] 154 10*3/uL Normal 140-440 [facility] Comment on above: Performed By: #### L AB294 ####Nursing Staffing Coordinator: AIDE RUEDA ([id number])[facility] ([facility])[address] [place] [address] RBC (Bld) [#/Vol] 4.39 10*6/uL Normal 3.80-5.20 [facility] Comment on above: Performed By: #### L [id number] ####Nursing Staffing Coordinator: AIDE RUEDA ([id number])[facility] ([facility])[address] [place] [address] WBC (Bld) [#/Vol] 11.6 10*3/uL High 3.6-10.7 [facility] Comment on above: Performed By: #### L [id number] ####Nursing Staffing Coordinator: AIDE RUEDA ([id number])[facility] ([facility])[address] [place] [address] CBC panel Auto (Bld)on 12-25 Erythrocyte distribution width (RBC) [Ratio] 13.3 % 11.5 - 15.0 % [facility] Hematocrit (Bld) [Volume fraction] 43.0 % 35.0 - 47.0 % [facility] Hemoglobin (Bld) [Mass/Vol] 14.0 g/dL 11.7 - 16.0 g/dL [facility] Interpretation and review of laboratory results Abnormal [facility] MCH (RBC) [Entitic mass] 31.9 pg 26.0 - 34.0 pg [facility] MCHC (RBC) [Mass/Vol] 32.6 % 30.5 - 36.0 % [facility] MCV (RBC) [Entitic vol] 97.9 fL 77.0 - 99.0 fL [facility] Platelet mean volume (Bld) [Entitic vol] 12.4 fL 9.0 - 12.7 fL [facility] Platelets (Bld) [#/Vol] 154 10*3/uL 140 - 440 10*3/uL [facility] [employer] RBC (Bld) [#/Vol] 4.39 10*6/uL 3.80 - 5.2 0 10*6/uL [facility] [employer] WBC (Bld) [#/Vol] 11.6 10*3/uL High 3.6 - 10.7 10*3/uL [facility] ECG 12-LEADon 12-26-2023 ECG 12-LEAD IMPRESSION: Atrial fibrillation with slow ventricular rate Repol abnrm suggests ischemia, diffuse leads Electronically Signed On 12-26-2023 16:26:55 EDT by Austin Carmona [facility] No Panel InformationOrdered By: Austin Carmona on 12-26-2023 P Superior 0 degrees [facility] Work Phone: NE Interval 0 ms [facility] Work Phone: QRS Superior 48 degrees [facility] Work Phone: QRSD Interval 103 ms [facility] Work Phone: QT Interval 492 ms [facility] Work Phone: QTC Interval 404 ms [facility] Work Phone: T Wave Superior -74 degrees [facility] Work Phone: [facility] Work Phone: No Panel Informationon 12-25 Atrial fibrillation with slow ventricular rate Repol abnrm suggests ischemia, diffuse leads Electronically Signed On 12-26-2023 16:26:55 EDT by Austin Carmona Austin Kruger MD - 12/26/2023 IMPRESSION: Atrial fibrillation with slow ventricular rate Repol abnrm suggests ischemia, diffuse leads Electronically Signed On 12-26-2023 16:26:55 EDT by Austin Carmona [facility] P Superior 0 degrees [facility] NE Interval 0 ms [facility] QRS Superior 22 degrees [facility] QRSD Interval 112 ms [facility] QT Interval 441 ms [facility] QTC Interval 405 ms [facility] T Wave Superior 230 degrees [facility] Austin Carmona MD - 12/26/2023 IMPRESSION: Atrial fibrillation Poor R wave progression, CONSIDER ANTERIOR INFARCT ST and T abnormality Electronically Signed On 12-26-2023 09:21:43 EDT by Austin Carmona [facility] Nursing Noteon 12-26-2023 Nursing Note Discharge instructions given to patient and daughter. Patient verbalizes understanding of medication changes and follow up appointments, and activity restrictions. Discharged to home with daughter. Normal [facility] TransthoracicOrdere d By: Christopher Ruggiero on 12-26-2023 Ao Root Index 1.47 [facility]: Aortic Root 3.1 cm [facility] Work Phone: Aortic Sinus Valsalva 3.1 cm [facility] Work Phone: Aortic Sinus Valsalva Index 1.47 cm/m2 [facility] Work Phone: Ascending Aorta 3.6 cm [facility] Work Phone: Ascending Aorta Index 1.71 cm/m2 [facility] Work Phone: AV Area by Peak Velocity 0.6 cm2 [facility] Work Phone: AV Area by VTI 1.3 cm2 [facility] Work Phone: AV AT 75.0 ms [facility] Work Phone: AV Mean Gradient 21 mmHg [facility] Work Phone: AV Mean Velocity 2.8 m/s [facility] Work Phone: AV Peak Gradient 36 mmHg [facility] Work Phone: AV Peak Velocity 3.0 m/s [facility] Work Phone: AV Velocity Ratio 0.27 [facility] Work Phone: AV VTI 71.0 cm [facility] Work Phone: RAMÓN/BSA Peak Velocity 0.3 cm2/m2 [facility] Work Phone: RAMÓN/BSA VTI 0.6 cm2/m2 [facility] [employer] Work Phone: E/E' Lateral 11.25 [facility] [employer] Work Phone: E/E' Ratio (Averaged) 16.88 [facility] [employer] Work Phone: E/E' Septal 22.50 [facility] [employer] Work Phone: EF BP 36 % Abnormal 55 - 100 % [facility] [employer] Work Phone: Est. RA Pressure 3 mmHg [facility] Work Phone: Fractional Shortening 2D 29 % 28 - 44 % [facility] [employer] Work Phone: Interpretation and review of laboratory results Abnormal [facility] [employer] Work Phone: IVC Diameter 2.2 cm [facility] [employer] Work Phone: IVSd 1.4 cm Abnormal 0.6 - 0.9 cm [facility] [employer] Work Phone: LA Diameter 4.9 cm [facility] [employer] Work Phone: LA Size Index 2.32 cm/m2 [facility] [employer] Work Phone: LA Volume 2C 111 mL Abnormal 22 - 52 mL [facility] [employer] Work Phone: LA Volume 4C 131 mL Abnormal 22 - 52 mL [facility] [employer] Work Phone: LA Volume A/L 137 mL [facility] [employer] Work Phone: LA Volume BP 127 mL Abnormal 22 - 52 mL [facility] [employer] Work Phone: LA Volume Index 2C 53 mL/m2 Abnormal 16 - 34 mL/m2 [facility] [employer] Work Phone: LA Volume Index 4C 62 mL/m2 Abnormal 16 - 34 mL/m2 [facility] [employer] Work Phone: LA Volume Index A/L 65 mL/m2 16 - 34 mL/m2 [facility] [employer] Work Phone: LA Volume Index BP 60 ml/m2 Abnormal 16 - 34 ml/m2 [facility] [employer] Work Phone: LA/AO Root Ratio 1.58 [facility] Work Phone: LV E' Lateral Velocity 8 cm/s [facility] Work Phone: LV E' Septal Velocity 4 cm/s [facility] Work Phone: LV EDV A2C 137 mL [facility] Work Phone: LV EDV A4C 145 mL [facility] Work Phone: LV EDV BP 148 mL Abnormal 56 - 104 mL [facility] Work Phone: LV EDV Index A2C 65 mL/m2 [facility] Work Phone: LV EDV Index A4C 69 mL/m2 [facility] Work Phone: LV EDV Index BP 70 mL/m2 [facility] Work Phone: LV Ejection Fraction A2C 36 % [facility] Work Phone: LV Ejection Fraction A4C 35 % [facility] Work Phone: LV ESV A2C 88 mL [facility] Work Phone: LV ESV A4C 94 mL [facility] Work Phone: LV ESV BP 95 mL Abnormal 19 - 49 mL [facility] Work Phone: LV ESV Index A2C 42 mL/m2 [facility] Work Phone: LV ESV Index A4C 45 mL/m2 [facility] Work Phone: LV ESV Index BP 45 mL/m2 [facility] Work Phone: LV Mass 2D 355.3 g Abnormal 67 - 162 g [facility] Work Phone: LV Mass 2D Index 168.4 g/m2 Abnormal 43 - 95 g/m2 [facility] Work Phone: LV RWT Ratio 0.55 [facility] Work Phone: LVIDd 5.5 cm Abnormal 3.9 - 5.3 cm [facility] Work Phone: LVIDd Index 2.61 cm/m2 [facility] Work Phone: LVIDs 3.9 cm [facility] Work Phone: LVIDs Index 1.85 cm/m2 [facility] Work Phone: LVOT Area 4.2 cm2 [facility] Work Phone: LVOT Cardiac Output 3.1 liter/mi nut e [facility] Work Phone: LVOT Diameter 2.3 cm [facility] Work Phone: LVOT Mean Gradient 2 mmHg [facility] Work Phone: LVOT Peak Gradient 3 mmHg [facility] Work Phone: LVOT Peak Velocity 0.8 m/s [facility] Work Phone: LVOT Stroke Volume Index 45.3 mL/m2 [facility] Work Phone: LVOT SV 95.5 ml [facility] Work Phone: LVOT VTI 23.0 cm [facility] Work Phone: LVOT:AV VTI Index 0.32 [facility] Work Phone: LVPWd 1.5 cm Abnormal 0.6 - 0.9 cm [facility] Work Phone: MR VTI 167.4 cm [facility] Work Phone: MV A Velocity 0.53 m/s [facility] Work Phone: MV Area by PHT 3.0 cm2 [facility] Work Phone: MV Area by VTI 2.1 cm2 [facility] Work Phone: MV E Velocity 0.90 m/s [facility] Work Phone: MV E Wave Deceleration Time 149.3 ms [facility] Work Phone: MV E/A 1.70 [facility] Work Phone: MV Max Velocity 1.2 m[facility]s [facility] Work Phone: MV Mean Gradient 2 mmHg [facility] Work Phone: MV Mean Velocity 0.6 m/s [facility] Work Phone: MV Nyquist Velocity 30 cm/s [facility] Work Phone: MV Peak Gradient 6 mmHg [facility] Work Phone: MV PHT 73.0 ms [facility] Work Phone: MV Regurg Velocity PISA 5.3 m/s S [facility] Work Phone: MV VTI 46.5 cm [facility] Work Phone: MV:LVOT VTI Index 2.02 [facility] Work Phone: RA Area 4C 65.2 mL [facility] Work Phone: RV Basal Dimension 3.4 cm [facility] Work Phone: RV Free Wall Peak S' 9 cm/s [facility] Work Phone: RV Mid Dimension 1.4 cm [facility] Work Phone: RVSP 41 mmHg [facility] Work Phone: Sinotubular Junction 2.5 cm [facility] Work Phone: TAPSE 1.7 cm 1.7 cm [facility] Work Phone: TR Max Velocity 3.10 m/s [facility] Work Phone: [facility] Work Phone: Heart Transthoracicon Left [...] on 12-26-2023 Heart rate 37 /min bpm [employer] Work Phone: Vital signson 12-26-2023 Heart rate 51 /min bpm [facility] BASIC METABOLIC PANELon 10-0 Anion gap [Moles/Vol] 9 mmol/L Normal 3-13 [facility] Comment on above: Performed By: #### L [id number] ####Nursing Staffing Coordinator: AIDE RUEDA ([id number])[facility])[address] [place] [address] Calcium [Mass/Vol] 8.5 mg/dL Normal 8.4-10.4 [facility] Comment on above: Performed By: #### L [id number] ####Nursing Staffing Coordinator: AIDE RUEAD ([id number])[facility] ([facility])[address] [place] [address] Chloride [Moles/Vol] 113 mmol/L High 98-107 [facility] Comment on above: Performed By: #### L AB15 ####Nursing Staffing Coordinator: AIDE RUEDA ([id number])[facility])[address] [place] [address] CO2 [Moles/Vol] 19 mmol/L Low 22-30 [facility] Comment on above: Performed By: #### L [id number] ####Nursing Staffing Coordinator: AIDE RUEDA ([id number])[facility])[address] [place] [address] Creatinine [Mass/Vol] 1.09 mg/dL High 0.52-1.04 [facility] Comment on above: Performed By: #### L [id number] ####Nursing Staffing Coordinator: AIDE RUEDA ([id number])[facility])[address] [place] [address] GLOMERULAR FILTRATION RATE ML/MIN/1.73 SQ M.PREDICTED 50.5 mL/min/1.73m*2 Low >60.0 [facility] Comment on above: Result Comment: Calc ulation based on the Chronic Kidney Disease Epidemiology Collaboration (CKD-EPI) equation refit without adjustment for race ORDER COMMENTS: Slightly Hemolyzed. Interpret {TESTS AFFECTED BY SLIGHT HEMOLYSIS:40707} with caution. Performed By: #### L [id number] ####Nursing Staffing Coordinator: AIDE RUEDA ([id number])[facility])[address] [place] [address] Glucose [Mass/Vol] 148 mg/dL High 70-100 [facility] Comment on above: Performed By: #### L [id number] ####Nursing Staffing Coordinator: AIDE RUEDA ([id number])[facility] ([facility])[address] [place] [address] Potassium [Moles/Vol] 4.7 mmol/L Normal 3.5-5.1 [facility] Comment on above: Performed By: #### L [id number] ####Nursing Staffing Coordinator: AIDE RUEDA ([id number])[facility] ([facility])[address] [place] [address] Sodium [Moles/Vol] 141 mmol/L Normal 135-145 [facility] Comment on above: Performed By: #### L [id number] ####Nursing Staffing Coordinator: AIDE RUEDA ([id number])[facility] ([facility])[address] [place] [address] Urea nitrogen [Mass/Vol] 28 mg/dL High 7-17 [facility] Comment on above: Performed By: #### L [id number] ####Nursing Staffing Coordinator: AIDE RUEDA ([id number])[facility] ([facility])[address] [place] [address] BLOOD TYPE AND SCREEN GELon 12-25-2023 ABO GROUPING O Normal [facility] Comment on above: Performed By: #### L [id number] #### Nursing Staffing Coordinator: AIDE RUEDA ([id number]) [facility] ([facility]) [address] [place] [address] RH TYPE IN BLOOD Positive Normal [facility] Comment on above: Performed By: #### L [id number] #### Nursing Staffing Coordinator: AIDE RUEDA ([id number]) [facility] ([facility]) [address] [place] [address] [place] Basic metabolic 1998 panelon 12-25-2023 Anion gap [Moles/Vol] 9 mmol/L 3 - 13 mmol/L [facility] Calcium [Mass/Vol] 8.5 mg/dL 8.4 - 10. 4 mg/dL [facility] Chloride [Moles/Vol] 113 mmol/L High 98 - 10 7 mmol/L [facility] CO2 [Moles/Vol] 19 mmol/L Low 22 - 30 mmol/L [facility] Creatinine [Mass/Vol] 1.09 mg/dL High 0.52 - 1.04 mg/dL [facility] GFR/1.73 sq M.predicted (S/P/Bld) [Vol rate/Area] 50.5 mL/min Low - PINF [facility] Comment on above: Calculation based on the Chronic Kidney Disease Epidemiology Collaboration (CKD-EPI) equation refit without adjustment for race Glucose [Mass/Vol] 148 mg/dL High 70 - 100 mg/dL [facility] Interpretation and review of laboratory results Abnormal [facility] Potassium [Moles/Vol] 4.7 mmol/L 3.5 - 5.1 mmol/L [facility] Sodium [Moles/Vol] 141 mmol/L 135 - 145 mmol/L [facility] Urea nitrogen [Mass/Vol] 28 mg/dL High 7 - 17 mg/dL [facility] Slightly Hemolyzed. Interpret {TESTS AFFECTED BY SLIGHT HEMOLYSIS:68202} with caution. [facility] Blood type and Crossmatch pa justin (Bld)on 12-25-2023 ABO group Nom (Bld) O [facility] Blood group antibody screen GEL Ql Negative [facility] D Ag Ql (RBC) [facility] CBC (HEMOGRAM)on 12-25-2023 Erythrocyte distribution width (RBC) [Ratio] 13.3 % Normal 11.5-15.0 [facility] Comment on above: Performed By: #### L [id number] ####Nursing Staffing Coordinator: AIDE RUEDA ([id number])[address] Hematocrit (Bld) [Volume fraction] 39.5 % Normal 35.0-47.0 [facility] Comment on above: Performed By: #### L [id number] ####Nursing Staffing Coordinator: AIDE RUEDA ([id number])[facility])[address] [place] [address] Hemoglobin (Bld) [Mass/Vol] 13.0 g/dL Normal 11.7-16.0 [facility] Comment on above: Performed By: #### L [id number] ####Nursing Staffing Coordinator: AIDE RUEDA ([id number])[facility])[address] [place] [address] MCH (RBC) [Entitic mass] 31.9 pg Normal 26.0-34.0 [facility] Comment on above: Performed By: #### L [id number] ####Nursing Staffing Coordinator: AIDE RUEDA ([id number])[facility])[address] [place] [address] MCHC 32.9 % Normal 30.5-36.0 [facility] Comment on above: Performed By: #### L [id number] ####Nursing Staffing Coordinator: AIDE RUEDA ([id number])[facility])[address] [place] [address] MCV (RBC) [Entitic vol] 97.1 fL Normal 77.0-99.0 [facility] Comment on above: Performed By: #### L [id number] ####Nursing Staffing Coordinator: AIDE RUEDA ([id number])[facility])[address] [place] [address] Platelet mean volume (Bld) [Entitic vol] 12.2 fL Normal 9.0-12.7 [facility] Comment on above: Performed By: #### L [id number] ####Nursing Staffing Coordinator: AIDE RUEDA ([id number])[facility])[address] [place] [address] Platelets (Bld) [#/Vol] 140 10*3/uL Normal 140-440 [facility] Comment on above: Performed By: #### L [id number] ####Nursing Staffing Coordinator: AIDE RUEDA ([id number])[facility])[address] [place] [address] RBC (Bld) [#/Vol] 4.07 10*6/uL Normal 3.80-5.20 [facility] Comment on above: Performed By: #### L [id number] ####Nursing Staffing Coordinator: AIDE RUEDA ([id number])[facility] ([facility])[address] [place] [address] WBC (Bld) [#/Vol] 9.1 10*3/uL Normal 3.6-10.7 [facility] Comment on above: Performed By: #### L [id number] ####Nursing Staffing Coordinator: AIDE RUEDA ([id number])[facility] ([facility])[address] [place] [address] CBC panel Auto (Bld)on 12-24 Erythrocyte distribution width (RBC) [Ratio] 13.3 % 11.5 - 15.0 % [facility] Hematocrit (Bld) [Volume fraction] 39.5 % 35.0 - 47.0 % [facility] Hemoglobin (Bld) [Mass/Vol] 13.0 g/dL 11.7 - 16.0 g/dL [facility] Interpretation and review of laboratory results Normal [facility] MCH (RBC) [Entitic mass] 31.9 pg 26.0 - 34.0 pg [facility] MCHC (RBC) [Mass/Vol] 32.9 % 30.5 - 36.0 % [facility] MCV (RBC) [Entitic vol] 97.1 fL 77.0 - 99.0 fL [facility] Platelet mean volume (Bld) [Entitic vol] 12.2 fL 9.0 - 12.7 fL [facility] Platelets (Bld) [#/Vol] 140 10*3/uL 140 - 440 10*3/uL [facility] RBC (Bld) [#/Vol] 4.07 10*6/uL 3.80 - 5.2 0 10*6/uL [facility] WBC (Bld) [#/Vol] 9.1 10*3/uL 3.6 - 10.7 10*3/uL [facility] Cardiac catheterization stud yon 12-25-2023 Successful [id number] TAVR with a 23mm soumya S3u, via [...] Via the left femoral vein, a 6 Mozambican sheath was placed and temporary pacing wire was placed into the RV apex with appropriate capture, in addition sterile tubing was attached and given the anesthesia for central access. Via right radial artery, a 6-Mozambican sheath was placed and the pigtail catheter was placed into the aortic annulus with confirmation the implant angle. Via the left femoral artery, a 6-Mozambican sheath was placed. The patient was then heparinized. Next, two Perclose devices were used using the pre-close strategy. A Super Stiff wire was then placed through the second Perclose into the descending aorta. Then, a 14-Mozambican Soumya E-sheath was introduced over the wire [...] of your patient while hospitalized at [facility]. I will continue to follow along while hospitalized. Please do not hesitate to call with any questions. [facility] [employer] No Panel Informationon 12-24 Blood Expiration Date S [facility] [employer] Blood Expiration Date S [facility] [employer] Crossmatch interpretation COMP [employer] Dispense Status Crossmatch [facility] Blood Type 5100 [facility] PRODUCT CODE [id number] [facility] PRODUCT CODE [id number] [employer] Unit ABO O [facility] Unit Number [id number] [facility] Unit Number [id number] [facility] RH Positive [facility] [employer] Unit Volume 300 mL [facility] [employer] Op Noteon 12-25-2023 Op Note Date of [...] The valve was passed through the 14 Mozambican sapient E sheath into the descending thoracic [...] was decannulated transferred stable to recovery. Normal [facility] US Heart TransthoracicOrdere d By: Otto Fernandez on 12-25-2023 AV Area (Pre-TAVR) 0.3 cm2 [facility] Work Phone: AV Area by Peak Velocity 0.7 cm2 [facility] Work Phone: AV Area by VTI 0.7 cm2 [facility] Work Phone: AV Mean Gradient 14 mmHg [facility] Work Phone: AV Mean Gradient (Pre-TAVR) 59 mmHg [facility] Work Phone: AV Mean Velocity 1.7 m/s [facility] Work Phone: AV Peak Gradient 25 mmHg [facility] Work Phone: AV Peak Gradient (Pre-TAVR) 93 mmHg [facility] Work Phone: AV Peak Velocity 2.5 m/s [facility] Work Phone: AV Peak Velocity (Pre-TAVR) 4.8 m/s [facility] Work Phone: AV Velocity Ratio 0.20 [facility] Work Phone: AV VTI 60.2 cm [facility] Work Phone: RAMÓN/BSA Peak Velocity 0.3 cm2/m2 [facility] Work Phone: RAMÓN/BSA VTI 0.3 cm2/m2 [facility] Work Phone: Est. RA Pressure 3 mmHg [facility] Work Phone: LVOT Area 3.1 cm2 [facility] Work Phone: LVOT Cardiac Output 1.6 liter/mi nut e [facility] Work Phone: LVOT Diameter 2.0 cm [facility] Work Phone: LVOT Mean Gradient 1 mmHg [facility] Work Phone: LVOT Peak Gradient 1 mmHg [facility] Work Phone: LVOT Peak Velocity 0.5 m/s [facility] [employer] Work Phone: LVOT Stroke Volume Index 20.6 mL/m2 [facility] [employer] Work Phone: LVOT SV 42.7 ml [facility] Work Phone: LVOT VTI 13.6 cm [facility] Work Phone: LVOT:AV VTI Index 0.23 [facility] Work Phone: RVSP 51 mmHg [facility] Work Phone: TR Max Velocity 3.45 m/s [facility] Work Phone: TR Peak Gradient 48 mmHg [facility] Work Phone: [facility] Work Phone: Heart Transthoracicon Aortic [...] TAVR [facility] 1940 [id number] Exam Date/Time: 12/12/2023 10:40 Procedure: CT ANGIOGRAM [...] 12/22/2023 11:10 AM EDT --------ORIGINAL REPORT -------- [facility] Val[facility] Cardiovascular CTA Indication: 83 year-old woman with severe aortic stenosis, being evaluated for transcatheter aortic valve implantation. Technique: Computed tomography of the heart, thoracoabdominal aorta, and iliofemoral system was performed using a [employer] Aquilion One 320 detector scanner. Images were [...] VELEZ MEGGAN Reason For Exam: aortic stenosis [facility] CTA Indication: 83 year-old woman with severe aortic stenosis, being evaluated for transcatheter aortic valve implantation. Technique: Computed tomography of the heart, thoracoabdominal aorta, and iliofemoral system was performed usi (more content not included)... Normal [facility] 36on 12-21-2023 36 Patient has stage 3 b- 4 CKD, stable compared to previous. OK to proceed. [facility] 36 BMP received, reviewed, WHIT to enter, Creat 1.9 GFR 27. Teofilo David CNP to review. [facility] 36 I called [facility] for BMP, left message w/ OP lab to fax results. [place] [id number] 36 I can not make any changes or cx the No Show b/c it's past. [place] [id number] 36 Name of caller: Brianne Contact phone number: [phone] Relationship to Patient: patient Provider: Mónica VOGEL Practice: [facility] Chief Complaint/Reason for Call: Patient had [...] business hours to return their call: N/A [place] [id number] 36 Lab order faxed to [facility] [phone]/[address] 12-14-2023 36 Per Teofilo David DNP, will get BMP done on 12/19/23 in [place], RX for Prednisone pended. [place] to fax lab order to [facility], pt notified via phone and verbalizes understanding. [address] 12-13-2023 36 Pt returned my call, no further issues w/ itching/hives from contrast allergy. I reviewed need for BMP and Prednisone before TAVR. Of note, pt was unaware of any renal insufficiency in the past. Will discuss timing of BMP w/ Teofilo David DNP. [facility] 36 Per Teofilo David DNP, pt had allergic reaction to CTA contrast yesterday, and pt with increase in Creat. Plan for Dye Allergy Prep meds will be needed, and repeat BMP. I left vm message for pt to return call. Normal [facility] BLOOD TYPE AND SCREEN GELon 12-12-2023 ABO GROUPING O Normal [facility] Comment on above: Performed By: #### L [id number] ####Nursing Staffing Coordinator: AIDE RUEDA ([id number])[facility] ([facility])[address] [place] [address] RH TYPE IN BLOOD Positive Normal [facility] Comment on above: Performed By: #### L [id number] ####Nursing Staffing Coordinator: AIDE RUEDA ([id number])[facility] ([facility])[address] [place] [address] Blood type and Crossmatch pa justin (Bld)on 12-12-2023 ABO group Nom (Bld) O [facility] Blood group antibody screen GEL Ql Negative [facility] D Ag Ql (RBC) Positive [facility] CBC W Auto Differential pane l (Bld)on 12-12-2023 Basophils (Bld) [#/Vol] 0.1 10*3/uL 0.0 - 0.2 10*3/uL [facility] Basophils/100 WBC (Bld) 1.3 % 0.0 - 2.0 % [facility] Eosinophils (Bld) [#/Vol] 0.1 10*3/uL 0.0 - 0.5 10*3/uL [facility] Eosinophils/100 WBC (Bld) 2.0 % 0.0 - 6.0 % [facility] Erythrocyte distribution width (RBC) [Ratio] 13.1 % 11.5 - 15.0 % [facility] Hematocrit (Bld) [Volume fraction] 48.1 % High 35.0 - 47.0 % [facility] [employer] Hemoglobin (Bld) [Mass/Vol] 16.0 g/dL 11.7 - 16.0 g/dL [facility] [employer] Immature granulocytes (Bld) [#/Vol] 0.1 10*3/uL High NINF - 0.1 10*3/uL [facility] [employer] Immature granulocytes/100 WBC (Bld) 0.7 % 0.0 - 2.0 % [facility] Interpretation and review of laboratory results Abnormal [facility] Lymphocytes (Bld) [#/Vol] 1.6 10*3/uL 1.0 - 4.3 10*3/uL [facility] Lymphocytes/100 WBC (Bld) 23.0 % 15.0 - 45.0 % [facility] MCH (RBC) [Entitic mass] 31.7 pg 26.0 - 34.0 pg [facility] MCHC (RBC) [Mass/Vol] 33.3 % 30.5 - 36.0 % [facility] MCV (RBC) [Entitic vol] 95.2 fL 77.0 - 99.0 fL [facility] Monocytes (Bld) [#/Vol] 1.0 10*3/uL High 0.0 - 0.9 10*3/uL [facility] Monocytes/100 WBC (Bld) 14.2 % High 5.0 - 13.0 % [facility] Neutrophils (Bld) [#/Vol] 4.0 10*3/uL 1.8 - 7.5 10*3/uL [facility] Neutrophils/100 WBC (Bld) 58.8 % 38.0 - 82.0 % [facility] Nucleated RBC/100 WBC (Bld) [Ratio] 0.0 % [facility] [employer] Platelet mean volume (Bld) [Entitic vol] 13.0 fL High 9.0 - 12.7 fL [facility] Platelets (Bld) [#/Vol] 194 10*3/uL 140 - 440 10*3/uL [facility] RBC (Bld) [#/Vol] 5.05 10*6/uL 3.80 - 5.2 0 10*6/uL [facility] WBC (Bld) [#/Vol] 6.9 10*3/uL 3.6 - 10.7 10*3/uL [facility] CBC WITH AUTO DIFFERENTIALon 12-12-2023 Basophils (Bld) [#/Vol] 0.1 10*3/uL Normal 0.0-0.2 [facility] Comment on above: Performed By: #### L [id number] ####Nursing Staffing Coordinator: AIDE RUEDA ([id number])[address] Basophils/100 WBC (Bld) 1.3 % Normal 0.0-2.0 [facility] Comment on above: Performed By: #### L [id number] ####Nursing Staffing Coordinator: AIDE RUEDA ([id number])[facility])[address] [place] [address] Eosinophils (Bld) [#/Vol] 0.1 10*3/uL Normal 0.0-0.5 [facility] Comment on above: Performed By: #### L [id number] ####Nursing Staffing Coordinator: AIDE RUEDA ([id number])[facility] ([facility])[address] [place] [address] Eosinophils/100 WBC (Bld) 2.0 % Normal 0.0-6.0 [facility] Comment on above: Performed By: #### L [id number] ####Nursing Staffing Coordinator: AIDE RUEDA ([id number])[facility])[address] [place] [address] Erythrocyte distribution width (RBC) [Ratio] 13.1 % Normal 11.5-15.0 [facility] Comment on above: Performed By: #### L [id number] ####Nursing Staffing Coordinator: AIDE RUEDA ([id number])[facility])[address] [place] [address] Hematocrit (Bld) [Volume fraction] 48.1 % High 35.0-47.0 [facility] Comment on above: Performed By: #### L [id number] ####Nursing Staffing Coordinator: AIDE RUEDA ([id number])[facility])[address] [place] [address] Hemoglobin (Bld) [Mass/Vol] 16.0 g/dL Normal 11.7-16.0 [facility] Comment on above: Performed By: #### L [id number] ####Nursing Staffing Coordinator: AIDE RUEDA ([id number])[facility])[address] [place] [address] IMMATURE GRANS % 0.7 % Normal 0.0-2.0 [facility] Comment on above: Performed By: #### L [id number] ####Nursing Staffing Coordinator: AIDE RUEDA ([id number])[facility])[address] [place] [address] IMMATURE GRANS ABSOLUTE 0.1 10*3/uL High <0.1 [facility] Comment on above: Performed By: #### L [id number] ####Nursing Staffing Coordinator: AIDE RUEDA ([id number])[facility])[address] [place] [address] Lymphocytes (Bld) [#/Vol] 1.6 10*3/uL Normal 1.0-4.3 [facility] Comment on above: Performed By: #### L [id number] ####Nursing Staffing Coordinator: AIDE RUEDA ([id number])[address] Lymphocytes/100 WBC (Bld) 23.0 % Normal 15.0-45.0 [facility] Comment on above: Performed By: #### L [id number] ####Nursing Staffing Coordinator: AIDE RUEDA ([id number])[facility])[address] [place] [address] MCH (RBC) [Entitic mass] 31.7 pg Normal 26.0-34.0 [facility] Comment on above: Performed By: #### L [id number] ####Nursing Staffing Coordinator: AIDE RUEDA ([id number])[facility])[address] [place] [address] MCHC 33.3 % Normal 30.5-36.0 [facility] Comment on above: Performed By: #### L [id number] ####Nursing Staffing Coordinator: AIDE RUEDA ([id number])[facility])[address] [place] [address] MCV (RBC) [Entitic vol] 95.2 fL Normal 77.0-99.0 [facility] Comment on above: Performed By: #### L [id number] ####Nursing Staffing Coordinator: AIDE RUEDA ([id number])[facility])[address] [place] [address] Monocytes (Bld) [#/Vol] 1.0 10*3/uL High 0.0-0.9 [facility] Comment on above: Performed By: #### L [id number] ####Nursing Staffing Coordinator: AIDE RUEDA ([id number])[facility] ([facility])[address] [place] [address] Monocytes/100 WBC (Bld) 14.2 % High 5.0-13.0 [facility] Comment on above: Performed By: #### L [id number] ####Nursing Staffing Coordinator: AIDE RUEDA ([id number])[facility] ([facility])[address] [place] [address] NEUTROPHILS ABSOLUTE 4.0 10*3/uL Normal 1.8-7.5 [facility] Comment on above: Performed By: #### L [id number] ####Nursing Staffing Coordinator: AIDE RUEDA ([id number])[facility] ([facility])[address] [place] [address] Neutrophils/100 WBC (Bld) 58.8 % Normal 38.0-82.0 [facility] Comment on above: Performed By: #### L [id number] ####Nursing Staffing Coordinator: AIDE RUEDA ([id number])[facility] ([facility])[address] [place] [address] NRBC 0.0 /100 WBCs Normal 0.0-2.0 [facility] Comment on above: Performed By: #### L [id number] ####Nursing Staffing Coordinator: AIDE RUEDA ([id number])[facility] ([facility])[address] [place] [address] Platelet mean volume (Bld) [Entitic vol] 13.0 fL High 9.0-12.7 [facility] Comment on above: Performed By: #### L [id number] ####Nursing Staffing Coordinator: AIDE RUEDA ([id number])[facility] ([facility])[address] [place] [address] [place] Platelets (Bld) [#/Vol] 194 10*3/uL Normal 140-440 [facility] Comment on above: Performed By: #### L [id number] ####Nursing Staffing Coordinator: AIDE RUEDA ([id number])[facility])[address] [place] [address] RBC (Bld) [#/Vol] 5.05 10*6/uL Normal 3.80-5.20 [facility] Comment on above: Performed By: #### L [id number] ####Nursing Staffing Coordinator: AIDE RUEDA ([id number])[facility])[address] [place] [address] WBC (Bld) [#/Vol] 6.9 10*3/uL Normal 3.6-10.7 [facility] Comment on above: Performed By: #### L [id number] ####Nursing Staffing Coordinator: AIDE RUEDA ([id number])[facility])[address] [place] [address] COMPREHENSIVE METABOLIC PANE [place] 12-12-2023 Albumin [Mass/Vol] 4.1 g/dL Normal 3.5-5.0 [facility] Comment on above: Performed By: #### L AB106, LAB17 ####Nursing Staffing Coordinator: AIDE RUEDA ([id number])[facility])[address] [place] [address] ALP [Catalytic activity/Vol] 70 U/L Normal 38-126 [facility] Comment on above: Performed By: #### L [id number], LAB17 ####Nursing Staffing Coordinator: AIDE RUEDA ([id number])[facility])[address] [place] [address] ALT [Catalytic activity/Vol] 18 U/L Normal 0-34 [facility] Comment on above: Performed By: #### L AB106, LAB17 ####Nursing Staffing Coordinator: AIDE RUEDA ([id number])[facility])[address] [place] [address] Anion gap [Moles/Vol] 11 mmol/L Normal 3-13 [facility] Comment on above: Performed By: #### L AB106, LAB17 ####Nursing Staffing Coordinator: AIDE RUEDA ([id number])[facility] ([facility])[address] [place] [address] AST [Catalytic activity/Vol] 52 U/L High 15-46 [facility] Comment on above: Performed By: #### L AB106, LAB17 ####Nursing Staffing Coordinator: AIDE RUEDA ([id number])[facility] ([facility])[address] [place] [address] Bilirubin [Mass/Vol] 1.0 mg/dL Normal 0.2-1.3 [facility] Comment on above: Performed By: #### L AB106, LAB17 ####Nursing Staffing Coordinator: AIDE RUEDA ([id number])[facility] ([facility])[address] [place] [address] Calcium [Mass/Vol] 9.3 mg/dL Normal 8.4-10.4 [facility] Comment on above: Performed By: #### L AB106, LAB17 ####Nursing Staffing Coordinator: AIDE RUEDA ([id number])[facility] ([facility])[address] [place] [address] [place] Chloride [Moles/Vol] 103 mmol/L Normal 98-107 [facility] Comment on above: Performed By: #### L AB106, LAB17 ####Nursing Staffing Coordinator: AIDE RUEDA ([id number])[facility] ([facility])[address] [place] [address] [place] CO2 [Moles/Vol] 22 mmol/L Normal 22-30 [facility] Comment on above: Performed By: #### L AB106, LAB17 ####Nursing Staffing Coordinator: AIDE RUEDA ([id number])[facility] ([facility])[address] [place] [address] [place] Creatinine [Mass/Vol] 1.95 mg/dL High 0.52-1.04 [facility] Comment on above: Performed By: #### L AB106, LAB17 ####Nursing Staffing Coordinator: AIDE RUEDA ([id number])[facility])[address] [place] [address] [place] GLOMERULAR FILTRATION RATE ML/MIN/1.73 SQ M.PREDICTED 25.1 mL/min/1.73m*2 Low >60.0 [facility] Comment on above: Result Comment: Calc ulation based on the Chronic Kidney Disease Epidemiology Collaboration (CKD-EPI) equation refit without adjustment for race ORDER COMMENTS: Slightly Hemolyzed. Interpret Potassium, Alkaline Phosphatase, and AST with caution. Performed By: #### L AB106, LAB17 ####Nursing Staffing Coordinator: AIDE RUEDA ([id number])[facility])[address] [place] [address] [place] Glucose [Mass/Vol] 107 mg/dL High 70-100 [facility] Comment on above: Performed By: #### L AB106, LAB17 ####Nursing Staffing Coordinator: AIDE RUEDA ([id number])[facility])[address] [place] [address] [place] Potassium [Moles/Vol] 4.3 mmol/L Normal 3.5-5.1 [facility] Comment on above: Performed By: #### L AB106, LAB17 ####Nursing Staffing Coordinator: AIDE RUEDA ([id number])[facility])[address] [place] [address] Protein [Mass/Vol] 7.9 g/dL Normal 6.3-8.2 [facility] Comment on above: Performed By: #### L AB106, LAB17 ####Nursing Staffing Coordinator: AIDE RUEDA ([id number])[facility])[address] [place] [address] [place] Sodium [Moles/Vol] 136 mmol/L Normal 135-145 [facility] Comment on above: Performed By: #### L AB106, LAB17 ####Nursing Staffing Coordinator: AIDE RUEDA ([id number])[facility])[address] [place] [address] [place] Urea nitrogen [Mass/Vol] 36 mg/dL High 7-17 [facility] Comment on above: Performed By: #### L AB106, LAB17 ####Nursing Staffing Coordinator: AIDE RUEDA ([id number])[facility] ([address] Comprehensive metabolic 1998 panelon 12-12-2023 Albumin [Mass/Vol] 4.1 g/dL 3.5 - 5.0 g/dL [facility] ALP [Catalytic activity/Vol] 70 U/L 38 - 126 U/L [facility] ALT [Catalytic activity/Vol] 18 U/L 0 - 34 U/L [facility] Anion gap [Moles/Vol] 11 mmol/L 3 - 13 mmol/L [facility] AST [Catalytic activity/Vol] 52 U/L High 15 - 46 U/L [facility] Bilirubin [Mass/Vol] 1.0 mg/dL 0.2 - 1 .3 mg/dL [facility] Calcium [Mass/Vol] 9.3 mg/dL 8.4 - 10. 4 mg/dL [facility] Chloride [Moles/Vol] 103 mmol/L 98 - 10 7 mmol/L [facility] CO2 [Moles/Vol] 22 mmol/L 22 - 30 mmol/L [facility] Creatinine [Mass/Vol] 1.95 mg/dL High 0.52 - 1.04 mg/dL [facility] GFR/1.73 sq M.predicted (S/P/Bld) [Vol rate/Area] 25.1 mL/min Low - PINF [facility] Comment on above: Calculation based on the Chronic Kidney Disease Epidemiology Collaboration (CKD-EPI) equation refit without adjustment for race Glucose [Mass/Vol] 107 mg/dL High 70 - 100 mg/dL [facility] Interpretation and review of laboratory results Abnormal [facility] Potassium [Moles/Vol] 4.3 mmol/L 3.5 - 5.1 mmol/L [facility] Protein [Mass/Vol] 7.9 g/dL 6.3 - 8.2 g/dL [facility] Sodium [Moles/Vol] 136 mmol/L 135 - 145 mmol/L [facility] Urea nitrogen [Mass/Vol] 36 mg/dL High 7 - 17 mg/dL [facility] Slightly Hemolyzed. Interpret Potassium, Alkaline Phosphatase, and AST with caution. [facility] NT PRO BNPon 12-12-2023 Natriuretic peptide B (Bld) [Mass/Vol] 2261 pg/mL High <450 [facility] Comment on above: Performed By: #### L AB106, LAB17 ####Nursing Staffing Coordinator: AIDE RUEDA ([id number])[facility] ([facility])[address] [place] [address] Natriuretic peptide B [Mass/ Vol]Ordered By: Bob Flores on 12-12-2023 Interpretation and review of laboratory results Abnormal [facility] Natriuretic peptide B (Bld) [Mass/Vol] 2261 pg/mL High NINF - 450 pg/mL [facility] Office Visiton 12-12-2023 Follow-up visit [id number] Brianne Call 1940 F Date Provider Department Center 12/12/2023 [id number]-JXMKGMMÓNICA DAVID [facility] [address] No family history on file Level of Service:59638 NE OFFICE/OUTPATIENT ESTABLISHED MOD MDM 30 MIN Reason for Visit and Comments: Cardiac Valve Problem [1334] - Patient seen in private OP procedure area for H + P update and education prior to scheduled TAVR Normal [facility] Progress Noteon 12-12-2023 Progress Note Pts symptoms of the reaction have all gone away. Pt states she feels back to normal. Normal [facility] Progress Note [facility] - [facility] [address] [facility] [address] Dept: [phone] Dept Visit type: Established : 1940 Reason [...] mm Hg. She underwent cardiac cath at [place] which showed non obstructive CAD. He kidney [...] injection 100 mg 100 mg IntraVENous Once Mnóica David, SUBMARINE DIVER - [place] PAINTER sodium chloride 0.9 % bolus 500 mL [...] D deficiency Social (more content not included)... [facility] 12-08-2023 36 Approved [id number] 12/24-12/26/23 Calendars and Snapboard updated. [facility] 36 Messaged central scheduling through secure chat and CTA TAVR scheduled at [facility] at 11 am. [facility] 12-07-2023 36 BJennifer Currie RT is out of office until Mon12/11/23. I spoke w/ [facility] Radiology Dept, I was sent to a dike supervisor , I left vm message re: add on CTA @ [facility] for 12/11. [facility] 36 I spoke w/ Katherin in CS, re: [facility] IV hydration, having difficulty with adding pt, she will speak w/ coworker and call me back. I spoke w/ Jennifer RN in POP, they have pt on their schedule. I spoke w/ patient, reviewed NPO 4 hrs prior, all questions answered. I also spoke w/ Rossana in CS, CTA needs moved to [facility]. [facility] 36on 12-06-2023 36 Hydration orders faxed,confirmed and scanned under Media Submitted auth request on [facility]. Pending # [id number] On all 3 calendars. [place] [address] I spoke w/ pt and dtr Shama [...] 9:15, [place] notified to schedule/PA/snap board/calendars. [facility] 36 Patient returned my call. No issues with Right radial cath site, cath performed by Dr. Garces in [place], I called to have images pushed to PACS and fax report w/ recent labs. Labs reviewed from [place], drawn 11/28/23 GFR 31 prior to cath. Teofilo Velez CNP notified to review and advise if IV hydration is needed. [place] [address] I spoke w/ Medina in Dr. Garces's office, confirmed LHC completed, she will push images to PACS and fax report & lab results. I left vm message for dtr Shama to review pt status, discuss next steps BMP/CTA. [facility] 36on 12-05-2023 36 Chart note done. I faxed it and the EKG tracings to [phone]/[place] [address] [address] Huffman verbally notified. [facility] 36 Medina from [facility] called requesting last OV note but PB has not finished yet. (11/22/23) [phone] They need the most recent EKG wave forms as well. Normal [facility] 36on 11-28-2023 36 Spoke w/ Juana @ [facility], cath scheduled for 12/04/23 w/ Dr. Garces. Normal [facility] ECG 12 lead - CLINIC PERFORM EDon 11-25-2023 Atrial fibrillation -Old anteroseptal infarct. -Diffuse nonspecific T-abnormality. ABNORMAL [facility] 36on 11-22-2023 36 Patient seen in Heart valve Clinic yesterday. Dr. Huffman spoke w/ Dr. Garces @ [facility], agreed for R/LHC to be done in [place]. I spoke w/ Maggie RN in Dr. Garces' office, asked her to call me back with cath date. Need to expedite TAVR due to pt symptoms, will need to coordinate CTA, pt does have CKD, last creat was 1.38 done 08/10 scanned in media. Normal [facility] Office Visiton 11-21-2023 Follow-up visit [id number] Brianne Call 1940 F Date Provider Department Center 11/21/2023 41921-VKGZFTHADDEUS MCKEON [facility] [address] No family history on file Level of Service:15208 NE OFFICE/OUTPATIENT NEW MODERATE MDM 45 MINUTES Reason for Visit and Comments: Shortness of Breath [798159] Normal [facility] Follow-up visit [id number] Brianne Call 1940 F Date Provider Department Center 11/21/2023 22968-KLPOTYJUAN REED [facility] [address] No family history on file Level of Service:28570 NE OFFICE/OUTPATIENT NEW HIGH MDM 60 MINUTES Reason for Visit and Comments: Cardiac Valve Problem [1334] Normal [facility] Follow-up visit [id number] Brianne Call 1940 F Date Provider Department Center 11/21/2023 41033-GJNCNHVIFMXVHARJEET HUFFMAN [facility] [address] No family history on file Level of Service:23678 NE OFFICE/OUTPATIENT NEW HIGH MDM 60 MINUTES Reason for Visit and Comments: Cardiac Valve Problem [1334] Normal [facility] PATINSon 11-21-2023 [facility] GERIATRICS DISCHARGE INSTRUCTIONS: Follow-up with [facility] (phone: [phone] fax: [phone]) as needed for memory testing. Please BEGIN [...] age and increased risk of falls. Normal [facility] Progress Noteon 11-21-2023 Progress Note [facility] C[facility] [address] [facility] [address] Dept: [phone] Dept Loc: [phone] Today's Visit Location: TAVR (transcather aortic valve replacement) Clinic [facility] [address] [place] [address] Visit type: Senior Health Assessment at TAVR (transcather aortic valve replacement) Clinic Visit Date: 11/21/2023 Reason for Visit: Shortness of Breath Assessment and Plan 1. Nonrheumatic aortic valve stenosis Assessment & Plan: S/p AV replacement by Dr. Nagy in 201209/22/23 Transthoracic Echo (TTE) noted severe aortic stenosis. Mean Gradient of 49. Dr. Garces in [place]. No aortic valve area mentioned. I agree with cardiology plan as discussed with big data hadoop developer Dr. Huffman and CTS Dr. Reed on [...] Patient has already named her Power of Maintenance Repairer for Healthcare and Finances (Both are her daughter Shama López) I recommended patient follow-up with [facility] (phone: [phone] fax: [phone]) as needed for memory testing. 4. Drug-induced [...] Mean Gradient of 49. Dr. Garces in [place]. No aortic valve area mentioned. A fib [...] no=0 points)0 - patient rents room from [facility]. Rajiv (son) lives w pt Reduce [...] pandemic. Revi (more content not included)... Normal [facility] Progress Note HR 58 bpm today but no syncope, presyncope, falls Patient asymptomatic today Patient taking lopressor 12.5mg po bid - I encouraged patient to discuss with her cardiologists/PCP (primary care provider) regarding change of meds given her advanced age and increased risk of falls Normal [facility] Progress Note [facility] Medical Group: Cardiothoracic Surgery Multidisciplinary Heart Valve Clinic Date: 11/21/23 Patient:Brianne Call 1940 83 y.o. female [id number] Subjective: HPI: Brianne Call 83 y.o. referred [...] reactive b (more content not included)... Normal [facility] Progress Note Chronic Patient with occasional word-finding difficulties I suspect either normal memory loss for aging or possibly MCI (Mild Cognitive Impairment) Patient has already named her Power of Maintenance Repairer for Healthcare and Finances (Both are her daughter Shama López) I recommended patient follow-up with [facility] (phone: [phone] fax: [phone]) as needed for memory testing. Normal [facility] Progress Note Chronic; Stable Asymptomatic May be nearing renal (kidney) dysfunction requiring reduced dose of eliquis (given Cr nearly 1.5 in past and patient's age >80 yo). May need eliquis 2.5mg po bid instead of 5mg po bid in future pending renal (kidney) function Normal [facility] Progress Note meds reviewed; appropriate May [...] missing or doubling up on meds Normal [facility] Progress Note S/p AV replacement by Dr. Nagy in 201209/22/23 Transthoracic Echo (TTE) noted severe aortic stenosis. Mean Gradient of 49. Dr. Garces in [place]. No aortic valve area mentioned. I agree with cardiology plan as discussed with big data hadoop developer Dr. Huffman and CTS Dr. Reed on same date regarding next steps for further workup/treatment of cardiac disease which likely includes heart cath +/- TAVR. On this date of evaluation, the patient has sufficient understanding of procedure(s) to consent to the procedure(s) being discussed and has adequate social support(s). Normal [facility] Progress Note [facility] C[facility] [address] [facility] [address] Dept: [phone] Dept Visit type: New : 1940 Reason for Visit: Cardiac Valve Problem Assessment and Plan 1. LV dysfunction 2. Stenosis of prosthetic aortic valve, initial encounter - ECG 12 lead - CLINIC PERFORMED This is a very pleasant 83 y.o. 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 she is clearly in need of aortic valve replacement, likely [id number] TAVR. Will need a diagnostic cath first, [...] Effort: Pulmonary (more content not included)... Normal [facility] Progress Noteon 11-17-2023 Progress Note Brianne [...] thinner - Eliquis Transthoracic Echocardiogram 09/22/2023 Normal [facility] Absolute lymphocyte countOrd ered By: Scott Hull on 07-13-2023 Lymphocytes Auto (Unsp spec) [#/Vol] 1.36 10*3/uL 0.83-4.51 [facility] Automated lymphocyte count a s percentage of total leukocytesOrdered By: Scott Hull on 07-13-2023 Lymphocytes/100 WBC Auto (Unsp spec) 23.9 % 19-41 [facility] Basophil percentageOrdered B y: Scott Hull on 07-13-2023 Basophils/100 WBC (Bld) 1.4 % 0-1 [facility] Bilirubin [Mass/Vol] 1.30 mg/dL 0.20-1.00 [facility] Comment on above: For patients on eltr ombopag therapy, use of [employer] TBIL is not recommended. Chloride [Moles/Vol] 107 mmol/L 98-107 [facility] Cholesterol [Mass/Vol] 170 mg/dL <200 [facility] Comment on above: <200 mg/dL Desirable 200-240 mg/dL Borderline >240 mg/dL High Risk Eosinophils/100 WBC (Bld) 1.6 % 0-5 [facility] Glucose [Mass/Vol] 108 mg/dL 74-106 [facility] Comment on above: Fasting Glucose resu lt from 100 to 125 mg/dL suggests IMPAIRED HOMEOSTASIS per A.D.A. criteria. Hemoglobin (Bld) [Mass/Vol] 15.2 g/dL 12.0-15.0 [facility] Monocytes/100 WBC (Bld) 12.6 % 0-10 [facility] Neutrophils (Bld) [#/Vol] 3.4 10*3/uL 2.0-7.7 [facility] Neutrophils/100 WBC (Bld) 59.8 % 47-70 [facility] Potassium [Moles/Vol] 4.2 mmol/L 3.5-5.1 [facility] Protein [Mass/Vol] 7.0 g/dL 6.4-8.2 [facility] Sodium [Moles/Vol] 138 mmol/L 136-145 [facility] Triglyceride [Mass/Vol] 186 mg/dL <199 [facility] Comment on above: The drugs N-Acetylcy steine and Metamizole may falsely depress this assay.Serum Triglycerides Reference Interval Normal <150 mg/dL Borderline high 150 - 199 mg/dL High 200 - 499 mg/dL Very High > or = 500 mg/dL WBC (Bld) [#/Vol] 5.7 10*3/uL 4.4-11.0 [facility] Determination of erythrocyte mean corpuscular volume (MCV)Ordered By: Scott Hull on 07-13-2023 MCV (RBC) [Entitic vol] 97.0 fL 81-99 [facility] Erythrocyte distribution wid th ratioOrdered By: [facility] on 07-13-2023 Erythrocyte distribution width (RBC) [Ratio] 13.1 % 11.6-14.6 [facility] Erythrocyte distribution wid th standard deviationOrdered By: [facility] on 07-13-2023 Erythrocyte distribution width (RBC) [Entitic vol] 47.2 fL 35.1-43.9 [facility] Hematocrit Auto (Bld) [Volum e fraction]Ordered By: [facility] 07-13-2023 Hematocrit (Bld) [Volume fraction] 46.0 % 37-47 [facility] Immature granulocytes/100 WB C Auto (Bld)Ordered By: [facility] 07-13-2023 Immature granulocytes/100 WBC (Bld) 0.700 % 0.0-0.9 [facility] Comment on above: IG% - Immature Granu locytes (promyelocytes, myelocytes and metamyelocytes) > 1% indicates that a LEFT SHIFT is Present. Laboratory - Chemistry and C hemistry - challengeOrdered By: [facility] 07-13-2023 Albumin/Globulin [Mass ratio] 0.9 {ratio} 0.9-2.4 [facility] ALP [Catalytic activity/Vol] 64 U/L 45-117 [facility] ALT [Catalytic activity/Vol] 19 U/L 13-56 [facility] Cholesterol in HDL [Mass/Vol] 37 mg/dL >40 [facility] Comment on above: The drugs N-Acetylcy steine and Metamizole may falsely depress this assay. Reference Range HDL <40 mg/dL Low HDL Cholesterol HDL >or= 60 mg/dL High HDL Cholesterol Cholesterol in LDL [Mass/Vol] 96 mg/dL 0-130 [facility] CO2 [Moles/Vol] 26.0 mmol/L 21.0-32.0 [facility] Globulin (S) [Mass/Vol] 3.6 g/dL 2.2-4.2 [facility] Urea nitrogen/Creatinine [Mass ratio] 15.4 mg/mg 10-20 [facility] Laboratory - Hematology and Cell countsOrdered By: [facility] 07-13-2023 MCH (RBC) [Entitic mass] 32.1 pg 27.0-32.0 [facility] MCHC (RBC) [Mass/Vol] 33.0 g/dL 32-36 [facility] Nucleated RBC/100 WBC (Bld) [Ratio] 0 % 0-5 [facility] Platelet mean volume (Bld) [Entitic vol] 12.7 fL 6.2-12.0 [facility] Platelets (Bld) [#/Vol] 190 10*3/uL 150-450 [facility] No Panel InformationOrdered By: Scott Hull on 07-13-2023 Estimated GFR (MDRD) Amer 50 mL/min >60 [facility] Comment on above: GFR Calc Estimated GFR (MDRD) Non-Af Amer 42 mL/min >60 [facility] Comment on above: Non- GFR Calc Vitamin D 25-Hydroxy 21.5 ng/mL [facility] Comment on above: Vitamin D 25(OH) Sta tus Range Deficiency <20 ng/mL (50nmol/L) Insufficiency 20 - 30 ng/mL (50 - 75 nmol/L) Sufficiency 30 - 100 ng/mL (75 - 250 nmol/L) Toxicity >100 ng/mL (>250 nmol/L) VLDL Cholesterol 37 mg/dL 5-40 [facility] RBC Auto (Bld) [#/Vol]Ordere d By: Scott Hull on 07-13-2023 RBC (Bld) [#/Vol] 4.74 10*6/uL 4.2-5.4 [facility] [facility] [place] Serum or plasma calcium leah urement (mass/volume)Ordered By: Scott Hull on 07-13-2023 Calcium [Mass/Vol] 8.8 mg/dL 8.5-10.1 [facility] Serum or plasma creatinine m easurement (mass/volume)Ordered By: Scott Hull on 07-13-2023 Creatinine [Mass/Vol] 1.30 mg/dL 0.55-1.02 [facility] Comment on above: The validity of the calculated GFR & GFRAA in patients over 70 years has not been determined. Clinical correlation is essential. Serum or plasma thyroid stim ulating hormone (TSH) measurement (units/volume)Ordered By: Scott Hull on 07-13-2023 TSH Qn 2.73 uIU/mL 0.358-3.74 [facility] Serum or plasma urea nitroge n measurement (mass/volume)Ordered By: Scott Hull on 07-13-2023 Urea nitrogen [Mass/Vol] 20 mg/dL 7-18 [facility] Serum or plasma uric acid me asurement (mass/volume)Ordered By: Scott Kurtis on 07-13-2023 Urate [Mass/Vol] 4.5 mg/dL 2.6-6.0 [facility] Comment on above: The drugs N-Acetylcy steine and Metamizole may falsely depress this assay. Thin prep Papanicolaou smear with manual screeningOrdered By: Scott Hull on 07-13-2023 Thin prep Papanicolaou smear with manual screening 3.4 g/dL 3.2-5.0 [facility] Thin prep Papanicolaou smear with manual screening 26 U/L 15-37 [facility] Thin prep Papanicolaou smear with manual screening 5 5-15 [facility] Absolute lymphocyte countOrd ered By: Scott Meyerok on 01-05-2023 Lymphocytes Auto (Unsp spec) [#/Vol] 2.04 10*3/uL 0.83-4.51 [facility] Basophil percentageOrdered B y: Scott Meyerok on 01-05-2023 Basophils/100 WBC (Bld) 1.1 % 0-1 [facility] Bilirubin [Mass/Vol] 0.90 mg/dL 0.20-1.00 [facility] Comment on above: For patients on eltr ombopag therapy, use of [employer] TBIL is not recommended. Chloride [Moles/Vol] 108 mmol/L 98-107 [facility] Eosinophils/100 WBC (Bld) 2.1 % 0-5 [facility] Glucose [Mass/Vol] 108 mg/dL 74-106 [facility] Comment on above: Fasting Glucose resu lt from 100 to 125 mg/dL suggests IMPAIRED HOMEOSTASIS per A.D.A. criteria. Neutrophils (Bld) [#/Vol] 3.9 10*3/uL 2.0-7.7 [facility] Neutrophils/100 WBC (Bld) 54.6 % 47-70 [facility] Potassium [Moles/Vol] 4.1 mmol/L 3.5-5.1 [facility] Protein [Mass/Vol] 7.2 g/dL 6.4-8.2 [facility] Sodium [Moles/Vol] 140 mmol/L 136-145 [facility] WBC (Bld) [#/Vol] 7.1 10*3/uL 4.4-11.0 [facility] Blood erythrocytes count (nu mber/volume)Ordered By: Scott Hull on 01-05-2023 RBC (Bld) [#/Vol] 4.90 10*6/uL 4.2-5.4 [facility] [place] Blood hemoglobin measurement (mass/volume)Ordered By: Scott Hull on 01-05-2023 Hemoglobin (Bld) [Mass/Vol] 15.7 g/dL 12.0-15.0 [facility] Blood lymphocytes/100 leukoc ytesOrdered By: Scott Hull on 01-05-2023 Lymphocytes/100 WBC (Bld) 28.6 % 19-41 [facility] Blood monocytes/100 leukocyt esOrdered By: Scott Hull on 01-05-2023 Monocytes/100 WBC (Bld) 13.0 % 0-10 [facility] Blood platelet mean volumeOr dered By: Scott Hull on 01-05-2023 Platelet mean volume (Bld) [Entitic vol] 12.0 fL 6.2-12.0 [facility] Determination of erythrocyte mean corpuscular volume (MCV)Ordered By: Scott Hull on 01-05-2023 MCV (RBC) [Entitic vol] 98.2 fL 81-99 [facility] Hematocrit Auto (Bld) [Volum e fraction]Ordered By: Scott Hull on 01-05-2023 Hematocrit (Bld) [Volume fraction] 48.1 % 37-47 [facility] Laboratory - Chemistry and C hemistry - challengeOrdered By: Scott Hull on 01-05-2023 ALP [Catalytic activity/Vol] 63 U/L 45-117 [facility] ALT [Catalytic activity/Vol] 22 U/L 13-56 [facility] CO2 [Moles/Vol] 23.0 mmol/L 21.0-32.0 [facility] Globulin (S) [Mass/Vol] 3.9 g/dL 2.2-4.2 [facility] Urea nitrogen/Creatinine [Mass ratio] 15.3 mg/mg 10-20 [facility] - Hematology and Cell countsOrdered By: Scott Hull on 01-05-2023 Erythrocyte distribution width (RBC) [Entitic vol] 49.0 fL 35.1-43.9 [facility] Erythrocyte distribution width (RBC) [Ratio] 13.5 % 11.6-14.6 [facility] Immature granulocytes/100 WBC (Bld) 0.600 % 0.0-0.9 [facility] Comment on above: IG% - Immature Granu locytes (promyelocytes, myelocytes and metamyelocytes) > 1% indicates that a LEFT SHIFT is Present. MCH (RBC) [Entitic mass] 32.0 pg 27.0-32.0 [facility] Nucleated RBC/100 WBC (Bld) [Ratio] 0 % 0-5 [facility] MCHC Auto (RBC) [Mass/Vol]Or dered By: Scott Hull on 01-05-2023 MCHC (RBC) [Mass/Vol] 32.6 g/dL 32-36 [facility] No Panel InformationOrdered By: Scott Hull on 01-05-2023 Estimated GFR (MDRD) Amer 56 mL/min >60 [facility] Comment on above: GFR Calc Estimated GFR (MDRD) Non-Af Amer 47 mL/min >60 [facility] Comment on above: Non- GFR Calc Thyroid Stimulating Hormone (TSH) 2.88 uIU/mL 0.358-3.74 [facility] Vitamin D 25-Hydroxy 16.6 ng/mL [facility] Comment on above: Vitamin D 25(OH) Sta tus Range Deficiency <20 ng/mL (50nmol/L) Insufficiency 20 - 30 ng/mL (50 - 75 nmol/L) Sufficiency 30 - 100 ng/mL (75 - 250 nmol/L) Toxicity >100 ng/mL (>250 nmol/L) Platelets bldOrdered By: Scott Hull on 01-05-2023 Platelets (Bld) [#/Vol] 227 10*3/uL 150-450 [facility] Serum or plasma albumin leah urement (mass/volume)Ordered By: Scott Hull on 01-05-2023 Albumin [Mass/Vol] 3.3 g/dL 3.2-5.0 [facility] Serum or plasma albumin/glob ulin mass ratioOrdered By: Scott Hull on 01-05-2023 Albumin/Globulin [Mass ratio] 0.8 {ratio} 0.9-2.4 [facility] Serum or plasma calcium leah urement (mass/volume)Ordered By: Scott Hull on 01-05-2023 Calcium [Mass/Vol] 8.7 mg/dL 8.5-10.1 [facility] Serum or plasma creatinine m easurement (mass/volume)Ordered By: Scott Hull on 01-05-2023 Creatinine [Mass/Vol] 1.18 mg/dL 0.55-1.02 [facility] Comment on above: The validity of the calculated GFR & GFRAA in patients over 70 years has not been determined. Clinical correlation is essential. Serum or plasma urea nitroge n measurement (mass/volume)Ordered By: Scott Hull on 01-05-2023 Urea nitrogen [Mass/Vol] 18 mg/dL 7-18 [facility] Serum or plasma uric acid me asurement (mass/volume)Ordered By: Scott Hull on 01-05-2023 Urate [Mass/Vol] 4.3 mg/dL 2.6-6.0 [facility] Comment on above: The drugs N-Acetylcy steine and Metamizole may falsely depress this assay. Thin prep Papanicolaou smear with manual screeningOrdered By: Scott Hull on 01-05-2023 Thin prep Papanicolaou smear with manual screening 18 U/L 15-37 [facility] Thin prep Papanicolaou smear with manual screening 9 5-15 [facility] Absolute lymphocyte countOrd ered By: Dr. Hull on 06-30-2022 Lymphocytes Auto (Unsp spec) [#/Vol] 1.80 10*3/uL 0.83-4.51 [facility] Basophil percentageOrdered B y: Dr. Hull on 06-30-2022 Basophils/100 WBC (Bld) 1.3 % 0-1 [facility] Bilirubin [Mass/Vol] 0.80 mg/dL 0.20-1.00 [facility] Comment on above: For patients on eltr ombopag therapy, use of [employer] TBIL is not recommended. Chloride [Moles/Vol] 104 mmol/L 98-107 [facility] Eosinophils/100 WBC (Bld) 1.6 % 0-5 [facility] Glucose [Mass/Vol] 106 mg/dL 74-106 [facility] Comment on above: Fasting Glucose resu lt from 100 to 125 mg/dL suggests IMPAIRED HOMEOSTASIS per A.D.A. criteria. Neutrophils (Bld) [#/Vol] 5.8 10*3/uL 2.0-7.7 [facility] Neutrophils/100 WBC (Bld) 66.1 % 47-70 [facility] Potassium [Moles/Vol] 4.5 mmol/L 3.5-5.1 [facility] Protein [Mass/Vol] 6.9 g/dL 6.4-8.2 [facility] Sodium [Moles/Vol] 136 mmol/L 136-145 [facility] WBC (Bld) [#/Vol] 8.8 10*3/uL 4.4-11.0 [facility] Blood erythrocytes count (nu mber/volume)Ordered By: Dr. Hull on 06-30-2022 RBC (Bld) [#/Vol] 4.84 10*6/uL 4.2-5.4 [facility] [place] Blood hemoglobin measurement (mass/volume)Ordered By: Dr. Hull on 06-30-2022 Hemoglobin (Bld) [Mass/Vol] 15.7 g/dL 12.0-15.0 [facility] Blood lymphocytes/100 leukoc ytesOrdered By: Dr. Hull on 06-30-2022 Lymphocytes/100 WBC (Bld) 20.5 % 19-41 [facility] Blood monocytes/100 leukocyt esOrdered By: Dr. Hull on 06-30-2022 Monocytes/100 WBC (Bld) 9.6 % 0-10 [facility] Blood platelet mean volumeOr dered By: Dr. Hull on 06-30-2022 Platelet mean volume (Bld) [Entitic vol] 12.5 fL 6.2-12.0 [facility] Determination of erythrocyte mean corpuscular volume (MCV)Ordered By: Dr. Hull on 06-30-2022 MCV (RBC) [Entitic vol] 97.5 fL 81-99 [facility] Hematocrit Auto (Bld) [Volum e fraction]Ordered By: Dr. Hull on 06-30-2022 Hematocrit (Bld) [Volume fraction] 47.2 % 37-47 [facility] - Chemistry and C hemistry - challengeOrdered By: Dr. Hull on 06-30-2022 ALP [Catalytic activity/Vol] 74 U/L 45-117 [facility] ALT [Catalytic activity/Vol] 21 U/L 13-56 [facility] CO2 [Moles/Vol] 23.0 mmol/L 21.0-32.0 [facility] Globulin (S) [Mass/Vol] 3.4 g/dL 2.2-4.2 [facility] Urea nitrogen/Creatinine [Mass ratio] 18.2 mg/mg 10-20 [facility] - Hematology and Cell countsOrdered By: Dr. Hull on 06-30-2022 Erythrocyte distribution width (RBC) [Entitic vol] 47.4 fL 35.1-43.9 [facility] Erythrocyte distribution width (RBC) [Ratio] 13.2 % 11.6-14.6 [facility] Immature granulocytes/100 WBC (Bld) 0.900 % 0.0-0.9 [facility] Comment on above: IG% - Immature Granu locytes (promyelocytes, myelocytes and metamyelocytes) > 1% indicates that a LEFT SHIFT is Present. MCH (RBC) [Entitic mass] 32.4 pg 27.0-32.0 [facility] Nucleated RBC/100 WBC (Bld) [Ratio] 0 % 0-5 [facility] MCHC Auto (RBC) [Mass/Vol]Or dered By: Dr. Hull on 06-30-2022 MCHC (RBC) [Mass/Vol] 33.3 g/dL 32-36 [facility] No Panel InformationOrdered By: Dr. Hull on 06-30-2022 Estimated GFR (MDRD) Amer 48 mL/min >60 [facility] Comment on above: GFR Calc Estimated GFR (MDRD) Non-Af Amer 39 mL/min >60 [facility] Comment on above: Non- GFR Calc Thyroid Stimulating Hormone (TSH) 3.20 uIU/mL 0.358-3.74 [facility] Vitamin D 25-Hydroxy 33.6 ng/mL [facility] Comment on above: Vitamin D 25(OH) Sta tus Range Deficiency <20 ng/mL (50nmol/L) Insufficiency 20 - 30 ng/mL (50 - 75 nmol/L) Sufficiency 30 - 100 ng/mL (75 - 250 nmol/L) Toxicity >100 ng/mL (>250 nmol/L) Platelets bldOrdered By: Dr. Hull on 06-30-2022 Platelets (Bld) [#/Vol] 252 10*3/uL 150-450 [facility] Serum or plasma albumin leah urement (mass/volume)Ordered By: Dr. Hull on 06-30-2022 Albumin [Mass/Vol] 3.5 g/dL 3.2-5.0 [facility] Serum or plasma albumin/glob ulin mass ratioOrdered By: Dr. Hull on 06-30-2022 Albumin/Globulin [Mass ratio] 1.0 {ratio} 0.9-2.4 [facility] Serum or plasma calcium leah urement (mass/volume)Ordered By: Dr. Hull on 06-30-2022 Calcium [Mass/Vol] 9.0 mg/dL 8.5-10.1 [facility] Serum or plasma creatinine m easurement (mass/volume)Ordered By: Dr. Hull on 06-30-2022 Creatinine [Mass/Vol] 1.37 mg/dL 0.55-1.02 [facility] Comment on above: The validity of the calculated GFR & GFRAA in patients over 70 years has not been determined. Clinical correlation is essential. Serum or plasma urea nitroge n measurement (mass/volume)Ordered By: Dr. Hull on 06-30-2022 Urea nitrogen [Mass/Vol] 25 mg/dL 7-18 [facility] Serum or plasma uric acid me asurement (mass/volume)Ordered By: Dr. Hull on 06-30-2022 Urate [Mass/Vol] 3.9 mg/dL 2.6-6.0 [facility] Comment on above: The drugs N-Acetylcy steine and Metamizole may falsely depress this assay. Thin prep Papanicolaou smear with manual screeningOrdered By: Dr. Hull on 06-30-2022 Thin prep Papanicolaou smear with manual screening 25 U/L 15-37 [facility] Thin prep Papanicolaou smear with manual screening 9 5-15 [facility] Absolute lymphocyte counton 12-30-2021 Lymphocytes Auto (Unsp spec) [#/Vol] 1.81 10*3/uL 0.83-4.51 [facility] Work Phone: Basophil percentageon 2021 Basophils/100 WBC (Bld) 1.1 % 0-1 [facility] Work Phone: Bilirubin [Mass/Vol] 1.10 mg/dL 0.20-1.00 [facility] Work Phone: Comment on above: For patients on eltr ombopag therapy, use of [employer] TBIL is not recommended. Chloride [Moles/Vol] 108 mmol/L 98-107 [facility] Work Phone: Eosinophils/100 WBC (Bld) 1.4 % 0-5 [facility] Work Phone: Glucose [Mass/Vol] 104 mg/dL 74-106 [facility] Work Phone: Comment on above: Fasting Glucose resu lt from 100 to 125 mg/dL suggests IMPAIRED HOMEOSTASIS per A.D.A. criteria. Neutrophils (Bld) [#/Vol] 3.7 10*3/uL 2.0-7.7 [facility] Work Phone: Neutrophils/100 WBC (Bld) 55.7 % 47-70 [facility] Work Phone: Potassium [Moles/Vol] 4.1 mmol/L 3.5-5.1 [facility] Work Phone: Protein [Mass/Vol] 7.3 g/dL 6.4-8.2 [facility] Work Phone: Sodium [Moles/Vol] 138 mmol/L 136-145 [facility] Work Phone: WBC (Bld) [#/Vol] 6.6 10*3/uL 4.4-11.0 [facility] Work Phone: Blood erythrocytes count (nu mber/volume)on 12-30-2021 RBC (Bld) [#/Vol] 4.82 10*6/uL 4.2-5.4 [facility] [place] Work Phone: Blood hemoglobin measurement (mass/volume)on 12-30-2021 Hemoglobin (Bld) [Mass/Vol] 15.4 g/dL 12.0-15.0 [facility] Work Phone: Blood lymphocytes/100 leukoc yteson 12-30-2021 Lymphocytes/100 WBC (Bld) 27.5 % 19-41 [facility] Work Phone: Blood monocytes/100 leukocyt eson 12-30-2021 Monocytes/100 WBC (Bld) 13.7 % 0-10 [facility] Work Phone: Blood platelet mean volumeon 12-30-2021 Platelet mean volume (Bld) [Entitic vol] 12.6 fL 6.2-12.0 [facility] Work Phone: Determination of erythrocyte mean corpuscular volume (MCV)on 12-30-2021 MCV (RBC) [Entitic vol] 96.3 fL 81-99 [facility] Work Phone: Hematocrit Auto (Bld) [Volum e fraction]on 12-30-2021 Hematocrit (Bld) [Volume fraction] 46.4 % 37-47 [facility] Work Phone: Laboratory - Chemistry and C hemistry - challengeon 12-30-2021 ALP [Catalytic activity/Vol] 78 U/L 45-117 [facility] Work Phone: ALT [Catalytic activity/Vol] 23 U/L 13-56 [facility] Work Phone: CO2 [Moles/Vol] 23.0 mmol/L 21.0-32.0 [facility] Work Phone: Globulin (S) [Mass/Vol] 3.9 g/dL 2.2-4.2 [facility] Work Phone: Urea nitrogen/Creatinine [Mass ratio] 19.0 mg/mg 10-20 [facility] Work Phone: Laboratory - Hematology and Cell countson 12-30-2021 Erythrocyte distribution width (RBC) [Entitic vol] 45.9 fL 35.1-43.9 [facility] Work Phone: Erythrocyte distribution width (RBC) [Ratio] 13.0 % 11.6-14.6 [facility] Work Phone: Immature granulocytes/100 WBC (Bld) 0.600 % 0.0-0.9 [facility] Work Phone: Comment on above: IG% - Immature Granu locytes (promyelocytes, myelocytes and metamyelocytes) > 1% indicates that a LEFT SHIFT is Present. MCH (RBC) [Entitic mass] 32.0 pg 27.0-32.0 [facility] Work Phone: Nucleated RBC/100 WBC (Bld) [Ratio] 0 % 0-5 [facility] Work Phone: MCHC Auto (RBC) [Mass/Vol]on 12-30-2021 MCHC (RBC) [Mass/Vol] 33.2 g/dL 32-36 [facility] Work Phone: No Panel Informationon 12-30 Estimated GFR (MDRD) Amer 58 mL/min >60 [facility] Work Phone: Comment on above: GFR Calc Estimated GFR (MDRD) Non-Af Amer 48 mL/min >60 [facility] Work Phone: Comment on above: Non- GFR Calc Thyroid Stimulating Hormone (TSH) 2.92 uIU/mL 0.358-3.74 [facility] Work Phone: Vitamin D 25-Hydroxy 18.4 ng/mL [facility] Work Phone: Comment on above: Vitamin D 25(OH) Sta tus Range Deficiency <20 ng/mL (50nmol/L) Insufficiency 20 - 30 ng/mL (50 - 75 nmol/L) Sufficiency 30 - 100 ng/mL (75 - 250 nmol/L) Toxicity >100 ng/mL (>250 nmol/L) Platelets bldon 12-30-2021 Platelets (Bld) [#/Vol] 222 10*3/uL 150-450 [facility] Work Phone: Serum or plasma albumin leah urement (mass/volume)on 12-30-2021 Albumin [Mass/Vol] 3.4 g/dL 3.2-5.0 [facility] Work Phone: Serum or plasma albumin/glob ulin mass ratioon 12-30-2021 Albumin/Globulin [Mass ratio] 0.9 {ratio} 0.9-2.4 [facility] Work Phone: Serum or plasma calcium leah urement (mass/volume)on 12-30-2021 Calcium [Mass/Vol] 9.1 mg/dL 8.5-10.1 [facility] Work Phone: Serum or plasma creatinine m easurement (mass/volume)on 12-30-2021 Creatinine [Mass/Vol] 1.16 mg/dL 0.55-1.02 [facility] Work Phone: Comment on above: The validity of the calculated GFR & GFRAA in patients over 70 years has not been determined. Clinical correlation is essential. Serum or plasma urea nitroge n measurement (mass/volume)on 12-30-2021 Urea nitrogen [Mass/Vol] 22 mg/dL 7-18 [facility] Work Phone: Serum or plasma uric acid me asurement (mass/volume)on 12-30-2021 Urate [Mass/Vol] 4.1 mg/dL 2.6-6.0 [facility] Work Phone: Comment on above: The drugs N-Acetylcy steine and Metamizole may falsely depress this assay. Thin prep Papanicolaou smear with manual screeningon 12-30-2021 Thin prep Papanicolaou smear with manual screening 22 U/L 15-37 [facility] Work Phone: Thin prep Papanicolaou smear with manual screening 7 5-15 [facility] Work Phone: Absolute lymphocyte counton 06-30-2021 Lymphocytes Auto (Unsp spec) [#/Vol] 1.74 10*3/uL 0.83-4.51 [facility] Work Phone: Basophil percentageon 2021 Basophils/100 WBC (Bld) 1.4 % 0-1 [facility] Work Phone: Bilirubin [Mass/Vol] 0.90 mg/dL 0.20-1.00 [facility] Work Phone: Comment on above: For patients on eltr ombopag therapy, use of [employer] TBIL is not recommended. Chloride [Moles/Vol] 106 mmol/L 98-107 [facility] Work Phone: Eosinophils/100 WBC (Bld) 1.1 % 0-5 [facility] Work Phone: Glucose [Mass/Vol] 112 mg/dL 74-106 [facility] Work Phone: Comment on above: Fasting Glucose resu lt from 100 to 125 mg/dL suggests IMPAIRED HOMEOSTASIS per A.D.A. criteria. Neutrophils (Bld) [#/Vol] 3.8 10*3/uL 2.0-7.7 [facility] Work Phone: Neutrophils/100 WBC (Bld) 59.2 % 47-70 [facility] Work Phone: Potassium [Moles/Vol] 4.4 mmol/L 3.5-5.1 [facility] Work Phone: Protein [Mass/Vol] 7.3 g/dL 6.4-8.2 [facility] Work Phone: Sodium [Moles/Vol] 137 mmol/L 136-145 [facility] Work Phone: WBC (Bld) [#/Vol] 6.4 10*3/uL 4.4-11.0 [facility] Work Phone: Blood erythrocytes count (nu mber/volume)on 06-30-2021 RBC (Bld) [#/Vol] 4.95 10*6/uL 4.2-5.4 [facility] [place] Work Phone: Blood hemoglobin measurement (mass/volume)on 06-30-2021 Hemoglobin (Bld) [Mass/Vol] 15.7 g/dL 12.0-15.0 [facility] Work Phone: Blood lymphocytes/100 leukoc yteson 06-30-2021 Lymphocytes/100 WBC (Bld) 27.3 % 19-41 [facility] Work Phone: Blood monocytes/100 leukocyt eson 06-30-2021 Monocytes/100 WBC (Bld) 10.7 % 0-10 [facility] Work Phone: Blood platelet mean volumeon 06-30-2021 Platelet mean volume (Bld) [Entitic vol] 12.7 fL 6.2-12.0 [facility] Work Phone: Determination of erythrocyte mean corpuscular volume (MCV)on 06-30-2021 MCV (RBC) [Entitic vol] 96.6 fL 81-99 [facility] Work Phone: Hematocrit Auto (Bld) [Volum e fraction]on 06-30-2021 Hematocrit (Bld) [Volume fraction] 47.8 % 37-47 [facility] Work Phone: Laboratory - Chemistry and C hemistry - challengeon 06-30-2021 ALP [Catalytic activity/Vol] 71 U/L 45-117 [facility] Work Phone: ALT [Catalytic activity/Vol] 26 U/L 13-56 [facility] Work Phone: CO2 [Moles/Vol] 25.0 mmol/L 21.0-32.0 [facility] Work Phone: Globulin (S) [Mass/Vol] 3.7 g/dL 2.2-4.2 [facility] Work Phone: Urea nitrogen/Creatinine [Mass ratio] 14.7 mg/mg 10-20 [facility] Work Phone: Laboratory - Hematology and Cell countson 06-30-2021 Erythrocyte distribution width (RBC) [Entitic vol] 46.4 fL 35.1-43.9 [facility] Work Phone: Erythrocyte distribution width (RBC) [Ratio] 13.1 % 11.6-14.6 [facility] Work Phone: Immature granulocytes/100 WBC (Bld) 0.300 % 0.0-0.9 [facility] Work Phone: Comment on above: IG% - Immature Granu locytes (promyelocytes, myelocytes and metamyelocytes) > 1% indicates that a LEFT SHIFT is Present. MCH (RBC) [Entitic mass] 31.7 pg 27.0-32.0 [facility] Work Phone: Nucleated RBC/100 WBC (Bld) [Ratio] 0 % 0-5 [facility] Work Phone: MCHC Auto (RBC) [Mass/Vol]on 06-30-2021 MCHC (RBC) [Mass/Vol] 32.8 g/dL 32-36 [facility] Work Phone: No Panel Informationon 06-30 Estimated GFR (MDRD) Amer 51 mL/min >60 [facility] Work Phone: Comment on above: GFR Calc Estimated GFR (MDRD) Non-Af Amer 42 mL/min >60 [facility] Work Phone: Comment on above: Non- GFR Calc Thyroid Stimulating Hormone (TSH) 2.54 uIU/mL 0.358-3.74 [facility] Work Phone: Vitamin D 25-Hydroxy 24.2 ng/mL [facility] Work Phone: Comment on above: Vitamin D 25(OH) Sta tus Range Deficiency <20 ng/mL (50nmol/L) Insufficiency 20 - 30 ng/mL (50 - 75 nmol/L) Sufficiency 30 - 100 ng/mL (75 - 250 nmol/L) Toxicity >100 ng/mL (>250 nmol/L) Platelets bldon 06-30-2021 Platelets (Bld) [#/Vol] 242 10*3/uL 150-450 [facility] Work Phone: Serum or plasma albumin leah urement (mass/volume)on 06-30-2021 Albumin [Mass/Vol] 3.6 g/dL 3.2-5.0 [facility] Work Phone: Serum or plasma albumin/glob ulin mass ratioon 06-30-2021 Albumin/Globulin [Mass ratio] 1.0 {ratio} 0.9-2.4 [facility] Work Phone: Serum or plasma calcium leah urement (mass/volume)on 06-30-2021 Calcium [Mass/Vol] 9.2 mg/dL 8.5-10.1 [facility] Work Phone: Serum or plasma creatinine m easurement (mass/volume)on 06-30-2021 Creatinine [Mass/Vol] 1.29 mg/dL 0.55-1.02 [facility] Work Phone: Comment on above: The validity of the calculated GFR & GFRAA in patients over 70 years has not been determined. Clinical correlation is essential. Serum or plasma urea nitroge n measurement (mass/volume)on 06-30-2021 Urea nitrogen [Mass/Vol] 19 mg/dL 7-18 [facility] Work Phone: Serum or plasma uric acid me asurement (mass/volume)on 06-30-2021 Urate [Mass/Vol] 4.3 mg/dL 2.6-6.0 [facility] Work Phone: Comment on above: The drugs N-Acetylcy steine and Metamizole may falsely depress this assay. Thin prep Papanicolaou smear with manual screeningon 06-30-2021 Thin prep Papanicolaou smear with manual screening 23 U/L 15-37 [facility] Work Phone: Thin prep Papanicolaou smear with manual screening 6 5-15 [facility] Work Phone: Office Visiton 01-04-2017 Dietary management education, guidance, and counseling (procedure) yes Invalid Interpretation Code [facility] Work Phone: Documentation of current medications (procedure) Done Invalid Interpretation Code [facility] Work Phone: Tobacco use [facility] Never smoker Invalid Interpretation Code [facility] Work Phone: Office Visit: [facility] 12-30-19 Documentation of current medications (procedure) Done Invalid Interpretation Code [facility] Work Phone: Fall risk assessment No Invalid Interpretation Code [facility] Work Phone: Protein mass conc Done Invalid Interpretation Code [facility] Work Phone: Office Visiton 09-28-2016 Dietary management education, guidance, and counseling (procedure) yes Invalid Interpretation Code [facility] Work Phone: Documentation of current medications (procedure) Done Invalid Interpretation Code [facility] Work Phone: Tobacco smoking status NHIS Never smoker Invalid Interpretation Code [facility] Work Phone: Tobacco use [facility] Never smoker Invalid Interpretation Code [facility] Work Phone: Office Visiton 06-29-2016 Dietary management education, guidance, and counseling (procedure) yes Invalid Interpretation Code [facility] Work Phone: Documentation of current medications (procedure) Done Invalid Interpretation Code [facility] Work Phone: Tobacco use [facility] Never smoker Invalid Interpretation Code [facility] Work Phone: Clinical Lists Update: 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 11-18-2015 Left ventricular Ejection fraction 65 % Invalid Interpretation Code [facility] Work Phone: Lab Report: Lipid Profileon 11-12-2015 Cholesterol 194 mg/dL Invalid Interpretation Code 200 [facility] Work Phone: HDL Cholesterol 45 mg/dL Invalid Interpretation Code [facility] Work Phone: LDL Cholesterol 123 mg/dL Invalid Interpretation Code 0-130 [facility] Work Phone: Triglyceride 132 mg/dL Invalid Interpretation Code [facility] Work Phone: very low density lipoproteins 26 mg/dL Invalid Interpretation Code 5-40 [facility] Work Phone: Lab Report: Liver Profileon 11-12-2015 Alanine aminotransferase (ALT) 19 U/L Invalid Interpretation Code 12-78 [facility] Work Phone: Albumin 3.6 g/dL Invalid Interpretation Code 3.4-5.0 [facility] Work Phone: Alkaline phosphatase (ALP) 72 U/L Invalid Interpretation Code 50-136 [facility] Work Phone: ALP enzyme act/vol (Bld) 72 U/L Invalid Interpretation Code 50-136 [facility] Work Phone: Aspartate aminotransferase (AST) 17 U/L Invalid Interpretation Code 15-37 [facility] Work Phone: Bilirubin (direct) 0.17 mg/dL Invalid Interpretation Code 0.00-0.30 [facility] Work Phone: Bilirubin (total) 0.90 mg/dL Invalid Interpretation Code 0.20-1.00 [facility] Work Phone: Globulin 3.7 g/dL High 2.3-3.5 [facility] Work Phone: Protein 7.3 g/dL Invalid Interpretation Code 6.4-8.2 [facility] Work Phone: Vital Signs Date Time Vital Sign Value Performing Clinician Angle euceda 01-04-2024 11:57-0400 Body height 157.5 cm Mónica David SUBMARINE DIVER - [employer] Work Phone: [facility] 01-04-2024 11:57-0400 Body mass index (BMI) [Ratio] 43.09 kg/m2 Mónica David SUBMARINE DIVER - [employer] Work Phone: [facility] 01-04-2024 11:57-0400 Body weight 106.87 kg Mónica David SUBMARINE DIVER - [employer] Work Phone: [facility] 01-04-2024 11:57-0400 Diastolic blood pressure 64 mm[Hg] Mónica David SUBMARINE DIVER - [employer] Work Phone: [facility] 01-04-2024 11:57-0400 Heart rate 68 /min Mónica David SUBMARINE DIVER - [employer] Work Phone: [facility] 01-04-2024 11:57-0400 SaO2% (BldA) [Mass fraction] 97 % Mónica David SUBMARINE DIVER - [employer] Work Phone: [facility] 01-04-2024 11:57-0400 Systolic blood pressure 112 mm[Hg] Mónica David SUBMARINE DIVER - [employer] Work Phone: [facility] 12-26-2023 11:34-0400 Body temperature 96.49 [degF] Harjeet Huffman MD Work Phone: [facility] 12-26-2023 11:34-0400 Diastolic blood pressure 82 mm[Hg] Harjeet Huffman MD Work Phone: [facility] 12-26-2023 11:34-0400 Heart rate 87 /min Harjeet Huffman MD Work Phone: [facility] 12-26-2023 11:34-0400 Respiratory rate 22 /min Harjeet Huffman MD Work Phone: [facility] 12-26-2023 11:34-0400 SaO2% (BldA) [Mass fraction] 98 % Harjeet Huffman MD Work Phone: [facility] 12-26-2023 11:34-0400 Systolic blood pressure 148 mm[Hg] Harjeet Huffman MD Work Phone: [facility] 12-26-2023 09:27-0400 Body height 157.5 cm Harjeet Huffman MD Work Phone: [facility] 12-26-2023 09:27-0400 Body mass index (BMI) [Ratio] 45.91 kg/m2 Harjeet Huffman MD Work Phone: [facility] 12-26-2023 09:27-0400 Body weight 113.85 kg Harjeet Huffman MD Work Phone: [facility] 12-12-2023 13:57-0400 Diastolic blood pressure 76 mm[Hg] [facility] 12-12-2023 13:57-0400 Heart rate 73 /min [facility] 12-12-2023 13:57-0400 Respiratory rate 18 /min [facility] 12-12-2023 13:57-0400 Systolic blood pressure 128 mm[Hg] [facility] 12-12-2023 12:30-0400 Body temperature 96.8 [degF] Arlenecb Velez SUBMARINE DIVER - [employer] Work Phone: [facility] 12-12-2023 12:30-0400 Diastolic blood pressure 64 mm[Hg] Arlene Rosie SUBMARINE DIVER - [employer] Work Phone: [facility] 12-12-2023 12:30-0400 Heart rate 50 /min Arlene Velez SUBMARINE DIVER - [employer] Work Phone: [facility] 12-12-2023 12:30-0400 Respiratory rate 18 /min Arlene Velez SUBMARINE DIVER - [employer] Work Phone: [facility] 12-12-2023 12:30-0400 Systolic blood pressure 113 mm[Hg] Arlene Velez SUBMARINE DIVER - [employer] Work Phone: [employer] 12-12-2023 07:34-0400 Body temperature 97 [degF] Ach Pop [facility] 11-21-2023 14:17-0400 Body height 157.5 cm Juan Reed DO Work Phone: [employer] 11-21-2023 14:17-0400 Body mass index (BMI) [Ratio] 43.15 kg/m2 Juan Reed DO Work Phone: [employer] 11-21-2023 14:17-0400 Body weight 107 kg Juan Reed DO Work Phone: [facility] 11-21-2023 14:17-0400 Diastolic blood pressure 82 mm[Hg] Juan Reed DO Work Phone: [employer] 11-21-2023 14:17-0400 Heart rate 58 /min Juan Reed DO Work Phone: [employer] 11-21-2023 14:17-0400 SaO2% (BldA) [Mass fraction] 98 % Juan Reed DO Work Phone: [employer] 11-21-2023 14:17-0400 Systolic blood pressure 136 mm[Hg] Juan Reed DO Work Phone: [employer] 11-21-2023 14:01-0400 Body height 157.5 cm Harjeet Huffman MD Work Phone: [employer] 11-21-2023 14:01-0400 Body mass index (BMI) [Ratio] 43.31 kg/m2 Harjeet Huffman MD Work Phone: [employer] 11-21-2023 14:01-0400 Body weight 107.41 kg Harjeet Huffman MD Work Phone: [employer] 11-21-2023 14:01-0400 Diastolic blood pressure 82 mm[Hg] Harjeet Huffman MD Work Phone: [employer] 11-21-2023 14:01-0400 Heart rate 58 /min Harjeet Huffman MD Work Phone: [facility] [employer] 11-21-2023 14:010400 SaO2% (BldA) [Mass fraction] 98 % Harjeet Huffman MD Work Phone: [facility] [employer] 11-21-2023 14:01-0400 Systolic blood pressure 136 mm[Hg] Harjeet Huffman MD Work Phone: [facility] [employer] 12-29-2016 10:24-0400 BMI (Body Mass Index) 38.01 [...] 14:01-0500 BMI (Body Mass Index) 37.83 kg/m2 [facility] Work [...] 05-26-2016 14:01-0500 Pulse (Heart Rate) 76 /min [facility] Work Phone: 05-26-2016 14:01-0500 Respiratory Rate 18 /min [facility] Work Phone: 05-26-2016 14:01-0500 Weight 98.43 kg [facility] Work Phone: 11-10-2015 14:49-0400 BSA (Body Surface Area) 2.03 m2 [facility] Work Phone: Encounters Encounter Date Encounter Type Care Provider Facility Start: 01-29-2025 ambulatory Efewongbe Oleghe OLS Fa cility:[facility] Start: 01-14-2025 ambulatory Efewongbe Oleghe OLS Fa cility:[facility] Start: 01-13-2025 End: 01-13-2025 ambulatory Sara Man NP Facility[facility] Start: 01-06-2025 ambulatory Efewongbe Oleghe OLS Fa cility:[facility] Start: 12-30-2024 ambulatory Efewongbe Oleghe OLS Fa cility:[facility] Start: 12-17-2024 Registered Referred Joe Sanchez MD [facility] Start: 12-17-2024 End: 12-17-2024 ambulatory Efewongbe Arturoghe OLS Facility:[facility] Start: 12-04-2024 ambulatory Efewongbe Oleghe OLS Fa cility:[facility] Start: 12-04-2024 [facility]istered [facility] Start: 11-26-2024 End: 11-27-2024 ambulatory Efgenebe Oleghe Facility:[facility] Start: 11-19-2024 ambulatory Joe PORTILLO Fa cility:[facility] Start: 11-19-2024 Registered [facility] Start: 10-23-2024 End: 10-23-[address] Scott Hull MD Work Phone: [facility] Start: 10-23-2024 End: 10-23-2024 Patient encounter procedure Sara MONTEMAYOR -[facility] Work Phone: Start: 10-22-2024 Registered [facility] Start: 10-22-2024 End: 10-22-2024 ambulatory Joe PORTILLO Facility:[facility] Start: 10-09-2024 ambulatory Joe PORTILLO Fa cility:[facility] Start: 10-09-2024 Registered [facility] Start: 10-07-2024 End: 10-07-[address] Scott Hull MD Work Phone: [facility] Start: 10-07-2024 End: 10-07-2024 Departed Referred [facility] Start: 10-07-2024 Registered [facility] Start: 10-07-2024 End: 10-07-2024 ambulatory Joe PORTILLO Facility:[facility] Start: 10-01-2024 End: 10-01-[address] Scott Hull MD Work Phone: [facility] Start: 10-01-2024 End: 10-01-[address] Joe Sanchez MD -[facility] Work Phone: Start: 09-24-2024 ambulatory Scott Hull Facility:[facility] Start: 09-24-2024 Registered Ref[facility] Start: 09-02-2024 End: 09-02-[address] Scott Hull MD Work Phone: [facility] Start: 09-02-2024 End: 09-02-2024 [facility] Work Phone: Start: 08-27-2024 ambulatory Scott [facility] Facility:[facility] Start: 08-27-2024 Registered Referred Joe Sanchez MD [facility] Start: 08-20-2024 End: 08-20-[address] Scott Hull MD Work Phone: [facility] Start: 08-20-2024 End: 08-20-2024 Patient encounter procedure [facility] Work Phone: Start: 08-14-2024 ambulatory Scott Hull Facility:[facility] Start: 08-14-2024 Registered Referred Joe Sanchez MD [facility] Start: 07-30-2024 End: 07-30-[address] Scott Hull MD Work Phone: [facility] Work Phone: Start: 07-30-2024 End: 07-30-2024 Departed Referred Joe Sanchez MD [facility] Start: 07-30-2024 End: 07-30-2024 ambulatory Joe PORTILLO Facility:[facility] Start: 07-23-2024 End: 07-23-[address] Scott Hull MD Work Phone: [facility] Start: 07-23-2024 End: 07-23-[address] Joe Sanchez MD [facility] Work Phone: Start: 07-15-2024 End: 07-15-[address] Scott Hull MD Work Phone: [facility] Work Phone: Start: 07-15-2024 End: 07-15-2024 Dep[facility]ed [facility] Start: 07-15-2024 Registered Ref[facility] Start: 07-15-2024 End: 07-15-2024 ambulatory Efmontez Sanchez OLS Facility:[facility] Start: 07-02-2024 End: 07-02-[address] Scott Hull MD Work Phone: [facility] Work Phone: Start: 07-02-2024 End: 07-02-2024 Departed [facility]erred [facility] Start: 07-02-2024 End: 07-02-2024 ambulatory Efmontez PORTILLO Facility:[facility] Start: 06-18-2024 End: 06-18-2024 Departed Referred [facility] Start: 06-18-2024 Registered Referred [facility] Start: 06-18-2024 End: 06-18-2024 ambulatory Scott Chi Kurtis Facility:[facility] Start: 06-04-2024 End: 06-04-[address] Scott Hull MD Work Phone: [facility] Work Phone: Start: 06-04-2024 End: 06-04-2024 Departed Referred [facility] Start: 06-04-2024 End: 06-04-2024 ambulatory Scott Chi [place] Facility:[facility] Start: 05-28-2024 End: 05-28-2024 ambulatory Efewongbe Oleghe Facility:[facility] Start: 05-28-2024 End: 05-28-[address] Joe Sanchez MD [facility] Work Phone: Start: 05-16-2024 End: 05-16-2024 ambulatory Scott Chi [place] Facility:[facility] Start: 05-16-2024 End: 05-16-2024 Patient encounter procedure Eriberto VILLALOBOS -[facility] Work Phone: Start: 05-07-2024 ambulatory Scott Chi [place] Facility:[facility] Start: 05-07-2024 Registered Ref[facility] Start: 04-22-2024 ambulatory Scott Chi [place] Facility:[facility] Start: 04-22-2024 Registered Ref[facility] Start: 04-18-2024 ambulatory Mónica VILLALOBOS Facility:[facility] Start: 04-09-2024 End: 04-09-2024 Departed Referred [facility] Start: 04-09-2024 End: 04-09-2024 ambulatory Joe PORTILLO Facility:[facility] Start: 04-02-2024 End: 04-02-2024 ambulatory Scott Chi [place] Facility:[facility] Start: 04-02-2024 End: 04-02-[address] Joe Sanchez MD -[facility] Work Phone: Start: 03-15-2024 End: 03-15-2024 ambulatory Sara Irizarry NP Facility:[facility] Start: 03-15-2024 End: 03-15-2024 Patient encounter procedure Sara Irizarry RANGER AIDE- -[facility] Work Phone: Start: 03-15-2024 ambulatory Joe Sanchez OLS Fa cility:[facility] Start: 03-15-2024 Registered [facility] Start: 03-08-2024 ambulatory Joe Sanchez OLS Fa cility:[facility] Start: 03-08-2024 Registered [facility] Start: 03-01-2024 End: 03-01-2024 Departed Referred [facility] Start: 03-01-2024 End: 03-01-2024 ambulatory Efewongbe Oleghe OLS Facility:[facility] Start: 02-27-2024 End: 02-27-[facility] Start: 02-27-2024 End: 02-27-2024 Patient encounter procedure Sara MONTEMAYOR -[facility] Work Phone: Start: 02-23-2024 End: 02-23-2024 ambulatory Efewongbe Oleghe OLS Facility:[facility] Start: 02-16-2024 ambulatory Efewongbe Oleghe OLS Fa cility:[facility] Start: 02-09-2024 ambulatory Efewongbe Oleghe OLS Fa cility:[facility] Start: 02-07-2024 End: 02-07-2024 ambulatory [facility] Facility:[facility] Start: 02-02-2024 ambulatory Efewongbe Oleawaise OLS Fa cility:[facility] Start: 01-04-2024 End: 02-22-2024 Telephone encounter Mónica David APRN - [employer] Work Phone: [facility] [facility] Comment on above: Orders Start: 01-04-2024 End: 01-04-2024 Office outpatient visit 25 minutes Mónica David APRN - [employer] Work Phone: [facility] [employer] [facility] Comment on above: Chronic atrial fibri llation (HCC) (Primary Dx); Severe aortic stenosis; Stage 3a chronic kidney disease (HCC); Left heart failure (HCC) Start: 01-04-2024 End: 01-04-2024 ambulatory MÓNICA DAVID [facility] Start: 12-25-2023 End: 12-26-2023 Evaluation and management of inpatient Harjeet Huffman MD Work Phone: [facility] Cardiac Thoracic Vascular Intensive Care Unit CTV ICU T1 Comment on above: Severe aortic stenos is (Primary Dx); Nonrheumatic aortic valve stenosis Start: 12-22-2023 End: 12-22-2023 ambulatory Arlene Velez SUBMARINE DIVER - [employer] Work Phone: [facility] Comment on above: Severe aortic stenos is (Primary Dx) Start: 12-12-2023 End: 12-12-2023 Office outpatient visit 25 minutes Mónica David SUBMARINE DIVER - [employer] Work Phone: [facility] [place] Comment on above: Chronic atrial fibri llation (HCC) (Primary Dx); Nonrheumatic aortic valve stenosis; Adverse effect of contrast media, initial encounter Start: 12-12-2023 End: 12-12-2023 Subsequent hospital visit by physician Arlene Velez SUBMARINE DIVER - [employer] Work Phone: [facility] CT Imaging Comment on above: Nonrheumatic aortic valve stenosis Start: 12-12-2023 End: 12-12-2023 ambulatory Harjeet Huffman MD Work Phone: [facility] Comment on above: Renal failure, unspe cified chronicity; Stenosis of prosthetic aortic valve, initial encounter Start: 11-21-2023 End: 11-21-2023 Office outpatient new 45 minutes Thaddeus Mckeon MD Work Phone: [facility] Comment on above: Nonrheumatic aortic valve stenosis (Primary Dx); Chronic atrial fibrillation (HCC); Short-term memory loss; Drug-induced bradycardia; Polypharmacy Start: 11-21-2023 End: 11-21-2023 Office outpatient new 60 minutes Juan Reed DO Work Phone: [facility] Comment on above: Stenosis of prosthet ic aortic valve, initial encounter (Primary Dx) LV dysfunction (Prim logan Dx); Stenosis of prosthetic aortic valve, initial encounter Start: 11-21-2023 End: 11-21-2023 ambulatory THADDEUS MCKEON [facility] Start: 07-13-2023 End: 07-13-2023 ambulatory [facility] Work Phone: Start: 07-13-2023 End: 07-13-2023 Patient encounter procedure [facility] Work Phone: Start: 01-05-2023 End: 01-05-2023 ambulatory [facility] Work Phone: Start: 01-05-2023 End: 01-05-2023 Patient encounter procedure [facility], Phy Office 3rd Flr Start: 06-30-2022 End: 06-30-2022 ambulatory [facility] Work Phone: Start: 06-30-2022 End: 06-30-2022 Patient encounter procedure [facility], y Office 3rd Flr Start: 12-30-2021 End: 12-30-2021 ambulatory [facility] Work Phone: Start: 12-30-2021 End: 12-30-2021 Patient encounter procedure [facility], y Office 3rd Flr Start: 06-30-2021 End: 06-30-2021 [facility] Start: 09-11-2017 Patient encounter status [facility] Procedures Date Procedure Procedure Detail Performing Clinician [...] w or wo fol wcon,Doppler Mónica David SUBMARINE DIVER - [employer] Work Phone: Start: 12-26-2023 Ecg routine ecg w/le ast 12 lds trcg only w/o i&r Mónica David SUBMARINE DIVER - [employer] Work Phone: Start: 12-26-2023 Basic metabolic pane l calcium total Mónica David SUBMARINE DIVER - [employer] Work Phone: Start: 12-25-2023 Echo transthorc r-t 2d w/wo m-mode rec f-up/lmtd Harjeet Huffman MD Work Phone: Start: 12-25-2023 Basic metabolic pane l calcium total Mónica Radford Sandeep SUBMARINE DIVER - [employer] PA[employer] Work Phone: Start: 12-25-2023 Ecg routine ecg w/le ast 12 lds trcg only w/o i&r Mónica Radford Sandeep SUBMARINE DIVER - [employer] Work Phone: Start: 12-25-2023 OXYGEN THERAPY Mónica Radford Sandeep SUBMARINE DIVER - [employer] Work Phone: Start: 12-25-2023 Cardiac catheterizat ion study Harjeet Huffman MD Work Phone: Start: 12-25-2023 Antibody screen [facility] Comment on above: Performed By: #### L [id number] #### Nursing Staffing Coordinator: AIED RUEDA ([id number]) [facility] ([facility]) [address] [place] [address] Start: 12-25-2023 End: 12-25-2023 Blood typing serologic rh (d) Tien Cornell MD Work Phone: Start: 12-25-2023 End: 12-25-2023 TRANSCATHETER AORTIC VALVE REPLACEMENT (TAVR) - OR Tien Cornell MD Work Phone: Start: 12-12-2023 Antibody screen HARJEET DOWNING Comment on above: Performed By: #### L [id number] ####Nursing Staffing Coordinator: AIDE RUEDA ([phone])[facility] ([facility])[address] [place] [address] Start: 12-12-2023 Blood typing serologic abo Harjeet [...] DTaP/Tdap/Td Vaccines (2 - Td or Tdap) [facility] Start: 12-25-2024 Creatinine measurement Creatinine Level [facility] Start: 12-25-2024 Echocardiography Echocardiogram [facility] Start: 12-25-2024 Potassium measurement Potassium Level [facility] Start: 03-20-2024 Medicare Advantage Annual Wellness Visit Medicare Advantage Annual Wellness Visit [facility] Start: 01-04-2024 End: 01-04-2024 Patient encounter procedure 01/04/2024 12:00 PM EDT Office Visit [facility] [address] [place] [id number] Mónica David, SUBMARINE DIVER - [employer] PA[employer] [address] [place] [address] [facility] [place] Start: 12-25-2023 End: 12-25-2023 Admission to same day surgery center 12/25/2023 9:15 AM EDT - 12/25/2023 11:00 AM EDT Surgery [facility] [address] [facility] [place] [address] Harjeet Huffman MD [address] [place] [address] TRANSCATHETER AORTIC VALVE REPLACEMENT, TRANSTHORACIC ECHOCARDIOGRAM [facility] Comment on above: TRANSCATHETER AORTIC VALVE REPLACEMENT, TRANSTHORACIC ECHOCARDIOGRAM Start: 12-25-2023 End: 12-25-2023 Anesthesia consultation 12/25/2023 9:15 AM EDT Anesthesia Event [facility] [address] [facility] [place] [address] Carolina Waldron, SUBMARINE DIVER - [employer] PAINTER [address] [facility] [address] [place] [address] [facility] Start: 12-25-2023 Subsequent hospital visit by physician 12/25/2023 9:15 AM EDT Hospital Encounter [facility] [address] [place] [address] Harjeet Huffman MD [address] [facility] [address] [place] [address] Nonrheumatic aortic valve stenosis [facility] Comment on above: Nonrheumatic aortic valve stenosis Start: 12-25-2023 End: 12-25-2023 TRANSCATHETER AORTIC VALVE REPLACEMENT (TAVR) - OR TRANSCATHETER AORTIC VALVE REPLACEMENT (TAVR) - OR Nonrheumatic aortic valve stenosis 12/25/2023 9:15 AM EDT [facility] [employer] Start: 11-19-2023 COVID-19 Vaccine ( season) COVID-19 Vaccine () [facility] [employer] Start: 11-19-2023 COVID-19 Vaccine () COVID-19 Vaccine () [facility] [employer] Start: 11-19-2023 Influenza vaccination Influenza Vaccine (#1) [facility] [employer] Start: 03-20-2023 Medicare Advantage Annual Wellness Visit Medicare Advantage Annual Wellness Visit [facility] [employer] Start: 11-09-2020 Lipid panel Lipid Panel [employer] [employer] Start: 07-10-2017 End: 07-10-2017 Appointment Appointment [facility] Work Phone: Start: 01-05-2017 End: 01-09-2017 Nuclear stress test -Lexiscan Nuclear stress test -Lexiscan [facility] Work Phone: Start: 01-04-2017 End: 01-04-2017 Appointment Appointment [facility] Work Phone: Start: 01-03-2017 End: 01-05-2017 Nuclear stress test -exercise Nuclear stress test -exercise [facility] Work Phone: Start: 12-29-2016 End: 12-29-2016 ERIC REYES [facility] Work Phone: Start: 12-29-2016 End: 12-29-2016 Echocardiography Echocardiogram (complete) [facility] Work Phone: Start: 12-29-2016 End: 12-29-2016 Follow Up Appt 6 months Follow Up Appt 6 months [facility] Work Phone: Start: 12-29-2016 End: 12-29-2016 Nuclear stress test -exercise Nuclear stress test -exercise [facility] Work Phone: Start: 12-29-2016 End: 12-29-2016 Appointment Appointment [facility] Work Phone: Start: 12-15-2016 End: 12-15-2016 Appointment Appointment [facility] Work Phone: Start: 11-11-2016 End: 11-18-2015 *Hepatic Function Panel *Hepatic Function Panel [facility] Work Phone: Start: 11-11-2016 End: 11-18-2015 Lipid panel [AGGREGATE] *Lipid Profile CC PCP [facility] Work Phone: Start: 11-11-2016 End: 11-18-2015 *Hepatic Function Panel *Hepatic Function Panel [facility] Work Phone: Start: 11-11-2016 End: 11-18-2015 Lipid panel [AGGREGATE] *Lipid Profile CC PCP [facility] Work Phone: Start: 09-28-2016 End: 09-28-2016 Appointment Appointment [facility] Work Phone: Start: 05-26-2016 End: 05-26-2016 ERIC REYES [facility] Work Phone: Start: 05-26-2016 End: 05-26-2016 Follow Up Appt 6 months Follow Up Appt 6 months [facility] Work Phone: Start: 05-26-2016 End: 05-26-2016 ERIC REYES [facility] Work Phone: Start: 05-26-2016 End: 05-26-2016 Follow Up Appt 6 months Follow Up Appt 6 months [facility] Work Phone: Start: 11-10-2015 End: 11-12-2015 *Hepatic Function Panel *Hepatic Function Panel [facility] Work Phone: Start: 11-10-2015 End: 05-20-2016 ERIC REYES [facility] Work Phone: Start: 11-10-2015 End: 11-10-2015 Echocardiography Echocardiogram (complete) [facility] Work Phone: Start: 11-10-2015 End: 11-10-2015 Follow Up Appt 6 months Follow Up Appt 6 months [facility] Work Phone: Start: 11-10-2015 End: 11-12-2015 Lipid panel [AGGREGATE] *Lipid Profile CC PCP [facility] Work Phone: Start: 11-10-2015 End: 11-12-2015 *Hepatic Function Panel *Hepatic Function Panel [facility] Work Phone: Start: 11-10-2015 End: 05-20-2016 ERIC REYES [facility] Work Phone: Start: 11-10-2015 End: 11-10-2015 Echocardiography Echocardiogram (complete) [facility] Work Phone: Start: 11-10-2015 End: 11-10-2015 Follow Up Appt 6 months Follow Up Appt 6 months [facility] Work Phone: Start: 11-10-2015 End: 11-12-2015 Lipid panel [AGGREGATE] *Lipid Profile CC PCP [facility] Work Phone: Start: 1952 Depression Screening Depression Screening [facility] Start: 1940 Lipid panel Lipid Panel [facility] Start: 1940 Screening for osteoporosis Bone Density Scan [facility] End: 12-12-2023 CT Chest WO and CT angiogram Coronary arteries W contrast IV [facility] [employer] Work Phone: Comment on above: Once for 1 Occurrences starting 12/12/19 24 until 12/12/2023 ECG 12 lead - CLINIC PERFORMED ECG 12 lead - CLINIC PERFORMED CV ECG Routine Severe aortic stenosis 01/04/2024 11:54 AM EDT [employer] Work Phone: Patient Education [facility] Work Phone: Immunizations Immunization Date Immunization Notes Care Provider Fa [facility] 01-05-2023 influenza virus vaccine, unspecified formulation Thaddeus Mckeon MD Work Phone: [facility] [employer] 12-27-2017 influenza, injectabl e, quadrivalent, preservative free [facility] 12-27-2017 influenza, seasonal, injectable [facility] Payers Date Payer Category Payer Medicare UNKN 2024 Unknown 2024 Unknown [id number] 2024 Medicaid [id number] 2024 Self-pay [id number] 2023 Medicare [employer] MEDICA RE [employer] SECURE [id number] 2023-Present [address] [place] [address] Medicare HMO [id number] 2023 Medicare O [employer] SECURE [id number] 2016 Medicare [id number] Unknown [id number] 2.16.840.1.306695.3.579.2.462 Unknown [id number] 2.16.840.1.851606.3.579.2.462 Unknown [id number] 2.16.840.1.703646.3.579.2.462 Unknown [id number] 2.16.840.1.143153.3.579.2.462 Unknown [id number] 2.16.840.1.070205.3.579.2.462 Unknown [id number] 2.16.840.1.966024.3.579.2.462 Unknown [id number] 2.16.840.1.811552.3.579.2.462 Unknown [id number] 2.16.840.1.583200.3.579.2.462 Unknown [id number] 2.16.840.1.483242.3.579.2.462 Unknown [id number] 2.16.840.1.075609.3.579.2.462 Unknown [id number] 2.16.840.1.248270.3.579.2.462 Unknown [id number] 2.16.840.1.732162.3.579.2.462 Unknown [id number] 2.16.840.1.778308.3.579.2.462 Unknown [id number] 2.16.840.1.198266.3.579.2.462 Unknown [id number] 2.16.840.1.238079.3.579.2.462 Unknown [id number] 2.16.840.1.838004.3.579.2.462 Unknown [id number] 2.16.840.1.347353.3.579.2.462 Unknown [id number] 2.16.840.1.454037.3.579.2.462 Unknown [id number] 2.16.840.1.621649.3.579.2.462 Unknown [id number] 2.16.840.1.832960.3.579.2.462 Unknown [id number] 2.16.840.1.870015.3.579.2.462 Unknown [id number] 2.16.840.1.006355.3.579.2.462 Unknown [id number] 2.16.840.1.758654.3.579.2.462 Unknown [id number] 2.16.840.1.451621.3.579.2.462 Unknown [id number] 2.16.840.1.754714.3.579.2.462 Unknown [id number] 2.16.840.1.008168.3.579.2.462 Unknown [id number] 2.16.840.1.818516.3.579.2.462 Unknown [id number] 2.16.840.1.209011.3.579.2.462 Unknown [id number] 2.16.840.1.856794.3.579.2.462 Unknown [id number] 2.16.840.1.162427.3.579.2.462 Unknown [id number] 2.16.840.1.160182.3.579.2.462 Unknown [id number] 2.16.840.1.772724.3.579.2.462 Unknown [id number] 2.16.840.1.358069.3.579.2.462 Unknown [id number] 2.16.840.1.503133.3.579.2.462 Unknown [id number] 2.16.840.1.840984.3.579.2.462 Unknown [id number] 2.16.840.1.411613.3.579.2.462 Unknown [id number] 2.16.840.1.221478.3.579.2.462 Unknown [id number] 2.16.840.1.245386.3.579.2.462 Unknown [id number] 2.16.840.1.488196.3.579.2.462 Social History Date Type Detail Facility Start: 03-04-2021 Tobacco smoking stat [facility] Unknown if ever smoked [facility] Start: 12-28-2017 Non-smoker [facility] Start: 1940 Sex Assigned At Female W [facility] Start: 2023 End: 01-10-2024 Tobacco smoking status [facility] Never smoked tobacco [facility] Start: 2023 Tobacco use and exposure Smokeless tobacco non-user [facility] Start: 11-21-2023 End: 01-04-2024 Alcoholic beverage intake Lifetime non-drinker (finding) [facility] Start: 11-21-2023 End: 01-04-2024 History of Social function [facility] Start: 11-21-2023 End: 01-04-2024 Tobacco use panel [facility] Start: 1940 Sex assigned at Not on file [facility] Start: 10-18-2021 End: 06-25-2024 Sex Female (finding) [facility] Medical Equipment Procedure Code Equipment [...] Valve Aor Soumya 3 Ultra 23mm - [id number] - [id number] Start: 12-25-2023 Comment on above: Description: [id number] Device Perclose Prostyle - [id number] Start: 12-25-2023 Device Perclose Prostyle - [id number] Start: 12-25-2023 DOUGH,CEMENT 6191-1-010 FDA Start: [...] Note Records [facility] and scanned under [facility] Miscellaneous Notes Records received and scanned under Media I called [facility] and she requested me to fax med recs release to [phone] I faxed this morning. Confirmed 04/02 at 5:45p I spoke w/ Juana in Dr. Garces's office, asking for echo order to be faxed. I placed Teofilo brennan DNP to sign, order needs faxed to Juana's attention @ [phone]. Time frame dates given to Juana for completion of OV/EKG/echo. KCCQ mailed to pt. ----- Message from JEREMIE Saldaña CNP sent at 01/04/2024 1:51 PM EDT ----- Please call [facility] office and advise regarding registry requirements of one month and one yr appts and echo. Will likely need phone call for KCCQ. documented in this encounter [facility] 04-01-2024 Telephone encounter Note I called [facility] and she requested me to fax med recs release to [phone] I faxed this morning. Confirmed 04/02 at 5:45p [facility] 04-01-2024 Miscellaneous Notes I called [facility] and she requested me to fax med recs release to [phone] I faxed this morning. I spoke w/ Juana in Dr. Garces's office, asking for echo order to be faxed. I placed order, Teofilo David DNP to sign, order needs faxed to Juana's attention @ [phone]. Time frame dates given to Juana for completion of OV/EKG/echo. KCCQ mailed to pt. ----- Message from JEREMIE Saldaña CNP sent at 01/04/2024 1:51 PM EDT ----- Please call [facility] office and advise regarding registry requirements of one month and one yr appts and echo. Will likely need phone call for KCCQ. documented in this encounter [facility] 04-01-2024 Miscellaneous Notes I called [facility] and she requested me to fax med recs release to [phone] I faxed this morning. Confirmed 04/02 at 5:45p I spoke w/ Juana in Dr. Garces's office, asking for echo order to be faxed. I placed Teofilo brennan DNP to sign, order needs faxed to Juana's attention @ [phone]. Time frame dates given to Juana for completion of OV/EKG/echo. KCCQ mailed to pt. ----- Message from JEREMIE Saldaña CNP sent at 01/04/2024 1:51 PM EDT ----- Please call [facility] office and advise regarding registry requirements of one month and one yr appts and echo. Will likely need phone call for KCCQ. documented in this encounter [facility] 01-04-2024 Telephone encounter Note I spoke w/ Juana in Dr. Garces's office, asking for echo order to be faxed. I placed Teofilo brennan DNP to sign, order needs faxed to Juana's attention @ [phone]. Time frame dates given to Juana for completion of OV/EKG/echo. KCCQ mailed to pt. [facility] 01-04-2024 Telephone encounter Note ----- Message from JEREMIE Saldaña CNP sent at 01/04/2024 1:51 PM EDT ----- Please call [facility] office and advise regarding registry requirements of one month and one yr appts and echo. Will likely need phone call for KCQ. [facility] 01-04-2024 History of Present illness Narrative Images from the original note were not included. [facility] [place] [address] [facility] [address] Dept: [phone] Dept Visit type: Established : 1940 Reason for Visit: Cardiac Valve Problem (One week post TAVR) Assessment and Plan 1. Chronic atrial fibrillation (HCC). HR stable. Continue Apixaban 2. Severe aortic stenosis. S/p tAVR. Continue Eliquis. Will contact [facility] regarding follow up and registry requirements. SBE prophylaxis. Plan echo in one month 3. Stage 3a chronic kidney disease (HCC). Renal function remains stable post procedure. Advised that kidney function should be followed senior care. GFR 27--> 46 4. Left heart failure (HCC). Improved after TAVR, EF 30%--> 50 %, continue furosemide, Aldactone, Farxiga, metoprolol (allerg to landon/ARB) Plan follow up in [facility] Subjective Ms Call is an 83 yr old female with a PMH of permanent AF, HFrEF, HTN, HPL, CKD stage 3b, obesity, GERD, and severe with EF 30%, mean and peak gradients 49/71 mm Hg. She underwent cardiac cath at [facility] which showed non obstructive CAD. She underwent [...] wrist complaints. She wishes to follow in [facility] as travel is difficult for her Allergies [...] Hypokalemia LVH (left ventricular hypertrophy) Morbid obesity ([facility]) Osteoarthritis Vitamin D deficiency Social History Tobacco Use Smoking status: Never Smokeless tobacco: Never Substance Use Topics Alcohol use: Never Past Surgical History: Procedure Laterality Date APPENDECTOMY CARDIAC CATHETERIZATION N/A 12/25/2023 Performed by Harjeet Huffman MD at [facility] OR CATARACT EXTRACTION HYSTERECTOMY No [...] CNP documented in this encounter [facility] 12-26-2023 Nurse Note Discharge instructions given to patient and daughter. Patient verbalizes understanding of medication changes and follow up appointments, and activity restrictions. Discharged to home with daughter. [facility] 12-26-2023 Nurse Note Discharge instructions given to patient and daughter. Patient verbalizes understanding of medication changes and follow up appointments, and activity restrictions. Discharged to home with daughter. documented in this encounter [facility] 12-26-2023 Note Attestation signed by [...] discharge. Referral has been made to the [facility] Outpatient Cardiac Rehabilitation Program. Last Labs: Lab Results Component Value Date WBC 11.6 (H) 12/26/2023 HGB 14.0 12/26/2023 HCT 43.0 12/26/2023 MCV 97.9 12/26/2023 PLT 154 10/ (more content not included)... [facility] 12-26-2023 Consult note Associated Order (s): IP CONSULT TO CARDIAC REHAB Received referral and reviewed chart. Phase II Cardiopulmonary Rehab Referral discussed with Brianne Call. Patient prefers cardiopulmonary rehab at [facility]. Given information on program at preferred location. [facility] 12-26-2023 Note Received referral an d reviewed chart. Phase II Cardiopulmonary Rehab Referral discussed with Brianne Call. Patient prefers cardiopulmonary rehab at [facility]. Given information on program at preferred location. [facility] 12-26-2023 Consult note Associated Order (s): IP CONSULT TO CARDIAC REHAB Received referral and reviewed chart. Phase II Cardiopulmonary Rehab Referral discussed with Brianne Call. Patient prefers cardiopulmonary rehab at [facility]. Given information on program at preferred location. documented in this encounter [facility] 12-26-2023 Note Atrial fibrillation Poor R wave progression, CONSIDER ANTERIOR INFARCT ST and T abnormality Electronically Signed On 12-26-2023 09:21:43 EDT by Austin Carmona [facility] 12-26-2023 Note Atrial fibrillation Poor R wave progression, CONSIDER ANTERIOR INFARCT ST and T abnormality Electronically Signed On 12-26-2023 09:21:43 EDT by Austin Carmona [facility] 12-26-2023 Note IMPRESSION: Atrial fibrillation Poor R wave progression, CONSIDER ANTERIOR INFARCT ST and T abnormality Electronically Signed On 12-26-2023 09:21:43 EDT by Austin Pitkin [facility] 12-25-2023 Hospital Discharge instructions JEREMIE Ruiz CNP - 12/25/2023 12:24 PM EDT - Please call the [facility] with any questions: [phone] -You will have have the following follow [...] unless otherwise specified. documented in this encounter [facility] 12-25-2023 Note Patient: Brianne reynolds Procedure Summary Date: 12/25/23 Room / Location: [facility] Operating Room Anesthesia Start: 945 Anesthesia Stop: [...] once all PACU criteria has been met. [facility] 12-25-2023 Note Patient: Brianne reynolds Procedure Summary Date: 12/25/23 Room / Location: [facility] Operating Room Anesthesia Start: 945 Anesthesia Stop: [...] opportunity for questions and acknowledgement of understanding. [facility] 12-25-2023 Note Arterial Line: Date/Time: 12/25/2023 [...] Performed: Other Other staff: Harjeet Huffman MD [facility] 12-25-2023 Note Formatting of this n [...] The valve was passed through the 14 Mozambican sapient E sheath into the descending thoracic [...] patient was decannulated transferred stable to recovery. [employer] Phone: 12-25-2023 Note Formatting of this n ote might be different from the original. Date of surgery 12/25/2023 Cardiothoracic Surgeon: Tien Cornell MD, [facility] Preoperative diagnosis: Severe, symptomatic aortic [...] The valve was passed through the 14 [place] sapient E sheath into the descending thoracic [...] patient was decannulated transferred stable to recovery. [employer] Phone: 12-25-2023 Miscellaneous Notes Date of surgery [...] The valve was passed through the 14 [place] sapient E sheath into the descending thoracic [...] stable to recovery. documented in this encounter [facility] 12-25-2023 Attending History and physical note H&P reviewed. The patient was examined and there are no changes to the H&P. Source Note - Arlene Velez APRN - [employer] - 12/22/2023 12:39 PM EDT Images from the original note were not included. H+ P copied to chart from (office provider's name Mónica David APRN) progress note dated 12/12/23 on behalf of (procedural physician's name Dr. Huffman). Expand All Collapse All [facility] [place] [address] [place] [address] Dept: [phone] Dept Visit type: Established : 1940 Reason [...] mm Hg. She underwent cardiac cath at [facility] which showed non obstructive CAD. He kidney [...] mg IntraVENous Once Mónica David APRN - [place] PAINTER sodium chloride 0.9 % bolus 500 mL [...] Independent interpretation of tests: JEREMIE Ruiz CNP [employer] Phone: 12-25-2023 History and physical note H&P [...] name Dr. Huffman). Expand All Collapse All [facility] [place] [address] [facility] [address] Dept: [phone] Dept Visit type: Established : 1940 Reason [...] mm Hg. She underwent cardiac cath at [facility] which showed non obstructive CAD. He kidney [...] CNP documented in this encounter [facility] 12-25-2023 Note H&P reviewed. The pa camden was examined and there are no changes to the H&P. [facility] 12-22-2023 History and physical note Images from the original note were not included. H+ P copied to chart from (office provider's name Mónica David APRN) progress note dated 12/12/23 on behalf of (procedural physician's name Dr. Huffman). Expand All Collapse All [facility] [place] [address] [place] [address] Dept: [phone] Dept Visit type: Established : 1940 Reason [...] mm Hg. She underwent cardiac cath at [facility] which showed non obstructive CAD. He kidney [...] mg IntraVENous Once Mónica David APRN - [employer] PAINTER sodium chloride 0.9 % bolus 500 mL [...] interpretation of tests: Mónica David APRN - [place] PAINTER Associated attestation - Harjeet Huffman MD - [...] We will proceed with the planned procedure. [facility] 12-22-2023 History and physical note Images from the original note were not included. H+ P copied to chart from (office provider's name Mónica David APRN) progress note dated 12/12/23 on behalf of (procedural physician's name Dr. Huffman). Expand All Collapse All [facility] - [address] [address] Dept: [phone] Dept Visit type: Established : 1940 Reason [...] mm Hg. She underwent cardiac cath at [facility] which showed non obstructive CAD. He kidney [...] mg IntraVENous Once Mónica David APRN - [place] PAINTER sodium chloride 0.9 % bolus 500 mL [...] interpretation of tests: Mónica David APRN - [place] PAINTER Associated attestation - Harjeet Huffman MD - [...] the planned procedure. documented in this encounter [facility] 12-22-2023 Note Attestation signed by [...] name Dr. Huffman). Expand All Collapse All [facility] [place] [address] [facility] [address] Dept: [phone] Dept Visit type: Established : 1940 Reason [...] mm Hg. She underwent cardiac cath at [facility] which showed non obstructive CAD. He kidney [...] spironolactone (Aldactone) 25 (more content not included)... [facility] 12-22-2023 Note Attestation signed by Harjeet [...] name Dr. Huffman). Expand All Collapse All [facility] - [address] [address] Dept: [phone] Dept Visit type: Established : 1940 Reason [...] mm Hg. She underwent cardiac cath at [facility] which showed non obstructive CAD. He kidney [...] spironolactone (Aldactone) 25 (more content not included)... [facility] 12-21-2023 Note Pre TAVR phone call placed. Reviewed, procedure, instructions and meds. Confirmed Eliquis, and Dye Allergy Prep med instructions. Pt verbalizes understanding. Pt knows to call [phone] with any concerns. Teofilo Velez CNP notified for prep for procedure orders. Diagnosis: Procedure being done: TF TAVR Date/time of procedure: 12/25/2023 @ 9:15 am Surgeon: Dr. Huffman 2nd surgeon: Dr. Olsen Admission type: To be admitted Anesthesia: MAC Completed: H&P/BNP/CBC/CMP/CXR/EKG Date completed: BMP 12/19/23, 12/12/23 Additional orders Dye Allergy Prep [facility] 12-15-2023 Note Patient: Brianne reynolds Procedure Information Date/Time: 12/25/23914 Procedures: TRANSCATHETER AORTIC VALVE REPLACEMENT, TRANSTHORACIC ECHOCARDIOGRAM TRANSCATHETER AORTIC VALVE REPLACEMENT, TRANSTHORACIC ECHOCARDIOGRAM (Chest) Location: [facility] Operating Room Surgeons: Harjeet Huffman MD; Juan [...] Records in media Carolina Waldron APRN - [employer] PAINTER JOB Screening Labs: Lab Results Component Value [...] 71 mmHg Equipment Requests: Additional Equipment Requests [facility] 12-12-2023 History of Present illness Narrative Pts symptoms of the reaction have all gone away. Pt states she feels back to normal. Pt came back from CT and pts face is red and she states she is starting to progressively get itchy. Mónica David NP is here at this time and order medications. documented in this encounter [facility] 12-12-2023 History of Present illness Narrative Images from the original note were not included. [facility] [place] [address] [facility] [address] Dept: [phone] Dept Visit type: Established : 1940 Reason [...] mm Hg. She underwent cardiac cath at [facility] which showed non obstructive CAD. He kidney [...] mg IntraVENous Once Mónica David APRN - [place] PAINTER sodium chloride 0.9 % bolus 500 mL [...] CNP documented in this encounter [facility] 12-12-2023 Note Pt came back from CT and pts face is red and she states she is starting to progressively get itchy. Mónica David RANGER AIDE is here at this time and order medications. [facility] 12-06-2023 Note Message reviewed. Re commend CTA with IV hydration. Can get pre procedure labs at time of CTA. [facility] 11-21-2023 History of Present illness Narrative Images from the original note were not included. [facility] [address] [facility] [address] Dept: [phone] Dept Loc: [phone] Today's Visit Location: TAVR (transcather aortic valve replacement) Clinic [facility] [address] [place] [address] Visit type: Senior Health Assessment at TAVR [...] agree with cardiology plan as discussed with big data hadoop developer Dr. Huffman and CTS Dr. Reed on [...] Patient has already named her Power of Maintenance Repairer for Healthcare and Finances (Both are her daughter Shama López) I recommended patient follow-up with [facility] (phone: [phone] fax: [phone]) as needed for memory testing. 4. Drug-induced [...] Mean Gradient of 49. Dr. Garces in [facility]. No aortic valve area mentioned. A fib [...] no=0 points)0 - patient rents room from [facility]. Rajiv (son) lives w pt Reduce [...] [] Daughter Shama López (financial Power of Maintenance Repairer) is on bank acct but patient manages [...] phrases are mis-transcribed.) documented in this encounter [facility] 11-21-2023 Instructions Thaddeus Mckeon MD - 11/21/2023 3:30 PM EDT GERIATRICS DISCHARGE INSTRUCTIONS: Follow-up with [facility] (phone: [phone] fax: [phone]) as needed for memory testing. Please BEGIN [...] risk of falls. documented in this encounter [facility] 11-21-2023 Evaluation + Plan note Associated Problem(s): Drug-induced bradycardia HR 58 bpm today but no syncope, presyncope, falls Patient asymptomatic today Patient taking lopressor 12.5mg po bid - I encouraged patient to discuss with her cardiologists/PCP (primary care provider) regarding change of meds given her advanced age and increased risk of falls [facility] 11-21-2023 Miscellaneous Notes Associated Problem(s): [...] Patient has already named her Power of Maintenance Repairer for Healthcare and Finances (Both are her daughter Shama López) I recommended patient follow-up with [facility] (phone: [phone] fax: [phone]) as needed for memory testing. Associated Problem(s): [...] Mean Gradient of 49. Dr. Garces in [place]. No aortic valve area mentioned. I agree with cardiology plan as discussed with big data hadoop developer Dr. Huffman and CTS Dr. Reed on same date regarding next steps for further workup/treatment of cardiac disease which likely includes heart cath +/- TAVR. On this date of evaluation, the patient has sufficient understanding of procedure(s) to consent to the procedure(s) being discussed and has adequate social support(s). documented in this encounter [facility] 11-21-2023 History of Present illness Narrative Images from the original note were not included. [facility] Medical Group: Cardiothoracic Surgery Multidisciplinary Heart Valve Clinic Date: 11/21/23 Patient:Brianne Call 1940 83 y.o. female [id number] Subjective: HPI: Brianne Call 83 y.o. referred [...] the near future. Given her proximity to [facility], she would prefer LHC performed there. [...] other diagnostic images. documented in this encounter [facility] 11-21-2023 Evaluation + Plan note Associated Problem(s): Short-term memory loss Chronic Patient with occasional word-finding difficulties I suspect either normal memory loss for aging or possibly MCI (Mild Cognitive Impairment) Patient has already named her Power of Maintenance Repairer for Healthcare and Finances (Both are her daughter Shama López) I recommended patient follow-up with [facility] (phone: [phone] fax: [phone]) as needed for memory testing. [facility] 11-21-2023 Evaluation + Plan note Associated Problem(s): Chronic atrial fibrillation (HCC) Chronic; Stable Asymptomatic May be nearing renal (kidney) dysfunction requiring reduced dose of eliquis (given Cr nearly 1.5 in past and patient's age >80 yo). May need eliquis 2.5mg po bid instead of 5mg po bid in future pending renal (kidney) function [facility] 11-21-2023 Evaluation + Plan note [...] not missing or doubling up on meds [facility] 11-21-2023 Evaluation + Plan note Associated Problem(s): Nonrheumatic aortic valve stenosis S/p AV replacement by Dr. Nagy in 201209/22/23 Transthoracic Echo (TTE) noted severe aortic stenosis. Mean Gradient of 49. Dr. Garces in [place]. No aortic valve area mentioned. I agree with cardiology plan as discussed with big data hadoop developer Dr. Huffman and CTS Dr. Reed on same date regarding next steps for further workup/treatment of cardiac disease which likely includes heart cath +/- TAVR. On this date of evaluation, the patient has sufficient understanding of procedure(s) to consent to the procedure(s) being discussed and has adequate social support(s). [facility] 11-21-2023 History of Present illness Narrative Images from the original note were not included. [facility] [address] [facility] [facility] [address] Dept: [phone] Dept Visit type: New : 1940 Reason for Visit: Cardiac Valve Problem Assessment and Plan 1. LV dysfunction 2. Stenosis of prosthetic aortic valve, initial encounter - ECG 12 lead - CLINIC PERFORMED This is a very pleasant 83 y.o. 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 she is clearly in need of aortic valve replacement, likely [id number] TAVR. Will need a diagnostic cath first, [...] Harjeet Huffman MD documented in this encounter [facility] 11-16-2023 Note Received fax referra l to Heart Valve Clinic from Dr. Garces @ [facility]. I spoke w/ [place], echo images to be pushed to PACS, she will fax lab work. I spoke w/ pt, appt scheduled. Chart made. [facility] Evaluation note No assessment inform ation available [facility] Work Phone: Evaluation note Diagnosis Nonrheumatic aortic valve stenosis- Primary Chronic atrial fibrillation (HCC) Atrial fibrillation Short-term memory loss Memory loss Drug-induced bradycardia Polypharmacy Issue of repeat prescriptions [facility] Diagnosis Stenosis of prosthetic aortic valve, initial encounter- Primary documented in this encounter [facility]* Diagnosis LV dysfunction- Primary Left heart failure Stenosis of prosthetic aortic valve, initial encounter documented in this encounter [facility] [employer] [facility] note* Diagnosis Nonrheumatic aortic valve stenosis- Primary Chronic atrial fibrillation (HCC)- Primary Atrial fibrillation Nonrheumatic aortic valve stenosis Adverse effect of contrast media, initial encounter Nonrheumatic aortic valve stenosis documented in this encounter [facility]* Diagnosis Nonrheumatic aortic valve stenosis- Primary Renal failure, unspecified chronicity Stenosis of prosthetic aortic valve, initial encounter Nonrheumatic aortic valve stenosis documented in this encounter [facility]* Diagnosis Nonrheumatic aortic valve stenosis- Primary Nonrheumatic aortic valve stenosis Nonrheumatic aortic valve stenosis documented in this encounter [facility]* Diagnosis Nonrheumatic aortic valve stenosis- Primary Severe aortic stenosis- Primary Aortic valve disorders Nonrheumatic aortic valve stenosis documented in this encounter [facility]* Diagnosis Severe aortic stenosis- Primary Aortic valve disorders documented in this encounter [facility]* Diagnosis Nonrheumatic aortic valve stenosis- Primary Severe aortic stenosis Aortic valve disorders Severe aortic stenosis Aortic valve disorders Nonrheumatic aortic valve stenosis documented in this encounter [facility] [employer] [facility]* Diagnosis Chronic atrial fibrillation (HCC)- Primary Atrial fibrillation Severe aortic stenosis Aortic valve disorders Stage 3a chronic kidney disease (HCC) Left heart failure (HCC) Left heart failure documented in this encounter [facility] [employer]* Diagnosis Nonrheumatic aortic valve stenosis- Primary Chronic atrial fibrillation (HCC) Atrial fibrillation Short-term memory loss Memory loss Drug-induced bradycardia Polypharmacy Issue of repeat prescriptions S/P TAVR (transcatheter aortic valve replacement) [facility] Diagnosis Nonrheumatic aortic valve stenosis- Primary Chronic atrial fibrillation (HCC) Atrial fibrillation Short-term memory loss Memory loss Drug-induced bradycardia Polypharmacy Issue of repeat prescriptions S/P TAVR (transcatheter aortic valve replacement) documented [facility])No reason for referral information [facility] Work Phone: Family History No [...] Yes December 26 8 12:21pm Power of Maintenance Repairer Yes December 26 12:21pm Date Activated Date [...] CTA Angiogram TAVR Arlene Velez APRN - [employer] [address] [place] [address] Referral ID Status Reason Start Date Expiration Date Visits Re quested Visits Authorized [id number] Closed 12/07/2023 02/05/2024 1 1 Summary Purpose [...] LAB WORK July 02, 2024 5 :00am PRISON LAB WORK July 15, 2024 4 :00am LABWORK July 30, 2024 5:00a m Chief Complaint Admit Date PRISON LAB WORK June 18, 2024 5: 00am PRISON LAB WORK July 02, 2024 5 :00am PRISON LAB WORK July 15, 2024 4 :00am MONTHLY EXAM July 23, 2024 3:15pm LABWORK July 30, 2024 5:00a m PRISON LAB WORK August 14, 2024 5:0 0am PRISON LAB WORK August 27, 2024 5: 00am Chief Complaint Admit Date PRISON LAB WORK June 18, 2024 5: 00am PRISON LAB WORK July 02, 2024 5 :00am PRISON LAB WORK July 15, 2024 4 :00am MONTHLY EXAM July 23, 2024 3:15pm LABWORK July 30, 2024 5:00a m PRISON LAB WORK August 14, 2024 5:0 0am NEW CONCERN August 20, 2024 3:45p m PRISON LAB WORK August 27, 2024 5: 00am Chief Complaint Admit Date PRISON LAB WORK June 18, 2024 5: 00am PRISON LAB WORK July 02, 2024 5 :00am PRISON LAB WORK July 15, 2024 4 :00am MONTHLY EXAM July 23, 2024 3:15pm LABWORK July 30, 2024 5:00a m PRISON LAB WORK August 14, 2024 5:0 0am NEW CONCERN August 20, 2024 3:45p m PRISON LAB WORK August 27, 2024 5: 00am NEW CONCERN September 02, 2024 3:00 pm Chief Complaint Admit Date PRISON LAB WORK July 15, 2024 4 :00am MONTHLY EXAM July 23, 2024 3:15pm LABWORK July 30, 2024 5:00a m PRISON LAB WORK August 14, 2024 5:0 0am NEW CONCERN August 20, 2024 3:45p m PRISON LAB WORK August 27, 2024 5: 00am NEW CONCERN September 02, 2024 3:00 pm PRISON LAB WORK September 24, 2024 4:0 0am Monthly Exam October 01, 2024 4:50 pm LABWORK October 07, 2024 5:00 am PRISON LAB WORK October 09, 2024 5: 00am Chief Complaint Admit Date MONTHLY EXAM July 23, 2024 3:15pm LABWORK July 30, 2024 5:00a m PRISON LAB WORK August 14, 2024 5:0 0am NEW CONCERN August 20, 2024 3:45p m PRISON LAB WORK August 27, 2024 5: 00am NEW CONCERN September 02, 2024 3:00 pm PRISON LAB WORK September 24, 2024 4:0 0am Monthly Exam October 01, 2024 4:50 pm LABWORK October 07, 2024 5:00 am PRISON LAB WORK October 09, 2024 5: 00am PRISON LAB WORK October 22, 2024 5 :00am MONTHLY EXAM October 23, 2024 5:3 0pm Chief Complaint Admit Date PRISON LAB WORK August 27, 2024 5: 00am NEW CONCERN September 02, 2024 3:00 pm PRISON LAB WORK September 24, 2024 4:0 0am Monthly Exam October 01, 2024 4:50 pm LABWORK October 07, 2024 5:00 am PRISON LAB WORK October 09, 2024 5: 00am PRISON LAB WORK October 22, 2024 5 :00am MONTHLY EXAM October 23, 2024 5:3 0pm PRISON LAB WORK November 19 5:00am Additional Source [...] 30, 2024 End: July 30, 2024 Joe POTRILLO MD Attending Provider Active Start: July 30, [...] Provi guillermo, Attending Provider, Referring Provider Active Principal Software Engineer Relationship Specialty Start Date End Date Alvarado Hull MD [address] [place] [address] PCP - General Geriatric Medicine 11/21/23 Principal Software Engineer Relationship Specialty Start Date End Date Alvarado Hull MD [address] [place] [address] PCP - General Geriatric Medicine 11/21/23 Principal Software Engineer Relationship Specialty Start Date End Date Alvarado Hull MD [address] [place] [address] PCP - General Geriatric Medicine 11/21/23 Principal Software Engineer Relationship Specialty Start Date End Date Alvarado Hull MD [address] [place] [address] PCP - General Geriatric Medicine 11/21/23 Principal Software Engineer Relationship Specialty Start Date End Date Alvarado Hull MD [address] [place] [address] PCP - General Geriatric Medicine 11/21/23 Principal Software Engineer Relationship Specialty Start Date End Date Alvarado Hull MD [address] [place] [address] PCP - General Geriatric Medicine 11/21/23 Principal Software Engineer Relationship Specialty Start Date End Date Alvarado Hull MD [address] [place] [address] PCP - General Geriatric Medicine 11/21/23 Principal Software Engineer Relationship Specialty Start Date End Date Alvarado Hull MD [address] [place] [address] PCP - General Geriatric Medicine 11/21/23 Principal Software Engineer Relationship Specialty Start Date End Date Alvarado Hull MD [address] [place] [address] PCP - General Geriatric Medicine 11/21/23 Principal Software Engineer Relationship Specialty Start Date End Date Alvarado Hull MD [address] [place] [address] PCP - General Geriatric Medicine 11/21/23 Principal Software Engineer Relationship Specialty Start Date End Date Alvarado Hull MD [address] [place], [place] [id number] PCP - General Geriatric Medicine 11/21/23 Team Status: Inactive Member Role Status Dates Dr. Scott Hull MD Primary Care Provider Active Start: February 27, 2024 End: February 27, 2024 Sara Irizarry RANGER AIDE, RANGER AIDE-C Attending Provider Active Start: February 27, 2024 [...] Provider Active Start: March 08, 2024 Joe POTRILLO MD Attending Provider Active Start: March 08, [...] 2024 End: March 15, 2024 Sara Irizarry RANGER AIDE, RANGER AIDE-C Attending Provider Active Start: March 15, 2024 [...] 2024 End: August 20, 2024 Sara Irizarry RANGER AIDE, RANGER AIDE-C Attending Provider Active Start: August 20, 2024 [...] 2024 End: September 02, 2024 Sara Irizarry RANGER AIDE, RANGER AIDE-C Attending Provider Active Start: September 02, 2024 [...] End: August 20, 2024 Sara Irizarry NP RANGER AIDE-C Attending Provider Active Start: August 20, 2024 [...] 2024 End: September 02, 2024 Sara Irizarry RANGER AIDE, RANGER AIDE-C Attending Provider Active Start: September 02, 2024 [...] Provider Active Start: August 14, 2024 Joe OPRTILLO MD Attending Provider Active Start: August 14, 2024 Team Status: Inactive Member Role/Relationship Status Dates Dr. Scott Hull MD Primary Care Provider Active Start: August 20, 2024 End: August 20, 2024 Sara Irizarry NP RANGER AIDE-C Attending Provider Active Start: August 20, 2024 [...] End: September 02, 2024 Sara Irizarry NP RANGER AIDE-C Attending Provider Active Start: September 02, 2024 [...] End: October 23, 2024 Sara Irizarry NP RANGER AIDE-C Attending Provider Active Start: October 23, 2024 [...] End: September 02, 2024 Sara Irizarry NP RANGER AIDE-C Attending physician Active Start: September 02, 2024 [...] 2024 End: October 01, 2024 Dr. Joe Snachez MD Attending physician Active Start: October 01, [...] End: October 23, 2024 Sara Irizarry NP, RANGER AIDE-C Attending physician Active Start: October 23, 2024 [...] REQUEST INFUSION TREATMENT Harjeet Huffman MD [address] [place] [address] [address] [place] [address] Referral ID Status Reason Start Date Expiration Date Visits Re quested Visits Authorized [id number] Closed 12/12/2023 12/06/2024 1 1 Specialty Diagnoses / Procedures Referred By Contac t Referred To Contact Radiology Diagnoses Nonrheumatic aortic valve stenosis Procedures CTA Angiogram TAVR Arlene Velez APRN - CNP [address] [place] [address] Referral ID Status Reason Start Date Expiration Date Visits Re quested Visits Authorized [id number] Closed 12/07/2023 02/05/2024 1 1 Specialty Diagnoses / Procedures Referred By Contac t Referred To Contact Diagnoses Nonrheumatic aortic valve stenosis Procedures TRANSCATHETER AORTIC VALVE REPLACEMENT, TRANSTHORACIC ECHOCARDIOGRAM TRANSCATHETER AORTIC VALVE REPLACEMENT, TRANSTHORACIC ECHOCARDIOGRAM Harjeet Huffman MD [address] [facility] [address] [place] [address] [address] [place] [address] Referral ID Status Reason Start Date Expiration Date Visits Re quested Visits Authorized [id number] 1 1 Reason Comments Cardiac Valve Problem [...] (Given - Provider: Edgar Warner APRN - [employer]OOKER CLE[employer]ER) dapagliflozin (Farxiga) tablet 10 mg 10 mg, [...] content) DATE CREATED AUTHOR 04/04/2024 [facility] DATE CREATED AUTHOR [facility] 01/30/2025 [facility] FOR RECORDS PERTAINING TO PATIENTS WHO [...] BE BASED ON THE PRIMARY CLINICAL RECORDS. [employer] provides no warranty or guarantee of the accuracy or completeness of information in this document.
[2025-03-18 07:56] LABS: Hematocrit 42.3 % (37-47); Hemoglobin 13.9 g/dL (12.0-15.0); Immature Granulocytes Count 0.050 X10^3/uL (0.0-0.0); Mean Corp Hgb Conc 32.9 g/dL (32-36); Mean Corpuscular Volume 96.1 fL (81-99); Mean Platelet Vol. 11.9 fl (6.2-12.0); NRBC Flagged by Analyzer 0 % (0-5); Platelet Count 222 K/mm3 (150-450); RBC Distribution Width CV 13.8 % (11.6-14.6); RBC Distribution Width SD 49.2 fl (35.1-43.9); Red Blood Count 4.40 M/mm3 (4.2-5.4); White Blood Count 6.7 K/mm3 (4.4-11.0)
[2025-03-18 08:08] LABS: Anion Gap 11 (7-18); BUN 19 mg/dL (4-19); BUN/Creat Ratio 10.6 RATIO (10-20); Calcium,Total 9.1 mg/dL (7.6-11.0); Carbon Dioxide 26.4 mmol/L (20.0-29.0); Chloride 100 mmol/L (96-106); Glucose 112 mg/dL (70-99); Potassium 4.0 mmol/L (3.5-5.1)
== END ==
LOC: OLS.WHLEAS 05:00
PROVIDERS: PCP Family Medicine Geriatric Medicine; Visit Provider Internal Medicine
DX: I69.351 Hemiplegia and hemiparesis following cerebral infarction affecting right dominant side (principal); I69.320 Aphasia following cerebral infarction; I69.398 Other sequelae of cerebral infarction; I69.391 Dysphagia following cerebral infarction; I10 Essential (primary) hypertension
CPT/HCPCS: 36415; 80048; 85025